=== PATIENT | female | born 1935 | race Caucasian/White ===

== ENCOUNTER 2016-08-27 13:22 | Observation (INO) | payer MEDICARE, OTHER ==
[2016-08-27] MEDS ORDERED: IBUPROFEN 800 MG TABLET PO ONE (14:08)
[2016-08-27 16:06] LABS: HEMATOCRIT 52.9 % (36.0-47.0); HEMOGLOBIN 16.7 g/dL (12.0-15.5); HGB HCT DIFFERENCE -2.8; MEAN CORPUSCULAR HGB CONC 31.6 g/dL (32.0-36.0); RED CELL DISTRIBUTION WIDTH 27.8 % (11.5-14.0)
[2016-08-27 16:19] LABS: ALANINE AMINOTRANSFERASE 37 U/L (9-52); ALBUMIN 3.4 g/dL (3.5-5.0); ALKALINE PHOSPHATASE 206 U/L (38-126); ANION GAP 12 (5-19); ASPARTATE AMINO TRANSFERASE 27 U/L (14-36); BLOOD UREA NITROGEN 18 mg/dL (7-20); CALCIUM 9.1 mg/dL (8.4-10.2); CARBON DIOXIDE 24 mmol/L (22-30); CHLORIDE 102 mmol/L (98-107); CREATININE RESULT 1.03 mg/dL (0.52-1.25); GLUCOSE 281 mg/dL (75-110); POTASSIUM 5.1 mmol/L (3.6-5.0); SODIUM 137.5 mmol/L (137-145)
[2016-08-27 16:40] LABS: RED BLOOD COUNT 7.59 10^6/uL (3.72-5.28)
[2016-08-27 16:41] LABS: MEAN CORPUSCULAR VOLUME 70 fl (80-97)
[2016-08-27 16:48] LABS: BAND NEUTROPHILS % (MANUAL) 5 % (3-5); BASOPHILS % (MANUAL) 0 % (0-2); EOSINOPHILS % (MANUAL) 1 % (0-6); LYMPHOCYTES % (MANUAL) 4 % (13-45); TOTAL CELLS COUNTED 100
[2016-08-27 16:52] LABS: ANISOCYTOSIS 3+; MICROCYTOSIS 2+; OVALOCYTES SLIGHT; POIKILOCYTOSIS SLIGHT; TOXIC VACUOLATION PRESENT
[2016-08-27 16:56] LABS: WHITE BLOOD COUNT 30.7 10^3/uL (4.0-10.5)
[2016-08-27 16:58] LABS: POLYCHROMASIA SLIGHT
[2016-08-27 17:01] LABS: APPEARANCE,URINE TURBID; BILIRUBIN,URINE NEGATIVE (NEGATIVE); GLUCOSE, URINE 150 mg/dL (NEGATIVE); KETONES,URINE NEGATIVE (NEGATIVE); LEUKOCYTE ESTERASE,URINE MODERATE (NEGATIVE); NITRITE,URINE NEGATIVE (NEGATIVE); PROTEIN,URINE 100 mg/dL (NEGATIVE); URINE SPECIFIC GRAVITY 1.016; UROBILINOGEN,URINE NEGATIVE mg/dL (<2.0)
[2016-08-27] MEDS ORDERED: ERTAPENEM SODIUM INJ 1 GM VIAL IV ONE (17:04)
[2016-08-27] MEDS ORDERED: NORMAL SALINE 1000 ML 1,000 ML IV ONE ×2 (17:04→17:18)
--- NOTE | 2016-08-27 17:07 | ER Document Report ---
ED General - General Chief Complaint: Urinary Problem Stated Complaint: PAINFUL URINATION Mode of Arrival: Medic Information source: Patient Notes: Patient presents to the emergency department with reports of pain with void that started yesterday. She reports she's vomited 3 times today. Denies diarrhea. She reports she woke up on the couch this morning is not sure how she got there. Patient has a history of stroke and diabetes cardiac disease. She denies cough chest pain shortness of breath. Patient reports that she has a history of sepsis when she has a UTI. TRAVEL OUTSIDE OF THE [place] IN LAST 30 DAYS: No - HPI Quality of pain: Achy, Burning Severity: Severe Pain Level: 4 Associated symptoms: Nausea, Vomiting Exacerbated by: Denies Relieved by: Denies Similar symptoms previously: Yes Recently seen / treated by doctor: No - Related Data Allergies/Adverse Reactions: amoxicillin Allergy (Intermediate, Verified 08/27/16 15:13) Penicillins Allergy (Verified 08/27/16 15:13) Past Medical History - General Information source: Patient - Social History Smoking Status: Unknown if Ever Smoked Cigarette use (# per day): No Chew tobacco use (# tins/day): No Frequency of alcohol use: None Drug Abuse: None Lives with: Family - Daughter Family History: Reviewed & Not Pertinent, DM, Hypertension, Malignancy - Father with lung cancer, Other - Past Medical History Cardiac Medical History: Reports: Hx Congestive Heart Failure - reports an acute episode previously, unsure of year, Hx Heart Attack - EKG suggests probable prior infarction, Hx Hypercholesterolemia, Hx Hypertension Endocrine Medical History: Reports: Hx Diabetes Mellitus Type 1, Hx Diabetes Mellitus Type 2 Renal/ Medical History: Denies: Hx End Stage Renal Disease GI Medical History: Reports: Hx Gastroesophageal Reflux Disease Musculoskeltal Medical History: Reports Hx Arthritis, Reports Hx Musculoskeletal Deformity Psychiatric Medical History: Reports: Hx Anxiety, Hx Depression Past Surgical History: Reports: Hx Abdominal Surgery, Hx Appendectomy, Hx Hysterectomy, Hx Tonsillectomy - Immunizations Hx Diphtheria, Pertussis, Tetanus Vaccination: No Hx Pneumococcal Vaccination: 04/29/13 Review of Systems - Review of Systems Notes: Review HPI for review of systems., All other systems negative Physical Exam - Vital signs Vitals: Temp Pulse Resp BP Pulse Ox 97.8 F 78 16 135/69 H 96 08/27/16 13:53 08/27/16 13:53 08/27/16 13:53 08/27/16 13:53 08/27/16 13:53 - Notes Notes: PHYSICAL EXAMINATION: GENERAL: Well-appearing and in no acute distress Nontoxic looking HEAD: Atraumatic, normocephalic. EYES: Pupils equal round extraocular movements intact, sclera anicteric, conjunctiva are normal. ENT: nares patent, oropharynx clear Moist mucous membranes. NECK: Normal range of motion, supple without lymphadenopathy LUNGS: CTAB and equal. No wheezes rales or rhonchi. HEART: Regular rate and rhythm without murmurs ABDOMEN: Soft, c/o some tenderness to palpation to LLQ No guarding, no rebound BACK: Denies pain EXTREMITIES: Normal range of motion, no pitting edema. No cyanosis. NEUROLOGICAL: Cranial nerves grossly intact. Normal sensory/motor exams. ambulates without problem PSYCH: Normal mood, normal affect. SKIN: Warm, Dry, normal turgor, no rashes or lesions noted Course - Re-evaluation Re-evalutation: 08/27/16 17:15 Patient's white count 30.7 no further vomiting. Patient reports her headache is gone. Contacted Dr. Celis for admission. He agrees to admission on telemetry. Rocephin IV ordered and fluids. Patient and daughter informed of admission and agree. - Vital Signs Vital signs: Temp Pulse Resp BP Pulse Ox 97.8 F 78 16 135/69 H 96 08/27/16 13:53 08/27/16 13:53 08/27/16 13:53 08/27/16 13:53 08/27/16 13:53 - Laboratory Result Diagrams: 08/27/16 15:50 08/27/16 15:50 Laboratory results interpreted by me: 08/27/16 08/27/16 08/27/16 15:00 15:50 15:50 WBC 30.7 H* RBC 7.59 H Hgb 16.7 H Hct 52.9 H MCV 70 L D MCH 22.0 L MCHC 31.6 L RDW 27.8 H Seg Neuts % (Manual) 86 H Lymphocytes % (Manual) 4 L Monocytes % (Manual) 2 L Abs Neuts (Manual) 27.9 H Potassium 5.1 H Est GFR (Non-Af Amer) 51 L Glucose 281 H Alkaline Phosphatase 206 H Albumin 3.4 L Urine Protein 100 H Urine Glucose (UA) 150 H Urine Blood SMALL H Ur Leukocyte Esterase MODERATE H - EKG Interpretation by Ms EKG shows normal: Sinus rhythm Discharge - Discharge Clinical Impression: UTI (urinary tract infection) Qualifiers: Urinary tract infection type: acute cystitis Hematuria presence: with hematuria Qualified Code(s): N30.01 - Acute cystitis with hematuria Condition: Stable Disposition: ADMITTED INPATIENT [facility] Unit Admitted: Telemetry
[2016-08-27] MEDS ORDERED: CEFTRIAXONE RTU 1 GM/D5W 50 ML IV ONE (17:10)
[2016-08-27] MEDS ORDERED: GLUCAGON,HUMAN RECOMB 1 MG INJ IM PRN (17:26)
[2016-08-27] MEDS ORDERED: ONDANSETRON HCL INJ/PF 4 MG/2 ML SDV IV PRN (17:26)
[2016-08-27] MEDS ORDERED: DEXTROSE 50%-WATER 25 GM/50 ML DISP.SYRIN IV PRN ×2 (17:26)
[2016-08-27] MEDS ORDERED: ACETAMINOPHEN 325 MG TABLET PO PRN (17:26)
[2016-08-27] MEDS ORDERED: DEXTROSE 40% GEL 15 GM TUBE PO PRN ×2 (17:26)
[2016-08-27] MEDS ORDERED: IMIPENEM/CILASTATIN SODIUM 1,000 MG in NORMAL SALINE 250 ML IV SCH (18:00)
[2016-08-27] MEDS ORDERED: ENOXAPARIN SODIUM INJ 40 MG/0.4 ML DISP.SYRIN SUBCUT ONE (18:00)
--- NOTE | 2016-08-27 18:02 | PDOC H&P ---
History of Present Illness Admission Date/PCP: 08/27/16 17:33 Dr. Rivera Patient complains of: Dysuria History of Present Illness: ORACIO PEDROZA is a 81 year old female with past medical history of recurrent urinary tract infections that presents with several days dysuria, polyuria. Patient was treated in June of this year for ESBL Escherichia coli urinary tract infection. Of note patient was also recently hospitalized at [facility] for stroke. She has very little deficits from the stroke. After this hospitalization she had a loop recorder placed by cardiology in [facility]. Patient also has chronic leukocytosis over the past 1-2 years. She is currently being followed by Dr. Mercer of hematology/oncology for this issue. Past Medical History Cardiac Medical History: Reports: Congestive Heart Failure - reports an acute episode previously, unsure of year, Myocardial Infarction - EKG suggests probable prior infarction, Hyperlipidema, Hypertension Neurological Medical History: Reports: Ischemic CVA Endocrine Medical History: Reports: Diabetes Mellitus Type 1 Renal/ Medical History: Denies: End Stage Renal Disease GI Medical History: Reports: Gastroesophageal Reflux Disease Musculoskeltal Medical History: Reports: Arthritis Psychiatric Medical History: Reports: Depression Hematology: Reports: Other - Chronic leukocytosis Infectious Medical History: Reports: Other - ESBL Escherichia coli Past Surgical History Past Surgical History: Reports: Appendectomy, Hysterectomy, Tonsillectomy, Other - Cardiac loop recorder Social History Information Source: Patient Lives with: Family - Daughter Smoking Status: Unknown if Ever Smoked Frequency of Alcohol Use: None Hx Recreational Drug Use: No Drugs: None Hx Prescription Drug Abuse: No - Advance Directive Resuscitation Status: Full Code Family History Family History: DM, Hypertension, Malignancy - Father with lung cancer, Other Parental Family History Reviewed: Yes Children Family History Reviewed: Yes Sibling(s) Family History Reviewed.: Yes Medication/Allergy Home Medications: Hum Insulin NPH/Reg Insulin Hm [Insulin 70-30 (NPH/Reg) 100 unit/mL] 85 unit SUBCUT BID 08/13/12 Aspirin [Aspirin 81 mg Chewable Tablet] 81 mg PO DAILY 05/19/14 Citalopram Hydrobromide [Celexa 20 mg Tablet] 40 mg PO DAILY 05/19/14 Sitagliptin Phosphate [Januvia] 100 mg PO DAILY 07/15/16 Trazodone HCl 50 mg PO QHS 07/15/16 Docusate Sodium [Colace 100 mg Capsule] 100 mg PO BID #0 capsule 07/20/16 Gabapentin [Neurontin 300 mg Capsule] 300 mg PO Q12 #0 capsule 07/20/16 Losartan Potassium [Cozaar 25 mg Tablet] 50 mg PO Q12 #0 tablet 07/20/16 Metoprolol Tartrate [Lopressor 100 mg Tablet] 100 mg PO Q12 #0 tablet 07/20/16 Allergies/Adverse Reactions: amoxicillin Allergy (Intermediate, Verified 08/27/16 15:13) Penicillins Allergy (Verified 08/27/16 15:13) Review of Systems Constitutional: ABSENT: chills, fever(s), headache(s), weight gain, weight loss Eyes: ABSENT: visual disturbances Ears: ABSENT: hearing changes Cardiovascular: ABSENT: chest pain, dyspnea on exertion, edema, orthropnea, palpitations Respiratory: ABSENT: cough, hemoptysis Gastrointestinal: ABSENT: abdominal pain, constipation, diarrhea, hematemesis, hematochezia, nausea, vomiting Genitourinary: PRESENT: difficulty urinating, dysuria. ABSENT: hematuria Musculoskeletal: ABSENT: joint swelling Integumentary: ABSENT: rash, wounds Neurological: ABSENT: abnormal gait, abnormal speech, confusion, dizziness, focal weakness, syncope Psychiatric: ABSENT: anxiety, depression, homidical ideation, suicidal ideation Endocrine: PRESENT: polyuria. ABSENT: cold intolerance, heat intolerance, polydipsia Hematologic/Lymphatic: ABSENT: easy bleeding, easy bruising Physical Exam Vital Signs: Temp Pulse Resp BP Pulse Ox 97.8 F 78 16 135/69 H 96 08/27/16 13:53 08/27/16 13:53 08/27/16 13:53 08/27/16 13:53 08/27/16 13:53 PHYSICAL EXAM: GENERAL: Appears well, no acute distress HEENT: Normocephalic, no scleral icterus, conjunctiva clear, EOEM intact, PERRLA , moist mucous membranes NECK: trachea midline, no thyromegally RESPIRATORY: Clear to auscultation, no wheezes/rhonchi CARDIAC: Regular rate and rhythm, no murmur/jimbo/rub ABDOMEN: Soft, no distension, no tenderness, no guarding, normal bowel sounds, negative Hodge sign RECTAL: deferred : deferred EXTREMITIES: No edema, cyanosis, clubbing MUSCULOSKELETAL: No joint swelling or deformity VASCULAR: normal peripheral pulses NEUROLOGIC: Alert, oriented to person/place/time, normal speech, cranial nerves grossly intact, 5/5 strength in all extremities, tactile sensation intact in all extremities SKIN: No rash, no wounds, no worrisome skin lesions PSYCHIATRIC: Normal mood, normal affect Results Laboratory Results: Labs- All tests 24 hr 08/27/16 08/27/16 08/27/16 14:27 14:27 14:27 WBC Cancelled RBC Cancelled Hgb Cancelled Hct Cancelled MCV Cancelled MCH Cancelled MCHC Cancelled RDW Cancelled Plt Count Cancelled Total Counted Seg Neutrophils % Cancelled Seg Neuts % (Manual) Band Neutrophils % Lymphocytes % Cancelled Lymphocytes % (Manual) Atypical Lymphs % Monocytes % Cancelled Monocytes % (Manual) Eosinophils % Cancelled Eosinophils % (Manual) Basophils % Cancelled Basophils % (Manual) Absolute Neutrophils Cancelled Abs Neuts (Manual) Absolute Lymphocytes Cancelled Abs Lymphs (Manual) Absolute Monocytes Cancelled Abs Monocytes (Manual) Absolute Eosinophils Cancelled Absolute Eos (Manual) Absolute Basophils Cancelled Abs Basophils (Manual) Toxic Vacuolation Platelet Estimate Cancelled Large Platelets Platelet Comment Polychromasia Poikilocytosis Anisocytosis Microcytosis Ovalocytes Sodium Cancelled Potassium Cancelled Chloride Cancelled Carbon Dioxide Cancelled Anion Gap Cancelled BUN Cancelled Creatinine Cancelled Est GFR ( Amer) Cancelled Est GFR (Non-Af Amer) Cancelled Glucose Cancelled Lactic Acid 1.6 Calcium Cancelled Total Bilirubin Cancelled Direct Bilirubin Cancelled AST Cancelled ALT Cancelled Alkaline Phosphatase Cancelled Total Protein Cancelled Albumin Cancelled Urine Color Urine Appearance Urine pH Ur Specific [place] Urine Protein Urine Glucose (UA) Urine Ketones Urine Blood Urine Nitrite Urine Bilirubin Urine Urobilinogen Ur Leukocyte Esterase Urine WBC (Auto) Urine RBC (Auto) Urine Bacteria (Auto) Urine WBC Clumps Squamous Epi Cells Auto U Non-Squamous Epis Auto Urine Mucus (Auto) Urine Ascorbic Acid Slides for Path Review Cancelled 08/27/16 08/27/16 08/27/16 15:00 15:50 15:50 WBC 30.7 H* RBC 7.59 H Hgb 16.7 H Hct 52.9 H MCV 70 L D MCH 22.0 L MCHC 31.6 L RDW 27.8 H Plt Count 321 Total Counted 100 Seg Neutrophils % Not Reportable Seg Neuts % (Manual) 86 H Band Neutrophils % 5 Lymphocytes % Not Reportable Lymphocytes % (Manual) 4 L Atypical Lymphs % 2 Monocytes % Not Reportable Monocytes % (Manual) 2 L Eosinophils % Not Reportable Eosinophils % (Manual) 1 Basophils % Not Reportable Basophils % (Manual) 0 Absolute Neutrophils Not Reportable Abs Neuts (Manual) 27.9 H Absolute Lymphocytes Not Reportable Abs Lymphs (Manual) 1.8 Absolute Monocytes Not Reportable Abs Monocytes (Manual) 0.6 Absolute Eosinophils Not Reportable Absolute Eos (Manual) 0.3 Absolute Basophils Not Reportable Abs Basophils (Manual) 0.0 Toxic Vacuolation PRESENT Platelet Estimate Large Platelets PRESENT Platelet Comment ADEQUATE Polychromasia SLIGHT Poikilocytosis SLIGHT Anisocytosis 3+ Microcytosis 2+ Ovalocytes SLIGHT Sodium 137.5 Potassium 5.1 H Chloride 102 Carbon Dioxide 24 Anion Gap 12 BUN 18 Creatinine 1.03 Est GFR ( Amer) > 60 Est GFR (Non-Af Amer) 51 L Glucose 281 H Lactic Acid Calcium 9.1 Total Bilirubin 1.0 Direct Bilirubin 0.0 AST 27 ALT 37 Alkaline Phosphatase 206 H Total Protein 7.0 Albumin 3.4 L Urine Color YELLOW Urine Appearance TURBID Urine pH 5.0 Ur Specific [place] 1.016 Urine Protein 100 H Urine Glucose (UA) 150 H Urine Ketones NEGATIVE Urine Blood SMALL H Urine Nitrite NEGATIVE Urine Bilirubin NEGATIVE Urine Urobilinogen NEGATIVE Ur Leukocyte Esterase MODERATE H Urine WBC (Auto) >182 Urine RBC (Auto) >182 Urine Bacteria (Auto) 2+ Urine WBC Clumps MANY Squamous Epi Cells Auto 17 U Non-Squamous Epis Auto 4 Urine Mucus (Auto) OCC Urine Ascorbic Acid NEGATIVE Slides for Path Review Assessment & Plan - Diagnosis (1) UTI (urinary tract infection) Qualifiers: Urinary tract infection type: acute cystitis Hematuria presence: with hematuria Qualified Code(s): N30.01 - Acute cystitis with hematuria Is this a current diagnosis for this admission?: YesPlan: Given patient's relatively recent ESBL Escherichia coli UTI I would like to admit her to the hospital and start her on IV imipenem pending further urine culture. (2) Leukocytosis Is this a current diagnosis for this admission?: YesPlan: This is chronic and being followed by Dr. Mercer of hematology/oncology. (3) Diabetes Qualifiers: Diabetes mellitus type: type 1 Is this a current diagnosis for this admission?: YesPlan: Continue 70/30 insulin but decrease to 60 units twice daily. Continue Januvia. Sliding scale insulin. Patient is overall poorly controlled as indicated by recent A1c of 10.1. (4) History of CVA (cerebrovascular accident) Is this a current diagnosis for this admission?: YesPlan: Patient has little functional deficit from this. Apparently she has had a loop recorder placed by cardiology in [place] to rule out transient dysrhythmia as potential cause. (5) Cholelithiasis Qualifiers: Cholelithiasis location: gallbladder Cholecystitis presence: without cholecystitis Biliary obstruction: without biliary obstruction Qualified Code(s): K80.20 - Calculus of gallbladder without cholecystitis without obstruction Is this a current diagnosis for this admission?: YesPlan: Asymptomatic at this time. (6) Chronic constipation Is this a current diagnosis for this admission?: Yes (7) Diastolic CHF Qualifiers: Congestive heart failure chronicity: chronic Qualified Code(s): I50.32 - Chronic diastolic (congestive) heart failure Is this a current diagnosis for this admission?: YesPlan: Chronic/compensated. (8) DNR (do not resuscitate) Is this a current diagnosis for this admission?: Yes (9) HTN (hypertension) Qualifiers: Hypertension type: essential hypertension Qualified Code(s): I10 - Essential (primary) hypertension Is this a current diagnosis for this admission?: Yes - Time Time Spent: Greater than 70 Minutes
[2016-08-27] MEDS: HUM INSULIN NPH/REG INSULIN HM 100 UNIT/1 ML 3 ML SUBCUT SCH (18:25)
[2016-08-27] MEDS: DOCUSATE SODIUM 100 MG CAPSULE PO SCH (18:25)
[2016-08-27] MEDS: IMIPENEM/CILASTATIN SODIUM 500 MG in NORMAL SALINE 100 ML IV SCH ×2 (20:34→23:23)
--- NOTE | 2016-08-27 21:06 | EKG REPORT ---
SEVERITY:- ABNORMAL ECG - SINUS RHYTHM PROBABLE INFERIOR INFARCT, OLD ANTERIOR INFARCT, AGE INDETERMINATE BORDERLINE PROLONGED QT INTERVAL : Confirmed by: Adam Bah MD 27-Aug-2016 21:06:13
[2016-08-27] MEDS ORDERED: LOSARTAN POTASSIUM 25 MG TABLET PO SCH (22:00)
[2016-08-27] MEDS: GABAPENTIN 300 MG CAPSULE PO SCH (23:21)
[2016-08-27] MEDS: LOSARTAN POTASSIUM 50 MG TABLET PO SCH (23:23)
[2016-08-27] MEDS: METOPROLOL TARTRATE 100 MG TABLET PO SCH (23:23)
[2016-08-27] MEDS: TRAZODONE HCL 50 MG TABLET PO SCH (23:23)
[2016-08-27] MEDS: INSULIN LISPRO 100 UNIT/ML 3 ML VIAL SUBCUT PRN (23:24)
[2016-08-28 06:19] LABS: HEMATOCRIT 50.8 % (36.0-47.0); HEMOGLOBIN 15.8 g/dL (12.0-15.5); HGB HCT DIFFERENCE -3.4; MEAN CORPUSCULAR HEMOGLOBIN 21.8 pg (27.0-33.4); MEAN CORPUSCULAR HGB CONC 31.1 g/dL (32.0-36.0); MEAN CORPUSCULAR VOLUME 70 fl (80-97); WHITE BLOOD COUNT 26.3 10^3/uL (4.0-10.5)
[2016-08-28] MEDS: IMIPENEM/CILASTATIN SODIUM 500 MG in NORMAL SALINE 100 ML IV SCH ×3 (06:22→17:39)
[2016-08-28 06:33] LABS: ANION GAP 10 (5-19); BLOOD UREA NITROGEN 24 mg/dL (7-20); CARBON DIOXIDE 23 mmol/L (22-30); CHLORIDE 107 mmol/L (98-107); CREATININE RESULT 1.15 mg/dL (0.52-1.25); GLUCOSE 208 mg/dL (75-110); POTASSIUM 4.6 mmol/L (3.6-5.0); SODIUM 140.1 mmol/L (137-145)
[2016-08-28 07:09] LABS: RED BLOOD COUNT 7.26 10^6/uL (3.72-5.28)
[2016-08-28] MEDS: ENOXAPARIN SODIUM INJ 40 MG/0.4 ML DISP.SYRIN SUBCUT SCH (07:36)
[2016-08-28] MEDS: INSULIN LISPRO 100 UNIT/ML 3 ML VIAL SUBCUT PRN ×3 (07:36→22:18)
--- NOTE | 2016-08-28 09:54 | PDOC PROGRESS REPORT ---
Subjective Progress Note for:: 08/28/16 Subjective:: Patient complains of intermittent lower abdominal discomfort. Patient denies fever, chills, headache, new focal weakness, chest pain, shortness of breath, nausea, vomiting, diarrhea, constipation. Physical Exam Vital Signs: Temp Pulse Resp BP Pulse Ox 98.3 F 90 20 173/68 H 97 08/28/16 07:58 08/28/16 07:58 08/28/16 07:58 08/28/16 07:58 08/28/16 07:58 Intake & Output 08/27/16 08/28/16 08/29/16 06:59 06:59 06:59 Intake Total 400 Balance 400 Weight 100 kg GENERAL: No acute distress HEENT: Conjunctiva clear, nonicteric, moist mucous membranes, no JVD, midline trachea RESPIRATORY: Clear to auscultation bilaterally, no wheezes, no rhonchi CARDIAC: Regular rate and rhythm, no murmurs/gallops/rubs ABDOMEN: Soft, nondistended, suprapubic tenderness, positive bowel sounds, no rebound, no guarding EXTREMETIES: No edema, cyanosis, clubbing NEUROLOGIC: Alert, oriented to person/place/time, CN's grossly intact, no focal deficits SKIN: No rash, wounds PSYCH: Normal mood, normal affect Results Laboratory Results: 08/28/16 05:28 08/28/16 05:28 08/28/16 08/28/16 05:28 05:28 WBC 26.3 H RBC 7.26 H Hgb 15.8 H Hct 50.8 H MCV 70 L MCH 21.8 L MCHC 31.1 L RDW 28.0 H Plt Count 282 Sodium 140.1 Potassium 4.6 Chloride 107 Carbon Dioxide 23 Anion Gap 10 BUN 24 H Creatinine 1.15 Est GFR ( Amer) 55 L Est GFR (Non-Af Amer) 45 L Glucose 208 H Calcium 9.0 Assessment & Plan - Diagnosis (1) UTI (urinary tract infection) Qualifiers: Urinary tract infection type: acute cystitis Hematuria presence: with hematuria Qualified Code(s): N30.01 - Acute cystitis with hematuria Is this a current diagnosis for this admission?: YesPlan: Given patient's relatively recent ESBL Escherichia coli UTI WE WILL CONTINUE IV imipenem pending further urine culture. (2) Leukocytosis Is this a current diagnosis for this admission?: YesPlan: This is chronic and being followed by Dr. Mercer of hematology/oncology. Improved from admission with treatment of UTI. (3) Diabetes Qualifiers: Diabetes mellitus type: type 1 Is this a current diagnosis for this admission?: YesPlan: Continue 70/30 insulin 60 units twice daily (usual home dose 85 units twice daily). Continue Januvia. Sliding scale insulin. Patient is overall poorly controlled as indicated by recent A1c of 10.1. (4) History of CVA (cerebrovascular accident) Is this a current diagnosis for this admission?: YesPlan: Patient has little functional deficit from this. Apparently she has had a loop recorder placed by cardiology in [place] to rule out transient dysrhythmia as potential cause. (5) Cholelithiasis Qualifiers: Cholelithiasis location: gallbladder Cholecystitis presence: without cholecystitis Biliary obstruction: without biliary obstruction Qualified Code(s): K80.20 - Calculus of gallbladder without cholecystitis without obstruction Is this a current diagnosis for this admission?: YesPlan: Asymptomatic at this time. (6) Chronic constipation Is this a current diagnosis for this admission?: Yes (7) Diastolic CHF Qualifiers: Congestive heart failure chronicity: chronic Qualified Code(s): I50.32 - Chronic diastolic (congestive) heart failure Is this a current diagnosis for this admission?: YesPlan: Chronic/compensated. (8) HTN (hypertension) Qualifiers: Hypertension type: essential hypertension Qualified Code(s): I10 - Essential (primary) hypertension Is this a current diagnosis for this admission?: Yes (9) Full code status Is this a current diagnosis for this admission?: YesPlan: CODE STATUS was readdressed with patient and daughter. Full CODE STATUS desired. - Time Time Spent with patient: 25-34 minutes
[2016-08-28] MEDS: GABAPENTIN 300 MG CAPSULE PO SCH ×2 (10:43→22:17)
[2016-08-28] MEDS: HUM INSULIN NPH/REG INSULIN HM 100 UNIT/1 ML 3 ML SUBCUT SCH ×2 (10:43→17:39)
[2016-08-28] MEDS: CITALOPRAM HYDROBROMIDE 20 MG TABLET PO SCH (10:44)
[2016-08-28] MEDS: SITAGLIPTIN PHOSPHATE 50 MG TABLET PO SCH (10:44)
[2016-08-28] MEDS: METOPROLOL TARTRATE 100 MG TABLET PO SCH ×2 (10:44→22:17)
[2016-08-28] MEDS: ASPIRIN 81 MG TABLET, CHEWABLE PO SCH (10:44)
[2016-08-28] MEDS: LOSARTAN POTASSIUM 50 MG TABLET PO SCH ×2 (10:45→22:17)
[2016-08-28] MEDS: DOCUSATE SODIUM 100 MG CAPSULE PO SCH ×2 (10:45→17:39)
[2016-08-28] MEDS: TRAZODONE HCL 50 MG TABLET PO SCH (22:17)
[2016-08-29] MEDS: IMIPENEM/CILASTATIN SODIUM 500 MG in NORMAL SALINE 100 ML IV SCH ×4 (00:18→17:06)
[2016-08-29 07:43] LABS: HEMATOCRIT 50.8 % (36.0-47.0); HEMOGLOBIN 15.7 g/dL (12.0-15.5); HGB HCT DIFFERENCE -3.7; MEAN CORPUSCULAR HEMOGLOBIN 21.7 pg (27.0-33.4); MEAN CORPUSCULAR HGB CONC 30.8 g/dL (32.0-36.0); MEAN CORPUSCULAR VOLUME 71 fl (80-97); RED CELL DISTRIBUTION WIDTH 27.8 % (11.5-14.0); WHITE BLOOD COUNT 26.5 10^3/uL (4.0-10.5)
[2016-08-29 07:49] LABS: BLOOD UREA NITROGEN 21 mg/dL (7-20); CALCIUM 10.1 mg/dL (8.4-10.2); CREATININE RESULT 0.99 mg/dL (0.52-1.25); GLUCOSE 251 mg/dL (75-110)
[2016-08-29 07:50] LABS: ANION GAP 11 (5-19); CARBON DIOXIDE 24 mmol/L (22-30); CHLORIDE 105 mmol/L (98-107); SODIUM 140.4 mmol/L (137-145)
[2016-08-29 08:02] LABS: RED BLOOD COUNT 7.22 10^6/uL (3.72-5.28)
[2016-08-29 08:06] LABS: BAND NEUTROPHILS % (MANUAL) 10 % (3-5); BASOPHILS % (MANUAL) 2 % (0-2); EOSINOPHILS % (MANUAL) 0 % (0-6); LYMPHOCYTES % (MANUAL) 5 % (13-45); TOTAL CELLS COUNTED 100
[2016-08-29 08:08] LABS: ANISOCYTOSIS 2+; HYPOCHROMASIA 1+; MICROCYTOSIS 2+; OVALOCYTES SLIGHT; POIKILOCYTOSIS 1+; TEAR DROP CELLS SLIGHT
[2016-08-29] MEDS: ENOXAPARIN SODIUM INJ 40 MG/0.4 ML DISP.SYRIN SUBCUT SCH (08:22)
[2016-08-29] MEDS: INSULIN LISPRO 100 UNIT/ML 3 ML VIAL SUBCUT PRN ×3 (08:27→16:14)
[2016-08-29] MEDS: METOPROLOL TARTRATE 100 MG TABLET PO SCH ×2 (09:34→21:36)
[2016-08-29] MEDS: CITALOPRAM HYDROBROMIDE 20 MG TABLET PO SCH (09:35)
[2016-08-29] MEDS: SITAGLIPTIN PHOSPHATE 50 MG TABLET PO SCH (09:35)
[2016-08-29] MEDS: GABAPENTIN 300 MG CAPSULE PO SCH ×2 (09:35→21:37)
[2016-08-29] MEDS: DOCUSATE SODIUM 100 MG CAPSULE PO SCH ×2 (09:35→17:02)
[2016-08-29] MEDS: ASPIRIN 81 MG TABLET, CHEWABLE PO SCH (09:35)
[2016-08-29] MEDS: LOSARTAN POTASSIUM 50 MG TABLET PO SCH ×2 (09:36→21:36)
[2016-08-29] MEDS: HUM INSULIN NPH/REG INSULIN HM 100 UNIT/1 ML 3 ML SUBCUT SCH ×2 (10:41→17:02)
--- NOTE | 2016-08-29 12:34 | PDOC PROGRESS REPORT ---
Subjective Progress Note for:: 08/29/16 Subjective:: Patient complains of rash under both breasts and pannus. Patient denies fever, chills, headache, new focal weakness, chest pain, shortness of breath, nausea, vomiting, diarrhea, constipation. Physical Exam Vital Signs: Temp Pulse Resp BP Pulse Ox 98.0 F 82 16 124/67 95 08/29/16 05:34 08/29/16 07:00 08/29/16 05:34 08/29/16 05:34 08/29/16 05:34 Intake & Output 08/28/16 08/29/16 08/30/16 06:59 06:59 06:59 Intake Total 400 2498 Balance 400 2498 Weight 100 kg 103.1 kg GENERAL: No acute distress HEENT: Conjunctiva clear, nonicteric, moist mucous membranes, no JVD, midline trachea RESPIRATORY: Clear to auscultation bilaterally, no wheezes, no rhonchi CARDIAC: Regular rate and rhythm, no murmurs/gallops/rubs ABDOMEN: Soft, nondistended, nontender, positive bowel sounds, no rebound, no guarding EXTREMETIES: No edema, cyanosis, clubbing NEUROLOGIC: Alert, oriented to person/place/time, CN's grossly intact, no focal deficits SKIN: Erythematous rash under both breasts PSYCH: Normal mood, normal affect Results Laboratory Results: 08/29/16 06:46 08/29/16 06:46 08/29/16 08/29/16 06:46 06:46 WBC 26.5 H RBC 7.22 H Hgb 15.7 H Hct 50.8 H MCV 71 L MCH 21.7 L MCHC 30.8 L RDW 27.8 H Plt Count 263 Seg Neutrophils % Not Reportable Lymphocytes % Not Reportable Monocytes % Not Reportable Eosinophils % Not Reportable Basophils % Not Reportable Absolute Neutrophils Not Reportable Absolute Lymphocytes Not Reportable Absolute Monocytes Not Reportable Absolute Eosinophils Not Reportable Absolute Basophils Not Reportable Sodium 140.4 Potassium 5.0 Chloride 105 Carbon Dioxide 24 Anion Gap 11 BUN 21 H Creatinine 0.99 Est GFR ( Amer) > 60 Est GFR (Non-Af Amer) 54 L Glucose 251 H Calcium 10.1 Assessment & Plan - Diagnosis (1) UTI (urinary tract infection) Qualifiers: Urinary tract infection type: acute cystitis Hematuria presence: with hematuria Qualified Code(s): N30.01 - Acute cystitis with hematuria Is this a current diagnosis for this admission?: YesPlan: Given patient's relatively recent ESBL Escherichia coli. Continue IV imipenem pending further urine culture. (2) Leukocytosis Is this a current diagnosis for this admission?: YesPlan: This is chronic and being followed by Dr. Mercer of hematology/oncology. Improved from admission with treatment of UTI. (3) Diabetes Qualifiers: Diabetes mellitus type: type 1 Is this a current diagnosis for this admission?: YesPlan: Increase 70/30 insulin to 70 units twice daily (usual home dose 85 units twice daily). Continue Januvia. Sliding scale insulin. Patient is overall poorly controlled as indicated by recent A1c of 10.1. (4) History of CVA (cerebrovascular accident) Is this a current diagnosis for this admission?: YesPlan: Patient has little functional deficit from this. Apparently she has had a loop recorder placed by cardiology in [place] to rule out transient dysrhythmia as potential cause. (5) Cholelithiasis Qualifiers: Cholelithiasis location: gallbladder Cholecystitis presence: without cholecystitis Biliary obstruction: without biliary obstruction Qualified Code(s): K80.20 - Calculus of gallbladder without cholecystitis without obstruction Is this a current diagnosis for this admission?: YesPlan: Asymptomatic at this time. (6) Chronic constipation Is this a current diagnosis for this admission?: Yes (7) Diastolic CHF Qualifiers: Congestive heart failure chronicity: chronic Qualified Code(s): I50.32 - Chronic diastolic (congestive) heart failure Is this a current diagnosis for this admission?: YesPlan: Chronic/compensated. Continue metoprolol. Continue losartan. Patient does not take scheduled diuretics. (8) HTN (hypertension) Qualifiers: Hypertension type: essential hypertension Qualified Code(s): I10 - Essential (primary) hypertension Is this a current diagnosis for this admission?: Yes (9) Full code status Is this a current diagnosis for this admission?: Yes (10) Intertrigo Is this a current diagnosis for this admission?: YesPlan: Diabetes and antibiotics are contributing. Nystatin powder. - Time Time Spent with patient: 25-34 minutes
[2016-08-29] MEDS: NYSTATIN TOPICAL POWDER 15 GM TP SCH (17:02)
[2016-08-29] MEDS: TRAZODONE HCL 50 MG TABLET PO SCH (21:37)
[2016-08-30] MEDS: IMIPENEM/CILASTATIN SODIUM 500 MG in NORMAL SALINE 100 ML IV SCH ×3 (00:16→12:26)
[2016-08-30 07:08] LABS: HEMATOCRIT 49.8 % (36.0-47.0); HEMOGLOBIN 15.3 g/dL (12.0-15.5); HGB HCT DIFFERENCE -3.9; MEAN CORPUSCULAR HEMOGLOBIN 21.7 pg (27.0-33.4); MEAN CORPUSCULAR HGB CONC 30.8 g/dL (32.0-36.0); MEAN CORPUSCULAR VOLUME 71 fl (80-97); RED CELL DISTRIBUTION WIDTH 26.5 % (11.5-14.0); WHITE BLOOD COUNT 27.4 10^3/uL (4.0-10.5)
[2016-08-30 07:20] LABS: ANION GAP 11 (5-19); BLOOD UREA NITROGEN 22 mg/dL (7-20); CALCIUM 10.3 mg/dL (8.4-10.2); CARBON DIOXIDE 24 mmol/L (22-30); CHLORIDE 105 mmol/L (98-107); GLUCOSE 189 mg/dL (75-110); POTASSIUM 4.6 mmol/L (3.6-5.0); RED BLOOD COUNT 7.06 10^6/uL (3.72-5.28); SODIUM 139.7 mmol/L (137-145)
[2016-08-30 07:39] LABS: BAND NEUTROPHILS % (MANUAL) 2 % (3-5); BASOPHILS % (MANUAL) 0 % (0-2); EOSINOPHILS % (MANUAL) 0 % (0-6); LYMPHOCYTES % (MANUAL) 6 % (13-45); NUCLEATED RED BLOOD CELLS 1 /100 WBC (0); TOTAL CELLS COUNTED 100
[2016-08-30 07:40] LABS: ANISOCYTOSIS 3+; HYPOCHROMASIA 2+; MICROCYTOSIS 2+; OVALOCYTES SLIGHT; POIKILOCYTOSIS SLIGHT; POLYCHROMASIA SLIGHT
[2016-08-30] MEDS: ENOXAPARIN SODIUM INJ 40 MG/0.4 ML DISP.SYRIN SUBCUT SCH (08:14)
[2016-08-30] MEDS: INSULIN LISPRO 100 UNIT/ML 3 ML VIAL SUBCUT PRN ×3 (08:14→17:31)
[2016-08-30] MEDS: HUM INSULIN NPH/REG INSULIN HM 100 UNIT/1 ML 3 ML SUBCUT SCH ×2 (10:50→17:31)
[2016-08-30] MEDS: METOPROLOL TARTRATE 100 MG TABLET PO SCH ×2 (10:51→21:23)
[2016-08-30] MEDS: ASPIRIN 81 MG TABLET, CHEWABLE PO SCH (10:52)
[2016-08-30] MEDS: LOSARTAN POTASSIUM 50 MG TABLET PO SCH ×2 (10:52→21:22)
[2016-08-30] MEDS: GABAPENTIN 300 MG CAPSULE PO SCH ×2 (10:52→21:23)
[2016-08-30] MEDS: DOCUSATE SODIUM 100 MG CAPSULE PO SCH ×2 (10:52→17:32)
[2016-08-30] MEDS: SITAGLIPTIN PHOSPHATE 50 MG TABLET PO SCH (10:52)
[2016-08-30] MEDS: NYSTATIN TOPICAL POWDER 15 GM TP SCH ×2 (10:53→17:35)
[2016-08-30] MEDS: CITALOPRAM HYDROBROMIDE 20 MG TABLET PO SCH (10:53)
--- NOTE | 2016-08-30 14:28 | PDOC PROGRESS REPORT ---
Subjective Progress Note for:: 08/30/16 Subjective:: Patient complains of constipation. I have discussed her culture report with her and advised her that there are oral antibiotics that she can go home on if she would like to today. She declines going home today because she is constipated. Patient denies fever, chills, headache, new focal weakness, chest pain, shortness of breath, abdominal pain, nausea, vomiting, diarrhea. Physical Exam Vital Signs: Temp Pulse Resp BP Pulse Ox 98.3 F 75 18 143/84 H 97 08/30/16 08:00 08/30/16 08:00 08/30/16 08:00 08/30/16 08:00 08/30/16 08:00 Intake & Output 08/29/16 08/30/16 08/31/16 06:59 06:59 06:59 Intake Total 2498 2646 Balance 2498 2646 Weight 103.1 kg 105.9 kg GENERAL: No acute distress HEENT: Conjunctiva clear, nonicteric, moist mucous membranes, no JVD, midline trachea RESPIRATORY: Clear to auscultation bilaterally, no wheezes, no rhonchi CARDIAC: Regular rate and rhythm, no murmurs/gallops/rubs ABDOMEN: Soft, nondistended, nontender, positive bowel sounds, no rebound, no guarding EXTREMETIES: No edema, cyanosis, clubbing NEUROLOGIC: Alert, oriented to person/place/time, CN's grossly intact, no focal deficits SKIN: Erythematous rash under both breasts PSYCH: Normal mood, normal affect Results Laboratory Results: 08/30/16 06:40 08/30/16 06:40 08/30/16 08/30/16 06:40 06:40 WBC 27.4 H RBC 7.06 H Hgb 15.3 Hct 49.8 H MCV 71 L MCH 21.7 L MCHC 30.8 L RDW 26.5 H Plt Count 281 Seg Neutrophils % Not Reportable Lymphocytes % Not Reportable Monocytes % Not Reportable Eosinophils % Not Reportable Basophils % Not Reportable Absolute Neutrophils Not Reportable Absolute Lymphocytes Not Reportable Absolute Monocytes Not Reportable Absolute Eosinophils Not Reportable Absolute Basophils Not Reportable Sodium 139.7 Potassium 4.6 Chloride 105 Carbon Dioxide 24 Anion Gap 11 BUN 22 H Creatinine 0.90 Est GFR ( Amer) > 60 Est GFR (Non-Af Amer) > 60 Glucose 189 H Calcium 10.3 H Assessment & Plan - Diagnosis (1) UTI (urinary tract infection) Qualifiers: Urinary tract infection type: acute cystitis Hematuria presence: with hematuria Qualified Code(s): N30.01 - Acute cystitis with hematuria Is this a current diagnosis for this admission?: YesPlan: Patient is growing Escherichia coli susceptible to nitrofurantoin. I will discontinue imipenem and start patient on nitrofurantoin. She is stable to leave the hospital but states she does not want to leave today because she is constipated. (2) Leukocytosis Is this a current diagnosis for this admission?: YesPlan: This is chronic and being followed by Dr. Mercer of hematology/oncology. Improved from admission with treatment of UTI. Afebrile. Hemodynamically stable. (3) Diabetes Qualifiers: Diabetes mellitus type: type 1 Is this a current diagnosis for this admission?: YesPlan: Increase 70/30 insulin back to usual home dose of 85 units twice daily. Continue Januvia. Sliding scale insulin. Patient is overall poorly controlled as indicated by recent A1c of 10.1. (4) History of CVA (cerebrovascular accident) Is this a current diagnosis for this admission?: YesPlan: Patient has little functional deficit from this. Apparently she has had a loop recorder placed by cardiology in [place] to rule out transient dysrhythmia as potential cause. (5) Cholelithiasis Qualifiers: Cholelithiasis location: gallbladder Cholecystitis presence: without cholecystitis Biliary obstruction: without biliary obstruction Qualified Code(s): K80.20 - Calculus of gallbladder without cholecystitis without obstruction Is this a current diagnosis for this admission?: YesPlan: Asymptomatic at this time. (6) Chronic constipation Is this a current diagnosis for this admission?: YesPlan: Continue Colace. Add MiraLAX. (7) Diastolic CHF Qualifiers: Congestive heart failure chronicity: chronic Qualified Code(s): I50.32 - Chronic diastolic (congestive) heart failure Is this a current diagnosis for this admission?: YesPlan: Chronic/compensated. Continue metoprolol. Continue losartan. Patient does not take scheduled diuretics. (8) HTN (hypertension) Qualifiers: Hypertension type: essential hypertension Qualified Code(s): I10 - Essential (primary) hypertension Is this a current diagnosis for this admission?: Yes (9) Intertrigo Is this a current diagnosis for this admission?: YesPlan: Diabetes and antibiotics are contributing. Nystatin powder. (10) Full code status Is this a current diagnosis for this admission?: Yes - Time Time Spent with patient: 25-34 minutes Anticipated discharge: Home Within: within 24 hours
[2016-08-30] MEDS ORDERED: POLYETHYLENE GLYCOL 3350 POWDER 17 GM/1 PACKET PO ONE (15:00)
[2016-08-30] MEDS: NITROFURANTOIN MONOHYD/M-CRYST 100 MG CAPSULE PO SCH (17:31)
[2016-08-30] MEDS: TRAZODONE HCL 50 MG TABLET PO SCH (21:23)
[2016-08-31 07:05] LABS: ANION GAP 12 (5-19); BLOOD UREA NITROGEN 23 mg/dL (7-20); CALCIUM 10.2 mg/dL (8.4-10.2); CARBON DIOXIDE 26 mmol/L (22-30); CHLORIDE 103 mmol/L (98-107); CREATININE RESULT 0.84 mg/dL (0.52-1.25); GLUCOSE 104 mg/dL (75-110); POTASSIUM 4.5 mmol/L (3.6-5.0); SODIUM 140.5 mmol/L (137-145)
[2016-08-31 07:07] LABS: HEMATOCRIT 49.7 % (36.0-47.0); HEMOGLOBIN 15.9 g/dL (12.0-15.5); MEAN CORPUSCULAR HGB CONC 32.1 g/dL (32.0-36.0); MEAN CORPUSCULAR VOLUME 69 fl (80-97); RED BLOOD COUNT 7.24 10^6/uL (3.72-5.28); RED CELL DISTRIBUTION WIDTH 26.5 % (11.5-14.0)
[2016-08-31 07:38] LABS: BASOPHILS % (MANUAL) 0 % (0-2); EOSINOPHILS % (MANUAL) 1 % (0-6); LYMPHOCYTES % (MANUAL) 3 % (13-45); TOTAL CELLS COUNTED 100
[2016-08-31 07:42] LABS: ANISOCYTOSIS 3+; OVALOCYTES SLIGHT; POIKILOCYTOSIS 1+; TEAR DROP CELLS SLIGHT; TOXIC GRANULATION SLIGHT; TOXIC VACUOLATION PRESENT
[2016-08-31 07:43] LABS: WHITE BLOOD COUNT 35.6 10^3/uL (4.0-10.5)
[2016-08-31 07:44] LABS: BAND NEUTROPHILS % (MANUAL) 13 % (3-5)
[2016-08-31] MEDS: HUM INSULIN NPH/REG INSULIN HM 100 UNIT/1 ML 3 ML SUBCUT SCH ×2 (09:52→17:11)
[2016-08-31] MEDS: SITAGLIPTIN PHOSPHATE 50 MG TABLET PO SCH (09:52)
[2016-08-31] MEDS: ENOXAPARIN SODIUM INJ 40 MG/0.4 ML DISP.SYRIN SUBCUT SCH (09:52)
[2016-08-31] MEDS: NITROFURANTOIN MONOHYD/M-CRYST 100 MG CAPSULE PO SCH ×2 (09:52→17:10)
[2016-08-31] MEDS: ASPIRIN 81 MG TABLET, CHEWABLE PO SCH (09:53)
[2016-08-31] MEDS: NYSTATIN TOPICAL POWDER 15 GM TP SCH ×2 (09:53→17:10)
[2016-08-31] MEDS: CITALOPRAM HYDROBROMIDE 20 MG TABLET PO SCH (09:53)
[2016-08-31] MEDS: GABAPENTIN 300 MG CAPSULE PO SCH (09:53)
[2016-08-31] MEDS: DOCUSATE SODIUM 100 MG CAPSULE PO SCH ×2 (09:53→17:09)
[2016-08-31] MEDS: METOPROLOL TARTRATE 100 MG TABLET PO SCH (09:53)
[2016-08-31] MEDS: LOSARTAN POTASSIUM 50 MG TABLET PO SCH (09:53)
[2016-08-31] MEDS ORDERED: POLYETHYLENE GLYCOL 3350 POWDER 17 GM/1 PACKET PO SCH (10:00)
[2016-08-31] MEDS: INSULIN LISPRO 100 UNIT/ML 3 ML VIAL SUBCUT PRN (11:57)
[2016-08-31] MEDS ORDERED: CEFTRIAXONE 1 GM/D5W RTU 1 GM/50 ML RTUPB IV ONE (12:00)
[2016-08-31] MEDS ORDERED: MINERAL OIL ENEMA 133 ML PR ONE (12:00)
[2016-08-31 17:46] VITALS: BP 132/48
[2016-09-01] MEDS ORDERED: CEFTRIAXONE 1 GM/D5W RTU 1 GM/50 ML RTUPB IV SCH (10:00)
--- NOTE | 2016-09-01 23:10 | PDOC DISCHARGE SUMMARY ---
General - Admit/Disc Date/PCP Admission Date/Primary Care Provider: 08/27/16 17:27 Discharge Date: 08/31/16 - Discharge Diagnosis (1) UTI (urinary tract infection) Is this a current diagnosis for this admission?: Yes (2) Leukocytosis Is this a current diagnosis for this admission?: Yes (3) Severe obesity (BMI 35.0-35.9 with comorbidity) Is this a current diagnosis for this admission?: Yes (4) Depression Is this a current diagnosis for this admission?: Yes (5) HTN (hypertension) Is this a current diagnosis for this admission?: Yes (6) Chronic constipation Is this a current diagnosis for this admission?: Yes (7) Diabetes mellitus type II, controlled Is this a current diagnosis for this admission?: Yes (8) History of CVA (cerebrovascular accident) Is this a current diagnosis for this admission?: Yes (9) Intertrigo Is this a current diagnosis for this admission?: Yes - Additional Information Resuscitation Status: Full Code Discharge Diet: Cardiac, Diabetic Discharge Activity: Activity As Tolerated, Slowly Increase Activity Home Medications: Citalopram Hydrobromide [Celexa 20 mg Tablet] 40 mg PO DAILY 05/19/14 Aspirin [Aspirin 81 mg Chewable Tablet] 81 mg PO DAILY #90 tab.chew 08/31/16 Cephalexin Monohydrate [Keflex 500 mg Capsule] 500 mg PO Q12 #10 capsule Citalopram Hydrobromide [Celexa 40 mg Tablet] 1 tab PO DAILY #30 tablet Clopidogrel Bisulfate [Plavix 75 mg Tablet] 75 mg PO DAILY #30 tablet 08/31/16 Docusate Sodium [Colace 100 mg Capsule] 100 mg PO BID #60 capsule 08/31/16 Gabapentin [Neurontin 300 mg Capsule] 300 mg PO Q12 capsule 08/31/16 Gabapentin [Neurontin 300 mg Capsule] 300 mg PO TID #90 capsule 08/31/16 Hum Insulin NPH/Reg Insulin Hm [Insulin 70-30 (NPH/Reg) 100 unit/mL] 85 unit SUBCUT BID 30 Days 08/31/16 Losartan Potassium [Cozaar 50 mg Tablet] 50 mg PO Q12 #60 tablet 08/31/16 Metoprolol Tartrate [Lopressor 100 mg Tablet] 100 mg PO Q12 #60 tablet 08/31/16 Polyethylene Glycol 3350 [Miralax Powder 17 gm/Packet] 17 gm PO DAILY #30 powd.pack 08/31/16 Sitagliptin Phosphate [Januvia] 100 mg PO DAILY #30 tablet 08/31/16 Trazodone HCl 50 mg PO QHS #30 tablet 08/31/16 History of Present Illness History of Present Illness: Please see H&P for full history of present illness Hospital Course Hospital Course: Patient was admitted with what was thought to be sepsis from a UTI. Patient is found to have chronic leukocytosis and was seen and evaluated by hematology/ oncology. Studies are currently pending at this time and she is to follow with Dr. Tristan as an outpatient. Patient found to have a urinary tract infection with Escherichia coli. Patient transition to appropriate oral antibiotics. Patient complained of constipation which was relieved prior to discharge. She was discharged in stable condition Physical Exam Vital Signs: Temp Pulse Resp BP Pulse Ox 97.9 F 74 17 132/48 H 93 08/31/16 17:45 08/31/16 17:45 08/31/16 17:45 08/31/16 17:45 08/31/16 17:45 Intake & Output 08/31/16 09/01/16 09/02/16 06:59 06:59 06:59 Intake Total 2720 780 Balance 2720 780 Weight 102.3 kg Exam: GENERAL: No acute distress HEENT: Conjunctiva clear, nonicteric, moist mucous membranes, no JVD, midline trachea RESPIRATORY: Clear to auscultation bilaterally, no wheezes, no rhonchi CARDIAC: Regular rate and rhythm, no murmurs/gallops/rubs ABDOMEN: Soft, nondistended, nontender, positive bowel sounds, no rebound, no guarding EXTREMETIES: No edema, cyanosis, clubbing NEUROLOGIC: Alert, oriented to person/place/time, CN's grossly intact, no focal deficits PSYCH: Normal mood, normal affect Results Laboratory Results: 08/31/16 06:28 08/31/16 06:28 Qualifiers PATEINT BEING DISCHARGED WITH ANY OF THE FOLLOWING DIAGNOSIS?: No Plan Time Spent: Greater than 30 Minutes
== END 2016-08-31 18:25 | disposition home or self-care (01) ==
LOC: ER 13:22 → EH 17:27 → UNDOADMOB 17:33 → 5 22:17
PROVIDERS: ADMIT Family Medicine; ATTEND Family Medicine
DX: N39.0 Urinary tract infection, site not specified (principal); B96.20 Unspecified Escherichia coli [E. coli] as the cause of diseases classified elsewhere; D72.829 Elevated white blood cell count, unspecified; E66.01 Morbid (severe) obesity due to excess calories; Z68.35 Body mass index [BMI] 35.0-35.9, adult; F32.9 Major depressive disorder, single episode, unspecified; I10 Essential (primary) hypertension; K59.09 Other constipation; Z86.73 Personal history of transient ischemic attack (TIA), and cerebral infarction without residual deficits; E10.9 Type 1 diabetes mellitus without complications; L30.4 Erythema intertrigo; Z79.4 Long term (current) use of insulin; Z79.82 Long term (current) use of aspirin; I25.2 Old myocardial infarction; E87.5 Hyperkalemia; Z88.1 Allergy status to other antibiotic agents; Z88.0 Allergy status to penicillin; I50.32 Chronic diastolic (congestive) heart failure
CPT/HCPCS: 93005; 99284; 36415 ×5; 87040; 87086; 82962 ×5; 83605; 85025 ×4; 85027; 87088; 80048 ×4; 80053; 81001; 87186; 93010; G0378 ×6; J0743 ×4; A9270 ×48; J3490 ×7; J1650 ×5; J7030; J0696; J1815; J8499

== ENCOUNTER 2016-09-08 02:47 | Emergency (ER) | payer MEDICARE, OTHER ==
[2016-09-08 03:00] VITALS: BP 105/76
--- NOTE | 2016-09-08 03:08 | ER Document Report ---
ED Fall - General Chief Complaint: Fall Stated Complaint: FALL,BUTTOCKS PAIN Mode of Arrival: Medic Information source: Patient Notes: Patient is an 81-year-old female who presents to the ER today after a fall 14 hours ago. Patient is complaining of some left buttock pain but states that she can walk. She denies any numbness, tingling, loss of bladder or bowel function. She states she fell because she "lost her footing." She denies hitting her head or losing consciousness. TRAVEL OUTSIDE OF THE [place] IN LAST 30 DAYS: No - Related data Allergies/Adverse Reactions: amoxicillin Allergy (Intermediate, Verified 08/27/16 15:13) Penicillins Allergy (Verified 08/27/16 15:13) Past Medical History - General Information source: Patient - Social History Smoking Status: Unknown if Ever Smoked Family History: Reviewed & Not Pertinent, DM, Hypertension, Malignancy - Father with lung cancer, Other - Past Medical History Cardiac Medical History: Reports: Hx Congestive Heart Failure - reports an acute episode previously, unsure of year, Hx Heart Attack - EKG suggests probable prior infarction, Hx Hypercholesterolemia, Hx Hypertension Endocrine Medical History: Reports: Hx Diabetes Mellitus Type 1, Hx Diabetes Mellitus Type 2 Renal/ Medical History: Denies: Hx End Stage Renal Disease GI Medical History: Reports: Hx Gastroesophageal Reflux Disease Musculoskeltal Medical History: Reports Hx Arthritis, Reports Hx Musculoskeletal Deformity Psychiatric Medical History: Reports: Hx Anxiety, Hx Depression Past Surgical History: Reports: Hx Abdominal Surgery, Hx Appendectomy, Hx Hysterectomy, Hx Tonsillectomy, Other - Cardiac loop recorder - Immunizations Hx Diphtheria, Pertussis, Tetanus Vaccination: No Hx Pneumococcal Vaccination: 04/29/13 Review of Systems - Review of Systems Constitutional: No symptoms reported EENT: No symptoms reported Cardiovascular: No symptoms reported Respiratory: No symptoms reported Gastrointestinal: No symptoms reported Genitourinary: No symptoms reported Female Genitourinary: No symptoms reported Musculoskeletal: See HPI Skin: No symptoms reported Hematologic/Lymphatic: No symptoms reported Neurological/Psychological: No symptoms reported Physical Exam - Vital signs Vitals: Temp Pulse Resp BP Pulse Ox 98.6 F 86 17 105/76 95 09/08/16 02:57 09/08/16 02:57 09/08/16 02:57 09/08/16 02:57 09/08/16 02:57 - Notes Notes: PHYSICAL EXAMINATION: GENERAL: Appears uncomfortable, but in no acute distress. HEAD: Atraumatic, normocephalic. EYES: Pupils equal round and reactive to light, extraocular movements intact, sclera anicteric, conjunctiva are normal. NECK: Normal range of motion, supple without lymphadenopathy LUNGS: CTAB and equal. No wheezes rales or rhonchi. HEART: Regular rate and rhythm without murmurs ABDOMEN: Soft, no tenderness. No guarding, no rebound BACK: left SI joint tenderness, no vertebral tenderness, normal ROM GI/: no CVA tenderness EXTREMITIES: Normal range of motion, no pitting edema. No cyanosis. NEUROLOGICAL: Cranial nerves grossly intact. Normal sensory/motor exams. PSYCH: Normal mood, normal affect. SKIN: Warm, Dry, normal turgor, no rashes or lesions noted Course - Re-evaluation Re-evalutation: 09/08/16 03:49 X-ray of the lumbar spine and left hip negative for any acute pathology. Patient states here in the emergency department that she cannot get up and walk , however nurse has visualized her walking to the bathroom without any issues. - Vital Signs Vital signs: Temp Pulse Resp BP Pulse Ox 98.6 F 86 17 105/76 95 09/08/16 02:57 09/08/16 02:57 09/08/16 02:57 09/08/16 02:57 09/08/16 02:57 Discharge - Discharge Clinical Impression: Left hip pain Fall Qualifiers: Encounter type: initial encounter Qualified Code(s): W19.XXXA - Unspecified fall, initial encounter Condition: Stable Disposition: HOME, SELF-CARE Additional Instructions: Return immediately for any new or worsening symptoms. Follow up with primary care provider, call tomorrow to make followup appointment. Prescriptions: Methocarbamol [Robaxin 500 mg Tablet] 500 mg PO QID #30 tablet Oxycodone HCl/Acetaminophen [Percocet 5-325 mg Tablet] 1 tab PO ASDIR PRN #15 tab PRN Reason: Referrals: CONSTANZA RAYMOND MD [Primary Care Provider] - Follow up as needed
[2016-09-08] MEDS ORDERED: OXYCODONE-ACETAMINOPHEN 5-325 MG TABLET PO ONE (03:52)
== END 2016-09-08 09:43 | disposition home or self-care (01) ==
LOC: ER 02:47
DX: M25.552 Pain in left hip (principal); W18.30XA Fall on same level, unspecified, initial encounter; I50.9 Heart failure, unspecified; E78.00 Pure hypercholesterolemia, unspecified; I10 Essential (primary) hypertension; E11.9 Type 2 diabetes mellitus without complications; K21.9 Gastro-esophageal reflux disease without esophagitis; Z88.0 Allergy status to penicillin; Z90.710 Acquired absence of both cervix and uterus; I25.2 Old myocardial infarction
CPT/HCPCS: 72100; 99284

== ENCOUNTER 2016-09-11 14:24 | Emergency (ER) | payer MEDICARE, OTHER ==
[2016-09-11] MEDS ORDERED: KETOROLAC TROMETHAMINE 60 MG/2 ML SDV IM ONE (14:38)
--- NOTE | 2016-09-11 15:10 | ER Document Report ---
ED General - General Chief Complaint: Low Back Pain Stated Complaint: FREQUENT URINATION Notes: The patient is an 81-year-old female, past medical history diabetes, hypertension, presents with 2 days of urinary frequency and box pain. She was admitted 2 weeks ago for UTI and treated with antibiotics, which sedge cleared her dysuria. Her symptoms returned. In addition, she had a mechanical fall 5 days ago where she landed on her sacrum. She was seen in the emergency room and had a negative lumbar spine x-ray. She is able to ambulate. She started taking the Percocet and Robaxin yesterday without much relief. She is not taking an NSAID. Denies numbness, tingling, difficulty walking, difficulty urinating or stooling, saddle anesthesia, fevers, nausea or vomiting. TRAVEL OUTSIDE OF THE [place] IN LAST 30 DAYS: No - Related Data Allergies/Adverse Reactions: amoxicillin Allergy (Intermediate, Verified 08/27/16 15:13) Penicillins Allergy (Verified 08/27/16 15:13) Past Medical History - General Information source: Patient - Social History Smoking Status: Never Smoker Family History: Reviewed & Not Pertinent, DM, Hypertension, Malignancy - Father with lung cancer, Other - Past Medical History Cardiac Medical History: Reports: Hx Congestive Heart Failure - reports an acute episode previously, unsure of year, Hx Heart Attack - EKG suggests probable prior infarction, Hx Hypercholesterolemia, Hx Hypertension Endocrine Medical History: Reports: Hx Diabetes Mellitus Type 2 Renal/ Medical History: Denies: Hx End Stage Renal Disease GI Medical History: Reports: Hx Gastroesophageal Reflux Disease Musculoskeltal Medical History: Reports Hx Arthritis, Reports Hx Musculoskeletal Deformity Psychiatric Medical History: Reports: Hx Anxiety, Hx Depression Past Surgical History: Reports: Hx Abdominal Surgery, Hx Appendectomy, Hx Hysterectomy, Hx Tonsillectomy, Other - Cardiac loop recorder - Immunizations Hx Diphtheria, Pertussis, Tetanus Vaccination: No Hx Pneumococcal Vaccination: 04/29/13 Review of Systems - Review of Systems Notes: REVIEW OF SYSTEMS: CONSTITUTIONAL: -fevers, -chills EENT: -eye pain, -difficulty swallowing, -nasal congestion CARDIOVASCULAR:-chest pain, -syncope. RESPIRATORY: -cough, -SOB GASTROINTESTINAL: -abdominal pain, - nausea, -vomiting, -diarrhea GENITOURINARY: +urinary frequency, -dysuria, -hematuria MUSCULOSKELETAL: -back pain, -neck pain, +buttock pain SKIN: +groin rash HEMATOLOGIC: -easy bruising or bleeding. LYMPHATIC: -swollen, enlarged glands. NEUROLOGICAL: -altered mental status or loss of consciousness, -headache, - neurologic symptoms PSYCHIATRIC: -anxiety, -depression. ALL OTHER SYSTEMS REVIEWED AND NEGATIVE. Physical Exam - Vital signs Vitals: Temp Pulse Resp BP Pulse Ox 98.1 F 88 18 132/66 H 97 09/11/16 14:34 09/11/16 14:34 09/11/16 14:34 09/11/16 14:34 09/11/16 14:34 - Notes Notes: PHYSICAL EXAMINATION: GENERAL: Well-appearing, well-nourished and in no acute distress. HEAD: Atraumatic, normocephalic. EYES: Pupils equal round and reactive to light, extraocular movements intact, sclera anicteric, conjunctiva are normal. ENT: nares patent, oropharynx clear without exudates. Moist mucous membranes. NECK: Normal range of motion, supple without lymphadenopathy LUNGS: Breath sounds clear to auscultation bilaterally and equal. No wheezes rales or rhonchi. HEART: Regular rate and rhythm without murmurs ABDOMEN: Soft, nontender, normoactive bowel sounds. No guarding, no rebound. No masses appreciated. EXTREMITIES: Normal range of motion, no pitting or edema. No cyanosis. Tenderness over right buttocks, no contusion, no midline back tenderness. NEUROLOGICAL: Cranial nerves grossly intact. Normal speech, normal gait. Normal sensory, motor, and reflex exams. PSYCH: Normal mood, normal affect. SKIN: Yeast present in groin region. Course - Re-evaluation Re-evalutation: Patient has no red flag signs for low back pain. Will add NSAID to help with pain. Patient also with UTI and [place] infection. Sensitivities done on urine showed Escherichia coli that was sensitive to Keflex. Her penicillin allergy is a rash when she was a baby. Keflex is safe for patient. She has an appointment with her primary care physician and pain management in 2 weeks. Given strict return precautions and she understands. - Vital Signs Vital signs: Temp Pulse Resp BP Pulse Ox 98.1 F 88 18 132/66 H 97 09/11/16 14:34 09/11/16 14:34 09/11/16 14:34 09/11/16 14:34 09/11/16 14:34 - Laboratory Laboratory results interpreted by me: 09/11/16 14:50 Ur Leukocyte Esterase LARGE H Discharge - Discharge Clinical Impression: UTI (urinary tract infection), Muscle contusion, Yeast infection Condition: Good Disposition: HOME, SELF-CARE Additional Instructions: Take the full course of antibiotics for your UTI. Use the nystatin cream to help with the yeast infection. Add Motrin every 6 hours or Naprosyn every 12 hours with food to help with your by buttock pain. Follow-up with your primary care physician. Return to the ER if you have fevers, flank pain or any other concerns. URINARY TRACT INFECTION: Your evaluation indicates that you have a urinary tract infection. This is due to germs growing in the bladder. This is a common problem. This infection usually responds quickly to antibiotics. Your antibiotic should be taken exactly as prescribed. Drink plenty of fluids -- three to four quarts a day. Occasionally, a bladder anesthetic will be prescribed to help stop the feeling of urgency until the antibiotic has a chance to clear the infection. This may cause your urine to be dark orange. Certain urine infections require a culture. If the doctor obtained a culture, the results will be back in two days. You should call to see if a change in treatment is needed. A repeat urinalysis after you finish treatment is often recommended. The physician will let you know if further testing is required. Call the doctor if you develop fever, chills, flank pain, inability to urinate, or blood in the urine. ANTIBIOTIC THERAPY: You have been given an antibiotic prescription. It's important that you take all the medication, unless instructed otherwise by your physician. Failure to complete the entire course can result in relapse of your condition. Common side effects of antibiotics include nausea, intestinal cramping, or diarrhea. Women may develop vaginal yeast infections, and babies can get yeast (thrush) in the mouth following the use of antibiotics. Contact your physician if you develop significant side effects from this medication. Allergy to this antibiotic can result in hives, wheezing, faintness, or itching. If symptoms of allergy occur, stop the medication and call the doctor. CEPHALEXIN: The antibiotic you've been prescribed is a member of the cephalosporin class. This type of antibiotic covers a wide variety of infections, including those of the skin, lungs, and urinary tract. It's useful for staph infections. This antibiotic is slightly similar to the penicillin family. In rare cases , a person who is allergic to penicillin will also be allergic to this medication. If you have had a severe allergic reaction to penicillin, and have not taken this antibiotic since that time, notify your doctor. Antibiotics which cover many germs ("broad spectrum" antibiotics) are more likely to cause diarrhea or "yeast" infections. Women prone to vaginal yeast problems may suffer an attack after taking this antibiotic. In infants, oral thrush (white spots "stuck" on the cheek) or yeast diaper rash may result. See your doctor if these problems occur. Call at once if you develop itching, hives , shortness of breath, or lightheadedness. URINARY ANESTHETIC AGENT: You have been given a medication (Pyridium) for urinary tract discomfort. This medicine numbs the lining of the bladder and urethra, resulting in less pain, burning, and urgency. You may take it as needed, according to instructions. When the symptoms resolve, you can stop this medication (be sure to continue any other medications the doctor has given you). This medicine turns the urine a dark orange. It may stain underwear. Occasionally, it can cause nausea. Return for evaluation if there are any unexpected effects, such as itching, hives, or shortness of breath. FOLLOW-UP CARE: If you have been referred to a physician for follow-up care, call the physician s office for an appointment as you were instructed or within the next two days. If you experience worsening or a significant change in your symptoms, notify the physician immediately or return to the Emergency Department at any time for re-evaluation. Contusion Your injury has resulted in a contusion -- a crushing of the deep tissues. No injury to important structures was detected during the physician's exam. Contusions vary in the amount of pain they cause, and in the length of time required for healing. Typically, the area will become bruised, and will remain painful to touch for two or three weeks. However, most patients are back to working and playing within a few days. After the initial period of rest and cold-packs, your symptoms (together with the doctor's recommendations) will determine how rapidly you can get back to full activity. Usually this means "do what feels okay, but don't do things that hurt." If re-examination was recommended, it's important to follow up as instructed. Call the doctor or return any time if pain increases, if swelling becomes severe, if you develop numbness or weakness in an injured extremity, or if any other alarming symptoms occur. Prescriptions: Cephalexin Monohydrate [Keflex 500 mg Capsule] 500 mg PO TID #21 capsule Nystatin [Nyata] 15 gm TP Q12H #1 powder
[2016-09-11 15:19] LABS: APPEARANCE,URINE CLOUDY; BILIRUBIN,URINE NEGATIVE (NEGATIVE); GLUCOSE, URINE NEGATIVE (NEGATIVE); KETONES,URINE NEGATIVE (NEGATIVE); LEUKOCYTE ESTERASE,URINE LARGE (NEGATIVE); NITRITE,URINE NEGATIVE (NEGATIVE); PROTEIN,URINE NEGATIVE (NEGATIVE); UROBILINOGEN,URINE NEGATIVE mg/dL (<2.0)
[2016-09-11] MEDS ORDERED: CEPHALEXIN 500 MG CAPSULE PO ONE (15:57)
[2016-09-11 17:01] VITALS: BP 123/59
== END 2016-09-11 16:58 | disposition home or self-care (01) ==
LOC: ER 14:24
DX: N39.0 Urinary tract infection, site not specified (principal); B37.49 Other urogenital candidiasis; S30.0XXA Contusion of lower back and pelvis, initial encounter; M54.5 Low back pain; W19.XXXA Unspecified fall, initial encounter; E11.9 Type 2 diabetes mellitus without complications; I10 Essential (primary) hypertension; R35.0 Frequency of micturition; I50.9 Heart failure, unspecified; E78.00 Pure hypercholesterolemia, unspecified; I25.2 Old myocardial infarction; Z88.0 Allergy status to penicillin
CPT/HCPCS: 99283; 96372; 81001; A9270; J1885

== ENCOUNTER 2016-09-13 10:06 | Inpatient (IN) | payer MEDICARE, OTHER ==
[2016-09-13 11:05] LABS: HEMATOCRIT 51.5 % (36.0-47.0); HEMOGLOBIN 15.2 g/dL (12.0-15.5); MEAN CORPUSCULAR HEMOGLOBIN 21.3 pg (27.0-33.4); MEAN CORPUSCULAR HGB CONC 29.6 g/dL (32.0-36.0); MEAN CORPUSCULAR VOLUME 72 fl (80-97); RED BLOOD COUNT 7.15 10^6/uL (3.72-5.28); RED CELL DISTRIBUTION WIDTH 26.2 % (11.5-14.0); WHITE BLOOD COUNT 29.2 10^3/uL (4.0-10.5)
[2016-09-13] MEDS ORDERED: NORMAL SALINE 1000 ML 1,000 ML IV ONE (11:08)
[2016-09-13] MEDS ORDERED: NYSTATIN TOPICAL POWDER 15 GM TP ONE (11:15)
[2016-09-13] MEDS ORDERED: ONDANSETRON HCL INJ/PF 4 MG/2 ML SDV IV ONE (11:16)
[2016-09-13] MEDS ORDERED: LEVOFLOXACIN 500 MG/D5W RTU 100 ML IV ONE (11:17)
--- NOTE | 2016-09-13 11:17 | ER Document Report ---
ED General - General Chief Complaint: diarrhea x3 toeay, and nausea Stated Complaint: NAUSEA Mode of Arrival: Ambulatory Information source: Patient Notes: 81 -year-old female who was recently diagnosed with a UTI presents with complaints of nausea, abdominal pain and rash in the groin. Patient has had intermittent diarrhea as well. Family denies any fevers at home TRAVEL OUTSIDE OF THE [place] IN LAST 30 DAYS: No - HPI Onset: Other Onset/Duration: Persistent Quality of pain: No pain Severity: Mild Pain Level: 1 Associated symptoms: None, Nausea Exacerbated by: Denies Relieved by: Denies Similar symptoms previously: Yes Recently seen / treated by doctor: Yes - Related Data Allergies/Adverse Reactions: amoxicillin Allergy (Intermediate, Verified 08/27/16 15:13) Penicillins Allergy (Verified 08/27/16 15:13) Past Medical History - Social History Smoking Status: Unknown if Ever Smoked Cigarette use (# per day): No Chew tobacco use (# tins/day): No Smoking Education Provided: No Family History: Reviewed & Not Pertinent, DM, Hypertension, Malignancy - Father with lung cancer, Other Patient has suicidal ideation: No Patient has homicidal ideation: No - Past Medical History Cardiac Medical History: Reports: Hx Congestive Heart Failure - reports an acute episode previously, unsure of year, Hx Heart Attack - EKG suggests probable prior infarction, Hx Hypercholesterolemia, Hx Hypertension Endocrine Medical History: Reports: Hx Diabetes Mellitus Type 2 Renal/ Medical History: Denies: Hx End Stage Renal Disease, Hx Peritoneal Dialysis GI Medical History: Reports: Hx Gastroesophageal Reflux Disease Musculoskeltal Medical History: Reports Hx Arthritis, Reports Hx Musculoskeletal Deformity Psychiatric Medical History: Reports: Hx Anxiety, Hx Depression Past Surgical History: Reports: Hx Abdominal Surgery, Hx Appendectomy, Hx Hysterectomy, Hx Tonsillectomy, Other - Cardiac loop recorder - Immunizations Hx Diphtheria, Pertussis, Tetanus Vaccination: No Hx Pneumococcal Vaccination: 04/29/13 Review of Systems - Review of Systems Notes: REVIEW OF SYSTEMS: CONSTITUTIONAL : Denies fever, chills, or sweats. Denies recent illness. EENT: Denies eye, ear, throat, or mouth pain or symptoms. Denies nasal or sinus congestion or discharge. Denies throat, tongue, or mouth swelling or difficulty swallowing. CARDIOVASCULAR: Denies chest pain. Denies palpitations or racing or irregular heart beat. Denies ankle edema. RESPIRATORY: Denies cough, cold, or chest congestion. Denies shortness of breath, difficulty breathing, or wheezing. GASTROINTESTINAL: admits to nausea GENITOURINARY: Denies difficulty urinating, painful urination, burning, frequency, blood in urine, or discharge. FEMALE GENITOURINARY: Denies vaginal bleeding, heavy or abnormal periods, irregular periods. Denies vaginal discharge or odor. MUSCULOSKELETAL: Denies back or neck pain or stiffness. Denies joint pain or swelling. SKIN: admits ot rash HEMATOLOGIC : Denies easy bruising or bleeding. LYMPHATIC: Denies swollen, enlarged glands. NEUROLOGICAL: Denies confusion or altered mental status. Denies passing out or loss of consciousness. Denies dizziness or lightheadedness. Denies headache. Denies weakness or paralysis or loss of use of either side. Denies problems with gait or speech. Denies sensory loss, numbness, or tingling. Denies seizures. PSYCHIATRIC: Denies anxiety or stress. Denies depression, suicidal ideation, or homicidal ideation. ALL OTHER SYSTEMS REVIEWED AND NEGATIVE. Dictation was performed using ebookpie voice recognition software PHYSICAL EXAMINATION: GENERAL: chronically frail appearing female HEAD: Atraumatic, normocephalic. EYES: Pupils equal round and reactive to light, extraocular movements intact, conjunctiva are normal. ENT: Nares patent, oropharynx clear without exudates. Moist mucous membranes. NECK: Normal range of motion, supple without lymphadenopathy LUNGS: Breath sounds clear to auscultation bilaterally and equal. No wheezes rales or rhonchi. HEART: Regular rate and rhythm without murmurs ABDOMEN: Soft, nontender, nondistended abdomen. No guarding, no rebound. No masses appreciated. Female : deferred Musculoskeletal: Normal range of motion, no pitting or edema. No cyanosis. NEUROLOGICAL: Cranial nerves grossly intact. Normal speech, normal gait. Normal sensory, motor exams PSYCH: Normal mood, normal affect. SKIN: rash consistant with candidiasis in the groin, no secondary infectious process Course - Laboratory Result Diagrams: 09/13/16 10:35 09/13/16 10:35 Laboratory results interpreted by me: 09/13/16 09/13/16 09/13/16 10:35 10:35 12:40 WBC 29.2 H RBC 7.15 H Hct 51.5 H MCV 72 L MCH 21.3 L MCHC 29.6 L RDW 26.2 H Seg Neuts % (Manual) 92 H Band Neutrophils % 1 L Lymphocytes % (Manual) 3 L Monocytes % (Manual) 2 L Abs Neuts (Manual) 27.2 H Abs Basophils (Manual) 0.3 H Glucose 349 H Alkaline Phosphatase 176 H Albumin 3.3 L Urine Protein 30 H Urine Glucose (UA) 50 H Urine Ketones TRACE H Urine Blood SMALL H Urine Urobilinogen 2.0 H Ur Leukocyte Esterase LARGE H Critical Care Note - Critical Care Note Total time excluding time spent on procedures (mins): 37 Comments: 37 minutes of critical care time spent in direct contact evaluating and reevaluating the patient, treating symptoms, reviewing labs and studies and speaking with family and consultants excluding any procedures Discharge - Discharge Clinical Impression: Yeast infection UTI (urinary tract infection) Qualifiers: Urinary tract infection type: acute cystitis Hematuria presence: with hematuria Qualified Code(s): N30.01 - Acute cystitis with hematuria Sepsis Qualifiers: Sepsis type: sepsis due to unspecified organism Qualified Code(s): A41.9 - Sepsis, unspecified organism Condition: Stable Disposition: ADMITTED INPATIENT Admitting Provider: Hospitalist Unit Admitted: Telemetry
[2016-09-13 11:23] LABS: ALANINE AMINOTRANSFERASE 17 U/L (9-52); ALBUMIN 3.3 g/dL (3.5-5.0); ALKALINE PHOSPHATASE 176 U/L (38-126); ANION GAP 12 (5-19); ASPARTATE AMINO TRANSFERASE 22 U/L (14-36); BILIRUBIN,TOTAL 1.3 mg/dL (0.2-1.3); BLOOD UREA NITROGEN 15 mg/dL (7-20); CALCIUM 9.1 mg/dL (8.4-10.2); CARBON DIOXIDE 25 mmol/L (22-30); CHLORIDE 102 mmol/L (98-107); CREATININE RESULT 0.84 mg/dL (0.52-1.25); GLUCOSE 349 mg/dL (75-110); POTASSIUM 4.6 mmol/L (3.6-5.0); SODIUM 138.8 mmol/L (137-145); TOTAL PROTEIN 6.8 g/dL (6.3-8.2)
[2016-09-13 11:34] LABS: HGB HCT DIFFERENCE -5.9
[2016-09-13 11:42] LABS: BAND NEUTROPHILS % (MANUAL) 1 % (3-5); BASOPHILS % (MANUAL) 1 % (0-2); EOSINOPHILS % (MANUAL) 1 % (0-6); LYMPHOCYTES % (MANUAL) 3 % (13-45); TOTAL CELLS COUNTED 100
[2016-09-13 11:46] LABS: ANISOCYTOSIS 3+; HYPOCHROMASIA SLIGHT; MICROCYTOSIS 1+; OVALOCYTES SLIGHT; POIKILOCYTOSIS 2+; POLYCHROMASIA SLIGHT; TOXIC GRANULATION SLIGHT; TOXIC VACUOLATION PRESENT
[2016-09-13 11:47] LABS: SCHISTOCYTES SLIGHT; STOMATOCYTES SLIGHT; TEAR DROP CELLS SLIGHT
[2016-09-13] MEDS ORDERED: CIPROFLOXACIN 400 MG/D5W RTU 200 ML IV SCH (12:00)
[2016-09-13] MEDS ORDERED: NORMAL SALINE 1000 ML 1,000 ML IV PRN (12:37)
[2016-09-13 13:49] LABS: APPEARANCE,URINE SLIGHTLY-CLOUDY; BILIRUBIN,URINE NEGATIVE (NEGATIVE); GLUCOSE, URINE 50 mg/dL (NEGATIVE); KETONES,URINE TRACE mg/dL (NEGATIVE); LEUKOCYTE ESTERASE,URINE LARGE (NEGATIVE); NITRITE,URINE NEGATIVE (NEGATIVE); PROTEIN,URINE 30 mg/dL (NEGATIVE); URINE SPECIFIC GRAVITY 1.014
[2016-09-13] MEDS ORDERED: ONDANSETRON HCL INJ/PF 4 MG/2 ML SDV IV PRN (15:45)
[2016-09-13] MEDS ORDERED: INSULIN REG, HUMAN 100 UNIT/ML 3 ML VIAL (PYX) SUBCUT PRN (15:53)
[2016-09-13] MEDS ORDERED: DEXTROSE 40% GEL 15 GM TUBE PO PRN ×2 (15:53)
[2016-09-13] MEDS ORDERED: DEXTROSE 50%-WATER 25 GM/50 ML DISP.SYRIN IV PRN ×2 (15:53)
[2016-09-13] MEDS ORDERED: GLUCAGON,HUMAN RECOMB 1 MG INJ IM PRN (15:53)
--- NOTE | 2016-09-13 16:14 | PDOC H&P ---
History of Present Illness Admission Date/PCP: 09/13/16 14:11 CONSTANZA RAYMOND, Patient complains of: Dysuria urgency and frequency History of Present Illness: ORACIO PEDROZA is a 81 year old female, with known history of leukocytosis but no known diagnosis of ischemia, recurrent UTI including ESBL treated earlier this year for a urine infection came back again with dysuria urgency or frequency for the past several days with associated nausea and vomiting of one day duration. No definite chills or fever. There is occasional sweating. There is back pain associated. No hematuria. Denies any kidney stones in the past. She had multiple bouts of UTI. She has never seen a urologist. In terms of her leukocytosis patient reportedly seen by hematology and workups were negative for malignancy. In the emergency room, she has pyuria and significant leukocytosis and intravenous Levaquin was given and patient was referred for admission. 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 Endocrine Medical History: Reports: Diabetes Mellitus Type 2 Renal/ Medical History: Denies: End Stage Renal Disease GI Medical History: Reports: Gastroesophageal Reflux Disease Musculoskeltal Medical History: Reports: Arthritis Psychiatric Medical History: Reports: Depression Past Surgical History Past Surgical History: Reports: Appendectomy, Hysterectomy, Tonsillectomy, Other - Cardiac loop recorder, bilateral cataract surgery Social History Information Source: Patient Smoking Status: Never Smoker Frequency of Alcohol Use: None Hx Recreational Drug Use: No Drugs: None Hx Prescription Drug Abuse: No Family History Family History: DM, Hypertension, Malignancy - Father with lung cancer, Other Parental Family History Reviewed: Yes Children Family History Reviewed: Yes Sibling(s) Family History Reviewed.: Yes Medication/Allergy Home Medications: Aspirin [Aspirin 81 mg Chewable Tablet] 81 mg PO DAILY 09/13/16 Cephalexin [Cephalexin 500 MG Capsule] 1 cap PO Q12 09/13/16 Citalopram Hydrobromide [Celexa] 40 mg PO DAILY 09/13/16 Clopidogrel Bisulfate [Plavix 75 mg Tablet] 75 mg PO DAILY 09/13/16 Docusate Sodium [Colace 100 mg Capsule] 100 mg PO DAILY 09/13/16 Gabapentin [Neurontin 300 mg Capsule] 300 mg PO Q12 09/13/16 Hum Insulin NPH/Reg Insulin Hm [Insulin Inj 70-30 (100 Unit/1 ml) 3 ml Vial] 85 unit SUBCUT BID 09/13/16 Losartan Potassium [Cozaar 50 mg Tablet] 50 mg PO Q12 09/13/16 Methocarbamol [Robaxin] 500 mg PO QID 09/13/16 Metoprolol Tartrate [Lopressor 100 mg Tablet] 100 mg PO Q12 09/13/16 Nystatin [Mycostatin Topical Powder 15 gm] 1 applic TP BID 09/13/16 Oxycodone HCl/Acetaminophen [Percocet 5-325 mg Tablet] 1 tab PO ASDIR PRN Polyethylene Glycol 3350 [Miralax Powder 17 gm/Packet] 17 gm PO Q2D 09/13/16 Sitagliptin Phosphate [Januvia] 100 mg PO DAILY 09/13/16 Trazodone HCl [Desyrel 50 mg Tablet] 50 mg PO QHS 09/13/16 Allergies/Adverse Reactions: amoxicillin Allergy (Intermediate, Verified 08/27/16 15:13) Penicillins Allergy (Verified 08/27/16 15:13) Review of Systems Constitutional: PRESENT: weakness - Generalized. ABSENT: chills, fever(s), headache(s), weight gain, weight loss Eyes: PRESENT: visual disturbances - Cataract surgery bilateral Ears: ABSENT: hearing changes Nose, Mouth, and Throat: ABSENT: mouth pain, sore throat Cardiovascular: PRESENT: edema - Chronic lower extremity edema. ABSENT: chest pain, dyspnea on exertion, orthropnea, palpitations Respiratory: ABSENT: cough, hemoptysis, sputum Gastrointestinal: PRESENT: nausea, vomiting, other - Pain and discomfort in the flank and tailbone. ABSENT: abdominal pain, constipation, diarrhea, hematemesis , hematochezia, melena Genitourinary: PRESENT: difficulty urinating, dysuria. ABSENT: hematuria, nocturia Musculoskeletal: PRESENT: back pain. ABSENT: joint swelling Integumentary: ABSENT: pruritus, rash, wounds Neurological: PRESENT: abnormal speech - She states that she had expressive aphasia several weeks ago that spontaneously resolved. Patient seen in the emergency room and was discharged.. ABSENT: abnormal gait, confusion, dizziness , syncope Psychiatric: ABSENT: anxiety, depression, homidical ideation, suicidal ideation Endocrine: ABSENT: cold intolerance, heat intolerance, polydipsia, polyphagia, polyuria Hematologic/Lymphatic: ABSENT: easy bleeding, easy bruising Physical Exam Vital Signs: Temp Pulse Resp BP Pulse Ox 98.2 F 90 16 126/58 H 95 09/13/16 12:08 09/13/16 12:08 09/13/16 12:08 09/13/16 12:08 09/13/16 12:08 General appearance: PRESENT: no acute distress, cooperative, morbidly obese Head exam: PRESENT: atraumatic, normocephalic Eye exam: PRESENT: conjunctiva pink, EOMI, PERRLA - Sluggish. ABSENT: scleral icterus Ear exam: PRESENT: normal external ear exam. ABSENT: drainage Mouth exam: PRESENT: moist, neck supple, tongue midline Throat exam: ABSENT: post pharyngeal erythema, tonsillar erythema, tonsillar exudate Neck exam: ABSENT: carotid bruit, JVD, lymphadenopathy, thyromegaly Respiratory exam: PRESENT: clear to auscultation carmen. ABSENT: rales, rhonchi, wheezes Cardiovascular exam: PRESENT: RRR, +S1, +S2. ABSENT: diastolic murmur, rubs, systolic murmur Pulses: PRESENT: normal dorsalis pedis pul Vascular exam: PRESENT: normal capillary refill GI/Abdominal exam: PRESENT: distended - Obese, normal bowel sounds, soft, other - CVA tenderness on the left. ABSENT: guarding, mass, organolmegaly, rebound, tenderness Rectal exam: PRESENT: deferred Extremities exam: PRESENT: full ROM. ABSENT: calf tenderness, clubbing, pedal edema Neurological exam: PRESENT: alert, awake, oriented to person, oriented to place , oriented to time, oriented to situation Psychiatric exam: PRESENT: appropriate affect, normal mood. ABSENT: homicidal ideation, suicidal ideation Skin exam: PRESENT: dry, intact, warm. ABSENT: cyanosis, rash Assessment & Plan - Diagnosis (1) Sepsis Qualifiers: Sepsis type: sepsis due to unspecified organism Qualified Code(s): A41.9 - Sepsis, unspecified organism Is this a current diagnosis for this admission?: Yes (2) UTI (urinary tract infection) Qualifiers: Urinary tract infection type: site unspecified Hematuria presence: without hematuria Qualified Code(s): N39.0 - Urinary tract infection, site not specified Is this a current diagnosis for this admission?: Yes (3) Type 2 diabetes mellitus with hyperglycemia Qualifiers: Diabetes mellitus exterminator helper insulin use: with fci use Qualified Code(s): E11.65 - Type 2 diabetes mellitus with hyperglycemia; Z79.4 - exterminator helper (current) use of insulin Is this a current diagnosis for this admission?: Yes (4) HTN (hypertension) Qualifiers: Hypertension type: essential hypertension Qualified Code(s): I10 - Essential (primary) hypertension Is this a current diagnosis for this admission?: Yes (5) Morbid obesity Qualifiers: Obesity type: unspecified obesity type Qualified Code(s): E66.01 - Morbid (severe) obesity due to excess calories Is this a current diagnosis for this admission?: Yes (6) Cholelithiasis Qualifiers: Cholelithiasis location: gallbladder Cholecystitis presence: without cholecystitis Biliary obstruction: without biliary obstruction Qualified Code(s): K80.20 - Calculus of gallbladder without cholecystitis without obstruction Is this a current diagnosis for this admission?: Yes (7) Diastolic CHF Qualifiers: Congestive heart failure chronicity: chronic Qualified Code(s): I50.32 - Chronic diastolic (congestive) heart failure Is this a current diagnosis for this admission?: Yes (8) History of CVA (cerebrovascular accident) Is this a current diagnosis for this admission?: Yes (9) Leukocytosis Qualifiers: Leukocytosis type: unspecified Qualified Code(s): D72.829 - Elevated white blood cell count, unspecified Is this a current diagnosis for this admission?: Yes (10) Hyperlipidemia Qualifiers: Hyperlipidemia type: unspecified Qualified Code(s): E78.5 - Hyperlipidemia, unspecified Is this a current diagnosis for this admission?: Yes (11) Anxiety and depression Is this a current diagnosis for this admission?: Yes (12) GERD (gastroesophageal reflux disease) Qualifiers: Esophagitis presence: without esophagitis Qualified Code(s): K21.9 - Gastro-esophageal reflux disease without esophagitis Is this a current diagnosis for this admission?: Yes (13) CAD (coronary artery disease) Qualifiers: Coronary Disease-Associated Artery/Lesion type: [place] artery [place] vs. transplanted heart: [place] heart Associated angina: without angina Qualified Code(s): I25.10 - Atherosclerotic heart disease of [place] coronary artery without angina pectoris Is this a current diagnosis for this admission?: Yes - Time Time Spent: 50 to 70 Minutes Anticipated discharge: Home Within: within 72 hours - Inpatient Certification Based on my medical assessment, after consideration of the patient's comorbidities, presenting symptoms, or acuity I expect that the services needed warrant INPATIENT care.: Yes I certify that my determination is in accordance with my understanding of Medicare's requirements for reasonable and necessary INPATIENT services [42 CFR 412.3e].: Yes Medical Necessity: Significant Comorbidiites Make Outpatient Treatment Too Risky , Need Close Monitoring Due to Risk of Patient Decompensation, Need For IV Fluids, Need for IV Antibiotics 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 Start intravenous antibiotics with Invanz. We will give intravenous hydration with normal saline. We will send culture of the blood and urine and monitor WBC. We will consult hematology for further evaluation of leukocytosis. In the meantime we will obtain a renal CT scan. DVT prophylaxis with Lovenox will be placed. May need urology evaluation due to multiple bouts of recurrent UTI. I will continue her diabetic medication obtain hemoglobin A1c and put on sliding scale. Further testing depends on initial evaluation and response to treatment as outlined above.
[2016-09-13] MEDS ORDERED: ENOXAPARIN SODIUM INJ 40 MG/0.4 ML DISP.SYRIN SUBCUT ONE ×2 (17:00→22:00)
[2016-09-13] MEDS: OXYCODONE-ACETAMINOPHEN 5-325 MG TABLET PO PRN (17:49)
[2016-09-13] MEDS: ERTAPENEM SODIUM 1 GM in NORMAL SALINE 50 ML IV SCH (17:50)
[2016-09-13] MEDS ORDERED: ERTAPENEM SODIUM INJ 1 GM VIAL IV SCH (18:00)
[2016-09-13] MEDS: GABAPENTIN 300 MG CAPSULE PO SCH (21:45)
[2016-09-13] MEDS: LOSARTAN POTASSIUM 50 MG TABLET PO SCH (21:45)
[2016-09-13] MEDS: NORMAL SALINE 1000 ML 1,000 ML IV PRN (21:45)
[2016-09-13] MEDS: METOPROLOL TARTRATE 100 MG TABLET PO SCH (21:46)
[2016-09-13] MEDS: HUM INSULIN NPH/REG INSULIN HM 100 UNIT/1 ML 3 ML SUBCUT SCH (21:47)
[2016-09-13] MEDS: METHOCARBAMOL 500 MG TABLET PO SCH (21:48)
[2016-09-13] MEDS: DOCUSATE SODIUM 100 MG CAPSULE PO SCH (21:49)
[2016-09-14] MEDS: TRAZODONE HCL 50 MG TABLET PO SCH ×2 (02:05→21:29)
[2016-09-14] MEDS: OXYCODONE-ACETAMINOPHEN 5-325 MG TABLET PO PRN ×2 (03:47→18:03)
[2016-09-14] MEDS: NORMAL SALINE 1000 ML 1,000 ML IV PRN ×2 (05:27→18:07)
[2016-09-14] MEDS: LANSOPRAZOLE 30 MG TAB.RAP.DR PO SCH (05:27)
[2016-09-14 05:58] LABS: HEMATOCRIT 47.7 % (36.0-47.0); MEAN CORPUSCULAR HEMOGLOBIN 21.2 pg (27.0-33.4); MEAN CORPUSCULAR HGB CONC 29.5 g/dL (32.0-36.0); MEAN CORPUSCULAR VOLUME 72 fl (80-97); RED BLOOD COUNT 6.63 10^6/uL (3.72-5.28); RED CELL DISTRIBUTION WIDTH 25.7 % (11.5-14.0); WHITE BLOOD COUNT 25.7 10^3/uL (4.0-10.5)
[2016-09-14 06:11] LABS: ANION GAP 9 (5-19); BLOOD UREA NITROGEN 15 mg/dL (7-20); CALCIUM 8.8 mg/dL (8.4-10.2); CARBON DIOXIDE 25 mmol/L (22-30); CHLORIDE 108 mmol/L (98-107); CREATININE RESULT 0.81 mg/dL (0.52-1.25); GLUCOSE 72 mg/dL (75-110); POTASSIUM 4.7 mmol/L (3.6-5.0); SODIUM 142.4 mmol/L (137-145)
[2016-09-14 06:30] LABS: HGB HCT DIFFERENCE -5.7
[2016-09-14 06:32] LABS: BAND NEUTROPHILS % (MANUAL) 5 % (3-5); BASOPHILS % (MANUAL) 0 % (0-2); EOSINOPHILS % (MANUAL) 1 % (0-6); LYMPHOCYTES % (MANUAL) 4 % (13-45); TOTAL CELLS COUNTED 100
[2016-09-14 06:33] LABS: ANISOCYTOSIS 3+; BURR CELLS SLIGHT; HYPOCHROMASIA 1+; MICROCYTOSIS 1+; OVALOCYTES 1+; POIKILOCYTOSIS 1+; POLYCHROMASIA SLIGHT; TEAR DROP CELLS SLIGHT; TOXIC GRANULATION SLIGHT; TOXIC VACUOLATION PRESENT
--- NOTE | 2016-09-14 08:12 | PDOC CONSULTATION ---
Consultation Consult Date: 09/14/16 Attending physician:: LUPILLO SWAN Consult reason:: Leukocytosis History of Present Illness Admission Date/PCP: 09/13/16 15:45 CONSTANZA RAYMOND, Patient complains of: UTI, sepsis History of Present Illness: 81-year-old female with known history of recurrent UTI, here again with UTI, hypotension, tachycardia and concern of sepsis. She has been treated thus far for UTI. She has had several year history of leukocytosis. Her white count ranges anywhere from 14-20, and persistently elevated. Although most of the values we have are from when she is admitted to [facility], and she is always admitted with UTI. Today her white count was 35,000. Of note, when she was admitted in April, we did an extensive leukocytosis workup including Fish for BCR ABL and flow cytometry for leukemia lymphoma panel looking for chronic leukemias. This whole workup was negative. We did find some iron deficiency and she received 1 IV iron infusion as an outpatient however she was then soon after admitted for another UTI at [facility]. 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 Hematology History Note: Persistent leukocytosis, likely reactive because leukemia workup has been negative Past Surgical History Past Surgical History: Reports: Appendectomy, Hysterectomy, Tonsillectomy, Other - Cardiac loop recorder, bilateral cataract surgery Social History Smoking Status: Never Smoker Frequency of Alcohol Use: None Hx Recreational Drug Use: No Drugs: None Hx Prescription Drug Abuse: No - Advance Directive Resuscitation Status: Full Code Family History Family History: DM, Hypertension, Malignancy - Father with lung cancer, Other Parental Family History Reviewed: Yes Children Family History Reviewed: Yes Sibling(s) Family History Reviewed.: Yes Medication/Allergy Home Medications: Aspirin [Aspirin 81 mg Chewable Tablet] 81 mg PO DAILY 09/13/16 Cephalexin [Cephalexin 500 MG Capsule] 1 cap PO Q12 09/13/16 Citalopram Hydrobromide [Celexa] 40 mg PO DAILY 09/13/16 Clopidogrel Bisulfate [Plavix 75 mg Tablet] 75 mg PO DAILY 09/13/16 Docusate Sodium [Colace 100 mg Capsule] 100 mg PO DAILY 09/13/16 Gabapentin [Neurontin 300 mg Capsule] 300 mg PO Q12 09/13/16 Hum Insulin NPH/Reg Insulin Hm [Insulin Inj 70-30 (100 Unit/1 ml) 3 ml Vial] 85 unit SUBCUT BID 09/13/16 Losartan Potassium [Cozaar 50 mg Tablet] 50 mg PO Q12 09/13/16 Methocarbamol [Robaxin] 500 mg PO QID 09/13/16 Metoprolol Tartrate [Lopressor 100 mg Tablet] 100 mg PO Q12 09/13/16 Nystatin [Mycostatin Topical Powder 15 gm] 1 applic TP BID 09/13/16 Oxycodone HCl/Acetaminophen [Percocet 5-325 mg Tablet] 1 tab PO ASDIR PRN Polyethylene Glycol 3350 [Miralax Powder 17 gm/Packet] 17 gm PO Q2D 09/13/16 Sitagliptin Phosphate [Januvia] 100 mg PO DAILY 09/13/16 Trazodone HCl [Desyrel 50 mg Tablet] 50 mg PO QHS 09/13/16 Allergies/Adverse Reactions: amoxicillin Allergy (Intermediate, Verified 08/27/16 15:13) Penicillins Allergy (Verified 08/27/16 15:13) Review of Systems Constitutional: PRESENT: chills, fatigue, fever(s) Cardiovascular: ABSENT: chest pain, dyspnea on exertion, edema, orthropnea, palpitations Gastrointestinal: ABSENT: abdominal pain, constipation, diarrhea, hematemesis, hematochezia, nausea, vomiting Genitourinary: PRESENT: difficulty urinating, dysuria Neurological: ABSENT: abnormal gait, abnormal speech, confusion, dizziness, focal weakness, syncope Hematologic/Lymphatic: ABSENT: easy bleeding, easy bruising Physical Exam Vital Signs: Temp Pulse Resp BP Pulse Ox 98.2 F 84 20 156/76 H 96 09/14/16 04:21 09/14/16 07:00 09/14/16 04:21 09/14/16 04:21 09/14/16 04:21 Intake & Output 09/13/16 09/14/16 09/15/16 06:59 06:59 06:59 Intake Total 1150 Balance 1150 Weight 101.5 kg General appearance: PRESENT: no acute distress, well-developed, well-nourished Head exam: PRESENT: atraumatic, normocephalic Eye exam: PRESENT: conjunctiva pink, EOMI, PERRLA. ABSENT: scleral icterus Ear exam: PRESENT: normal external ear exam Mouth exam: PRESENT: moist, tongue midline Neck exam: ABSENT: carotid bruit, JVD, lymphadenopathy, thyromegaly Respiratory exam: PRESENT: clear to auscultation carmen. ABSENT: rales, rhonchi, wheezes Cardiovascular exam: PRESENT: RRR. ABSENT: diastolic murmur, rubs, systolic murmur Pulses: PRESENT: normal dorsalis pedis pul Vascular exam: PRESENT: normal capillary refill GI/Abdominal exam: PRESENT: normal bowel sounds, soft. ABSENT: distended, guarding, mass, organolmegaly, rebound, tenderness Rectal exam: PRESENT: deferred Extremities exam: PRESENT: full ROM. ABSENT: calf tenderness, clubbing, pedal edema Neurological exam: PRESENT: alert, awake, oriented to person, oriented to place , oriented to time, oriented to situation, CN II-XII grossly intact. ABSENT: motor sensory deficit Psychiatric exam: PRESENT: appropriate affect, normal mood. ABSENT: homicidal ideation, suicidal ideation Skin exam: PRESENT: dry, intact, warm. ABSENT: cyanosis, rash Results Laboratory Results: 09/14/16 05:23 09/14/16 05:23 09/14/16 09/14/16 05:23 05:23 WBC 25.7 H RBC 6.63 H Hgb 14.0 Hct 47.7 H MCV 72 L MCH 21.2 L MCHC 29.5 L RDW 25.7 H Plt Count 373 Seg Neutrophils % Not Reportable Lymphocytes % Not Reportable Monocytes % Not Reportable Eosinophils % Not Reportable Basophils % Not Reportable Absolute Neutrophils Not Reportable Absolute Lymphocytes Not Reportable Absolute Monocytes Not Reportable Absolute Eosinophils Not Reportable Absolute Basophils Not Reportable Sodium 142.4 Potassium 4.7 Chloride 108 H Carbon Dioxide 25 Anion Gap 9 BUN 15 Creatinine 0.81 Est GFR ( Amer) > 60 Est GFR (Non-Af Amer) > 60 Glucose 72 L Calcium 8.8 Impressions: Limited or Localized CT 09/13/16 00:00 IMPRESSION: No renal or ureteric calculi are identified. No obstructive changes are identified. Other findings as noted above Assessment & Plan - Diagnosis (1) Leukocytosis Qualifiers: Leukocytosis type: leukemoid reaction Qualified Code(s): D72.823 - Leukemoid reaction Plan: We have done extensive workup in the past and ruled out chronic leukemia to a large extent, knowing anything that was not done was a bone marrow biopsy, however I don't think that will reveal much because her peripheral blood should' ve shown leukemic transformation if it were there. Otherwise, most likely a reactive process to her recurrent UTI, also she probably has persistent inflammation that is causing this. No further hematologic workup needed. Continue per medical team for treatment of the UTI and sepsis. - Time Time Spent: 50 to 70 Minutes Critical Time spent with patient: 25-34 minutes - Inpatient Certification Based on my medical assessment, after consideration of the patient's comorbidities, presenting symptoms, or acuity I expect that the services needed warrant INPATIENT care.: Yes I certify that my determination is in accordance with my understanding of Medicare's requirements for reasonable and necessary INPATIENT services [42 CFR 412.3e].: Yes Medical Necessity: Failure to Improve With Outpatient Therapy, Need For IV Fluids, Need for IV Antibiotics, Risk of Complication if Not Cared For in Hospital
[2016-09-14] MEDS: ENOXAPARIN SODIUM INJ 40 MG/0.4 ML DISP.SYRIN SUBCUT SCH (08:26)
[2016-09-14] MEDS ORDERED: (PENDING PHARMACY ID) (Citalopram Hydrobromide [Celexa] 40 MG) PO SCH (10:00)
[2016-09-14] MEDS: ASPIRIN 81 MG TABLET, CHEWABLE PO SCH (10:14)
[2016-09-14] MEDS: SITAGLIPTIN PHOSPHATE 50 MG TABLET PO SCH (10:16)
[2016-09-14] MEDS: CITALOPRAM HYDROBROMIDE 20 MG TABLET PO SCH (10:17)
[2016-09-14] MEDS: GABAPENTIN 300 MG CAPSULE PO SCH ×2 (10:18→21:29)
[2016-09-14] MEDS: CLOPIDOGREL BISULFATE 75 MG TABLET PO SCH (10:18)
[2016-09-14] MEDS: DOCUSATE SODIUM 100 MG CAPSULE PO SCH ×2 (10:19→18:07)
[2016-09-14] MEDS: METOPROLOL TARTRATE 100 MG TABLET PO SCH ×2 (10:19→21:29)
[2016-09-14] MEDS: LOSARTAN POTASSIUM 50 MG TABLET PO SCH ×2 (10:20→21:28)
[2016-09-14] MEDS: HUM INSULIN NPH/REG INSULIN HM 100 UNIT/1 ML 3 ML SUBCUT SCH ×2 (12:02→18:07)
[2016-09-14] MEDS: METHOCARBAMOL 500 MG TABLET PO SCH ×4 (12:07→21:29)
--- NOTE | 2016-09-14 13:48 | PDOC PROGRESS REPORT ---
Subjective Progress Note for:: 09/14/16 Subjective:: Patient complains of lower back pain. She reports she gets back pain when she has urinary tract infections. Physical Exam Vital Signs: Temp Pulse Resp BP Pulse Ox 97.9 F 82 18 154/75 H 94 09/14/16 11:49 09/14/16 11:49 09/14/16 11:49 09/14/16 11:49 09/14/16 11:49 Intake & Output 09/13/16 09/14/16 09/15/16 06:59 06:59 06:59 Intake Total 1150 410 Balance 1150 410 Weight 101.5 kg General appearance: PRESENT: no acute distress, obese Eye exam: PRESENT: conjunctiva pink Mouth exam: PRESENT: moist, tongue midline Neck exam: ABSENT: JVD Respiratory exam: PRESENT: clear to auscultation carmen. ABSENT: rales, rhonchi, wheezes Cardiovascular exam: PRESENT: RRR. ABSENT: diastolic murmur, rubs, systolic murmur GI/Abdominal exam: PRESENT: normal bowel sounds, soft, tenderness - Mild suprapubic tenderness. ABSENT: distended, guarding, mass, organolmegaly, rebound Extremities exam: ABSENT: calf tenderness, clubbing, pedal edema Neurological exam: PRESENT: alert, awake, oriented to person, oriented to place , oriented to time, oriented to situation Psychiatric exam: PRESENT: appropriate affect Skin exam: PRESENT: dry, intact, warm. ABSENT: cyanosis, rash Results Laboratory Results: 09/14/16 05:23 09/14/16 05:23 09/14/16 09/14/16 05:23 05:23 WBC 25.7 H RBC 6.63 H Hgb 14.0 Hct 47.7 H MCV 72 L MCH 21.2 L MCHC 29.5 L RDW 25.7 H Plt Count 373 Seg Neutrophils % Not Reportable Lymphocytes % Not Reportable Monocytes % Not Reportable Eosinophils % Not Reportable Basophils % Not Reportable Absolute Neutrophils Not Reportable Absolute Lymphocytes Not Reportable Absolute Monocytes Not Reportable Absolute Eosinophils Not Reportable Absolute Basophils Not Reportable Sodium 142.4 Potassium 4.7 Chloride 108 H Carbon Dioxide 25 Anion Gap 9 BUN 15 Creatinine 0.81 Est GFR ( Amer) > 60 Est GFR (Non-Af Amer) > 60 Glucose 72 L Calcium 8.8 Impressions: Limited or Localized CT 09/13/16 00:00 IMPRESSION: No renal or ureteric calculi are identified. No obstructive changes are identified. Other findings as noted above Assessment & Plan - Diagnosis (1) Sepsis Qualifiers: Sepsis type: sepsis due to unspecified organism Qualified Code(s): A41.9 - Sepsis, unspecified organism Is this a current diagnosis for this admission?: YesPlan: Patient has sepsis from a urinary tract infection. The patient has a history of extended spectrum beta-lactamase resistant bacterium. We'll continue with ertapenem. (2) UTI (urinary tract infection) Qualifiers: Urinary tract infection type: site unspecified Hematuria presence: without hematuria Qualified Code(s): N39.0 - Urinary tract infection, site not specified Is this a current diagnosis for this admission?: YesPlan: Patient has a history of ESBL and we will treat with ertapenem. (3) Anxiety and depression Is this a current diagnosis for this admission?: YesPlan: Continue Celexa. (4) CAD (coronary artery disease) Qualifiers: Coronary Disease-Associated Artery/Lesion type: [place] artery [place] vs. transplanted heart: [place] heart Associated angina: without angina Qualified Code(s): I25.10 - Atherosclerotic heart disease of [place] coronary artery without angina pectoris Is this a current diagnosis for this admission?: YesPlan: Patient denies any chest pain. We'll continue with aspirin, Plavix, and beta lashell. (5) GERD (gastroesophageal reflux disease) Qualifiers: Esophagitis presence: without esophagitis Qualified Code(s): K21.9 - Gastro-esophageal reflux disease without esophagitis Is this a current diagnosis for this admission?: Yes (6) Yeast infection Is this a current diagnosis for this admission?: YesPlan: Patient has a yeast rash underneath her breast and her groin. We'll give nystatin. (7) Hyperlipidemia Qualifiers: Hyperlipidemia type: unspecified Qualified Code(s): E78.5 - Hyperlipidemia, unspecified Is this a current diagnosis for this admission?: Yes (8) Type 2 diabetes mellitus with hyperglycemia Qualifiers: Diabetes mellitus fci insulin use: with fci use Qualified Code(s): E11.65 - Type 2 diabetes mellitus with hyperglycemia Is this a current diagnosis for this admission?: YesPlan: Patient is on Januvia, 70/30 and sliding scale insulin. (9) HTN (hypertension) Qualifiers: Hypertension type: essential hypertension Qualified Code(s): I10 - Essential (primary) hypertension Is this a current diagnosis for this admission?: YesPlan: Continue with beta lashell and ARB. (10) Morbid obesity Qualifiers: Obesity type: unspecified obesity type Qualified Code(s): E66.01 - Morbid (severe) obesity due to excess calories Is this a current diagnosis for this admission?: Yes (11) Anemia Qualifiers: Anemia type: unspecified type Qualified Code(s): D64.9 - Anemia, unspecified Is this a current diagnosis for this admission?: YesPlan: Hemoglobin is currently normal. (12) Diastolic CHF Qualifiers: Congestive heart failure chronicity: chronic Qualified Code(s): I50.32 - Chronic diastolic (congestive) heart failure Is this a current diagnosis for this admission?: YesPlan: Patient is euvolemic. (13) Full code status Is this a current diagnosis for this admission?: Yes - Time Time Spent with patient: 25-34 minutes - Inpatient Certification Medical Necessity: Need for IV Antibiotics
[2016-09-14] MEDS: NYSTATIN TOPICAL POWDER 15 GM TP SCH (18:03)
[2016-09-14] MEDS: ERTAPENEM SODIUM 1 GM in NORMAL SALINE 50 ML IV SCH (18:06)
[2016-09-14] MEDS: ACETAMINOPHEN 325 MG TABLET PO PRN (21:28)
[2016-09-15] MEDS: LANSOPRAZOLE 30 MG TAB.RAP.DR PO SCH (05:43)
[2016-09-15 06:16] LABS: HEMATOCRIT 53.1 % (36.0-47.0); HEMOGLOBIN 15.8 g/dL (12.0-15.5); MEAN CORPUSCULAR HEMOGLOBIN 21.4 pg (27.0-33.4); MEAN CORPUSCULAR HGB CONC 29.7 g/dL (32.0-36.0); MEAN CORPUSCULAR VOLUME 72 fl (80-97); WHITE BLOOD COUNT 29.2 10^3/uL (4.0-10.5)
[2016-09-15 06:21] LABS: HGB HCT DIFFERENCE -5.7; RED BLOOD COUNT 7.39 10^6/uL (3.72-5.28)
[2016-09-15 06:25] LABS: ANION GAP 9 (5-19); BLOOD UREA NITROGEN 11 mg/dL (7-20); CALCIUM 9.3 mg/dL (8.4-10.2); CARBON DIOXIDE 28 mmol/L (22-30); CHLORIDE 106 mmol/L (98-107); GLUCOSE 90 mg/dL (75-110); POTASSIUM 3.9 mmol/L (3.6-5.0); SODIUM 143.4 mmol/L (137-145)
[2016-09-15 06:32] LABS: BAND NEUTROPHILS % (MANUAL) 1 % (3-5); BASOPHILS % (MANUAL) 0 % (0-2); EOSINOPHILS % (MANUAL) 0 % (0-6); LYMPHOCYTES % (MANUAL) 5 % (13-45); TOTAL CELLS COUNTED 100
[2016-09-15 06:33] LABS: TOXIC VACUOLATION PRESENT
[2016-09-15 06:34] LABS: ANISOCYTOSIS 3+; OVALOCYTES SLIGHT; POIKILOCYTOSIS SLIGHT
[2016-09-15 06:35] LABS: TOXIC GRANULATION SLIGHT
[2016-09-15 06:36] LABS: MICROCYTOSIS 1+
[2016-09-15] MEDS ORDERED: BUTALB/ACETAMINOPHEN/CAFFEINE 1 TAB EACH PO PRN (08:34)
--- NOTE | 2016-09-15 12:37 | PDOC PROGRESS REPORT ---
Subjective Progress Note for:: 09/15/16 Subjective:: Patient complains of lower back pain. She reports she gets back pain when she has urinary tract infections. Physical Exam Vital Signs: Temp Pulse Resp BP Pulse Ox 98.3 F 83 16 161/78 H 95 09/15/16 08:07 09/15/16 08:07 09/15/16 08:07 09/15/16 08:07 09/15/16 08:07 Intake & Output 09/14/16 09/15/16 09/16/16 06:59 06:59 06:59 Intake Total 1150 3377 Balance 1150 3377 Weight 101.5 kg 101.1 kg General appearance: PRESENT: no acute distress Eye exam: PRESENT: conjunctiva pink. ABSENT: scleral icterus Mouth exam: PRESENT: moist, tongue midline Neck exam: ABSENT: JVD Respiratory exam: PRESENT: clear to auscultation carmen. ABSENT: rales, rhonchi, wheezes Cardiovascular exam: PRESENT: RRR. ABSENT: diastolic murmur, rubs, systolic murmur GI/Abdominal exam: PRESENT: normal bowel sounds, soft. ABSENT: distended, guarding, mass, organolmegaly, rebound, tenderness Extremities exam: ABSENT: calf tenderness, clubbing, pedal edema Neurological exam: PRESENT: alert, awake, oriented to person, oriented to place , oriented to time, oriented to situation Skin exam: PRESENT: dry, intact, warm. ABSENT: cyanosis, rash Results Laboratory Results: 09/15/16 05:36 09/15/16 05:36 09/15/16 09/15/16 05:36 05:36 WBC 29.2 H RBC 7.39 H Hgb 15.8 H Hct 53.1 H MCV 72 L MCH 21.4 L MCHC 29.7 L RDW 26.0 H Plt Count 392 Seg Neutrophils % Not Reportable Lymphocytes % Not Reportable Monocytes % Not Reportable Eosinophils % Not Reportable Basophils % Not Reportable Absolute Neutrophils Not Reportable Absolute Lymphocytes Not Reportable Absolute Monocytes Not Reportable Absolute Eosinophils Not Reportable Absolute Basophils Not Reportable Sodium 143.4 Potassium 3.9 Chloride 106 Carbon Dioxide 28 Anion Gap 9 BUN 11 Creatinine 1.00 Est GFR ( Amer) > 60 Est GFR (Non-Af Amer) 53 L Glucose 90 Calcium 9.3 Impressions: Limited or Localized CT 09/13/16 00:00 IMPRESSION: No renal or ureteric calculi are identified. No obstructive changes are identified. Other findings as noted above Assessment & Plan - Diagnosis (1) Sepsis Qualifiers: Sepsis type: sepsis due to unspecified organism Qualified Code(s): A41.9 - Sepsis, unspecified organism Is this a current diagnosis for this admission?: YesPlan: Patient has sepsis from a urinary tract infection. The patient has a history of extended spectrum beta-lactamase resistant bacterium. We'll continue with ertapenem. The patient's urine culture is growing out [place] albicans. It's unclear as to whether this is contaminated from a cutaneous infection or whether she truly has infection in her urine. Given her continued elevated white blood cell count we will go ahead and treat with oral Diflucan along with her topical antifungal. We'll also continue with the ertapenem given her history of ESBL. (2) UTI (urinary tract infection) Qualifiers: Urinary tract infection type: site unspecified Hematuria presence: without hematuria Qualified Code(s): N39.0 - Urinary tract infection, site not specified Is this a current diagnosis for this admission?: YesPlan: Patient has a history of ESBL and we will treat with ertapenem. Patient also is growing out [place] albicans from her urine. Will add on Diflucan. (3) Anxiety and depression Is this a current diagnosis for this admission?: YesPlan: Continue Celexa. (4) CAD (coronary artery disease) Qualifiers: Coronary Disease-Associated Artery/Lesion type: [place] artery [place] vs. transplanted heart: [place] heart Associated angina: without angina Qualified Code(s): I25.10 - Atherosclerotic heart disease of [place] coronary artery without angina pectoris Is this a current diagnosis for this admission?: YesPlan: Patient denies any chest pain. We'll continue with aspirin, Plavix, and beta lashell. (5) GERD (gastroesophageal reflux disease) Qualifiers: Esophagitis presence: without esophagitis Qualified Code(s): K21.9 - Gastro-esophageal reflux disease without esophagitis Is this a current diagnosis for this admission?: YesPlan: Asymptomatic (6) Yeast infection Is this a current diagnosis for this admission?: YesPlan: Patient has a yeast rash underneath her breast and her groin. We'll give nystatin topically and Diflucan by mouth because of her positive urine culture. (7) Hyperlipidemia Qualifiers: Hyperlipidemia type: unspecified Qualified Code(s): E78.5 - Hyperlipidemia, unspecified Is this a current diagnosis for this admission?: Yes (8) Type 2 diabetes mellitus with hyperglycemia Qualifiers: Diabetes mellitus [place] insulin use: with prison use Qualified Code(s): E11.65 - Type 2 diabetes mellitus with hyperglycemia Is this a current diagnosis for this admission?: YesPlan: Patient is on Januvia, 70/30 and sliding scale insulin. (9) HTN (hypertension) Qualifiers: Hypertension type: essential hypertension Qualified Code(s): I10 - Essential (primary) hypertension Is this a current diagnosis for this admission?: YesPlan: Continue with Cozaar and Lopressor. (10) Morbid obesity Qualifiers: Obesity type: unspecified obesity type Qualified Code(s): E66.01 - Morbid (severe) obesity due to excess calories Is this a current diagnosis for this admission?: Yes (11) Anemia Qualifiers: Anemia type: unspecified type Qualified Code(s): D64.9 - Anemia, unspecified Is this a current diagnosis for this admission?: YesPlan: Hemoglobin is currently normal. (12) Diastolic CHF Qualifiers: Congestive heart failure chronicity: chronic Qualified Code(s): I50.32 - Chronic diastolic (congestive) heart failure Is this a current diagnosis for this admission?: YesPlan: Patient is euvolemic. (13) Full code status Is this a current diagnosis for this admission?: Yes - Time Time Spent with patient: 25-34 minutes - Inpatient Certification Medical Necessity: Need for IV Antibiotics
[2016-09-15] MEDS: GABAPENTIN 300 MG CAPSULE PO SCH ×2 (13:55→21:42)
[2016-09-15] MEDS: CITALOPRAM HYDROBROMIDE 20 MG TABLET PO SCH (13:55)
[2016-09-15] MEDS: SITAGLIPTIN PHOSPHATE 50 MG TABLET PO SCH (13:55)
[2016-09-15] MEDS: METOPROLOL TARTRATE 100 MG TABLET PO SCH ×2 (13:55→21:42)
[2016-09-15] MEDS: DOCUSATE SODIUM 100 MG CAPSULE PO SCH ×2 (13:56→20:25)
[2016-09-15] MEDS: ASPIRIN 81 MG TABLET, CHEWABLE PO SCH (13:56)
[2016-09-15] MEDS: LOSARTAN POTASSIUM 50 MG TABLET PO SCH ×2 (13:56→21:41)
[2016-09-15] MEDS: CLOPIDOGREL BISULFATE 75 MG TABLET PO SCH (13:57)
[2016-09-15] MEDS: ENOXAPARIN SODIUM INJ 40 MG/0.4 ML DISP.SYRIN SUBCUT SCH (13:58)
[2016-09-15] MEDS: METHOCARBAMOL 500 MG TABLET PO SCH ×4 (13:58→21:42)
[2016-09-15] MEDS: NYSTATIN TOPICAL POWDER 15 GM TP SCH ×2 (13:58→20:26)
[2016-09-15] MEDS: HUM INSULIN NPH/REG INSULIN HM 100 UNIT/1 ML 3 ML SUBCUT SCH ×2 (13:59→20:26)
[2016-09-15] MEDS ORDERED: FLUCONAZOLE 100 MG TABLET PO ONE (14:00)
[2016-09-15] MEDS: ERTAPENEM SODIUM 1 GM in NORMAL SALINE 50 ML IV SCH (20:26)
[2016-09-15] MEDS: TRAZODONE HCL 50 MG TABLET PO SCH (21:41)
[2016-09-16] MEDS: LANSOPRAZOLE 30 MG TAB.RAP.DR PO SCH (05:28)
[2016-09-16 06:51] LABS: HEMATOCRIT 47.6 % (36.0-47.0); HEMOGLOBIN 14.1 g/dL (12.0-15.5); MEAN CORPUSCULAR HEMOGLOBIN 21.3 pg (27.0-33.4); MEAN CORPUSCULAR HGB CONC 29.6 g/dL (32.0-36.0); MEAN CORPUSCULAR VOLUME 72 fl (80-97); RED BLOOD COUNT 6.62 10^6/uL (3.72-5.28); RED CELL DISTRIBUTION WIDTH 25.1 % (11.5-14.0); WHITE BLOOD COUNT 25.6 10^3/uL (4.0-10.5)
[2016-09-16 07:06] LABS: ANION GAP 10 (5-19); BLOOD UREA NITROGEN 11 mg/dL (7-20); CALCIUM 9.6 mg/dL (8.4-10.2); CARBON DIOXIDE 26 mmol/L (22-30); CHLORIDE 109 mmol/L (98-107); CREATININE RESULT 0.74 mg/dL (0.52-1.25); POTASSIUM 4.2 mmol/L (3.6-5.0); SODIUM 145.1 mmol/L (137-145)
[2016-09-16 07:25] LABS: GLUCOSE 34 mg/dL (75-110)
[2016-09-16 07:39] LABS: HGB HCT DIFFERENCE -5.3
[2016-09-16 07:49] LABS: ANISOCYTOSIS 3+; BAND NEUTROPHILS % (MANUAL) 2 % (3-5); BASOPHILS % (MANUAL) 0 % (0-2); EOSINOPHILS % (MANUAL) 2 % (0-6); HYPOCHROMASIA SLIGHT; LYMPHOCYTES % (MANUAL) 4 % (13-45); OVALOCYTES 2+; POIKILOCYTOSIS 2+; TEAR DROP CELLS SLIGHT; TOTAL CELLS COUNTED 100
--- NOTE | 2016-09-16 09:51 | PDOC PROGRESS REPORT ---
Subjective Progress Note for:: 09/16/16 Subjective:: Patient reports that her back pain is improved. Physical Exam Vital Signs: Temp Pulse Resp BP Pulse Ox 97.3 F 71 20 150/88 H 97 09/16/16 07:46 09/16/16 07:46 09/16/16 07:46 09/16/16 07:46 09/16/16 07:46 Intake & Output 09/15/16 09/16/16 09/17/16 06:59 06:59 06:59 Intake Total 3377 3080 Balance 3377 3080 Weight 101.1 kg 101.1 kg General appearance: PRESENT: no acute distress Eye exam: PRESENT: conjunctiva pink. ABSENT: scleral icterus Mouth exam: PRESENT: moist, tongue midline Neck exam: ABSENT: carotid bruit, JVD, lymphadenopathy, thyromegaly Respiratory exam: PRESENT: clear to auscultation carmen. ABSENT: rales, rhonchi, wheezes Cardiovascular exam: PRESENT: RRR. ABSENT: diastolic murmur, rubs, systolic murmur GI/Abdominal exam: PRESENT: normal bowel sounds, soft. ABSENT: distended, guarding, mass, organolmegaly, rebound, tenderness Extremities exam: ABSENT: calf tenderness, clubbing, pedal edema Neurological exam: PRESENT: alert, awake, oriented to person, oriented to place , oriented to time, oriented to situation Psychiatric exam: PRESENT: appropriate affect Skin exam: PRESENT: dry, intact, warm. ABSENT: cyanosis, rash Results Laboratory Results: 09/16/16 05:48 09/16/16 05:48 09/16/16 09/16/16 05:48 05:48 WBC 25.6 H RBC 6.62 H Hgb 14.1 Hct 47.6 H MCV 72 L MCH 21.3 L MCHC 29.6 L RDW 25.1 H Plt Count 375 Seg Neutrophils % Not Reportable Lymphocytes % Not Reportable Monocytes % Not Reportable Eosinophils % Not Reportable Basophils % Not Reportable Absolute Neutrophils Not Reportable Absolute Lymphocytes Not Reportable Absolute Monocytes Not Reportable Absolute Eosinophils Not Reportable Absolute Basophils Not Reportable Sodium 145.1 H Potassium 4.2 Chloride 109 H Carbon Dioxide 26 Anion Gap 10 BUN 11 Creatinine 0.74 Est GFR ( Amer) > 60 Est GFR (Non-Af Amer) > 60 Glucose 34 L* Calcium 9.6 Impressions: Limited or Localized CT 09/13/16 00:00 IMPRESSION: No renal or ureteric calculi are identified. No obstructive changes are identified. Other findings as noted above Assessment & Plan - Diagnosis (1) Sepsis Qualifiers: Sepsis type: sepsis due to unspecified organism Qualified Code(s): A41.9 - Sepsis, unspecified organism Is this a current diagnosis for this admission?: YesPlan: Patient has sepsis from a urinary tract infection. The patient has a history of extended spectrum beta-lactamase resistant bacterium. We'll continue with ertapenem. The patient's urine culture is growing out [place] albicans. It's unclear as to whether this is contaminated from a cutaneous infection or whether she truly has infection in her urine. Given her continued elevated white blood cell count we will go ahead and treat with oral Diflucan along with her topical antifungal. We'll also continue with the ertapenem given her history of ESBL. The patient in the past has had ESBL that been resistant to everything except for Macrobid. (2) UTI (urinary tract infection) Qualifiers: Urinary tract infection type: site unspecified Hematuria presence: without hematuria Qualified Code(s): N39.0 - Urinary tract infection, site not specified Is this a current diagnosis for this admission?: YesPlan: Patient has a history of ESBL and we will treat with ertapenem. Patient also is growing out [place] albicans from her urine. Negative for any bacterial growth so far. Will continue with Diflucan. (3) Anxiety and depression Is this a current diagnosis for this admission?: YesPlan: Continue Celexa. (4) CAD (coronary artery disease) Qualifiers: Coronary Disease-Associated Artery/Lesion type: [place] artery [place] vs. transplanted heart: [place] heart Associated angina: without angina Qualified Code(s): I25.10 - Atherosclerotic heart disease of [place] coronary artery without angina pectoris Is this a current diagnosis for this admission?: YesPlan: Patient denies any chest pain. We'll continue with aspirin, Plavix, and beta lashell. (5) GERD (gastroesophageal reflux disease) Qualifiers: Esophagitis presence: without esophagitis Qualified Code(s): K21.9 - Gastro-esophageal reflux disease without esophagitis Is this a current diagnosis for this admission?: YesPlan: Asymptomatic (6) Yeast infection Is this a current diagnosis for this admission?: YesPlan: Patient has a yeast rash underneath her breast and her groin. We'll give nystatin topically and Diflucan by mouth because of her positive urine culture. (7) Hyperlipidemia Qualifiers: Hyperlipidemia type: unspecified Qualified Code(s): E78.5 - Hyperlipidemia, unspecified Is this a current diagnosis for this admission?: Yes (8) Type 2 diabetes mellitus with hyperglycemia Qualifiers: Diabetes mellitus nursing home insulin use: with adjunct faculty for medical terminology use Qualified Code(s): E11.65 - Type 2 diabetes mellitus with hyperglycemia Is this a current diagnosis for this admission?: YesPlan: Patient is on Januvia, 70/30 and sliding scale insulin. (9) HTN (hypertension) Qualifiers: Hypertension type: essential hypertension Qualified Code(s): I10 - Essential (primary) hypertension Is this a current diagnosis for this admission?: YesPlan: Continue with Cozaar and Lopressor. (10) Morbid obesity Qualifiers: Obesity type: unspecified obesity type Qualified Code(s): E66.01 - Morbid (severe) obesity due to excess calories Is this a current diagnosis for this admission?: Yes (11) Anemia Qualifiers: Anemia type: unspecified type Qualified Code(s): D64.9 - Anemia, unspecified Is this a current diagnosis for this admission?: YesPlan: Hemoglobin is currently normal. (12) Diastolic CHF Qualifiers: Congestive heart failure chronicity: chronic Qualified Code(s): I50.32 - Chronic diastolic (congestive) heart failure Is this a current diagnosis for this admission?: YesPlan: Patient is euvolemic. (13) Full code status Is this a current diagnosis for this admission?: Yes - Time Time Spent with patient: 25-34 minutes - Inpatient Certification Medical Necessity: Need for IV Antibiotics - Plan Summary Plan Summary: If she continues to improve clinically hopefully we can discharge home tomorrow.
[2016-09-16] MEDS: DOCUSATE SODIUM 100 MG CAPSULE PO SCH ×2 (11:18→17:25)
[2016-09-16] MEDS: GABAPENTIN 300 MG CAPSULE PO SCH ×2 (11:18→22:35)
[2016-09-16] MEDS: CITALOPRAM HYDROBROMIDE 20 MG TABLET PO SCH (11:18)
[2016-09-16] MEDS: CLOPIDOGREL BISULFATE 75 MG TABLET PO SCH (11:19)
[2016-09-16] MEDS: FLUCONAZOLE 100 MG TABLET PO SCH (11:19)
[2016-09-16] MEDS: LOSARTAN POTASSIUM 50 MG TABLET PO SCH ×2 (11:19→22:35)
[2016-09-16] MEDS: SITAGLIPTIN PHOSPHATE 50 MG TABLET PO SCH (11:19)
[2016-09-16] MEDS: METOPROLOL TARTRATE 100 MG TABLET PO SCH ×2 (11:20→22:35)
[2016-09-16] MEDS: ASPIRIN 81 MG TABLET, CHEWABLE PO SCH (11:20)
[2016-09-16] MEDS: ENOXAPARIN SODIUM INJ 40 MG/0.4 ML DISP.SYRIN SUBCUT SCH (11:20)
[2016-09-16] MEDS: NYSTATIN TOPICAL POWDER 15 GM TP SCH ×2 (11:20→17:26)
[2016-09-16] MEDS: METHOCARBAMOL 500 MG TABLET PO SCH ×4 (11:25→22:34)
[2016-09-16] MEDS: HUM INSULIN NPH/REG INSULIN HM 100 UNIT/1 ML 3 ML SUBCUT SCH ×2 (11:27→17:26)
[2016-09-16] MEDS: ERTAPENEM SODIUM 1 GM in NORMAL SALINE 50 ML IV SCH (17:25)
[2016-09-16] MEDS: TRAZODONE HCL 50 MG TABLET PO SCH (22:34)
[2016-09-16] MEDS: NORMAL SALINE 1000 ML 1,000 ML IV PRN (22:36)
[2016-09-17] MEDS: LANSOPRAZOLE 30 MG TAB.RAP.DR PO SCH (06:17)
[2016-09-17 07:26] LABS: HEMATOCRIT 52.3 % (36.0-47.0); MEAN CORPUSCULAR HEMOGLOBIN 21.4 pg (27.0-33.4); MEAN CORPUSCULAR HGB CONC 29.9 g/dL (32.0-36.0); MEAN CORPUSCULAR VOLUME 72 fl (80-97); RED CELL DISTRIBUTION WIDTH 26.2 % (11.5-14.0); WHITE BLOOD COUNT 29.7 10^3/uL (4.0-10.5)
[2016-09-17 07:35] LABS: ANION GAP 11 (5-19); BLOOD UREA NITROGEN 13 mg/dL (7-20); CALCIUM 9.6 mg/dL (8.4-10.2); CARBON DIOXIDE 26 mmol/L (22-30); CHLORIDE 108 mmol/L (98-107); CREATININE RESULT 0.89 mg/dL (0.52-1.25); GLUCOSE 68 mg/dL (75-110); POTASSIUM 4.6 mmol/L (3.6-5.0); SODIUM 145.3 mmol/L (137-145)
[2016-09-17 07:54] LABS: HEMOGLOBIN 15.6 g/dL (12.0-15.5); HGB HCT DIFFERENCE -5.5
[2016-09-17 07:55] LABS: RED BLOOD COUNT 7.31 10^6/uL (3.72-5.28)
[2016-09-17 07:58] LABS: ANISOCYTOSIS 3+; BAND NEUTROPHILS % (MANUAL) 2 % (3-5); BASOPHILS % (MANUAL) 2 % (0-2); EOSINOPHILS % (MANUAL) 1 % (0-6); LYMPHOCYTES % (MANUAL) 6 % (13-45); MICROCYTOSIS 2+; PLATELET CLUMPS PRESENT; TOTAL CELLS COUNTED 100; TOXIC VACUOLATION PRESENT
[2016-09-17] MEDS: ENOXAPARIN SODIUM INJ 40 MG/0.4 ML DISP.SYRIN SUBCUT SCH (08:32)
[2016-09-17] MEDS: METOPROLOL TARTRATE 100 MG TABLET PO SCH ×2 (10:39→21:26)
[2016-09-17] MEDS: FLUCONAZOLE 100 MG TABLET PO SCH (10:39)
[2016-09-17] MEDS: CLOPIDOGREL BISULFATE 75 MG TABLET PO SCH (10:41)
[2016-09-17] MEDS: CITALOPRAM HYDROBROMIDE 20 MG TABLET PO SCH (10:41)
[2016-09-17] MEDS: GABAPENTIN 300 MG CAPSULE PO SCH ×2 (10:41→21:25)
[2016-09-17] MEDS: LOSARTAN POTASSIUM 50 MG TABLET PO SCH ×2 (10:41→21:26)
[2016-09-17] MEDS: HUM INSULIN NPH/REG INSULIN HM 100 UNIT/1 ML 3 ML SUBCUT SCH (10:42)
[2016-09-17] MEDS: DOCUSATE SODIUM 100 MG CAPSULE PO SCH ×2 (10:42→18:31)
[2016-09-17] MEDS: NYSTATIN TOPICAL POWDER 15 GM TP SCH ×2 (10:42→18:32)
[2016-09-17] MEDS: METHOCARBAMOL 500 MG TABLET PO SCH ×4 (10:42→21:25)
[2016-09-17] MEDS: SITAGLIPTIN PHOSPHATE 50 MG TABLET PO SCH (10:42)
[2016-09-17] MEDS: ASPIRIN 81 MG TABLET, CHEWABLE PO SCH (10:42)
[2016-09-17] MEDS: OXYCODONE-ACETAMINOPHEN 5-325 MG TABLET PO PRN (13:57)
--- NOTE | 2016-09-17 14:00 | PDOC PROGRESS REPORT ---
Subjective Progress Note for:: 09/17/16 Subjective:: Complains of nausea. Physical Exam Vital Signs: Temp Pulse Resp BP Pulse Ox 98.1 F 81 17 164/67 H 97 09/17/16 11:20 09/17/16 11:20 09/17/16 11:20 09/17/16 11:20 09/17/16 11:20 Intake & Output 09/16/16 09/17/16 09/18/16 06:59 06:59 06:59 Intake Total 3080 2877 Balance 3080 2877 Weight 101.1 kg 101.1 kg General appearance: PRESENT: no acute distress Eye exam: PRESENT: conjunctiva pink. ABSENT: scleral icterus Mouth exam: PRESENT: moist, tongue midline Neck exam: ABSENT: JVD Respiratory exam: PRESENT: clear to auscultation carmen. ABSENT: rales, rhonchi, wheezes Cardiovascular exam: PRESENT: RRR. ABSENT: diastolic murmur, rubs, systolic murmur GI/Abdominal exam: PRESENT: normal bowel sounds, soft. ABSENT: distended, guarding, mass, organolmegaly, rebound, tenderness Extremities exam: ABSENT: calf tenderness, clubbing, full ROM, pedal edema Neurological exam: PRESENT: alert, awake, oriented to person, oriented to place , oriented to time, oriented to situation Psychiatric exam: PRESENT: appropriate affect Skin exam: PRESENT: dry, intact, warm. ABSENT: cyanosis, rash Results Laboratory Results: 09/17/16 06:09 09/17/16 06:09 09/17/16 09/17/16 06:09 06:09 WBC 29.7 H RBC 7.31 H Hgb 15.6 H Hct 52.3 H MCV 72 L MCH 21.4 L MCHC 29.9 L RDW 26.2 H Plt Count 400 Seg Neutrophils % Not Reportable Lymphocytes % Not Reportable Monocytes % Not Reportable Eosinophils % Not Reportable Basophils % Not Reportable Absolute Neutrophils Not Reportable Absolute Lymphocytes Not Reportable Absolute Monocytes Not Reportable Absolute Eosinophils Not Reportable Absolute Basophils Not Reportable Sodium 145.3 H Potassium 4.6 Chloride 108 H Carbon Dioxide 26 Anion Gap 11 BUN 13 Creatinine 0.89 Est GFR ( Amer) > 60 Est GFR (Non-Af Amer) > 60 Glucose 68 L Calcium 9.6 Impressions: Limited or Localized CT 09/13/16 00:00 IMPRESSION: No renal or ureteric calculi are identified. No obstructive changes are identified. Other findings as noted above Assessment & Plan - Diagnosis (1) Sepsis Qualifiers: Sepsis type: sepsis due to unspecified organism Qualified Code(s): A41.9 - Sepsis, unspecified organism Is this a current diagnosis for this admission?: YesPlan: Patient has sepsis from a urinary tract infection. The patient has a history of extended spectrum beta-lactamase resistant bacterium. We'll continue with ertapenem. The patient's urine culture is growing out [place] albicans. It's unclear as to whether this is contaminated from a cutaneous infection or whether she truly has infection in her urine. Given her continued elevated white blood cell count we will go ahead and treat with oral Diflucan along with her topical antifungal. We'll also continue with the ertapenem given her history of ESBL. The patient in the past has had ESBL that been resistant to everything except for Macrobid for by mouth medications. (2) UTI (urinary tract infection) Qualifiers: Urinary tract infection type: site unspecified Hematuria presence: without hematuria Qualified Code(s): N39.0 - Urinary tract infection, site not specified Is this a current diagnosis for this admission?: YesPlan: Patient has a history of ESBL and we will treat with ertapenem. Patient also is growing out [place] albicans from her urine. Negative for any bacterial growth so far. Will continue with Diflucan. (3) Anxiety and depression Is this a current diagnosis for this admission?: YesPlan: Continue Celexa. (4) CAD (coronary artery disease) Qualifiers: Coronary Disease-Associated Artery/Lesion type: [place] artery [place] vs. transplanted heart: [place] heart Associated angina: without angina Qualified Code(s): I25.10 - Atherosclerotic heart disease of [place] coronary artery without angina pectoris Is this a current diagnosis for this admission?: YesPlan: Patient denies any chest pain. We'll continue with aspirin, Plavix, and beta lashell. (5) GERD (gastroesophageal reflux disease) Qualifiers: Esophagitis presence: without esophagitis Qualified Code(s): K21.9 - Gastro-esophageal reflux disease without esophagitis Is this a current diagnosis for this admission?: YesPlan: Asymptomatic (6) Yeast infection Is this a current diagnosis for this admission?: YesPlan: Patient has a yeast rash underneath her breast and her groin. Continue nystatin topically and Diflucan by mouth because of her positive urine culture. (7) Hyperlipidemia Qualifiers: Hyperlipidemia type: unspecified Qualified Code(s): E78.5 - Hyperlipidemia, unspecified Is this a current diagnosis for this admission?: Yes (8) Type 2 diabetes mellitus with hyperglycemia Qualifiers: Diabetes mellitus joint terminal attack controller insulin use: with nursing home use Qualified Code(s): E11.65 - Type 2 diabetes mellitus with hyperglycemia Is this a current diagnosis for this admission?: YesPlan: Patient is on Januvia, 70/30 and sliding scale insulin. (9) HTN (hypertension) Qualifiers: Hypertension type: essential hypertension Qualified Code(s): I10 - Essential (primary) hypertension Is this a current diagnosis for this admission?: YesPlan: Continue with Cozaar and Lopressor. (10) Morbid obesity Qualifiers: Obesity type: unspecified obesity type Qualified Code(s): E66.01 - Morbid (severe) obesity due to excess calories Is this a current diagnosis for this admission?: Yes (11) Anemia Qualifiers: Anemia type: unspecified type Qualified Code(s): D64.9 - Anemia, unspecified Is this a current diagnosis for this admission?: YesPlan: Hemoglobin is currently normal. (12) Diastolic CHF Qualifiers: Congestive heart failure chronicity: chronic Qualified Code(s): I50.32 - Chronic diastolic (congestive) heart failure Is this a current diagnosis for this admission?: YesPlan: Patient is euvolemic. (13) Full code status Is this a current diagnosis for this admission?: Yes - Time Time Spent with patient: 25-34 minutes - Inpatient Certification Medical Necessity: Need for IV Antibiotics
[2016-09-17] MEDS ORDERED: HYDROMORPHONE HCL INJ/PF 2 MG/ML AMPULE IV PRN (17:04)
[2016-09-17] MEDS ORDERED: HUM INSULIN NPH/REG INSULIN HM 100 UNIT/1 ML 3 ML SUBCUT SCH (18:00)
[2016-09-17] MEDS: ERTAPENEM SODIUM 1 GM in NORMAL SALINE 50 ML IV SCH (18:31)
[2016-09-17] MEDS: TRAZODONE HCL 50 MG TABLET PO SCH (21:25)
[2016-09-18] MEDS: LANSOPRAZOLE 30 MG TAB.RAP.DR PO SCH (05:05)
[2016-09-18 05:49] LABS: HEMOGLOBIN 14.5 g/dL (12.0-15.5); MEAN CORPUSCULAR HEMOGLOBIN 21.3 pg (27.0-33.4); MEAN CORPUSCULAR HGB CONC 30.3 g/dL (32.0-36.0); MEAN CORPUSCULAR VOLUME 70 fl (80-97); RED BLOOD COUNT 6.83 10^6/uL (3.72-5.28); RED CELL DISTRIBUTION WIDTH 24.9 % (11.5-14.0); WHITE BLOOD COUNT 28.2 10^3/uL (4.0-10.5)
[2016-09-18 06:02] LABS: ANION GAP 10 (5-19); BLOOD UREA NITROGEN 13 mg/dL (7-20); CALCIUM 9.4 mg/dL (8.4-10.2); CARBON DIOXIDE 25 mmol/L (22-30); CHLORIDE 107 mmol/L (98-107); CREATININE RESULT 0.73 mg/dL (0.52-1.25); GLUCOSE 159 mg/dL (75-110); POTASSIUM 4.4 mmol/L (3.6-5.0); SODIUM 142.3 mmol/L (137-145)
[2016-09-18 06:09] LABS: HGB HCT DIFFERENCE -4.5
[2016-09-18 06:17] LABS: BAND NEUTROPHILS % (MANUAL) 5 % (3-5); BASOPHILS % (MANUAL) 0 % (0-2); EOSINOPHILS % (MANUAL) 1 % (0-6); LYMPHOCYTES % (MANUAL) 2 % (13-45); TOTAL CELLS COUNTED 100
[2016-09-18 06:19] LABS: HYPOCHROMASIA 1+; POLYCHROMASIA SLIGHT; TOXIC GRANULATION SLIGHT
[2016-09-18 06:20] LABS: ANISOCYTOSIS 3+; OVALOCYTES 2+; POIKILOCYTOSIS 2+; TEAR DROP CELLS 1+
[2016-09-18] MEDS: CITALOPRAM HYDROBROMIDE 20 MG TABLET PO SCH (10:12)
[2016-09-18] MEDS: SITAGLIPTIN PHOSPHATE 50 MG TABLET PO SCH (10:12)
[2016-09-18] MEDS: ASPIRIN 81 MG TABLET, CHEWABLE PO SCH (10:12)
[2016-09-18] MEDS: DOCUSATE SODIUM 100 MG CAPSULE PO SCH ×2 (10:12→17:49)
[2016-09-18] MEDS: LOSARTAN POTASSIUM 50 MG TABLET PO SCH ×2 (10:12→21:31)
[2016-09-18] MEDS: CLOPIDOGREL BISULFATE 75 MG TABLET PO SCH (10:12)
[2016-09-18] MEDS: METOPROLOL TARTRATE 100 MG TABLET PO SCH ×2 (10:12→21:30)
[2016-09-18] MEDS: NYSTATIN TOPICAL POWDER 15 GM TP SCH ×2 (10:12→17:49)
[2016-09-18] MEDS: GABAPENTIN 300 MG CAPSULE PO SCH ×2 (10:12→21:30)
[2016-09-18] MEDS: FLUCONAZOLE 100 MG TABLET PO SCH (10:12)
[2016-09-18] MEDS: METHOCARBAMOL 500 MG TABLET PO SCH ×4 (10:13→21:31)
[2016-09-18] MEDS: ENOXAPARIN SODIUM INJ 40 MG/0.4 ML DISP.SYRIN SUBCUT SCH (10:13)
[2016-09-18] MEDS ORDERED: HUM INSULIN NPH/REG INSULIN HM 100 UNIT/1 ML 3 ML SUBCUT ONE (10:30)
--- NOTE | 2016-09-18 10:57 | PDOC PROGRESS REPORT ---
Subjective Progress Note for:: 09/18/16 Subjective:: Complained of lower abdominal pain. Bladder scan showed her to have greater than 700 mL. Silva catheter placed with relief of pain. Physical Exam Vital Signs: Temp Pulse Resp BP Pulse Ox 98.2 F 121 H 18 116/67 96 09/18/16 08:06 09/18/16 08:06 09/18/16 08:06 09/18/16 08:06 09/18/16 08:06 Intake & Output 09/17/16 09/18/16 09/19/16 06:59 06:59 06:59 Intake Total 2877 3700 Output Total 1300 Balance 2877 2400 Weight 101.1 kg 101.1 kg General appearance: PRESENT: no acute distress Eye exam: PRESENT: conjunctiva pink. ABSENT: scleral icterus Ear exam: PRESENT: normal external ear exam Mouth exam: PRESENT: moist, tongue midline Neck exam: ABSENT: JVD Respiratory exam: PRESENT: clear to auscultation carmen. ABSENT: rales, rhonchi, wheezes Cardiovascular exam: PRESENT: RRR. ABSENT: diastolic murmur, rubs, systolic murmur GI/Abdominal exam: PRESENT: normal bowel sounds, soft. ABSENT: distended, guarding, mass, organolmegaly, rebound, tenderness Extremities exam: ABSENT: calf tenderness, clubbing, pedal edema Neurological exam: PRESENT: alert, awake, oriented to person, oriented to place , oriented to time, oriented to situation Psychiatric exam: PRESENT: appropriate affect Skin exam: PRESENT: dry, intact, warm. ABSENT: cyanosis, rash Results Laboratory Results: 09/18/16 04:40 09/18/16 04:40 09/18/16 09/18/16 04:40 04:40 WBC 28.2 H RBC 6.83 H Hgb 14.5 Hct 48.0 H MCV 70 L MCH 21.3 L MCHC 30.3 L RDW 24.9 H Plt Count 361 Seg Neutrophils % Not Reportable Lymphocytes % Not Reportable Monocytes % Not Reportable Eosinophils % Not Reportable Basophils % Not Reportable Absolute Neutrophils Not Reportable Absolute Lymphocytes Not Reportable Absolute Monocytes Not Reportable Absolute Eosinophils Not Reportable Absolute Basophils Not Reportable Sodium 142.3 Potassium 4.4 Chloride 107 Carbon Dioxide 25 Anion Gap 10 BUN 13 Creatinine 0.73 Est GFR ( Amer) > 60 Est GFR (Non-Af Amer) > 60 Glucose 159 H Calcium 9.4 Impressions: Limited or Localized CT 09/13/16 00:00 IMPRESSION: No renal or ureteric calculi are identified. No obstructive changes are identified. Other findings as noted above Assessment & Plan - Diagnosis (1) Sepsis Qualifiers: Sepsis type: sepsis due to unspecified organism Qualified Code(s): A41.9 - Sepsis, unspecified organism Is this a current diagnosis for this admission?: YesPlan: Patient has sepsis from a urinary tract infection. The patient has a history of extended spectrum beta-lactamase resistant bacterium. We'll continue with ertapenem. The patient's urine culture is growing out [place] albicans. It's unclear as to whether this is contaminated from a cutaneous infection or whether she truly has infection in her urine. Given her continued elevated white blood cell count we will go ahead and treat with oral Diflucan along with her topical antifungal. We'll also continue with the ertapenem given her history of ESBL. The patient in the past has had ESBL that been resistant to everything except for Macrobid for by mouth medications. (2) UTI (urinary tract infection) Qualifiers: Urinary tract infection type: site unspecified Hematuria presence: without hematuria Qualified Code(s): N39.0 - Urinary tract infection, site not specified Is this a current diagnosis for this admission?: YesPlan: Patient has a history of ESBL and we will treat with ertapenem. Patient also is growing out [place] albicans from her urine. Negative for any bacterial growth so far. Will continue with Diflucan. (3) Anxiety and depression Is this a current diagnosis for this admission?: YesPlan: Continue Celexa. (4) CAD (coronary artery disease) Qualifiers: Coronary Disease-Associated Artery/Lesion type: [place] artery [place] vs. transplanted heart: [place] heart Associated angina: without angina Qualified Code(s): I25.10 - Atherosclerotic heart disease of [place] coronary artery without angina pectoris Is this a current diagnosis for this admission?: YesPlan: Patient denies any chest pain. We'll continue with aspirin, Plavix, and beta lashell. (5) GERD (gastroesophageal reflux disease) Qualifiers: Esophagitis presence: without esophagitis Qualified Code(s): K21.9 - Gastro-esophageal reflux disease without esophagitis Is this a current diagnosis for this admission?: YesPlan: Asymptomatic (6) Yeast infection Is this a current diagnosis for this admission?: YesPlan: Patient has a yeast rash underneath her breast and her groin. Continue nystatin topically and Diflucan by mouth because of her positive urine culture. 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 She has had low blood sugars 2 days in a row and we will decrease her scheduled dose to 60 units twice a day. (9) HTN (hypertension) Qualifiers: Hypertension type: essential hypertension Qualified Code(s): I10 - Essential (primary) hypertension Is this a current diagnosis for this admission?: YesPlan: Continue with Cozaar and Lopressor. (10) Morbid obesity Qualifiers: Obesity type: unspecified obesity type Qualified Code(s): E66.01 - Morbid (severe) obesity due to excess calories Is this a current diagnosis for this admission?: Yes (11) Anemia Qualifiers: Anemia type: unspecified type Qualified Code(s): D64.9 - Anemia, unspecified Is this a current diagnosis for this admission?: YesPlan: Hemoglobin is currently normal. (12) Diastolic CHF Qualifiers: Congestive heart failure chronicity: chronic Qualified Code(s): I50.32 - Chronic diastolic (congestive) heart failure Is this a current diagnosis for this admission?: YesPlan: Patient is euvolemic. (13) Full code status Is this a current diagnosis for this admission?: Yes (14) Urinary retention Is this a current diagnosis for this admission?: YesPlan: Silva catheter was placed with good results. - Time Time Spent with patient: 25-34 minutes - Inpatient Certification Medical Necessity: Need for IV Antibiotics
[2016-09-18] MEDS ORDERED: BENZOCAINE/MENTHOL SORE THROAT LOZENGE BUCCAL PRN (11:56)
[2016-09-18] MEDS: ERTAPENEM SODIUM 1 GM in NORMAL SALINE 50 ML IV SCH (17:49)
[2016-09-18] MEDS: HUM INSULIN NPH/REG INSULIN HM 100 UNIT/1 ML 3 ML SUBCUT SCH (17:49)
[2016-09-18] MEDS: ACETAMINOPHEN 325 MG TABLET PO PRN (20:20)
[2016-09-18] MEDS: TRAZODONE HCL 50 MG TABLET PO SCH (21:31)
[2016-09-19] MEDS: LANSOPRAZOLE 30 MG TAB.RAP.DR PO SCH (05:04)
[2016-09-19] MEDS: SITAGLIPTIN PHOSPHATE 50 MG TABLET PO SCH (10:06)
[2016-09-19] MEDS: DOCUSATE SODIUM 100 MG CAPSULE PO SCH ×2 (10:06→17:20)
[2016-09-19] MEDS: GABAPENTIN 300 MG CAPSULE PO SCH ×2 (10:06→21:36)
[2016-09-19] MEDS: CLOPIDOGREL BISULFATE 75 MG TABLET PO SCH (10:07)
[2016-09-19] MEDS: NYSTATIN TOPICAL POWDER 15 GM TP SCH ×2 (10:07→17:21)
[2016-09-19] MEDS: FLUCONAZOLE 100 MG TABLET PO SCH (10:07)
[2016-09-19] MEDS: LOSARTAN POTASSIUM 50 MG TABLET PO SCH ×2 (10:07→21:36)
[2016-09-19] MEDS: METHOCARBAMOL 500 MG TABLET PO SCH ×4 (10:07→21:36)
[2016-09-19] MEDS: ASPIRIN 81 MG TABLET, CHEWABLE PO SCH (10:07)
[2016-09-19] MEDS: CITALOPRAM HYDROBROMIDE 20 MG TABLET PO SCH (10:11)
[2016-09-19] MEDS: ENOXAPARIN SODIUM INJ 40 MG/0.4 ML DISP.SYRIN SUBCUT SCH (10:11)
[2016-09-19] MEDS: HUM INSULIN NPH/REG INSULIN HM 100 UNIT/1 ML 3 ML SUBCUT SCH ×2 (10:24→17:21)
[2016-09-19] MEDS: METOPROLOL TARTRATE 100 MG TABLET PO SCH ×2 (10:27→21:36)
--- NOTE | 2016-09-19 11:18 | PDOC PROGRESS REPORT ---
Subjective Progress Note for:: 09/19/16 Subjective:: Patient has some confusion overnight according to nursing staff. The time my exam the patient is alert and oriented 3. She denies any abdominal pain. Physical Exam Vital Signs: Temp Pulse Resp BP Pulse Ox 98.2 F 78 21 H 110/85 96 09/19/16 07:37 09/19/16 07:37 09/19/16 07:37 09/19/16 07:37 09/19/16 07:37 Intake & Output 09/18/16 09/19/16 09/20/16 06:59 06:59 06:59 Intake Total 3700 3865 Output Total 1300 4700 Balance 2400 -835 Weight 101.1 kg 104.6 kg General appearance: PRESENT: no acute distress Eye exam: PRESENT: conjunctiva pink. ABSENT: scleral icterus Ear exam: PRESENT: normal external ear exam Mouth exam: PRESENT: moist, tongue midline Neck exam: ABSENT: JVD Respiratory exam: PRESENT: clear to auscultation carmen. ABSENT: rales, rhonchi, wheezes Cardiovascular exam: PRESENT: RRR. ABSENT: diastolic murmur, rubs, systolic murmur GI/Abdominal exam: PRESENT: normal bowel sounds, soft. ABSENT: distended, guarding, mass, organolmegaly, rebound, tenderness Extremities exam: ABSENT: calf tenderness, clubbing, pedal edema Neurological exam: PRESENT: alert, awake, oriented to person, oriented to place , oriented to time, oriented to situation Psychiatric exam: PRESENT: appropriate affect Skin exam: PRESENT: dry, intact, warm. ABSENT: cyanosis, rash Results Laboratory Results: 09/18/16 04:40 09/18/16 04:40 Impressions: Limited or Localized CT 09/13/16 00:00 IMPRESSION: No renal or ureteric calculi are identified. No obstructive changes are identified. Other findings as noted above Assessment & Plan - Diagnosis (1) Sepsis Qualifiers: Sepsis type: sepsis due to unspecified organism Qualified Code(s): A41.9 - Sepsis, unspecified organism Is this a current diagnosis for this admission?: YesPlan: Patient has sepsis from a urinary tract infection. The patient has a history of extended spectrum beta-lactamase resistant bacterium. We'll continue with ertapenem. The patient's urine culture is growing out [place] albicans. It's unclear as to whether this is contaminated from a cutaneous infection or whether she truly has infection in her urine. Given her continued elevated white blood cell count we will go ahead and treat with oral Diflucan along with her topical antifungal. We'll also continue with the ertapenem given her history of ESBL. The patient in the past has had ESBL that been resistant to everything except for Macrobid for by mouth medications. (2) UTI (urinary tract infection) Qualifiers: Urinary tract infection type: site unspecified Hematuria presence: without hematuria Qualified Code(s): N39.0 - Urinary tract infection, site not specified Is this a current diagnosis for this admission?: YesPlan: Patient has a history of ESBL and we will treat with ertapenem. Patient also is growing out [place] albicans from her urine. Negative for any bacterial growth so far. Will continue with Diflucan. (3) Anxiety and depression Is this a current diagnosis for this admission?: YesPlan: Continue Celexa. (4) CAD (coronary artery disease) Qualifiers: Coronary Disease-Associated Artery/Lesion type: [place] artery [place] vs. transplanted heart: [place] heart Associated angina: without angina Qualified Code(s): I25.10 - Atherosclerotic heart disease of [place] coronary artery without angina pectoris Is this a current diagnosis for this admission?: YesPlan: Patient denies any chest pain. We'll continue with aspirin, Plavix, and beta lashell. (5) GERD (gastroesophageal reflux disease) Qualifiers: Esophagitis presence: without esophagitis Qualified Code(s): K21.9 - Gastro-esophageal reflux disease without esophagitis Is this a current diagnosis for this admission?: YesPlan: Asymptomatic (6) Yeast infection Is this a current diagnosis for this admission?: YesPlan: Patient has a yeast rash underneath her breast and her groin. Continue nystatin topically and Diflucan by mouth because of her positive urine culture. (7) Hyperlipidemia Qualifiers: Hyperlipidemia type: unspecified Qualified Code(s): E78.5 - Hyperlipidemia, unspecified Is this a current diagnosis for this admission?: Yes (8) Type 2 diabetes mellitus with hyperglycemia Qualifiers: Diabetes mellitus [facility] insulin use: with [facility] use Qualified Code(s): E11.65 - Type 2 diabetes mellitus with hyperglycemia Is this a current diagnosis for this admission?: YesPlan: Patient is on Januvia, 70/30 and sliding scale insulin. (9) HTN (hypertension) Qualifiers: Hypertension type: essential hypertension Qualified Code(s): I10 - Essential (primary) hypertension Is this a current diagnosis for this admission?: YesPlan: Continue with Cozaar and [place]. (10) Morbid obesity Qualifiers: Obesity type: unspecified obesity type Qualified Code(s): E66.01 - Morbid (severe) obesity due to excess calories Is this a current diagnosis for this admission?: Yes (11) Anemia Qualifiers: Anemia type: unspecified type Qualified Code(s): D64.9 - Anemia, unspecified Is this a current diagnosis for this admission?: YesPlan: Hemoglobin is currently normal. (12) Diastolic CHF Qualifiers: Congestive heart failure chronicity: chronic Qualified Code(s): I50.32 - Chronic diastolic (congestive) heart failure Is this a current diagnosis for this admission?: YesPlan: Patient is euvolemic. (13) Full code status Is this a current diagnosis for this admission?: Yes (14) Urinary retention Is this a current diagnosis for this admission?: YesPlan: Silva catheter is in place. Will DC tomorrow morning prior to discharge. - Time Time Spent with patient: 25-34 minutes - Inpatient Certification Medical Necessity: Need for IV Antibiotics
[2016-09-19] MEDS: ERTAPENEM SODIUM 1 GM in NORMAL SALINE 50 ML IV SCH (17:20)
[2016-09-19] MEDS: TRAZODONE HCL 50 MG TABLET PO SCH (21:36)
[2016-09-20] MEDS: LANSOPRAZOLE 30 MG TAB.RAP.DR PO SCH (05:18)
[2016-09-20] MEDS: GABAPENTIN 300 MG CAPSULE PO SCH ×2 (09:49→22:18)
[2016-09-20] MEDS: SITAGLIPTIN PHOSPHATE 50 MG TABLET PO SCH (09:49)
[2016-09-20] MEDS: LOSARTAN POTASSIUM 50 MG TABLET PO SCH ×2 (09:49→22:18)
[2016-09-20] MEDS: CLOPIDOGREL BISULFATE 75 MG TABLET PO SCH (09:49)
[2016-09-20] MEDS: ASPIRIN 81 MG TABLET, CHEWABLE PO SCH (09:49)
[2016-09-20] MEDS: METHOCARBAMOL 500 MG TABLET PO SCH ×4 (09:49→22:18)
[2016-09-20] MEDS: NYSTATIN TOPICAL POWDER 15 GM TP SCH ×2 (09:50→17:25)
[2016-09-20] MEDS: METOPROLOL TARTRATE 100 MG TABLET PO SCH ×2 (09:50→22:18)
[2016-09-20] MEDS: DOCUSATE SODIUM 100 MG CAPSULE PO SCH ×2 (09:50→17:24)
[2016-09-20] MEDS: FLUCONAZOLE 100 MG TABLET PO SCH (09:50)
[2016-09-20] MEDS: HUM INSULIN NPH/REG INSULIN HM 100 UNIT/1 ML 3 ML SUBCUT SCH ×2 (09:51→17:25)
[2016-09-20] MEDS: ENOXAPARIN SODIUM INJ 40 MG/0.4 ML DISP.SYRIN SUBCUT SCH (09:54)
[2016-09-20] MEDS: CITALOPRAM HYDROBROMIDE 20 MG TABLET PO SCH (09:57)
[2016-09-20] MEDS ORDERED: LACTULOSE SYRUP 20 GM/30 ML UDCUP PO ONE (10:00)
[2016-09-20] MEDS: HYDRALAZINE HCL INJ/PF 20 MG/1 ML SDV IV PRN (14:55)
--- NOTE | 2016-09-20 15:34 | PDOC PROGRESS REPORT ---
Subjective Progress Note for:: 09/20/16 Subjective:: Patient denies any complaints. Physical Exam Vital Signs: Temp Pulse Resp BP Pulse Ox 98.5 F 84 16 186/82 H 98 09/20/16 12:45 09/20/16 13:55 09/20/16 12:45 09/20/16 12:45 09/20/16 12:45 Intake & Output 09/19/16 09/20/16 09/21/16 06:59 06:59 06:59 Intake Total 3865 3234 Output Total 4700 5300 Balance -835 -2066 Weight 104.6 kg 103.3 kg General appearance: PRESENT: no acute distress Eye exam: PRESENT: conjunctiva pink. ABSENT: scleral icterus Ear exam: PRESENT: normal external ear exam Mouth exam: PRESENT: moist, tongue midline Neck exam: ABSENT: JVD Respiratory exam: PRESENT: clear to auscultation carmen. ABSENT: rales, rhonchi, wheezes Cardiovascular exam: PRESENT: RRR. ABSENT: diastolic murmur, rubs, systolic murmur GI/Abdominal exam: PRESENT: normal bowel sounds, soft. ABSENT: distended, guarding, mass, organolmegaly, rebound, tenderness Extremities exam: ABSENT: calf tenderness, clubbing, pedal edema Neurological exam: PRESENT: alert, awake, oriented to person, oriented to place , oriented to time, oriented to situation Psychiatric exam: PRESENT: appropriate affect Skin exam: PRESENT: dry, intact, warm. ABSENT: cyanosis, rash Results Laboratory Results: 09/18/16 04:40 09/18/16 04:40 Impressions: Limited or Localized CT 09/13/16 00:00 IMPRESSION: No renal or ureteric calculi are identified. No obstructive changes are identified. Other findings as noted above Assessment & Plan - Diagnosis (1) Sepsis Qualifiers: Sepsis type: sepsis due to unspecified organism Qualified Code(s): A41.9 - Sepsis, unspecified organism Is this a current diagnosis for this admission?: YesPlan: Patient has sepsis from a urinary tract infection. The patient has a history of extended spectrum beta-lactamase resistant bacterium. We'll continue with ertapenem through today but will be able to stop it tomorrow. The patient's urine culture is growing out [place] albicans. It's unclear as to whether this is contaminated from a cutaneous infection or whether she truly has infection in her urine. Given her continued elevated white blood cell count we will go ahead and treat with oral Diflucan along with her topical antifungal. We'll also continue with the ertapenem 1 more day given her history of ESBL. The patient in the past has had ESBL that been resistant to everything except for Macrobid for by mouth medications. (2) UTI (urinary tract infection) Qualifiers: Urinary tract infection type: site unspecified Hematuria presence: without hematuria Qualified Code(s): N39.0 - Urinary tract infection, site not specified Is this a current diagnosis for this admission?: YesPlan: Patient has a history of ESBL and we will continue with ertapenem for 1 more day. Patient also is growing out [place] albicans from her urine. Negative for any bacterial growth so far. Will continue with Diflucan. (3) Anxiety and depression Is this a current diagnosis for this admission?: YesPlan: Continue Celexa. (4) CAD (coronary artery disease) Qualifiers: Coronary Disease-Associated Artery/Lesion type: [place] artery [place] vs. transplanted heart: [place] heart Associated angina: without angina Qualified Code(s): I25.10 - Atherosclerotic heart disease of [place] coronary artery without angina pectoris Is this a current diagnosis for this admission?: YesPlan: Patient denies any chest pain. We'll continue with aspirin, Plavix, and beta lashell. (5) GERD (gastroesophageal reflux disease) Qualifiers: Esophagitis presence: without esophagitis Qualified Code(s): K21.9 - Gastro-esophageal reflux disease without esophagitis Is this a current diagnosis for this admission?: YesPlan: Asymptomatic (6) Yeast infection Is this a current diagnosis for this admission?: YesPlan: Patient has a yeast rash underneath her breast and her groin. Continue nystatin topically and Diflucan by mouth because of her positive urine culture. 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 (9) HTN (hypertension) Qualifiers: Hypertension type: essential hypertension Qualified Code(s): I10 - Essential (primary) hypertension Is this a current diagnosis for this admission?: YesPlan: Continue with Cozaar and Lopressor. (10) Morbid obesity Qualifiers: Obesity type: unspecified obesity type Qualified Code(s): E66.01 - Morbid (severe) obesity due to excess calories Is this a current diagnosis for this admission?: Yes (11) Anemia Qualifiers: Anemia type: unspecified type Qualified Code(s): D64.9 - Anemia, unspecified Is this a current diagnosis for this admission?: YesPlan: Hemoglobin is currently normal. (12) Diastolic CHF Qualifiers: Congestive heart failure chronicity: chronic Qualified Code(s): I50.32 - Chronic diastolic (congestive) heart failure Is this a current diagnosis for this admission?: YesPlan: Patient is euvolemic. (13) Full code status Is this a current diagnosis for this admission?: Yes (14) Urinary retention Is this a current diagnosis for this admission?: YesPlan: Silva catheter was removed today. - Time Time Spent with patient: 25-34 minutes - Inpatient Certification Medical Necessity: Need for IV Antibiotics - Plan Summary Plan Summary: Patient will be ready for discharge to rehabilitation tomorrow. Patient wants to go to [facility]. Discharge planning is working on getting approval for rehabilitation.
[2016-09-20] MEDS: TRAZODONE HCL 50 MG TABLET PO SCH (22:18)
[2016-09-21] MEDS: NORMAL SALINE 1000 ML 1,000 ML IV PRN (01:18)
[2016-09-21] MEDS: HYDRALAZINE HCL INJ/PF 20 MG/1 ML SDV IV PRN (01:18)
[2016-09-21] MEDS: LANSOPRAZOLE 30 MG TAB.RAP.DR PO SCH (05:13)
[2016-09-21 05:21] LABS: HEMATOCRIT 46.5 % (36.0-47.0); MEAN CORPUSCULAR HEMOGLOBIN 20.9 pg (27.0-33.4); MEAN CORPUSCULAR HGB CONC 30.1 g/dL (32.0-36.0); MEAN CORPUSCULAR VOLUME 69 fl (80-97); RED BLOOD COUNT 6.71 10^6/uL (3.72-5.28); RED CELL DISTRIBUTION WIDTH 24.9 % (11.5-14.0); WHITE BLOOD COUNT 28.9 10^3/uL (4.0-10.5)
[2016-09-21 05:31] VITALS: BP 145/56
[2016-09-21 05:39] LABS: ANION GAP 12 (5-19); BLOOD UREA NITROGEN 14 mg/dL (7-20); CALCIUM 9.5 mg/dL (8.4-10.2); CARBON DIOXIDE 25 mmol/L (22-30); CHLORIDE 108 mmol/L (98-107); CREATININE RESULT 0.74 mg/dL (0.52-1.25); GLUCOSE 83 mg/dL (75-110); POTASSIUM 4.2 mmol/L (3.6-5.0); SODIUM 144.9 mmol/L (137-145)
[2016-09-21 06:15] LABS: HGB HCT DIFFERENCE -4.5
[2016-09-21 06:17] LABS: ANISOCYTOSIS 3+; BAND NEUTROPHILS % (MANUAL) 3 % (3-5); BASOPHILS % (MANUAL) 0 % (0-2); EOSINOPHILS % (MANUAL) 1 % (0-6); LYMPHOCYTES % (MANUAL) 5 % (13-45); OVALOCYTES SLIGHT; POLYCHROMASIA SLIGHT; TEAR DROP CELLS SLIGHT; TOTAL CELLS COUNTED 100; TOXIC GRANULATION SLIGHT; TOXIC VACUOLATION PRESENT
[2016-09-21 06:18] LABS: HYPOCHROMASIA 1+; MICROCYTOSIS 2+; POIKILOCYTOSIS 1+
[2016-09-21] MEDS: FLUCONAZOLE 100 MG TABLET PO SCH (10:08)
[2016-09-21] MEDS: METOPROLOL TARTRATE 100 MG TABLET PO SCH (10:08)
[2016-09-21] MEDS: GABAPENTIN 300 MG CAPSULE PO SCH (10:08)
[2016-09-21] MEDS: ASPIRIN 81 MG TABLET, CHEWABLE PO SCH (10:08)
[2016-09-21] MEDS: DOCUSATE SODIUM 100 MG CAPSULE PO SCH (10:08)
[2016-09-21] MEDS: CLOPIDOGREL BISULFATE 75 MG TABLET PO SCH (10:08)
[2016-09-21] MEDS: LOSARTAN POTASSIUM 50 MG TABLET PO SCH (10:08)
[2016-09-21] MEDS: CITALOPRAM HYDROBROMIDE 20 MG TABLET PO SCH (10:09)
[2016-09-21] MEDS: HUM INSULIN NPH/REG INSULIN HM 100 UNIT/1 ML 3 ML SUBCUT SCH (10:09)
[2016-09-21] MEDS: ENOXAPARIN SODIUM INJ 40 MG/0.4 ML DISP.SYRIN SUBCUT SCH (10:09)
[2016-09-21] MEDS: SITAGLIPTIN PHOSPHATE 50 MG TABLET PO SCH (10:09)
[2016-09-21] MEDS: METHOCARBAMOL 500 MG TABLET PO SCH (10:10)
[2016-09-21] MEDS: NYSTATIN TOPICAL POWDER 15 GM TP SCH (10:10)
--- NOTE | 2016-09-21 11:06 | PDOC TRANSFER SUMMARY ---
General - Admit/Disc Date/PCP Admission Date/Primary Care Provider: 09/13/16 15:45 CONSTANZA RAYMOND, Discharge Date: 09/21/16 - Discharge Diagnosis (1) Sepsis Is this a current diagnosis for this admission?: Yes (2) UTI (urinary tract infection) Is this a current diagnosis for this admission?: Yes (3) Type 2 diabetes mellitus with hyperglycemia Is this a current diagnosis for this admission?: Yes (4) HTN (hypertension) Is this a current diagnosis for this admission?: Yes (5) Morbid obesity Is this a current diagnosis for this admission?: Yes (6) Cholelithiasis Is this a current diagnosis for this admission?: Yes (7) Diastolic CHF Is this a current diagnosis for this admission?: Yes (8) History of CVA (cerebrovascular accident) Is this a current diagnosis for this admission?: Yes (9) Leukocytosis Is this a current diagnosis for this admission?: Yes (10) Hyperlipidemia Is this a current diagnosis for this admission?: Yes (11) Anxiety and depression Is this a current diagnosis for this admission?: Yes (12) GERD (gastroesophageal reflux disease) Is this a current diagnosis for this admission?: Yes (13) CAD (coronary artery disease) Is this a current diagnosis for this admission?: Yes - Additional Information Resuscitation Status: Full Code Discharge Diet: Cardiac - low-fat low-salt, Diabetic - no concentrated sweets Discharge Activity: Activity As Tolerated, Balance Activity w/Rest Home Medications: Aspirin [Aspirin 81 mg Chewable Tablet] 81 mg PO DAILY 09/13/16 Citalopram Hydrobromide [Celexa] 40 mg PO DAILY 09/13/16 Clopidogrel Bisulfate [Plavix 75 mg Tablet] 75 mg PO DAILY 09/13/16 Docusate Sodium [Colace 100 mg Capsule] 100 mg PO DAILY 09/13/16 Gabapentin [Neurontin 300 mg Capsule] 300 mg PO Q12 09/13/16 Losartan Potassium [Cozaar 50 mg Tablet] 50 mg PO Q12 09/13/16 Methocarbamol [Robaxin] 500 mg PO QID 09/13/16 Metoprolol Tartrate [Lopressor 100 mg Tablet] 100 mg PO Q12 09/13/16 Polyethylene Glycol 3350 [Miralax Powder 17 gm/Packet] 17 gm PO Q2D 09/13/16 Sitagliptin Phosphate [Januvia] 100 mg PO DAILY 09/13/16 Trazodone HCl [Desyrel 50 mg Tablet] 50 mg PO QHS 09/13/16 Docusate Sodium [Colace 100 mg Capsule] 100 mg PO BID capsule 09/21/16 Fluconazole [Diflucan 100 mg Tablet] 100 mg PO DAILY tablet 09/21/16 Hum Insulin NPH/Reg Insulin Hm [Insulin 70-30 (NPH/Reg) 100 unit/mL] 60 unit SUBCUT BID unit 09/21/16 Insulin Regular, Human [Humulin R (Reg) Insulin 100 unit/mL] 0 - 12 unit SUBCUT ACHSP PRN unit 09/21/16 Lansoprazole [Prevacid 30 mg Odt Tablet] 30 mg PO Q6AM tab. 09/21/16 Oxycodone HCl/Acetaminophen [Percocet 5-325 mg Tablet] 1 tab PO Q6H PRN #20 tablet 09/21/16 Additional Information: 1. Tagged WBC whole body scan as out-patient in 2 weeks. 2. Diflucan and continue for 1 week History of Present Illness Admission Date/PCP: 09/13/16 15:45 CONSTANZA RAYMOND, Patient complains of: Urinary tract symptoms History of Present Illness: 81-year-old female with known history of recurrent UTI, here again with UTI, hypotension, tachycardia and concern of sepsis. She has been treated thus far for UTI. She has had several year history of leukocytosis. Her white count ranges anywhere from 14-20, and persistently elevated. Although most of the values we have are from when she is admitted to [facility], and she is always admitted with UTI. Today her white count was 35,000. Of note, when she was admitted in April, we did an extensive leukocytosis workup including Fish for BCR ABL and flow cytometry for leukemia lymphoma panel looking for chronic leukemias. This whole workup was negative. We did find some iron deficiency and she received 1 IV iron infusion as an outpatient however she was then soon after admitted for another UTI at [facility]. Hospital Course Hospital Course: The patient was admitted to the medical floor with telemetry. The patient was started on broad spectrum antibiotics with Invanz. Patient had prior history of ESBL UTI. Urine cultures and blood cultures were done, blood culture was negative. Urine culture revealed yeast. Diflucan was started. The patient was gently hydrated. WBC was monitored and was stable. The patient was referred to hematology for further evaluation. Dr. Mercer evaluated the patient and she had prior extensive workup for leukemia that was negative. Dr. Mercer reports likely secondary to ongoing inflammation or infection. The patient significantly improved. Course was complicated by debility. Physical therapy was instituted. The patient was referred to the medical planner for subacute rehabilitation. She was advised to have whole body tagged WBC scan on an outpatient basis. When a bed was available she was eventually transferred. The rest of the hospital stay was unremarkable. Physical Exam Vital Signs: Temp Pulse Resp BP Pulse Ox 97.2 F 76 20 145/56 H 97 09/21/16 04:13 09/21/16 07:00 09/21/16 04:13 09/21/16 04:13 09/21/16 04:13 Intake & Output 09/20/16 09/21/16 09/22/16 06:59 06:59 06:59 Intake Total 3234 1560 Output Total 5300 650 Balance -2066 910 Weight 103.3 kg 103 kg Results Laboratory Results: 09/21/16 04:48 09/21/16 04:48 09/21/16 09/21/16 04:48 04:48 WBC 28.9 H RBC 6.71 H Hgb 14.0 Hct 46.5 MCV 69 L MCH 20.9 L MCHC 30.1 L RDW 24.9 H Plt Count 422 Seg Neutrophils % Not Reportable Lymphocytes % Not Reportable Monocytes % Not Reportable Eosinophils % Not Reportable Basophils % Not Reportable Absolute Neutrophils Not Reportable Absolute Lymphocytes Not Reportable Absolute Monocytes Not Reportable Absolute Eosinophils Not Reportable Absolute Basophils Not Reportable Sodium 144.9 Potassium 4.2 Chloride 108 H Carbon Dioxide 25 Anion Gap 12 BUN 14 Creatinine 0.74 Est GFR ( Amer) > 60 Est GFR (Non-Af Amer) > 60 Glucose 83 Calcium 9.5 Impressions: Limited or Localized CT 09/13/16 00:00 IMPRESSION: No renal or ureteric calculi are identified. No obstructive changes are identified. Other findings as noted above Transfer Plan - Disposition Transfer Plan: Transferred to subacute rehabilitation for physical therapy - Time Spent with Patient Time spent with patient: Less than 30 Minutes Qualifiers PATEINT BEING DISCHARGED WITH ANY OF THE FOLLOWING DIAGNOSIS?: No Plan Discharge Plan: Follow-up with primary care physician in one week. The patient will be followed by the physician in the facility during rehabilitation. Time Spent: Less than 30 Minutes
== END 2016-09-21 13:48 | disposition home or self-care (01) | DRG 872 ==
LOC: ER 10:06 → EH 14:11 → UNDOADMIN 14:11 → EH 15:45 → 4W 20:20
DX: A41.9 Sepsis, unspecified organism (principal); N39.0 Urinary tract infection, site not specified; I50.32 Chronic diastolic (congestive) heart failure; B37.49 Other urogenital candidiasis; B37.89 Other sites of candidiasis; K21.9 Gastro-esophageal reflux disease without esophagitis; M19.90 Unspecified osteoarthritis, unspecified site; F41.9 Anxiety disorder, unspecified; F32.9 Major depressive disorder, single episode, unspecified; E78.5 Hyperlipidemia, unspecified; E66.01 Morbid (severe) obesity due to excess calories; Z68.37 Body mass index [BMI] 37.0-37.9, adult; K80.20 Calculus of gallbladder without cholecystitis without obstruction; D50.9 Iron deficiency anemia, unspecified; I25.2 Old myocardial infarction; I11.0 Hypertensive heart disease with heart failure; D72.829 Elevated white blood cell count, unspecified; E11.65 Type 2 diabetes mellitus with hyperglycemia; R33.9 Retention of urine, unspecified; I25.10 Atherosclerotic heart disease of native coronary artery without angina pectoris; Z86.73 Personal history of transient ischemic attack (TIA), and cerebral infarction without residual deficits; Z79.82 Long term (current) use of aspirin; Z79.4 Long term (current) use of insulin; Z79.899 Other long term (current) drug therapy; Z90.49 Acquired absence of other specified parts of digestive tract; Z90.710 Acquired absence of both cervix and uterus; Z87.440 Personal history of urinary (tract) infections; Z83.3 Family history of diabetes mellitus; Z82.49 Family history of ischemic heart disease and other diseases of the circulatory system; Z80.1 Family history of malignant neoplasm of trachea, bronchus and lung; Z88.0 Allergy status to penicillin; Z98.42 Cataract extraction status, left eye; Z98.41 Cataract extraction status, right eye
CPT/HCPCS: 36415; 76380; 80048; 80053; 81001; 82962; 83036; 83605; 85025; 87040; 87086; 96365; 96372; 96375; 99283; 99291; G8978-GP; G8979-GP; J0360; J1170; J1335; J1650; J1815; J1885; J1956; J2405; J3490; J7030

== ENCOUNTER 2016-11-11 09:39 | Observation (INO) | payer MEDICARE, OTHER ==
[2016-11-11 10:34] LABS: HEMATOCRIT 50.7 % (36.0-47.0); HEMOGLOBIN 15.8 g/dL (12.0-15.5); HGB HCT DIFFERENCE -3.3; MEAN CORPUSCULAR HEMOGLOBIN 20.8 pg (27.0-33.4); MEAN CORPUSCULAR HGB CONC 31.2 g/dL (32.0-36.0); MEAN CORPUSCULAR VOLUME 67 fl (80-97); RED CELL DISTRIBUTION WIDTH 22.1 % (11.5-14.0); WHITE BLOOD COUNT 28.2 10^3/uL (4.0-10.5)
[2016-11-11 10:36] LABS: RED BLOOD COUNT 7.58 10^6/uL (3.72-5.28)
[2016-11-11 10:38] LABS: ALANINE AMINOTRANSFERASE 25 U/L (9-52); ALBUMIN 3.9 g/dL (3.5-5.0); ALKALINE PHOSPHATASE 194 U/L (38-126); ANION GAP 11 (5-19); ASPARTATE AMINO TRANSFERASE 24 U/L (14-36); BILIRUBIN,TOTAL 0.9 mg/dL (0.2-1.3); BLOOD UREA NITROGEN 17 mg/dL (7-20); CALCIUM 9.6 mg/dL (8.4-10.2); CARBON DIOXIDE 25 mmol/L (22-30); CHLORIDE 103 mmol/L (98-107); CREATINE KINASE 24 U/L (30-135); CREATININE RESULT 0.85 mg/dL (0.52-1.25); GLUCOSE 354 mg/dL (75-110); POTASSIUM 5.4 mmol/L (3.6-5.0); SODIUM 138.7 mmol/L (137-145); TOTAL PROTEIN 7.8 g/dL (6.3-8.2)
[2016-11-11 10:50] LABS: CREATINE KINASE MB 1.39 ng/mL (<4.55); TROPONIN I < 0.012 ng/mL
[2016-11-11 11:09] LABS: BAND NEUTROPHILS % (MANUAL) 2 % (3-5); BASOPHILS % (MANUAL) 0 % (0-2); EOSINOPHILS % (MANUAL) 0 % (0-6); LYMPHOCYTES % (MANUAL) 3 % (13-45); TOTAL CELLS COUNTED 100
[2016-11-11 11:10] LABS: ANISOCYTOSIS 3+; HYPOCHROMASIA 2+; MICROCYTOSIS 2+; OVALOCYTES SLIGHT; POIKILOCYTOSIS SLIGHT; POLYCHROMASIA SLIGHT; TOXIC VACUOLATION PRESENT
--- NOTE | 2016-11-11 11:18 | ER Document Report ---
ED General - General Mode of Arrival: Medic Information source: Patient TRAVEL OUTSIDE OF THE [place] IN LAST 30 DAYS: No - HPI Patient complains to provider of: Chest Pain Onset: This morning - 0400 Associated symptoms: Other - see above <VANGIE MARTEL - Last Filed: 11/11/16 11:19> <DREA MURPHY - Last Filed: 11/11/16 17:14> - General Chief Complaint: Chest Pain Stated Complaint: CHEST PRESSURE Notes: 81 year old female with history of CHF, KS, hypertension, and hyperlipidemia presents to the ED via EMS complaining of chest pain that woke her up at 0400 this morning. She explains that it felt as if "someone was sitting on my chest. " Patient reports that she became nauseous and vomited, but felt better after vomiting. Patient describes the vomit as brown and watery with floating particulates. Patient had a ham sandwich and a sweet potato for dinner last night. Patient additionally complains of RLQ abdominal pain. Patient denies having a cholecystectomy. Patient's primary care provider is Dr. lAexander. ( VANGIE MARTEL) Review of the patient's chart shows she usually has a white blood cell count over 20,000. She has been admitted several times with urinary tract infection and diagnoses UTI sepsis. Oncology consult did not find an explanation for her leukocytosis. Today she is here for a severe right lower quadrant pelvic pain and one episode of nausea and vomiting this morning. Abdomen exam shows a soft abdomen with bowel sounds, very tender in the right lower quadrant pelvic region. She also feels warm to touch. Her white blood cell count is 28,200 which is slightly higher than her baseline. Urinalysis shows a urinary tract infection. CT scan of the abdomen and pelvis without contrast does not show any abnormalities or any inflammatory process. She is known to have a few tiny gallstones, there is no sign of inflammation, the right upper quadrant is not tender. (DREA MURPHY) - Related Data Allergies/Adverse Reactions: amoxicillin Allergy (Intermediate, Verified 11/11/16 10:33) Penicillins Allergy (Verified 11/11/16 10:33) Past Medical History - General Information source: Patient - Social History Smoking Status: Never Smoker Frequency of alcohol use: None Drug Abuse: None Family History: DM, Hypertension, Malignancy - Father with lung cancer, Other Patient has suicidal ideation: No Patient has homicidal ideation: No - Past Medical History Cardiac Medical History: Reports: Hx Congestive Heart Failure - reports an acute episode previously, unsure of year, Hx Heart Attack - EKG suggests probable prior infarction, Hx Hypercholesterolemia, Hx Hypertension Endocrine Medical History: Reports: Hx Diabetes Mellitus Type 2 GI Medical History: Reports: Hx Gastroesophageal Reflux Disease Musculoskeltal Medical History: Reports Hx Arthritis, Reports Hx Musculoskeletal Deformity Psychiatric Medical History: Reports: Hx Anxiety, Hx Depression Past Surgical History: Reports: Hx Abdominal Surgery, Hx Appendectomy, Hx Hysterectomy, Hx Tonsillectomy, Other - Cardiac loop recorder, bilateral cataract surgery - Immunizations Hx Diphtheria, Pertussis, Tetanus Vaccination: No Hx Pneumococcal Vaccination: 04/29/13 <VANGIE MARTEL - Last Filed: 11/11/16 11:19> Review of Systems - Review of Systems Constitutional: No symptoms reported EENT: No symptoms reported Cardiovascular: See HPI, Chest pain Respiratory: No symptoms reported Gastrointestinal: See HPI, Abdominal pain - RLQ, Nausea, Vomiting Genitourinary: No symptoms reported Female Genitourinary: No symptoms reported Musculoskeletal: No symptoms reported Skin: No symptoms reported Hematologic/Lymphatic: No symptoms reported Neurological/Psychological: No symptoms reported -: Yes All other systems reviewed and negative <VANGIE MARTEL - Last Filed: 11/11/16 11:19> Physical Exam - General General appearance: Alert In distress: None - HEENT Head: Normocephalic, Atraumatic Eyes: Normal Extraocular movements intact: Yes Pupils: PERRL - Respiratory Respiratory status: No respiratory distress Breath sounds: Normal - Cardiovascular Rhythm: Regular Heart sounds: Normal auscultation - Abdominal Inspection: Obese Distension: No distension Bowel sounds: Normal Tenderness: Tender - RLQ is exquisitely tender to palpate. - Back Back: Normal - Extremities General upper extremity: Normal inspection, Normal ROM General lower extremity: Normal inspection, Normal ROM - Neurological Neuro grossly intact: Yes - Psychological Associated symptoms: Normal affect, Normal mood - Skin Skin Temperature: Warm Skin Moisture: Dry Skin Color: Normal <VANGIE MARTEL - Last Filed: 11/11/16 11:19> Course - Laboratory Result Diagrams: 11/11/16 10:02 11/11/16 10:02 <VANGIE MARTEL - Last Filed: 03/16/17 11:19> - Laboratory Result Diagrams: 11/11/16 10:02 11/11/16 10:02 - Diagnostic Test Radiology reviewed: Image reviewed, Reports reviewed - CT abdomen and pelvis without contrast is unremarkable other than some tiny gallstones which have been noted in the past. - EKG Interpretation by Me EKG shows normal: Sinus rhythm, Timber, ST-T Waves. abnormal: Intervals - Borderline QT interval, QRS Complexes - Old inferior KS Rate: Normal - 70 Rhythm: NSR When compared to previous EKG there are: No significant change - Consults Dr. Finley Time consulted: 17:10 Consulted provider: will come to ER <DREA MURPHY - Last Filed: 11/11/16 17:14> - Vital Signs Vital signs: Temp Pulse Resp BP Pulse Ox 15 123/56 L 88 L 11/11/16 17:01 11/11/16 17:01 11/11/16 17:01 - Laboratory Laboratory results interpreted by me: 11/11/16 11/11/16 11/11/16 10:02 10:02 15:25 WBC 28.2 H RBC 7.58 H Hgb 15.8 H Hct 50.7 H MCV 67 L MCH 20.8 L MCHC 31.2 L RDW 22.1 H Seg Neuts % (Manual) 91 H Band Neutrophils % 2 L Lymphocytes % (Manual) 3 L Monocytes % (Manual) 1 L Abs Neuts (Manual) 26.2 H Potassium 5.4 H Glucose 354 H Alkaline Phosphatase 194 H Creatine Kinase 24 L Urine Protein 30 H Urine Glucose (UA) >=500 H Urine Ketones TRACE H Urine Blood MODERATE H Ur Leukocyte Esterase MODERATE H Discharge <VANGIE MARTEL - Last Filed: 11/11/16 11:19> - Discharge Admitting Provider: Hospitalist Unit Admitted: IMCU <DREA MURPHY - Last Filed: 11/11/16 17:14> - Discharge Clinical Impression: Right lower quadrant abdominal pain Urinary tract infection Qualifiers: Urinary tract infection type: site unspecified Hematuria presence: with hematuria Qualified Code(s): N39.0 - Urinary tract infection, site not specified ; R31.9 - Hematuria, unspecified Leukocytosis Qualifiers: Leukocytosis type: unspecified Qualified Code(s): D72.829 - Elevated white blood cell count, unspecified Type 2 diabetes mellitus with hyperglycemia Qualifiers: Diabetes mellitus penitentiary insulin use: with penitentiary use Qualified Code(s): E11.65 - Type 2 diabetes mellitus with hyperglycemia Condition: Stable Disposition: ADMITTED OBSERVATION Referrals: SARAI ALEXANDER MD [Primary Care Provider] - Follow up as needed Scribe Documentation - Scribe Written by Scribe:: Batool Diallo, 11/11/2016 1129 acting as scribe for :: Shashi <VANGIE MARTEL - Last Filed: 11/11/16 11:19>
--- NOTE | 2016-11-11 11:26 | EKG REPORT ---
SEVERITY:- ABNORMAL ECG - SINUS OR ECTOPIC ATRIAL RHYTHM PROBABLE INFERIOR INFARCT, OLD CONSIDER ANTEROSEPTAL INFARCT BORDERLINE PROLONGED QT INTERVAL : Confirmed by: Bud Medina 11-Nov-2016 11:25:11
[2016-11-11] MEDS ORDERED: NORMAL SALINE 1000 ML 1,000 ML IV ONE ×2 (14:36→16:44)
[2016-11-11] MEDS ORDERED: ONDANSETRON HCL INJ/PF 4 MG/2 ML SDV IV ONE (14:39)
[2016-11-11] MEDS ORDERED: MORPHINE SULFATE 10 MG/ML INJ IV ONE (14:39)
[2016-11-11 15:47] LABS: APPEARANCE,URINE CLOUDY; BILIRUBIN,URINE NEGATIVE (NEGATIVE); GLUCOSE, URINE >=500 mg/dL (NEGATIVE); KETONES,URINE TRACE mg/dL (NEGATIVE); LEUKOCYTE ESTERASE,URINE MODERATE (NEGATIVE); NITRITE,URINE NEGATIVE (NEGATIVE); PROTEIN,URINE 30 mg/dL (NEGATIVE); URINE SPECIFIC GRAVITY 1.018; UROBILINOGEN,URINE NEGATIVE mg/dL (<2.0)
[2016-11-11] MEDS ORDERED: LEVOFLOXACIN 750 MG/D5W RTU 150 ML IV ONE (16:15)
[2016-11-11] MEDS ORDERED: ACETAMINOPHEN 325 MG TABLET PO ONE (16:56)
[2016-11-11] MEDS ORDERED: INSULIN REG, HUMAN 100 UNIT/ML 3 ML VIAL (PYX) IV ONE (17:13)
[2016-11-11] MEDS ORDERED: TRAZODONE HCL 50 MG TABLET PO PRN (18:59)
[2016-11-11] MEDS ORDERED: GLUCAGON,HUMAN RECOMB 1 MG INJ IM PRN (19:01)
[2016-11-11] MEDS ORDERED: DEXTROSE 50%-WATER 25 GM/50 ML DISP.SYRIN IV PRN ×2 (19:01)
[2016-11-11] MEDS ORDERED: DEXTROSE 40% GEL 15 GM TUBE PO PRN ×2 (19:01)
[2016-11-11] MEDS ORDERED: NORMAL SALINE 1000 ML 1,000 ML IV PRN (19:05)
[2016-11-11] MEDS ORDERED: ENOXAPARIN SODIUM INJ 40 MG/0.4 ML DISP.SYRIN SUBCUT ONE (19:30)
[2016-11-11] MEDS: INSULIN LISPRO 100 UNIT/ML 3 ML VIAL SUBCUT PRN (22:08)
[2016-11-11] MEDS: ERTAPENEM SODIUM 1 GM in NORMAL SALINE 50 ML IV SCH (22:40)
[2016-11-11] MEDS: METOPROLOL TARTRATE 100 MG TABLET PO SCH (22:40)
[2016-11-11] MEDS: GABAPENTIN 300 MG CAPSULE PO SCH (22:40)
[2016-11-12 04:15] LABS: ALANINE AMINOTRANSFERASE 19 U/L (9-52); ALBUMIN 3.4 g/dL (3.5-5.0); ALKALINE PHOSPHATASE 149 U/L (38-126); ANION GAP 10 (5-19); ASPARTATE AMINO TRANSFERASE 17 U/L (14-36); BILIRUBIN,TOTAL 0.6 mg/dL (0.2-1.3); BLOOD UREA NITROGEN 17 mg/dL (7-20); CALCIUM 9.2 mg/dL (8.4-10.2); CARBON DIOXIDE 23 mmol/L (22-30); CHLORIDE 107 mmol/L (98-107); GLUCOSE 282 mg/dL (75-110); POTASSIUM 4.8 mmol/L (3.6-5.0); SODIUM 139.5 mmol/L (137-145); TOTAL PROTEIN 6.9 g/dL (6.3-8.2)
[2016-11-12] MEDS: LANSOPRAZOLE 15 MG TAB.RAP.DR PO SCH (05:23)
--- NOTE | 2016-11-12 08:16 | PDOC H&P ---
History of Present Illness Admission Date/PCP: 11/11/16 18:50 DR CARRASCO Patient complains of: Chest pain ; abdominal pain History of Present Illness: ORACIO PEDROZA is a 81 year old female With a known history of recurrent UTIs, CAD, hypertension, CVA Presents to the ED with chest pain and abdominal pain chest pain was described as pressure like intermittent occurred early in the morning And woke up the patient from her sleep It did not radiate It resolved without medications The abdominal pain was diffuse, worse in the right lower quadrant and constant upon evaluation in the ED patient had a negative CT abdomen and pelvis; urine analysis was suggestive of urinary tract infection Her initial cardiac workup was negative She was subsequently admitted to telemetry unit for further evaluation and care Past Medical History Cardiac Medical History: Reports: Congestive Heart Failure - reports an acute episode previously, unsure of year, Myocardial Infarction - EKG suggests probable prior infarction, Hyperlipidema, Hypertension Endocrine Medical History: Reports: Diabetes Mellitus Type 2 Renal/ Medical History: Denies: End Stage Renal Disease GI Medical History: Reports: Gastroesophageal Reflux Disease Musculoskeltal Medical History: Reports: Arthritis Psychiatric Medical History: Reports: Depression Past Surgical History Past Surgical History: Reports: Appendectomy, Hysterectomy, Tonsillectomy, Other - Cardiac loop recorder, bilateral cataract surgery Social History Information Source: Patient Lives with: Family Smoking Status: Never Smoker Frequency of Alcohol Use: None Hx Recreational Drug Use: No Drugs: None Hx Prescription Drug Abuse: No - Advance Directive Resuscitation Status: Full Code Surrogate healthcare decision maker:: Her daughter Leigh Family History Family History: DM, Hypertension, Malignancy - Father with lung cancer, Other Parental Family History Reviewed: Yes Children Family History Reviewed: Yes Sibling(s) Family History Reviewed.: Yes Medication/Allergy Home Medications: Aspirin [Aspirin 81 mg Chewable Tablet] 81 mg PO DAILY 11/11/16 Citalopram Hydrobromide [Celexa 40 mg Tablet] 40 mg PO DAILY 11/11/16 Clopidogrel Bisulfate [Plavix 75 mg Tablet] 75 mg PO DAILY 11/11/16 Gabapentin [Neurontin 300 mg Capsule] 300 mg PO Q12 11/11/16 Hum Insulin NPH/Reg Insulin Hm [Insulin Inj 70-30 (100 Unit/1 ml) 3 ml Vial] 60 unit SUBCUT BID 11/11/16 Losartan Potassium [Cozaar 50 mg Tablet] 50 mg PO DAILY 11/11/16 Metoprolol Tartrate [Lopressor 100 mg Tablet] 100 mg PO Q12 11/11/16 Oxycodone HCl/Acetaminophen [Percocet 5-325 mg Tablet] 1 tab PO Q6HP PRN Sitagliptin Phosphate [Januvia 50 mg Tablet] 100 mg PO DAILY 11/11/16 Trazodone HCl [Desyrel 50 mg Tablet] 50 mg PO HSP PRN 11/11/16 Allergies/Adverse Reactions: amoxicillin Allergy (Intermediate, Verified 11/11/16 10:33) Penicillins Allergy (Verified 11/11/16 10:33) Review of Systems Constitutional: ABSENT: chills, fever(s), headache(s), weight gain, weight loss Eyes: ABSENT: visual disturbances Ears: ABSENT: hearing changes Cardiovascular: PRESENT: as per HPI, chest pain. ABSENT: dyspnea on exertion, edema, orthropnea, palpitations Respiratory: ABSENT: cough, hemoptysis Gastrointestinal: PRESENT: as per HPI, abdominal pain, nausea. ABSENT: constipation, diarrhea, hematemesis, hematochezia, vomiting Genitourinary: ABSENT: dysuria, hematuria Musculoskeletal: ABSENT: joint swelling Integumentary: ABSENT: rash, wounds Neurological: ABSENT: abnormal gait, abnormal speech, confusion, dizziness, focal weakness, syncope Psychiatric: ABSENT: anxiety, depression, homidical ideation, suicidal ideation Endocrine: ABSENT: cold intolerance, heat intolerance, polydipsia, polyuria Hematologic/Lymphatic: ABSENT: easy bleeding, easy bruising Physical Exam Vital Signs: Temp Pulse Resp BP Pulse Ox 97.8 F 97 17 133/62 H 94 11/12/16 04:00 11/12/16 07:00 11/12/16 04:00 11/12/16 04:00 11/12/16 04:00 Intake & Output 11/11/16 11/12/16 11/13/16 00:59 00:59 00:59 Intake Total 2074 Balance 2074 Weight 102.6 kg 102.9 kg General appearance: PRESENT: no acute distress, obese Head exam: PRESENT: atraumatic, normocephalic Eye exam: PRESENT: conjunctiva pink, EOMI, PERRLA. ABSENT: scleral icterus Neck exam: ABSENT: carotid bruit, JVD, lymphadenopathy, thyromegaly Respiratory exam: PRESENT: clear to auscultation carmen. ABSENT: rales, rhonchi, wheezes Cardiovascular exam: PRESENT: RRR, tachycardia. ABSENT: diastolic murmur, rubs , systolic murmur Pulses: PRESENT: normal dorsalis pedis pul Vascular exam: PRESENT: normal capillary refill GI/Abdominal exam: PRESENT: normal bowel sounds, tenderness. ABSENT: ascites, rebound, rigid Rectal exam: PRESENT: deferred Extremities exam: ABSENT: calf tenderness, clubbing, full ROM, joint swelling, pedal edema, tenderness, +1 edema, +2 edema, other Musculoskeletal exam: ABSENT: ambulatory, deformity, dislocation, full ROM, normal inspection, tenderness, other Neurological exam: PRESENT: alert, awake, oriented to person, oriented to place , oriented to time, oriented to situation, CN II-XII grossly intact. ABSENT: motor sensory deficit Psychiatric exam: PRESENT: appropriate affect, normal mood. ABSENT: homicidal ideation, suicidal ideation Results Laboratory Results: 11/12/16 03:30 11/12/16 11/12/16 03:30 03:30 Sodium 139.5 Potassium 4.8 Chloride 107 Carbon Dioxide 23 Anion Gap 10 BUN 17 Creatinine 0.90 Est GFR ( Amer) > 60 Est GFR (Non-Af Amer) > 60 Glucose 282 H Calcium 9.2 Total Bilirubin 0.6 AST 17 ALT 19 Alkaline Phosphatase 149 H Total Protein 6.9 Albumin 3.4 L TSH 2.43 11/11/16 11/12/16 21:30 03:30 Troponin I < 0.012 < 0.012 11/11/16 15:25 Urine Appearance CLOUDY Ur Leukocyte Esterase MODERATE H Urine WBC (Auto) 36 Urine RBC (Auto) 11 Urine Bacteria (Auto) 3+ 11/11/16 14:49 Blood Culture - Pending Blood Impressions: Chest X-Ray 11/11/16 09:41 IMPRESSION: No significant interval change. No acute changes. Findings as noted above Limited or Localized CT 11/11/16 11:19 IMPRESSION: No CT evidence for diverticulitis as noted above. No renal or ureteric calculi are identified. Other findings as noted above Assessment & Plan - Diagnosis (1) Chest pain Is this a current diagnosis for this admission?: YesPlan: We will admit the patient for telemetry Repeat cardiac enzymes CT of the chest will be performed in a.m. Patient may be a candidate for stress testing if she rules out (2) Hyperglycemia due to type 2 diabetes mellitus Is this a current diagnosis for this admission?: YesPlan: Continue present management reevaluate dosage of insulin hyperglycemia persist ; hemoglobin A1c (3) Leukocytosis Qualifiers: Leukocytosis type: unspecified Qualified Code(s): D72.829 - Elevated white blood cell count, unspecified Is this a current diagnosis for this admission?: YesPlan: Leukocytosis is chronic and hematology consult had been no pain in the past The patient will be again referred to Dr. Tristan as an outpatient (4) Right lower quadrant abdominal pain Is this a current diagnosis for this admission?: Yes (5) Urinary tract infection Qualifiers: Urinary tract infection type: site unspecified Hematuria presence: with hematuria Qualified Code(s): N39.0 - Urinary tract infection, site not specified Is this a current diagnosis for this admission?: YesPlan: Patient did have an Escherichia coli ESBL in the past We will continue ertapenem until results of the culture are available (6) HTN (hypertension) Qualifiers: Hypertension type: essential hypertension Qualified Code(s): I10 - Essential (primary) hypertension (7) Morbid obesity Qualifiers: Obesity type: unspecified obesity type Qualified Code(s): E66.01 - Morbid (severe) obesity due to excess calories Is this a current diagnosis for this admission?: Yes - Time Time Spent: 50 to 70 Minutes
--- NOTE | 2016-11-12 08:21 | PDOC PROGRESS REPORT ---
Subjective Progress Note for:: 11/12/16 Subjective:: Patient is doing a lot better this morning She has minimal abdominal pain She had a bowel movement no fever no chills She did have chest pain earlier ; repeat EKG was unremarkable Serial troponins were negative Her blood pressure is running on the high side Physical Exam Vital Signs: Temp Pulse Resp BP Pulse Ox 97.8 F 97 17 133/62 H 94 11/12/16 04:00 11/12/16 07:00 11/12/16 04:00 11/12/16 04:00 11/12/16 04:00 Intake & Output 11/11/16 11/12/16 11/13/16 00:59 00:59 00:59 Intake Total 2074 Balance 2074 Weight 102.6 kg 102.9 kg General appearance: PRESENT: no acute distress, well-developed, well-nourished Head exam: PRESENT: atraumatic, normocephalic Eye exam: PRESENT: conjunctiva pink, EOMI, PERRLA. ABSENT: scleral icterus Ear exam: PRESENT: normal external ear exam Mouth exam: PRESENT: moist, tongue midline Neck exam: ABSENT: carotid bruit, JVD, lymphadenopathy, thyromegaly Respiratory exam: PRESENT: clear to auscultation carmen. ABSENT: rales, rhonchi, wheezes Cardiovascular exam: PRESENT: RRR, tachycardia. ABSENT: diastolic murmur, rubs , systolic murmur Pulses: PRESENT: normal dorsalis pedis pul Vascular exam: PRESENT: normal capillary refill GI/Abdominal exam: PRESENT: normal bowel sounds, soft. ABSENT: distended, guarding, mass, organolmegaly, rebound, tenderness Rectal exam: PRESENT: deferred Extremities exam: PRESENT: full ROM. ABSENT: calf tenderness, clubbing, pedal edema Neurological exam: PRESENT: alert, awake, oriented to person, oriented to place , oriented to time, oriented to situation, CN II-XII grossly intact. ABSENT: motor sensory deficit Psychiatric exam: PRESENT: appropriate affect, normal mood. ABSENT: homicidal ideation, suicidal ideation Skin exam: PRESENT: dry, intact, warm. ABSENT: cyanosis, rash Results Laboratory Results: 11/12/16 03:30 11/12/16 11/12/16 03:30 03:30 Sodium 139.5 Potassium 4.8 Chloride 107 Carbon Dioxide 23 Anion Gap 10 BUN 17 Creatinine 0.90 Est GFR ( Amer) > 60 Est GFR (Non-Af Amer) > 60 Glucose 282 H Calcium 9.2 Total Bilirubin 0.6 AST 17 ALT 19 Alkaline Phosphatase 149 H Total Protein 6.9 Albumin 3.4 L TSH 2.43 11/11/16 11/12/16 21:30 03:30 Troponin I < 0.012 < 0.012 Impressions: Chest X-Ray 11/11/16 09:41 IMPRESSION: No significant interval change. No acute changes. Findings as noted above Limited or Localized CT 11/11/16 11:19 IMPRESSION: No CT evidence for diverticulitis as noted above. No renal or ureteric calculi are identified. Other findings as noted above Assessment & Plan - Diagnosis (1) Chest pain Qualifiers: Chest pain type: unspecified Qualified Code(s): R07.9 - Chest pain, unspecified Is this a current diagnosis for this admission?: YesPlan: Patient is ruling out Is noted that patient is tachycardic and somewhat hypotensive which may contribute to her chest pain We will reevaluate him her home medication and initiate or increased beta blockers to control heart rate CTA of the chest will be performed and an echocardiogram as well (2) Hyperglycemia due to type 2 diabetes mellitus Is this a current diagnosis for this admission?: YesPlan: blood sugars are running high We will reevaluate Lantus dose Increase Lantus as needed (3) Leukocytosis Qualifiers: Leukocytosis type: unspecified Qualified Code(s): D72.829 - Elevated white blood cell count, unspecified Is this a current diagnosis for this admission?: YesPlan: Chronic leukocytosis ; patient may have myelodysplasia She will be referred to hematology at discharge (4) Right lower quadrant abdominal pain Is this a current diagnosis for this admission?: Yes (5) Urinary tract infection Qualifiers: Urinary tract infection type: site unspecified Hematuria presence: with hematuria Qualified Code(s): N39.0 - Urinary tract infection, site not specified Is this a current diagnosis for this admission?: YesPlan: Awaiting culture and sensitivity Continue ertapenem (6) HTN (hypertension) Qualifiers: Hypertension type: essential hypertension Qualified Code(s): I10 - Essential (primary) hypertension Plan: Reevaluate meds blood pressure is running high (7) Morbid obesity Qualifiers: Obesity type: unspecified obesity type Qualified Code(s): E66.01 - Morbid (severe) obesity due to excess calories Is this a current diagnosis for this admission?: YesPlan: PT evaluation.
[2016-11-12] MEDS ORDERED: HYDRALAZINE HCL INJ/PF 20 MG/1 ML SDV IV PRN (08:23)
[2016-11-12] MEDS: ENOXAPARIN SODIUM INJ 40 MG/0.4 ML DISP.SYRIN SUBCUT SCH (08:28)
[2016-11-12] MEDS: INSULIN LISPRO 100 UNIT/ML 3 ML VIAL SUBCUT PRN ×2 (08:28→16:44)
[2016-11-12] MEDS: HUM INSULIN NPH/REG INSULIN HM 100 UNIT/1 ML 3 ML SUBCUT SCH ×2 (09:18→17:34)
[2016-11-12] MEDS: LOSARTAN POTASSIUM 50 MG TABLET PO SCH (09:19)
[2016-11-12] MEDS: SITAGLIPTIN PHOSPHATE 50 MG TABLET PO SCH (09:19)
[2016-11-12] MEDS: CITALOPRAM HYDROBROMIDE 20 MG TABLET PO SCH (09:19)
[2016-11-12] MEDS: CLOPIDOGREL BISULFATE 75 MG TABLET PO SCH (09:20)
[2016-11-12] MEDS: ISOSORBIDE MONONITRATE 30 MG TAB.ER.24H PO SCH (09:20)
[2016-11-12] MEDS: GABAPENTIN 300 MG CAPSULE PO SCH ×2 (09:20→22:01)
[2016-11-12] MEDS: METOPROLOL TARTRATE 100 MG TABLET PO SCH ×2 (09:20→22:01)
[2016-11-12] MEDS: ASPIRIN 81 MG TABLET, CHEWABLE PO SCH (09:20)
[2016-11-12] MEDS ORDERED: LOSARTAN POTASSIUM 50 MG TABLET PO SCH (10:00)
[2016-11-12] MEDS ORDERED: HUM INSULIN NPH/REG INSULIN HM 100 UNIT/1 ML 3 ML SUBCUT SCH ×2 (10:00)
[2016-11-12] MEDS ORDERED: (PENDING PHARMACY ID) (Citalopram Hydrobromide [Celexa 40 Mg Tablet] 40 MG) PO SCH (10:00)
--- NOTE | 2016-11-12 17:07 | XCELERA REPORT ---
[address] [address] Transthoracic Echocardiogram Report Name: ORACIO PEDROZA Age: 81 yrs Gender: Female : 1935 Patient Status: Inpatient Patient Location: 5\S\537\S\A Study Date: 11/12/2016 01:51 PM Height: 65 in Weight: 226 lb BSA: 2.1 m2 Procedure: A complete two-dimensional transthoracic echocardiogram was performed (2D, M-mode, spectral and color flow Doppler). The study was technically difficult with many images being suboptimal in quality. Reason For Study: tachycardia Ordering Physician: ENRIQUE MORFIN Performed By: Tashi Pruett Interpretation Summary The left ventricular ejection fraction is normal. Doppler measurements suggest pseudonormalized left ventricular relaxation, which is associated with grade II/IV or mild to moderate diastolic dysfunction There is mild concentric left ventricular hypertrophy. The left ventricle is grossly normal size. Wall motion cannot be accurately commented on, but no definite regional wall motion abnormalities noted. The right ventricular systolic function is normal. The right atrium is normal in size The left atrium is borderline dilated. There is a trace amount of mitral regurgitation There is no mitral valve stenosis. No aortic regurgitation is present. There is no aortic valve stenosis There is a trace to mild amount of tricuspid regurgitation There is mild pulmonary hypertension by echo Right ventricular systolic pressure is estimated to be elevated at 30- 40mmHg. There is no pericardial effusion. MMode/2D Measurements \T\ Calculations RVDd: 2.0 cm LVIDd: 4.6 cm FS: 47.8 % Ao root diam: 3.1 cm IVSd: 1.1 cm LVIDs: 2.4 cm EDV(Teich): 95.9 ml LVPWd: 1.1 cm ESV(Teich): 19.8 ml Ao root area: 7.4 cm2 EF(Teich): 79.3 % LA dimension: 3.4 cm Doppler Measurements \T\ Calculations MV E max keily: MV P1/2t max keily: Ao V2 max: LV V1 max P.9 cm/sec 88.4 cm/sec 172.2 cm/sec 5.6 mmHg MV A max keily: MV P1/2t: 73.0 msec Ao max PG: LV V1 max: 122.4 cm/sec 11.9 mmHg 118.4 cm/sec MV E/A: 0.71 MVA(P1/2t): 3.0 cm2 MV dec slope: 354.5 cm/sec2 PA V2 max: TR max keily: RAP systole: 98.7 cm/sec 244.8 cm/sec 10.0 mmHg PA max P.9 mmHgTR max P.1 mmHg RVSP(TR): 34.1 mmHg Left Ventricle The left ventricle is grossly normal size. There is mild concentric left ventricular hypertrophy. The left ventricular ejection fraction is normal. Doppler measurements suggest pseudonormalized left ventricular relaxation, which is associated with grade II/IV or mild to moderate diastolic dysfunction. Wall motion cannot be accurately commented on, but no definite regional wall motion abnormalities noted. Right Ventricle The right ventricle is normal in size, thickness and function. There is normal right ventricular wall thickness. The right ventricular systolic function is normal. Atria The right atrium is normal in size. The left atrium is borderline dilated. Interarterial septum not well visualized and not well dopplered. Cannot comment on ASD/PFO presence. Mitral Valve The mitral valve is grossly normal. There is no mitral valve stenosis. There is a trace amount of mitral regurgitation. Aortic Valve The aortic valve is mildly calcified. There is no aortic valve stenosis. No aortic regurgitation is present. Tricuspid Valve The tricuspid valve is not well visualized, but is grossly normal. There is no tricuspid stenosis. There is a trace to mild amount of tricuspid regurgitation. Right ventricular systolic pressure is estimated to be elevated at 30-40mmHg. There is mild pulmonary hypertension by echo. Pulmonic Valve The pulmonic valve is not well visualized. Great Vessels The aortic root is not well visualized. The inferior vena cava appeared normal and decreased > 50% with respiration (RAP 5-10 mmHg). Effusions There is no pericardial effusion. : ENRIQUE MORFIN > Bud Medina
[2016-11-12] MEDS: ERTAPENEM SODIUM 1 GM in NORMAL SALINE 50 ML IV SCH (22:01)
[2016-11-13] MEDS: LANSOPRAZOLE 15 MG TAB.RAP.DR PO SCH (05:16)
[2016-11-13] MEDS: ENOXAPARIN SODIUM INJ 40 MG/0.4 ML DISP.SYRIN SUBCUT SCH (08:10)
[2016-11-13] MEDS: HUM INSULIN NPH/REG INSULIN HM 100 UNIT/1 ML 3 ML SUBCUT SCH ×2 (09:48→17:24)
[2016-11-13] MEDS: SITAGLIPTIN PHOSPHATE 50 MG TABLET PO SCH (09:49)
[2016-11-13] MEDS: METOPROLOL TARTRATE 100 MG TABLET PO SCH ×2 (09:49→21:26)
[2016-11-13] MEDS: CLOPIDOGREL BISULFATE 75 MG TABLET PO SCH (09:50)
[2016-11-13] MEDS: LOSARTAN POTASSIUM 50 MG TABLET PO SCH (09:50)
[2016-11-13] MEDS: ISOSORBIDE MONONITRATE 30 MG TAB.ER.24H PO SCH (09:50)
[2016-11-13] MEDS: CITALOPRAM HYDROBROMIDE 20 MG TABLET PO SCH (09:50)
[2016-11-13] MEDS: GABAPENTIN 300 MG CAPSULE PO SCH ×2 (09:50→21:26)
[2016-11-13] MEDS: ASPIRIN 81 MG TABLET, CHEWABLE PO SCH (09:50)
[2016-11-13] MEDS: OXYCODONE-ACETAMINOPHEN 5-325 MG TABLET PO PRN (09:53)
[2016-11-13] MEDS: INSULIN LISPRO 100 UNIT/ML 3 ML VIAL SUBCUT PRN (12:07)
--- NOTE | 2016-11-13 16:12 | EKG REPORT ---
SEVERITY:- ABNORMAL ECG - SINUS RHYTHM PROBABLE ANTEROSEPTAL INFARCT, AGE INDETERM BORDERLINE PROLONGED QT INTERVAL : Confirmed by: Seble Miguel MD 13-Nov-2016 16:11:46
--- NOTE | 2016-11-13 17:06 | PDOC PROGRESS REPORT ---
Subjective Progress Note for:: 11/13/16 Subjective:: Patient a had a "a bad night" with need of urinating many times She does not have any pressure over her bladder now No fever no chills and is feeling better still weak Physical Exam Vital Signs: Temp Pulse Resp BP Pulse Ox 98.3 F 82 18 148/74 H 96 11/13/16 08:13 11/13/16 14:00 11/13/16 08:13 11/13/16 08:13 11/13/16 08:13 Intake & Output 11/12/16 11/13/16 11/14/16 00:59 00:59 00:59 Intake Total 2855 80 Balance 2855 80 Weight 102.6 kg 102.9 kg 101.1 kg General appearance: PRESENT: no acute distress Head exam: PRESENT: atraumatic, normocephalic Eye exam: PRESENT: conjunctiva pink, EOMI, PERRLA. ABSENT: scleral icterus Neck exam: ABSENT: carotid bruit, JVD, lymphadenopathy, thyromegaly Respiratory exam: PRESENT: clear to auscultation carmen. ABSENT: rales, rhonchi, wheezes Cardiovascular exam: PRESENT: RRR. ABSENT: diastolic murmur, rubs, systolic murmur Pulses: PRESENT: normal dorsalis pedis pul GI/Abdominal exam: PRESENT: normal bowel sounds, soft. ABSENT: distended, guarding, mass, organolmegaly, rebound, tenderness Extremities exam: PRESENT: full ROM. ABSENT: calf tenderness, clubbing, pedal edema Neurological exam: PRESENT: alert, awake, CN II-XII grossly intact Results Laboratory Results: 11/12/16 03:30 11/11/16 11/12/16 11/12/16 21:30 03:30 09:30 Troponin I < 0.012 < 0.012 < 0.012 Impressions: Chest X-Ray 11/11/16 09:41 IMPRESSION: No significant interval change. No acute changes. Findings as noted above Limited or Localized CT 11/11/16 11:19 IMPRESSION: No CT evidence for diverticulitis as noted above. No renal or ureteric calculi are identified. Other findings as noted above Chest/Abdomen CTA 11/12/16 07:54 IMPRESSION: No CT angio evidence of acute pulmonary emboli or thoracic aortic dissection. Nonspecific mediastinal adenopathy. Splenomegaly. Small hiatal hernia. Assessment & Plan - Diagnosis (1) Chest pain Qualifiers: Chest pain type: unspecified Qualified Code(s): R07.9 - Chest pain, unspecified Is this a current diagnosis for this admission?: Yes (2) Hyperglycemia due to type 2 diabetes mellitus Is this a current diagnosis for this admission?: Yes (3) Leukocytosis Qualifiers: Leukocytosis type: unspecified Qualified Code(s): D72.829 - Elevated white blood cell count, unspecified Is this a current diagnosis for this admission?: Yes (4) Right lower quadrant abdominal pain Is this a current diagnosis for this admission?: Yes (5) Urinary tract infection Qualifiers: Urinary tract infection type: site unspecified Hematuria presence: with hematuria Qualified Code(s): N39.0 - Urinary tract infection, site not specified Is this a current diagnosis for this admission?: Yes (6) HTN (hypertension) Qualifiers: Hypertension type: essential hypertension Qualified Code(s): I10 - Essential (primary) hypertension (7) Morbid obesity Qualifiers: Obesity type: unspecified obesity type Qualified Code(s): E66.01 - Morbid (severe) obesity due to excess calories Is this a current diagnosis for this admission?: Yes - Time Time Spent with patient: Patient likely has an overactive bladder Start Detrol 2 mg by mouth every 12 Change her antibiotics to by mouth Consider discharge in a.m. Patient will need home PT Time Spent with patient: 25-34 minutes
[2016-11-13] MEDS: CEFPODOXIME 200 MG TABLET PO SCH (21:26)
[2016-11-13] MEDS: TOLTERODINE TARTRATE 1 MG TABLET PO SCH (21:26)
[2016-11-14] MEDS: LANSOPRAZOLE 15 MG TAB.RAP.DR PO SCH (05:12)
[2016-11-14 05:43] LABS: HEMATOCRIT 47.3 % (36.0-47.0); HEMOGLOBIN 14.6 g/dL (12.0-15.5); HGB HCT DIFFERENCE -3.5; MEAN CORPUSCULAR HEMOGLOBIN 20.5 pg (27.0-33.4); MEAN CORPUSCULAR HGB CONC 30.8 g/dL (32.0-36.0); MEAN CORPUSCULAR VOLUME 67 fl (80-97); RED CELL DISTRIBUTION WIDTH 21.6 % (11.5-14.0)
[2016-11-14 06:06] LABS: BAND NEUTROPHILS % (MANUAL) 1 % (3-5); BASOPHILS % (MANUAL) 2 % (0-2); EOSINOPHILS % (MANUAL) 0 % (0-6); LYMPHOCYTES % (MANUAL) 5 % (13-45); TOTAL CELLS COUNTED 100
[2016-11-14 06:09] LABS: ANISOCYTOSIS 2+; HYPOCHROMASIA 1+; MICROCYTOSIS 2+; POIKILOCYTOSIS SLIGHT; POLYCHROMASIA SLIGHT
[2016-11-14 06:10] LABS: ANION GAP 12 (5-19); BLOOD UREA NITROGEN 17 mg/dL (7-20); CALCIUM 10.1 mg/dL (8.4-10.2); CARBON DIOXIDE 26 mmol/L (22-30); CHLORIDE 105 mmol/L (98-107); CREATININE RESULT 0.83 mg/dL (0.52-1.25); GLUCOSE 142 mg/dL (75-110); OVALOCYTES SLIGHT; POTASSIUM 4.6 mmol/L (3.6-5.0); SODIUM 142.8 mmol/L (137-145)
[2016-11-14] MEDS: OXYCODONE-ACETAMINOPHEN 5-325 MG TABLET PO PRN (06:23)
[2016-11-14] MEDS: HUM INSULIN NPH/REG INSULIN HM 100 UNIT/1 ML 3 ML SUBCUT SCH ×2 (10:16→17:15)
[2016-11-14] MEDS: ENOXAPARIN SODIUM INJ 40 MG/0.4 ML DISP.SYRIN SUBCUT SCH (10:17)
[2016-11-14] MEDS: CEFPODOXIME 200 MG TABLET PO SCH ×2 (10:17→22:09)
[2016-11-14] MEDS: METOPROLOL TARTRATE 100 MG TABLET PO SCH ×2 (10:17→22:09)
[2016-11-14] MEDS: SITAGLIPTIN PHOSPHATE 50 MG TABLET PO SCH (10:18)
[2016-11-14] MEDS: TOLTERODINE TARTRATE 1 MG TABLET PO SCH ×2 (10:18→22:08)
[2016-11-14] MEDS: GABAPENTIN 300 MG CAPSULE PO SCH ×2 (10:18→22:09)
[2016-11-14] MEDS: CLOPIDOGREL BISULFATE 75 MG TABLET PO SCH (10:18)
[2016-11-14] MEDS: CITALOPRAM HYDROBROMIDE 20 MG TABLET PO SCH (10:18)
[2016-11-14] MEDS: LOSARTAN POTASSIUM 50 MG TABLET PO SCH (10:18)
[2016-11-14] MEDS: ISOSORBIDE MONONITRATE 30 MG TAB.ER.24H PO SCH (10:18)
[2016-11-14] MEDS: NYSTATIN TOPICAL POWDER 15 GM TP SCH ×2 (10:19→17:16)
[2016-11-14] MEDS: ASPIRIN 81 MG TABLET, CHEWABLE PO SCH (10:19)
[2016-11-14] MEDS: INSULIN LISPRO 100 UNIT/ML 3 ML VIAL SUBCUT PRN (14:18)
--- NOTE | 2016-11-14 17:53 | PDOC CONSULTATION ---
Consultation Consult Date: 11/14/16 Attending physician:: ENRIQUE MORFIN Consult reason:: Chest pain, known CAD History of Present Illness Admission Date/PCP: 11/11/16 18:50 SARAI ALEXANDER, Patient complains of: Chest pain History of Present Illness: ORACIO PEDROZA is a 81 year old female with a known history of recurrent UTIs, CAD, hypertension, CVA Was admitted through the ED with chest pain and abdominal pain chest pain was described as pressure like intermittent occurred early in the morning And woke up the patient from her sleep It did not radiate It resolved without medications The abdominal pain was diffuse, worse in the right lower quadrant and constant upon evaluation in the ED patient had a negative CT abdomen and pelvis; urine analysis was suggestive of urinary tract infection Her initial cardiac workup was negative She was subsequently admitted to telemetry unit for further evaluation and care. Patient has not had any recurrence of chest pain. Patient however does want to pursue a stress test prior to discharge. She does have known history of coronary artery disease with prior stent placement. Patient also had a history of cerebrovascular accident with some residual dysphasia. Patient has not been much physically active while in the hospital. She is however significantly improved. This history was reviewed, confirmed and supplemented. Past Medical History Cardiac Medical History: Reports: Congestive Heart Failure - reports an acute episode previously, unsure of year, Myocardial Infarction - EKG suggests probable prior infarction, Hyperlipidema, Hypertension Endocrine Medical History: Reports: Diabetes Mellitus Type 2 Renal/ Medical History: Denies: End Stage Renal Disease GI Medical History: Reports: Gastroesophageal Reflux Disease Musculoskeltal Medical History: Reports: Arthritis Psychiatric Medical History: Reports: Depression Past Surgical History Past Surgical History: Reports: Appendectomy, Hysterectomy, Tonsillectomy, Other - Cardiac loop recorder, bilateral cataract surgery Social History Information Source: Patient Lives with: Family Smoking Status: Never Smoker Frequency of Alcohol Use: None Hx Recreational Drug Use: No Drugs: None Hx Prescription Drug Abuse: No - Advance Directive Resuscitation Status: Full Code Family History Family History: Reviewed & Not Pertinent, DM, Hypertension, Malignancy - Father with lung cancer, Other Parental Family History Reviewed: Yes Children Family History Reviewed: Yes Sibling(s) Family History Reviewed.: Yes Medication/Allergy Home Medications: Aspirin [Aspirin 81 mg Chewable Tablet] 81 mg PO DAILY 11/11/16 Citalopram Hydrobromide [Celexa 40 mg Tablet] 40 mg PO DAILY 11/11/16 Clopidogrel Bisulfate [Plavix 75 mg Tablet] 75 mg PO DAILY 11/11/16 Gabapentin [Neurontin 300 mg Capsule] 300 mg PO Q12 11/11/16 Hum Insulin NPH/Reg Insulin Hm [Insulin Inj 70-30 (100 Unit/1 ml) 3 ml Vial] 60 unit SUBCUT BID 11/11/16 Losartan Potassium [Cozaar 50 mg Tablet] 50 mg PO DAILY 11/11/16 Metoprolol Tartrate [Lopressor 100 mg Tablet] 100 mg PO Q12 11/11/16 Oxycodone HCl/Acetaminophen [Percocet 5-325 mg Tablet] 1 tab PO Q6HP PRN Sitagliptin Phosphate [Januvia 50 mg Tablet] 100 mg PO DAILY 11/11/16 Trazodone HCl [Desyrel 50 mg Tablet] 50 mg PO HSP PRN 11/11/16 Allergies/Adverse Reactions: amoxicillin Allergy (Intermediate, Verified 11/11/16 10:33) Penicillins Allergy (Verified 11/11/16 10:33) Review of Systems Review of Systems: Please see history of present illness and past medical history as wall. Constitutional: No fever or chills reported. Head : No recent chronic headaches, recent head injury. Eyes: No recent eye pain, diplopia, redness, discharge, acute visual changes. Ears: No recent chronic ear pain, acute hearing loss, ear discharge. Oral cavity: No recent ulcerations, bleeding, oral cavity discomfort. Neck: No recent acute neck pain reported. Hematologic: No recent easy bruising or bleeding or hematologic malignancy reported. Lymphatic: No recent lymphatic malignancy, chronic lymphadenopathy reported yet Cardiovascular system review: See history of present illness. Respiratory system review: No recent chronic cough, hemoptysis, blood clots in the lungs reported. Mild Shortness of breath on exertion Gastrointestinal system review: Negative for any recent acute or chronic abdominal pain, hematemesis, melena, recent change in bowel habits. Genitourinary system review: No recent acute or chronic hematuria, flank pain, UTI etc. reported. Skin system review: Negative for any recent abnormal bruising, no rash, no pruritus reported. Neurologic: Positive prior history of strokes, mini strokes, no seizure disorder. Psychologic: No history of major psychosis or major depression reported. Musculoskeletal: Minor aches and pains reported. No acute joint swelling reported. Endocrine: No recent polyuria, polydipsia, recent heat or cold intolerance. Physical Exam Vital Signs: Temp Pulse Resp BP Pulse Ox 98.1 F 75 20 147/75 H 94 11/14/16 16:08 11/14/16 16:08 11/14/16 16:08 11/14/16 16:08 11/14/16 16:08 Intake & Output 11/13/16 11/14/16 11/15/16 06:59 06:59 06:59 Intake Total 860 210 867 Balance 860 210 867 Weight 101.1 kg 107.3 kg Exam: GENERAL: well-nourished and in no acute distress. Alert and oriented x3 HEAD: Atraumatic, normocephalic. EYES: Pupils equal round and reactive to light, extraocular movements intact, sclera anicteric, conjunctiva are normal. ENT: TMs normal, nares patent, oropharynx clear without exudates. Moist mucous membranes. No oral ulcerations or bleeding gums noted NECK: supple without lymphadenopathy. Trachea is central. No cervical or axillary lymphadenopathy noted. Carotids are 2+, JVD WNL LUNGS: Respiration seems nonlabored, no significant accessory muscle action noted. Breath sounds clear to auscultation bilaterally and equal noted. No wheezes rales or rhonchi noted. No significant dullness noted on percussion. CHEST: Palpation of the chest wall shows no significant chest wall tenderness. No other significant abnormalities noted. 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 ABDOMEN: Soft, no significant tenderness appreciated, normoactive bowel sounds. No guarding, no rebound. No rigidity noted . No masses appreciated. EXTREMITIES: Pedal pulses are 1-2+, no calf tenderness noted. No clubbing or cyanosis.trace to 1+ pedal edema noted NEUROLOGICAL: Focused neurological exam showed no significant neurologic deficit. Normal speech, no focal weakness appreciated. PSYCH: Normal mood, normal affect. Judgment and insight within normal limits. SKIN: No significant ecchymosis, rash, ulcerations or signs of pruritus noted. MUSCULOSKELETAL EXAM: No significant joint swelling noted. Results Laboratory Results: 11/14/16 05:34 11/14/16 05:34 11/14/16 11/14/16 05:34 05:34 WBC 19.0 H RBC 7.10 H Hgb 14.6 Hct 47.3 H MCV 67 L MCH 20.5 L MCHC 30.8 L RDW 21.6 H Plt Count 264 Seg Neutrophils % Not Reportable Lymphocytes % Not Reportable Monocytes % Not Reportable Eosinophils % Not Reportable Basophils % Not Reportable Absolute Neutrophils Not Reportable Absolute Lymphocytes Not Reportable Absolute Monocytes Not Reportable Absolute Eosinophils Not Reportable Absolute Basophils Not Reportable Sodium 142.8 Potassium 4.6 Chloride 105 Carbon Dioxide 26 Anion Gap 12 BUN 17 Creatinine 0.83 Est GFR ( Amer) > 60 Est GFR (Non-Af Amer) > 60 Glucose 142 H Calcium 10.1 11/11/16 11/12/16 11/12/16 21:30 03:30 09:30 Troponin I < 0.012 < 0.012 < 0.012 EKG Comments: Sinus rhythm, QS complex in V1 to V3 consistent with prior anteroseptal myocardial infarction. 2-D echocardiogram had shown normal LVEF. Impressions: Chest X-Ray 11/11/16 09:41 IMPRESSION: No significant interval change. No acute changes. Findings as noted above Limited or Localized CT 11/11/16 11:19 IMPRESSION: No CT evidence for diverticulitis as noted above. No renal or ureteric calculi are identified. Other findings as noted above Chest/Abdomen CTA 11/12/16 07:54 IMPRESSION: No CT angio evidence of acute pulmonary emboli or thoracic aortic dissection. Nonspecific mediastinal adenopathy. Splenomegaly. Small hiatal hernia. Assessment & Plan - Diagnosis (1) Chest pain Qualifiers: Chest pain type: unspecified Qualified Code(s): R07.9 - Chest pain, unspecified Is this a current diagnosis for this admission?: Yes (2) Urinary tract infection Qualifiers: Urinary tract infection type: site unspecified Hematuria presence: with hematuria Qualified Code(s): N39.0 - Urinary tract infection, site not specified Is this a current diagnosis for this admission?: Yes (3) HTN (hypertension) Qualifiers: Hypertension type: essential hypertension Qualified Code(s): I10 - Essential (primary) hypertension (4) CAD (coronary artery disease) Qualifiers: Coronary Disease-Associated Artery/Lesion type: [place] artery [place] vs. 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 This was evaluated with a nuclear stress test. Nuclear stress test was negative for any significant areas of ischemia or any significant areas of scar. The nuclear stress test is felt to be relatively low risk. Patient informed that occasionally single-vessel disease and balanced ischemia could be missed. Patient advised aggressive risk factor modification and medical therapy. Patient informed that further evaluation may become necessary if symptoms worsens or there is a development of new symptoms indicative of angina or angina equivalent symptom. UTI: Patient has been treated for it. Hypertension:Hypertension: Reasonably well controlled. Blood pressure goal in this patient is 135/85 or less. This was discussed with the patient. Currently blood pressure under reasonable control. Better medication for this patient are KIKE inhibitor/ARB/beta alshell etc. discussed side effects of uncontrolled hypertension and also severe hypotension. Coronary artery disease: Patient noted to have coronary calcification. Recommend statin therapy and other supportive therapy, antiplatelet therapy. Diabetes: Recommend good control of blood sugar. However should avoid any hypoglycemia. Patient being expertly managed by primary care Annabel History of cerebrovascular accident: Discussed further evaluation as an outpatient with event monitor and sleep study if needed - Time Time Spent: 30 to 50 Minutes - CODE STATUS was discussed, patient remains full code. Surrogate decision-maker patient's daughter. Multiple medical problems were addressed.More than 50% of the time spent coordinating care, discussing management plans with involved caregivers. Management plans discussed with involved personnels. Medical decision making was of moderate complexity.
--- NOTE | 2016-11-14 18:26 | PDOC PROGRESS REPORT ---
Subjective Progress Note for:: 11/14/16 Subjective:: doing well , no CP no SOB Physical Exam Vital Signs: Temp Pulse Resp BP Pulse Ox 98.1 F 75 20 147/75 H 94 11/14/16 16:08 11/14/16 16:08 11/14/16 16:08 11/14/16 16:08 11/14/16 16:08 Intake & Output 11/13/16 11/14/16 11/15/16 00:59 00:59 00:59 Intake Total 2855 90 1067 Balance 2855 90 1067 Weight 102.9 kg 107.3 kg General appearance: PRESENT: no acute distress, well-developed, well-nourished Head exam: PRESENT: atraumatic, normocephalic Eye exam: PRESENT: conjunctiva pink, EOMI, PERRLA. ABSENT: scleral icterus Ear exam: PRESENT: normal external ear exam Mouth exam: PRESENT: moist, tongue midline Neck exam: ABSENT: carotid bruit, JVD, lymphadenopathy, thyromegaly Respiratory exam: PRESENT: clear to auscultation carmen. ABSENT: rales, rhonchi, wheezes Cardiovascular exam: PRESENT: RRR. ABSENT: diastolic murmur, rubs, systolic murmur Pulses: PRESENT: normal dorsalis pedis pul Vascular exam: PRESENT: normal capillary refill GI/Abdominal exam: PRESENT: normal bowel sounds, soft. ABSENT: distended, guarding, mass, organolmegaly, rebound, tenderness Rectal exam: PRESENT: deferred Extremities exam: PRESENT: full ROM. ABSENT: calf tenderness, clubbing, pedal edema Neurological exam: PRESENT: alert, awake, oriented to person, oriented to place , oriented to time, oriented to situation, CN II-XII grossly intact. ABSENT: motor sensory deficit Psychiatric exam: PRESENT: appropriate affect, normal mood. ABSENT: homicidal ideation, suicidal ideation Skin exam: PRESENT: dry, intact, warm. ABSENT: cyanosis, rash Results Laboratory Results: 11/14/16 05:34 11/14/16 05:34 11/14/16 11/14/16 05:34 05:34 WBC 19.0 H RBC 7.10 H Hgb 14.6 Hct 47.3 H MCV 67 L MCH 20.5 L MCHC 30.8 L RDW 21.6 H Plt Count 264 Seg Neutrophils % Not Reportable Lymphocytes % Not Reportable Monocytes % Not Reportable Eosinophils % Not Reportable Basophils % Not Reportable Absolute Neutrophils Not Reportable Absolute Lymphocytes Not Reportable Absolute Monocytes Not Reportable Absolute Eosinophils Not Reportable Absolute Basophils Not Reportable Sodium 142.8 Potassium 4.6 Chloride 105 Carbon Dioxide 26 Anion Gap 12 BUN 17 Creatinine 0.83 Est GFR ( Amer) > 60 Est GFR (Non-Af Amer) > 60 Glucose 142 H Calcium 10.1 11/11/16 11/12/16 11/12/16 21:30 03:30 09:30 Troponin I < 0.012 < 0.012 < 0.012 11/11/16 15:25 Urine Culture - Preliminary Catheterized Urine Escherichia Coli Gram Positive Cocci Impressions: Chest X-Ray 11/11/16 09:41 IMPRESSION: No significant interval change. No acute changes. Findings as noted above Limited or Localized CT 11/11/16 11:19 IMPRESSION: No CT evidence for diverticulitis as noted above. No renal or ureteric calculi are identified. Other findings as noted above Chest/Abdomen CTA 11/12/16 07:54 IMPRESSION: No CT angio evidence of acute pulmonary emboli or thoracic aortic dissection. Nonspecific mediastinal adenopathy. Splenomegaly. Small hiatal hernia. Assessment & Plan - Diagnosis (1) Chest pain Qualifiers: Chest pain type: unspecified Qualified Code(s): R07.9 - Chest pain, unspecified Is this a current diagnosis for this admission?: Yes (2) Hyperglycemia due to type 2 diabetes mellitus Is this a current diagnosis for this admission?: Yes (3) Leukocytosis Qualifiers: Leukocytosis type: unspecified Qualified Code(s): D72.829 - Elevated white blood cell count, unspecified Is this a current diagnosis for this admission?: YesPlan: improved 11/11/16 11/14/16 10:02 05:34 WBC 28.2 H 19.0 H (4) Right lower quadrant abdominal pain Is this a current diagnosis for this admission?: Yes (5) Urinary tract infection Qualifiers: Urinary tract infection type: site unspecified Hematuria presence: with hematuria Qualified Code(s): N39.0 - Urinary tract infection, site not specified Is this a current diagnosis for this admission?: Yes (6) HTN (hypertension) Qualifiers: Hypertension type: essential hypertension Qualified Code(s): I10 - Essential (primary) hypertension (7) Morbid obesity Qualifiers: Obesity type: unspecified obesity type Qualified Code(s): E66.01 - Morbid (severe) obesity due to excess calories Is this a current diagnosis for this admission?: Yes - Time Time Spent with patient: continue present management cardiac stress test in am Time Spent with patient: 15-24 minutes
[2016-11-15] MEDS: LANSOPRAZOLE 15 MG TAB.RAP.DR PO SCH (05:01)
--- NOTE | 2016-11-15 09:42 | Physician Advisory Note ---
Physician Advisor ProgressNote .: [facility] for this patient. Physician Advisor Statement: 1. Likely cause of CP & abd pain please - specify. CK
[2016-11-15] MEDS ORDERED: AMINOPHYLLINE INJ/PF 250 MG/10 ML SDV IV ONE (10:29)
[2016-11-15] MEDS ORDERED: REGADENOSON INJ 0.4 MG/5 ML DISP.SYRIN IV ONE (10:29)
[2016-11-15] MEDS: METOPROLOL TARTRATE 100 MG TABLET PO SCH (11:46)
[2016-11-15] MEDS: CITALOPRAM HYDROBROMIDE 20 MG TABLET PO SCH (11:53)
[2016-11-15] MEDS: LOSARTAN POTASSIUM 50 MG TABLET PO SCH (11:53)
[2016-11-15] MEDS: TOLTERODINE TARTRATE 1 MG TABLET PO SCH (11:53)
[2016-11-15] MEDS: ASPIRIN 81 MG TABLET, CHEWABLE PO SCH (11:53)
[2016-11-15] MEDS: CLOPIDOGREL BISULFATE 75 MG TABLET PO SCH (11:54)
[2016-11-15] MEDS: SITAGLIPTIN PHOSPHATE 50 MG TABLET PO SCH (11:54)
[2016-11-15] MEDS: ISOSORBIDE MONONITRATE 30 MG TAB.ER.24H PO SCH (11:54)
[2016-11-15] MEDS: HUM INSULIN NPH/REG INSULIN HM 100 UNIT/1 ML 3 ML SUBCUT SCH (11:55)
--- NOTE | 2016-11-15 13:13 | DRAGON STRESS TEST REPORT ---
INTRAVENOUS LEXISCAN CARDIOLITE STRESS TEST USING SINGLE PHOTON EMMISION COMPUTERIZED TOMOGRAPHIC. DATE OF PROCEDURE: November 15, 2016 INDICATION : Chest pain CARDIAC RISK FACTORS: Diabetes, hypertension RESTING EKG: Sinus rhythm, without any baseline ST-T wave changes STRESS EKG: No significant changes noted with LexiScan bolus REASON FOR TERMINATION: Protocol. PROCEDURE REPORT: Baseline heart rate 80 beats per minute with blood pressure of 91/55. Patient had no significant complaints. Heart rate at 2 minutes post bolus 89 with a blood pressure of 107/52. 3 minutes post bolus heart rate 88 with blood pressure of 109/54. No significant EKG changes were noted. Patient had no significant complaints during the procedure or postprocedure. CONCLUSIONS: Normal EKG and hemodynamic response to IV LexiScan. NUCLEAR DATA: At rest the patient was given 14.31 millicuries of technetium 99 sestamibi injected intravenously. As per protocol rest gated SPECT images were obtained. Subsequently the patient was given intravenous LexiScan at a dose of 0.4 mg in 5 mL intravenously, followed by flush with normal saline. Subsequently the stress dose of 43.2 millicuries of technetium 99 sestamibi was injected intravenously. As per protocol stress gated images were obtained. NUCLEAR INTERPRETATION: Both raw and processed data were used for interpretation. Visual, qualitative, computer-generated quantitative data was used. There was good myocardial uptake of technetium compound. Motion artifact and soft tissue attenuations were noted. Increased visceral uptake was noted. No definitive areas of transient perfusion defect noted. Mild Decreased uptake was noted in the basal and midinferior wall in stress imaging as compared to rest imaging however there was no corresponding region of wall motion abnormality and therefore is felt to be artifactual and related to diaphragmatic attenuation and visceral uptake effect. No definitive areas of fixed perfusion defect or scars noted. EKG gated imaging showed LV EF at 63 %, rest and stress gated EF similar visually. T. I D. ratio was 1.20. Lung heart ratio noted to be within normal limits 0.32. No significant extracardiac and abnormal radiotracer activities were noted. RV free wall uptake was noted to be highly increased. IMPRESSION: Also refer to comments under nuclear interpretation. Also test results needs to be interpreted in the context of pretest probability. 1. There is no definitive scintigraphic evidence of LexiScan induced myocardial ischemia. 2. There is no definitive scintigraphic evidence of myocardial infarction/scar. 3. EKG gated imaging shows left ejection fraction of approximately 63 %. 4. Clinical correlation requested as occasionally single vessel disease or balanced ischemia could be missed. In approximately 10% of the cases Lexiscan may not cause adequate vasodilatory stress. RECOMMENDATIONS: Aggressive risk factor modification, medical therapy. Clinical correlation with echocardiogram derived ejection fraction. Inability to exercise by itself can lead to increased cardiovascular event risks. Consider cardiology consultation and or follow-up if clinically indicated. I AM AVAILABLE FOR CARDIOLOGY CONSULTATION AND FOLLOWUP IF REQUESTED BY PMD LAUREN Toribio M.D. Applications Intern clinical applications manager, Board certified in cardiovascular diseases, Nuclear cardiology, Echocardiography Cardiac CT and cardiac MRI Ph. [phone] SANTY
[2016-11-15 14:27] VITALS: BP 144/61
--- NOTE | 2016-11-15 19:28 | PDOC PROGRESS REPORT ---
Subjective Progress Note for:: 11/15/16 Subjective:: Patient seems to be doing better with gradual improvement. Pt is denying any chest arm or neck discomfort. Patient denying any PND, orthopnea. Patient denied any sustained palpitations, dizziness, syncope, near syncope. Patient denying any fever chills. Patient denying any other significant discomfort. Patient is maintaining sinus rhythm. Review of systems: Rest review of systems negative. Medications: Medications have been reviewed. Nuclear stress test procedure was explained to the patient in detail. Risks benefits were discussed and informed consent was obtained. Alternatives were discussed. Patient informed that based on risk factors, physical exam, lab data findings and symptoms there is at least intermediate probability of underlying CAD. Nuclear stress test procedure was therefore scheduled. Physical Exam Vital Signs: Temp Pulse Resp BP Pulse Ox 97.9 F 83 16 144/61 H 95 11/15/16 14:16 11/15/16 14:16 11/15/16 14:16 11/15/16 14:16 11/15/16 14:16 Intake & Output 11/14/16 11/15/16 11/16/16 06:59 06:59 06:59 Intake Total 210 867 Balance 210 867 Weight 107.3 kg 107.6 kg Exam: GENERAL: well-nourished and in no acute distress. Alert and oriented x3 HEAD: Atraumatic, normocephalic. EYES: Pupils equal round and reactive to light, extraocular movements intact, sclera anicteric, conjunctiva are normal. ENT: TMs normal, nares patent, oropharynx clear without exudates. Moist mucous membranes. No oral ulcerations or bleeding gums noted NECK: supple without lymphadenopathy. Trachea is central. No cervical or axillary lymphadenopathy noted. Carotids are 2+, JVD WNL LUNGS: Respiration seems nonlabored, no significant accessory muscle action noted. Breath sounds clear to auscultation bilaterally and equal noted. No wheezes rales or rhonchi noted. No significant dullness noted on percussion. CHEST: Palpation of the chest wall shows no significant chest wall tenderness. No other significant abnormalities noted. 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 ABDOMEN: Soft, no significant tenderness appreciated, normoactive bowel sounds. No guarding, no rebound. No rigidity noted . No masses appreciated. EXTREMITIES: Pedal pulses are 1-2+, no calf tenderness noted. No clubbing or cyanosis.trace to 1+ pedal edema noted NEUROLOGICAL: Focused neurological exam showed no significant neurologic deficit. Normal speech, no focal weakness appreciated. PSYCH: Normal mood, normal affect. Judgment and insight within normal limits. SKIN: No significant ecchymosis, rash, ulcerations or signs of pruritus noted. MUSCULOSKELETAL EXAM: No significant joint swelling noted. Results Laboratory Results: 11/14/16 05:34 11/14/16 05:34 11/11/16 11/12/16 11/12/16 21:30 03:30 09:30 Troponin I < 0.012 < 0.012 < 0.012 Impressions: Chest X-Ray 11/11/16 09:41 IMPRESSION: No significant interval change. No acute changes. Findings as noted above Limited or Localized CT 11/11/16 11:19 IMPRESSION: No CT evidence for diverticulitis as noted above. No renal or ureteric calculi are identified. Other findings as noted above Chest/Abdomen CTA 11/12/16 07:54 IMPRESSION: No CT angio evidence of acute pulmonary emboli or thoracic aortic dissection. Nonspecific mediastinal adenopathy. Splenomegaly. Small hiatal hernia. Assessment & Plan - Diagnosis (1) Chest pain Qualifiers: Chest pain type: unspecified Qualified Code(s): R07.9 - Chest pain, unspecified Is this a current diagnosis for this admission?: Yes (2) Urinary tract infection Qualifiers: Urinary tract infection type: site unspecified Hematuria presence: with hematuria Qualified Code(s): N39.0 - Urinary tract infection, site not specified Is this a current diagnosis for this admission?: Yes (3) HTN (hypertension) Qualifiers: Hypertension type: essential hypertension Qualified Code(s): I10 - Essential (primary) hypertension (4) CAD (coronary artery disease) Qualifiers: Coronary Disease-Associated Artery/Lesion type: [place] artery [place] vs. transplanted heart: [place] heart Associated angina: without angina Qualified Code(s): I25.10 - Atherosclerotic heart disease of [place] coronary artery without angina pectoris (5) Diabetes mellitus type II, controlled Qualifiers: Diabetes mellitus complication status: with circulatory complication Diabetes mellitus complication detail: with other circulatory complications Diabetes mellitus long term acute care registered nurse insulin use: with [place] [facility] use Qualified Code(s): E11.59 - Type 2 diabetes mellitus with other circulatory complications Is this a current diagnosis for this admission?: Yes (6) History of CVA (cerebrovascular accident) Is this a current diagnosis for this admission?: Yes (7) Sleep disorder breathing Is this a current diagnosis for this admission?: Yes - Notes Notes: Chest pain: Patient claims chest pain resolved and there has been no recurrences. This was evaluated with a nuclear stress test. Nuclear stress test was negative for any significant areas of ischemia or any significant areas of scar. The nuclear stress test is felt to be relatively low risk. Patient informed that occasionally single-vessel disease and balanced ischemia could be missed. Patient advised aggressive risk factor modification and medical therapy. Patient informed that further evaluation may become necessary if symptoms worsens or there is a development of new symptoms indicative of angina or angina equivalent symptom. CAD: Symptomatically stable. History of cerebrovascular accident: Patient may benefit from a cardiac monitoring as an outpatient. Sleep disorder: Patient describes history of snoring, daytime fatigue and sleepiness. Patient encouraged to schedule a sleep study. Patient's daughter in the room confirms history of snoring and possible history indicative of witnessed apnea spell in sleep Hypertension: Reasonably well controlled. Blood pressure goal in this patient is 135/85 or less. This was discussed with the patient. Currently blood pressure under reasonable control. Better medication for this patient are KIKE inhibitor/ARB/beta lashell etc. discussed side effects of uncontrolled hypertension and also severe hypotension. Diabetes: Recommend good control of blood sugar. However should avoid any hypoglycemia. Patient being expertly managed by primary care MEmeka Urinary tract infection: Resolved. Patient to continue or finish antibiotic course. - Time Time with patient: Greater than 35 minutes - Patient was seen multiple times. Total time exceeds 40 minutes. In the morning nuclear stress test procedure, risks benefits, alternatives were discussed. Patient seen during the stress test. Patient also seen after stress test when results were discussed with the patient in detail. Patient's questions were answered. Nuclear stress test results were discussed with the patient. Patient was informed that no definitive evidence of pharmacologic stress-induced ischemia noted. No definite fixed defects were noted. Patient informed that occasionally significant single vessel disease or balanced ischemia could be missed. However based on the current study results, would recommend aggressive risk factor modification and medical therapy. It may also be worthwhile to consider evaluation or empiric management of other causes of chest pain. Should no other cause be found and if persistent in having chest pain, then cardiac catheterization should be considered. Right now, recommendations are for aggressive risk factor modification and medical management. CODE STATUS was discussed, patient remains full code. Surrogate decision-maker unchanged. Multiple medical problems were addressed.More than 50% of the time spent coordinating care, discussing management plans with involved caregivers. Management plans discussed with involved personnels. Medical decision making was of moderate complexity. Medications reviewed and adjusted accordingly: Yes
== END 2016-11-15 15:31 | disposition home or self-care (01) ==
LOC: ER 09:39 → UNDOADMOB 18:46 → EH 18:46 → 5 22:17
PROVIDERS: ADMIT Emergency Medicine; ATTEND Emergency Medicine
DX: R07.9 Chest pain, unspecified (principal); R10.9 Unspecified abdominal pain; D72.829 Elevated white blood cell count, unspecified; N39.0 Urinary tract infection, site not specified; E11.65 Type 2 diabetes mellitus with hyperglycemia; I11.0 Hypertensive heart disease with heart failure; I50.9 Heart failure, unspecified; I25.2 Old myocardial infarction; E66.01 Morbid (severe) obesity due to excess calories; E78.5 Hyperlipidemia, unspecified; Z79.4 Long term (current) use of insulin; Z86.73 Personal history of transient ischemic attack (TIA), and cerebral infarction without residual deficits
CPT/HCPCS: 93005 ×2; 99285; 96361; 96374; 96375; 36415 ×3; 87040; 87086; 82553; 82962 ×5; 82550; 84443; 85025 ×2; 87088; 80048; 80053 ×2; 81001; 84484 ×2; 87186; 83036; 93306; 93017; 71010; 78452; 71275; 76380; 93010 ×2; 97163; G0378 ×6; A9500; A9270 ×51; J2785; J1335 ×2; J2270; J1650 ×4; J2405; J7030; J0280; Q9969; G8978; G8979; J1815; J3490

== ENCOUNTER 2016-12-09 16:50 | Inpatient (IN) | payer MEDICARE, OTHER ==
[2016-12-09] MEDS ORDERED: ONDANSETRON HCL INJ/PF 4 MG/2 ML SDV IV ONE (17:45)
--- NOTE | 2016-12-09 17:54 | ER Document Report ---
ED GI/ <VALENTINO AVILA - Last Filed: 12/10/16 03:25> - General Time seen by provider: 17:53 Mode of Arrival: Medic Information source: Patient TRAVEL OUTSIDE OF THE [place] IN LAST 30 DAYS: No - HPI Patient complains to provider of: Abdominal pain, Vomiting Onset: Yesterday Timing/Duration: Intermittent Quality of pain: Cramping Severity at maximum: Moderate Severity in ED: Moderate Pain Level: 3 Location: LUQ, LLQ, RUQ, RLQ Menstrual period history: Post-menopausal Associated symptoms: Nausea, Urinary urgency, Vomiting, Other Exacerbated by: Other - Vomiting Relieved by: Denies Similar symptoms previously: Yes Recently seen / treated by doctor: Yes <BALDO VILLALPANDO - Last Filed: 12/13/16 06:56> - General Chief Complaint: Nausea/Vomiting Stated Complaint: NAUSEA Notes: 81-year-old female presents to ED via EMS for abdominal pain nausea and vomiting. She states she was seen yesterday and started on Macrodantin for a UTI and has been vomiting ever since. She states she's vomited 3 or 4 times today. She says she has Zofran at home and has been taken it works for about an hour and then she vomits again. She states she has not had anything to eat today except for a couple crackers because of the vomiting. She states she has a history of frequent UTIs and usually has to come into the hospital for IV antibiotics because the by mouth and antibiotics do not work. (BALDO VILLALPANDO) - Related Data Allergies/Adverse Reactions: amoxicillin Allergy (Intermediate, Verified 11/11/16 10:33) Penicillins Allergy (Verified 11/11/16 10:33) Home Medications: Current Home Medications Aspirin [Aspirin 81 mg Chewable Tablet] 81 mg PO DAILY 12/10/16 [History] Citalopram Hydrobromide [Celexa 40 mg Tablet] 40 mg PO DAILY 12/10/16 [History] Clopidogrel Bisulfate [Plavix 75 mg Tablet] 75 mg PO DAILY 12/10/16 [History] Docusate Sodium [Colace 100 mg Capsule] 100 mg PO BID 12/10/16 [History] Gabapentin [Neurontin 300 mg Capsule] 300 mg PO Q12 12/10/16 [History] Insulin Aspart Protam & Aspart [Novolog Mix 70-30 Flexpen Syrn] 60 units SQ BID 12/10/16 [History] Isosorbide Mononitrate [Imdur 30 mg Tablet.er] 30 mg PO DAILY 12/10/16 [History] Losartan Potassium [Cozaar 50 mg Tablet] 50 mg PO DAILY 12/10/16 [History] Metoprolol Tartrate [Lopressor 100 mg Tablet] 100 mg PO Q12 12/10/16 [History] Nitrofurantoin Monohyd/M-Cryst [Macrobid 100 mg Capsule] 100 mg PO Q12 12/10/16 [History] Oxycodone HCl/Acetaminophen [Percocet 5-325 mg Tablet] 1 tab PO Q6HP PRN [History] Rosuvastatin Calcium [Crestor 10 mg Tablet] 10 mg PO DAILY 12/10/16 [History] Sitagliptin Phosphate [Januvia] 100 mg PO DAILY 12/10/16 [History] Trazodone HCl [Desyrel 50 mg Tablet] 50 mg PO HSP PRN 12/10/16 [History] Past Medical History - General Information source: Patient - Social History Smoking Status: Former Smoker Cigarette use (# per day): No Chew tobacco use (# tins/day): No Smoking Education Provided: No Frequency of alcohol use: None Drug Abuse: None Occupation: retired Lives with: Family - Her daughter Family History: CAD, COPD, DM, Hyperlipidemia, Hypertension, Malignancy - Father with lung cancer, Other Patient has suicidal ideation: No Patient has homicidal ideation: No - Past Medical History Cardiac Medical History: Reports: Hx Congestive Heart Failure - reports an acute episode previously, unsure of year, Hx Heart Attack - EKG suggests probable prior infarction, Hx Hypercholesterolemia, Hx Hypertension Pulmonary Medical History: Reports: None EENT Medical History: Reports: None Neurological Medical History: Reports: None Endocrine Medical History: Reports: Hx Diabetes Mellitus Type 2 Renal/ Medical History: Reports: None Malignancy Medical History: Reports: None GI Medical History: Reports: Hx Gastroesophageal Reflux Disease Musculoskeltal Medical History: Reports Hx Arthritis, Reports Hx Musculoskeletal Deformity Skin Medical History: Reports None Psychiatric Medical History: Reports: Hx Anxiety, Hx Depression Traumatic Medical History: Reports: None Infectious Medical History: Reports: None Past Surgical History: Reports: Hx Abdominal Surgery, Hx Appendectomy, Hx Hysterectomy, Hx Tonsillectomy, Other - Cardiac loop recorder, bilateral cataract surgery - Immunizations Hx Diphtheria, Pertussis, Tetanus Vaccination: No Hx Pneumococcal Vaccination: 04/29/13 <BALDO VILLALPANDO - Last Filed: 12/13/16 06:56> Review of Systems - Review of Systems Constitutional: No symptoms reported EENT: No symptoms reported Cardiovascular: No symptoms reported Respiratory: No symptoms reported Gastrointestinal: Abdominal pain, Nausea, Vomiting Genitourinary: Urgency, Other - Foul-smelling urine Female Genitourinary: No symptoms reported Musculoskeletal: No symptoms reported Skin: No symptoms reported Hematologic/Lymphatic: No symptoms reported Neurological/Psychological: No symptoms reported -: Yes All other systems reviewed and negative <BALDO VILLALPANDO - Last Filed: 12/13/16 06:56> Physical Exam - Vital signs Interpretation: Normal - General General appearance: Appears well, Alert - HEENT Head: Normocephalic, Atraumatic Eyes: Normal Pupils: PERRL - Respiratory Respiratory status: No respiratory distress Chest status: Nontender Breath sounds: Normal Chest palpation: Normal - Cardiovascular Rhythm: Regular Heart sounds: Normal auscultation Murmur: No - Abdominal Inspection: Normal Distension: No distension Bowel sounds: Normal Tenderness: Nontender, Tender - Generalized Organomegaly: No organomegaly - Back Back: Normal, Nontender - Extremities General upper extremity: Normal inspection, Nontender, Normal color, Normal ROM , Normal temperature General lower extremity: Normal inspection, Nontender, Normal color, Normal ROM , Normal temperature, Normal weight bearing. No: Cynthia's sign - Neurological Neuro grossly intact: Yes Cognition: Normal Orientation: AAOx4 Ziyad Coma Scale Eye Opening: Spontaneous Ziyad Coma Scale Verbal: Oriented Ziyad Coma Scale Motor: Obeys Commands Ziyad Coma Scale Total: 15 Speech: Normal Motor strength normal: LUE, RUE, LLE, RLE Sensory: Normal - Psychological Associated symptoms: Normal affect, Normal mood - Skin Skin Temperature: Warm Skin Moisture: Dry Skin Color: Normal <BALDO VILLALPANDO - Last Filed: 12/13/16 06:56> - Vital signs Vitals: Temp Pulse Resp BP Pulse Ox 97.9 F 96 18 178/96 H 95 12/09/16 17:05 12/09/16 17:05 12/09/16 17:05 12/09/16 17:05 12/09/16 17:05 Course - Laboratory Result Diagrams: 12/10/16 02:30 12/09/16 19:38 <VALENTINO AVILA - Last Filed: 12/10/16 03:25> - Laboratory Result Diagrams: 12/13/16 04:00 12/13/16 04:00 <BALDO VILLALPANDO - Last Filed: 12/13/16 06:56> - Re-evaluation Re-evalutation: Examination of the abdomen shows generalized tenderness with no guarding in any specific quadrants, questionable umbilical hernia with no evidence of incarceration with soft abdomen in that area particularly. No fever, no hypotension, no tachycardia. Leukocytosis with bandemia and history of ESBL urinary tract infections with sepsis. CT of the abdomen and pelvis with IV and oral contrast performed, shows no acute abnormalities, patient was given Invanz antibiotic coverage. Possibly clouded urine picture because of Macrobid doses, at this time no exact cause unknown of the abnormal CBC (patient only vomited 3 times before the test, has vomited again in the ED). Because of vomiting and uncertain workup EKG and cardiac enzymes were performed and show no acute abnormality. Patient was discussed with Dr. Cancino, patient is performing a PO trial. Patient vomited the PO trial. Discussed with Dr. Schaefer, patient admitted to the hospital. (VALENTINO AVILA) 12/09/16 19:16 Discussed patient with Valentino BAUM and he examined the patient and will be taken over her care. Her chemistry has hemolyzed and labs stated they will come and redraw her. Her CBC was elevated WBC 28.9 hemoglobin hemoglobin 15.7 and hematocrit 49.5 and segs of 83 with 7 bands. UA was negative for your urinary tract infection but positive for sugar and ketones. (BALDO VILLALPANDO) - Vital Signs Vital signs: Temp Pulse Resp BP Pulse Ox 97.8 F 69 20 145/71 H 93 12/13/16 04:00 12/13/16 04:00 12/13/16 04:00 12/13/16 04:00 12/13/16 04:00 - Laboratory Laboratory results interpreted by me: 12/09/16 12/09/16 12/09/16 17:50 17:50 17:50 WBC 28.9 H RBC 7.63 H Hgb 15.7 H Hct 49.5 H MCV 65 L MCH 20.5 L MCHC 31.6 L RDW 21.4 H Seg Neuts % (Manual) 83 H Band Neutrophils % 7 H Lymphocytes % (Manual) 6 L Monocytes % (Manual) 1 L Abs Neuts (Manual) 26.0 H Glucose Total Bilirubin Direct Bilirubin AST Alkaline Phosphatase Creatine Kinase 28 L Urine Glucose (UA) 50 H Urine Ketones TRACE H Urine Blood MODERATE H Urine Urobilinogen 2.0 H 12/09/16 19:38 WBC RBC Hgb Hct MCV MCH MCHC RDW Seg Neuts % (Manual) Band Neutrophils % Lymphocytes % (Manual) Monocytes % (Manual) Abs Neuts (Manual) Glucose 224 H Total Bilirubin 1.6 H Direct Bilirubin 0.6 H AST 48 H Alkaline Phosphatase 192 H Creatine Kinase Urine Glucose (UA) Urine Ketones Urine Blood Urine Urobilinogen Discharge - Discharge Admitting Provider: Hospitalist <VALENTINO AVILA - Last Filed: 12/10/16 03:25> - Discharge Admitting Provider: Hospitalist <BALDO VILLALPANDO - Last Filed: 12/13/16 06:56> - Discharge Clinical Impression: Bandemia Vomiting Qualifiers: Vomiting type: unspecified Vomiting Intractability: intractable Nausea presence : with nausea Qualified Code(s): R11.2 - Nausea with vomiting, unspecified Abdominal pain Qualifiers: Abdominal location: generalized Qualified Code(s): R10.84 - Generalized abdominal pain Disposition: ADMITTED INPATIENT
[2016-12-09 18:30] LABS: APPEARANCE,URINE CLEAR; BILIRUBIN,URINE NEGATIVE (NEGATIVE); GLUCOSE, URINE 50 mg/dL (NEGATIVE); KETONES,URINE TRACE mg/dL (NEGATIVE); LEUKOCYTE ESTERASE,URINE NEGATIVE (NEGATIVE); NITRITE,URINE NEGATIVE (NEGATIVE); PROTEIN,URINE NEGATIVE (NEGATIVE); URINE SPECIFIC GRAVITY 1.012
[2016-12-09 18:41] LABS: HEMATOCRIT 49.5 % (36.0-47.0); HEMOGLOBIN 15.7 g/dL (12.0-15.5); HGB HCT DIFFERENCE -2.4; MEAN CORPUSCULAR HEMOGLOBIN 20.5 pg (27.0-33.4); MEAN CORPUSCULAR HGB CONC 31.6 g/dL (32.0-36.0); MEAN CORPUSCULAR VOLUME 65 fl (80-97); RED CELL DISTRIBUTION WIDTH 21.4 % (11.5-14.0); WHITE BLOOD COUNT 28.9 10^3/uL (4.0-10.5)
[2016-12-09 18:51] LABS: RED BLOOD COUNT 7.63 10^6/uL (3.72-5.28)
[2016-12-09 18:58] LABS: BAND NEUTROPHILS % (MANUAL) 7 % (3-5); BASOPHILS % (MANUAL) 0 % (0-2); EOSINOPHILS % (MANUAL) 0 % (0-6); LYMPHOCYTES % (MANUAL) 6 % (13-45); TOTAL CELLS COUNTED 100
[2016-12-09 19:00] LABS: ANISOCYTOSIS 3+; MICROCYTOSIS 3+; TOXIC VACUOLATION PRESENT
[2016-12-09 19:01] LABS: OVALOCYTES 1+; POLYCHROMASIA SLIGHT
[2016-12-09] MEDS ORDERED: NORMAL SALINE 1000 ML 1,000 ML IV ONE (19:12)
[2016-12-09 20:12] LABS: ALANINE AMINOTRANSFERASE 27 U/L (9-52); ALBUMIN 4.1 g/dL (3.5-5.0); ALKALINE PHOSPHATASE 192 U/L (38-126); ANION GAP 13 (5-19); ASPARTATE AMINO TRANSFERASE 48 U/L (14-36); BILIRUBIN,DIRECT 0.6 mg/dL (0.0-0.4); BILIRUBIN,TOTAL 1.6 mg/dL (0.2-1.3); BLOOD UREA NITROGEN 14 mg/dL (7-20); CARBON DIOXIDE 27 mmol/L (22-30); CHLORIDE 103 mmol/L (98-107); CREATININE RESULT 0.78 mg/dL (0.52-1.25); GLUCOSE 224 mg/dL (75-110); LIPASE 243.3 U/L (23-300); POTASSIUM 4.4 mmol/L (3.6-5.0); SODIUM 142.8 mmol/L (137-145); TOTAL PROTEIN 7.8 g/dL (6.3-8.2)
[2016-12-09] MEDS ORDERED: DIPHENHYDRAMINE HCL 50 MG/ML VIAL IV ONE (21:30)
[2016-12-09] MEDS ORDERED: DIPHENHYDRAMINE HCL 50 MG/ML VIAL ONE (21:33)
[2016-12-10] MEDS ORDERED: NORMAL SALINE 1000 ML 500 ML IV ONE (00:33)
[2016-12-10] MEDS ORDERED: ERTAPENEM SODIUM INJ 1 GM VIAL IV ONE (00:52)
[2016-12-10 01:49] LABS: CREATINE KINASE MB 0.42 ng/mL (<4.55)
[2016-12-10 01:50] LABS: TROPONIN I < 0.012 ng/mL
[2016-12-10] MEDS ORDERED: OXYCODONE-ACETAMINOPHEN 5-325 MG TABLET PO PRN (02:12)
[2016-12-10] MEDS ORDERED: ONDANSETRON HCL INJ/PF 4 MG/2 ML SDV IV PRN (02:13)
[2016-12-10] MEDS ORDERED: IPRATROPIUM/ALBUTEROL 0.5-2.5 MG/3 ML AMPUL NEB PRN (02:13)
[2016-12-10] MEDS ORDERED: NORMAL SALINE 1000 ML 1,000 ML IV SCH (02:15)
[2016-12-10] MEDS ORDERED: HYDRALAZINE HCL INJ/PF 20 MG/1 ML SDV ONE (02:40)
[2016-12-10] MEDS ORDERED: HYDRALAZINE HCL INJ/PF 20 MG/1 ML SDV IV ONE (02:41)
[2016-12-10 03:09] LABS: HEMATOCRIT 50.2 % (36.0-47.0); HEMOGLOBIN 15.7 g/dL (12.0-15.5); HGB HCT DIFFERENCE -3.1; MEAN CORPUSCULAR HEMOGLOBIN 20.6 pg (27.0-33.4); MEAN CORPUSCULAR HGB CONC 31.4 g/dL (32.0-36.0); MEAN CORPUSCULAR VOLUME 66 fl (80-97); RED CELL DISTRIBUTION WIDTH 21.5 % (11.5-14.0); WHITE BLOOD COUNT 28.1 10^3/uL (4.0-10.5)
[2016-12-10 03:12] LABS: BASOPHILS % (MANUAL) 0 % (0-2); EOSINOPHILS % (MANUAL) 1 % (0-6); LYMPHOCYTES % (MANUAL) 8 % (13-45); TOTAL CELLS COUNTED 100
[2016-12-10 03:13] LABS: ANISOCYTOSIS 3+; HYPOCHROMASIA 1+; MICROCYTOSIS 3+; OVALOCYTES SLIGHT; POIKILOCYTOSIS SLIGHT; POLYCHROMASIA SLIGHT; TOXIC GRANULATION SLIGHT
[2016-12-10 03:14] LABS: RED BLOOD COUNT 7.65 10^6/uL (3.72-5.28)
--- NOTE | 2016-12-10 04:46 | PDOC H&P ---
History of Present Illness Admission Date/PCP: 12/10/16 02:13 SOFI GUERRIER MD Patient complains of: Generalized abdominal pain and nausea History of Present Illness: ORACIO PEDROZA is a 81 year old female with a past medical history of diabetes, recurrent urinary tract infection, coronary artery disease, hypertension, CVA and persistent leukocytosis despite extensive workup with hematology. Patient been her usual state of health until approximately 12 hours prior to presentation having generalized abdominal pain constipation for at least 3 days nausea with vomiting of gastric content only no fever chills prompting his seek evaluation emergency room she's found to have leukocytosis of 29,007 bands. She started on empiric antibiotic's per presumptive urinary tract infection as she is recently initiated Macrobid for presumed urinary tract infection. Urine culture pending, chest x-ray, CT abdomen pelvis unremarkable. She denies headache stiff neck rhinorrhea headache sore throat cough or chest pain. Past Medical History Cardiac Medical History: Reports: Congestive Heart Failure - reports an acute episode previously, unsure of year, Myocardial Infarction - EKG suggests probable prior infarction, Hyperlipidema, Hypertension Pulmonary Medical History: Reports: None EENT Medical History: Reports: None Neurological Medical History: Reports: None Endocrine Medical History: Reports: Diabetes Mellitus Type 2 Renal/ Medical History: Reports: None Denies: End Stage Renal Disease Malignancy Medical History: Reports: None GI Medical History: Reports: Gastroesophageal Reflux Disease Musculoskeltal Medical History: Reports: Arthritis Skin Medical History: Reports: None Psychiatric Medical History: Reports: Depression Traumatic Medical History: Reports: None Hematology: Reports: Other - Persistent leukocytosis Infectious Medical History: Reports: None Past Surgical History Past Surgical History: Reports: Appendectomy, Hysterectomy, Tonsillectomy, Other - Cardiac loop recorder, bilateral cataract surgery Social History Information Source: Patient, [facility] Records Lives with: Family - Her daughter Smoking Status: Unknown if Ever Smoked Frequency of Alcohol Use: None Hx Recreational Drug Use: No Drugs: None Hx Prescription Drug Abuse: No - Advance Directive Resuscitation Status: Full Code Family History Family History: CAD, COPD, DM, Hyperlipidemia, Hypertension, Malignancy - Father with lung cancer, Other Parental Family History Reviewed: Yes Children Family History Reviewed: Yes Sibling(s) Family History Reviewed.: Yes Medication/Allergy Home Medications: Aspirin [Aspirin 81 mg Chewable Tablet] 81 mg PO DAILY 11/11/16 Citalopram Hydrobromide [Celexa 40 mg Tablet] 40 mg PO DAILY 11/11/16 Clopidogrel Bisulfate [Plavix 75 mg Tablet] 75 mg PO DAILY 11/11/16 Gabapentin [Neurontin 300 mg Capsule] 300 mg PO Q12 11/11/16 Hum Insulin NPH/Reg Insulin Hm [Insulin 70-30 (NPH/Reg) 100 unit/mL] 60 unit SUBCUT BID 11/11/16 Losartan Potassium [Cozaar 50 mg Tablet] 50 mg PO DAILY 11/11/16 Metoprolol Tartrate [Lopressor 100 mg Tablet] 100 mg PO Q12 11/11/16 Oxycodone HCl/Acetaminophen [Percocet 5-325 mg Tablet] 1 tab PO Q6HP PRN Sitagliptin Phosphate [Januvia 50 mg Tablet] 100 mg PO DAILY 11/11/16 Trazodone HCl [Desyrel 50 mg Tablet] 50 mg PO HSP PRN 11/11/16 Isosorbide Mononitrate [Imdur 30 mg Tablet.er] 30 mg PO DAILY #30 tab.er.24h Rosuvastatin Calcium [Crestor 10 mg Tablet] 10 mg PO DAILY #30 tablet 11/15/16 Docusate Sodium [Colace 100 mg Capsule] 100 mg PO BID 12/09/16 Nitrofurantoin Macrocrystal [Nitrofurantoin] 100 mg PO Q12 12/09/16 Allergies/Adverse Reactions: amoxicillin Allergy (Intermediate, Verified 11/11/16 10:33) Penicillins Allergy (Verified 11/11/16 10:33) Review of Systems Constitutional: ABSENT: chills, fever(s), headache(s), weight gain, weight loss Eyes: ABSENT: visual disturbances Ears: ABSENT: hearing changes Cardiovascular: ABSENT: chest pain, dyspnea on exertion, edema, orthropnea, palpitations Respiratory: ABSENT: cough, hemoptysis Gastrointestinal: ABSENT: abdominal pain, constipation, diarrhea, hematemesis, hematochezia, nausea, vomiting Genitourinary: ABSENT: dysuria, hematuria Musculoskeletal: ABSENT: joint swelling Integumentary: ABSENT: rash, wounds Neurological: ABSENT: abnormal gait, abnormal speech, confusion, dizziness, focal weakness, syncope Psychiatric: ABSENT: anxiety, depression, homidical ideation, suicidal ideation Endocrine: ABSENT: cold intolerance, heat intolerance, polydipsia, polyuria Hematologic/Lymphatic: ABSENT: easy bleeding, easy bruising Physical Exam Vital Signs: Temp Pulse Resp BP Pulse Ox 97.9 F 88 18 155/85 H 94 12/09/16 20:21 12/09/16 20:21 12/10/16 02:51 12/10/16 02:51 12/10/16 02:51 Intake & Output 12/08/16 12/09/16 12/10/16 11:59 11:59 11:59 Weight 95.254 kg General appearance: PRESENT: no acute distress, well-developed, well-nourished Head exam: PRESENT: atraumatic, normocephalic Eye exam: PRESENT: conjunctiva pink, EOMI, PERRLA. ABSENT: scleral icterus Ear exam: PRESENT: normal external ear exam Mouth exam: PRESENT: moist, tongue midline Neck exam: ABSENT: carotid bruit, JVD, lymphadenopathy, thyromegaly Respiratory exam: PRESENT: clear to auscultation carmen. ABSENT: rales, rhonchi, wheezes Cardiovascular exam: PRESENT: RRR. ABSENT: diastolic murmur, rubs, systolic murmur Pulses: PRESENT: normal dorsalis pedis pul Vascular exam: PRESENT: normal capillary refill GI/Abdominal exam: PRESENT: hypoactive bowel sounds, normal bowel sounds, soft, tenderness. ABSENT: distended, firm, guarding, mass, organolmegaly, rebound Rectal exam: PRESENT: deferred Extremities exam: PRESENT: full ROM. ABSENT: calf tenderness, clubbing, pedal edema Neurological exam: PRESENT: alert, awake, oriented to person, oriented to place , oriented to time, oriented to situation, CN II-XII grossly intact. ABSENT: motor sensory deficit Psychiatric exam: PRESENT: appropriate affect, normal mood. ABSENT: homicidal ideation, suicidal ideation Skin exam: PRESENT: dry, intact, warm. ABSENT: cyanosis, rash Results Laboratory Results: 12/10/16 02:30 12/10/16 02:30 WBC 28.1 H RBC 7.65 H Hgb 15.7 H Hct 50.2 H MCV 66 L MCH 20.6 L MCHC 31.4 L RDW 21.5 H Plt Count 282 Seg Neutrophils % Not Reportable Lymphocytes % Not Reportable Monocytes % Not Reportable Eosinophils % Not Reportable Basophils % Not Reportable Absolute Neutrophils Not Reportable Absolute Lymphocytes Not Reportable Absolute Monocytes Not Reportable Absolute Eosinophils Not Reportable Absolute Basophils Not Reportable Impressions: Abdomen/Pelvis CT 12/09/16 00:00 IMPRESSION: NO SIGNIFICANT OR ACUTE FINDING IN THE ABDOMEN OR PELVIS ON CT SCAN WITH IV CONTRAST. Assessment & Plan - Diagnosis (1) Abdominal pain Qualifiers: Abdominal location: generalized Qualified Code(s): R10.84 - Generalized abdominal pain Is this a current diagnosis for this admission?: YesPlan: Patient is clearly constipated by CT and will receive lactulose and enema as well as symptomatic management consideration of additional investigation if pain and nausea not resolved (2) Bandemia Is this a current diagnosis for this admission?: YesPlan: Patient has had persistent leukocytosis from June 2015 however without bandemia I'm unclear if this cause. Urinalysis 9 days ago reveal Escherichia coli most sensitive to ceftaz and will be initiated empirically pending repeat culture results however I am also suspicious of an another cause will consider hematology consult I will obtain ESR (3) Morbid obesity Qualifiers: Obesity type: unspecified obesity type Qualified Code(s): E66.01 - Morbid (severe) obesity due to excess calories Is this a current diagnosis for this admission?: YesPlan: Avoid sedation consider Sedapap (4) Diabetes Qualifiers: Diabetes mellitus type: type 1 Is this a current diagnosis for this admission?: YesPlan: Outpatient regiment sliding scale Humalog - Time Time Spent: 50 to 70 Minutes - Inpatient Certification Medical Necessity: Need Close Monitoring Due to Risk of Patient Decompensation
[2016-12-10] MEDS ORDERED: CEFTAZIDIME INJ 1 GM VIAL ONE (05:40)
[2016-12-10] MEDS ORDERED: LACTULOSE SYRUP 20 GM/30 ML UDCUP PO ONE (05:54)
[2016-12-10] MEDS: HEPARIN SOD (PORCINE) 5,000 UNIT/ML 1 ML SYRINGE SUBCUT SCH ×3 (06:13→21:16)
[2016-12-10] MEDS: ACETAMINOPHEN 325 MG TABLET PO PRN ×2 (06:17→22:25)
[2016-12-10] MEDS: CEFTAZIDIME PENTAHYDRATE IV SCH ×3 (06:30→21:16)
[2016-12-10] MEDS: WATER IV SCH ×3 (06:30→21:16)
[2016-12-10] MEDS: DEXTROSE 5% IV SCH ×3 (06:30→21:16)
--- NOTE | 2016-12-10 07:41 | EKG REPORT ---
SEVERITY:- ABNORMAL ECG - SINUS RHYTHM BORDERLINE LEFT AXIS DEVIATION CONSIDER ANTEROSEPTAL INFARCT BORDERLINE PROLONGED QT INTERVAL : Confirmed by: Adam Bah MD 10-Dec-2016 07:40:03
[2016-12-10] MEDS: KETOROLAC TROMETHAMINE INJ/PF 30 MG/1 ML SDV IV PRN (08:01)
[2016-12-10] MEDS: METOPROLOL TARTRATE 100 MG TABLET PO SCH ×2 (09:10→21:16)
[2016-12-10] MEDS: CITALOPRAM HYDROBROMIDE 20 MG TABLET PO SCH (09:10)
[2016-12-10] MEDS: CLOPIDOGREL BISULFATE 75 MG TABLET PO SCH (09:10)
[2016-12-10] MEDS: ASPIRIN 81 MG TABLET, CHEWABLE PO SCH (09:10)
[2016-12-10] MEDS: DOCUSATE SODIUM 100 MG CAPSULE PO SCH ×2 (09:10→17:00)
[2016-12-10] MEDS: GABAPENTIN 300 MG CAPSULE PO SCH ×2 (09:11→21:16)
[2016-12-10] MEDS: HUM INSULIN NPH/REG INSULIN HM 100 UNIT/1 ML 3 ML SUBCUT SCH ×2 (09:11→17:00)
[2016-12-10] MEDS: ISOSORBIDE MONONITRATE 30 MG TAB.ER.24H PO SCH (09:11)
[2016-12-10] MEDS ORDERED: DEXTROSE 50%-WATER 25 GM/50 ML DISP.SYRIN IV PRN ×2 (09:16)
[2016-12-10] MEDS ORDERED: GLUCAGON,HUMAN RECOMB 1 MG INJ IM PRN (09:16)
[2016-12-10] MEDS ORDERED: DEXTROSE 40% GEL 15 GM TUBE PO PRN ×2 (09:16)
[2016-12-10] MEDS: LINEZOLID 300 ML IV SCH ×2 (10:56→22:26)
[2016-12-10] MEDS: INSULIN LISPRO 100 UNIT/ML 3 ML VIAL SUBCUT PRN (11:36)
--- NOTE | 2016-12-10 13:33 | PDOC PROGRESS REPORT ---
Subjective Progress Note for:: 12/10/16 Subjective:: Patient complains of some nausea. Physical Exam Vital Signs: Temp Pulse Resp BP Pulse Ox 98.9 F 80 18 119/62 95 12/10/16 11:53 12/10/16 11:53 12/10/16 11:53 12/10/16 11:53 12/10/16 11:53 Intake & Output 12/09/16 12/10/16 12/11/16 06:59 06:59 06:59 Intake Total 500 Balance 500 Weight 98.3 kg General appearance: PRESENT: no acute distress Eye exam: PRESENT: conjunctiva pink. ABSENT: scleral icterus Mouth exam: PRESENT: moist, tongue midline Neck exam: ABSENT: JVD Respiratory exam: PRESENT: clear to auscultation carmen. ABSENT: rales, rhonchi, wheezes Cardiovascular exam: PRESENT: RRR. ABSENT: diastolic murmur, rubs, systolic murmur GI/Abdominal exam: PRESENT: normal bowel sounds, soft, tenderness - Mild generalized tenderness. ABSENT: distended, guarding, mass, organolmegaly, rebound Extremities exam: ABSENT: calf tenderness, clubbing, pedal edema Neurological exam: PRESENT: alert, awake, oriented to person, oriented to place , oriented to time, oriented to situation, CN II-XII grossly intact. ABSENT: motor sensory deficit Psychiatric exam: PRESENT: appropriate affect Skin exam: PRESENT: dry, intact, warm. ABSENT: cyanosis, rash Results Laboratory Results: 12/10/16 02:30 12/10/16 02:30 WBC 28.1 H RBC 7.65 H Hgb 15.7 H Hct 50.2 H MCV 66 L MCH 20.6 L MCHC 31.4 L RDW 21.5 H Plt Count 282 Seg Neutrophils % Not Reportable Lymphocytes % Not Reportable Monocytes % Not Reportable Eosinophils % Not Reportable Basophils % Not Reportable Absolute Neutrophils Not Reportable Absolute Lymphocytes Not Reportable Absolute Monocytes Not Reportable Absolute Eosinophils Not Reportable Absolute Basophils Not Reportable Impressions: Abdomen/Pelvis CT 12/09/16 00:00 IMPRESSION: NO SIGNIFICANT OR ACUTE FINDING IN THE ABDOMEN OR PELVIS ON CT SCAN WITH IV CONTRAST. Assessment & Plan - Diagnosis (1) Abdominal pain Qualifiers: Abdominal location: generalized Qualified Code(s): R10.84 - Generalized abdominal pain Is this a current diagnosis for this admission?: YesPlan: This may be related to her constipation however she was just started on treatment for urinary tract infection several days ago and could be related to that. She is having difficulty tolerating by mouth this morning. (2) UTI (urinary tract infection) Qualifiers: Urinary tract infection type: site unspecified Hematuria presence: without hematuria Qualified Code(s): N39.0 - Urinary tract infection, site not specified Is this a current diagnosis for this admission?: YesPlan: Patient had a culture several days ago that was growing out Escherichia coli as well as enterococcus. Patient was started on ceftaz for the Escherichia coli. Will add on Zyvox because of her enterococcus. She is having difficulty tolerating her by mouth antibiotics at this time. (3) Bandemia Is this a current diagnosis for this admission?: YesPlan: Most likely secondary to her underlying urinary tract infection. (4) HTN (hypertension) Qualifiers: Hypertension type: essential hypertension Qualified Code(s): I10 - Essential (primary) hypertension Is this a current diagnosis for this admission?: YesPlan: Blood pressure is under good control. (5) Morbid obesity Qualifiers: Obesity type: unspecified obesity type Qualified Code(s): E66.01 - Morbid (severe) obesity due to excess calories Is this a current diagnosis for this admission?: Yes (6) Anxiety and depression Is this a current diagnosis for this admission?: Yes (7) CAD (coronary artery disease) Qualifiers: Coronary Disease-Associated Artery/Lesion type: [place] artery [place] vs. transplanted heart: [place] heart Associated angina: without angina Qualified Code(s): I25.10 - Atherosclerotic heart disease of [place] coronary artery without angina pectoris Is this a current diagnosis for this admission?: YesPlan: Denies any chest pain. (8) Diabetes Qualifiers: Diabetes mellitus type: type 1 Is this a current diagnosis for this admission?: Yes (9) GERD (gastroesophageal reflux disease) Qualifiers: Esophagitis presence: without esophagitis Qualified Code(s): K21.9 - Gastro-esophageal reflux disease without esophagitis Is this a current diagnosis for this admission?: Yes (10) Hyperlipidemia Qualifiers: Hyperlipidemia type: unspecified Qualified Code(s): E78.5 - Hyperlipidemia, unspecified - Time Time Spent with patient: 25-34 minutes - Inpatient Certification Medical Necessity: Need for IV Antibiotics
[2016-12-11 05:56] LABS: ANION GAP 11 (5-19); BLOOD UREA NITROGEN 12 mg/dL (7-20); CALCIUM 9.9 mg/dL (8.4-10.2); CARBON DIOXIDE 26 mmol/L (22-30); CHLORIDE 105 mmol/L (98-107); CREATININE RESULT 0.83 mg/dL (0.52-1.25); GLUCOSE 82 mg/dL (75-110); POTASSIUM 4.3 mmol/L (3.6-5.0); SODIUM 142.3 mmol/L (137-145)
[2016-12-11 06:06] LABS: HEMOGLOBIN 14.4 g/dL (12.0-15.5); HGB HCT DIFFERENCE -3.8; MEAN CORPUSCULAR HGB CONC 30.7 g/dL (32.0-36.0); MEAN CORPUSCULAR VOLUME 65 fl (80-97); WHITE BLOOD COUNT 27.2 10^3/uL (4.0-10.5)
[2016-12-11 06:07] LABS: RED BLOOD COUNT 7.21 10^6/uL (3.72-5.28)
[2016-12-11 06:14] LABS: BAND NEUTROPHILS % (MANUAL) 4 % (3-5); BASOPHILS % (MANUAL) 0 % (0-2); EOSINOPHILS % (MANUAL) 0 % (0-6); LYMPHOCYTES % (MANUAL) 1 % (13-45); TOTAL CELLS COUNTED 100
[2016-12-11 06:19] LABS: ANISOCYTOSIS 3+; HYPOCHROMASIA 2+; MICROCYTOSIS 3+; OVALOCYTES 1+; POIKILOCYTOSIS 2+; POLYCHROMASIA SLIGHT; TEAR DROP CELLS 1+; TOXIC VACUOLATION PRESENT
[2016-12-11] MEDS: HEPARIN SOD (PORCINE) 5,000 UNIT/ML 1 ML SYRINGE SUBCUT SCH ×3 (06:54→22:23)
[2016-12-11] MEDS: CEFTAZIDIME PENTAHYDRATE IV SCH ×3 (06:54→22:25)
[2016-12-11] MEDS: WATER IV SCH ×3 (06:54→22:25)
[2016-12-11] MEDS: DEXTROSE 5% IV SCH ×3 (06:54→22:25)
[2016-12-11] MEDS: DOCUSATE SODIUM 100 MG CAPSULE PO SCH ×2 (09:02→18:00)
[2016-12-11] MEDS: GABAPENTIN 300 MG CAPSULE PO SCH ×2 (09:02→22:24)
[2016-12-11] MEDS: CITALOPRAM HYDROBROMIDE 20 MG TABLET PO SCH (09:02)
[2016-12-11] MEDS: ASPIRIN 81 MG TABLET, CHEWABLE PO SCH (09:02)
[2016-12-11] MEDS: CLOPIDOGREL BISULFATE 75 MG TABLET PO SCH (09:03)
[2016-12-11] MEDS: ISOSORBIDE MONONITRATE 30 MG TAB.ER.24H PO SCH (09:03)
[2016-12-11] MEDS: ACETAMINOPHEN 325 MG TABLET PO PRN (09:04)
[2016-12-11] MEDS: METOPROLOL TARTRATE 100 MG TABLET PO SCH ×2 (09:04→22:24)
[2016-12-11] MEDS: HUM INSULIN NPH/REG INSULIN HM 100 UNIT/1 ML 3 ML SUBCUT SCH ×2 (09:05→17:59)
[2016-12-11] MEDS: ONDANSETRON HCL INJ/PF 4 MG/2 ML SDV IV PRN ×2 (09:13→17:54)
--- NOTE | 2016-12-11 11:05 | PDOC PROGRESS REPORT ---
Subjective Progress Note for:: 12/11/16 Subjective:: Patient complains of some nausea. Physical Exam Vital Signs: Temp Pulse Resp BP Pulse Ox 97.9 F 79 16 158/67 H 94 12/11/16 08:19 12/11/16 10:15 12/11/16 10:15 12/11/16 08:19 12/11/16 10:15 Intake & Output 12/10/16 12/11/16 12/12/16 06:59 06:59 06:59 Intake Total 500 1745 Balance 500 1745 Weight 98.3 kg 98.3 kg General appearance: PRESENT: no acute distress Eye exam: PRESENT: conjunctiva pink. ABSENT: scleral icterus Mouth exam: PRESENT: moist, tongue midline Neck exam: ABSENT: JVD Respiratory exam: PRESENT: clear to auscultation carmen. ABSENT: rales, rhonchi, wheezes Cardiovascular exam: PRESENT: RRR. ABSENT: diastolic murmur, rubs, systolic murmur GI/Abdominal exam: PRESENT: normal bowel sounds, soft, tenderness - Mild diffuse tenderness. ABSENT: distended, guarding, mass, organolmegaly, rebound Extremities exam: ABSENT: calf tenderness, clubbing, pedal edema Neurological exam: PRESENT: alert, awake, oriented to person, oriented to place , oriented to time, oriented to situation, CN II-XII grossly intact. ABSENT: motor sensory deficit Psychiatric exam: PRESENT: appropriate affect Skin exam: PRESENT: dry, intact, warm. ABSENT: cyanosis, rash Results Laboratory Results: 12/11/16 04:37 12/11/16 04:37 12/11/16 12/11/16 04:37 04:37 WBC 27.2 H RBC 7.21 H Hgb 14.4 Hct 47.0 MCV 65 L MCH 20.0 L MCHC 30.7 L RDW 22.0 H Plt Count 264 Seg Neutrophils % Not Reportable Lymphocytes % Not Reportable Monocytes % Not Reportable Eosinophils % Not Reportable Basophils % Not Reportable Absolute Neutrophils Not Reportable Absolute Lymphocytes Not Reportable Absolute Monocytes Not Reportable Absolute Eosinophils Not Reportable Absolute Basophils Not Reportable Sodium 142.3 Potassium 4.3 Chloride 105 Carbon Dioxide 26 Anion Gap 11 BUN 12 Creatinine 0.83 Est GFR ( Amer) > 60 Est GFR (Non-Af Amer) > 60 Glucose 82 Calcium 9.9 Impressions: Abdomen/Pelvis CT 04/13/17 00:00 IMPRESSION: NO SIGNIFICANT OR ACUTE FINDING IN THE ABDOMEN OR PELVIS ON CT SCAN WITH IV CONTRAST. Assessment & Plan - Diagnosis (1) Abdominal pain Qualifiers: Abdominal location: generalized Qualified Code(s): R10.84 - Generalized abdominal pain Is this a current diagnosis for this admission?: YesPlan: This may be related to her constipation however she was just started on treatment for urinary tract infection several days ago and could be related to that. She is tolerating her diet now. If she continues to improve we can hopefully discharge home tomorrow. (2) UTI (urinary tract infection) Qualifiers: Urinary tract infection type: site unspecified Hematuria presence: without hematuria Qualified Code(s): N39.0 - Urinary tract infection, site not specified Is this a current diagnosis for this admission?: YesPlan: Patient had a culture several days ago that was growing out Escherichia coli as well as enterococcus. Patient was started on ceftaz for the Escherichia coli. Will add on Zyvox because of her enterococcus. She is having difficulty tolerating her by mouth antibiotics at this time. (3) Bandemia Is this a current diagnosis for this admission?: YesPlan: Most likely secondary to her underlying urinary tract infection. (4) HTN (hypertension) Qualifiers: Hypertension type: essential hypertension Qualified Code(s): I10 - Essential (primary) hypertension Is this a current diagnosis for this admission?: YesPlan: Blood pressure has been elevated. We'll give when necessary hydralazine. (5) Morbid obesity Qualifiers: Obesity type: unspecified obesity type Qualified Code(s): E66.01 - Morbid (severe) obesity due to excess calories Is this a current diagnosis for this admission?: Yes (6) Anxiety and depression Is this a current diagnosis for this admission?: Yes (7) CAD (coronary artery disease) Qualifiers: Coronary Disease-Associated Artery/Lesion type: [place] artery [place] vs. transplanted heart: [place] heart Associated angina: without angina Qualified Code(s): I25.10 - Atherosclerotic heart disease of [place] coronary artery without angina pectoris Is this a current diagnosis for this admission?: YesPlan: Denies any chest pain. (8) Diabetes Qualifiers: Diabetes mellitus type: type 1 Is this a current diagnosis for this admission?: YesPlan: We'll give 70/30 insulin as well as sliding scale insulin. (9) GERD (gastroesophageal reflux disease) Qualifiers: Esophagitis presence: without esophagitis Qualified Code(s): K21.9 - Gastro-esophageal reflux disease without esophagitis Is this a current diagnosis for this admission?: Yes (10) Hyperlipidemia Qualifiers: Hyperlipidemia type: unspecified Qualified Code(s): E78.5 - Hyperlipidemia, unspecified - Time Time Spent with patient: 25-34 minutes - Inpatient Certification Medical Necessity: Need Close Monitoring Due to Risk of Patient Decompensation, Need For IV Fluids
[2016-12-11] MEDS: LINEZOLID 300 ML IV SCH ×2 (12:08→23:29)
[2016-12-11] MEDS ORDERED: DIPHENHYDRAMINE HCL 25 MG CAPSULE ONE (18:05)
[2016-12-11] MEDS ORDERED: DIPHENHYDRAMINE HCL 25 MG CAPSULE PO PRN (18:37)
[2016-12-11] MEDS: HYDRALAZINE HCL INJ/PF 20 MG/1 ML SDV IV PRN (22:26)
[2016-12-12] MEDS: CEFTAZIDIME PENTAHYDRATE IV SCH ×3 (05:48→21:23)
[2016-12-12] MEDS: WATER IV SCH ×3 (05:48→21:23)
[2016-12-12] MEDS: DEXTROSE 5% IV SCH ×3 (05:48→21:23)
[2016-12-12] MEDS: HEPARIN SOD (PORCINE) 5,000 UNIT/ML 1 ML SYRINGE SUBCUT SCH ×3 (05:48→21:23)
[2016-12-12 06:02] LABS: HEMATOCRIT 46.4 % (36.0-47.0); HEMOGLOBIN 14.5 g/dL (12.0-15.5); HGB HCT DIFFERENCE -2.9; MEAN CORPUSCULAR HEMOGLOBIN 20.4 pg (27.0-33.4); MEAN CORPUSCULAR HGB CONC 31.3 g/dL (32.0-36.0); MEAN CORPUSCULAR VOLUME 65 fl (80-97); RED CELL DISTRIBUTION WIDTH 22.1 % (11.5-14.0); WHITE BLOOD COUNT 25.6 10^3/uL (4.0-10.5)
[2016-12-12 06:14] LABS: ANION GAP 12 (5-19); BLOOD UREA NITROGEN 14 mg/dL (7-20); CALCIUM 9.3 mg/dL (8.4-10.2); CARBON DIOXIDE 25 mmol/L (22-30); CHLORIDE 106 mmol/L (98-107); CREATININE RESULT 0.88 mg/dL (0.52-1.25); GLUCOSE 182 mg/dL (75-110); POTASSIUM 4.6 mmol/L (3.6-5.0); SODIUM 142.7 mmol/L (137-145)
[2016-12-12 06:15] LABS: RED BLOOD COUNT 7.13 10^6/uL (3.72-5.28)
[2016-12-12 06:17] LABS: BAND NEUTROPHILS % (MANUAL) 4 % (3-5); BASOPHILS % (MANUAL) 0 % (0-2); EOSINOPHILS % (MANUAL) 0 % (0-6); LYMPHOCYTES % (MANUAL) 5 % (13-45); TOTAL CELLS COUNTED 100
[2016-12-12 06:21] LABS: ANISOCYTOSIS 3+; HYPOCHROMASIA 2+; MICROCYTOSIS 3+; OVALOCYTES SLIGHT; POIKILOCYTOSIS 1+; TEAR DROP CELLS SLIGHT
[2016-12-12] MEDS: INSULIN LISPRO 100 UNIT/ML 3 ML VIAL SUBCUT PRN (06:50)
[2016-12-12] MEDS: ACETAMINOPHEN 325 MG TABLET PO PRN (06:50)
[2016-12-12] MEDS: KETOROLAC TROMETHAMINE INJ/PF 30 MG/1 ML SDV IV PRN (08:16)
[2016-12-12] MEDS: ONDANSETRON HCL INJ/PF 4 MG/2 ML SDV IV PRN ×2 (08:17→15:50)
[2016-12-12] MEDS: HUM INSULIN NPH/REG INSULIN HM 100 UNIT/1 ML 3 ML SUBCUT SCH (09:33)
[2016-12-12] MEDS: METOPROLOL TARTRATE 100 MG TABLET PO SCH ×2 (09:35→21:23)
[2016-12-12] MEDS: CLOPIDOGREL BISULFATE 75 MG TABLET PO SCH (09:35)
[2016-12-12] MEDS: DOCUSATE SODIUM 100 MG CAPSULE PO SCH ×2 (09:35→17:51)
[2016-12-12] MEDS: GABAPENTIN 300 MG CAPSULE PO SCH ×2 (09:36→21:23)
[2016-12-12] MEDS: CITALOPRAM HYDROBROMIDE 20 MG TABLET PO SCH (09:36)
[2016-12-12] MEDS: ASPIRIN 81 MG TABLET, CHEWABLE PO SCH (09:36)
[2016-12-12] MEDS: ISOSORBIDE MONONITRATE 30 MG TAB.ER.24H PO SCH (09:37)
[2016-12-12] MEDS: LINEZOLID 300 ML IV SCH (10:40)
--- NOTE | 2016-12-12 11:03 | PDOC PROGRESS REPORT ---
Subjective Progress Note for:: 12/12/16 Subjective:: Patient complains of some nausea. Physical Exam Vital Signs: Temp Pulse Resp BP Pulse Ox 97.9 F 75 16 174/72 H 95 12/12/16 07:13 12/12/16 08:30 12/12/16 08:30 12/12/16 07:13 12/12/16 08:30 Intake & Output 12/11/16 12/12/16 12/13/16 06:59 06:59 06:59 Intake Total 1745 5133 310 Output Total 750 Balance 1745 4383 310 Weight 98.3 kg 99.7 kg General appearance: PRESENT: no acute distress Eye exam: PRESENT: conjunctiva pink. ABSENT: scleral icterus Mouth exam: PRESENT: moist, tongue midline Neck exam: ABSENT: JVD Respiratory exam: PRESENT: clear to auscultation carmen. ABSENT: rales, rhonchi, wheezes Cardiovascular exam: PRESENT: RRR. ABSENT: diastolic murmur, rubs, systolic murmur GI/Abdominal exam: PRESENT: normal bowel sounds, soft, tenderness - Mild diffuse tenderness.. ABSENT: distended, guarding, mass, organolmegaly, rebound Extremities exam: ABSENT: calf tenderness, clubbing, pedal edema Neurological exam: PRESENT: alert, awake, oriented to person, oriented to place , oriented to time, oriented to situation, CN II-XII grossly intact. ABSENT: motor sensory deficit Psychiatric exam: PRESENT: appropriate affect Skin exam: PRESENT: dry, intact, warm. ABSENT: cyanosis, rash Results Laboratory Results: 12/12/16 05:34 12/12/16 05:34 12/12/16 12/12/16 05:34 05:34 WBC 25.6 H RBC 7.13 H Hgb 14.5 Hct 46.4 MCV 65 L MCH 20.4 L MCHC 31.3 L RDW 22.1 H Plt Count 271 Seg Neutrophils % Not Reportable Lymphocytes % Not Reportable Monocytes % Not Reportable Eosinophils % Not Reportable Basophils % Not Reportable Absolute Neutrophils Not Reportable Absolute Lymphocytes Not Reportable Absolute Monocytes Not Reportable Absolute Eosinophils Not Reportable Absolute Basophils Not Reportable Sodium 142.7 Potassium 4.6 Chloride 106 Carbon Dioxide 25 Anion Gap 12 BUN 14 Creatinine 0.88 Est GFR ( Amer) > 60 Est GFR (Non-Af Amer) > 60 Glucose 182 H Calcium 9.3 Impressions: Abdomen/Pelvis CT 12/09/16 00:00 IMPRESSION: NO SIGNIFICANT OR ACUTE FINDING IN THE ABDOMEN OR PELVIS ON CT SCAN WITH IV CONTRAST. Assessment & Plan - Diagnosis (1) Abdominal pain Qualifiers: Abdominal location: generalized Qualified Code(s): R10.84 - Generalized abdominal pain Is this a current diagnosis for this admission?: YesPlan: Patient continues to have some pain and some nausea. Will change back to a clear liquid diet and consult GI tomorrow. (2) UTI (urinary tract infection) Qualifiers: Urinary tract infection type: site unspecified Hematuria presence: without hematuria Qualified Code(s): N39.0 - Urinary tract infection, site not specified Is this a current diagnosis for this admission?: YesPlan: Patient had a culture several days ago that was growing out Escherichia coli as well as enterococcus. Patient was started on ceftaz for the Escherichia coli. and Zyvox because of her enterococcus. She is having difficulty tolerating her by mouth antibiotics at this time. (3) Bandemia Is this a current diagnosis for this admission?: YesPlan: Most likely secondary to her underlying urinary tract infection. (4) HTN (hypertension) Qualifiers: Hypertension type: essential hypertension Qualified Code(s): I10 - Essential (primary) hypertension Is this a current diagnosis for this admission?: YesPlan: Blood pressure has been elevated. We'll give when necessary hydralazine. (5) Morbid obesity Qualifiers: Obesity type: unspecified obesity type Qualified Code(s): E66.01 - Morbid (severe) obesity due to excess calories Is this a current diagnosis for this admission?: Yes (6) Anxiety and depression Is this a current diagnosis for this admission?: Yes (7) CAD (coronary artery disease) Qualifiers: Coronary Disease-Associated Artery/Lesion type: [place] artery [place] vs. transplanted heart: [place] heart Associated angina: without angina Qualified Code(s): I25.10 - Atherosclerotic heart disease of [place] coronary artery without angina pectoris Is this a current diagnosis for this admission?: YesPlan: Denies any chest pain. (8) Diabetes Qualifiers: Diabetes mellitus type: type 1 Is this a current diagnosis for this admission?: YesPlan: We'll give 70/30 insulin as well as sliding scale insulin. (9) GERD (gastroesophageal reflux disease) Qualifiers: Esophagitis presence: without esophagitis Qualified Code(s): K21.9 - Gastro-esophageal reflux disease without esophagitis Is this a current diagnosis for this admission?: Yes (10) Hyperlipidemia Qualifiers: Hyperlipidemia type: unspecified Qualified Code(s): E78.5 - Hyperlipidemia, unspecified - Time Time Spent with patient: 25-34 minutes - Inpatient Certification Medical Necessity: Need For IV Fluids, Need for IV Antibiotics - Plan Summary Plan Summary: Will ask GI to evaluate in the morning.
[2016-12-12] MEDS: HYDRALAZINE HCL INJ/PF 20 MG/1 ML SDV IV PRN (16:38)
[2016-12-12] MEDS ORDERED: HUM INSULIN NPH/REG INSULIN HM 100 UNIT/1 ML 3 ML SUBCUT ONE (18:00)
[2016-12-13] MEDS: LINEZOLID 300 ML IV SCH ×3 (00:31→22:44)
[2016-12-13 05:01] LABS: ALANINE AMINOTRANSFERASE 22 U/L (9-52); ALBUMIN 3.5 g/dL (3.5-5.0); ALKALINE PHOSPHATASE 163 U/L (38-126); ANION GAP 11 (5-19); ASPARTATE AMINO TRANSFERASE 20 U/L (14-36); BILIRUBIN,DIRECT 0.3 mg/dL (0.0-0.4); BILIRUBIN,TOTAL 1.1 mg/dL (0.2-1.3); BLOOD UREA NITROGEN 13 mg/dL (7-20); CALCIUM 9.7 mg/dL (8.4-10.2); CARBON DIOXIDE 27 mmol/L (22-30); CHLORIDE 103 mmol/L (98-107); CREATININE RESULT 0.77 mg/dL (0.52-1.25); GLUCOSE 114 mg/dL (75-110); POTASSIUM 4.4 mmol/L (3.6-5.0); SODIUM 141.4 mmol/L (137-145); TOTAL PROTEIN 6.8 g/dL (6.3-8.2)
[2016-12-13] MEDS: CEFTAZIDIME PENTAHYDRATE IV SCH ×3 (05:19→21:44)
[2016-12-13] MEDS: HEPARIN SOD (PORCINE) 5,000 UNIT/ML 1 ML SYRINGE SUBCUT SCH ×3 (05:19→21:44)
[2016-12-13] MEDS: DEXTROSE 5% IV SCH ×3 (05:19→21:44)
[2016-12-13] MEDS: WATER IV SCH ×3 (05:19→21:44)
[2016-12-13 05:55] LABS: HEMATOCRIT 46.7 % (36.0-47.0); HEMOGLOBIN 14.5 g/dL (12.0-15.5); HGB HCT DIFFERENCE -3.2; MEAN CORPUSCULAR HEMOGLOBIN 20.5 pg (27.0-33.4); MEAN CORPUSCULAR HGB CONC 31.2 g/dL (32.0-36.0); MEAN CORPUSCULAR VOLUME 66 fl (80-97); RED CELL DISTRIBUTION WIDTH 22.5 % (11.5-14.0); WHITE BLOOD COUNT 25.8 10^3/uL (4.0-10.5)
[2016-12-13 06:07] LABS: BAND NEUTROPHILS % (MANUAL) 3 % (3-5); BASOPHILS % (MANUAL) 0 % (0-2); EOSINOPHILS % (MANUAL) 2 % (0-6); LYMPHOCYTES % (MANUAL) 6 % (13-45); TOTAL CELLS COUNTED 100
[2016-12-13 06:10] LABS: ANISOCYTOSIS 3+; HYPOCHROMASIA 2+; MICROCYTOSIS 3+; OVALOCYTES SLIGHT; POIKILOCYTOSIS 1+; TEAR DROP CELLS SLIGHT; TOXIC GRANULATION SLIGHT; TOXIC VACUOLATION PRESENT
[2016-12-13] MEDS: DOCUSATE SODIUM 100 MG CAPSULE PO SCH ×2 (09:52→17:35)
[2016-12-13] MEDS: HUM INSULIN NPH/REG INSULIN HM 100 UNIT/1 ML 3 ML SUBCUT SCH ×2 (10:01→17:34)
[2016-12-13] MEDS: ASPIRIN 81 MG TABLET, CHEWABLE PO SCH (10:02)
[2016-12-13] MEDS: GABAPENTIN 300 MG CAPSULE PO SCH ×2 (10:02→21:44)
[2016-12-13] MEDS: CLOPIDOGREL BISULFATE 75 MG TABLET PO SCH (10:02)
[2016-12-13] MEDS: CITALOPRAM HYDROBROMIDE 20 MG TABLET PO SCH (10:02)
[2016-12-13] MEDS: ISOSORBIDE MONONITRATE 30 MG TAB.ER.24H PO SCH (10:03)
[2016-12-13] MEDS: METOPROLOL TARTRATE 100 MG TABLET PO SCH ×2 (10:03→21:44)
[2016-12-13] MEDS: INSULIN LISPRO 100 UNIT/ML 3 ML VIAL SUBCUT PRN (14:16)
--- NOTE | 2016-12-13 15:31 | PDOC PROGRESS REPORT ---
Subjective Progress Note for:: 12/13/16 Subjective:: Patient complains of some nausea. Physical Exam Vital Signs: Temp Pulse Resp BP Pulse Ox 97.7 F 78 16 147/62 H 98 12/13/16 12:00 12/13/16 12:00 12/13/16 12:00 12/13/16 12:00 12/13/16 12:00 Intake & Output 12/12/16 12/13/16 12/14/16 06:59 06:59 06:59 Intake Total 5133 2440 400 Output Total 750 1200 100 Balance 4383 1240 300 Weight 99.7 kg 100.4 kg General appearance: PRESENT: no acute distress Eye exam: PRESENT: conjunctiva pink. ABSENT: scleral icterus Mouth exam: PRESENT: moist, tongue midline Neck exam: ABSENT: JVD Respiratory exam: PRESENT: clear to auscultation carmen. ABSENT: rales, rhonchi, wheezes Cardiovascular exam: PRESENT: RRR. ABSENT: diastolic murmur, rubs, systolic murmur GI/Abdominal exam: PRESENT: normal bowel sounds, soft, tenderness - Minimal tenderness in the epigastric area.. ABSENT: distended, guarding, mass, organolmegaly, rebound Extremities exam: ABSENT: calf tenderness, clubbing, pedal edema Neurological exam: PRESENT: alert, awake, oriented to person, oriented to place , oriented to time, oriented to situation, CN II-XII grossly intact. ABSENT: motor sensory deficit Psychiatric exam: PRESENT: appropriate affect Skin exam: PRESENT: dry, intact, warm. ABSENT: cyanosis, rash Results Laboratory Results: 12/13/16 04:00 12/13/16 04:00 12/13/16 12/13/16 04:00 04:00 WBC 25.8 H RBC 7.10 H Hgb 14.5 Hct 46.7 MCV 66 L MCH 20.5 L MCHC 31.2 L RDW 22.5 H Plt Count 272 Seg Neutrophils % Not Reportable Lymphocytes % Not Reportable Monocytes % Not Reportable Eosinophils % Not Reportable Basophils % Not Reportable Absolute Neutrophils Not Reportable Absolute Lymphocytes Not Reportable Absolute Monocytes Not Reportable Absolute Eosinophils Not Reportable Absolute Basophils Not Reportable Sodium 141.4 Potassium 4.4 Chloride 103 Carbon Dioxide 27 Anion Gap 11 BUN 13 Creatinine 0.77 Est GFR ( Amer) > 60 Est GFR (Non-Af Amer) > 60 Glucose 114 H Calcium 9.7 Total Bilirubin 1.1 AST 20 ALT 22 Alkaline Phosphatase 163 H Total Protein 6.8 Albumin 3.5 Impressions: Abdomen/Pelvis CT 12/09/16 00:00 IMPRESSION: NO SIGNIFICANT OR ACUTE FINDING IN THE ABDOMEN OR PELVIS ON CT SCAN WITH IV CONTRAST. Assessment & Plan - Diagnosis (1) Abdominal pain Qualifiers: Abdominal location: generalized Qualified Code(s): R10.84 - Generalized abdominal pain Is this a current diagnosis for this admission?: YesPlan: Patient continues to have some pain and some nausea. Patient is to be seen by GI today. (2) UTI (urinary tract infection) Qualifiers: Urinary tract infection type: site unspecified Hematuria presence: without hematuria Qualified Code(s): N39.0 - Urinary tract infection, site not specified Is this a current diagnosis for this admission?: YesPlan: Patient had a culture several days ago that was growing out Escherichia coli as well as enterococcus. Patient was started on ceftaz for the Escherichia coli. and Zyvox because of her enterococcus. She is having difficulty tolerating her by mouth antibiotics at this time. (3) Bandemia Is this a current diagnosis for this admission?: YesPlan: Most likely secondary to her underlying urinary tract infection. (4) HTN (hypertension) Qualifiers: Hypertension type: essential hypertension Qualified Code(s): I10 - Essential (primary) hypertension Is this a current diagnosis for this admission?: YesPlan: Blood pressure has been elevated. We'll give when necessary hydralazine. (5) Morbid obesity Qualifiers: Obesity type: unspecified obesity type Qualified Code(s): E66.01 - Morbid (severe) obesity due to excess calories Is this a current diagnosis for this admission?: Yes (6) Anxiety and depression Is this a current diagnosis for this admission?: Yes (7) CAD (coronary artery disease) Qualifiers: Coronary Disease-Associated Artery/Lesion type: [place] artery [place] vs. transplanted heart: [place] heart Associated angina: without angina Qualified Code(s): I25.10 - Atherosclerotic heart disease of [place] coronary artery without angina pectoris Is this a current diagnosis for this admission?: YesPlan: Denies any chest pain. (8) Diabetes Qualifiers: Diabetes mellitus type: type 1 Is this a current diagnosis for this admission?: YesPlan: We'll give 70/30 insulin as well as sliding scale insulin. (9) GERD (gastroesophageal reflux disease) Qualifiers: Esophagitis presence: without esophagitis Qualified Code(s): K21.9 - Gastro-esophageal reflux disease without esophagitis Is this a current diagnosis for this admission?: Yes (10) Hyperlipidemia Qualifiers: Hyperlipidemia type: unspecified Qualified Code(s): E78.5 - Hyperlipidemia, unspecified - Time Time Spent with patient: 25-34 minutes - Inpatient Certification Medical Necessity: Need Close Monitoring Due to Risk of Patient Decompensation, Need for IV Antibiotics - Plan Summary Plan Summary: Once the patient is tolerating by mouth adequately she could be discharged home on oral antibiotics. Patient is to be seen by GI today.
[2016-12-14 05:36] LABS: ANION GAP 11 (5-19); BLOOD UREA NITROGEN 11 mg/dL (7-20); CALCIUM 9.9 mg/dL (8.4-10.2); CARBON DIOXIDE 28 mmol/L (22-30); CHLORIDE 104 mmol/L (98-107); CREATININE RESULT 0.72 mg/dL (0.52-1.25); GLUCOSE 71 mg/dL (75-110); POTASSIUM 4.4 mmol/L (3.6-5.0); SODIUM 143.2 mmol/L (137-145)
[2016-12-14 05:47] LABS: HEMATOCRIT 47.5 % (36.0-47.0); HEMOGLOBIN 14.6 g/dL (12.0-15.5); HGB HCT DIFFERENCE -3.7; MEAN CORPUSCULAR HEMOGLOBIN 20.1 pg (27.0-33.4); MEAN CORPUSCULAR HGB CONC 30.8 g/dL (32.0-36.0); MEAN CORPUSCULAR VOLUME 65 fl (80-97); RED CELL DISTRIBUTION WIDTH 21.6 % (11.5-14.0); WHITE BLOOD COUNT 27.3 10^3/uL (4.0-10.5)
[2016-12-14] MEDS: WATER IV SCH (05:47)
[2016-12-14] MEDS: DEXTROSE 5% IV SCH (05:47)
[2016-12-14] MEDS: CEFTAZIDIME PENTAHYDRATE IV SCH (05:47)
[2016-12-14] MEDS: HEPARIN SOD (PORCINE) 5,000 UNIT/ML 1 ML SYRINGE SUBCUT SCH ×3 (05:47→22:00)
[2016-12-14 06:23] LABS: BAND NEUTROPHILS % (MANUAL) 2 % (3-5); BASOPHILS % (MANUAL) 0 % (0-2); EOSINOPHILS % (MANUAL) 1 % (0-6); LYMPHOCYTES % (MANUAL) 6 % (13-45); TOTAL CELLS COUNTED 100
[2016-12-14 06:26] LABS: ANISOCYTOSIS 2+; HYPOCHROMASIA SLIGHT; MICROCYTOSIS 2+; OVALOCYTES SLIGHT; POIKILOCYTOSIS SLIGHT; TOXIC GRANULATION SLIGHT; TOXIC VACUOLATION PRESENT
[2016-12-14 06:35] LABS: RED BLOOD COUNT 7.29 10^6/uL (3.72-5.28)
[2016-12-14] MEDS: CLOPIDOGREL BISULFATE 75 MG TABLET PO SCH (09:31)
[2016-12-14] MEDS: ISOSORBIDE MONONITRATE 30 MG TAB.ER.24H PO SCH (09:31)
[2016-12-14] MEDS: ASPIRIN 81 MG TABLET, CHEWABLE PO SCH (09:32)
[2016-12-14] MEDS: GABAPENTIN 300 MG CAPSULE PO SCH ×2 (09:32→22:01)
[2016-12-14] MEDS: METOPROLOL TARTRATE 100 MG TABLET PO SCH ×2 (09:32→22:01)
[2016-12-14] MEDS: CITALOPRAM HYDROBROMIDE 20 MG TABLET PO SCH (09:33)
[2016-12-14] MEDS: HUM INSULIN NPH/REG INSULIN HM 100 UNIT/1 ML 3 ML SUBCUT SCH ×2 (09:43→18:25)
[2016-12-14] MEDS: DOCUSATE SODIUM 100 MG CAPSULE PO SCH ×2 (09:43→18:25)
[2016-12-14] MEDS ORDERED: NITROFURANTOIN MONOHYD/M-CRYST 100 MG CAPSULE PO ONE (13:00)
[2016-12-14] MEDS ORDERED: NALOXONE HCL INJ/PF 0.4 MG/1 ML SDV ONE (15:36)
[2016-12-14] MEDS ORDERED: GLUCAGON,HUMAN RECOMB 1 MG INJ ONE (15:37)
[2016-12-14] MEDS ORDERED: FLUMAZENIL INJ 0.5 MG/5 ML VIAL IV ONE (15:37)
[2016-12-14] MEDS ORDERED: FENTANYL CITRATE INJ/PF 100 MCG/2 ML AMPUL ONE (15:37)
[2016-12-14] MEDS ORDERED: MIDAZOLAM 2 MG/2 ML INJ ONE (15:37)
[2016-12-14] MEDS ORDERED: EPINEPHRINE INJ 1 MG/10 ML DISP.SYRIN ONE (15:37)
--- NOTE | 2016-12-14 16:52 | PDOC CONSULTATION ---
Consultation Consult Date: 12/13/16 History of Present Illness Admission Date/PCP: 12/10/16 02:13 SOFI GUERRIER MD History of Present Illness: This is an 81-year-old patient was admitted on 12/10/2016 with abdominal pain and nausea. She has been having recurrent abdominal pain for many weeks lasting for hours at a time. She has recurrent nausea and vomiting. Vomiting sometimes makes the pain better. She has a chronic history of alternating diarrhea and constipation. She also has a chronically elevated WBC for at least a year. She has been worked up by Dr. Mercer and leukemia has been ruled out. She had a CAT scan of the abdomen and pelvis with IV and oral contrast on admission and this was unremarkable. She prepped for a colonoscopy a few months ago but this had to be canceled due to dehydration and hospitalization. On admission her bilirubin was 1.6 with AST of 48 and alkaline phosphatase of 192. By yesterday her alkaline phosphatase was 09/29/1962 but the rest of her LFTs were normal. She had a limited CT in August of this year that showed a tiny radiopaque density within the gallbladder suggestive of gallstone. This was again seen on another limited CT performed on 11/11/2016 Past Medical History Cardiac Medical History: Reports: Congestive Heart Failure - reports an acute episode previously, unsure of year, Myocardial Infarction - EKG suggests probable prior infarction, Hyperlipidema, Hypertension Pulmonary Medical History: Reports: None EENT Medical History: Reports: None, Other - Persistent leukocytosis Neurological Medical History: Reports: None Endocrine Medical History: Reports: Diabetes Mellitus Type 2 Renal/ Medical History: Reports: None Denies: End Stage Renal Disease Malignancy Medical History: Reports: None GI Medical History: Reports: Gastroesophageal Reflux Disease Musculoskeltal Medical History: Reports: Arthritis Skin Medical History: Reports: None Psychiatric Medical History: Reports: Depression Traumatic Medical History: Reports: None Hematology: Reports: Other - Persistent leukocytosis Infectious Medical History: Reports: None Past Surgical History Past Surgical History: Reports: Appendectomy, Hysterectomy, Tonsillectomy, Other - Cardiac loop recorder, bilateral cataract surgery Social History Lives with: Family - Her daughter Smoking Status: Former Smoker Frequency of Alcohol Use: None Hx Recreational Drug Use: No Drugs: None Hx Prescription Drug Abuse: No - Advance Directive Resuscitation Status: Full Code Family History Family History: CAD, COPD, DM, Hyperlipidemia, Hypertension, Malignancy - Father with lung cancer, Other Parental Family History Reviewed: No Children Family History Reviewed: NA Sibling(s) Family History Reviewed.: NA Medication/Allergy Home Medications: Aspirin [Aspirin 81 mg Chewable Tablet] 81 mg PO DAILY 12/10/16 Citalopram Hydrobromide [Celexa 40 mg Tablet] 40 mg PO DAILY 12/10/16 Clopidogrel Bisulfate [Plavix 75 mg Tablet] 75 mg PO DAILY 12/10/16 Docusate Sodium [Colace 100 mg Capsule] 100 mg PO BID 12/10/16 Gabapentin [Neurontin 300 mg Capsule] 300 mg PO Q12 12/10/16 Insulin Aspart Protam & Aspart [Novolog Mix 70-30 Flexpen Syrn] 60 units SQ BID 12/10/16 Isosorbide Mononitrate [Imdur 30 mg Tablet.er] 30 mg PO DAILY 12/10/16 Losartan Potassium [Cozaar 50 mg Tablet] 50 mg PO DAILY 12/10/16 Metoprolol Tartrate [Lopressor 100 mg Tablet] 100 mg PO Q12 12/10/16 Nitrofurantoin Monohyd/M-Cryst [Macrobid 100 mg Capsule] 100 mg PO Q12 12/10/16 Oxycodone HCl/Acetaminophen [Percocet 5-325 mg Tablet] 1 tab PO Q6HP PRN Rosuvastatin Calcium [Crestor 10 mg Tablet] 10 mg PO DAILY 12/10/16 Sitagliptin Phosphate [Januvia] 100 mg PO DAILY 12/10/16 Trazodone HCl [Desyrel 50 mg Tablet] 50 mg PO HSP PRN 12/10/16 Allergies/Adverse Reactions: amoxicillin Allergy (Intermediate, Verified 11/11/16 10:33) Penicillins Allergy (Verified 11/11/16 10:33) Review of Systems All systems: reviewed and no additional remarkable complaints except as stated Physical Exam Vital Signs: Temp Pulse Resp BP Pulse Ox 97.7 F 69 16 143/67 H 94 12/14/16 16:21 12/14/16 16:21 12/14/16 16:21 12/14/16 16:21 12/14/16 16:21 Intake & Output 12/13/16 12/14/16 12/15/16 06:59 06:59 06:59 Intake Total 2440 1687 330 Output Total 1200 400 Balance 1240 1287 330 Weight 100.4 kg 100.4 kg Exam: General: Patient is alert and looks well. She is obese HEENT: There is no pallor or jaundice. PERRLA. Oropharynx normal Respiratory: No chest deformity. No respiratory distress. Chest wall palpitation was unremarkable. Breath sounds were normal Cardiovascular: Heart sounds 1 and 2 normal with no murmurs. Abdominal: Not distended. Soft and nontender. Liver and spleen not palpable. No ascites demonstrated. Bowel sounds active. Rectal examination was deferred. Extremities: No edema Neurological: Alert and oriented x4. Grossly nonfocal. Normal speech Skin: No significant rash Psychological: Normal affect Results Laboratory Results: 12/14/16 04:25 12/14/16 04:25 12/14/16 12/14/16 04:25 04:25 WBC 27.3 H RBC 7.29 H Hgb 14.6 Hct 47.5 H MCV 65 L MCH 20.1 L MCHC 30.8 L RDW 21.6 H Plt Count 307 Seg Neutrophils % Not Reportable Lymphocytes % Not Reportable Monocytes % Not Reportable Eosinophils % Not Reportable Basophils % Not Reportable Absolute Neutrophils Not Reportable Absolute Lymphocytes Not Reportable Absolute Monocytes Not Reportable Absolute Eosinophils Not Reportable Absolute Basophils Not Reportable Sodium 143.2 Potassium 4.4 Chloride 104 Carbon Dioxide 28 Anion Gap 11 BUN 11 Creatinine 0.72 Est GFR ( Amer) > 60 Est GFR (Non-Af Amer) > 60 Glucose 71 L Calcium 9.9 Impressions: Abdomen/Pelvis CT 12/09/16 00:00 IMPRESSION: NO SIGNIFICANT OR ACUTE FINDING IN THE ABDOMEN OR PELVIS ON CT SCAN WITH IV CONTRAST. Assessment & Plan - Diagnosis (1) Abdominal pain Qualifiers: Abdominal location: generalized Qualified Code(s): R10.84 - Generalized abdominal pain Is this a current diagnosis for this admission?: YesPlan: She has had recurrent abdominal pain for weeks associated with nausea and vomiting. She will undergo an EGD to rule out ulcers. Her LFTs were transiently elevated during this admission. She had had multiple abnormal LFTs since June of last year until now. Choledocholithiasis is a possibility (2) Nausea and vomiting Is this a current diagnosis for this admission?: Yes (3) Gallstone Is this a current diagnosis for this admission?: YesPlan: This was seen on two previous limited CAT scan in August and October of this year. I will further evaluate her gallbladder and biliary tree with an ultrasound (4) Morbid obesity Qualifiers: Obesity type: unspecified obesity type Qualified Code(s): E66.01 - Morbid (severe) obesity due to excess calories Is this a current diagnosis for this admission?: Yes (5) Leukocytosis Qualifiers: Leukocytosis type: unspecified Qualified Code(s): D72.829 - Elevated white blood cell count, unspecified Is this a current diagnosis for this admission?: YesPlan: She has had this problem for over a year and has been worked up by hematology. She has not seen the frame expander for about six months and I will suggest referral after discharge
--- NOTE | 2016-12-14 17:04 | Operative Report ---
Operative Report DATE OF SURGERY: 12/14/16 Operative Report: Pre-op diagnosis: Abdominal pain, nausea, and vomiting Post-op diagnosis: Antral gastritis and duodenal erosions Surgery: Esophagogastroduodenoscopy with biopsy Medications: Versed 2mg Fentanyl 50mcg IV push Tissue removed: Antral biopsy for pathology Procedure: After informed consent obtained from patient, the throat was sprayed with [place] and conscious sedation was achieved. The upper endoscope was inserted into the esophagus under direct vision and advanced into the stomach. The duodenum was entered and examined to the second part. Endoscope was then slowly pulled out of the patient as the mucosa was examined into details. Patient tolerated procedure well. Findings Esophagus: Normal Z-line at: 40 cm Antrum: Moderate erythema with a few erosions Body: Normal Fundus: Normal Duodenum first part: Areas of erythema and multiple erosions noted. Duodenum second part: Normal Plan: Await pathology. Start Prevacid daily. OPERATION: .
--- NOTE | 2016-12-14 17:05 | PDOC PROGRESS REPORT ---
Subjective Progress Note for:: 12/14/16 Subjective:: Patient has no particular complaints. She is a little bit nauseous because of being NPO for EGD today. Patient denies fever, chills, headache, new focal weakness, chest pain, shortness of breath, abdominal pain, vomiting, diarrhea, constipation. Physical Exam Vital Signs: Temp Pulse Resp BP Pulse Ox 97.7 F 69 16 143/67 H 94 12/14/16 16:21 12/14/16 16:21 12/14/16 16:21 12/14/16 16:21 12/14/16 16:21 Intake & Output 12/13/16 12/14/16 12/15/16 06:59 06:59 06:59 Intake Total 2440 1687 330 Output Total 1200 400 Balance 1240 1287 330 Weight 100.4 kg 100.4 kg GENERAL: No acute distress HEENT: Conjunctiva clear, nonicteric, moist mucous membranes, no JVD, midline trachea RESPIRATORY: Clear to auscultation bilaterally, no wheezes, no rhonchi CARDIAC: Regular rate and rhythm, no murmurs/gallops/rubs ABDOMEN: Soft, nondistended, nontender, positive bowel sounds, no rebound, no guarding EXTREMETIES: No edema, cyanosis, clubbing NEUROLOGIC: Alert, oriented to person/place/time, CN's grossly intact, no focal deficits SKIN: No rash, wounds PSYCH: Normal mood, normal affect Results Laboratory Results: 12/14/16 04:25 12/14/16 04:25 12/14/16 12/14/16 04:25 04:25 WBC 27.3 H RBC 7.29 H Hgb 14.6 Hct 47.5 H MCV 65 L MCH 20.1 L MCHC 30.8 L RDW 21.6 H Plt Count 307 Seg Neutrophils % Not Reportable Lymphocytes % Not Reportable Monocytes % Not Reportable Eosinophils % Not Reportable Basophils % Not Reportable Absolute Neutrophils Not Reportable Absolute Lymphocytes Not Reportable Absolute Monocytes Not Reportable Absolute Eosinophils Not Reportable Absolute Basophils Not Reportable Sodium 143.2 Potassium 4.4 Chloride 104 Carbon Dioxide 28 Anion Gap 11 BUN 11 Creatinine 0.72 Est GFR ( Amer) > 60 Est GFR (Non-Af Amer) > 60 Glucose 71 L Calcium 9.9 Impressions: Abdomen/Pelvis CT 12/09/16 00:00 IMPRESSION: NO SIGNIFICANT OR ACUTE FINDING IN THE ABDOMEN OR PELVIS ON CT SCAN WITH IV CONTRAST. Assessment & Plan - Diagnosis (1) Leukocytosis Qualifiers: Leukocytosis type: unspecified Qualified Code(s): D72.829 - Elevated white blood cell count, unspecified Is this a current diagnosis for this admission?: YesPlan: Patient has had a chronic leukocytosis. She has been seen by Dr. Mercer in the past. I will consult Dr. Mercer again for his opinion. (2) Urinary tract infection Qualifiers: Urinary tract infection type: site unspecified Hematuria presence: with hematuria Qualified Code(s): N39.0 - Urinary tract infection, site not specified Is this a current diagnosis for this admission?: YesPlan: Discontinue IV antibiotics. Start Macrobid based on culture and susceptibility of recent urine culture. (3) Nausea and vomiting Is this a current diagnosis for this admission?: YesPlan: Patient is being evaluated by Dr. Gurrola of GI and having EGD today. (4) CAD (coronary artery disease) Qualifiers: Coronary Disease-Associated Artery/Lesion type: [place] artery [place] vs. transplanted heart: [place] heart Associated angina: without angina Qualified Code(s): I25.10 - Atherosclerotic heart disease of [place] coronary artery without angina pectoris Is this a current diagnosis for this admission?: YesPlan: Aspirin, Plavix, metoprolol, Imdur. Patient takes Crestor as an outpatient. (5) Diabetes Qualifiers: Diabetes mellitus type: type 1 Is this a current diagnosis for this admission?: YesPlan: Continue 7030 insulin. Januvia is on hold. Sliding scale insulin. (6) Diastolic CHF Qualifiers: Congestive heart failure chronicity: chronic Qualified Code(s): I50.32 - Chronic diastolic (congestive) heart failure Is this a current diagnosis for this admission?: Yes - Time Time Spent with patient: 35 or more minutes Anticipated discharge: Home Within: within 24 hours
[2016-12-14] MEDS ORDERED: LANSOPRAZOLE 30 MG TAB.RAP.DR PO ONE (17:30)
[2016-12-14] MEDS: NITROFURANTOIN MONOHYD/M-CRYST 100 MG CAPSULE PO SCH (22:01)
[2016-12-14] MEDS: INSULIN LISPRO 100 UNIT/ML 3 ML VIAL SUBCUT PRN (22:11)
[2016-12-15 06:08] LABS: HEMATOCRIT 49.3 % (36.0-47.0); HEMOGLOBIN 15.3 g/dL (12.0-15.5); HGB HCT DIFFERENCE -3.4; MEAN CORPUSCULAR HEMOGLOBIN 20.5 pg (27.0-33.4); MEAN CORPUSCULAR HGB CONC 31.1 g/dL (32.0-36.0); MEAN CORPUSCULAR VOLUME 66 fl (80-97); RED CELL DISTRIBUTION WIDTH 22.1 % (11.5-14.0); WHITE BLOOD COUNT 22.5 10^3/uL (4.0-10.5)
[2016-12-15] MEDS: HEPARIN SOD (PORCINE) 5,000 UNIT/ML 1 ML SYRINGE SUBCUT SCH ×3 (06:27→21:26)
[2016-12-15 06:39] LABS: BAND NEUTROPHILS % (MANUAL) 3 % (3-5); BASOPHILS % (MANUAL) 0 % (0-2); EOSINOPHILS % (MANUAL) 0 % (0-6); LYMPHOCYTES % (MANUAL) 3 % (13-45); TOTAL CELLS COUNTED 100
[2016-12-15 06:41] LABS: ANISOCYTOSIS 3+; BURR CELLS SLIGHT; HYPOCHROMASIA SLIGHT; MICROCYTOSIS 3+; OVALOCYTES SLIGHT; POIKILOCYTOSIS 1+; POLYCHROMASIA SLIGHT; SCHISTOCYTES SLIGHT
[2016-12-15 08:03] LABS: ANION GAP 10 (5-19); BLOOD UREA NITROGEN 12 mg/dL (7-20); CALCIUM 8.9 mg/dL (8.4-10.2); CARBON DIOXIDE 27 mmol/L (22-30); CHLORIDE 103 mmol/L (98-107); CREATININE RESULT 0.67 mg/dL (0.52-1.25); GLUCOSE 194 mg/dL (75-110); POTASSIUM 4.4 mmol/L (3.6-5.0); SODIUM 140.1 mmol/L (137-145)
[2016-12-15] MEDS: NITROFURANTOIN MONOHYD/M-CRYST 100 MG CAPSULE PO SCH ×2 (09:33→21:26)
[2016-12-15] MEDS: LANSOPRAZOLE 30 MG TAB.RAP.DR PO SCH (09:33)
[2016-12-15] MEDS: CLOPIDOGREL BISULFATE 75 MG TABLET PO SCH (09:33)
[2016-12-15] MEDS: CITALOPRAM HYDROBROMIDE 20 MG TABLET PO SCH (09:33)
[2016-12-15] MEDS: ASPIRIN 81 MG TABLET, CHEWABLE PO SCH (09:34)
[2016-12-15] MEDS: GABAPENTIN 300 MG CAPSULE PO SCH ×2 (09:34→21:26)
[2016-12-15] MEDS: HUM INSULIN NPH/REG INSULIN HM 100 UNIT/1 ML 3 ML SUBCUT SCH ×2 (09:34→18:08)
[2016-12-15] MEDS: DOCUSATE SODIUM 100 MG CAPSULE PO SCH (09:34)
[2016-12-15] MEDS: ISOSORBIDE MONONITRATE 30 MG TAB.ER.24H PO SCH (09:34)
[2016-12-15] MEDS: METOPROLOL TARTRATE 100 MG TABLET PO SCH ×2 (09:34→21:26)
[2016-12-15] MEDS: INSULIN LISPRO 100 UNIT/ML 3 ML VIAL SUBCUT PRN ×3 (11:42→21:26)
--- NOTE | 2016-12-15 13:00 | PDOC PROGRESS REPORT ---
Subjective Progress Note for:: 12/15/16 Subjective:: Patient states that she is feeling generally unwell today. She is having occasional loose stools and this is been going on for quite some time intermittently. Patient denies fever, chills, headache, new focal weakness, chest pain, shortness of breath, abdominal pain, vomiting. Physical Exam Vital Signs: Temp Pulse Resp BP Pulse Ox 97.9 F 79 16 139/64 H 94 12/15/16 11:15 12/15/16 11:15 12/15/16 11:15 12/15/16 11:15 12/15/16 11:15 Intake & Output 12/14/16 12/15/16 12/16/16 06:59 06:59 06:59 Intake Total 1687 530 Output Total 400 Balance 1287 530 Weight 100.4 kg 99.3 kg GENERAL: No acute distress HEENT: Conjunctiva clear, nonicteric, moist mucous membranes, no JVD, midline trachea RESPIRATORY: Clear to auscultation bilaterally, no wheezes, no rhonchi CARDIAC: Regular rate and rhythm, no murmurs/gallops/rubs ABDOMEN: Soft, nondistended, nontender, positive bowel sounds, no rebound, no guarding EXTREMETIES: No edema, cyanosis, clubbing NEUROLOGIC: Alert, oriented to person/place/time, CN's grossly intact, no focal deficits SKIN: No rash, wounds PSYCH: Normal mood, normal affect Results Laboratory Results: 12/15/16 05:03 12/15/16 07:43 12/15/16 12/15/16 12/15/16 05:03 05:03 07:10 WBC 22.5 H RBC 7.50 H Hgb 15.3 Hct 49.3 H MCV 66 L MCH 20.5 L MCHC 31.1 L RDW 22.1 H Plt Count 242 Seg Neutrophils % Not Reportable Lymphocytes % Not Reportable Monocytes % Not Reportable Eosinophils % Not Reportable Basophils % Not Reportable Absolute Neutrophils Not Reportable Absolute Lymphocytes Not Reportable Absolute Monocytes Not Reportable Absolute Eosinophils Not Reportable Absolute Basophils Not Reportable Sodium Cancelled Cancelled Potassium Cancelled Cancelled Chloride Cancelled Cancelled Carbon Dioxide Cancelled Cancelled Anion Gap Cancelled Cancelled BUN Cancelled Cancelled Creatinine Cancelled Cancelled Est GFR ( Amer) Cancelled Cancelled Est GFR (Non-Af Amer) Cancelled Cancelled Glucose Cancelled Cancelled Calcium Cancelled Cancelled 12/15/16 07:43 WBC RBC Hgb Hct MCV MCH MCHC RDW Plt Count Seg Neutrophils % Lymphocytes % Monocytes % Eosinophils % Basophils % Absolute Neutrophils Absolute Lymphocytes Absolute Monocytes Absolute Eosinophils Absolute Basophils Sodium 140.1 Potassium 4.4 Chloride 103 Carbon Dioxide 27 Anion Gap 10 BUN 12 Creatinine 0.67 Est GFR ( Amer) > 60 Est GFR (Non-Af Amer) > 60 Glucose 194 H Calcium 8.9 12/10/16 02:30 Blood Blood Culture - Final NO GROWTH IN 5 DAYS Impressions: Abdomen/Pelvis CT 12/09/16 00:00 IMPRESSION: NO SIGNIFICANT OR ACUTE FINDING IN THE ABDOMEN OR PELVIS ON CT SCAN WITH IV CONTRAST. Abdomen Ultrasound 12/15/16 00:00 IMPRESSION: Moderate hepatic steatosis. No acute findings. Limitation. Assessment & Plan - Diagnosis (1) Leukocytosis Qualifiers: Leukocytosis type: unspecified Qualified Code(s): D72.829 - Elevated white blood cell count, unspecified Is this a current diagnosis for this admission?: YesPlan: Treat urinary tract infection. Check stool for C. difficile. Case discussed with Dr. Mercer of hematology he does not feel there is a hematologic condition going on. He has seen patient and prior hospital visits and as an outpatient. Recommends continue to treat infectious disease issues. (2) Urinary tract infection Qualifiers: Urinary tract infection type: site unspecified Hematuria presence: with hematuria Qualified Code(s): N39.0 - Urinary tract infection, site not specified Is this a current diagnosis for this admission?: YesPlan: Continue Macrobid based on culture and susceptibility of recent urine culture until 12/25/2016. (3) CAD (coronary artery disease) Qualifiers: Coronary Disease-Associated Artery/Lesion type: [place] artery [place] vs. transplanted heart: [place] heart Associated angina: without angina Qualified Code(s): I25.10 - Atherosclerotic heart disease of [place] coronary artery without angina pectoris Is this a current diagnosis for this admission?: Yes (4) Diabetes Qualifiers: Diabetes mellitus type: type 1 Is this a current diagnosis for this admission?: YesPlan: Continue 70/30 insulin. Januvia is on hold. Sliding scale insulin. (5) Diastolic CHF Qualifiers: Congestive heart failure chronicity: chronic Qualified Code(s): I50.32 - Chronic diastolic (congestive) heart failure Is this a current diagnosis for this admission?: Yes (6) Loose stools Is this a current diagnosis for this admission?: YesPlan: Check stool for C. difficile given frequent antibiotic use for recurrent urinary tract infections. (7) Acute gastritis Is this a current diagnosis for this admission?: YesPlan: This was noted on EGD performed 12/14/[address] Gurrola. Patient is on Prevacid. - Time Time Spent with patient: 35 or more minutes Anticipated discharge: Home Within: within 48 hours
[2016-12-15] MEDS: ONDANSETRON HCL INJ/PF 4 MG/2 ML SDV IV PRN (17:58)
[2016-12-16] MEDS: HEPARIN SOD (PORCINE) 5,000 UNIT/ML 1 ML SYRINGE SUBCUT SCH ×3 (05:26→21:25)
[2016-12-16 06:23] LABS: ANION GAP 11 (5-19); BLOOD UREA NITROGEN 17 mg/dL (7-20); CALCIUM 9.8 mg/dL (8.4-10.2); CARBON DIOXIDE 29 mmol/L (22-30); CHLORIDE 102 mmol/L (98-107); CREATININE RESULT 0.78 mg/dL (0.52-1.25); GLUCOSE 183 mg/dL (75-110); POTASSIUM 4.2 mmol/L (3.6-5.0); SODIUM 141.7 mmol/L (137-145)
[2016-12-16 06:28] LABS: HEMATOCRIT 47.1 % (36.0-47.0); HEMOGLOBIN 14.7 g/dL (12.0-15.5); MEAN CORPUSCULAR HEMOGLOBIN 20.7 pg (27.0-33.4); MEAN CORPUSCULAR HGB CONC 31.2 g/dL (32.0-36.0); MEAN CORPUSCULAR VOLUME 66 fl (80-97); RED CELL DISTRIBUTION WIDTH 22.4 % (11.5-14.0); WHITE BLOOD COUNT 24.2 10^3/uL (4.0-10.5)
[2016-12-16 07:09] LABS: RED BLOOD COUNT 7.09 10^6/uL (3.72-5.28)
[2016-12-16 07:10] LABS: BAND NEUTROPHILS % (MANUAL) 2 % (3-5); BASOPHILS % (MANUAL) 0 % (0-2); EOSINOPHILS % (MANUAL) 0 % (0-6); LYMPHOCYTES % (MANUAL) 6 % (13-45); TOTAL CELLS COUNTED 100
[2016-12-16 07:13] LABS: ANISOCYTOSIS 2+; MICROCYTOSIS 2+; OVALOCYTES SLIGHT; POIKILOCYTOSIS SLIGHT; POLYCHROMASIA SLIGHT; TEAR DROP CELLS SLIGHT
--- NOTE | 2016-12-16 09:59 | PDOC PROGRESS REPORT ---
Subjective Progress Note for:: 12/16/16 Subjective:: Patient states that she is feeling generally weak today. Patient denies fever, chills, headache, new focal weakness, chest pain, shortness of breath, abdominal pain, vomiting. Physical Exam Vital Signs: Temp Pulse Resp BP Pulse Ox 97.7 F 79 16 162/71 H 91 L 12/16/16 08:00 12/16/16 08:00 12/16/16 08:00 12/16/16 08:00 12/16/16 08:00 Intake & Output 12/15/16 12/16/16 12/17/16 06:59 06:59 06:59 Intake Total 530 1292 Output Total 300 Balance 530 992 Weight 99.3 kg 100.5 kg GENERAL: No acute distress HEENT: Conjunctiva clear, nonicteric, moist mucous membranes, no JVD, midline trachea RESPIRATORY: Clear to auscultation bilaterally, no wheezes, no rhonchi CARDIAC: Regular rate and rhythm, no murmurs/gallops/rubs ABDOMEN: Soft, nondistended, nontender, positive bowel sounds, no rebound, no guarding EXTREMETIES: No edema, cyanosis, clubbing NEUROLOGIC: Alert, oriented to person/place/time, CN's grossly intact, no focal deficits SKIN: No rash, wounds PSYCH: Normal mood, normal affect Results Laboratory Results: 12/16/16 04:29 12/16/16 04:29 12/16/16 12/16/16 04:29 04:29 WBC 24.2 H RBC 7.09 H Hgb 14.7 Hct 47.1 H MCV 66 L MCH 20.7 L MCHC 31.2 L RDW 22.4 H Plt Count 296 Seg Neutrophils % Not Reportable Lymphocytes % Not Reportable Monocytes % Not Reportable Eosinophils % Not Reportable Basophils % Not Reportable Absolute Neutrophils Not Reportable Absolute Lymphocytes Not Reportable Absolute Monocytes Not Reportable Absolute Eosinophils Not Reportable Absolute Basophils Not Reportable Sodium 141.7 Potassium 4.2 Chloride 102 Carbon Dioxide 29 Anion Gap 11 BUN 17 Creatinine 0.78 Est GFR ( Amer) > 60 Est GFR (Non-Af Amer) > 60 Glucose 183 H Calcium 9.8 12/15/16 18:05 C. difficile Tox (PCR) NEGATIVE Impressions: Abdomen/Pelvis CT 12/09/16 00:00 IMPRESSION: NO SIGNIFICANT OR ACUTE FINDING IN THE ABDOMEN OR PELVIS ON CT SCAN WITH IV CONTRAST. Abdomen Ultrasound 12/15/16 00:00 IMPRESSION: Moderate hepatic steatosis. No acute findings. Limitation. Assessment & Plan - Diagnosis (1) Leukocytosis Qualifiers: Leukocytosis type: unspecified Qualified Code(s): D72.829 - Elevated white blood cell count, unspecified Is this a current diagnosis for this admission?: YesPlan: Treat urinary tract infection. C. difficile negative. Case discussed with Dr. Mercer of hematology he does not feel there is a hematologic condition going on. He has seen patient and prior hospital visits and as an outpatient. Recommends continue to treat infectious disease issues. (2) Urinary tract infection Qualifiers: Urinary tract infection type: site unspecified Hematuria presence: with hematuria Qualified Code(s): N39.0 - Urinary tract infection, site not specified Is this a current diagnosis for this admission?: YesPlan: Continue Macrobid based on culture and susceptibility of recent urine culture until 12/25/2016. (3) CAD (coronary artery disease) Qualifiers: Coronary Disease-Associated Artery/Lesion type: [place] artery [place] vs. transplanted heart: [place] heart Associated angina: without angina Qualified Code(s): I25.10 - Atherosclerotic heart disease of [place] coronary artery without angina pectoris Is this a current diagnosis for this admission?: YesPlan: Aspirin, Plavix, metoprolol, Imdur. Patient takes Crestor as an outpatient. (4) Diabetes Qualifiers: Diabetes mellitus type: type 1 Is this a current diagnosis for this admission?: YesPlan: Continue 70/30 insulin. Januvia is on hold. Sliding scale insulin. (5) Diastolic CHF Qualifiers: Congestive heart failure chronicity: chronic Qualified Code(s): I50.32 - Chronic diastolic (congestive) heart failure Is this a current diagnosis for this admission?: Yes (6) Loose stools Is this a current diagnosis for this admission?: YesPlan: C. difficile negative. (7) Acute gastritis Is this a current diagnosis for this admission?: YesPlan: EGD performed 12/14/[address] Gurrola showed gastritis and duodenal erosions. Patient is on Prevacid. - Time Time Spent with patient: 25-34 minutes Anticipated discharge: Home Within: within 24 hours
[2016-12-16] MEDS: CLOPIDOGREL BISULFATE 75 MG TABLET PO SCH (10:08)
[2016-12-16] MEDS: GABAPENTIN 300 MG CAPSULE PO SCH ×2 (10:08→21:25)
[2016-12-16] MEDS: CITALOPRAM HYDROBROMIDE 20 MG TABLET PO SCH (10:08)
[2016-12-16] MEDS: NITROFURANTOIN MONOHYD/M-CRYST 100 MG CAPSULE PO SCH ×2 (10:08→21:25)
[2016-12-16] MEDS: HUM INSULIN NPH/REG INSULIN HM 100 UNIT/1 ML 3 ML SUBCUT SCH ×2 (10:09→18:10)
[2016-12-16] MEDS: LANSOPRAZOLE 30 MG TAB.RAP.DR PO SCH (10:09)
[2016-12-16] MEDS: ISOSORBIDE MONONITRATE 30 MG TAB.ER.24H PO SCH (10:09)
[2016-12-16] MEDS: ASPIRIN 81 MG TABLET, CHEWABLE PO SCH (10:09)
[2016-12-16] MEDS: METOPROLOL TARTRATE 100 MG TABLET PO SCH ×2 (10:09→21:25)
[2016-12-16] MEDS: ACETAMINOPHEN 325 MG TABLET PO PRN (10:45)
[2016-12-16] MEDS: INSULIN LISPRO 100 UNIT/ML 3 ML VIAL SUBCUT PRN ×3 (11:48→21:25)
[2016-12-17] MEDS: HEPARIN SOD (PORCINE) 5,000 UNIT/ML 1 ML SYRINGE SUBCUT SCH ×3 (05:26→21:15)
[2016-12-17] MEDS: LANSOPRAZOLE 30 MG TAB.RAP.DR PO SCH (07:20)
[2016-12-17] MEDS: ACETAMINOPHEN 325 MG TABLET PO PRN (07:20)
[2016-12-17] MEDS: METOPROLOL TARTRATE 100 MG TABLET PO SCH ×2 (09:38→21:14)
[2016-12-17] MEDS: NITROFURANTOIN MONOHYD/M-CRYST 100 MG CAPSULE PO SCH ×2 (09:39→21:12)
[2016-12-17] MEDS: ASPIRIN 81 MG TABLET, CHEWABLE PO SCH (09:39)
[2016-12-17] MEDS: CLOPIDOGREL BISULFATE 75 MG TABLET PO SCH (09:39)
[2016-12-17] MEDS: ISOSORBIDE MONONITRATE 30 MG TAB.ER.24H PO SCH (09:39)
[2016-12-17] MEDS: GABAPENTIN 300 MG CAPSULE PO SCH ×2 (09:39→21:12)
[2016-12-17] MEDS: CITALOPRAM HYDROBROMIDE 20 MG TABLET PO SCH (09:40)
[2016-12-17] MEDS: HUM INSULIN NPH/REG INSULIN HM 100 UNIT/1 ML 3 ML SUBCUT SCH ×2 (09:40→17:33)
[2016-12-17] MEDS: INSULIN LISPRO 100 UNIT/ML 3 ML VIAL SUBCUT PRN ×2 (11:43→21:14)
--- NOTE | 2016-12-17 17:11 | PDOC PROGRESS REPORT ---
Subjective Progress Note for:: 12/17/16 Subjective:: Patient is seen on morning rounds. She is sitting on the side of the bed eating breakfast. She states she feels "so-so" , she was complaining of pain in her left knee. She states the nurse gave her Tylenol and it does feel better now. She denies any shortness of breath, chest pain or dyspnea. She denies abdominal pain, nausea or vomiting. She denies any other complaints at present time. Rest of review systems is negative. Physical Exam Vital Signs: Temp Pulse Resp BP Pulse Ox 98.5 F 82 16 153/67 H 96 12/16/16 23:57 12/17/16 14:00 12/16/16 23:57 12/17/16 00:00 12/16/16 23:57 Intake & Output 12/16/16 12/17/16 12/18/16 06:59 06:59 06:59 Intake Total 1292 205 660 Output Total 300 1215 Balance 992 -1010 660 Weight 100.5 kg 100.1 kg General appearance: PRESENT: no acute distress, obese, well-developed, well- nourished Head exam: PRESENT: atraumatic, normocephalic Eye exam: PRESENT: conjunctiva pink, EOMI, PERRLA. ABSENT: scleral icterus Ear exam: PRESENT: normal external ear exam Mouth exam: PRESENT: moist, tongue midline Neck exam: ABSENT: carotid bruit, JVD, lymphadenopathy, thyromegaly Respiratory exam: PRESENT: clear to auscultation carmen. ABSENT: rales, rhonchi, wheezes Cardiovascular exam: PRESENT: RRR. ABSENT: diastolic murmur, rubs, systolic murmur Pulses: PRESENT: normal [place] pedis pul Vascular exam: PRESENT: normal capillary refill GI/Abdominal exam: PRESENT: normal bowel sounds, soft. ABSENT: distended, guarding, mass, organolmegaly, rebound, tenderness Rectal exam: PRESENT: deferred Extremities exam: PRESENT: full ROM. ABSENT: calf tenderness, clubbing, pedal edema Musculoskeletal exam: PRESENT: ambulatory, full ROM, normal inspection Neurological exam: PRESENT: alert, awake, oriented to person, oriented to place , oriented to time, oriented to situation, CN II-XII grossly intact. ABSENT: motor sensory deficit Psychiatric exam: PRESENT: appropriate affect, normal mood. ABSENT: homicidal ideation, suicidal ideation Skin exam: PRESENT: dry, intact, warm. ABSENT: cyanosis, rash Results Laboratory Results: 12/16/16 04:29 12/16/16 04:29 Impressions: Abdomen/Pelvis CT 12/09/16 00:00 IMPRESSION: NO SIGNIFICANT OR ACUTE FINDING IN THE ABDOMEN OR PELVIS ON CT SCAN WITH IV CONTRAST. Abdomen Ultrasound 12/15/16 00:00 IMPRESSION: Moderate hepatic steatosis. No acute findings. Limitation. Assessment & Plan - Diagnosis (1) Abdominal pain Qualifiers: Abdominal location: generalized Qualified Code(s): R10.84 - Generalized abdominal pain Is this a current diagnosis for this admission?: YesPlan: Patient had initially had nausea and vomiting. This is resolved. She underwent EGD which showed gastritis. He was started on PPI therapy. The pain has resolved. (2) Leukocytosis Qualifiers: Leukocytosis type: leukemoid reaction Qualified Code(s): D72.823 - Leukemoid reaction Is this a current diagnosis for this admission?: YesPlan: Patient seen by hematology who feels this is chronic with this patient. She does have an urinary tract infection which should be treated. The patient and did not feel there is any hematologic cause for her leukocytosis. (3) UTI (urinary tract infection) Qualifiers: Urinary tract infection type: site unspecified Hematuria presence: without hematuria Qualified Code(s): N39.0 - Urinary tract infection, site not specified Is this a current diagnosis for this admission?: YesPlan: continue antibiotic therapy. (4) Loose stools Is this a current diagnosis for this admission?: YesPlan: Patient denies diarrhea the present time. C. difficile is negative (5) Diastolic CHF Qualifiers: Congestive heart failure chronicity: chronic Qualified Code(s): I50.32 - Chronic diastolic (congestive) heart failure Is this a current diagnosis for this admission?: YesPlan: Patient at present appears euvolemic. (6) Obesity (BMI 30-39.9) Is this a current diagnosis for this admission?: YesPlan: Counseled (7) HTN (hypertension) Qualifiers: Hypertension type: essential hypertension Qualified Code(s): I10 - Essential (primary) hypertension Is this a current diagnosis for this admission?: YesPlan: Continue current medications patient is normotensive. (8) CAD (coronary artery disease) Qualifiers: Coronary Disease-Associated Artery/Lesion type: [place] artery [place] vs. transplanted heart: [place] heart Associated angina: without angina Qualified Code(s): I25.10 - Atherosclerotic heart disease of [place] coronary artery without angina pectoris Is this a current diagnosis for this admission?: YesPlan: Continue current medications. - Time Time Spent with patient: 25-34 minutes Critical Time spent with patient: 15-24 minutes Medications reviewed and adjusted accordingly: Yes Anticipated discharge: Home with Homehealth Within: within 24 hours
[2016-12-18] MEDS: HEPARIN SOD (PORCINE) 5,000 UNIT/ML 1 ML SYRINGE SUBCUT SCH ×2 (06:19→13:28)
[2016-12-18] MEDS: ACETAMINOPHEN 325 MG TABLET PO PRN (09:01)
[2016-12-18] MEDS: CLOPIDOGREL BISULFATE 75 MG TABLET PO SCH (09:03)
[2016-12-18] MEDS: ISOSORBIDE MONONITRATE 30 MG TAB.ER.24H PO SCH (09:03)
[2016-12-18] MEDS: ASPIRIN 81 MG TABLET, CHEWABLE PO SCH (09:03)
[2016-12-18] MEDS: LANSOPRAZOLE 30 MG TAB.RAP.DR PO SCH (09:03)
[2016-12-18] MEDS: NITROFURANTOIN MONOHYD/M-CRYST 100 MG CAPSULE PO SCH (09:03)
[2016-12-18] MEDS: METOPROLOL TARTRATE 100 MG TABLET PO SCH (09:04)
[2016-12-18] MEDS: GABAPENTIN 300 MG CAPSULE PO SCH (09:04)
[2016-12-18] MEDS: CITALOPRAM HYDROBROMIDE 20 MG TABLET PO SCH (09:04)
[2016-12-18] MEDS: INSULIN LISPRO 100 UNIT/ML 3 ML VIAL SUBCUT PRN ×2 (09:06→12:39)
[2016-12-18] MEDS: HUM INSULIN NPH/REG INSULIN HM 100 UNIT/1 ML 3 ML SUBCUT SCH (09:08)
[2016-12-18] MEDS ORDERED: LACTOBACILLUS ACIDOPHILUS 250 MG TAB PO ONE (10:30)
[2016-12-18 13:07] VITALS: BP 115/54
--- NOTE | 2016-12-18 14:19 | PDOC DISCHARGE SUMMARY ---
General - Admit/Disc Date/PCP Admission Date/Primary Care Provider: 12/10/16 02:13 SOFI GUERRIER MD Discharge Date: 12/18/16 - Discharge Diagnosis (1) Abdominal pain Is this a current diagnosis for this admission?: YesSummary: Secondary to gastritis per EGD. Will continue Prevacid daily for the next month. (2) Leukocytosis Is this a current diagnosis for this admission?: YesSummary: Appears chronic. Urinalysis looked like UTI. Culture was negative. (3) UTI (urinary tract infection) Is this a current diagnosis for this admission?: YesSummary: Macrobid bid for the next 3 days. (4) Loose stools Is this a current diagnosis for this admission?: YesSummary: Lactobacillus two times daily until antibiotics complete. C diff negative (5) Diastolic CHF Is this a current diagnosis for this admission?: YesSummary: Continue current medications (6) Obesity (BMI 30-39.9) Is this a current diagnosis for this admission?: YesSummary: Counseled on weight management. Increasing daily exercise (7) HTN (hypertension) Is this a current diagnosis for this admission?: YesSummary: Normotensive on current medications (8) CAD (coronary artery disease) Is this a current diagnosis for this admission?: YesSummary: Continue current medications. Patient is chest pain free - Additional Information Resuscitation Status: Full Code Discharge Diet: Cardiac, Diabetic Discharge Activity: Activity As Tolerated, Balance Activity w/Rest Home Medications: Aspirin [Aspirin 81 mg Chewable Tablet] 81 mg PO DAILY 12/10/16 Citalopram Hydrobromide [Celexa 40 mg Tablet] 40 mg PO DAILY 12/10/16 Clopidogrel Bisulfate [Plavix 75 mg Tablet] 75 mg PO DAILY 12/10/16 Docusate Sodium [Colace 100 mg Capsule] 100 mg PO BID 12/10/16 Gabapentin [Neurontin 300 mg Capsule] 300 mg PO Q12 12/10/16 Insulin Aspart Protam & Aspart [Novolog Mix 70-30 Flexpen Syrn] 60 units SQ BID 12/10/16 Isosorbide Mononitrate [Imdur 30 mg Tablet.er] 30 mg PO DAILY 12/10/16 Losartan Potassium [Cozaar 50 mg Tablet] 50 mg PO DAILY 12/10/16 Metoprolol Tartrate [Lopressor 100 mg Tablet] 100 mg PO Q12 12/10/16 Oxycodone HCl/Acetaminophen [Percocet 5-325 mg Tablet] 1 tab PO Q6HP PRN Rosuvastatin Calcium [Crestor 10 mg Tablet] 10 mg PO DAILY 12/10/16 Sitagliptin Phosphate [Januvia] 100 mg PO DAILY 12/10/16 Trazodone HCl [Desyrel 50 mg Tablet] 50 mg PO HSP PRN 12/10/16 Acetaminophen [Tylenol 325 mg Tablet] 650 mg PO Q6HP PRN tablet 12/18/16 Aspirin [Aspirin 81 mg Chewable Tablet] 81 mg PO DAILY tab.chew 12/18/16 Lactobacillus Acidophilus [Probiotic Gold Acidophilus] 1 each PO BID #10 capsule 12/18/16 Lansoprazole [Prevacid 30 mg Odt Tablet] 30 mg PO ACBRKFST #30 tab.sandi. Nitrofurantoin Monohyd/M-Cryst [Macrobid 100 mg Capsule] 100 mg PO Q12 #6 capsule 12/18/16 History of Present Illness Patient complains of: Abdominal pain and nausea History of Present Illness: ORACIO PEDROZA is a 81 year old female with a past medical history of diabetes, recurrent urinary tract infection, coronary artery disease, hypertension, CVA and persistent leukocytosis despite extensive workup with hematology. Patient been her usual state of health until approximately 12 hours prior to presentation having generalized abdominal pain constipation for at least 3 days nausea with vomiting of gastric content only no fever chills prompting his seek evaluation emergency room she's found to have leukocytosis of 29,007 bands. She started on empiric antibiotic's per presumptive urinary tract infection as she is recently initiated Macrobid for presumed urinary tract infection. Urine culture pending, chest x-ray, CT abdomen pelvis unremarkable. She denies headache stiff neck rhinorrhea headache sore throat cough or chest pain. Hospital Course Hospital Course: Patient was referred to the hospitalist for admission. She is admitted to telemetry. She had GI consult for abdominal pain. Dr. Kurtz, saw the patient in consult. The following day he took her for an EGD. EGD showed diffuse gastritis. Biopsies were obtained to rule out H. pylori. Patient was started on Prevacid. She was slow to progress. She was continued on IV Rocephin for UTI. Blood cultures and urine cultures grew no organisms. Antibiotic was changed to Macrobid. She had some problems with diarrhea. This C. difficile cultures were obtained. These were negative. She was started on lactobacillus with her antibiotic therapy. Today she feels well she feels ready for discharge. 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 Physical Exam Vital Signs: Temp Pulse Resp BP Pulse Ox 98.0 F 66 20 132/71 H 95 12/18/16 07:42 12/18/16 07:42 12/18/16 07:42 12/18/16 07:42 12/18/16 07:42 Intake & Output 12/17/16 12/18/16 12/19/16 06:59 06:59 06:59 Intake Total 205 1260 Output Total 1215 Balance -1010 1260 Weight 100.1 kg 98.5 kg General appearance: PRESENT: no acute distress, obese, well-developed, well- nourished Head exam: PRESENT: atraumatic, normocephalic Eye exam: PRESENT: conjunctiva pink, EOMI, PERRLA. ABSENT: scleral icterus Ear exam: PRESENT: normal external ear exam Mouth exam: PRESENT: moist, tongue midline Neck exam: PRESENT: carotid bruit Respiratory exam: PRESENT: clear to auscultation carmen. ABSENT: rales, rhonchi, wheezes Cardiovascular exam: PRESENT: RRR. ABSENT: diastolic murmur, rubs, systolic murmur Pulses: PRESENT: normal dorsalis pedis pul Vascular exam: PRESENT: normal capillary refill GI/Abdominal exam: PRESENT: normal bowel sounds, soft. ABSENT: distended, guarding, mass, organolmegaly, rebound, tenderness Rectal exam: PRESENT: deferred Extremities exam: PRESENT: full ROM. ABSENT: calf tenderness, clubbing, pedal edema Neurological exam: PRESENT: alert, awake, oriented to person, oriented to place , oriented to time, oriented to situation, CN II-XII grossly intact. ABSENT: motor sensory deficit Psychiatric exam: PRESENT: appropriate affect, normal mood. ABSENT: homicidal ideation, suicidal ideation Skin exam: PRESENT: dry, intact, warm. ABSENT: cyanosis, rash Results Laboratory Results: 12/16/16 04:29 12/16/16 04:29 Impressions: Abdomen/Pelvis CT 12/09/16 00:00 IMPRESSION: NO SIGNIFICANT OR ACUTE FINDING IN THE ABDOMEN OR PELVIS ON CT SCAN WITH IV CONTRAST. Abdomen Ultrasound 12/15/16 00:00 IMPRESSION: Moderate hepatic steatosis. No acute findings. Limitation. Qualifiers PATEINT BEING DISCHARGED WITH ANY OF THE FOLLOWING DIAGNOSIS?: No Plan Discharge Plan: Home with daughter, resume home health Time Spent: Less than 30 Minutes
== END 2016-12-18 14:45 | disposition home health service (06) | DRG 690 ==
LOC: ER 16:50 → EH 12-10 02:08 → UNDOADMIN 12-10 02:08 → EH 12-10 02:13 → 4N 12-10 03:34
PROVIDERS: ADMIT Internal Medicine; ATTEND Internal Medicine
PROC: 0DB68ZX Excision of Stomach, Via Natural or Artificial Opening Endoscopic, Diagnostic (ICD-10-PCS; principal; 2016-12-14 17:00)
DX: N39.0 Urinary tract infection, site not specified (principal); I50.32 Chronic diastolic (congestive) heart failure; K29.00 Acute gastritis without bleeding; I25.10 Atherosclerotic heart disease of native coronary artery without angina pectoris; I11.0 Hypertensive heart disease with heart failure; E11.9 Type 2 diabetes mellitus without complications; K21.9 Gastro-esophageal reflux disease without esophagitis; R19.7 Diarrhea, unspecified; K80.80 Other cholelithiasis without obstruction; F32.9 Major depressive disorder, single episode, unspecified; E66.01 Morbid (severe) obesity due to excess calories; F41.8 Other specified anxiety disorders; Z79.82 Long term (current) use of aspirin; Z79.4 Long term (current) use of insulin; Z79.01 Long term (current) use of anticoagulants; Z79.899 Other long term (current) drug therapy; Z87.891 Personal history of nicotine dependence; Z88.1 Allergy status to other antibiotic agents; Z88.0 Allergy status to penicillin; Z68.36 Body mass index [BMI] 36.0-36.9, adult
CPT/HCPCS: 36415; 43239; 51701; 74177; 76705; 80048; 80053; 81001; 82550; 82553; 82962; 83605; 83690; 84484; 85025; 85652; 87040; 87086; 87493; 88305; 88342; 93005; 93010; 96361; 96365; 96375; 99285; J0171; J0360; J0713; J1200; J1335; J1610; J1644; J1815; J1885; J2020; J2250; J2310; J2405; J3010; J3490; J7030; J8499

== ENCOUNTER 2016-12-19 20:07 | Emergency (ER) | payer MEDICARE, OTHER ==
--- NOTE | 2016-12-19 21:03 | ER Document Report ---
ED General - General Chief Complaint: Loose Stools Stated Complaint: ABDOMINAL PAIN Notes: Patient is an 81-year-old male with long-standing history of a prominent leukocytosis with an associated bandemia was recently admitted to the hospital and admitted for a total of 7 days with concerns of dark stools, diarrhea and a prominent leukocytosis. She had upper endoscopy which demonstrated duodenitis but was otherwise unremarkable. She was treated for possible urinary tract infection and discharged home. She is currently followed by hematology for her known leukocytosis. She states she return to emergency department today because her symptoms have not resolved since being discharged home one to be sure that everything was still okay. She denies anything is new or different today she does not feeling worse than when she was discharged home. Denies any focal abdominal pain but states that she does have intermittent diffuse abdominal cramping. She denies any chest pain, shortness of breath, nausea, vomiting. She has not had a fever. Nothing improves or worsens or symptoms. TRAVEL OUTSIDE OF THE [place] IN LAST 30 DAYS: No - Related Data Allergies/Adverse Reactions: amoxicillin Allergy (Intermediate, Verified 11/11/16 10:33) Penicillins Allergy (Verified 11/11/16 10:33) Past Medical History - General Information source: Patient - Social History Smoking Status: Former Smoker Chew tobacco use (# tins/day): No Frequency of alcohol use: None Drug Abuse: None Lives with: Family Family History: CAD, COPD, DM, Hyperlipidemia, Hypertension, Malignancy - Father with lung cancer, Other Patient has suicidal ideation: No Patient has homicidal ideation: No - Past Medical History Cardiac Medical History: Reports: Hx Congestive Heart Failure, Hx Heart Attack - EKG suggests probable prior infarction, Hx Hypercholesterolemia, Hx Hypertension Neurological Medical History: Denies: Hx Seizures Endocrine Medical History: Reports: Hx Diabetes Mellitus Type 2 Renal/ Medical History: Denies: Hx End Stage Renal Disease, Hx Peritoneal Dialysis GI Medical History: Reports: Hx Gastroesophageal Reflux Disease Musculoskeltal Medical History: Reports Hx Arthritis, Reports Hx Musculoskeletal Deformity Psychiatric Medical History: Reports: Hx Anxiety, Hx Depression Past Surgical History: Reports: Hx Abdominal Surgery, Hx Appendectomy, Hx Hysterectomy, Hx Tonsillectomy, Other - Cardiac loop recorder, bilateral cataract surgery - Immunizations Hx Diphtheria, Pertussis, Tetanus Vaccination: No Hx Pneumococcal Vaccination: 04/29/13 Review of Systems - Review of Systems Notes: Constitutional: Negative for fever. HENT: Negative for sore throat. Eyes: Negative for visual changes. Cardiovascular: Negative for chest pain. Respiratory: Negative for shortness of breath. Gastrointestinal: Positive for abdominal pain and diarrhea Genitourinary: Negative for dysuria. Musculoskeletal: Negative for back pain. Skin: Negative for rash. Neurological: Negative for headaches, weakness or numbness. 10 point ROS negative except as marked above and in HPI. Physical Exam - Vital signs Vitals: BP 158/78 H 12/19/16 20:16 Interpretation: Normal Notes: PHYSICAL EXAMINATION: GENERAL: Well-appearing, well-nourished and in no acute distress. HEAD: Atraumatic, normocephalic. EYES: Pupils equal round and reactive to light, extraocular movements intact, sclera anicteric, conjunctiva are normal. ENT: nares patent, oropharynx clear without exudates. Moist mucous membranes. NECK: Normal range of motion, supple without lymphadenopathy LUNGS: Breath sounds clear to auscultation bilaterally and equal. No wheezes rales or rhonchi. HEART: Regular rate and rhythm without murmurs ABDOMEN: Soft, nontender, normoactive bowel sounds. No guarding, no rebound. No masses appreciated. EXTREMITIES: Normal range of motion, no pitting or edema. No cyanosis. NEUROLOGICAL: No focal neurological deficits. Moves all extremities spontaneously and on command. PSYCH: Normal mood, normal affect. SKIN: Warm, Dry, normal turgor, no rashes or lesions noted. Course - Re-evaluation Re-evalutation: 12/19/16 21:02 Patient re-presents to the hospital after being discharged just yesterday for the same complaints. She continues to have dark stools and states that she continues to have intermittent diffuse abdominal pain. She had an extensive evaluation during her hospitalization including hematology consultation, gastroenterology consultation, and endoscopy, CT of abdomen and pelvis, right upper quadrant ultrasound, and repeat laboratories. It appears that she has a chronic leukocytosis of unclear etiology. She was diagnosed as having gastroduodenitis and this likely constant her dark stools. At time of assessment the patient appears in no distress, no neurologic deficits, no focal abdominal pain. She does have mild tachycardia but is otherwise not having any vital sign abnormalities. I suspect this is ongoing presentation of her gastroduodenitis and she will not likely require readmission to the hospital. Will obtain basic laboratories and reassess. 12/19/16 22:40 Patient has not had any additional bowel movements here in the emergency department. She remains hemodynamically within normal limits, no distress. No focal abdominal pain. Her laboratories are unchanged from prior. She does have a prominent leukocytosis without bandemia. I did call and discuss this increased bandemia and leukocytosis relative to discharge with our electrical power station technician field contact technician Dr. Mercer and he did not feel this needed any further workup or follow -up as patient is chronically had a leukocytosis often with an associated bandemia for the past several years and has had an extensive hematologic workup for this.At this time will discharge with return precautions and follow-up recommendations. Verbal discharge instructions given a the bedside and opportunity for questions given. Medication warnings reviewed. Patient is in agreement with this plan and has verbalized understanding of return precautions and the need for primary care follow-up in the next 24-72 hours. - Vital Signs Vital signs: Temp Pulse Resp BP Pulse Ox 98.4 F 94 16 167/97 H 94 12/19/16 20:25 12/19/16 22:51 12/19/16 22:51 12/19/16 22:51 12/19/16 22:51 - Laboratory Result Diagrams: 12/19/16 20:54 12/19/16 20:54 Laboratory results interpreted by me: 12/19/16 12/19/16 20:54 20:54 WBC 32.0 H* RBC 7.58 H Hct 49.9 H MCV 66 L MCH 20.0 L MCHC 30.4 L RDW 22.1 H Band Neutrophils % 12 H Lymphocytes % (Manual) 4 L Abs Neuts (Manual) 28.2 H Abs Monocytes (Manual) 1.9 H BUN 21 H Glucose 247 H Alkaline Phosphatase 222 H Creatine Kinase < 20 L Lipase 350.8 H - Diagnostic Test Radiology reviewed: Image reviewed, Reports reviewed Radiology results interpreted by me: 12/20/16 03:24 Chest x-ray: No acute infiltrate - EKG Interpretation by Me Additional EKG results interpreted by me: 12/20/16 03:29 Normal sinus rhythm. Rate 99. No ST elevations or depressions. QTC is 437. Discharge - Discharge Clinical Impression: Bandemia Abdominal pain Qualifiers: Abdominal location: generalized Qualified Code(s): R10.84 - Generalized abdominal pain Leukocytosis Qualifiers: Leukocytosis type: unspecified Qualified Code(s): D72.829 - Elevated white blood cell count, unspecified Condition: Fair Disposition: HOME, SELF-CARE Additional Instructions: Your labs today are unchanged from the time of discharge. Your ongoing dark stool is likely related to the upper intestinal inflammation that was seen on your upper GI scope will your last in the hospital. Please continue to take the medications that you were discharged home with. Turning for any additional concerns she may have including a fever of greater than 100.4F, persistent vomiting, passing out, or any other symptoms that are worrisome to you. Referrals: SOFI GUERRIER MD [Primary Care Provider] - Follow up as needed
[2016-12-19 21:13] LABS: HEMATOCRIT 49.9 % (36.0-47.0); HEMOGLOBIN 15.2 g/dL (12.0-15.5); MEAN CORPUSCULAR HGB CONC 30.4 g/dL (32.0-36.0); MEAN CORPUSCULAR VOLUME 66 fl (80-97); RED BLOOD COUNT 7.58 10^6/uL (3.72-5.28); RED CELL DISTRIBUTION WIDTH 22.1 % (11.5-14.0)
[2016-12-19 21:32] LABS: ALANINE AMINOTRANSFERASE 21 U/L (9-52); ALBUMIN 4.1 g/dL (3.5-5.0); ALKALINE PHOSPHATASE 222 U/L (38-126); ANION GAP 12 (5-19); ASPARTATE AMINO TRANSFERASE 23 U/L (14-36); BILIRUBIN,DIRECT 0.2 mg/dL (0.0-0.4); BILIRUBIN,TOTAL 1.1 mg/dL (0.2-1.3); BLOOD UREA NITROGEN 21 mg/dL (7-20); CALCIUM 9.5 mg/dL (8.4-10.2); CARBON DIOXIDE 26 mmol/L (22-30); CHLORIDE 103 mmol/L (98-107); CREATININE RESULT 0.74 mg/dL (0.52-1.25); GLUCOSE 247 mg/dL (75-110); LIPASE 350.8 U/L (23-300); POTASSIUM 4.6 mmol/L (3.6-5.0); SODIUM 140.9 mmol/L (137-145); TOTAL PROTEIN 7.5 g/dL (6.3-8.2)
[2016-12-19 21:33] LABS: CREATINE KINASE < 20 U/L (30-135)
[2016-12-19 21:42] LABS: HGB HCT DIFFERENCE -4.3
[2016-12-19 21:43] LABS: CREATINE KINASE MB 0.49 ng/mL (<4.55)
[2016-12-19 21:46] LABS: TROPONIN I < 0.012 ng/mL
[2016-12-19 21:47] LABS: BASOPHILS % (MANUAL) 0 % (0-2); EOSINOPHILS % (MANUAL) 0 % (0-6); LYMPHOCYTES % (MANUAL) 4 % (13-45); TOTAL CELLS COUNTED 100
[2016-12-19 21:52] LABS: ANISOCYTOSIS 3+; HYPOCHROMASIA 1+; MICROCYTOSIS 3+; POIKILOCYTOSIS 1+; POLYCHROMASIA 1+
[2016-12-19 21:53] LABS: OVALOCYTES 1+; TARGET CELLS SLIGHT; TEAR DROP CELLS SLIGHT
[2016-12-19 21:59] LABS: BAND NEUTROPHILS % (MANUAL) 12 % (3-5)
[2016-12-19 22:51] VITALS: BP 167/97
--- NOTE | 2016-12-20 10:47 | EKG REPORT ---
SEVERITY:- ABNORMAL ECG - SINUS RHYTHM CONSIDER ANTEROSEPTAL INFARCT BORDERLINE PROLONGED QT INTERVAL : Confirmed by: Bud Medina 20-Dec-2016 10:46:51
[2016-12-20 16:27] LABS: PATH REVIEW PATHOLOGIST REVIEWED
== END 2016-12-19 22:51 | disposition home or self-care (01) ==
LOC: ER 20:07
DX: D72.825 Bandemia (principal); R10.84 Generalized abdominal pain; D72.829 Elevated white blood cell count, unspecified; R19.7 Diarrhea, unspecified; Z87.891 Personal history of nicotine dependence
CPT/HCPCS: 36415; 71010; 80053; 82550; 82553; 83690; 84484; 85025; 93005; 93010; 99284

== ENCOUNTER 2017-01-16 19:06 | Inpatient (IN) | payer MEDICARE, OTHER ==
[2017-01-16] MEDS ORDERED: ONDANSETRON HCL INJ/PF 4 MG/2 ML SDV IV ONE (19:53)
[2017-01-16] MEDS ORDERED: MORPHINE SULFATE 10 MG/ML INJ IV ONE ×3 (19:53→22:33)
--- NOTE | 2017-01-16 19:55 | ER Document Report ---
ED GI/ - General Stated Complaint: ABDOMINAL PAIN Time Seen by Provider: 01/16/17 19:44 Notes: Patient is an 81-year-old female that comes from home by EMS for chief complaint of vomiting and middle abdominal pain that has worsened throughout today. She states she has become progressively more uncomfortable and now is only mildly comfortable if she lies on her side. She denies radiation to her back, she denies chest pain, she denies shortness of breath she had a bowel movement yesterday. After taking a stool softener, she states she thought she was just constipated. Past medical history includes type 2 diabetes, GERD, hypertension, coronary artery disease, Plavix use, hysterectomy, appendectomy, and gallstones. TRAVEL OUTSIDE OF THE [place] IN LAST 30 DAYS: No - Related Data Allergies/Adverse Reactions: amoxicillin Allergy (Intermediate, Verified 01/17/17 06:19) Penicillins Allergy (Verified 01/17/17 06:19) Home Medications: Current Home Medications Aspirin [Ecotrin 81 mg EC Tablet] 81 mg PO DAILY 01/17/17 [History] Clopidogrel Bisulfate [Plavix 75 mg Tablet] 75 mg PO DAILY 01/17/17 [History] Gabapentin [Neurontin 300 mg Capsule] 300 mg PO Q12 01/17/17 [History] Isosorbide Mononitrate [Isosorbide Mononitrate ER] 30 mg PO DAILY 01/17/17 [ History] Losartan Potassium [Cozaar 50 mg Tablet] 50 mg PO DAILY 01/17/17 [History] Metoprolol Tartrate [Lopressor 100 mg Tablet] 100 mg PO Q12 01/17/17 [History] Rosuvastatin Calcium [Crestor 10 mg Tablet] 10 mg PO DAILY 01/17/17 [History] Sitagliptin Phosphate [Januvia] 100 mg PO DAILY 01/17/17 [History] Past Medical History - General Information source: Patient, Relative - Social History Smoking Status: Never Smoker Frequency of alcohol use: None Drug Abuse: None Lives with: Family Family History: CAD, COPD, DM, Hyperlipidemia, Hypertension, Malignancy - Father with lung cancer, Other - Past Medical History Cardiac Medical History: Reports: Hx Congestive Heart Failure, Hx Heart Attack - EKG suggests probable prior infarction, Hx Hypercholesterolemia, Hx Hypertension Neurological Medical History: Denies: Hx Seizures Endocrine Medical History: Reports: Hx Diabetes Mellitus Type 2 Renal/ Medical History: Denies: Hx End Stage Renal Disease, Hx Peritoneal Dialysis GI Medical History: Reports: Hx Gastroesophageal Reflux Disease Musculoskeltal Medical History: Reports Hx Arthritis, Reports Hx Musculoskeletal Deformity Psychiatric Medical History: Reports: Hx Anxiety, Hx Depression Past Surgical History: Reports: Hx Abdominal Surgery, Hx Appendectomy, Hx Hysterectomy, Hx Tonsillectomy, Other - Cardiac loop recorder, bilateral cataract surgery - Immunizations Hx Diphtheria, Pertussis, Tetanus Vaccination: No Hx Pneumococcal Vaccination: 04/29/13 Review of Systems - Review of Systems Constitutional: See HPI EENT: No symptoms reported Cardiovascular: No symptoms reported Respiratory: No symptoms reported Gastrointestinal: See HPI Genitourinary: See HPI Female Genitourinary: No symptoms reported Musculoskeletal: No symptoms reported Skin: No symptoms reported Hematologic/Lymphatic: No symptoms reported Neurological/Psychological: No symptoms reported Physical Exam - Vital signs Vitals: BP 218/98 H 01/16/17 22:29 Interpretation: Normal - General General appearance: Anxious In distress: Mild - Patient is uncomfortable in appearance but not in severe distress - HEENT Head: Normocephalic, Atraumatic Eyes: Normal Pupils: PERRL - Respiratory Respiratory status: No respiratory distress Chest status: Nontender Breath sounds: Normal. No: Decreased air movement, Wheezing Chest palpation: Normal - Cardiovascular Rhythm: Regular, Tachycardia - Borderline Heart sounds: Normal auscultation, S1 appreciated, S2 appreciated Murmur: No - Abdominal Inspection: Normal Distension: No distension Bowel sounds: Normal Tenderness: Tender - There is noted tenderness throughout the abdomen on examination, there is no particular area of guarding, no rebound tenderness, no rigidity - Back Back: Normal, Nontender. No: Tender - Extremities General upper extremity: Normal inspection, Nontender, Normal color, Normal ROM , Normal temperature General lower extremity: Normal inspection, Nontender, Normal color, Normal ROM , Normal temperature, Normal weight bearing. No: Cynthia's sign - Neurological Neuro grossly intact: Yes Cognition: Normal Orientation: AAOx4 [place] Coma Scale Eye Opening: Spontaneous [place] Coma Scale Verbal: Oriented Ziyad Coma Scale Motor: Obeys Commands Ziyad Coma Scale Total: 15 Speech: Normal Motor strength normal: LUE, RUE, LLE, RLE Sensory: Normal - Psychological Associated symptoms: Anxious - Skin Skin Temperature: Warm Skin Moisture: Dry Skin Color: Normal Course - Re-evaluation Re-evalutation: Patient vomited and had loose stools in the bed, unfortunately this was not able to be collected before I had the chance to make the request. Patient with abdominal tenderness throughout, seems slightly worse in the upper abdomen but patient has recently vomited. No area of specific guarding. No fever. Patient initially very uncomfortable appearing, this improved after medications. CBC shows marked leukocytosis, however this is only slightly higher than her normal average range and this is normally very elevated, she states she has been worked up by an oncologist with no specific diagnosis given. Chemistry generally unremarkable. Urinalysis showing some white blood cells but is generally nonspecific. Still unable to get another stool sample. Ultrasound with no acute abnormality, CAT scan performed, CAT scan showing colitis. Starting Levaquin, Flagyl, patient is intermittently still nauseated and uncomfortable but is improved on appearance. Still hypertensive, will give a small dose of labetalol because patient throughout her beta-lashell earlier today. Patient was discussed with Dr. Irby. Discussed with Dr. Schmidt, internal medicine, patient will be admitted to the hospital. - Vital Signs Vital signs: Temp Pulse Resp BP Pulse Ox 98.3 F 96 18 157/86 H 93 01/17/17 16:19 01/17/17 18:32 01/17/17 06:39 01/17/17 16:19 01/17/17 16:19 - Laboratory Result Diagrams: 01/17/17 17:05 01/17/17 06:57 Laboratory results interpreted by me: 01/16/17 01/16/17 01/16/17 21:23 21:23 23:21 WBC 33.8 H* RBC 8.13 H Hct 53.3 H MCV 66 L MCH 19.0 L MCHC 29.0 L RDW 22.2 H Seg Neuts % (Manual) 86 H Lymphocytes % (Manual) 3 L Monocytes % (Manual) 2 L Abs Neuts (Manual) 30.4 H Absolute Eos (Manual) 0.7 H Abs Basophils (Manual) 0.3 H Sodium 146.2 H Glucose 159 H Alkaline Phosphatase 202 H Creatine Kinase 27 L Total Protein 8.3 H Ur Leukocyte Esterase SMALL H Discharge - Discharge Clinical Impression: Colitis, Uncontrolled hypertension Vomiting Qualifiers: Vomiting type: unspecified Vomiting Intractability: non-intractable Nausea presence: with nausea Qualified Code(s): R11.2 - Nausea with vomiting, unspecified Abdominal pain Qualifiers: Abdominal location: generalized Qualified Code(s): R10.84 - Generalized abdominal pain Admitting Provider: Hospitalist Unit Admitted: [facility]
[2017-01-16 21:59] LABS: ALANINE AMINOTRANSFERASE 21 U/L (9-52); ALBUMIN 4.3 g/dL (3.5-5.0); ALKALINE PHOSPHATASE 202 U/L (38-126); ANION GAP 12 (5-19); ASPARTATE AMINO TRANSFERASE 27 U/L (14-36); BILIRUBIN,DIRECT 0.3 mg/dL (0.0-0.4); BLOOD UREA NITROGEN 19 mg/dL (7-20); CALCIUM 9.7 mg/dL (8.4-10.2); CARBON DIOXIDE 29 mmol/L (22-30); CHLORIDE 105 mmol/L (98-107); CREATINE KINASE 27 U/L (30-135); GLUCOSE 159 mg/dL (75-110); LIPASE 234.1 U/L (23-300); POTASSIUM 3.8 mmol/L (3.6-5.0); SODIUM 146.2 mmol/L (137-145); TOTAL PROTEIN 8.3 g/dL (6.3-8.2)
[2017-01-16 22:04] LABS: HEMATOCRIT 53.3 % (36.0-47.0); HEMOGLOBIN 15.5 g/dL (12.0-15.5); MEAN CORPUSCULAR VOLUME 66 fl (80-97); RED BLOOD COUNT 8.13 10^6/uL (3.72-5.28); RED CELL DISTRIBUTION WIDTH 22.2 % (11.5-14.0)
[2017-01-16 22:10] LABS: CREATINE KINASE MB 0.54 ng/mL (<4.55)
[2017-01-16 22:12] LABS: TROPONIN I < 0.012 ng/mL
[2017-01-16 22:15] LABS: HGB HCT DIFFERENCE -6.8
[2017-01-16] MEDS ORDERED: NORMAL SALINE 1000 ML 1,000 ML IV ONE (22:19)
[2017-01-16 22:21] LABS: BAND NEUTROPHILS % (MANUAL) 4 % (3-5); BASOPHILS % (MANUAL) 1 % (0-2); EOSINOPHILS % (MANUAL) 2 % (0-6); LYMPHOCYTES % (MANUAL) 3 % (13-45); TOTAL CELLS COUNTED 100
[2017-01-16 22:26] LABS: ANISOCYTOSIS 3+; HYPOCHROMASIA 1+; MICROCYTOSIS 2+; POIKILOCYTOSIS 2+; POLYCHROMASIA SLIGHT
[2017-01-16 22:27] LABS: PLATELET CLUMPS PRESENT; TARGET CELLS SLIGHT; TEAR DROP CELLS SLIGHT; TOXIC VACUOLATION PRESENT
[2017-01-16 22:28] LABS: WHITE BLOOD COUNT 33.8 10^3/uL (4.0-10.5)
[2017-01-16 23:39] LABS: APPEARANCE,URINE CLEAR; BILIRUBIN,URINE NEGATIVE (NEGATIVE); GLUCOSE, URINE NEGATIVE (NEGATIVE); KETONES,URINE NEGATIVE (NEGATIVE); LEUKOCYTE ESTERASE,URINE SMALL (NEGATIVE); NITRITE,URINE NEGATIVE (NEGATIVE); PROTEIN,URINE NEGATIVE (NEGATIVE); URINE SPECIFIC GRAVITY 1.021; UROBILINOGEN,URINE NEGATIVE mg/dL (<2.0)
[2017-01-17] MEDS ORDERED: LEVOFLOXACIN 750 MG/D5W RTU 150 ML IV ONE (00:01)
[2017-01-17] MEDS ORDERED: METRONIDAZOLE 500 MG/NS RTU 100 ML IV ONE ×2 (00:02→08:00)
[2017-01-17] MEDS ORDERED: LABETALOL HCL INJ 20 MG/4 ML DISP.SYRIN IV ONE (00:56)
[2017-01-17] MEDS ORDERED: DEXTROSE 40% GEL 15 GM TUBE PO PRN ×2 (06:20)
[2017-01-17] MEDS ORDERED: DEXTROSE 50%-WATER 25 GM/50 ML DISP.SYRIN IV PRN ×2 (06:20)
[2017-01-17] MEDS ORDERED: GLUCAGON,HUMAN RECOMB 1 MG INJ IM PRN (06:20)
[2017-01-17] MEDS: 1/2 NORMAL SALINE 1,000 ML IV PRN ×2 (07:05→17:54)
--- NOTE | 2017-01-17 07:16 | PDOC H&P ---
History of Present Illness Admission Date/PCP: 01/17/17 01:41 SOFI GUERRIER MD Patient complains of: abd pain History of Present Illness: ORACIO PEDROZA is a 81 year old female with no chronic GI tract complaints or problems who presents to the emergency room for evaluation of approximately 24 hour history or so of multiple episodes of nonbloody nausea and vomiting, with associated combination cramping and sharp mid abdominal pain. Nothing in particular makes the pain worse; feels a bit better when she lays on her left side. Has had several diarrhea stools since coming to the emergency room, with a small amount of blood in 1 or 2 stools. Stool observed in the bedside toilet. No fever or chills. Denies chest pain. No prior such episodes. No personal history of Crohn's disease, ulcerative colitis, inflammatory bowel disease, or irritable bowel syndrome. No recent antibiotic use. No history of C. difficile infection. Blood pressure was rather elevated upon initial presentation to the emergency room, primarily because patient had not taken her blood pressure medicine earlier in the day. readings are much more reasonable after treatment in the emergency room. Chronic leukocytosis of uncertain etiology. Patient states workup was undertaken by Dr. Mercer, with no final etiology determined. He told her to come back on an as-needed basis. Patient has been discussed with emergency room physician who evaluated the patient. Laboratory results are listed in [facility] and are reviewed. X-ray summary results are listed below, with full report(s) reviewed. EKG reviewed and compared to a prior tracing from the of last month.. Social history/personal habits: . Lives with daughter. Retired. No use of alcohol tobacco or illicit drugs. Allergies/adverse reactions are listed in [facility] and are reviewed. No problems with Rocephin. Home medications initially autopopulated into [employer] may not accurately reflect patient's true medications, dosages, and/or frequencies. 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 Unfortunately, patient not certain of all medications/dosages/frequencies. REVIEW OF SYSTEMS: Constitutional: No fever or chills. Eyes: Wears glasses. ENT: No swallowing problems or complaints. No hearing difficulties. Pulmonary: No current complaints. Cardiovascular: No current complaints, including chest pain. Gastrointestinal: See history and present illness. Skin: No current complaints, including rashes. Hematologic: Easy bruising. Neurologic: Mild ambulatory dysfunction as a result of 2 prior strokes. Musculoskeletal: Joint pain from arthritis. Psychiatric: Mild anxiety and depression; denies suicidal or homicidal ideation. Endocrine: No current complaints, including polyuria. Genitourinary: No current complaints, including dysuria. PHYSICAL EXAMINATION: 5 feet 5 inches tall. 97.7 kg. BMI 35.8 kg/m. Blood pressure 146/64. Pulse 103 and regular. 95% saturation on room air. Respirations are 14 and unlabored. Temperature 98.5. Obese otherwise well-developed female who appears a bit younger than her stated age. Pleasant awake alert and cooperative. Appears to feel a bit under the weather, so to speak. Mildly anxious, without agitation. Skin is warm and dry. No grossly obvious evidence of rash in areas of skin examined. No subcutaneous nodules palpated. ENT: Hearing grossly normal to normal conversation. Tongue midline on protrusion pink and slightly tacky. Eyes: No scleral icterus. Pupils equal and reactive to light at 4 mm. [place] conjunctivae. Neck is supple and nontender to gentle active range of motion and palpation. Midline trachea. No palpable thyroid nodule mass enlargement or tenderness. Lymphatic: No palpable cervical or clavicular nodes. Neck and lymphatic exams limited by patient body habitus. Psychiatric: Reasonable insight into acute and chronic medical issues. Oriented to time location and why here. Lungs: Auscultation reveals clear and equal breath sounds bilaterally. No use of accessory respiratory muscles. Cardiovascular: Heart regular rate and rhythm, without gallop murmur or rub. No carotid or abdominal aortic bruits. No ankle or pedal edema. Faintly palpable dorsalis pedis pulses. Abdomen:soft, somewhat obese, slightly distended with positive bowel sounds. Scant diffuse tenderness to palpation. Certainly no evidence of guarding or peritoneal signs. Unable to adequately evaluate abdomen for masses or organomegaly due to body habitus and distention. Extremities: Feet are warm and dry. No calf tenderness to compression. No grossly obvious visual evidence of calf swelling. Gentle manipulation of lower extremities fails to reveal any obvious evidence of injury or instability to knees hips or ankles. Neurologic: Moves upper extremities grossly normally. Patellar reflexes absent. Absent Babinski. Light touch is intact at feet. Dorsiflexion and plantarflexion of feet 5 / 5 and symmetric. 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 GI Medical History: Denies: Cirrhosis, Hepatitis, Peptic Ulcer Disease Musculoskeltal Medical History: Reports: Arthritis Skin Medical History: Denies: Eczema, Psoriasis Psychiatric Medical History: Reports: Depression, General Anxiety Disorder Denies: Alcohol Dependency, Substance Abuse, Tobacco Dependency Hematology: Reports: Other - Easy bruising Infectious Medical History: Reports: Methicillin-Resistant Staph Aureus - Quite distant history Denies: Clostridium Difficile, Hepatitis B, Hepatitis C Past Surgical History Past Surgical History: Reports: Appendectomy, Hysterectomy, Tonsillectomy, Other - Cardiac loop recorder, bilateral cataract surgery Social History Smoking Status: Unknown if Ever Smoked Frequency of Alcohol Use: None Hx Recreational Drug Use: No Drugs: None Hx Prescription Drug Abuse: No - Advance Directive Resuscitation Status: Full Code Surrogate healthcare decision maker:: daughter Family History Family History: CAD, COPD, DM, Hyperlipidemia, Hypertension, Malignancy - Father with lung cancer, Other Parental Family History Reviewed: Yes - Father of lung cancer; mother also of cancer. Children Family History Reviewed: Yes - Daughter is healthy Sibling(s) Family History Reviewed.: Yes - Medication/Allergy Home Medications: Aspirin [Ecotrin 81 mg EC Tablet] 81 mg PO DAILY 01/17/17 Clopidogrel Bisulfate [Plavix 75 mg Tablet] 75 mg PO DAILY 01/17/17 Gabapentin [Neurontin 300 mg Capsule] 300 mg PO Q12 01/17/17 Isosorbide Mononitrate [Isosorbide Mononitrate ER] 30 mg PO DAILY 01/17/17 Losartan Potassium [Cozaar 50 mg Tablet] 50 mg PO DAILY 01/17/17 Metoprolol Tartrate [Lopressor 100 mg Tablet] 100 mg PO Q12 01/17/17 Rosuvastatin Calcium [Crestor 10 mg Tablet] 10 mg PO DAILY 01/17/17 Sitagliptin Phosphate [Januvia] 100 mg PO DAILY 01/17/17 Allergies/Adverse Reactions: amoxicillin Allergy (Intermediate, Verified 01/17/17 06:19) Penicillins Allergy (Verified 01/17/17 06:19) Physical Exam Vital Signs: Temp Pulse Resp BP Pulse Ox 98.5 F 101 H 16 139/96 H 96 01/17/17 06:03 01/17/17 06:03 01/17/17 06:03 01/17/17 06:03 01/17/17 06:03 Intake & Output 01/16/17 01/17/17 01/18/17 00:59 00:59 00:59 Weight 97.7 kg Results Impressions: Abdomen/Pelvis CT 01/16/17 00:00 IMPRESSION: There is thickening of the john of the distal sigmoid colon, splenic flexure, and proximal descending colon which has the appearance of a colitis. Increased density in the dependent portion of the gallbladder lumen which could represent biliary sludge or tiny gallstones. Clinical correlation is recommended. Other findings as noted above. Abdomen Ultrasound 01/16/17 19:53 IMPRESSION: Somewhat limited study as noted above. No significant interval change. Fatty infiltration of the liver. Other findings as noted above Assessment & Plan - Diagnosis (1) Diarrhea Qualifiers: Diarrhea type: unspecified type Qualified Code(s): R19.7 - Diarrhea , unspecified Is this a current diagnosis for this admission?: YesPlan: Stool for C. difficile (2) Hypernatremia Is this a current diagnosis for this admission?: YesPlan: Likely due to an element of dehydration. Appropriate IV fluid. Follow-up chemistry. (3) Diabetes mellitus type 1 Qualifiers: Diabetes mellitus complication status: without complication Qualified Code(s): E10.9 - Type 1 diabetes mellitus without complications Is this a current diagnosis for this admission?: YesPlan: Ice chips. Accu-Cheks with appropriate sliding scale coverage. Resume home medications as appropriate once these have been determined and reviewed. (4) Abnormal urinalysis Is this a current diagnosis for this admission?: YesPlan: Urine culture (5) Hypertensive urgency Is this a current diagnosis for this admission?: Yes (6) Leukocytosis Qualifiers: Leukocytosis type: unspecified Qualified Code(s): D72.829 - Elevated white blood cell count, unspecified Is this a current diagnosis for this admission?: Yes (7) Colitis Is this a current diagnosis for this admission?: YesPlan: Intravenous Cipro and Flagyl. Ice chips. I have strongly encouraged patient not to get out of bed without notifying staff , to avoid a fall with injury. Knee high SCDs for DVT prophylaxis, along with subcutaneous Lovenox. Impression and plans were discussed with patient who concurs. Time spent in evaluation and management of patient: 62 minutes. - Inpatient Certification Based on my medical assessment, after consideration of the patient's comorbidities, presenting symptoms, or acuity I expect that the services needed warrant INPATIENT care.: Yes I certify that my determination is in accordance with my understanding of Medicare's requirements for reasonable and necessary INPATIENT services [42 CFR 412.3e].: Yes Medical Necessity: Need Close Monitoring Due to Risk of Patient Decompensation, Need For IV Fluids, Need for IV Antibiotics, Risk of Complication if Not Cared For in Hospital Post Hospital Care: D/C or Transfer Summary
[2017-01-17 07:19] LABS: ANION GAP 10 (5-19); BLOOD UREA NITROGEN 15 mg/dL (7-20); CARBON DIOXIDE 26 mmol/L (22-30); CHLORIDE 105 mmol/L (98-107); CREATININE RESULT 0.74 mg/dL (0.52-1.25); GLUCOSE 196 mg/dL (75-110); MAGNESIUM 1.6 mg/dL (1.6-2.3); SODIUM 141.2 mmol/L (137-145)
[2017-01-17 07:20] LABS: HEMOGLOBIN 15.5 g/dL (12.0-15.5); MEAN CORPUSCULAR HEMOGLOBIN 19.6 pg (27.0-33.4); MEAN CORPUSCULAR HGB CONC 29.7 g/dL (32.0-36.0); MEAN CORPUSCULAR VOLUME 66 fl (80-97); RED CELL DISTRIBUTION WIDTH 21.8 % (11.5-14.0)
[2017-01-17 07:43] LABS: HGB HCT DIFFERENCE -5.5
[2017-01-17 07:45] LABS: RED BLOOD COUNT 7.91 10^6/uL (3.72-5.28)
[2017-01-17 07:54] LABS: BAND NEUTROPHILS % (MANUAL) 4 % (3-5); BASOPHILS % (MANUAL) 0 % (0-2); EOSINOPHILS % (MANUAL) 0 % (0-6); LYMPHOCYTES % (MANUAL) 2 % (13-45); TOTAL CELLS COUNTED 100
[2017-01-17] MEDS ORDERED: METRONIDAZOLE 500 MG/NS RTU 100 ML IV SCH (08:00)
[2017-01-17] MEDS ORDERED: ENOXAPARIN SODIUM INJ 40 MG/0.4 ML DISP.SYRIN SUBCUT SCH (08:00)
[2017-01-17 08:01] LABS: TOXIC VACUOLATION PRESENT
[2017-01-17 08:03] LABS: ANISOCYTOSIS 2+; HYPOCHROMASIA 1+; POIKILOCYTOSIS 1+; TEAR DROP CELLS SLIGHT
[2017-01-17 08:04] LABS: OVALOCYTES 1+
[2017-01-17 08:10] LABS: MICROCYTOSIS 2+
--- NOTE | 2017-01-17 09:04 | EKG REPORT ---
SEVERITY:- ABNORMAL ECG - SINUS TACHYCARDIA CONSIDER LEFT VENTRICULAR HYPERTROPHY ANTERIOR Q WAVES, POSSIBLY DUE TO OLD ANTERIOR NM : Confirmed by: Adam Bah MD 17-Jan-2017 09:04:02
[2017-01-17] MEDS ORDERED: ONDANSETRON HCL INJ/PF 4 MG/2 ML SDV IV PRN (09:27)
[2017-01-17] MEDS: ONDANSETRON 4 MG TAB.RAPDIS PO PRN (09:58)
[2017-01-17] MEDS ORDERED: CIPROFLOXACIN 400 MG/D5W RTU 200 ML IV SCH (10:00)
[2017-01-17] MEDS ORDERED: LACTOBACILLUS ACIDOPHILUS 250 MG TAB PO ONE (12:15)
[2017-01-17 15:08] LABS: PATH REVIEW PATHOLOGIST REVIEWED
--- NOTE | 2017-01-17 15:34 | Physician Advisory Note ---
Physician Advisor ProgressNote .: [facility] I have reviewed [facility] medical record for this patient. Physician Advisor Statement: Very nice documentation of HTN-william urgency, hypernatremia likely due to dehydration. Dx's to consider documentin. Please clarify DM type - H&P states type 1 DM, ED note says DM-2. Pt 81yo without any signif CKD.... 2. "Chronic diastolic CHF w/mild pulmonary HTN" 3. "steatohepatitis" Status: 81yo pt w/acute C.diff colitis, DM-__, chr diast CHF, CAD, HTN, GERD, chronic leukocytosis among other dx.s. (+) HTN-william urgency initially, persistent tachycardia ever since arrival mostly >100, so VS not stable. Hypernatremia improved w/tx. Now w/BRBPR w/BM this AM. Tx'ing w/IVF, Flagyl, ... Appropriate for Inpt status - here x 1MN so far & not sufficiently stabilized for safe d/c. CK
[2017-01-17] MEDS: LACTOBACILLUS ACIDOPHILUS 250 MG TAB PO SCH (16:47)
[2017-01-17 17:21] LABS: HEMATOCRIT 54.3 % (36.0-47.0); HEMOGLOBIN 15.8 g/dL (12.0-15.5); MEAN CORPUSCULAR HEMOGLOBIN 19.3 pg (27.0-33.4); MEAN CORPUSCULAR HGB CONC 29.2 g/dL (32.0-36.0); MEAN CORPUSCULAR VOLUME 66 fl (80-97); RED CELL DISTRIBUTION WIDTH 22.5 % (11.5-14.0)
--- NOTE | 2017-01-17 17:23 | PROGRESS NOTE E ---
Progress Note NAME: ORACIO PEDROZA : 1935 AGE: 81Y DATE: 01/17/2017 ROOM: 329 SUBJECTIVE: The patient is lying in bed. She states that she does feel better than when she came in. The patient has had a recent course of antibiotics given a UTI. Subsequently the patient has had significant diarrhea which is now positive for C difficile. The patient has had some blood-tinged diarrhea but has not had any yuliet bleeding. The patient denies any nausea, vomiting. No shortness of breath, dizziness, chest pain. No fevers, chills. The patient has been afebrile, blood pressure has been in a good range, the patient does not voice any other concerns at this time. REVIEW OF SYSTEMS: The rest of the review of systems is negative. MEDICATIONS: Medications have been reviewed. OBJECTIVE: GENERAL: The patient is a very pleasant 81-year-old female who is awake, alert and oriented to person, place, time, and situation. She is verbal, conversational, ambulatory, does not appear to be in any acute distress. VITAL SIGNS: As follows: Temperature is 98.0, pulse 96, respirations , blood pressure is 138/92, oxygen saturation is 94% on room air. SKIN: Warm and dry. No rash. Not diaphoretic. HEENT: Pupils equal, round, reactive to light and accommodation. Conjunctiva is pink. NECK: No JVD. CARDIOVASCULAR SYSTEM: Heart is regular. There is no murmur or rub. CHEST: Clear, symmetrical, unlabored. ABDOMEN: Soft, nontender, nondistended. BACK: No CVA tenderness, sacral edema. EXTREMITIES: No clubbing, cyanosis, edema. PSYCHIATRIC: Appropriate affect. Pleasant mood. NEUROLOGICALLY: Intact. DIAGNOSTICS: Lab values are as follows: Hematology obtained on 01/17/2017; WBCs are 32,000, hemoglobin is 15, hematocrit is 52, platelets are 230,000. Chemistry obtained on 01/17/2017: Sodium is 141, potassium 4.0, chloride is 105, carbon dioxide 26, BUN 15, creatinine is 0.74, glucose 196, calcium is 9.0, magnesium is 1.6. Blood cultures obtained on 01/17/2017 are pending. Urine culture obtained on 01/16/2017 is pending. IMPRESSION AND PLAN: 1. CLOSTRIDIUM DIFFICILE COLITIS. This appears to be the patient's initial episode of this. Will start the patient on Flagyl and add probiotic therapy and encourage yogurt on each tray. 2. BRIGHT-RED BLEEDING PER RECTUM. This has appeared to be resolving. Will repeat a hemoglobin. The patient has had no pain. Will follow. 3. LEUKOCYTOSIS. This is chronic and has been followed by Dr. Mercer outpatient; however, it is elevated even for her. Therefore, I feel that this is just a response to the C difficile and most likely underlying SIRS versus sepsis component. 4. DIASTOLIC DYSFUNCTION. The patient now appears optivolemic. 5. HYPERTENSION. Blood pressure has been in a decent range. Will resume home blood pressure medications once reconciled. 6. CORONARY ARTERY DISEASE. Will continue the patient's home medications once reconciled. 7. DIABETES MELLITUS TYPE 2 AND OBESE. Will continue home medications once reconciled. 8. DVT PROPHYLAXIS. Will add SCDs, hold the Lovenox given the patient's recent rectal bleeding. DISPOSITION: The patient is a FULL CODE. Pending patient's symptomatology and diagnostic findings, will re-evaluate in the a.m. Time spent on this followup including assessment, plan, physical examination, patient education, extensive review of previous records is 35 minutes. DICTATING PHYSICIAN: SARAI HARRELL NP [id number] PHY#: [id number] ID: [id number] JOB#: [id number] ACCT: [id number] cc:SARAI HARRELL NP > MTDD
[2017-01-17 17:47] LABS: HGB HCT DIFFERENCE -6.9
[2017-01-17 17:48] LABS: WHITE BLOOD COUNT 31.6 10^3/uL (4.0-10.5)
[2017-01-17 17:49] LABS: RED BLOOD COUNT 8.18 10^6/uL (3.72-5.28)
[2017-01-17] MEDS: INSULIN LISPRO 100 UNIT/ML 3 ML VIAL SUBCUT PRN ×2 (18:07→22:19)
[2017-01-18] MEDS: 1/2 NORMAL SALINE 1,000 ML IV PRN (02:46)
[2017-01-18] MEDS: ACETAMINOPHEN 325 MG TABLET PO PRN (06:06)
[2017-01-18 06:38] LABS: MEAN CORPUSCULAR HEMOGLOBIN 19.8 pg (27.0-33.4); MEAN CORPUSCULAR HGB CONC 30.1 g/dL (32.0-36.0); MEAN CORPUSCULAR VOLUME 66 fl (80-97); RED CELL DISTRIBUTION WIDTH 22.2 % (11.5-14.0); WHITE BLOOD COUNT 25.5 10^3/uL (4.0-10.5)
[2017-01-18 06:50] LABS: ANION GAP 11 (5-19); BLOOD UREA NITROGEN 9 mg/dL (7-20); CALCIUM 8.7 mg/dL (8.4-10.2); CARBON DIOXIDE 26 mmol/L (22-30); CHLORIDE 103 mmol/L (98-107); CREATININE RESULT 0.58 mg/dL (0.52-1.25); GLUCOSE 212 mg/dL (75-110); MAGNESIUM 1.8 mg/dL (1.6-2.3); SODIUM 139.5 mmol/L (137-145)
[2017-01-18] MEDS ORDERED: POTASSI CL 20 MEQ/D5-1/2NS 1L 1,000 ML IV PRN (07:40)
[2017-01-18] MEDS ORDERED: NORMAL SALINE 1000 ML 1,000 ML IV PRN (07:40)
[2017-01-18] MEDS: INSULIN LISPRO 100 UNIT/ML 3 ML VIAL SUBCUT PRN ×4 (08:17→21:59)
[2017-01-18] MEDS: METRONIDAZOLE 500 MG/NS RTU 100 ML IV SCH ×3 (08:18→20:53)
[2017-01-18] MEDS ORDERED: SITAGLIPTIN PHOSPHATE 50 MG TABLET PO SCH (10:00)
[2017-01-18] MEDS: ISOSORBIDE MONONITRATE 30 MG TAB.ER.24H PO SCH (10:29)
[2017-01-18] MEDS: GABAPENTIN 300 MG CAPSULE PO SCH ×2 (10:29→21:05)
[2017-01-18] MEDS: METOPROLOL TARTRATE 100 MG TABLET PO SCH ×2 (10:30→21:05)
[2017-01-18] MEDS: LACTOBACILLUS ACIDOPHILUS 250 MG TAB PO SCH ×2 (10:31→17:16)
[2017-01-18] MEDS: SITAGLIPTIN PHOSPHATE 50 MG TABLET PO SCH (10:41)
[2017-01-18] MEDS: VANCOMYCIN HCL INJ 500 MG VIAL PO SCH ×3 (12:43→23:23)
[2017-01-18] MEDS: CEFTRIAXONE 1 GM/D5W RTU 1 GM/50 ML RTUPB IV SCH (14:25)
[2017-01-18] MEDS: LINEZOLID 600 MG TABLET PO SCH (17:16)
--- NOTE | 2017-01-18 17:45 | PDOC PROGRESS REPORT ---
Subjective Progress Note for:: 01/18/17 Subjective:: Patient has had several episodes of diarrhea. Patient reports that she is feeling somewhat better though. Patient denies fever, chills, chest pain, shortness of breath, continued vomiting, constipation, edema, no onset weakness. Patient admits to slight abdominal tenderness and nausea. Patient's nurse did report she spoke of having some pain in her right hand. Physical Exam Vital Signs: Temp Pulse Resp BP Pulse Ox 97.9 F 82 20 119/61 96 01/18/17 15:48 01/18/17 15:48 01/18/17 15:48 01/18/17 15:48 01/18/17 15:48 Intake & Output 01/17/17 01/18/17 01/19/17 06:59 06:59 06:59 Intake Total 3867 473 Output Total 1800 Balance 2067 473 Weight 99 kg 100.5 kg Exam: GENERAL: Awake, alert, oriented 3;no acute distress HEENT: Atraumatic, normocephalic, conjunctiva clear, nonicteric, moist mucous membranes, no JVD, midline trachea RESPIRATORY: Clear to auscultation bilaterally, no wheezes, no rhonchi CARDIAC: Regular rate and rhythm, no murmurs/gallops/rubs ABDOMEN: Soft, nondistended, nontender, hyperactive bowel sounds, no rebound, no guarding, rigidity EXTREMETIES: No edema, cyanosis, clubbing NEUROLOGIC: Alert, oriented to person/place/time, CN's grossly intact, no focal deficits PSYCH: Normal mood, normal affect Results Laboratory Results: 01/18/17 05:18 01/18/17 05:18 01/17/17 01/18/17 01/18/17 17:05 05:18 05:18 WBC 31.6 H* 25.5 H RBC 8.18 H 7.60 H Hgb 15.8 H 15.0 Hct 54.3 H 50.0 H MCV 66 L 66 L MCH 19.3 L 19.8 L MCHC 29.2 L 30.1 L RDW 22.5 H 22.2 H Plt Count 239 221 Sodium 139.5 Potassium 4.0 Chloride 103 Carbon Dioxide 26 Anion Gap 11 BUN 9 Creatinine 0.58 Est GFR ( Amer) > 60 Est GFR (Non-Af Amer) > 60 Glucose 212 H Calcium 8.7 Magnesium 1.8 Impressions: Abdomen/Pelvis CT 01/16/17 00:00 IMPRESSION: There is thickening of the john of the distal sigmoid colon, splenic flexure, and proximal descending colon which has the appearance of a colitis. Increased density in the dependent portion of the gallbladder lumen which could represent biliary sludge or tiny gallstones. Clinical correlation is recommended. Other findings as noted above. Abdomen Ultrasound 01/16/17 19:53 IMPRESSION: Somewhat limited study as noted above. No significant interval change. Fatty infiltration of the liver. Other findings as noted above Assessment & Plan - Diagnosis (1) Sepsis Qualifiers: Sepsis type: sepsis due to unspecified organism Qualified Code(s): A41.9 - Sepsis, unspecified organism Is this a current diagnosis for this admission?: YesPlan: Patient met criteria on admission with leukocytosis and tachycardia. Patient's source is C. difficile colitis as well as UTI. (2) C. difficile colitis Is this a current diagnosis for this admission?: YesPlan: Patient is on Flagyl day #2 and will add Vancocin starting today. (3) Diabetes mellitus type II, controlled Qualifiers: Diabetes mellitus complication status: with circulatory complication Diabetes mellitus complication detail: with other circulatory complications Diabetes mellitus residential insulin use: with termite technician use Qualified Code(s): E11.59 - Type 2 diabetes mellitus with other circulatory complications Is this a current diagnosis for this admission?: YesPlan: Resume patient on home Januvia and continue sliding scale insulin. (4) UTI (urinary tract infection) Qualifiers: Urinary tract infection type: site unspecified Hematuria presence: without hematuria Qualified Code(s): N39.0 - Urinary tract infection, site not specified Is this a current diagnosis for this admission?: YesPlan: Patient has a history of Enterococcus faecalis group D and E coli. Based on prior sensitivities will initiate patient on linezolid and Rocephin. (5) Diastolic CHF Qualifiers: Congestive heart failure chronicity: chronic Qualified Code(s): I50.32 - Chronic diastolic (congestive) heart failure Is this a current diagnosis for this admission?: Yes (6) HTN (hypertension) Qualifiers: Hypertension type: essential hypertension Qualified Code(s): I10 - Essential (primary) hypertension Is this a current diagnosis for this admission?: Yes (7) Hyperlipidemia Qualifiers: Hyperlipidemia type: unspecified Qualified Code(s): E78.5 - Hyperlipidemia, unspecified Is this a current diagnosis for this admission?: YesPlan: Continue statin (8) Morbid obesity Qualifiers: Obesity type: due to excess calories Qualified Code(s): E66.01 - Morbid (severe) obesity due to excess calories Is this a current diagnosis for this admission?: Yes (9) Hypernatremia Is this a current diagnosis for this admission?: YesPlan: Secondary to intravascular volume depletion improved. (10) Anxiety and depression Is this a current diagnosis for this admission?: Yes (11) CAD (coronary artery disease) Qualifiers: Coronary Disease-Associated Artery/Lesion type: [place] artery [place] vs. transplanted heart: [place] heart Associated angina: without angina Qualified Code(s): I25.10 - Atherosclerotic heart disease of [place] coronary artery without angina pectoris Is this a current diagnosis for this admission?: No (12) DVT prophylaxis Is this a current diagnosis for this admission?: YesPlan: Patient is occult blood positive. We will be cautious when administering DVT prophylaxis. Mita and LIAN beauchamp. - Time Time Spent with patient: 25-34 minutes Medications reviewed and adjusted accordingly: Yes Anticipated discharge: Home with Homehealth Within: within 48 hours
[2017-01-18 19:32] LABS: APPEARANCE,URINE CLEAR; BILIRUBIN,URINE NEGATIVE (NEGATIVE); GLUCOSE, URINE 50 mg/dL (NEGATIVE); KETONES,URINE NEGATIVE (NEGATIVE); LEUKOCYTE ESTERASE,URINE MODERATE (NEGATIVE); NITRITE,URINE NEGATIVE (NEGATIVE); PROTEIN,URINE NEGATIVE (NEGATIVE); URINE SPECIFIC GRAVITY 1.011; UROBILINOGEN,URINE NEGATIVE mg/dL (<2.0)
[2017-01-18] MEDS: ATORVASTATIN CALCIUM 20 MG TABLET PO SCH (21:05)
[2017-01-19] MEDS: METRONIDAZOLE 500 MG/NS RTU 100 ML IV SCH ×4 (04:00→20:45)
[2017-01-19] MEDS: VANCOMYCIN HCL INJ 500 MG VIAL PO SCH ×4 (05:09→23:11)
[2017-01-19] MEDS: LINEZOLID 600 MG TABLET PO SCH ×2 (05:10→18:06)
[2017-01-19] MEDS: INSULIN LISPRO 100 UNIT/ML 3 ML VIAL SUBCUT PRN ×4 (07:59→22:08)
[2017-01-19] MEDS: ONDANSETRON 4 MG TAB.RAPDIS PO PRN (08:08)
[2017-01-19] MEDS: GABAPENTIN 300 MG CAPSULE PO SCH ×2 (10:05→21:15)
[2017-01-19] MEDS: LACTOBACILLUS ACIDOPHILUS 250 MG TAB PO SCH ×2 (10:05→18:06)
[2017-01-19] MEDS: METOPROLOL TARTRATE 100 MG TABLET PO SCH ×2 (10:05→21:15)
[2017-01-19] MEDS: SITAGLIPTIN PHOSPHATE 50 MG TABLET PO SCH (10:06)
[2017-01-19] MEDS: ISOSORBIDE MONONITRATE 30 MG TAB.ER.24H PO SCH (10:06)
[2017-01-19] MEDS ORDERED: HYDRALAZINE HCL INJ/PF 20 MG/1 ML SDV IV PRN (12:41)
[2017-01-19] MEDS ORDERED: FUROSEMIDE INJ/PF 20 MG/2 ML SDV IV ONE (13:15)
[2017-01-19] MEDS ORDERED: MAG HYDROX/AL HYDROX/SIMETH SUSP 30 ML UDCUP PO ONE (13:15)
[2017-01-19] MEDS: PROMETHAZINE HCL 25 MG TABLET PO PRN (13:30)
[2017-01-19] MEDS: CEFTRIAXONE 1 GM/D5W RTU 1 GM/50 ML RTUPB IV SCH (13:31)
[2017-01-19] MEDS ORDERED: LIDOCAINE 2% VISCOUS SOLN 20 ML UDCUP PO ONE (14:00)
[2017-01-19] MEDS: ATORVASTATIN CALCIUM 20 MG TABLET PO SCH (21:15)
--- NOTE | 2017-01-19 21:19 | PDOC PROGRESS REPORT ---
Subjective Progress Note for:: 01/19/17 Subjective:: Patient has had several episodes of diarrhea. Patient reports that she is feeling somewhat better though But does complain of nausea. Patient denies fever, chills, chest pain, shortness of breath, continued vomiting, constipation, edema, no onset weakness. Physical Exam Vital Signs: Temp Pulse Resp BP Pulse Ox 97.8 F 80 20 126/90 H 95 01/19/17 03:51 01/19/17 03:51 01/19/17 03:51 01/19/17 03:51 01/19/17 03:51 Intake & Output 01/18/17 01/19/17 01/20/17 06:59 06:59 06:59 Intake Total 3867 2424 Output Total 1800 5 Balance 2066 349 Weight 100.5 kg 100.1 kg Exam: GENERAL: Awake, alert, oriented 3; no acute distress HEENT: Atraumatic, normocephalic, conjunctiva clear, nonicteric, moist mucous membranes, no JVD, midline trachea RESPIRATORY: Clear to auscultation bilaterally, no wheezes, no rhonchi CARDIAC: Regular rate and rhythm, no murmurs/gallops/rubs ABDOMEN: Soft, nondistended, nontender, hyperactive bowel sounds, no rebound, no guarding, rigidity EXTREMETIES: No edema, cyanosis, clubbing NEUROLOGIC: Alert, oriented to person/place/time, CN's grossly intact, no focal deficits PSYCH: Normal mood, normal affect Results Laboratory Results: 01/18/17 05:18 01/18/17 05:18 01/18/17 17:30 Urine Color YELLOW Urine Appearance CLEAR Urine pH 6.0 Ur Specific [place] 1.011 Urine Protein NEGATIVE Urine Glucose (UA) 50 H Urine Ketones NEGATIVE Urine Blood SMALL H Urine Nitrite NEGATIVE Ur Leukocyte Esterase MODERATE H Urine WBC (Auto) 29 Urine RBC (Auto) 1 Impressions: Abdomen/Pelvis CT 01/16/17 00:00 IMPRESSION: There is thickening of the john of the distal sigmoid colon, splenic flexure, and proximal descending colon which has the appearance of a colitis. Increased density in the dependent portion of the gallbladder lumen which could represent biliary sludge or tiny gallstones. Clinical correlation is recommended. Other findings as noted above. Abdomen Ultrasound 01/16/17 19:53 IMPRESSION: Somewhat limited study as noted above. No significant interval change. Fatty infiltration of the liver. Other findings as noted above Assessment & Plan - Diagnosis (1) Sepsis Qualifiers: Sepsis type: sepsis due to unspecified organism Qualified Code(s): A41.9 - Sepsis, unspecified organism Is this a current diagnosis for this admission?: YesPlan: Patient met criteria on admission with leukocytosis and tachycardia. Patient's source is C. difficile colitis as well as UTI. (2) C. difficile colitis Is this a current diagnosis for this admission?: YesPlan: Patient is on Flagyl day #3 and Vancocin day #2 (3) Diabetes mellitus type II, controlled Qualifiers: Diabetes mellitus complication status: with circulatory complication Diabetes mellitus complication detail: with other circulatory complications Diabetes mellitus terminal gauger supervisor insulin use: with group home use Qualified Code(s): E11.59 - Type 2 diabetes mellitus with other circulatory complications Is this a current diagnosis for this admission?: YesPlan: Resume patient on home Januvia and continue sliding scale insulin. (4) UTI (urinary tract infection) Qualifiers: Urinary tract infection type: site unspecified Hematuria presence: without hematuria Qualified Code(s): N39.0 - Urinary tract infection, site not specified Is this a current diagnosis for this admission?: YesPlan: Patient has a history of Enterococcus faecalis group D and E coli. Based on prior sensitivities will initiate patient on linezolid and Rocephin. (5) Diastolic CHF Qualifiers: Congestive heart failure chronicity: chronic Qualified Code(s): I50.32 - Chronic diastolic (congestive) heart failure Is this a current diagnosis for this admission?: Yes (6) HTN (hypertension) Qualifiers: Hypertension type: essential hypertension Qualified Code(s): I10 - Essential (primary) hypertension Is this a current diagnosis for this admission?: YesPlan: Resume Cozaar (7) Hyperlipidemia Qualifiers: Hyperlipidemia type: unspecified Qualified Code(s): E78.5 - Hyperlipidemia, unspecified Is this a current diagnosis for this admission?: Yes (8) Morbid obesity Qualifiers: Obesity type: due to excess calories Qualified Code(s): E66.01 - Morbid (severe) obesity due to excess calories Is this a current diagnosis for this admission?: Yes (9) Hypernatremia Is this a current diagnosis for this admission?: Yes (10) Anxiety and depression Is this a current diagnosis for this admission?: Yes (11) CAD (coronary artery disease) Qualifiers: Coronary Disease-Associated Artery/Lesion type: [place] artery [place] vs. transplanted heart: [place] heart Associated angina: without angina Qualified Code(s): I25.10 - Atherosclerotic heart disease of [place] coronary artery without angina pectoris Is this a current diagnosis for this admission?: No (12) DVT prophylaxis Is this a current diagnosis for this admission?: Yes - Time Time Spent with patient: 25-34 minutes Medications reviewed and adjusted accordingly: Yes
[2017-01-19] MEDS: LOSARTAN POTASSIUM 50 MG TABLET PO SCH (22:09)
[2017-01-20] MEDS: METRONIDAZOLE 500 MG/NS RTU 100 ML IV SCH ×4 (02:33→20:28)
[2017-01-20] MEDS: ONDANSETRON 4 MG TAB.RAPDIS PO PRN (04:26)
[2017-01-20] MEDS: VANCOMYCIN HCL INJ 500 MG VIAL PO SCH ×4 (05:21→23:42)
[2017-01-20] MEDS: LINEZOLID 600 MG TABLET PO SCH ×2 (05:22→17:35)
[2017-01-20 06:16] LABS: HEMATOCRIT 48.1 % (36.0-47.0); HEMOGLOBIN 14.8 g/dL (12.0-15.5); HGB HCT DIFFERENCE -3.7; MEAN CORPUSCULAR HGB CONC 30.7 g/dL (32.0-36.0); MEAN CORPUSCULAR VOLUME 65 fl (80-97); RED CELL DISTRIBUTION WIDTH 21.9 % (11.5-14.0); WHITE BLOOD COUNT 26.2 10^3/uL (4.0-10.5)
[2017-01-20 07:03] LABS: ANION GAP 13 (5-19); BLOOD UREA NITROGEN 13 mg/dL (7-20); CALCIUM 8.7 mg/dL (8.4-10.2); CARBON DIOXIDE 25 mmol/L (22-30); CHLORIDE 100 mmol/L (98-107); CREATININE RESULT 0.69 mg/dL (0.52-1.25); GLUCOSE 258 mg/dL (75-110); MAGNESIUM 1.6 mg/dL (1.6-2.3); POTASSIUM 4.3 mmol/L (3.6-5.0); SODIUM 137.9 mmol/L (137-145)
[2017-01-20 07:18] LABS: RED BLOOD COUNT 7.38 10^6/uL (3.72-5.28)
[2017-01-20 07:19] LABS: BASOPHILS % (MANUAL) 0 % (0-2); EOSINOPHILS % (MANUAL) 0 % (0-6); LYMPHOCYTES % (MANUAL) 2 % (13-45); TOTAL CELLS COUNTED 100
[2017-01-20 07:20] LABS: ANISOCYTOSIS 3+; OVALOCYTES SLIGHT; POIKILOCYTOSIS SLIGHT; POLYCHROMASIA SLIGHT; TEAR DROP CELLS SLIGHT
[2017-01-20] MEDS: INSULIN LISPRO 100 UNIT/ML 3 ML VIAL SUBCUT PRN ×4 (10:13→21:57)
[2017-01-20] MEDS: LACTOBACILLUS ACIDOPHILUS 250 MG TAB PO SCH ×2 (10:15→17:35)
[2017-01-20] MEDS: ASPIRIN 81 MG TABLET, ENT COATED PO SCH (10:16)
[2017-01-20] MEDS: SITAGLIPTIN PHOSPHATE 50 MG TABLET PO SCH (10:16)
[2017-01-20] MEDS: METOPROLOL TARTRATE 100 MG TABLET PO SCH ×2 (10:16→21:07)
[2017-01-20] MEDS: ISOSORBIDE MONONITRATE 30 MG TAB.ER.24H PO SCH (10:17)
[2017-01-20] MEDS: GABAPENTIN 300 MG CAPSULE PO SCH ×2 (10:17→21:06)
[2017-01-20] MEDS: ATORVASTATIN CALCIUM 20 MG TABLET PO SCH (21:06)
[2017-01-20] MEDS: LOSARTAN POTASSIUM 50 MG TABLET PO SCH (21:08)
[2017-01-21] MEDS: METRONIDAZOLE 500 MG/NS RTU 100 ML IV SCH ×4 (02:39→20:14)
[2017-01-21] MEDS: VANCOMYCIN HCL INJ 500 MG VIAL PO SCH ×4 (05:21→23:23)
[2017-01-21] MEDS: LINEZOLID 600 MG TABLET PO SCH (05:21)
[2017-01-21] MEDS: PROMETHAZINE HCL 25 MG TABLET PO PRN (07:25)
[2017-01-21] MEDS ORDERED: METHYLPREDNISOLONE INJ 40 MG/1 ML SDV IV PRN (08:23)
[2017-01-21] MEDS ORDERED: DIPHENHYDRAMINE HCL 50 MG/ML VIAL IV PRN (08:23)
[2017-01-21] MEDS ORDERED: EPINEPHRINE INJ/PF 1 MG/1 ML AMPULE SUBCUT PRN (08:25)
[2017-01-21] MEDS ORDERED: AMPICILLIN TRIHYD 500 MG CAPSULE PO ONE (10:00)
[2017-01-21] MEDS: SITAGLIPTIN PHOSPHATE 50 MG TABLET PO SCH (10:12)
[2017-01-21] MEDS: LACTOBACILLUS ACIDOPHILUS 250 MG TAB PO SCH ×2 (10:12→17:06)
[2017-01-21] MEDS: GABAPENTIN 300 MG CAPSULE PO SCH ×2 (10:12→21:19)
[2017-01-21] MEDS: METOPROLOL TARTRATE 100 MG TABLET PO SCH ×2 (10:13→21:19)
[2017-01-21] MEDS: ASPIRIN 81 MG TABLET, ENT COATED PO SCH (10:13)
[2017-01-21] MEDS: ISOSORBIDE MONONITRATE 30 MG TAB.ER.24H PO SCH (10:13)
[2017-01-21] MEDS: INSULIN LISPRO 100 UNIT/ML 3 ML VIAL SUBCUT PRN ×3 (10:14→21:16)
[2017-01-21 11:16] LABS: WHITE BLOOD COUNT 26.5 10^3/uL (4.0-10.5)
[2017-01-21 11:55] LABS: ADD MANUAL MICRO HEMATOCRIT YES
[2017-01-21 11:56] LABS: MICRO HEMATOCRIT 1 AUTO 37.2 %; MICRO HEMATOCRIT 2 AUTO 45.6 %
[2017-01-21 12:10] LABS: BAND NEUTROPHILS % (MANUAL) 5 % (3-5); BASOPHILS % (MANUAL) 0 % (0-2); EOSINOPHILS % (MANUAL) 1 % (0-6); LYMPHOCYTES % (MANUAL) 2 % (13-45); TOTAL CELLS COUNTED 100
[2017-01-21 12:13] LABS: ANISOCYTOSIS 1+; OVALOCYTES SLIGHT; POIKILOCYTOSIS SLIGHT; POLYCHROMASIA SLIGHT; TOXIC GRANULATION SLIGHT
[2017-01-21] MEDS: AMPICILLIN TRIHYD 500 MG CAPSULE PO SCH ×2 (17:08→23:23)
--- NOTE | 2017-01-21 19:52 | PDOC PROGRESS REPORT ---
Subjective Progress Note for:: 01/20/17 Subjective:: Patient continues to complain of nausea. Patient did have and incontinent stool today, but this was formed according to patient. Patient denies fever, chills, chest pain, shortness of breath, continued vomiting, constipation, edema, no onset weakness. Physical Exam Vital Signs: Temp Pulse Resp BP Pulse Ox 98.2 F 77 20 155/73 H 91 L 01/20/17 04:21 01/20/17 04:21 01/20/17 04:21 01/20/17 04:21 01/20/17 04:21 Intake & Output 01/19/17 01/20/17 01/21/17 06:59 06:59 06:59 Intake Total 2424 1764 Output Total 2079 1900 Balance 349 -136 Weight 100.1 kg 98.9 kg Exam: GENERAL: Awake, alert, oriented 3; no acute distress HEENT: Atraumatic, normocephalic, conjunctiva clear, nonicteric, moist mucous membranes, no JVD, midline trachea RESPIRATORY: Clear to auscultation bilaterally, no wheezes, no rhonchi CARDIAC: Regular rate and rhythm, no murmurs/gallops/rubs ABDOMEN: Soft, nondistended, nontender, active bowel sounds, no rebound, no guarding, rigidity EXTREMETIES: No edema, cyanosis, clubbing NEUROLOGIC: Alert, oriented to person/place/time, CN's grossly intact, no focal deficits PSYCH: Normal mood, normal affect Results Laboratory Results: 01/20/17 05:05 01/20/17 05:05 01/20/17 01/20/17 05:05 05:05 WBC 26.2 H RBC 7.38 H Hgb 14.8 Hct 48.1 H MCV 65 L MCH 20.0 L MCHC 30.7 L RDW 21.9 H Plt Count 265 Seg Neutrophils % Not Reportable Lymphocytes % Not Reportable Monocytes % Not Reportable Eosinophils % Not Reportable Basophils % Not Reportable Absolute Neutrophils Not Reportable Absolute Lymphocytes Not Reportable Absolute Monocytes Not Reportable Absolute Eosinophils Not Reportable Absolute Basophils Not Reportable Sodium 137.9 Potassium 4.3 Chloride 100 Carbon Dioxide 25 Anion Gap 13 BUN 13 Creatinine 0.69 Est GFR ( Amer) > 60 Est GFR (Non-Af Amer) > 60 Glucose 258 H Calcium 8.7 Magnesium 1.6 01/17/17 09:00 Stool - Stool - Final 01/17/17 09:00 Stool - Stool Stool Culture - Final NO SALMONELLA, SHIGELLA, CAMPYLOBACTER, OR E.COLI 0157 RECOVERED. NEGATIVE FOR SHIGA TOXINS 1&2. Impressions: Abdomen/Pelvis CT 01/16/17 00:00 IMPRESSION: There is thickening of the john of the distal sigmoid colon, splenic flexure, and proximal descending colon which has the appearance of a colitis. Increased density in the dependent portion of the gallbladder lumen which could represent biliary sludge or tiny gallstones. Clinical correlation is recommended. Other findings as noted above. Abdomen Ultrasound 01/16/17 19:53 IMPRESSION: Somewhat limited study as noted above. No significant interval change. Fatty infiltration of the liver. Other findings as noted above Assessment & Plan - Diagnosis (1) Sepsis Qualifiers: Sepsis type: sepsis due to unspecified organism Qualified Code(s): A41.9 - Sepsis, unspecified organism Is this a current diagnosis for this admission?: YesPlan: Patient met criteria on admission with leukocytosis and tachycardia. Patient's source is C. difficile colitis as well as UTI. (2) C. difficile colitis Is this a current diagnosis for this admission?: YesPlan: Patient is on Flagyl day #4 and Vancocin day #3 (3) Diabetes mellitus type II, controlled Qualifiers: Diabetes mellitus complication status: with circulatory complication Diabetes mellitus complication detail: with other circulatory complications Diabetes mellitus intermediate insulin use: with termination clerk use Qualified Code(s): E11.59 - Type 2 diabetes mellitus with other circulatory complications Is this a current diagnosis for this admission?: YesPlan: Patient on home Januvia and continue sliding scale insulin. Having increased insulin requirement. (4) UTI (urinary tract infection) Qualifiers: Urinary tract infection type: site unspecified Hematuria presence: without hematuria Qualified Code(s): N39.0 - Urinary tract infection, site not specified Is this a current diagnosis for this admission?: YesPlan: Patient has a history of Enterococcus faecalis group D and E coli. Continue linezolid and stop Rocephin. (5) Diastolic CHF Qualifiers: Congestive heart failure chronicity: chronic Qualified Code(s): I50.32 - Chronic diastolic (congestive) heart failure Is this a current diagnosis for this admission?: Yes (6) HTN (hypertension) Qualifiers: Hypertension type: essential hypertension Qualified Code(s): I10 - Essential (primary) hypertension Is this a current diagnosis for this admission?: Yes (7) Hyperlipidemia Qualifiers: Hyperlipidemia type: unspecified Qualified Code(s): E78.5 - Hyperlipidemia, unspecified Is this a current diagnosis for this admission?: Yes (8) Morbid obesity Qualifiers: Obesity type: due to excess calories Qualified Code(s): E66.01 - Morbid (severe) obesity due to excess calories Is this a current diagnosis for this admission?: Yes (9) Hypernatremia Is this a current diagnosis for this admission?: Yes (10) Anxiety and depression Is this a current diagnosis for this admission?: Yes (11) CAD (coronary artery disease) Qualifiers: Coronary Disease-Associated Artery/Lesion type: [place] artery [place] vs. transplanted heart: [place] heart Associated angina: without angina Qualified Code(s): I25.10 - Atherosclerotic heart disease of [place] coronary artery without angina pectoris Is this a current diagnosis for this admission?: No (12) DVT prophylaxis Is this a current diagnosis for this admission?: Yes - Time Time Spent with patient: 25-34 minutes Medications reviewed and adjusted accordingly: Yes Anticipated discharge: Home Within: within 48 hours
--- NOTE | 2017-01-21 19:56 | PDOC PROGRESS REPORT ---
Subjective Progress Note for:: 01/21/17 Subjective:: Patient continues to complain of nausea. Patient reports several episodes of diarrhea today. Patient does not feel like she is back to her normal self. Patient denies fever, chills, chest pain, shortness of breath, continued vomiting, constipation, edema, no onset weakness. Physical Exam Vital Signs: Temp Pulse Resp BP Pulse Ox 98.0 F 83 18 151/70 H 93 01/21/17 12:02 01/21/17 14:00 01/21/17 12:02 01/21/17 12:02 01/21/17 12:02 Intake & Output 01/20/17 01/21/17 01/22/17 06:59 06:59 06:59 Intake Total 1764 2370 1278 Output Total 1900 3500 Balance -136 -1130 1278 Weight 98.9 kg 100.3 kg Exam: GENERAL: Awake, alert, oriented 3; no acute distress HEENT: Atraumatic, normocephalic, conjunctiva clear, nonicteric, moist mucous membranes, no JVD, midline trachea RESPIRATORY: Clear to auscultation bilaterally, no wheezes, no rhonchi CARDIAC: Regular rate and rhythm, no murmurs/gallops/rubs ABDOMEN: Soft, nondistended, hyper mildly tender, active bowel sounds, no rebound, no guarding, rigidity EXTREMETIES: No edema, cyanosis, clubbing NEUROLOGIC: Alert, oriented to person/place/time, CN's grossly intact, no focal deficits PSYCH: Normal mood, normal affect Results Laboratory Results: 01/21/17 10:43 01/20/17 05:05 01/21/17 01/21/17 08:48 10:43 WBC Cancelled 26.5 H RBC Cancelled Hgb Cancelled Hct Cancelled MCV Cancelled MCH Cancelled MCHC Cancelled RDW Cancelled Plt Count Cancelled 242 Seg Neutrophils % Cancelled Not Reportable Lymphocytes % Cancelled Not Reportable Monocytes % Cancelled Not Reportable Eosinophils % Cancelled Not Reportable Basophils % Cancelled Not Reportable Absolute Neutrophils Cancelled Not Reportable Absolute Lymphocytes Cancelled Not Reportable Absolute Monocytes Cancelled Not Reportable Absolute Eosinophils Cancelled Not Reportable Absolute Basophils Cancelled Not Reportable Impressions: Abdomen/Pelvis CT 01/16/17 00:00 IMPRESSION: There is thickening of the john of the distal sigmoid colon, splenic flexure, and proximal descending colon which has the appearance of a colitis. Increased density in the dependent portion of the gallbladder lumen which could represent biliary sludge or tiny gallstones. Clinical correlation is recommended. Other findings as noted above. Abdomen Ultrasound 01/16/17 19:53 IMPRESSION: Somewhat limited study as noted above. No significant interval change. Fatty infiltration of the liver. Other findings as noted above Assessment & Plan - Diagnosis (1) Sepsis Qualifiers: Sepsis type: sepsis due to unspecified organism Qualified Code(s): A41.9 - Sepsis, unspecified organism Is this a current diagnosis for this admission?: YesPlan: Patient met criteria on admission with leukocytosis and tachycardia. Patient's source is C. difficile colitis as well as UTI. (2) C. difficile colitis Is this a current diagnosis for this admission?: YesPlan: Patient is on Flagyl day #5 and Vancocin day #4 (3) Diabetes mellitus type II, controlled Qualifiers: Diabetes mellitus complication status: with circulatory complication Diabetes mellitus complication detail: with other circulatory complications Diabetes mellitus mcfp insulin use: with mcfp use Qualified Code(s): E11.59 - Type 2 diabetes mellitus with other circulatory complications Is this a current diagnosis for this admission?: YesPlan: Patient is poorly controlled and will initiate on Lantus. Suspect that this may be the cause for her nausea.We will also initiate patient on Reglan. (4) UTI (urinary tract infection) Qualifiers: Urinary tract infection type: site unspecified Hematuria presence: without hematuria Qualified Code(s): N39.0 - Urinary tract infection, site not specified Is this a current diagnosis for this admission?: YesPlan: E. coli UTI. Patient with Enterococcus faecalis group D urinary tract infection as well as. Patient on ampicillin. (5) Diastolic CHF Qualifiers: Congestive heart failure chronicity: chronic Qualified Code(s): I50.32 - Chronic diastolic (congestive) heart failure Is this a current diagnosis for this admission?: Yes (6) HTN (hypertension) Qualifiers: Hypertension type: essential hypertension Qualified Code(s): I10 - Essential (primary) hypertension Is this a current diagnosis for this admission?: Yes (7) Hyperlipidemia Qualifiers: Hyperlipidemia type: unspecified Qualified Code(s): E78.5 - Hyperlipidemia, unspecified Is this a current diagnosis for this admission?: Yes (8) Morbid obesity Qualifiers: Obesity type: due to excess calories Qualified Code(s): E66.01 - Morbid (severe) obesity due to excess calories Is this a current diagnosis for this admission?: Yes (9) Hypernatremia Is this a current diagnosis for this admission?: Yes (10) Anxiety and depression Is this a current diagnosis for this admission?: Yes (11) CAD (coronary artery disease) Qualifiers: Coronary Disease-Associated Artery/Lesion type: [place] artery [place] vs. transplanted heart: [place] heart Associated angina: without angina Qualified Code(s): I25.10 - Atherosclerotic heart disease of [place] coronary artery without angina pectoris Is this a current diagnosis for this admission?: No (12) DVT prophylaxis Is this a current diagnosis for this admission?: Yes - Time Time Spent with patient: 25-34 minutes Medications reviewed and adjusted accordingly: Yes Anticipated discharge: Home Within: within 24 hours
[2017-01-21] MEDS: METOCLOPRAMIDE HCL 10 MG TABLET PO SCH (21:18)
[2017-01-21] MEDS: ATORVASTATIN CALCIUM 20 MG TABLET PO SCH (21:19)
[2017-01-21] MEDS: LOSARTAN POTASSIUM 50 MG TABLET PO SCH (21:19)
[2017-01-21] MEDS ORDERED: INSULIN GLARGINE,HUM.REC.ANLOG 1,000 UNIT/10 ML UNIT SUBCUT SCH (22:00)
[2017-01-22] MEDS: ACETAMINOPHEN 325 MG TABLET PO PRN (00:05)
[2017-01-22] MEDS: METRONIDAZOLE 500 MG/NS RTU 100 ML IV SCH ×4 (03:07→20:14)
[2017-01-22] MEDS: VANCOMYCIN HCL INJ 500 MG VIAL PO SCH ×4 (05:09→23:40)
[2017-01-22] MEDS: AMPICILLIN TRIHYD 500 MG CAPSULE PO SCH ×4 (05:09→23:41)
[2017-01-22 06:29] LABS: ANION GAP 14 (5-19); BLOOD UREA NITROGEN 18 mg/dL (7-20); CALCIUM 9.2 mg/dL (8.4-10.2); CARBON DIOXIDE 22 mmol/L (22-30); CHLORIDE 101 mmol/L (98-107); CREATININE RESULT 0.75 mg/dL (0.52-1.25); GLUCOSE 301 mg/dL (75-110); MAGNESIUM 1.6 mg/dL (1.6-2.3); POTASSIUM 4.6 mmol/L (3.6-5.0); SODIUM 137.4 mmol/L (137-145)
[2017-01-22 07:35] LABS: HEMATOCRIT 49.6 % (36.0-47.0); HEMOGLOBIN 14.9 g/dL (12.0-15.5); MEAN CORPUSCULAR VOLUME 67 fl (80-97); RED CELL DISTRIBUTION WIDTH 22.8 % (11.5-14.0); WHITE BLOOD COUNT 26.3 10^3/uL (4.0-10.5)
[2017-01-22 07:51] LABS: HGB HCT DIFFERENCE -4.9; RED BLOOD COUNT 7.46 10^6/uL (3.72-5.28)
[2017-01-22 07:53] LABS: BAND NEUTROPHILS % (MANUAL) 5 % (3-5); BASOPHILS % (MANUAL) 0 % (0-2); EOSINOPHILS % (MANUAL) 1 % (0-6); LYMPHOCYTES % (MANUAL) 5 % (13-45); TOTAL CELLS COUNTED 100
[2017-01-22 07:55] LABS: HYPOCHROMASIA 3+; POIKILOCYTOSIS SLIGHT; TOXIC GRANULATION SLIGHT; TOXIC VACUOLATION PRESENT
[2017-01-22 07:56] LABS: ANISOCYTOSIS 2+; OVALOCYTES SLIGHT; TEAR DROP CELLS SLIGHT
[2017-01-22] MEDS: INSULIN LISPRO 100 UNIT/ML 3 ML VIAL SUBCUT PRN ×4 (08:11→21:35)
[2017-01-22] MEDS: METOCLOPRAMIDE HCL 10 MG TABLET PO SCH ×4 (08:11→21:33)
[2017-01-22] MEDS: LACTOBACILLUS ACIDOPHILUS 250 MG TAB PO SCH ×2 (10:08→17:16)
[2017-01-22] MEDS: SITAGLIPTIN PHOSPHATE 50 MG TABLET PO SCH (10:08)
[2017-01-22] MEDS: GABAPENTIN 300 MG CAPSULE PO SCH ×2 (10:08→21:34)
[2017-01-22] MEDS: METOPROLOL TARTRATE 100 MG TABLET PO SCH ×2 (10:08→21:34)
[2017-01-22] MEDS: ISOSORBIDE MONONITRATE 30 MG TAB.ER.24H PO SCH (10:09)
[2017-01-22] MEDS: ASPIRIN 81 MG TABLET, ENT COATED PO SCH (10:09)
[2017-01-22] MEDS: MAGNESIUM SULFATE/D5W 100 ML IV SCH ×2 (12:40→13:50)
--- NOTE | 2017-01-22 16:31 | PDOC PROGRESS REPORT ---
Subjective Progress Note for:: 01/22/17 Subjective:: Patient continues to complain of nausea. Patient reports several episodes of diarrhea today including incontinence of stool. Patient does not feel like she is back to her normal self. Patient denies fever, chills, chest pain, shortness of breath, continued vomiting, constipation, edema, no onset weakness. Physical Exam Vital Signs: Temp Pulse Resp BP Pulse Ox 97.2 F 86 21 H 149/67 H 92 01/22/17 15:10 01/22/17 15:10 01/22/17 15:10 01/22/17 15:10 01/22/17 15:10 Intake & Output 01/21/17 01/22/17 01/23/17 06:59 06:59 06:59 Intake Total 2370 2194 440 Output Total 3500 Balance -1130 2194 440 Weight 100.3 kg 100.6 kg Exam: GENERAL: Awake, alert, oriented 3; no acute distress HEENT: Atraumatic, normocephalic, conjunctiva clear, nonicteric, moist mucous membranes, no JVD, midline trachea RESPIRATORY: Clear to auscultation bilaterally, no wheezes, no rhonchi CARDIAC: Regular rate and rhythm, no murmurs/gallops/rubs ABDOMEN: Soft, nondistended, mildly tender, hyperactive bowel sounds, no rebound , no guarding, rigidity EXTREMETIES: No edema, cyanosis, clubbing NEUROLOGIC: Alert, oriented to person/place/time, CN's grossly intact, no focal deficits PSYCH: Normal mood, normal affect Results Laboratory Results: 01/22/17 05:22 01/22/17 05:22 01/22/17 01/22/17 05:22 05:22 WBC 26.3 H RBC 7.46 H Hgb 14.9 Hct 49.6 H MCV 67 L MCH 20.0 L MCHC 30.0 L RDW 22.8 H Plt Count 221 Seg Neutrophils % Not Reportable Lymphocytes % Not Reportable Monocytes % Not Reportable Eosinophils % Not Reportable Basophils % Not Reportable Absolute Neutrophils Not Reportable Absolute Lymphocytes Not Reportable Absolute Monocytes Not Reportable Absolute Eosinophils Not Reportable Absolute Basophils Not Reportable Sodium 137.4 Potassium 4.6 Chloride 101 Carbon Dioxide 22 Anion Gap 14 BUN 18 Creatinine 0.75 Est GFR ( Amer) > 60 Est GFR (Non-Af Amer) > 60 Glucose 301 H Calcium 9.2 Magnesium 1.6 Impressions: Abdomen/Pelvis CT 01/16/17 00:00 IMPRESSION: There is thickening of the john of the distal sigmoid colon, splenic flexure, and proximal descending colon which has the appearance of a colitis. Increased density in the dependent portion of the gallbladder lumen which could represent biliary sludge or tiny gallstones. Clinical correlation is recommended. Other findings as noted above. Abdomen Ultrasound 01/16/17 19:53 IMPRESSION: Somewhat limited study as noted above. No significant interval change. Fatty infiltration of the liver. Other findings as noted above Assessment & Plan - Diagnosis (1) Sepsis Qualifiers: Sepsis type: sepsis due to unspecified organism Qualified Code(s): A41.9 - Sepsis, unspecified organism Is this a current diagnosis for this admission?: YesPlan: Patient met criteria on admission with leukocytosis and tachycardia. Patient's source is C. difficile colitis as well as UTI. (2) C. difficile colitis Is this a current diagnosis for this admission?: YesPlan: Patient is on Flagyl day #6 and Vancocin day #5. Patient continues to be quite symptomatic at this time with exceptional leukocytosis which concerns me for failure of current treatment now the patient is nearly a weekend. Consider changing patient to rifaximin. (3) Diabetes mellitus type II, controlled Qualifiers: Diabetes mellitus complication status: with circulatory complication Diabetes mellitus complication detail: with other circulatory complications Diabetes mellitus care home insulin use: with care home use Qualified Code(s): E11.59 - Type 2 diabetes mellitus with other circulatory complications Is this a current diagnosis for this admission?: YesPlan: Patient is poorly controlled and will increase Lantus. Suspect that this may be the cause for her nausea. (4) UTI (urinary tract infection) Qualifiers: Urinary tract infection type: site unspecified Hematuria presence: without hematuria Qualified Code(s): N39.0 - Urinary tract infection, site not specified Is this a current diagnosis for this admission?: YesPlan: E. coli UTI. Patient with Enterococcus faecalis group D urinary tract infection as well as. Patient with course of antibiotics tomorrow. (5) Diastolic CHF Qualifiers: Congestive heart failure chronicity: chronic Qualified Code(s): I50.32 - Chronic diastolic (congestive) heart failure Is this a current diagnosis for this admission?: Yes (6) HTN (hypertension) Qualifiers: Hypertension type: essential hypertension Qualified Code(s): I10 - Essential (primary) hypertension Is this a current diagnosis for this admission?: Yes (7) Hyperlipidemia Qualifiers: Hyperlipidemia type: unspecified Qualified Code(s): E78.5 - Hyperlipidemia, unspecified Is this a current diagnosis for this admission?: Yes (8) Morbid obesity Qualifiers: Obesity type: due to excess calories Qualified Code(s): E66.01 - Morbid (severe) obesity due to excess calories Is this a current diagnosis for this admission?: Yes (9) Hypernatremia Is this a current diagnosis for this admission?: Yes (10) Anxiety and depression Is this a current diagnosis for this admission?: Yes (11) CAD (coronary artery disease) Qualifiers: Coronary Disease-Associated Artery/Lesion type: [place] artery [place] vs. transplanted heart: [place] heart Associated angina: without angina Qualified Code(s): I25.10 - Atherosclerotic heart disease of [place] coronary artery without angina pectoris Is this a current diagnosis for this admission?: No (12) DVT prophylaxis Is this a current diagnosis for this admission?: Yes - Time Time Spent with patient: 25-34 minutes Medications reviewed and adjusted accordingly: Yes Anticipated discharge: Home Within: within 48 hours
[2017-01-22] MEDS: PSYLLIUM SEED-SF 5.85 GM PACKET PO PRN ×2 (16:39)
[2017-01-22] MEDS: LOSARTAN POTASSIUM 50 MG TABLET PO SCH (21:33)
[2017-01-22] MEDS: ATORVASTATIN CALCIUM 20 MG TABLET PO SCH (21:34)
[2017-01-22] MEDS ORDERED: INSULIN GLARGINE,HUM.REC.ANLOG 1,000 UNIT/10 ML UNIT SUBCUT SCH (22:00)
[2017-01-23] MEDS: METRONIDAZOLE 500 MG/NS RTU 100 ML IV SCH ×4 (03:32→22:32)
[2017-01-23] MEDS: AMPICILLIN TRIHYD 500 MG CAPSULE PO SCH (05:33)
[2017-01-23] MEDS: VANCOMYCIN HCL INJ 500 MG VIAL PO SCH ×4 (05:33→23:58)
[2017-01-23] MEDS: METOCLOPRAMIDE HCL 10 MG TABLET PO SCH ×2 (08:24→10:37)
[2017-01-23] MEDS: METOPROLOL TARTRATE 100 MG TABLET PO SCH ×2 (08:26→22:31)
[2017-01-23] MEDS: INSULIN LISPRO 100 UNIT/ML 3 ML VIAL SUBCUT PRN ×3 (08:27→17:24)
[2017-01-23 09:13] LABS: HEMATOCRIT 52.4 % (36.0-47.0); HEMOGLOBIN 15.9 g/dL (12.0-15.5); MEAN CORPUSCULAR HEMOGLOBIN 19.9 pg (27.0-33.4); MEAN CORPUSCULAR HGB CONC 30.3 g/dL (32.0-36.0); MEAN CORPUSCULAR VOLUME 66 fl (80-97); RED CELL DISTRIBUTION WIDTH 22.5 % (11.5-14.0); WHITE BLOOD COUNT 25.9 10^3/uL (4.0-10.5)
[2017-01-23 09:19] LABS: HGB HCT DIFFERENCE -4.7
[2017-01-23 09:21] LABS: BAND NEUTROPHILS % (MANUAL) 3 % (3-5); BASOPHILS % (MANUAL) 1 % (0-2); EOSINOPHILS % (MANUAL) 1 % (0-6); LYMPHOCYTES % (MANUAL) 2 % (13-45); TOTAL CELLS COUNTED 100
[2017-01-23 09:25] LABS: ANISOCYTOSIS 2+; HYPOCHROMASIA 1+; OVALOCYTES SLIGHT; POIKILOCYTOSIS 1+; POLYCHROMASIA SLIGHT; TEAR DROP CELLS SLIGHT
[2017-01-23 09:27] LABS: RED BLOOD COUNT 7.97 10^6/uL (3.72-5.28)
[2017-01-23] MEDS: LACTOBACILLUS ACIDOPHILUS 250 MG TAB PO SCH ×2 (10:37→17:24)
[2017-01-23] MEDS: GABAPENTIN 300 MG CAPSULE PO SCH ×2 (10:37→22:31)
[2017-01-23] MEDS: ASPIRIN 81 MG TABLET, ENT COATED PO SCH (10:37)
[2017-01-23] MEDS: SITAGLIPTIN PHOSPHATE 50 MG TABLET PO SCH (10:38)
[2017-01-23] MEDS: ISOSORBIDE MONONITRATE 30 MG TAB.ER.24H PO SCH (10:38)
--- NOTE | 2017-01-23 13:42 | Progress Note ---
Provider Note Provider Note: Attempted to reach patient daughter using both numbers provided at [phone]. Unable to reach. Voice mail not set up. Generic answering machine reached and no message left due to HIPPA considerations.
[2017-01-23] MEDS ORDERED: CHOLESTYRAMINE/ASPARTAME 4 GM PACKET PO ONE (14:30)
[2017-01-23] MEDS: PSYLLIUM SEED-SF 5.85 GM PACKET PO PRN ×2 (16:49)
--- NOTE | 2017-01-23 16:55 | PDOC PROGRESS REPORT ---
Subjective Progress Note for:: 01/23/17 Subjective:: Patient reports two episodes of diarrhea today including incontinence of stool. Patient does not feel like she is back to her normal self. Patient denies fever, chills, chest pain, shortness of breath, continued vomiting, constipation, edema, no onset weakness. Physical Exam Vital Signs: Temp Pulse Resp BP Pulse Ox 98.5 F 87 18 118/98 H 93 01/23/17 12:31 01/23/17 12:31 01/23/17 12:31 01/23/17 12:31 01/23/17 12:31 Intake & Output 01/22/17 01/23/17 01/24/17 06:59 06:59 06:59 Intake Total 2194 2787 820 Balance 2194 2787 820 Weight 100.6 kg 98.7 kg Exam: GENERAL: Awake, alert, oriented 3; no acute distress HEENT: Atraumatic, normocephalic, conjunctiva clear, nonicteric, moist mucous membranes, no JVD, midline trachea RESPIRATORY: Clear to auscultation bilaterally, no wheezes, no rhonchi CARDIAC: Regular rate and rhythm, no murmurs/gallops/rubs ABDOMEN: Soft, nondistended, mildly tender, hyperactive bowel sounds, no rebound , no guarding, rigidity EXTREMETIES: No edema, cyanosis, clubbing NEUROLOGIC: Alert, oriented to person/place/time, CN's grossly intact, no focal deficits PSYCH: Normal mood, normal affect Results Laboratory Results: 01/23/17 08:54 01/22/17 05:22 01/23/17 08:54 WBC 25.9 H RBC 7.97 H Hgb 15.9 H Hct 52.4 H MCV 66 L MCH 19.9 L MCHC 30.3 L RDW 22.5 H Plt Count 260 Seg Neutrophils % Not Reportable Lymphocytes % Not Reportable Monocytes % Not Reportable Eosinophils % Not Reportable Basophils % Not Reportable Absolute Neutrophils Not Reportable Absolute Lymphocytes Not Reportable Absolute Monocytes Not Reportable Absolute Eosinophils Not Reportable Absolute Basophils Not Reportable Impressions: Abdomen/Pelvis CT 01/16/17 00:00 IMPRESSION: There is thickening of the john of the distal sigmoid colon, splenic flexure, and proximal descending colon which has the appearance of a colitis. Increased density in the dependent portion of the gallbladder lumen which could represent biliary sludge or tiny gallstones. Clinical correlation is recommended. Other findings as noted above. Abdomen Ultrasound 01/16/17 19:53 IMPRESSION: Somewhat limited study as noted above. No significant interval change. Fatty infiltration of the liver. Other findings as noted above Assessment & Plan - Diagnosis (1) Sepsis Qualifiers: Sepsis type: sepsis due to unspecified organism Qualified Code(s): A41.9 - Sepsis, unspecified organism Is this a current diagnosis for this admission?: YesPlan: Patient met criteria on admission with leukocytosis and tachycardia. Patient's source is C. difficile colitis as well as UTI. (2) C. difficile colitis Is this a current diagnosis for this admission?: YesPlan: Patient is on Flagyl day #7 and Vancocin day #6. Consider changing patient to rifaximin. Stop patient's Reglan which may be contributing to her diarrhea. (3) Diabetes mellitus type II, controlled Qualifiers: Diabetes mellitus complication status: with circulatory complication Diabetes mellitus complication detail: with other circulatory complications Diabetes mellitus nanny caregiver insulin use: with nanny caregiver use Qualified Code(s): E11.59 - Type 2 diabetes mellitus with other circulatory complications Is this a current diagnosis for this admission?: YesPlan: Patient's current poorly controlled blood sugar is due to eating milkshakes that were provided from outside hospital by family. Increase Lantus. (4) UTI (urinary tract infection) Qualifiers: Urinary tract infection type: site unspecified Hematuria presence: without hematuria Qualified Code(s): N39.0 - Urinary tract infection, site not specified Is this a current diagnosis for this admission?: YesPlan: Completed 7 days of antibiotics (5) Diastolic CHF Qualifiers: Congestive heart failure chronicity: chronic Qualified Code(s): I50.32 - Chronic diastolic (congestive) heart failure Is this a current diagnosis for this admission?: Yes (6) HTN (hypertension) Qualifiers: Hypertension type: essential hypertension Qualified Code(s): I10 - Essential (primary) hypertension Is this a current diagnosis for this admission?: Yes (7) Hyperlipidemia Qualifiers: Hyperlipidemia type: unspecified Qualified Code(s): E78.5 - Hyperlipidemia, unspecified Is this a current diagnosis for this admission?: Yes (8) Morbid obesity Qualifiers: Obesity type: due to excess calories Qualified Code(s): E66.01 - Morbid (severe) obesity due to excess calories Is this a current diagnosis for this admission?: Yes (9) Hypernatremia Is this a current diagnosis for this admission?: Yes (10) Anxiety and depression Is this a current diagnosis for this admission?: Yes (11) CAD (coronary artery disease) Qualifiers: Coronary Disease-Associated Artery/Lesion type: [place] artery [place] vs. transplanted heart: [place] heart Associated angina: without angina Qualified Code(s): I25.10 - Atherosclerotic heart disease of [place] coronary artery without angina pectoris Is this a current diagnosis for this admission?: No (12) DVT prophylaxis Is this a current diagnosis for this admission?: Yes - Time Time Spent with patient: 25-34 minutes Medications reviewed and adjusted accordingly: Yes Anticipated discharge: Home Within: within 24 hours
[2017-01-23] MEDS ORDERED: INSULIN GLARGINE,HUM.REC.ANLOG 1,000 UNIT/10 ML UNIT SUBCUT SCH (22:00)
[2017-01-23] MEDS: LOSARTAN POTASSIUM 50 MG TABLET PO SCH (22:31)
[2017-01-23] MEDS: ATORVASTATIN CALCIUM 20 MG TABLET PO SCH (22:31)
[2017-01-24] MEDS: METRONIDAZOLE 500 MG/NS RTU 100 ML IV SCH ×2 (03:45→11:16)
[2017-01-24] MEDS: VANCOMYCIN HCL INJ 500 MG VIAL PO SCH ×2 (05:26→11:18)
[2017-01-24] MEDS: INSULIN LISPRO 100 UNIT/ML 3 ML VIAL SUBCUT PRN ×2 (06:51→13:31)
[2017-01-24] MEDS ORDERED: INSULIN GLARGINE,HUM.REC.ANLOG 300 UNIT/3 ML INSULN.PEN SUBCUT SCH ×2 (10:00→22:00)
[2017-01-24] MEDS: ISOSORBIDE MONONITRATE 30 MG TAB.ER.24H PO SCH (11:16)
[2017-01-24] MEDS: LACTOBACILLUS ACIDOPHILUS 250 MG TAB PO SCH (11:16)
[2017-01-24] MEDS: SITAGLIPTIN PHOSPHATE 50 MG TABLET PO SCH (11:16)
[2017-01-24] MEDS: GABAPENTIN 300 MG CAPSULE PO SCH (11:16)
[2017-01-24] MEDS: METOPROLOL TARTRATE 100 MG TABLET PO SCH (11:17)
[2017-01-24] MEDS: ASPIRIN 81 MG TABLET, ENT COATED PO SCH (11:18)
[2017-01-24 12:38] VITALS: BP 150/74
--- NOTE | 2017-01-24 14:16 | PDOC DISCHARGE SUMMARY ---
General - Admit/Disc Date/PCP Admission Date/Primary Care Provider: 01/17/17 06:32 SOFI GUERRIER MD Discharge Date: 01/24/17 - Discharge Diagnosis (1) Sepsis Is this a current diagnosis for this admission?: Yes (2) C. difficile colitis Is this a current diagnosis for this admission?: Yes (3) Diabetes mellitus type II, controlled Is this a current diagnosis for this admission?: Yes (4) UTI (urinary tract infection) Is this a current diagnosis for this admission?: Yes (5) Diastolic CHF Is this a current diagnosis for this admission?: Yes (6) HTN (hypertension) Is this a current diagnosis for this admission?: Yes (7) Hyperlipidemia Is this a current diagnosis for this admission?: Yes (8) Morbid obesity Is this a current diagnosis for this admission?: Yes (9) Hypernatremia Is this a current diagnosis for this admission?: Yes (10) Anxiety and depression Is this a current diagnosis for this admission?: Yes (11) CAD (coronary artery disease) Is this a current diagnosis for this admission?: No - Additional Information Resuscitation Status: Full Code Discharge Diet: Cardiac, Diabetic Discharge Activity: Activity As Tolerated, Balance Activity w/Rest Home Medications: Aspirin [Ecotrin 81 mg EC Tablet] 81 mg PO DAILY 01/17/17 Clopidogrel Bisulfate [Plavix 75 mg Tablet] 75 mg PO DAILY 01/17/17 Gabapentin [Neurontin 300 mg Capsule] 300 mg PO Q12 01/17/17 Isosorbide Mononitrate [Isosorbide Mononitrate ER] 30 mg PO DAILY 01/17/17 Losartan Potassium [Cozaar 50 mg Tablet] 50 mg PO DAILY 01/17/17 Metoprolol Tartrate [Lopressor 100 mg Tablet] 100 mg PO Q12 01/17/17 Rosuvastatin Calcium [Crestor 10 mg Tablet] 10 mg PO DAILY 01/17/17 Sitagliptin Phosphate [Januvia] 100 mg PO DAILY 01/17/17 Metronidazole [Flagyl 500 mg Tablet] 500 mg PO Q6H #24 tablet 01/24/17 Ondansetron [Zofran Odt 4 mg Tablet] 4 mg PO Q4HP PRN #10 tab.rapdis 01/24/17 Vancomycin HCl [Vancocin HCl] 250 mg PO Q6H #24 capsule 01/24/17 History of Present Illness History of Present Illness: Please see H&P for HPI. Hospital Course Hospital Course: Patient was found to have c.diff colitis as well as a uti with E.Coli and enterococcus faecalis group D. Patient met criteria for sepsis and was empirically started on Flagyl and oral vancocin. Patient was also intially started on Rocephin and Linezolid due to penicillin allergy. Patient reported her "allergy" was itching and agreed to a trial of ampicillin. This was performed and patient had no adverse reaction. She was monitored by nursing and pharmacy at the bedside during this trial. After this, she was started on Ampicillin for her UTI and completed 5 days of treatment.Patient's diarrhea improved and slowed. The remainder of her course was unremarkable and patient was discharged home in stable condition. During her hospitalization, patient ate foods off of her diabetic diet, pushing her blood sugars to the 400 range. Patient was treated with sliding scale insulin. Physical Exam Vital Signs: Temp Pulse Resp BP Pulse Ox 98.2 F 91 20 150/74 H 94 01/24/17 12:34 01/24/17 12:34 01/24/17 12:34 01/24/17 12:34 01/24/17 12:34 Intake & Output 01/23/17 01/24/17 01/25/17 06:59 06:59 06:59 Intake Total 2787 1816 Balance 2787 1816 Weight 98.7 kg Exam: GENERAL: Awake, alert, oriented 3; no acute distress HEENT: Atraumatic, normocephalic, conjunctiva clear, nonicteric, moist mucous membranes, no JVD, midline trachea RESPIRATORY: Clear to auscultation bilaterally, no wheezes, no rhonchi CARDIAC: Regular rate and rhythm, no murmurs/gallops/rubs ABDOMEN: Soft, nondistended, nontender,active bowel sounds, no rebound, no guarding, rigidity EXTREMETIES: No edema, cyanosis, clubbing NEUROLOGIC: Alert, oriented to person/place/time, CN's grossly intact, no focal deficits PSYCH: Normal mood, normal affect Results Laboratory Results: 01/23/17 08:54 01/22/17 05:22 Impressions: Abdomen/Pelvis CT 01/16/17 00:00 IMPRESSION: There is thickening of the john of the distal sigmoid colon, splenic flexure, and proximal descending colon which has the appearance of a colitis. Increased density in the dependent portion of the gallbladder lumen which could represent biliary sludge or tiny gallstones. Clinical correlation is recommended. Other findings as noted above. Abdomen Ultrasound 01/16/17 19:53 IMPRESSION: Somewhat limited study as noted above. No significant interval change. Fatty infiltration of the liver. Other findings as noted above Qualifiers PATEINT BEING DISCHARGED WITH ANY OF THE FOLLOWING DIAGNOSIS?: No Plan Time Spent: Less than 30 Minutes
== END 2017-01-24 14:21 | disposition home or self-care (01) | DRG 872 ==
LOC: ER 19:06 → EH 01-17 01:41 → UNDOADMIN 01-17 01:41 → 3S 01-17 06:32 → EH 01-17 06:38 → 3S 01-17 06:38 → 4N 01-23 18:19
PROVIDERS: ADMIT Family Medicine; ATTEND Family Medicine
DX: A41.9 Sepsis, unspecified organism (principal); A04.7 Enterocolitis due to Clostridium difficile; N39.0 Urinary tract infection, site not specified; I50.32 Chronic diastolic (congestive) heart failure; E87.0 Hyperosmolality and hypernatremia; I16.0 Hypertensive urgency; I11.0 Hypertensive heart disease with heart failure; E11.9 Type 2 diabetes mellitus without complications; K21.9 Gastro-esophageal reflux disease without esophagitis; I25.10 Atherosclerotic heart disease of native coronary artery without angina pectoris; B96.20 Unspecified Escherichia coli [E. coli] as the cause of diseases classified elsewhere; B95.2 Enterococcus as the cause of diseases classified elsewhere; E66.01 Morbid (severe) obesity due to excess calories; Z79.01 Long term (current) use of anticoagulants; Z88.1 Allergy status to other antibiotic agents; Z88.0 Allergy status to penicillin; Z68.36 Body mass index [BMI] 36.0-36.9, adult
CPT/HCPCS: 36415; 74177; 76705; 80048; 80053; 81001; 82272; 82550; 82553; 82962; 83690; 83735; 84484; 85025; 85027; 87040; 87045; 87086; 87088; 87186; 87205; 87493; 93005; 93010; 94799; 96361; 96365; 96375; 96376; 99285; J0360; J0696; J0744; J1815; J1940; J1956; J2270; J3370; J3475; J3490; J7030; S0119

== ENCOUNTER 2017-01-26 11:14 | Emergency (ER) | payer MEDICARE, OTHER ==
[2017-01-26 13:29] LABS: HEMOGLOBIN 14.8 g/dL (12.0-15.5); MEAN CORPUSCULAR HEMOGLOBIN 19.7 pg (27.0-33.4); MEAN CORPUSCULAR HGB CONC 29.6 g/dL (32.0-36.0); MEAN CORPUSCULAR VOLUME 66 fl (80-97); RED BLOOD COUNT 7.52 10^6/uL (3.72-5.28); RED CELL DISTRIBUTION WIDTH 22.1 % (11.5-14.0); WHITE BLOOD COUNT 28.4 10^3/uL (4.0-10.5)
[2017-01-26 13:41] LABS: ALANINE AMINOTRANSFERASE 30 U/L (9-52); ALBUMIN 3.2 g/dL (3.5-5.0); ALKALINE PHOSPHATASE 183 U/L (38-126); ANION GAP 11 (5-19); ASPARTATE AMINO TRANSFERASE 28 U/L (14-36); BILIRUBIN,DIRECT 0.5 mg/dL (0.0-0.4); BILIRUBIN,TOTAL 0.9 mg/dL (0.2-1.3); BLOOD UREA NITROGEN 22 mg/dL (7-20); CALCIUM 9.1 mg/dL (8.4-10.2); CARBON DIOXIDE 23 mmol/L (22-30); CHLORIDE 106 mmol/L (98-107); GLUCOSE 299 mg/dL (75-110); POTASSIUM 4.9 mmol/L (3.6-5.0); SODIUM 139.9 mmol/L (137-145); TOTAL PROTEIN 6.6 g/dL (6.3-8.2)
[2017-01-26 13:45] LABS: HGB HCT DIFFERENCE -5.6
[2017-01-26 13:51] LABS: BAND NEUTROPHILS % (MANUAL) 6 % (3-5); BASOPHILS % (MANUAL) 0 % (0-2); EOSINOPHILS % (MANUAL) 0 % (0-6); LYMPHOCYTES % (MANUAL) 5 % (13-45); TOTAL CELLS COUNTED 100
[2017-01-26 13:55] LABS: TOXIC GRANULATION SLIGHT; TOXIC VACUOLATION PRESENT
--- NOTE | 2017-01-26 13:55 | RADIOLOGY REPORT (SQ) ---
EXAM DESCRIPTION: CT HEAD WITHOUT COMPLETED DATE/TIME: 01/26/2017 1:32 pm REASON FOR STUDY: fall on blood thinners COMPARISON: 07/31/2016 TECHNIQUE: Axial images acquired through the brain without intravenous contrast. Images reviewed wi th bone, brain and subdural windows. Images stored on PACS. All CT scanners at this facility use dose modulation, iterative reconstruction, and/or weight based d osing when appropriate to reduce radiation dose to as low as reasonably achievable (ALARA). [facility]: Dose Right [facility]: CareDose [facility]: Dose Right [facility]: Teradose 4D [facility]: [employer] RADIATION DOSE: 64.61 mGy. LIMITATIONS: None. FINDINGS: VENTRICLES: Normal size and contour. CEREBRUM: Mild cortical atrophy. There are areas of decreased attenuation in the periventricular whi te matter. There is a small old lacunar infarct in the basal ganglia on the left. No masses. No he morrhage. No midline shift. Normal krueger/white matter differentiation. No evidence for acute infarc tion. CEREBELLUM: No masses. No hemorrhage. No alteration of density. No evidence for acute infarction. EXTRAAXIAL SPACES: No fluid collections. No masses. ORBITS AND GLOBE: No intra- or extraconal masses. Normal contour of globe without masses. CALVARIUM: No fracture. PARANASAL SINUSES: No fluid or mucosal thickening. SOFT TISSUES: No mass or hematoma. OTHER: No other significant finding. IMPRESSION: Involutional changes of aging with evidence of small vessel ischemic disease and no acut e intracranial pathology. There is no hemorrhage. TECHNICAL DOCUMENTATION: JOB ID: [id number] Quality ID # [id number]: Final reports with documentation of one or more dose reduction techniques (e.g., Au tomated exposure control, adjustment of the mA and/or kV according to patient size, use of iterative reconstruction technique) 2010 [employer]- All Rights Reserved
[2017-01-26 13:57] LABS: POLYCHROMASIA SLIGHT
[2017-01-26 13:58] LABS: ANISOCYTOSIS 3+; MICROCYTOSIS 2+; OVALOCYTES 1+; PLATELET CLUMPS PRESENT; POIKILOCYTOSIS 1+; TARGET CELLS SLIGHT; TEAR DROP CELLS SLIGHT
[2017-01-26 13:59] LABS: HYPOCHROMASIA 2+
--- NOTE | 2017-01-26 13:59 | RADIOLOGY REPORT (SQ) ---
EXAM DESCRIPTION: CT CERVICAL SPINE WITHOUT COMPLETED DATE/TIME: 01/26/2017 1:31 pm REASON FOR STUDY: fall on blood thinners COMPARISON: 07/31/2016 TECHNIQUE: Axial images acquired through the cervical spine without intravenous contrast. Images re viewed with lung, soft tissue and bone windows. Reconstructed coronal and sagittal MPR images review ed. Images stored on PACS. All CT scanners at this facility use dose modulation, iterative reconstruction, and/or weight based d osing when appropriate to reduce radiation dose to as low as reasonably achievable (ALARA). [facility]: Dose Right [facility]: CareDose [facility]: Dose Right [facility]: Teradose 4D [facility]: [employer] RADIATION DOSE: 24.02 mGy. LIMITATIONS: None. FINDINGS: ALIGNMENT: Anatomic. MINERALIZATION: Normal. VERTEBRAL BODIES: No fractures or dislocation. DISCS: There is mild narrowing of the C5-6 and C6-7 disc spaces. FACETS, LATERAL MASSES, POSTERIOR ELEMENTS: No fractures. No dislocation. No acute findings. HARDWARE: None in the spine. VISUALIZED RIBS: No fractures. LUNG APICES AND SOFT TISSUES: No significant or acute findings. OTHER: No other significant finding. IMPRESSION: There are mild degenerative disc changes. There is no acute abnormality. TECHNICAL DOCUMENTATION: JOB ID: [id number] Quality ID # [id number]: Final reports with documentation of one or more dose reduction techniques (e.g., Au tomated exposure control, adjustment of the mA and/or kV according to patient size, use of iterative reconstruction technique) 2010 [employer]- All Rights Reserved
[2017-01-26 14:50] LABS: APPEARANCE,URINE SLIGHTLY-CLOUDY; BILIRUBIN,URINE NEGATIVE (NEGATIVE); GLUCOSE, URINE 50 mg/dL (NEGATIVE); KETONES,URINE NEGATIVE (NEGATIVE); LEUKOCYTE ESTERASE,URINE MODERATE (NEGATIVE); NITRITE,URINE NEGATIVE (NEGATIVE); PROTEIN,URINE NEGATIVE (NEGATIVE); URINE SPECIFIC GRAVITY 1.015; UROBILINOGEN,URINE NEGATIVE mg/dL (<2.0)
--- NOTE | 2017-01-26 15:35 | ER Document Report ---
ED Fall - General Chief Complaint: Fall Stated Complaint: WEAKNESS Time Seen by Provider: 01/26/17 11:40 Notes: Patient is a 81-year-old female who returns emergency department after being discharged on January 24. Presents today after a mechanical fall in her kitchen. Patient states that she was making something to eat that she could take her medications when she slipped over her dog and fell onto the floor. Patient states that she hit her head on her cabinets. Patient is on Plavix. She was admitted for sepsis secondary to C. difficile colitis, urinary tract infection. Patient was discharged home on p.o. Vanco and Flagyl. Patient states that she has been taking these medications as prescribed. She denies any fevers, chills, decreased p.o. intake, nausea, vomiting, abdominal pain, constipation. Patient states that she is still having frequent bowel movements about 45 day performed. She denies any odor to her stool. Medical history significant for hypertension, diabetes TRAVEL OUTSIDE OF THE [place] IN LAST 30 DAYS: No - Related data Allergies/Adverse Reactions: No Known Allergies Allergy (Unverified 01/21/17 13:58) Past Medical History - Social History Smoking Status: Never Smoker Chew tobacco use (# tins/day): No Frequency of alcohol use: None Drug Abuse: None Family History: CAD, COPD, DM, Hyperlipidemia, Hypertension, Malignancy - Father with lung cancer, Other - Past Medical History Cardiac Medical History: Reports: Hx Congestive Heart Failure - Diastolic, Hx Heart Attack - EKG suggests probable prior infarction, Hx Hypercholesterolemia, Hx Hypertension, Hx Pulmonary Embolism - Distant history Pulmonary Medical History: Denies: Hx Asthma, Hx COPD, Hx Sleep Apnea Neurological Medical History: Denies: Hx Seizures Endocrine Medical History: Reports: Hx Diabetes Mellitus Type 1, Hx Diabetes Mellitus Type 2. Denies: Hx Hyperthyroidism, Hx Hypothyroidism Renal/ Medical History: Denies: Hx End Stage Renal Disease, Hx Peritoneal Dialysis Malignancy Medical History: Reports: Hx Skin Cancer - Excised from her nose. GI Medical History: Reports: Hx Gastroesophageal Reflux Disease. Denies: Hx Cirrhosis, Hx Hepatitis Musculoskeltal Medical History: Reports Hx Arthritis, Reports Hx Musculoskeletal Deformity Skin Medical History: Denies Hx Eczema, Denies Hx Psoriasis Psychiatric Medical History: Reports: Hx Anxiety, Hx Depression Infectious Medical History: Reports: Hx MRSA - Quite distant history. Denies: Hx C-Diff, Hx Hepatitis Past Surgical History: Reports: Hx Abdominal Surgery, Hx Appendectomy, Hx Hysterectomy, Hx Tonsillectomy, Other - Cardiac loop recorder, bilateral cataract surgery - Immunizations Hx Diphtheria, Pertussis, Tetanus Vaccination: No Hx Pneumococcal Vaccination: 04/29/13 Review of Systems - Review of Systems Constitutional: No symptoms reported Cardiovascular: No symptoms reported Respiratory: No symptoms reported Gastrointestinal: No symptoms reported Musculoskeletal: See HPI Neurological/Psychological: See HPI Physical Exam - Vital signs Vitals: Pulse Ox 92 01/26/17 11:18 - Notes Notes: PHYSICAL EXAM GENERAL: Alert, interacts well. HEAD: Normocephalic, atraumatic. EYES: Pupils equal, round, and reactive to light. Extraocular movements intact. ENT: Oral mucosa moist, tongue midline. NECK: Full range of motion. Supple. Trachea midline. LUNGS: Clear to auscultation bilaterally, no wheezes, rales, or rhonchi. No respiratory distress. HEART: Regular rate and rhythm. No murmurs, gallops, or rubs. ABDOMEN: Soft, nondistended, nontender. No guarding, rebound, or rigidity.. Bowel sounds present in all 4 quadrants. EXTREMITIES: Moves all 4 extremities spontaneously. No edema, radial and dorsalis pedis pulses 2/4 bilaterally. No cyanosis. NEUROLOGICAL: Alert and oriented x4. Normal speech. PSYCH: Normal affect, normal mood. SKIN: Warm, dry, normal turgor. No rashes or lesions noted. Course - Re-evaluation Re-evalutation: 01/26/17 18:54 Patient is an 81-year-old female who is hemodynamic stable, no acute distress. CBC does show white blood cell count of 28, this is consistent with patient's recent diagnosis of C. difficile and consistent with her discharge labs. Otherwise no sign for acute injury after fall. CT of the head and neck are negative for any injury or hemorrhage. Patient will be discharged home with instruction to follow-up with primary care as scheduled. Case management was also consulted due to her daughter's concern about her fall risk at home. Case management will evaluate for appropriateness of rehab. - Vital Signs Vital signs: Temp Pulse Resp BP Pulse Ox 98.2 F 80 20 122/75 95 01/26/17 17:28 01/26/17 17:28 01/26/17 17:28 01/26/17 17:28 01/26/17 17:28 - Laboratory Result Diagrams: 01/26/17 12:54 01/26/17 12:54 Laboratory results interpreted by me: 01/26/17 01/26/17 01/26/17 12:54 12:54 14:09 WBC 28.4 H RBC 7.52 H Hct 50.0 H MCV 66 L MCH 19.7 L MCHC 29.6 L RDW 22.1 H Seg Neuts % (Manual) 85 H Band Neutrophils % 6 H Lymphocytes % (Manual) 5 L Monocytes % (Manual) 1 L Abs Neuts (Manual) 25.8 H BUN 22 H Est GFR (Non-Af Amer) 53 L Glucose 299 H Direct Bilirubin 0.5 H Alkaline Phosphatase 183 H Albumin 3.2 L Urine Glucose (UA) 50 H Ur Leukocyte Esterase MODERATE H - Diagnostic Test Radiology reviewed: Image reviewed, Reports reviewed Discharge - Discharge Clinical Impression: Fall Condition: Stable Disposition: HOME, SELF-CARE Instructions: Head Injury Precautions ([facility]), C. (Clostridium) Difficile Infection ([facility]) Additional Instructions: Please continue to take you medications as prescribed Referrals: SOFI GUERRIER MD [COMMUNITY BASED STAFF] - Follow up in 3-5 days
[2017-01-26 18:47] VITALS: BP 122/75
== END 2017-01-26 17:28 | disposition home or self-care (01) ==
LOC: ER 11:14
DX: Z04.3 Encounter for examination and observation following other accident (principal); W01.198A Fall on same level from slipping, tripping and stumbling with subsequent striking against other object, initial encounter; Y93.G9 Activity, other involving cooking and grilling; Y92.000 Kitchen of unspecified non-institutional (private) residence as the place of occurrence of the external cause; Z79.02 Long term (current) use of antithrombotics/antiplatelets; A41.4 Sepsis due to anaerobes; A04.7 Enterocolitis due to Clostridium difficile; N39.0 Urinary tract infection, site not specified; I10 Essential (primary) hypertension; E11.9 Type 2 diabetes mellitus without complications; Z86.711 Personal history of pulmonary embolism; Z85.828 Personal history of other malignant neoplasm of skin; Z86.14 Personal history of Methicillin resistant Staphylococcus aureus infection
CPT/HCPCS: 36415; 70450; 72125; 80053; 81001; 83605; 85025; 87324; 99285

== ENCOUNTER 2017-02-15 05:11 | Inpatient (IN) | payer MEDICARE, OTHER ==
[2017-02-15] MEDS ORDERED: NORMAL SALINE 500 ML IV ONE ×2 (05:22→07:08)
--- NOTE | 2017-02-15 05:27 | ER Document Report ---
Doctor's Note Notes: 02/15/17 05:25 A quick triage evaluation of the patient. Patient is a 1-year-old female who presents with complaint of a possible syncopal episode. Patient says she woke up and saw 3:00 in the clock. She is symptoms 3 PM. She therefore went to the shower and became dizzy and fell. She is unsure if she lost consciousness. She complains of hitting her head. She complains of neck pain and low back pain. She denies any chest pain. No palpitations. No shortness of breath. No abdominal pain. No pain to her extremities. She says that she has been little more dizzy when standing the last few days. She denies noticing any blood in her stool. No black tarry stools. No recent fevers or infections. On exam patient does have some neck tenderness. She was placed in cervical collar. I will obtain a CT scan of her head. She is currently neurologically intact. Her blood pressure is a little bit on the low side at 89/50. Have a history of CHF and therefore will just give her 500 mL of normal saline start off with. Patient's lung wong currently are clear. She has no focal neurologic deficits on exam. Blood work has been ordered as well. She will be placed on revenue officer. They are obtaining EKG at this time.
[2017-02-15 05:58] LABS: ALANINE AMINOTRANSFERASE 27 U/L (9-52); ALBUMIN 3.5 g/dL (3.5-5.0); ALKALINE PHOSPHATASE 192 U/L (38-126); ANION GAP 12 (5-19); ASPARTATE AMINO TRANSFERASE 26 U/L (14-36); BILIRUBIN,DIRECT 0.4 mg/dL (0.0-0.4); BILIRUBIN,TOTAL 1.6 mg/dL (0.2-1.3); BLOOD UREA NITROGEN 23 mg/dL (7-20); CALCIUM 9.2 mg/dL (8.4-10.2); CARBON DIOXIDE 24 mmol/L (22-30); CHLORIDE 99 mmol/L (98-107); CREATINE KINASE 23 U/L (30-135); CREATININE RESULT 1.25 mg/dL (0.52-1.25); GLUCOSE 193 mg/dL (75-110); POTASSIUM 5.5 mmol/L (3.6-5.0); SODIUM 134.8 mmol/L (137-145)
--- NOTE | 2017-02-15 06:08 | RADIOLOGY REPORT (SQ) ---
EXAM DESCRIPTION: CT HEAD WITHOUT COMPLETED DATE/TIME: 02/15/2017 5:57 am REASON FOR STUDY: trauma COMPARISON: 01/26/2017. TECHNIQUE: Axial images acquired through the brain without intravenous contrast. Images reviewed wi th bone, brain and subdural windows. Images stored on PACS. All CT scanners at this facility use dose modulation, iterative reconstruction, and/or weight based d osing when appropriate to reduce radiation dose to as low as reasonably achievable (ALARA). [facility]: Dose Right [facility]: CareDose [facility]: Dose Right [facility]: Teradose 4D [facility]: [employer] RADIATION DOSE: Up-to-date CT equipment and radiation dose reduction techniques were employed. CTDIv ol: 55.3 mGy. DLP: 996 mGy-cm. mGy. LIMITATIONS: None. FINDINGS: VENTRICLES: Normal size and contour. CEREBRUM: No masses. No hemorrhage. No midline shift. Normal krueger/white matter differentiation. N o evidence for acute infarction. Moderate encephalomalacia of the right posterior parietal lobe. 1. 0 cm lacunar infarct of the left basal ganglia. [id number] white matter microangiopathy patter n. CEREBELLUM: No masses. No hemorrhage. No alteration of density. No evidence for acute infarction. EXTRAAXIAL SPACES: No fluid collections. No masses. ORBITS AND GLOBE: No intra- or extraconal masses. Normal contour of globe without masses. CALVARIUM: No fracture. PARANASAL SINUSES: No fluid or mucosal thickening. SOFT TISSUES: No mass or hematoma. OTHER: No other significant finding. IMPRESSION: No acute findings. 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 TECHNICAL DOCUMENTATION: JOB ID: [id number] Quality ID # [id number]: Final reports with documentation of one or more dose reduction techniques (e.g., Au tomated exposure control, adjustment of the mA and/or kV according to patient size, use of iterative reconstruction technique) 2010 [employer]- All Rights Reserved
[2017-02-15 06:09] LABS: CREATINE KINASE MB 0.37 ng/mL (<4.55)
--- NOTE | 2017-02-15 06:09 | RADIOLOGY REPORT (SQ) ---
EXAM DESCRIPTION: CHEST SINGLE VIEW COMPLETED DATE/TIME: 02/15/2017 5:59 am REASON FOR STUDY: syncope COMPARISON: 12/19/2016. EXAM PARAMETERS: NUMBER OF VIEWS: One view. TECHNIQUE: Single frontal radiographic view of the chest acquired. RADIATION DOSE: NA LIMITATIONS: None. FINDINGS: LUNGS AND PLEURA: No opacities, masses or pneumothorax. No pleural effusion. MEDIASTINUM AND HILAR STRUCTURES: No masses. Contour normal. HEART AND VASCULAR STRUCTURES: Borderline cardiac silhouette size. Atherosclerosis. BONES: No acute findings. HARDWARE: None in the chest. OTHER: No other significant finding. IMPRESSION: NO ACUTE RADIOGRAPHIC FINDING IN THE CHEST. TECHNICAL DOCUMENTATION: JOB ID: [id number]
[2017-02-15 06:13] LABS: TROPONIN I < 0.012 ng/mL
--- NOTE | 2017-02-15 06:13 | RADIOLOGY REPORT (SQ) ---
EXAM DESCRIPTION: CT CERVICAL SPINE WITHOUT COMPLETED DATE/TIME: 02/15/2017 5:57 am REASON FOR STUDY: trauma COMPARISON: 01/26/2017. TECHNIQUE: Axial images acquired through the cervical spine without intravenous contrast. Images re viewed with lung, soft tissue and bone windows. Reconstructed coronal and sagittal MPR images review ed. Images stored on PACS. All CT scanners at this facility use dose modulation, iterative reconstruction, and/or weight based d osing when appropriate to reduce radiation dose to as low as reasonably achievable (ALARA). [facility]: Dose Right [facility]: CareDose [facility]: Dose Right [facility]: Teradose 4D [facility]: Smart [employer]am RADIATION DOSE: Up-to-date CT equipment and radiation dose reduction techniques were employed. CTDIv ol: 20.5 mGy. DLP: 417 mGy-cm. mGy. LIMITATIONS: None. FINDINGS: ALIGNMENT: Anatomic. Moderate straightening. MINERALIZATION: Normal. VERTEBRAL BODIES: No fractures or dislocation. DISCS: Moderate desiccated disc bulge/ protrusion between the C4 and C7 levels with [id number]-lwaifbad spinal canal stenosis worst at the C6-C7 level. Mild bilateral C 7 and C6 foraminal stenoses. FACETS, LATERAL MASSES, POSTERIOR ELEMENTS: Mild spondylosis. HARDWARE: None in the spine. VISUALIZED RIBS: No fractures. LUNG APICES AND SOFT TISSUES: No significant or acute findings. OTHER: Atherosclerosis. IMPRESSION: No acute findings. Moderate desiccated-protrusive disc disease between the C4 and C7 le vels. TECHNICAL DOCUMENTATION: JOB ID: [id number] Quality ID # [id number]: Final reports with documentation of one or more dose reduction techniques (e.g., Au tomated exposure control, adjustment of the mA and/or kV according to patient size, use of iterative reconstruction technique) 2010 [employer]- All Rights Reserved
[2017-02-15 06:24] LABS: HEMATOCRIT 49.9 % (36.0-47.0); HEMOGLOBIN 14.9 g/dL (12.0-15.5); MEAN CORPUSCULAR HEMOGLOBIN 19.5 pg (27.0-33.4); MEAN CORPUSCULAR HGB CONC 29.8 g/dL (32.0-36.0); MEAN CORPUSCULAR VOLUME 66 fl (80-97); RED BLOOD COUNT 7.62 10^6/uL (3.72-5.28); RED CELL DISTRIBUTION WIDTH 22.8 % (11.5-14.0)
--- NOTE | 2017-02-15 06:24 | RADIOLOGY REPORT (SQ) ---
EXAM DESCRIPTION: CT LUMBAR SPINE WITHOUT COMPLETED DATE/TIME: 02/15/2017 5:57 am REASON FOR STUDY: trauma COMPARISON: None. TECHNIQUE: Axial images acquired through the lumbar spine without intravenous contrast. Images revi ewed with lung, soft tissue and bone windows. Reconstructed coronal and sagittal MPR images reviewed . All images stored on PACS. All CT scanners at this facility use dose modulation, iterative reconstruction, and/or weight based d osing when appropriate to reduce radiation dose to as low as reasonably achievable (ALARA). [facility]: Dose Right [facility]: CareDose [facility]: Dose Right [facility]: Teradose 4D [facility]: [employer] RADIATION DOSE: mGy. LIMITATIONS: None. FINDINGS: SEGMENTATION: Normal. No transitional anatomy. ALIGNMENT: 0.6 cm degenerative L4 anterolisthesis. Moderate levo convexity. VERTEBRAL BODIES: No fractures. No dislocation. No acute findings. DISCS: Moderate desiccated -protrusive disc disease. L1-L2: Small disc bulge causes mild spinal canal stenosis. L2-L3: Mild thecal sac compression due to a small -moderate disc bulge. Mild bilateral to foraminal stenosis. L3-L4: Moderate thecal sac compression due to a moderate disc bulge. Mild -moderate bilateral 3 for aminal stenosis, left more than right. L4-L5: Up to moderate-severe thecal sac compression estimated and mild bilateral L4 foraminal narrow ing due to moderate spondylosis and grade 1, 0.6 cm L4 anterolisthesis, and small desiccated disc bul ge. L5-S1: Small desiccated disc bulge. Mild spondylosis. Mild left foraminal stenosis pre PEDICLES, TRANSVERSE PROCESSES: No fractures. No dislocation. No acute findings. FACETS, POSTERIOR ELEMENTS: No fractures. No dislocation. No spinal stenosis. HARDWARE: None in the spine. VISUALIZED RIBS: No fractures. SOFT TISSUES: No significant or acute finding in adjacent soft tissues. OTHER: Mild interstitial markings of the lung bases. Mild bi hilar peribronchial infiltrate. Athero sclerosis. Moderate colonic diverticulosis. Moderate bilateral sacroiliac osteoarthritis. 4.6 cm l ikely benign exophytic cyst of the right kidney, upper pole, not definitively characterized. IMPRESSION: No acute findings. Moderate -severe estimated L4-5 spinal canal stenosis due to moderat e spondylosis and grade 1 degenerative L4 anterolisthesis. TECHNICAL DOCUMENTATION: JOB ID: [id number] Quality ID # [id number]: Final reports with documentation of one or more dose reduction techniques (e.g., Au tomated exposure control, adjustment of the mA and/or kV according to patient size, use of iterative reconstruction technique) 2010 [employer]- All Rights Reserved
[2017-02-15 06:30] LABS: HGB HCT DIFFERENCE -5.2
[2017-02-15 06:35] LABS: BAND NEUTROPHILS % (MANUAL) 4 % (3-5); BASOPHILS % (MANUAL) 0 % (0-2); EOSINOPHILS % (MANUAL) 1 % (0-6); LYMPHOCYTES % (MANUAL) 4 % (13-45); TOTAL CELLS COUNTED 100
[2017-02-15 06:37] LABS: ANISOCYTOSIS 1+; OVALOCYTES SLIGHT; POIKILOCYTOSIS SLIGHT; POLYCHROMASIA SLIGHT; TOXIC VACUOLATION PRESENT
[2017-02-15 07:03] LABS: APPEARANCE,URINE SLIGHTLY-CLOUDY; BILIRUBIN,URINE NEGATIVE (NEGATIVE); GLUCOSE, URINE NEGATIVE (NEGATIVE); KETONES,URINE NEGATIVE (NEGATIVE); LEUKOCYTE ESTERASE,URINE SMALL (NEGATIVE); NITRITE,URINE NEGATIVE (NEGATIVE); PROTEIN,URINE 30 mg/dL (NEGATIVE); URINE SPECIFIC GRAVITY 1.016; UROBILINOGEN,URINE NEGATIVE mg/dL (<2.0)
--- NOTE | 2017-02-15 07:15 | RADIOLOGY REPORT (SQ) ---
EXAM DESCRIPTION: HIP RIGHT AP/LATERAL COMPLETED DATE/TIME: 02/15/2017 7:01 am REASON FOR STUDY: fall pain COMPARISON: 05/22/2014. CT, 12/09/2016. NUMBER OF VIEWS: Three views. TECHNIQUE: AP pelvis and additional frog-leg view of the right hip. LIMITATIONS: None. FINDINGS: MINERALIZATION: Normal. RIGHT HIP: No fracture or dislocation. No worrisome bone lesions. Mild osteoarthritis. LEFT HIP: No fracture or dislocation. No worrisome bone lesions. PUBIS AND ISCHIUM: No fracture. Moderate osteitis pubis condensans. PELVIS: No fracture. Moderate chronic sacroiliac osteoarthritis, left more than right, stable. SACRUM: No fracture or dislocation. No worrisome bone lesions. LOWER LUMBAR SPINE: Moderate left lumbosacral spondylosis. SOFT TISSUES: No findings. OTHER: No other significant finding. IMPRESSION: No acute findings. Stable. TECHNICAL DOCUMENTATION: JOB ID: [id number] [employer]- All Rights Reserved
[2017-02-15] MEDS ORDERED: IPRATROPIUM/ALBUTEROL 0.5-2.5 MG/3 ML AMPUL NEB PRN (08:39)
[2017-02-15] MEDS ORDERED: ACETAMINOPHEN 325 MG TABLET PO PRN (08:39)
[2017-02-15] MEDS ORDERED: NORMAL SALINE 1000 ML 1,000 ML IV PRN (08:39)
[2017-02-15] MEDS ORDERED: ONDANSETRON HCL INJ/PF 4 MG/2 ML SDV IV PRN (08:39)
--- NOTE | 2017-02-15 08:42 | ER Document Report ---
ED General - General Chief Complaint: Fall Stated Complaint: DIZZINESS Time Seen by Provider: 02/15/17 05:22 TRAVEL OUTSIDE OF THE [place] IN LAST 30 DAYS: No - HPI Patient complains to provider of: Fall right hip pain Notes: Patient coming in after a fall. Patient states she was in the shower when she slipped on the slip and fell down patient states that she was on the ground for approximately 30 minutes to 60 minutes. Patient was arrived by EMS was found to be a little hypoxic and hypotensive. Patient otherwise states no recent activities no nausea no vomiting no chest pain no abdominal pain. Patient was complaining of lower back pain apparently upon arrival. Head CT lumbar spine chest x-ray and lab work was performed prior to my arrival. Patient did have history of CHF and was given 500 cc bolus. Upon my evaluation patient's blood pressure still remained 100 systolic. Patient also now requiring 2 L of oxygen patient states he does not wear oxygen at home. Denies any recent travel denies fevers chills nausea vomiting at home - Related Data Allergies/Adverse Reactions: No Known Allergies Allergy (Unverified 01/21/17 13:58) Past Medical History - Social History Smoking Status: Unknown if Ever Smoked Family History: CAD, COPD, DM, Hyperlipidemia, Hypertension, Malignancy - Father with lung cancer, Other - Past Medical History Cardiac Medical History: Reports: Hx Congestive Heart Failure - Diastolic, Hx Heart Attack - EKG suggests probable prior infarction, Hx Hypercholesterolemia, Hx Hypertension, Hx Pulmonary Embolism - Distant history Pulmonary Medical History: Denies: Hx Asthma, Hx COPD, Hx Sleep Apnea Neurological Medical History: Denies: Hx Seizures Endocrine Medical History: Reports: Hx Diabetes Mellitus Type 1, Hx Diabetes Mellitus Type 2. Denies: Hx Hyperthyroidism, Hx Hypothyroidism Renal/ Medical History: Denies: Hx End Stage Renal Disease, Hx Peritoneal Dialysis Malignancy Medical History: Reports: Hx Skin Cancer - Excised from her nose. GI Medical History: Reports: Hx Gastroesophageal Reflux Disease. Denies: Hx Cirrhosis, Hx Hepatitis Musculoskeltal Medical History: Reports Hx Arthritis, Reports Hx Musculoskeletal Deformity Skin Medical History: Denies Hx Eczema, Denies Hx Psoriasis Psychiatric Medical History: Reports: Hx Anxiety, Hx Depression Infectious Medical History: Reports: Hx MRSA - Quite distant history. Denies: Hx C-Diff, Hx Hepatitis Past Surgical History: Reports: Hx Abdominal Surgery, Hx Appendectomy, Hx Hysterectomy, Hx Tonsillectomy, Other - Cardiac loop recorder, bilateral cataract surgery - Immunizations Hx Diphtheria, Pertussis, Tetanus Vaccination: No Hx Pneumococcal Vaccination: 04/29/13 Review of Systems - Review of Systems Constitutional: No symptoms reported EENT: No symptoms reported Cardiovascular: No symptoms reported Respiratory: No symptoms reported Gastrointestinal: No symptoms reported Genitourinary: No symptoms reported Female Genitourinary: No symptoms reported Musculoskeletal: Other - Fall right hip pain Skin: No symptoms reported Hematologic/Lymphatic: No symptoms reported Neurological/Psychological: No symptoms reported Physical Exam - Vital signs Vitals: BP Pulse Ox 89/50 L 91 L 02/15/17 05:16 02/15/17 05:16 Interpretation: Hypotensive, Hypoxic - General General appearance: Appears well, Alert - HEENT Head: Normocephalic, Atraumatic Eyes: Normal Pupils: PERRL - Respiratory Respiratory status: No respiratory distress Chest status: Nontender Breath sounds: Normal Chest palpation: Normal - Cardiovascular Rhythm: Regular Heart sounds: Normal auscultation Murmur: No - Abdominal Inspection: Normal Distension: No distension Bowel sounds: Normal Tenderness: Nontender Organomegaly: No organomegaly - Back Back: Normal, Nontender - Extremities General upper extremity: Normal inspection, Nontender, Normal color, Normal ROM , Normal temperature General lower extremity: Normal inspection, Tender - Tenderness palpation of the right hip. Patient otherwise has not had any bony point tenderness., Normal color, Normal ROM, Normal temperature, Normal weight bearing. No: Cynthia' s sign - Neurological Neuro grossly intact: Yes Cognition: Normal Orientation: AAOx4 [place] Coma Scale Eye Opening: Spontaneous [place] Coma Scale Verbal: Oriented [place] Coma Scale Motor: Obeys Commands Ziyad Coma Scale Total: 15 Speech: Normal Motor strength normal: LUE, RUE, LLE, RLE Sensory: Normal - Psychological Associated symptoms: Normal affect, Normal mood - Skin Skin Temperature: Warm Skin Moisture: Dry Skin Color: Normal Course - Re-evaluation Re-evalutation: 02/15/17 13:02 Patient lab work does show a chronic leukocytosis. No signs of any infection can be found the patient's workup. Abdomen soft nontender. Patient continues to require oxygen upon removing the patient from oxygen SPO2 does get down to 85 %. Patient's blood pressure has improved after a total of 1 L of fluid being given. Patient's orthostatics boost do remain positive. Patient case was discussed with hospitalist will admit for further observation - Vital Signs Vital signs: Temp Pulse Resp BP Pulse Ox 98 F 77 15 118/50 L 96 02/15/17 05:30 02/15/17 08:29 02/15/17 07:15 02/15/17 08:29 02/15/17 07:15 - Laboratory Result Diagrams: 02/15/17 05:26 02/15/17 05:26 Laboratory results interpreted by me: 02/15/17 02/15/17 02/15/17 05:26 05:26 06:30 WBC 39.8 H* RBC 7.62 H Hct 49.9 H MCV 66 L MCH 19.5 L MCHC 29.8 L RDW 22.8 H Seg Neuts % (Manual) 86 H Lymphocytes % (Manual) 4 L Abs Neuts (Manual) 35.8 H Abs Monocytes (Manual) 2.0 H Sodium 134.8 L Potassium 5.5 H BUN 23 H Est GFR ( Amer) 50 L Est GFR (Non-Af Amer) 41 L Glucose 193 H Total Bilirubin 1.6 H Alkaline Phosphatase 192 H Creatine Kinase 23 L Urine Protein 30 H Ur Leukocyte Esterase SMALL H Discharge - Discharge Clinical Impression: Hypoxia, Orthostatic hypotension Fall Qualifiers: Encounter type: initial encounter Qualified Code(s): W19.XXXA - Unspecified fall, initial encounter Morbid obesity Qualifiers: Obesity type: unspecified obesity type Qualified Code(s): E66.01 - Morbid ( severe) obesity due to excess calories Condition: Fair Disposition: ADMITTED INPATIENT Admitting Provider: Hospitalist [facility] [place] Unit Admitted: [facility]
[2017-02-15] MEDS ORDERED: LIDOCAINE 5% (700 MG) TRANSDERMAL ADH..PATCH TP ONE ×2 (08:45→13:00)
[2017-02-15] MEDS ORDERED: GLUCAGON,HUMAN RECOMB 1 MG INJ IM PRN (09:12)
[2017-02-15] MEDS ORDERED: DEXTROSE 40% GEL 15 GM TUBE PO PRN ×2 (09:12)
[2017-02-15] MEDS ORDERED: DEXTROSE 50%-WATER 25 GM/50 ML DISP.SYRIN IV PRN ×2 (09:12)
--- NOTE | 2017-02-15 10:31 | RADIOLOGY REPORT (SQ) ---
EXAM DESCRIPTION: CTA CHEST COMPLETED DATE/TIME: 02/15/2017 10:00 am REASON FOR STUDY: hypoxia shortness of breath COMPARISON: CT angio chest 11/12/2016 AP chest 02/15/2017 TECHNIQUE: CT scan of the chest performed using helical scanning technique with dynamic intravenous contrast injection. Images reviewed with lung, soft tissue and bone windows. Reconstructed coronal and sagittal MPR images reviewed. Additional 3 dimensional post-processing performed to develop Maximal Intensity Projection images ([place] P). All images stored on PACS. All CT scanners at this facility use dose modulation, iterative reconstruction, and/or weight based d osing when appropriate to reduce radiation dose to as low as reasonably achievable (ALARA). [facility]: Dose Right [facility]: CareDose [facility]: Dose Right [facility]: Teradose 4D [facility]: [employer] CONTRAST TYPE AND DOSE: contrast/concentration: Isovue 370.00 mg/ml; Total Contrast Delivered: 80.0 ml; Total Saline Delivered: 86.4 ml RENAL FUNCTION: Creatinine 1.2 RADIATION DOSE: Up-to-date CT equipment and radiation dose reduction techniques were employed. CTDIv ol: 16.5 - 26.9 mGy. DLP: 951 mGy-cm. . LIMITATIONS: None. FINDINGS: LUNGS AND PLEURA: No masses, infiltrates, pneumothorax. No pleural effusions, calcificati ons. AORTA AND GREAT VESSELS: No aneurysm or dissection. HEART: No pericardial effusion. PULMONARY ARTERIES: No emboli visualized in the main pulmonary arteries or the segmental branches. HILAR AND MEDIASTINAL STRUCTURES: Stable pretracheal 1 x 1.6 cm lymph node unchanged from 11/12/2016 HARDWARE: None in the chest. UPPER ABDOMEN: Calcified gallstone in the gallbladder neck axial image 117. Mild stable splenomegaly . THYROID AND OTHER SOFT TISSUES: No masses. No adenopathy. BONES: No acute or significant finding. 3D MIPS: Confirm above findings. OTHER: No other significant finding. IMPRESSION: NORMAL CTA OF THE CHEST. NO PULMONARY EMBOLI. TECHNICAL DOCUMENTATION: JOB ID: [id number] Quality ID # [id number]: Final reports with documentation of one or more dose reduction techniques (e.g., Au tomated exposure control, adjustment of the mA and/or kV according to patient size, use of iterative reconstruction technique) 2010 [employer]- All Rights Reserved
--- NOTE | 2017-02-15 10:36 | PDOC H&P ---
History of Present Illness Admission Date/PCP: 02/15/2017 Dr. Kamara History of Present Illness: ORACIO PEDROZA is a 81 year old female who reports a slip and fall in the shower. She complains of left hip discomfort. She denies any loss of consciousness. She denies any headache. She denies any focal weakness. Patient reports that her diarrhea had resolved prior to patient denied any antecedent illness. She reports that she was feeling much better than previous prior to admission. Patient does note that she has a history of pulmonary embolus. She is referred to the hospitalist service for orthostatic hypotension , mild renal insufficiency, and hypoxia. Past Medical History Cardiac Medical History: Reports: Congestive Heart Failure - Diastolic, Myocardial Infarction - EKG suggests probable prior infarction, Hyperlipidema, Hypertension, Pulmonary Embolism - Distant history Pulmonary Medical History: Denies: Asthma, Chronic Obstructive Pulmonary Disease (COPD), Sleep Apnea Neurological Medical History: Denies: Seizures Endocrine Medical History: Reports: Diabetes Mellitus Type 2 Denies: Hyperthyroidism, Hypothyroidism Renal/ Medical History: Denies: End Stage Renal Disease Malignancy Medical History: Reports: Skin Cancer - Excised from her nose. 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 Past Surgical History Past Surgical History: Reports: Appendectomy, Hysterectomy, Tonsillectomy, Other - Cardiac loop recorder, bilateral cataract surgery Social History Smoking Status: Never Smoker Frequency of Alcohol Use: None Hx Recreational Drug Use: No Drugs: None Hx Prescription Drug Abuse: No - Advance Directive Resuscitation Status: Do Not Resuscitate Surrogate healthcare decision maker:: Daughter Family History Family History: CAD, COPD, DM, Hyperlipidemia, Hypertension, Malignancy - Father with lung cancer, Other Parental Family History Reviewed: Yes Children Family History Reviewed: Yes Sibling(s) Family History Reviewed.: Yes Medication/Allergy Home Medications: Aspirin [Ecotrin 81 mg EC Tablet] 81 mg PO DAILY 01/17/17 Clopidogrel Bisulfate [Plavix 75 mg Tablet] 75 mg PO DAILY 01/17/17 Gabapentin [Neurontin 300 mg Capsule] 300 mg PO Q12 01/17/17 Isosorbide Mononitrate [Isosorbide Mononitrate ER] 30 mg PO DAILY 01/17/17 Losartan Potassium [Cozaar 50 mg Tablet] 50 mg PO DAILY 01/17/17 Metoprolol Tartrate [Lopressor 100 mg Tablet] 100 mg PO Q12 01/17/17 Rosuvastatin Calcium [Crestor 10 mg Tablet] 10 mg PO DAILY 01/17/17 Sitagliptin Phosphate [Januvia] 100 mg PO DAILY 01/17/17 Metronidazole [Flagyl 500 mg Tablet] 500 mg PO Q6H #24 tablet 01/24/17 Ondansetron [Zofran Odt 4 mg Tablet] 4 mg PO Q4HP PRN #10 tab.rapdis 01/24/17 Vancomycin HCl [Vancocin HCl] 250 mg PO Q6H #24 capsule 01/24/17 Allergies/Adverse Reactions: No Known Allergies Allergy (Unverified 01/21/17 13:58) Review of Systems Constitutional: ABSENT: chills, fever(s), headache(s), weight gain, weight loss Eyes: ABSENT: visual disturbances Ears: ABSENT: hearing changes Cardiovascular: ABSENT: chest pain, dyspnea on exertion, edema, orthropnea, palpitations Respiratory: ABSENT: cough, hemoptysis Gastrointestinal: ABSENT: abdominal pain, constipation, diarrhea, hematemesis, hematochezia, nausea, vomiting Genitourinary: ABSENT: dysuria, hematuria Musculoskeletal: ABSENT: joint swelling Integumentary: ABSENT: rash, wounds Neurological: ABSENT: abnormal gait, abnormal speech, confusion, dizziness, focal weakness, syncope Psychiatric: ABSENT: anxiety, depression, homidical ideation, suicidal ideation Endocrine: ABSENT: cold intolerance, heat intolerance, polydipsia, polyuria Hematologic/Lymphatic: ABSENT: easy bleeding, easy bruising Physical Exam Vital Signs: Temp Pulse Resp BP Pulse Ox 98 F 77 15 118/50 L 96 02/15/17 05:30 02/15/17 08:29 02/15/17 07:15 02/15/17 08:29 02/15/17 07:15 Intake & Output 02/14/17 02/15/17 02/16/17 06:59 06:59 06:59 Weight 98.883 kg General appearance: PRESENT: no acute distress, obese, well-developed Head exam: PRESENT: atraumatic, normocephalic Eye exam: PRESENT: conjunctiva pink, EOMI, PERRLA. ABSENT: conjunctival injection, scleral icterus Ear exam: PRESENT: normal external ear exam Mouth exam: PRESENT: dry mucosa, tongue midline Neck exam: ABSENT: JVD, lymphadenopathy, thyromegaly, tracheal deviation Respiratory exam: PRESENT: clear to auscultation carmen, symmetrical, unlabored. ABSENT: rales, rhonchi, wheezes Cardiovascular exam: PRESENT: RRR, +S1, +S2. ABSENT: diastolic murmur, rubs, systolic murmur Pulses: PRESENT: normal dorsalis pedis pul Vascular exam: PRESENT: normal capillary refill GI/Abdominal exam: PRESENT: normal bowel sounds, soft. ABSENT: distended, firm , guarding, mass, organolmegaly, rebound, rigid, tenderness Rectal exam: PRESENT: deferred Extremities exam: PRESENT: full ROM. ABSENT: calf tenderness, clubbing, pedal edema Neurological exam: PRESENT: alert, awake, oriented to person, oriented to place , oriented to time, oriented to situation, CN II-XII grossly intact. ABSENT: motor sensory deficit Psychiatric exam: PRESENT: appropriate affect, normal mood. ABSENT: homicidal ideation, suicidal ideation Skin exam: PRESENT: dry, intact, warm. ABSENT: cyanosis, rash Results Laboratory Results: 02/15/17 05:26 02/15/17 05:26 02/15/17 02/15/17 02/15/17 05:26 05:26 06:30 WBC 39.8 H* RBC 7.62 H Hgb 14.9 Hct 49.9 H MCV 66 L MCH 19.5 L MCHC 29.8 L RDW 22.8 H Plt Count 307 Seg Neutrophils % Not Reportable Lymphocytes % Not Reportable Monocytes % Not Reportable Eosinophils % Not Reportable Basophils % Not Reportable Absolute Neutrophils Not Reportable Absolute Lymphocytes Not Reportable Absolute Monocytes Not Reportable Absolute Eosinophils Not Reportable Absolute Basophils Not Reportable Sodium 134.8 L Potassium 5.5 H Chloride 99 Carbon Dioxide 24 Anion Gap 12 BUN 23 H Creatinine 1.25 Est GFR ( Amer) 50 L Est GFR (Non-Af Amer) 41 L Glucose 193 H Lactic Acid Calcium 9.2 Total Bilirubin 1.6 H AST 26 ALT 27 Alkaline Phosphatase 192 H Total Protein 7.0 Albumin 3.5 Urine Color YELLOW Urine Appearance SLIGHTLY-CLOUDY Urine pH 6.0 Ur Specific [place] 1.016 Urine Protein 30 H Urine Glucose (UA) NEGATIVE Urine Ketones NEGATIVE Urine Blood NEGATIVE Urine Nitrite NEGATIVE Ur Leukocyte Esterase SMALL H Urine WBC (Auto) 17 Urine RBC (Auto) 2 02/15/17 07:12 WBC RBC Hgb Hct MCV MCH MCHC RDW Plt Count Seg Neutrophils % Lymphocytes % Monocytes % Eosinophils % Basophils % Absolute Neutrophils Absolute Lymphocytes Absolute Monocytes Absolute Eosinophils Absolute Basophils Sodium Potassium Chloride Carbon Dioxide Anion Gap BUN Creatinine Est GFR ( Amer) Est GFR (Non-Af Amer) Glucose Lactic Acid 1.3 Calcium Total Bilirubin AST ALT Alkaline Phosphatase Total Protein Albumin Urine Color Urine Appearance Urine pH Ur Specific [place] Urine Protein Urine Glucose (UA) Urine Ketones Urine Blood Urine Nitrite Ur Leukocyte Esterase Urine WBC (Auto) Urine RBC (Auto) 02/15/17 02/15/17 05:26 05:26 Creatine Kinase 23 L CK-MB (CK-2) 0.37 Troponin I < 0.012 Impressions: Chest X-Ray 02/15/17 05:22 IMPRESSION: NO ACUTE RADIOGRAPHIC FINDING IN THE CHEST. Cervical Spine CT 02/15/17 05:23 IMPRESSION: No acute findings. Moderate desiccated-protrusive disc disease between the C4 and C7 levels. Head CT 02/15/17 05:23 IMPRESSION: No acute findings. Chronic right posterior parietal infarct and chronic left lacunar infarct. Lumbar Spine CT 02/15/17 05:23 IMPRESSION: No acute findings. Moderate -severe estimated L4-5 spinal canal stenosis due to moderate spondylosis and grade 1 degenerative L4 anterolisthesis. Hip/Pelvis X-Ray 02/15/17 06:39 IMPRESSION: No acute findings. Stable. Assessment & Plan - Diagnosis (1) SIRS (systemic inflammatory response syndrome) Is this a current diagnosis for this admission?: YesPlan: Criteria for this however she has a chronically elevated white count due to CLL. (2) Fall Qualifiers: Encounter type: initial encounter Qualified Code(s): W19.XXXA - Unspecified fall, initial encounter Is this a current diagnosis for this admission?: YesPlan: Undergone multiple imaging studies which revealed significant osteoarthritis. No acute fracture is noted at this time. Will give patient morphine IV and will monitor her for response given her age and obesity with great concerns for treating her pain with narcotics. Have physical therapy evaluate patient. (3) Orthostatic hypotension Is this a current diagnosis for this admission?: YesPlan: Rehydrate patient. Suspect she may become mildly hypovolemic as an outpatient. (4) GERD (gastroesophageal reflux disease) Qualifiers: Esophagitis presence: without esophagitis Qualified Code(s): K21.9 - Gastro-esophageal reflux disease without esophagitis Is this a current diagnosis for this admission?: YesPlan: transition to h2 blockers (5) Urinary tract infection Qualifiers: Urinary tract infection type: site unspecified Hematuria presence: without hematuria Qualified Code(s): N39.0 - Urinary tract infection, site not specified Is this a current diagnosis for this admission?: YesPlan: Patient on Rocephin. Pending culture (6) Diastolic CHF Qualifiers: Congestive heart failure chronicity: chronic Qualified Code(s): I50.32 - Chronic diastolic (congestive) heart failure Is this a current diagnosis for this admission?: YesPlan: Currently compensated, but will be judicious with fluid administration in light of this. (7) HTN (hypertension) Qualifiers: Hypertension type: essential hypertension Qualified Code(s): I10 - Essential (primary) hypertension Is this a current diagnosis for this admission?: YesPlan: Hold secondary to hypotension (8) History of pulmonary embolism Is this a current diagnosis for this admission?: YesPlan: Obtain CTA (9) DVT prophylaxis Is this a current diagnosis for this admission?: Yes (10) Severe obesity (BMI 35.0-35.9 with comorbidity) Is this a current diagnosis for this admission?: Yes (11) History of CVA (cerebrovascular accident) Is this a current diagnosis for this admission?: Yes (12) Diabetes mellitus type II, controlled Qualifiers: Diabetes mellitus complication status: with circulatory complication Diabetes mellitus complication detail: with other circulatory complications Diabetes mellitus retirement insulin use: with terminal carman use Qualified Code(s): E11.59 - Type 2 diabetes mellitus with other circulatory complications Is this a current diagnosis for this admission?: YesPlan: Patient on diabetic diet and sliding scale in addition to her home insulin. - Time Time Spent: 50 to 70 Minutes Medications reviewed and adjusted accordingly: Yes Anticipated discharge: Home with Homehealth, Acute Rehab Within: within 72 hours - Inpatient Certification Based on my medical assessment, after consideration of the patient's comorbidities, presenting symptoms, or acuity I expect that the services needed warrant INPATIENT care.: Yes I certify that my determination is in accordance with my understanding of Medicare's requirements for reasonable and necessary INPATIENT services [42 CFR 412.3e].: Yes Medical Necessity: Need For IV Fluids, Need for IV Antibiotics Post Hospital Care: D/C Pedorthist Documentation
--- NOTE | 2017-02-15 12:46 | EKG REPORT ---
SEVERITY:- BORDERLINE ECG - SINUS RHYTHM BORDERLINE PROLONGED QT INTERVAL : Confirmed by: Seble Miguel MD 15-Feb-2017 12:44:44
[2017-02-15] MEDS: MORPHINE SULFATE 10 MG/ML INJ IV PRN ×2 (13:00→22:55)
[2017-02-15] MEDS: DOCUSATE SODIUM 100 MG CAPSULE PO SCH ×2 (13:00→18:25)
[2017-02-15] MEDS: HEPARIN SOD (PORCINE) 5,000 UNIT/ML 1 ML SYRINGE SUBCUT SCH ×2 (13:01→22:55)
[2017-02-15] MEDS: INSULIN LISPRO 100 UNIT/ML 3 ML VIAL SUBCUT PRN ×2 (14:48→22:55)
[2017-02-15] MEDS: OXYCODONE-ACETAMINOPHEN 5-325 MG TABLET PO PRN ×2 (14:52→18:25)
[2017-02-15 17:56] LABS: PATH REVIEW PATHOLOGIST REVIEWED
[2017-02-16] MEDS: HEPARIN SOD (PORCINE) 5,000 UNIT/ML 1 ML SYRINGE SUBCUT SCH ×3 (06:09→21:35)
[2017-02-16] MEDS: MORPHINE SULFATE 10 MG/ML INJ IV PRN (06:18)
[2017-02-16 08:16] LABS: ANION GAP 9 (5-19); BLOOD UREA NITROGEN 16 mg/dL (7-20); CALCIUM 9.9 mg/dL (8.4-10.2); CARBON DIOXIDE 28 mmol/L (22-30); CHLORIDE 102 mmol/L (98-107); CREATININE RESULT 0.86 mg/dL (0.52-1.25); GLUCOSE 202 mg/dL (75-110)
[2017-02-16 08:34] LABS: MEAN CORPUSCULAR HEMOGLOBIN 18.9 pg (27.0-33.4); MEAN CORPUSCULAR HGB CONC 28.2 g/dL (32.0-36.0); MEAN CORPUSCULAR VOLUME 67 fl (80-97); RED BLOOD COUNT 7.92 10^6/uL (3.72-5.28); RED CELL DISTRIBUTION WIDTH 21.7 % (11.5-14.0)
[2017-02-16 08:37] LABS: BAND NEUTROPHILS % (MANUAL) 2 % (3-5); BASOPHILS % (MANUAL) 0 % (0-2); EOSINOPHILS % (MANUAL) 0 % (0-6); LYMPHOCYTES % (MANUAL) 5 % (13-45); TOTAL CELLS COUNTED 100
[2017-02-16 08:39] LABS: TOXIC GRANULATION SLIGHT
[2017-02-16 08:40] LABS: ANISOCYTOSIS 3+; MICROCYTOSIS 2+; POLYCHROMASIA SLIGHT
[2017-02-16 09:28] LABS: WHITE BLOOD COUNT 39.8 10^3/uL (4.0-10.5)
[2017-02-16] MEDS: DOCUSATE SODIUM 100 MG CAPSULE PO SCH ×2 (12:27→18:05)
[2017-02-16] MEDS ORDERED: ONDANSETRON 4 MG TAB.RAPDIS PO PRN (12:36)
[2017-02-16] MEDS ORDERED: MORPHINE SULFATE 10 MG/ML INJ IV PRN (12:36)
[2017-02-16] MEDS ORDERED: TRAZODONE HCL 50 MG TABLET PO PRN ×2 (12:36→19:25)
--- NOTE | 2017-02-16 16:31 | Physician Advisory Note ---
Physician Advisor ProgressNote .: Pursuant to the plan for [facility], I have reviewed the medical record for this patient. Physician Advisor Statement: Nice documentation of chronic diast CHF, obesity. Please consider documentin. "Mild hyponatremia, likely due to " 2. "possible SIRS, ruled out" (vs "possible SIRS, present on day of adm, likely due to ") - Pt did have worsened leukocytosis (WBC chronically in the 20s), & developed a gradual mild tachycardia on 02/15, but appears overall rather borderline for dx of SIRS here, as attending language in H&P suggests. You could not be faulted for saying this possible dx was ruled out. Thanks! CK
--- NOTE | 2017-02-16 19:32 | PDOC PROGRESS REPORT ---
Subjective Progress Note for:: 02/16/17 Subjective:: It is quite tearful today. She reports that she is waiting on pain medication. Patient's IV is also infiltrated. Patient denies headache, chest pain, shortness of breath, nausea, vomiting, fever, chills. c/o fatigue Physical Exam Vital Signs: Temp Pulse Resp BP Pulse Ox 98.2 F 93 18 144/65 H 94 02/16/17 16:49 02/16/17 17:08 02/16/17 17:08 02/16/17 16:49 02/16/17 17:08 Intake & Output 02/15/17 02/16/17 02/17/17 06:59 06:59 06:59 Intake Total 1490 1230 Output Total 900 Balance 1490 330 Weight 96.6 kg Exam: GENERAL: No acute distress, obese HEENT: Conjunctiva clear, nonicteric, moist mucous membranes, no JVD, midline trachea RESPIRATORY: Clear to auscultation bilaterally, no wheezes, no rhonchi CARDIAC: Regular rate and rhythm, no gallops/rubs; +sm ABDOMEN: Soft, nondistended, nontender, positive bowel sounds, no rebound, no guarding EXTREMETIES: No edema, cyanosis, clubbing NEUROLOGIC: Alert, oriented to person/place/time, CN's grossly intact, no focal deficits SKIN: No rash; right medial forearm swelling PSYCH: Normal mood, normal affect Results Laboratory Results: 02/16/17 07:39 02/16/17 07:39 02/16/17 02/16/17 07:39 07:39 WBC 35.0 H* RBC 7.92 H Hgb 15.0 Hct 53.0 H MCV 67 L MCH 18.9 L MCHC 28.2 L RDW 21.7 H Plt Count 284 Seg Neutrophils % Not Reportable Lymphocytes % Not Reportable Monocytes % Not Reportable Eosinophils % Not Reportable Basophils % Not Reportable Absolute Neutrophils Not Reportable Absolute Lymphocytes Not Reportable Absolute Monocytes Not Reportable Absolute Eosinophils Not Reportable Absolute Basophils Not Reportable Sodium 139.0 Potassium 5.0 Chloride 102 Carbon Dioxide 28 Anion Gap 9 BUN 16 Creatinine 0.86 Est GFR ( Amer) > 60 Est GFR (Non-Af Amer) > 60 Glucose 202 H Calcium 9.9 Magnesium 2.0 02/15/17 02/15/17 02/15/17 09:15 15:15 21:15 Troponin I < 0.012 < 0.012 < 0.012 Impressions: Chest X-Ray 02/15/17 05:22 IMPRESSION: NO ACUTE RADIOGRAPHIC FINDING IN THE CHEST. Cervical Spine CT 02/15/17 05:23 IMPRESSION: No acute findings. Moderate desiccated-protrusive disc disease between the C4 and C7 levels. Head CT 02/15/17 05:23 IMPRESSION: No acute findings. Chronic right posterior parietal infarct and chronic left lacunar infarct. Lumbar Spine CT 02/15/17 05:23 IMPRESSION: No acute findings. Moderate -severe estimated L4-5 spinal canal stenosis due to moderate spondylosis and grade 1 degenerative L4 anterolisthesis. Hip/Pelvis X-Ray 02/15/17 06:39 IMPRESSION: No acute findings. Stable. Chest/Abdomen CTA 02/15/17 08:37 IMPRESSION: NORMAL CTA OF THE CHEST. NO PULMONARY EMBOLI. Assessment & Plan - Diagnosis (1) SIRS (systemic inflammatory response syndrome) Is this a current diagnosis for this admission?: YesPlan: Criteria for this however she has a chronically elevated white count due to CLL. Suspect uti, but not manifest. (2) Fall Qualifiers: Encounter type: initial encounter Qualified Code(s): W19.XXXA - Unspecified fall, initial encounter Is this a current diagnosis for this admission?: YesPlan: Undergone multiple imaging studies which revealed significant osteoarthritis. No acute fracture is noted at this time. Will give patient morphine IV and will monitor her for response given her age and obesity with great concerns for treating her pain with narcotics. Have physical therapy evaluate patient. (3) Orthostatic hypotension Is this a current diagnosis for this admission?: YesPlan: improving (4) GERD (gastroesophageal reflux disease) Qualifiers: Esophagitis presence: without esophagitis Qualified Code(s): K21.9 - Gastro-esophageal reflux disease without esophagitis Is this a current diagnosis for this admission?: Yes (5) Urinary tract infection Qualifiers: Urinary tract infection type: site unspecified Hematuria presence: without hematuria Qualified Code(s): N39.0 - Urinary tract infection, site not specified Is this a current diagnosis for this admission?: YesPlan: Patient on Rocephin. Pending culture (6) Diastolic CHF Qualifiers: Congestive heart failure chronicity: chronic Qualified Code(s): I50.32 - Chronic diastolic (congestive) heart failure Is this a current diagnosis for this admission?: YesPlan: Currently compensated, but will be judicious with fluid administration in light of this. (7) HTN (hypertension) Qualifiers: Hypertension type: essential hypertension Qualified Code(s): I10 - Essential (primary) hypertension Is this a current diagnosis for this admission?: Yes (8) History of pulmonary embolism Is this a current diagnosis for this admission?: Yes (9) DVT prophylaxis Is this a current diagnosis for this admission?: Yes (10) Severe obesity (BMI 35.0-35.9 with comorbidity) Is this a current diagnosis for this admission?: Yes (11) History of CVA (cerebrovascular accident) Is this a current diagnosis for this admission?: Yes (12) Diabetes mellitus type II, controlled Qualifiers: Diabetes mellitus complication status: with circulatory complication Diabetes mellitus complication detail: with other circulatory complications Diabetes mellitus prison insulin use: with prison use Qualified Code(s): E11.59 - Type 2 diabetes mellitus with other circulatory complications Is this a current diagnosis for this admission?: Yes (13) Depressed Qualifiers: Depression Type: unspecified Qualified Code(s): F32.9 - Major depressive disorder, single episode, unspecified Is this a current diagnosis for this admission?: YesPlan: Consult psychology - Time Time Spent with patient: 25-34 minutes Medications reviewed and adjusted accordingly: Yes Anticipated discharge: Acute Rehab Within: when bed available
[2017-02-16] MEDS: METOPROLOL TARTRATE 100 MG TABLET PO SCH (21:35)
[2017-02-16] MEDS: ATORVASTATIN CALCIUM 80 MG TABLET PO SCH (21:35)
[2017-02-16] MEDS: INSULIN LISPRO 100 UNIT/ML 3 ML VIAL SUBCUT PRN (21:35)
[2017-02-16] MEDS: GABAPENTIN 300 MG CAPSULE PO SCH (21:36)
[2017-02-17 05:28] LABS: HEMATOCRIT 47.8 % (36.0-47.0); HEMOGLOBIN 13.9 g/dL (12.0-15.5); MEAN CORPUSCULAR HEMOGLOBIN 19.3 pg (27.0-33.4); MEAN CORPUSCULAR VOLUME 67 fl (80-97); RED BLOOD COUNT 7.19 10^6/uL (3.72-5.28); WHITE BLOOD COUNT 28.9 10^3/uL (4.0-10.5)
[2017-02-17 05:38] LABS: ANION GAP 9 (5-19); BLOOD UREA NITROGEN 11 mg/dL (7-20); CALCIUM 9.2 mg/dL (8.4-10.2); CARBON DIOXIDE 27 mmol/L (22-30); CHLORIDE 103 mmol/L (98-107); CREATININE RESULT 0.74 mg/dL (0.52-1.25); GLUCOSE 186 mg/dL (75-110); POTASSIUM 4.8 mmol/L (3.6-5.0); SODIUM 139.1 mmol/L (137-145)
[2017-02-17 06:08] LABS: HGB HCT DIFFERENCE -6.1
[2017-02-17 06:10] LABS: ANISOCYTOSIS 3+; BAND NEUTROPHILS % (MANUAL) 2 % (3-5); BASOPHILS % (MANUAL) 0 % (0-2); EOSINOPHILS % (MANUAL) 0 % (0-6); HYPOCHROMASIA 1+; LYMPHOCYTES % (MANUAL) 7 % (13-45); MICROCYTOSIS 2+; OVALOCYTES SLIGHT; POIKILOCYTOSIS SLIGHT; POLYCHROMASIA SLIGHT; TEAR DROP CELLS SLIGHT; TOTAL CELLS COUNTED 100; TOXIC GRANULATION SLIGHT; TOXIC VACUOLATION PRESENT
[2017-02-17] MEDS: LANSOPRAZOLE 30 MG TAB.RAP.DR PO SCH (06:12)
[2017-02-17] MEDS: OXYCODONE-ACETAMINOPHEN 5-325 MG TABLET PO PRN ×2 (06:12→19:34)
[2017-02-17] MEDS: HEPARIN SOD (PORCINE) 5,000 UNIT/ML 1 ML SYRINGE SUBCUT SCH ×3 (06:12→22:24)
[2017-02-17] MEDS ORDERED: (PENDING PHARMACY ID) (Rosuvastatin Calcium [Crestor] 40 MG) PO SCH (10:00)
[2017-02-17] MEDS: CLOPIDOGREL BISULFATE 75 MG TABLET PO SCH (10:31)
[2017-02-17] MEDS: ISOSORBIDE MONONITRATE 30 MG TAB.ER.24H PO SCH (10:31)
[2017-02-17] MEDS: SITAGLIPTIN PHOSPHATE 50 MG TABLET PO SCH (10:31)
[2017-02-17] MEDS: METOPROLOL TARTRATE 100 MG TABLET PO SCH ×2 (10:32→22:25)
[2017-02-17] MEDS: DOCUSATE SODIUM 100 MG CAPSULE PO SCH ×2 (10:32→18:28)
[2017-02-17] MEDS: GABAPENTIN 300 MG CAPSULE PO SCH ×2 (10:32→22:24)
[2017-02-17] MEDS: ASPIRIN 81 MG TABLET, ENT COATED PO SCH (10:32)
[2017-02-17] MEDS: INSULIN LISPRO 100 UNIT/ML 3 ML VIAL SUBCUT PRN ×3 (10:32→22:24)
[2017-02-17] MEDS ORDERED: ONDANSETRON HCL INJ/PF 4 MG/2 ML SDV IV PRN (13:09)
--- NOTE | 2017-02-17 15:29 | PSYCHOLOGICAL NOTE ---
Psych Note - Psych Note Psych Note: Patient originally presented to [facility] ED after a fall in her shower. Consult was submitted by attending hospitalist for concerns for depression. Patient has history of depression and anxiety. Patient disclosed that she used to be on Celexa but does not think it did very much. She states that approximately 10 years ago her . Currently she lives with her daughter. Patient she feels safe in her daughter' s home. Patient does state she has had recent suicidal ideation with a passing plan of taking her pills. Patient denies intent;" I would never do it because I don't believe in it " Patient states the reason she started thinking of this is when she found out her daughter need to have surgery to put a steel mary anne in her back. States the first procedure will be a steel mary anne in her daughter's neck. Patient states this news was very sad for her, but she did not start having suicidal ideation until she started falling. Patient states she thought she was taking good care of herself; however, a couple weeks ago was the first time she fell while in the shower. She states this time, after the second fall , she has begun to be concerned that she will be too much for her daughter to care for; especially, with her daughter's the upcoming surgeries. Patient is alert and orientated to person place time and circumstance. Mood is euthymic with congruent affect. Patient endorses suicidal ideation denies intent stating she does not believe in suicide. Patient denies homicidal ideation. Patient denies auditory/visual hallucinations; patient is not demonstrating any behavior congruent with responding to internal stimuli. No delusions are noted. Thought processes organized and linear. Normal rate tone and prosody. Eye contact was fair. Attention and concentration is fair. Insight, judgment, impulse control is good. 311 (F32.9) unspecified depressive disorder Impression\\plan: Patient is psychiatrically clear for discharge. While patient endorses suicidal ideation with a brief thought of a possible plan. Patient denies true intent or formalizing plan; patient states it goes against her beliefs. Patient continued to disclose depression surrounding decreased ability to care for herself and being a burden on others. Patient concerned her daughter will be unable to care for her because of her daughter's own upcoming medical concerns. Patient is recommended for outpatient therapeutic services. Dr. Peng was consulted on the care and management of this patient ; attending physician is in agreement with recommendations and disposition.
--- NOTE | 2017-02-17 18:02 | PDOC PROGRESS REPORT ---
Subjective Progress Note for:: 02/17/17 Subjective:: Reports she is feeling somewhat improved today. However being not quite to baseline. Patient denies headache, chest pain, shortness of breath, nausea, vomiting, fever, chills. Physical Exam Vital Signs: Temp Pulse Resp BP Pulse Ox 98.3 F 84 19 138/68 H 93 02/17/17 15:21 02/17/17 15:21 02/17/17 15:21 02/17/17 15:21 02/17/17 15:21 Intake & Output 02/16/17 02/17/17 02/18/17 06:59 06:59 06:59 Intake Total 1490 3358 Output Total 2600 Balance 1490 758 Weight 96.6 kg 99.2 kg Exam: GENERAL: No acute distress, obese HEENT: Conjunctiva clear, nonicteric, moist mucous membranes, no JVD, midline trachea RESPIRATORY: Clear to auscultation bilaterally, no wheezes, no rhonchi CARDIAC: Regular rate and rhythm, no gallops/rubs; +sm ABDOMEN: Soft, nondistended, nontender, positive bowel sounds, no rebound, no guarding EXTREMETIES: No edema, cyanosis, clubbing NEUROLOGIC: Alert, oriented to person/place/time, CN's grossly intact, no focal deficits SKIN: No rash; right medial forearm swelling improved PSYCH: Normal mood, normal affect Results Laboratory Results: 02/17/17 04:04 02/17/17 04:04 02/17/17 02/17/17 04:04 04:04 WBC 28.9 H RBC 7.19 H Hgb 13.9 Hct 47.8 H MCV 67 L MCH 19.3 L MCHC 29.0 L RDW 22.0 H Plt Count 257 Seg Neutrophils % Not Reportable Lymphocytes % Not Reportable Monocytes % Not Reportable Eosinophils % Not Reportable Basophils % Not Reportable Absolute Neutrophils Not Reportable Absolute Lymphocytes Not Reportable Absolute Monocytes Not Reportable Absolute Eosinophils Not Reportable Absolute Basophils Not Reportable Sodium 139.1 Potassium 4.8 Chloride 103 Carbon Dioxide 27 Anion Gap 9 BUN 11 Creatinine 0.74 Est GFR ( Amer) > 60 Est GFR (Non-Af Amer) > 60 Glucose 186 H Calcium 9.2 02/15/17 02/15/17 02/15/17 09:15 15:15 21:15 Troponin I < 0.012 < 0.012 < 0.012 Impressions: Chest X-Ray 02/15/17 05:22 IMPRESSION: NO ACUTE RADIOGRAPHIC FINDING IN THE CHEST. Cervical Spine CT 02/15/17 05:23 IMPRESSION: No acute findings. Moderate desiccated-protrusive disc disease between the C4 and C7 levels. Head CT 02/15/17 05:23 IMPRESSION: No acute findings. Chronic right posterior parietal infarct and chronic left lacunar infarct. Lumbar Spine CT 02/15/17 05:23 IMPRESSION: No acute findings. Moderate -severe estimated L4-5 spinal canal stenosis due to moderate spondylosis and grade 1 degenerative L4 anterolisthesis. Hip/Pelvis X-Ray 02/15/17 06:39 IMPRESSION: No acute findings. Stable. Chest/Abdomen CTA 02/15/17 08:37 IMPRESSION: NORMAL CTA OF THE CHEST. NO PULMONARY EMBOLI. Assessment & Plan - Diagnosis (1) SIRS (systemic inflammatory response syndrome) Is this a current diagnosis for this admission?: Yes (2) Fall Qualifiers: Encounter type: initial encounter Qualified Code(s): W19.XXXA - Unspecified fall, initial encounter Is this a current diagnosis for this admission?: Yes (3) Orthostatic hypotension Is this a current diagnosis for this admission?: YesPlan: improving Stop IV fluids and see if patient is able to maintain until tomorrow. (4) GERD (gastroesophageal reflux disease) Qualifiers: Esophagitis presence: without esophagitis Qualified Code(s): K21.9 - Gastro-esophageal reflux disease without esophagitis Is this a current diagnosis for this admission?: Yes (5) Urinary tract infection Qualifiers: Urinary tract infection type: site unspecified Hematuria presence: without hematuria Qualified Code(s): N39.0 - Urinary tract infection, site not specified Is this a current diagnosis for this admission?: YesPlan: Has been negative and antibiotics have been stopped. (6) Diastolic CHF Qualifiers: Congestive heart failure chronicity: chronic Qualified Code(s): I50.32 - Chronic diastolic (congestive) heart failure Is this a current diagnosis for this admission?: Yes (7) HTN (hypertension) Qualifiers: Hypertension type: essential hypertension Qualified Code(s): I10 - Essential (primary) hypertension Is this a current diagnosis for this admission?: Yes (8) History of pulmonary embolism Is this a current diagnosis for this admission?: Yes (9) DVT prophylaxis Is this a current diagnosis for this admission?: Yes (10) History of CVA (cerebrovascular accident) Is this a current diagnosis for this admission?: Yes (11) Diabetes mellitus type II, controlled Qualifiers: Diabetes mellitus complication status: with circulatory complication Diabetes mellitus complication detail: with other circulatory complications Diabetes mellitus moth exterminator insulin use: with jail use Qualified Code(s): E11.59 - Type 2 diabetes mellitus with other circulatory complications Is this a current diagnosis for this admission?: YesPlan: Patient on diabetic diet and sliding scale in addition to her home insulin. (12) Depressed Qualifiers: Depression Type: unspecified Qualified Code(s): F32.9 - Major depressive disorder, single episode, unspecified Is this a current diagnosis for this admission?: YesPlan: Appreciate psychology. Start Buspar bid (13) Severe obesity (BMI 35.0-35.9 with comorbidity) Is this a current diagnosis for this admission?: Yes - Time Time Spent with patient: 25-34 minutes Anticipated discharge: Acute Rehab Within: when bed available
[2017-02-17] MEDS ORDERED: BUPROPION HCL 75 MG TABLET PO SCH (22:00)
[2017-02-17] MEDS: ATORVASTATIN CALCIUM 80 MG TABLET PO SCH (22:25)
[2017-02-17] MEDS: BUSPIRONE HCL 10 MG TABLET PO SCH (22:25)
[2017-02-18 04:50] LABS: HEMATOCRIT 49.2 % (36.0-47.0); HEMOGLOBIN 14.7 g/dL (12.0-15.5); MEAN CORPUSCULAR HEMOGLOBIN 19.8 pg (27.0-33.4); MEAN CORPUSCULAR VOLUME 66 fl (80-97)
[2017-02-18 05:03] LABS: ANION GAP 10 (5-19); BLOOD UREA NITROGEN 11 mg/dL (7-20); CALCIUM 9.3 mg/dL (8.4-10.2); CARBON DIOXIDE 27 mmol/L (22-30); CHLORIDE 103 mmol/L (98-107); CREATININE RESULT 0.78 mg/dL (0.52-1.25); GLUCOSE 220 mg/dL (75-110); POTASSIUM 4.6 mmol/L (3.6-5.0); SODIUM 140.3 mmol/L (137-145)
[2017-02-18 05:10] LABS: HGB HCT DIFFERENCE -5.1; RED BLOOD COUNT 7.46 10^6/uL (3.72-5.28)
[2017-02-18 05:13] LABS: BASOPHILS % (MANUAL) 0 % (0-2); EOSINOPHILS % (MANUAL) 4 % (0-6); LYMPHOCYTES % (MANUAL) 6 % (13-45); TOTAL CELLS COUNTED 100
[2017-02-18 05:15] LABS: ANISOCYTOSIS 3+; POIKILOCYTOSIS SLIGHT; POLYCHROMASIA SLIGHT; TEAR DROP CELLS SLIGHT; TOXIC VACUOLATION PRESENT
[2017-02-18 05:16] LABS: MICROCYTOSIS 3+
[2017-02-18] MEDS: HEPARIN SOD (PORCINE) 5,000 UNIT/ML 1 ML SYRINGE SUBCUT SCH ×2 (06:35→13:52)
[2017-02-18] MEDS: LANSOPRAZOLE 30 MG TAB.RAP.DR PO SCH (06:35)
[2017-02-18] MEDS: ISOSORBIDE MONONITRATE 30 MG TAB.ER.24H PO SCH (09:04)
[2017-02-18] MEDS: GABAPENTIN 300 MG CAPSULE PO SCH (09:04)
[2017-02-18] MEDS: CLOPIDOGREL BISULFATE 75 MG TABLET PO SCH (09:04)
[2017-02-18] MEDS: SITAGLIPTIN PHOSPHATE 50 MG TABLET PO SCH (09:04)
[2017-02-18] MEDS: DOCUSATE SODIUM 100 MG CAPSULE PO SCH (09:04)
[2017-02-18] MEDS: INSULIN LISPRO 100 UNIT/ML 3 ML VIAL SUBCUT PRN ×2 (09:04→11:47)
[2017-02-18] MEDS: ASPIRIN 81 MG TABLET, ENT COATED PO SCH (09:04)
[2017-02-18] MEDS: BUSPIRONE HCL 10 MG TABLET PO SCH (09:04)
[2017-02-18] MEDS: METOPROLOL TARTRATE 100 MG TABLET PO SCH (09:04)
[2017-02-18] MEDS: OXYCODONE-ACETAMINOPHEN 5-325 MG TABLET PO PRN (10:54)
[2017-02-18 11:34] VITALS: BP 167/78
--- NOTE | 2017-02-18 12:25 | PDOC DISCHARGE SUMMARY ---
General - Admit/Disc Date/PCP Admission Date/Primary Care Provider: 02/15/17 08:39 Discharge Date: 02/18/17 - Discharge Diagnosis (1) SIRS (systemic inflammatory response syndrome) Is this a current diagnosis for this admission?: Yes (2) Fall Is this a current diagnosis for this admission?: Yes (3) Orthostatic hypotension Is this a current diagnosis for this admission?: Yes (4) GERD (gastroesophageal reflux disease) Is this a current diagnosis for this admission?: Yes (5) Urinary tract infection Is this a current diagnosis for this admission?: Yes (6) Diastolic CHF Is this a current diagnosis for this admission?: Yes (7) HTN (hypertension) Is this a current diagnosis for this admission?: Yes (8) History of pulmonary embolism Is this a current diagnosis for this admission?: Yes (9) History of CVA (cerebrovascular accident) Is this a current diagnosis for this admission?: Yes (10) Diabetes mellitus type II, controlled Is this a current diagnosis for this admission?: Yes (11) Depressed Is this a current diagnosis for this admission?: Yes (12) Severe obesity (BMI 35.0-35.9 with comorbidity) Is this a current diagnosis for this admission?: Yes - Additional Information Resuscitation Status: Full Code Discharge Diet: Cardiac, Diabetic Discharge Activity: Activity As Tolerated, Balance Activity w/Rest Home Medications: Aspirin [Aspirin EC] 81 mg PO DAILY 02/15/17 Clopidogrel Bisulfate [Plavix 75 mg Tablet] 75 mg PO DAILY 02/15/17 Gabapentin [Neurontin 300 mg Capsule] 300 mg PO Q12 02/15/17 Isosorbide Mononitrate [Isosorbide Mononitrate ER] 30 mg PO DAILY 02/15/17 Losartan Potassium [Cozaar 50 mg Tablet] 50 mg PO DAILY 02/15/17 Ondansetron [Zofran Odt 4 mg Tablet] 4 mg PO Q4HP PRN 02/15/17 Rosuvastatin Calcium [Crestor] 40 mg PO DAILY 02/15/17 Sitagliptin Phosphate [Januvia] 100 mg PO DAILY 02/15/17 Metoprolol Tartrate 100 mg PO BID 02/16/17 Pantoprazole Sodium 40 mg PO DAILY 02/16/17 Trazodone HCl 50 mg PO QHS PRN 02/16/17 Buspirone HCl [Buspar 10 mg Tablet] 10 mg PO Q12 #60 tablet 02/18/17 Docusate Sodium [Colace 100 mg Capsule] 100 mg PO BID #60 capsule 02/18/17 Oxycodone HCl/Acetaminophen [Percocet 5-325 mg Tablet] 1 tab PO Q4HP PRN #10 tablet 02/18/17 History of Present Illness History of Present Illness: ORACIO PEDROZA is a 81 year old female who reports a slip and fall in the shower. She complains of left hip discomfort. She denies any loss of consciousness. She denies any headache. She denies any focal weakness. Patient reports that her diarrhea had resolved prior to patient denied any antecedent illness. She reports that she was feeling much better than previous prior to admission. Patient does note that she has a history of pulmonary embolus. She is referred to the hospitalist service for orthostatic hypotension , mild renal insufficiency, and hypoxia. Hospital Course Hospital Course: Patient had a fall at home and was found to be orthostatic. Concern was arose for sirs/sepsis with patient's chronically elevated white count which was slightly above normal and what appeared to be evidence of UTI on UA. Rocephin was initiated, but culture returned negative and this was stopped. Patient had no further recurrence of her symptoms. Concern was also made for possible pneumonia as patient was mildly hypoxic, but this improved with incentive spirometry. Patient was encouraged to eat and drink orally. And her IV fluids were stopped. Patient was doing well and requests rehabilitation which has been established for her. Patient is stable for discharge to rehab facility. Physical Exam Vital Signs: Temp Pulse Resp BP Pulse Ox 97.6 F 81 18 167/78 H 93 02/18/17 11:34 02/18/17 11:34 02/18/17 11:34 02/18/17 11:34 02/18/17 11:34 Intake & Output 02/17/17 02/18/17 02/19/17 06:59 06:59 06:59 Intake Total 3358 4502 Output Total 8663 9223 Balance 758 1577 Weight 99.2 kg 97.4 kg Exam: GENERAL: No acute distress, obese HEENT: Conjunctiva clear, nonicteric, moist mucous membranes, no JVD, midline trachea RESPIRATORY: Clear to auscultation bilaterally, no wheezes, no rhonchi CARDIAC: Regular rate and rhythm, no gallops/rubs; +sm ABDOMEN: Soft, nondistended, nontender, positive bowel sounds, no rebound, no guarding EXTREMETIES: No edema, cyanosis, clubbing NEUROLOGIC: Alert, oriented to person/place/time, CN's grossly intact, no focal deficits SKIN: No rash, lesions PSYCH: Normal mood, normal affect Results Laboratory Results: 02/18/17 04:38 02/18/17 04:38 02/18/17 02/18/17 04:38 04:38 WBC 24.0 H RBC 7.46 H Hgb 14.7 Hct 49.2 H MCV 66 L MCH 19.8 L MCHC 30.0 L RDW 22.0 H Plt Count 292 Seg Neutrophils % Not Reportable Lymphocytes % Not Reportable Monocytes % Not Reportable Eosinophils % Not Reportable Basophils % Not Reportable Absolute Neutrophils Not Reportable Absolute Lymphocytes Not Reportable Absolute Monocytes Not Reportable Absolute Eosinophils Not Reportable Absolute Basophils Not Reportable Sodium 140.3 Potassium 4.6 Chloride 103 Carbon Dioxide 27 Anion Gap 10 BUN 11 Creatinine 0.78 Est GFR ( Amer) > 60 Est GFR (Non-Af Amer) > 60 Glucose 220 H Calcium 9.3 02/15/17 02/15/17 02/15/17 09:15 15:15 21:15 Troponin I < 0.012 < 0.012 < 0.012 Impressions: Chest X-Ray 02/15/17 05:22 IMPRESSION: NO ACUTE RADIOGRAPHIC FINDING IN THE CHEST. Cervical Spine CT 02/15/17 05:23 IMPRESSION: No acute findings. Moderate desiccated-protrusive disc disease between the C4 and C7 levels. Head CT 02/15/17 05:23 IMPRESSION: No acute findings. Chronic right posterior parietal infarct and chronic left lacunar infarct. Lumbar Spine CT 02/15/17 05:23 IMPRESSION: No acute findings. Moderate -severe estimated L4-5 spinal canal stenosis due to moderate spondylosis and grade 1 degenerative L4 anterolisthesis. Hip/Pelvis X-Ray 02/15/17 06:39 IMPRESSION: No acute findings. Stable. Chest/Abdomen CTA 02/15/17 08:37 IMPRESSION: NORMAL CTA OF THE CHEST. NO PULMONARY EMBOLI. Qualifiers PATEINT BEING DISCHARGED WITH ANY OF THE FOLLOWING DIAGNOSIS?: No Plan Time Spent: Less than 30 Minutes
[2017-02-18] MEDS ORDERED: LOSARTAN POTASSIUM 50 MG TABLET PO SCH (13:00)
== END 2017-02-18 15:47 | DRG 312 ==
LOC: ER 05:11 → EH 08:39 → UNDOADMIN 09:07 → 5 20:18
PROVIDERS: ADMIT Family Medicine; ATTEND Family Medicine
DX: I95.1 Orthostatic hypotension (principal); I50.32 Chronic diastolic (congestive) heart failure; I11.0 Hypertensive heart disease with heart failure; E78.5 Hyperlipidemia, unspecified; K21.9 Gastro-esophageal reflux disease without esophagitis; M19.90 Unspecified osteoarthritis, unspecified site; M19.91 Primary osteoarthritis, unspecified site; M54.5 Low back pain; D72.829 Elevated white blood cell count, unspecified; N28.9 Disorder of kidney and ureter, unspecified; E11.9 Type 2 diabetes mellitus without complications; R09.02 Hypoxemia; M25.552 Pain in left hip; W18.2XXA Fall in (into) shower or empty bathtub, initial encounter; Y92.002 Bathroom of unspecified non-institutional (private) residence as the place of occurrence of the external cause; E66.01 Morbid (severe) obesity due to excess calories; F32.9 Major depressive disorder, single episode, unspecified; Z86.711 Personal history of pulmonary embolism; Z86.14 Personal history of Methicillin resistant Staphylococcus aureus infection; Z90.49 Acquired absence of other specified parts of digestive tract; Z90.710 Acquired absence of both cervix and uterus; Z82.49 Family history of ischemic heart disease and other diseases of the circulatory system; Z83.3 Family history of diabetes mellitus; Z80.1 Family history of malignant neoplasm of trachea, bronchus and lung; Z79.899 Other long term (current) drug therapy; Z68.35 Body mass index [BMI] 35.0-35.9, adult; Z86.73 Personal history of transient ischemic attack (TIA), and cerebral infarction without residual deficits
CPT/HCPCS: 36415; 70450; 71010; 71275; 72125; 72131; 80048; 80053; 81001; 82550; 82553; 82962; 83605; 83735; 84484; 85025; 87040; 87086; 93005; 93010; 96360; 99285; G8978-GP; G8979-GP; J1644; J1815; J2270; J7030; J7040; L0120

== ENCOUNTER 2017-03-14 03:02 | Inpatient (IN) | payer MEDICARE, OTHER ==
--- NOTE | 2017-03-14 03:23 | ER Document Report ---
ED Fall - General Stated Complaint: FALL Time Seen by Provider: 03/14/17 03:18 Notes: Patient is an 81-year-old female that comes emergency department for chief complaint of fall, she states that she was walking back from the bathroom, got lightheaded, and fell backwards, hitting her head on the frame of her bed in the back. She denies loss of consciousness, vomiting, she also states she scraped her elbows. She reports some mild neck pain, denies focal numbness or weakness, incontinence, chest pain, abdominal pain. She states she feels very slightly short of breath. She is on Plavix and aspirin. Past medical history includes CHF, CT, type 2 diabetes, CVA, CLL. Patient was recently placed on OxyContin for chronic lower back pain. TRAVEL OUTSIDE OF THE [place] IN LAST 30 DAYS: No - Related data Allergies/Adverse Reactions: No Known Allergies Allergy (Unverified 01/21/17 13:58) Past Medical History - General Information source: Patient - Social History Smoking Status: Never Smoker Frequency of alcohol use: None Drug Abuse: None Lives with: Family - daughter Family History: CAD, COPD, DM, Hyperlipidemia, Hypertension, Malignancy - Father with lung cancer, Other - Past Medical History Cardiac Medical History: Reports: Hx Congestive Heart Failure - Diastolic, Hx Heart Attack - EKG suggests probable prior infarction, Hx Hypercholesterolemia, Hx Hypertension, Hx Pulmonary Embolism - Distant history Pulmonary Medical History: Denies: Hx Asthma, Hx COPD, Hx Sleep Apnea Neurological Medical History: Denies: Hx Seizures Endocrine Medical History: Reports: Hx Diabetes Mellitus Type 2. Denies: Hx Hyperthyroidism, Hx Hypothyroidism Renal/ Medical History: Denies: Hx End Stage Renal Disease, Hx Peritoneal Dialysis Malignancy Medical History: Reports: Hx Skin Cancer - Excised from her nose. GI Medical History: Reports: Hx Gastroesophageal Reflux Disease. Denies: Hx Cirrhosis, Hx Hepatitis Musculoskeltal Medical History: Reports Hx Arthritis, Reports Hx Musculoskeletal Deformity Skin Medical History: Denies Hx Eczema, Denies Hx Psoriasis Psychiatric Medical History: Reports: Hx Anxiety, Hx Depression Infectious Medical History: Reports: Hx MRSA - Quite distant history. Denies: Hx C-Diff, Hx Hepatitis Past Surgical History: Reports: Hx Abdominal Surgery, Hx Appendectomy, Hx Hysterectomy, Hx Tonsillectomy, Other - Cardiac loop recorder, bilateral cataract surgery - Immunizations Hx Diphtheria, Pertussis, Tetanus Vaccination: No Hx Pneumococcal Vaccination: 04/29/13 Review of Systems - Review of Systems Constitutional: No symptoms reported EENT: No symptoms reported Cardiovascular: See HPI Respiratory: No symptoms reported Gastrointestinal: No symptoms reported Genitourinary: No symptoms reported Female Genitourinary: No symptoms reported Musculoskeletal: See HPI Skin: No symptoms reported Hematologic/Lymphatic: No symptoms reported Neurological/Psychological: See HPI Physical Exam - Vital signs Vitals: Temp Pulse Resp BP Pulse Ox 98.4 F 107 H 18 108/60 94 03/14/17 03:11 03/14/17 03:11 03/14/17 03:11 03/14/17 03:03/14/17 03:11 Interpretation: Normal - General General appearance: Appears well, Alert In distress: None - patient does not appear to be in pain or distress - HEENT Head: Normocephalic. No: Atraumatic - There is a small area of bruising and tenderness over the right occipital scalp, no other signs of trauma noted Eyes: Normal Pupils: PERRL - Respiratory Respiratory status: No respiratory distress. No: Labored, Tachypnea Chest status: Nontender Breath sounds: Normal. No: Decreased air movement, Wheezing Chest palpation: Normal - Cardiovascular Rhythm: Regular, Tachycardia - borderline Heart sounds: Normal auscultation, S1 appreciated, S2 appreciated Murmur: No - Abdominal Inspection: Normal Distension: No distension Bowel sounds: Normal Tenderness: Nontender. No: Tender, Hodge's sign, Guarding Organomegaly: No organomegaly - Back Back: Normal, Nontender. No: Tender, CVA tenderness, Vertebra tenderness - Midline tenderness, no tenderness or signs of injury noted, no saddle anesthesia , moves all extremities without difficulty, normal distal neurovascular exam - Extremities General upper extremity: Normal inspection, Nontender, Normal color, Normal ROM , Normal temperature General lower extremity: Normal inspection, Nontender, Normal color, Normal ROM , Normal temperature, Normal weight bearing. No: Cynthia's sign - Neurological Neuro grossly intact: Yes Cognition: Normal Orientation: AAOx4 Ziyad Coma Scale Eye Opening: Spontaneous [place] Coma Scale Verbal: Oriented [place] Coma Scale Motor: Obeys Commands [place] Coma Scale Total: 15 Speech: Normal Motor strength normal: LUE, RUE, LLE, RLE Sensory: Normal - Psychological Associated symptoms: Normal affect, Normal mood - Skin Skin Temperature: Warm Skin Moisture: Dry Skin Color: Normal Skin irregularity: other - Small abrasions over both elbows Course - Re-evaluation Re-evalutation: CT of the head and neck show no acute abnormality, chest x-ray unremarkable. EKG with no concerning abnormality compared to prior. Elevation of blood counts, however this is comparable to prior, there is 6% bands. Patient has borderline tachycardia, no fever, no hypotension. Chemistry shows acute renal insufficiency with decrease in GFR which is new compared to prior. Patient admits she is almosteating nothing because she has no appetite. Urinalysis showing large leukocyte esterase and white blood cells. Cultures placed for blood and urine. Given dose of Rocephin. Patient was given a small amount of IV fluid (500 ccs). Concern because of unsteadiness on feet with 3 falls over the past day, daughter called and confirm this, also concerned because of acute renal insufficiency, urinary tract infection, nonspecific bandemia. Patient was discussed with Dr. Barnhart. Will discuss with hospitalist for admission. 03/14/17 07:47 Spoke with Negrito KURTZ, patient will be admitted to the [facility]. - Vital Signs Vital signs: Temp Pulse Resp BP Pulse Ox 98.4 F 107 H 19 101/55 L 96 03/14/17 03:11 03/14/17 03:11 03/14/17 07:01 03/14/17 07:01 03/14/17 07:01 - Laboratory Result Diagrams: 03/14/17 03:35 03/14/17 03:35 Laboratory results interpreted by me: 03/14/17 03/14/17 03/14/17 03:35 03:35 05:31 WBC 31.7 H* RBC 7.98 H Hgb 15.9 H Hct 52.9 H MCV 66 L MCH 19.9 L MCHC 30.0 L RDW 22.1 H Seg Neuts % (Manual) 88 H Band Neutrophils % 6 H Lymphocytes % (Manual) 4 L Monocytes % (Manual) 2 L Abs Neuts (Manual) 29.8 H BUN 36 H Creatinine 1.64 H Est GFR ( Amer) 36 L Est GFR (Non-Af Amer) 30 L Glucose 336 H Total Bilirubin 1.8 H Direct Bilirubin 0.6 H Alkaline Phosphatase 262 H Urine Protein 30 H Urine Glucose (UA) 150 H Urine Blood MODERATE H Ur Leukocyte Esterase LARGE H Discharge - Discharge Clinical Impression: Acute renal insufficiency, Unsteady gait Fall Qualifiers: Encounter type: initial encounter Qualified Code(s): W19.XXXA - Unspecified fall, initial encounter Head injury Qualifiers: Encounter type: initial encounter Qualified Code(s): S09.90XA - Unspecified injury of head, initial encounter Urinary tract infection Qualifiers: Urinary tract infection type: site unspecified Hematuria presence: without hematuria Qualified Code(s): N39.0 - Urinary tract infection, site not specified Condition: Stable Disposition: ADMITTED INPATIENT Admitting Provider: Hospitalist Unit Admitted: IMCU
[2017-03-14 03:50] LABS: HEMATOCRIT 52.9 % (36.0-47.0); HEMOGLOBIN 15.9 g/dL (12.0-15.5); MEAN CORPUSCULAR HEMOGLOBIN 19.9 pg (27.0-33.4); MEAN CORPUSCULAR VOLUME 66 fl (80-97); RED BLOOD COUNT 7.98 10^6/uL (3.72-5.28); RED CELL DISTRIBUTION WIDTH 22.1 % (11.5-14.0)
[2017-03-14 03:58] LABS: ALANINE AMINOTRANSFERASE 16 U/L (9-52); ALBUMIN 4.1 g/dL (3.5-5.0); ALKALINE PHOSPHATASE 262 U/L (38-126); ANION GAP 14 (5-19); ASPARTATE AMINO TRANSFERASE 22 U/L (14-36); BILIRUBIN,DIRECT 0.6 mg/dL (0.0-0.4); BILIRUBIN,TOTAL 1.8 mg/dL (0.2-1.3); BLOOD UREA NITROGEN 36 mg/dL (7-20); CALCIUM 9.3 mg/dL (8.4-10.2); CARBON DIOXIDE 24 mmol/L (22-30); CHLORIDE 101 mmol/L (98-107); CREATINE KINASE 35 U/L (30-135); CREATININE RESULT 1.64 mg/dL (0.52-1.25); GLUCOSE 336 mg/dL (75-110); POTASSIUM 4.7 mmol/L (3.6-5.0); SODIUM 139.1 mmol/L (137-145); TOTAL PROTEIN 8.1 g/dL (6.3-8.2)
--- NOTE | 2017-03-14 04:09 | RADIOLOGY REPORT (SQ) ---
EXAM DESCRIPTION: CHEST SINGLE VIEW COMPLETED DATE/TIME: 03/14/2017 3:46 am REASON FOR STUDY: fall, short of breath COMPARISON: Chest x-ray 02/15/2017. EXAM PARAMETERS: NUMBER OF VIEWS: One view. TECHNIQUE: Single frontal radiographic view of the chest acquired. RADIATION DOSE: NA LIMITATIONS: None. FINDINGS: LUNGS AND PLEURA: Mild atelectasis at the left lung base. No pneumothorax or pleural effu lilian. MEDIASTINUM AND HILAR STRUCTURES: No masses. Contour normal. HEART AND VASCULAR STRUCTURES: Heart normal in size. No overt vascular congestion. BONES: No displaced rib fractures are identified. Degenerative changes in the spine. HARDWARE: disability benefits specialist over the left lower hemithorax. IMPRESSION: Mild left basilar atelectasis. TECHNICAL DOCUMENTATION: JOB ID: [id number]
[2017-03-14 04:10] LABS: HGB HCT DIFFERENCE -5.2
[2017-03-14 04:12] LABS: CREATINE KINASE MB 0.5 ng/mL (<4.55); TROPONIN I 0.018 ng/mL
--- NOTE | 2017-03-14 04:15 | RADIOLOGY REPORT (SQ) ---
EXAM DESCRIPTION: CT HEAD WITHOUT COMPLETED DATE/TIME: 03/14/2017 3:58 am REASON FOR STUDY: fall, posterior head injury, on Plavix , hit right side of the head. COMPARISON: CT head 01/26/2017, 02/15/2017. TECHNIQUE: Axial images acquired through the brain without intravenous contrast. Images reviewed wi th bone, brain and subdural windows. Images stored on PACS. All CT scanners at this facility use dose modulation, iterative reconstruction, and/or weight based d osing when appropriate to reduce radiation dose to as low as reasonably achievable (ALARA). [facility]: Dose Right [facility]: CareDose [facility]: Dose Right [facility]: Teradose 4D [facility]: Smart [employer] RADIATION DOSE: Up-to-date CT equipment and radiation dose reduction techniques were employed. CTDIv ol: 64.6 mGy. DLP: 1163 mGy-cm.mGy. LIMITATIONS: None. FINDINGS: VENTRICLES: Mildly prominent. CEREBRUM: No mass effect. No hemorrhage. No midline shift. Areas of low density in the white matte r most likely due to chronic micro-vascular ischemic change. Remote infarct at the left basal gangli a and right parietal lobe. No evidence for acute territorial infarction. CEREBELLUM: No hemorrhage. No alteration of density. No evidence for acute infarction. EXTRAAXIAL SPACES: Age-related involutional change. No fluid collections. ORBITS AND GLOBE: Symmetrical contour of the globes. CALVARIUM: No depressed fracture. PARANASAL SINUSES: No air-fluid level. SOFT TISSUES: No hematoma. IMPRESSION: No acute intracranial hemorrhage or depressed calvarial fracture. 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 TECHNICAL DOCUMENTATION: JOB ID: [id number] [facility] Quality ID # [id number]: Final reports with documentation of one or more dose reduction techniques (e.g., Au tomated exposure control, adjustment of the mA and/or kV according to patient size, use of iterative reconstruction technique) 2010 [employer]- All Rights Reserved
--- NOTE | 2017-03-14 04:24 | RADIOLOGY REPORT (SQ) ---
EXAM DESCRIPTION: CT CERVICAL SPINE WITHOUT COMPLETED DATE/TIME: 03/14/2017 4:00 am REASON FOR STUDY: fall, pain COMPARISON: CT cervical spine 02/15/2017, 01/26/2017. TECHNIQUE: Axial images acquired through the cervical spine without intravenous contrast. Images re viewed with lung, soft tissue and bone windows. Reconstructed coronal and sagittal MPR images review ed. Images stored on PACS. All CT scanners at this facility use dose modulation, iterative reconstruction, and/or weight based d osing when appropriate to reduce radiation dose to as low as reasonably achievable (ALARA). [facility]: Dose Right [facility]: CareDose [facility]: Dose Right [facility]: Teradose 4D [facility]: Smart [employer] RADIATION DOSE: Up-to-date CT equipment and radiation dose reduction techniques were employed. CTDIv ol: 23.6 mGy. DLP: 523 mGy-cm. mGy. LIMITATIONS: None. FINDINGS: ALIGNMENT: Anatomic. MINERALIZATION: Normal. VERTEBRAL BODIES: No fractures or dislocation. DISCS: Degenerative disc disease and osteophytosis at C4-C5, C5-C6 and C6-C7. FACETS, LATERAL MASSES, POSTERIOR ELEMENTS: Facet arthropathy. No fractures. No dislocation. HARDWARE: None in the spine. VISUALIZED RIBS: No fractures. LUNG APICES AND SOFT TISSUES: No acute findings. IMPRESSION: No acute fracture in the cervical spine. Degenerative changes. TECHNICAL DOCUMENTATION: JOB ID: [id number] [id number] Quality ID # [id number]: Final reports with documentation of one or more dose reduction techniques (e.g., Au tomated exposure control, adjustment of the mA and/or kV according to patient size, use of iterative reconstruction technique) 2010 [employer]- All Rights Reserved
[2017-03-14 04:37] LABS: WHITE BLOOD COUNT 31.7 10^3/uL (4.0-10.5)
[2017-03-14 04:44] LABS: BAND NEUTROPHILS % (MANUAL) 6 % (3-5); BASOPHILS % (MANUAL) 0 % (0-2); EOSINOPHILS % (MANUAL) 0 % (0-6); LYMPHOCYTES % (MANUAL) 4 % (13-45); TOTAL CELLS COUNTED 100
[2017-03-14 04:49] LABS: OVALOCYTES SLIGHT; POIKILOCYTOSIS 1+; TEAR DROP CELLS 1+; TOXIC VACUOLATION PRESENT
[2017-03-14] MEDS ORDERED: NORMAL SALINE 1000 ML 500 ML IV ONE (05:04)
[2017-03-14 05:47] LABS: AMORPHOUS SEDIMENT,URINE TRACE /HPF; APPEARANCE,URINE CLOUDY; BILIRUBIN,URINE NEGATIVE (NEGATIVE); GLUCOSE, URINE 150 mg/dL (NEGATIVE); KETONES,URINE NEGATIVE (NEGATIVE); LEUKOCYTE ESTERASE,URINE LARGE (NEGATIVE); NITRITE,URINE NEGATIVE (NEGATIVE); PROTEIN,URINE 30 mg/dL (NEGATIVE); URINE SPECIFIC GRAVITY 1.009; UROBILINOGEN,URINE NEGATIVE mg/dL (<2.0)
[2017-03-14] MEDS ORDERED: CEFTRIAXONE 1 GM/D5W RTU 50 ML IV ONE (05:51)
--- NOTE | 2017-03-14 07:27 | EKG REPORT ---
SEVERITY:- ABNORMAL ECG - SINUS TACHYCARDIA FIRST DEGREE AV BLOCK ANTERIOR INFARCT, AGE INDETERMINATE : Confirmed by: Bud Medina 14-Mar-2017 07:27:02
[2017-03-14] MEDS ORDERED: ENOXAPARIN SODIUM INJ 40 MG/0.4 ML DISP.SYRIN SUBCUT SCH (10:00)
[2017-03-14] MEDS ORDERED: GLUCAGON,HUMAN RECOMB 1 MG INJ IM PRN (11:33)
[2017-03-14] MEDS ORDERED: DEXTROSE 40% GEL 15 GM TUBE PO PRN ×2 (11:33)
[2017-03-14] MEDS ORDERED: DEXTROSE 50%-WATER 25 GM/50 ML DISP.SYRIN IV PRN ×2 (11:33)
[2017-03-14] MEDS ORDERED: TRAZODONE HCL 50 MG TABLET PO PRN (13:22)
[2017-03-14] MEDS ORDERED: METOPROLOL TARTRATE 100 MG TABLET PO ONE (14:30)
[2017-03-14] MEDS ORDERED: BUSPIRONE HCL 10 MG TABLET PO ONE (14:30)
[2017-03-14] MEDS: OXYCODONE-ACETAMINOPHEN 5-325 MG TABLET PO PRN ×3 (14:33→22:22)
[2017-03-14] MEDS: ONDANSETRON 4 MG TAB.RAPDIS PO PRN (14:35)
[2017-03-14] MEDS: INSULIN LISPRO 100 UNIT/ML 3 ML VIAL SUBCUT PRN ×2 (14:36→18:21)
[2017-03-14] MEDS: NORMAL SALINE 1000 ML 1,000 ML IV PRN ×2 (14:37→22:19)
[2017-03-14 15:32] LABS: PATH REVIEW PATHOLOGIST REVIEWED
--- NOTE | 2017-03-14 15:34 | HISTORY AND PHYSICAL E ---
History and Physical NAME: ORACIO PEDROZA : 1935 AGE: 81Y ADMITTED: 03/14/2017 ROOM: 329 PRIMARY CARE PROVIDER: Dr. Kamara. CODE STATUS: DO NOT RESUSCITATE/DO NOT INTUBATE. CHIEF COMPLAINT: Weakness and falls. HISTORY OF PRESENT ILLNESS: The patient is an 81-year-old female with a past medical history of coronary artery disease, diabetes, and that is well known to the hospitalist service. The patient presented to the emergency department via EMS after sustaining a fall. According to the patient, she was walking back from her bathroom, got lightheaded, and fell backwards, and felt that she struck her head on the frame of her bed in the back. The patient denied any loss of consciousness, no vomiting. Patient also stated that after that she felt some mild neck pain but denied any numbness, weakness. No incontinence, chest pain, abdominal pain. The patient stated that she did feel quite short of breath prior to the event. The patient apparently has had a number of falls over the past couple of weeks, but states that she had been placed on OxyContin a couple of weeks ago for chronic lower back pain. Upon presentation to the emergency department, the patient was found to have a white count of 31,000. It appears that the patient's baseline white count is in the 20s with chronic leukocytosis; has been seen by hematology. However, the patient's creatinine was found to be 1.64 and the patient has no history of significantly elevated creatinines or documented CKD. The patient admits to limit oral intake and overall a steady decline in function. The patient's head CT and cervical spine CT were unremarkable. However, given the patient's elevation in white count, bandemia, as well as acute renal failure, she was referred to the hospitalist for admission and management. PAST MEDICAL HISTORY: Is remarkable for: 1. Diastolic dysfunction. 2. Hypertension. 3. Coronary artery disease. 4. Diabetes mellitus, type 2. 5. A history of C. diff. 6. Gastroesophageal reflux disease. 7. History of pulmonary embolism. 8. History of cerebrovascular accident. 9. Depression. PAST SURGICAL HISTORY: Is remarkable for: 1. Appendectomy. 2. Hysterectomy. 3. Tonsillectomy. 4. Bilateral cataract surgery. 5. Cardiac loop recorder. ALLERGIES: No known drug allergies. HOME MEDICATIONS: Include: 1. Aspirin 81 mg p.o. daily. 2. BuSpar 10 mg p.o. q.12 h. 3. Plavix 75 mg p.o. daily. 4. Colace 100 mg p.o. b.i.d. 5. Neurontin 300 mg p.o. q.12 h. 6. Amaryl 1 mg p.o. b.i.d. 7. Isosorbide mononitrate 30 mg p.o. daily. 8. Cozaar 50 mg p.o. daily. 9. Lopressor 100 mg p.o. q.12 h. 10. Zofran 4 mg p.o. q.4 h. p.r.n. 11. Percocet 5/325 one tablet p.o. q.4 h. p.r.n. 12. Protonix 40 mg p.o. daily. 13. Crestor 40 mg p.o. daily. 14. Januvia 100 mg p.o. daily. 15. Trazodone 50 mg p.o. q. hour of sleep p.r.n. SOCIAL HISTORY: The patient has had a few stays at rehab recently; however, she has been residing with her daughter Jaylyn, who is also her surrogate decision maker. She can be reached at [phone] or [phone]. The patient denies any history of alcohol use or illicit drug use. She has never smoked. FAMILY MEDICAL HISTORY: The patient's father is with lung cancer. The patient's mother of uncertain causes. The patient does have a family history of coronary artery disease, COPD, diabetes, hyperlipidemia, and hypertension. The patient does have a daughter that is healthy; uncertain of siblings. REVIEW OF SYSTEMS: CONSTITUTIONAL: The patient denies any loss of appetite, but does admit to fevers, chills, dizziness, and weakness. INTEGUMENTARY: The patient denies any diaphoresis, rashes, itching. She does admit to easy bruising. HEENT: Denies any vision changes, hearing loss, nasal drainage, sore throat. No headaches. CARDIOVASCULAR: Denies any chest pain, edema, heart palpitations. RESPIRATORY: Denies any shortness of breath, cough, sputum production or hemoptysis. GASTROINTESTINAL: Denies any nausea, vomiting, diarrhea, abdominal pain, bloating, hematemesis, constipation, melena, hematochezia. GENITOURINARY: Denies any hematuria, pyuria or dysuria. MUSCULOSKELETAL: The patient does have chronic lower back pain. No acute joint pains at this time, in spite of falls. NEUROLOGICAL: No seizures, tremors, loss of consciousness. HEMATOLOGICAL: The patient denies any current yuliet bleeding. Did have some rectal bleeding a number of months ago. ENDOCRINE: Denies any recent weight changes. PSYCHIATRIC: Denies suicidal or homicidal ideation. The rest of the review of the other organ systems is negative. PHYSICAL EXAMINATION: GENERAL: On examination, the patient is a well-developed, frail, chronically ill-appearing 81-year-old female who is awake, alert. She is oriented to person, place, time and situation. She is verbal, conversational. Does not appear to be in any acute distress. VITAL SIGNS: As follows: Temperature 99.0, pulse 96, respirations 20, blood pressure is 125/69. Oxygen saturation is 93% on room air. SKIN: Is warm and dry. No rash. Non diaphoretic. Multiple areas of bruising in various stages of healing. HEENT: Pupils are equal, round, and reactive to light and accommodation. Conjunctivae pink. Sclerae are not icteric. There are no mouth lesions. Tongue is midline. NECK: Is supple. No JVD. No palpable lymphadenopathy or thyromegaly. CARDIOVASCULAR: Heart is regular. Is no murmur or rub. CHEST: Clear, symmetrical and unlabored. ABDOMEN: Soft, nontender, nondistended. Bowel sounds are present. No palpable organomegaly. BACK: No CVA tenderness, sacral edema. EXTREMITIES: No clubbing, cyanosis, edema or peripheral signs of embolization. With +1 pedal pulses noted bilaterally. All 4 extremities are warm to the touch. PSYCHIATRIC: Appropriate affect. Pleasant mood. DIAGNOSTICS: Lab values are as follows: Hematology obtained on 03/14/2017: WBCs of 31.7, hemoglobin 51.9, hematocrit is 52.9, platelet count is 290,000. Chemistry obtained on 03/14/2017: Sodium is 139, potassium 4.7, chloride is 101, carbon dioxide 22, BUN 36, creatinine 7.64, glucose 336, calcium is 9.3, bilirubin is 1.8, AST 22, ALT is 16, Alk phos 262, troponin is 0.018, total protein 8.1, albumin 4.1. Urinalysis obtained on 03/14/2017: Color, yellow. Appearance, cloudy. The pH is 5.0. Specific gravity is 1.009. Protein 30, glucose 150, ketones negative, occult blood moderate, nitrite negative, bilirubin negative, urobilinogen is negative. Leukocyte esterase is large. WBC is 27. RBCs 3. Bacteria, trace. WBCs, many. Epithelial squamous cells 1. Mucus, many. Ascorbic acid is negative. Microbiology: Urine culture obtained on 03/14/2017: Is pending. Blood culture obtained on 03/14/2017: Is pending. Cervical spine CT obtained on 03/14/2017: Reveals no acute fracture of the cervical spine or degenerative changes. Chest x-ray obtained on 03/14/2017, reveals mild left basilar atelectasis. EKG obtained on 03/14/2017, reveals sinus tachycardia with a first degree block. Head CT obtained on 03/14/2017: Reveals no acute intracranial hemorrhage or depressed clavicular fracture. Cerebral involution changes and remote infarcts at the left basal ganglia and right parietal lobe. IMPRESSION AND PLAN: 1. URINARY TRACT INFECTION. THE PATIENT HAS HAD MULTIPLE RECURRENT UTIs. URINE DOES LOOK SUGGESTIVE OF THIS. IN THE PAST, IT APPEARS THE PATIENT HAS HAD POLYMICROBIAL INCLUDING ENTEROCOCCUS WELL E. COLI. IT APPEARS THAT ALL THESE SOURCES ARE SENSITIVE TO AMPICILLIN. Will start this antibiotic and follow. 2. SEPSIS, MOST LIKELY SECONDARY TO NUMBER 1. THE PATIENT DOES HAVE EVIDENCE OF BANDEMIA, ELEVATION IN WHITE COUNT, WELL SOME CONFUSION, WEAKNESS, AND A LOW-GRADE TEMP. Will continue antibiotic coverage and await culture and sensitivity. 3. ACUTE RENAL FAILURE. MOST LIKELY, THIS IS A PRERENAL AZOTEMIA DUE TO DEHYDRATION. Will hydrate the patient and repeat chemistries in the a.m. and follow. The patient has had good urine output; will defer imaging for now. 4. DIABETES MELLITUS, TYPE 2. Will resume the patient's home medications as well as additional sliding scale coverage. Hopefully, this will improve also with hydration (her current hypoglycemia). 5. WEAKNESS AND FALLS. Will consult therapy for input. The patient is on a number of medications that could be causing this. Will hold these meds for now, and use pain medication judiciously. The patient most likely will need to return to a rehab environment. Will consult social work as well and follow. 6. HYPERTENSION. Blood pressures have improved. Will hold ARB but start resuming her home medications. 7. CORONARY ARTERY DISEASE. Will continue the patient's home medications. 8. GASTROESOPHAGEAL REFLUX DISEASE. Will continue PPI. 9. HYPERLIPIDEMIA. Will continue statin. 10. DVT PROPHYLAXIS. Will add LIAN hose and aggressively increase activity. DISPOSITION: The patient is a DO NOT RESUSCITATE/DO NOT INTUBATE. Pending patient's symptomatology and diagnostic findings, will reevaluate in the a.m. Will admit the patient to inpatient IMCU as the patient's expected length of stay will surpass 2 midnights given her need for IV volume resuscitation as well as glycemic control. TIME SPENT ON THIS ADMISSION: Including assessment, plan, physical examination, patient education, and the review of the patient's extensive medical records is 45 minutes. DICTATING PHYSICIAN: SARAI HARRELL NP [id number] PHY#: [id number] ID: [id number] JOB#: [id number] ACCT: [id number] cc:SARAI HARRELL NP >
[2017-03-14] MEDS ORDERED: NORMAL SALINE 1000 ML 1,000 ML IV PRN (16:23)
[2017-03-14] MEDS: AMPICILLIN SODIUM 1 GM in NORMAL SALINE 50 ML IV SCH (18:11)
[2017-03-14] MEDS: DOCUSATE SODIUM 100 MG CAPSULE PO SCH (18:14)
[2017-03-14] MEDS: GLIMEPIRIDE 1 MG TABLET PO SCH (18:15)
[2017-03-14] MEDS ORDERED: LIDOCAINE 1% INJ-PF (10 MG/ML) 30 ML SDV ONE (20:21)
[2017-03-14] MEDS ORDERED: BUSPIRONE HCL 10 MG TABLET PO SCH (22:00)
[2017-03-14] MEDS ORDERED: GABAPENTIN 300 MG CAPSULE PO SCH (22:00)
[2017-03-14] MEDS: ATORVASTATIN CALCIUM 80 MG TABLET PO SCH (22:19)
[2017-03-14] MEDS: METOPROLOL TARTRATE 100 MG TABLET PO SCH (22:19)
--- NOTE | 2017-03-14 22:29 | OPERATIVE REPORT E ---
Operative Report NAME: ORACIO PEDROZA : 1935 AGE: 81Y DATE OF SURGERY: 03/14/2017 ROOM: 329 PREOPERATIVE DIAGNOSIS: Right axillary abscess. POSTOPERATIVE DIAGNOSIS: Right axillary abscess suspicious for MRSA. OPERATION: Excisional debridement of right axillary abscess, wound irrigation and packing. SURGEON: LIA MERCADO M.D. CAFE OPERATOR: None. DRAINS: None. TISSUE REMOVED OR ALTERED: Nonviable skin and subcutaneous fat. COMPLICATIONS: None. SUMMARY OF PROCEDURE: The patient was placed in a semi-recumbent position in room 329, right arm abducted over heard. Surgical plan and surgical timeout were conducted. Skin of the right axilla was prepped with Betadine and anesthetized with 1% lidocaine without epinephrine. An elliptical incision was made over the abscess right in the apex of the right axilla with knife. Foul-smelling pus was evacuated. An ellipse of skin removed approximately 4 cm in length and 3 cm in diameter. Finger as well as hemostat dissection was used to break up woody fatty tissue undermining the skin flaps by 2 cm.Fat lobules were removed; Culture sent for gram stain and sensitivity. Wound irrigated with peroxide. All loculations were broken up to our satisfaction. Wound was packed with Betadine-soaked gauze. The patient tolerated the procedure well. DICTATING PHYSICIAN: LIA MERCADO M.D. [id number] PHY#: [id number] ID: [id number] JOB#: [id number] ACCT: [id number] cc:LIA MERCADO M.D. > [facility]
[2017-03-15] MEDS: AMPICILLIN SODIUM 1 GM in NORMAL SALINE 50 ML IV SCH ×5 (00:21→23:36)
[2017-03-15] MEDS: INSULIN LISPRO 100 UNIT/ML 3 ML VIAL SUBCUT PRN ×3 (00:21→22:11)
[2017-03-15] MEDS: LANSOPRAZOLE 30 MG TAB.RAP.DR PO SCH (05:16)
[2017-03-15] MEDS: OXYCODONE-ACETAMINOPHEN 5-325 MG TABLET PO PRN ×4 (06:12→19:43)
[2017-03-15 06:30] LABS: ANION GAP 12 (5-19); BLOOD UREA NITROGEN 19 mg/dL (7-20); CALCIUM 8.7 mg/dL (8.4-10.2); CARBON DIOXIDE 21 mmol/L (22-30); CHLORIDE 106 mmol/L (98-107); CREATININE RESULT 1.13 mg/dL (0.52-1.25); GLUCOSE 298 mg/dL (75-110); MAGNESIUM 2.2 mg/dL (1.6-2.3); POTASSIUM 4.3 mmol/L (3.6-5.0); SODIUM 138.9 mmol/L (137-145)
[2017-03-15 07:00] LABS: HEMATOCRIT 49.6 % (36.0-47.0); HEMOGLOBIN 14.8 g/dL (12.0-15.5); MEAN CORPUSCULAR HEMOGLOBIN 19.5 pg (27.0-33.4); MEAN CORPUSCULAR HGB CONC 29.9 g/dL (32.0-36.0); MEAN CORPUSCULAR VOLUME 65 fl (80-97); RED CELL DISTRIBUTION WIDTH 22.1 % (11.5-14.0); WHITE BLOOD COUNT 27.3 10^3/uL (4.0-10.5)
[2017-03-15 07:03] LABS: HGB HCT DIFFERENCE -5.2
[2017-03-15] MEDS: GLIMEPIRIDE 1 MG TABLET PO SCH ×2 (08:01→17:25)
[2017-03-15] MEDS: CLOPIDOGREL BISULFATE 75 MG TABLET PO SCH (09:18)
[2017-03-15] MEDS: SITAGLIPTIN PHOSPHATE 50 MG TABLET PO SCH (09:18)
[2017-03-15] MEDS: ASPIRIN 81 MG TABLET, ENT COATED PO SCH (09:19)
[2017-03-15] MEDS: METOPROLOL TARTRATE 100 MG TABLET PO SCH ×2 (09:19→21:22)
[2017-03-15] MEDS: ISOSORBIDE MONONITRATE 30 MG TAB.ER.24H PO SCH (09:19)
[2017-03-15] MEDS: DOCUSATE SODIUM 100 MG CAPSULE PO SCH ×2 (09:19→17:25)
[2017-03-15] MEDS ORDERED: (PENDING PHARMACY ID) (Rosuvastatin Calcium [Crestor] 40 MG) PO SCH (10:00)
[2017-03-15] MEDS: NORMAL SALINE 1000 ML 1,000 ML IV PRN (11:16)
--- NOTE | 2017-03-15 13:54 | PDOC PROGRESS REPORT ---
Subjective Subjective:: the patient is c/o right axillary discomfort following right shoulder movement Physical Exam Vital Signs: Temp Pulse Resp BP Pulse Ox 98.4 F 84 12 163/73 H 97 03/15/17 11:26 03/15/17 11:26 03/15/17 11:26 03/15/17 11:26 03/15/17 11:26 Intake & Output 03/14/17 03/15/17 03/16/17 06:59 06:59 06:59 Intake Total 3278 237 Output Total 300 700 Balance 2978 -463 Weight 97.4 kg Extremities exam: PRESENT: other - Right upper extermity: axilla with packing in place inside wound, minimal cellulitis, slightly tender on palpation, no drainage, no odor Results Laboratory Results: 03/15/17 05:16 03/15/17 05:16 03/15/17 03/15/17 05:16 05:16 WBC 27.3 H RBC 7.60 H Hgb 14.8 Hct 49.6 H MCV 65 L MCH 19.5 L MCHC 29.9 L RDW 22.1 H Plt Count 213 Sodium 138.9 Potassium 4.3 Chloride 106 Carbon Dioxide 21 L Anion Gap 12 BUN 19 Creatinine 1.13 Est GFR ( Amer) 56 L Est GFR (Non-Af Amer) 46 L Glucose 298 H Calcium 8.7 Magnesium 2.2 Impressions: Cervical Spine CT 03/14/17 03:19 IMPRESSION: No acute fracture in the cervical spine. Degenerative changes. Chest X-Ray 03/14/17 03:19 IMPRESSION: Mild left basilar atelectasis. Head CT 03/14/17 03:19 IMPRESSION: No acute intracranial hemorrhage or depressed calvarial fracture. 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 Assessment & Plan - Plan Summary Plan Summary: Assessment: POD #1 after incision and drainage of right axillary abscess Physical exam shows minimal cellulitis of the area, no drainage or odor Cx of the abscess are currently pending, MRSA suspected, but not proven Plan: Pack right axillary wound with NS wet-to-dry daily Please, tailor antibiotic treatment according to culture results, when available Our Service will sign off, please, call us with questions
--- NOTE | 2017-03-15 14:41 | Physician Advisory Note ---
Physician Advisor ProgressNote .: [facility], I have reviewed the medical record for this patient. Physician Advisor Statement: Please consider documentin. "Chronic diastolic CHF" 2. "Acute kidney injury due to intravascular volume depletion, resolved after IVF" 3. "Acute metabolic acidosis due to IMANI" Status: 81yo w/HTN, HLD, chr diast CHF, CAD/MS, DM-2, CVA, chronic leukocytosis in the 20s, chronic low back pain recently begun on oxycontin presented after repeated falls, lightheadedness, w/poor po intake, poor appetite , unsteady gait. Frail, chronically ill appearing, w/low BP (108/60, as low as 100/54), tachycardia (107), acutely worsened WBC 31.7 w/acute bandemia, elevated Hgb 15.9 (Hgb baseline 14s), BUN 36, Cr 1.64, glc 336, U/A (+), Rt occipital bruising. IVF but ED gave Rocephin, 500ml NS. Attg ordered 1L NS bolus, then careful rate 83ml/hr (given risk of exacerbation of underlying CHF), Amp IV, tele monitoring, surgery consult, PT eval, f/u labs through 03/16. Since admission, pt w/max temp 99.5, tachycardia persistent into 03/15 AM, hypotension improved. WBC slightly better at 27.3, with worsened bicarb now down from 24 to 21, Cr back down to 1.13. Glc has been frequently in the 400s, now in 200s. Abscess has been drained & cx is growing GNRs. Surgeon concerned for possible MRSA. So: elderly pt, frail w/multiple concerning co-morbidities, here with possible sepsis at time of adm, likely due to axillary abscess, BP & ARF responding to IVF but new acute metabolic acidosis for which IVF will likely be continued, continued hyperglycemia, and wound growing GPC which could be MRSA. Pt needs close monitoring for continued careful IVF, watching for acute fluid overload as well as for resolution vs worsening of acute metabolic acidosis, continued abx with close monitoring of clinical response & results of cx, continued close monitoring of FSBS trends. Attending has added new abx today, clearly is not comfortable sending pt out of hospital yet until further progress is made towards baseline. Appropriate for Inpt status. Thanks! CK
--- NOTE | 2017-03-15 16:44 | PDOC PROGRESS REPORT ---
Subjective Progress Note for:: 03/15/17 Subjective:: Patient was seen on morning rounds. She is resting fairly comfortably in bed. She is complaining of pain in the right axillary region from her incision and drainage yesterday afternoon. She states the abscess does not feel improved from prior to the procedure. She denies any fever or chills overnight. She denies any chest pain, dyspnea or palpitations. She denies any nausea, vomiting or abdominal pain. Remaining review of systems are negative Physical Exam Vital Signs: Temp Pulse Resp BP Pulse Ox 98.2 F 81 19 151/68 H 98 03/15/17 15:39 03/15/17 15:39 03/15/17 15:39 03/15/17 15:39 03/15/17 15:39 Intake & Output 03/14/17 03/15/17 03/16/17 06:59 06:59 06:59 Intake Total 3278 237 Output Total 300 700 Balance 2978 -463 Weight 97.4 kg General appearance: PRESENT: no acute distress, obese, well-developed, well- nourished Head exam: PRESENT: atraumatic, normocephalic Eye exam: PRESENT: conjunctiva pink, EOMI, PERRLA. ABSENT: scleral icterus Ear exam: PRESENT: normal external ear exam Mouth exam: PRESENT: moist, tongue midline Neck exam: ABSENT: carotid bruit, JVD, lymphadenopathy, thyromegaly Respiratory exam: PRESENT: clear to auscultation carmen. ABSENT: rales, rhonchi, wheezes Cardiovascular exam: PRESENT: RRR. ABSENT: diastolic murmur, rubs, systolic murmur Pulses: PRESENT: normal dorsalis pedis pul Vascular exam: PRESENT: normal capillary refill GI/Abdominal exam: PRESENT: normal bowel sounds, soft. ABSENT: distended, guarding, mass, organolmegaly, rebound, tenderness Rectal exam: PRESENT: deferred Neurological exam: PRESENT: alert, awake, oriented to person, oriented to place , oriented to time, oriented to situation, CN II-XII grossly intact. ABSENT: motor sensory deficit Psychiatric exam: PRESENT: appropriate affect, normal mood. ABSENT: homicidal ideation, suicidal ideation Skin exam: PRESENT: dry, intact, warm, other - Dressing right axilla dry and intact. ABSENT: cyanosis, rash Results Laboratory Results: 03/15/17 05:16 03/15/17 05:16 03/15/17 03/15/17 05:16 05:16 WBC 27.3 H RBC 7.60 H Hgb 14.8 Hct 49.6 H MCV 65 L MCH 19.5 L MCHC 29.9 L RDW 22.1 H Plt Count 213 Sodium 138.9 Potassium 4.3 Chloride 106 Carbon Dioxide 21 L Anion Gap 12 BUN 19 Creatinine 1.13 Est GFR ( Amer) 56 L Est GFR (Non-Af Amer) 46 L Glucose 298 H Calcium 8.7 Magnesium 2.2 Impressions: Cervical Spine CT 03/14/17 03:19 IMPRESSION: No acute fracture in the cervical spine. Degenerative changes. Chest X-Ray 03/14/17 03:19 IMPRESSION: Mild left basilar atelectasis. Head CT 03/14/17 03:19 IMPRESSION: No acute intracranial hemorrhage or depressed calvarial fracture. 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 Assessment & Plan - Diagnosis (1) IMANI (acute kidney injury) Is this a current diagnosis for this admission?: YesPlan: Resolved with IV hydration, secondary to prerenal cause from infection. (3) Bandemia Is this a current diagnosis for this admission?: YesPlan: Resolved with antibiotics (4) Leukocytosis Qualifiers: Leukocytosis type: unspecified Qualified Code(s): D72.829 - Elevated white blood cell count, unspecified (5) Sepsis Qualifiers: Sepsis type: sepsis due to unspecified organism Qualified Code(s): A41.9 - Sepsis, unspecified organism Is this a current diagnosis for this admission?: YesPlan: Resolved with IV antibiotics and hydration (6) Chronic diastolic CHF (congestive heart failure) Is this a current diagnosis for this admission?: YesPlan: Patient is euvolemic - Time Time Spent with patient: 25-34 minutes Critical Time spent with patient: 15-24 minutes Anticipated discharge: Home with Homehealth
[2017-03-15] MEDS: ATORVASTATIN CALCIUM 80 MG TABLET PO SCH (21:22)
[2017-03-15] MEDS: ONDANSETRON 4 MG TAB.RAPDIS PO PRN (21:22)
[2017-03-15] MEDS: DOXYCYCLINE HYCLATE 100 MG TABLET PO SCH (21:22)
[2017-03-16] MEDS: NORMAL SALINE 1000 ML 1,000 ML IV PRN ×2 (01:24→20:42)
[2017-03-16] MEDS: AMPICILLIN SODIUM 1 GM in NORMAL SALINE 50 ML IV SCH ×2 (05:14→11:10)
[2017-03-16] MEDS: LANSOPRAZOLE 30 MG TAB.RAP.DR PO SCH (05:14)
[2017-03-16 07:11] LABS: ANION GAP 10 (5-19); BLOOD UREA NITROGEN 11 mg/dL (7-20); CALCIUM 8.9 mg/dL (8.4-10.2); CARBON DIOXIDE 21 mmol/L (22-30); CHLORIDE 108 mmol/L (98-107); CREATININE RESULT 1.01 mg/dL (0.52-1.25); GLUCOSE 239 mg/dL (75-110); POTASSIUM 4.6 mmol/L (3.6-5.0); SODIUM 138.5 mmol/L (137-145)
[2017-03-16] MEDS: GLIMEPIRIDE 1 MG TABLET PO SCH ×2 (07:22→17:50)
[2017-03-16] MEDS: OXYCODONE-ACETAMINOPHEN 5-325 MG TABLET PO PRN (08:27)
[2017-03-16] MEDS: ONDANSETRON 4 MG TAB.RAPDIS PO PRN (08:27)
[2017-03-16] MEDS: DOCUSATE SODIUM 100 MG CAPSULE PO SCH ×2 (09:02→17:50)
[2017-03-16] MEDS: ISOSORBIDE MONONITRATE 30 MG TAB.ER.24H PO SCH (09:03)
[2017-03-16] MEDS: DOXYCYCLINE HYCLATE 100 MG TABLET PO SCH (09:03)
[2017-03-16] MEDS: CLOPIDOGREL BISULFATE 75 MG TABLET PO SCH (09:03)
[2017-03-16] MEDS: METOPROLOL TARTRATE 100 MG TABLET PO SCH ×2 (09:03→21:50)
[2017-03-16] MEDS: SITAGLIPTIN PHOSPHATE 50 MG TABLET PO SCH (09:03)
[2017-03-16] MEDS: ASPIRIN 81 MG TABLET, ENT COATED PO SCH (09:03)
[2017-03-16] MEDS: LOSARTAN POTASSIUM 50 MG TABLET PO SCH (09:03)
[2017-03-16 09:34] LABS: ADD MANUAL MICRO HEMATOCRIT YES
[2017-03-16 09:36] LABS: MICRO HEMATOCRIT 1 AUTO 40.8 %; MICRO HEMATOCRIT 2 AUTO 44.8 %; MICRO HEMATOCRIT 2 MANUAL 45.5 %
[2017-03-16 10:05] LABS: ANISOCYTOSIS 2+; BASOPHILS % (MANUAL) 0 % (0-2); EOSINOPHILS % (MANUAL) 1 % (0-6); LYMPHOCYTES % (MANUAL) 5 % (13-45); MICROCYTOSIS 3+; TOTAL CELLS COUNTED 100; TOXIC GRANULATION 1+; TOXIC VACUOLATION PRESENT
[2017-03-16 10:06] LABS: OVALOCYTES SLIGHT; POIKILOCYTOSIS SLIGHT
[2017-03-16] MEDS ORDERED: VANCOMYCIN HCL 0 MG in DEXTROSE 5%-WATER 250 ML IV NR (11:30)
[2017-03-16] MEDS: INSULIN LISPRO 100 UNIT/ML 3 ML VIAL SUBCUT PRN ×3 (12:58→21:50)
[2017-03-16] MEDS: VANCOMYCIN HCL 1,250 MG in DEXTROSE 5%-WATER 250 ML IV SCH (14:57)
--- NOTE | 2017-03-16 15:28 | PDOC PROGRESS REPORT ---
Subjective Progress Note for:: 03/16/17 Subjective:: Patient was seen on morning rounds. She is resting fairly comfortably in bed. She is complaining of pain in the right axillary region from her incision and drainage. She states the abscess does not feel improved from prior to the procedure. Nursing reports patient has been tearful this morning. She denies any fever or chills overnight. She denies any chest pain, dyspnea or palpitations. She denies any nausea, vomiting or abdominal pain. Remaining review of systems are negative Physical Exam Vital Signs: Temp Pulse Resp BP Pulse Ox 98.4 F 88 18 158/83 H 96 03/16/17 11:35 03/16/17 14:00 03/16/17 11:35 03/16/17 11:35 03/16/17 11:35 Intake & Output 03/15/17 03/16/17 03/17/17 06:59 06:59 06:59 Intake Total 3278 3362 300 Output Total 300 2550 1200 Balance 2978 812 -900 Weight 97.4 kg General appearance: PRESENT: no acute distress, obese, well-developed, well- nourished Head exam: PRESENT: atraumatic, normocephalic Eye exam: PRESENT: conjunctiva pink, EOMI, PERRLA. ABSENT: scleral icterus Ear exam: PRESENT: normal external ear exam Mouth exam: PRESENT: moist, tongue midline Neck exam: ABSENT: carotid bruit, JVD, lymphadenopathy, thyromegaly Respiratory exam: PRESENT: clear to auscultation carmen. ABSENT: rales, rhonchi, wheezes Pulses: PRESENT: normal dorsalis pedis pul Vascular exam: PRESENT: normal capillary refill GI/Abdominal exam: PRESENT: normal bowel sounds, soft. ABSENT: distended, guarding, mass, organolmegaly, rebound, tenderness Rectal exam: PRESENT: deferred Extremities exam: PRESENT: full ROM. ABSENT: calf tenderness, clubbing, pedal edema Musculoskeletal exam: PRESENT: ambulatory Neurological exam: PRESENT: alert Psychiatric exam: PRESENT: appropriate affect, normal mood. ABSENT: homicidal ideation, suicidal ideation Skin exam: PRESENT: erythema, warm, other Results Laboratory Results: 03/16/17 09:05 03/16/17 05:50 03/16/17 03/16/17 03/16/17 05:50 05:50 09:05 WBC Cancelled 25.0 H RBC Cancelled Hgb Cancelled Hct Cancelled MCV Cancelled MCH Cancelled MCHC Cancelled RDW Cancelled Plt Count Cancelled 251 Seg Neutrophils % Cancelled Not Reportable Lymphocytes % Cancelled Not Reportable Monocytes % Cancelled Not Reportable Eosinophils % Cancelled Not Reportable Basophils % Cancelled Not Reportable Absolute Neutrophils Cancelled Not Reportable Absolute Lymphocytes Cancelled Not Reportable Absolute Monocytes Cancelled Not Reportable Absolute Eosinophils Cancelled Not Reportable Absolute Basophils Cancelled Not Reportable Sodium 138.5 Potassium 4.6 Chloride 108 H Carbon Dioxide 21 L Anion Gap 10 BUN 11 Creatinine 1.01 Est GFR ( Amer) > 60 Est GFR (Non-Af Amer) 53 L Glucose 239 H Calcium 8.9 03/14/17 20:33 Arm - Abscess Gram Stain - Final 03/14/17 20:33 Arm - Abscess Wound Culture - Final Mrsa (Meth Resis Staph Aureus) No Anaerobic Organisms Impressions: Cervical Spine CT 03/14/17 03:19 IMPRESSION: No acute fracture in the cervical spine. Degenerative changes. Chest X-Ray 03/14/17 03:19 IMPRESSION: Mild left basilar atelectasis. Head CT 03/14/17 03:19 IMPRESSION: No acute intracranial hemorrhage or depressed calvarial fracture. 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 Assessment & Plan - Diagnosis (1) IMANI (acute kidney injury) Is this a current diagnosis for this admission?: YesPlan: Resolved with IV hydration, secondary to prerenal cause from infection. (2) Cutaneous abscess of right axilla Is this a current diagnosis for this admission?: YesPlan: Improving, cultures growing MRSA (3) Bandemia Is this a current diagnosis for this admission?: YesPlan: Resolved with antibiotics (4) Leukocytosis Qualifiers: Leukocytosis type: unspecified Qualified Code(s): D72.829 - Elevated white blood cell count, unspecified Plan: Patient is on Vancomycin (5) Sepsis Qualifiers: Sepsis type: sepsis due to unspecified organism Qualified Code(s): A41.9 - Sepsis, unspecified organism Is this a current diagnosis for this admission?: YesPlan: Resolved with IV antibiotics and hydration (6) Chronic diastolic CHF (congestive heart failure) Is this a current diagnosis for this admission?: YesPlan: Patient is euvolemic - Time Time Spent with patient: 25-34 minutes Critical Time spent with patient: 15-24 minutes Medications reviewed and adjusted accordingly: Yes Anticipated discharge: SNF
[2017-03-16] MEDS ORDERED: DIPHENHYDRAMINE HCL 25 MG/10 ML UDC PO ONE (21:00)
[2017-03-16] MEDS: ATORVASTATIN CALCIUM 80 MG TABLET PO SCH (21:50)
[2017-03-17] MEDS: OXYCODONE-ACETAMINOPHEN 5-325 MG TABLET PO PRN ×2 (02:41→11:03)
[2017-03-17] MEDS: LANSOPRAZOLE 30 MG TAB.RAP.DR PO SCH (05:28)
[2017-03-17] MEDS: GLIMEPIRIDE 1 MG TABLET PO SCH ×2 (07:20→17:03)
[2017-03-17] MEDS: CLOPIDOGREL BISULFATE 75 MG TABLET PO SCH (09:21)
[2017-03-17] MEDS: DOCUSATE SODIUM 100 MG CAPSULE PO SCH ×2 (09:21→17:03)
[2017-03-17] MEDS: ISOSORBIDE MONONITRATE 30 MG TAB.ER.24H PO SCH (09:21)
[2017-03-17] MEDS: SITAGLIPTIN PHOSPHATE 50 MG TABLET PO SCH (09:21)
[2017-03-17] MEDS: ASPIRIN 81 MG TABLET, ENT COATED PO SCH (09:21)
[2017-03-17] MEDS: LOSARTAN POTASSIUM 50 MG TABLET PO SCH (09:21)
[2017-03-17] MEDS: METOPROLOL TARTRATE 100 MG TABLET PO SCH ×2 (09:21→20:50)
[2017-03-17] MEDS: INSULIN LISPRO 100 UNIT/ML 3 ML VIAL SUBCUT PRN ×3 (12:58→21:58)
[2017-03-17] MEDS: VANCOMYCIN HCL 1,250 MG in DEXTROSE 5%-WATER 250 ML IV SCH (13:21)
--- NOTE | 2017-03-17 16:46 | PDOC PROGRESS REPORT ---
Subjective Progress Note for:: 03/17/17 Subjective:: Patient was seen on morning rounds. She is resting fairly comfortably in bed. She is complaining of pain in the right axillary region from her incision and drainage. She states the abscess does not feel improved from prior to the procedure. Nursing reports patient has been tearful this morning. She denies any fever or chills overnight. She denies any chest pain, dyspnea or palpitations. She denies any nausea, vomiting or abdominal pain. Remaining review of systems are negative Physical Exam Vital Signs: Temp Pulse Resp BP Pulse Ox 98.2 F 76 17 151/93 H 94 03/17/17 15:21 03/17/17 15:21 03/17/17 15:21 03/17/17 15:21 03/17/17 15:21 Intake & Output 03/16/17 03/17/17 03/18/17 06:59 06:59 06:59 Intake Total 3362 1926 0 Output Total 2550 3450 1000 Balance 812 -1524 -1000 Weight 98.2 kg General appearance: PRESENT: no acute distress, obese, well-developed, well- nourished Head exam: PRESENT: atraumatic, normocephalic Eye exam: PRESENT: conjunctiva pink, EOMI, PERRLA. ABSENT: scleral icterus Ear exam: PRESENT: normal external ear exam Mouth exam: PRESENT: moist, tongue midline Neck exam: ABSENT: carotid bruit, JVD, lymphadenopathy, thyromegaly Respiratory exam: PRESENT: clear to auscultation carmen. ABSENT: rales, rhonchi, wheezes Cardiovascular exam: PRESENT: RRR. ABSENT: diastolic murmur, rubs, systolic murmur Pulses: PRESENT: normal dorsalis pedis pul Vascular exam: PRESENT: normal capillary refill GI/Abdominal exam: PRESENT: normal bowel sounds, soft. ABSENT: distended, guarding, mass, organolmegaly, rebound, tenderness Rectal exam: PRESENT: deferred Extremities exam: PRESENT: full ROM. ABSENT: calf tenderness, clubbing, pedal edema Musculoskeletal exam: PRESENT: ambulatory, tenderness - Right axilla Neurological exam: PRESENT: alert, oriented to person, oriented to place, oriented to situation, CN II-XII grossly intact Psychiatric exam: PRESENT: appropriate affect, normal mood. ABSENT: homicidal ideation, suicidal ideation Skin exam: PRESENT: dry, intact, warm. ABSENT: cyanosis, rash Results Laboratory Results: 03/16/17 09:05 03/16/17 05:50 Impressions: Cervical Spine CT 03/14/17 03:19 IMPRESSION: No acute fracture in the cervical spine. Degenerative changes. Chest X-Ray 03/14/17 03:19 IMPRESSION: Mild left basilar atelectasis. Head CT 03/14/17 03:19 IMPRESSION: No acute intracranial hemorrhage or depressed calvarial fracture. 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 Assessment & Plan - Diagnosis (1) IMANI (acute kidney injury) Is this a current diagnosis for this admission?: YesPlan: Resolved with IV hydration, secondary to prerenal cause from infection. (2) Cutaneous abscess of right axilla Is this a current diagnosis for this admission?: YesPlan: Improving, cultures growing MRSA (3) Bandemia Is this a current diagnosis for this admission?: YesPlan: Resolved with antibiotics (4) Leukocytosis Qualifiers: Leukocytosis type: unspecified Qualified Code(s): D72.829 - Elevated white blood cell count, unspecified Plan: Patient is on Vancomycin (5) Sepsis Qualifiers: Sepsis type: sepsis due to unspecified organism Qualified Code(s): A41.9 - Sepsis, unspecified organism Is this a current diagnosis for this admission?: NoPlan: Resolved with IV antibiotics and hydration (6) Chronic diastolic CHF (congestive heart failure) Is this a current diagnosis for this admission?: NoPlan: Patient is euvolemic - Time Time Spent with patient: 25-34 minutes Critical Time spent with patient: 15-24 minutes Anticipated discharge: Acute Rehab Within: when bed available
[2017-03-17] MEDS: ATORVASTATIN CALCIUM 80 MG TABLET PO SCH (20:50)
[2017-03-18] MEDS: OXYCODONE-ACETAMINOPHEN 5-325 MG TABLET PO PRN ×3 (01:49→12:41)
[2017-03-18] MEDS: LANSOPRAZOLE 30 MG TAB.RAP.DR PO SCH (05:12)
[2017-03-18 05:55] LABS: HEMATOCRIT 51.8 % (36.0-47.0); HGB HCT DIFFERENCE -3.8; MEAN CORPUSCULAR HEMOGLOBIN 20.1 pg (27.0-33.4); MEAN CORPUSCULAR HGB CONC 30.9 g/dL (32.0-36.0); MEAN CORPUSCULAR VOLUME 65 fl (80-97); RED CELL DISTRIBUTION WIDTH 21.9 % (11.5-14.0); WHITE BLOOD COUNT 23.8 10^3/uL (4.0-10.5)
[2017-03-18 05:59] LABS: RED BLOOD COUNT 7.97 10^6/uL (3.72-5.28)
[2017-03-18 06:06] LABS: ANION GAP 10 (5-19); BLOOD UREA NITROGEN 12 mg/dL (7-20); CALCIUM 9.4 mg/dL (8.4-10.2); CARBON DIOXIDE 26 mmol/L (22-30); CHLORIDE 105 mmol/L (98-107); CREATININE RESULT 0.98 mg/dL (0.52-1.25); GLUCOSE 241 mg/dL (75-110); POTASSIUM 3.9 mmol/L (3.6-5.0); SODIUM 140.5 mmol/L (137-145)
[2017-03-18 07:04] LABS: BAND NEUTROPHILS % (MANUAL) 6 % (3-5); BASOPHILS % (MANUAL) 0 % (0-2); EOSINOPHILS % (MANUAL) 1 % (0-6); LYMPHOCYTES % (MANUAL) 7 % (13-45); TOTAL CELLS COUNTED 100
[2017-03-18 07:09] LABS: ANISOCYTOSIS 3+; MICROCYTOSIS 3+; OVALOCYTES SLIGHT; POIKILOCYTOSIS SLIGHT; TARGET CELLS SLIGHT; TEAR DROP CELLS SLIGHT; TOXIC GRANULATION 1+; TOXIC VACUOLATION PRESENT
[2017-03-18] MEDS: INSULIN LISPRO 100 UNIT/ML 3 ML VIAL SUBCUT PRN ×3 (07:36→18:57)
[2017-03-18] MEDS: GLIMEPIRIDE 1 MG TABLET PO SCH ×2 (07:36→18:56)
[2017-03-18] MEDS: ISOSORBIDE MONONITRATE 30 MG TAB.ER.24H PO SCH (10:39)
[2017-03-18] MEDS: DOCUSATE SODIUM 100 MG CAPSULE PO SCH ×2 (10:39→18:56)
[2017-03-18] MEDS: CLOPIDOGREL BISULFATE 75 MG TABLET PO SCH (10:39)
[2017-03-18] MEDS: LOSARTAN POTASSIUM 50 MG TABLET PO SCH (10:39)
[2017-03-18] MEDS: ASPIRIN 81 MG TABLET, ENT COATED PO SCH (10:39)
[2017-03-18] MEDS: SITAGLIPTIN PHOSPHATE 50 MG TABLET PO SCH (10:40)
[2017-03-18] MEDS: METOPROLOL TARTRATE 100 MG TABLET PO SCH ×2 (10:40→21:16)
--- NOTE | 2017-03-18 13:38 | PDOC PROGRESS REPORT ---
Subjective Progress Note for:: 03/18/17 Subjective:: Patient was seen on morning rounds. She is resting fairly comfortably in bed. She is complaining of pain in the right axillary region from her incision and drainage. She states the abscess does not feel improved from prior to the procedure. Nursing reports patient has been tearful this morning. She denies any fever or chills overnight. She denies any chest pain, dyspnea or palpitations. She denies any nausea, vomiting or abdominal pain. Remaining review of systems are negative Physical Exam Vital Signs: Temp Pulse Resp BP Pulse Ox 98.2 F 92 19 145/63 H 89 L 03/18/17 11:20 03/18/17 11:20 03/18/17 11:20 03/18/17 11:20 03/18/17 11:20 Intake & Output 03/17/17 03/18/17 03/19/17 06:59 06:59 06:59 Intake Total 1926 825 490 Output Total 3450 2200 Balance -1524 -1375 490 Weight 94.2 kg General appearance: PRESENT: no acute distress, obese, well-developed, well- nourished Head exam: PRESENT: atraumatic, normocephalic Eye exam: PRESENT: conjunctiva pink, EOMI, PERRLA. ABSENT: scleral icterus Ear exam: PRESENT: normal external ear exam Mouth exam: PRESENT: moist, tongue midline Neck exam: ABSENT: carotid bruit, JVD, lymphadenopathy, thyromegaly Respiratory exam: PRESENT: clear to auscultation carmen. ABSENT: rales, rhonchi, wheezes Cardiovascular exam: PRESENT: RRR. ABSENT: diastolic murmur, rubs, systolic murmur Pulses: PRESENT: normal dorsalis pedis pul GI/Abdominal exam: PRESENT: normal bowel sounds, soft. ABSENT: distended, guarding, mass, organolmegaly, rebound, tenderness Rectal exam: PRESENT: deferred Extremities exam: PRESENT: full ROM. ABSENT: calf tenderness, clubbing, pedal edema Musculoskeletal exam: PRESENT: ambulatory, full ROM Neurological exam: PRESENT: alert, awake, oriented to person, oriented to place , oriented to time, oriented to situation, CN II-XII grossly intact. ABSENT: motor sensory deficit Psychiatric exam: PRESENT: depressed, other - tearful at times Skin exam: PRESENT: dry - Right AXILLA covered with surgical dressing, warm, other Results Laboratory Results: 03/18/17 05:12 03/18/17 05:12 03/18/17 03/18/17 05:12 05:12 WBC 23.8 H RBC 7.97 H Hgb 16.0 H Hct 51.8 H MCV 65 L MCH 20.1 L MCHC 30.9 L RDW 21.9 H Plt Count 283 Seg Neutrophils % Not Reportable Lymphocytes % Not Reportable Monocytes % Not Reportable Eosinophils % Not Reportable Basophils % Not Reportable Absolute Neutrophils Not Reportable Absolute Lymphocytes Not Reportable Absolute Monocytes Not Reportable Absolute Eosinophils Not Reportable Absolute Basophils Not Reportable Sodium 140.5 Potassium 3.9 Chloride 105 Carbon Dioxide 26 Anion Gap 10 BUN 12 Creatinine 0.98 Est GFR ( Amer) > 60 Est GFR (Non-Af Amer) 54 L Glucose 241 H Calcium 9.4 Impressions: Cervical Spine CT 03/14/17 03:19 IMPRESSION: No acute fracture in the cervical spine. Degenerative changes. Chest X-Ray 03/14/17 03:19 IMPRESSION: Mild left basilar atelectasis. Head CT 03/14/17 03:19 IMPRESSION: No acute intracranial hemorrhage or depressed calvarial fracture. 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 Assessment & Plan - Diagnosis (1) IMANI (acute kidney injury) Is this a current diagnosis for this admission?: Yes (2) Cutaneous abscess of right axilla Is this a current diagnosis for this admission?: Yes (3) Bandemia Is this a current diagnosis for this admission?: Yes (4) Leukocytosis Qualifiers: Leukocytosis type: unspecified Qualified Code(s): D72.829 - Elevated white blood cell count, unspecified (5) Sepsis Qualifiers: Sepsis type: sepsis due to unspecified organism Qualified Code(s): A41.9 - Sepsis, unspecified organism Is this a current diagnosis for this admission?: No (6) Chronic diastolic CHF (congestive heart failure) Is this a current diagnosis for this admission?: No
[2017-03-18] MEDS: VANCOMYCIN HCL 1,250 MG in DEXTROSE 5%-WATER 250 ML IV SCH (13:40)
[2017-03-18] MEDS: DIPHENHYDRAMINE HCL 25 MG CAPSULE PO PRN ×2 (13:40→21:15)
[2017-03-18] MEDS ORDERED: CITALOPRAM HYDROBROMIDE 20 MG TABLET PO ONE (14:00)
[2017-03-18] MEDS: ATORVASTATIN CALCIUM 80 MG TABLET PO SCH (21:15)
[2017-03-19] MEDS: INSULIN LISPRO 100 UNIT/ML 3 ML VIAL SUBCUT PRN ×5 (00:23→22:51)
[2017-03-19] MEDS: LANSOPRAZOLE 30 MG TAB.RAP.DR PO SCH (05:38)
[2017-03-19] MEDS: OXYCODONE-ACETAMINOPHEN 5-325 MG TABLET PO PRN ×3 (05:43→21:44)
[2017-03-19] MEDS: GLIMEPIRIDE 1 MG TABLET PO SCH ×2 (07:44→17:06)
[2017-03-19] MEDS: DOCUSATE SODIUM 100 MG CAPSULE PO SCH ×2 (09:58→17:06)
[2017-03-19] MEDS: SITAGLIPTIN PHOSPHATE 50 MG TABLET PO SCH (09:59)
[2017-03-19] MEDS: METOPROLOL TARTRATE 100 MG TABLET PO SCH ×2 (09:59→21:43)
[2017-03-19] MEDS: LOSARTAN POTASSIUM 50 MG TABLET PO SCH (09:59)
[2017-03-19] MEDS: ISOSORBIDE MONONITRATE 30 MG TAB.ER.24H PO SCH (09:59)
[2017-03-19] MEDS: CLOPIDOGREL BISULFATE 75 MG TABLET PO SCH (10:00)
[2017-03-19] MEDS: CITALOPRAM HYDROBROMIDE 20 MG TABLET PO SCH (10:00)
[2017-03-19] MEDS: ASPIRIN 81 MG TABLET, ENT COATED PO SCH (10:00)
--- NOTE | 2017-03-19 12:41 | PDOC PROGRESS REPORT ---
Subjective Progress Note for:: 03/19/17 Subjective:: Patient was seen on morning rounds. She is resting out of bed in the chair. She is complaining of pain in the right axillary region from her incision and drainage. She states the pain is lessening in intensity however.. She denies any fever or chills overnight. She denies any chest pain, dyspnea or palpitations. She denies any nausea, vomiting or abdominal pain. Remaining review of systems are negative Physical Exam Vital Signs: Temp Pulse Resp BP Pulse Ox 98.3 F 106 H 20 129/78 H 94 03/19/17 11:27 03/19/17 11:27 03/19/17 11:27 03/19/17 11:27 03/19/17 11:27 Intake & Output 03/18/17 03/19/17 03/20/17 06:59 06:59 06:59 Intake Total 825 1385 598 Output Total 2200 400 900 Balance -1375 985 -302 Weight 94.2 kg 94.9 kg General appearance: PRESENT: no acute distress, obese Head exam: PRESENT: atraumatic, normocephalic Eye exam: PRESENT: conjunctiva pink, EOMI, PERRLA. ABSENT: scleral icterus Ear exam: PRESENT: normal external ear exam Mouth exam: PRESENT: moist, tongue midline Neck exam: ABSENT: carotid bruit, JVD, lymphadenopathy, thyromegaly Respiratory exam: PRESENT: clear to auscultation carmen. ABSENT: rales, rhonchi, wheezes Cardiovascular exam: PRESENT: RRR. ABSENT: diastolic murmur, rubs, systolic murmur Pulses: PRESENT: normal dorsalis pedis pul Vascular exam: PRESENT: normal capillary refill GI/Abdominal exam: PRESENT: normal bowel sounds, soft. ABSENT: distended, guarding, mass, organolmegaly, rebound, tenderness Rectal exam: PRESENT: deferred Extremities exam: PRESENT: full ROM. ABSENT: calf tenderness, clubbing, pedal edema Musculoskeletal exam: PRESENT: ambulatory, full ROM, normal inspection Neurological exam: PRESENT: alert, awake, oriented to person, oriented to place , oriented to time, oriented to situation, CN II-XII grossly intact. ABSENT: motor sensory deficit Psychiatric exam: PRESENT: appropriate affect, normal mood. ABSENT: homicidal ideation, suicidal ideation Skin exam: PRESENT: dry - Right axilla abcess improving, warm, other Results Laboratory Results: 03/18/17 05:12 03/18/17 05:12 Impressions: Cervical Spine CT 03/14/17 03:19 IMPRESSION: No acute fracture in the cervical spine. Degenerative changes. Chest X-Ray 03/14/17 03:19 IMPRESSION: Mild left basilar atelectasis. Head CT 03/14/17 03:19 IMPRESSION: No acute intracranial hemorrhage or depressed calvarial fracture. 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 Assessment & Plan - Diagnosis (1) IMANI (acute kidney injury) Is this a current diagnosis for this admission?: YesPlan: Resolved with IV hydration, secondary to prerenal cause from infection. (2) Cutaneous abscess of right axilla Is this a current diagnosis for this admission?: YesPlan: Improving, cultures growing MRSA (3) Bandemia Is this a current diagnosis for this admission?: YesPlan: Resolved with antibiotics (4) Leukocytosis Qualifiers: Leukocytosis type: unspecified Qualified Code(s): D72.829 - Elevated white blood cell count, unspecified Plan: Patient is on Vancomycin (5) Sepsis Qualifiers: Sepsis type: sepsis due to unspecified organism Qualified Code(s): A41.9 - Sepsis, unspecified organism Is this a current diagnosis for this admission?: NoPlan: Resolved with IV antibiotics and hydration (6) Chronic diastolic CHF (congestive heart failure) Is this a current diagnosis for this admission?: NoPlan: Patient is euvolemic - Time Time Spent with patient: 25-34 minutes Critical Time spent with patient: 15-24 minutes Medications reviewed and adjusted accordingly: Yes Anticipated discharge: Home with Homehealth Within: within 48 hours
[2017-03-19] MEDS: VANCOMYCIN HCL 1,250 MG in DEXTROSE 5%-WATER 250 ML IV SCH (14:21)
[2017-03-19] MEDS: DIPHENHYDRAMINE HCL 25 MG CAPSULE PO PRN ×2 (14:55→23:02)
[2017-03-19 15:31] LABS: CREATININE RESULT 0.94 mg/dL (0.52-1.25)
[2017-03-19] MEDS: ATORVASTATIN CALCIUM 80 MG TABLET PO SCH (21:43)
[2017-03-20] MEDS: LANSOPRAZOLE 30 MG TAB.RAP.DR PO SCH (05:24)
[2017-03-20] MEDS: OXYCODONE-ACETAMINOPHEN 5-325 MG TABLET PO PRN ×4 (05:25→21:57)
[2017-03-20] MEDS: INSULIN LISPRO 100 UNIT/ML 3 ML VIAL SUBCUT PRN ×4 (08:30→22:40)
[2017-03-20] MEDS: GLIMEPIRIDE 1 MG TABLET PO SCH ×2 (08:30→17:11)
[2017-03-20] MEDS: DOCUSATE SODIUM 100 MG CAPSULE PO SCH ×2 (09:13→17:11)
[2017-03-20] MEDS: CLOPIDOGREL BISULFATE 75 MG TABLET PO SCH (09:13)
[2017-03-20] MEDS: METOPROLOL TARTRATE 100 MG TABLET PO SCH ×2 (09:13→21:50)
[2017-03-20] MEDS: CITALOPRAM HYDROBROMIDE 20 MG TABLET PO SCH (09:13)
[2017-03-20] MEDS: ISOSORBIDE MONONITRATE 30 MG TAB.ER.24H PO SCH (09:14)
[2017-03-20] MEDS: ASPIRIN 81 MG TABLET, ENT COATED PO SCH (09:14)
[2017-03-20] MEDS: SITAGLIPTIN PHOSPHATE 50 MG TABLET PO SCH (09:14)
[2017-03-20] MEDS: LOSARTAN POTASSIUM 50 MG TABLET PO SCH (09:14)
[2017-03-20] MEDS ORDERED: VANCOMYCIN HCL 1,500 MG in DEXTROSE 5%-WATER 250 ML IV SCH (10:00)
--- NOTE | 2017-03-20 11:54 | PDOC PROGRESS REPORT ---
Subjective Progress Note for:: 03/20/17 Subjective:: Patient was seen on morning rounds. She is resting out of bed in the chair. She states her right axilla pain is improving. Nursing reports some more purulent drainage yesterday than previously She is no longer tearful. She denies any fever or chills overnight. She denies any chest pain, dyspnea or palpitations. She denies any nausea, vomiting or abdominal pain. Remaining review of systems are negative Physical Exam Vital Signs: Temp Pulse Resp BP Pulse Ox 98.1 F 84 19 150/64 H 94 03/20/17 07:31 03/20/17 07:31 03/20/17 07:31 03/20/17 07:31 03/20/17 07:31 Intake & Output 03/19/17 03/20/17 03/21/17 06:59 06:59 06:59 Intake Total 1385 1798 Output Total 400 2450 Balance 985 -652 Weight 94.9 kg 94.4 kg General appearance: PRESENT: no acute distress, obese, well-developed, well- nourished Head exam: PRESENT: atraumatic, normocephalic Eye exam: PRESENT: conjunctiva pale Ear exam: PRESENT: normal external ear exam Mouth exam: PRESENT: moist, tongue midline Throat exam: PRESENT: post pharyngeal erythema Neck exam: ABSENT: carotid bruit, JVD, lymphadenopathy, thyromegaly Respiratory exam: PRESENT: clear to auscultation carmen. ABSENT: rales, rhonchi, wheezes Cardiovascular exam: PRESENT: RRR. ABSENT: diastolic murmur, rubs, systolic murmur Pulses: PRESENT: normal dorsalis pedis pul Vascular exam: PRESENT: normal capillary refill GI/Abdominal exam: PRESENT: normal bowel sounds, soft. ABSENT: distended, guarding, mass, organolmegaly, rebound, tenderness Rectal exam: PRESENT: deferred Extremities exam: PRESENT: full ROM. ABSENT: calf tenderness, clubbing, pedal edema Musculoskeletal exam: PRESENT: ambulatory, full ROM Neurological exam: PRESENT: alert, awake, oriented to person, oriented to place , oriented to time, oriented to situation, CN II-XII grossly intact. ABSENT: motor sensory deficit Psychiatric exam: PRESENT: appropriate affect, normal mood. ABSENT: homicidal ideation, suicidal ideation Skin exam: PRESENT: dry - Right axilla wound, appears to be granulating, warm, other Results Laboratory Results: 03/18/17 05:12 03/19/17 13:47 03/19/17 13:47 Creatinine 0.94 Est GFR ( Amer) > 60 Est GFR (Non-Af Amer) 57 L Impressions: Cervical Spine CT 03/14/17 03:19 IMPRESSION: No acute fracture in the cervical spine. Degenerative changes. Chest X-Ray 03/14/17 03:19 IMPRESSION: Mild left basilar atelectasis. Head CT 03/14/17 03:19 IMPRESSION: No acute intracranial hemorrhage or depressed calvarial fracture. 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 Assessment & Plan - Diagnosis (1) IMANI (acute kidney injury) Is this a current diagnosis for this admission?: YesPlan: Resolved with IV hydration, secondary to prerenal cause from infection. (2) Cutaneous abscess of right axilla Is this a current diagnosis for this admission?: YesPlan: Improving, cultures growing MRSA (3) Bandemia Is this a current diagnosis for this admission?: YesPlan: Resolving with antibiotics (4) Leukocytosis Qualifiers: Leukocytosis type: unspecified Qualified Code(s): D72.829 - Elevated white blood cell count, unspecified Plan: Patient is on Vancomycin (5) Sepsis Qualifiers: Sepsis type: sepsis due to unspecified organism Qualified Code(s): A41.9 - Sepsis, unspecified organism Is this a current diagnosis for this admission?: NoPlan: Resolved with IV antibiotics and hydration (6) Chronic diastolic CHF (congestive heart failure) Is this a current diagnosis for this admission?: NoPlan: Patient is euvolemic - Time Time Spent with patient: 25-34 minutes Critical Time spent with patient: 15-24 minutes Medications reviewed and adjusted accordingly: Yes Anticipated discharge: Home with Homehealth, Acute Rehab
[2017-03-20] MEDS: ATORVASTATIN CALCIUM 80 MG TABLET PO SCH (21:50)
[2017-03-21] MEDS: LANSOPRAZOLE 30 MG TAB.RAP.DR PO SCH (05:45)
[2017-03-21 06:37] LABS: HEMOGLOBIN 15.6 g/dL (12.0-15.5); HGB HCT DIFFERENCE -3.2; MEAN CORPUSCULAR HEMOGLOBIN 20.4 pg (27.0-33.4); MEAN CORPUSCULAR HGB CONC 31.2 g/dL (32.0-36.0); MEAN CORPUSCULAR VOLUME 65 fl (80-97); RED BLOOD COUNT 7.64 10^6/uL (3.72-5.28); RED CELL DISTRIBUTION WIDTH 21.9 % (11.5-14.0); WHITE BLOOD COUNT 24.5 10^3/uL (4.0-10.5)
[2017-03-21 06:42] LABS: ANION GAP 12 (5-19); BLOOD UREA NITROGEN 13 mg/dL (7-20); CALCIUM 9.4 mg/dL (8.4-10.2); CARBON DIOXIDE 24 mmol/L (22-30); CHLORIDE 103 mmol/L (98-107); CREATININE RESULT 0.92 mg/dL (0.52-1.25); GLUCOSE 233 mg/dL (75-110); POTASSIUM 4.8 mmol/L (3.6-5.0); SODIUM 138.6 mmol/L (137-145)
[2017-03-21 07:15] LABS: BAND NEUTROPHILS % (MANUAL) 1 % (3-5); BASOPHILS % (MANUAL) 0 % (0-2); EOSINOPHILS % (MANUAL) 0 % (0-6); LYMPHOCYTES % (MANUAL) 10 % (13-45); TOTAL CELLS COUNTED 100
[2017-03-21 07:20] LABS: MICROCYTOSIS 3+; OVALOCYTES SLIGHT; POLYCHROMASIA SLIGHT; TEAR DROP CELLS SLIGHT; TOXIC VACUOLATION PRESENT
[2017-03-21 07:21] LABS: ANISOCYTOSIS 3+; POIKILOCYTOSIS 1+
[2017-03-21] MEDS: GLIMEPIRIDE 1 MG TABLET PO SCH ×2 (07:36→17:13)
[2017-03-21] MEDS: INSULIN LISPRO 100 UNIT/ML 3 ML VIAL SUBCUT PRN ×4 (07:36→22:24)
[2017-03-21] MEDS: CITALOPRAM HYDROBROMIDE 20 MG TABLET PO SCH (09:53)
[2017-03-21] MEDS: ISOSORBIDE MONONITRATE 30 MG TAB.ER.24H PO SCH (09:53)
[2017-03-21] MEDS: ONDANSETRON 4 MG TAB.RAPDIS PO PRN ×2 (09:53→21:27)
[2017-03-21] MEDS: DOCUSATE SODIUM 100 MG CAPSULE PO SCH ×2 (09:53→17:12)
[2017-03-21] MEDS: CLOPIDOGREL BISULFATE 75 MG TABLET PO SCH (09:53)
[2017-03-21] MEDS: DOXYCYCLINE HYCLATE 100 MG TABLET PO SCH ×2 (09:53→21:26)
[2017-03-21] MEDS: ASPIRIN 81 MG TABLET, ENT COATED PO SCH (09:53)
[2017-03-21] MEDS: LOSARTAN POTASSIUM 50 MG TABLET PO SCH (09:54)
[2017-03-21] MEDS: METOPROLOL TARTRATE 100 MG TABLET PO SCH ×2 (09:54→21:27)
[2017-03-21] MEDS: SITAGLIPTIN PHOSPHATE 50 MG TABLET PO SCH (09:54)
[2017-03-21] MEDS: OXYCODONE-ACETAMINOPHEN 5-325 MG TABLET PO PRN (09:54)
[2017-03-21] MEDS: DIPHENHYDRAMINE HCL 25 MG CAPSULE PO PRN (11:53)
--- NOTE | 2017-03-21 16:03 | PDOC PROGRESS REPORT ---
Subjective Progress Note for:: 03/21/17 Subjective:: Patient was seen on morning rounds. She is resting in bed. She is complaining of nausea this morning. She is complaining of a rash under her breasts and pannus. She denies any fever or chills overnight. She denies any chest pain, dyspnea or palpitations. She denies any nausea, vomiting or abdominal pain. Remaining review of systems are negative Physical Exam Vital Signs: Temp Pulse Resp BP Pulse Ox 98.4 F 68 20 135/63 H 90 L 03/21/17 12:05 03/21/17 14:00 03/21/17 12:05 03/21/17 12:05 03/21/17 12:05 Intake & Output 03/20/17 03/21/17 03/22/17 06:59 06:59 06:59 Intake Total 1798 2010 695 Output Total 2450 975 Balance -652 1035 695 Weight 94.4 kg 94 kg General appearance: PRESENT: no acute distress, obese, well-developed, well- nourished Head exam: PRESENT: atraumatic, normocephalic Eye exam: PRESENT: conjunctiva pink, EOMI, PERRLA. ABSENT: scleral icterus Ear exam: PRESENT: normal external ear exam Mouth exam: PRESENT: moist, tongue midline Neck exam: ABSENT: carotid bruit, JVD, lymphadenopathy, thyromegaly Respiratory exam: PRESENT: clear to auscultation carmen, decreased breath sounds, symmetrical, unlabored. ABSENT: rales, rhonchi, wheezes Cardiovascular exam: PRESENT: RRR. ABSENT: diastolic murmur, rubs, systolic murmur Pulses: PRESENT: normal dorsalis pedis pul Vascular exam: PRESENT: normal capillary refill GI/Abdominal exam: PRESENT: normal bowel sounds, soft. ABSENT: distended, guarding, mass, organolmegaly, rebound, tenderness Rectal exam: PRESENT: deferred Extremities exam: PRESENT: full ROM. ABSENT: calf tenderness, clubbing, pedal edema Neurological exam: PRESENT: alert, awake, oriented to person, oriented to place , oriented to time, oriented to situation, CN II-XII grossly intact. ABSENT: motor sensory deficit Psychiatric exam: PRESENT: appropriate affect, normal mood. ABSENT: homicidal ideation, suicidal ideation Skin exam: PRESENT: dry - Right axillary wound with no drainage, no fluctuance or surrounding erythema, warm, other Results Laboratory Results: 03/21/17 05:37 03/21/17 05:37 03/21/17 03/21/17 05:37 05:37 WBC 24.5 H RBC 7.64 H Hgb 15.6 H Hct 50.0 H MCV 65 L MCH 20.4 L MCHC 31.2 L RDW 21.9 H Plt Count 307 Seg Neutrophils % Not Reportable Lymphocytes % Not Reportable Monocytes % Not Reportable Eosinophils % Not Reportable Basophils % Not Reportable Absolute Neutrophils Not Reportable Absolute Lymphocytes Not Reportable Absolute Monocytes Not Reportable Absolute Eosinophils Not Reportable Absolute Basophils Not Reportable Sodium 138.6 Potassium 4.8 Chloride 103 Carbon Dioxide 24 Anion Gap 12 BUN 13 Creatinine 0.92 Est GFR ( Amer) > 60 Est GFR (Non-Af Amer) 59 L Glucose 233 H Calcium 9.4 Impressions: Cervical Spine CT 03/14/17 03:19 IMPRESSION: No acute fracture in the cervical spine. Degenerative changes. Chest X-Ray 03/14/17 03:19 IMPRESSION: Mild left basilar atelectasis. Head CT 03/14/17 03:19 IMPRESSION: No acute intracranial hemorrhage or depressed calvarial fracture. 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 Assessment & Plan - Diagnosis (1) Cutaneous abscess of right axilla Is this a current diagnosis for this admission?: YesPlan: Improving, wound cultures growing MRSA. Blood cultures are negative She has had 7 days of IV vancomycin for persistent leucytosis. (2) IMANI (acute kidney injury) Is this a current diagnosis for this admission?: YesPlan: Resolved with IV hydration, secondary to prerenal cause from infection. (3) Leukocytosis Qualifiers: Leukocytosis type: unspecified Qualified Code(s): D72.829 - Elevated white blood cell count, unspecified Plan: Patient is on Vancomycin (4) Sepsis Qualifiers: Sepsis type: sepsis due to unspecified organism Qualified Code(s): A41.9 - Sepsis, unspecified organism Is this a current diagnosis for this admission?: NoPlan: Resolved with IV antibiotics and hydration (5) Chronic diastolic CHF (congestive heart failure) Is this a current diagnosis for this admission?: NoPlan: Patient is euvolemic (6) Bandemia Is this a current diagnosis for this admission?: YesPlan: Resolving with antibiotics
[2017-03-21] MEDS: FLUCONAZOLE 100 MG TABLET PO SCH (17:12)
[2017-03-21] MEDS: MICONAZOLE NITRATE 2% AEROSOL POWDER 130 GM TP SCH (17:22)
[2017-03-21] MEDS: ATORVASTATIN CALCIUM 80 MG TABLET PO SCH (21:27)
[2017-03-22] MEDS: LANSOPRAZOLE 30 MG TAB.RAP.DR PO SCH (05:10)
[2017-03-22] MEDS: INSULIN LISPRO 100 UNIT/ML 3 ML VIAL SUBCUT PRN ×4 (07:59→22:11)
[2017-03-22] MEDS: GLIMEPIRIDE 1 MG TABLET PO SCH ×2 (07:59→18:10)
[2017-03-22] MEDS: ONDANSETRON 4 MG TAB.RAPDIS PO PRN (08:19)
[2017-03-22] MEDS: CITALOPRAM HYDROBROMIDE 20 MG TABLET PO SCH (10:51)
[2017-03-22] MEDS: CLOPIDOGREL BISULFATE 75 MG TABLET PO SCH (10:51)
[2017-03-22] MEDS: METOPROLOL TARTRATE 100 MG TABLET PO SCH ×2 (10:51→21:04)
[2017-03-22] MEDS: LOSARTAN POTASSIUM 50 MG TABLET PO SCH (10:51)
[2017-03-22] MEDS: SITAGLIPTIN PHOSPHATE 50 MG TABLET PO SCH (10:52)
[2017-03-22] MEDS: OXYCODONE-ACETAMINOPHEN 5-325 MG TABLET PO PRN ×2 (10:52→21:05)
[2017-03-22] MEDS: ASPIRIN 81 MG TABLET, ENT COATED PO SCH (10:52)
[2017-03-22] MEDS: ISOSORBIDE MONONITRATE 30 MG TAB.ER.24H PO SCH (10:52)
[2017-03-22] MEDS: DOXYCYCLINE HYCLATE 100 MG TABLET PO SCH ×2 (10:53→21:05)
[2017-03-22] MEDS: DOCUSATE SODIUM 100 MG CAPSULE PO SCH ×2 (10:53→18:10)
[2017-03-22] MEDS: MICONAZOLE NITRATE 2% AEROSOL POWDER 130 GM TP SCH ×2 (10:57→18:15)
--- NOTE | 2017-03-22 17:14 | PROGRESS NOTE E ---
Progress Note NAME: ORACIO PEDROZA : 1935 AGE: 81Y DATE: 03/22/2017 ROOM: 332 SUBJECTIVE: The patient is currently lying in bed. The patient was seen earlier today on rounds. The patient denied any nausea, vomiting, diarrhea. No shortness of breath, dizziness or chest pain. The patient did note a headache which has been intermittent for the past week. The patient does attribute it to possible dietary changes. The patient was slated to have wound teaching with her daughter; however, the daughter refused to pick the patient up from the hospital, stating that after much thinking she felt that she needed to be placed in a facility. This was actually the original plan and the patient had stated that she wanted to go home as well as her daughter. However, with this recent change of events, the patient now has agreed to go to rehab as well; therefore, consulted Social Work to help with rehab placement. REVIEW OF SYSTEMS: The rest of the review of systems is negative. MEDICATIONS: Medications have been reviewed. OBJECTIVE: GENERAL: The patient is an 81-year-old female who is awake, alert. She is oriented to person, place, time, and situation. She is verbal, conversational, does not appear to be in any acute distress. VITAL SIGNS: As follows: Temperature is 98.4, pulse 82, respirations 20, blood pressure is 112/96, oxygen saturation is 93% on room air. SKIN: Warm and dry. No rash, not diaphoretic. HEENT: Pupils equal, round, reactive to light and accommodation. Conjunctivae pink. There is no JVP. CARDIOVASCULAR: Heart is regular. There is no murmur or rub. CHEST: Clear, symmetrical, unlabored. ABDOMEN: Soft, nontender, nondistended. BACK: No CVA tenderness or sacral edema. EXTREMITIES: No clubbing, cyanosis, edema. PSYCHIATRIC: Appropriate affect. DIAGNOSTICS: Lab values are as follows. Hematology obtained on 03/21/2017: WBCs are 5.45, hemoglobin is 15.6, hematocrit is 50,000 and platelet count is 307,000. IMPRESSION AND PLAN: 1. MRSA SUBCUTANEOUS ABSCESS OF THE RIGHT AXILLA. The patient did receive 7 days of IV vancomycin and has tolerated transition to p.o. coverage. Will continue to follow. 2. CHRONIC LEUKOCYTOSIS. This has been followed by Hematology. It appears that the patient is now at her baseline. 3. ACUTE KIDNEY INJURY. This resolved with hydration, most likely due to prerenal azotemia. 4. SEPSIS. This resolved with IV antibiotics and hydration. 5. CHRONIC DIASTOLIC DYSFUNCTION. The patient is euvolemic at this point. 6. GENERAL DEBILITY AND FREQUENT FALLS. Will proceed with placement. 7. DIABETES MELLITUS, TYPE 2. Will continue the patient's home medications. 8. HYPERTENSION. Will resume home medications. 9. CORONARY ARTERY DISEASE. Will continue the patient's home medication. 10. HYPERLIPIDEMIA. Will continue statin. DISPOSITION: THE PATIENT IS A DO NOT RESUSCITATE/DO NOT INTUBATE. The patient can be discharged as soon as a rehab bed is made available. The patient can be downgraded to a medical unit. Time spent on this followup, including assessment/plan, physical examination, and resource alignment, is 25 minutes. DICTATING PHYSICIAN: SARAI HARRELL [id number] PHY#: [id number] ID: [id number] JOB#: [id number] ACCT: [id number] cc: >
[2017-03-22] MEDS: FLUCONAZOLE 100 MG TABLET PO SCH (18:10)
[2017-03-22] MEDS: ATORVASTATIN CALCIUM 80 MG TABLET PO SCH (21:05)
[2017-03-23] MEDS: LANSOPRAZOLE 30 MG TAB.RAP.DR PO SCH (05:14)
[2017-03-23] MEDS: ASPIRIN 81 MG TABLET, ENT COATED PO SCH (09:03)
[2017-03-23] MEDS: LOSARTAN POTASSIUM 50 MG TABLET PO SCH (09:04)
[2017-03-23] MEDS: DOCUSATE SODIUM 100 MG CAPSULE PO SCH ×2 (09:04→18:15)
[2017-03-23] MEDS: CLOPIDOGREL BISULFATE 75 MG TABLET PO SCH (09:04)
[2017-03-23] MEDS: METOPROLOL TARTRATE 100 MG TABLET PO SCH ×2 (09:04→21:24)
[2017-03-23] MEDS: GLIMEPIRIDE 1 MG TABLET PO SCH ×2 (09:05→16:28)
[2017-03-23] MEDS: CITALOPRAM HYDROBROMIDE 20 MG TABLET PO SCH (09:05)
[2017-03-23] MEDS: SITAGLIPTIN PHOSPHATE 50 MG TABLET PO SCH (09:06)
[2017-03-23] MEDS: ISOSORBIDE MONONITRATE 30 MG TAB.ER.24H PO SCH (09:06)
[2017-03-23] MEDS: MICONAZOLE NITRATE 2% AEROSOL POWDER 130 GM TP SCH ×2 (09:06→18:19)
[2017-03-23] MEDS: DOXYCYCLINE HYCLATE 100 MG TABLET PO SCH ×2 (09:06→21:24)
[2017-03-23] MEDS: ONDANSETRON 4 MG TAB.RAPDIS PO PRN (10:26)
--- NOTE | 2017-03-23 16:18 | PROGRESS NOTE E ---
Progress Note NAME: ORACIO PERDOZA : 1935 AGE: 81Y DATE: 03/23/2017 ROOM: 332 SUBJECTIVE: The patient is currently lying in bed. The patient appears to be at her baseline. The patient actually was discharged yesterday; however, after much discussion with her daughter, the patient has agreed to go to rehab. Referrals have been sent and currently awaiting information regarding this. The patient had no evidence overnight and does not voice any other concerns at this time. REVIEW OF SYSTEMS: The rest of the review of systems is negative. MEDICATIONS: Medications have been reviewed. OBJECTIVE: GENERAL: The patient is an 81-year-old female who is awake, alert and oriented to person, place, time, and situation. She is verbal, conversational, does not appear to be in any acute distress. VITAL SIGNS: As follows: Temperature is 98.3, pulse 95, respirations 16, blood pressure is 140/76, oxygen saturation 95% on room air. SKIN: Warm and dry. No rash. Not diaphoretic. HEENT: Pupils equal, round, reactive to light and accommodation. Conjunctiva is pink. NECK: No JVP. CARDIOVASCULAR SYSTEM: Heart is regular. There is no murmur or rub. CHEST: Clear, symmetrical, unlabored. ABDOMEN: Soft, nontender, nondistended. BACK: No CVA tenderness, sacral edema. EXTREMITIES: No clubbing, cyanosis, edema. PSYCHIATRIC: Appropriate affect. Pleasant mood. DIAGNOSTICS: Lab values are as follows: Hematology obtained on 03/21/2017: WBCs are 5.4, hemoglobin is 15.6, hematocrit is 50, and platelet count is 307,000. IMPRESSION AND PLAN: 1. MRSA, SUBCUTANEOUS ABSCESS OF THE RIGHT AXILLA. The patient received 7 days of IV vancomycin and has tolerated her transition to doxycycline. Will continue to follow. 2. CHRONIC LEUKOCYTOSIS. The patient has been followed outpatient by Hematology, and it appeared that patient is at her baseline. 3. ACUTE KIDNEY INJURY. This resolved with hydration, most likely just prerenal azotemia. 4. SEPSIS. This resolved with IV antibiotics, hydration. 5. CHRONIC DIASTOLIC DYSFUNCTION. The patient is euvolemic at this point. 6. GENERAL DEBILITY AND FREQUENT FALLS. The patient is currently awaiting placement. 7. DIABETES MELLITUS TYPE 2. Will continue the patient's home medication. 8. HYPERTENSION. Will resume the patient's medication. 9. CORONARY ARTERY DISEASE. Will continue home medication. 10. HYPERLIPIDEMIA. Will continue statin. DISPOSITION: The patient is a DO NOT RESUSCITATE/DO NOT INTUBATE. Pending patient's symptomatology and diagnostic findings, the patient can go to rehab facility as soon as a bed is available. The patient has been downgraded to a medical unit. Time spent on this followup including assessment, plan, physical examination, patient education, and resource alignment is 15 minutes. DICTATING PHYSICIAN: SARAI HARRELL NP [id number] PHY#: [id number] ID: [id number] JOB#: [id number] ACCT: [id number] cc:SARAI HARRELL NP >
[2017-03-23] MEDS: OXYCODONE-ACETAMINOPHEN 5-325 MG TABLET PO PRN (16:25)
[2017-03-23] MEDS: FLUCONAZOLE 100 MG TABLET PO SCH (16:28)
--- NOTE | 2017-03-23 17:45 | TRANSFER SUMMARY E ---
Transfer Summary NAME: ORACIO PEDROZA : 1935 AGE: 81Y ADMITTED: 03/14/2017 TRANSFERRED: 03/24/2017 CODE STATUS: DO NOT RESUSCITATE/DO NOT INTUBATE WITH PORTABLE DNR. PRIMARY CARE PROVIDER: Dr. Kamara. DISCHARGE DIAGNOSES: Include: 1. MRSA subcutaneous abscess of the right axilla. 2. Chronic leukocytosis which is followed by Hematology. 3. Acute kidney injury. 4. Sepsis secondary to the above, present on admission and resolved. 5. Chronic diastolic dysfunction. 6. General debility. 7. Frequent falls. 8. Diabetes mellitus type 2. 9. Hypertension. 10. Coronary artery disease. 11. Hyperlipidemia. 12. Cerebrovascular disease. DISCHARGE MEDICATIONS: Include: 1. Zofran ODT 4 mg sublingually q.4 h. p.r.n. 2. Doxycycline 100 mg p.o. q.12 h. x8 doses with 0 refills. 3. Trazodone 50 mg p.o. at hour of sleep p.r.n. 4. Januvia 100 mg p.o. daily. 5. Crestor 40 mg p.o. daily. 6. Protonix 40 mg p.o. daily. 7. Lopressor 100 mg p.o. q.12 h. 8. Cozaar 50 mg p.o. daily. 9. Isosorbide 30 mg p.o. daily. 10. Amaryl 1 mg p.o. b.i.d. 11. Neurontin 300 mg p.o. q.12 h. 12. Colace 100 mg p.o. b.i.d. 13. Plavix 75 mg p.o. daily. 14. BuSpar 10 mg p.o. q.12 h. 15. Aspirin 81 mg p.o. daily. DIET: Heart healthy, diabetic, as tolerated. ACTIVITY: As per rehab standards. DIAGNOSTICS: Lab values are as follows: Hematology obtained on 03/21/2017; WBCs are 24.5, baseline appears to be in the 25 range, hemoglobin is 15.6, hematocrit is 50.0, platelet count is 307,000. Chemistry obtained on 03/21/2017: Sodium is 138, potassium 4.8, chloride is 103, carbon dioxide 24, BUN 13, creatinine is 0.92, glucose 233, calcium is 9.4, magnesium is 2.2, bilirubin is 1.6, AST 22, ALT is 16, alkaline phosphatase 252, CK 35, CK-MB is 0.50, troponin 0.018, total protein 8.1, albumin 4.1. Urinalysis obtained on 03/14/2017: Color yellow, appearance cloudy, pH is 5.0, specific gravity is 1.009, protein 30, glucose 150, ketones negative, occult blood moderate, nitrite negative, bilirubin negative, urobilinogen is negative, leukocyte esterase is large, WBCs 27, RBCs 3, bacteria trace, WBCs many, epithelial squamous cells 1, mucus many, ascorbic acid is negative. Toxicology obtained on 03/19/2017: Vancomycin trough is 10.4. Microbiology: Urine culture obtained reveals lactobacillus and vaginal shellie. Blood cultures obtained on 03/14/2017 reveal no growth. Arm abscess culture obtained on 03/14/2017 reveals MRSA. Blood cultures obtained on 03/19/2017 reveal no growth. Cervical spine CT obtained on 03/14/2017 reveals no acute fractures of the cervical spine, degenerative changes are noted. Chest x-ray obtained on 03/14/2017 reveals mild left basilar atelectasis. 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 EKG obtained on 03/14/2017 reveals sinus tachycardia with an AV block. HISTORY OF PRESENT ILLNESS: The patient is an 81-year-old female with a past medical history of coronary artery disease and diabetes. The patient presented to the emergency department with a chief complaint of weakness and falls. The patient presented to the emergency department via EMS after sustaining a fall. According to patient, she was walking back from the bathroom and got lightheaded and fell backwards and struck her head on the front of the bed. The patient denied any loss of consciousness. No vomiting. The patient stated that she felt some neck pain but denied any numbness, weakness. No incontinence, chest pain, abdominal pain. The patient stated that she did feel quite short of breath prior to the event. The patient had had a number of falls over the past couple of weeks prior to presentation after she had been started on Oxy-Contin for her chronic lower back pain. Upon presentation to the emergency department, the patient was found to have a white count of 31,000. It appears that her baseline white count is around 20,000 to 25,000 with chronic leukocytosis. This is followed outpatient by Hematology, Dr. Mercer. However, the patient's creatinine was found to be 1.64. The patient did not have any history of significant elevated creatinines or documented CKD. The patient admitted to limited oral intake and the stated decline in her function. CT of the head was unremarkable. However, given the patient's symptoms, she was referred to the hospitalist for admission and management. HOSPITAL COURSE: The patient was admitted to [facility]. The patient was gently hydrated, and the patient's creatinine returned to baseline. The patient was initially suspected to have a UTI and was treated for such; however, it appeared that that was unremarkable. However, the patient did have a significant abscess under her axilla that was consistent with MRSA. The patient did receive 7 days of IV vancomycin and was transitioned to doxycycline without issue. The patient overall had improvement of her symptoms. However, given her general decline, the patient and the family have elected to proceed with a rehab environment. The patient does have some issues with chronic nausea which is controlled with Zofran. The patient has had numerous ultrasounds which had been unremarkable. The patient's axilla wound should be changed with wet-to-dry dressings on a daily basis. I do appreciate the surgicalist's input with this. PHYSICAL EXAMINATION: GENERAL: On examination, the patient is a frail, chronically ill-appearing, 81-year-old female who is awake, alert and oriented to person, place, time, and situation. She is verbal, conversational, does not appear to be in any acute distress. VITAL SIGNS: As follows: Temperature is 98.3, pulse 75, respirations are 18, blood pressure is 137/76, oxygen saturation is 96% on room air. SKIN: Warm and dry. No rash. Not diaphoretic. HEENT: Pupils equal, round, reactive to light and accommodation. Conjunctivae pink. NECK: No JVP. CARDIOVASCULAR SYSTEM: Heart is regular. There is no murmur or rub. CHEST: Clear, symmetrical, unlabored. ABDOMEN: Soft, nontender, nondistended. BACK: No CVA tenderness, sacral edema. EXTREMITIES: No clubbing, cyanosis, or edema. PSYCHIATRIC: Appropriate affect. Pleasant mood. DISCHARGE PLANNING: The patient is advised to follow up with a primary care provider within 1 to 2 weeks for hospital followup. Time spent on this transfer summary including assessment, plan, physical examination, patient education, review of records, and resource alignment is 35 minutes. DICTATING PHYSICIAN: SARAI HARRELL NP [id number] PHY#: [id number] ID: [id number] JOB#: [id number] ACCT: [id number] cc:SARAI HARRELL NP > MTDD
[2017-03-23] MEDS: INSULIN LISPRO 100 UNIT/ML 3 ML VIAL SUBCUT PRN (18:14)
[2017-03-23] MEDS: DIPHENHYDRAMINE HCL 25 MG CAPSULE PO PRN (19:47)
[2017-03-23] MEDS: ATORVASTATIN CALCIUM 80 MG TABLET PO SCH (21:24)
[2017-03-24] MEDS: LANSOPRAZOLE 30 MG TAB.RAP.DR PO SCH (05:51)
[2017-03-24] MEDS: GLIMEPIRIDE 1 MG TABLET PO SCH (07:55)
[2017-03-24] MEDS: ASPIRIN 81 MG TABLET, ENT COATED PO SCH (10:41)
[2017-03-24] MEDS: METOPROLOL TARTRATE 100 MG TABLET PO SCH (10:42)
[2017-03-24] MEDS: ISOSORBIDE MONONITRATE 30 MG TAB.ER.24H PO SCH (10:42)
[2017-03-24] MEDS: LOSARTAN POTASSIUM 50 MG TABLET PO SCH (10:42)
[2017-03-24] MEDS: SITAGLIPTIN PHOSPHATE 50 MG TABLET PO SCH (10:42)
[2017-03-24] MEDS: CITALOPRAM HYDROBROMIDE 20 MG TABLET PO SCH (10:42)
[2017-03-24] MEDS: CLOPIDOGREL BISULFATE 75 MG TABLET PO SCH (10:42)
[2017-03-24] MEDS: DOCUSATE SODIUM 100 MG CAPSULE PO SCH (10:43)
[2017-03-24] MEDS: DOXYCYCLINE HYCLATE 100 MG TABLET PO SCH (10:43)
[2017-03-24] MEDS: MICONAZOLE NITRATE 2% AEROSOL POWDER 130 GM TP SCH (10:45)
[2017-03-24 12:22] VITALS: BP 117/40
[2017-03-24] MEDS: INSULIN LISPRO 100 UNIT/ML 3 ML VIAL SUBCUT PRN (13:04)
== END 2017-03-24 15:59 | DRG 854 ==
LOC: ER 03:02 → EH 07:47 → UNDOADMIN 08:31 → 3S 12:07
PROC: 0JB60ZZ Excision of Chest Subcutaneous Tissue and Fascia, Open Approach (ICD-10-PCS; principal; 2017-03-14)
DX: A41.9 Sepsis, unspecified organism (principal); L02.411 Cutaneous abscess of right axilla; B95.62 Methicillin resistant Staphylococcus aureus infection as the cause of diseases classified elsewhere; N17.9 Acute kidney failure, unspecified; I50.32 Chronic diastolic (congestive) heart failure; D72.829 Elevated white blood cell count, unspecified; I11.0 Hypertensive heart disease with heart failure; E11.9 Type 2 diabetes mellitus without complications; I25.10 Atherosclerotic heart disease of native coronary artery without angina pectoris; E78.5 Hyperlipidemia, unspecified; I67.9 Cerebrovascular disease, unspecified; W19.XXXA Unspecified fall, initial encounter; Y93.9 Activity, unspecified; Y92.013 Bedroom of single-family (private) house as the place of occurrence of the external cause; Y99.9 Unspecified external cause status; M54.2 Cervicalgia; K21.9 Gastro-esophageal reflux disease without esophagitis; F32.9 Major depressive disorder, single episode, unspecified; Z79.82 Long term (current) use of aspirin; Z79.899 Other long term (current) drug therapy; Z79.02 Long term (current) use of antithrombotics/antiplatelets; Z86.711 Personal history of pulmonary embolism; Z86.73 Personal history of transient ischemic attack (TIA), and cerebral infarction without residual deficits; Z90.710 Acquired absence of both cervix and uterus
CPT/HCPCS: 36415; 51701; 70450; 71010; 72125; 80048; 80053; 80202; 81001; 82550; 82553; 82565; 82962; 83735; 84484; 85025; 85027; 87040; 87070; 87075; 87077; 87086; 87186; 87205; 93005; 93010; 96365; 99285; G8978-GP; G8979-GP; J0290; J0696; J1815; J3370; J3490; J7030; J7060; S0119

== ENCOUNTER 2017-05-12 13:40 | Inpatient (IN) | payer MEDICARE, OTHER ==
[2017-05-12] MEDS ORDERED: TETANUS/DIPHTHERIA TOX-ADULT 0.5 ML SYR (>=7YO) IM ONE ×2 (14:30→17:45)
[2017-05-12] MEDS ORDERED: NORMAL SALINE 1000 ML 1,000 ML IV ONE (14:30)
--- NOTE | 2017-05-12 14:30 | ER Document Report ---
ED Dizziness/Weakness - General Stated Complaint: ALTERED MENTAL STATUS Time Seen by Provider: 05/12/17 14:04 Notes: 82-year-old female with history of pulmonary emboli, diabetes, CVA currently on Xarelto and Plavix presents after a fall that occurred yesterday about 10 PM. She was sent in today because she was noticed to be somewhat hypotensive at home. She complains of weakness and dizziness. Her fall last night though she states did not involve that but her walker got away from her and caused her to fall. She had pain in her neck and lower back region after the fall and that has continued. The dizziness and weakness occurred today. She denies any other injury but notes she has a scratch on her legs from her new cats. Specifically denies headache, focal weakness numbness or tingling otherwise. Denies speech or swallowing difficulty. Denies nausea vomiting diarrhea dysuria or hematuria but has been recently treated for a urinary tract infection. No alleviating or exacerbating symptoms otherwise TRAVEL OUTSIDE OF THE [place] IN LAST 30 DAYS: No - Related Data Allergies/Adverse Reactions: No Known Allergies Allergy (Unverified 01/21/17 13:58) Past Medical History - Social History Smoking Status: Never Smoker Family History: CAD, COPD, DM, Hyperlipidemia, Hypertension, Malignancy - Father with lung cancer, Other - Past Medical History Cardiac Medical History: Reports: Hx Congestive Heart Failure - Diastolic, Hx Heart Attack - EKG suggests probable prior infarction, Hx Hypercholesterolemia, Hx Hypertension, Hx Pulmonary Embolism - Distant history Pulmonary Medical History: Denies: Hx Asthma, Hx COPD, Hx Sleep Apnea Neurological Medical History: Denies: Hx Seizures Endocrine Medical History: Reports: Hx Diabetes Mellitus Type 1, Hx Diabetes Mellitus Type 2. Denies: Hx Hyperthyroidism, Hx Hypothyroidism Renal/ Medical History: Denies: Hx End Stage Renal Disease, Hx Peritoneal Dialysis Malignancy Medical History: Reports: Hx Skin Cancer - Excised from her nose. GI Medical History: Reports: Hx Gastroesophageal Reflux Disease. Denies: Hx Cirrhosis, Hx Hepatitis Musculoskeltal Medical History: Reports Hx Arthritis, Reports Hx Musculoskeletal Deformity Skin Medical History: Denies Hx Eczema, Denies Hx Psoriasis Psychiatric Medical History: Reports: Hx Anxiety, Hx Depression Infectious Medical History: Reports: Hx MRSA - Quite distant history. Denies: Hx C-Diff, Hx Hepatitis Past Surgical History: Reports: Hx Abdominal Surgery, Hx Appendectomy, Hx Hysterectomy, Hx Tonsillectomy, Other - Cardiac loop recorder, bilateral cataract surgery - Immunizations Hx Diphtheria, Pertussis, Tetanus Vaccination: No Hx Pneumococcal Vaccination: 04/29/13 Review of Systems - Review of Systems -: Yes All other systems reviewed and negative Physical Exam - Vital signs Vitals: Resp BP Pulse Ox 15 117/67 95 05/12/17 13:54 05/12/17 13:54 05/12/17 13:54 Interpretation: Hypotensive - Notes Notes: GENERAL: VS as per nursing doc. Well-appearing, well-nourished and in no acute distress. Morbidly obese HEAD: Atraumatic, normocephalic. EYES: Pupils equal round and reactive to light, extraocular movements intact, sclera anicteric, mild right conjunctival injection without discharge, mild right ptosis ENT: Nares patent, oropharynx clear without exudates. Moist mucous membranes. NECK: Mild generalized neck tenderness to palpation LUNGS: Breath sounds clear to auscultation bilaterally and equal. No wheezes rales or rhonchi. HEART: Normal S1S2. Regular rate and rhythm without murmurs. Equal peripheral pulses. ABDOMEN: Soft, obese, mild left upper quadrant tenderness to palpation. No guarding or rebound. EXTREMITIES: Normal range of motion without pain elicited.. No calf tenderness. Negative Homans. No edema. NEUROLOGICAL: GCS 15, Cranial nerves II-XII intact. Normal visual wong. Normal speech without aphasia. No pronator drift. 5/5 RUE strength, 5/5 RLE strength, 5/5 LUE strength, 5/5 LLE strength. No cerebellar abnormalities including normal finger-nose testing. Negative Babinski, 2+= DTR refelexes. PSYCH: Normal mood, normal affect. SKIN: Warm, Dry, no cyanosis, Cap refill < 2 sec. linear superficial anterior thigh laceration. Prior right axillary incision without evidence of active infection. Course - Re-evaluation Re-evalutation: 05/12/17 19:45 Patient responded well to the fluid bolus. Hypotension improved and her weakness improved. BiPAP had to be placed with the elevated PCO2 and decreased pH. Blood pressure remained stable. Leukocytosis again noted which apparently is going to be evaluated as an outpatient. - Vital Signs Vital signs: Temp Pulse Resp BP Pulse Ox 14 132/63 H 98 05/12/17 18:01 05/12/17 18:01 05/12/17 18:01 - Laboratory Result Diagrams: 05/12/17 16:42 05/12/17 14:02 Laboratory results interpreted by me: 05/12/17 05/12/17 05/12/17 14:02 14:02 14:02 WBC Hct Manual Hct Seg Neuts % (Manual) Lymphocytes % (Manual) Monocytes % (Manual) Abs Neuts (Manual) PT 26.5 H VBG pH 7.29 L VBG pCO2 67.0 H* BUN 25 H Creatinine 1.50 H Est GFR ( Amer) 40 L Est GFR (Non-Af Amer) 33 L Direct Bilirubin 0.5 H Alkaline Phosphatase 199 H Urine Protein Urine Blood Ur Leukocyte Esterase 05/12/17 05/12/17 16:42 17:55 WBC 32.0 H* Hct 54.0 H Manual Hct 54.0 H Seg Neuts % (Manual) 89 H Lymphocytes % (Manual) 4 L Monocytes % (Manual) 2 L Abs Neuts (Manual) 29.4 H PT VBG pH VBG pCO2 BUN Creatinine Est GFR ( Amer) Est GFR (Non-Af Amer) Direct Bilirubin Alkaline Phosphatase Urine Protein 30 H Urine Blood SMALL H Ur Leukocyte Esterase LARGE H - EKG Interpretation by Ms EKG shows normal: Sinus rhythm - Normal sinus rhythm. Slight J-point elevation takeoff. Probable old septal infarct. QRS abnormal duration. Borderline prolonged QT interval which does not appear significant change compared to 2016 Discharge - Discharge Clinical Impression: Acute respiratory failure Hypotension Qualifiers: Hypotension type: hypotension due to drug Qualified Code(s): I95.2 - Hypotension due to drugs Leukocytosis Qualifiers: Leukocytosis type: unspecified Qualified Code(s): D72.829 - Elevated white blood cell count, unspecified Condition: Fair Disposition: ADMITTED INPATIENT Admitting Provider: [place] [facility] Admitted: Telemetry Referrals: JAVED GUERRIER MD [Primary Care Provider] - Follow up as needed
[2017-05-12 14:35] LABS: VENOUS BLOOD BASE EXCESS 3.1 mmol/L; VENOUS BLOOD HCO3 31.8 mmol/L (20-32); VENOUS BLOOD PH 7.29 (7.30-7.42)
[2017-05-12 14:41] LABS: PROTHROMBIN TIME 26.5 SEC (11.4-15.4)
[2017-05-12 14:57] LABS: ALANINE AMINOTRANSFERASE 19 U/L (9-52); ALBUMIN 4.2 g/dL (3.5-5.0); ALKALINE PHOSPHATASE 199 U/L (38-126); ANION GAP 12 (5-19); ASPARTATE AMINO TRANSFERASE 21 U/L (14-36); BILIRUBIN,DIRECT 0.5 mg/dL (0.0-0.4); BILIRUBIN,TOTAL 1.2 mg/dL (0.2-1.3); BLOOD UREA NITROGEN 25 mg/dL (7-20); CALCIUM 9.6 mg/dL (8.4-10.2); CARBON DIOXIDE 29 mmol/L (22-30); CHLORIDE 103 mmol/L (98-107); GLUCOSE 97 mg/dL (75-110); POTASSIUM 4.2 mmol/L (3.6-5.0); TOTAL PROTEIN 7.9 g/dL (6.3-8.2)
--- NOTE | 2017-05-12 15:06 | RADIOLOGY REPORT (SQ) ---
EXAM DESCRIPTION: CHEST SINGLE VIEW COMPLETED DATE/TIME: 05/12/2017 2:35 pm REASON FOR STUDY: bed 17 sepsis protocol COMPARISON: Chest films 12/19/2016, 03/14/2017 CT angio chest 02/15/2017 EXAM PARAMETERS: NUMBER OF VIEWS: One view. TECHNIQUE: Single frontal radiographic view of the chest acquired. RADIATION DOSE: NA LIMITATIONS: Obese patient, AP portable technique FINDINGS: LUNGS AND PLEURA: No opacities, masses or pneumothorax. No pleural effusion. MEDIASTINUM AND HILAR STRUCTURES: No masses. Contour normal. HEART AND VASCULAR STRUCTURES: Heart normal in size. Normal vasculature. BONES: No acute findings. HARDWARE: None in the chest. OTHER: No other significant finding. IMPRESSION: NO ACUTE RADIOGRAPHIC FINDING IN THE CHEST. TECHNICAL DOCUMENTATION: JOB ID: [id number]
--- NOTE | 2017-05-12 16:07 | RADIOLOGY REPORT (SQ) ---
EXAM DESCRIPTION: CT HEAD WITHOUT COMPLETED DATE/TIME: 05/12/2017 3:54 pm REASON FOR STUDY: Trauma with pain COMPARISON: [address] brain exams since 08/13/2012, most recently 03/14/2017 TECHNIQUE: Axial images acquired through the brain without intravenous contrast. Images reviewed wi th bone, brain and subdural windows. Images stored on PACS. All CT scanners at this facility use dose modulation, iterative reconstruction, and/or weight based d osing when appropriate to reduce radiation dose to as low as reasonably achievable (ALARA). [facility]: Dose Right [facility]: CareDose [facility]: Dose Right [facility]: Teradose 4D [facility]: [employer] RADIATION DOSE: Up-to-date CT equipment and radiation dose reduction techniques were employed. CTDIv ol: 64.6 mGy. DLP: 1163 mGy-cm. mGy. LIMITATIONS: None. FINDINGS: VENTRICLES: Normal size and contour. CEREBRUM: Multiple old infarcts are present, involving the right posterior frontal cortex and subcort ical white matter, bifrontal and biparietal deep periventricular white matter, right and left thalamu s. Stable enlarged perivascular space left basal ganglia. No CT evidence of acute large territory ischemic change, acute intracranial hemorrhage, mass effect, or midline shift. CEREBELLUM: No masses. No hemorrhage. No alteration of density. No evidence for acute infarction. EXTRAAXIAL SPACES: No fluid collections. No masses. ORBITS AND GLOBE: No intra- or extraconal masses. Normal contour of globe without masses. CALVARIUM: No fracture. PARANASAL SINUSES: No fluid or mucosal thickening. SOFT TISSUES: No mass or hematoma. OTHER: No other significant finding. IMPRESSION: Multiple old infarcts. No acute findings. COMMENT: Quality ID # [id number]: Final reports with documentation of one or more dose reduction techniques (e.g., Automated exposure control, adjustment of the mA and/or kV according to patient size, use of iterative reconstruction technique) TECHNICAL DOCUMENTATION: JOB ID: [id number] [employer]- All Rights Reserved
--- NOTE | 2017-05-12 16:11 | RADIOLOGY REPORT (SQ) ---
EXAM DESCRIPTION: CT CERVICAL SPINE WITHOUT COMPLETED DATE/TIME: 05/12/2017 3:54 pm REASON FOR STUDY: Trauma with pain COMPARISON: CT cervical spine 03/14/2017, 02/15/2017, 01/26/2017 TECHNIQUE: Axial images acquired through the cervical spine without intravenous contrast. Images re viewed with lung, soft tissue and bone windows. Reconstructed coronal and sagittal MPR images review ed. Images stored on PACS. All CT scanners at this facility use dose modulation, iterative reconstruction, and/or weight based d osing when appropriate to reduce radiation dose to as low as reasonably achievable (ALARA). [facility]: Dose Right [facility]: CareDose [facility]: Dose Right [facility]: Teradose 4D [facility]: [employer] RADIATION DOSE: Up-to-date CT equipment and radiation dose reduction techniques were employed. CTDIv ol: 25.0 mGy. DLP: 495 mGy-cm. mGy. LIMITATIONS: None. FINDINGS: ALIGNMENT: Anatomic. MINERALIZATION: Normal for age VERTEBRAL BODIES: No fractures or dislocation. DISCS: At C4-5, borderline central canal narrowing results from broad diffuse posterior disc bulging. No significant foraminal narrowing. At C5-6, moderate central canal stenosis results from broad diffuse posterior disc bulge and bony spu rring, best shown on axial image 44 and sagittal image 25. No significant right foraminal narrowing. Mild left foraminal narrowing. At C6-7, moderate central canal stenosis right greater than left results from broad diffuse disc bulg e and bony spurring best shown on axial image 50 and sagittal image 25. There is moderate bilateral foraminal narrowing. FACETS, LATERAL MASSES, POSTERIOR ELEMENTS: No fractures. No dislocation. No acute findings. HARDWARE: None in the spine. VISUALIZED RIBS: No fractures. LUNG APICES AND SOFT TISSUES: No significant or acute findings. OTHER: No other significant finding. IMPRESSION: No acute fracture or malalignment. Moderate central canal stenosis at C5-6 and C6-7 TECHNICAL DOCUMENTATION: JOB ID: [id number] Quality ID # [id number]: Final reports with documentation of one or more dose reduction techniques (e.g., Au tomated exposure control, adjustment of the mA and/or kV according to patient size, use of iterative reconstruction technique) 2010 [employer]- All Rights Reserved
--- NOTE | 2017-05-12 16:28 | RADIOLOGY REPORT (SQ) ---
EXAM DESCRIPTION: CT ABD/PELVIS WITH IV ONLY COMPLETED DATE/TIME: 05/12/2017 3:54 pm REASON FOR STUDY: Trauma with pain COMPARISON: CT abdomen pelvis 01/16/2017, 05/19/2016, 07/06/2015 TECHNIQUE: CT scan of the abdomen and pelvis performed using helical scanning technique with dynamic intravenous contrast injection. No oral contrast. Images reviewed with lung, soft tissue, and bone windows. Reconstructed coronal and sagittal MPR images reviewed. Delayed images for evaluation of the urinary system also acquired. All images stored on PACS. All CT scanners at this facility use dose modulation, iterative reconstruction, and/or weight based d osing when appropriate to reduce radiation dose to as low as reasonably achievable (ALARA). [facility]: Dose Right [facility]: CareDose [facility]: Dose Right [facility]: Teradose 4D [facility]: [employer] CONTRAST TYPE AND DOSE: contrast/concentration: Isovue 300.00 mg/ml; Total Contrast Delivered: 98.0 ml; Total Saline Delivered: 70.0 ml RENAL FUNCTION: Creatinine 1.5 RADIATION DOSE: Up-to-date CT equipment and radiation dose reduction techniques were employed. CTDIv ol: 20.5 - 21.0 mGy. DLP: 2242 mGy-cm.. LIMITATIONS: None. FINDINGS: LOWER CHEST: No significant findings. No nodules or infiltrates. Small hiatal hernia. LIVER: Normal size. No masses. No dilated ducts. SPLEEN: Stable splenomegaly, 16.5 cm in length PANCREAS: No masses. No significant calcifications. No adjacent inflammation or peripancreatic fluid collections. Pancreatic duct not dilated. GALLBLADDER: Tiny calcified stone in the gallbladder. No gallbladder wall thickening or pericholecys tic fluid. ADRENAL GLANDS: No significant masses or asymmetry. RIGHT KIDNEY AND URETER: No solid masses. 4 cm cyst right upper pole kidney. No significant calcifi cations. No hydronephrosis or hydroureter. LEFT KIDNEY AND URETER: No solid masses. 1 cm cyst left upper pole kidney. No significant calcifica tions. No hydronephrosis or hydroureter. AORTA AND VESSELS: No aneurysm. No dissection. Renal arteries, SMA, celiac without stenosis. RETROPERITONEUM: No retroperitoneal adenopathy, hemorrhage or masses. BOWEL AND PERITONEAL CAVITY: No masses or inflammatory changes. No free fluid or peritoneal masses. APPENDIX: Surgically absent PELVIS: No mass. No free fluid. Normal bladder. Post hysterectomy ABDOMINAL WALL: No masses. No hernias. BONES: No acute fracture. Degenerative changes lower lumbar spine. Old healed tail bone fracture. OTHER: No other significant finding. IMPRESSION: NO SIGNIFICANT OR ACUTE FINDING IN THE ABDOMEN OR PELVIS ON CT SCAN WITH IV CONTRAST. TECHNICAL DOCUMENTATION: JOB ID: [id number] Quality ID # [id number]: Final reports with documentation of one or more dose reduction techniques (e.g., Au tomated exposure control, adjustment of the mA and/or kV according to patient size, use of iterative reconstruction technique) 2010 [employer]- All Rights Reserved
[2017-05-12] MEDS ORDERED: MORPHINE SULFATE 10 MG/ML INJ IV ONE (17:16)
[2017-05-12 17:27] LABS: BAND NEUTROPHILS % (MANUAL) 3 % (3-5); BASOPHILS % (MANUAL) 0 % (0-2); EOSINOPHILS % (MANUAL) 0 % (0-6); LYMPHOCYTES % (MANUAL) 4 % (13-45); TOTAL CELLS COUNTED 100
[2017-05-12 17:41] LABS: PLATELET CLUMPS PRESENT; TOXIC VACUOLATION PRESENT
[2017-05-12 17:42] LABS: OVALOCYTES SLIGHT; POIKILOCYTOSIS SLIGHT; TARGET CELLS SLIGHT
[2017-05-12 17:47] LABS: ADD MANUAL MICRO HEMATOCRIT YES
[2017-05-12 18:04] LABS: MICRO HEMATOCRIT 2 AUTO 43.8 %
[2017-05-12] MEDS ORDERED: NORMAL SALINE 1000 ML 1,000 ML IV PRN (18:36)
[2017-05-12 18:37] LABS: APPEARANCE,URINE CLOUDY; BILIRUBIN,URINE NEGATIVE (NEGATIVE); GLUCOSE, URINE NEGATIVE (NEGATIVE); KETONES,URINE NEGATIVE (NEGATIVE); LEUKOCYTE ESTERASE,URINE LARGE (NEGATIVE); NITRITE,URINE NEGATIVE (NEGATIVE); PROTEIN,URINE 30 mg/dL (NEGATIVE); URINE SPECIFIC GRAVITY 1.034; UROBILINOGEN,URINE NEGATIVE mg/dL (<2.0)
[2017-05-12] MEDS ORDERED: ONDANSETRON HCL INJ/PF 4 MG/2 ML SDV IV PRN (18:40)
[2017-05-12] MEDS ORDERED: ACETAMINOPHEN 325 MG TABLET PO PRN (18:40)
[2017-05-12] MEDS ORDERED: GLUCAGON,HUMAN RECOMB 1 MG INJ IM PRN (18:44)
[2017-05-12] MEDS ORDERED: DEXTROSE 40% GEL 15 GM TUBE PO PRN ×2 (18:44)
[2017-05-12] MEDS ORDERED: DEXTROSE 50%-WATER 25 GM/50 ML DISP.SYRIN IV PRN ×2 (18:44)
--- NOTE | 2017-05-12 19:00 | PDOC H&P ---
History of Present Illness Admission Date/PCP: JAVED GUERRIER MD History of Present Illness: ORACIO PEDROZA is a 82 year old female who was referred to the ED by her home health nurse during a routine visit today. Her blood pressure reportedly was in the 90s. Despite this, she was asymptomatic. Patient fell yesterday evening around 10 PM. She did not injure herself, but presented with back, neck and head discomfort. In the ED, her initial blood pressure was in the 90s. She received a half a liter of normal saline with subsequent improvement. She did not report chest pain or shortness of breath. Despite this, a venous blood gas was obtained. Because of an elevated PCO2, she was placed on BiPAP. Her chest x-ray was normal. CT abdomen/pelvis showed no acute abnormalities. She has a chronically elevated white blood cell count and hematocrit. Her creatinine however, was elevated. It was 0.9 in February 2017. Today, it is 1.5. Past Medical History Cardiac Medical History: Reports: Congestive Heart Failure - Diastolic, Myocardial Infarction - EKG suggests probable prior infarction, Hyperlipidema, Hypertension, Pulmonary Embolism - Distant history Pulmonary Medical History: Denies: Asthma, Chronic Obstructive Pulmonary Disease (COPD), Sleep Apnea Neurological Medical History: Denies: Seizures Endocrine Medical History: Reports: Diabetes Mellitus Type 2, Obesity Denies: Hyperthyroidism, Hypothyroidism Renal/ Medical History: Denies: End Stage Renal Disease Malignancy Medical History: Reports: Skin Cancer - Excised from her nose. 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 Denies: Clostridium Difficile Past Surgical History Past Surgical History: Reports: Appendectomy, Hysterectomy, Tonsillectomy, Other - Cardiac loop recorder, bilateral cataract surgery Social History Information Source: Patient Lives with: Family Smoking Status: Never Smoker Frequency of Alcohol Use: None Hx Recreational Drug Use: No Drugs: None Hx Prescription Drug Abuse: No - Advance Directive Resuscitation Status: Do Not Resuscitate Family History Family History: CAD, COPD, DM, Hyperlipidemia, Hypertension, Malignancy - Father with lung cancer, Other Parental Family History Reviewed: Yes Children Family History Reviewed: Yes Sibling(s) Family History Reviewed.: Yes Medication/Allergy Home Medications: Aspirin [Aspirin EC] 81 mg PO DAILY 03/14/17 Buspirone HCl [Buspar 10 mg Tablet] 10 mg PO Q12 03/14/17 Clopidogrel Bisulfate [Plavix 75 mg Tablet] 75 mg PO DAILY 03/14/17 Docusate Sodium [Colace 100 mg Capsule] 100 mg PO BID 03/14/17 Gabapentin [Neurontin 300 mg Capsule] 300 mg PO Q12 03/14/17 Glimepiride [Amaryl 1 mg Tablet] 1 mg PO BIDBS 03/14/17 Isosorbide Mononitrate [Isosorbide Mononitrate ER] 30 mg PO DAILY 03/14/17 Losartan Potassium [Cozaar 50 mg Tablet] 50 mg PO DAILY 03/14/17 Metoprolol Tartrate [Lopressor 100 mg Tablet] 100 mg PO Q12 03/14/17 Oxycodone HCl/Acetaminophen [Percocet 5-325 mg Tablet] 1 tab PO Q4HP PRN Pantoprazole Sodium [Protonix] 40 mg PO DAILY 03/14/17 Rosuvastatin Calcium [Crestor] 40 mg PO DAILY 03/14/17 Sitagliptin Phosphate [Januvia] 100 mg PO DAILY 03/14/17 Trazodone HCl [Desyrel 50 mg Tablet] 50 mg PO HSP PRN 03/14/17 Doxycycline Hyclate [Vibramycin 100 mg Tablet] 100 mg PO Q12 #12 tablet Ondansetron [Zofran Odt 4 mg Tablet] 4 mg PO Q4HP PRN #10 tab.rapdis 03/22/17 Allergies/Adverse Reactions: No Known Allergies Allergy (Unverified 01/21/17 13:58) Review of Systems Constitutional: ABSENT: chills, fever(s), headache(s), weight gain, weight loss Cardiovascular: ABSENT: chest pain, dyspnea on exertion, edema, orthropnea, palpitations Respiratory: ABSENT: cough, dyspnea, hemoptysis Gastrointestinal: ABSENT: abdominal pain, constipation, diarrhea, hematemesis, hematochezia, nausea, vomiting Musculoskeletal: PRESENT: as per HPI. ABSENT: joint swelling Neurological: ABSENT: abnormal gait, abnormal speech, confusion, dizziness, focal weakness, syncope Physical Exam Vital Signs: Temp Pulse Resp BP Pulse Ox 14 132/63 H 98 05/12/17 18:01 09/14/17 18:01 05/12/17 18:01 General appearance: PRESENT: no acute distress, cooperative, morbidly obese Head exam: PRESENT: atraumatic, normocephalic Eye exam: PRESENT: conjunctiva pink, EOMI, PERRLA. ABSENT: scleral icterus Neck exam: ABSENT: carotid bruit, JVD, lymphadenopathy, thyromegaly Respiratory exam: PRESENT: clear to auscultation carmen. ABSENT: rales, rhonchi, wheezes Cardiovascular exam: PRESENT: RRR. ABSENT: diastolic murmur, rubs, systolic murmur GI/Abdominal exam: PRESENT: normal bowel sounds, soft. ABSENT: distended, guarding, mass, organolmegaly, rebound, tenderness Rectal exam: PRESENT: deferred Neurological exam: PRESENT: alert, awake, oriented to person, oriented to place , oriented to time, oriented to situation, CN II-XII grossly intact. ABSENT: motor sensory deficit Skin exam: PRESENT: dry, intact, warm. ABSENT: cyanosis, rash Results Laboratory Results: 05/12/17 16:42 05/12/17 14:02 05/12/17 05/12/17 05/12/17 14:02 14:02 14:02 WBC Cancelled RBC Cancelled Hgb Cancelled Hct Cancelled MCV Cancelled MCH Cancelled MCHC Cancelled RDW Cancelled Plt Count Cancelled Seg Neutrophils % Cancelled Lymphocytes % Cancelled Monocytes % Cancelled Eosinophils % Cancelled Basophils % Cancelled Absolute Neutrophils Cancelled Absolute Lymphocytes Cancelled Absolute Monocytes Cancelled Absolute Eosinophils Cancelled Absolute Basophils Cancelled VBG pH VBG pCO2 VBG HCO3 VBG Base Excess Sodium 144.0 Potassium 4.2 Chloride 103 Carbon Dioxide 29 Anion Gap 12 BUN 25 H Creatinine 1.50 H Est GFR ( Amer) 40 L Est GFR (Non-Af Amer) 33 L Glucose 97 Lactic Acid 1.7 Calcium 9.6 Total Bilirubin 1.2 AST 21 ALT 19 Alkaline Phosphatase 199 H Total Protein 7.9 Albumin 4.2 Urine Color Urine Appearance Urine pH Ur Specific [place] Urine Protein Urine Glucose (UA) Urine Ketones Urine Blood Urine Nitrite Ur Leukocyte Esterase Urine WBC (Auto) Urine RBC (Auto) 05/12/17 05/12/17 05/12/17 14:02 16:42 17:55 WBC 32.0 H* RBC Hgb Hct 54.0 H MCV MCH MCHC RDW Plt Count 288 Seg Neutrophils % Not Reportable Lymphocytes % Not Reportable Monocytes % Not Reportable Eosinophils % Not Reportable Basophils % Not Reportable Absolute Neutrophils Not Reportable Absolute Lymphocytes Not Reportable Absolute Monocytes Not Reportable Absolute Eosinophils Not Reportable Absolute Basophils Not Reportable VBG pH 7.29 L VBG pCO2 67.0 H* VBG HCO3 31.8 VBG Base Excess 3.1 Sodium Potassium Chloride Carbon Dioxide Anion Gap BUN Creatinine Est GFR ( Amer) Est GFR (Non-Af Amer) Glucose Lactic Acid Calcium Total Bilirubin AST ALT Alkaline Phosphatase Total Protein Albumin Urine Color YELLOW Urine Appearance CLOUDY Urine pH 5.0 Ur Specific [place] 1.034 Urine Protein 30 H Urine Glucose (UA) NEGATIVE Urine Ketones NEGATIVE Urine Blood SMALL H Urine Nitrite NEGATIVE Ur Leukocyte Esterase LARGE H Urine WBC (Auto) 11 Urine RBC (Auto) 2 05/12/17 16:42 Troponin I < 0.012 Impressions: Chest X-Ray 05/12/17 13:41 IMPRESSION: NO ACUTE RADIOGRAPHIC FINDING IN THE CHEST. Cervical Spine CT 05/12/17 14:20 IMPRESSION: No acute fracture or malalignment. Moderate central canal stenosis at C5-6 and C6-[address] 05/12/17 14:20 IMPRESSION: Multiple old infarcts. No acute findings. Abdomen/Pelvis CT 05/12/17 14:23 IMPRESSION: NO SIGNIFICANT OR ACUTE FINDING IN THE ABDOMEN OR PELVIS ON CT SCAN WITH IV CONTRAST. Assessment & Plan - Diagnosis (1) IMANI (acute kidney injury) Is this a current diagnosis for this admission?: Yes Plan: This may be due to volume depletion versus hypotension. Her creatinine in February 2017 was 0.9. I will treat her with IV fluids. For now, I will also hold her antihypertensive medications. Recheck in a.m. (2) Hypotension Qualifiers: Hypotension type: hypotension due to drug Qualified Code(s): I95.2 - Hypotension due to drugs Is this a current diagnosis for this admission?: Yes Plan: See above (3) Chronic diastolic CHF (congestive heart failure) Is this a current diagnosis for this admission?: Yes Plan: Currently she is asymptomatic. I am going to hold her BP meds for now. He simply require reduction in dose. (4) Diabetes mellitus type II, controlled Qualifiers: Diabetes mellitus complication status: with circulatory complication Diabetes mellitus complication detail: with other circulatory complications Diabetes mellitus director long term care insulin use: without director long term care use Qualified Code( s): E11.59 - Type 2 diabetes mellitus with other circulatory complications Is this a current diagnosis for this admission?: Yes Plan: For now, use sliding scale. I will hold her oral hypoglycemics. (5) CAD (coronary artery disease) Qualifiers: Coronary Disease-Associated Artery/Lesion type: [place] artery [place] vs. transplanted heart: [place] heart Associated angina: without angina Qualified Code(s): I25.10 - Atherosclerotic heart disease of [place] coronary artery without angina pectoris Is this a current diagnosis for this admission?: Yes Plan: Stable. Antiplatelets, statin, and lashell when blood pressure allows - Time Time Spent: 50 to 70 Minutes Medications reviewed and adjusted accordingly: Yes Anticipated discharge: Home with Homehealth Within: within 24 hours - Inpatient Certification Based on my medical assessment, after consideration of the patient's comorbidities, presenting symptoms, or acuity I expect that the services needed warrant INPATIENT care.: Yes I certify that my determination is in accordance with my understanding of Medicare's requirements for reasonable and necessary INPATIENT services [42 CFR 412.3e].: Yes Medical Necessity: Need Close Monitoring Due to Risk of Patient Decompensation, Need For IV Fluids, Risk of Complication if Not Cared For in Hospital
--- NOTE | 2017-05-12 20:20 | EKG REPORT ---
SEVERITY:- ABNORMAL ECG - SINUS RHYTHM CONSIDER ANTEROSEPTAL INFARCT BORDERLINE PROLONGED QT INTERVAL : Confirmed by: Bud Medina 12-May-2017 20:19:46
[2017-05-12] MEDS: BUSPIRONE HCL 10 MG TABLET PO SCH (23:17)
[2017-05-12] MEDS: GABAPENTIN 300 MG CAPSULE PO SCH (23:17)
[2017-05-12] MEDS: ATORVASTATIN CALCIUM 80 MG TABLET PO SCH (23:17)
[2017-05-13 06:59] LABS: ANION GAP 9 (5-19); BLOOD UREA NITROGEN 23 mg/dL (7-20); CARBON DIOXIDE 27 mmol/L (22-30); CHLORIDE 106 mmol/L (98-107); CREATININE RESULT 1.13 mg/dL (0.52-1.25); GLUCOSE 172 mg/dL (75-110); POTASSIUM 4.3 mmol/L (3.6-5.0); SODIUM 142.2 mmol/L (137-145)
[2017-05-13] MEDS ORDERED: (PENDING PHARMACY ID) (Rosuvastatin Calcium [Crestor] 40 MG) PO SCH (10:00)
[2017-05-13] MEDS: OXYCODONE-ACETAMINOPHEN 5-325 MG TABLET PO PRN ×3 (10:06→21:08)
[2017-05-13] MEDS: LANSOPRAZOLE 30 MG TAB.RAP.DR PO SCH (10:07)
[2017-05-13] MEDS: ISOSORBIDE MONONITRATE 30 MG TAB.ER.24H PO SCH (10:07)
[2017-05-13] MEDS: CLOPIDOGREL BISULFATE 75 MG TABLET PO SCH (10:07)
[2017-05-13] MEDS: GABAPENTIN 300 MG CAPSULE PO SCH ×2 (10:07→21:08)
[2017-05-13] MEDS: ASPIRIN 81 MG TABLET, ENT COATED PO SCH (10:08)
[2017-05-13] MEDS: LOSARTAN POTASSIUM 50 MG TABLET PO SCH (10:08)
--- NOTE | 2017-05-13 10:08 | PDOC DISCHARGE SUMMARY ---
General - Admit/Disc Date/PCP Admission Date/Primary Care Provider: 05/12/17 18:36 JAVED GUERRIER MD Discharge Date: 05/13/17 - Discharge Diagnosis (1) IMANI (acute kidney injury) Is this a current diagnosis for this admission?: Yes (2) Hypotension Is this a current diagnosis for this admission?: Yes (3) Chronic diastolic CHF (congestive heart failure) Is this a current diagnosis for this admission?: Yes (4) Diabetes mellitus type II, controlled Is this a current diagnosis for this admission?: Yes (5) CAD (coronary artery disease) Is this a current diagnosis for this admission?: Yes - Additional Information Resuscitation Status: Do Not Resuscitate Discharge Diet: Cardiac Discharge Activity: Activity As Tolerated Home Medications: Aspirin [Aspirin EC] 81 mg PO DAILY 03/14/17 Buspirone HCl [Buspar 10 mg Tablet] 10 mg PO Q12 03/14/17 Clopidogrel Bisulfate [Plavix 75 mg Tablet] 75 mg PO DAILY 03/14/17 Docusate Sodium [Colace 100 mg Capsule] 100 mg PO BID 03/14/17 Gabapentin [Neurontin 300 mg Capsule] 300 mg PO Q12 03/14/17 Glimepiride [Amaryl 1 mg Tablet] 1 mg PO BIDBS 03/14/17 Isosorbide Mononitrate [Isosorbide Mononitrate ER] 30 mg PO DAILY 03/14/17 Pantoprazole Sodium [Protonix] 40 mg PO DAILY 03/14/17 Rosuvastatin Calcium [Crestor] 40 mg PO DAILY 03/14/17 Sitagliptin Phosphate [Januvia] 100 mg PO DAILY 03/14/17 Trazodone HCl [Desyrel 50 mg Tablet] 50 mg PO HSP PRN 03/14/17 Losartan Potassium [Cozaar 50 mg Tablet] 25 mg PO DAILY #15 tablet 05/13/17 Metoprolol Tartrate [Lopressor 100 mg Tablet] 50 mg PO Q12 #30 tablet 05/13/17 Oxycodone HCl/Acetaminophen [Percocet 5-325 mg Tablet] 1 tab PO Q6HP PRN #20 tablet 05/13/17 History of Present Illness History of Present Illness: ORACIO MUIR is a 82 year old female who was referred to the ED by her home health nurse during a routine visit. Her blood pressure reportedly was in the 90s. Despite this, she was asymptomatic. She fell the evening before admission around 10 PM. She did not injure herself, but presented with back, neck and head discomfort. She ambulates with a walker. In the ED, her initial blood pressure was in the 90s. She received a half a liter of normal saline with subsequent improvement. She did not report chest pain or shortness of breath. Despite this, a venous blood gas was obtained. Because of an elevated PCO2, she was placed on BiPAP. Her chest x-ray was normal. CT abdomen/pelvis showed no acute abnormalities. She has a chronically elevated white blood cell count and hematocrit. Her creatinine however, was elevated. It was 0.9 in February 2017. On admission, it is 1.5. Hospital Course Hospital Course: Ms. Muir was admitted secondary to acute kidney injury secondary to hypotension. She was continued on IV fluids overnight. Her blood pressure normalized. Her creatinine returned to normal. Her hospital stay was uneventful. Her only concern was pain in her sacral area. CT of her abdomen/ pelvis did not demonstrate any bony fractures. In theory, she could have a sacral insufficiency fracture. There was evidence of an old fracture on the CT scan. At any rate, the only treatment for that would be pain management and physical therapy. I recommended that she resume her antihypertensive medications, but only at half the dose. Physical Exam Vital Signs: Temp Pulse Resp BP Pulse Ox 98.3 F 93 18 142/79 H 97 05/13/17 08:00 05/13/17 08:00 05/13/17 08:00 05/13/17 08:00 05/13/17 08:00 Intake & Output 05/12/17 05/13/17 05/14/17 06:59 06:59 06:59 Intake Total 500 Output Total 900 Balance -400 Weight 104.3 kg General appearance: PRESENT: no acute distress Head exam: PRESENT: atraumatic, normocephalic Eye exam: PRESENT: conjunctiva pink, EOMI, PERRLA. ABSENT: scleral icterus Respiratory exam: PRESENT: clear to auscultation carmen. ABSENT: rales, rhonchi, wheezes Cardiovascular exam: PRESENT: RRR. ABSENT: diastolic murmur, rubs, systolic murmur GI/Abdominal exam: PRESENT: normal bowel sounds, soft. ABSENT: distended, guarding, mass, organolmegaly, rebound, tenderness Musculoskeletal exam: PRESENT: tenderness - Sacral Neurological exam: PRESENT: alert, awake, oriented to person, oriented to place , oriented to time, oriented to situation, CN II-XII grossly intact. ABSENT: motor sensory deficit Psychiatric exam: PRESENT: appropriate affect, normal mood. ABSENT: homicidal ideation, suicidal ideation Skin exam: PRESENT: dry, intact, warm. ABSENT: cyanosis, rash Results Laboratory Results: 05/13/17 05:52 05/13/17 05:52 Sodium 142.2 Potassium 4.3 Chloride 106 Carbon Dioxide 27 Anion Gap 9 BUN 23 H Creatinine 1.13 Est GFR ( Amer) 56 L Est GFR (Non-Af Amer) 46 L Glucose 172 H Calcium 9.0 Impressions: Chest X-Ray 05/12/17 13:41 IMPRESSION: NO ACUTE RADIOGRAPHIC FINDING IN THE CHEST. Cervical Spine CT 05/12/17 14:20 IMPRESSION: No acute fracture or malalignment. Moderate central canal stenosis at C5-6 and C6-[address] 05/12/17 14:20 IMPRESSION: Multiple old infarcts. No acute findings. Abdomen/Pelvis CT 05/12/17 14:23 IMPRESSION: NO SIGNIFICANT OR ACUTE FINDING IN THE ABDOMEN OR PELVIS ON CT SCAN WITH IV CONTRAST. Qualifiers PATEINT BEING DISCHARGED WITH ANY OF THE FOLLOWING DIAGNOSIS?: No Plan Discharge Plan: Resume home health services. She will follow-up with her primary care provider in the next 1-2 weeks to recheck her blood pressure. Time Spent: Greater than 30 Minutes - 35 minutes
[2017-05-13] MEDS: SITAGLIPTIN PHOSPHATE 50 MG TABLET PO SCH (10:09)
[2017-05-13] MEDS: BUSPIRONE HCL 10 MG TABLET PO SCH ×2 (10:09→21:08)
[2017-05-13] MEDS: DOCUSATE SODIUM 100 MG CAPSULE PO SCH ×2 (10:09→17:38)
[2017-05-13] MEDS: METOPROLOL TARTRATE 100 MG TABLET PO SCH ×2 (14:13→21:08)
[2017-05-13] MEDS: ATORVASTATIN CALCIUM 80 MG TABLET PO SCH (21:10)
[2017-05-14] MEDS: INSULIN LISPRO 100 UNIT/ML 3 ML VIAL SUBCUT PRN ×4 (00:11→23:25)
[2017-05-14] MEDS: TRAZODONE HCL 50 MG TABLET PO PRN ×2 (00:13→23:31)
[2017-05-14] MEDS: OXYCODONE-ACETAMINOPHEN 5-325 MG TABLET PO PRN ×4 (01:24→20:42)
[2017-05-14] MEDS: BUSPIRONE HCL 10 MG TABLET PO SCH ×2 (09:36→23:25)
[2017-05-14] MEDS: ISOSORBIDE MONONITRATE 30 MG TAB.ER.24H PO SCH (09:36)
[2017-05-14] MEDS: SITAGLIPTIN PHOSPHATE 50 MG TABLET PO SCH (09:36)
[2017-05-14] MEDS: LANSOPRAZOLE 30 MG TAB.RAP.DR PO SCH (09:36)
[2017-05-14] MEDS: GABAPENTIN 300 MG CAPSULE PO SCH ×2 (09:36→23:25)
[2017-05-14] MEDS: CLOPIDOGREL BISULFATE 75 MG TABLET PO SCH (09:36)
[2017-05-14] MEDS: DOCUSATE SODIUM 100 MG CAPSULE PO SCH ×2 (09:36→18:14)
[2017-05-14] MEDS: METOPROLOL TARTRATE 100 MG TABLET PO SCH ×2 (09:37→23:25)
[2017-05-14] MEDS: LOSARTAN POTASSIUM 50 MG TABLET PO SCH (09:37)
[2017-05-14] MEDS: ASPIRIN 81 MG TABLET, ENT COATED PO SCH (09:38)
--- NOTE | 2017-05-14 11:43 | PROGRESS NOTE E ---
Progress Note NAME: ORACIO PEDROZA : 1935 AGE: 82Y DATE: 05/14/2017 ROOM: 538 SUBJECTIVE: The patient is an 82-year-old female, has multiple medical problems including congestive heart failure, coronary artery disease, hypertension, diabetes, admitted due to fall. OBJECTIVE: GENERAL: The patient is lying in bed, comfortable, not in distress. VITAL SIGNS: Temperature 98.3, heart rate 88, respiratory 18, blood pressure 132/69. HEENT: Normocephalic, atraumatic. Pupils are round, reactive, and equal to light and accommodation bilaterally. Extraocular movements intact. Ears: Tympanic membranes intact bilaterally. No discharge from the ears. No discharge from the nose. NECK: Supple. No increased JVD. No thyromegaly. No lymphadenopathy. CARDIOVASCULAR: Normal S1 and S2. Regular rate and rhythm. No murmur. No gallop. RESPIRATORY: Lungs clear to auscultation bilaterally. ABDOMEN: Soft. MUSCULOSKELETAL: No edema. NEUROLOGIC: Awake, alert. SKIN: No rash. DIAGNOSTIC DATA: Labs: White blood count 32 from two days ago. Sodium 142, potassium 4.3. Urinalysis with large leukocyte esterase. ASSESSMENT: 1. IMANI, RESOLVED. 2. DIABETES MELLITUS TYPE 2, CONTROLLED. 3. CONGESTIVE HEART FAILURE. 4. HYPERTENSION, IMPROVED. 5. LEUKOCYTOSIS. PLAN: We will keep the patient another day. She still has constipation and she is complaining of pain, and she is not eating. *------* leukocytosis. Need to observe overnight, another day. Will get labs tomorrow. DICTATING PHYSICIAN: DEBORAH TEIXEIRA M.D. [id number] PHY#: [id number] ID: [id number] JOB#: [id number] ACCT: [id number] cc: >
[2017-05-14] MEDS: ATORVASTATIN CALCIUM 80 MG TABLET PO SCH (23:25)
[2017-05-15 05:34] LABS: HEMATOCRIT 45.7 % (36.0-47.0); HEMOGLOBIN 14.1 g/dL (12.0-15.5); HGB HCT DIFFERENCE -3.4; MEAN CORPUSCULAR HEMOGLOBIN 19.6 pg (27.0-33.4); MEAN CORPUSCULAR HGB CONC 30.9 g/dL (32.0-36.0); RED CELL DISTRIBUTION WIDTH 21.7 % (11.5-14.0); WHITE BLOOD COUNT 24.6 10^3/uL (4.0-10.5)
[2017-05-15 05:49] LABS: ALBUMIN 3.6 g/dL (3.5-5.0); ANION GAP 10 (5-19); BLOOD UREA NITROGEN 15 mg/dL (7-20); CALCIUM 9.9 mg/dL (8.4-10.2); CARBON DIOXIDE 27 mmol/L (22-30); CHLORIDE 102 mmol/L (98-107); CREATININE RESULT 0.77 mg/dL (0.52-1.25); GLUCOSE 250 mg/dL (75-110); PHOSPHORUS 4.1 mg/dL (2.5-4.5); POTASSIUM 4.5 mmol/L (3.6-5.0); SODIUM 139.4 mmol/L (137-145)
[2017-05-15 06:07] LABS: RED BLOOD COUNT 7.19 10^6/uL (3.72-5.28)
[2017-05-15 06:10] LABS: BAND NEUTROPHILS % (MANUAL) 8 % (3-5); BASOPHILS % (MANUAL) 0 % (0-2); EOSINOPHILS % (MANUAL) 0 % (0-6); LYMPHOCYTES % (MANUAL) 2 % (13-45); TOTAL CELLS COUNTED 100
[2017-05-15 06:11] LABS: POLYCHROMASIA SLIGHT
[2017-05-15 06:12] LABS: ANISOCYTOSIS 3+; HYPOCHROMASIA 1+; MICROCYTOSIS 3+; TARGET CELLS 1+
[2017-05-15 06:13] LABS: OVALOCYTES 1+; PLATELET CLUMPS PRESENT; POIKILOCYTOSIS 1+
[2017-05-15 06:14] LABS: MEAN CORPUSCULAR VOLUME 64 fl (80-97)
[2017-05-15] MEDS: INSULIN LISPRO 100 UNIT/ML 3 ML VIAL SUBCUT PRN ×3 (07:36→17:37)
[2017-05-15] MEDS: OXYCODONE-ACETAMINOPHEN 5-325 MG TABLET PO PRN (08:32)
[2017-05-15] MEDS: LANSOPRAZOLE 30 MG TAB.RAP.DR PO SCH (10:30)
[2017-05-15] MEDS: LOSARTAN POTASSIUM 50 MG TABLET PO SCH (10:31)
[2017-05-15] MEDS: ASPIRIN 81 MG TABLET, ENT COATED PO SCH (10:31)
[2017-05-15] MEDS: DOCUSATE SODIUM 100 MG CAPSULE PO SCH ×2 (10:31→17:37)
[2017-05-15] MEDS: SITAGLIPTIN PHOSPHATE 50 MG TABLET PO SCH (10:32)
[2017-05-15] MEDS: GABAPENTIN 300 MG CAPSULE PO SCH (10:32)
[2017-05-15] MEDS: ISOSORBIDE MONONITRATE 30 MG TAB.ER.24H PO SCH (10:32)
[2017-05-15] MEDS: CLOPIDOGREL BISULFATE 75 MG TABLET PO SCH (10:32)
[2017-05-15] MEDS: BUSPIRONE HCL 10 MG TABLET PO SCH (10:32)
[2017-05-15] MEDS: METOPROLOL TARTRATE 100 MG TABLET PO SCH (10:34)
--- NOTE | 2017-05-15 10:48 | PROGRESS NOTE E ---
Progress Note NAME: ORACIO PEDROZA : 1935 AGE: 82Y DATE: 05/15/2017 ROOM: 538 SUBJECTIVE: The patient an 82-year-old female, who has a past medical history of multiple medical problems including congestive heart failure, coronary artery disease, hypertension, diabetes, admitted due to UTI and fall. Doing better today. PHYSICAL EXAMINATION: GENERAL: Patient lying in bed comfortable, not in distress. VITAL SIGNS: Temperature 99.1, heart rate 89, respirations 18, blood pressure 151/71, saturation 97% on room air. HEENT: Head normocephalic, atraumatic. Pupils round, reactive to light and accommodation bilaterally. Extraocular movements intact. Ears: Tympanic membranes intact bilateral. No discharge from the ear. No discharge from nose. NECK: Supple. No increased JVD. No thyromegaly. No lymphadenopathy. CARDIOVASCULAR: Normal S1, S2. Regular rate and rhythm. No murmur. No gallop. RESPIRATORY: Lungs clear. ABDOMEN: Soft, nontender. MUSCULOSKELETAL: No edema. NEUROLOGICAL: Awake, alert. SKIN: No rash. LABORATORY: White blood count 24.5, hemoglobin 13. Creatine 0.77. Urine culture was negative. Chest x-ray was unremarkable. Urinalysis was unremarkable. trace, but otherwise unremarkable. ASSESSMENT: 1. ACUTE KIDNEY INJURY SECONDARY TO DEHYDRATION, RESOLVED. 2. DIABETES TYPE 2, CONTROLLED. 3. CONGESTIVE HEART FAILURE. 4. HYPERTENSION. 5. LEUKOCYTOSIS PROBABLY REACTIVE, NEGATIVE CHEST X-RAY. 6. MILD URINARY TRACT INFECTION, CULTURE WAS NEGATIVE, AFEBRILE. PLAN: The patient will proceed with discharge to home today. I will put her on Levaquin 500 mg p.o. daily just to cover leukocytosis. She needs to see her primary care physician in 1 week. Resume home health with physical therapy. DICTATING PHYSICIAN: DEBORAH TEIXEIRA M.D. [id number] PHY#: [id number] ID: [id number] JOB#: [id number] ACCT: [id number] cc: > MTDD
[2017-05-15] MEDS ORDERED: BISACODYL 10 MG SUPP.RECT PR ONE (11:30)
[2017-05-15] MEDS ORDERED: LEVOFLOXACIN 500 MG TABLET PO ONE (12:00)
[2017-05-15 12:36] VITALS: BP 135/85
[2017-05-16] MEDS ORDERED: LEVOFLOXACIN 500 MG TABLET PO SCH (10:00)
--- NOTE | 2017-05-16 12:17 | DISCHARGE SUMMARY E ---
Discharge Summary NAME: ORACIO PEDROZA : 1935 AGE: 82Y ADMITTED: 05/15/2017 DISCHARGED: 05/15/2017 ADDENDUM: The patient will be discharged home today. Resume her home medications. Resume home health with physical therapy. DICTATING PHYSICIAN: DEBORAH TEIXEIRA M.D. [id number] PHY#: [id number] ID: [id number] JOB#: [id number] ACCT: [id number] cc:DORY SALAZAR M.D., ABDELAZIZ M.D. >
[2017-05-16 14:46] LABS: PATH REVIEW PATHOLOGIST REVIEWED
== END 2017-05-15 17:43 | disposition home health service (06) | DRG 683 ==
LOC: ER 13:40 → UNDOADMOB 18:36 → INTOOBSV 18:36 → OBSVTOIN 18:36 → EH 18:36 → 5 21:10 → EH 21:10 → 5 05-15 11:36 → OBSVTOIN 05-15 11:36
PROVIDERS: ADMIT Internal Medicine; ATTEND Internal Medicine
DX: N17.9 Acute kidney failure, unspecified (principal); I50.32 Chronic diastolic (congestive) heart failure; E86.0 Dehydration; I11.0 Hypertensive heart disease with heart failure; Z66 Do not resuscitate; E11.9 Type 2 diabetes mellitus without complications; I25.10 Atherosclerotic heart disease of native coronary artery without angina pectoris; E78.5 Hyperlipidemia, unspecified; E66.9 Obesity, unspecified; Z68.38 Body mass index [BMI] 38.0-38.9, adult; M19.90 Unspecified osteoarthritis, unspecified site; F32.9 Major depressive disorder, single episode, unspecified; Z79.82 Long term (current) use of aspirin; Z79.899 Other long term (current) drug therapy; Z79.02 Long term (current) use of antithrombotics/antiplatelets; I25.2 Old myocardial infarction; Z85.828 Personal history of other malignant neoplasm of skin; Z90.710 Acquired absence of both cervix and uterus; Z86.73 Personal history of transient ischemic attack (TIA), and cerebral infarction without residual deficits; Z86.711 Personal history of pulmonary embolism
CPT/HCPCS: 36415; 70450; 71010; 72125; 74177; 80048; 80053; 80069; 81001; 82803; 82962; 83605; 84484; 85025; 85610; 87040; 87086; 93005; 93010; 94660; 96361; 96374; 99285; J1815; J2270; J2405; J3490; J7030

== ENCOUNTER 2017-05-25 19:50 | Emergency (ER) | payer MEDICARE, OTHER ==
--- NOTE | 2017-05-25 20:39 | ER Document Report ---
ED Medical Screen (RME) - General Chief Complaint: Abdominal Pain Stated Complaint: ABDOMINAL PAIN Time Seen by Provider: 05/25/17 20:37 Notes: Patient states that she has had constipation for several days and that she took a laxative. Today she was straining and had a normal bowel movement. However afterwards she has severe right-sided abdominal pain that will not go away. No vomiting. No problems with urination. No vaginal symptoms. No trauma or fevers. TRAVEL OUTSIDE OF THE [place] IN LAST 30 DAYS: No - Related Data Allergies/Adverse Reactions: No Known Allergies Allergy (Verified 05/25/17 20:33) Past Medical History - Past Medical History Cardiac Medical History: Reports: Hx Congestive Heart Failure - Diastolic, Hx Heart Attack - EKG suggests probable prior infarction, Hx Hypercholesterolemia, Hx Hypertension, Hx Pulmonary Embolism - Distant history Pulmonary Medical History: Denies: Hx Asthma, Hx COPD, Hx Sleep Apnea Neurological Medical History: Denies: Hx Seizures Endocrine Medical History: Reports: Hx Diabetes Mellitus Type 1, Hx Diabetes Mellitus Type 2. Denies: Hx Hyperthyroidism, Hx Hypothyroidism Renal/ Medical History: Denies: Hx End Stage Renal Disease, Hx Peritoneal Dialysis Malignancy Medical History: Reports: Hx Skin Cancer - Excised from her nose. GI Medical History: Reports: Hx Gastroesophageal Reflux Disease. Denies: Hx Cirrhosis, Hx Hepatitis Musculoskeltal Medical History: Reports Hx Arthritis, Reports Hx Musculoskeletal Deformity Skin Medical History: Denies Hx Eczema, Denies Hx Psoriasis Psychiatric Medical History: Reports: Hx Anxiety, Hx Depression Infectious Medical History: Reports: Hx MRSA - Quite distant history. Denies: Hx C-Diff, Hx Hepatitis Past Surgical History: Reports: Hx Abdominal Surgery, Hx Appendectomy, Hx Hysterectomy, Hx Tonsillectomy, Other - Cardiac loop recorder, bilateral cataract surgery - Immunizations Hx Diphtheria, Pertussis, Tetanus Vaccination: No Physical Exam - Vital signs Vitals: Temp Pulse Resp BP Pulse Ox 99.1 F 85 20 124/54 L 93 05/25/17 20:02 05/25/17 20:02 05/25/17 20:02 05/25/17 20:02 05/25/17 20:02 Course - Vital Signs Vital signs: Temp Pulse Resp BP Pulse Ox 99.1 F 85 20 124/54 L 93 05/25/17 20:02 05/25/17 20:02 05/25/17 20:02 05/25/17 20:02 05/25/17 20:02
[2017-05-25] MEDS ORDERED: MORPHINE SULFATE 10 MG/ML INJ IV ONE (20:48)
[2017-05-25 21:34] LABS: HEMOGLOBIN 15.6 g/dL (12.0-15.5); MEAN CORPUSCULAR HEMOGLOBIN 19.3 pg (27.0-33.4); MEAN CORPUSCULAR HGB CONC 30.6 g/dL (32.0-36.0); RED CELL DISTRIBUTION WIDTH 22.6 % (11.5-14.0)
[2017-05-25 21:36] LABS: APPEARANCE,URINE CLEAR; BILIRUBIN,URINE NEGATIVE (NEGATIVE); GLUCOSE, URINE 50 mg/dL (NEGATIVE); KETONES,URINE NEGATIVE (NEGATIVE); LEUKOCYTE ESTERASE,URINE MODERATE (NEGATIVE); NITRITE,URINE NEGATIVE (NEGATIVE); PROTEIN,URINE 30 mg/dL (NEGATIVE); URINE SPECIFIC GRAVITY 1.008; UROBILINOGEN,URINE NEGATIVE mg/dL (<2.0)
[2017-05-25 21:52] LABS: ALANINE AMINOTRANSFERASE 18 U/L (9-52); ALBUMIN 4.7 g/dL (3.5-5.0); ALKALINE PHOSPHATASE 243 U/L (38-126); ANION GAP 12 (5-19); ASPARTATE AMINO TRANSFERASE 29 U/L (14-36); BILIRUBIN,DIRECT 0.5 mg/dL (0.0-0.4); BILIRUBIN,TOTAL 1.3 mg/dL (0.2-1.3); BLOOD UREA NITROGEN 17 mg/dL (7-20); CARBON DIOXIDE 28 mmol/L (22-30); CHLORIDE 102 mmol/L (98-107); CREATININE RESULT 1.07 mg/dL (0.52-1.25); GLUCOSE 245 mg/dL (75-110); SODIUM 142.2 mmol/L (137-145); TOTAL PROTEIN 8.7 g/dL (6.3-8.2)
[2017-05-25 21:58] LABS: HGB HCT DIFFERENCE -4.2
[2017-05-25 21:59] LABS: RED BLOOD COUNT 8.06 10^6/uL (3.72-5.28)
[2017-05-25 22:04] LABS: BAND NEUTROPHILS % (MANUAL) 5 % (3-5); BASOPHILS % (MANUAL) 0 % (0-2); EOSINOPHILS % (MANUAL) 3 % (0-6); LYMPHOCYTES % (MANUAL) 3 % (13-45); TOTAL CELLS COUNTED 100
[2017-05-25 22:11] LABS: POLYCHROMASIA SLIGHT
[2017-05-25 22:12] LABS: ANISOCYTOSIS 2+; HYPOCHROMASIA 1+; MICROCYTOSIS 3+; OVALOCYTES 1+; POIKILOCYTOSIS 1+; TARGET CELLS SLIGHT
--- NOTE | 2017-05-25 22:21 | ER Document Report ---
ED General - General Chief Complaint: Abdominal Pain Stated Complaint: ABDOMINAL PAIN Time Seen by Provider: 05/25/17 20:37 Notes: Patient is an 82-year-old female who presents with complaints of abdominal pain. Abdominal pain is a right lower quadrant. Patient is on Ultram after having a tailbone injury. Patient later developed severe constipation. She took some of her daughter's constipation medication. After that she had several large bowel movements. When having a large bowel movement she still having pain in her right lower quadrant. No vomiting. No fevers. No dysuria. No diarrhea. No other complaints at this time. She does have history of hysterectomy as well as appendectomy. TRAVEL OUTSIDE OF THE [place] IN LAST 30 DAYS: No - Related Data Allergies/Adverse Reactions: No Known Allergies Allergy (Verified 05/25/17 20:33) Past Medical History - Social History Smoking Status: Never Smoker Frequency of alcohol use: None Drug Abuse: None Family History: CAD, COPD, DM, Hyperlipidemia, Hypertension, Malignancy - Father with lung cancer, Other Patient has suicidal ideation: No Patient has homicidal ideation: No - Past Medical History Cardiac Medical History: Reports: Hx Congestive Heart Failure - Diastolic, Hx Heart Attack - EKG suggests probable prior infarction, Hx Hypercholesterolemia, Hx Hypertension, Hx Pulmonary Embolism - Distant history Pulmonary Medical History: Denies: Hx Asthma, Hx COPD, Hx Sleep Apnea Neurological Medical History: Denies: Hx Seizures Endocrine Medical History: Reports: Hx Diabetes Mellitus Type 1, Hx Diabetes Mellitus Type 2. Denies: Hx Hyperthyroidism, Hx Hypothyroidism Renal/ Medical History: Denies: Hx End Stage Renal Disease, Hx Peritoneal Dialysis Malignancy Medical History: Reports: Hx Skin Cancer - Excised from her nose. GI Medical History: Reports: Hx Gastroesophageal Reflux Disease. Denies: Hx Cirrhosis, Hx Hepatitis Musculoskeltal Medical History: Reports Hx Arthritis, Reports Hx Musculoskeletal Deformity Skin Medical History: Denies Hx Eczema, Denies Hx Psoriasis Psychiatric Medical History: Reports: Hx Anxiety, Hx Depression Infectious Medical History: Reports: Hx MRSA - Quite distant history. Denies: Hx C-Diff, Hx Hepatitis Past Surgical History: Reports: Hx Abdominal Surgery, Hx Appendectomy, Hx Hysterectomy, Hx Tonsillectomy, Other - Cardiac loop recorder, bilateral cataract surgery - Immunizations Hx Diphtheria, Pertussis, Tetanus Vaccination: No Hx Pneumococcal Vaccination: 04/29/13 Review of Systems - Review of Systems Notes: My Normal Review Basic REVIEW OF SYSTEMS: CONSTITUTIONAL : Denies fever, chills, or sweats. Denies recent illness. EENT: Denies eye, ear, throat, or mouth pain or symptoms. Denies nasal or sinus congestion. CARDIOVASCULAR: Denies chest pain. RESPIRATORY: Denies cough, cold, or chest congestion. Denies shortness of breath, difficulty breathing, or wheezing. GASTROINTESTINAL: Right lower quadrant abdominal pain. Denies nausea, vomiting , or diarrhea. . Last BM: Today GENITOURINARY: Denies difficulty urinating, painful urination, burning, frequency, or blood in urine. MUSCULOSKELETAL: Denies neck or back pain or joint pain or swelling. SKIN: Denies rash or skin lesions. NEUROLOGICAL: Denies altered mental status or loss of consciousness. Denies headache. Denies weakness or paralysis or loss of use of either side. Denies problems with gait or speech. Denies sensory or motor loss. ALL OTHER SYSTEMS REVIEWED AND NEGATIVE. Physical Exam - Vital signs Vitals: Temp Pulse Resp BP Pulse Ox 99.1 F 85 20 124/54 L 93 05/25/17 20:02 05/25/17 20:02 05/25/17 20:02 05/25/17 20:02 05/25/17 20:02 - Notes Notes: General Appearance: Well nourished, alert, cooperative, no acute distress, no obvious discomfort. Vitals: reviewed, See vital signs table. Head: no swelling or tenderness to the head Eyes: PERRL, EOMI, Conjuctiva clear Mouth: No decreasd moisture Lungs: No wheezing, No rales, No rhonci, No accessory muscle use, good air exchange bilaterally. Heart: Normal rate, Regular rythm, No murmur, no rub Abdomen: Normal BS, soft, No rigidity, mild RLQ abdominal tenderness to palpation, Extremities: strength 5/5 in all extremities, good pulses in all extremities, no swelling or tenderness in the extremities, no edema. Skin: warm, dry, appropriate color, no rash Neuro: speech clear, oriented x 3, normal affect, responds appropriately to questions. Course - Re-evaluation Re-evalutation: 05/26/17 00:43 Patient's abdominal pain is much improved. She looks well. It seems that her pain did start when she went from constipation to having a large amount bowel movements today. Did obtain a CT scan to speak because of her age, some abdominal pain, and her chronic elevated white blood cell count. Her CT scan did not show anything concerning. Her exam is benign. Her white blood cell count is 40,000 today. I did review her elevated white blood cell count over the last 6 months. It appears that she trends between the mid 20,000s to the low 40,000s. I did read Dr. Silke Pleitez notes from where she was consulted on her in August. At that time he did do leukemia lymphoma workup. Everything was negative. He mentioned his note that this could be a leukemoid reaction but if he continued she may eventually need a bone mild biopsy. She says she was supposed to follow-up with Dr. Silke mullins but did not but they do plan on following up with him. I explained to the the patient and her daughter the importance of following up with Dr. Silke Devi to discuss whether or not he feels that she does need a bone marrow biopsy or further treatments that he suggest at this time due to her chronically elevated white blood cell count. I encouraged him to return to ER immediately if she has worsening pain, fevers, vomiting, or feels unwell. Patient and her daughter agree with plan and she will be discharged home. Dictation of this chart was performed using voice recognition software; therefore, there may be some unintended grammatical errors. - Vital Signs Vital signs: Temp Pulse Resp BP Pulse Ox 99.1 F 71 18 133/56 H 93 05/25/17 20:02 05/25/17 22:02 05/26/17 00:01 05/26/17 00:01 05/26/17 00:01 - Laboratory Result Diagrams: 05/25/17 21:10 05/25/17 21:10 Laboratory results interpreted by me: 05/25/17 05/25/17 05/25/17 21:10 21:10 21:10 WBC 40.3 H* RBC 8.06 H Hgb 15.6 H Hct 51.0 H MCV 63 L MCH 19.3 L MCHC 30.6 L RDW 22.6 H Seg Neuts % (Manual) 85 H Lymphocytes % (Manual) 3 L Abs Neuts (Manual) 36.3 H Abs Monocytes (Manual) 1.6 H Absolute Eos (Manual) 1.2 H Est GFR ( Amer) 59 L Est GFR (Non-Af Amer) 49 L Glucose 245 H Direct Bilirubin 0.5 H Alkaline Phosphatase 243 H Total Protein 8.7 H Urine Protein 30 H Urine Glucose (UA) 50 H Urine Blood SMALL H Ur Leukocyte Esterase MODERATE H Discharge - Discharge Clinical Impression: Abdominal pain Qualifiers: Abdominal location: right lower quadrant Qualified Code(s): R10.31 - Right lower quadrant pain Leukocytosis Qualifiers: Leukocytosis type: unspecified Qualified Code(s): D72.829 - Elevated white blood cell count, unspecified Additional Instructions: Please take Metamucil every day to help prevent constipation. Please follow up with Dr. Mercer for further workup of your high white count. Discuss with him whether or not he feels you eventually need a bone marrow biopsy or if he feels there is anything further needed. Please return to the ER immediately if you have worsening pain, fevers, vomiting, or if you feel unwell. Referrals: RICKY MERCER MD [ACTIVE STAFF] - Follow up in 3-5 days JAVED GUERRIER MD [Primary Care Provider] - 05/27/17
[2017-05-25] MEDS ORDERED: NORMAL SALINE 500 ML IV ONE (22:22)
[2017-05-25 22:27] LABS: MEAN CORPUSCULAR VOLUME 63 fl (80-97); WHITE BLOOD COUNT 40.3 10^3/uL (4.0-10.5)
--- NOTE | 2017-05-26 00:32 | RADIOLOGY REPORT (SQ) ---
EXAM DESCRIPTION: CT ABD/PELVIS NO ORAL OR IV COMPLETED DATE/TIME: 05/25/2017 11:13 pm REASON FOR STUDY: RLQ abdominal pain, previous appendctomy COMPARISON: 05/12/2017. TECHNIQUE: CT scan of the abdomen and pelvis performed without intravenous or oral contrast. Images reviewed with lung, soft tissue, and bone windows. Reconstructed coronal and sagittal MPR images revi ewed. All images stored on PACS. All CT scanners at this facility use dose modulation, iterative reconstruction, and/or weight based d osing when appropriate to reduce radiation dose to as low as reasonably achievable (ALARA). [facility]: Dose Right [facility]: CareDose [facility]: Dose Right [facility]: Teradose 4D [facility]: Smart BEKIZ RADIATION DOSE: Up-to-date CT equipment and radiation dose reduction techniques were employed. CTDIv ol: 25.7 mGy. DLP: 1337 mGy-cm.mGy. LIMITATIONS: None. FINDINGS: LOWER CHEST: No significant findings. No nodules or infiltrates. Small hiatal hernia. Sm all coronary arterial calcification. NON-CONTRASTED LIVER, SPLEEN, ADRENALS: Evaluation limited by lack of IV contrast. No identified sign ificant masses. Moderate -severe splenomegaly includes a splenic index of 1434 cubic cm, chronic. PANCREAS: No masses. No peripancreatic inflammatory changes. GALLBLADDER: Likely small gallstone. RIGHT KIDNEY AND URETER: No suspicious masses. Assessment limited by lack of IV contrast. No signif icant calcifications. No hydronephrosis or hydroureter. 4 cm likely benign exophytic cyst of the r ight kidney not definitively characterized. Moderate perinephric fat stranding. LEFT KIDNEY AND URETER: No suspicious masses. Assessment limited by lack of IV contrast. No signifi cant calcifications. No hydronephrosis or hydroureter. Moderate perinephric fat stranding. AORTA AND RETROPERITONEUM: No aneurysm. No retroperitoneal masses or adenopathy. BOWEL AND PERITONEAL CAVITY: No obvious masses or inflammatory changes. No free fluid. Moderate colo nader diverticulosis. APPENDIX: Surgically absent. PELVIS, BLADDER, AND ABDOMINAL WALL:No abnormal masses. No free fluid. Bladder normal. Moderate prot ruberant anterior pelvic wall towards the right. Uterus is surgically absent. BONES: Moderate disc desiccation. Moderate disc bulges between the T12 and L3 levels. Grade 1 0.6 c m degenerate L4 anterolisthesis. OTHER: 2.5 cm likely subcutaneous noncalcified granuloma or epidermal cyst of the left paracentral ab domen not definitively characterized. IMPRESSION: No acute findings. Moderate to severe splenomegaly. Small cholelithiasis. COMMENT: Quality ID # [id number]: Final reports with documentation of one or more dose reduction techniques (e.g., Automated exposure control, adjustment of the mA and/or kV according to patient size, use of iterative reconstruction technique) TECHNICAL DOCUMENTATION: JOB ID: [id number] [employer]- All Rights Reserved
[2017-05-26 01:14] VITALS: BP 120/77
[2017-05-27 07:42] LABS: PATH REVIEW PATHOLOGIST REVIEWED
== END 2017-05-26 01:12 | disposition home or self-care (01) ==
LOC: ER 19:50
DX: R10.31 Right lower quadrant pain (principal); D72.829 Elevated white blood cell count, unspecified; I10 Essential (primary) hypertension; E11.9 Type 2 diabetes mellitus without complications; Z87.19 Personal history of other diseases of the digestive system; Z86.14 Personal history of Methicillin resistant Staphylococcus aureus infection; Z90.49 Acquired absence of other specified parts of digestive tract; Z90.710 Acquired absence of both cervix and uterus; Z86.711 Personal history of pulmonary embolism
CPT/HCPCS: 99284; 96361; 96374; 36415; 85025; 80053; 81001; 74176; J2270; J7040

== ENCOUNTER 2017-05-30 13:24 | Observation (INO) | payer MEDICARE, OTHER ==
[2017-05-30 14:33] LABS: HEMATOCRIT 47.3 % (36.0-47.0); HEMOGLOBIN 14.8 g/dL (12.0-15.5); HGB HCT DIFFERENCE -2.9; MEAN CORPUSCULAR HEMOGLOBIN 19.6 pg (27.0-33.4); MEAN CORPUSCULAR HGB CONC 31.3 g/dL (32.0-36.0); MEAN CORPUSCULAR VOLUME 63 fl (80-97); RED BLOOD COUNT 7.57 10^6/uL (3.72-5.28); RED CELL DISTRIBUTION WIDTH 22.1 % (11.5-14.0)
[2017-05-30 14:45] LABS: WHITE BLOOD COUNT 35.2 10^3/uL (4.0-10.5)
--- NOTE | 2017-05-30 14:50 | ER Document Report ---
ED General - General TRAVEL OUTSIDE OF THE [place] IN LAST 30 DAYS: No <AMANDA BLUNT - Last Filed: 05/30/17 21:05> <CHERIE MARSHALL - Last Filed: 05/30/17 22:41> - General Chief Complaint: Low Back Pain Stated Complaint: RT SIDE PAIN Time Seen by Provider: 05/30/17 14:10 - HPI Notes: Patient is an 82-year-old female who presents the ED with multiple complaints. Patient is complaining of an elephant sitting on her chest 6 hours. Patient states that she does have some intermittent shortness of breath as well. Patient states that she is still ambulatory at home with the use of a walker. The discomfort does not radiate. She has no sharp pains. The discomfort is a pressure/weight. Patient has a history of 2 strokes in the past and is currently being treated with Xarelto for a DVT in her left lower leg. Patient is currently taking Plavix and Xarelto. Patient denies any history of cardiac stents, ?MS. Patient is not sure of anything that worsens her pain or improves it. Patient states that she still eating and drinking without any difficulties. She is still urinating normally. Patient states that she does have constipation, w/o abdominal pain, and has not had a normal bowel movement since Tuesday. Patient has been taking some tramadol for pain and has been causing some constipation issues. Patient was evaluated 3 days ago and had an abdominal CT that was generally unremarkable. Patient denies any IV drug use. Patient states that she also is complete planing of right hip pain. Patient states that she notices more of the pain when she is ambulating and with pressure. Patient believes that the pain is to her right hip and will occasionally radiate down into the lateral part of the thigh. Patient is currently being treated for a contusion to her coccyx. No other concerns or complaints at this time. Denies any headache, fever, neck pain, URI, sore throat, palpitations, syncope, cough, wheeze, dyspnea, abd pain, nausea/vomiting /diarrhea, urinary retention, dysuria, hematuria, vaginal discharge/odor, back pain, loss of control of bowel or bladder, numbness/tingling, saddle anesthesia , muscle paralysis/weakness, or rash. (AMANDA BLUNT) - Related Data Allergies/Adverse Reactions: No Known Allergies Allergy (Verified 05/25/17 20:33) Past Medical History - Social History Smoking Status: Unknown if Ever Smoked Family History: CAD, COPD, DM, Hyperlipidemia, Hypertension, Malignancy - Father with lung cancer, Other - Past Medical History Cardiac Medical History: Reports: Hx Congestive Heart Failure - Diastolic, Hx Heart Attack - EKG suggests probable prior infarction, Hx Hypercholesterolemia, Hx Hypertension, Hx Pulmonary Embolism - Distant history Pulmonary Medical History: Denies: Hx Asthma, Hx COPD, Hx Sleep Apnea Neurological Medical History: Denies: Hx Seizures Endocrine Medical History: Reports: Hx Diabetes Mellitus Type 1, Hx Diabetes Mellitus Type 2. Denies: Hx Hyperthyroidism, Hx Hypothyroidism Renal/ Medical History: Denies: Hx End Stage Renal Disease, Hx Peritoneal Dialysis Malignancy Medical History: Reports: Hx Skin Cancer - Excised from her nose. GI Medical History: Reports: Hx Gastroesophageal Reflux Disease. Denies: Hx Cirrhosis, Hx Hepatitis Musculoskeltal Medical History: Reports Hx Arthritis, Reports Hx Musculoskeletal Deformity Skin Medical History: Denies Hx Eczema, Denies Hx Psoriasis Psychiatric Medical History: Reports: Hx Anxiety, Hx Depression Infectious Medical History: Reports: Hx MRSA - Quite distant history. Denies: Hx C-Diff, Hx Hepatitis Past Surgical History: Reports: Hx Abdominal Surgery, Hx Appendectomy, Hx Hysterectomy, Hx Tonsillectomy, Other - Cardiac loop recorder, bilateral cataract surgery - Immunizations Hx Diphtheria, Pertussis, Tetanus Vaccination: No Hx Pneumococcal Vaccination: 04/29/13 <AMANDA BLUNT - Last Filed: 05/30/17 21:05> Review of Systems <AMANDA BLUNT - Last Filed: 05/30/17 21:05> <CHERIE MARSHALL - Last Filed: 05/30/17 22:41> - Review of Systems Notes: REVIEW OF SYSTEMS: CONSTITUTIONAL : Denies fever, chills, or sweats. Denies recent illness. EENT: Denies eye, ear, throat, or mouth pain or symptoms. Denies nasal or sinus congestion or discharge. Denies throat, tongue, or mouth swelling or difficulty swallowing. CARDIOVASCULAR: see hpi RESPIRATORY: see hpi GASTROINTESTINAL: see hpi GENITOURINARY: Denies difficulty urinating, painful urination, burning, frequency, blood in urine, or discharge. MUSCULOSKELETAL: see hpi SKIN: Denies rash, lesions or sores. NEUROLOGICAL: Denies confusion or altered mental status. Denies passing out or loss of consciousness. Denies dizziness or lightheadedness. Denies headache. Denies weakness or paralysis or loss of use of either side. Denies problems with speech. Denies sensory loss, numbness, or tingling. ALL OTHER SYSTEMS REVIEWED AND NEGATIVE. Dictation was performed using [employer] voice recognition software (AMANDA BLUNT) Physical Exam <AMANDA BLUNT - Last Filed: 05/30/17 21:05> <CHERIE MARSHALL - Last Filed: 05/30/17 22:41> - Vital signs Vitals: Resp 15 05/30/17 13:45 Notes: PHYSICAL EXAMINATION: GENERAL: Well-appearing, well-nourished and in no acute distress. A&Ox4 HEAD: Atraumatic, normocephalic. EYES: Pupils equal round and reactive to light, extraocular movements intact, sclera anicteric, conjunctiva are normal. ENT: Nares patent and without discharge. oropharynx clear without exudates. No tonsilar hypertrophy or erythema. Moist mucous membranes. NECK: Normal range of motion, supple without lymphadenopathy. No rigidity. Chest: equal rise/fall. Non-tender. LUNGS: Breath sounds clear to auscultation bilaterally and equal. No wheezes rales or rhonchi. HEART: Regular rate and rhythm without murmurs, rubs, gallops. ABDOMEN: Soft, nontender, nondistended abdomen. No guarding, no rebound. No masses appreciated. Normal bowel sounds present. No CVA tenderness bilaterally. Musculoskeletal: LE's b/l: FROM to passive/active. Strength 5+/5. + tenderness to the rt Troch bursa (pt states that this tenderness elicited is the pain that she c/o). Extremities: No cyanosis, clubbing, or edema b/l. Peripheral pulses 2+. Capillary refill less than 3 seconds. NEUROLOGICAL: MMSE intact. Cranial nerves grossly intact. Normal speech. Normal sensory, motor exams PSYCH: Normal mood, normal affect. SKIN: Warm, Dry, normal turgor, no rashes or lesions noted. (AMANDA BLUNT) Course - Laboratory Result Diagrams: 05/30/17 14:06 05/30/17 16:37 <AMANDA BLUNT - Last Filed: 05/30/17 21:05> - Laboratory Result Diagrams: 05/30/17 14:06 05/30/17 16:37 <CHERIE MARSHALL - Last Filed: 05/30/17 22:41> - Re-evaluation Re-evalutation: 05/30/17 20:45 Patient is an afebrile, well-hydrated, 82-year-old female who presents to the ED with chest pressure, right trochanteric bursitis. Vitals are stable. PE is otherwise unremarkable. Patient is currently being treated for a DVT in the left lower extremity with Xarelto. With the chest symptoms and history of DVT, a CTA showed pulmonary nodule, ?airspace disease rt medial lung, continued small cholelithiasis, splenomegaly. Patient has had negative CBC, CMP, cardiac enzymes 2, EKG 2, urinalysis. pt has been counseled on her elevated WBC and need to f/u with oncology/hematology as she was eval'd in the ED 4 days ago. I did call and talk with Dr. del rio who will be in touch with this patient. Pt has a heart score of 5. Dr. Schaefer declined admission as she had a "negative cardiolite stress test 7mos ago and states that she needs to be seen in another hospital." Called [facility] for transfer. Reviewed again with Dr. Chacon who will discuss with Dr. Schaefer as we are not understanding the request for transfer vs CP Tele Obs. Dr. Schaefer continuing to decline the patient and refuses to evaluate the patient himself. Transferred to the care of [facility]. (AMANDA BLUNT) 05/30/17 21:29 took over the the pt. percocet given for the posterior right hip tenderness. she still has some chest discomfort, vitals stable, dr. hough now who called Dr. Schaefer who will be willing to admit the patient to telemetry observation of Dr. Medina agrees. I spoke with Dr. Medina twice and he called Dr. Schaefer back and Dr. Schaefer is now willing to admit the patient to telemetry observation. I have explained this to the pt and her family 05/30/17 21:33 (CHERIE MARSHALL) - Vital Signs Vital signs: Temp Pulse Resp BP Pulse Ox 15 162/80 H 95 05/30/17 20:29 05/30/17 20:29 05/30/17 20:29 - Laboratory Laboratory results interpreted by me: 05/30/17 05/30/17 05/30/17 14:06 14:06 16:20 WBC 35.2 H* RBC 7.57 H Hct 47.3 H MCV 63 L MCH 19.6 L MCHC 31.3 L RDW 22.1 H Seg Neuts % (Manual) 88 H Band Neutrophils % 2 L Lymphocytes % (Manual) 3 L Metamyelocytes % 1 H Abs Neuts (Manual) 32.0 H Abs Monocytes (Manual) 1.8 H PT 26.2 H APTT 56.9 H Carbon Dioxide Creatinine Est GFR ( Amer) Est GFR (Non-Af Amer) Total Bilirubin Direct Bilirubin Alkaline Phosphatase Creatine Kinase Urine Urobilinogen 2.0 H Ur Leukocyte Esterase TRACE H 05/30/17 16:37 WBC RBC Hct MCV MCH MCHC RDW Seg Neuts % (Manual) Band Neutrophils % Lymphocytes % (Manual) Metamyelocytes % Abs Neuts (Manual) Abs Monocytes (Manual) PT APTT Carbon Dioxide 32 H Creatinine 1.28 H Est GFR ( Amer) 48 L Est GFR (Non-Af Amer) 40 L Total Bilirubin 2.0 H Direct Bilirubin 0.7 H Alkaline Phosphatase 207 H Creatine Kinase 21 L Urine Urobilinogen Ur Leukocyte Esterase Discharge <AMANDA BLUNT - Last Filed: 05/30/17 21:05> - Discharge Admitting Provider: Hospitalist Unit Admitted: Telemetry <CHERIE MARSHALL - Last Filed: 05/30/17 22:41> - Discharge Clinical Impression: Posterior right hip pain, Chest pain Condition: Stable Disposition: ADMITTED OBSERVATION Referrals: JAVED GUERRIER MD [Primary Care Provider] - Follow up as needed
[2017-05-30 14:52] LABS: ANISOCYTOSIS 2+; BAND NEUTROPHILS % (MANUAL) 2 % (3-5); BASOPHILS % (MANUAL) 0 % (0-2); EOSINOPHILS % (MANUAL) 1 % (0-6); LYMPHOCYTES % (MANUAL) 3 % (13-45); MICROCYTOSIS 3+; TOTAL CELLS COUNTED 100; TOXIC VACUOLATION PRESENT
[2017-05-30 14:53] LABS: HYPOCHROMASIA SLIGHT; POLYCHROMASIA 1+
[2017-05-30 15:39] LABS: PROTHROMBIN TIME 26.2 SEC (11.4-15.4)
[2017-05-30 15:40] LABS: PARTIAL THROMBOPLASTIN TIME 56.9 SEC (23.5-35.8)
--- NOTE | 2017-05-30 15:58 | RADIOLOGY REPORT (SQ) ---
EXAM DESCRIPTION: ACUTE ABDOMEN SERIES COMPLETED DATE/TIME: 05/30/2017 3:47 pm REASON FOR STUDY: Chest pain constipation COMPARISON: 07/19/2016 NUMBER OF VIEWS: Three views. TECHNIQUE: Frontal chest, supine abdomen and upright/decubitus abdomen radiographic images acquired. LIMITATIONS: None. FINDINGS: CHEST: Lungs clear of infiltrates. FREE AIR: None. No abnormal gas collections. BOWEL GAS PATTERN: Nonobstructive pattern. No dilated loops or air fluid levels. CALCIFICATIONS: No suspicious calcifications. HARDWARE: None in the abdomen. SOFT TISSUES: No gross mass or suggestion of organomegaly. BONES: No acute fracture. No worrisome bone lesions. OTHER: No other significant finding. IMPRESSION: NO RADIOGRAPHIC EVIDENCE FOR ACUTE ABDOMINAL DISEASE. TECHNICAL DOCUMENTATION: JOB ID: [id number] [employer]- All Rights Reserved
[2017-05-30 16:52] LABS: ALANINE AMINOTRANSFERASE 24 U/L (9-52); ALBUMIN 4.2 g/dL (3.5-5.0); ALKALINE PHOSPHATASE 207 U/L (38-126); ANION GAP 8 (5-19); ASPARTATE AMINO TRANSFERASE 25 U/L (14-36); BILIRUBIN,DIRECT 0.7 mg/dL (0.0-0.4); BLOOD UREA NITROGEN 18 mg/dL (7-20); CALCIUM 9.5 mg/dL (8.4-10.2); CARBON DIOXIDE 32 mmol/L (22-30); CHLORIDE 104 mmol/L (98-107); CREATINE KINASE 21 U/L (30-135); CREATININE RESULT 1.28 mg/dL (0.52-1.25); GLUCOSE 91 mg/dL (75-110); POTASSIUM 4.2 mmol/L (3.6-5.0); SODIUM 144.1 mmol/L (137-145); TOTAL PROTEIN 8.1 g/dL (6.3-8.2)
[2017-05-30] MEDS ORDERED: NORMAL SALINE 1000 ML 1,000 ML IV ONE ×2 (17:18→21:51)
[2017-05-30 17:22] LABS: APPEARANCE,URINE CLEAR; BILIRUBIN,URINE NEGATIVE (NEGATIVE); GLUCOSE, URINE NEGATIVE (NEGATIVE); KETONES,URINE NEGATIVE (NEGATIVE); LEUKOCYTE ESTERASE,URINE TRACE (NEGATIVE); NITRITE,URINE NEGATIVE (NEGATIVE); PROTEIN,URINE NEGATIVE (NEGATIVE); URINE SPECIFIC GRAVITY 1.005
--- NOTE | 2017-05-30 19:02 | RADIOLOGY REPORT (SQ) ---
EXAM DESCRIPTION: CTA CHEST COMPLETED DATE/TIME: 05/30/2017 6:28 pm REASON FOR STUDY: on xarelto for DVT, chest pressure, sob COMPARISON: None. TECHNIQUE: CT scan of the chest performed using helical scanning technique with dynamic intravenous contrast injection. Images reviewed with lung, soft tissue and bone windows. Reconstructed coronal and sagittal MPR images reviewed. Additional 3 dimensional post-processing performed to develop Maximal Intensity Projection images (TX P). All images stored on PACS. All CT scanners at this facility use dose modulation, iterative reconstruction, and/or weight based d osing when appropriate to reduce radiation dose to as low as reasonably achievable (ALARA). [facility]: Dose Right [facility]: CareDose [facility]: Dose Right [facility]: Teradose 4D [facility]: [employer] CONTRAST TYPE AND DOSE: contrast/concentration: Isovue 370.00 mg/ml; Total Contrast Delivered: 77.0 ml; Total Saline Delivered: 100.1 ml Contrast bolus optimized for the pulmonary arteries. Not diagnostic for the aorta. RENAL FUNCTION: Creatinine 1.3 BUN 18 RADIATION DOSE: Up-to-date CT equipment and radiation dose reduction techniques were employed. CTDIv ol: 30.3 - 41.3 mGy. DLP: 1098 mGy-cm. . LIMITATIONS: None. FINDINGS: LUNGS AND PLEURA: 2 mm right upper lobe pulmonary nodule on image 15 series 4. On images 41 through 45 series 4 there is somewhat ill-defined opacification in the medial aspect of the right lung. AORTA AND GREAT VESSELS: No aneurysm. Contrast bolus not optimized for the aorta. HEART: No pericardial effusion. Moderate coronary artery calcifications. PULMONARY ARTERIES: No emboli visualized in the main pulmonary arteries or the segmental branches. HILAR AND MEDIASTINAL STRUCTURES: No identified masses or abnormal nodes. HARDWARE: None in the chest. UPPER ABDOMEN: The spleen is quite prominent. A small gallstone is present. THYROID AND OTHER SOFT TISSUES: No masses. No adenopathy. BONES: No acute or significant finding. 3D MIPS: Confirm above findings. OTHER: No other significant finding. IMPRESSION: 1. There is no evidence of pulmonary emboli. 2. Small right upper lobe pulmonary nodule. 3. There may be limited airspace disease right lung medially. 4. Splenomegaly is suggested. 5. A gallstone is present. COMMENT: Quality ID # [id number]: Final reports with documentation of one or more dose reduction techniques (e.g., Automated exposure control, adjustment of the mA and/or kV according to patient size, use of iterative reconstruction technique) TECHNICAL DOCUMENTATION: JOB ID: [id number] [employer]- All Rights Reserved
[2017-05-30] MEDS ORDERED: NITROGLYCERIN 0.4 MG/TAB 25 TAB/BOTTLE SL PRN ×2 (20:03→21:47)
[2017-05-30] MEDS ORDERED: NITROGLYCERIN 2% OINTMENT 1 GM PACKET TP ONE (20:37)
[2017-05-30] MEDS ORDERED: IPRATROPIUM/ALBUTEROL 0.5-2.5 MG/3 ML AMPUL NEB ONE (20:42)
[2017-05-30] MEDS ORDERED: OXYCODONE-ACETAMINOPHEN 5-325 MG TABLET PO ONE (21:04)
[2017-05-30] MEDS ORDERED: ASPIRIN 81 MG TABLET, CHEWABLE PO ONE (21:33)
[2017-05-30] MEDS ORDERED: TRAZODONE HCL 50 MG TABLET PO PRN (21:44)
[2017-05-30] MEDS ORDERED: METOPROLOL TARTRATE 100 MG TABLET PO SCH (21:45)
[2017-05-30] MEDS ORDERED: MORPHINE SULFATE 10 MG/ML INJ IV PRN (21:47)
[2017-05-30] MEDS ORDERED: LACTULOSE SYRUP 20 GM/30 ML UDCUP PO ONE (22:00)
[2017-05-30] MEDS: ATORVASTATIN CALCIUM 80 MG TABLET PO SCH (23:32)
[2017-05-30] MEDS: METOPROLOL TARTRATE 50 MG TABLET PO SCH (23:33)
[2017-05-30] MEDS: BUSPIRONE HCL 10 MG TABLET PO SCH (23:34)
[2017-05-30] MEDS: GABAPENTIN 300 MG CAPSULE PO SCH (23:34)
[2017-05-30] MEDS: RIVAROXABAN 10 MG TABLET PO SCH (23:35)
[2017-05-30] MEDS ORDERED: HYDRALAZINE HCL INJ/PF 20 MG/1 ML SDV IV PRN (23:52)
[2017-05-31] MEDS ORDERED: INFLUENZA ADLT QUAD (36MOS+) 2017-18 VAC 0.5 ML SYR IM PRN (01:32)
[2017-05-31 04:04] LABS: HEMATOCRIT 45.8 % (36.0-47.0); HEMOGLOBIN 14.3 g/dL (12.0-15.5); HGB HCT DIFFERENCE -2.9; MEAN CORPUSCULAR HEMOGLOBIN 19.5 pg (27.0-33.4); MEAN CORPUSCULAR HGB CONC 31.3 g/dL (32.0-36.0); MEAN CORPUSCULAR VOLUME 62 fl (80-97); RED CELL DISTRIBUTION WIDTH 21.8 % (11.5-14.0); WHITE BLOOD COUNT 29.8 10^3/uL (4.0-10.5)
[2017-05-31 04:06] LABS: RED BLOOD COUNT 7.34 10^6/uL (3.72-5.28)
[2017-05-31 04:20] LABS: ANION GAP 8 (5-19); BLOOD UREA NITROGEN 16 mg/dL (7-20); CALCIUM 9.2 mg/dL (8.4-10.2); CARBON DIOXIDE 27 mmol/L (22-30); CHLORIDE 108 mmol/L (98-107); CHOLESTEROL 63.19 mg/dL (0-200); CREATININE RESULT 0.97 mg/dL (0.52-1.25); Direct HDL 23 mg/dL (>40); GLUCOSE 136 mg/dL (75-110); POTASSIUM 3.8 mmol/L (3.6-5.0); SODIUM 142.7 mmol/L (137-145); TRIGLYCERIDES 163 mg/dL (<150)
[2017-05-31 04:23] LABS: BAND NEUTROPHILS % (MANUAL) 2 % (3-5); BASOPHILS % (MANUAL) 1 % (0-2); EOSINOPHILS % (MANUAL) 0 % (0-6); LYMPHOCYTES % (MANUAL) 1 % (13-45); TOTAL CELLS COUNTED 100
[2017-05-31 04:24] LABS: TOXIC VACUOLATION PRESENT
[2017-05-31 04:31] LABS: ANISOCYTOSIS 3+; HYPOCHROMASIA 1+; MICROCYTOSIS 3+; OVALOCYTES 1+; POIKILOCYTOSIS 1+; POLYCHROMASIA SLIGHT
[2017-05-31 04:32] LABS: PLATELET CLUMPS PRESENT; TARGET CELLS SLIGHT; TEAR DROP CELLS SLIGHT
[2017-05-31 04:41] LABS: CREATINE KINASE MB 0.64 ng/mL (<4.55)
[2017-05-31 04:43] LABS: CREATINE KINASE < 20 U/L (30-135); DIRECT LDL < 30 mg/dL (<100); TROPONIN I < 0.012 ng/mL; VLDL CHOLESTEROL 32.6 mg/dL (10-31)
--- NOTE | 2017-05-31 04:45 | EKG REPORT ---
SEVERITY:- ABNORMAL ECG - SINUS RHYTHM BORDERLINE LEFT AXIS DEVIATION CONSIDER ANTEROSEPTAL INFARCT BORDERLINE PROLONGED QT INTERVAL : Confirmed by: Seble Miguel MD 31-May-2017 04:30:31
--- NOTE | 2017-05-31 04:46 | EKG REPORT ---
SEVERITY:- NORMAL ECG - SINUS RHYTHM : Confirmed by: Seble Miguel MD 31-May-2017 04:30:22
--- NOTE | 2017-05-31 05:58 | PDOC H&P ---
History of Present Illness Admission Date/PCP: 05/30/17 21:47 JAVED GUERRIER MD Patient complains of: Right lower quadrant pain History of Present Illness: ORACIO PEDROZA is a 82 year old female with a past medical history of hypertension, congestive heart failure, diabetes, coronary artery disease, and chronically elevated white blood cell count. He has had approximately 2 days of 3 out of 5 intensity dull pressure-like pain to her right lower quadrant associated with nausea vomiting. She denies new medications, fever or exceptional constipation. In the emergency room she gives a history of chest pain in an effort to expedite admission process denying its presence. In the emergency room she is found to have a remarkable workup for a white blood cell count of 35, a unremarkable CT of the chest. There is referred to the hospitalist for admission. She has had remote workup of leukocytosis without definitive diagnosis. Past Medical History Cardiac Medical History: Reports: Congestive Heart Failure - Diastolic, Myocardial Infarction - EKG suggests probable prior infarction, Hyperlipidema, Hypertension, Pulmonary Embolism - Distant history Pulmonary Medical History: Denies: Asthma, Chronic Obstructive Pulmonary Disease (COPD), Sleep Apnea Neurological Medical History: Denies: Seizures Endocrine Medical History: Reports: Diabetes Mellitus Type 1, Diabetes Mellitus Type 2 Denies: Hyperthyroidism, Hypothyroidism Renal/ Medical History: Denies: End Stage Renal Disease Malignancy Medical History: Reports: Skin Cancer - Excised from her nose. 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 Denies: Clostridium Difficile Past Surgical History Past Surgical History: Reports: Appendectomy, Hysterectomy, Tonsillectomy, Other - Cardiac loop recorder, bilateral cataract surgery Social History Information Source: Patient Smoking Status: Never Smoker Frequency of Alcohol Use: None Hx Recreational Drug Use: No Drugs: None Hx Prescription Drug Abuse: No - Advance Directive Resuscitation Status: Full Code Family History Family History: CAD, COPD, DM, Hyperlipidemia, Hypertension, Malignancy - Father with lung cancer, Other Parental Family History Reviewed: Yes Children Family History Reviewed: Yes Sibling(s) Family History Reviewed.: Yes Medication/Allergy Home Medications: Aspirin [Aspirin EC] 81 mg PO DAILY 03/14/17 Buspirone HCl [Buspar 10 mg Tablet] 15 mg PO Q12 03/14/17 Clopidogrel Bisulfate [Plavix 75 mg Tablet] 75 mg PO DAILY 03/14/17 Docusate Sodium [Colace 100 mg Capsule] 100 mg PO BID 03/14/17 Gabapentin [Neurontin 300 mg Capsule] 300 mg PO Q12 03/14/17 Glimepiride [Amaryl 1 mg Tablet] 2 mg PO BIDBS 03/14/17 Isosorbide Mononitrate [Isosorbide Mononitrate ER] 30 mg PO DAILY 03/14/17 Pantoprazole Sodium [Protonix] 40 mg PO DAILY 03/14/17 Rosuvastatin Calcium [Crestor] 40 mg PO DAILY 03/14/17 Sitagliptin Phosphate [Januvia] 100 mg PO DAILY 03/14/17 Trazodone HCl [Desyrel 50 mg Tablet] 50 mg PO HSP PRN 03/14/17 Insulin Aspart [Novolog Flexpen] 0 unit SUBCUT .SLD SCALE 05/15/17 Insulin NPH Hum/Reg Insulin Hm [Novolin 70-30 100 Unit/ml Vial] 65 unit SQ BID 05/15/17 Losartan Potassium [Cozaar 50 mg Tablet] 25 mg PO DAILY 05/15/17 Metoprolol Tartrate 50 mg PO Q12H 05/15/17 Rivaroxaban [Xarelto 10 mg Tablet] 20 mg PO DAILY 05/15/17 Allergies/Adverse Reactions: No Known Allergies Allergy (Verified 05/25/17 20:33) Review of Systems Constitutional: ABSENT: chills, fever(s), headache(s), weight gain, weight loss Eyes: ABSENT: visual disturbances Ears: ABSENT: hearing changes Cardiovascular: ABSENT: chest pain, dyspnea on exertion, edema, orthropnea, palpitations Respiratory: ABSENT: cough, hemoptysis Gastrointestinal: ABSENT: abdominal pain, constipation, diarrhea, hematemesis, hematochezia, nausea, vomiting Genitourinary: ABSENT: dysuria, hematuria Musculoskeletal: ABSENT: joint swelling Integumentary: ABSENT: rash, wounds Neurological: ABSENT: abnormal gait, abnormal speech, confusion, dizziness, focal weakness, syncope Psychiatric: ABSENT: anxiety, depression, homidical ideation, suicidal ideation Endocrine: ABSENT: cold intolerance, heat intolerance, polydipsia, polyuria Hematologic/Lymphatic: ABSENT: easy bleeding, easy bruising Physical Exam Vital Signs: Temp Pulse Resp BP Pulse Ox 98.6 F 88 17 110/48 L 98 05/31/17 02:32 05/31/17 02:32 05/31/17 02:32 05/31/17 02:32 05/31/17 02:32 Intake & Output 05/29/17 05/30/17 05/31/17 11:59 11:59 11:59 Weight 99 kg General appearance: PRESENT: cooperative, mild distress, morbidly obese Head exam: PRESENT: atraumatic, normocephalic Eye exam: PRESENT: conjunctiva pink, EOMI, PERRLA. ABSENT: scleral icterus Ear exam: PRESENT: normal external ear exam Mouth exam: PRESENT: moist, tongue midline Neck exam: ABSENT: carotid bruit, JVD, lymphadenopathy, thyromegaly Respiratory exam: PRESENT: clear to auscultation carmen. ABSENT: rales, rhonchi, wheezes Cardiovascular exam: PRESENT: RRR. ABSENT: diastolic murmur, rubs, systolic murmur Pulses: PRESENT: normal dorsalis pedis pul Vascular exam: PRESENT: normal capillary refill GI/Abdominal exam: PRESENT: ascites, distended, hernia, hypoactive bowel sounds , organolmegaly, tenderness. ABSENT: firm, guarding Rectal exam: PRESENT: deferred Extremities exam: PRESENT: full ROM. ABSENT: calf tenderness, clubbing, pedal edema Neurological exam: PRESENT: alert, awake, oriented to person, oriented to place , oriented to time, oriented to situation, CN II-XII grossly intact. ABSENT: motor sensory deficit Psychiatric exam: PRESENT: appropriate affect, normal mood. ABSENT: homicidal ideation, suicidal ideation Skin exam: PRESENT: dry, intact, warm. ABSENT: cyanosis, rash Results Laboratory Results: 05/31/17 03:54 05/31/17 03:54 05/31/17 05/31/17 03:54 03:54 WBC 29.8 H RBC 7.34 H Hgb 14.3 Hct 45.8 MCV 62 L MCH 19.5 L MCHC 31.3 L RDW 21.8 H Plt Count 275 Seg Neutrophils % Not Reportable Lymphocytes % Not Reportable Monocytes % Not Reportable Eosinophils % Not Reportable Basophils % Not Reportable Absolute Neutrophils Not Reportable Absolute Lymphocytes Not Reportable Absolute Monocytes Not Reportable Absolute Eosinophils Not Reportable Absolute Basophils Not Reportable Sodium 142.7 Potassium 3.8 Chloride 108 H Carbon Dioxide 27 Anion Gap 8 BUN 16 Creatinine 0.97 Est GFR ( Amer) > 60 Est GFR (Non-Af Amer) 55 L Glucose 136 H Calcium 9.2 Triglycerides 163 H Cholesterol 63.19 LDL Cholesterol Direct < 30 VLDL Cholesterol 32.6 H HDL Cholesterol 23 L 05/30/17 05/30/17 05/31/17 22:55 23:00 03:54 Creatine Kinase CK-MB (CK-2) 0.76 0.64 Troponin I Cancelled < 0.012 05/31/17 03:54 Creatine Kinase < 20 L CK-MB (CK-2) Troponin I Impressions: Acute Abdomen Series 05/30/17 14:43 IMPRESSION: NO RADIOGRAPHIC EVIDENCE FOR ACUTE ABDOMINAL DISEASE. Chest/Abdomen CTA 05/30/17 17:33 IMPRESSION: 1. There is no evidence of pulmonary emboli. 2. Small right upper lobe pulmonary nodule. 3. There may be limited airspace disease right lung medially. 4. Splenomegaly is suggested. 5. A gallstone is present. Assessment & Plan - Diagnosis (1) Abdominal pain Is this a current diagnosis for this admission?: Yes Plan: Acute on chronic concern for lymphoma or ovarian malignancy given partial hysterectomy history, ascites and tenderness. Will obtain contrasted CT abdomen pelvis. (2) Leukocytosis Qualifiers: Is this a current diagnosis for this admission?: Yes Plan: Please see #1, hematology, oncology consult (3) Type 2 diabetes mellitus with hyperglycemia Qualifiers: Is this a current diagnosis for this admission?: Yes Plan: Home regiment with sliding scale. - Time Time Spent: 50 to 70 Minutes
[2017-05-31] MEDS: LANSOPRAZOLE 30 MG TAB.RAP.DR PO SCH (06:06)
--- NOTE | 2017-05-31 08:20 | PDOC CONSULTATION ---
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 Every time she is hospitalized she has a leukocytosis with a white count going up to 40-50,000, primarily neutrophilia. On 1 of the admission several months ago, I did do an extensive workup for the leukocytosis, including flow cytometry for leukemia lymphoma panel as well as FISH for BCR abl looking for chronic myelogenous leukemia. All of this is negative, essentially ruling out a leukemic or lymphoma-like process. Of note on this admission she had a CTA of the chest, and this indicates some sort of subcentimeter pulmonary nodules, there are less than 5 mm, the read of the CT says there is no comparison done but there are multiple CTs in the system, I reviewed some of the previous CTs and I believe probably this nodularity was there but I would like to confirm that with radiology. Regardless, because there is subcentimeter, they would not show up on PET/CT and they're unlikely to be a cancer process. Past Medical History Cardiac Medical History: Reports: Congestive Heart Failure - Diastolic, Myocardial Infarction - EKG suggests probable prior infarction, Hyperlipidema, Hypertension, Pulmonary Embolism - Distant history Pulmonary Medical History: Denies: Asthma, Chronic Obstructive Pulmonary Disease (COPD), Sleep Apnea Neurological Medical History: Denies: Seizures Endocrine Medical History: Reports: Diabetes Mellitus Type 1, Diabetes Mellitus Type 2 Denies: Hyperthyroidism, Hypothyroidism Renal/ Medical History: Denies: End Stage Renal Disease Malignancy Medical History: Reports: Skin Cancer - Excised from her nose. 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 Denies: Clostridium Difficile Past Surgical History Past Surgical History: Reports: Appendectomy, Hysterectomy, Tonsillectomy, Other - Cardiac loop recorder, bilateral cataract surgery Social History Smoking Status: Never Smoker Frequency of Alcohol Use: None Hx Recreational Drug Use: No Drugs: None Hx Prescription Drug Abuse: No - Advance Directive Resuscitation Status: Full Code Family History Family History: CAD, COPD, DM, Hyperlipidemia, Hypertension, Malignancy - Father with lung cancer, Other Parental Family History Reviewed: Yes Children Family History Reviewed: Yes Sibling(s) Family History Reviewed.: Yes Medication/Allergy Home Medications: Aspirin [Aspirin EC] 81 mg PO DAILY 03/14/17 Buspirone HCl [Buspar 10 mg Tablet] 15 mg PO Q12 03/14/17 Clopidogrel Bisulfate [Plavix 75 mg Tablet] 75 mg PO DAILY 03/14/17 Docusate Sodium [Colace 100 mg Capsule] 100 mg PO BID 03/14/17 Gabapentin [Neurontin 300 mg Capsule] 300 mg PO Q12 03/14/17 Glimepiride [Amaryl 1 mg Tablet] 2 mg PO BID 03/14/17 Isosorbide Mononitrate [Isosorbide Mononitrate ER] 30 mg PO DAILY 03/14/17 Pantoprazole Sodium [Protonix] 40 mg PO DAILY 03/14/17 Rosuvastatin Calcium [Crestor] 40 mg PO DAILY 03/14/17 Sitagliptin Phosphate [Januvia] 100 mg PO DAILY 03/14/17 Trazodone HCl [Desyrel 50 mg Tablet] 50 mg PO HSP PRN 03/14/17 Insulin Aspart [Novolog Flexpen] 0 unit SUBCUT .SLD SCALE 05/15/17 Insulin NPH Hum/Reg Insulin Hm [Novolin 70-30 100 Unit/ml Vial] 65 unit SQ BID 05/15/17 Losartan Potassium [Cozaar 50 mg Tablet] 25 mg PO DAILY 05/15/17 Metoprolol Tartrate 50 mg PO Q12 05/15/17 Rivaroxaban [Xarelto 10 mg Tablet] 20 mg PO DAILY 05/15/17 Allergies/Adverse Reactions: No Known Allergies Allergy (Verified 05/25/17 20:33) Review of Systems ROS unobtainable: Due to mental status Physical Exam Vital Signs: Temp Pulse Resp BP Pulse Ox 98.6 F 88 17 110/48 L 98 05/31/17 02:32 05/31/17 02:32 05/31/17 02:32 05/31/17 02:32 05/31/17 02:32 Intake & Output 05/30/17 05/31/17 06/01/17 06:59 06:59 06:59 Intake Total 782 Balance 782 Weight 98.9 kg General appearance: PRESENT: no acute distress, well-developed, well-nourished Head exam: PRESENT: atraumatic, normocephalic Eye exam: PRESENT: conjunctiva pink, EOMI, PERRLA. ABSENT: scleral icterus Ear exam: PRESENT: normal external ear exam Mouth exam: PRESENT: moist, tongue midline Neck exam: ABSENT: carotid bruit, JVD, lymphadenopathy, thyromegaly Respiratory exam: PRESENT: clear to auscultation carmen. ABSENT: rales, rhonchi, wheezes Cardiovascular exam: PRESENT: RRR. ABSENT: diastolic murmur, rubs, systolic murmur Pulses: PRESENT: normal dorsalis pedis pul Vascular exam: PRESENT: normal capillary refill GI/Abdominal exam: PRESENT: normal bowel sounds, soft. ABSENT: distended, guarding, mass, organolmegaly, rebound, tenderness Rectal exam: PRESENT: deferred Extremities exam: PRESENT: full ROM. ABSENT: calf tenderness, clubbing, pedal edema Neurological exam: PRESENT: alert, awake, oriented to person, oriented to place , oriented to time, oriented to situation, CN II-XII grossly intact. ABSENT: motor sensory deficit Psychiatric exam: PRESENT: appropriate affect, normal mood. ABSENT: homicidal ideation, suicidal ideation Skin exam: PRESENT: dry, intact, warm. ABSENT: cyanosis, rash Results Laboratory Results: 05/31/17 03:54 05/31/17 03:54 05/31/17 05/31/17 03:54 03:54 WBC 29.8 H RBC 7.34 H Hgb 14.3 Hct 45.8 MCV 62 L MCH 19.5 L MCHC 31.3 L RDW 21.8 H Plt Count 275 Seg Neutrophils % Not Reportable Lymphocytes % Not Reportable Monocytes % Not Reportable Eosinophils % Not Reportable Basophils % Not Reportable Absolute Neutrophils Not Reportable Absolute Lymphocytes Not Reportable Absolute Monocytes Not Reportable Absolute Eosinophils Not Reportable Absolute Basophils Not Reportable Sodium 142.7 Potassium 3.8 Chloride 108 H Carbon Dioxide 27 Anion Gap 8 BUN 16 Creatinine 0.97 Est GFR ( Amer) > 60 Est GFR (Non-Af Amer) 55 L Glucose 136 H Calcium 9.2 Triglycerides 163 H Cholesterol 63.19 LDL Cholesterol Direct < 30 VLDL Cholesterol 32.6 H HDL Cholesterol 23 L 05/30/17 05/30/17 05/31/17 22:55 23:00 03:54 Creatine Kinase CK-MB (CK-2) 0.76 0.64 Troponin I Cancelled < 0.012 05/31/17 03:54 Creatine Kinase < 20 L CK-MB (CK-2) Troponin I Impressions: Acute Abdomen Series 05/30/17 14:43 IMPRESSION: NO RADIOGRAPHIC EVIDENCE FOR ACUTE ABDOMINAL DISEASE. Chest/Abdomen CTA 05/30/17 17:33 IMPRESSION: 1. There is no evidence of pulmonary emboli. 2. Small right upper lobe pulmonary nodule. 3. There may be limited airspace disease right lung medially. 4. Splenomegaly is suggested. 5. A gallstone is present. Status: Image reviewed by me Assessment & Plan - Diagnosis (1) Leukocytosis Qualifiers: Leukocytosis type: leukemoid reaction Qualified Code(s): D72.823 - Leukemoid reaction Is this a current diagnosis for this admission?: Yes Plan: Most likely leukemoid reaction, previous workup has been negative for malignancy process, no further workup needed for this. She will be persistently having leukocytosis most likely for the rest of her life, because she is chronically inflamed and infected. (2) Solitary pulmonary nodule on lung CT Is this a current diagnosis for this admission?: Yes Plan: Patient has a subcentimeter pulmonary nodules, I do not believe any further workup needed for this at this point, I believe these probably of been there before on previous imaging, will confirm with radiology. - Time Time Spent: Greater than 70 Minutes Critical Time spent with patient: 35 or more minutes - Inpatient Certification Based on my medical assessment, after consideration of the patient's comorbidities, presenting symptoms, or acuity I expect that the services needed warrant INPATIENT care.: Yes I certify that my determination is in accordance with my understanding of Medicare's requirements for reasonable and necessary INPATIENT services [42 CFR 412.3e].: Yes Medical Necessity: Need for IV Antibiotics
[2017-05-31] MEDS ORDERED: LOSARTAN POTASSIUM 50 MG TABLET PO SCH (10:00)
[2017-05-31] MEDS ORDERED: LOSARTAN POTASSIUM 25 MG TABLET PO SCH (10:00)
[2017-05-31] MEDS ORDERED: (PENDING PHARMACY ID) (Rosuvastatin Calcium [Crestor] 40 MG) PO SCH (10:00)
[2017-05-31] MEDS: BUSPIRONE HCL 10 MG TABLET PO SCH ×2 (10:16→21:20)
[2017-05-31] MEDS: ISOSORBIDE MONONITRATE 30 MG TAB.ER.24H PO SCH (10:16)
[2017-05-31] MEDS: GABAPENTIN 300 MG CAPSULE PO SCH ×2 (10:17→21:20)
[2017-05-31] MEDS: DOCUSATE SODIUM 100 MG CAPSULE PO SCH ×2 (10:17→17:20)
[2017-05-31] MEDS: METOPROLOL TARTRATE 50 MG TABLET PO SCH ×2 (10:17→21:20)
[2017-05-31] MEDS: ASPIRIN 81 MG TABLET, ENT COATED PO SCH (10:17)
[2017-05-31] MEDS: HUM INSULIN NPH/REG INSULIN HM 100 UNIT/1 ML 3 ML SUBCUT SCH ×2 (10:18→21:12)
[2017-05-31 10:57] LABS: TROPONIN I < 0.012 ng/mL
[2017-05-31] MEDS ORDERED: DEXTROSE 40% GEL 15 GM TUBE PO PRN ×2 (11:25)
[2017-05-31] MEDS ORDERED: DEXTROSE 50%-WATER 25 GM/50 ML DISP.SYRIN IV PRN ×2 (11:25)
[2017-05-31] MEDS ORDERED: GLUCAGON,HUMAN RECOMB 1 MG INJ IM PRN (11:25)
[2017-05-31] MEDS ORDERED: INSULIN LISPRO 100 UNIT/ML 3 ML VIAL SUBCUT PRN (11:25)
--- NOTE | 2017-05-31 11:37 | PDOC CONSULTATION ---
Consultation Consult Date: 05/31/17 Attending physician:: LIA OLMOS Consult reason:: Chest pain History of Present Illness Admission Date/PCP: 05/30/17 21:47 JAVED GUERRIER MD Patient complains of: Chest pain History of Present Illness: ORACIO PEDROZA is a 82 year old female with a past medical history of hypertension, congestive heart failure, diabetes, coronary artery disease, and chronically elevated white blood cell count. He has had approximately 2 days of 3 out of 5 intensity dull pressure-like pain to her right lower quadrant associated with nausea vomiting. She denies new medications, fever or exceptional constipation. In the emergency room she gives a history of chest pain. Patient describes that she had several hours worth of chest pressure like an elephant sitting on her chest. Yet her cardiac enzymes has been negative. She had a negative stress test just about 6 months ago. In the emergency room she is found to have a remarkable workup for a white blood cell count of 35, a unremarkable CT of the chest. This morning patient is denying any chest pain. She does not have any EKG changes. This history was reviewed, confirmed and supplemented. Past Medical History Cardiac Medical History: Reports: Congestive Heart Failure - Diastolic, Myocardial Infarction - EKG suggests probable prior infarction, Hyperlipidema, Hypertension, Pulmonary Embolism - Distant history Pulmonary Medical History: Denies: Asthma, Chronic Obstructive Pulmonary Disease (COPD), Sleep Apnea Neurological Medical History: Denies: Seizures Endocrine Medical History: Reports: Diabetes Mellitus Type 1, Diabetes Mellitus Type 2 Denies: Hyperthyroidism, Hypothyroidism Renal/ Medical History: Denies: End Stage Renal Disease Malignancy Medical History: Reports: Skin Cancer - Excised from her nose. 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 Denies: Clostridium Difficile Past Surgical History Past Surgical History: Reports: Appendectomy, Hysterectomy, Tonsillectomy, Other - Cardiac loop recorder, bilateral cataract surgery Social History Information Source: Patient Smoking Status: Never Smoker Frequency of Alcohol Use: None Hx Recreational Drug Use: No Drugs: None Hx Prescription Drug Abuse: No - Advance Directive Resuscitation Status: Full Code Family History Family History: CAD, COPD, DM, Hyperlipidemia, Hypertension, Malignancy - Father with lung cancer, Other Parental Family History Reviewed: Yes Children Family History Reviewed: Yes Sibling(s) Family History Reviewed.: Yes Medication/Allergy Home Medications: Aspirin [Aspirin EC] 81 mg PO DAILY 03/14/17 Buspirone HCl [Buspar 10 mg Tablet] 15 mg PO Q12 03/14/17 Clopidogrel Bisulfate [Plavix 75 mg Tablet] 75 mg PO DAILY 03/14/17 Docusate Sodium [Colace 100 mg Capsule] 100 mg PO BID 03/14/17 Gabapentin [Neurontin 300 mg Capsule] 300 mg PO Q12 03/14/17 Glimepiride [Amaryl 1 mg Tablet] 2 mg PO BID 03/14/17 Isosorbide Mononitrate [Isosorbide Mononitrate ER] 30 mg PO DAILY 03/14/17 Pantoprazole Sodium [Protonix] 40 mg PO DAILY 03/14/17 Rosuvastatin Calcium [Crestor] 40 mg PO DAILY 03/14/17 Sitagliptin Phosphate [Januvia] 100 mg PO DAILY 03/14/17 Trazodone HCl [Desyrel 50 mg Tablet] 50 mg PO HSP PRN 03/14/17 Insulin Aspart [Novolog Flexpen] 0 unit SUBCUT .SLD SCALE 05/15/17 Insulin NPH Hum/Reg Insulin Hm [Novolin 70-30 100 Unit/ml Vial] 65 unit SQ BID 05/15/17 Losartan Potassium [Cozaar 50 mg Tablet] 25 mg PO DAILY 05/15/17 Metoprolol Tartrate 50 mg PO Q12 05/15/17 Rivaroxaban [Xarelto 10 mg Tablet] 20 mg PO DAILY 05/15/17 Flu Vacc [id number] 36Mos Up/Pf [Fluzone Adlt Quad [id number] Vac 0.5 ml Syr] 0.5 ml IM .DISCHARGE PRN disp.syrin 06/01/17 Allergies/Adverse Reactions: morphine Allergy (Verified 05/31/17 16:43) Review of Systems Review of Systems: Please see history of present illness and past medical history as wall. Constitutional: No fever or chills reported. Head : No recent chronic headaches, recent head injury. Eyes: No recent eye pain, diplopia, redness, discharge, acute visual changes. Ears: No recent chronic ear pain, acute hearing loss, ear discharge. Oral cavity: No recent ulcerations, bleeding, oral cavity discomfort. Neck: No recent acute neck pain reported. Hematologic: No recent easy bruising or bleeding or hematologic malignancy reported. Lymphatic: No recent lymphatic malignancy, chronic lymphadenopathy reported yet Cardiovascular system review: See history of present illness. Respiratory system review: No recent chronic cough, hemoptysis, blood clots in the lungs reported. Mild Shortness of breath on exertion Gastrointestinal system review: Negative for any recent acute or chronic abdominal pain, hematemesis, melena, recent change in bowel habits. History of gastroesophageal reflux disease. Genitourinary system review: No recent acute or chronic hematuria, flank pain, history of recurrent UTI reported. Skin system review: Negative for any recent abnormal bruising, no rash, no pruritus reported. Neurologic: No prior history of strokes, mini strokes, seizure disorder. Psychologic: No history of major psychosis or major depression reported. Musculoskeletal: Minor aches and pains reported. No acute joint swelling reported. Endocrine: No recent polyuria, polydipsia, recent heat or cold intolerance. Physical Exam Vital Signs: Temp Pulse Resp BP Pulse Ox 97.6 F 81 17 169/89 H 97 05/31/17 07:51 05/31/17 07:51 05/31/17 02:32 05/31/17 07:51 05/31/17 07:51 Intake & Output 05/30/17 05/31/17 06/01/17 06:59 06:59 06:59 Intake Total 782 Balance 782 Weight 98.9 kg Exam: GENERAL: well-nourished and in no acute distress. Alert and oriented x3 HEAD: Atraumatic, normocephalic. EYES: Pupils equal round and reactive to light, extraocular movements intact, sclera anicteric, conjunctiva are normal. ENT: TMs normal, nares patent, oropharynx clear without exudates. Moist mucous membranes. No oral ulcerations or bleeding gums noted NECK: supple without lymphadenopathy. Trachea is central. No cervical or axillary lymphadenopathy noted. Carotids are 2+, JVD WNL LUNGS: Respiration seems nonlabored, no significant accessory muscle action noted. Breath sounds clear to auscultation bilaterally and equal noted. No wheezes rales or rhonchi noted. No significant dullness noted on percussion. CHEST: Palpation of the chest wall shows mild diffuse chest wall tenderness. No other significant abnormalities noted. HEART: [place] JACK SETTER, No PSH, 1/6 VIRAL aortic area, 1/6 p[place] systolic murmur mitral area, no rubs, no gallops. ABDOMEN: Soft, no significant tenderness appreciated, normoactive bowel sounds. No guarding, no rebound. No rigidity noted . No masses appreciated. EXTREMITIES: Pedal pulses are 1-2+, no calf tenderness noted. No clubbing or cyanosis.trace to 1+ pedal edema noted NEUROLOGICAL: Focused neurological exam showed no significant neurologic deficit. Normal speech, no focal weakness appreciated. PSYCH: Normal mood, normal affect. Judgment and insight within normal limits. SKIN: No significant ecchymosis, rash, ulcerations or signs of pruritus noted. MUSCULOSKELETAL EXAM: No significant joint swelling noted. Results Laboratory Results: 05/31/17 03:54 05/31/17 03:54 05/31/17 05/31/17 03:54 03:54 WBC 29.8 H RBC 7.34 H Hgb 14.3 Hct 45.8 MCV 62 L MCH 19.5 L MCHC 31.3 L RDW 21.8 H Plt Count 275 Seg Neutrophils % Not Reportable Lymphocytes % Not Reportable Monocytes % Not Reportable Eosinophils % Not Reportable Basophils % Not Reportable Absolute Neutrophils Not Reportable Absolute Lymphocytes Not Reportable Absolute Monocytes Not Reportable Absolute Eosinophils Not Reportable Absolute Basophils Not Reportable Sodium 142.7 Potassium 3.8 Chloride 108 H Carbon Dioxide 27 Anion Gap 8 BUN 16 Creatinine 0.97 Est GFR ( Amer) > 60 Est GFR (Non-Af Amer) 55 L Glucose 136 H Calcium 9.2 Triglycerides 163 H Cholesterol 63.19 LDL Cholesterol Direct < 30 VLDL Cholesterol 32.6 H HDL Cholesterol 23 L 05/30/17 05/30/17 05/31/17 22:55 23:00 03:54 Creatine Kinase CK-MB (CK-2) 0.76 0.64 Troponin I Cancelled < 0.012 05/31/17 05/31/17 03:54 10:12 Creatine Kinase < 20 L CK-MB (CK-2) 0.90 Troponin I < 0.012 EKG Comments: Sinus rhythm, QS complex noted in V1 and V2 suggestive of probable septal SD versus lead placement abnormality. Impressions: Acute Abdomen Series 05/30/17 14:43 IMPRESSION: NO RADIOGRAPHIC EVIDENCE FOR ACUTE ABDOMINAL DISEASE. Chest/Abdomen CTA 05/30/17 17:33 IMPRESSION: 1. There is no evidence of pulmonary emboli. 2. Small right upper lobe pulmonary nodule. 3. There may be limited airspace disease right lung medially. 4. Splenomegaly is suggested. 5. A gallstone is present. Assessment & Plan - Diagnosis (1) Chest pain Qualifiers: Chest pain type: unspecified Qualified Code(s): R07.9 - Chest pain, unspecified Is this a current diagnosis for this admission?: Yes (2) Anxiety and depression Is this a current diagnosis for this admission?: Yes (3) CAD (coronary artery disease) Qualifiers: Coronary Disease-Associated Artery/Lesion type: [place] artery [place] vs. transplanted heart: [place] heart Associated angina: without angina Qualified Code(s): I25.10 - Atherosclerotic heart disease of [place] coronary artery without angina pectoris (4) Diabetes mellitus type II, controlled Qualifiers: Diabetes mellitus complication status: with circulatory complication Diabetes mellitus complication detail: with other circulatory complications Diabetes mellitus jail insulin use: without jail use Qualified Code( s): E11.59 - Type 2 diabetes mellitus with other circulatory complications Is this a current diagnosis for this admission?: Yes (5) Gastroesophageal reflux disease Qualifiers: Esophagitis presence: esophagitis presence not specified Qualified Code(s) : K21.9 - Gastro-esophageal reflux disease without esophagitis Is this a current diagnosis for this admission?: Yes (6) Cholelithiasis Qualifiers: Cholecystitis presence: without cholecystitis Is this a current diagnosis for this admission?: Yes - Notes Notes: Chest pain: [place] to be noncardiac based on evaluation of EKG, cardiac enzymes etc. At this point recommend evaluation for other causes of chest pain such as gastroesophageal reflux. Would recommend medical management for underlying CAD in this patient. Anxiety depression: Currently is stable. Chest pain could be from this symptom. Coronary artery disease: Currently stable. Diabetes: Recommend good control of diabetes but avoid any hyper or hypoglycemia. Gastroesophageal reflux: Currently stable. Cholelithiasis: May need to be further evaluated. Will leave this evaluation to the audiovisual librarian. It could be cause of patient chest discomfort. Will review previous records. Patient to report any further problems. - Time Time Spent: 30 to 50 Minutes - CODE STATUS was discussed, patient remains full code. Surrogate decision-maker not identified yet. Multiple medical problems were addressed. More than 50% of the time spent coordinating care, discussing management plans with involved caregivers. Management plans discussed with involved personnels. Medical decision making was of moderate to high complexity , patient's has multiple comorbidities. Medications reviewed and adjusted accordingly: Yes
--- NOTE | 2017-05-31 13:39 | Physician Advisory Note ---
Physician Advisor ProgressNote .: [facility], I have reviewed the medical record for this patient. Physician Advisor Statement: Please document: 1. "Chest pain, suspect most likely due to ____" 2. "RLQ abd pain, suspect due to " 3. "Mild ARF, possibly due to intravascular volume depletion, now resolved" 4. "Chronic diastolic CHF" Status: 82yo Medicare pt with chronic diastolic CHF, DM-2, HTN, HLD, anx/dep, 2 CVAs w/_ __ residual sx, prior IA per EKG but neg cardiolite stess test 6-7 mo ago, chronic very high leukocytosis, on Xarelto & Plavix came in w/abd pain RLQ who also c/o'd CP & SOB initially, again w/prominent leukocytosis of 35.2, bicarb 32, Cr 1.28, CT-A w/RLL <1cm pulm nodule, possible airspace dz Rt medial lung, splenomegaly. H&P documents mild distress, ascites , distension, tenderness of abd, organomegaly, obesity. Attending ordered a 2nd liter IV NS, prn's, PPI, cardiac enzymes, f/u labs, O2.... Appropriately brought in as Outpt Obs status, given unclear causes of sx, unclear how will respond to tx at time of decision-making. If pt on re-eval today, after CT A&P, is found clinically benign and able to go home with close f/u, please do so. If pt on re-eval today, after CT A&P, is found to have something clinically concerning that prevents her from safe d/c this PM, please document the issues/ concerns & then consider change to Inpatient status. Thanks! CK
[2017-05-31 14:47] LABS: PATH REVIEW PATHOLOGIST REVIEWED
--- NOTE | 2017-05-31 16:00 | PDOC PROGRESS REPORT ---
Subjective Progress Note for:: 05/31/17 Subjective:: Complains of pain along the right trochanteric bursa Physical Exam Vital Signs: Temp Pulse Resp BP Pulse Ox 98.3 F 81 18 151/59 H 96 05/31/17 11:16 05/31/17 11:16 05/31/17 11:16 05/31/17 11:16 05/31/17 11:16 Intake & Output 05/30/17 05/31/17 06/01/17 06:59 06:59 06:59 Intake Total 782 Balance 782 Weight 98.9 kg General appearance: PRESENT: no acute distress Eye exam: PRESENT: conjunctiva pink. ABSENT: scleral icterus Ear exam: PRESENT: normal external ear exam Neck exam: ABSENT: JVD Respiratory exam: PRESENT: clear to auscultation carmen. ABSENT: rales, rhonchi, wheezes Cardiovascular exam: PRESENT: RRR. ABSENT: diastolic murmur, rubs, systolic murmur GI/Abdominal exam: PRESENT: normal bowel sounds, soft. ABSENT: distended, guarding, mass, organolmegaly, rebound, tenderness Extremities exam: ABSENT: calf tenderness, clubbing, pedal edema Musculoskeletal exam: PRESENT: tenderness - Right trochanteric bursa area Neurological exam: PRESENT: alert, awake, oriented to person, oriented to place , oriented to time, oriented to situation, CN II-XII grossly intact. ABSENT: motor sensory deficit Psychiatric exam: PRESENT: appropriate affect Skin exam: PRESENT: dry, intact, warm. ABSENT: cyanosis, rash Results Laboratory Results: 05/31/17 03:54 05/31/17 03:54 05/31/17 05/31/17 03:54 03:54 WBC 29.8 H RBC 7.34 H Hgb 14.3 Hct 45.8 MCV 62 L MCH 19.5 L MCHC 31.3 L RDW 21.8 H Plt Count 275 Seg Neutrophils % Not Reportable Lymphocytes % Not Reportable Monocytes % Not Reportable Eosinophils % Not Reportable Basophils % Not Reportable Absolute Neutrophils Not Reportable Absolute Lymphocytes Not Reportable Absolute Monocytes Not Reportable Absolute Eosinophils Not Reportable Absolute Basophils Not Reportable Sodium 142.7 Potassium 3.8 Chloride 108 H Carbon Dioxide 27 Anion Gap 8 BUN 16 Creatinine 0.97 Est GFR ( Amer) > 60 Est GFR (Non-Af Amer) 55 L Glucose 136 H Calcium 9.2 Triglycerides 163 H Cholesterol 63.19 LDL Cholesterol Direct < 30 VLDL Cholesterol 32.6 H HDL Cholesterol 23 L 05/30/17 05/30/17 05/31/17 22:55 23:00 03:54 Creatine Kinase CK-MB (CK-2) 0.76 0.64 Troponin I Cancelled < 0.012 05/31/17 05/31/17 03:54 10:12 Creatine Kinase < 20 L CK-MB (CK-2) 0.90 Troponin I < 0.012 Impressions: Acute Abdomen Series 05/30/17 14:43 IMPRESSION: NO RADIOGRAPHIC EVIDENCE FOR ACUTE ABDOMINAL DISEASE. Chest/Abdomen CTA 05/30/17 17:33 IMPRESSION: 1. There is no evidence of pulmonary emboli. 2. Small right upper lobe pulmonary nodule. 3. There may be limited airspace disease right lung medially. 4. Splenomegaly is suggested. 5. A gallstone is present. Assessment & Plan - Diagnosis (1) Chest pain Qualifiers: Chest pain type: unspecified Qualified Code(s): R07.9 - Chest pain, unspecified Is this a current diagnosis for this admission?: Yes Plan: The chest pain has resolved. This does not appear to be cardiac in nature. Will do for no further workup (2) Gastroesophageal reflux disease Qualifiers: Esophagitis presence: esophagitis presence not specified Qualified Code(s) : K21.9 - Gastro-esophageal reflux disease without esophagitis Is this a current diagnosis for this admission?: Yes (3) Abdominal pain Is this a current diagnosis for this admission?: Yes Plan: Patient's abdominal pain has resolved. We will get an abdominal CT today. (4) Acute renal insufficiency Is this a current diagnosis for this admission?: Yes Plan: Patient's creatinine has normalized with fluids. (5) Anemia Qualifiers: Anemia type: unspecified type Qualified Code(s): D64.9 - Anemia, unspecified (6) Anxiety and depression Is this a current diagnosis for this admission?: Yes (7) CAD (coronary artery disease) Qualifiers: Coronary Disease-Associated Artery/Lesion type: [place] artery [place] vs. transplanted heart: [place] heart Associated angina: without angina Qualified Code(s): I25.10 - Atherosclerotic heart disease of [place] coronary artery without angina pectoris Is this a current diagnosis for this admission?: Yes Plan: Denies any further chest pain. (8) Chronic diastolic CHF (congestive heart failure) Is this a current diagnosis for this admission?: Yes Plan: Chronic diastolic congestive heart failure stable. (9) Diabetes mellitus type II, controlled Qualifiers: Diabetes mellitus complication status: with circulatory complication Diabetes mellitus complication detail: with other circulatory complications Diabetes mellitus buttermaker insulin use: without detention use Qualified Code( s): E11.59 - Type 2 diabetes mellitus with other circulatory complications Is this a current diagnosis for this admission?: Yes (10) GERD (gastroesophageal reflux disease) Qualifiers: Esophagitis presence: without esophagitis Qualified Code(s): K21.9 - Gastro -esophageal reflux disease without esophagitis Is this a current diagnosis for this admission?: Yes (11) Trochanteric bursitis Is this a current diagnosis for this admission?: Yes Plan: Patient has right trochanteric bursitis. Will give Celebrex given the fact that she is on anticoagulation. - Time Time Spent with patient: 25-34 minutes - Plan Summary Plan Summary: Will observe overnight and if her pain has resolved we will discharge home tomorrow.
[2017-05-31] MEDS ORDERED: DIPHENHYDRAMINE HCL 50 MG/ML VIAL ONE (16:29)
--- NOTE | 2017-05-31 16:29 | Progress Note ---
Provider Note Provider Note: Called by nursing staff because of some swelling of the tongue. At the time of my exam patient reports that her tongue feels more swollen and her upper lip also appears to be slightly swollen. She is not having any respiratory distress. The patient received Cozaar this morning and several hours ago received a dose of morphine. She has no allergies to either 1 of those medications. Physical exam: Chest is clear to auscultation. Upper lip slightly swollen. Tongue is beefy red and swollen but no airway compromise. Assessment and plan #1 drug allergy. Patient appears to have a drug allergy most likely to morphine. Will DC the morphine and also will DC the Cozaar just to be on the safe side. Patient will be given Benadryl. If she worsens would give steroids.
[2017-05-31] MEDS: LACTULOSE SYRUP 20 GM/30 ML UDCUP PO PRN (17:20)
[2017-05-31] MEDS: CELECOXIB 200 MG CAPSULE PO SCH (17:20)
[2017-05-31] MEDS: NYSTATIN/DEXAMETH/DIPHEN SUSP 120 ML PO SCH ×2 (17:21→21:19)
--- NOTE | 2017-05-31 19:55 | RADIOLOGY REPORT (SQ) ---
EXAM DESCRIPTION: CT ABD/PELVIS WITH IV ORAL COMPLETED DATE/TIME: 05/31/2017 7:44 pm REASON FOR STUDY: R lq pain K38.2 DIVERTICULUM OF APPENDIX COMPARISON: None. TECHNIQUE: CT scan of the abdomen and pelvis performed using helical scanning technique with dynamic intravenous contrast injection. No oral contrast. Images reviewed with lung, soft tissue, and bone windows. Reconstructed coronal and sagittal MPR images reviewed. Delayed images for evaluation of the urinary system also acquired. All images stored on PACS. All CT scanners at this facility use dose modulation, iterative reconstruction, and/or weight based d osing when appropriate to reduce radiation dose to as low as reasonably achievable (ALARA). [facility]: Dose Right [facility]: CareDose [facility]: Dose Right [facility]: Teradose 4D [facility]: Webcrumbz CONTRAST TYPE AND DOSE: contrast/concentration: Isovue 370.00 mg/ml; Total Contrast Delivered: 82.5 ml; Total Saline Delivered: 10.0 ml RENAL FUNCTION: GFR > 60. RADIATION DOSE: Up-to-date CT equipment and radiation dose reduction techniques were employed. CTDIv ol: 20.2 - 21.1 mGy. DLP: 2213 mGy-cm.. LIMITATIONS: None. FINDINGS: LOWER CHEST: No significant findings. No nodules or infiltrates. LIVER: Normal size. No masses. No dilated ducts. SPLEEN: Normal size. No focal lesions. PANCREAS: No masses. No significant calcifications. No adjacent inflammation or peripancreatic fluid collections. Pancreatic duct not dilated. GALLBLADDER: No identified stones by CT criteria. No inflammatory changes to suggest cholecystitis. ADRENAL GLANDS: No significant masses or asymmetry. RIGHT KIDNEY AND URETER: No solid masses. Scattered cysts. No significant calcifications. No hydr onephrosis or hydroureter. LEFT KIDNEY AND URETER: No solid masses. Scattered cysts. No significant calcifications. No hydro nephrosis or hydroureter. AORTA AND VESSELS: No aneurysm. No dissection. Renal arteries, SMA, celiac without stenosis. RETROPERITONEUM: No retroperitoneal adenopathy, hemorrhage or masses. BOWEL AND PERITONEAL CAVITY: No masses or inflammatory changes. No free fluid or peritoneal masses. APPENDIX: Not visualized. PELVIS: Prior hysterectomy No free fluid. Normal bladder. ABDOMINAL WALL: No masses. No hernias. BONES: No significant or acute findings. OTHER: No other significant finding. IMPRESSION: NO ACUTE FINDING IN THE ABDOMEN OR PELVIS ON CT SCAN WITH IV CONTRAST. TECHNICAL DOCUMENTATION: JOB ID: [id number] Quality ID # [id number]: Final reports with documentation of one or more dose reduction techniques (e.g., Au tomated exposure control, adjustment of the mA and/or kV according to patient size, use of iterative reconstruction technique) 2010 [employer]- All Rights Reserved
[2017-05-31] MEDS: ATORVASTATIN CALCIUM 80 MG TABLET PO SCH (21:19)
[2017-05-31] MEDS: RIVAROXABAN 10 MG TABLET PO SCH (21:20)
[2017-06-01] MEDS: LANSOPRAZOLE 30 MG TAB.RAP.DR PO SCH (05:25)
[2017-06-01 06:00] LABS: HEMATOCRIT 45.6 % (36.0-47.0); HEMOGLOBIN 14.1 g/dL (12.0-15.5); HGB HCT DIFFERENCE -3.3; MEAN CORPUSCULAR HEMOGLOBIN 19.6 pg (27.0-33.4); MEAN CORPUSCULAR HGB CONC 30.9 g/dL (32.0-36.0); MEAN CORPUSCULAR VOLUME 63 fl (80-97); RED CELL DISTRIBUTION WIDTH 21.7 % (11.5-14.0); WHITE BLOOD COUNT 29.7 10^3/uL (4.0-10.5)
[2017-06-01 06:13] LABS: ANION GAP 10 (5-19); BLOOD UREA NITROGEN 12 mg/dL (7-20); CALCIUM 9.3 mg/dL (8.4-10.2); CARBON DIOXIDE 26 mmol/L (22-30); CHLORIDE 108 mmol/L (98-107); CREATININE RESULT 0.91 mg/dL (0.52-1.25); GLUCOSE 165 mg/dL (75-110); POTASSIUM 3.9 mmol/L (3.6-5.0); SODIUM 143.8 mmol/L (137-145)
[2017-06-01 06:50] LABS: RED BLOOD COUNT 7.19 10^6/uL (3.72-5.28)
[2017-06-01 06:56] LABS: BAND NEUTROPHILS % (MANUAL) 8 % (3-5); BASOPHILS % (MANUAL) 0 % (0-2); EOSINOPHILS % (MANUAL) 0 % (0-6); LYMPHOCYTES % (MANUAL) 8 % (13-45); TOTAL CELLS COUNTED 100
[2017-06-01 07:01] LABS: ANISOCYTOSIS 3+; HYPOCHROMASIA 3+; MICROCYTOSIS 3+; OVALOCYTES 1+; POIKILOCYTOSIS 1+; POLYCHROMASIA SLIGHT
[2017-06-01 07:02] LABS: TEAR DROP CELLS SLIGHT
[2017-06-01] MEDS: LACTULOSE SYRUP 20 GM/30 ML UDCUP PO PRN ×2 (07:51→12:14)
--- NOTE | 2017-06-01 08:01 | PDOC PROGRESS REPORT ---
Subjective Progress Note for:: 06/01/17 Subjective:: No acute events overnight Physical Exam Vital Signs: Temp Pulse Resp BP Pulse Ox 98.7 F 77 20 127/70 H 98 06/01/17 00:07 06/01/17 07:00 06/01/17 00:07 06/01/17 00:07 06/01/17 00:07 Intake & Output 05/31/17 06/01/17 06/02/17 06:59 06:59 06:59 Intake Total 782 2197 Output Total 2200 Balance 782 -3 Weight 98.9 kg 100.6 kg General appearance: PRESENT: no acute distress, well-developed, well-nourished Head exam: PRESENT: atraumatic, normocephalic Eye exam: PRESENT: conjunctiva pink, EOMI, PERRLA. ABSENT: scleral icterus Ear exam: PRESENT: normal external ear exam Mouth exam: PRESENT: moist, tongue midline Neck exam: ABSENT: carotid bruit, JVD, lymphadenopathy, thyromegaly Respiratory exam: PRESENT: clear to auscultation carmen. ABSENT: rales, rhonchi, wheezes Cardiovascular exam: PRESENT: RRR. ABSENT: diastolic murmur, rubs, systolic murmur Pulses: PRESENT: normal dorsalis pedis pul Vascular exam: PRESENT: normal capillary refill GI/Abdominal exam: PRESENT: normal bowel sounds, soft. ABSENT: distended, guarding, mass, organolmegaly, rebound, tenderness Rectal exam: PRESENT: deferred Extremities exam: PRESENT: full ROM. ABSENT: calf tenderness, clubbing, pedal edema Neurological exam: PRESENT: alert, awake, oriented to person, oriented to place , oriented to time, oriented to situation, CN II-XII grossly intact. ABSENT: motor sensory deficit Psychiatric exam: PRESENT: appropriate affect, normal mood. ABSENT: homicidal ideation, suicidal ideation Skin exam: PRESENT: dry, intact, warm. ABSENT: cyanosis, rash Results Laboratory Results: 06/01/17 05:14 06/01/17 05:14 06/01/17 06/01/17 05:14 05:14 WBC 29.7 H RBC 7.19 H Hgb 14.1 Hct 45.6 MCV 63 L MCH 19.6 L MCHC 30.9 L RDW 21.7 H Plt Count 269 Seg Neutrophils % Not Reportable Lymphocytes % Not Reportable Monocytes % Not Reportable Eosinophils % Not Reportable Basophils % Not Reportable Absolute Neutrophils Not Reportable Absolute Lymphocytes Not Reportable Absolute Monocytes Not Reportable Absolute Eosinophils Not Reportable Absolute Basophils Not Reportable Sodium 143.8 Potassium 3.9 Chloride 108 H Carbon Dioxide 26 Anion Gap 10 BUN 12 Creatinine 0.91 Est GFR ( Amer) > 60 Est GFR (Non-Af Amer) 59 L Glucose 165 H Calcium 9.3 05/30/17 05/30/17 05/31/17 22:55 23:00 03:54 Creatine Kinase CK-MB (CK-2) 0.76 0.64 Troponin I Cancelled < 0.012 05/31/17 05/31/17 03:54 10:12 Creatine Kinase < 20 L CK-MB (CK-2) 0.90 Troponin I < 0.012 Impressions: Acute Abdomen Series 05/30/17 14:43 IMPRESSION: NO RADIOGRAPHIC EVIDENCE FOR ACUTE ABDOMINAL DISEASE. Chest/Abdomen CTA 05/30/17 17:33 IMPRESSION: 1. There is no evidence of pulmonary emboli. 2. Small right upper lobe pulmonary nodule. 3. There may be limited airspace disease right lung medially. 4. Splenomegaly is suggested. 5. A gallstone is present. Abdomen/Pelvis CT 05/31/17 18:30 IMPRESSION: NO ACUTE FINDING IN THE ABDOMEN OR PELVIS ON CT SCAN WITH IV CONTRAST. Assessment & Plan - Diagnosis (1) Leukocytosis Qualifiers: Leukocytosis type: leukemoid reaction Qualified Code(s): D72.823 - Leukemoid reaction Is this a current diagnosis for this admission?: Yes Plan: Reactive, w/u in past neg for malignancy, no further w/u needed, will sign off (2) Solitary pulmonary nodule on lung CT Is this a current diagnosis for this admission?: Yes Plan: Probably also reactive changes, unlikely to be malignancy related, no further w/ u needed as of now - Time Time Spent with patient: 15-24 minutes Critical Time spent with patient: 15-24 minutes
[2017-06-01] MEDS ORDERED: ACETAMINOPHEN 325 MG TABLET PO PRN (08:34)
[2017-06-01] MEDS: NYSTATIN/DEXAMETH/DIPHEN SUSP 120 ML PO SCH ×3 (10:27→17:11)
[2017-06-01] MEDS: ISOSORBIDE MONONITRATE 30 MG TAB.ER.24H PO SCH (10:28)
[2017-06-01] MEDS: BUSPIRONE HCL 10 MG TABLET PO SCH (10:28)
[2017-06-01] MEDS: ASPIRIN 81 MG TABLET, ENT COATED PO SCH (10:28)
[2017-06-01] MEDS: GABAPENTIN 300 MG CAPSULE PO SCH (10:29)
[2017-06-01] MEDS: DOCUSATE SODIUM 100 MG CAPSULE PO SCH ×2 (10:29→17:13)
[2017-06-01] MEDS: METOPROLOL TARTRATE 50 MG TABLET PO SCH (10:29)
[2017-06-01] MEDS: HUM INSULIN NPH/REG INSULIN HM 100 UNIT/1 ML 3 ML SUBCUT SCH ×2 (10:30→17:13)
[2017-06-01] MEDS: CELECOXIB 200 MG CAPSULE PO SCH ×2 (10:30→17:11)
--- NOTE | 2017-06-01 11:40 | PDOC PROGRESS REPORT ---
Subjective Progress Note for:: 06/01/17 Subjective:: Dr. Henriquez's notes reviewed. Possible allergic reaction to either morphine or to Cozaar. Most likely morphine. Patient seems to be doing better with gradual improvement. Pt is denying any chest arm or neck discomfort. Patient denying any PND, orthopnea. Patient denied any sustained palpitations, dizziness, syncope, near syncope. Patient denying any fever chills. Patient denying any other significant discomfort. Patient is maintaining sinus rhythm. Review of systems: Rest review of systems negative. Medications: Medications have been reviewed. Physical Exam Vital Signs: Temp Pulse Resp BP Pulse Ox 98.3 F 77 17 144/66 H 96 06/01/17 08:04 06/01/17 08:04 06/01/17 08:04 06/01/17 08:04 06/01/17 08:04 Intake & Output 05/31/17 06/01/17 06/02/17 06:59 06:59 06:59 Intake Total 782 2197 Output Total 2200 Balance 782 -3 Weight 98.9 kg 100.6 kg Exam: GENERAL: well-nourished and in no acute distress. Alert and oriented x3 HEAD: Atraumatic, normocephalic. EYES: Pupils equal round and reactive to light, extraocular movements intact, sclera anicteric, conjunctiva are normal. ENT: TMs normal, nares patent, oropharynx clear without exudates. Moist mucous membranes. No oral ulcerations or bleeding gums noted NECK: supple without lymphadenopathy. Trachea is central. No cervical or axillary lymphadenopathy noted. Carotids are 2+, JVD WNL LUNGS: Respiration seems nonlabored, no significant accessory muscle action noted. Breath sounds clear to auscultation bilaterally and equal noted. No wheezes rales or rhonchi noted. No significant dullness noted on percussion. CHEST: Palpation of the chest wall shows no significant chest wall tenderness. No other significant abnormalities noted. 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 ABDOMEN: Soft, no significant tenderness appreciated, normoactive bowel sounds. No guarding, no rebound. No rigidity noted . No masses appreciated. EXTREMITIES: Pedal pulses are 1-2+, no calf tenderness noted. No clubbing or cyanosis.trace to 1+ pedal edema noted NEUROLOGICAL: Focused neurological exam showed no significant neurologic deficit. Normal speech, no focal weakness appreciated. PSYCH: Normal mood, normal affect. Judgment and insight within normal limits. SKIN: No significant ecchymosis, rash, ulcerations or signs of pruritus noted. MUSCULOSKELETAL EXAM: No significant joint swelling noted. Results Laboratory Results: 06/01/17 05:14 06/01/17 05:14 06/01/17 06/01/17 05:14 05:14 WBC 29.7 H RBC 7.19 H Hgb 14.1 Hct 45.6 MCV 63 L MCH 19.6 L MCHC 30.9 L RDW 21.7 H Plt Count 269 Seg Neutrophils % Not Reportable Lymphocytes % Not Reportable Monocytes % Not Reportable Eosinophils % Not Reportable Basophils % Not Reportable Absolute Neutrophils Not Reportable Absolute Lymphocytes Not Reportable Absolute Monocytes Not Reportable Absolute Eosinophils Not Reportable Absolute Basophils Not Reportable Sodium 143.8 Potassium 3.9 Chloride 108 H Carbon Dioxide 26 Anion Gap 10 BUN 12 Creatinine 0.91 Est GFR ( Amer) > 60 Est GFR (Non-Af Amer) 59 L Glucose 165 H Calcium 9.3 05/30/17 05/30/17 05/31/17 22:55 23:00 03:54 Creatine Kinase CK-MB (CK-2) 0.76 0.64 Troponin I Cancelled < 0.012 05/31/17 05/31/17 03:54 10:12 Creatine Kinase < 20 L CK-MB (CK-2) 0.90 Troponin I < 0.012 Impressions: Acute Abdomen Series 05/30/17 14:43 IMPRESSION: NO RADIOGRAPHIC EVIDENCE FOR ACUTE ABDOMINAL DISEASE. Chest/Abdomen CTA 05/30/17 17:33 IMPRESSION: 1. There is no evidence of pulmonary emboli. 2. Small right upper lobe pulmonary nodule. 3. There may be limited airspace disease right lung medially. 4. Splenomegaly is suggested. 5. A gallstone is present. Abdomen/Pelvis CT 05/31/17 18:30 IMPRESSION: NO ACUTE FINDING IN THE ABDOMEN OR PELVIS ON CT SCAN WITH IV CONTRAST. Assessment & Plan - Diagnosis (1) Chest pain Qualifiers: Chest pain type: unspecified Qualified Code(s): R07.9 - Chest pain, unspecified Is this a current diagnosis for this admission?: Yes (2) Anxiety and depression Is this a current diagnosis for this admission?: Yes (3) CAD (coronary artery disease) Qualifiers: Coronary Disease-Associated Artery/Lesion type: [place] artery [place] vs. transplanted heart: [place] heart Associated angina: without angina Qualified Code(s): I25.10 - Atherosclerotic heart disease of [place] coronary artery without angina pectoris Is this a current diagnosis for this admission?: Yes (4) Diabetes mellitus type II, controlled Qualifiers: Diabetes mellitus complication status: with circulatory complication Diabetes mellitus complication detail: with other circulatory complications Diabetes mellitus group home insulin use: without group home use Qualified Code( s): E11.59 - Type 2 diabetes mellitus with other circulatory complications Is this a current diagnosis for this admission?: Yes (5) Gastroesophageal reflux disease Qualifiers: Esophagitis presence: esophagitis presence not specified Qualified Code(s) : K21.9 - Gastro-esophageal reflux disease without esophagitis Is this a current diagnosis for this admission?: Yes (6) Cholelithiasis Qualifiers: Cholecystitis presence: without cholecystitis Is this a current diagnosis for this admission?: Yes - Notes Notes: Chest pain: [place] to be noncardiac based on evaluation of EKG, cardiac enzymes etc. Anxiety depression: Currently is stable. Chest pain could be from this symptom. Coronary artery disease: Currently stable. Diabetes: Recommend good control of diabetes but avoid any hyper or hypoglycemia. Gastroesophageal reflux: Currently stable. Cholelithiasis: May need to be further evaluated. Will leave this evaluation to the epic anesthesia analyst. It could be cause of patient chest discomfort. Will review previous records. Patient remained stable. Patient to report any further problems. - Time Time with patient: 15-25 minutes Medications reviewed and adjusted accordingly: Yes
[2017-06-01] MEDS ORDERED: NA PHOS,M-B/NA PHOS,DI-BA (ADULT) 133 ML ENEMA PR ONE (14:00)
--- NOTE | 2017-06-01 14:51 | PDOC DISCHARGE SUMMARY ---
General - Admit/Disc Date/PCP Admission Date/Primary Care Provider: 05/30/17 21:47 JAVED GUERRIER MD Discharge Date: 06/01/17 - Discharge Diagnosis (1) Chest pain Is this a current diagnosis for this admission?: Yes Summary: Probable noncardiac most likely from GI source. Patient was evaluated by cardiology and had negative cardiac enzymes. (2) Gastroesophageal reflux disease Is this a current diagnosis for this admission?: Yes (3) Abdominal pain Is this a current diagnosis for this admission?: Yes Summary: Resolved (4) Acute renal insufficiency Is this a current diagnosis for this admission?: Yes (5) Anemia Is this a current diagnosis for this admission?: Yes (6) Anxiety and depression Is this a current diagnosis for this admission?: Yes (7) CAD (coronary artery disease) Is this a current diagnosis for this admission?: Yes (8) Chronic diastolic CHF (congestive heart failure) Is this a current diagnosis for this admission?: Yes (9) Diabetes mellitus type II, controlled Is this a current diagnosis for this admission?: Yes (10) GERD (gastroesophageal reflux disease) Is this a current diagnosis for this admission?: Yes (11) Trochanteric bursitis Is this a current diagnosis for this admission?: Yes Summary: Treated with Celebrex. This has resolved. - Additional Information Resuscitation Status: Full Code Discharge Diet: Cardiac, Diabetic Discharge Activity: Activity As Tolerated Home Medications: Aspirin [Aspirin EC] 81 mg PO DAILY 03/14/17 Buspirone HCl [Buspar 10 mg Tablet] 15 mg PO Q12 03/14/17 Clopidogrel Bisulfate [Plavix 75 mg Tablet] 75 mg PO DAILY 03/14/17 Docusate Sodium [Colace 100 mg Capsule] 100 mg PO BID 03/14/17 Gabapentin [Neurontin 300 mg Capsule] 300 mg PO Q12 03/14/17 Glimepiride [Amaryl 1 mg Tablet] 2 mg PO BID 03/14/17 Isosorbide Mononitrate [Isosorbide Mononitrate ER] 30 mg PO DAILY 03/14/17 Pantoprazole Sodium [Protonix] 40 mg PO DAILY 03/14/17 Rosuvastatin Calcium [Crestor] 40 mg PO DAILY 03/14/17 Sitagliptin Phosphate [Januvia] 100 mg PO DAILY 03/14/17 Trazodone HCl [Desyrel 50 mg Tablet] 50 mg PO HSP PRN 03/14/17 Insulin Aspart [Novolog Flexpen] 0 unit SUBCUT .SLD SCALE 05/15/17 Insulin NPH Hum/Reg Insulin Hm [Novolin 70-30 100 Unit/ml Vial] 65 unit SQ BID 05/15/17 Losartan Potassium [Cozaar 50 mg Tablet] 25 mg PO DAILY 05/15/17 Metoprolol Tartrate 50 mg PO Q12 05/15/17 Rivaroxaban [Xarelto 10 mg Tablet] 20 mg PO DAILY 05/15/17 Flu Vacc [id number] 36Mos Up/Pf [Fluzone Adlt Quad [id number] Vac 0.5 ml Syr] 0.5 ml IM .DISCHARGE PRN disp.syrin 06/01/17 History of Present Illness History of Present Illness: ORACIO PEDROZA is a 82 year old female with a history of hypertension, diabetes and coronary artery disease who presented with 2 day history of 3 out of 5 dull pressure-like pain in the right lower quadrant with nausea and vomiting. The patient also told the emergency room physician that she had some chest pain in the epigastric area also. The patient's chest pain quickly resolved. She was found to have a white count of 35,000. Patient has had problems with chronic leukocytosis and has had a hematology workup done previously. Patient admitted for evaluation of abdominal and chest pain. Hospital Course Hospital Course: 82-year-old female with a history of coronary artery disease who presented with abdominal pain. This quickly resolved. She did have some nausea and vomiting associated with it. Abdominal CT showed no obvious abnormalities. Patient also did have an episode of epigastric pain and there was concern this may represent cardiac issues. Patient was evaluated by cardiology felt this was most likely from a GI source. The patient also complained of pain over her right hip consistent with trochanteric bursitis. She was given Celebrex and had improvement in the pain. Patient is on Xarelto and should not take anti- inflammatories long-term because of this. Patient had resolution of abdominal pain as well as her chest pain and she was back to her baseline. Is felt that she can be discharged home with follow-up with her primary care doctor. Physical Exam Vital Signs: Temp Pulse Resp BP Pulse Ox 98.3 F 77 17 144/66 H 96 06/01/17 08:04 06/01/17 08:04 06/01/17 08:04 06/01/17 08:04 06/01/17 08:04 Intake & Output 05/31/17 06/01/17 06/02/17 06:59 06:59 06:59 Intake Total 782 2197 Output Total 2200 Balance 782 -3 Weight 98.9 kg 100.6 kg General appearance: PRESENT: no acute distress Eye exam: PRESENT: conjunctiva pink. ABSENT: scleral icterus Mouth exam: PRESENT: moist, tongue midline Neck exam: ABSENT: JVD Respiratory exam: PRESENT: clear to auscultation carmen. ABSENT: rales, rhonchi, wheezes Cardiovascular exam: PRESENT: RRR. ABSENT: diastolic murmur, rubs, systolic murmur GI/Abdominal exam: PRESENT: normal bowel sounds, soft. ABSENT: distended, guarding, mass, organolmegaly, rebound, tenderness Extremities exam: ABSENT: calf tenderness, clubbing, pedal edema Neurological exam: PRESENT: alert, awake, oriented to person, oriented to place , oriented to time, oriented to situation, CN II-XII grossly intact. ABSENT: motor sensory deficit Psychiatric exam: PRESENT: appropriate affect Skin exam: PRESENT: dry, intact, warm. ABSENT: cyanosis, rash Results Laboratory Results: 06/01/17 05:14 06/01/17 05:14 06/01/17 06/01/17 05:14 05:14 WBC 29.7 H RBC 7.19 H Hgb 14.1 Hct 45.6 MCV 63 L MCH 19.6 L MCHC 30.9 L RDW 21.7 H Plt Count 269 Seg Neutrophils % Not Reportable Lymphocytes % Not Reportable Monocytes % Not Reportable Eosinophils % Not Reportable Basophils % Not Reportable Absolute Neutrophils Not Reportable Absolute Lymphocytes Not Reportable Absolute Monocytes Not Reportable Absolute Eosinophils Not Reportable Absolute Basophils Not Reportable Sodium 143.8 Potassium 3.9 Chloride 108 H Carbon Dioxide 26 Anion Gap 10 BUN 12 Creatinine 0.91 Est GFR ( Amer) > 60 Est GFR (Non-Af Amer) 59 L Glucose 165 H Calcium 9.3 05/31/17 00:35 Nasophary ([facility] Only) MRSA Surveillance Culture - Final MRSA RECOVERED 05/30/17 05/30/17 05/31/17 22:55 23:00 03:54 Creatine Kinase CK-MB (CK-2) 0.76 0.64 Troponin I Cancelled < 0.012 05/31/17 05/31/17 03:54 10:12 Creatine Kinase < 20 L CK-MB (CK-2) 0.90 Troponin I < 0.012 Impressions: Acute Abdomen Series 05/30/17 14:43 IMPRESSION: NO RADIOGRAPHIC EVIDENCE FOR ACUTE ABDOMINAL DISEASE. Chest/Abdomen CTA 05/30/17 17:33 IMPRESSION: 1. There is no evidence of pulmonary emboli. 2. Small right upper lobe pulmonary nodule. 3. There may be limited airspace disease right lung medially. 4. Splenomegaly is suggested. 5. A gallstone is present. Abdomen/Pelvis CT 05/31/17 18:30 IMPRESSION: NO ACUTE FINDING IN THE ABDOMEN OR PELVIS ON CT SCAN WITH IV CONTRAST. Qualifiers PATEINT BEING DISCHARGED WITH ANY OF THE FOLLOWING DIAGNOSIS?: No Plan Discharge Plan: Patient is discharged home in stable condition. Will follow with primary care in 2 weeks. Time Spent: Less than 30 Minutes
[2017-06-01 17:11] VITALS: BP 158/73
[2017-06-01] MEDS ORDERED: HUM INSULIN NPH/REG INSULIN HM 100 UNIT/1 ML 3 ML SUBCUT ONE ×2 (17:20→18:00)
== END 2017-06-01 21:45 | disposition home health service (06) ==
LOC: ER 13:24 → EH 21:47 → UNDOADMOB 22:48 → 4N 05-31 00:30
PROVIDERS: ADMIT Internal Medicine; ATTEND Internal Medicine
PROC: 3E0234Z Introduction of Serum, Toxoid and Vaccine into Muscle, Percutaneous Approach (ICD-10-PCS; principal; 2017-06-01)
DX: R07.9 Chest pain, unspecified (principal); K21.9 Gastro-esophageal reflux disease without esophagitis; R10.31 Right lower quadrant pain; N28.9 Disorder of kidney and ureter, unspecified; D64.9 Anemia, unspecified; F41.9 Anxiety disorder, unspecified; F32.9 Major depressive disorder, single episode, unspecified; I25.10 Atherosclerotic heart disease of native coronary artery without angina pectoris; I11.0 Hypertensive heart disease with heart failure; I50.32 Chronic diastolic (congestive) heart failure; M70.61 Trochanteric bursitis, right hip; D72.823 Leukemoid reaction; R11.2 Nausea with vomiting, unspecified; E11.59 Type 2 diabetes mellitus with other circulatory complications; K80.80 Other cholelithiasis without obstruction; R91.1 Solitary pulmonary nodule; E11.65 Type 2 diabetes mellitus with hyperglycemia; R22.0 Localized swelling, mass and lump, head; T50.905A Adverse effect of unspecified drugs, medicaments and biological substances, initial encounter; Y92.230 Patient room in hospital as the place of occurrence of the external cause; Z79.899 Other long term (current) drug therapy; Z79.02 Long term (current) use of antithrombotics/antiplatelets; Z79.82 Long term (current) use of aspirin; Z79.4 Long term (current) use of insulin; Z86.711 Personal history of pulmonary embolism; Z86.14 Personal history of Methicillin resistant Staphylococcus aureus infection; Z90.49 Acquired absence of other specified parts of digestive tract; Z90.710 Acquired absence of both cervix and uterus; Z80.1 Family history of malignant neoplasm of trachea, bronchus and lung; Z82.49 Family history of ischemic heart disease and other diseases of the circulatory system; Z87.440 Personal history of urinary (tract) infections; Z86.718 Personal history of other venous thrombosis and embolism; Z23 Encounter for immunization
CPT/HCPCS: 93005; 99285; 36415 ×3; 82553 ×2; 82962 ×2; 82550 ×2; 83690; 85025 ×3; 85610; 85730; 80048 ×2; 80053; 81001; 84484 ×2; 80061; 74022; 71275; 74177; 90686; 93010; G0378 ×3; G0008; A9270 ×33; J1200; J2270; J3490 ×2; J7030 ×2; 90471; J1815

== ENCOUNTER 2017-07-06 14:06 | Emergency (ER) | payer MEDICARE, OTHER ==
--- NOTE | 2017-07-06 14:12 | ER Document Report ---
ED General - General Stated Complaint: ABDOMINAL PAIN Time Seen by Provider: 07/06/17 14:12 Notes: This is a 82-year-old female status post cholecystectomy approximately 4 weeks ago. Patient has underlying leukocytosis which has been evaluated by oncology/ hematology. Had a lap bladimir performed by surgery. Was able to be discharged. Patient complaining of increased bruising in the lower abdomen. Had a small amount of blood coming out of the umbilical incision. Denies any major pain other than the pain associated with the surgery. No fever, chills, sweats. No other issues at this time. Patient came in by ambulance. TRAVEL OUTSIDE OF THE [place] IN LAST 30 DAYS: No - HPI Onset: Just prior to arrival Onset/Duration: Gradual Quality of pain: Achy Severity: Mild Pain Level: 0 Associated symptoms: None Exacerbated by: Denies - Related Data Allergies/Adverse Reactions: morphine Allergy (Verified 05/31/17 16:43) Past Medical History - General Information source: Patient, [facility] Records - Social History Smoking Status: Never Smoker Drug Abuse: None Lives with: Alone Family History: CAD, COPD, DM, Hyperlipidemia, Hypertension, Malignancy - Father with lung cancer, Other - Past Medical History Cardiac Medical History: Reports: Hx Congestive Heart Failure - Diastolic, Hx Heart Attack - EKG suggests probable prior infarction, Hx Hypercholesterolemia, Hx Hypertension, Hx Pulmonary Embolism - Distant history Pulmonary Medical History: Denies: Hx Asthma, Hx COPD, Hx Sleep Apnea Neurological Medical History: Denies: Hx Seizures Endocrine Medical History: Reports: Hx Diabetes Mellitus Type 1, Hx Diabetes Mellitus Type 2. Denies: Hx Hyperthyroidism, Hx Hypothyroidism Renal/ Medical History: Denies: Hx End Stage Renal Disease, Hx Peritoneal Dialysis Malignancy Medical History: Reports: Hx Skin Cancer - Excised from her nose. GI Medical History: Reports: Hx Gastroesophageal Reflux Disease. Denies: Hx Cirrhosis, Hx Hepatitis Musculoskeltal Medical History: Reports Hx Arthritis, Reports Hx Musculoskeletal Deformity Skin Medical History: Denies Hx Eczema, Denies Hx Psoriasis Psychiatric Medical History: Reports: Hx Anxiety, Hx Depression Infectious Medical History: Reports: Hx MRSA - Quite distant history. Denies: Hx C-Diff, Hx Hepatitis Past Surgical History: Reports: Hx Abdominal Surgery, Hx Appendectomy, Hx Hysterectomy, Hx Tonsillectomy, Other - Cardiac loop recorder, bilateral cataract surgery - Immunizations Hx Diphtheria, Pertussis, Tetanus Vaccination: No Hx Pneumococcal Vaccination: 04/29/13 Review of Systems - Review of Systems Constitutional: No symptoms reported EENT: No symptoms reported Cardiovascular: No symptoms reported Respiratory: No symptoms reported Gastrointestinal: No symptoms reported, See HPI Genitourinary: No symptoms reported Female Genitourinary: No symptoms reported Musculoskeletal: No symptoms reported Skin: No symptoms reported, Other - Bruising on the abdomen where the surgery was performed Hematologic/Lymphatic: No symptoms reported Neurological/Psychological: No symptoms reported Physical Exam - Vital signs Vitals: Temp Pulse BP Pulse Ox 98.3 F 80 125/54 L 94 07/06/17 14:26 07/06/17 14:26 07/06/17 14:26 07/06/17 14:26 Interpretation: Normal - General General appearance: Appears well, Alert - HEENT Head: Normocephalic, Atraumatic Eyes: Normal Pupils: PERRL - Respiratory Respiratory status: No respiratory distress Chest status: Nontender Breath sounds: Normal Chest palpation: Normal - Cardiovascular Rhythm: Regular Heart sounds: Normal auscultation Murmur: No - Abdominal Inspection: Normal Distension: No distension Bowel sounds: Normal Tenderness: Nontender. No: Tender, Hodge's sign, Guarding, Rebound Organomegaly: No organomegaly Notes: There is bruising noted to the lower abdomen which appear to be postoperative changes consistent with her postoperative timeframe. There is no active bleeding on the umbilical incision site. There is no signs of cellulitis. There is no warmth to the touch. - Back Back: Normal, Nontender - Extremities General upper extremity: Normal inspection, Nontender, Normal color, Normal ROM , Normal temperature General lower extremity: Normal inspection, Nontender, Normal color, Normal ROM , Normal temperature, Normal weight bearing. No: Cynthia's sign - Neurological Neuro grossly intact: Yes Cognition: Normal Orientation: AAOx4 Spang[place] Coma Scale Eye Opening: Spontaneous Ziyad Coma Scale Verbal: Oriented Spangler Coma Scale Motor: Obeys Commands Ziyad Coma Scale Total: 15 Speech: Normal Motor strength normal: LUE, RUE, LLE, RLE Sensory: Normal - Psychological Associated symptoms: Normal affect, Normal mood - Skin Skin Temperature: Warm - Bruising noted to the lower abdomen inferior to the umbilicus and in the right lower quadrant consistent with postoperative changes. Skin Moisture: Dry Skin Color: Normal Course - Re-evaluation Re-evalutation: 07/06/17 15:51 This is a well-appearing 82-year-old female patient in no acute distress who is concerned about the postoperative bruising. The bruising is consistent with the surgery and does not appear to represent an infection. Patient is here so we will go ahead and check her labs as she did have some abnormal blood count counts when she was hospitalized. Hopefully these have resolved. Will speak with surgery regarding the patient after workup is complete to get their blessing. I find nothing acute at this time. No imaging studies are warranted at this time. Of note, records were reviewed which showed she did have a seroma /hematoma of the right lower abdomen which would explain the bruising. Patient is also on blood thinners. 07/06/17 17:20 labs at baseline, will culture urine. Called sx. Will d/c. - Vital Signs Vital signs: Temp Pulse Resp BP Pulse Ox 98.3 F 80 125/54 L 94 07/06/17 14:26 07/06/17 14:26 07/06/17 14:26 07/06/17 14:26 - Laboratory Result Diagrams: 07/06/17 15:20 07/06/17 15:12 Laboratory results interpreted by me: 07/06/17 07/06/17 07/06/17 15:12 15:12 15:20 WBC 36.2 H* Manual Hct 53.0 H Seg Neuts % (Manual) 92 H Lymphocytes % (Manual) 7 L Monocytes % (Manual) 1 L Abs Neuts (Manual) 33.3 H PT 25.4 H APTT 54.6 H Est GFR (Non-Af Amer) 53 L Glucose 339 H Total Bilirubin 1.5 H Alkaline Phosphatase 221 H Urine Glucose (UA) Urine Blood Urine Urobilinogen Ur Leukocyte Esterase 07/06/17 16:28 WBC Manual Hct Seg Neuts % (Manual) Lymphocytes % (Manual) Monocytes % (Manual) Abs Neuts (Manual) PT APTT Est GFR (Non-Af Amer) Glucose Total Bilirubin Alkaline Phosphatase Urine Glucose (UA) >=500 H Urine Blood SMALL H Urine Urobilinogen 2.0 H Ur Leukocyte Esterase SMALL H Discharge - Discharge Clinical Impression: Postoperative ecchymosis Condition: Good Disposition: HOME, SELF-CARE Instructions: Abdominal Pain ([facility]) Additional Instructions: Please follow-up with your surgeons for outpatient evaluation. Nothing was found today it looks significant. We did add a urine culture so if that grows out a bacteria we will call you.
[2017-07-06 15:39] LABS: PROTHROMBIN TIME 25.4 SEC (11.4-15.4)
[2017-07-06 15:40] LABS: PARTIAL THROMBOPLASTIN TIME 54.6 SEC (23.5-35.8)
[2017-07-06 15:49] LABS: ALANINE AMINOTRANSFERASE 22 U/L (9-52); ALBUMIN 3.7 g/dL (3.5-5.0); ALKALINE PHOSPHATASE 221 U/L (38-126); ANION GAP 14 (5-19); ASPARTATE AMINO TRANSFERASE 18 U/L (14-36); BILIRUBIN,DIRECT 0.4 mg/dL (0.0-0.4); BILIRUBIN,TOTAL 1.5 mg/dL (0.2-1.3); BLOOD UREA NITROGEN 19 mg/dL (7-20); CALCIUM 9.6 mg/dL (8.4-10.2); CARBON DIOXIDE 25 mmol/L (22-30); CHLORIDE 101 mmol/L (98-107); GLUCOSE 339 mg/dL (75-110); POTASSIUM 4.2 mmol/L (3.6-5.0); SODIUM 140.4 mmol/L (137-145); TOTAL PROTEIN 7.2 g/dL (6.3-8.2)
[2017-07-06 16:08] LABS: ADD MANUAL MICRO HEMATOCRIT YES
[2017-07-06 16:13] LABS: WHITE BLOOD COUNT 36.2 10^3/uL (4.0-10.5)
[2017-07-06 16:27] LABS: BASOPHILS % (MANUAL) 0 % (0-2); EOSINOPHILS % (MANUAL) 0 % (0-6); LYMPHOCYTES % (MANUAL) 7 % (13-45); TOTAL CELLS COUNTED 100
[2017-07-06 16:32] LABS: POLYCHROMASIA SLIGHT
[2017-07-06 16:33] LABS: SMUDGE CELLS PRESENT
[2017-07-06 16:53] LABS: APPEARANCE,URINE SLIGHTLY-CLOUDY; BILIRUBIN,URINE NEGATIVE (NEGATIVE); GLUCOSE, URINE >=500 mg/dL (NEGATIVE); KETONES,URINE NEGATIVE (NEGATIVE); LEUKOCYTE ESTERASE,URINE SMALL (NEGATIVE); NITRITE,URINE NEGATIVE (NEGATIVE); PROTEIN,URINE NEGATIVE (NEGATIVE); URINE SPECIFIC GRAVITY 1.013
[2017-07-06 18:06] VITALS: BP 101/48
== END 2017-07-06 18:23 | disposition home or self-care (01) ==
LOC: ER 14:06
DX: R58 Hemorrhage, not elsewhere classified (principal); Z90.49 Acquired absence of other specified parts of digestive tract; D72.829 Elevated white blood cell count, unspecified; I10 Essential (primary) hypertension; E11.9 Type 2 diabetes mellitus without complications; Z79.01 Long term (current) use of anticoagulants; Z85.828 Personal history of other malignant neoplasm of skin; Z88.5 Allergy status to narcotic agent; Z86.711 Personal history of pulmonary embolism; Z86.14 Personal history of Methicillin resistant Staphylococcus aureus infection
CPT/HCPCS: 36415; 80053; 81001; 85025; 85610; 85730; 99283

== ENCOUNTER 2017-07-08 11:36 | Emergency (ER) | payer MEDICARE, OTHER ==
--- NOTE | 2017-07-08 12:39 | ER Document Report ---
ED General - General Chief Complaint: Depression Stated Complaint: SUICIDIAL IDEATION Time Seen by Provider: 07/08/17 11:55 Notes: 82-year-old female to the ER for depression. Patient states that she wants to . Has had depression in the past. Has been treated in the past. Recent hospitalization with cholecystectomy. Was seen a few days ago in the emergency department for repeat evaluation of her abdomen. Patient states that she has not taken anything. Does not know how she would kill herself but does not wish that she was . Misses her . States that she has had depression for 10 years. Takes medications but does not know what. Has tried antidepressants in the past that will help. TRAVEL OUTSIDE OF THE [place] IN LAST 30 DAYS: No - HPI Onset: Other - Chronic Onset/Duration: Gradual Severity: Mild Pain Level: 0 Associated symptoms: None - Related Data Allergies/Adverse Reactions: morphine Allergy (Verified 05/31/17 16:43) Past Medical History - General Information source: Patient - Social History Smoking Status: Unknown if Ever Smoked Frequency of alcohol use: None Drug Abuse: None Lives with: Family Family History: CAD, COPD, DM, Hyperlipidemia, Hypertension, Malignancy - Father with lung cancer, Other Patient has suicidal ideation: Yes Patient has homicidal ideation: No - Past Medical History Cardiac Medical History: Reports: Hx Congestive Heart Failure - Diastolic, Hx Heart Attack - EKG suggests probable prior infarction, Hx Hypercholesterolemia, Hx Hypertension, Hx Pulmonary Embolism - Distant history Pulmonary Medical History: Denies: Hx Asthma, Hx COPD, Hx Sleep Apnea Neurological Medical History: Denies: Hx Seizures Endocrine Medical History: Reports: Hx Diabetes Mellitus Type 1, Hx Diabetes Mellitus Type 2. Denies: Hx Hyperthyroidism, Hx Hypothyroidism Renal/ Medical History: Denies: Hx End Stage Renal Disease, Hx Peritoneal Dialysis Malignancy Medical History: Reports: Hx Skin Cancer - Excised from her nose. GI Medical History: Reports: Hx Gastroesophageal Reflux Disease. Denies: Hx Cirrhosis, Hx Hepatitis Musculoskeltal Medical History: Reports Hx Arthritis, Reports Hx Musculoskeletal Deformity Skin Medical History: Denies Hx Eczema, Denies Hx Psoriasis Psychiatric Medical History: Reports: Hx Anxiety, Hx Depression Infectious Medical History: Reports: Hx MRSA - Quite distant history. Denies: Hx C-Diff, Hx Hepatitis Past Surgical History: Reports: Hx Abdominal Surgery, Hx Appendectomy, Hx Cholecystectomy, Hx Hysterectomy, Hx Tonsillectomy, Other - Cardiac loop recorder, bilateral cataract surgery - Immunizations Hx Diphtheria, Pertussis, Tetanus Vaccination: No Hx Pneumococcal Vaccination: 04/29/13 Review of Systems - Review of Systems Constitutional: No symptoms reported, Malaise EENT: No symptoms reported Cardiovascular: No symptoms reported Respiratory: No symptoms reported Gastrointestinal: No symptoms reported Genitourinary: No symptoms reported Female Genitourinary: No symptoms reported Musculoskeletal: No symptoms reported Skin: No symptoms reported Hematologic/Lymphatic: No symptoms reported Neurological/Psychological: Depression, Suicidal ideation Physical Exam - Vital signs Vitals: Temp Pulse Resp BP Pulse Ox 98.0 F 81 18 130/58 H 92 07/08/17 11:53 07/08/17 11:53 07/08/17 11:53 07/08/17 11:53 07/08/17 11:53 Interpretation: Normal - General General appearance: Appears well, Alert Notes: Patient tearful - HEENT Head: Normocephalic, Atraumatic Eyes: Normal Pupils: PERRL - Respiratory Respiratory status: No respiratory distress Chest status: Nontender Breath sounds: Normal Chest palpation: Normal - Cardiovascular Rhythm: Regular Heart sounds: Normal auscultation Murmur: No - Abdominal Inspection: Normal Distension: No distension Bowel sounds: Normal Tenderness: Nontender Organomegaly: No organomegaly Notes: Healing abdominal incisions with postoperative bruising noted right lower quadrant/right upper quadrant. No signs of cellulitis. - Back Back: Normal, Nontender - Extremities General upper extremity: Normal inspection, Nontender, Normal color, Normal ROM , Normal temperature General lower extremity: Normal inspection, Nontender, Normal color, Normal ROM , Normal temperature, Normal weight bearing. No: Cynthia's sign - Neurological Neuro grossly intact: Yes Cognition: Normal Orientation: AAOx4 [place] Coma Scale Eye Opening: Spontaneous [place] Coma Scale Verbal: Oriented Ziyad Coma Scale Motor: Obeys Commands Ziyad Coma Scale Total: 15 Speech: Normal Motor strength normal: LUE, RUE, LLE, RLE Sensory: Normal - Psychological Associated symptoms: Normal affect, Decreased appetite, Depressed - Skin Skin Temperature: Warm Skin Moisture: Dry Skin Color: Normal Course - Re-evaluation Re-evalutation: 07/08/17 13:12 This is an unfortunate 82-year-old female with sadness associated with the loss of her as well as her mother and father and other people. We had a long discussion regarding dealing with changes to come with life. I have encouraged her to focus on the things that she has control over and not well in the past over things that are uncontrollable. I have advised her to get involved with other people and be around young people so that she can share her wisdom with others. This seemed to bring smile to her face. We will do some basic labs which I anticipate will be unchanged from prior. Will get mental health to do a quick evaluation on her. At this time I do not feel compelled to do a involuntary commission paperwork on her as I do not even think the patient has the ability to kill herself. There is no doubt that she is depressed but this can be treated effectively with counseling and medications. I did speak with the daughter and she is stating that she is always depressed. They are in the process of switching doctors and following up with [facility]. At this time I will follow recommendations to MD. Information has been given regarding respite care for the daughter as well as outpatient mental health facilities that may be of benefit to her.. 07/08/17 18:19 - Vital Signs Vital signs: Temp Pulse Resp BP Pulse Ox 98.0 F 81 18 130/58 H 92 07/08/17 11:53 07/08/17 11:53 07/08/17 11:53 07/08/17 11:53 07/08/17 11:53 - Laboratory Result Diagrams: 07/08/17 13:06 07/08/17 13:06 Laboratory results interpreted by me: 07/08/17 07/08/17 07/08/17 13:06 13:06 13:50 WBC 36.3 H* RBC 7.25 H MCV 64 L MCH 19.9 L MCHC 31.1 L RDW 22.3 H Seg Neuts % (Manual) 90 H Lymphocytes % (Manual) 2 L Metamyelocytes % 1 H Abs Neuts (Manual) 34.1 H Abs Basophils (Manual) 0.4 H BUN 26 H Est GFR ( Amer) 56 L Est GFR (Non-Af Amer) 47 L Glucose 435 H* POC Glucose Total Bilirubin 1.7 H Direct Bilirubin 0.7 H Alkaline Phosphatase 257 H Urine Glucose (UA) >=500 H Urine Blood SMALL H Ur Leukocyte Esterase MODERATE H Salicylates < 1.0 L Acetaminophen < 10 L 07/08/17 17:59 WBC RBC MCV MCH MCHC RDW Seg Neuts % (Manual) Lymphocytes % (Manual) Metamyelocytes % Abs Neuts (Manual) Abs Basophils (Manual) BUN Est GFR ( Amer) Est GFR (Non-Af Amer) Glucose POC Glucose 336 H Total Bilirubin Direct Bilirubin Alkaline Phosphatase Urine Glucose (UA) Urine Blood Ur Leukocyte Esterase Salicylates Acetaminophen Discharge - Discharge Clinical Impression: Depressed Qualifiers: Depression Type: major depressive disorder Major depression recurrence: recurrent Active/Remission status: remission status unspecified Qualified Code(s ): F33.9 - Major depressive disorder, recurrent, unspecified Condition: Good Disposition: HOME, SELF-CARE Instructions: Depression ([facility]), Family Physicians / Practices Additional Instructions: We are going to start you on some medications that should help with her depression. It would be very important that you follow-up with your regular doctor or 1 of the doctors in the follow-up information has been provided. If you begin to have any worsening symptoms please return. These follow-up of the information provided by her nurse with regards to respite care as well as mental health facilities that may be able to begin help with depression counseling. Prescriptions: Sertraline HCl [Zoloft 50 mg Tablet] 50 mg PO DAILY 30 Days #30 tablet
--- NOTE | 2017-07-08 13:02 | EKG REPORT ---
SEVERITY:- ABNORMAL ECG - SINUS RHYTHM PROBABLE INFERIOR INFARCT, OLD PROBABLE OLD ANTEROSEPTAL [place] : Confirmed by: Adam Bah MD 08-Jul-2017 13:02:01
[2017-07-08 13:33] LABS: HEMATOCRIT 46.4 % (36.0-47.0); HEMOGLOBIN 14.4 g/dL (12.0-15.5); HGB HCT DIFFERENCE -3.2; MEAN CORPUSCULAR HEMOGLOBIN 19.9 pg (27.0-33.4); MEAN CORPUSCULAR HGB CONC 31.1 g/dL (32.0-36.0); MEAN CORPUSCULAR VOLUME 64 fl (80-97); RED CELL DISTRIBUTION WIDTH 22.3 % (11.5-14.0)
[2017-07-08 13:45] LABS: WHITE BLOOD COUNT 36.3 10^3/uL (4.0-10.5)
[2017-07-08 13:46] LABS: RED BLOOD COUNT 7.25 10^6/uL (3.72-5.28)
[2017-07-08 14:10] LABS: BAND NEUTROPHILS % (MANUAL) 3 % (3-5); BASOPHILS % (MANUAL) 1 % (0-2); EOSINOPHILS % (MANUAL) 0 % (0-6); LYMPHOCYTES % (MANUAL) 2 % (13-45); TOTAL CELLS COUNTED 100
[2017-07-08 14:11] LABS: ANISOCYTOSIS 2+; TOXIC GRANULATION 1+; TOXIC VACUOLATION PRESENT
[2017-07-08 14:12] LABS: HYPOCHROMASIA SLIGHT; MICROCYTOSIS 3+; POLYCHROMASIA SLIGHT
[2017-07-08 14:20] LABS: ALANINE AMINOTRANSFERASE 27 U/L (9-52); ALBUMIN 3.9 g/dL (3.5-5.0); ALKALINE PHOSPHATASE 257 U/L (38-126); ANION GAP 14 (5-19); ASPARTATE AMINO TRANSFERASE 19 U/L (14-36); BILIRUBIN,DIRECT 0.7 mg/dL (0.0-0.4); BILIRUBIN,TOTAL 1.7 mg/dL (0.2-1.3); BLOOD UREA NITROGEN 26 mg/dL (7-20); CALCIUM 9.5 mg/dL (8.4-10.2); CARBON DIOXIDE 25 mmol/L (22-30); CHLORIDE 102 mmol/L (98-107); CREATININE RESULT 1.12 mg/dL (0.52-1.25); POTASSIUM 4.4 mmol/L (3.6-5.0); TOTAL PROTEIN 7.3 g/dL (6.3-8.2)
[2017-07-08 14:23] LABS: APPEARANCE,URINE SLIGHTLY-CLOUDY; BILIRUBIN,URINE NEGATIVE (NEGATIVE); GLUCOSE, URINE >=500 mg/dL (NEGATIVE); KETONES,URINE NEGATIVE (NEGATIVE); LEUKOCYTE ESTERASE,URINE MODERATE (NEGATIVE); NITRITE,URINE NEGATIVE (NEGATIVE); PROTEIN,URINE NEGATIVE (NEGATIVE); URINE SPECIFIC GRAVITY 1.013; UROBILINOGEN,URINE NEGATIVE mg/dL (<2.0)
[2017-07-08 14:33] LABS: ALCOHOL < 10 mg/dL (NONE DETECTED)
[2017-07-08 14:35] LABS: GLUCOSE 435 mg/dL (75-110)
[2017-07-08 14:37] LABS: URINE BARBITURATES SCREEN NEGATIVE; URINE METHADONE SCREEN NEGATIVE; URINE OPIATES LOW NEGATIVE; URINE PHENCYCLIDINE SCREEN NEGATIVE
[2017-07-08] MEDS ORDERED: INSULIN REG, HUMAN 100 UNIT/ML 3 ML VIAL (PYX) SUBCUT ONE (14:39)
[2017-07-08] MEDS ORDERED: SERTRALINE HCL 50 MG TABLET PO ONE (14:49)
--- NOTE | 2017-07-08 15:48 | PSYCHOLOGICAL NOTE ---
Psych Note - Psych Note Psych Note: Pt to ED with c/o depression, states has had thought of SI without plan and has been having bad dreams since taking buspar the past few weeks. Pt also c/o lower abdominal pain is 10 days post lap bladimir. Patient remembers clinician from her last psychiatric consultation in January. Patient disclosed that she still lives with her daughter and her daughter's surgeries went well. Patient disclosed that she does not remember how long she was in rehabilitation but disclosed that while there the doctor changed her BuSpar to Wellbutrin. She discloses that she still has depression from when her 10 years ago. Patient and her were for 50 years. She discloses that thoughts of wanting to has "started up again." Comparing this time to when she spoke with clinician in January it is worse. Patient disclosed that she would never actually kill herself but thinks "it would be really nice to be done with everything." Patient is alert and orientated to person place time and circumstance. Mood is euthymic with congruent affect. Patient endorses passive suicidal ideation denies intent stating she does not believe in suicide. Patient denies homicidal ideation. Patient denies auditory/visual hallucinations; patient is not demonstrating any behavior congruent with responding to internal stimuli. No delusions are absent. Thought processes organized and linear. Conversational speech is within normal rate tone and prosody. Eye contact was good. Attention and concentration is good. Insight, judgment, impulse control is good. 296.20 (F 32.9) major depressive disorder unspecified due to complicated bereavement Impression\\plan: Patient is considered psychiatrically clear. While patient endorses passive suicidal ideation. Patient denies true intent or formalizing plan; patient states it goes against her beliefs. She does state that her depression had increased. patient has suffered from chronic depression since the of her 10 years ago. Patient has been not taken any antidepressants or followed up with out patient mental health services. Patient is recommended for outpatient therapeutic services. Dr. Peng was consulted on the care and management of this patient; attending physician is in agreement with recommendations and disposition.
[2017-07-08 19:26] VITALS: BP 140/52
== END 2017-07-08 19:09 | disposition home or self-care (01) ==
LOC: ER 11:36
DX: F33.9 Major depressive disorder, recurrent, unspecified (principal); R45.851 Suicidal ideations; I50.9 Heart failure, unspecified; E78.00 Pure hypercholesterolemia, unspecified; I11.0 Hypertensive heart disease with heart failure; Z90.710 Acquired absence of both cervix and uterus; Z88.6 Allergy status to analgesic agent; Z86.711 Personal history of pulmonary embolism; Z86.14 Personal history of Methicillin resistant Staphylococcus aureus infection
CPT/HCPCS: 93005; 99285; 36415; 87086; 82962; 80307 ×4; 85025; 80053; 81001; 93010; A9270 ×2; J1815

== ENCOUNTER 2017-07-15 13:04 | Emergency (ER) | payer MEDICARE, OTHER ==
[2017-07-15] MEDS ORDERED: NORMAL SALINE 1000 ML 1,000 ML IV ONE (13:30)
--- NOTE | 2017-07-15 13:35 | ER Document Report ---
ED GI/ - General Chief Complaint: Blood Pressure Problem Stated Complaint: BLOOD PRESSURE PROBLEM Time Seen by Provider: 07/15/17 13:16 Notes: The patient is an 82-year-old female, past medical history A. fib ("claims to be on Pradaxa and Xarelto"), prior gastric ulcers, presents with 2 days of dark tarry stools and feeling lightheaded earlier today. Her home nurse checked her blood pressure and it was 70/40. She was given 250 mL normal saline bolus by EMS prior to arrival with improvement of her blood pressure to 100/70. Patient had a cholecystectomy a few weeks ago at [facility]. She denies abdominal pain, nausea , vomiting, chest pain, shortness of breath, back pain, syncope, focal weakness , numbness or tingling. TRAVEL OUTSIDE OF THE [place] IN LAST 30 DAYS: No - Related Data Allergies/Adverse Reactions: morphine Allergy (Verified 07/15/17 13:24) Past Medical History - General Information source: Patient - Social History Smoking Status: Unknown if Ever Smoked Chew tobacco use (# tins/day): No Frequency of alcohol use: None Drug Abuse: None Family History: CAD, COPD, DM, Hyperlipidemia, Hypertension, Malignancy - Father with lung cancer, Other Patient has suicidal ideation: No Patient has homicidal ideation: No - Past Medical History Cardiac Medical History: Reports: Hx Congestive Heart Failure - Diastolic, Hx Heart Attack - EKG suggests probable prior infarction, Hx Hypercholesterolemia, Hx Hypertension, Hx Pulmonary Embolism - Distant history Pulmonary Medical History: Denies: Hx Asthma, Hx COPD, Hx Sleep Apnea Neurological Medical History: Denies: Hx Seizures Endocrine Medical History: Reports: Hx Diabetes Mellitus Type 1, Hx Diabetes Mellitus Type 2. Denies: Hx Hyperthyroidism, Hx Hypothyroidism Renal/ Medical History: Denies: Hx End Stage Renal Disease, Hx Peritoneal Dialysis Malignancy Medical History: Reports: Hx Skin Cancer - Excised from her nose. GI Medical History: Reports: Hx Gastroesophageal Reflux Disease. Denies: Hx Cirrhosis, Hx Hepatitis Musculoskeltal Medical History: Reports Hx Arthritis, Reports Hx Musculoskeletal Deformity Skin Medical History: Denies Hx Eczema, Denies Hx Psoriasis Psychiatric Medical History: Reports: Hx Anxiety, Hx Depression Infectious Medical History: Reports: Hx MRSA - Quite distant history. Denies: Hx C-Diff, Hx Hepatitis Past Surgical History: Reports: Hx Abdominal Surgery, Hx Appendectomy, Hx Cholecystectomy, Hx Hysterectomy, Hx Tonsillectomy, Other - Cardiac loop recorder, bilateral cataract surgery - Immunizations Hx Diphtheria, Pertussis, Tetanus Vaccination: No Hx Pneumococcal Vaccination: 04/29/13 Review of Systems - Review of Systems Notes: REVIEW OF SYSTEMS: CONSTITUTIONAL: -fevers, -chills EENT: -eye pain, -difficulty swallowing, -nasal congestion CARDIOVASCULAR:-chest pain, -syncope. RESPIRATORY: -cough, -SOB GASTROINTESTINAL: -abdominal pain, -nausea, -vomiting, -diarrhea, +dark, tarry stools GENITOURINARY: -dysuria, -hematuria MUSCULOSKELETAL: -back pain, -neck pain SKIN: -rash or skin lesions. HEMATOLOGIC: -easy bruising or bleeding. LYMPHATIC: -swollen, enlarged glands. NEUROLOGICAL: -altered mental status or loss of consciousness, -headache, - neurologic symptoms PSYCHIATRIC: -anxiety, -depression. ALL OTHER SYSTEMS REVIEWED AND NEGATIVE. Physical Exam - Vital signs Vitals: Resp Pulse Ox 16 97 07/15/17 13:17 07/15/17 13:17 - Notes Notes: PHYSICAL EXAMINATION: GENERAL: Well-appearing, well-nourished and in no acute distress. HEAD: Atraumatic, normocephalic. EYES: Pupils equal round and reactive to light, extraocular movements intact, sclera anicteric, conjunctiva are normal. ENT: nares patent, oropharynx clear without exudates. Moist mucous membranes. NECK: Normal range of motion, supple without lymphadenopathy LUNGS: Breath sounds clear to auscultation bilaterally and equal. No wheezes rales or rhonchi. HEART: Regular rate and rhythm without murmurs ABDOMEN: Soft, nontender, normoactive bowel sounds. Well-healing laproscopic surgical wounds. No guarding, no rebound. No masses appreciated. RECTAL: Dark stool. EXTREMITIES: Normal range of motion, no pitting or edema. No cyanosis. NEUROLOGICAL: Cranial nerves grossly intact. Normal speech, normal gait. Normal sensory and motor exams. PSYCH: Normal mood, normal affect. SKIN: Warm, Dry, normal turgor, no rashes or lesions noted. Course - Re-evaluation Re-evalutation: 07/15/17 13:46 Pt with an unstable upper GI bleed that led to hypotension of 70/ 40 at home. Her blood pressure on arrival to the ER is in low 100s/50s. No GI on service at [facility] at this time. Patient requesting transfer to [facility]. Placed call to transfer center and awaiting callback. 07/15/17 14:[address] Ramos at [facility] and he has accepted patient to ICU. Awaiting bed assignment. Pt's BP is now 130/64 after 1 L NS. Her INR is 2.7 and Hgb 13. She also has a chronic leukocytosis and her WBC is below her baseline range (30-40K). She does not have any signs of infection at this time and she is afebrile. Will provide FFP and have 2 units PRBCs available in case her BP drops again and she continues to have tarry stools. 07/15/17 15:36 Pt's BP remaining 120-140's/80-100's after 1L NS. She has not required blood and she had a brown bowel movement. Called [facility] Transfer Center to update patient's status. - Vital Signs Vital signs: Temp Pulse Resp BP Pulse Ox 15 122/59 L 95 07/15/17 13:45 07/15/17 13:45 07/15/17 13:45 - Laboratory Result Diagrams: 07/15/17 13:15 07/15/17 13:15 Laboratory results interpreted by me: 07/15/17 07/15/17 07/15/17 13:11 13:15 13:15 WBC 28.4 H RBC 7.13 H MCV 65 L MCH 19.2 L MCHC 29.6 L RDW 22.5 H Seg Neuts % (Manual) 89 H Lymphocytes % (Manual) 1 L Monocytes % (Manual) 1 L Abs Neuts (Manual) 26.4 H Absolute Eos (Manual) 1.1 H PT 31.5 H APTT 56.9 H Sodium 145.4 H Est GFR ( Amer) 52 L Est GFR (Non-Af Amer) 43 L Glucose 292 H Calcium 8.3 L Total Bilirubin 1.4 H Direct Bilirubin 0.5 H Alkaline Phosphatase 212 H Creatine Kinase < 20 L Critical Care Note - Critical Care Note Total time excluding time spent on procedures (mins): 35 Discharge - Discharge Clinical Impression: Upper GI bleed Leukocytosis Qualifiers: Leukocytosis type: unspecified Qualified Code(s): D72.829 - Elevated white blood cell count, unspecified Condition: Serious Disposition: [facility] Referrals: JAVED GUERRIER MD [Primary Care Provider] - Follow up as needed
[2017-07-15 13:39] LABS: HEMATOCRIT 46.1 % (36.0-47.0); HEMOGLOBIN 13.7 g/dL (12.0-15.5); MEAN CORPUSCULAR HEMOGLOBIN 19.2 pg (27.0-33.4); MEAN CORPUSCULAR HGB CONC 29.6 g/dL (32.0-36.0); MEAN CORPUSCULAR VOLUME 65 fl (80-97); RED BLOOD COUNT 7.13 10^6/uL (3.72-5.28); RED CELL DISTRIBUTION WIDTH 22.5 % (11.5-14.0); WHITE BLOOD COUNT 28.4 10^3/uL (4.0-10.5)
[2017-07-15 13:45] LABS: PROTHROMBIN TIME 31.5 SEC (11.4-15.4)
[2017-07-15 13:46] LABS: PARTIAL THROMBOPLASTIN TIME 56.9 SEC (23.5-35.8)
[2017-07-15 13:57] LABS: ALANINE AMINOTRANSFERASE 26 U/L (9-52); ALBUMIN 3.6 g/dL (3.5-5.0); ALKALINE PHOSPHATASE 212 U/L (38-126); ANION GAP 15 (5-19); ASPARTATE AMINO TRANSFERASE 14 U/L (14-36); BILIRUBIN,DIRECT 0.5 mg/dL (0.0-0.4); BILIRUBIN,TOTAL 1.4 mg/dL (0.2-1.3); BLOOD UREA NITROGEN 18 mg/dL (7-20); CALCIUM 8.3 mg/dL (8.4-10.2); CARBON DIOXIDE 24 mmol/L (22-30); CHLORIDE 106 mmol/L (98-107); CREATININE RESULT 1.21 mg/dL (0.52-1.25); GLUCOSE 292 mg/dL (75-110); POTASSIUM 3.8 mmol/L (3.6-5.0); SODIUM 145.4 mmol/L (137-145); TOTAL PROTEIN 6.4 g/dL (6.3-8.2)
[2017-07-15 14:00] LABS: CREATINE KINASE < 20 U/L (30-135)
[2017-07-15] MEDS ORDERED: NORMAL SALINE 250 ML IV PRN (14:00)
[2017-07-15 14:06] LABS: BAND NEUTROPHILS % (MANUAL) 4 % (3-5); BASOPHILS % (MANUAL) 0 % (0-2); EOSINOPHILS % (MANUAL) 4 % (0-6); LYMPHOCYTES % (MANUAL) 1 % (13-45); TOTAL CELLS COUNTED 100; TOXIC VACUOLATION PRESENT
[2017-07-15 14:07] LABS: HYPOCHROMASIA SLIGHT; OVALOCYTES 1+; POIKILOCYTOSIS 1+; POLYCHROMASIA SLIGHT; TEAR DROP CELLS SLIGHT; TOXIC GRANULATION SLIGHT
[2017-07-15 18:28] VITALS: BP 144/72
--- NOTE | 2017-07-15 20:56 | ER Document Report ---
Doctor's Note Notes: 07/15/17 18:36 Patient resting comfortably on stretcher, no complaints at present time, awake and alert, with stable vital signs, EMS crew is in the department to transport patient to tertiary care center for further evaluation and treatment, patient is stable at this point in time for transport
== END 2017-07-15 18:36 | disposition short-term general hospital (02) ==
LOC: ER 13:04
DX: K92.2 Gastrointestinal hemorrhage, unspecified (principal); D72.829 Elevated white blood cell count, unspecified; R03.0 Elevated blood-pressure reading, without diagnosis of hypertension; I48.91 Unspecified atrial fibrillation; Z79.899 Other long term (current) drug therapy
CPT/HCPCS: 99291; 96360; 86900; 86901; 36415; 36430; 86850; 82550; 85025; 85610; 85730; 82272; 80053; P9017; J7030

== ENCOUNTER 2017-08-24 13:12 | Inpatient (IN) | payer MEDICARE, OTHER ==
[2017-08-24] MEDS ORDERED: ASPIRIN 81 MG TABLET, CHEWABLE PO ONE (13:13)
[2017-08-24 14:07] LABS: PLATELET COUNT 377 10^3/uL (150-450)
[2017-08-24] MEDS ORDERED: NORMAL SALINE 500 ML IV ONE ×2 (14:08→15:41)
--- NOTE | 2017-08-24 14:13 | RADIOLOGY REPORT (SQ) ---
EXAM DESCRIPTION: CHEST SINGLE VIEW COMPLETED DATE/TIME: 08/24/2017 1:59 pm REASON FOR STUDY: cp COMPARISON: 06/18/2017. NUMBER OF VIEWS: One view. TECHNIQUE: Single frontal radiographic view of the chest acquired. LIMITATIONS: None. FINDINGS: LUNGS AND PLEURA: Mild left basilar subsegmental atelectasis suspected. Lungs otherwise g enerally clear. MEDIASTINUM AND HILAR STRUCTURES: No masses. Contour normal. HEART AND VASCULAR STRUCTURES: Heart normal in size. Normal vasculature. BONES: No acute findings. HARDWARE: None in the chest. OTHER: No other significant finding. IMPRESSION: Suspect minimal volume loss in the left base. Otherwise, no acute cardiopulmonary disea se. TECHNICAL DOCUMENTATION: JOB ID: [id number] [facility] [employer] [employer]- All Rights Reserved
[2017-08-24 14:15] LABS: ALANINE AMINOTRANSFERASE 22 U/L (9-52); ALBUMIN 4.1 g/dL (3.5-5.0); ALKALINE PHOSPHATASE 209 U/L (38-126); ANION GAP 15 (5-19); ASPARTATE AMINO TRANSFERASE 37 U/L (14-36); BILIRUBIN,DIRECT 0.4 mg/dL (0.0-0.4); BILIRUBIN,TOTAL 1.2 mg/dL (0.2-1.3); BLOOD UREA NITROGEN 20 mg/dL (7-20); CARBON DIOXIDE 22 mmol/L (22-30); CHLORIDE 104 mmol/L (98-107); CREATINE KINASE 24 U/L (30-135); GLUCOSE 372 mg/dL (75-110); POTASSIUM 4.2 mmol/L (3.6-5.0); SODIUM 141.2 mmol/L (137-145); TOTAL PROTEIN 7.8 g/dL (6.3-8.2)
[2017-08-24 14:19] LABS: INTERNATIONAL RATION (INR) 1.12; PROTHROMBIN TIME 15.2 SEC (11.4-15.4)
[2017-08-24 14:20] LABS: PARTIAL THROMBOPLASTIN TIME 38.6 SEC (23.5-35.8)
--- NOTE | 2017-08-24 14:22 | ER Document Report ---
ED Cardiac - General Chief Complaint: Chest Pain Stated Complaint: CHEST PAIN Time Seen by Provider: 08/24/17 14:03 Notes: The patient is an 82-year-old female, past medical history hypertension, CAD with stents (on Plavix), GI bleed 1 month ago and was taken off Xarelto and aspirin, presents with 4 hours of substernal chest pain that feels like a heavy pressure. She was at rest when this started and has not had this before. She denies shortness of breath, leg swelling, abdominal pain, nausea, vomiting, fevers, numbness, tingling or radiation of pain. TRAVEL OUTSIDE OF THE [place] IN LAST 30 DAYS: No - Related Data Allergies/Adverse Reactions: morphine Allergy (Verified 08/24/17 14:11) Past Medical History - General Information source: Patient - Social History Smoking Status: Unknown if Ever Smoked Chew tobacco use (# tins/day): No Frequency of alcohol use: None Drug Abuse: None Family History: CAD, COPD, DM, Hyperlipidemia, Hypertension, Malignancy - Father with lung cancer, Other Patient has suicidal ideation: No Patient has homicidal ideation: No - Past Medical History Cardiac Medical History: Reports: Hx Congestive Heart Failure - Diastolic, Hx Heart Attack - EKG suggests probable prior infarction, Hx Hypercholesterolemia, Hx Hypertension, Hx Pulmonary Embolism - Distant history Pulmonary Medical History: Denies: Hx Asthma, Hx COPD, Hx Sleep Apnea Neurological Medical History: Denies: Hx Seizures Endocrine Medical History: Reports: Hx Diabetes Mellitus Type 1, Hx Diabetes Mellitus Type 2. Denies: Hx Hyperthyroidism, Hx Hypothyroidism Renal/ Medical History: Denies: Hx End Stage Renal Disease, Hx Peritoneal Dialysis Malignancy Medical History: Reports: Hx Skin Cancer - Excised from her nose. GI Medical History: Reports: Hx Gastroesophageal Reflux Disease. Denies: Hx Cirrhosis, Hx Hepatitis Musculoskeltal Medical History: Reports Hx Arthritis, Reports Hx Musculoskeletal Deformity Skin Medical History: Denies Hx Eczema, Denies Hx Psoriasis Psychiatric Medical History: Reports: Hx Anxiety, Hx Depression Infectious Medical History: Reports: Hx MRSA - Quite distant history. Denies: Hx C-Diff, Hx Hepatitis Past Surgical History: Reports: Hx Abdominal Surgery, Hx Appendectomy, Hx Cholecystectomy, Hx Hysterectomy, Hx Tonsillectomy, Other - Cardiac loop recorder, bilateral cataract surgery - Immunizations Hx Diphtheria, Pertussis, Tetanus Vaccination: No Hx Pneumococcal Vaccination: 04/29/13 Review of Systems - Review of Systems Notes: REVIEW OF SYSTEMS: CONSTITUTIONAL: -fevers, -chills EENT: -eye pain, -difficulty swallowing, -nasal congestion CARDIOVASCULAR: +chest pain, -syncope. RESPIRATORY: -cough, -SOB GASTROINTESTINAL: -abdominal pain, - nausea, -vomiting, -diarrhea GENITOURINARY: -dysuria, -hematuria MUSCULOSKELETAL: -back pain, -neck pain SKIN: -rash or skin lesions. HEMATOLOGIC: -easy bruising or bleeding. LYMPHATIC: -swollen, enlarged glands. NEUROLOGICAL: -altered mental status or loss of consciousness, -headache, - neurologic symptoms PSYCHIATRIC: -anxiety, -depression. ALL OTHER SYSTEMS REVIEWED AND NEGATIVE. Physical Exam - Vital signs Vitals: Pulse Ox 98 08/24/17 13:30 - Notes Notes: PHYSICAL EXAMINATION: GENERAL: Initially diaphoretic on arrival to the ER. HEAD: Atraumatic, normocephalic. EYES: Pupils equal round and reactive to light, extraocular movements intact, sclera anicteric, conjunctiva are normal. ENT: nares patent, oropharynx clear without exudates. Moist mucous membranes. NECK: Normal range of motion, supple without lymphadenopathy LUNGS: Breath sounds clear to auscultation bilaterally and equal. No wheezes rales or rhonchi. HEART: Tachycardia, regular rhythm. ABDOMEN: Soft, nontender, normoactive bowel sounds. No guarding, no rebound. No masses appreciated. EXTREMITIES: Normal range of motion, no pitting or edema. No cyanosis. NEUROLOGICAL: Cranial nerves grossly intact. Normal speech, normal gait. Normal sensory and motor exams. PSYCH: Normal mood, normal affect. SKIN: Warm, Dry, normal turgor, no rashes or lesions noted. Course - Re-evaluation Re-evalutation: Patient arrives with 1.5 hours of substernal chest pressure is chest pain-free on arrival to the ER after a SL Nitro. Her EKG showed sinus tachycardia, but no evidence of a STEMI and her first troponin is negative. CTA ordered due to the tachycardia and tachypnea with an elevated d-dimer, but this did not show any evidence of a PE or aortic dissection. She has a chronic leukocytosis and her WBC count is in her normal range. Patient has a HEART score of 7 and her PMD is Dr. Kamara. She requires further evaluation of her chest pain. 08/24/17 17:18 Spoke to Alok Mahan and she has accepted patient to Tele Obs. - Vital Signs Vital signs: Temp Pulse Resp BP Pulse Ox 33 H 100/58 L 97 08/24/17 14:10 08/24/17 14:10 08/24/17 14:10 - Laboratory Result Diagrams: 08/24/17 13:50 08/24/17 13:50 Laboratory results interpreted by me: 08/24/17 08/24/17 08/24/17 13:50 13:50 13:50 WBC 35.9 H* Manual Hct 54.0 H Seg Neuts % (Manual) 90 H Lymphocytes % (Manual) 2 L Abs Neuts (Manual) 33.4 H Abs Basophils (Manual) 0.7 H APTT 38.6 H D-Dimer Est GFR ( Amer) 59 L Est GFR (Non-Af Amer) 49 L Glucose 372 H AST 37 H Alkaline Phosphatase 209 H Creatine Kinase 24 L 08/24/17 13:50 WBC Manual Hct Seg Neuts % (Manual) Lymphocytes % (Manual) Abs Neuts (Manual) Abs Basophils (Manual) APTT D-Dimer 1.36 H Est GFR ( Amer) Est GFR (Non-Af Amer) Glucose AST Alkaline Phosphatase Creatine Kinase - Diagnostic Test Radiology reviewed: Image reviewed, Reports reviewed Radiology results interpreted by me: CXR: NAD - EKG Interpretation by Me EKG shows normal: Sinus rhythm, [place], Intervals, QRS Complexes, ST-T Waves Rate: Tachycardia Voltage: Consistant with LVH When compared to previous EKG there are: Previous EKG unavailable Discharge - Discharge Clinical Impression: Chest pain Qualifiers: Chest pain type: unspecified Qualified Code(s): R07.9 - Chest pain, unspecified Condition: Stable Disposition: ADMITTED OBSERVATION Admitting Provider: Anat Mahan Unit Admitted: Telemetry
[2017-08-24 14:27] LABS: CREATINE KINASE MB 0.53 ng/mL (<4.55); TROPONIN I < 0.012 ng/mL
[2017-08-24 14:41] LABS: WHITE BLOOD COUNT 35.9 10^3/uL (4.0-10.5)
[2017-08-24 14:48] LABS: ABSOLUTE LYMPHOCYTES# (MANUAL) 0.7 10^3/uL (0.5-4.7); ABSOLUTE MONOCYTES # (MANUAL) 1.1 10^3/uL (0.1-1.4); ABSOLUTE NEUTROPHILS# (MANUAL) 33.4 10^3/uL (1.7-8.2); ANISOCYTOSIS 2+; BAND NEUTROPHILS % (MANUAL) 3 % (3-5); BASOPHILS % (MANUAL) 2 % (0-2); EOSINOPHILS % (MANUAL) 0 % (0-6); HYPOCHROMASIA SLIGHT; LYMPHOCYTES % (MANUAL) 2 % (13-45); MONOCYTES % (MANUAL) 3 % (3-13); OVALOCYTES 1+; PLATELET COMMENT ADEQUATE; PLATELET LARGE PRESENT; POIKILOCYTOSIS 1+; POLYCHROMASIA SLIGHT; ROULEAUX 1+; SEGMENTED NEUTROPHILS % (MAN) 90 % (42-78); TEAR DROP CELLS SLIGHT; TOTAL CELLS COUNTED 100; TOXIC GRANULATION 1+; TOXIC VACUOLATION PRESENT
[2017-08-24] MEDS ORDERED: MORPHINE SULFATE 10 MG/ML INJ IV ONE (15:00)
--- NOTE | 2017-08-24 16:45 | RADIOLOGY REPORT (SQ) ---
EXAM DESCRIPTION: CTA CHEST COMPLETED DATE/TIME: 08/24/2017 4:27 pm REASON FOR STUDY: chest pain, tachycardia, hypotension, high d-dimer COMPARISON: None. TECHNIQUE: CT scan of the chest performed using helical scanning technique with dynamic intravenous contrast injection. Images reviewed with lung, soft tissue and bone windows. Reconstructed coronal and sagittal MPR images reviewed. Additional 3 dimensional post-processing performed to develop Maximal Intensity Projection images (NH P). All images stored on PACS. All CT scanners at this facility use dose modulation, iterative reconstruction, and/or weight based d osing when appropriate to reduce radiation dose to as low as reasonably achievable (ALARA). [facility]: Dose Right [facility]: CareDose [facility]: Dose Right [facility]: Teradose 4D [facility]: Adwings CONTRAST TYPE AND DOSE: contrast/concentration: Isovue 370.00 mg/ml; Total Contrast Delivered: 98.0 ml; Total Saline Delivered: 90.0 ml Contrast bolus adequate for pulmonary arteries and aorta. RENAL FUNCTION: Creatinine 1.1 RADIATION DOSE: CT Rad equipment meets quality standard of care and radiation dose reduction techniq ues were employed. CTDIvol: 14.9 - 28.7 mGy. DLP: 1019 mGy-cm. . LIMITATIONS: None. FINDINGS: LUNGS AND PLEURA: Motion artifact and areas of probable subsegmental atelectasis in the dwayne ng bases. AORTA AND GREAT VESSELS: No aneurysm. Contrast bolus not optimized for the aorta. HEART: No pericardial effusion. Mild coronary calcification. PULMONARY ARTERIES: No emboli visualized in the main pulmonary arteries or the segmental branches. HILAR AND MEDIASTINAL STRUCTURES: No identified masses or abnormal nodes. HARDWARE: None in the chest. UPPER ABDOMEN: No significant findings. Limited exam. THYROID AND OTHER SOFT TISSUES: No masses. No adenopathy. BONES: No acute or significant finding. 3D MIPS: Confirm above findings. OTHER: No other significant finding. IMPRESSION: 1. No pulmonary embolus. 2. No aortic aneurysm or dissection. 3. Allowing for motion a rtifact and subsegmental atelectasis, no acute pulmonary infiltrate detected. COMMENT: Quality ID # [id number]: Final reports with documentation of one or more dose reduction techniques (e.g., Automated exposure control, adjustment of the mA and/or kV according to patient size, use of iterative reconstruction technique) TECHNICAL DOCUMENTATION: JOB ID: [id number] [employer]- All Rights Reserved
[2017-08-24] MEDS ORDERED: TRAZODONE HCL 50 MG TABLET PO PRN (18:08)
[2017-08-24] MEDS ORDERED: OXYCODONE-ACETAMINOPHEN 5-325 MG TABLET PO PRN (18:08)
[2017-08-24] MEDS ORDERED: TRAMADOL HCL 50 MG TABLET PO PRN (18:08)
[2017-08-24] MEDS ORDERED: DEXTROSE 40% GEL 15 GM TUBE PO PRN ×2 (18:09)
[2017-08-24] MEDS ORDERED: GLUCAGON,HUMAN RECOMB 1 MG INJ IM PRN (18:09)
[2017-08-24] MEDS ORDERED: DEXTROSE 50%-WATER 25 GM/50 ML DISP.SYRIN IV PRN ×2 (18:09)
--- NOTE | 2017-08-24 19:03 | HISTORY AND PHYSICAL E ---
History and Physical NAME: ORACIO PEDROZA : 1935 AGE: 82Y ADMITTED: 08/24/2017 ROOM: ED10 CODE STATUS: DO NOT RESUSCITATE/DO NOT INTUBATE. PRIMARY CARE PROVIDER: Dr. Kamara. CHIEF COMPLAINT: Chest pain. HISTORY OF PRESENT ILLNESS: The patient is a very pleasant 82-year-old female with a past medical history of chronic leukocytosis as well as cerebrovascular disease. The patient presented to the emergency department via EMS, after her daughter called 911, after the patient described a brief episode of chest pain, tightness and a feeling of restriction, as if an "elephant was on my chest." The patient stated that the episode was accompanied with a clammy sensation when she became diaphoretic and was short of breath. The patient stated that the symptoms persisted until she was given 4 baby aspirin and was placed on O2 by EMS. With that, the patient had complete resolution of symptoms. The patient denies any accompanying symptoms to include nausea, vomiting, diarrhea, dizziness, fevers or chills. The patient does have a history of DVT and subsequently the patient did have a CTA after presentation, and findings were unremarkable for emboli or aneurysm. The patient, at this moment, states that her symptoms feel much improved; however, given the patient's multiple risk factors, her heart score is greater than 7, and therefore she was referred to the hospitalist for observation and management. Upon presentation to the emergency department, the patient was found to be in normal sinus rhythm with no EKG changes in comparison to previous imaging, as well as an unremarkable set of cardiac enzymes. PAST MEDICAL HISTORY: Remarkable for: 1. Chronic leukocytosis, which is followed by Dr. Mercer, Hematology. 2. Chronic diastolic dysfunction. 3. General debility. 4. Diabetes mellitus type 2. 5. Hypertension. 6. Hyperlipidemia. 7. Cerebrovascular disease. 8. Uncertain if the patient has coronary artery disease. 9. Gastroesophageal reflux disease. 10. History of Clostridium difficile. 11. History of pulmonary embolism. 12. History of DVT. 13. Depression. 14. History of gastrointestinal bleeding. PAST SURGICAL HISTORY: Remarkable for: 1. Appendectomy. 2. Hysterectomy. 3. Tonsillectomy. 4. Bilateral cataract surgery. 5. Cardiac loop recorder. 6. Cholecystectomy. ALLERGIES: No known drug allergies. SOCIAL HISTORY: The patient currently resides at home with her daughter, who is her surrogate decision-maker, Jaylyn. She can be reached at [phone] or [phone]. The patient denies any history of alcohol use, illicit drug use or tobacco use. FAMILY MEDICAL HISTORY: The patient's father is . He of lung cancer. The patient's mother of uncertain causes. The patient does have a family history of coronary artery disease, COPD, diabetes, hyperlipidemia and hypertension. The patient does have a daughter who is healthy. REVIEW OF SYSTEMS: CONSTITUTIONAL: The patient denies any loss of appetite. No fevers, chills, dizziness, but does admit to weakness. INTEGUMENTARY: The patient denies any diaphoresis, rash or bruising, itching. HEENT: No vision changes or hearing loss, nasal drainage, sore throat. No headache. CVS: The patient denies any edema, heart palpitations. Does admit to chest pain. RESPIRATORY: Denies any cough, sputum production or hemoptysis. Did have 1 episode of dyspnea earlier today. GI: Denies any nausea, vomiting, diarrhea, abdominal pain, bleeding, hematemesis, constipation, melena, hematochezia. : Denies any hematuria, polyuria or dysuria. MUSCULOSKELETAL: The patient does have chronic lower back pain, but denies any acute joint pains at this time. NEUROLOGICAL: No seizures, tremors or loss of consciousness. HEMATOLOGICAL: The patient denies any yuliet bleeding. Does admit to easy bruising and a history of rectal bleeding. ENDOCRINE: Denies any recent weight changes. PSYCHIATRIC: Denies suicidal or homicidal ideation. The rest of the review of the other organ systems is negative. PHYSICAL EXAMINATION: GENERAL: On examination, the patient is an 82-year-old female, who is awake, alert and oriented to person, place, time and situation. She is verbal and conversational, and does not appear to be in any acute distress. VITAL SIGNS: Temperature is 98.7, pulse 91, respirations 17, blood pressure is 130/81, oxygen saturation is 100% on room air. SKIN: Warm and dry. No rashes. She is not diaphoretic. A little pale. HEENT: Pupils equal, round and reactive to light and accommodation. Conjunctivae are pink. Sclerae are anicteric. No mouth lesions. Tongue is benign. NECK: Supple. No JVD. No lymphadenopathy or thyromegaly. CVS: Heart is regular. There is no rub. CHEST: Clear, symmetrical, unlabored. ABDOMEN: Soft, nontender, nondistended. Bowel sounds are present. No palpable organomegaly. BACK: No CVA tenderness or sacral edema. EXTREMITIES: No clubbing, cyanosis, edema or peripheral signs of embolization. Plus 1 pedal pulses noted bilaterally. All 4 extremities are appropriately warm to the touch. PSYCHIATRIC: Appropriate affect, pleasant mood. DIAGNOSTICS: Lab values are as follows: Hematology obtained on 08/24/2017: WBCs of 35.9, hemoglobin is , hematocrit is 46.1, platelet count is 377,000. Chemistry obtained on 08/24/2017: Sodium is 141, potassium 4.2, chloride is 104, carbon dioxide 22, BUN 20, creatinine 1.08, glucose 372, calcium is 10. Bilirubin is 1.2. AST 37. Troponin is 0.012. Chest x-ray obtained on 08/24/2017 reveals suspect minimal volume loss of the left base, otherwise no acute cardiopulmonary disease. Chest and abdominal CTA obtained on 08/24/2017 reveals no pulmonary emboli, no aortic aneurysm or dissection. No acute pulmonary infiltrate detected. IMPRESSION AND PLAN: 1. Chest pain. Will admit the patient to continue on telemetry. Will obtain serial cardiac enzymes and repeat EKG. The patient is a year out from the last catheterization; therefore, will schedule for a stress test and follow. 2. Diabetes mellitus type 2. Will resume the patient's home medications, as well as additional sliding scale coverage. 3. Hypertension. The patient's blood pressure is in acceptable range. Will continue home medication as well as reconcile. 4. Gastroesophageal reflux disease. Will continue PPI therapy. 5. Hyperlipidemia. Will continue statin. 6. History of GI bleed. The patient has recently been stopped on aspirin and Xarelto and changed only to Plavix for now. This also is for cerebrovascular disease. 7. DVT prophylaxis. Will add subcutaneous heparin, as well as LIAN hose. DISPOSITION: The patient is a DO NOT RESUSCITATE/DO NOT INTUBATE, as the patient has expressed a desire for natural . Pending patient's symptomatology and diagnostic findings, will reevaluate in the a.m. We will observe the patient in continuous telemetry. The patient's expected length of stay should not surpass 2 midnights. Time spent on this admission, including assessment, plan, physical examination, patient education and review of records is 45 minutes. DICTATING PHYSICIAN: SARAI HARRELL NP [id number] PHY#: [id number] ID: [id number] JOB#: [id number] ACCT: [id number] cc:UTE BOWIE M.D. > [facility] CENTERArtemio
[2017-08-24] MEDS ORDERED: HEPARIN SOD (PORCINE) 5,000 UNIT/ML 1 ML SYRINGE SUBCUT SCH (22:00)
[2017-08-24] MEDS: METOPROLOL TARTRATE 100 MG TABLET PO SCH (23:06)
[2017-08-24] MEDS: HUM INSULIN NPH/REG INSULIN HM 100 UNIT/1 ML 3 ML SUBCUT SCH (23:22)
[2017-08-24] MEDS: GABAPENTIN 300 MG CAPSULE PO SCH (23:31)
[2017-08-24] MEDS: ATORVASTATIN CALCIUM 80 MG TABLET PO SCH (23:31)
[2017-08-24] MEDS: BUSPIRONE HCL 10 MG TABLET PO SCH (23:32)
[2017-08-25] MEDS ORDERED: HEPARIN SOD (PORCINE) 1,000 UNIT/ML 10 ML VIAL IV ONE (00:10)
[2017-08-25] MEDS: HEPARIN SODIUM,PORCINE/D5W 25,000 UNIT/250 ML RTUINJ IV PRN (01:31)
[2017-08-25] MEDS ORDERED: HEPARIN SOD (PORCINE) 1,000 UNIT/ML 10 ML VIAL IV PRN (03:10)
[2017-08-25 04:19] LABS: APPEARANCE,URINE SLIGHTLY-CLOUDY; BILIRUBIN,URINE NEGATIVE (NEGATIVE); COLOR,URINE YELLOW; GLUCOSE, URINE 50 mg/dL (NEGATIVE); KETONES,URINE NEGATIVE (NEGATIVE); LEUKOCYTE ESTERASE,URINE MODERATE (NEGATIVE); NITRITE,URINE NEGATIVE (NEGATIVE); PROTEIN,URINE NEGATIVE (NEGATIVE); URINE SPECIFIC GRAVITY 1.027; UROBILINOGEN,URINE NEGATIVE mg/dL (<2.0)
[2017-08-25] MEDS: LANSOPRAZOLE 30 MG TAB.RAP.DR PO SCH (06:24)
[2017-08-25] MEDS ORDERED: (PENDING PHARMACY ID) (Rosuvastatin Calcium [Crestor] 40 MG) PO SCH (08:00)
--- NOTE | 2017-08-25 08:02 | EKG REPORT ---
SEVERITY:- ABNORMAL ECG - SINUS RHYTHM PROBABLE INFERIOR INFARCT, AGE INDETERMINATE CONSIDER ANTEROSEPTAL INFARCT BORDERLINE PROLONGED QT INTERVAL : Confirmed by: Seble Miguel MD 25-Aug-2017 08:01:17
--- NOTE | 2017-08-25 08:02 | EKG REPORT ---
SEVERITY:- ABNORMAL ECG - SINUS TACHYCARDIA LVH BY VOLTAGE PROBABLE INFERIOR INFARCT, OLD : Confirmed by: Seble Miguel MD 25-Aug-2017 08:01:31
--- NOTE | 2017-08-25 08:02 | EKG REPORT ---
SEVERITY:- BORDERLINE ECG - SINUS RHYTHM BORDERLINE PROLONGED QT INTERVAL : Confirmed by: Seble Miguel MD 25-Aug-2017 08:01:27
[2017-08-25] MEDS: SITAGLIPTIN PHOSPHATE 50 MG TABLET PO SCH (09:25)
[2017-08-25] MEDS: BUSPIRONE HCL 10 MG TABLET PO SCH ×2 (09:26→21:14)
[2017-08-25] MEDS: DOCUSATE SODIUM 100 MG CAPSULE PO SCH ×2 (09:28→17:38)
[2017-08-25] MEDS: METOPROLOL TARTRATE 100 MG TABLET PO SCH ×2 (09:28→21:21)
[2017-08-25] MEDS: GLIMEPIRIDE 1 MG TABLET PO SCH ×2 (09:28→16:29)
[2017-08-25] MEDS: LOSARTAN POTASSIUM 50 MG TABLET PO SCH (09:29)
[2017-08-25] MEDS: CLOPIDOGREL BISULFATE 75 MG TABLET PO SCH (09:29)
[2017-08-25] MEDS: ASPIRIN 81 MG TABLET, ENT COATED PO SCH (09:29)
[2017-08-25] MEDS: GABAPENTIN 300 MG CAPSULE PO SCH ×2 (09:29→21:12)
[2017-08-25] MEDS: AMLODIPINE BESYLATE 10 MG TABLET PO SCH (09:29)
[2017-08-25] MEDS: SERTRALINE HCL 50 MG TABLET PO SCH (09:30)
[2017-08-25] MEDS: ISOSORBIDE DINITRATE 10 MG TABLET PO SCH (09:30)
--- NOTE | 2017-08-25 11:13 | PROGRESS NOTE E ---
Progress Note NAME: ORACIO PEDROZA : 1935 AGE: 82Y DATE: 08/25/2017 ROOM: 435 SUBJECTIVE: The patient is currently sitting on the side of the bed. She is finishing her breakfast. The patient states that she feels much better in comparison to yesterday. She had no further episodes overnight. The patient denies any nausea, vomiting, diarrhea. No shortness of breath, dizziness, chest pain. No fevers, chills. The patient has been afebrile. Her blood pressures have been in a good range, and the patient does not voice any concerns at this time. Overnight, it appears that the patient's troponin did bump. The patient subsequently was started on a heparin drip given her previous history of GI bleed. The patient denies any symptoms of this overnight. Will follow. REVIEW OF SYSTEMS: Rest of review of systems negative. MEDICATIONS: Medications have been reviewed. OBJECTIVE: GENERAL: The patient is an 82-year-old female who is awake, alert, and oriented to person, place, time, and situation. She is verbal, conversational, does not appear to be in any acute distress. VITAL SIGNS: Are as follows: Temperature is 97.5, pulse 89, respirations 16, blood pressure is 146/62, oxygen saturation 97% on 2 L nasal cannula. SKIN: Warm and dry. No rash. Not diaphoretic. HEENT: Pupils equal, round, reactive to light and accommodation. Conjunctivae pink. No JVP. CARDIOVASCULAR SYSTEM: Heart is regular. There is no murmur or rub. CHEST: Clear, symmetrical, unlabored. ABDOMEN: Soft, nontender, nondistended. BACK: No CVA tenderness, sacral edema. EXTREMITIES: No clubbing, cyanosis, edema. PSYCHIATRIC: Appropriate affect. Pleasant mood. DIAGNOSTICS: Lab values are as follows: Hematology obtained on 08/24/2017: WBCs are 35.9, hemoglobin was difficult to calculate, hematocrit 37.7, platelet count is 377,000. Chemistry obtained on 08/25/2017: Troponin was 0.248 and then began trending down. Next troponin was 0.236. IMPRESSION AND PLAN: 1. ACUTE CORONARY SYNDROME. It appears the patient may have had an NSTEMI overnight. Do appreciate Cardiology input on this. The patient's stress test will be deferred, and the patient will continue on heparin drip for now. Will follow. 2. DIABETES MELLITUS TYPE 2. Will continue the patient's home medications as well as additional sliding scale coverage. 3. HYPERTENSION. Blood pressure has been in accepted range. Continue current medication. 4. GASTROESOPHAGEAL REFLUX DISEASE. Will continue PPI therapy. 5. HYPERLIPIDEMIA. Will continue statin. 6. HISTORY OF GI BLEED. The patient will be receiving aspirin due to ACS; however, it is to be noted the patient had significant GI bleed x2. Will monitor closely with heparin drip. 7. CEREBROVASCULAR DISEASE. The patient does take Plavix for this. DISPOSITION: The patient is a DO NOT RESUSCITATE/DO NOT INTUBATE. Pending patient's symptomatology and diagnostic findings, will reevaluate in the a.m. Will transition to inpatient telemetry as expected length of stay will surpass two midnights. Time spent on this followup including assessment, plan, physical examination, patient education, review of records, and specialty collaboration is 35 minutes. DICTATING PHYSICIAN: SARAI HARRELL NP [id number] PHY#: [id number] ID: [id number] JOB#: [id number] ACCT: [id number] cc: > MTDD
[2017-08-25] MEDS: HUM INSULIN NPH/REG INSULIN HM 100 UNIT/1 ML 3 ML SUBCUT SCH ×2 (11:59→21:17)
[2017-08-25] MEDS: INSULIN LISPRO 100 UNIT/ML 3 ML VIAL SUBCUT PRN ×2 (12:00→16:27)
[2017-08-25] MEDS ORDERED: NYSTATIN CREAM 15 GM TP SCH (18:00)
[2017-08-25] MEDS ORDERED: (PENDING PHARMACY ID) (Nystatin [Nystatin] 1 APPLIC) TP SCH (18:00)
[2017-08-25] MEDS ORDERED: NYSTATIN TOPICAL POWDER 15 GM TP ONE (20:00)
[2017-08-25] MEDS: ATORVASTATIN CALCIUM 80 MG TABLET PO SCH (21:13)
[2017-08-26] MEDS: HEPARIN SODIUM,PORCINE/D5W 25,000 UNIT/250 ML RTUINJ IV PRN (02:55)
[2017-08-26] MEDS: LANSOPRAZOLE 30 MG TAB.RAP.DR PO SCH (05:16)
[2017-08-26] MEDS: ASPIRIN 81 MG TABLET, ENT COATED PO SCH (11:23)
[2017-08-26] MEDS: LOSARTAN POTASSIUM 50 MG TABLET PO SCH (11:23)
[2017-08-26] MEDS: DOCUSATE SODIUM 100 MG CAPSULE PO SCH ×2 (11:23→17:32)
[2017-08-26] MEDS: GABAPENTIN 300 MG CAPSULE PO SCH ×2 (11:24→22:12)
[2017-08-26] MEDS: SERTRALINE HCL 50 MG TABLET PO SCH (11:24)
[2017-08-26] MEDS: CLOPIDOGREL BISULFATE 75 MG TABLET PO SCH (11:24)
[2017-08-26] MEDS: METOPROLOL TARTRATE 100 MG TABLET PO SCH ×2 (11:24→22:12)
[2017-08-26] MEDS: SITAGLIPTIN PHOSPHATE 50 MG TABLET PO SCH (11:25)
[2017-08-26] MEDS: NYSTATIN TOPICAL POWDER 15 GM TP SCH ×2 (11:25→17:32)
[2017-08-26] MEDS: ISOSORBIDE DINITRATE 10 MG TABLET PO SCH (11:29)
[2017-08-26] MEDS: BUSPIRONE HCL 10 MG TABLET PO SCH ×2 (11:30→22:12)
[2017-08-26] MEDS: HUM INSULIN NPH/REG INSULIN HM 100 UNIT/1 ML 3 ML SUBCUT SCH ×2 (11:49→22:11)
[2017-08-26] MEDS: AMLODIPINE BESYLATE 10 MG TABLET PO SCH (11:50)
[2017-08-26] MEDS: GLIMEPIRIDE 1 MG TABLET PO SCH ×2 (11:50→16:55)
--- NOTE | 2017-08-26 12:01 | PDOC CONSULTATION ---
Consultation Consult Date: 08/25/17 Attending physician:: RAINE ALEXANDRA Consult reason:: Chest pain History of Present Illness Admission Date/PCP: 08/25/17 09:52 Patient complains of: Chest pain History of Present Illness: ORACIO PEDROZA is an 82-year-old female, past medical history hypertension, CAD with stents (on Plavix), GI bleed 1 month ago and was taken off Xarelto and aspirin, presents with 4 hours of substernal chest pain that feels like a heavy pressure. She was at rest when this started and has not had this before. She denies shortness of breath, leg swelling, abdominal pain, nausea, vomiting, fevers, numbness, tingling or radiation of pain. Subsequently cardiac enzymes came back suggestive. I was therefore asked to evaluate this patient. Patient tells me that she has been chest pain-free since admission. Patient however has not ambulated much. This history was reviewed and confirmed and supplemented. Patient's daughter is the surrogate decision-maker. Past Medical History Cardiac Medical History: Reports: Congestive Heart Failure - Diastolic, Myocardial Infarction - EKG suggests probable prior infarction, Hyperlipidema, Hypertension, Pulmonary Embolism - Distant history Pulmonary Medical History: Denies: Asthma, Chronic Obstructive Pulmonary Disease (COPD), Sleep Apnea Neurological Medical History: Denies: Seizures Endocrine Medical History: Reports: Diabetes Mellitus Type 1, Diabetes Mellitus Type 2 Denies: Hyperthyroidism, Hypothyroidism Renal/ Medical History: Denies: End Stage Renal Disease Malignancy Medical History: Reports: Skin Cancer - Excised from her nose. 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 Denies: Clostridium Difficile Past Surgical History Past Surgical History: Reports: Appendectomy, Cholecystectomy, Hysterectomy, Tonsillectomy, Other - Cardiac loop recorder, bilateral cataract surgery Social History Information Source: Patient Smoking Status: Current Some Day Smoker Number of Years Smokin Frequency of Alcohol Use: None Hx Recreational Drug Use: No Drugs: None Hx Prescription Drug Abuse: No - Advance Directive Resuscitation Status: Do Not Resuscitate Surrogate healthcare decision maker:: Patient's daughter is the surrogate decision-maker Family History Family History: CAD, COPD, DM, Hyperlipidemia, Hypertension, Malignancy - Father with lung cancer, Other Parental Family History Reviewed: Yes Children Family History Reviewed: Yes Sibling(s) Family History Reviewed.: Yes Medication/Allergy Home Medications: Amlodipine Besylate [Norvasc 10 mg Tablet] 10 mg PO QAM 08/24/17 Buspirone HCl [Buspar 15 mg Tablet] 15 mg PO BID 08/24/17 Clopidogrel Bisulfate [Plavix 75 mg Tablet] 75 mg PO DAILY 08/24/17 Docusate Sodium [Colace 100 mg Capsule] 100 mg PO BID 08/24/17 Gabapentin [Neurontin 300 mg Capsule] 300 mg PO Q12 08/24/17 Glimepiride [Amaryl] 2 mg PO BID 08/24/17 Hum Insulin NPH/Reg Insulin Hm [Novolin 70-30 100 Unit/ml Vial] 65 units SQ BID 08/24/17 Losartan Potassium [Cozaar 50 mg Tablet] 50 mg PO DAILY 08/24/17 Metoprolol Tartrate [Lopressor 100 mg Tablet] 100 mg PO Q12 08/24/17 Oxycodone HCl/Acetaminophen [Percocet 5-325 mg Tablet] 1 tab PO Q4HP PRN Pantoprazole Sodium [Protonix] 40 mg PO DAILY 08/24/17 RX: Isosorbide Dinitrate [Isordil Titradose 10 mg Tablet] 30 mg PO DAILY RX: Nystatin 1 applic TP Q12 08/24/17 Rosuvastatin Calcium [Crestor] 40 mg PO QAM 08/24/17 Sertraline HCl [Zoloft 50 mg Tablet] 50 mg PO DAILY 08/24/17 Sitagliptin Phosphate [Januvia] 100 mg PO DAILY 08/24/17 Tramadol HCl [Ultram 50 mg Tablet] 50 mg PO Q8HP PRN 08/24/17 Trazodone HCl [Desyrel 50 mg Tablet] 50 mg PO HSP PRN 08/24/17 Allergies/Adverse Reactions: morphine Allergy (Verified 08/24/17 14:11) Review of Systems Review of Systems: Please see history of present illness and past medical history as wall. Constitutional: No fever or chills reported. Head : No recent chronic headaches, recent head injury. Eyes: No recent eye pain, diplopia, redness, discharge, acute visual changes. Ears: No recent chronic ear pain, acute hearing loss, ear discharge. Oral cavity: No recent ulcerations, bleeding, oral cavity discomfort. Neck: No recent acute neck pain reported. Hematologic: No recent easy bruising or bleeding or hematologic malignancy reported. Lymphatic: No recent lymphatic malignancy, chronic lymphadenopathy reported yet Cardiovascular system review: See history of present illness. Respiratory system review: No recent chronic cough, hemoptysis, blood clots in the lungs reported. Mild Shortness of breath on exertion Gastrointestinal system review: Negative for any recent acute or chronic abdominal pain, hematemesis, melena, recent change in bowel habits. Genitourinary system review: No recent acute or chronic hematuria, flank pain, UTI etc. reported. Skin system review: Negative for any recent abnormal bruising, no rash, no pruritus reported. Neurologic: No prior history of strokes, mini strokes, seizure disorder. Psychologic: No history of major psychosis or major depression reported. Musculoskeletal: Minor aches and pains reported. No acute joint swelling reported. Endocrine: No recent polyuria, polydipsia, recent heat or cold intolerance. Physical Exam Vital Signs: Temp Pulse Resp BP Pulse Ox 97.3 F 81 18 104/56 L 98 08/25/17 16:00 08/25/17 19:00 08/25/17 16:00 08/25/17 16:00 08/25/17 16:00 Intake & Output 08/24/17 08/25/17 08/26/17 06:59 06:59 06:59 Intake Total 1135 Balance 1135 Exam: GENERAL: well-nourished and in no acute distress. Alert and oriented x3 HEAD: Atraumatic, normocephalic. EYES: Pupils equal round and reactive to light, extraocular movements intact, sclera anicteric, conjunctiva are normal. ENT: TMs normal, nares patent, oropharynx clear without exudates. Moist mucous membranes. No oral ulcerations or bleeding gums noted NECK: supple without lymphadenopathy. Trachea is central. No cervical or axillary lymphadenopathy noted. Carotids are 2+, JVD WNL LUNGS: Respiration seems nonlabored, no significant accessory muscle action noted. Breath sounds clear to auscultation bilaterally and equal noted. No wheezes rales or rhonchi noted. No significant dullness noted on percussion. CHEST: Palpation of the chest wall shows no significant chest wall tenderness. No other significant abnormalities noted. 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 ABDOMEN: Soft, no significant tenderness appreciated, normoactive bowel sounds. No guarding, no rebound. No rigidity noted . No masses appreciated. EXTREMITIES: Pedal pulses are 1-2+, no calf tenderness noted. No clubbing or cyanosis.trace to 1+ pedal edema noted NEUROLOGICAL: Focused neurological exam showed no significant neurologic deficit. Normal speech, no focal weakness appreciated. PSYCH: Normal mood, normal affect. Judgment and insight within normal limits. SKIN: No significant ecchymosis, rash, ulcerations or signs of pruritus noted. MUSCULOSKELETAL EXAM: No significant joint swelling noted. Results Laboratory Results: 08/25/17 08/25/17 08/25/17 10:30 14:25 18:25 Troponin I 0.108 0.085 0.079 EKG Comments: Shows sinus rhythm, no acute ST-T wave changes are noted. Impressions: Chest X-Ray 08/24/17 13:13 IMPRESSION: Suspect minimal volume loss in the left base. Otherwise, no acute cardiopulmonary disease. Chest/Abdomen CTA 08/24/17 14:47 IMPRESSION: 1. No pulmonary embolus. 2. No aortic aneurysm or dissection. 3. Allowing for motion artifact and subsegmental atelectasis, no acute pulmonary infiltrate detected. Assessment & Plan - Diagnosis (1) Non-STEMI (non-ST elevated myocardial infarction) Is this a current diagnosis for this admission?: Yes (2) Chest pain Qualifiers: Chest pain type: unspecified Qualified Code(s): R07.9 - Chest pain, unspecified Is this a current diagnosis for this admission?: Yes (3) CAD (coronary artery disease) Qualifiers: Coronary Disease-Associated Artery/Lesion type: [place] artery [place] vs. 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 Patient being treated adequately with heparin , aspirin, Plavix, beta blockers, long-acting nitrates. Will consider adding Ranexa. Patient also currently on high-dose statin therapy which should be continued. Chest pain: Most likely related to myocardial infarction. Fortunately there has been no recurrence and therefore after discussion with the patient, the agreed on noninvasive evaluation initially. Patient therefore was scheduled for a stress test. A 2D echocardiogram was also ordered. Coronary artery disease: Patient gives history of stent placement. Will therefore continue on Plavix. Anxiety disorder: Patient would benefit from anxiolytics especially SSRI agents. Diabetes: Recommend good control of diabetes but in light any hyper or hypoglycemia. - Time Time Spent: 50 to 70 Minutes - CODE STATUS was discussed, patient remains full code. Surrogate decision-maker patient's daughter. Multiple medical problems were addressed. More than 50% of the time spent coordinating care, discussing management plans with involved caregivers. Management plans discussed with involved personnels. Medical decision making was of moderate to high complexity , patient's has multiple comorbidities. Medications reviewed and adjusted accordingly: Yes
[2017-08-26] MEDS ORDERED: AMLODIPINE BESYLATE 10 MG TABLET PO ONE (12:30)
[2017-08-26] MEDS ORDERED: GLIMEPIRIDE 1 MG TABLET PO ONE (12:30)
--- NOTE | 2017-08-26 13:06 | DRAGON STRESS TEST REPORT ---
INTRAVENOUS LEXISCAN CARDIOLITE STRESS TEST USING SINGLE PHOTON EMMISION COMPUTERIZED TOMOGRAPHIC. DATE OF PROCEDURE: August 26, 2017 INDICATION : Chest pain and non-STEMI CARDIAC RISK FACTORS: Diabetes, hypertension, dyslipidemia, known CAD with prior stent placement RESTING EKG: Sinus rhythm without any baseline ST-T wave changes. STRESS EKG: No significant changes noted with LexiScan bolus REASON FOR TERMINATION: Protocol. PROCEDURE REPORT: Baseline heart rate 86 beats per minute with blood pressure of 141/63. Patient had no significant complaints. Heart rate at 2 minutes post bolus 101 with a blood pressure of 124/60. 3 minutes post bolus heart rate 100 with blood pressure of 126/60. No significant EKG changes were noted. Patient had no significant complaints during the procedure or postprocedure. Patient injected with Aminophyllin 75 mg at 3 minutes or later after Lexiscan bolus. CONCLUSIONS: Normal EKG and hemodynamic response to IV LexiScan. NUCLEAR DATA: At rest the patient was given 14.93 millicuries of technetium 99 sestamibi injected intravenously. As per protocol rest gated SPECT images were obtained. Subsequently the patient was given intravenous LexiScan at a dose of 0.4 mg in 5 mL intravenously, followed by flush with normal saline. Subsequently the stress dose of 42.0 millicuries of technetium 99 sestamibi was injected intravenously. As per protocol stress gated images were obtained. NUCLEAR INTERPRETATION: Both raw and processed data were used for interpretation. Visual, qualitative, computer-generated quantitative data was used. There was good myocardial uptake of technetium compound. Motion artifact and soft tissue attenuations were noted. Increased visceral uptake was noted. Mild decreased uptake noted in the mid anterior wall and stress imaging, this is felt to be mostly related to differences in breast attenuation as no corresponding regional wall motion abnormalities were noted on gated imaging. However clinical correlation is requested. No definitive areas of fixed perfusion defect or scars noted. EKG gated imaging showed LV EF at 65 %, rest and stress gated EF similar visually. T. I D. ratio was 1.38. Lung heart ratio noted to be within normal limits 0.34. No significant extracardiac and abnormal radiotracer activities were noted. RV free wall uptake was noted to be WNL. IMPRESSION: Also refer to comments under nuclear interpretation. Also test results needs to be interpreted in the context of pretest probability. 1. There is no definitive scintigraphic evidence of LexiScan induced myocardial ischemia. Mild decreased uptake noted in the mid anterior wall and stress imaging, this is felt to be mostly related to differences in breast attenuation as no corresponding regional wall motion abnormalities were noted on gated imaging. However clinical correlation is requested 2. There is no definitive scintigraphic evidence of myocardial infarction/scar. 3. EKG gated imaging shows left ventricular ejection fraction of approximately 65 %. Transient ischemic dilatation noted. However patient LV cavity was noted to be a small therefore, could be false-positive. Recent literature review also suggests that presents of transient ischemic dilatation may not indicate necessarily a high event rate. 4. Clinical correlation requested as occasionally single vessel disease or balanced ischemia could be missed. In approximately 10% of the cases Lexiscan may not cause adequate vasodilatory stress. RECOMMENDATIONS: Aggressive risk factor modification, medical therapy. May consider heart catheterization if there is recurrence of chest pain. Clinical correlation with echocardiogram derived ejection fraction. Inability to exercise by itself can lead to increased cardiovascular event risks. Consider cardiology consultation and or follow-up if clinically indicated. I AM AVAILABLE FOR CARDIOLOGY CONSULTATION AND FOLLOWUP IF REQUESTED BY LAUREN Thompson M.D. Pool Finisher audio/visual manager, Board certified in cardiovascular diseases, Nuclear cardiology, Echocardiography Cardiac CT and cardiac MRI Ph. [phone] SANTY
--- NOTE | 2017-08-26 13:19 | PDOC PROGRESS REPORT ---
Subjective Progress Note for:: 08/26/17 Subjective:: Patient seems to be doing better with gradual improvement. Pt is denying any chest arm or neck discomfort. Patient denying any PND, orthopnea. Patient denied any sustained palpitations, dizziness, syncope, near syncope. Patient denying any fever chills. Patient denying any other significant discomfort. Patient is maintaining sinus rhythm. Review of systems: Rest review of systems negative. Medications: Medications have been reviewed. Reason For Visit: ACS Physical Exam Vital Signs: Temp Pulse Resp BP Pulse Ox 98.1 F 95 17 149/73 H 98 08/26/17 08:28 08/26/17 08:28 08/26/17 08:28 08/26/17 08:28 08/26/17 08:30 Intake & Output 08/25/17 08/26/17 08/27/17 06:59 06:59 06:59 Intake Total 2295 Balance 2295 Weight 97.2 kg Exam: GENERAL: well-nourished and in no acute distress. Alert and oriented x3 HEAD: Atraumatic, normocephalic. EYES: Pupils equal round and reactive to light, extraocular movements intact, sclera anicteric, conjunctiva are normal. ENT: TMs normal, nares patent, oropharynx clear without exudates. Moist mucous membranes. No oral ulcerations or bleeding gums noted NECK: supple without lymphadenopathy. Trachea is central. No cervical or axillary lymphadenopathy noted. Carotids are 2+, JVD WNL LUNGS: Respiration seems nonlabored, no significant accessory muscle action noted. Breath sounds clear to auscultation bilaterally and equal noted. No wheezes rales or rhonchi noted. No significant dullness noted on percussion. CHEST: Palpation of the chest wall shows no significant chest wall tenderness. No other significant abnormalities noted. 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 ABDOMEN: Soft, no significant tenderness appreciated, normoactive bowel sounds. No guarding, no rebound. No rigidity noted . No masses appreciated. EXTREMITIES: Pedal pulses are 1-2+, no calf tenderness noted. No clubbing or cyanosis.trace to 1+ pedal edema noted NEUROLOGICAL: Focused neurological exam showed no significant neurologic deficit. Normal speech, no focal weakness appreciated. PSYCH: Normal mood, normal affect. Judgment and insight within normal limits. SKIN: No significant ecchymosis, rash, ulcerations or signs of pruritus noted. MUSCULOSKELETAL EXAM: No significant joint swelling noted. Results Laboratory Results: 08/25/17 08/25/17 08/25/17 10:30 14:25 18:25 Troponin I 0.108 0.085 0.079 08/26/17 00:27 Troponin I 0.065 Impressions: Chest X-Ray 08/24/17 13:13 IMPRESSION: Suspect minimal volume loss in the left base. Otherwise, no acute cardiopulmonary disease. Chest/Abdomen CTA 08/24/17 14:47 IMPRESSION: 1. No pulmonary embolus. 2. No aortic aneurysm or dissection. 3. Allowing for motion artifact and subsegmental atelectasis, no acute pulmonary infiltrate detected. Assessment & Plan - Diagnosis (1) Non-STEMI (non-ST elevated myocardial infarction) Is this a current diagnosis for this admission?: Yes (2) Chest pain Qualifiers: Chest pain type: unspecified Qualified Code(s): R07.9 - Chest pain, unspecified Is this a current diagnosis for this admission?: Yes (3) CAD (coronary artery disease) Qualifiers: Coronary Disease-Associated Artery/Lesion type: [place] artery [place] vs. 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 Risk benefits were discussed. Patient subsequently underwent a nuclear stress test without any complications. The study was somewhat difficult to interpret but did not feel there was any significant pharmacologic stress-induced ischemia however, an area of mild decreased uptake noted in the mid anterior wall felt to be related to differences in breast attenuation. At this point will recommend that patient ambulates and we optimize medical management. Should patient has recurrent chest pain, would recommend transfer to tertiary care for heart catheterization. Patient's medical regimen reviewed. Have added Imdur and Ranexa to the regimen. Patient should continue with long-term Plavix. May consider stopping heparin. - Time Time with patient: Greater than 35 minutes - CODE STATUS : was discussed, patient remains DO NOT RESUSCITATE. Surrogate decision-maker unchanged. Multiple medical problems were addressed. More than 50% of the time spent coordinating care, discussing management plans with involved caregivers. Management plans discussed with involved personnels. Medical decision making was of moderate to high complexity, patient's has multiple comorbidities. Medications reviewed and adjusted accordingly: Yes
[2017-08-26 14:33] LABS: APPEARANCE,URINE CLEAR; BILIRUBIN,URINE NEGATIVE (NEGATIVE); COLOR,URINE YELLOW; GLUCOSE, URINE NEGATIVE (NEGATIVE); KETONES,URINE NEGATIVE (NEGATIVE); LEUKOCYTE ESTERASE,URINE NEGATIVE (NEGATIVE); NITRITE,URINE NEGATIVE (NEGATIVE); PROTEIN,URINE NEGATIVE (NEGATIVE); URINE SPECIFIC GRAVITY 1.011
[2017-08-26] MEDS ORDERED: RANOLAZINE 500 MG TAB.SR.12H PO ONE (15:00)
[2017-08-26] MEDS ORDERED: AMINOPHYLLINE INJ/PF 250 MG/10 ML SDV IV ONE (15:01)
[2017-08-26] MEDS ORDERED: REGADENOSON INJ 0.4 MG/5 ML DISP.SYRIN IV ONE (15:01)
--- NOTE | 2017-08-26 18:18 | XCELERA REPORT ---
[address] [address] Transthoracic Echocardiogram Report Name: ORACIO PEDROZA Age: 82 yrs Gender: Female : 1935 Patient Status: Inpatient Patient Location: [address] [place] [address] Study Date: 08/26/2017 02:35 PM Height: 63 in Weight: 214 lb BSA: 2.0 m2 Procedure: A complete two-dimensional transthoracic echocardiogram was performed (2D, M-mode, spectral and color flow Doppler). The study was technically difficult with many images being suboptimal in quality. Reason For Study: NSTEMI Ordering Physician: BUD JOHNSON Performed By: Sia Eagle Interpretation Summary The left ventricular ejection fraction is normal. Doppler measurements suggest pseudonormalized left ventricular relaxation, which is associated with grade II/IV or mild to moderate diastolic dysfunction There is mild concentric left ventricular hypertrophy. The left ventricle is grossly normal size. Wall motion cannot be accurately commented on, but no definite regional wall motion abnormalities noted. The right ventricular systolic function is normal. The right ventricle is mildly dilated. The right atrium is normal in size The left atrium is mildly dilated. There is a trace amount of mitral regurgitation There is no mitral valve stenosis. There is no aortic valve stenosis No aortic regurgitation is present. There is no tricuspid stenosis. No tricuspid regurgitation. The aortic root is not well visualized but is probably normal size. The inferior vena cava appeared normal and decreased > 50% with respiration (RAP 5-10 mmHg) There is no pericardial effusion. MMode/2D Measurements & Calculations RVDd: 3.2 cm LVIDd: 4.2 cm FS: 32.1 % Ao root diam: 3.4 cm IVSd: 1.1 cm LVIDs: 2.8 cm EDV(Teich): 76.9 ml LVPWd: 1.1 cm ESV(Teich): 30.2 ml Ao root area: 9.1 cm2 EF(Teich): 60.7 % LA dimension: 3.8 cm LVOT diam: 2.3 cm LVOT area: 4.0 cm2 Doppler Measurements & Calculations MV E max keily: MV P1/2t max keily: Ao V2 max: LV V1 max P.3 cm/sec 89.9 cm/sec 139.8 cm/sec 7.3 mmHg MV A max keily: MV P1/2t: 63.8 msec Ao max PG: LV V1 max: 138.7 cm/sec MVA(P1/2t): 3.4 cm2 7.8 mmHg 135.2 cm/sec MV E/A: 0.64 MV dec slope: CHASITY(V,D): 3.9 cm2 412.8 cm/sec2 PA V2 max: 81.9 cm/sec PA max P.7 mmHg Left Ventricle The left ventricle is grossly normal size. There is mild concentric left ventricular hypertrophy. The left ventricular ejection fraction is normal. Doppler measurements suggest pseudonormalized left ventricular relaxation, which is associated with grade II/IV or mild to moderate diastolic dysfunction. Wall motion cannot be accurately commented on, but no definite regional wall motion abnormalities noted. Right Ventricle The right ventricle is mildly dilated. There is normal right ventricular wall thickness. The right ventricular systolic function is normal. Atria The right atrium is normal in size. The left atrium is mildly dilated. Interarterial septum not well visualized and not well dopplered. Cannot comment on ASD/PFO presence. Mitral Valve The mitral valve is grossly normal. There is no mitral valve stenosis. There is a trace amount of mitral regurgitation. Aortic Valve The aortic valve is not well visualized secondary to technical limitations. There is no aortic valve stenosis. No aortic regurgitation is present. Tricuspid Valve The tricuspid valve is not well visualized secondary to technical limitations. There is no tricuspid stenosis. No tricuspid regurgitation. Pulmonic Valve The pulmonic valve is not well visualized. Great Vessels The aortic root is not well visualized but is probably normal size. The inferior vena cava appeared normal and decreased > 50% with respiration (RAP 5-10 mmHg). Effusions There is no pericardial effusion. : BUD JOHNSON > Bud Johnson
[2017-08-26] MEDS: ATORVASTATIN CALCIUM 80 MG TABLET PO SCH (22:12)
[2017-08-26] MEDS: RANOLAZINE 500 MG TAB.SR.12H PO SCH (22:12)
[2017-08-26] MEDS: INSULIN LISPRO 100 UNIT/ML 3 ML VIAL SUBCUT PRN (22:20)
[2017-08-27] MEDS: HEPARIN SODIUM,PORCINE/D5W 25,000 UNIT/250 ML RTUINJ IV PRN (01:12)
[2017-08-27] MEDS: LANSOPRAZOLE 30 MG TAB.RAP.DR PO SCH (06:39)
[2017-08-27] MEDS: GLIMEPIRIDE 1 MG TABLET PO SCH ×2 (08:39→16:52)
[2017-08-27] MEDS: AMLODIPINE BESYLATE 10 MG TABLET PO SCH (08:40)
[2017-08-27 08:53] LABS: ANION GAP 9 (5-19); BLOOD UREA NITROGEN 22 mg/dL (7-20); CALCIUM 10.3 mg/dL (8.4-10.2); CARBON DIOXIDE 27 mmol/L (22-30); CHLORIDE 106 mmol/L (98-107); GLUCOSE 41 mg/dL (75-110); POTASSIUM 4.6 mmol/L (3.6-5.0); SODIUM 141.7 mmol/L (137-145)
[2017-08-27 10:10] LABS: PLATELET COUNT 290 10^3/uL (150-450); WHITE BLOOD COUNT 35.3 10^3/uL (4.0-10.5)
--- NOTE | 2017-08-27 10:13 | RADIOLOGY REPORT (SQ) ---
EXAM DESCRIPTION: CT HEAD WITHOUT COMPLETED DATE/TIME: 08/27/2017 10:00 am REASON FOR STUDY: r/o bleed c/o severe headache on heparin gtt R07.89 OTHER CHEST PAIN COMPARISON: 05/12/2017 TECHNIQUE: Axial images acquired through the brain without intravenous contrast. Images reviewed wi th bone, brain and subdural windows. Images stored on PACS. All CT scanners at this facility use dose modulation, iterative reconstruction, and/or weight based d osing when appropriate to reduce radiation dose to as low as reasonably achievable (ALARA). [facility]: Dose Right [facility]: CareDose [facility]: Dose Right [facility]: Teradose 4D [facility]: Smart [employer] RADIATION DOSE: CT Rad equipment meets quality standard of care and radiation dose reduction techniq ues were employed. CTDIvol: 64.6 mGy. DLP: 1163 mGy-cm. mGy. LIMITATIONS: None. FINDINGS: VENTRICLES: Normal size and contour. CEREBRUM: No masses. No hemorrhage. No midline shift. No evidence for acute infarction. Multiple o ld infarcts which are stable. CEREBELLUM: No masses. No hemorrhage. No alteration of density. No evidence for acute infarction. EXTRAAXIAL SPACES: No fluid collections. No masses. ORBITS AND GLOBE: No intra- or extraconal masses. Normal contour of globe without masses. CALVARIUM: No fracture. PARANASAL SINUSES: No fluid or mucosal thickening. SOFT TISSUES: No mass or hematoma. OTHER: No other significant finding. IMPRESSION: No acute intracranial process. Multiple old infarcts. EVIDENCE OF ACUTE STROKE: NO. COMMENT: Quality ID # [id number]: Final reports with documentation of one or more dose reduction techniques (e.g., Automated exposure control, adjustment of the mA and/or kV according to patient size, use of iterative reconstruction technique) TECHNICAL DOCUMENTATION: JOB ID: [id number] [employer]- All Rights Reserved
--- NOTE | 2017-08-27 10:29 | RADIOLOGY REPORT (SQ) ---
EXAM DESCRIPTION: CTA CHEST COMPLETED DATE/TIME: 08/27/2017 10:00 am REASON FOR STUDY: CP r/o PE R07.89 OTHER CHEST PAIN COMPARISON: 08/24/2017 TECHNIQUE: CT scan of the chest performed using helical scanning technique with dynamic intravenous contrast injection. Images reviewed with lung, soft tissue and bone windows. Reconstructed coronal and sagittal MPR images reviewed. Additional 3 dimensional post-processing performed to develop Maximal Intensity Projection images (AK P). All images stored on PACS. All CT scanners at this facility use dose modulation, iterative reconstruction, and/or weight based d osing when appropriate to reduce radiation dose to as low as reasonably achievable (ALARA). [facility]: Dose Right [facility]: CareDose [facility]: Dose Right [facility]: Teradose 4D [facility]: [employer] CONTRAST TYPE AND DOSE: contrast/concentration: Isovue 370.00 mg/ml; Total Contrast Delivered: 79.0 ml; Total Saline Delivered: 80.1 ml Contrast bolus adequate for pulmonary arteries and aorta. RENAL FUNCTION: GFR > 60. RADIATION DOSE: CT Rad equipment meets quality standard of care and radiation dose reduction techniq ues were employed. CTDIvol: 42.3 - 65.6 mGy. DLP: 1625 mGy-cm. . LIMITATIONS: None. FINDINGS: LUNGS AND PLEURA: No masses, infiltrates, pneumothorax. No pleural effusions, calcificati ons. AORTA AND GREAT VESSELS: No aneurysm. Contrast bolus not optimized for the aorta. HEART: No pericardial effusion. No significant coronary artery calcifications. PULMONARY ARTERIES: No emboli visualized in the main pulmonary arteries or the segmental branches. HILAR AND MEDIASTINAL STRUCTURES: No identified masses or abnormal nodes. HARDWARE: None in the chest. UPPER ABDOMEN: No significant findings. Limited exam. THYROID AND OTHER SOFT TISSUES: No masses. No adenopathy. BONES: No acute or significant finding. 3D MIPS: Confirm above findings. OTHER: No other significant finding. IMPRESSION: NORMAL CTA OF THE CHEST. NO PULMONARY EMBOLI. COMMENT: Quality ID # [id number]: Final reports with documentation of one or more dose reduction techniques (e.g., Automated exposure control, adjustment of the mA and/or kV according to patient size, use of iterative reconstruction technique) TECHNICAL DOCUMENTATION: JOB ID: [id number] [employer]- All Rights Reserved
[2017-08-27] MEDS: DOCUSATE SODIUM 100 MG CAPSULE PO SCH ×2 (11:21→17:18)
[2017-08-27] MEDS: SITAGLIPTIN PHOSPHATE 50 MG TABLET PO SCH (11:22)
[2017-08-27] MEDS: ISOSORBIDE MONONITRATE 30 MG TAB.ER.24H PO SCH (11:22)
[2017-08-27] MEDS: ASPIRIN 81 MG TABLET, ENT COATED PO SCH (11:22)
[2017-08-27] MEDS: GABAPENTIN 300 MG CAPSULE PO SCH ×2 (11:22→21:37)
[2017-08-27] MEDS: CLOPIDOGREL BISULFATE 75 MG TABLET PO SCH (11:23)
[2017-08-27] MEDS: SERTRALINE HCL 50 MG TABLET PO SCH (11:23)
[2017-08-27] MEDS: BUSPIRONE HCL 10 MG TABLET PO SCH ×2 (11:23→21:37)
[2017-08-27] MEDS: RANOLAZINE 500 MG TAB.SR.12H PO SCH ×2 (11:24→21:37)
[2017-08-27] MEDS: NYSTATIN TOPICAL POWDER 15 GM TP SCH ×2 (11:25→17:18)
[2017-08-27] MEDS: METOPROLOL TARTRATE 100 MG TABLET PO SCH ×3 (11:25→21:37)
[2017-08-27] MEDS: LOSARTAN POTASSIUM 50 MG TABLET PO SCH ×2 (11:25→11:51)
--- NOTE | 2017-08-27 12:33 | PDOC PROGRESS REPORT ---
Subjective Progress Note for:: 08/27/17 Subjective:: Patient seems to be doing better with gradual improvement. Pt is denying any chest arm or neck discomfort. Patient claims of chronic headaches but they were more intense while being in the hospital. Patient denying any PND, orthopnea. Patient denied any sustained palpitations, dizziness, syncope, near syncope. Patient denying any fever chills. Patient denying any other significant discomfort. CTA chest negative for pulmonary embolism. CT of the head negative for any intracranial bleed. Patient is maintaining sinus rhythm. Review of systems: Rest review of systems negative. Medications: Medications have been reviewed. Reason For Visit: ACS Physical Exam Vital Signs: Temp Pulse Resp BP Pulse Ox 97.5 F 68 16 109/60 97 08/27/17 07:46 08/27/17 07:46 08/27/17 07:46 08/27/17 07:46 08/27/17 09:14 Intake & Output 08/26/17 08/27/17 08/28/17 06:59 06:59 06:59 Intake Total 2295 1164 Output Total 700 Balance 2295 464 Weight 97.2 kg 98.1 kg Exam: GENERAL: well-nourished and in no acute distress. Alert and oriented x3 HEAD: Atraumatic, normocephalic. EYES: Pupils equal round and reactive to light, extraocular movements intact, sclera anicteric, conjunctiva are normal. ENT: TMs normal, nares patent, oropharynx clear without exudates. Moist mucous membranes. No oral ulcerations or bleeding gums noted NECK: supple without lymphadenopathy. Trachea is central. No cervical or axillary lymphadenopathy noted. Carotids are 2+, JVD WNL LUNGS: Respiration seems nonlabored, no significant accessory muscle action noted. Breath sounds clear to auscultation bilaterally and equal noted. No wheezes rales or rhonchi noted. No significant dullness noted on percussion. CHEST: Palpation of the chest wall shows no significant chest wall tenderness. No other significant abnormalities noted. 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 ABDOMEN: Soft, no significant tenderness appreciated, normoactive bowel sounds. No guarding, no rebound. No rigidity noted . No masses appreciated. EXTREMITIES: Pedal pulses are 1-2+, no calf tenderness noted. No clubbing or cyanosis.trace to 1+ pedal edema noted NEUROLOGICAL: Focused neurological exam showed no significant neurologic deficit. Normal speech, no focal weakness appreciated. PSYCH: Normal mood, normal affect. Judgment and insight within normal limits. SKIN: No significant ecchymosis, rash, ulcerations or signs of pruritus noted. MUSCULOSKELETAL EXAM: No significant joint swelling noted. Results Laboratory Results: 08/27/17 06:20 08/27/17 06:20 08/26/17 08/27/17 08/27/17 14:00 06:20 06:20 WBC 35.3 H* RBC Hgb Hct MCV MCH MCHC RDW Plt Count 290 Sodium 141.7 Potassium 4.6 Chloride 106 Carbon Dioxide 27 Anion Gap 9 BUN 22 H Creatinine 1.06 Est GFR ( Amer) > 60 Est GFR (Non-Af Amer) 50 L Glucose 41 L Calcium 10.3 H Urine Color YELLOW Urine Appearance CLEAR Urine pH 5.0 Ur Specific [place] 1.011 Urine Protein NEGATIVE Urine Glucose (UA) NEGATIVE Urine Ketones NEGATIVE Urine Blood NEGATIVE Urine Nitrite NEGATIVE Ur Leukocyte Esterase NEGATIVE Urine WBC (Auto) 2 Urine RBC (Auto) 0 08/25/17 08/25/17 08/25/17 10:30 14:25 18:25 Troponin I 0.108 0.085 0.079 08/26/17 00:27 Troponin I 0.065 Impressions: Chest X-Ray 08/24/17 13:13 IMPRESSION: Suspect minimal volume loss in the left base. Otherwise, no acute cardiopulmonary disease. Head CT 08/27/17 00:00 IMPRESSION: No acute intracranial process. Multiple old infarcts. EVIDENCE OF ACUTE STROKE: NO. Chest/Abdomen CTA 08/27/17 08:20 IMPRESSION: NORMAL CTA OF THE CHEST. NO PULMONARY EMBOLI. Assessment & Plan - Diagnosis (1) Non-STEMI (non-ST elevated myocardial infarction) Is this a current diagnosis for this admission?: Yes (2) Chest pain Qualifiers: Chest pain type: unspecified Qualified Code(s): R07.9 - Chest pain, unspecified Is this a current diagnosis for this admission?: Yes (3) CAD (coronary artery disease) Qualifiers: Coronary Disease-Associated Artery/Lesion type: [place] artery [place] vs. 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 Patient being recommended medical management. Chest pain has resolved without any recurrence. Coronary artery disease symptoms are stable. At this point will stop heparin. Patient encouraged to ambulate. If she does fine, she could be discharged from cardiac standpoint however patient does not feel confident as of going home today. Patient should continue on aspirin Plavix, beta blockers, KIKE inhibitor/ARB. Beta-lashell dose need to be optimized. Patient does not have a regular radiologist chief of breast imaging. Have encouraged patient to follow -up with me if she wishes. - Time Time with patient: Greater than 35 minutes - Significant time spent going after the CT scan results, his stress test results, echocardiogram results etc. Medications reviewed and adjusted accordingly: Yes
[2017-08-27] MEDS: HUM INSULIN NPH/REG INSULIN HM 100 UNIT/1 ML 3 ML SUBCUT SCH ×2 (13:02→21:49)
--- NOTE | 2017-08-27 15:30 | PDOC PROGRESS REPORT ---
Subjective Subjective:: In bed no new c/o. Denies chest pain but has a dull chest pressure on the left side. Currently on heparin drip for acute coronary syndrome Reason For Visit: ACS Physical Exam Vital Signs: Temp Pulse Resp BP Pulse Ox 98.2 F 70 18 104/53 L 97 08/27/17 03:58 08/27/17 06:50 08/27/17 03:58 08/27/17 03:58 08/27/17 09:14 Intake & Output 08/26/17 08/27/17 08/28/17 06:59 06:59 06:59 Intake Total 2295 1164 Output Total 700 Balance 2295 464 Weight 97.2 kg 98.1 kg Results Laboratory Results: 08/27/17 06:20 08/26/17 08/27/17 14:00 06:20 Sodium 141.7 Potassium 4.6 Chloride 106 Carbon Dioxide 27 Anion Gap 9 BUN 22 H Creatinine 1.06 Est GFR ( Amer) > 60 Est GFR (Non-Af Amer) 50 L Glucose 41 L Calcium 10.3 H Urine Color YELLOW Urine Appearance CLEAR Urine pH 5.0 Ur Specific [place] 1.011 Urine Protein NEGATIVE Urine Glucose (UA) NEGATIVE Urine Ketones NEGATIVE Urine Blood NEGATIVE Urine Nitrite NEGATIVE Ur Leukocyte Esterase NEGATIVE Urine WBC (Auto) 2 Urine RBC (Auto) 0 08/25/17 08/25/17 08/25/17 10:30 14:25 18:25 Troponin I 0.108 0.085 0.079 08/26/17 00:27 Troponin I 0.065 Impressions: Chest X-Ray 08/24/17 13:13 IMPRESSION: Suspect minimal volume loss in the left base. Otherwise, no acute cardiopulmonary disease. Chest/Abdomen CTA 08/24/17 14:47 IMPRESSION: 1. No pulmonary embolus. 2. No aortic aneurysm or dissection. 3. Allowing for motion artifact and subsegmental atelectasis, no acute pulmonary infiltrate detected. Assessment & Plan - Diagnosis (1) Headache Qualifiers: Headache type: unspecified Headache chronicity pattern: acute headache Intractability: intractable Qualified Code(s): R51 - Headache Is this a current diagnosis for this admission?: Yes Plan: Patient currently states she is a severe to right side of her face I radiating back to the back of her neck. Usually does not have a lot of headaches but seems to have gotten worse during this hospitalization. Has history of CVA and head injury. Currently on a heparin drip for ACS. Concerning for this hemorrhage will get a CT of her head while she is going down to get a CTA per Dr. Medina. Head CT showed no mass or hemorrhage (2) Non-STEMI (non-ST elevated myocardial infarction) Plan: Patient denies any syncope or dizziness. Currently in sinus rhythm. (3) Chest pain Qualifiers: Chest pain type: unspecified Qualified Code(s): R07.9 - Chest pain, unspecified Is this a current diagnosis for this admission?: No Plan: Patient states no current chest pain a little bit of chest pressure dull achy nonradiating. Currently on heparin drip. Patient going down for a CTA to rule out PE per Dr. Medina and caul fat puller. He recommended medical management. Also stating should patient have recurrent chest pain, would recommend transferring to tertiary care for heart catheterization. Due to an area of mild decreased uptake noted in the mid anterior wall felt to be due to differences in breast attenuation. Patient will go down for a CTA and chest CT to rule out PE. Negative scans. Patient heparin drip was DC (4) Chronic diastolic CHF (congestive heart failure) Is this a current diagnosis for this admission?: Yes Plan: Continue diuresing with diuretics. (5) Diastolic CHF Qualifiers: Congestive heart failure chronicity: chronic Qualified Code(s): I50.32 - Chronic diastolic (congestive) heart failure (6) Hyperlipidemia Qualifiers: Hyperlipidemia type: unspecified Qualified Code(s): E78.5 - Hyperlipidemia , unspecified (7) CAD (coronary artery disease) Qualifiers: Coronary Disease-Associated Artery/Lesion type: [place] artery [place] vs. 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
[2017-08-27] MEDS: INSULIN LISPRO 100 UNIT/ML 3 ML VIAL SUBCUT PRN (16:55)
[2017-08-27] MEDS: ATORVASTATIN CALCIUM 80 MG TABLET PO SCH (21:37)
[2017-08-28] MEDS: LANSOPRAZOLE 30 MG TAB.RAP.DR PO SCH (06:01)
[2017-08-28] MEDS: GLIMEPIRIDE 1 MG TABLET PO SCH ×2 (08:32→17:31)
[2017-08-28] MEDS: LOSARTAN POTASSIUM 50 MG TABLET PO SCH (09:46)
[2017-08-28] MEDS: SITAGLIPTIN PHOSPHATE 50 MG TABLET PO SCH (09:48)
[2017-08-28] MEDS: SERTRALINE HCL 50 MG TABLET PO SCH (09:48)
[2017-08-28] MEDS: GABAPENTIN 300 MG CAPSULE PO SCH ×2 (09:48→22:21)
[2017-08-28] MEDS: METOPROLOL TARTRATE 100 MG TABLET PO SCH ×2 (09:48→22:21)
[2017-08-28] MEDS: ASPIRIN 81 MG TABLET, ENT COATED PO SCH (09:49)
[2017-08-28] MEDS: AMLODIPINE BESYLATE 5 MG TABLET PO SCH (09:49)
[2017-08-28] MEDS: CLOPIDOGREL BISULFATE 75 MG TABLET PO SCH (09:49)
[2017-08-28] MEDS: BUSPIRONE HCL 10 MG TABLET PO SCH ×2 (09:51→22:21)
[2017-08-28] MEDS: RANOLAZINE 500 MG TAB.SR.12H PO SCH ×2 (09:52→22:21)
[2017-08-28] MEDS: DOCUSATE SODIUM 100 MG CAPSULE PO SCH ×2 (09:53→17:32)
[2017-08-28] MEDS: ISOSORBIDE MONONITRATE 30 MG TAB.ER.24H PO SCH (09:53)
[2017-08-28] MEDS: HUM INSULIN NPH/REG INSULIN HM 100 UNIT/1 ML 3 ML SUBCUT SCH ×2 (09:53→22:20)
[2017-08-28] MEDS: NYSTATIN TOPICAL POWDER 15 GM TP SCH ×2 (12:00→17:32)
--- NOTE | 2017-08-28 13:45 | PDOC PROGRESS REPORT ---
Subjective Progress Note for:: 08/28/17 Subjective:: Patient seems to be doing better with gradual improvement. Pt is denying any chest arm or neck discomfort. Patient claims headaches especially waking up with headaches. Patient denying any PND, orthopnea. Patient denied any sustained palpitations, dizziness, syncope, near syncope. Patient denying any fever chills. Patient denying any other significant discomfort. CT of the head negative for any intracranial bleed. Patient does give history of chronic headaches but has been more intense while in the hospital. Have discussed with the nurse and will hold Imdur or even discontinue it. Patient is maintaining sinus rhythm. Review of systems: Rest review of systems negative. Medications: Medications have been reviewed. Reason For Visit: ACS Physical Exam Vital Signs: Temp Pulse Resp BP Pulse Ox 98.3 F 73 17 127/53 H 94 08/28/17 11:10 08/28/17 11:10 08/28/17 11:10 08/28/17 11:10 08/28/17 11:10 Intake & Output 08/27/17 08/28/17 08/29/17 06:59 06:59 06:59 Intake Total 1164 1053 Output Total 700 300 Balance 464 753 Weight 98.1 kg Exam: GENERAL: well-nourished and in no acute distress. Alert and oriented x3 HEAD: Atraumatic, normocephalic. EYES: Pupils equal round and reactive to light, extraocular movements intact, sclera anicteric, conjunctiva are normal. ENT: TMs normal, nares patent, oropharynx clear without exudates. Moist mucous membranes. No oral ulcerations or bleeding gums noted NECK: supple without lymphadenopathy. Trachea is central. No cervical or axillary lymphadenopathy noted. Carotids are 2+, JVD WNL LUNGS: Respiration seems nonlabored, no significant accessory muscle action noted. Breath sounds clear to auscultation bilaterally and equal noted. No wheezes rales or rhonchi noted. No significant dullness noted on percussion. CHEST: Palpation of the chest wall shows no significant chest wall tenderness. No other significant abnormalities noted. 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 ABDOMEN: Soft, no significant tenderness appreciated, normoactive bowel sounds. No guarding, no rebound. No rigidity noted . No masses appreciated. EXTREMITIES: Pedal pulses are 1-2+, no calf tenderness noted. No clubbing or cyanosis.trace to 1+ pedal edema noted NEUROLOGICAL: Focused neurological exam showed no significant neurologic deficit. Normal speech, no focal weakness appreciated. PSYCH: Normal mood, normal affect. Judgment and insight within normal limits. SKIN: No significant ecchymosis, rash, ulcerations or signs of pruritus noted. MUSCULOSKELETAL EXAM: No significant joint swelling noted. Results Laboratory Results: 08/27/17 06:20 08/27/17 06:20 08/25/17 08/25/17 08/25/17 10:30 14:25 18:25 Troponin I 0.108 0.085 0.079 08/26/17 00:27 Troponin I 0.065 EKG Comments: Shows sinus rhythm without any sustained tachycardia or bradycardia arrhythmias. Impressions: Chest X-Ray 08/24/17 13:13 IMPRESSION: Suspect minimal volume loss in the left base. Otherwise, no acute cardiopulmonary disease. Head CT 08/27/17 00:00 IMPRESSION: No acute intracranial process. Multiple old infarcts. EVIDENCE OF ACUTE STROKE: NO. Chest/Abdomen CTA 08/27/17 08:20 IMPRESSION: NORMAL CTA OF THE CHEST. NO PULMONARY EMBOLI. Assessment & Plan - Diagnosis (1) Non-STEMI (non-ST elevated myocardial infarction) Is this a current diagnosis for this admission?: Yes (2) Chest pain Qualifiers: Chest pain type: unspecified Qualified Code(s): R07.9 - Chest pain, unspecified Is this a current diagnosis for this admission?: Yes (3) CAD (coronary artery disease) Qualifiers: Coronary Disease-Associated Artery/Lesion type: [place] artery [place] vs. 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: unspecified petroleum terminal plant operator insulin use status Qualified Code(s): E11.8 - Type 2 diabetes mellitus with unspecified complications Is this a current diagnosis for this admission?: Yes (6) Headache Qualifiers: Headache type: tension-type Headache chronicity pattern: episodic headache Intractability: intractable Qualified Code(s): G44.211 - Episodic tension- type headache, intractable Is this a current diagnosis for this admission?: Yes (7) HTN (hypertension) Qualifiers: Hypertension type: essential hypertension Qualified Code(s): I10 - Essential (primary) hypertension Is this a current diagnosis for this admission?: Yes - Notes Notes: Patient has progressed well from above diagnosis. Her stress test was felt to be reasonably low risk. Patient has been chest pain-free but her main problems are headaches. 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 Will stop Imdur. Have told patient that she is stable enough to be discharged but to need close cardiology follow-up which I will be able to provide her if she wishes to follow-up with me. Patient discharge medications should include aspirin, Plavix, beta blockers, KIKE inhibitor/ARB. Patient should also be on high potency statin therapy. Plavix should be continued for at least a month if not long-term. Continue current dose of Ranexa as outpatient. This can be further adjusted as needed. As regards hypertension, her medications were adjusted yesterday. - Time Time with patient: Greater than 35 minutes - CODE STATUS : was discussed, patient remains DO NOT RESUSCITATE. Surrogate decision-maker unchanged. Multiple medical problems were addressed. More than 50% of the time spent coordinating care, discussing management plans with involved caregivers. Management plans discussed with involved personnels. Medical decision making was of moderate to high complexity, patient's has multiple comorbidities. Medications reviewed and adjusted accordingly: Yes
--- NOTE | 2017-08-28 16:01 | PDOC PROGRESS REPORT ---
Subjective Reason For Visit: ACS Physical Exam Vital Signs: Temp Pulse Resp BP Pulse Ox 98.3 F 74 17 127/53 H 94 08/28/17 11:10 08/28/17 14:00 08/28/17 11:10 08/28/17 11:10 08/28/17 11:10 Intake & Output 08/27/17 08/28/17 08/29/17 06:59 06:59 06:59 Intake Total 1164 1053 Output Total 700 300 Balance 464 753 Weight 98.1 kg Results Laboratory Results: 08/27/17 06:20 08/27/17 06:20 08/25/17 08/25/17 08/25/17 10:30 14:25 18:25 Troponin I 0.108 0.085 0.079 08/26/17 00:27 Troponin I 0.065 Impressions: Chest X-Ray 08/24/17 13:13 IMPRESSION: Suspect minimal volume loss in the left base. Otherwise, no acute cardiopulmonary disease. Head CT 08/27/17 00:00 IMPRESSION: No acute intracranial process. Multiple old infarcts. EVIDENCE OF ACUTE STROKE: NO. Chest/Abdomen CTA 08/27/17 08:20 IMPRESSION: NORMAL CTA OF THE CHEST. NO PULMONARY EMBOLI. Assessment & Plan - Diagnosis (1) Headache Qualifiers: Headache type: tension-type Headache chronicity pattern: episodic headache Intractability: intractable Qualified Code(s): G44.211 - Episodic tension- type headache, intractable Is this a current diagnosis for this admission?: Yes Plan: Patient currently states she is a severe to right side of her face I radiating back to the back of her neck. Usually does not have a lot of headaches but seems to have gotten worse during this hospitalization. Has history of CVA and head injury. Currently on a heparin drip for ACS. Concerning for this hemorrhage will get a CT of her head while she is going down to get a CTA per Dr. Medina. Head CT showed no mass or hemorrhage (2) Non-STEMI (non-ST elevated myocardial infarction) Is this a current diagnosis for this admission?: Yes Plan: Patient denies any syncope or dizziness. Currently in sinus rhythm. Continue to monitor (3) Chest pain Qualifiers: Chest pain type: unspecified Qualified Code(s): R07.9 - Chest pain, unspecified Is this a current diagnosis for this admission?: No Plan: Patient states no current chest pain a little bit of chest pressure dull achy nonradiating. Currently on heparin drip. 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 He recommended medical management. Also stating should patient have recurrent chest pain, would recommend transferring to tertiary care for heart catheterization. Due to an area of mild decreased uptake noted in the mid anterior wall felt to be due to differences in breast attenuation. Patient will go down for a CTA and chest CT to rule out PE. Negative scans. Patient heparin drip was DC. Patient's isosorbide was DC'd to see if it was helping her headache per cardiology. Plan to hold discharge home for now until her symptoms have improved (4) Chronic diastolic CHF (congestive heart failure) Is this a current diagnosis for this admission?: Yes (5) Diastolic CHF Qualifiers: Congestive heart failure chronicity: chronic Qualified Code(s): I50.32 - Chronic diastolic (congestive) heart failure (6) Hyperlipidemia Qualifiers: Hyperlipidemia type: unspecified Qualified Code(s): E78.5 - Hyperlipidemia , unspecified (7) CAD (coronary artery disease) Qualifiers: Coronary Disease-Associated Artery/Lesion type: [place] artery [place] vs. transplanted heart: [place] heart Associated angina: without angina Qualified Code(s): I25.10 - Atherosclerotic heart disease of [place] coronary artery without angina pectoris Is this a current diagnosis for this admission?: Yes (8) Anxiety disorder Qualifiers: Anxiety disorder type: generalized anxiety disorder Qualified Code(s): F41.1 - Generalized anxiety disorder Is this a current diagnosis for this admission?: Yes Plan: Stable no signs of exacerbation noted (9) Diabetes Qualifiers: Diabetes mellitus type: type 2 Diabetes mellitus complication status: with unspecified complications Diabetes mellitus terminal carman insulin use: unspecified terminal carman insulin use status Qualified Code(s): E11.8 - Type 2 diabetes mellitus with unspecified complications Is this a current diagnosis for this admission?: Yes Plan: Continue to monitor and check blood sugars before meals at bedtime (10) IMANI (acute kidney injury) Is this a current diagnosis for this admission?: Yes (11) History of CVA (cerebrovascular accident) Is this a current diagnosis for this admission?: Yes Plan: Patient has history of old CVA Acute CVA noted on CT scan no signs of intracranial bleed - Plan Summary Plan Summary: Hold discharge home for now. Patient states her headache is severe causing her to have some lightheadedness and dizziness. Some of her by and chest pain medications were adjusted today per cardiology
[2017-08-28] MEDS: INSULIN LISPRO 100 UNIT/ML 3 ML VIAL SUBCUT PRN (17:31)
[2017-08-28] MEDS: ATORVASTATIN CALCIUM 80 MG TABLET PO SCH (22:21)
[2017-08-29] MEDS: LANSOPRAZOLE 30 MG TAB.RAP.DR PO SCH (06:12)
[2017-08-29] MEDS: SITAGLIPTIN PHOSPHATE 50 MG TABLET PO SCH (09:35)
[2017-08-29] MEDS: DOCUSATE SODIUM 100 MG CAPSULE PO SCH (09:35)
[2017-08-29] MEDS: CLOPIDOGREL BISULFATE 75 MG TABLET PO SCH (09:36)
[2017-08-29] MEDS: RANOLAZINE 500 MG TAB.SR.12H PO SCH (09:36)
[2017-08-29] MEDS: GABAPENTIN 300 MG CAPSULE PO SCH (09:36)
[2017-08-29] MEDS: ASPIRIN 81 MG TABLET, ENT COATED PO SCH (09:37)
[2017-08-29] MEDS: GLIMEPIRIDE 1 MG TABLET PO SCH (09:37)
[2017-08-29] MEDS: BUSPIRONE HCL 10 MG TABLET PO SCH (09:37)
[2017-08-29] MEDS: LOSARTAN POTASSIUM 50 MG TABLET PO SCH (09:38)
[2017-08-29] MEDS: METOPROLOL TARTRATE 100 MG TABLET PO SCH (09:38)
[2017-08-29] MEDS: NYSTATIN TOPICAL POWDER 15 GM TP SCH (09:39)
[2017-08-29] MEDS: SERTRALINE HCL 50 MG TABLET PO SCH (09:39)
[2017-08-29] MEDS: AMLODIPINE BESYLATE 5 MG TABLET PO SCH (09:39)
[2017-08-29] MEDS ORDERED: BENZOCAINE/MENTHOL SORE THROAT LOZENGE BUCCAL PRN (09:59)
[2017-08-29] MEDS: HUM INSULIN NPH/REG INSULIN HM 100 UNIT/1 ML 3 ML SUBCUT SCH (10:59)
[2017-08-29 12:40] VITALS: BP 120/46
--- NOTE | 2017-08-29 15:27 | PDOC DISCHARGE SUMMARY ---
General - Admit/Disc Date/PCP Admission Date/Primary Care Provider: 08/25/17 09:52 Discharge Date: 08/29/17 - Discharge Diagnosis (1) Headache Is this a current diagnosis for this admission?: Yes (2) Non-STEMI (non-ST elevated myocardial infarction) Is this a current diagnosis for this admission?: Yes (3) Chest pain Is this a current diagnosis for this admission?: No (4) Chronic diastolic CHF (congestive heart failure) Is this a current diagnosis for this admission?: Yes (7) CAD (coronary artery disease) Is this a current diagnosis for this admission?: Yes (8) Anxiety disorder Is this a current diagnosis for this admission?: Yes (9) Diabetes Is this a current diagnosis for this admission?: Yes (10) IMANI (acute kidney injury) Is this a current diagnosis for this admission?: Yes (11) History of CVA (cerebrovascular accident) Is this a current diagnosis for this admission?: Yes - Additional Information Resuscitation Status: Do Not Resuscitate Discharge Diet: As Tolerated Discharge Activity: Activity As Tolerated Prescriptions: Benzocaine/Menthol [Chloraseptic Sore Throat Lozenge] 1 each BUCCAL Q4HP PRN # 14 lozenge PRN Reason: Ranolazine [Ranexa 500 mg Tab.sr] 500 mg PO Q12 #60 tab.sr.12h Home Medications: Buspirone HCl [Buspar 15 mg Tablet] 15 mg PO BID 08/24/17 Clopidogrel Bisulfate [Plavix 75 mg Tablet] 75 mg PO DAILY 08/24/17 Docusate Sodium [Colace 100 mg Capsule] 100 mg PO BID 08/24/17 Gabapentin [Neurontin 300 mg Capsule] 300 mg PO Q12 08/24/17 Glimepiride [Amaryl] 2 mg PO BID 08/24/17 Hum Insulin NPH/Reg Insulin Hm [Novolin 70-30 100 Unit/ml Vial] 65 units SQ BID 08/24/17 Isosorbide Dinitrate [Isordil Titradose 10 mg Tablet] 30 mg PO DAILY 08/24/17 Losartan Potassium [Cozaar 50 mg Tablet] 50 mg PO DAILY 08/24/17 Metoprolol Tartrate [Lopressor 100 mg Tablet] 100 mg PO Q12 08/24/17 Nystatin 1 applic TP Q12 08/24/17 Oxycodone HCl/Acetaminophen [Percocet 5-325 mg Tablet] 1 tab PO Q4HP PRN Pantoprazole Sodium [Protonix] 40 mg PO DAILY 08/24/17 Rosuvastatin Calcium [Crestor] 40 mg PO QAM 08/24/17 Sertraline HCl [Zoloft 50 mg Tablet] 50 mg PO DAILY 08/24/17 Sitagliptin Phosphate [Januvia] 100 mg PO DAILY 08/24/17 Tramadol HCl [Ultram 50 mg Tablet] 50 mg PO Q8HP PRN 08/24/17 Trazodone HCl [Desyrel 50 mg Tablet] 50 mg PO HSP PRN 08/24/17 Amlodipine Besylate [Norvasc 5 mg Tablet] 5 mg PO DAILY tablet 08/29/17 Aspirin [Ecotrin 81 mg EC Tablet] 81 mg PO DAILY tabec 08/29/17 Benzocaine/Menthol [Chloraseptic Sore Throat Lozenge] 1 each BUCCAL Q4HP PRN # 14 lozenge 08/29/17 Ranolazine [Ranexa 500 mg Tab.sr] 500 mg PO Q12 #60 tab.sr.12h 08/29/17 History of Present Illness History of Present Illness: ORACIO PEDROZA is a 82 year old female Hospital Course Hospital Course: 82-year-old white female chronic history of leukocytosis was admitted with tight chest tightness, chest pain, diaphoretic, shortness of breath, patient had a negative stress test CTA was unremarkable for emboli or aneurysm. History of diastolic dysfunction, diabetes type 2 hypertension, dyslipidemia, CVA, coronary artery disease, GERD patient is a DNR. She was put on telemetry. Had a stress test did not show any significant ischemia. Was followed by cardiology. Patient was medically managed. She is currently on Xarelto and aspirin and Ranexa. Patient maintained normal sinus rhythm. She did develop headache she was currently on a heparin drip for coronary artery syndrome. So she we CT her skin make sure she did not have a cerebral hemorrhage which was negative for any acute findings. She did have an old CVA. Cardiology did some adjustments to her angina medications that help with her headache. However today patient lives she complained of a sore throat. Patient seems quite stable to be discharged home with family. No outpatient therapy needed at this time follow-up with cardiology, primary care physician and 1-2 weeks Physical Exam Vital Signs: Temp Pulse Resp BP Pulse Ox 98.2 F 74 18 107/51 L 96 08/29/17 07:34 08/29/17 07:34 08/29/17 07:34 08/29/17 07:34 08/29/17 07:34 Intake & Output 08/28/17 08/29/17 08/30/17 06:59 06:59 06:59 Intake Total 1053 1464 Output Total 300 1950 Balance 753 -486 Weight 97.2 kg General appearance: PRESENT: morbidly obese, well-developed, well-nourished Head exam: PRESENT: atraumatic, normocephalic Eye exam: PRESENT: conjunctiva pink, EOMI, PERRLA. ABSENT: scleral icterus Ear exam: PRESENT: normal external ear exam Mouth exam: PRESENT: moist, tongue midline Throat exam: ABSENT: post pharyngeal erythema, tonsillar erythema, tonsillar exudate, tonsillogmegaly, other Neck exam: ABSENT: carotid bruit, JVD, lymphadenopathy, thyromegaly Respiratory exam: PRESENT: clear to auscultation carmen. ABSENT: rales, rhonchi, wheezes Cardiovascular exam: PRESENT: RRR. ABSENT: diastolic murmur, rubs, systolic murmur Pulses: PRESENT: normal dorsalis pedis pul Vascular exam: PRESENT: normal capillary refill GI/Abdominal exam: PRESENT: normal bowel sounds, soft. ABSENT: distended, guarding, mass, organolmegaly, rebound, tenderness Rectal exam: PRESENT: deferred Extremities exam: PRESENT: full ROM. ABSENT: calf tenderness, clubbing, pedal edema Musculoskeletal exam: PRESENT: ambulatory, full ROM Neurological exam: PRESENT: alert, awake, oriented to person, oriented to place , oriented to time, oriented to situation, CN II-XII grossly intact. ABSENT: motor sensory deficit Psychiatric exam: PRESENT: appropriate affect, flat affect, normal mood. ABSENT : homicidal ideation, suicidal ideation Skin exam: PRESENT: dry, intact, warm. ABSENT: cyanosis, rash Results Laboratory Results: 08/27/17 06:20 08/27/17 06:20 08/25/17 08/25/17 08/25/17 10:30 14:25 18:25 Troponin I 0.108 0.085 0.079 08/26/17 00:27 Troponin I 0.065 Impressions: Chest X-Ray 08/24/17 13:13 IMPRESSION: Suspect minimal volume loss in the left base. Otherwise, no acute cardiopulmonary disease. Head CT 08/27/17 00:00 IMPRESSION: No acute intracranial process. Multiple old infarcts. EVIDENCE OF ACUTE STROKE: NO. Chest/Abdomen CTA 08/27/17 08:20 IMPRESSION: NORMAL CTA OF THE CHEST. NO PULMONARY EMBOLI. Plan Discharge Plan: Patient was discharged home with family Time Spent: Less than 30 Minutes
--- NOTE | 2017-08-29 15:34 | PDOC PROGRESS REPORT ---
Subjective Progress Note for:: 08/29/17 Subjective:: Patient seems to be doing better with gradual improvement. Patient has remained stable and is expecting to be discharged today. Pt is denying any chest arm or neck discomfort. Patient claims headaches especially waking up with headaches. Patient denying any PND, orthopnea. Patient denied any sustained palpitations, dizziness, syncope, near syncope. Patient denying any fever chills. Patient denying any other significant discomfort. CT of the head negative for any intracranial bleed. Patient does give history of chronic headaches but has been more intense while in the hospital. Headaches noted to be somewhat better after holding Imdur. Patient is maintaining sinus rhythm. Review of systems: Rest review of systems negative. Medications: Medications have been reviewed. Reason For Visit: ACS Physical Exam Vital Signs: Temp Pulse Resp BP Pulse Ox 98.2 F 74 18 110/55 L 96 08/29/17 12:33 08/29/17 12:33 08/29/17 12:33 08/29/17 12:33 08/29/17 12:33 Intake & Output 08/28/17 08/29/17 08/30/17 06:59 06:59 06:59 Intake Total 1053 1464 Output Total 300 1950 Balance 753 -486 Weight 97.2 kg Exam: GENERAL: well-nourished and in no acute distress. Alert and oriented x3 HEAD: Atraumatic, normocephalic. EYES: Pupils equal round and reactive to light, extraocular movements intact, sclera anicteric, conjunctiva are normal. ENT: TMs normal, nares patent, oropharynx clear without exudates. Moist mucous membranes. No oral ulcerations or bleeding gums noted NECK: supple without lymphadenopathy. Trachea is central. No cervical or axillary lymphadenopathy noted. Carotids are 2+, JVD WNL LUNGS: Respiration seems nonlabored, no significant accessory muscle action noted. Breath sounds clear to auscultation bilaterally and equal noted. No wheezes rales or rhonchi noted. No significant dullness noted on percussion. CHEST: Palpation of the chest wall shows no significant chest wall tenderness. No other significant abnormalities noted. 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 ABDOMEN: Soft, no significant tenderness appreciated, normoactive bowel sounds. No guarding, no rebound. No rigidity noted . No masses appreciated. EXTREMITIES: Pedal pulses are 1-2+, no calf tenderness noted. No clubbing or cyanosis.trace to 1+ pedal edema noted NEUROLOGICAL: Focused neurological exam showed no significant neurologic deficit. Normal speech, no focal weakness appreciated. PSYCH: Normal mood, normal affect. Judgment and insight within normal limits. SKIN: No significant ecchymosis, rash, ulcerations or signs of pruritus noted. MUSCULOSKELETAL EXAM: No significant joint swelling noted. Results Laboratory Results: 08/27/17 06:20 08/27/17 06:20 08/25/17 08/25/17 08/25/17 10:30 14:25 18:25 Troponin I 0.108 0.085 0.079 08/26/17 00:27 Troponin I 0.065 EKG Comments: Telemetry strips shows sinus rhythm without any sustained tacky or bradycardia arrhythmias. Impressions: Chest X-Ray 08/24/17 13:13 IMPRESSION: Suspect minimal volume loss in the left base. Otherwise, no acute cardiopulmonary disease. Head CT 08/27/17 00:00 IMPRESSION: No acute intracranial process. Multiple old infarcts. EVIDENCE OF ACUTE STROKE: NO. Chest/Abdomen CTA 08/27/17 08:20 IMPRESSION: NORMAL CTA OF THE CHEST. NO PULMONARY EMBOLI. Assessment & Plan - Diagnosis (1) Non-STEMI (non-ST elevated myocardial infarction) Is this a current diagnosis for this admission?: Yes (2) Chest pain Qualifiers: Chest pain type: unspecified Qualified Code(s): R07.9 - Chest pain, unspecified Is this a current diagnosis for this admission?: Yes (3) CAD (coronary artery disease) Qualifiers: Coronary Disease-Associated Artery/Lesion type: [place] artery [place] vs. transplanted heart: [place] heart Associated angina: angina presence unspecified Qualified Code(s): I25.10 - Atherosclerotic heart disease of [place] coronary artery without angina pectoris Is this a current diagnosis for this admission?: Yes (4) Anxiety disorder Qualifiers: Anxiety disorder type: generalized anxiety disorder Qualified Code(s): F41.1 - Generalized anxiety disorder Is this a current diagnosis for this admission?: Yes (5) Diabetes Qualifiers: Diabetes mellitus type: type 2 Diabetes mellitus complication status: with unspecified complications Diabetes mellitus terminal operator insulin use: unspecified terminal operator insulin use status Qualified Code(s): E11.8 - Type 2 diabetes mellitus with unspecified complications Is this a current diagnosis for this admission?: Yes (6) Headache Qualifiers: Headache type: tension-type Headache chronicity pattern: episodic headache Intractability: intractable Qualified Code(s): G44.211 - Episodic tension- type headache, intractable Is this a current diagnosis for this admission?: Yes (7) HTN (hypertension) Qualifiers: Hypertension type: essential hypertension Qualified Code(s): I10 - Essential (primary) hypertension Is this a current diagnosis for this admission?: Yes - Notes Notes: Non-STEMI: Stabilized on medical therapy. Stress test was noted to be relatively low risk. Patient on a stable medical regimen for last few days and is being discharged. Informed that patient will need regular cardiology follow- up. Chest pain: Resolved without any recurrence since admission. Medical regimen for CAD has been stabilized. Coronary artery disease: Patient gives history of stent placement. Will therefore continue on Plavix. Currently is stable regimen. Anxiety disorder: Patient would benefit from anxiolytics especially SSRI agents. Diabetes: Recommend good control of diabetes but in light any hyper or hypoglycemia. Headaches: Resolved. 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 - Time Time with patient: Greater than 35 minutes - CODE STATUS : was discussed, patient remains DO NOT RESUSCITATE. Surrogate decision-maker unchanged. Multiple medical problems were addressed. Medical decision making was of moderate to high complexity, patient's has multiple comorbidities. Medications reviewed and adjusted accordingly: Yes
== END 2017-08-29 13:40 | disposition home or self-care (01) | DRG 281 ==
LOC: ER 13:12 → EH 17:33 → 4S 21:30 → OBSVTOIN 08-25 09:52
PROVIDERS: ADMIT Pediatrics; ATTEND Pediatrics
DX: I21.4 Non-ST elevation (NSTEMI) myocardial infarction (principal); I50.32 Chronic diastolic (congestive) heart failure; I11.0 Hypertensive heart disease with heart failure; E11.9 Type 2 diabetes mellitus without complications; I25.10 Atherosclerotic heart disease of native coronary artery without angina pectoris; Z66 Do not resuscitate; D72.829 Elevated white blood cell count, unspecified; K21.9 Gastro-esophageal reflux disease without esophagitis; E78.5 Hyperlipidemia, unspecified; M19.90 Unspecified osteoarthritis, unspecified site; F32.9 Major depressive disorder, single episode, unspecified; F17.210 Nicotine dependence, cigarettes, uncomplicated; E66.01 Morbid (severe) obesity due to excess calories; G44.211 Episodic tension-type headache, intractable; J02.9 Acute pharyngitis, unspecified; F41.1 Generalized anxiety disorder; Z68.38 Body mass index [BMI] 38.0-38.9, adult; Z86.73 Personal history of transient ischemic attack (TIA), and cerebral infarction without residual deficits; Z79.4 Long term (current) use of insulin; Z79.82 Long term (current) use of aspirin; Z79.899 Other long term (current) drug therapy; Z86.14 Personal history of Methicillin resistant Staphylococcus aureus infection; Z83.3 Family history of diabetes mellitus; Z95.5 Presence of coronary angioplasty implant and graft; Z86.711 Personal history of pulmonary embolism; Z85.828 Personal history of other malignant neoplasm of skin; Z82.49 Family history of ischemic heart disease and other diseases of the circulatory system; Z80.1 Family history of malignant neoplasm of trachea, bronchus and lung; Z80.9 Family history of malignant neoplasm, unspecified; Z88.6 Allergy status to analgesic agent; Z90.710 Acquired absence of both cervix and uterus; Z90.49 Acquired absence of other specified parts of digestive tract
CPT/HCPCS: 36415; 70450; 71010; 71275; 78452; 80048; 80053; 81001; 82550; 82553; 82962; 84484; 85025; 85027; 85379; 85610; 85730; 93005; 93010; 93017; 93306; 96360; 96361; 99285; A9500; G0378; J0280; J1644; J1815; J2785; J3490; J7040; Q9969

== ENCOUNTER 2017-08-30 21:17 | Emergency (ER) | payer MEDICARE, OTHER ==
[2017-08-30 21:41] LABS: HEMATOCRIT 44.7 % (36.0-47.0); HEMOGLOBIN 13.5 g/dL (12.0-15.5); MEAN CORPUSCULAR HEMOGLOBIN 18.2 pg (27.0-33.4); MEAN CORPUSCULAR HGB CONC 30.2 g/dL (32.0-36.0); MEAN CORPUSCULAR VOLUME 60 fl (80-97); PLATELET COUNT 324 10^3/uL (150-450); RED BLOOD COUNT 7.41 10^6/uL (3.72-5.28); RED CELL DISTRIBUTION WIDTH 22.4 % (11.5-14.0)
[2017-08-30 21:49] LABS: INTERNATIONAL RATION (INR) 1.06; PROTHROMBIN TIME 14.5 SEC (11.4-15.4)
[2017-08-30 22:04] LABS: ALANINE AMINOTRANSFERASE 34 U/L (9-52); ALKALINE PHOSPHATASE 252 U/L (38-126); ANION GAP 11 (5-19); ASPARTATE AMINO TRANSFERASE 30 U/L (14-36); BILIRUBIN,DIRECT 0.3 mg/dL (0.0-0.4); BLOOD UREA NITROGEN 27 mg/dL (7-20); CALCIUM 10.1 mg/dL (8.4-10.2); CARBON DIOXIDE 27 mmol/L (22-30); CHLORIDE 100 mmol/L (98-107); GLUCOSE 181 mg/dL (75-110); POTASSIUM 4.7 mmol/L (3.6-5.0); TOTAL PROTEIN 7.4 g/dL (6.3-8.2)
--- NOTE | 2017-08-30 22:04 | RADIOLOGY REPORT (SQ) ---
EXAM DESCRIPTION: CHEST SINGLE VIEW COMPLETED DATE/TIME: 08/30/2017 9:37 pm REASON FOR STUDY: cp COMPARISON: CT angio chest 08/27/2017 EXAM PARAMETERS: NUMBER OF VIEWS: One view. TECHNIQUE: Single frontal radiographic view of the chest acquired. RADIATION DOSE: NA LIMITATIONS: None. FINDINGS: LUNGS AND PLEURA: No opacities, masses or pneumothorax. No pleural effusion. MEDIASTINUM AND HILAR STRUCTURES: No masses. Contour normal. HEART AND VASCULAR STRUCTURES: Heart normal in size. Normal vasculature. BONES: No acute findings. HARDWARE: None in the chest. OTHER: No other significant finding. IMPRESSION: NO ACUTE RADIOGRAPHIC FINDING IN THE CHEST. TECHNICAL DOCUMENTATION: JOB ID: [id number] [employer]- All Rights Reserved
[2017-08-30 22:07] LABS: CREATINE KINASE < 20 U/L (30-135)
[2017-08-30 22:09] LABS: CREATINE KINASE MB 0.54 ng/mL (<4.55); TROPONIN I 0.013 ng/mL
[2017-08-30 22:21] LABS: ABSOLUTE LYMPHOCYTES# (MANUAL) 2.3 10^3/uL (0.5-4.7); ABSOLUTE MONOCYTES # (MANUAL) 1.5 10^3/uL (0.1-1.4); ABSOLUTE NEUTROPHILS# (MANUAL) 33.4 10^3/uL (1.7-8.2); BAND NEUTROPHILS % (MANUAL) 6 % (3-5); BASOPHILS % (MANUAL) 0 % (0-2); EOSINOPHILS % (MANUAL) 1 % (0-6); LYMPHOCYTES % (MANUAL) 6 % (13-45); MONOCYTES % (MANUAL) 4 % (3-13); SEGMENTED NEUTROPHILS % (MAN) 83 % (42-78); TOTAL CELLS COUNTED 100
[2017-08-30 22:23] LABS: ANISOCYTOSIS 2+; PLATELET COMMENT ADEQUATE; TOXIC VACUOLATION PRESENT
[2017-08-30 22:25] LABS: OVALOCYTES 1+; PLATELET GIANT PRESENT; POIKILOCYTOSIS 1+; POLYCHROMASIA SLIGHT; TEAR DROP CELLS SLIGHT
[2017-08-30 22:31] LABS: WHITE BLOOD COUNT 37.5 10^3/uL (4.0-10.5)
[2017-08-30] MEDS ORDERED: FAMOTIDINE 20 MG TABLET PO ONE (22:34)
[2017-08-30] MEDS ORDERED: LIDOCAINE 2% VISCOUS SOLN 20 ML UDCUP PO ONE (22:34)
[2017-08-30] MEDS ORDERED: METOCLOPRAMIDE HCL ORAL SOLN 10 MG/10 ML UDCUP PO ONE (22:34)
[2017-08-30] MEDS ORDERED: MAG HYDROX/AL HYDROX/SIMETH SUSP 30 ML UDCUP PO ONE (22:34)
--- NOTE | 2017-08-30 22:36 | ER Document Report ---
ED General - General Chief Complaint: Chest Pressure Stated Complaint: CHEST PAIN,POSSIBLE CONFUSION Time Seen by Provider: 08/30/17 21:52 Notes: Patient is an 82-year-old female with a past medical history of hypertension, just discharged from the hospital yesterday after being diagnosed as having a possible NSTEMI who presents with an episode of chest pain after she choked on [place] fries. Patient reports that she has several children tries, fell intake became stuck in her throat and began gagging and coughing. She states that after she had this episode she developed a dull, constant pain in the center of her chest. Nothing improves or worsens that pain. She denies a history of similar symptoms in the past. She denies any shortness of breath, diaphoresis or vomiting. TRAVEL OUTSIDE OF THE [place] IN LAST 30 DAYS: No - Related Data Allergies/Adverse Reactions: morphine Allergy (Verified 08/24/17 14:11) Past Medical History - General Information source: Patient - Social History Smoking Status: Never Smoker Frequency of alcohol use: None Drug Abuse: None Lives with: Family Family History: CAD, COPD, DM, Hyperlipidemia, Hypertension, Malignancy - Father with lung cancer, Other Patient has suicidal ideation: No Patient has homicidal ideation: No - Past Medical History Cardiac Medical History: Reports: Hx Congestive Heart Failure - Diastolic, Hx Heart Attack - EKG suggests probable prior infarction, Hx Hypercholesterolemia, Hx Hypertension, Hx Pulmonary Embolism - Distant history Pulmonary Medical History: Denies: Hx Asthma, Hx COPD, Hx Sleep Apnea Neurological Medical History: Denies: Hx Seizures Endocrine Medical History: Reports: Hx Diabetes Mellitus Type 1, Hx Diabetes Mellitus Type 2. Denies: Hx Hyperthyroidism, Hx Hypothyroidism Renal/ Medical History: Denies: Hx End Stage Renal Disease, Hx Peritoneal Dialysis Malignancy Medical History: Reports: Hx Skin Cancer - Excised from her nose. GI Medical History: Reports: Hx Gastroesophageal Reflux Disease. Denies: Hx Cirrhosis, Hx Hepatitis Musculoskeltal Medical History: Reports Hx Arthritis, Reports Hx Musculoskeletal Deformity Skin Medical History: Denies Hx Eczema, Denies Hx Psoriasis Psychiatric Medical History: Reports: Hx Anxiety, Hx Depression Infectious Medical History: Reports: Hx MRSA - Quite distant history. Denies: Hx C-Diff, Hx Hepatitis Past Surgical History: Reports: Hx Abdominal Surgery, Hx Appendectomy, Hx Cholecystectomy, Hx Hysterectomy, Hx Tonsillectomy, Other - Cardiac loop recorder, bilateral cataract surgery - Immunizations Hx Diphtheria, Pertussis, Tetanus Vaccination: No Hx Pneumococcal Vaccination: 04/29/13 Review of Systems - Review of Systems Notes: Constitutional: Negative for fever. HENT: Negative for sore throat. Eyes: Negative for visual changes. Cardiovascular: Positive for chest pain. Respiratory: Negative for shortness of breath. Gastrointestinal: Negative for abdominal pain, vomiting or diarrhea. Genitourinary: Negative for dysuria. Musculoskeletal: Negative for back pain. Skin: Negative for rash. Neurological: Negative for headaches, weakness or numbness. 10 point ROS negative except as marked above and in HPI. Physical Exam - Vital signs Vitals: Temp Resp BP Pulse Ox 98.4 F 16 112/67 95 08/30/17 21:24 08/30/17 21:24 08/30/17 21:24 08/30/17 21:24 Interpretation: Normal Notes: PHYSICAL EXAMINATION: GENERAL: Well-appearing, well-nourished and in no acute distress. HEAD: Atraumatic, normocephalic. EYES: Pupils equal round and reactive to light, extraocular movements intact, sclera anicteric, conjunctiva are normal. ENT: nares patent, oropharynx clear without exudates. Moist mucous membranes. NECK: Normal range of motion, supple without lymphadenopathy LUNGS: Breath sounds clear to auscultation bilaterally and equal. No wheezes rales or rhonchi. HEART: Regular rate and rhythm without murmurs Chest wall: Reproduction of pain on palpation of the central chest ABDOMEN: Soft, nontender, normoactive bowel sounds. No guarding, no rebound. No masses appreciated. EXTREMITIES: Normal range of motion, no pitting or edema. No cyanosis. NEUROLOGICAL: No focal neurological deficits. Moves all extremities spontaneously and on command. PSYCH: Normal mood, normal affect. SKIN: Warm, Dry, normal turgor, no rashes or lesions noted. Course - Re-evaluation Re-evalutation: 08/30/17 22:34 Patient presents with substernal chest pressure after choking and gagging on prior to arrival. Patient just had a normal stress test on 25 August 2017 and had serial cardiac markers during that episode none of which proceeded above 0.3. Patient's initial troponin here today is lower than her troponin at time of discharge yesterday. Her symptoms suggest most likely esophageal spasm in the setting of gagging and choking as her pain started immediately thereafter. Her EKG is without ischemic changes. Her chest x-ray is clear without any evidence of an esophageal rupture, pneumothorax or widened mediastinum. Her clinical history does not suggest an acute PE or aortic dissection. However will proceed with a repeat troponin 3 hours from initial to ensure that it remains normal prior to consideration of discharge. 08/31/17 01:21 Repeat troponin remains normal. Patient remains without any chest discomfort. At this time will discharge with return precautions and follow-up recommendations. Verbal discharge instructions given a the bedside and opportunity for questions given. Medication warnings reviewed. Patient is in agreement with this plan and has verbalized understanding of return precautions and the need for primary care follow-up in the next 24-72 hours. - Vital Signs Vital signs: Temp Pulse Resp BP Pulse Ox 98.4 F 18 119/63 94 08/30/17 21:24 08/31/17 01:01 08/31/17 01:01 08/31/17 01:01 - Laboratory Result Diagrams: 08/30/17 21:25 08/30/17 21:25 Laboratory results interpreted by me: 08/30/17 08/30/17 21:25 21:25 WBC 37.5 H* RBC 7.41 H MCV 60 L MCH 18.2 L MCHC 30.2 L RDW 22.4 H Seg Neuts % (Manual) 83 H Band Neutrophils % 6 H Lymphocytes % (Manual) 6 L Abs Neuts (Manual) 33.4 H Abs Monocytes (Manual) 1.5 H BUN 27 H Est GFR ( Amer) 50 L Est GFR (Non-Af Amer) 41 L Glucose 181 H Alkaline Phosphatase 252 H Creatine Kinase < 20 L - Diagnostic Test Radiology reviewed: Image reviewed, Reports reviewed Radiology results interpreted by me: 08/30/17 22:36 Chest x-ray: No acute infiltrate or pneumothorax - EKG Interpretation by Me Additional EKG results interpreted by me: 08/30/17 22:36 Sinus rhythm. Rate 87. No ST elevations or depressions. QTC is 482. Discharge - Discharge Clinical Impression: Choking episode Chest pain Qualifiers: Chest pain type: unspecified Qualified Code(s): R07.9 - Chest pain, unspecified Leukocytosis Qualifiers: Leukocytosis type: unspecified Qualified Code(s): D72.829 - Elevated white blood cell count, unspecified Condition: Good Disposition: HOME, SELF-CARE Additional Instructions: Your episode of chest pain today was likely due to your gagging and choking episode. Your cardiac markers are normal. Your EKG does not show a heart attack. You just had a stress test 4 days ago which did not show any evidence of blockages. Return for any additional concerns you may have including recurrent chest pain, vomiting, shortness of breath, or any other symptoms that are worrisome to you.
[2017-08-31 01:14] VITALS: BP 119/63
--- NOTE | 2017-08-31 10:37 | EKG REPORT ---
SEVERITY:- ABNORMAL ECG - SINUS RHYTHM PROBABLE INFERIOR INFARCT, OLD ANTERIOR INFARCT, OLD : Confirmed by: Bud Medina 31-Aug-2017 10:36:01
== END 2017-08-31 02:15 | disposition home or self-care (01) ==
LOC: ER 21:17
DX: R07.9 Chest pain, unspecified (principal); D72.829 Elevated white blood cell count, unspecified; I10 Essential (primary) hypertension
CPT/HCPCS: 93005; 99285; 36415; 82553; 82550; 85025; 85610; 80053; 84484; 71045; 93010; A9270 ×2; J3490

== ENCOUNTER 2017-09-30 15:21 | Emergency (ER) | payer MEDICARE, OTHER ==
--- NOTE | 2017-09-30 15:44 | ER Document Report ---
ED General - General Stated Complaint: NAUSEA TRAVEL OUTSIDE OF THE [place] IN LAST 30 DAYS: No - HPI Notes: Patient is an 82-year-old female who presents to the ED complaining of lower abdominal cramping, nausea/vomiting/diarrhea, report of dark tarry stool 2-3 days. Patient states that the cramping is just intermittent mild. Patient does feel nauseous now, but has not vomited since this morning. Patient states that she vomited 3 times yesterday and the day before that. Patient has not noticed any hematemesis or bright red blood per rectum. Patient states that her diarrhea is loose stool and not watery. Patient has a previous surgical history of cholecystectomy and appendectomy as well as a hysterectomy to her abdomen. Patient states that she is ambulatory without any chest pain or dyspnea on exertion. Patient reports an allergy to morphine. Patient states that she also has occasional burning with urination. Denies any headache, fever , neck pain, URI, sore throat, chest pain, palpitations, syncope, cough, shortness of breath, wheeze, dyspnea, urinary retention, hematuria, back pain, loss of control of bowel or bladder, numbness/tingling, saddle anesthesia, muscle paralysis/weakness, or rash. PMH of HTN, CAD, DM, Hypercholesterolemia, CHF, GERD, anxiety. - Related Data Allergies/Adverse Reactions: morphine Allergy (Verified 09/30/17 15:46) Past Medical History - Social History Smoking Status: Never Smoker Family History: CAD, COPD, DM, Hyperlipidemia, Hypertension, Malignancy - Father with lung cancer, Other - Past Medical History Cardiac Medical History: Reports: Hx Congestive Heart Failure - Diastolic, Hx Heart Attack - EKG suggests probable prior infarction, Hx Hypercholesterolemia, Hx Hypertension, Hx Pulmonary Embolism - Distant history Pulmonary Medical History: Denies: Hx Asthma, Hx COPD, Hx Sleep Apnea Neurological Medical History: Denies: Hx Seizures Endocrine Medical History: Reports: Hx Diabetes Mellitus Type 1, Hx Diabetes Mellitus Type 2. Denies: Hx Hyperthyroidism, Hx Hypothyroidism Renal/ Medical History: Denies: Hx End Stage Renal Disease, Hx Peritoneal Dialysis Malignancy Medical History: Reports: Hx Skin Cancer - Excised from her nose. GI Medical History: Reports: Hx Gastroesophageal Reflux Disease. Denies: Hx Cirrhosis, Hx Hepatitis Musculoskeltal Medical History: Reports Hx Arthritis, Reports Hx Musculoskeletal Deformity Skin Medical History: Denies Hx Eczema, Denies Hx Psoriasis Psychiatric Medical History: Reports: Hx Anxiety, Hx Depression Infectious Medical History: Reports: Hx MRSA - Quite distant history. Denies: Hx C-Diff, Hx Hepatitis Past Surgical History: Reports: Hx Abdominal Surgery, Hx Appendectomy, Hx Cholecystectomy, Hx Hysterectomy, Hx Tonsillectomy, Other - Cardiac loop recorder, bilateral cataract surgery - Immunizations Hx Diphtheria, Pertussis, Tetanus Vaccination: No Hx Pneumococcal Vaccination: 04/29/13 Review of Systems - Review of Systems -: Yes All other systems reviewed and negative - see hpi Physical Exam - Vital signs Vitals: Temp Pulse Resp BP Pulse Ox 97.8 F 86 20 144/72 H 96 09/30/17 15:31 09/30/17 15:31 09/30/17 15:31 09/30/17 15:31 09/30/17 15:31 - Notes Notes: PHYSICAL EXAMINATION: GENERAL: Well-appearing, well-nourished and in no acute distress. A&Ox4. Answers questions appropriately. HEAD: Atraumatic, normocephalic. EYES: Pupils equal round and reactive to light, extraocular movements intact, sclera anicteric, conjunctiva are normal. ENT: Nares patent and without discharge. oropharynx clear without exudates. No tonsilar hypertrophy or erythema. Moist mucous membranes. NECK: Normal range of motion, supple without lymphadenopathy LUNGS: Breath sounds clear to auscultation bilaterally and equal. No wheezes rales or rhonchi. HEART: Regular rate and rhythm without murmurs, rubs, gallops. ABDOMEN: Soft, nontender, nondistended abdomen. No guarding, no rebound. No masses appreciated. Normal bowel sounds present. No CVA tenderness bilaterally. Obese. Rectal: no obvious hemorrhoid/fissure noted. No impaction. Stool is brown w/ o obvious melena or yuliet blood. Musculoskeletal: FROM to passive/active. Strength 5+/5. Extremities: No cyanosis, clubbing, or edema b/l. Peripheral pulses 2+. Capillary refill less than 3 seconds. NEUROLOGICAL: Cranial nerves grossly intact. Normal speech. Normal sensory, motor exams PSYCH: Normal mood, normal affect. SKIN: Warm, Dry, normal turgor, no rashes or lesions noted. Course - Re-evaluation Re-evalutation: 09/30/17 18:40 Patient is an afebrile, well-hydrated, 82-year-old female who presents to the ED with acute gastroenteritis based on H&P today. Vitals are stable. PE is otherwise unremarkable. UA unremarkable. UC pending. CBC values are at baseline without any acute changes in hemoglobin/hematocrit. CMP showed a mildly elevated glucose without suspicion of acidosis at this time. Lipase and Guaiac were negative. 1 L of fluids were provided. Patient is tolerating p.o. without any difficulties. Patient was also given Zofran. Patient is tolerating p.o. without any difficulties. Low suspicion/risk for acute appendicitis, bowel obstruction, acute cholecystitis, acute cholangitis, perforated diverticulitis, incarcerated hernia, pancreatitis, perforated ulcer, peritonitis, sepsis, or other systemic emergent condition at this time. Patient is aware that her condition can change from initial presentation and she needs to monitor symptoms closely and seek medical attention if any acute changes. Conservative measures otherwise for symptoms. Recheck with your PCM in 2-3 days. Consider consult with a elocution teacher. Return to the ED with any worsening/concerning symptoms otherwise as reviewed in discharge. Patient is in agreement. - Vital Signs Vital signs: Temp Pulse Resp BP Pulse Ox 97.8 F 86 20 144/72 H 96 09/30/17 15:31 09/30/17 15:31 09/30/17 15:31 09/30/17 15:31 09/30/17 15:31 - Laboratory Result Diagrams: 09/30/17 16:09 09/30/17 16:09 Laboratory results interpreted by me: 09/30/17 09/30/17 09/30/17 16:09 16:09 17:40 WBC 34.3 H* RBC 7.53 H MCV 62 L MCH 18.1 L MCHC 29.4 L RDW 23.7 H Seg Neuts % (Manual) 84 H Band Neutrophils % 8 H Lymphocytes % (Manual) 6 L Monocytes % (Manual) 0 L Abs Neuts (Manual) 31.6 H Abs Monocytes (Manual) 0.0 L Abs Basophils (Manual) 0.3 H BUN 21 H Est GFR ( Amer) 54 L Est GFR (Non-Af Amer) 45 L Glucose 345 H Direct Bilirubin 0.5 H Alkaline Phosphatase 216 H Urine Protein 30 H Urine Glucose (UA) >=500 H Urine Urobilinogen 2.0 H Discharge - Discharge Clinical Impression: Nausea vomiting and diarrhea Condition: Stable Disposition: HOME, SELF-CARE Instructions: Gastroenteritis (adult) ([facility]) Additional Instructions: Maintain adequate fluid and food intake [place] diet ([employer] Bananas, rice, apples, toast, etc Zofran as needed tylenol if needed Monitor for any worsening symptoms Make sure you are staying hydrated enough to urinate and have normal BM's Recheck with your PCM in 2-3 days Consider consult with Gastroenterology for ongoing/worsening symptoms Return to the ED with any worsening symptoms and/or development of fever, headache, chest pain, palpitations, syncope, shortness of breath, trouble breathing, abdominal pain, n/v/d, blood in stool/urine, weakness, or other worsening symptoms that are concerning to you. Prescriptions: Ondansetron [Zofran Odt 4 mg Tablet] 1 - 2 tab PO Q4H PRN #15 tab.rapdis PRN Reason: For Nausea/Vomiting Referrals: JAVED GUERRIER MD [Primary Care Provider] - 10/03/17 KLEVER SANDOVAL MD [ACTIVE STAFF] - Follow up as needed
[2017-09-30 16:36] LABS: HEMATOCRIT 46.5 % (36.0-47.0); HEMOGLOBIN 13.7 g/dL (12.0-15.5); MEAN CORPUSCULAR HEMOGLOBIN 18.1 pg (27.0-33.4); MEAN CORPUSCULAR HGB CONC 29.4 g/dL (32.0-36.0); PLATELET COUNT 331 10^3/uL (150-450); RED CELL DISTRIBUTION WIDTH 23.7 % (11.5-14.0)
[2017-09-30 16:49] LABS: ALANINE AMINOTRANSFERASE 23 U/L (9-52); ALBUMIN 3.8 g/dL (3.5-5.0); ALKALINE PHOSPHATASE 216 U/L (38-126); ANION GAP 7 (5-19); ASPARTATE AMINO TRANSFERASE 19 U/L (14-36); BILIRUBIN,DIRECT 0.5 mg/dL (0.0-0.4); BILIRUBIN,TOTAL 0.9 mg/dL (0.2-1.3); BLOOD UREA NITROGEN 21 mg/dL (7-20); CALCIUM 9.5 mg/dL (8.4-10.2); CARBON DIOXIDE 27 mmol/L (22-30); CHLORIDE 107 mmol/L (98-107); GLUCOSE 345 mg/dL (75-110); LIPASE 179.6 U/L (23-300); POTASSIUM 4.7 mmol/L (3.6-5.0); SODIUM 141.3 mmol/L (137-145); TOTAL PROTEIN 7.6 g/dL (6.3-8.2)
[2017-09-30 17:12] LABS: ABSOLUTE LYMPHOCYTES# (MANUAL) 2.1 10^3/uL (0.5-4.7); ABSOLUTE NEUTROPHILS# (MANUAL) 31.6 10^3/uL (1.7-8.2); BAND NEUTROPHILS % (MANUAL) 8 % (3-5); BASOPHILS % (MANUAL) 1 % (0-2); EOSINOPHILS % (MANUAL) 1 % (0-6); LYMPHOCYTES % (MANUAL) 6 % (13-45); MONOCYTES % (MANUAL) 0 % (3-13); SEGMENTED NEUTROPHILS % (MAN) 84 % (42-78); TOTAL CELLS COUNTED 100
[2017-09-30 17:14] LABS: ANISOCYTOSIS 3+; OVALOCYTES 1+; PLATELET COMMENT ADEQUATE; POIKILOCYTOSIS 1+
[2017-09-30 17:15] LABS: PLATELET LARGE PRESENT; TOXIC VACUOLATION PRESENT
[2017-09-30 17:20] LABS: RED BLOOD COUNT 7.53 10^6/uL (3.72-5.28)
[2017-09-30 17:24] LABS: MEAN CORPUSCULAR VOLUME 62 fl (80-97); WHITE BLOOD COUNT 34.3 10^3/uL (4.0-10.5)
[2017-09-30] MEDS ORDERED: NORMAL SALINE 1000 ML 1,000 ML IV ONE (17:28)
[2017-09-30] MEDS ORDERED: ONDANSETRON HCL INJ/PF 4 MG/2 ML SDV IV ONE (17:30)
[2017-09-30 18:08] LABS: APPEARANCE,URINE CLEAR; BILIRUBIN,URINE NEGATIVE (NEGATIVE); COLOR,URINE YELLOW; GLUCOSE, URINE >=500 mg/dL (NEGATIVE); KETONES,URINE NEGATIVE (NEGATIVE); LEUKOCYTE ESTERASE,URINE NEGATIVE (NEGATIVE); NITRITE,URINE NEGATIVE (NEGATIVE); PROTEIN,URINE 30 mg/dL (NEGATIVE); URINE SPECIFIC GRAVITY 1.012
[2017-09-30 20:12] VITALS: BP 141/62
== END 2017-09-30 20:10 | disposition home or self-care (01) ==
LOC: ER 15:21
DX: R11.0 Nausea (principal); R11.2 Nausea with vomiting, unspecified; R19.7 Diarrhea, unspecified
CPT/HCPCS: 99284; 96361; 96374; 36415; 87086; 83690; 85025; 82272; 80053; 81001; 87186; J2405; J7030; 87088

== ENCOUNTER 2017-10-19 21:09 | Emergency (ER) | payer MEDICARE, OTHER ==
--- NOTE | 2017-10-19 22:27 | RADIOLOGY REPORT (SQ) ---
EXAM DESCRIPTION: CHEST SINGLE VIEW COMPLETED DATE/TIME: 10/19/2017 10:08 pm REASON FOR STUDY: cp COMPARISON: 07/31/2016 EXAM PARAMETERS: NUMBER OF VIEWS: One view. TECHNIQUE: Single frontal radiographic view of the chest acquired. RADIATION DOSE: NA LIMITATIONS: None. FINDINGS: LUNGS AND PLEURA: No acute opacities, masses or pneumothorax. No pleural effusion. MEDIASTINUM AND HILAR STRUCTURES: Stable. HEART AND VASCULAR STRUCTURES: Heart normal in size. Normal vasculature. BONES: No acute findings. HARDWARE: None in the chest. OTHER: No other significant finding. IMPRESSION: NO ACUTE RADIOGRAPHIC FINDING IN THE CHEST. TECHNICAL DOCUMENTATION: JOB ID: [id number] [place]-[id number] 2010 [employer]- All Rights Reserved
--- NOTE | 2017-10-19 23:32 | ER Document Report ---
ED Medical Screen (RME) - General Chief Complaint: Chest Pain Stated Complaint: CHEST PAIN Time Seen by Provider: 10/19/17 23:29 Mode of Arrival: Medic Information source: Patient Notes: 82 yo c/o retrosternal midline dull intermitent chest pain with shortness of breath since 20:00. Eased to level 4/5 now. Had NONSTEMI HI 08-23-17. HX CAD, chronic diastolic CHF, anxiety, CVA. TRAVEL OUTSIDE OF THE [place] IN LAST 30 DAYS: No - Related Data Allergies/Adverse Reactions: morphine Allergy (Verified 09/30/17 15:46) Past Medical History - Past Medical History Cardiac Medical History: Reports: Hx Congestive Heart Failure - Diastolic, Hx Heart Attack - EKG suggests probable prior infarction, Hx Hypercholesterolemia, Hx Hypertension, Hx Pulmonary Embolism - Distant history Pulmonary Medical History: Denies: Hx Asthma, Hx COPD, Hx Sleep Apnea Neurological Medical History: Denies: Hx Seizures Endocrine Medical History: Reports: Hx Diabetes Mellitus Type 1, Hx Diabetes Mellitus Type 2. Denies: Hx Hyperthyroidism, Hx Hypothyroidism Renal/ Medical History: Denies: Hx End Stage Renal Disease, Hx Peritoneal Dialysis Malignancy Medical History: Reports: Hx Skin Cancer - Excised from her nose. GI Medical History: Reports: Hx Gastroesophageal Reflux Disease. Denies: Hx Cirrhosis, Hx Hepatitis Musculoskeltal Medical History: Reports Hx Arthritis, Reports Hx Musculoskeletal Deformity Skin Medical History: Denies Hx Eczema, Denies Hx Psoriasis Psychiatric Medical History: Reports: Hx Anxiety, Hx Depression Infectious Medical History: Reports: Hx MRSA - Quite distant history. Denies: Hx C-Diff, Hx Hepatitis Past Surgical History: Reports: Hx Abdominal Surgery, Hx Appendectomy, Hx Cholecystectomy, Hx Hysterectomy, Hx Tonsillectomy, Other - Cardiac loop recorder, bilateral cataract surgery - Immunizations Hx Diphtheria, Pertussis, Tetanus Vaccination: No History of Influenza Vaccine for 05/2017 - 10/2017 Season: Yes Influenza Administration Date for 05/2017 - 10/2017 Season: 05/29/17 Physical Exam - Vital signs Vitals: Temp Pulse Resp BP Pulse Ox 98.9 F 81 18 128/56 H 94 10/19/17 21:31 10/19/17 21:31 10/19/17 21:31 10/19/17 21:31 10/19/17 21:31 Course - Vital Signs Vital signs: Temp Pulse Resp BP Pulse Ox 98.9 F 81 18 128/56 H 94 10/19/17 21:31 18 21:31 10/19/17 21:31 10/19/17 21:31 10/19/17 21:31
[2017-10-20 00:39] LABS: ALANINE AMINOTRANSFERASE 20 U/L (9-52); ALBUMIN 3.8 g/dL (3.5-5.0); ALKALINE PHOSPHATASE 184 U/L (38-126); ANION GAP 10 (5-19); ASPARTATE AMINO TRANSFERASE 22 U/L (14-36); BILIRUBIN,DIRECT 0.4 mg/dL (0.0-0.4); BILIRUBIN,TOTAL 1.2 mg/dL (0.2-1.3); BLOOD UREA NITROGEN 20 mg/dL (7-20); CALCIUM 9.8 mg/dL (8.4-10.2); CARBON DIOXIDE 25 mmol/L (22-30); CHLORIDE 109 mmol/L (98-107); GLUCOSE 53 mg/dL (75-110); POTASSIUM 4.2 mmol/L (3.6-5.0); SODIUM 144.1 mmol/L (137-145); TOTAL PROTEIN 7.7 g/dL (6.3-8.2)
[2017-10-20 00:40] LABS: CREATINE KINASE < 20 U/L (30-135)
[2017-10-20 00:51] LABS: CREATINE KINASE MB 0.32 ng/mL (<4.55)
[2017-10-20 00:54] LABS: TROPONIN I < 0.012 ng/mL
[2017-10-20 00:59] LABS: HEMOGLOBIN 13.7 g/dL (12.0-15.5); MEAN CORPUSCULAR HEMOGLOBIN 18.5 pg (27.0-33.4); MEAN CORPUSCULAR HGB CONC 30.4 g/dL (32.0-36.0); PLATELET COUNT 324 10^3/uL (150-450); RED CELL DISTRIBUTION WIDTH 23.3 % (11.5-14.0)
[2017-10-20 01:08] LABS: ABSOLUTE LYMPHOCYTES# (MANUAL) 2.3 10^3/uL (0.5-4.7); ABSOLUTE MONOCYTES # (MANUAL) 0.4 10^3/uL (0.1-1.4); ABSOLUTE NEUTROPHILS# (MANUAL) 35.1 10^3/uL (1.7-8.2); ANISOCYTOSIS 3+; BAND NEUTROPHILS % (MANUAL) 4 % (3-5); BASOPHILS % (MANUAL) 0 % (0-2); EOSINOPHILS % (MANUAL) 2 % (0-6); HYPOCHROMASIA 1+; LYMPHOCYTES % (MANUAL) 6 % (13-45); MONOCYTES % (MANUAL) 1 % (3-13); OVALOCYTES 1+; POIKILOCYTOSIS 1+; POLYCHROMASIA 1+; SCHISTOCYTES SLIGHT; SEGMENTED NEUTROPHILS % (MAN) 87 % (42-78); TOTAL CELLS COUNTED 100; TOXIC GRANULATION SLIGHT; TOXIC VACUOLATION PRESENT
[2017-10-20 01:09] LABS: PLATELET COMMENT ADEQUATE; PLATELET LARGE PRESENT; TEAR DROP CELLS SLIGHT
[2017-10-20 01:10] LABS: MEAN CORPUSCULAR VOLUME 61 fl (80-97); WHITE BLOOD COUNT 38.6 10^3/uL (4.0-10.5)
--- NOTE | 2017-10-20 02:05 | ER Document Report ---
ED General - General Mode of Arrival: Ambulatory Information source: Patient TRAVEL OUTSIDE OF THE [place] IN LAST 30 DAYS: No <OTIS SAUCEDA - Last Filed: 10/20/17 03:24> <DORY MCCALL - Last Filed: 10/20/17 04:09> - General Chief Complaint: Chest Pain Stated Complaint: CHEST PAIN Time Seen by Provider: 10/19/17 23:29 Notes: Patient is an 82 year old female who reports a history of hypertension, CAD with stents, strokes x2, CHF and [place] female presents to the emergency department complaining of chest pain onset tonight. Patient states that she has had 1 heart attack in the past and her symptoms now are similar. Patient also complains of dizziness. Patient denies nausea, vomiting, diarrhea, fevers, or any recent illness. Concern was expressed for her elevated white cell count but patient states that she has chronic leukocytosis . Patient further states that she has had further work up done to evaluate her white cell count and all tests have come up negative. At bedside patient states she feels better after taking a Cecil. Patient states she takes Plavix. (OTIS SAUCEDA) - Related Data Allergies/Adverse Reactions: morphine Allergy (Verified 10/20/17 00:59) Past Medical History - General Information source: Patient - Social History Smoking Status: Former Smoker Family History: CAD, COPD, DM, Hyperlipidemia, Hypertension, Malignancy - Father with lung cancer, Other Patient has suicidal ideation: No Patient has homicidal ideation: No - Past Medical History Cardiac Medical History: Reports: Hx Congestive Heart Failure - Diastolic, Hx Heart Attack - EKG suggests probable prior infarction, Hx Hypercholesterolemia, Hx Hypertension, Hx Pulmonary Embolism - Distant history Endocrine Medical History: Reports: Hx Diabetes Mellitus Type 1, Hx Diabetes Mellitus Type 2 Malignancy Medical History: Reports: Hx Skin Cancer - Excised from her nose. GI Medical History: Reports: Hx Gastroesophageal Reflux Disease Musculoskeltal Medical History: Reports Hx Arthritis, Reports Hx Musculoskeletal Deformity Psychiatric Medical History: Reports: Hx Anxiety, Hx Depression Infectious Medical History: Reports: Hx MRSA - Quite distant history Past Surgical History: Reports: Hx Abdominal Surgery, Hx Appendectomy, Hx Cholecystectomy, Hx Hysterectomy, Hx Tonsillectomy, Other - Cardiac loop recorder, bilateral cataract surgery - Immunizations Hx Diphtheria, Pertussis, Tetanus Vaccination: No Hx Pneumococcal Vaccination: 04/29/13 <OTIS SAUCEDA - Last Filed: 10/20/17 03:24> Review of Systems - Review of Systems Constitutional: No symptoms reported EENT: No symptoms reported Cardiovascular: See HPI, Chest pain, Dizziness Respiratory: No symptoms reported Gastrointestinal: No symptoms reported Genitourinary: No symptoms reported Female Genitourinary: No symptoms reported Musculoskeletal: No symptoms reported Skin: No symptoms reported Hematologic/Lymphatic: No symptoms reported Neurological/Psychological: No symptoms reported -: Yes All other systems reviewed and negative <OTIS SAUCEDA - Last Filed: 10/20/17 03:24> Physical Exam <OTIS SAUCEDA - Last Filed: 10/20/17 03:24> <STEFANYDORY - Last Filed: 10/20/17 04:09> - Vital signs Vitals: Temp Pulse Resp BP Pulse Ox 98.9 F 81 18 128/56 H 94 10/19/17 21:31 10/19/17 21:31 10/19/17 21:31 10/19/17 21:31 10/19/17 21:31 - Notes Notes: GENERAL: Alert, interacts well. No acute distress. HEAD: Normocephalic, atraumatic. EYES: Pupils equal, round, and reactive to light. Extraocular movements intact. ENT: Oral mucosa moist, tongue midline. NECK: Full range of motion. Supple. Trachea midline. LUNGS: Clear to auscultation bilaterally, no wheezes, rales, or rhonchi. No respiratory distress. HEART: Regular rate and rhythm. No murmurs, gallops, or rubs. ABDOMEN: Soft, non-tender. Non-distended. Bowel sounds present in all 4 quadrants. EXTREMITIES: Moves all 4 extremities spontaneously. NEUROLOGICAL: Alert and oriented x3. Normal speech. PSYCH: Normal affect, normal mood. SKIN: Warm, dry, normal turgor. No rashes or lesions noted. (OTIS SAUCEDA) Course - Laboratory Result Diagrams: 10/19/17 23:59 10/19/17 23:59 <OTIS SAUCEDA - Last Filed: 10/20/17 03:24> - Laboratory Result Diagrams: 10/19/17 23:59 10/19/17 23:59 - Diagnostic Test Radiology reviewed: Image reviewed - No acute disease on chest x-ray - EKG Interpretation by Me EKG shows normal: Sinus rhythm Rate: Normal Rhythm: NSR When compared to previous EKG there are: No significant change <DORY MCCALL H - Last Filed: 10/20/17 04:09> - Re-evaluation Re-evalutation: 10/20/17 02:58 Upon chart review patient had mildly elevated troponin July of last year and had stress test that chart review showed normal. Patient to troponins 2 hours apart show normal findings with EKG showing no concerning findings from previous. Will perform one more troponin to ensure no rise as it has been over 4 hours since patient has had first. I did discuss with hospitalist admission and she states patient just had stress test less than 2 months ago there is been no management this time if troponins are negative. I did discuss these findings with the patient and she is chest pain-free at this time. She is to follow-up with her primary care physician and let them know of her emergency medicine stay this week. 10/20/17 03:00 Of note, patient's leukocytosis appears chronic and she is aware of her leukocytosis and states that she has been worked up with no apparent cause of her high white cell count. She states her family doctor is aware of this abnormality cannot find cause as to why she has had this but has been evaluated for cancer in the past. Her white cell count is no higher than what her normal baseline is on chart review. 10/20/17 03:08 Upon further chart review patient was evaluated and seen by Dr. Medina. He provide recommendations and medical management for coronary artery disease. I recommended to her to follow-up with him and provided referral in her discharge paperwork. She is also to follow-up with her primary care doctor regarding her emergency room visit today. Final dispostion pending repeat EKG and troponin. 10/20/17 04:08 Serial EKG and troponins within normal limits no significant changes will be discharged at this time (DORY MCCALL) - Vital Signs Vital signs: Temp Pulse Resp BP Pulse Ox 98.9 F 81 14 128/56 H 96 10/19/17 21:31 10/19/17 21:31 10/20/17 00:39 10/19/17 21:31 10/20/17 00:57 - Laboratory Laboratory results interpreted by me: 10/19/17 10/19/17 23:59 23:59 WBC 38.6 H* RBC 7.40 H MCV 61 L MCH 18.5 L MCHC 30.4 L RDW 23.3 H Seg Neuts % (Manual) 87 H Lymphocytes % (Manual) 6 L Monocytes % (Manual) 1 L Abs Neuts (Manual) 35.1 H Absolute Eos (Manual) 0.8 H Chloride 109 H Est GFR (Non-Af Amer) 59 L Glucose 53 L Alkaline Phosphatase 184 H Creatine Kinase < 20 L - EKG Interpretation by Me Additional EKG results interpreted by me: 10/20/17 04:07 No significant changes from previous on file and on serial EKGs while in emergency department during the stay (DORY MCCALL) Discharge <OTIS SAUCEDA - Last Filed: 10/20/17 03:24> <DORY MCCALL - Last Filed: 10/20/17 04:09> - Discharge Clinical Impression: Chest pain Qualifiers: Chest pain type: unspecified Qualified Code(s): R07.9 - Chest pain, unspecified Condition: Stable Disposition: HOME, SELF-CARE Additional Instructions: Please follow-up with Dr. Medina within the next 3-5 days and follow up with your Primary care provider regarding this visit. Return to the emergency department if you have any new or worsening symptoms. Referrals: SOFI GUERRIER MD [Primary Care Provider] - Follow up in 3-5 days (Dr. Medina) Magdielibe Attestation: 10/20/17 04:09 I personally performed the services described documentation, reviewed and edited the documentation which was dictated to describe my presence, and it accurately records my words and actions. (DORY MCCALL) Scribe Documentation - Scribe Written by Batool:: Batool Valdivia, 10/20/2017 02:13 acting as scribe for :: Stefany <OTIS SAUCEDA - Last Filed: 10/20/17 03:24>
[2017-10-20 08:10] VITALS: BP 168/79
--- NOTE | 2017-10-20 08:14 | EKG REPORT ---
SEVERITY:- ABNORMAL ECG - SINUS RHYTHM CONSIDER ANTEROSEPTAL INFARCT : Confirmed by: Adam Bah MD 20-Oct-2017 08:13:27
--- NOTE | 2017-10-20 08:14 | EKG REPORT ---
SEVERITY:- ABNORMAL ECG - SINUS RHYTHM CONSIDER ANTEROSEPTAL INFARCT BORDERLINE PROLONGED QT INTERVAL : Confirmed by: Adam Bah MD 20-Oct-2017 08:13:20
== END 2017-10-20 09:05 | disposition home or self-care (01) ==
LOC: ER 21:09
DX: R07.9 Chest pain, unspecified (principal); R42 Dizziness and giddiness; D72.829 Elevated white blood cell count, unspecified; I10 Essential (primary) hypertension; I25.10 Atherosclerotic heart disease of native coronary artery without angina pectoris; I25.2 Old myocardial infarction; E11.9 Type 2 diabetes mellitus without complications; Z95.5 Presence of coronary angioplasty implant and graft; Z86.73 Personal history of transient ischemic attack (TIA), and cerebral infarction without residual deficits; Z79.02 Long term (current) use of antithrombotics/antiplatelets; Z88.5 Allergy status to narcotic agent; Z86.711 Personal history of pulmonary embolism; Z85.828 Personal history of other malignant neoplasm of skin
CPT/HCPCS: 36415; 71045; 80053; 82550; 82553; 84484; 85025; 93005; 93010; 99285

== ENCOUNTER 2017-10-29 11:11 | Inpatient (IN) | payer MEDICARE, OTHER ==
[2017-10-29] MEDS ORDERED: ONDANSETRON 4 MG TAB.RAPDIS PO ONE ×2 (11:35→12:56)
--- NOTE | 2017-10-29 11:38 | ER Document Report ---
ED Medical Screen (RME) - General Chief Complaint: Lower Abdominal Pain Stated Complaint: ABDOMINAL PAIN Time Seen by Provider: 10/29/17 11:35 Notes: Patient says that she feels like she has a UTI. Since yesterday, she had a lower midline abdominal discomfort and burning with urination. She has had previous UTIs with similar symptoms. She noted a fever of 100 this morning. She is vomited once. No diarrhea. No upper abdominal tenderness or pain. No chest pains. No URI or cough or chest congestion or shortness of breath. Hx hysterectomy, cholecystectomy, IDDM, [place] in July,. CHF. Hypertension. High cholesterol. TRAVEL OUTSIDE OF THE [place] IN LAST 30 DAYS: No - Related Data Allergies/Adverse Reactions: morphine Allergy (Verified 10/29/17 11:11) Past Medical History - Social History Chew tobacco use (# tins/day): No Drug Abuse: None - Past Medical History Cardiac Medical History: Reports: Hx Congestive Heart Failure - Diastolic, Hx Heart Attack - EKG suggests probable prior infarction, Hx Hypercholesterolemia, Hx Hypertension, Hx Pulmonary Embolism - Distant history Pulmonary Medical History: Denies: Hx Asthma, Hx COPD, Hx Sleep Apnea Neurological Medical History: Denies: Hx Seizures Endocrine Medical History: Reports: Hx Diabetes Mellitus Type 1, Hx Diabetes Mellitus Type 2. Denies: Hx Hyperthyroidism, Hx Hypothyroidism Renal/ Medical History: Denies: Hx End Stage Renal Disease, Hx Peritoneal Dialysis Malignancy Medical History: Reports: Hx Skin Cancer - Excised from her nose. GI Medical History: Reports: Hx Gastroesophageal Reflux Disease. Denies: Hx Cirrhosis, Hx Hepatitis Musculoskeltal Medical History: Reports Hx Arthritis, Reports Hx Musculoskeletal Deformity Skin Medical History: Denies Hx Eczema, Denies Hx Psoriasis Psychiatric Medical History: Reports: Hx Anxiety, Hx Depression Infectious Medical History: Reports: Hx MRSA - Quite distant history. Denies: Hx C-Diff, Hx Hepatitis Past Surgical History: Reports: Hx Abdominal Surgery, Hx Appendectomy, Hx Cholecystectomy, Hx Hysterectomy, Hx Tonsillectomy, Other - Cardiac loop recorder, bilateral cataract surgery - Immunizations Hx Diphtheria, Pertussis, Tetanus Vaccination: No History of Influenza Vaccine for 05/2017 - 10/2017 Season: Yes Influenza Administration Date for 05/2017 - 10/2017 Season: 05/29/17 Physical Exam - Vital signs Vitals: Temp Pulse Resp BP Pulse Ox 99.1 F 91 16 125/53 L 92 10/29/17 11:17 10/29/17 11:17 10/29/17 11:17 10/29/17 11:17 10/29/17 11:17 Course - Vital Signs Vital signs: Temp Pulse Resp BP Pulse Ox 99.1 F 91 16 125/53 L 92 10/29/17 11:17 10/29/17 11:17 10/29/17 11:17 10/29/17 11:17 10/29/17 11:17
[2017-10-29 12:31] LABS: HEMATOCRIT 49.2 % (36.0-47.0); HEMOGLOBIN 14.8 g/dL (12.0-15.5); MEAN CORPUSCULAR HEMOGLOBIN 18.4 pg (27.0-33.4); MEAN CORPUSCULAR VOLUME 61 fl (80-97); PLATELET COUNT 344 10^3/uL (150-450); RED BLOOD COUNT 8.03 10^6/uL (3.72-5.28); RED CELL DISTRIBUTION WIDTH 23.7 % (11.5-14.0)
[2017-10-29 12:32] LABS: APPEARANCE,URINE CLOUDY; BILIRUBIN,URINE NEGATIVE (NEGATIVE); COLOR,URINE DARK YELLOW; GLUCOSE, URINE 50 mg/dL (NEGATIVE); KETONES,URINE NEGATIVE (NEGATIVE); LEUKOCYTE ESTERASE,URINE LARGE (NEGATIVE); NITRITE,URINE POSITIVE (NEGATIVE); PROTEIN,URINE 30 mg/dL (NEGATIVE); URINE SPECIFIC GRAVITY 1.012
[2017-10-29 12:44] LABS: ALANINE AMINOTRANSFERASE 25 U/L (9-52); ALBUMIN 4.5 g/dL (3.5-5.0); ALKALINE PHOSPHATASE 200 U/L (38-126); ANION GAP 14 (5-19); ASPARTATE AMINO TRANSFERASE 21 U/L (14-36); BILIRUBIN,DIRECT 0.3 mg/dL (0.0-0.4); BLOOD UREA NITROGEN 19 mg/dL (7-20); CALCIUM 10.4 mg/dL (8.4-10.2); CARBON DIOXIDE 28 mmol/L (22-30); CHLORIDE 101 mmol/L (98-107); GLUCOSE 181 mg/dL (75-110); LIPASE 117.2 U/L (23-300); POTASSIUM 4.8 mmol/L (3.6-5.0); SODIUM 143.3 mmol/L (137-145); TOTAL PROTEIN 8.1 g/dL (6.3-8.2)
[2017-10-29 12:53] LABS: ABSOLUTE LYMPHOCYTES# (MANUAL) 1.2 10^3/uL (0.5-4.7); ABSOLUTE MONOCYTES # (MANUAL) 1.5 10^3/uL (0.1-1.4); ABSOLUTE NEUTROPHILS# (MANUAL) 35.2 10^3/uL (1.7-8.2); BAND NEUTROPHILS % (MANUAL) 8 % (3-5); BASOPHILS % (MANUAL) 2 % (0-2); EOSINOPHILS % (MANUAL) 0 % (0-6); LYMPHOCYTES % (MANUAL) 3 % (13-45); MONOCYTES % (MANUAL) 4 % (3-13); SEGMENTED NEUTROPHILS % (MAN) 83 % (42-78); TOTAL CELLS COUNTED 100
[2017-10-29 12:55] LABS: ANISOCYTOSIS 2+; POLYCHROMASIA SLIGHT
[2017-10-29 12:56] LABS: HYPOCHROMASIA 2+; OVALOCYTES 1+; PLATELET COMMENT ADEQUATE; PLATELET GIANT PRESENT; POIKILOCYTOSIS 2+; TARGET CELLS SLIGHT; TEAR DROP CELLS SLIGHT
[2017-10-29] MEDS ORDERED: CIPROFLOXACIN HCL 500 MG TABLET PO ONE (12:56)
[2017-10-29] MEDS ORDERED: HYDROCODONE/ACETAMINOPHEN 5-325 MG TABLET PO ONE (12:56)
[2017-10-29 12:59] LABS: WHITE BLOOD COUNT 38.7 10^3/uL (4.0-10.5)
--- NOTE | 2017-10-29 12:59 | ER Document Report ---
ED General - General Chief Complaint: Lower Abdominal Pain Stated Complaint: ABDOMINAL PAIN Time Seen by Provider: 10/29/17 11:35 Mode of Arrival: Ambulatory Information source: Patient Notes: 82-year-old female presents with complaints of flank pain urinary frequency burning upon urination for the past week. Patient denies any diarrhea admits to fevers chills nausea vomiting TRAVEL OUTSIDE OF THE [place] IN LAST 30 DAYS: No - HPI Onset: Last week Onset/Duration: Persistent, Worse Quality of pain: Achy Severity: Mild Pain Level: 1 Associated symptoms: Chills, Fever, Nausea, Vomiting Exacerbated by: Other - Urination Relieved by: Denies Similar symptoms previously: No Recently seen / treated by doctor: No - Related Data Allergies/Adverse Reactions: morphine Allergy (Verified 10/29/17 11:11) Past Medical History - Social History Smoking Status: Never Smoker Cigarette use (# per day): No Chew tobacco use (# tins/day): No Drug Abuse: None Family History: CAD, COPD, DM, Hyperlipidemia, Hypertension, Malignancy - Father with lung cancer, Other Patient has suicidal ideation: No Patient has homicidal ideation: No - Past Medical History Cardiac Medical History: Reports: Hx Congestive Heart Failure - Diastolic, Hx Heart Attack - EKG suggests probable prior infarction, Hx Hypercholesterolemia, Hx Hypertension, Hx Pulmonary Embolism - Distant history Pulmonary Medical History: Denies: Hx Asthma, Hx COPD, Hx Sleep Apnea Neurological Medical History: Denies: Hx Seizures Endocrine Medical History: Reports: Hx Diabetes Mellitus Type 1, Hx Diabetes Mellitus Type 2. Denies: Hx Hyperthyroidism, Hx Hypothyroidism Renal/ Medical History: Denies: Hx End Stage Renal Disease, Hx Peritoneal Dialysis Malignancy Medical History: Reports: Hx Skin Cancer - Excised from her nose. GI Medical History: Reports: Hx Gastroesophageal Reflux Disease. Denies: Hx Cirrhosis, Hx Hepatitis Musculoskeltal Medical History: Reports Hx Arthritis, Reports Hx Musculoskeletal Deformity Skin Medical History: Denies Hx Eczema, Denies Hx Psoriasis Psychiatric Medical History: Reports: Hx Anxiety, Hx Depression Infectious Medical History: Reports: Hx MRSA - Quite distant history. Denies: Hx C-Diff, Hx Hepatitis Past Surgical History: Reports: Hx Abdominal Surgery, Hx Appendectomy, Hx Cholecystectomy, Hx Hysterectomy, Hx Tonsillectomy, Other - Cardiac loop recorder, bilateral cataract surgery - Immunizations Hx Diphtheria, Pertussis, Tetanus Vaccination: No Hx Pneumococcal Vaccination: 04/29/13 Review of Systems - Review of Systems Notes: REVIEW OF SYSTEMS: CONSTITUTIONAL : Admits to fevers and chills EENT: Denies eye, ear, throat, or mouth pain or symptoms. Denies nasal or sinus congestion or discharge. Denies throat, tongue, or mouth swelling or difficulty swallowing. CARDIOVASCULAR: Denies chest pain. Denies palpitations or racing or irregular heart beat. Denies ankle edema. RESPIRATORY: Denies cough, cold, or chest congestion. Denies shortness of breath, difficulty breathing, or wheezing. GASTROINTESTINAL: Admits to suprapubic bilateral flank pain GENITOURINARY: Admits to burning upon urination FEMALE GENITOURINARY: Denies vaginal bleeding, heavy or abnormal periods, irregular periods. Denies vaginal discharge or odor. MUSCULOSKELETAL: Denies back or neck pain or stiffness. Denies joint pain or swelling. SKIN: Denies rash, lesions or sores. HEMATOLOGIC : Denies easy bruising or bleeding. LYMPHATIC: Denies swollen, enlarged glands. NEUROLOGICAL: Denies confusion or altered mental status. Denies passing out or loss of consciousness. Denies dizziness or lightheadedness. Denies headache. Denies weakness or paralysis or loss of use of either side. Denies problems with gait or speech. Denies sensory loss, numbness, or tingling. Denies seizures. PSYCHIATRIC: Denies anxiety or stress. Denies depression, suicidal ideation, or homicidal ideation. ALL OTHER SYSTEMS REVIEWED AND NEGATIVE. PHYSICAL EXAMINATION: GENERAL: Well-appearing, well-nourished and in no acute distress. HEAD: Atraumatic, normocephalic. EYES: Pupils equal round and reactive to light, extraocular movements intact, conjunctiva are normal. ENT: Nares patent, oropharynx clear without exudates. Moist mucous membranes. NECK: Normal range of motion, supple without lymphadenopathy LUNGS: Breath sounds clear to auscultation bilaterally and equal. No wheezes rales or rhonchi. HEART: Regular rate and rhythm without murmurs ABDOMEN: Soft, tenderness in suprapubic region bilateral CVA tenderness Female : deferred Musculoskeletal: Normal range of motion, no pitting or edema. No cyanosis. NEUROLOGICAL: Cranial nerves grossly intact. Normal speech, normal gait. Normal sensory, motor exams PSYCH: Normal mood, normal affect. SKIN: Warm, Dry, normal turgor, no rashes or lesions noted. Dictation was performed using [employer] voice recognition software Physical Exam - Vital signs Vitals: Temp Pulse Resp BP Pulse Ox 99.1 F 91 16 125/53 L 92 10/29/17 11:17 10/29/17 11:17 10/29/17 11:17 10/29/17 11:17 10/29/17 11:17 Course - Re-evaluation Re-evalutation: 10/29/17 16:23 Patient is noted to have a white count of 38.7 with significant bandemia, she will be started on IV antibiotics fluids and will be admitted to the hospitalist service for pyelonephritis - Vital Signs Vital signs: Temp Pulse Resp BP Pulse Ox 99.1 F 91 16 125/53 L 92 10/29/17 11:17 10/29/17 11:17 10/29/17 11:17 10/29/17 11:17 10/29/17 11:17 - Laboratory Result Diagrams: 10/29/17 12:12 10/29/17 12:12 Laboratory results interpreted by me: 10/29/17 10/29/17 10/29/17 11:37 12:12 12:12 WBC 38.7 H* RBC 8.03 H Hct 49.2 H MCV 61 L MCH 18.4 L MCHC 30.0 L RDW 23.7 H Seg Neuts % (Manual) 83 H Band Neutrophils % 8 H Lymphocytes % (Manual) 3 L Abs Neuts (Manual) 35.2 H Abs Monocytes (Manual) 1.5 H Abs Basophils (Manual) 0.8 H Est GFR ( Amer) 55 L Est GFR (Non-Af Amer) 46 L Glucose 181 H Calcium 10.4 H Alkaline Phosphatase 200 H Urine Protein 30 H Urine Glucose (UA) 50 H Urine Blood SMALL H Urine Nitrite POSITIVE H Urine Urobilinogen 2.0 H Ur Leukocyte Esterase LARGE H - Diagnostic Test Radiology reviewed: Image reviewed, Reports reviewed - Ultrasound notes a cyst on the kidney otherwise no abscess Critical Care Note - Critical Care Note Total time excluding time spent on procedures (mins): 34 Comments: 34 minutes of critical care time spent in direct contact evaluating and reevaluating the patient, treating symptoms, reviewing labs and studies and speaking with family and consultants excluding any procedures Discharge - Discharge Clinical Impression: Pyelonephritis, Bandemia Sepsis Qualifiers: Sepsis type: sepsis due to unspecified organism Qualified Code(s): A41.9 - Sepsis, unspecified organism Condition: Fair Disposition: ADMITTED INPATIENT Admitting Provider: Hospitalist Unit Admitted: Telemetry
[2017-10-29] MEDS ORDERED: ONDANSETRON HCL INJ/PF 4 MG/2 ML SDV IV ONE (13:01)
[2017-10-29] MEDS ORDERED: CIPROFLOXACIN 400 MG/D5W RTU 400 MG/200 ML RTUPB IV SCH (14:00)
[2017-10-29] MEDS ORDERED: MAG HYDROX/AL HYDROX/SIMETH SUSP 30 ML UDCUP PO PRN (14:28)
[2017-10-29] MEDS ORDERED: PROMETHAZINE HCL INJ 25 MG/1 ML VIAL IV PRN (14:28)
[2017-10-29] MEDS ORDERED: ALBUTEROL SULFATE 0.083% NEB 2.5 MG/3 ML AMPUL NEB PRN (14:28)
[2017-10-29] MEDS ORDERED: MAGNESIUM HYDROXIDE SUSP 30 ML UDCUP PO PRN (14:28)
[2017-10-29] MEDS ORDERED: DEXTROSE 50%-WATER 25 GM/50 ML DISP.SYRIN IV PRN ×2 (14:36)
[2017-10-29] MEDS ORDERED: GLUCAGON,HUMAN RECOMB 1 MG INJ IM PRN (14:36)
[2017-10-29] MEDS ORDERED: DEXTROSE 40% GEL 15 GM TUBE PO PRN ×2 (14:36)
--- NOTE | 2017-10-29 15:02 | PDOC H&P ---
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 She states that she woke this morning with a low-grade temperature of 100. She also reports 2- 3 episodes of emesis over the last few days. Evaluation in the emergency department reveals leukocytosis of 38.7 with bandemia and a positive urinalysis. At time of dictation, renal ultrasound is pending. She is provided IV fluids and has received ciprofloxacin emergency department. She is referred to the hospitalist service for admission and management of pyelonephritis. Past Medical History Cardiac Medical History: Reports: Congestive Heart Failure - Diastolic, Myocardial Infarction, Hyperlipidema, Hypertension, Pulmonary Embolism - Distant history Pulmonary Medical History: Denies: Asthma, Chronic Obstructive Pulmonary Disease (COPD), Sleep Apnea EENT Medical History: Reports: None Neurological Medical History: Reports: Ischemic CVA Denies: Seizures Endocrine Medical History: Reports: Diabetes Mellitus Type 2 - Insulin-dependent Denies: Hyperthyroidism, Hypothyroidism Renal/ Medical History: Denies: End Stage Renal Disease Malignancy Medical History: Reports: Skin Cancer - Excised from her nose. GI Medical History: Reports: Gastroesophageal Reflux Disease Denies: Cirrhosis, Hepatitis Musculoskeltal Medical History: Reports: Arthritis Skin Medical History: Denies: Eczema, Psoriasis Psychiatric Medical History: Reports: Depression Hematology: Reports: Anemia Infectious Medical History: Reports: Methicillin-Resistant Staph Aureus - Distant history Denies: Clostridium Difficile Past Surgical History Past Surgical History: Reports: Appendectomy, Cholecystectomy, Hysterectomy, Tonsillectomy, Other - Cardiac loop recorder, bilateral cataract surgery Social History Information Source: Patient Lives with: Family Smoking Status: Never Smoker Frequency of Alcohol Use: None Hx Recreational Drug Use: No Drugs: None Hx Prescription Drug Abuse: No - Advance Directive Resuscitation Status: Do Not Resuscitate Surrogate healthcare decision maker:: The patient's daughter, Jaylyn Muir, Family History Family History: CAD, COPD, DM, Hyperlipidemia, Hypertension, Malignancy - Father with lung cancer, Other Parental Family History Reviewed: Yes Children Family History Reviewed: Yes Sibling(s) Family History Reviewed.: Yes Medication/Allergy Home Medications: Buspirone HCl [Buspar 15 mg Tablet] 15 mg PO BID 08/24/17 Clopidogrel Bisulfate [Plavix 75 mg Tablet] 75 mg PO DAILY 08/24/17 Docusate Sodium [Colace 100 mg Capsule] 100 mg PO BID 08/24/17 Gabapentin [Neurontin 300 mg Capsule] 300 mg PO Q12 08/24/17 Hum Insulin NPH/Reg Insulin Hm [Novolin 70-30 100 Unit/ml Vial] 65 units SQ BID 08/24/17 Isosorbide Dinitrate [Isordil Titradose 10 mg Tablet] 30 mg PO DAILY 08/24/17 Losartan Potassium [Cozaar 50 mg Tablet] 50 mg PO DAILY 08/24/17 Metoprolol Tartrate [Lopressor 100 mg Tablet] 100 mg PO Q12 08/24/17 Nystatin 1 applic TP Q12 PRN 08/24/17 Pantoprazole Sodium [Protonix] 40 mg PO DAILY 08/24/17 Rosuvastatin Calcium [Crestor] 40 mg PO QAM 08/24/17 Sertraline HCl [Zoloft 50 mg Tablet] 50 mg PO DAILY 08/24/17 Sitagliptin Phosphate [Januvia] 100 mg PO DAILY 08/24/17 Trazodone HCl [Desyrel 50 mg Tablet] 50 mg PO HSP PRN 08/24/17 Aspirin [Ecotrin 81 mg EC Tablet] 81 mg PO DAILY tabec 08/29/17 Ondansetron [Zofran Odt 4 mg Tablet] 1 - 2 tab PO Q4H PRN #15 tab.rapdis Ciprofloxacin HCl [Cipro 500 mg Tablet] 500 mg PO BID #20 tablet 10/29/17 Hydrocodone/Acetaminophen [[place] 5-325 Tablet] 1 each PO Q6 #12 tablet 10/29/17 Metoclopramide HCl [Reglan 10 mg Tablet] 1 - 2 tab PO ASDIR PRN #25 tablet 10/29 Allergies/Adverse Reactions: morphine Allergy (Verified 10/29/17 11:11) Review of Systems Constitutional: PRESENT: fever(s). ABSENT: chills, headache(s), weight gain, weight loss Eyes: ABSENT: visual disturbances Ears: ABSENT: hearing changes Cardiovascular: ABSENT: chest pain, dyspnea on exertion, edema, orthropnea, palpitations Respiratory: ABSENT: cough, hemoptysis Gastrointestinal: PRESENT: abdominal pain - CVA tenderness, nausea, vomiting. ABSENT: constipation, diarrhea, hematemesis, hematochezia Genitourinary: PRESENT: difficulty urinating, dysuria. ABSENT: hematuria Musculoskeletal: ABSENT: joint swelling Integumentary: ABSENT: rash, wounds Neurological: ABSENT: abnormal gait, abnormal speech, confusion, dizziness, focal weakness, syncope Psychiatric: ABSENT: anxiety, depression, homidical ideation, suicidal ideation Endocrine: ABSENT: cold intolerance, heat intolerance, polydipsia, polyuria Hematologic/Lymphatic: ABSENT: easy bleeding, easy bruising Physical Exam Vital Signs: Temp Pulse Resp BP Pulse Ox 99.1 F 91 16 125/53 L 92 10/29/17 11:17 10/29/17 11:17 10/29/17 11:17 10/29/17 11:17 10/29/17 11:17 General appearance: PRESENT: no acute distress, obese, well-developed, well- nourished Head exam: PRESENT: atraumatic, normocephalic Eye exam: PRESENT: conjunctiva pink, EOMI, PERRLA. ABSENT: scleral icterus Ear exam: PRESENT: normal external ear exam Mouth exam: PRESENT: moist, tongue midline Neck exam: ABSENT: carotid bruit, JVD, lymphadenopathy, thyromegaly Respiratory exam: PRESENT: clear to auscultation carmen, symmetrical, unlabored. ABSENT: rales, rhonchi, wheezes Cardiovascular exam: PRESENT: RRR, +S1, +S2. ABSENT: diastolic murmur, rubs, systolic murmur Pulses: PRESENT: normal dorsalis pedis pul Vascular exam: PRESENT: normal capillary refill GI/Abdominal exam: PRESENT: normal bowel sounds, soft. ABSENT: distended, guarding, mass, organolmegaly, rebound, tenderness Rectal exam: PRESENT: deferred Extremities exam: PRESENT: full ROM. ABSENT: calf tenderness, clubbing, pedal edema Neurological exam: PRESENT: alert, awake, oriented to person, oriented to place , oriented to time, oriented to situation, CN II-XII grossly intact. ABSENT: motor sensory deficit Psychiatric exam: PRESENT: appropriate affect, normal mood. ABSENT: homicidal ideation, suicidal ideation Skin exam: PRESENT: dry, intact, warm. ABSENT: cyanosis, rash Assessment & Plan - Diagnosis (1) Pyelonephritis Is this a current diagnosis for this admission?: Yes Plan: The patient is admitted with a positive urinalysis and white blood cell count of 38. She has had a 3 day history of urinary urgency, frequency, dysuria, low- grade fever, nausea and vomiting. Blood and urine cultures are pending Renal ultrasound is pending The patient is admitted to the medical floor. She is empirically placed on IV ciprofloxacin; will adjust antibiotics as cultures result. She will be started on gentle IV maintenance fluids. She will be provided antiemetics and pain medications for symptom control. (2) Bandemia Is this a current diagnosis for this admission?: Yes Plan: Secondary to pyelonephritis. Cultures and antibiotics as above. We will monitor. (3) Nausea and vomiting Qualifiers: Vomiting type: unspecified Is this a current diagnosis for this admission?: Yes Plan: Secondary to acute illness. Zofran as needed for nausea. Phenergan available for unresolved nausea and vomiting. (4) Anxiety and depression Is this a current diagnosis for this admission?: Yes Plan: We will continue home medications once reconciled by pharmacy. We will continue home dose BuSpar twice daily for anxiety. (5) Chronic diastolic CHF (congestive heart failure) Is this a current diagnosis for this admission?: Yes Plan: Echocardiogram from July 2017 demonstrates moderate diastolic dysfunction with preserved ejection fraction. The patient appears to be euvolemic today. She is placed on a cardiac diet. Will obtain daily weights and monitor closely for evidence of volume overload. (6) Diabetes Qualifiers: Diabetes mellitus type: type 1 Is this a current diagnosis for this admission?: Yes Plan: The patient was placed on a consistent carb diet. Accu-checks before meals and at bedtime with Humalog for sliding scale coverage. (7) Essential hypertension Is this a current diagnosis for this admission?: Yes Plan: The patient is placed on a cardiac diet. We will continue the patient's home medications once reconciled by pharmacy. (8) GERD (gastroesophageal reflux disease) Qualifiers: Esophagitis presence: without esophagitis Qualified Code(s): K21.9 - Gastro -esophageal reflux disease without esophagitis Is this a current diagnosis for this admission?: Yes Plan: PPI (9) Obesity (BMI 30.0-34.9) Is this a current diagnosis for this admission?: Yes Plan: Dietary discretion is advised. If the patient is admitted for a prolonged stay, he would benefit from meeting with our registered dietitian. (10) Hyperlipidemia Qualifiers: Hyperlipidemia type: unspecified Qualified Code(s): E78.5 - Hyperlipidemia , unspecified Is this a current diagnosis for this admission?: Yes Plan: Continue statin therapy. - Time Time Spent: 50 to 70 Minutes Medications reviewed and adjusted accordingly: Yes - Inpatient Certification Based on my medical assessment, after consideration of the patient's comorbidities, presenting symptoms, or acuity I expect that the services needed warrant INPATIENT care.: Yes I certify that my determination is in accordance with my understanding of Medicare's requirements for reasonable and necessary INPATIENT services [42 CFR 412.3e].: Yes Medical Necessity: Failure to Improve With Outpatient Therapy, Need For IV Fluids, Need for IV Antibiotics
--- NOTE | 2017-10-29 15:18 | RADIOLOGY REPORT (SQ) ---
EXAM DESCRIPTION: U/S RETROPERITONEAL LTD COMPLETED DATE/TIME: 10/29/2017 2:08 pm REASON FOR STUDY: pyelo COMPARISON: None. TECHNIQUE: Dynamic and static grayscale images acquired of the kidneys and bladder and recorded on P ACS. Additional selected color Doppler and spectral images recorded. LIMITATIONS: None. FINDINGS: RIGHT KIDNEY: Normal size. Normal echogenicity. There is a 3.2 x 3.5 x 3.0 cm simple appearing cyst in the superior pole. No solid masses identified. No hydronephrosis. No calcifica tions. LEFT KIDNEY: Normal size. Normal echogenicity. No solid or suspicious masses. No hydronephrosi s. No calcifications. BLADDER: No masses. OTHER FINDINGS: No other significant finding. IMPRESSION: The 3.5 cm simple appearing cyst in the superior pole of the right kidney, otherwise unr emarkable exam. TECHNICAL DOCUMENTATION: JOB ID: [id number] [employer]- All Rights Reserved Reading location - IP/workstation name: [email or web address]
[2017-10-29] MEDS: NORMAL SALINE 1000 ML 1,000 ML IV PRN (17:15)
[2017-10-29] MEDS: BUSPIRONE HCL 10 MG TABLET PO SCH (17:16)
[2017-10-29] MEDS ORDERED: RINGERS SOLUTION,LACTATED 500 ML IV PRN (18:23)
[2017-10-29] MEDS ORDERED: PIPERACILLIN/TAZOBACTAM 3.375 GM VIAL IV SCH (18:30)
[2017-10-29] MEDS ORDERED: DEXTROSE 5%-WATER 250 ML with NOREPINEPHRINE BITARTRATE 4 MG IV PRN ×2 (19:21)
[2017-10-29] MEDS ORDERED: NORMAL SALINE 1000 ML 2,000 ML IV ONE (19:21)
--- NOTE | 2017-10-29 20:21 | RADIOLOGY REPORT (SQ) ---
EXAM DESCRIPTION: CHEST PA/LAT COMPLETED DATE/TIME: 10/29/2017 8:12 pm REASON FOR STUDY: hypoxic COMPARISON: 10/19/2017 EXAM PARAMETERS: NUMBER OF VIEWS: two views TECHNIQUE: Digital Frontal and Lateral radiographic views of the chest acquired. RADIATION DOSE: NA LIMITATIONS: none FINDINGS: LUNGS AND PLEURA: No opacities, masses or pneumothorax. No pleural effusion. MEDIASTINUM AND HILAR STRUCTURES: No masses or contour abnormalities. HEART AND VASCULAR STRUCTURES: Heart normal size. No evidence for failure. BONES: No acute findings. HARDWARE: None in the chest. OTHER: No other significant finding. IMPRESSION: No evidence of acute cardiopulmonary abnormality. TECHNICAL DOCUMENTATION: JOB ID: [id number] [employer]- All Rights Reserved Reading location - IP/workstation name: [email or web address]
[2017-10-29] MEDS: PIPERACILLIN SODIUM/TAZOBACTAM 3.375 GM in NORMAL SALINE 100 ML IV SCH (20:22)
[2017-10-29] MEDS: FAMOTIDINE 20 MG TABLET PO SCH (21:50)
[2017-10-29] MEDS: ATORVASTATIN CALCIUM 80 MG TABLET PO SCH (21:50)
[2017-10-29] MEDS: HEPARIN SOD (PORCINE) 5,000 UNIT/ML 1 ML SYRINGE SUBCUT SCH (21:53)
[2017-10-30] MEDS: ACETAMINOPHEN 325 MG TABLET PO PRN ×2 (01:42→17:42)
[2017-10-30] MEDS: OXYCODONE HCL IR 5 MG TABLET PO PRN ×2 (02:24→21:52)
[2017-10-30] MEDS ORDERED: PIPERACILLIN/TAZOBACTAM 3.375 GM VIAL IV ONE (02:40)
[2017-10-30] MEDS: PIPERACILLIN SODIUM/TAZOBACTAM 3.375 GM in NORMAL SALINE 100 ML IV SCH (02:50)
[2017-10-30] MEDS: HEPARIN SOD (PORCINE) 5,000 UNIT/ML 1 ML SYRINGE SUBCUT SCH (06:03)
[2017-10-30 06:09] LABS: HEMATOCRIT 41.3 % (36.0-47.0); MEAN CORPUSCULAR HEMOGLOBIN 18.2 pg (27.0-33.4); MEAN CORPUSCULAR HGB CONC 30.1 g/dL (32.0-36.0); MEAN CORPUSCULAR VOLUME 61 fl (80-97); PLATELET COUNT 243 10^3/uL (150-450); RED BLOOD COUNT 6.83 10^6/uL (3.72-5.28); RED CELL DISTRIBUTION WIDTH 23.7 % (11.5-14.0)
[2017-10-30 06:17] LABS: ANION GAP 9 (5-19); BLOOD UREA NITROGEN 19 mg/dL (7-20); CARBON DIOXIDE 26 mmol/L (22-30); CHLORIDE 105 mmol/L (98-107); GLUCOSE 192 mg/dL (75-110); POTASSIUM 4.2 mmol/L (3.6-5.0); SODIUM 139.9 mmol/L (137-145)
[2017-10-30] MEDS: INSULIN LISPRO 100 UNIT/ML 3 ML VIAL SUBCUT PRN (07:27)
[2017-10-30 07:52] LABS: ABSOLUTE LYMPHOCYTES# (MANUAL) 1.6 10^3/uL (0.5-4.7); ABSOLUTE MONOCYTES # (MANUAL) 1.6 10^3/uL (0.1-1.4); ABSOLUTE NEUTROPHILS# (MANUAL) 29.2 10^3/uL (1.7-8.2); BAND NEUTROPHILS % (MANUAL) 4 % (3-5); BASOPHILS % (MANUAL) 0 % (0-2); EOSINOPHILS % (MANUAL) 1 % (0-6); LYMPHOCYTES % (MANUAL) 5 % (13-45); MONOCYTES % (MANUAL) 5 % (3-13); SEGMENTED NEUTROPHILS % (MAN) 85 % (42-78); TOTAL CELLS COUNTED 100
[2017-10-30 07:54] LABS: ANISOCYTOSIS 2+; HYPOCHROMASIA 1+; OVALOCYTES 1+; POIKILOCYTOSIS 1+; POLYCHROMASIA SLIGHT; TEAR DROP CELLS SLIGHT
[2017-10-30 07:55] LABS: HEMOGLOBIN 12.4 g/dL (12.0-15.5); PLATELET COMMENT ADEQUATE; PLATELET GIANT PRESENT
[2017-10-30 07:57] LABS: WHITE BLOOD COUNT 32.8 10^3/uL (4.0-10.5)
[2017-10-30] MEDS ORDERED: (PENDING PHARMACY ID) (Rosuvastatin Calcium [Crestor] 40 MG) PO SCH (08:00)
[2017-10-30] MEDS ORDERED: NITROGLYCERIN 0.4 MG/TAB 25 TAB/BOTTLE ONE (09:29)
[2017-10-30] MEDS: BUSPIRONE HCL 10 MG TABLET PO SCH ×2 (09:39→17:19)
[2017-10-30] MEDS: FAMOTIDINE 20 MG TABLET PO SCH ×2 (09:39→21:52)
[2017-10-30] MEDS ORDERED: HYDROMORPHONE HCL INJ/PF 2 MG/ML AMPULE ONE (09:52)
[2017-10-30] MEDS ORDERED: TRAZODONE HCL 50 MG TABLET PO PRN (09:52)
[2017-10-30] MEDS ORDERED: DOCUSATE SODIUM 100 MG CAPSULE PO SCH (10:00)
[2017-10-30] MEDS ORDERED: METOPROLOL TARTRATE 100 MG TABLET PO SCH ×2 (10:00→10:09)
[2017-10-30] MEDS ORDERED: ISOSORBIDE DINITRATE 10 MG TABLET PO SCH (10:00)
[2017-10-30] MEDS ORDERED: ASPIRIN 81 MG TABLET, ENT COATED PO SCH (10:00)
[2017-10-30] MEDS ORDERED: HEPARIN SODIUM,PORCINE/D5W 25,000 UNIT/250 ML RTUINJ IV PRN (10:06)
--- NOTE | 2017-10-30 10:15 | PDOC PROGRESS REPORT ---
Subjective Progress Note for:: 10/30/17 Subjective:: Patient is complaining of crushing chest pain sever pressure like 5/10 Pain started 45 mn ago associated with SOB Ekg performed at bedside showing 1mm ST elevation V2-3 no reciprocal changes Reason For Visit: PYELONEPHRITIS, BANDEMIA Physical Exam Vital Signs: Temp Pulse Resp BP Pulse Ox 98.2 F 83 18 125/57 L 98 10/30/17 08:20 10/30/17 08:20 10/30/17 08:20 10/30/17 08:20 10/30/17 08:20 Intake & Output 10/29/17 10/30/17 10/31/17 00:59 00:59 00:59 Weight 95.7 kg General appearance: PRESENT: cooperative, mild distress, obese - anxious Head exam: PRESENT: atraumatic, normocephalic Eye exam: PRESENT: conjunctiva pink, EOMI, PERRLA. ABSENT: scleral icterus Neck exam: ABSENT: carotid bruit, JVD, lymphadenopathy, thyromegaly Respiratory exam: PRESENT: clear to auscultation carmen. ABSENT: rales, rhonchi, wheezes Pulses: PRESENT: normal carotid pulses GI/Abdominal exam: PRESENT: normal bowel sounds, soft. ABSENT: distended, guarding, mass, organolmegaly, rebound, tenderness Extremities exam: PRESENT: full ROM. ABSENT: calf tenderness, clubbing, pedal edema Neurological exam: PRESENT: alert, awake, oriented to person, oriented to place , oriented to time, oriented to situation, CN II-XII grossly intact. ABSENT: motor sensory deficit Psychiatric exam: PRESENT: anxious Results Laboratory Results: 10/30/17 05:50 10/30/17 05:50 10/30/17 10/30/17 05:50 05:50 WBC 32.8 H* RBC 6.83 H Hgb 12.4 D Hct 41.3 MCV 61 L MCH 18.2 L MCHC 30.1 L RDW 23.7 H Plt Count 243 Seg Neutrophils % Not Reportable Lymphocytes % Not Reportable Monocytes % Not Reportable Eosinophils % Not Reportable Basophils % Not Reportable Absolute Neutrophils Not Reportable Absolute Lymphocytes Not Reportable Absolute Monocytes Not Reportable Absolute Eosinophils Not Reportable Absolute Basophils Not Reportable Sodium 139.9 Potassium 4.2 Chloride 105 Carbon Dioxide 26 Anion Gap 9 BUN 19 Creatinine 1.14 Est GFR ( Amer) 55 L Est GFR (Non-Af Amer) 46 L Glucose 192 H Calcium 9.0 Impressions: Chest X-Ray 10/29/17 00:00 IMPRESSION: No evidence of acute cardiopulmonary abnormality. Renal Ultrasound 10/29/17 13:02 IMPRESSION: The 3.5 cm simple appearing cyst in the superior pole of the right kidney, otherwise unremarkable exam. Assessment & Plan - Diagnosis (1) Pyelonephritis Is this a current diagnosis for this admission?: Yes Plan: leukocytosis over 30.000 US kidneys no hydro EKG pronged QT change antibiotics to meropenem (3) CAD (coronary artery disease) Qualifiers: Coronary Disease-Associated Artery/Lesion type: [place] artery [place] vs. transplanted heart: [place] heart Associated angina: without angina Qualified Code(s): I25.10 - Atherosclerotic heart disease of [place] coronary artery without angina pectoris Is this a current diagnosis for this admission?: Yes Plan: hx of acute non stemi 07/2017 patient did not have cardiac cath and was treated medically (4) Chest pain Qualifiers: Chest pain type: unspecified Qualified Code(s): R07.9 - Chest pain, unspecified Is this a current diagnosis for this admission?: Yes Plan: ST elevtion V2-3 treat as acute NE initiate Heparin pain is now 1/[address] 1/2 " nitropaste on ant chest transfer to ICU (5) Obesity (BMI 30.0-34.9) Is this a current diagnosis for this admission?: Yes - Time Time Spent with patient: 35 or more minutes
[2017-10-30] MEDS ORDERED: MEROPENEM 1 GM in NORMAL SALINE 50 ML IV SCH (10:30)
[2017-10-30 10:54] LABS: HEMATOCRIT 41.4 % (36.0-47.0); HEMOGLOBIN 12.3 g/dL (12.0-15.5); MEAN CORPUSCULAR HGB CONC 29.8 g/dL (32.0-36.0); MEAN CORPUSCULAR VOLUME 61 fl (80-97); PLATELET COUNT 238 10^3/uL (150-450); RED BLOOD COUNT 6.83 10^6/uL (3.72-5.28)
[2017-10-30] MEDS ORDERED: ASPIRIN 325 MG TABLET, ENT COATED PO ONE (11:00)
[2017-10-30] MEDS ORDERED: LANSOPRAZOLE 30 MG TAB.RAP.DR PO ONE (11:00)
[2017-10-30] MEDS ORDERED: NITROGLYCERIN 2% OINTMENT 1 GM PACKET TP ONE (11:00)
[2017-10-30 11:09] LABS: ABSOLUTE LYMPHOCYTES# (MANUAL) 0.7 10^3/uL (0.5-4.7); ABSOLUTE NEUTROPHILS# (MANUAL) 32.7 10^3/uL (1.7-8.2); BAND NEUTROPHILS % (MANUAL) 4 % (3-5); BASOPHILS % (MANUAL) 0 % (0-2); EOSINOPHILS % (MANUAL) 0 % (0-6); LYMPHOCYTES % (MANUAL) 2 % (13-45); MONOCYTES % (MANUAL) 3 % (3-13); SEGMENTED NEUTROPHILS % (MAN) 91 % (42-78); TOTAL CELLS COUNTED 100
[2017-10-30 11:10] LABS: POLYCHROMASIA SLIGHT
[2017-10-30 11:11] LABS: HYPOCHROMASIA 1+; OVALOCYTES SLIGHT; PLATELET COMMENT ADEQUATE; PLATELET GIANT PRESENT; POIKILOCYTOSIS 1+; TEAR DROP CELLS SLIGHT
[2017-10-30 11:13] LABS: INTERNATIONAL RATION (INR) 1.27; PROTHROMBIN TIME 16.7 SEC (11.4-15.4)
[2017-10-30 11:14] LABS: WHITE BLOOD COUNT 34.4 10^3/uL (4.0-10.5)
[2017-10-30 11:19] LABS: CREATINE KINASE MB 0.38 ng/mL (<4.55); TROPONIN I < 0.012 ng/mL
[2017-10-30] MEDS ORDERED: METOPROLOL TARTRATE 25 MG TABLET PO ONE (11:30)
[2017-10-30] MEDS ORDERED: SERTRALINE HCL 50 MG TABLET PO ONE (11:30)
[2017-10-30] MEDS ORDERED: GABAPENTIN 300 MG CAPSULE PO ONE (11:30)
[2017-10-30] MEDS ORDERED: ISOSORBIDE DINITRATE 20 MG TABLET PO ONE (11:30)
[2017-10-30 11:47] LABS: APPEARANCE,URINE SLIGHTLY-CLOUDY; BILIRUBIN,URINE NEGATIVE (NEGATIVE); COLOR,URINE YELLOW; GLUCOSE, URINE NEGATIVE (NEGATIVE); KETONES,URINE NEGATIVE (NEGATIVE); LEUKOCYTE ESTERASE,URINE SMALL (NEGATIVE); NITRITE,URINE NEGATIVE (NEGATIVE); PROTEIN,URINE NEGATIVE (NEGATIVE); URINE SPECIFIC GRAVITY 1.009; UROBILINOGEN,URINE NEGATIVE mg/dL (<2.0)
[2017-10-30] MEDS ORDERED: HEPARIN SOD (PORCINE) 1,000 UNIT/ML 10 ML VIAL ONE (11:55)
[2017-10-30] MEDS ORDERED: MEROPENEM 1 GM in NORMAL SALINE 100 ML IV ONE (12:00)
--- NOTE | 2017-10-30 15:40 | EKG REPORT ---
SEVERITY:- ABNORMAL ECG - SINUS RHYTHM CONSIDER ANTEROSEPTAL INFARCT BORDERLINE PROLONGED QT INTERVAL : Confirmed by: dAam Bah MD 30-Oct-2017 15:40:11
--- NOTE | 2017-10-30 15:40 | EKG REPORT ---
SEVERITY:- ABNORMAL ECG - SINUS RHYTHM CONSIDER ANTEROSEPTAL INFARCT BORDERLINE PROLONGED QT INTERVAL : Confirmed by: Adam Bah MD 30-Oct-2017 15:39:58
[2017-10-30] MEDS: DOCUSATE SODIUM 100 MG CAPSULE PO SCH (17:19)
[2017-10-30] MEDS: NORMAL SALINE 1000 ML 1,000 ML IV PRN (17:20)
[2017-10-30] MEDS: MEROPENEM 1 GM in NORMAL SALINE 100 ML IV SCH (21:49)
[2017-10-30] MEDS: ATORVASTATIN CALCIUM 80 MG TABLET PO SCH (21:51)
[2017-10-30] MEDS: ZOLPIDEM TARTRATE 5 MG TABLET PO PRN (21:51)
[2017-10-30] MEDS: GABAPENTIN 300 MG CAPSULE PO SCH (21:51)
[2017-10-30] MEDS: METOPROLOL TARTRATE 25 MG TABLET PO SCH (21:51)
[2017-10-31] MEDS: NITROGLYCERIN 0.4 MG/TAB 25 TAB/BOTTLE SL PRN ×2 (00:41→00:48)
[2017-10-31 01:40] LABS: CREATINE KINASE MB 0.47 ng/mL (<4.55); TROPONIN I < 0.012 ng/mL
[2017-10-31 06:12] LABS: HEMATOCRIT 43.6 % (36.0-47.0); HEMOGLOBIN 13.2 g/dL (12.0-15.5); MEAN CORPUSCULAR HEMOGLOBIN 18.5 pg (27.0-33.4); MEAN CORPUSCULAR HGB CONC 30.3 g/dL (32.0-36.0); MEAN CORPUSCULAR VOLUME 61 fl (80-97); PLATELET COUNT 275 10^3/uL (150-450); RED BLOOD COUNT 7.17 10^6/uL (3.72-5.28); RED CELL DISTRIBUTION WIDTH 23.8 % (11.5-14.0)
[2017-10-31 06:19] LABS: WHITE BLOOD COUNT 32.3 10^3/uL (4.0-10.5)
[2017-10-31] MEDS: LANSOPRAZOLE 30 MG TAB.RAP.DR PO SCH (06:19)
[2017-10-31 06:25] LABS: ANION GAP 6 (5-19); BLOOD UREA NITROGEN 13 mg/dL (7-20); CALCIUM 8.7 mg/dL (8.4-10.2); CARBON DIOXIDE 25 mmol/L (22-30); CHLORIDE 111 mmol/L (98-107); GLUCOSE 226 mg/dL (75-110); POTASSIUM 4.2 mmol/L (3.6-5.0); SODIUM 141.5 mmol/L (137-145)
[2017-10-31 06:48] LABS: AMORPHOUS SEDIMENT,URINE TRACE /HPF; APPEARANCE,URINE SLIGHTLY-CLOUDY; BILIRUBIN,URINE NEGATIVE (NEGATIVE); COLOR,URINE YELLOW; GLUCOSE, URINE 50 mg/dL (NEGATIVE); KETONES,URINE NEGATIVE (NEGATIVE); LEUKOCYTE ESTERASE,URINE LARGE (NEGATIVE); NITRITE,URINE NEGATIVE (NEGATIVE); PROTEIN,URINE NEGATIVE (NEGATIVE); URINE SPECIFIC GRAVITY 1.009; UROBILINOGEN,URINE NEGATIVE mg/dL (<2.0)
--- NOTE | 2017-10-31 09:17 | EKG REPORT ---
SEVERITY:- ABNORMAL ECG - SINUS TACHYCARDIA CONSIDER ANTEROSEPTAL INFARCT : Confirmed by: Bud Medina 31-Oct-2017 09:17:18
--- NOTE | 2017-10-31 09:17 | EKG REPORT ---
SEVERITY:- ABNORMAL ECG - SINUS RHYTHM PROBABLE INFERIOR INFARCT, AGE INDETERMINATE CONSIDER ANTEROSEPTAL INFARCT : Confirmed by: Bud Medina 31-Oct-2017 09:17:14
[2017-10-31] MEDS: ISOSORBIDE DINITRATE 20 MG TABLET PO SCH (09:25)
[2017-10-31] MEDS: CLOPIDOGREL BISULFATE 75 MG TABLET PO SCH (09:25)
[2017-10-31] MEDS: BUSPIRONE HCL 10 MG TABLET PO SCH ×2 (09:26→18:08)
[2017-10-31] MEDS: ASPIRIN 325 MG TABLET, ENT COATED PO SCH (09:27)
[2017-10-31] MEDS: DOCUSATE SODIUM 100 MG CAPSULE PO SCH ×2 (09:27→18:08)
[2017-10-31] MEDS: SERTRALINE HCL 50 MG TABLET PO SCH (09:27)
[2017-10-31] MEDS: FAMOTIDINE 20 MG TABLET PO SCH ×2 (09:27→22:07)
[2017-10-31] MEDS: GABAPENTIN 300 MG CAPSULE PO SCH ×2 (09:28→22:07)
[2017-10-31] MEDS: METOPROLOL TARTRATE 25 MG TABLET PO SCH ×2 (09:28→22:07)
[2017-10-31] MEDS: ACETAMINOPHEN 325 MG TABLET PO PRN (09:31)
[2017-10-31] MEDS: OXYCODONE HCL IR 5 MG TABLET PO PRN ×2 (09:32→15:36)
[2017-10-31] MEDS: MEROPENEM 1 GM in NORMAL SALINE 100 ML IV SCH ×2 (09:33→22:52)
[2017-10-31] MEDS ORDERED: ASPIRIN 81 MG TABLET, ENT COATED PO SCH (10:00)
[2017-10-31] MEDS: INSULIN LISPRO 100 UNIT/ML 3 ML VIAL SUBCUT PRN ×2 (11:52→22:43)
--- NOTE | 2017-10-31 12:49 | XCELERA REPORT ---
[address] [address] Transthoracic Echocardiogram Report Name: ORACIO PEDROZA Age: 82 yrs Gender: Female : 1935 Patient Status: Inpatient Patient Location: ICU^610^A Study Date: 10/31/2017 10:53 AM Height: 65 in Weight: 210 lb BSA: 2.0 m2 Procedure: A complete two-dimensional transthoracic echocardiogram was performed (2D, M-mode, spectral and color flow Doppler). The study was technically adequate with some images being suboptimal in quality. Reason For Study: chest pain Ordering Physician: ENRIQUE MORFIN Performed By: Urszula Trivedi Interpretation Summary The left ventricular ejection fraction is normal. There is moderate concentric left ventricular hypertrophy. The left ventricle is grossly normal size. Doppler measurements suggest pseudonormalized left ventricular relaxation, which is associated with grade II/IV or mild to moderate diastolic dysfunction Wall motion cannot be accurately commented on, but no definite regional wall motion abnormalities noted. The right ventricular systolic function is normal. The left atrium is mildly dilated. The right atrium is normal in size There is a trace amount of mitral regurgitation There is no mitral valve stenosis. No aortic regurgitation is present. There is no aortic valve stenosis There is no tricuspid stenosis. No tricuspid regurgitation. The aortic root is not well visualized but is probably normal size. The inferior vena cava appeared normal and decreased > 50% with respiration (RAP 5-10 mmHg) There is no pericardial effusion. MMode/2D Measurements & Calculations RVDd: 3.6 cm LVIDd: 3.4 cm FS: 31.7 % Ao root diam: 3.1 cm IVSd: 1.4 cm LVIDs: 2.3 cm EDV(Teich): 46.4 ml LVPWd: 1.2 cm ESV(Teich): 18.2 ml Ao root area: 7.8 cm2 EF(Teich): 60.8 % LA dimension: 3.7 cm Doppler Measurements & Calculations MV E max keily: MV P1/2t max keily: Ao V2 max: LV V1 max P.3 cm/sec 96.3 cm/sec 168.3 cm/sec 7.9 mmHg MV A max keily: MV P1/2t: 74.6 msec Ao max PG: LV V1 max: 151.5 cm/sec 11.3 mmHg 140.4 cm/sec MV E/A: 0.64 MVA(P1/2t): 2.9 cm2 MV dec slope: 377.8 cm/sec2 MV dec time: 0.25 sec PA V2 max: 97.7 cm/sec PA max P.8 mmHg Left Ventricle The left ventricle is grossly normal size. There is moderate concentric left ventricular hypertrophy. The left ventricular ejection fraction is normal. Doppler measurements suggest pseudonormalized left ventricular relaxation, which is associated with grade II/IV or mild to moderate diastolic dysfunction. Wall motion cannot be accurately commented on, but no definite regional wall motion abnormalities noted. Right Ventricle The right ventricle is grossly normal size. There is normal right ventricular wall thickness. The right ventricular systolic function is normal. Atria The right atrium is normal in size. The left atrium is mildly dilated. Interarterial septum not well visualized and not well dopplered. Cannot comment on ASD/PFO presence. Mitral Valve The mitral valve is grossly normal. There is no mitral valve stenosis. There is a trace amount of mitral regurgitation. Aortic Valve The aortic valve is grossly normal. There is no aortic valve stenosis. No aortic regurgitation is present. Tricuspid Valve The tricuspid valve is not well visualized, but is grossly normal. There is no tricuspid stenosis. No tricuspid regurgitation. Pulmonic Valve The pulmonic valve is not well visualized. Great Vessels The aortic root is not well visualized but is probably normal size. The inferior vena cava appeared normal and decreased > 50% with respiration (RAP 5-10 mmHg). Effusions There is no pericardial effusion. : ENRIQUE MORFIN > Bud Medina
--- NOTE | 2017-10-31 14:38 | PDOC PROGRESS REPORT ---
Subjective Progress Note for:: 10/31/17 Subjective:: The patient is an 82-year-old female with a past medical history of NV in July 2017, hypertension, hyperlipidemia, CHF, insulin-dependent diabetes mellitus, CVA who is admitted on 10/29/17 for pyelonephritis and developed acute chest pain with EKG changes on the following day. She has subsequently been transferred to the ICU, placed on a cardiac drip, serial troponins are negative. She continues to have intermittent crushing chest pain while at rest that is relieved by nitro. Cardiology has been consulted. The patient is seen on morning rounds. She is sitting upright in bed on supplemental oxygen via nasal cannula at 2 L/min eating her breakfast. She states that she is feeling better, however, did have another episode of chest pain earlier this morning that resolved with nitro SL tabs. She reports that her fever, chills, abdominal pain, flank pain, nausea and vomiting have all resolved. She states that she did have an echocardiogram following her previous NV but did not undergo stress testing or cardiac catheterization at that time. She has no new questions or concerns at this time. Reason For Visit: PYELONEPHRITIS, BANDEMIA Physical Exam Vital Signs: Temp Pulse Resp BP Pulse Ox 98.8 F 85 18 101/58 L 95 10/31/17 12:00 10/31/17 12:00 10/31/17 12:00 10/31/17 12:00 10/31/17 12:00 Intake & Output 10/30/17 10/31/17 11/01/17 06:59 06:59 06:59 Intake Total 1076 640 Output Total 3490 640 Balance -2414 0 Weight 95.7 kg 95.6 kg 95.6 kg General appearance: PRESENT: no acute distress, cooperative, obese, well- developed, well-nourished Head exam: PRESENT: atraumatic, normocephalic Eye exam: PRESENT: conjunctiva pink, EOMI, PERRLA. ABSENT: scleral icterus Ear exam: PRESENT: normal external ear exam Mouth exam: PRESENT: moist, tongue midline Neck exam: ABSENT: carotid bruit, JVD, lymphadenopathy, thyromegaly Respiratory exam: PRESENT: clear to auscultation carmen, symmetrical, unlabored. ABSENT: rales, rhonchi, wheezes Cardiovascular exam: PRESENT: RRR, +S1, +S2. ABSENT: diastolic murmur, rubs, systolic murmur, tachycardia Pulses: PRESENT: normal dorsalis pedis pul Vascular exam: PRESENT: normal capillary refill GI/Abdominal exam: PRESENT: normal bowel sounds, soft. ABSENT: distended, guarding, mass, organolmegaly, rebound, tenderness Rectal exam: PRESENT: deferred Extremities exam: PRESENT: full ROM. ABSENT: calf tenderness, clubbing, pedal edema Neurological exam: PRESENT: alert, awake, oriented to person, oriented to place , oriented to time, oriented to situation, CN II-XII grossly intact. ABSENT: motor sensory deficit Psychiatric exam: PRESENT: appropriate affect, normal mood. ABSENT: homicidal ideation, suicidal ideation Skin exam: PRESENT: dry, intact, warm. ABSENT: cyanosis, rash Results Laboratory Results: 10/31/17 06:00 10/31/17 06:00 10/31/17 10/31/17 10/31/17 06:00 06:00 06:15 WBC 32.3 H* RBC 7.17 H Hgb 13.2 Hct 43.6 MCV 61 L MCH 18.5 L MCHC 30.3 L RDW 23.8 H Plt Count 275 Sodium 141.5 Potassium 4.2 Chloride 111 H Carbon Dioxide 25 Anion Gap 6 BUN 13 Creatinine 0.80 Est GFR ( Amer) > 60 Est GFR (Non-Af Amer) > 60 Glucose 226 H Calcium 8.7 Urine Color YELLOW Urine Appearance SLIGHTLY-CLOUDY Urine pH 6.0 Ur Specific [place] 1.009 Urine Protein NEGATIVE Urine Glucose (UA) 50 H Urine Ketones NEGATIVE Urine Blood SMALL H Urine Nitrite NEGATIVE Ur Leukocyte Esterase LARGE H Urine WBC (Auto) 81 Urine RBC (Auto) 4 10/30/17 10/30/17 10/30/17 10:02 10:02 15:12 Creatine Kinase < 20 L CK-MB (CK-2) 0.38 Troponin I < 0.012 < 0.012 10/30/17 10/31/17 10/31/17 21:07 00:50 00:50 Creatine Kinase < 20 L CK-MB (CK-2) 0.47 Troponin I < 0.012 < 0.012 10/31/17 10/31/17 06:00 08:40 Creatine Kinase CK-MB (CK-2) Troponin I < 0.012 < 0.012 Impressions: Chest X-Ray 10/29/17 00:00 IMPRESSION: No evidence of acute cardiopulmonary abnormality. Renal Ultrasound 10/29/17 13:02 IMPRESSION: The 3.5 cm simple appearing cyst in the superior pole of the right kidney, otherwise unremarkable exam. Assessment & Plan - Diagnosis (1) Pyelonephritis Is this a current diagnosis for this admission?: Yes Plan: Leukocytosis remains elevated greater than 30,000. Blood culture: No growth at 24 and 48 hours Urine culture: E. coli resistant to Cipro, levofloxacin, tetracycline, and Bactrim Renal ultrasound shows a simple right renal cyst but no evidence of abscesses or hydronephrosis. The patient was upgraded to the 2 yesterday secondary to acute chest pain with limited IMCU/telemetry beds. She will be downgraded to IMCU today.. The patient was noted to have a prolonged QT interval and so was transitioned to meropenem yesterday. We will continue meropenem as the patient's WBCs remain significantly elevated. Consider de-escalation of antibiotics as blood cultures finalize. She will be started on gentle IV maintenance fluids. She will be provided antiemetics and pain medications for symptom control. (2) Chest pain Is this a current diagnosis for this admission?: Yes Plan: The patient experienced acute chest pain while at rest that resolved following sublingual nitro. EKG initially demonstrated ST elevation of V2-3 without reciprocal changes. The patient was treated as a acute NV and transferred to the ICU and placed on a heparin drip. Serial troponins have been negative Echocardiogram pending. CTA pending. Cardiology has been consulted; appreciate their evaluation recommendations. (3) Bandemia Is this a current diagnosis for this admission?: Yes Plan: Secondary to pyelonephritis. Cultures and antibiotics as above. We will monitor. (4) Nausea and vomiting Qualifiers: Vomiting type: unspecified Is this a current diagnosis for this admission?: Yes Plan: Resolved; secondary to acute illness. Zofran as needed for nausea. Phenergan available for unresolved nausea and vomiting. (5) Anxiety and depression Is this a current diagnosis for this admission?: Yes Plan: We will continue home medications: Zoloft and Buspar (6) Chronic diastolic CHF (congestive heart failure) Is this a current diagnosis for this admission?: Yes Plan: Echocardiogram from July 2017 demonstrates moderate diastolic dysfunction with preserved ejection fraction. The patient appears to be euvolemic today. Repeat echocardiogram is pending. Cardiology has been consulted secondary to acute chest pain w/ recent NV in Jul 2017; appreciate Dr. Medina's assistance. She is placed on a cardiac diet. Will obtain daily weights and monitor closely for evidence of volume overload. (7) Diabetes Qualifiers: Diabetes mellitus type: type 1 Is this a current diagnosis for this admission?: Yes Plan: The patient was placed on a consistent carb diet. Accu-checks before meals and at bedtime with Humalog for sliding scale coverage. (8) Essential hypertension Is this a current diagnosis for this admission?: Yes Plan: The patient is placed on a cardiac diet. We will continue the patient's home medications: isosorbide, metoprolol. (9) GERD (gastroesophageal reflux disease) Qualifiers: Esophagitis presence: without esophagitis Qualified Code(s): K21.9 - Gastro -esophageal reflux disease without esophagitis Is this a current diagnosis for this admission?: Yes Plan: PPI (10) Obesity (BMI 30.0-34.9) Is this a current diagnosis for this admission?: Yes Plan: Dietary discretion is advised. If the patient is admitted for a prolonged stay, he would benefit from meeting with our registered dietitian. (11) Hyperlipidemia Qualifiers: Hyperlipidemia type: unspecified Qualified Code(s): E78.5 - Hyperlipidemia , unspecified Is this a current diagnosis for this admission?: Yes Plan: Continue statin therapy. (12) CAD (coronary artery disease) Qualifiers: Coronary Disease-Associated Artery/Lesion type: [place] artery [place] vs. transplanted heart: [place] heart Associated angina: without angina Qualified Code(s): I25.10 - Atherosclerotic heart disease of [place] coronary artery without angina pectoris Is this a current diagnosis for this admission?: Yes Plan: History of acute non-STEMI 07/2017. The patient did not have a cardiac catheterization at that time and was treated medically. Continue daily aspirin, Plavix, statin therapy. Remaining plan as above. - Time Time Spent with patient: 35 or more minutes Medications reviewed and adjusted accordingly: Yes - Inpatient Certification Based on my medical assessment, after consideration of the patient's comorbidities, presenting symptoms, or acuity I expect that the services needed warrant INPATIENT care.: Yes I certify that my determination is in accordance with my understanding of Medicare's requirements for reasonable and necessary INPATIENT services [42 CFR 412.3e].: Yes Medical Necessity: Need Close Monitoring Due to Risk of Patient Decompensation, Need For Continuous Telemetry Monitoring, Need for IV Antibiotics
--- NOTE | 2017-10-31 20:16 | PDOC CONSULTATION ---
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 She states that she woke this morning with a low-grade temperature of 100. She also reports 2- 3 episodes of emesis over the last few days. Evaluation in the emergency department reveals leukocytosis of 38.7 with bandemia and a positive urinalysis. At time of dictation, renal ultrasound is pending. She is provided IV fluids and has received ciprofloxacin emergency department. She is referred to the hospitalist service for admission and management of pyelonephritis. While being monitored in the unit, patient complains of chest pain last night for which she needed to nitroglycerin sublingual for relief. Subsequent EKGs and cardiac enzymes has been negative. Patient did have a nuclear stress test in October 2016 which was negative for any significant ischemia. Past Medical History Cardiac Medical History: Reports: Congestive Heart Failure - Diastolic, Myocardial Infarction - EKG suggests probable prior infarction, Hyperlipidema, Hypertension, Pulmonary Embolism - Distant history Pulmonary Medical History: Denies: Asthma, Chronic Obstructive Pulmonary Disease (COPD), Sleep Apnea EENT Medical History: Reports: None Neurological Medical History: Reports: Ischemic CVA Denies: Seizures Endocrine Medical History: Reports: Diabetes Mellitus Type 1, Diabetes Mellitus Type 2 Denies: Hyperthyroidism, Hypothyroidism Renal/ Medical History: Denies: End Stage Renal Disease Malignancy Medical History: Reports: Skin Cancer - Excised from her nose. 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 Denies: Clostridium Difficile Past Surgical History Past Surgical History: Reports: Appendectomy, Cholecystectomy, Hysterectomy, Tonsillectomy, Other - Cardiac loop recorder, bilateral cataract surgery Social History Information Source: Patient Lives with: Family Smoking Status: Former Smoker Number of Years Smokin Last Time Smoked: 40 years ago Frequency of Alcohol Use: None Hx Recreational Drug Use: No Drugs: None Hx Prescription Drug Abuse: No - Advance Directive Resuscitation Status: Do Not Resuscitate Family History Family History: CAD, COPD, DM, Hyperlipidemia, Hypertension, Malignancy - Father with lung cancer, Other Parental Family History Reviewed: Yes Children Family History Reviewed: Yes Sibling(s) Family History Reviewed.: Yes Medication/Allergy Home Medications: Buspirone HCl [Buspar 15 mg Tablet] 15 mg PO BID 08/24/17 Clopidogrel Bisulfate [Plavix 75 mg Tablet] 75 mg PO DAILY 08/24/17 Docusate Sodium [Colace 100 mg Capsule] 100 mg PO BID 08/24/17 Gabapentin [Neurontin 300 mg Capsule] 300 mg PO Q12 08/24/17 Hum Insulin NPH/Reg Insulin Hm [Novolin 70-30 100 Unit/ml Vial] 65 units SQ BID 08/24/17 Isosorbide Dinitrate [Isordil Titradose 10 mg Tablet] 30 mg PO DAILY 08/24/17 Losartan Potassium [Cozaar 50 mg Tablet] 50 mg PO DAILY 08/24/17 Metoprolol Tartrate [Lopressor 100 mg Tablet] 100 mg PO Q12 08/24/17 Pantoprazole Sodium [Protonix] 40 mg PO DAILY 08/24/17 Rosuvastatin Calcium [Crestor] 40 mg PO QAM 08/24/17 Sertraline HCl [Zoloft 50 mg Tablet] 50 mg PO DAILY 08/24/17 Sitagliptin Phosphate [Januvia] 100 mg PO DAILY 08/24/17 Trazodone HCl [Desyrel 50 mg Tablet] 50 mg PO HSP PRN 08/24/17 Aspirin [Ecotrin 81 mg EC Tablet] 81 mg PO DAILY tabec 08/29/17 Allergies/Adverse Reactions: morphine Allergy (Verified 10/29/17 11:11) Review of Systems Review of Systems: Please see history of present illness and past medical history as wall. Constitutional: No fever or chills reported. Head : No recent chronic headaches, recent head injury. Eyes: No recent eye pain, diplopia, redness, discharge, acute visual changes. Ears: No recent chronic ear pain, acute hearing loss, ear discharge. Oral cavity: No recent ulcerations, bleeding, oral cavity discomfort. Neck: No recent acute neck pain reported. Hematologic: No recent easy bruising or bleeding or hematologic malignancy reported. Lymphatic: No recent lymphatic malignancy, chronic lymphadenopathy reported yet Cardiovascular system review: See history of present illness. Respiratory system review: No recent chronic cough, hemoptysis, blood clots in the lungs reported. Mild Shortness of breath on exertion Gastrointestinal system review: Negative for any recent acute or chronic abdominal pain, hematemesis, melena, recent change in bowel habits. Genitourinary system review: Patient admitted with UTI and pyelonephritis.. Skin system review: Negative for any recent abnormal bruising, no rash, no pruritus reported. Neurologic: Positive prior history of strokes, mini strokes, negative seizure disorder. Psychologic: No history of major psychosis or major depression reported. Musculoskeletal: Minor aches and pains reported. No acute joint swelling reported. Endocrine: No recent polyuria, polydipsia, recent heat or cold intolerance. Physical Exam Vital Signs: Temp Pulse Resp BP Pulse Ox 98.2 F 81 18 144/70 H 94 10/31/17 16:00 10/31/17 16:00 10/31/17 16:00 10/31/17 16:00 10/31/17 16:00 Intake & Output 10/30/17 10/31/17 11/01/17 06:59 06:59 06:59 Intake Total 1076 1251 Output Total 3490 1440 Balance -2414 -189 Weight 95.7 kg 95.6 kg 95.6 kg Exam: GENERAL: well-nourished and in no acute distress. Alert and oriented x3 HEAD: Atraumatic, normocephalic. EYES: Pupils equal round and reactive to light, extraocular movements intact, sclera anicteric, conjunctiva are normal. ENT: TMs normal, nares patent, oropharynx clear without exudates. Moist mucous membranes. No oral ulcerations or bleeding gums noted NECK: supple without lymphadenopathy. Trachea is central. No cervical or axillary lymphadenopathy noted. Carotids are 2+, JVD WNL LUNGS: Respiration seems nonlabored, no significant accessory muscle action noted. Breath sounds clear to auscultation bilaterally and equal noted. No wheezes rales or rhonchi noted. No significant dullness noted on percussion. CHEST: Palpation of the chest wall shows no significant chest wall tenderness. No other significant abnormalities noted. HEART: [place] DIAMOND SETTER, No PSH, 1/6 VIRAL aortic area, 1/6 [place] systolic murmur mitral area, no rubs, no gallops. ABDOMEN: Soft, no significant tenderness appreciated, normoactive bowel sounds. No guarding, no rebound. No rigidity noted . No masses appreciated. EXTREMITIES: Pedal pulses are 1-2+, no calf tenderness noted. No clubbing or cyanosis.trace to 1+ pedal edema noted NEUROLOGICAL: Focused neurological exam showed no significant neurologic deficit. Normal speech, no focal weakness appreciated. PSYCH: Normal mood, normal affect. Judgment and insight within normal limits. SKIN: No significant ecchymosis, skin is noted to be warm. MUSCULOSKELETAL EXAM: No significant acute joint swelling noted. Results Laboratory Results: 10/31/17 06:00 10/31/17 06:00 10/31/17 10/31/17 10/31/17 06:00 06:00 06:15 WBC 32.3 H* RBC 7.17 H Hgb 13.2 Hct 43.6 MCV 61 L MCH 18.5 L MCHC 30.3 L RDW 23.8 H Plt Count 275 Sodium 141.5 Potassium 4.2 Chloride 111 H Carbon Dioxide 25 Anion Gap 6 BUN 13 Creatinine 0.80 Est GFR ( Amer) > 60 Est GFR (Non-Af Amer) > 60 Glucose 226 H Calcium 8.7 Urine Color YELLOW Urine Appearance SLIGHTLY-CLOUDY Urine pH 6.0 Ur Specific [place] 1.009 Urine Protein NEGATIVE Urine Glucose (UA) 50 H Urine Ketones NEGATIVE Urine Blood SMALL H Urine Nitrite NEGATIVE Ur Leukocyte Esterase LARGE H Urine WBC (Auto) 81 Urine RBC (Auto) 4 10/30/17 10/30/17 10/30/17 10:02 10:02 15:12 Creatine Kinase < 20 L CK-MB (CK-2) 0.38 Troponin I < 0.012 < 0.012 10/30/17 10/31/17 10/31/17 21:07 00:50 00:50 Creatine Kinase < 20 L CK-MB (CK-2) 0.47 Troponin I < 0.012 < 0.012 10/31/17 10/31/17 06:00 08:40 Creatine Kinase CK-MB (CK-2) Troponin I < 0.012 < 0.012 EKG Comments: Sinus rhythm, no acute ST-T wave changes noted. Impressions: Chest X-Ray 10/29/17 00:00 IMPRESSION: No evidence of acute cardiopulmonary abnormality. Renal Ultrasound 10/29/17 13:02 IMPRESSION: The 3.5 cm simple appearing cyst in the superior pole of the right kidney, otherwise unremarkable exam. Assessment & Plan - Diagnosis (1) Chest pain Qualifiers: Chest pain type: unspecified Qualified Code(s): R07.9 - Chest pain, unspecified Is this a current diagnosis for this admission?: Yes (2) Hypertension Qualifiers: Hypertension type: essential hypertension Qualified Code(s): I10 - Essential (primary) hypertension Is this a current diagnosis for this admission?: Yes (3) Anxiety disorder Qualifiers: Anxiety disorder type: generalized anxiety disorder Qualified Code(s): F41.1 - Generalized anxiety disorder Is this a current diagnosis for this admission?: Yes (4) CAD (coronary artery disease) Qualifiers: Coronary Disease-Associated Artery/Lesion type: [place] artery [place] vs. transplanted heart: [place] heart Associated angina: without angina Qualified Code(s): I25.10 - Atherosclerotic heart disease of [place] coronary artery without angina pectoris Is this a current diagnosis for this admission?: Yes (5) Diabetes mellitus type II, controlled Qualifiers: Diabetes mellitus complication status: with circulatory complication Diabetes mellitus complication detail: with other circulatory complications Diabetes mellitus halfway insulin use: without halfway use Qualified Code( s): E11.59 - Type 2 diabetes mellitus with other circulatory complications (6) Essential hypertension Is this a current diagnosis for this admission?: Yes (7) Gastroesophageal reflux disease Qualifiers: Esophagitis presence: esophagitis presence not specified Qualified Code(s) : K21.9 - Gastro-esophageal reflux disease without esophagitis Is this a current diagnosis for this admission?: Yes (8) History of CVA (cerebrovascular accident) Is this a current diagnosis for this admission?: Yes - Notes Notes: Will repeat EKG in the morning to look for any evolving changes. Agree with cardiac enzymes. Recommend CTA chest to rule out other causes of chest pain in the absence of significant EKG changes and negative enzymes. May need to consider to rule out PE and other causes. A order to that effect was entered. 2D echo shows normal LVEF. Chest pain: So far EKGs and cardiac enzymes are negative. Previous stress test was negative. At this point recommend proton pump inhibitor empirically, treatment of possible anxiety. Will consider a stress test as an outpatient. Agree with obtaining 2D echo which was reviewed. Hypertension: Recommend good control of blood pressure but avoid any hypo- tension or severe hypertension. Diabetes: Recommend good control of blood sugar. However should avoid any hypoglycemia and hyperglycemia. Patient being expertly managed by primary care M.D/hospitalist Gastroesophageal reflux disease: Continue proton pump inhibitor. History of CVA: Currently is stable. Sepsis and pyelonephritis: Continue antibiotic therapy.. - Time Time Spent: 30 to 50 Minutes - More than 50% of the time spent coordinating care , discussing management plans with involved caregivers. Management plans discussed with involved personnels. Medical decision making was of moderate to high complexity, patient's has multiple comorbidities. Medications reviewed and adjusted accordingly: Yes
--- NOTE | 2017-10-31 21:37 | RADIOLOGY REPORT (SQ) ---
EXAM DESCRIPTION: CTA CHEST COMPLETED DATE/TIME: 10/31/2017 9:04 pm REASON FOR STUDY: CP COMPARISON: None. TECHNIQUE: CT scan of the chest performed using helical scanning technique with dynamic intravenous contrast injection. Images reviewed with lung, soft tissue and bone windows. Reconstructed coronal and sagittal MPR images reviewed. Additional 3 dimensional post-processing performed to develop Maximal Intensity Projection images (IL P). All images stored on PACS. All CT scanners at this facility use dose modulation, iterative reconstruction, and/or weight based d osing when appropriate to reduce radiation dose to as low as reasonably achievable (ALARA). [facility]: Dose Right [facility]: CareDose [facility]: Dose Right [facility]: Teradose 4D [facility]: nothingGrinder CONTRAST TYPE AND DOSE: contrast/concentration: Isovue 370.00 mg/ml; Total Contrast Delivered: 78.0 ml; Total Saline Delivered: 70.6 ml Contrast bolus optimized for the pulmonary arteries. Not diagnostic for the aorta. RENAL FUNCTION: BUN 13 creatinine 0.8 RADIATION DOSE: CT Rad equipment meets quality standard of care and radiation dose reduction techniq ues were employed. CTDIvol: 19.8 - 28.2 mGy. DLP: 1011 mGy-cm. . LIMITATIONS: None. FINDINGS: LUNGS AND PLEURA: No masses, infiltrates, pneumothorax. No pleural effusions, calcificati ons. AORTA AND GREAT VESSELS: No aneurysm. No dissection. HEART: No pericardial effusion. No significant coronary artery calcifications. PULMONARY ARTERIES: No emboli visualized in the main pulmonary arteries or the segmental branches. HILAR AND MEDIASTINAL STRUCTURES: No identified masses or abnormal nodes. HARDWARE: None in the chest. UPPER ABDOMEN: No significant findings. Limited exam. THYROID AND OTHER SOFT TISSUES: No masses. No adenopathy. BONES: No acute or significant finding. 3D MIPS: Confirm above findings. OTHER: No other significant finding. IMPRESSION: NORMAL CTA OF THE CHEST. NO PULMONARY EMBOLI. COMMENT: Quality ID # [id number]: Final reports with documentation of one or more dose reduction techniques (e.g., Automated exposure control, adjustment of the mA and/or kV according to patient size, use of iterative reconstruction technique) TECHNICAL DOCUMENTATION: JOB ID: [id number] [employer]- All Rights Reserved Reading location - IP/workstation name: [email or web address]
[2017-10-31] MEDS: ATORVASTATIN CALCIUM 80 MG TABLET PO SCH (22:08)
[2017-10-31] MEDS: NORMAL SALINE 1000 ML 1,000 ML IV PRN (23:50)
[2017-11-01] MEDS: LANSOPRAZOLE 30 MG TAB.RAP.DR PO SCH (05:17)
[2017-11-01 06:08] LABS: HEMATOCRIT 43.2 % (36.0-47.0); HEMOGLOBIN 13.2 g/dL (12.0-15.5); MEAN CORPUSCULAR HEMOGLOBIN 18.4 pg (27.0-33.4); MEAN CORPUSCULAR HGB CONC 30.4 g/dL (32.0-36.0); MEAN CORPUSCULAR VOLUME 61 fl (80-97); PLATELET COUNT 264 10^3/uL (150-450); RED BLOOD COUNT 7.15 10^6/uL (3.72-5.28); RED CELL DISTRIBUTION WIDTH 23.8 % (11.5-14.0)
[2017-11-01 06:20] LABS: ANION GAP 9 (5-19); BLOOD UREA NITROGEN 13 mg/dL (7-20); CALCIUM 9.2 mg/dL (8.4-10.2); CARBON DIOXIDE 26 mmol/L (22-30); CHLORIDE 107 mmol/L (98-107); GLUCOSE 206 mg/dL (75-110); POTASSIUM 4.6 mmol/L (3.6-5.0); SODIUM 141.6 mmol/L (137-145)
[2017-11-01 06:44] LABS: WHITE BLOOD COUNT 31.1 10^3/uL (4.0-10.5)
[2017-11-01 06:49] LABS: ABSOLUTE LYMPHOCYTES# (MANUAL) 1.6 10^3/uL (0.5-4.7); ABSOLUTE MONOCYTES # (MANUAL) 1.6 10^3/uL (0.1-1.4); BAND NEUTROPHILS % (MANUAL) 2 % (3-5); BASOPHILS % (MANUAL) 0 % (0-2); EOSINOPHILS % (MANUAL) 0 % (0-6); LYMPHOCYTES % (MANUAL) 5 % (13-45); MONOCYTES % (MANUAL) 5 % (3-13); SEGMENTED NEUTROPHILS % (MAN) 88 % (42-78); TOTAL CELLS COUNTED 100
[2017-11-01 06:51] LABS: TOXIC GRANULATION 1+
[2017-11-01 06:52] LABS: ANISOCYTOSIS 3+; OVALOCYTES 1+; PLATELET COMMENT ADEQUATE; PLATELET GIANT PRESENT; PLATELET LARGE PRESENT; POIKILOCYTOSIS 1+; SCHISTOCYTES 1+; TEAR DROP CELLS 1+
--- NOTE | 2017-11-01 09:17 | EKG REPORT ---
SEVERITY:- ABNORMAL ECG - SINUS RHYTHM CONSIDER ANTEROSEPTAL INFARCT : Confirmed by: Bud Medina 01-Nov-2017 09:16:49
[2017-11-01] MEDS: METOPROLOL TARTRATE 25 MG TABLET PO SCH ×2 (10:20→21:22)
[2017-11-01] MEDS: GABAPENTIN 300 MG CAPSULE PO SCH ×2 (10:20→21:21)
[2017-11-01] MEDS: ISOSORBIDE DINITRATE 20 MG TABLET PO SCH (10:20)
[2017-11-01] MEDS: BUSPIRONE HCL 10 MG TABLET PO SCH ×2 (10:21→18:36)
[2017-11-01] MEDS: SERTRALINE HCL 50 MG TABLET PO SCH (10:22)
[2017-11-01] MEDS: CLOPIDOGREL BISULFATE 75 MG TABLET PO SCH (10:22)
[2017-11-01] MEDS: DOCUSATE SODIUM 100 MG CAPSULE PO SCH ×2 (10:22→18:35)
[2017-11-01] MEDS: FAMOTIDINE 20 MG TABLET PO SCH ×2 (10:22→21:23)
[2017-11-01] MEDS: ASPIRIN 325 MG TABLET, ENT COATED PO SCH (10:23)
[2017-11-01] MEDS: OXYCODONE HCL IR 5 MG TABLET PO PRN ×2 (10:24→14:00)
[2017-11-01] MEDS: MEROPENEM 1 GM in NORMAL SALINE 100 ML IV SCH ×2 (10:26→21:24)
--- NOTE | 2017-11-01 11:28 | PDOC PROGRESS REPORT ---
Subjective Progress Note for:: 11/01/17 Subjective:: Patient seems to be doing better with gradual improvement. Pt is denying any chest arm or neck discomfort. Patient denying any PND, orthopnea. Patient denied any sustained palpitations, dizziness, syncope, near syncope. Patient denying any fever chills. Patient denying any other significant discomfort. Patient is maintaining sinus rhythm. Review of systems: Rest review of systems negative. Medications: Medications have been reviewed. Reason For Visit: PYELONEPHRITIS, BANDEMIA Physical Exam Vital Signs: Temp Pulse Resp BP Pulse Ox 98.8 F 89 16 184/82 H 95 11/01/17 07:32 11/01/17 09:14 11/01/17 09:14 11/01/17 07:32 11/01/17 09:14 Intake & Output 10/31/17 11/01/17 11/02/17 06:59 06:59 06:59 Intake Total 1076 2621 Output Total 3490 3490 Balance -2414 -869 Weight 95.6 kg 103.1 kg Exam: GENERAL: well-nourished and in no acute distress. Alert and oriented x3 HEAD: Atraumatic, normocephalic. EYES: Pupils equal round and reactive to light, extraocular movements intact, sclera anicteric, conjunctiva are normal. ENT: TMs normal, nares patent, oropharynx clear without exudates. Moist mucous membranes. No oral ulcerations or bleeding gums noted NECK: supple without lymphadenopathy. Trachea is central. No cervical or axillary lymphadenopathy noted. Carotids are 2+, JVD WNL LUNGS: Respiration seems nonlabored, no significant accessory muscle action noted. Breath sounds clear to auscultation bilaterally and equal noted. No wheezes rales or rhonchi noted. No significant dullness noted on percussion. CHEST: Palpation of the chest wall shows no significant chest wall tenderness. No other significant abnormalities noted. HEART: [place] [employer] CHIEF, No PSH, 1/6 VIRAL aortic area, 1/6 [place] systolic murmur mitral area, no rubs, no gallops. ABDOMEN: Soft, no significant tenderness appreciated, normoactive bowel sounds. No guarding, no rebound. No rigidity noted . No masses appreciated. EXTREMITIES: Pedal pulses are 1-2+, no calf tenderness noted. No clubbing or cyanosis.trace to 1+ pedal edema noted NEUROLOGICAL: Focused neurological exam showed no significant neurologic deficit. Normal speech, no focal weakness appreciated. PSYCH: Normal mood, normal affect. Judgment and insight within normal limits. SKIN: No significant ecchymosis, skin is noted to be warm. MUSCULOSKELETAL EXAM: No significant acute joint swelling noted. Results Laboratory Results: 11/01/17 04:57 11/01/17 04:57 11/01/17 11/01/17 04:57 04:57 WBC 31.1 H* RBC 7.15 H Hgb 13.2 Hct 43.2 MCV 61 L MCH 18.4 L MCHC 30.4 L RDW 23.8 H Plt Count 264 Seg Neutrophils % Not Reportable Lymphocytes % Not Reportable Monocytes % Not Reportable Eosinophils % Not Reportable Basophils % Not Reportable Absolute Neutrophils Not Reportable Absolute Lymphocytes Not Reportable Absolute Monocytes Not Reportable Absolute Eosinophils Not Reportable Absolute Basophils Not Reportable Sodium 141.6 Potassium 4.6 Chloride 107 Carbon Dioxide 26 Anion Gap 9 BUN 13 Creatinine 0.85 Est GFR ( Amer) > 60 Est GFR (Non-Af Amer) > 60 Glucose 206 H Calcium 9.2 10/30/17 10/30/17 10/30/17 10:02 10:02 15:12 Creatine Kinase < 20 L CK-MB (CK-2) 0.38 Troponin I < 0.012 < 0.012 10/30/17 10/31/17 10/31/17 21:07 00:50 00:50 Creatine Kinase < 20 L CK-MB (CK-2) 0.47 Troponin I < 0.012 < 0.012 10/31/17 10/31/17 06:00 08:40 Creatine Kinase CK-MB (CK-2) Troponin I < 0.012 < 0.012 EKG Comments: Telemetry shows sinus rhythm without any sustained tachycardia or bradycardia. Impressions: Chest X-Ray 10/29/17 00:00 IMPRESSION: No evidence of acute cardiopulmonary abnormality. Renal Ultrasound 10/29/17 13:02 IMPRESSION: The 3.5 cm simple appearing cyst in the superior pole of the right kidney, otherwise unremarkable exam. Chest/Abdomen CTA 10/31/17 12:51 IMPRESSION: NORMAL CTA OF THE CHEST. NO PULMONARY EMBOLI. Assessment & Plan - Diagnosis (1) Chest pain Qualifiers: Chest pain type: unspecified Qualified Code(s): R07.9 - Chest pain, unspecified Is this a current diagnosis for this admission?: Yes (2) Hypertension Qualifiers: Hypertension type: essential hypertension Qualified Code(s): I10 - Essential (primary) hypertension Is this a current diagnosis for this admission?: Yes (3) Anxiety disorder Qualifiers: Anxiety disorder type: generalized anxiety disorder Qualified Code(s): F41.1 - Generalized anxiety disorder Is this a current diagnosis for this admission?: Yes (4) CAD (coronary artery disease) Qualifiers: Coronary Disease-Associated Artery/Lesion type: [place] artery [place] vs. 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 Have recommended patient for a nuclear stress test. Today's EKG shows no significant ST-T wave changes. Chest pain: So far EKGs and cardiac enzymes are negative. At this point recommend proton pump inhibitor empirically, treatment of possible anxiety. Will consider a stress test as an outpatient, patient however prefers this as an inpatient because of mobility issues. Hypertension: Recommend good control of blood pressure but avoid any hypo- tension or severe hypertension. Diabetes: Recommend good control of blood sugar. However should avoid any hypoglycemia and hyperglycemia. Patient being expertly managed by primary care M.D/hospitalist Gastroesophageal reflux disease: Continue proton pump inhibitor. History of CVA: Currently is stable. Sepsis and pyelonephritis: Continue antibiotic therapy.. - Time Time with patient: 15-25 minutes - CODE STATUS was discussed, patient remains full code. Surrogate decision-maker unchanged. Multiple medical problems were addressed. More than 50% of the time spent coordinating care, discussing management plans with involved caregivers. Management plans discussed with involved personnels. Medical decision making was of moderate to high complexity , patient's has multiple comorbidities. Medications reviewed and adjusted accordingly: Yes
[2017-11-01] MEDS ORDERED: ENOXAPARIN SODIUM INJ 40 MG/0.4 ML DISP.SYRIN SUBCUT ONE (12:00)
[2017-11-01] MEDS: INSULIN LISPRO 100 UNIT/ML 3 ML VIAL SUBCUT PRN ×2 (12:04→22:12)
[2017-11-01] MEDS: NORMAL SALINE 1000 ML 1,000 ML IV PRN (13:59)
[2017-11-01] MEDS: NYSTATIN/DEXAMETH/DIPHEN SUSP 120 ML PO SCH ×2 (18:34→21:23)
--- NOTE | 2017-11-01 19:22 | PDOC PROGRESS REPORT ---
Subjective Progress Note for:: 11/01/17 Subjective:: ORACIO PEDROZA is a 82-year-old female who presented to the hospital for pyelonephritis on 10/29/2017, she subsequently developed acute chest pain with EKG changes the following day. Patient was briefly in the ICU on a nitro drip, serial troponins were negative, cardiology consulted. Patient was seen this morning on rounds, she is sitting upright in bed on supplemental oxygen via nasal cannula at 2L/min. She states that she has no chest pain this morning, her only complaint is of throat pain. There appears to be dried blood on her lips and petechiae on the lateral edges of her tongue. It appears that she bit her tongue but what she complains of is throat pain. Consulted with Dr. Medina this morning and the plan (from a cardiology perspective) is to pursue a stress test while the patient remains chest pain- free. Reason For Visit: PYELONEPHRITIS, BANDEMIA Physical Exam Vital Signs: Temp Pulse Resp BP Pulse Ox 99.3 F 93 20 149/68 H 93 11/01/17 16:26 11/01/17 18:39 11/01/17 16:26 11/01/17 16:26 11/01/17 16:26 Intake & Output 10/31/17 11/01/17 11/02/17 06:59 06:59 06:59 Intake Total 1076 2621 437 Output Total 3490 3490 2400 Balance -2414 -869 -1963 Weight 95.6 kg 103.1 kg General appearance: PRESENT: no acute distress Head exam: PRESENT: atraumatic Eye exam: PRESENT: conjunctiva pink Mouth exam: PRESENT: moist, neck supple, tongue midline Teeth exam: PRESENT: poor dentation Neck exam: PRESENT: full ROM Respiratory exam: PRESENT: clear to auscultation carmen Cardiovascular exam: PRESENT: +S1, +S2 Pulses: PRESENT: normal radial pulses, normal dorsalis pedis pul Vascular exam: PRESENT: normal capillary refill GI/Abdominal exam: PRESENT: normal bowel sounds Rectal exam: PRESENT: deferred Extremities exam: PRESENT: full ROM Musculoskeletal exam: PRESENT: full ROM Neurological exam: PRESENT: alert, altered, awake, oriented to person, oriented to place, oriented to time, oriented to situation Psychiatric exam: PRESENT: appropriate affect Results Laboratory Results: 11/01/17 04:57 11/01/17 04:57 11/01/17 11/01/17 04:57 04:57 WBC 31.1 H* RBC 7.15 H Hgb 13.2 Hct 43.2 MCV 61 L MCH 18.4 L MCHC 30.4 L RDW 23.8 H Plt Count 264 Seg Neutrophils % Not Reportable Lymphocytes % Not Reportable Monocytes % Not Reportable Eosinophils % Not Reportable Basophils % Not Reportable Absolute Neutrophils Not Reportable Absolute Lymphocytes Not Reportable Absolute Monocytes Not Reportable Absolute Eosinophils Not Reportable Absolute Basophils Not Reportable Sodium 141.6 Potassium 4.6 Chloride 107 Carbon Dioxide 26 Anion Gap 9 BUN 13 Creatinine 0.85 Est GFR ( Amer) > 60 Est GFR (Non-Af Amer) > 60 Glucose 206 H Calcium 9.2 10/30/17 10/30/17 10/30/17 10:02 10:02 15:12 Creatine Kinase < 20 L CK-MB (CK-2) 0.38 Troponin I < 0.012 < 0.012 10/30/17 10/31/17 10/31/17 21:07 00:50 00:50 Creatine Kinase < 20 L CK-MB (CK-2) 0.47 Troponin I < 0.012 < 0.012 10/31/17 10/31/17 06:00 08:40 Creatine Kinase CK-MB (CK-2) Troponin I < 0.012 < 0.012 Impressions: Chest X-Ray 10/29/17 00:00 IMPRESSION: No evidence of acute cardiopulmonary abnormality. Renal Ultrasound 10/29/17 13:02 IMPRESSION: The 3.5 cm simple appearing cyst in the superior pole of the right kidney, otherwise unremarkable exam. Chest/Abdomen CTA 10/31/17 12:51 IMPRESSION: NORMAL CTA OF THE CHEST. NO PULMONARY EMBOLI. Assessment & Plan - Diagnosis (1) Chest pain Qualifiers: Chest pain type: unspecified Qualified Code(s): R07.9 - Chest pain, unspecified Is this a current diagnosis for this admission?: Yes Plan: Resolved. The patient was previously complaining of chest pain, EKG initially demonstrated ST elevation in V2-3 without reciprocal changes. Patient was initially treated as an acute MD, placed on a heparin drip, has since been transitioned to p.o. Plavix, heparin drip has been discontinued. Serial troponins have been negative, no longer trending. Cardiology consulted, appreciate their recommendations. Echocardiogram shows grade II/IV mild diastolic dysfunction, otherwise normal. Cardiac stress test done in , no need to repeat. Continue ASA, Plavix, statin, and beta lashell post MD. (2) Anxiety and depression Is this a current diagnosis for this admission?: Yes Plan: Continue Zoloft and BuSpar (3) Chronic diastolic CHF (congestive heart failure) Is this a current diagnosis for this admission?: Yes Plan: Echocardiogram demonstrates moderate diastolic dysfunction with preserved ejection fraction. The patient appears euvolemic today. Continue cardiac diet. Daily weights, monitor closely for evidence of volume overload. (4) Diabetes Qualifiers: Diabetes mellitus type: type 1 Is this a current diagnosis for this admission?: Yes Plan: Consistent carb diet. Accu-Cheks before meals and at bedtime with Humalog for sliding scale coverage. (5) Essential hypertension Is this a current diagnosis for this admission?: Yes Plan: Continue home medications isosorbide, metoprolol. - (6) GERD (gastroesophageal reflux disease) Qualifiers: Esophagitis presence: without esophagitis Qualified Code(s): K21.9 - Gastro -esophageal reflux disease without esophagitis Is this a current diagnosis for this admission?: Yes Plan: Continue PPI. Patient denies any abdominal pain or symptoms of reflux (7) Obesity (BMI 30-39.9) Is this a current diagnosis for this admission?: Yes Plan: Dietary discretion is advised. Patient would benefit from meeting with registered dietitians. (8) Hyperlipidemia Qualifiers: Hyperlipidemia type: unspecified Qualified Code(s): E78.5 - Hyperlipidemia , unspecified Is this a current diagnosis for this admission?: Yes Plan: Continue statin therapy. (9) CAD (coronary artery disease) Qualifiers: Coronary Disease-Associated Artery/Lesion type: [place] artery [place] vs. transplanted heart: [place] heart Associated angina: without angina Qualified Code(s): I25.10 - Atherosclerotic heart disease of [place] coronary artery without angina pectoris Is this a current diagnosis for this admission?: Yes Plan: History of acute NSTEMI 07/2017. Patient did not have cardiac catheterization at that time and was treated medically. Continue aspirin, Plavix, statin, beta-lashell. - Time Time Spent with patient: 15-24 minutes Medications reviewed and adjusted accordingly: Yes Anticipated discharge: Home - Inpatient Certification Based on my medical assessment, after consideration of the patient's comorbidities, presenting symptoms, or acuity I expect that the services needed warrant INPATIENT care.: Yes I certify that my determination is in accordance with my understanding of Medicare's requirements for reasonable and necessary INPATIENT services [42 CFR 412.3e].: Yes Medical Necessity: Risk of Complication if Not Cared For in Hospital - Plan Summary Plan Summary: ultimately, the plan is to discharge the patient back to her home living situation
[2017-11-01] MEDS: ATORVASTATIN CALCIUM 80 MG TABLET PO SCH (21:23)
[2017-11-02] MEDS: NORMAL SALINE 1000 ML 1,000 ML IV PRN ×3 (00:26→21:40)
[2017-11-02] MEDS: LANSOPRAZOLE 30 MG TAB.RAP.DR PO SCH (05:22)
[2017-11-02 05:39] LABS: HEMATOCRIT 44.2 % (36.0-47.0); HEMOGLOBIN 13.5 g/dL (12.0-15.5); MEAN CORPUSCULAR HEMOGLOBIN 18.4 pg (27.0-33.4); MEAN CORPUSCULAR HGB CONC 30.5 g/dL (32.0-36.0); PLATELET COUNT 274 10^3/uL (150-450); RED BLOOD COUNT 7.32 10^6/uL (3.72-5.28); RED CELL DISTRIBUTION WIDTH 23.6 % (11.5-14.0)
[2017-11-02 06:18] LABS: APPEARANCE,URINE CLEAR; BILIRUBIN,URINE NEGATIVE (NEGATIVE); COLOR,URINE STRAW; GLUCOSE, URINE NEGATIVE (NEGATIVE); KETONES,URINE NEGATIVE (NEGATIVE); LEUKOCYTE ESTERASE,URINE TRACE (NEGATIVE); NITRITE,URINE NEGATIVE (NEGATIVE); PROTEIN,URINE NEGATIVE (NEGATIVE); URINE SPECIFIC GRAVITY 1.005; UROBILINOGEN,URINE NEGATIVE mg/dL (<2.0)
[2017-11-02 06:22] LABS: MEAN CORPUSCULAR VOLUME 60 fl (80-97)
[2017-11-02 06:23] LABS: WHITE BLOOD COUNT 31.3 10^3/uL (4.0-10.5)
[2017-11-02] MEDS: INSULIN LISPRO 100 UNIT/ML 3 ML VIAL SUBCUT PRN ×4 (08:33→21:42)
[2017-11-02] MEDS ORDERED: METOPROLOL TARTRATE 25 MG TABLET PO SCH (10:00)
[2017-11-02] MEDS: ENOXAPARIN SODIUM INJ 40 MG/0.4 ML DISP.SYRIN SUBCUT SCH (11:03)
[2017-11-02] MEDS: ASPIRIN 325 MG TABLET, ENT COATED PO SCH (11:03)
[2017-11-02] MEDS: GABAPENTIN 300 MG CAPSULE PO SCH ×2 (11:03→21:31)
[2017-11-02] MEDS: SERTRALINE HCL 50 MG TABLET PO SCH (11:04)
[2017-11-02] MEDS: METOPROLOL TARTRATE 100 MG TABLET PO SCH ×2 (11:04→21:33)
[2017-11-02] MEDS: DOCUSATE SODIUM 100 MG CAPSULE PO SCH ×2 (11:04→17:18)
[2017-11-02] MEDS: FAMOTIDINE 20 MG TABLET PO SCH ×2 (11:05→21:31)
[2017-11-02] MEDS: CLOPIDOGREL BISULFATE 75 MG TABLET PO SCH (11:05)
[2017-11-02] MEDS: BUSPIRONE HCL 10 MG TABLET PO SCH ×2 (11:06→17:18)
[2017-11-02] MEDS: ISOSORBIDE DINITRATE 20 MG TABLET PO SCH (11:07)
[2017-11-02] MEDS: NYSTATIN/DEXAMETH/DIPHEN SUSP 120 ML PO SCH ×4 (11:07→21:32)
[2017-11-02] MEDS: MEROPENEM 1 GM in NORMAL SALINE 100 ML IV SCH ×2 (11:08→21:31)
--- NOTE | 2017-11-02 18:35 | PDOC PROGRESS REPORT ---
Subjective Progress Note for:: 11/02/17 Subjective:: ORACIO PEDROZA is a 82-year-old female who presented to the hospital for pyelonephritis on 10/29/2017, she subsequently developed acute chest pain with EKG changes the following day. Patient was briefly in the ICU on a nitro drip, serial troponins were negative, cardiology consulted. Patient was seen this morning on rounds, she is sitting upright in bed on room air. Earlier this morning, per nursing staff, the patient was experiencing a nosebleed and her SBP was 180. The patient denied headache. She was given 10 mg IV hydralazine. When seen this morning on rounds, the patient's blood pressure had returned to normal limits. She stated that she has no chest pain this morning, and is otherwise complaint free. The patient reports that she has not been out of bed since hospitalization and would like to get up today. Reason For Visit: PYELONEPHRITIS, BANDEMIA Physical Exam Vital Signs: Temp Pulse Resp BP Pulse Ox 97.6 F 83 20 151/75 H 97 11/02/17 16:32 11/02/17 16:32 11/02/17 16:32 11/02/17 16:32 11/02/17 16:32 Intake & Output 11/01/17 11/02/17 11/03/17 06:59 06:59 06:59 Intake Total 2621 4291 1200 Output Total 3490 5575 Balance -869 -1284 1200 Weight 103.1 kg 101.9 kg General appearance: PRESENT: no acute distress Head exam: PRESENT: atraumatic Eye exam: PRESENT: conjunctiva pink Mouth exam: PRESENT: moist Teeth exam: PRESENT: poor dentation Neck exam: PRESENT: full ROM Respiratory exam: PRESENT: clear to auscultation carmen Cardiovascular exam: PRESENT: +S1, +S2 Pulses: PRESENT: normal radial pulses, normal dorsalis pedis pul GI/Abdominal exam: PRESENT: normal bowel sounds, tenderness Extremities exam: PRESENT: full ROM Musculoskeletal exam: PRESENT: ambulatory - Patient reports that she normally ambulates at home but has not been out of bed since her admission, full ROM Neurological exam: PRESENT: alert, altered, awake, oriented to person, oriented to place, oriented to time, oriented to situation Psychiatric exam: PRESENT: appropriate affect Skin exam: PRESENT: normal color Results Laboratory Results: 11/02/17 04:54 11/01/17 04:57 11/02/17 11/02/17 11/02/17 04:54 04:54 05:55 WBC 31.3 H* RBC 7.32 H Hgb 13.5 Hct 44.2 MCV 60 L MCH 18.4 L MCHC 30.5 L RDW 23.6 H Plt Count 274 Phosphorus 2.9 Urine Color STRAW Urine Appearance CLEAR Urine pH 7.0 Ur Specific [place] 1.005 Urine Protein NEGATIVE Urine Glucose (UA) NEGATIVE Urine Ketones NEGATIVE Urine Blood NEGATIVE Urine Nitrite NEGATIVE Ur Leukocyte Esterase TRACE H Urine WBC (Auto) 7 Urine RBC (Auto) 0 10/30/17 10/30/17 10/30/17 10:02 10:02 15:12 Creatine Kinase < 20 L CK-MB (CK-2) 0.38 Troponin I < 0.012 < 0.012 10/30/17 10/31/17 10/31/17 21:07 00:50 00:50 Creatine Kinase < 20 L CK-MB (CK-2) 0.47 Troponin I < 0.012 < 0.012 10/31/17 10/31/17 06:00 08:40 Creatine Kinase CK-MB (CK-2) Troponin I < 0.012 < 0.012 Impressions: Chest X-Ray 10/29/17 00:00 IMPRESSION: No evidence of acute cardiopulmonary abnormality. Renal Ultrasound 10/29/17 13:02 IMPRESSION: The 3.5 cm simple appearing cyst in the superior pole of the right kidney, otherwise unremarkable exam. Chest/Abdomen CTA 10/31/17 12:51 IMPRESSION: NORMAL CTA OF THE CHEST. NO PULMONARY EMBOLI. Status: Imported from PACS Assessment & Plan - Diagnosis (1) Chest pain Qualifiers: Chest pain type: unspecified Qualified Code(s): R07.9 - Chest pain, unspecified Is this a current diagnosis for this admission?: Yes Plan: Resolved. The patient was previously complaining of chest pain, EKG initially demonstrated ST elevation in V2-3 without reciprocal changes. Patient was initially treated as an acute [place], placed on a heparin drip, has since been transitioned to p.o. Plavix, heparin drip has been discontinued. Serial troponins have been negative, no longer trending. Cardiology consulted, appreciate their recommendations. Echocardiogram shows grade II/IV mild diastolic dysfunction, otherwise normal. Cardiac stress test done in , no need to repeat. Continue ASA, Plavix, statin, and beta lashell post NH. Patient will need close cardiology follow-up upon discharge (2) Anxiety and depression Is this a current diagnosis for this admission?: Yes Plan: Continue Zoloft and BuSpar (3) Chronic diastolic CHF (congestive heart failure) Is this a current diagnosis for this admission?: Yes Plan: Echocardiogram demonstrates moderate diastolic dysfunction with preserved ejection fraction. The patient appears euvolemic today. Continue cardiac diet. Daily weights, monitor closely for evidence of volume overload. (4) Diabetes Qualifiers: Diabetes mellitus type: type 1 Is this a current diagnosis for this admission?: Yes Plan: Consistent carb diet. Accu-Cheks before meals and at bedtime with Humalog for sliding scale coverage. (5) Essential hypertension Is this a current diagnosis for this admission?: Yes Plan: Continue home medications isosorbide, metoprolol. (6) GERD (gastroesophageal reflux disease) Qualifiers: Esophagitis presence: without esophagitis Qualified Code(s): K21.9 - Gastro -esophageal reflux disease without esophagitis Is this a current diagnosis for this admission?: Yes Plan: Continue PPI. Patient denies any abdominal pain or symptoms of reflux (7) Obesity (BMI 30-39.9) Is this a current diagnosis for this admission?: Yes Plan: Dietary discretion is advised. Patient would benefit from meeting with registered dietitians. (8) Hyperlipidemia Qualifiers: Hyperlipidemia type: unspecified Qualified Code(s): E78.5 - Hyperlipidemia , unspecified Is this a current diagnosis for this admission?: Yes Plan: Continue statin therapy. (9) CAD (coronary artery disease) Qualifiers: Coronary Disease-Associated Artery/Lesion type: [place] artery [place] vs. transplanted heart: [place] heart Associated angina: without angina Qualified Code(s): I25.10 - Atherosclerotic heart disease of [place] coronary artery without angina pectoris Is this a current diagnosis for this admission?: Yes Plan: History of acute NSTEMI 07/2017. Patient did not have cardiac catheterization at that time and was treated medically. Continue aspirin, Plavix, statin, beta-lashell. - Time Time Spent with patient: 15-24 minutes Anticipated discharge: Home Within: within 24 hours - Inpatient Certification Based on my medical assessment, after consideration of the patient's comorbidities, presenting symptoms, or acuity I expect that the services needed warrant INPATIENT care.: Yes I certify that my determination is in accordance with my understanding of Medicare's requirements for reasonable and necessary INPATIENT services [42 CFR 412.3e].: Yes Medical Necessity: Risk of Complication if Not Cared For in Hospital - Plan Summary Plan Summary: Ultimately, the plan is to discharge the patient home with 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
[2017-11-02] MEDS: ATORVASTATIN CALCIUM 80 MG TABLET PO SCH (21:31)
[2017-11-03] MEDS: LANSOPRAZOLE 30 MG TAB.RAP.DR PO SCH (05:20)
[2017-11-03 07:03] LABS: HEMATOCRIT 45.3 % (36.0-47.0); HEMOGLOBIN 13.8 g/dL (12.0-15.5); MEAN CORPUSCULAR HEMOGLOBIN 18.4 pg (27.0-33.4); MEAN CORPUSCULAR HGB CONC 30.5 g/dL (32.0-36.0); MEAN CORPUSCULAR VOLUME 61 fl (80-97); PLATELET COUNT 345 10^3/uL (150-450); RED BLOOD COUNT 7.49 10^6/uL (3.72-5.28); RED CELL DISTRIBUTION WIDTH 23.4 % (11.5-14.0)
[2017-11-03 07:11] LABS: ANION GAP 11 (5-19); BLOOD UREA NITROGEN 12 mg/dL (7-20); CALCIUM 9.4 mg/dL (8.4-10.2); CARBON DIOXIDE 27 mmol/L (22-30); CHLORIDE 104 mmol/L (98-107); GLUCOSE 224 mg/dL (75-110); POTASSIUM 4.8 mmol/L (3.6-5.0); SODIUM 142.1 mmol/L (137-145)
[2017-11-03 07:26] LABS: WHITE BLOOD COUNT 34.1 10^3/uL (4.0-10.5)
[2017-11-03 07:55] LABS: ABSOLUTE LYMPHOCYTES# (MANUAL) 2.4 10^3/uL (0.5-4.7); ABSOLUTE MONOCYTES # (MANUAL) 0.7 10^3/uL (0.1-1.4); BAND NEUTROPHILS % (MANUAL) 4 % (3-5); BASOPHILS % (MANUAL) 0 % (0-2); EOSINOPHILS % (MANUAL) 0 % (0-6); HYPOCHROMASIA 1+; LYMPHOCYTES % (MANUAL) 7 % (13-45); MONOCYTES % (MANUAL) 2 % (3-13); OVALOCYTES 2+; PLATELET COMMENT ADEQUATE; POIKILOCYTOSIS 2+; POLYCHROMASIA SLIGHT; SEGMENTED NEUTROPHILS % (MAN) 87 % (42-78); TEAR DROP CELLS SLIGHT; TOTAL CELLS COUNTED 100; TOXIC GRANULATION SLIGHT; TOXIC VACUOLATION PRESENT
[2017-11-03] MEDS: INSULIN LISPRO 100 UNIT/ML 3 ML VIAL SUBCUT PRN ×4 (07:58→21:26)
[2017-11-03] MEDS: OXYCODONE HCL IR 5 MG TABLET PO PRN (08:44)
[2017-11-03] MEDS: ENOXAPARIN SODIUM INJ 40 MG/0.4 ML DISP.SYRIN SUBCUT SCH (09:44)
[2017-11-03] MEDS: ISOSORBIDE DINITRATE 20 MG TABLET PO SCH (09:45)
[2017-11-03] MEDS: BUSPIRONE HCL 10 MG TABLET PO SCH ×2 (09:46→17:34)
[2017-11-03] MEDS: SERTRALINE HCL 50 MG TABLET PO SCH (09:48)
[2017-11-03] MEDS: DOCUSATE SODIUM 100 MG CAPSULE PO SCH ×2 (09:48→17:34)
[2017-11-03] MEDS: FAMOTIDINE 20 MG TABLET PO SCH ×2 (09:49→21:28)
[2017-11-03] MEDS: GABAPENTIN 300 MG CAPSULE PO SCH ×2 (09:49→21:27)
[2017-11-03] MEDS: CLOPIDOGREL BISULFATE 75 MG TABLET PO SCH (09:50)
[2017-11-03] MEDS: METOPROLOL TARTRATE 100 MG TABLET PO SCH ×2 (09:50→21:28)
[2017-11-03] MEDS: NYSTATIN/DEXAMETH/DIPHEN SUSP 120 ML PO SCH ×4 (09:51→21:23)
[2017-11-03] MEDS: ASPIRIN 325 MG TABLET, ENT COATED PO SCH (09:51)
[2017-11-03] MEDS: CEFAZOLIN 1 GM/D5W RTU 1 GM/50 ML RTUPB IV SCH ×2 (09:52→17:34)
[2017-11-03] MEDS: NORMAL SALINE 1000 ML 1,000 ML IV PRN ×2 (09:53→21:22)
--- NOTE | 2017-11-03 16:04 | PDOC PROGRESS REPORT ---
Subjective Progress Note for:: 11/03/17 Subjective:: ORACIO PEDROZA is a 82-year-old female who presented to the hospital for pyelonephritis on 10/29/2017, she subsequently developed acute chest pain with EKG changes the following day. Patient was briefly in the ICU on a nitro drip, serial troponins were negative, cardiology consulted. Patient was seen this morning on rounds, she is sitting upright in bed on room air. She stated that she has no chest pain this morning and is otherwise complaint free. The patient reports that she has not been out of bed since hospitalization and would like to get up today. The patient's WBC is 34 today, it has been consistently elevated since her arrival. Looking back in the patient 's medical records, she has a history of leukocytosis > 20. Concern for malignancy - oncology was consulted today. Reason For Visit: PYELONEPHRITIS, BANDEMIA Physical Exam Vital Signs: Temp Pulse Resp BP Pulse Ox 97.8 F 85 16 144/86 H 92 11/03/17 12:11 11/03/17 12:11 11/03/17 12:11 11/03/17 12:11 11/03/17 12:11 Intake & Output 11/02/17 11/03/17 11/04/17 06:59 06:59 06:59 Intake Total 4298 3668 Output Total 4978 5681 Balance -1284 -5528 Weight 101.9 kg 103.3 kg General appearance: PRESENT: no acute distress Head exam: PRESENT: atraumatic Eye exam: PRESENT: conjunctiva pink Mouth exam: PRESENT: moist Neck exam: PRESENT: full ROM Respiratory exam: PRESENT: clear to auscultation carmen Cardiovascular exam: PRESENT: +S1, +S2 Pulses: PRESENT: normal radial pulses GI/Abdominal exam: PRESENT: normal bowel sounds, soft Rectal exam: PRESENT: deferred Extremities exam: PRESENT: full ROM Musculoskeletal exam: PRESENT: full ROM - Patient states she is weak and has not been OOB in 5 days Neurological exam: PRESENT: alert, altered, awake, oriented to person, oriented to place, oriented to time, oriented to situation Psychiatric exam: PRESENT: appropriate affect Skin exam: PRESENT: normal color Results Laboratory Results: 11/03/17 06:15 11/03/17 06:15 11/03/17 11/03/17 06:15 06:15 WBC 34.1 H* RBC 7.49 H Hgb 13.8 Hct 45.3 MCV 61 L MCH 18.4 L MCHC 30.5 L RDW 23.4 H Plt Count 345 Seg Neutrophils % Not Reportable Lymphocytes % Not Reportable Monocytes % Not Reportable Eosinophils % Not Reportable Basophils % Not Reportable Absolute Neutrophils Not Reportable Absolute Lymphocytes Not Reportable Absolute Monocytes Not Reportable Absolute Eosinophils Not Reportable Absolute Basophils Not Reportable Sodium 142.1 Potassium 4.8 Chloride 104 Carbon Dioxide 27 Anion Gap 11 BUN 12 Creatinine 0.68 Est GFR ( Amer) > 60 Est GFR (Non-Af Amer) > 60 Glucose 224 H Calcium 9.4 Magnesium 1.7 10/30/17 10/30/17 10/30/17 10:02 10:02 15:12 Creatine Kinase < 20 L CK-MB (CK-2) 0.38 Troponin I < 0.012 < 0.012 10/30/17 10/31/17 10/31/17 21:07 00:50 00:50 Creatine Kinase < 20 L CK-MB (CK-2) 0.47 Troponin I < 0.012 < 0.012 10/31/17 10/31/17 06:00 08:40 Creatine Kinase CK-MB (CK-2) Troponin I < 0.012 < 0.012 Impressions: Chest X-Ray 10/29/17 00:00 IMPRESSION: No evidence of acute cardiopulmonary abnormality. Renal Ultrasound 10/29/17 13:02 IMPRESSION: The 3.5 cm simple appearing cyst in the superior pole of the right kidney, otherwise unremarkable exam. Chest/Abdomen CTA 10/31/17 12:51 IMPRESSION: NORMAL CTA OF THE CHEST. NO PULMONARY EMBOLI. Status: Imported from PACS Assessment & Plan - Diagnosis (1) Chest pain Qualifiers: Chest pain type: unspecified Qualified Code(s): R07.9 - Chest pain, unspecified Is this a current diagnosis for this admission?: Yes Plan: Resolved. The patient was previously complaining of chest pain, EKG initially demonstrated ST elevation in V2-3 without reciprocal changes. Patient was initially treated as an acute CT, placed on a heparin drip, has since been transitioned to p.o. Plavix, heparin drip has been discontinued. Serial troponins have been negative, no longer trending. Cardiology consulted, appreciate their recommendations. Echocardiogram shows grade II/IV mild diastolic dysfunction, otherwise normal. Cardiac stress test done in , no need to repeat. Continue ASA, Plavix, statin, and beta lashell post CT. Patient will need close cardiology follow-up upon discharge (2) Leukocytosis, unspecified Qualifiers: Leukocytosis type: bandemia Qualified Code(s): D72.825 - Bandemia Is this a current diagnosis for this admission?: Yes Plan: Persistent leukocytosis of unknown origin. Patient has leukocytosis > 30,000 since her admission. The patient has been afebrile, normotensive, and nontoxic- appearing. She is currently being treated with appropriate antibiotics for her ESBL UTI. Looking back through the patient's medical records, she has a history of leukocytosis > 20. Concern for malignant etiology, consulted Dr. Garcia. Appreciate their recommendations. (3) Anxiety and depression Is this a current diagnosis for this admission?: Yes Plan: Continue Zoloft and BuSpar (4) Chronic diastolic CHF (congestive heart failure) Is this a current diagnosis for this admission?: Yes Plan: Echocardiogram demonstrates moderate diastolic dysfunction with preserved ejection fraction. The patient appears euvolemic today. Continue cardiac diet. Daily weights, monitor closely for evidence of volume overload. (5) Diabetes Qualifiers: Diabetes mellitus type: type 1 Is this a current diagnosis for this admission?: Yes Plan: Consistent carb diet. Accu-Checks before meals and at bedtime with Humalog for sliding scale coverage. (6) Essential hypertension Is this a current diagnosis for this admission?: Yes Plan: Continue home medications isosorbide, metoprolol. (7) GERD (gastroesophageal reflux disease) Qualifiers: Esophagitis presence: without esophagitis Qualified Code(s): K21.9 - Gastro -esophageal reflux disease without esophagitis Is this a current diagnosis for this admission?: Yes Plan: Continue PPI. Patient denies any abdominal pain or symptoms of reflux (8) Obesity (BMI 30-39.9) Is this a current diagnosis for this admission?: Yes Plan: Dietary discretion is advised. Patient would benefit from meeting with registered dietitians. (9) Hyperlipidemia Qualifiers: Hyperlipidemia type: unspecified Qualified Code(s): E78.5 - Hyperlipidemia , unspecified Is this a current diagnosis for this admission?: Yes Plan: Continue statin therapy. (10) CAD (coronary artery disease) Qualifiers: Coronary Disease-Associated Artery/Lesion type: [place] artery [place] vs. transplanted heart: [place] heart Associated angina: without angina Qualified Code(s): I25.10 - Atherosclerotic heart disease of [place] coronary artery without angina pectoris Is this a current diagnosis for this admission?: Yes Plan: History of acute NSTEMI 07/2017. Patient did not have cardiac catheterization at that time and was treated medically. Continue aspirin, Plavix, statin, beta-lashell. - Time Time Spent with patient: 15-24 minutes Medications reviewed and adjusted accordingly: Yes Anticipated discharge: Home - Inpatient Certification Based on my medical assessment, after consideration of the patient's comorbidities, presenting symptoms, or acuity I expect that the services needed warrant INPATIENT care.: Yes I certify that my determination is in accordance with my understanding of Medicare's requirements for reasonable and necessary INPATIENT services [42 CFR 412.3e].: Yes Medical Necessity: Risk of Complication if Not Cared For in Hospital - Plan Summary Plan Summary: Ultimately, the plan is to discharge the patient back to home.
--- NOTE | 2017-11-03 17:13 | PDOC CONSULTATION ---
Consultation Consult Date: 11/03/17 Consult reason:: Hematology/Oncology consultation was requestd for elevated WBC count. 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 Evaluation in the emergency department reveaed leukocytosis of 38.7 with bandemia and a positive urinalysis. While being monitored in the unit, patient complained of chest pain for which she needed to nitroglycerin sublingual for relief. Subsequent EKGs and cardiac enzymes were negative. negative. Patient did have a nuclear stress test in October 2016 which was negative for any significant ischemia. Today, Patient is still recovering from Sepsis but WBC count has remained elevated. She states that she saw Dr. Mercer in 2015 due to concern for leukemia and Flow Cytometry was normal. No bone marrow biopsy was performed. Looking back in her records, her CBC was completely normal 05/27/2014 with MCV normal at 84. However, since that time, she has had WBC usually in the 20's with the highest 40.3. Her MCV has been remarkably low in the 60s. She has not been anemic and some HCT have been elevated. Past Medical History Cardiac Medical History: Reports: Congestive Heart Failure - Diastolic, Myocardial Infarction - EKG suggests probable prior infarction, Hyperlipidema, Hypertension, Pulmonary Embolism - Distant history Pulmonary Medical History: Denies: Asthma, Chronic Obstructive Pulmonary Disease (COPD), Sleep Apnea EENT Medical History: Reports: None Neurological Medical History: Reports: Ischemic CVA Denies: Seizures Endocrine Medical History: Reports: Diabetes Mellitus Type 1, Diabetes Mellitus Type 2 Denies: Hyperthyroidism, Hypothyroidism Renal/ Medical History: Denies: End Stage Renal Disease Malignancy Medical History: Reports: Skin Cancer - Excised from her nose. 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 Denies: Clostridium Difficile Past Surgical History Past Surgical History: Reports: Appendectomy, Cholecystectomy, Hysterectomy, Tonsillectomy, Other - Cardiac loop recorder, bilateral cataract surgery Social History Lives with: Family Smoking Status: Former Smoker Number of Years Smokin Last Time Smoked: 40 years ago Frequency of Alcohol Use: None Hx Recreational Drug Use: No Drugs: None Hx Prescription Drug Abuse: No - Advance Directive Resuscitation Status: Full Code Family History Family History: CAD, COPD, DM, Hyperlipidemia, Hypertension, Malignancy - Father with lung cancer, Other Parental Family History Reviewed: Yes Children Family History Reviewed: Yes Sibling(s) Family History Reviewed.: Yes Medication/Allergy Home Medications: Buspirone HCl [Buspar 15 mg Tablet] 15 mg PO BID 08/24/17 Clopidogrel Bisulfate [Plavix 75 mg Tablet] 75 mg PO DAILY 08/24/17 Docusate Sodium [Colace 100 mg Capsule] 100 mg PO BID 08/24/17 Gabapentin [Neurontin 300 mg Capsule] 300 mg PO Q12 08/24/17 Hum Insulin NPH/Reg Insulin Hm [Novolin 70-30 100 Unit/ml Vial] 65 units SQ BID 08/24/17 Isosorbide Dinitrate [Isordil Titradose 10 mg Tablet] 30 mg PO DAILY 08/24/17 Losartan Potassium [Cozaar 50 mg Tablet] 50 mg PO DAILY 08/24/17 Metoprolol Tartrate [Lopressor 100 mg Tablet] 100 mg PO Q12 08/24/17 Pantoprazole Sodium [Protonix] 40 mg PO DAILY 08/24/17 Rosuvastatin Calcium [Crestor] 40 mg PO QAM 08/24/17 Sertraline HCl [Zoloft 50 mg Tablet] 50 mg PO DAILY 08/24/17 Sitagliptin Phosphate [Januvia] 100 mg PO DAILY 08/24/17 Trazodone HCl [Desyrel 50 mg Tablet] 50 mg PO HSP PRN 08/24/17 Aspirin [Ecotrin 81 mg EC Tablet] 81 mg PO DAILY tabec 08/29/17 Allergies/Adverse Reactions: morphine Allergy (Verified 10/29/17 11:11) Review of Systems Constitutional: PRESENT: headache(s) Eyes: ABSENT: visual disturbances Ears: ABSENT: hearing changes Nose, Mouth, and Throat: ABSENT: sore throat Cardiovascular: PRESENT: chest pain Respiratory: ABSENT: dyspnea Gastrointestinal: ABSENT: nausea Genitourinary: PRESENT: difficulty urinating Integumentary: ABSENT: rash Neurological: ABSENT: frequent falls Psychiatric: ABSENT: depression Hematologic/Lymphatic: ABSENT: easy bleeding Physical Exam Vital Signs: Temp Pulse Resp BP Pulse Ox 97.8 F 85 16 144/86 H 92 11/03/17 12:11 11/03/17 12:11 11/03/17 12:11 11/03/17 12:11 11/03/17 12:11 Intake & Output 11/02/17 11/03/17 11/04/17 06:59 06:59 06:59 Intake Total 4291 3668 Output Total 5575 5625 Balance -0705 -4251 Weight 101.9 kg 103.3 kg General appearance: PRESENT: no acute distress Exam: Well nourished, 82 year old female. Head exam: PRESENT: atraumatic Eye exam: PRESENT: PERRLA Ear exam: PRESENT: normal external ear exam Mouth exam: PRESENT: moist, tongue midline Teeth exam: ABSENT: poor dentation Throat exam: ABSENT: post pharyngeal erythema Neck exam: ABSENT: tenderness, thyromegaly Respiratory exam: PRESENT: clear to auscultation carmen, unlabored Cardiovascular exam: PRESENT: RRR GI/Abdominal exam: PRESENT: normal bowel sounds, soft. ABSENT: organolmegaly, tenderness Extremities exam: ABSENT: pedal edema Musculoskeletal exam: PRESENT: normal inspection Neurological exam: PRESENT: alert, awake, oriented to person, oriented to place Psychiatric exam: PRESENT: appropriate affect Skin exam: PRESENT: normal color. ABSENT: rash Results Laboratory Results: 11/03/17 06:15 11/03/17 06:15 11/03/17 11/03/17 11/03/17 06:15 06:15 15:35 WBC 34.1 H* RBC 7.49 H Hgb 13.8 Hct 45.3 MCV 61 L MCH 18.4 L MCHC 30.5 L RDW 23.4 H Plt Count 345 Seg Neutrophils % Not Reportable Lymphocytes % Not Reportable Monocytes % Not Reportable Eosinophils % Not Reportable Basophils % Not Reportable Absolute Neutrophils Not Reportable Absolute Lymphocytes Not Reportable Absolute Monocytes Not Reportable Absolute Eosinophils Not Reportable Absolute Basophils Not Reportable Sodium 142.1 Potassium 4.8 Chloride 104 Carbon Dioxide 27 Anion Gap 11 BUN 12 Creatinine 0.68 Est GFR ( Amer) > 60 Est GFR (Non-Af Amer) > 60 Glucose 224 H Calcium 9.4 Magnesium 1.7 Stool Occult Blood NEGATIVE 10/29/17 15:36 Blood Blood Culture - Final NO GROWTH IN 5 DAYS 10/30/17 10/30/17 10/30/17 10:02 10:02 15:12 Creatine Kinase < 20 L CK-MB (CK-2) 0.38 Troponin I < 0.012 < 0.012 10/30/17 10/31/17 10/31/17 21:07 00:50 00:50 Creatine Kinase < 20 L CK-MB (CK-2) 0.47 Troponin I < 0.012 < 0.012 10/31/17 10/31/17 06:00 08:40 Creatine Kinase CK-MB (CK-2) Troponin I < 0.012 < 0.012 Impressions: Chest X-Ray 10/29/17 00:00 IMPRESSION: No evidence of acute cardiopulmonary abnormality. Renal Ultrasound 10/29/17 13:02 IMPRESSION: The 3.5 cm simple appearing cyst in the superior pole of the right kidney, otherwise unremarkable exam. Chest/Abdomen CTA 10/31/17 12:51 IMPRESSION: NORMAL CTA OF THE CHEST. NO PULMONARY EMBOLI. Assessment & Plan - Diagnosis (1) Leukocytosis, unspecified Qualifiers: Leukocytosis type: bandemia Qualified Code(s): D72.825 - Bandemia Is this a current diagnosis for this admission?: Yes Plan: This is chronic and has been stable, at least since 2014. Flow Cytometry in 2016 was normal. This appears to be reactive. (2) RBC microcytosis Is this a current diagnosis for this admission?: Yes Plan: Without evidence of anemia. Very few things cause this degree of chronic microcytosis. Since this was normal in 2013, I do not believe it is due to thalassemia. I will check Ferritin and ESR today. We discussed bone marrow biopsy. Unless profound iron deficiency is found, I would plan bone marrow biopsy tomorrow. - Plan Summary Plan Summary: Thank you for this consultation. I will continue to follow her with you. Please call me directly with any questions or concerns.
--- NOTE | 2017-11-03 20:12 | PDOC PROGRESS REPORT ---
Subjective Progress Note for:: 11/02/17 Subjective:: Patient seems to be doing better with gradual improvement. Pt is denying any chest arm or neck discomfort. Patient denying any PND, orthopnea. Patient denied any sustained palpitations, dizziness, syncope, near syncope. Patient denying any fever chills. Patient denying any other significant discomfort. Patient is maintaining sinus rhythm. Review of systems: Rest review of systems negative. Medications: Medications have been reviewed. Reason For Visit: PYELONEPHRITIS, BANDEMIA Physical Exam Vital Signs: Temp Pulse Resp BP Pulse Ox 97.6 F 86 20 151/75 H 97 11/02/17 16:32 11/02/17 19:00 11/02/17 16:32 11/02/17 16:32 11/02/17 16:32 Intake & Output 11/01/17 11/02/17 11/03/17 06:59 06:59 06:59 Intake Total 2621 4291 2585 Output Total 3490 5575 3200 Balance -869 -1284 -615 Weight 103.1 kg 101.9 kg Exam: GENERAL: well-nourished and in no acute distress. Alert and oriented x3 HEAD: Atraumatic, normocephalic. EYES: Pupils equal round and reactive to light, extraocular movements intact, sclera anicteric, conjunctiva are normal. ENT: TMs normal, nares patent, oropharynx clear without exudates. Moist mucous membranes. No oral ulcerations or bleeding gums noted NECK: supple without lymphadenopathy. Trachea is central. No cervical or axillary lymphadenopathy noted. Carotids are 2+, JVD WNL LUNGS: Respiration seems nonlabored, no significant accessory muscle action noted. Breath sounds clear to auscultation bilaterally and equal noted. No wheezes rales or rhonchi noted. No significant dullness noted on percussion. CHEST: Palpation of the chest wall shows no significant chest wall tenderness. No other significant abnormalities noted. HEART: [place] MANAGER WOUND, No PSH, 1/6 VIRAL aortic area, 1/6 [place] systolic murmur mitral area, no rubs, no gallops. ABDOMEN: Soft, no significant tenderness appreciated, normoactive bowel sounds. No guarding, no rebound. No rigidity noted . No masses appreciated. EXTREMITIES: Pedal pulses are 1-2+, no calf tenderness noted. No clubbing or cyanosis.trace to 1+ pedal edema noted NEUROLOGICAL: Focused neurological exam showed no significant neurologic deficit. Normal speech, no focal weakness appreciated. PSYCH: Normal mood, normal affect. Judgment and insight within normal limits. SKIN: No significant ecchymosis, skin is noted to be warm. MUSCULOSKELETAL EXAM: No significant acute joint swelling noted. Results Laboratory Results: 11/02/17 04:54 11/01/17 04:57 11/02/17 11/02/17 11/02/17 04:54 04:54 05:55 WBC 31.3 H* RBC 7.32 H Hgb 13.5 Hct 44.2 MCV 60 L MCH 18.4 L MCHC 30.5 L RDW 23.6 H Plt Count 274 Phosphorus 2.9 Urine Color STRAW Urine Appearance CLEAR Urine pH 7.0 Ur Specific [place] 1.005 Urine Protein NEGATIVE Urine Glucose (UA) NEGATIVE Urine Ketones NEGATIVE Urine Blood NEGATIVE Urine Nitrite NEGATIVE Ur Leukocyte Esterase TRACE H Urine WBC (Auto) 7 Urine RBC (Auto) 0 10/30/17 10/30/17 10/30/17 10:02 10:02 15:12 Creatine Kinase < 20 L CK-MB (CK-2) 0.38 Troponin I < 0.012 < 0.012 10/30/17 10/31/17 10/31/17 21:07 00:50 00:50 Creatine Kinase < 20 L CK-MB (CK-2) 0.47 Troponin I < 0.012 < 0.012 10/31/17 10/31/17 06:00 08:40 Creatine Kinase CK-MB (CK-2) Troponin I < 0.012 < 0.012 EKG Comments: Telemetry shows sinus rhythm without any sustained tachycardia or bradycardia. Impressions: Chest X-Ray 10/29/17 00:00 IMPRESSION: No evidence of acute cardiopulmonary abnormality. Renal Ultrasound 10/29/17 13:02 IMPRESSION: The 3.5 cm simple appearing cyst in the superior pole of the right kidney, otherwise unremarkable exam. Chest/Abdomen CTA 10/31/17 12:51 IMPRESSION: NORMAL CTA OF THE CHEST. NO PULMONARY EMBOLI. Assessment & Plan - Diagnosis (1) Chest pain Qualifiers: Chest pain type: unspecified Qualified Code(s): R07.9 - Chest pain, unspecified Is this a current diagnosis for this admission?: Yes (2) Hypertension Qualifiers: Hypertension type: essential hypertension Qualified Code(s): I10 - Essential (primary) hypertension Is this a current diagnosis for this admission?: Yes (3) Anxiety disorder Qualifiers: Anxiety disorder type: generalized anxiety disorder Qualified Code(s): F41.1 - Generalized anxiety disorder Is this a current diagnosis for this admission?: Yes (4) CAD (coronary artery disease) Qualifiers: Coronary Disease-Associated Artery/Lesion type: [place] artery [place] vs. transplanted heart: [place] heart Associated angina: without angina Qualified Code(s): I25.10 - Atherosclerotic heart disease of [place] coronary artery without angina pectoris Is this a current diagnosis for this admission?: Yes (5) Diabetes mellitus type II, controlled Qualifiers: Diabetes mellitus complication status: with circulatory complication Diabetes mellitus complication detail: with other circulatory complications Diabetes mellitus security flex utility officer insulin use: without security flex utility officer use Qualified Code( s): E11.59 - Type 2 diabetes mellitus with other circulatory complications (6) Essential hypertension Is this a current diagnosis for this admission?: Yes (7) Gastroesophageal reflux disease Qualifiers: Esophagitis presence: esophagitis presence not specified Qualified Code(s) : K21.9 - Gastro-esophageal reflux disease without esophagitis Is this a current diagnosis for this admission?: Yes (8) History of CVA (cerebrovascular accident) Is this a current diagnosis for this admission?: Yes - Notes Notes: Chest pain: So far EKGs and cardiac enzymes are negative. At this point recommend proton pump inhibitor empirically, treatment of possible anxiety. Patient already had a nuclear stress test in July. These results were reviewed with the patient and was essentially negative. Currently patient has been chest pain-free. Patient to report any recurrence of chest pain. Hypertension: Recommend good control of blood pressure but avoid any hypo- tension or severe hypertension. Diabetes: Recommend good control of blood sugar. However should avoid any hypoglycemia and hyperglycemia. Patient being expertly managed by primary care M.D/hospitalist Gastroesophageal reflux disease: Continue proton pump inhibitor. History of CVA: Currently is stable. Sepsis and pyelonephritis: Continue antibiotic therapy.. - Time Time with patient: 15-25 minutes - CODE STATUS was discussed, patient remains full code. Surrogate decision-maker unchanged. Multiple medical problems were addressed. More than 50% of the time spent coordinating care, discussing management plans with involved caregivers. Management plans discussed with involved personnels. Medical decision making was of moderate to high complexity , patient's has multiple comorbidities. Medications reviewed and adjusted accordingly: Yes
--- NOTE | 2017-11-03 20:19 | PDOC PROGRESS REPORT ---
Subjective Progress Note for:: 11/03/17 Subjective:: Patient seems to be doing better with gradual improvement. Pt is denying any chest arm or neck discomfort. Patient denying any PND, orthopnea. Patient denied any sustained palpitations, dizziness, syncope, near syncope. Patient denying any fever chills. Patient denying any other significant discomfort. Patient is maintaining sinus rhythm. Review of systems: Rest review of systems negative. Medications: Medications have been reviewed. Reason For Visit: PYELONEPHRITIS, BANDEMIA Physical Exam Vital Signs: Temp Pulse Resp BP Pulse Ox 98.2 F 79 18 162/69 H 95 11/03/17 15:18 11/03/17 20:09 11/03/17 15:18 11/03/17 15:18 11/03/17 15:18 Intake & Output 11/02/17 11/03/17 11/04/17 06:59 06:59 06:59 Intake Total 4291 3668 2503 Output Total 5538 5637 2050 Balance -1284 -2127 453 Weight 101.9 kg 103.3 kg Exam: GENERAL: well-nourished and in no acute distress. Alert and oriented x3 HEAD: Atraumatic, normocephalic. EYES: Pupils equal round and reactive to light, extraocular movements intact, sclera anicteric, conjunctiva are normal. ENT: TMs normal, nares patent, oropharynx clear without exudates. Moist mucous membranes. No oral ulcerations or bleeding gums noted NECK: supple without lymphadenopathy. Trachea is central. No cervical or axillary lymphadenopathy noted. Carotids are 2+, JVD WNL LUNGS: Respiration seems nonlabored, no significant accessory muscle action noted. Breath sounds clear to auscultation bilaterally and equal noted. No wheezes rales or rhonchi noted. No significant dullness noted on percussion. CHEST: Palpation of the chest wall shows no significant chest wall tenderness. No other significant abnormalities noted. HEART: [place] [employer], No PSH, 1/6 VIRAL aortic area, 1/6 pineda systolic murmur mitral area, no rubs, no gallops. ABDOMEN: Soft, no significant tenderness appreciated, normoactive bowel sounds. No guarding, no rebound. No rigidity noted . No masses appreciated. EXTREMITIES: Pedal pulses are 1-2+, no calf tenderness noted. No clubbing or cyanosis.trace to 1+ pedal edema noted NEUROLOGICAL: Focused neurological exam showed no significant neurologic deficit. Normal speech, no focal weakness appreciated. PSYCH: Normal mood, normal affect. Judgment and insight within normal limits. SKIN: No significant ecchymosis, skin is noted to be warm. MUSCULOSKELETAL EXAM: No significant acute joint swelling noted. Results Laboratory Results: 11/03/17 06:15 11/03/17 06:15 11/03/17 11/03/17 11/03/17 06:15 06:15 06:15 WBC 34.1 H* RBC 7.49 H Hgb 13.8 Hct 45.3 MCV 61 L MCH 18.4 L MCHC 30.5 L RDW 23.4 H Plt Count 345 Seg Neutrophils % Not Reportable Lymphocytes % Not Reportable Monocytes % Not Reportable Eosinophils % Not Reportable Basophils % Not Reportable Absolute Neutrophils Not Reportable Absolute Lymphocytes Not Reportable Absolute Monocytes Not Reportable Absolute Eosinophils Not Reportable Absolute Basophils Not Reportable Sodium 142.1 Potassium 4.8 Chloride 104 Carbon Dioxide 27 Anion Gap 11 BUN 12 Creatinine 0.68 Est GFR ( Amer) > 60 Est GFR (Non-Af Amer) > 60 Glucose 224 H Calcium 9.4 Magnesium 1.7 Ferritin 21.70 Stool Occult Blood 11/03/17 15:35 WBC RBC Hgb Hct MCV MCH MCHC RDW Plt Count Seg Neutrophils % Lymphocytes % Monocytes % Eosinophils % Basophils % Absolute Neutrophils Absolute Lymphocytes Absolute Monocytes Absolute Eosinophils Absolute Basophils Sodium Potassium Chloride Carbon Dioxide Anion Gap BUN Creatinine Est GFR ( Amer) Est GFR (Non-Af Amer) Glucose Calcium Magnesium Ferritin Stool Occult Blood NEGATIVE 10/29/17 15:36 Blood Blood Culture - Final NO GROWTH IN 5 DAYS 10/30/17 10/30/17 10/30/17 10:02 10:02 15:12 Creatine Kinase < 20 L CK-MB (CK-2) 0.38 Troponin I < 0.012 < 0.012 10/30/17 10/31/17 10/31/17 21:07 00:50 00:50 Creatine Kinase < 20 L CK-MB (CK-2) 0.47 Troponin I < 0.012 < 0.012 10/31/17 10/31/17 06:00 08:40 Creatine Kinase CK-MB (CK-2) Troponin I < 0.012 < 0.012 EKG Comments: Telemetry shows sinus rhythm without any sustained tachycardia or bradycardia. Impressions: Chest X-Ray 10/29/17 00:00 IMPRESSION: No evidence of acute cardiopulmonary abnormality. Renal Ultrasound 10/29/17 13:02 IMPRESSION: The 3.5 cm simple appearing cyst in the superior pole of the right kidney, otherwise unremarkable exam. Chest/Abdomen CTA 10/31/17 12:51 IMPRESSION: NORMAL CTA OF THE CHEST. NO PULMONARY EMBOLI. Assessment & Plan - Diagnosis (1) Chest pain Qualifiers: Chest pain type: unspecified Qualified Code(s): R07.9 - Chest pain, unspecified Is this a current diagnosis for this admission?: Yes (2) Hypertension Qualifiers: Hypertension type: essential hypertension Qualified Code(s): I10 - Essential (primary) hypertension Is this a current diagnosis for this admission?: Yes (3) Anxiety disorder Qualifiers: Anxiety disorder type: generalized anxiety disorder Qualified Code(s): F41.1 - Generalized anxiety disorder Is this a current diagnosis for this admission?: Yes (4) CAD (coronary artery disease) Qualifiers: Coronary Disease-Associated Artery/Lesion type: [place] artery [place] vs. transplanted heart: [place] heart Associated angina: without angina Qualified Code(s): I25.10 - Atherosclerotic heart disease of [place] coronary artery without angina pectoris Is this a current diagnosis for this admission?: Yes (5) Diabetes mellitus type II, controlled Qualifiers: Diabetes mellitus complication status: with circulatory complication Diabetes mellitus complication detail: with other circulatory complications Diabetes mellitus senior care insulin use: without senior care use Qualified Code( s): E11.59 - Type 2 diabetes mellitus with other circulatory complications (6) Essential hypertension Is this a current diagnosis for this admission?: Yes (7) Gastroesophageal reflux disease Qualifiers: Esophagitis presence: esophagitis presence not specified Qualified Code(s) : K21.9 - Gastro-esophageal reflux disease without esophagitis Is this a current diagnosis for this admission?: Yes (8) History of CVA (cerebrovascular accident) Is this a current diagnosis for this admission?: Yes - Notes Notes: Chest pain: Patient has been free of chest pain over the last several days. Feel that chest pain most likely related to gastroesophageal reflux disease and noncardiac. Patient already had a nuclear stress test in July. These results were reviewed with the patient and was essentially negative. Currently patient has been chest pain-free. Patient to report any recurrence of chest pain. Hypertension: Recommend good control of blood pressure but avoid any hypo- tension or severe hypertension. Diabetes: Recommend good control of blood sugar. However should avoid any hypoglycemia and hyperglycemia. Patient being expertly managed by primary care M.Artemio/hospitalist Gastroesophageal reflux disease: Continue proton pump inhibitor. History of CVA: Currently is stable. Sepsis and pyelonephritis: Continue antibiotic therapy. Will sign off. Please reconsult if needed. - Time Time with patient: 15-25 minutes - CODE STATUS was discussed, patient remains full code. Surrogate decision-maker unchanged. Multiple medical problems were addressed. More than 50% of the time spent coordinating care, discussing management plans with involved caregivers. Management plans discussed with involved personnels. Medical decision making was of moderate to high complexity , patient's has multiple comorbidities. Medications reviewed and adjusted accordingly: Yes
[2017-11-03] MEDS: ZOLPIDEM TARTRATE 5 MG TABLET PO PRN (21:27)
[2017-11-03] MEDS: ATORVASTATIN CALCIUM 80 MG TABLET PO SCH (21:28)
[2017-11-04] MEDS: CEFAZOLIN 1 GM/D5W RTU 1 GM/50 ML RTUPB IV SCH ×3 (01:35→17:39)
[2017-11-04] MEDS: LANSOPRAZOLE 30 MG TAB.RAP.DR PO SCH (05:11)
[2017-11-04 05:28] LABS: HEMATOCRIT 43.8 % (36.0-47.0); HEMOGLOBIN 13.3 g/dL (12.0-15.5); MEAN CORPUSCULAR HEMOGLOBIN 18.4 pg (27.0-33.4); MEAN CORPUSCULAR HGB CONC 30.4 g/dL (32.0-36.0); MEAN CORPUSCULAR VOLUME 60 fl (80-97); PLATELET COUNT 312 10^3/uL (150-450); RED BLOOD COUNT 7.24 10^6/uL (3.72-5.28); RED CELL DISTRIBUTION WIDTH 23.4 % (11.5-14.0)
[2017-11-04 05:36] LABS: ANION GAP 7 (5-19); BLOOD UREA NITROGEN 15 mg/dL (7-20); CALCIUM 9.1 mg/dL (8.4-10.2); CARBON DIOXIDE 27 mmol/L (22-30); CHLORIDE 106 mmol/L (98-107); GLUCOSE 279 mg/dL (75-110); POTASSIUM 4.2 mmol/L (3.6-5.0)
[2017-11-04 05:58] LABS: WHITE BLOOD COUNT 34.6 10^3/uL (4.0-10.5)
[2017-11-04] MEDS: ACETAMINOPHEN 325 MG TABLET PO PRN ×2 (06:26→21:34)
--- NOTE | 2017-11-04 06:41 | PDOC PROGRESS REPORT ---
Subjective Progress Note for:: 11/04/17 Subjective:: Patient reports severe headache this morning. Otherwise, no change. Reason For Visit: PYELONEPHRITIS, BANDEMIA Physical Exam Vital Signs: Temp Pulse Resp BP Pulse Ox 99.2 F 78 16 188/84 H 95 11/04/17 04:07 11/04/17 04:07 11/04/17 04:07 11/04/17 04:07 11/04/17 04:07 Intake & Output 11/02/17 11/03/17 11/04/17 06:59 06:59 06:59 Intake Total 4291 3668 4203 Output Total 0268 5625 8464 Balance -1622 -1143 253 Weight 101.9 kg 103.3 kg General appearance: PRESENT: no acute distress Respiratory exam: PRESENT: clear to auscultation carmen, unlabored Cardiovascular exam: PRESENT: RRR GI/Abdominal exam: PRESENT: hyperactive bowel sounds, soft. ABSENT: tenderness Extremities exam: ABSENT: pedal edema Psychiatric exam: PRESENT: appropriate affect Results Laboratory Results: 11/04/17 04:44 11/04/17 04:44 11/03/17 11/03/17 11/03/17 06:15 06:15 06:15 WBC 34.1 H* RBC 7.49 H Hgb 13.8 Hct 45.3 MCV 61 L MCH 18.4 L MCHC 30.5 L RDW 23.4 H Plt Count 345 Seg Neutrophils % Not Reportable Lymphocytes % Not Reportable Monocytes % Not Reportable Eosinophils % Not Reportable Basophils % Not Reportable Absolute Neutrophils Not Reportable Absolute Lymphocytes Not Reportable Absolute Monocytes Not Reportable Absolute Eosinophils Not Reportable Absolute Basophils Not Reportable Sodium 142.1 Potassium 4.8 Chloride 104 Carbon Dioxide 27 Anion Gap 11 BUN 12 Creatinine 0.68 Est GFR ( Amer) > 60 Est GFR (Non-Af Amer) > 60 Glucose 224 H Calcium 9.4 Magnesium 1.7 Ferritin 21.70 Stool Occult Blood 11/03/17 11/04/17 11/04/17 15:35 04:44 04:44 WBC 34.6 H* RBC 7.24 H Hgb 13.3 Hct 43.8 MCV 60 L MCH 18.4 L MCHC 30.4 L RDW 23.4 H Plt Count 312 Seg Neutrophils % Lymphocytes % Monocytes % Eosinophils % Basophils % Absolute Neutrophils Absolute Lymphocytes Absolute Monocytes Absolute Eosinophils Absolute Basophils Sodium 140.0 Potassium 4.2 Chloride 106 Carbon Dioxide 27 Anion Gap 7 BUN 15 Creatinine 0.80 Est GFR ( Amer) > 60 Est GFR (Non-Af Amer) > 60 Glucose 279 H Calcium 9.1 Magnesium 1.6 Ferritin Stool Occult Blood NEGATIVE 10/29/17 15:36 Blood Blood Culture - Final NO GROWTH IN 5 DAYS 10/30/17 10/30/17 10/30/17 10:02 10:02 15:12 Creatine Kinase < 20 L CK-MB (CK-2) 0.38 Troponin I < 0.012 < 0.012 10/30/17 10/31/17 10/31/17 21:07 00:50 00:50 Creatine Kinase < 20 L CK-MB (CK-2) 0.47 Troponin I < 0.012 < 0.012 10/31/17 10/31/17 06:00 08:40 Creatine Kinase CK-MB (CK-2) Troponin I < 0.012 < 0.012 Impressions: Chest X-Ray 10/29/17 00:00 IMPRESSION: No evidence of acute cardiopulmonary abnormality. Renal Ultrasound 10/29/17 13:02 IMPRESSION: The 3.5 cm simple appearing cyst in the superior pole of the right kidney, otherwise unremarkable exam. Chest/Abdomen CTA 10/31/17 12:51 IMPRESSION: NORMAL CTA OF THE CHEST. NO PULMONARY EMBOLI. Assessment & Plan - Diagnosis (1) Leukocytosis, unspecified Qualifiers: Leukocytosis type: bandemia Qualified Code(s): D72.825 - Bandemia Is this a current diagnosis for this admission?: Yes Plan: Unchanged and stable over last 2-3 years. ESR was negative. Prior Flow Cytometry was normal. (2) RBC microcytosis Is this a current diagnosis for this admission?: Yes Plan: Her ferritin is low, however, she is not anemic. I am afraid that giving her iron may actually increase her HGB/HCT. I agree that Bone Marrow Biopsy is a good idea. I will arrange ERLIN. I have explained that if she is ready for discharge prior to results, I will follow-up with her as outpatient for this. - Plan Summary Plan Summary: I will continue to follow with you.
[2017-11-04 06:42] LABS: APPEARANCE,URINE CLEAR; BILIRUBIN,URINE NEGATIVE (NEGATIVE); COLOR,URINE YELLOW; GLUCOSE, URINE 50 mg/dL (NEGATIVE); KETONES,URINE NEGATIVE (NEGATIVE); LEUKOCYTE ESTERASE,URINE NEGATIVE (NEGATIVE); NITRITE,URINE NEGATIVE (NEGATIVE); PROTEIN,URINE NEGATIVE (NEGATIVE); URINE SPECIFIC GRAVITY 1.005; UROBILINOGEN,URINE NEGATIVE mg/dL (<2.0)
[2017-11-04] MEDS: INSULIN LISPRO 100 UNIT/ML 3 ML VIAL SUBCUT PRN ×4 (08:18→22:12)
[2017-11-04] MEDS: ONDANSETRON HCL INJ/PF 4 MG/2 ML SDV IV PRN (08:19)
[2017-11-04] MEDS: HYDRALAZINE HCL INJ/PF 20 MG/1 ML SDV IV PRN (08:35)
[2017-11-04] MEDS: NORMAL SALINE 1000 ML 1,000 ML IV PRN ×2 (09:50→20:49)
[2017-11-04] MEDS: NYSTATIN/DEXAMETH/DIPHEN SUSP 120 ML PO SCH ×4 (09:52→21:17)
[2017-11-04] MEDS: BUSPIRONE HCL 10 MG TABLET PO SCH ×2 (09:52→17:39)
[2017-11-04] MEDS: ISOSORBIDE DINITRATE 20 MG TABLET PO SCH (09:53)
[2017-11-04] MEDS: SERTRALINE HCL 50 MG TABLET PO SCH (09:56)
[2017-11-04] MEDS: METOPROLOL TARTRATE 100 MG TABLET PO SCH ×2 (09:56→21:19)
[2017-11-04] MEDS: GABAPENTIN 300 MG CAPSULE PO SCH ×2 (09:57→21:19)
[2017-11-04] MEDS: LOSARTAN POTASSIUM 50 MG TABLET PO SCH (09:58)
[2017-11-04] MEDS: DOCUSATE SODIUM 100 MG CAPSULE PO SCH ×2 (10:00→17:39)
[2017-11-04] MEDS: FAMOTIDINE 20 MG TABLET PO SCH ×2 (10:00→21:19)
[2017-11-04] MEDS: OXYCODONE HCL IR 5 MG TABLET PO PRN (10:11)
--- NOTE | 2017-11-04 14:00 | Operative Report ---
Operative Report DATE OF SURGERY: 11/04/17 PREOPERATIVE DIAGNOSIS: Leukocytosis and microcytic red blood cells. POSTOPERATIVE DIAGNOSIS: Same OPERATION: Bone Marrow aspiration and biopsy SURGEON: LAUREN GRIMES ANESTHESIA: Local - 10 cc 1% Lidocaine TISSUE REMOVED OR ALTERED: Bone marrow aspirate and core. COMPLICATIONS: No immediate complications. PROCEDURE: After informed consent was obtained, patient was prepped and draped in sterile fashion. Left posterior iliac crest was anesthetized with lidocaine and bone marrow aspirate was performed. Bone marrow biopsy was then performed using Jamshidi needle. Pressure bandage was applied. Patient tolerated the procedure well.
--- NOTE | 2017-11-04 17:35 | PDOC PROGRESS REPORT ---
Subjective Progress Note for:: 11/04/17 Subjective:: ORACIO PEDROZA is a 82-year-old female who presented to the hospital for pyelonephritis on 10/29/2017, she subsequently developed acute chest pain with EKG changes the following day. Patient was briefly in the ICU on a nitro drip, serial troponins were negative, cardiology consulted. Patient was seen this morning on rounds, she is sitting upright in bed on room air. She stated that she has no chest pain this morning and is otherwise complaint free. The patient reports that she is able to get out of bed to chair. The patient's WBC is 34.6 today, it has been consistently elevated since her arrival. Looking back in the patient's medical records, she has a history of leukocytosis > 20. Concern for malignancy - Dr. Garcia from oncology was consulted and performed a bone marrow biopsy at the bedside today. Patient will need to stay in the hospital for at least 24 hours following the biopsy, as it was performed while the patient is currently still taking Plavix. Reason For Visit: PYELONEPHRITIS, BANDEMIA Physical Exam Vital Signs: Temp Pulse Resp BP Pulse Ox 98.4 F 88 20 158/71 H 90 L 11/04/17 11:36 11/04/17 14:00 11/04/17 11:36 11/04/17 11:36 11/04/17 11:36 Intake & Output 11/03/17 11/04/17 11/05/17 06:59 06:59 06:59 Intake Total 3668 4503 237 Output Total 5625 5250 725 Balance -1957 -747 -488 Weight 103.3 kg 104.2 kg General appearance: PRESENT: no acute distress Head exam: PRESENT: atraumatic Eye exam: PRESENT: conjunctiva pink Mouth exam: PRESENT: moist Neck exam: PRESENT: full ROM Respiratory exam: PRESENT: clear to auscultation carmen Cardiovascular exam: PRESENT: +S1, +S2 Pulses: PRESENT: normal radial pulses, normal dorsalis pedis pul Vascular exam: PRESENT: normal capillary refill GI/Abdominal exam: PRESENT: normal bowel sounds, soft Rectal exam: PRESENT: deferred Extremities exam: PRESENT: full ROM Musculoskeletal exam: PRESENT: full ROM Neurological exam: PRESENT: alert, awake, oriented to person, oriented to place , oriented to time, oriented to situation, normal gait Psychiatric exam: PRESENT: appropriate affect Skin exam: PRESENT: normal color Results Laboratory Results: 11/04/17 04:44 11/04/17 04:44 11/03/17 11/04/17 11/04/17 06:15 04:44 04:44 WBC 34.6 H* RBC 7.24 H Hgb 13.3 Hct 43.8 MCV 60 L MCH 18.4 L MCHC 30.4 L RDW 23.4 H Plt Count 312 Sodium 140.0 Potassium 4.2 Chloride 106 Carbon Dioxide 27 Anion Gap 7 BUN 15 Creatinine 0.80 Est GFR ( Amer) > 60 Est GFR (Non-Af Amer) > 60 Glucose 279 H Calcium 9.1 Magnesium 1.6 Ferritin 21.70 Urine Color Urine Appearance Urine pH Ur Specific Carmen Urine Protein Urine Glucose (UA) Urine Ketones Urine Blood Urine Nitrite Ur Leukocyte Esterase Urine WBC (Auto) Urine RBC (Auto) 11/04/17 06:10 WBC RBC Hgb Hct MCV MCH MCHC RDW Plt Count Sodium Potassium Chloride Carbon Dioxide Anion Gap BUN Creatinine Est GFR ( Amer) Est GFR (Non-Af Amer) Glucose Calcium Magnesium Ferritin Urine Color YELLOW Urine Appearance CLEAR Urine pH 7.0 Ur Specific Carmen 1.005 Urine Protein NEGATIVE Urine Glucose (UA) 50 H Urine Ketones NEGATIVE Urine Blood LARGE H Urine Nitrite NEGATIVE Ur Leukocyte Esterase NEGATIVE Urine WBC (Auto) 11 Urine RBC (Auto) >182 10/29/17 15:36 Blood Blood Culture - Final NO GROWTH IN 5 DAYS 10/30/17 10/30/17 10/30/17 10:02 10:02 15:12 Creatine Kinase < 20 L CK-MB (CK-2) 0.38 Troponin I < 0.012 < 0.012 10/30/17 10/31/17 10/31/17 21:07 00:50 00:50 Creatine Kinase < 20 L CK-MB (CK-2) 0.47 Troponin I < 0.012 < 0.012 10/31/17 10/31/17 06:00 08:40 Creatine Kinase CK-MB (CK-2) Troponin I < 0.012 < 0.012 Impressions: Chest X-Ray 10/29/17 00:00 IMPRESSION: No evidence of acute cardiopulmonary abnormality. Renal Ultrasound 10/29/17 13:02 IMPRESSION: The 3.5 cm simple appearing cyst in the superior pole of the right kidney, otherwise unremarkable exam. Chest/Abdomen CTA 10/31/17 12:51 IMPRESSION: NORMAL CTA OF THE CHEST. NO PULMONARY EMBOLI. Status: Imported from PACS Assessment & Plan - Diagnosis (1) Chest pain Qualifiers: Chest pain type: unspecified Qualified Code(s): R07.9 - Chest pain, unspecified Is this a current diagnosis for this admission?: Yes Plan: Resolved. The patient was previously complaining of chest pain, EKG initially demonstrated ST elevation in V2-3 without reciprocal changes. Patient was initially treated as an acute CO, placed on a heparin drip, has since been transitioned to p.o. Plavix, heparin drip has been discontinued. Serial troponins have been negative, no longer trending. Cardiology consulted, appreciate their recommendations. Echocardiogram shows grade II/IV mild diastolic dysfunction, otherwise normal. Cardiac stress test done in , no need to repeat. Continue ASA, Plavix, statin, and beta lashell post CO. Patient will need close cardiology follow-up upon discharge (2) Leukocytosis, unspecified Qualifiers: Leukocytosis type: bandemia Qualified Code(s): D72.825 - Bandemia Is this a current diagnosis for this admission?: Yes Plan: Persistent leukocytosis of unknown origin. Patient has leukocytosis > 30,000 since her admission. The patient has been afebrile, normotensive, and nontoxic- appearing. She is currently being treated with appropriate antibiotics for her ESBL UTI. Looking back through the patient's medical records, she has a history of leukocytosis > 20. Concern for malignant etiology, consulted Dr. Garcia. She performed a bone marrow biopsy today. (3) Anxiety and depression Is this a current diagnosis for this admission?: Yes Plan: Continue Zoloft and BuSpar (4) Chronic diastolic CHF (congestive heart failure) Is this a current diagnosis for this admission?: Yes Plan: Echocardiogram demonstrates moderate diastolic dysfunction with preserved ejection fraction. The patient appears euvolemic today. Continue cardiac diet. Daily weights, monitor closely for evidence of volume overload. (5) Diabetes Qualifiers: Diabetes mellitus type: type 1 Is this a current diagnosis for this admission?: Yes Plan: Consistent carb diet. Accu-Checks before meals and at bedtime with Humalog for sliding scale coverage. (6) Essential hypertension Is this a current diagnosis for this admission?: Yes Plan: Continue home medications isosorbide, metoprolol. Added patient's home dose of Cozaar and PRN IV hydralazine. (7) GERD (gastroesophageal reflux disease) Qualifiers: Esophagitis presence: without esophagitis Qualified Code(s): K21.9 - Gastro -esophageal reflux disease without esophagitis Is this a current diagnosis for this admission?: Yes Plan: Continue PPI. Patient denies any abdominal pain or symptoms of reflux (8) Obesity (BMI 30-39.9) Is this a current diagnosis for this admission?: Yes Plan: Dietary discretion is advised. Patient would benefit from meeting with registered dietitians. (9) Hyperlipidemia Qualifiers: Hyperlipidemia type: unspecified Qualified Code(s): E78.5 - Hyperlipidemia , unspecified Is this a current diagnosis for this admission?: Yes Plan: Continue statin therapy. (10) CAD (coronary artery disease) Qualifiers: Coronary Disease-Associated Artery/Lesion type: [place] artery [place] vs. transplanted heart: [place] heart Associated angina: without angina Qualified Code(s): I25.10 - Atherosclerotic heart disease of [place] coronary artery without angina pectoris Is this a current diagnosis for this admission?: Yes Plan: History of acute NSTEMI 07/2017. Patient did not have cardiac catheterization at that time and was treated medically. Continue aspirin, Plavix, statin, beta-lashell. - Time Time Spent with patient: 15-24 minutes Anticipated discharge: Home - Inpatient Certification Based on my medical assessment, after consideration of the patient's comorbidities, presenting symptoms, or acuity I expect that the services needed warrant INPATIENT care.: Yes I certify that my determination is in accordance with my understanding of Medicare's requirements for reasonable and necessary INPATIENT services [42 CFR 412.3e].: Yes Medical Necessity: Risk of Complication if Not Cared For in Hospital - Plan Summary Plan Summary: Ultimately, the plan is to discharge the patient home
[2017-11-04] MEDS: ATORVASTATIN CALCIUM 80 MG TABLET PO SCH (21:18)
[2017-11-04] MEDS: ZOLPIDEM TARTRATE 5 MG TABLET PO PRN (21:19)
[2017-11-05] MEDS: HYDRALAZINE HCL INJ/PF 20 MG/1 ML SDV IV PRN ×2 (00:11→08:36)
[2017-11-05] MEDS: CEFAZOLIN 1 GM/D5W RTU 1 GM/50 ML RTUPB IV SCH ×3 (01:07→17:07)
[2017-11-05] MEDS: OXYCODONE HCL IR 5 MG TABLET PO PRN ×2 (04:13→08:05)
[2017-11-05] MEDS: LANSOPRAZOLE 30 MG TAB.RAP.DR PO SCH ×2 (05:17→17:06)
[2017-11-05 07:03] LABS: HEMOGLOBIN 13.5 g/dL (12.0-15.5); MEAN CORPUSCULAR HEMOGLOBIN 18.4 pg (27.0-33.4); MEAN CORPUSCULAR HGB CONC 30.6 g/dL (32.0-36.0); MEAN CORPUSCULAR VOLUME 60 fl (80-97); PLATELET COUNT 310 10^3/uL (150-450); RED CELL DISTRIBUTION WIDTH 23.7 % (11.5-14.0)
[2017-11-05 07:10] LABS: ANION GAP 12 (5-19); BLOOD UREA NITROGEN 14 mg/dL (7-20); CALCIUM 9.4 mg/dL (8.4-10.2); CARBON DIOXIDE 25 mmol/L (22-30); CHLORIDE 104 mmol/L (98-107); GLUCOSE 223 mg/dL (75-110); POTASSIUM 4.5 mmol/L (3.6-5.0); SODIUM 140.7 mmol/L (137-145)
[2017-11-05] MEDS: INSULIN LISPRO 100 UNIT/ML 3 ML VIAL SUBCUT PRN ×4 (08:05→22:12)
[2017-11-05 08:22] LABS: ABSOLUTE LYMPHOCYTES# (MANUAL) 1.4 10^3/uL (0.5-4.7); ABSOLUTE MONOCYTES # (MANUAL) 1.4 10^3/uL (0.1-1.4); ABSOLUTE NEUTROPHILS# (MANUAL) 30.8 10^3/uL (1.7-8.2); BAND NEUTROPHILS % (MANUAL) 7 % (3-5); BASOPHILS % (MANUAL) 2 % (0-2); EOSINOPHILS % (MANUAL) 1 % (0-6); LYMPHOCYTES % (MANUAL) 3 % (13-45); MONOCYTES % (MANUAL) 4 % (3-13); SEGMENTED NEUTROPHILS % (MAN) 82 % (42-78); TOTAL CELLS COUNTED 100
[2017-11-05 08:24] LABS: HYPOCHROMASIA 1+
[2017-11-05 08:25] LABS: OVALOCYTES SLIGHT; PLATELET COMMENT ADEQUATE; POIKILOCYTOSIS 1+; POLYCHROMASIA SLIGHT; TEAR DROP CELLS SLIGHT
[2017-11-05 08:27] LABS: RED BLOOD COUNT 7.32 10^6/uL (3.72-5.28); WHITE BLOOD COUNT 34.6 10^3/uL (4.0-10.5)
[2017-11-05] MEDS: DOCUSATE SODIUM 100 MG CAPSULE PO SCH ×2 (09:15→17:07)
[2017-11-05] MEDS: GABAPENTIN 300 MG CAPSULE PO SCH ×2 (09:15→22:11)
[2017-11-05] MEDS: BUSPIRONE HCL 10 MG TABLET PO SCH ×2 (09:16→17:07)
[2017-11-05] MEDS: FAMOTIDINE 20 MG TABLET PO SCH ×2 (09:16→22:12)
[2017-11-05] MEDS: SERTRALINE HCL 50 MG TABLET PO SCH (09:16)
[2017-11-05] MEDS: ISOSORBIDE DINITRATE 20 MG TABLET PO SCH (09:16)
[2017-11-05] MEDS: METOPROLOL TARTRATE 100 MG TABLET PO SCH ×2 (09:16→22:12)
[2017-11-05] MEDS: NYSTATIN/DEXAMETH/DIPHEN SUSP 120 ML PO SCH ×4 (09:17→22:17)
[2017-11-05] MEDS: LOSARTAN POTASSIUM 50 MG TABLET PO SCH ×2 (09:17→10:25)
[2017-11-05] MEDS: NITROGLYCERIN 0.4 MG/TAB 25 TAB/BOTTLE SL PRN ×2 (09:57→10:07)
[2017-11-05] MEDS: NORMAL SALINE 1000 ML 1,000 ML IV PRN ×2 (09:59→20:50)
--- NOTE | 2017-11-05 10:53 | RADIOLOGY REPORT (SQ) ---
EXAM DESCRIPTION: CHEST SINGLE VIEW COMPLETED DATE/TIME: 11/05/2017 10:31 am REASON FOR STUDY: CHEST PAIN COMPARISON: 10/29/2017. NUMBER OF VIEWS: One view. TECHNIQUE: Single frontal radiographic view of the chest acquired. LIMITATIONS: None. FINDINGS: LUNGS AND PLEURA: No opacities, masses or pneumothorax. No pleural effusion. MEDIASTINUM AND HILAR STRUCTURES: No masses. Contour normal. HEART AND VASCULAR STRUCTURES: Heart normal in size. Normal vasculature. BONES: No acute findings. HARDWARE: None in the chest. OTHER: No other significant finding. IMPRESSION: NO SIGNIFICANT RADIOGRAPHIC FINDING IN THE CHEST. TECHNICAL DOCUMENTATION: JOB ID: [id number] [employer]- All Rights Reserved Reading location - IP/workstation name: [email or web address]
--- NOTE | 2017-11-05 13:05 | PDOC PROGRESS REPORT ---
Subjective Progress Note for:: 11/05/17 Subjective:: Patient had yet another episode of chest pain which she claims as tightness lasting about 45 minutes. EKG obtained shows no acute ST-T wave changes. Patient denying any PND, orthopnea. Patient denied any sustained palpitations, dizziness, syncope, near syncope. Patient denying any fever chills. Patient denying any other significant discomfort. Patient is maintaining sinus rhythm. Review of systems: Rest review of systems negative. Medications: Medications have been reviewed. Reason For Visit: PYELONEPHRITIS, BANDEMIA Physical Exam Vital Signs: Temp Pulse Resp BP Pulse Ox 98.5 F 107 H 16 120/45 L 89 L 11/05/17 07:27 11/05/17 10:13 11/05/17 10:13 11/05/17 10:13 11/05/17 10:13 Intake & Output 11/04/17 11/05/17 11/06/17 06:59 06:59 07:59 Intake Total 4503 3651 Output Total 5250 1725 Balance -747 1926 Weight 104.2 kg 102.4 kg Exam: GENERAL: well-nourished and in no acute distress. Alert and oriented x3 HEAD: Atraumatic, normocephalic. EYES: Pupils equal round and reactive to light, extraocular movements intact, sclera anicteric, conjunctiva are normal. ENT: TMs normal, nares patent, oropharynx clear without exudates. Moist mucous membranes. No oral ulcerations or bleeding gums noted NECK: supple without lymphadenopathy. Trachea is central. No cervical or axillary lymphadenopathy noted. Carotids are 2+, JVD WNL LUNGS: Respiration seems nonlabored, no significant accessory muscle action noted. Breath sounds clear to auscultation bilaterally and equal noted. No wheezes rales or rhonchi noted. No significant dullness noted on percussion. CHEST: Palpation of the chest wall shows no significant chest wall tenderness. No other significant abnormalities noted. HEART: [place] [employer], No PSH, 1/6 VIRAL aortic area, 1/6 [place] systolic murmur mitral area, no rubs, no gallops. ABDOMEN: Soft, no significant tenderness appreciated, normoactive bowel sounds. No guarding, no rebound. No rigidity noted . No masses appreciated. EXTREMITIES: Pedal pulses are 1-2+, no calf tenderness noted. No clubbing or cyanosis. 1+ pedal edema noted NEUROLOGICAL: Focused neurological exam showed no significant neurologic deficit. Normal speech, no focal weakness appreciated. PSYCH: Normal mood, normal affect. Judgment and insight within normal limits. SKIN: No significant ecchymosis, skin is noted to be warm. MUSCULOSKELETAL EXAM: No significant acute joint swelling noted. Results Laboratory Results: 11/05/17 05:47 11/05/17 05:47 11/05/17 11/05/17 05:47 05:47 WBC 34.6 H* RBC 7.32 H Hgb 13.5 Hct 44.0 MCV 60 L MCH 18.4 L MCHC 30.6 L RDW 23.7 H Plt Count 310 Seg Neutrophils % Not Reportable Lymphocytes % Not Reportable Monocytes % Not Reportable Eosinophils % Not Reportable Basophils % Not Reportable Absolute Neutrophils Not Reportable Absolute Lymphocytes Not Reportable Absolute Monocytes Not Reportable Absolute Eosinophils Not Reportable Absolute Basophils Not Reportable Sodium 140.7 Potassium 4.5 Chloride 104 Carbon Dioxide 25 Anion Gap 12 BUN 14 Creatinine 0.67 Est GFR ( Amer) > 60 Est GFR (Non-Af Amer) > 60 Glucose 223 H Calcium 9.4 Magnesium 1.7 10/30/17 10/30/17 10/30/17 10:02 10:02 15:12 Creatine Kinase < 20 L CK-MB (CK-2) 0.38 Troponin I < 0.012 < 0.012 10/30/17 10/31/17 10/31/17 21:07 00:50 00:50 Creatine Kinase < 20 L CK-MB (CK-2) 0.47 Troponin I < 0.012 < 0.012 10/31/17 10/31/17 11/05/17 06:00 08:40 10:33 Creatine Kinase CK-MB (CK-2) Troponin I < 0.012 < 0.012 < 0.012 Impressions: Renal Ultrasound 10/29/17 13:02 IMPRESSION: The 3.5 cm simple appearing cyst in the superior pole of the right kidney, otherwise unremarkable exam. Chest/Abdomen CTA 10/31/17 12:51 IMPRESSION: NORMAL CTA OF THE CHEST. NO PULMONARY EMBOLI. Chest X-Ray 11/05/17 09:59 IMPRESSION: NO SIGNIFICANT RADIOGRAPHIC FINDING IN THE CHEST. Assessment & Plan - Diagnosis (1) Chest pain Qualifiers: Chest pain type: unspecified Qualified Code(s): R07.9 - Chest pain, unspecified Is this a current diagnosis for this admission?: Yes (2) Hypertension Qualifiers: Hypertension type: essential hypertension Qualified Code(s): I10 - Essential (primary) hypertension Is this a current diagnosis for this admission?: Yes (3) Anxiety disorder Qualifiers: Anxiety disorder type: generalized anxiety disorder Qualified Code(s): F41.1 - Generalized anxiety disorder Is this a current diagnosis for this admission?: Yes (4) CAD (coronary artery disease) Qualifiers: Coronary Disease-Associated Artery/Lesion type: [place] artery [place] vs. transplanted heart: [place] heart Associated angina: without angina Qualified Code(s): I25.10 - Atherosclerotic heart disease of [place] coronary artery without angina pectoris Is this a current diagnosis for this admission?: Yes (5) Diabetes mellitus type II, controlled Qualifiers: Diabetes mellitus technician terminal and repeater insulin use: without technician terminal and repeater use Diabetes mellitus complication status: with circulatory complication Diabetes mellitus complication detail: with other circulatory complications Qualified Code(s): E11.59 - Type 2 diabetes mellitus with other circulatory complications (6) Essential hypertension Is this a current diagnosis for this admission?: Yes (7) Gastroesophageal reflux disease Qualifiers: Esophagitis presence: esophagitis presence not specified Qualified Code(s) : K21.9 - Gastro-esophageal reflux disease without esophagitis Is this a current diagnosis for this admission?: Yes (8) History of CVA (cerebrovascular accident) Is this a current diagnosis for this admission?: Yes - Notes Notes: Chest pain: Recurrent chest pain. Since chest pain lasted about 45 minutes, would expect cardiac enzymes to be positive especially troponin I if patient had cardiac etiology of chest pain. Patient already had a nuclear stress test in July. These results were reviewed with the patient and was essentially negative. Currently patient has been chest pain-free. Patient to report any recurrence of chest pain. Hypertension: Recommend good control of blood pressure but avoid any hypo- tension or severe hypertension. Diabetes: Recommend good control of blood sugar. However should avoid any hypoglycemia and hyperglycemia. Patient being expertly managed by primary care M.D/hospitalist Gastroesophageal reflux disease: Continue proton pump inhibitor. History of CVA: Currently is stable. Recommend restarting Lovenox, Plavix. These are on hold for unknown reason. I was asked to see this patient again because of recurrent chest pain. - Time Time with patient: Greater than 35 minutes - CODE STATUS was discussed, patient remains full code. Surrogate decision-maker unchanged. Multiple medical problems were addressed. More than 50% of the time spent coordinating care, discussing management plans with involved caregivers. Management plans discussed with involved personnels. Medical decision making was of moderate to high complexity, patient's has multiple comorbidities. Medications reviewed and adjusted accordingly: Yes
[2017-11-05] MEDS: ONDANSETRON HCL INJ/PF 4 MG/2 ML SDV IV PRN (17:08)
--- NOTE | 2017-11-05 18:07 | PDOC PROGRESS REPORT ---
Subjective Progress Note for:: 11/05/17 Subjective:: ORACIO PEDROZA is a 82-year-old female who presented to the hospital for pyelonephritis on 10/29/2017, she subsequently developed acute chest pain with EKG changes the following day. Patient was briefly in the ICU on a nitro drip, serial troponins were negative, cardiology consulted. Patient was seen this morning on rounds, she was supine in the bed. Patient complained of non-radiating midsternal chest pain (she previously told nursing staff she had no complaints). Stat EKG showed normal sinus rhythm, was unchanged from most recent EKG. Given 2 sublingual nitro and chest pain was relieved. Chest x-ray obtained was benign. Troponin < 0.012, will continue to trend. Cardiology was made aware of the situation. Reason For Visit: PYELONEPHRITIS, BANDEMIA Physical Exam Vital Signs: Temp Pulse Resp BP Pulse Ox 98.6 F 98 20 133/51 H 92 11/05/17 11:35 11/05/17 11:35 11/05/17 11:35 11/05/17 11:35 11/05/17 11:35 Intake & Output 11/04/17 11/05/17 11/06/17 06:59 06:59 07:59 Intake Total 4503 3651 487 Output Total 5250 1725 Balance -747 1926 487 Weight 104.2 kg 102.4 kg General appearance: PRESENT: no acute distress Head exam: PRESENT: atraumatic Eye exam: PRESENT: conjunctiva pink Mouth exam: PRESENT: moist Neck exam: PRESENT: full ROM Respiratory exam: PRESENT: clear to auscultation carmen, symmetrical, unlabored Cardiovascular exam: PRESENT: +S1, +S2, other - Patient was complaining of nonradiating midsternal chest pain. Pulses: PRESENT: normal radial pulses, normal dorsalis pedis pul GI/Abdominal exam: PRESENT: normal bowel sounds, soft Rectal exam: PRESENT: deferred Extremities exam: PRESENT: full ROM Musculoskeletal exam: PRESENT: full ROM Neurological exam: PRESENT: alert, awake, oriented to person, oriented to place , oriented to time, oriented to situation Psychiatric exam: PRESENT: appropriate affect Skin exam: PRESENT: normal color Results Laboratory Results: 11/05/17 05:47 11/05/17 05:47 11/05/17 11/05/17 05:47 05:47 WBC 34.6 H* RBC 7.32 H Hgb 13.5 Hct 44.0 MCV 60 L MCH 18.4 L MCHC 30.6 L RDW 23.7 H Plt Count 310 Seg Neutrophils % Not Reportable Lymphocytes % Not Reportable Monocytes % Not Reportable Eosinophils % Not Reportable Basophils % Not Reportable Absolute Neutrophils Not Reportable Absolute Lymphocytes Not Reportable Absolute Monocytes Not Reportable Absolute Eosinophils Not Reportable Absolute Basophils Not Reportable Sodium 140.7 Potassium 4.5 Chloride 104 Carbon Dioxide 25 Anion Gap 12 BUN 14 Creatinine 0.67 Est GFR ( Amer) > 60 Est GFR (Non-Af Amer) > 60 Glucose 223 H Calcium 9.4 Magnesium 1.7 10/30/17 10/30/17 10/30/17 10:02 10:02 15:12 Creatine Kinase < 20 L CK-MB (CK-2) 0.38 Troponin I < 0.012 < 0.012 10/30/17 10/31/17 10/31/17 21:07 00:50 00:50 Creatine Kinase < 20 L CK-MB (CK-2) 0.47 Troponin I < 0.012 < 0.012 10/31/17 10/31/17 11/05/17 06:00 08:40 10:33 Creatine Kinase CK-MB (CK-2) Troponin I < 0.012 < 0.012 < 0.012 11/05/17 16:50 Creatine Kinase CK-MB (CK-2) Troponin I 0.019 Impressions: Renal Ultrasound 10/29/17 13:02 IMPRESSION: The 3.5 cm simple appearing cyst in the superior pole of the right kidney, otherwise unremarkable exam. Chest/Abdomen CTA 10/31/17 12:51 IMPRESSION: NORMAL CTA OF THE CHEST. NO PULMONARY EMBOLI. Chest X-Ray 11/05/17 09:59 IMPRESSION: NO SIGNIFICANT RADIOGRAPHIC FINDING IN THE CHEST. Status: Imported from PACS Assessment & Plan - Diagnosis (1) Chest pain Qualifiers: Chest pain type: unspecified Qualified Code(s): R07.9 - Chest pain, unspecified Is this a current diagnosis for this admission?: Yes Plan: Chest pain episode from this morning is now resolved following 2 SL nitroglycerin tablets. EKG, chest xray, and troponin all benign. Cardiology is aware. No change to patient's current plan of care. The patient experienced a STEMI on her 2nd day of admission - she was initially treated as an acute [place], placed on a heparin drip and was in the ICU. Cardiology consulted, appreciate their recommendations. Echocardiogram shows grade II/IV mild diastolic dysfunction, otherwise normal. Cardiac stress test done in , no need to repeat. Continue ASA, Plavix, statin, and beta lashell post [place]. Patient will need close cardiology follow-up upon discharge (2) Leukocytosis, unspecified Qualifiers: Leukocytosis type: bandemia Qualified Code(s): D72.825 - Bandemia Is this a current diagnosis for this admission?: Yes Plan: Persistent leukocytosis of unknown origin. Patient has leukocytosis > 30,000 since her admission. The patient has been afebrile, normotensive, and nontoxic- appearing. She is currently being treated with appropriate antibiotics for her ESBL UTI. Looking back through the patient's medical records, she has a history of leukocytosis > 20. Concern for malignant etiology, consulted Dr. Garcia. She performed a bone marrow biopsy today. The plan is to keep the patient admitted while her leukocytosis is worked up with the help of oncology. Appreciate their recommendations. (3) Anxiety and depression Is this a current diagnosis for this admission?: Yes Plan: Continue Zoloft and BuSpar (4) Chronic diastolic CHF (congestive heart failure) Is this a current diagnosis for this admission?: Yes Plan: Echocardiogram demonstrates moderate diastolic dysfunction with preserved ejection fraction. The patient appears euvolemic today. Continue cardiac diet. Daily weights, monitor closely for evidence of volume overload. (5) Diabetes Qualifiers: Diabetes mellitus type: type 1 Is this a current diagnosis for this admission?: Yes Plan: Consistent carb diet. Accu-Checks before meals and at bedtime with Humalog for sliding scale coverage. (6) Essential hypertension Is this a current diagnosis for this admission?: Yes Plan: Patient is consistently HYPERtensive every morning requiring IV PRN hydralazine. The patient's losartan was doubled in order to achieve better blood pressure control. Continue home medications isosorbide, and metoprolol. PRN IV hydralazine. (7) GERD (gastroesophageal reflux disease) Qualifiers: Esophagitis presence: without esophagitis Qualified Code(s): K21.9 - Gastro -esophageal reflux disease without esophagitis Is this a current diagnosis for this admission?: Yes Plan: Continue PPI. Patient denies any abdominal pain or symptoms of reflux (8) Hyperlipidemia Qualifiers: Hyperlipidemia type: unspecified Qualified Code(s): E78.5 - Hyperlipidemia , unspecified Is this a current diagnosis for this admission?: Yes Plan: Continue statin therapy. (9) CAD (coronary artery disease) Qualifiers: Coronary Disease-Associated Artery/Lesion type: [place] artery [place] vs. transplanted heart: [place] heart Associated angina: without angina Qualified Code(s): I25.10 - Atherosclerotic heart disease of [place] coronary artery without angina pectoris Is this a current diagnosis for this admission?: Yes Plan: History of acute NSTEMI 07/2017. Patient did not have cardiac catheterization at that time and was treated medically. Continue aspirin, Plavix, statin, beta-lashell. - Time Time Spent with patient: 15-24 minutes Medications reviewed and adjusted accordingly: Yes Anticipated discharge: Home - Inpatient Certification Based on my medical assessment, after consideration of the patient's comorbidities, presenting symptoms, or acuity I expect that the services needed warrant INPATIENT care.: Yes I certify that my determination is in accordance with my understanding of Medicare's requirements for reasonable and necessary INPATIENT services [42 CFR 412.3e].: Yes Medical Necessity: Risk of Complication if Not Cared For in Hospital - Plan Summary Plan Summary: At this time, the plan is to keep MRS PEDROZA inpatient while her leukocytosis is worked up with the help of oncology
[2017-11-05] MEDS: ATORVASTATIN CALCIUM 80 MG TABLET PO SCH (22:11)
[2017-11-06] MEDS: ACETAMINOPHEN 325 MG TABLET PO PRN ×2 (03:14→07:35)
[2017-11-06] MEDS: HYDRALAZINE HCL INJ/PF 20 MG/1 ML SDV IV PRN (04:27)
[2017-11-06] MEDS: LANSOPRAZOLE 30 MG TAB.RAP.DR PO SCH ×2 (05:29→17:55)
[2017-11-06] MEDS: NORMAL SALINE 1000 ML 1,000 ML IV PRN (07:04)
[2017-11-06 07:31] LABS: HEMATOCRIT 42.1 % (36.0-47.0); HEMOGLOBIN 12.7 g/dL (12.0-15.5); MEAN CORPUSCULAR HEMOGLOBIN 18.1 pg (27.0-33.4); MEAN CORPUSCULAR HGB CONC 30.2 g/dL (32.0-36.0); MEAN CORPUSCULAR VOLUME 60 fl (80-97); PLATELET COUNT 362 10^3/uL (150-450); RED CELL DISTRIBUTION WIDTH 23.5 % (11.5-14.0)
[2017-11-06] MEDS: INSULIN LISPRO 100 UNIT/ML 3 ML VIAL SUBCUT PRN ×3 (07:36→17:42)
[2017-11-06 07:44] LABS: ANION GAP 7 (5-19); BLOOD UREA NITROGEN 13 mg/dL (7-20); CARBON DIOXIDE 24 mmol/L (22-30); CHLORIDE 108 mmol/L (98-107); GLUCOSE 211 mg/dL (75-110); PHOSPHORUS 3.5 mg/dL (2.5-4.5); POTASSIUM 4.4 mmol/L (3.6-5.0); SODIUM 138.9 mmol/L (137-145)
[2017-11-06 07:52] LABS: ABSOLUTE LYMPHOCYTES# (MANUAL) 2.8 10^3/uL (0.5-4.7); ABSOLUTE MONOCYTES # (MANUAL) 1.2 10^3/uL (0.1-1.4); ABSOLUTE NEUTROPHILS# (MANUAL) 34.9 10^3/uL (1.7-8.2); BAND NEUTROPHILS % (MANUAL) 4 % (3-5); BASOPHILS % (MANUAL) 1 % (0-2); EOSINOPHILS % (MANUAL) 1 % (0-6); LYMPHOCYTES % (MANUAL) 7 % (13-45); MONOCYTES % (MANUAL) 3 % (3-13); SEGMENTED NEUTROPHILS % (MAN) 84 % (42-78); TOTAL CELLS COUNTED 100
[2017-11-06 07:55] LABS: ANISOCYTOSIS 2+; HYPOCHROMASIA 1+; OVALOCYTES 1+; PLATELET COMMENT ADEQUATE; PLATELET GIANT PRESENT; POIKILOCYTOSIS 2+; POLYCHROMASIA SLIGHT; TEAR DROP CELLS SLIGHT
[2017-11-06 07:59] LABS: WHITE BLOOD COUNT 39.7 10^3/uL (4.0-10.5)
[2017-11-06 08:00] LABS: RED BLOOD COUNT 7.04 10^6/uL (3.72-5.28)
[2017-11-06] MEDS: ASPIRIN 325 MG TABLET, ENT COATED PO SCH (10:09)
[2017-11-06] MEDS: LOSARTAN POTASSIUM 50 MG TABLET PO SCH (10:09)
[2017-11-06] MEDS: BUSPIRONE HCL 10 MG TABLET PO SCH ×2 (10:09→17:41)
[2017-11-06] MEDS: DOCUSATE SODIUM 100 MG CAPSULE PO SCH ×2 (10:09→17:55)
[2017-11-06] MEDS: FAMOTIDINE 20 MG TABLET PO SCH (10:10)
[2017-11-06] MEDS: METOPROLOL TARTRATE 100 MG TABLET PO SCH (10:10)
[2017-11-06] MEDS: ISOSORBIDE DINITRATE 20 MG TABLET PO SCH (10:10)
[2017-11-06] MEDS: SERTRALINE HCL 50 MG TABLET PO SCH (10:10)
[2017-11-06] MEDS: CEFAZOLIN 1 GM/D5W RTU 1 GM/50 ML RTUPB IV SCH ×2 (10:11→17:55)
[2017-11-06] MEDS: NYSTATIN/DEXAMETH/DIPHEN SUSP 120 ML PO SCH ×3 (10:11→17:55)
[2017-11-06] MEDS: GABAPENTIN 300 MG CAPSULE PO SCH (10:11)
[2017-11-06] MEDS: CLOPIDOGREL BISULFATE 75 MG TABLET PO SCH (10:11)
[2017-11-06] MEDS: ENOXAPARIN SODIUM INJ 40 MG/0.4 ML DISP.SYRIN SUBCUT SCH (10:12)
--- NOTE | 2017-11-06 10:53 | EKG REPORT ---
SEVERITY:- ABNORMAL ECG - SINUS RHYTHM CONSIDER ANTEROSEPTAL INFARCT BORDERLINE PROLONGED QT INTERVAL : Confirmed by: Bud Medina 06-Nov-2017 10:51:22
--- NOTE | 2017-11-06 10:53 | EKG REPORT ---
SEVERITY:- ABNORMAL ECG - SINUS TACHYCARDIA CONSIDER ANTEROSEPTAL INFARCT BORDERLINE PROLONGED QT INTERVAL : Confirmed by: Bud Medina 06-Nov-2017 10:51:28
[2017-11-06] MEDS ORDERED: RANOLAZINE 500 MG TAB.SR.12H PO ONE (11:30)
--- NOTE | 2017-11-06 11:47 | PDOC PROGRESS REPORT ---
Subjective Progress Note for:: 11/06/17 Subjective:: No acute events overnight Reason For Visit: PYELONEPHRITIS, BANDEMIA Physical Exam Vital Signs: Temp Pulse Resp BP Pulse Ox 98.3 F 88 22 H 147/62 H 91 L 11/06/17 07:29 11/06/17 07:29 11/06/17 07:29 11/06/17 07:29 11/06/17 07:29 Intake & Output 11/05/17 11/06/17 11/07/17 05:59 06:59 06:59 Intake Total Output Total Balance Weight General appearance: PRESENT: no acute distress, well-developed, well-nourished Head exam: PRESENT: atraumatic, normocephalic Eye exam: PRESENT: conjunctiva pink, EOMI, PERRLA. ABSENT: scleral icterus Ear exam: PRESENT: normal external ear exam Mouth exam: PRESENT: moist, tongue midline Neck exam: ABSENT: carotid bruit, JVD, lymphadenopathy, thyromegaly Respiratory exam: PRESENT: clear to auscultation carmen. ABSENT: rales, rhonchi, wheezes Cardiovascular exam: PRESENT: RRR. ABSENT: diastolic murmur, rubs, systolic murmur Pulses: PRESENT: normal dorsalis pedis pul Vascular exam: PRESENT: normal capillary refill GI/Abdominal exam: PRESENT: normal bowel sounds, soft. ABSENT: distended, guarding, mass, organolmegaly, rebound, tenderness Rectal exam: PRESENT: deferred Extremities exam: PRESENT: full ROM. ABSENT: calf tenderness, clubbing, pedal edema Neurological exam: PRESENT: alert, awake, oriented to person, oriented to place , oriented to time, oriented to situation, CN II-XII grossly intact. ABSENT: motor sensory deficit Psychiatric exam: PRESENT: appropriate affect, normal mood. ABSENT: homicidal ideation, suicidal ideation Skin exam: PRESENT: dry, intact, warm. ABSENT: cyanosis, rash Results Laboratory Results: 11/06/17 07:09 11/06/17 07:09 11/06/17 11/06/17 07:09 07:09 WBC 39.7 H* RBC 7.04 H Hgb 12.7 Hct 42.1 MCV 60 L MCH 18.1 L MCHC 30.2 L RDW 23.5 H Plt Count 362 Seg Neutrophils % Not Reportable Lymphocytes % Not Reportable Monocytes % Not Reportable Eosinophils % Not Reportable Basophils % Not Reportable Absolute Neutrophils Not Reportable Absolute Lymphocytes Not Reportable Absolute Monocytes Not Reportable Absolute Eosinophils Not Reportable Absolute Basophils Not Reportable Sodium 138.9 Potassium 4.4 Chloride 108 H Carbon Dioxide 24 Anion Gap 7 BUN 13 Creatinine 0.59 Est GFR ( Amer) > 60 Est GFR (Non-Af Amer) > 60 Glucose 211 H Calcium 9.0 Phosphorus 3.5 Magnesium 1.7 10/30/17 10/30/17 10/30/17 10:02 10:02 15:12 Creatine Kinase < 20 L CK-MB (CK-2) 0.38 Troponin I < 0.012 < 0.012 10/30/17 10/31/17 10/31/17 21:07 00:50 00:50 Creatine Kinase < 20 L CK-MB (CK-2) 0.47 Troponin I < 0.012 < 0.012 10/31/17 10/31/17 11/05/17 06:00 08:40 10:33 Creatine Kinase CK-MB (CK-2) Troponin I < 0.012 < 0.012 < 0.012 11/05/17 11/05/17 16:50 22:34 Creatine Kinase CK-MB (CK-2) Troponin I 0.019 0.029 Impressions: Renal Ultrasound 10/29/17 13:02 IMPRESSION: The 3.5 cm simple appearing cyst in the superior pole of the right kidney, otherwise unremarkable exam. Chest/Abdomen CTA 10/31/17 12:51 IMPRESSION: NORMAL CTA OF THE CHEST. NO PULMONARY EMBOLI. Chest X-Ray 11/05/17 09:59 IMPRESSION: NO SIGNIFICANT RADIOGRAPHIC FINDING IN THE CHEST. Assessment & Plan - Diagnosis (1) Leukocytosis, unspecified Qualifiers: Leukocytosis type: bandemia Qualified Code(s): D72.825 - Bandemia Is this a current diagnosis for this admission?: Yes Plan: BMBx done, awaiting results, likely d/c home soon per hospitalist team, ordered f/u w/ Dr. Garcia for 1-2 post d/c to go over bmbx results.
--- NOTE | 2017-11-06 14:18 | PDOC PROGRESS REPORT ---
Subjective Progress Note for:: 11/06/17 Subjective:: Patient has been chest pain-free since yesterday. She had EKG obtained shows no acute ST-T wave changes. Patient denying any PND, orthopnea. Patient denied any sustained palpitations, dizziness, syncope, near syncope. Patient denying any fever chills. Patient denying any other significant discomfort. Patient is maintaining sinus rhythm. Review of systems: Rest review of systems negative. Medications: Medications have been reviewed. Reason For Visit: PYELONEPHRITIS, BANDEMIA Physical Exam Vital Signs: Temp Pulse Resp BP Pulse Ox 98.3 F 88 22 H 147/62 H 91 L 11/06/17 07:29 11/06/17 07:29 11/06/17 07:29 11/06/17 07:29 11/06/17 07:29 Intake & Output 11/05/17 11/06/17 11/07/17 05:59 06:59 06:59 Intake Total 237 Output Total 500 Balance -263 Weight Exam: GENERAL: well-nourished and in no acute distress. Alert and oriented x3 HEAD: Atraumatic, normocephalic. EYES: Pupils equal round and reactive to light, extraocular movements intact, sclera anicteric, conjunctiva are normal. ENT: TMs normal, nares patent, oropharynx clear without exudates. Moist mucous membranes. No oral ulcerations or bleeding gums noted NECK: supple without lymphadenopathy. Trachea is central. No cervical or axillary lymphadenopathy noted. Carotids are 2+, JVD WNL LUNGS: Respiration seems nonlabored, no significant accessory muscle action noted. Breath sounds clear to auscultation bilaterally and equal noted. No wheezes rales or rhonchi noted. No significant dullness noted on percussion. CHEST: Palpation of the chest wall shows no significant chest wall tenderness. No other significant abnormalities noted. 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 ABDOMEN: Soft, no significant tenderness appreciated, normoactive bowel sounds. No guarding, no rebound. No rigidity noted . No masses appreciated. EXTREMITIES: Pedal pulses are 1-2+, no calf tenderness noted. No clubbing or cyanosis.trace to 1+ pedal edema noted NEUROLOGICAL: Focused neurological exam showed no significant neurologic deficit. Normal speech, no focal weakness appreciated. PSYCH: Normal mood, normal affect. Judgment and insight within normal limits. SKIN: No significant ecchymosis, skin is noted to be warm. MUSCULOSKELETAL EXAM: No significant acute joint swelling noted. Results Laboratory Results: 11/06/17 07:09 11/06/17 07:09 11/06/17 11/06/17 07:09 07:09 WBC 39.7 H* RBC 7.04 H Hgb 12.7 Hct 42.1 MCV 60 L MCH 18.1 L MCHC 30.2 L RDW 23.5 H Plt Count 362 Seg Neutrophils % Not Reportable Lymphocytes % Not Reportable Monocytes % Not Reportable Eosinophils % Not Reportable Basophils % Not Reportable Absolute Neutrophils Not Reportable Absolute Lymphocytes Not Reportable Absolute Monocytes Not Reportable Absolute Eosinophils Not Reportable Absolute Basophils Not Reportable Sodium 138.9 Potassium 4.4 Chloride 108 H Carbon Dioxide 24 Anion Gap 7 BUN 13 Creatinine 0.59 Est GFR ( Amer) > 60 Est GFR (Non-Af Amer) > 60 Glucose 211 H Calcium 9.0 Phosphorus 3.5 Magnesium 1.7 10/30/17 10/30/17 10/30/17 10:02 10:02 15:12 Creatine Kinase < 20 L CK-MB (CK-2) 0.38 Troponin I < 0.012 < 0.012 10/30/17 10/31/17 10/31/17 21:07 00:50 00:50 Creatine Kinase < 20 L CK-MB (CK-2) 0.47 Troponin I < 0.012 < 0.012 10/31/17 10/31/17 11/05/17 06:00 08:40 10:33 Creatine Kinase CK-MB (CK-2) Troponin I < 0.012 < 0.012 < 0.012 11/05/17 11/05/17 16:50 22:34 Creatine Kinase CK-MB (CK-2) Troponin I 0.019 0.029 Impressions: Renal Ultrasound 10/29/17 13:02 IMPRESSION: The 3.5 cm simple appearing cyst in the superior pole of the right kidney, otherwise unremarkable exam. Chest/Abdomen CTA 10/31/17 12:51 IMPRESSION: NORMAL CTA OF THE CHEST. NO PULMONARY EMBOLI. Chest X-Ray 11/05/17 09:59 IMPRESSION: NO SIGNIFICANT RADIOGRAPHIC FINDING IN THE CHEST. Assessment & Plan - Diagnosis (1) Chest pain Qualifiers: Chest pain type: unspecified Qualified Code(s): R07.9 - Chest pain, unspecified Is this a current diagnosis for this admission?: Yes (2) Hypertension Qualifiers: Hypertension type: essential hypertension Qualified Code(s): I10 - Essential (primary) hypertension Is this a current diagnosis for this admission?: Yes (3) Anxiety disorder Qualifiers: Anxiety disorder type: generalized anxiety disorder Qualified Code(s): F41.1 - Generalized anxiety disorder Is this a current diagnosis for this admission?: Yes (4) CAD (coronary artery disease) Qualifiers: Coronary Disease-Associated Artery/Lesion type: [place] artery [place] vs. transplanted heart: [place] heart Associated angina: without angina Qualified Code(s): I25.10 - Atherosclerotic heart disease of [place] coronary artery without angina pectoris Is this a current diagnosis for this admission?: Yes (5) Diabetes mellitus type II, controlled Qualifiers: Diabetes mellitus terminal supervisor insulin use: without terminal supervisor use Diabetes mellitus complication status: with circulatory complication Diabetes mellitus complication detail: with other circulatory complications Qualified Code(s): E11.59 - Type 2 diabetes mellitus with other circulatory complications (6) Essential hypertension Is this a current diagnosis for this admission?: Yes (7) Gastroesophageal reflux disease Qualifiers: Esophagitis presence: esophagitis presence not specified Qualified Code(s) : K21.9 - Gastro-esophageal reflux disease without esophagitis Is this a current diagnosis for this admission?: Yes (8) History of CVA (cerebrovascular accident) Is this a current diagnosis for this admission?: Yes - Notes Notes: Chest pain: EKGs has been negative. Troponin I relatively unremarkable for patient's age. Patient already had a nuclear stress test in July. These results were reviewed with the patient and was essentially negative. Currently patient has been chest pain-free. Patient to report any recurrence of chest pain. Hypertension: Recommend good control of blood pressure but avoid any hypo- tension or severe hypertension. Have optimized medical regimen for presumed underlying CAD. In this regard patient being switched to metoprolol succinate 100 mg p.o. twice daily. Have also placed patient on Ranexa 500 mg p.o. twice daily and longer acting nitrate which is isosorbide mononitrate at 30 mg p.o. q. a.m. If patient wishes to be discharged, she could be discharged later on today or tomorrow morning. Patient was encouraged to ambulate. Diabetes: Recommend good control of blood sugar. However should avoid any hypoglycemia and hyperglycemia. Patient being expertly managed by primary care MAlisa/hospitalist Gastroesophageal reflux disease: Continue proton pump inhibitor. History of CVA: Currently is stable. Yesterday Lovenox was restarted at DVT prophylaxis dose. Plavix be restarted. We will continue to follow patient until discharge since patient keeps on having intermittent chest pain. - Time Time with patient: Greater than 35 minutes - CODE STATUS was discussed, patient remains full code. Surrogate decision-maker unchanged. Multiple medical problems were addressed. More than 50% of the time spent coordinating care, discussing management plans with involved caregivers. Management plans discussed with involved personnels. Medical decision making was of moderate to high complexity, patient's has multiple comorbidities. Medications reviewed and adjusted accordingly: Yes
[2017-11-06 17:52] VITALS: BP 144/70
[2017-11-06] MEDS ORDERED: METOPROLOL SUCCINATE 50 MG TAB.SR.24H PO SCH (22:00)
[2017-11-06] MEDS ORDERED: RANOLAZINE 500 MG TAB.SR.12H PO SCH (22:00)
[2017-11-07] MEDS ORDERED: ISOSORBIDE MONONITRATE 30 MG TAB.ER.24H PO SCH (10:00)
--- NOTE | 2017-11-24 22:22 | PDOC DISCHARGE SUMMARY ---
General - Admit/Disc Date/PCP Admission Date/Primary Care Provider: 10/29/17 13:55 JAVED GUERRIER MD Discharge Date: 11/06/17 - Discharge Diagnosis (1) Chest pain Is this a current diagnosis for this admission?: Yes Summary: The patient experienced a STEMI on her 2nd day of admission - she was initially treated as an acute WA, placed on a heparin drip and was in the ICU. Cardiology consulted. Echocardiogram shows grade II/IV mild diastolic dysfunction, otherwise normal. Cardiac stress test done in , no need to repeat. Continue ASA, Plavix, statin, and beta lashell post WA. Patient will need close cardiology follow-up upon discharge (2) Leukocytosis Is this a current diagnosis for this admission?: Yes Summary: Persistent leukocytosis of unknown origin. Patient has leukocytosis > 30,000 since her admission. The patient has been afebrile, normotensive, and nontoxic- appearing. She is currently being treated with appropriate antibiotics for her ESBL UTI. Looking back through the patient's medical records, she has a history of leukocytosis > 20. Concern for malignant etiology, consulted Dr. Garcia. She performed a bone marrow biopsy at bedside. plan to f/u in office within 1 week for results. (3) Anxiety and depression Is this a current diagnosis for this admission?: Yes Summary: Heath and esdras (4) Diabetes Is this a current diagnosis for this admission?: Yes Summary: ACHS Humalog insulin while inpatient. Patient uses 70/30 at home, no change. (5) Essential hypertension Is this a current diagnosis for this admission?: Yes Summary: Patient is consistently HYPERtensive every morning requiring IV PRN hydralazine. The patient's losartan was doubled in order to achieve better blood pressure control. Continue home medications isosorbide, and metoprolol. Discharged on all 4 medications. (6) GERD (gastroesophageal reflux disease) Is this a current diagnosis for this admission?: Yes Summary: No c/o abdominal pain or nausea. +PPI. No need to continue post-discharge (7) Hyperlipidemia Is this a current diagnosis for this admission?: Yes Summary: Statin therapy (8) CAD (coronary artery disease) Is this a current diagnosis for this admission?: Yes Summary: History of acute NSTEMI 07/2017. Patient experienced STEMI during 2nd day of admission. No catheterization, medically managed. Continue ASA, plavix, beta lashell, statin therapy - Additional Information Resuscitation Status: Full Code Discharge Diet: Cardiac, Diabetic Discharge Activity: Activity As Tolerated Prescriptions: Cefpodoxime Proxetil [Vantin 200 mg Tablet] 1 tab PO Q12 5 Days #10 tab Clopidogrel Bisulfate [Plavix 75 mg Tablet] 75 mg PO DAILY #30 tablet Losartan Potassium [Cozaar 50 mg Tablet] 100 mg PO DAILY #30 tablet Nitroglycerin [Nitrostat 0.4 mg (1/150 Gr) Tabs 25/Bottle] 1 tab SL Q5MP PRN #1 bottle PRN Reason: Ranolazine [Ranexa 500 mg Tab.sr] 500 mg PO Q12 #60 tab.sr.12h Home Medications: Buspirone HCl [Buspar 15 mg Tablet] 15 mg PO BID 08/24/17 Docusate Sodium [Colace 100 mg Capsule] 100 mg PO BID 08/24/17 Gabapentin [Neurontin 300 mg Capsule] 300 mg PO Q12 08/24/17 Hum Insulin NPH/Reg Insulin Hm [Novolin 70-30 100 Unit/ml Vial] 65 units SQ BID 08/24/17 Isosorbide Dinitrate [Isordil Titradose 10 mg Tablet] 30 mg PO DAILY 08/24/17 Metoprolol Tartrate [Lopressor 100 mg Tablet] 100 mg PO Q12 08/24/17 Pantoprazole Sodium [Protonix] 40 mg PO DAILY 08/24/17 Rosuvastatin Calcium [Crestor] 40 mg PO QAM 08/24/17 Sertraline HCl [Zoloft 50 mg Tablet] 50 mg PO DAILY 08/24/17 Sitagliptin Phosphate [Januvia] 100 mg PO DAILY 08/24/17 Trazodone HCl [Desyrel 50 mg Tablet] 50 mg PO HSP PRN 08/24/17 Aspirin [Ecotrin 81 mg EC Tablet] 81 mg PO DAILY tabec 08/29/17 Cefpodoxime Proxetil [Vantin 200 mg Tablet] 1 tab PO Q12 5 Days #10 tab Clopidogrel Bisulfate [Plavix 75 mg Tablet] 75 mg PO DAILY #30 tablet 11/06/17 Losartan Potassium [Cozaar 50 mg Tablet] 100 mg PO DAILY #30 tablet 11/06/17 Magnesium Hydroxide [Milk of Magnesia 30 ml Udcup] 30 ml PO HSP PRN #0 udc 11/06 Nitroglycerin [Nitrostat 0.4 mg (1/150 Gr) Tabs 25/Bottle] 1 tab SL Q5MP PRN #1 bottle 11/06/17 Ranolazine [Ranexa 500 mg Tab.sr] 500 mg PO Q12 #60 tab.sr.12h 11/06/17 Promethazine HCl [Phenergan 25 mg Tablet] 1 - 2 tab PO Q6H PRN #15 tablet Docusate Sodium [Colace 100 mg Capsule] 100 mg PO DAILY #30 capsule 11/09/17 Ondansetron [Zofran Odt] 4 mg PO Q6 PRN #30 tab.rapdis 11/09/17 Promethazine HCl [Phenergan 25 mg Tablet] 25 mg PO Q6H PRN #10 tablet 11/14/17 Metronidazole [Flagyl 500 mg Tablet] 500 mg PO Q8H 10 Days #30 tablet 11/15/17 History of Present Illness History of Present Illness: ORACIO PEDROZA is a 82 year old female with a 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 She states that she woke this morning with a low-grade temperature of 100. She also reports 2- 3 episodes of emesis over the last few days. Evaluation in the emergency department reveals leukocytosis of 38.7 with bandemia and a positive urinalysis. At time of dictation, renal ultrasound is pending. She is provided IV fluids and has received ciprofloxacin emergency department. She is referred to the hospitalist service for admission and management of pyelonephritis. Hospital Course Hospital Course: as above Physical Exam Vital Signs: Temp Pulse Resp BP Pulse Ox 98.6 F 88 20 144/70 H 93 11/06/17 17:51 11/06/17 17:51 11/06/17 17:51 11/06/17 17:51 11/06/17 17:51 General appearance: PRESENT: no acute distress Mouth exam: PRESENT: moist Teeth exam: PRESENT: poor dentation Neck exam: PRESENT: full ROM Respiratory exam: PRESENT: clear to auscultation carmen, symmetrical, unlabored Cardiovascular exam: PRESENT: RRR, +S1, +S2 Pulses: PRESENT: normal radial pulses, normal dorsalis pedis pul Vascular exam: PRESENT: normal capillary refill GI/Abdominal exam: PRESENT: normal bowel sounds, soft Rectal exam: PRESENT: deferred Extremities exam: PRESENT: full ROM Musculoskeletal exam: PRESENT: ambulatory - with assistance, full ROM Neurological exam: PRESENT: alert, awake, oriented to person, oriented to place , oriented to time, oriented to situation Psychiatric exam: PRESENT: appropriate affect Skin exam: PRESENT: normal color Results Laboratory Results: 11/06/17 07:09 11/06/17 07:09 10/30/17 10/30/17 10/30/17 10:02 10:02 15:12 Creatine Kinase < 20 L CK-MB (CK-2) 0.38 Troponin I < 0.012 < 0.012 10/30/17 10/31/17 10/31/17 21:07 00:50 00:50 Creatine Kinase < 20 L CK-MB (CK-2) 0.47 Troponin I < 0.012 < 0.012 10/31/17 10/31/17 11/05/17 06:00 08:40 10:33 Creatine Kinase CK-MB (CK-2) Troponin I < 0.012 < 0.012 < 0.012 11/05/17 11/05/17 16:50 22:34 Creatine Kinase CK-MB (CK-2) Troponin I 0.019 0.029 Impressions: Renal Ultrasound 10/29/17 13:02 IMPRESSION: The 3.5 cm simple appearing cyst in the superior pole of the right kidney, otherwise unremarkable exam. Chest/Abdomen CTA 10/31/17 12:51 IMPRESSION: NORMAL CTA OF THE CHEST. NO PULMONARY EMBOLI. Chest X-Ray 11/05/17 09:59 IMPRESSION: NO SIGNIFICANT RADIOGRAPHIC FINDING IN THE CHEST. 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 Discharged on the following medications: VANTIN antibiotic to treat kidney infection RANEXA minimize chest pain and optimize regimen of cardiac medications PLAVIX COZAAR treatment for high blood pressure, increased dose because blood pressure was consistently high Time Spent: Less than 30 Minutes
== END 2017-11-06 18:49 | disposition home or self-care (01) | DRG 689 ==
LOC: ER 11:11 → EH 13:55 → 2S 10-30 00:46 → ICU 10-30 10:27 → 3W 10-31 21:10
PROVIDERS: ADMIT Internal Medicine; ATTEND Internal Medicine
PROC: 07DR3ZX Extraction of Iliac Bone Marrow, Percutaneous Approach, Diagnostic (ICD-10-PCS; principal; 2017-11-04)
DX: N12 Tubulo-interstitial nephritis, not specified as acute or chronic (principal); I21.A1 Myocardial infarction type 2; I69.351 Hemiplegia and hemiparesis following cerebral infarction affecting right dominant side; I50.32 Chronic diastolic (congestive) heart failure; I11.0 Hypertensive heart disease with heart failure; N28.1 Cyst of kidney, acquired; B96.20 Unspecified Escherichia coli [E. coli] as the cause of diseases classified elsewhere; E11.9 Type 2 diabetes mellitus without complications; F41.1 Generalized anxiety disorder; M19.90 Unspecified osteoarthritis, unspecified site; F32.9 Major depressive disorder, single episode, unspecified; D64.9 Anemia, unspecified; D72.825 Bandemia; K21.9 Gastro-esophageal reflux disease without esophagitis; Z66 Do not resuscitate; E78.5 Hyperlipidemia, unspecified; E66.9 Obesity, unspecified; Z68.37 Body mass index [BMI] 37.0-37.9, adult; I25.2 Old myocardial infarction; Z90.49 Acquired absence of other specified parts of digestive tract; Z90.710 Acquired absence of both cervix and uterus; Z88.6 Allergy status to analgesic agent; Z86.14 Personal history of Methicillin resistant Staphylococcus aureus infection; Z85.828 Personal history of other malignant neoplasm of skin; Z79.02 Long term (current) use of antithrombotics/antiplatelets; Z79.899 Other long term (current) drug therapy
CPT/HCPCS: 36415; 71045; 71046; 71275; 76775; 80048; 80053; 81001; 82272; 82550; 82553; 82728; 82962; 83690; 83735; 84100; 84484; 85025; 85027; 85610; 85652; 85730; 87040; 87086; 87088; 87186; 93005; 93010; 93306; 99291; J0360; J0690; J0744; J1644; J1650; J1815; J2185; J2405; J2543; J3490; J7030; J7120; S0119

== ENCOUNTER 2017-11-07 10:51 | Emergency (ER) | payer MEDICARE, OTHER ==
[2017-11-07 11:12] VITALS: BP 170/86
[2017-11-07] MEDS ORDERED: NORMAL SALINE 1000 ML 1,000 ML IV ONE (11:13)
--- NOTE | 2017-11-07 11:16 | ER Document Report ---
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 She was discharged from [facility] yesterday after she was admitted for pyelonephritis and further workup of her chronic leukocytosis, including a bone marrow biopsy. Patient was on Cipro for her pyelonephritis. Earlier today, she began to have worsening vomiting, which improved after 4 mg of ODT Zofran from EMS. Patient says she is having worsening abdominal pain in the left upper quadrant and left lower quadrant. Denies diarrhea, blood in stool, chest pain, shortness of breath, dysuria, hematuria or rash. TRAVEL OUTSIDE OF THE [place] IN LAST 30 DAYS: No - Related Data Allergies/Adverse Reactions: morphine Allergy (Verified 10/29/17 11:11) Past Medical History - General Information source: Patient - Social History Smoking Status: Former Smoker Chew tobacco use (# tins/day): No Frequency of alcohol use: None Drug Abuse: None Family History: CAD, COPD, DM, Hyperlipidemia, Hypertension, Malignancy - Father with lung cancer, Other Patient has suicidal ideation: No Patient has homicidal ideation: No - Past Medical History Cardiac Medical History: Reports: Hx Congestive Heart Failure - Diastolic, Hx Heart Attack - EKG suggests probable prior infarction, Hx Hypercholesterolemia, Hx Hypertension, Hx Pulmonary Embolism - Distant history Pulmonary Medical History: Denies: Hx Asthma, Hx COPD, Hx Sleep Apnea Neurological Medical History: Denies: Hx Seizures Endocrine Medical History: Reports: Hx Diabetes Mellitus Type 1, Hx Diabetes Mellitus Type 2. Denies: Hx Hyperthyroidism, Hx Hypothyroidism Renal/ Medical History: Denies: Hx End Stage Renal Disease, Hx Peritoneal Dialysis Malignancy Medical History: Reports: Hx Skin Cancer - Excised from her nose. GI Medical History: Reports: Hx Gastroesophageal Reflux Disease. Denies: Hx Cirrhosis, Hx Hepatitis Musculoskeltal Medical History: Reports Hx Arthritis, Reports Hx Musculoskeletal Deformity Skin Medical History: Denies Hx Eczema, Denies Hx Psoriasis Psychiatric Medical History: Reports: Hx Anxiety, Hx Depression Infectious Medical History: Reports: Hx MRSA - Quite distant history. Denies: Hx C-Diff, Hx Hepatitis Past Surgical History: Reports: Hx Abdominal Surgery, Hx Appendectomy, Hx Cholecystectomy, Hx Hysterectomy, Hx Tonsillectomy, Other - Cardiac loop recorder, bilateral cataract surgery - Immunizations Hx Diphtheria, Pertussis, Tetanus Vaccination: No Hx Pneumococcal Vaccination: 04/29/13 Review of Systems - Review of Systems Notes: REVIEW OF SYSTEMS: CONSTITUTIONAL: +fevers, -chills EENT: -eye pain, -difficulty swallowing, -nasal congestion CARDIOVASCULAR: -chest pain, -syncope. RESPIRATORY: -cough, -SOB GASTROINTESTINAL: -abdominal pain, +nausea, +vomiting, -diarrhea GENITOURINARY: -dysuria, -hematuria MUSCULOSKELETAL: -back pain, -neck pain SKIN: -rash or skin lesions. HEMATOLOGIC: -easy bruising or bleeding. LYMPHATIC: -swollen, enlarged glands. NEUROLOGICAL: -altered mental status or loss of consciousness, -headache, - neurologic symptoms PSYCHIATRIC: -anxiety, -depression. ALL OTHER SYSTEMS REVIEWED AND NEGATIVE. Physical Exam - Vital signs Vitals: Temp Pulse Resp BP Pulse Ox 98.3 F 108 H 18 170/86 H 97 11/07/17 11:02 11/07/17 11:02 11/07/17 11:02 11/07/17 11:02 11/07/17 11:02 - Notes Notes: PHYSICAL EXAMINATION: GENERAL: Uncomfortable. HEAD: Atraumatic, normocephalic. EYES: Pupils equal round and reactive to light, extraocular movements intact, sclera anicteric, conjunctiva are normal. ENT: nares patent, oropharynx clear without exudates. Moist mucous membranes. NECK: Normal range of motion, supple without lymphadenopathy LUNGS: Breath sounds clear to auscultation bilaterally and equal. No wheezes rales or rhonchi. HEART: Tachycardia, regular rhythm. ABDOMEN: Soft, moderate LUQ and LLQ tenderness, normoactive bowel sounds. No guarding, no rebound. No masses appreciated. EXTREMITIES: Normal range of motion, no pitting or edema. No cyanosis. NEUROLOGICAL: Cranial nerves grossly intact. Normal speech, normal gait. Normal sensory and motor exams. PSYCH: Normal mood, normal affect. SKIN: Warm, Dry, normal turgor, no rashes or lesions noted. Course - Re-evaluation Re-evalutation: Patient appears well and is no acute distress. After antiemetics, her nausea and vomiting resolved. She did have some mild left upper quadrant left lower quadrant abdominal pain, but her CAT scan did not show any acute abnormalities. Patient is in no respiratory distress and her oxygenation remained above 90%, which is where she was when she was admitted last week. - Vital Signs Vital signs: Temp Pulse Resp BP Pulse Ox 98.3 F 108 H 15 170/86 H 90 L 11/07/17 11:02 11/07/17 11:02 11/07/17 14:00 11/07/17 11:02 11/07/17 14:00 - Laboratory Result Diagrams: 11/07/17 12:24 11/07/17 12:24 Laboratory results interpreted by me: 11/07/17 11/07/17 12:24 14:38 Glucose 252 H Direct Bilirubin 0.5 H Alkaline Phosphatase 234 H Creatine Kinase < 20 L Urine Glucose (UA) 50 H Urine Ketones TRACE H Ur Leukocyte Esterase SMALL H - Diagnostic Test Radiology reviewed: Image reviewed, Reports reviewed Radiology results interpreted by me: CT A/P: Splenomegaly unchanged from the previous study without focal splenic abnormalities being identified. Tiny amount of air in the bladder as noted above of uncertain etiology or significance. Clinical correlation is recommended. Moderate amount of fecal material throughout the colon. Other findings as noted above. - EKG Interpretation by Me EKG shows normal: Sinus rhythm, [place], Intervals, QRS Complexes, ST-T Waves Rate: Tachycardia When compared to previous EKG there are: No significant change Discharge - Discharge Clinical Impression: Nausea and vomiting Qualifiers: Vomiting type: unspecified Vomiting Intractability: non-intractable Qualified Code(s): R11.2 - Nausea with vomiting, unspecified Condition: Stable Disposition: HOME, SELF-CARE Additional Instructions: VOMITING: Vomiting (or nausea without vomiting) can be caused by many other different problems. It can mean that something's wrong with the stomach, such as ulcers or inflammation or the intestinal tract, such as appendicitis. But it can also be a symptom of a problem that has nothing to do with the stomach or intestines. Vomiting is common with severe headaches, earaches, tonsillitis, and kidney infections, etc. We see it with pneumonia or heart attacks. Drugs can cause nausea and vomiting. Many abdominal problems cause vomiting; for example, gallstones, kidney stones, pancreatitis, and intestinal obstruction ( blocked bowels). In most cases, curing the vomiting depends on fixing the problem that caused it. For temporary relief, we may use an anti-nausea medicine. For home use, we can prescribe suppositories, chewable pills, pills that dissolve in the mouth, or liquid anti-nausea drugs. If the vomiting seems to be caused by a problem in the stomach, acid-suppressing drugs may be prescribed as well. It's important to avoid dehydration. Sip small amounts of clear liquids ( soft drinks, tea, broth, etc) . Try to take fluids frequently even if you are vomiting to prevent dehydration. Take increasing amounts of fluid and when liquids are being consumed successfully, advance to small amounts of bland food (toast, soups, mashed potatoes, etc.) until you are able to resume a regular diet. Avoid aspirin, tobacco, and alcohol. If the vomiting worsens, if the problem that's making you vomit worsens, or if there's evidence of bleeding in the stomach (such as black, tarry stool, or bloody or black vomit), you should return immediately. Also, return if abdominal pain worsens or becomes localized to one area or you develop high fever. Call your doctor if you aren't improved in 24 hours. INTRAVENOUS (I V) FLUIDS: As part of your care today, you received intravenous (IV) fluids. IV fluids are administered to patients who are dehydrated or to those who have certain chemical (electrolyte) abnormalities that need correcting. ANTINAUSEA MEDICATION: You have been given a medication to suppress nausea and vomiting. This type of medication can be given as a shot, pill, or suppository. It will usually last for many hours. Pills and shots usually last six to eight hours. For the typical illness, only one or two doses of the medication may be necessary. Mild lightheadedness may occur. This type of medicine can cause drowsiness. Do not drive or operate dangerous machinery while under its influence. Do not mix with alcohol. See your doctor at once if you have muscle spasms or tightness, or uncontrollable motions (particularly of the neck, mouth, or jaw). Persistent vomiting or severe lightheadedness should also be evaluated by the physician. FOLLOW-UP CARE: If you have been referred to a physician for follow-up care, call the physician s office for an appointment as you were instructed or within the next two days. If you experience worsening or a significant change in your symptoms, notify the physician immediately or return to the Emergency Department at any time for re-evaluation. Prescriptions: Promethazine HCl [Phenergan 25 mg Tablet] 1 - 2 tab PO Q6H PRN #15 tablet PRN Reason: Forms: Elevated Blood Pressure Referrals: SOFI GUERRIER MD [COMMUNITY BASED STAFF] - Follow up as needed
[2017-11-07 13:10] LABS: ALANINE AMINOTRANSFERASE 17 U/L (9-52); ALBUMIN 3.6 g/dL (3.5-5.0); ALKALINE PHOSPHATASE 234 U/L (38-126); ANION GAP 11 (5-19); ASPARTATE AMINO TRANSFERASE 18 U/L (14-36); BILIRUBIN,DIRECT 0.5 mg/dL (0.0-0.4); BILIRUBIN,TOTAL 1.3 mg/dL (0.2-1.3); BLOOD UREA NITROGEN 10 mg/dL (7-20); CALCIUM 9.3 mg/dL (8.4-10.2); CARBON DIOXIDE 26 mmol/L (22-30); CHLORIDE 105 mmol/L (98-107); GLUCOSE 252 mg/dL (75-110); LIPASE 195.4 U/L (23-300); POTASSIUM 4.4 mmol/L (3.6-5.0); SODIUM 142.2 mmol/L (137-145); TOTAL PROTEIN 7.2 g/dL (6.3-8.2)
[2017-11-07 13:11] LABS: CREATINE KINASE < 20 U/L (30-135)
--- NOTE | 2017-11-07 13:29 | EKG REPORT ---
SEVERITY:- ABNORMAL ECG - SINUS TACHYCARDIA CONSIDER ANTEROSEPTAL INFARCT BORDERLINE PROLONGED QT INTERVAL : Confirmed by: Adam Bah MD 07-Nov-2017 13:28:40
--- NOTE | 2017-11-07 13:34 | RADIOLOGY REPORT (SQ) ---
EXAM DESCRIPTION: CT ABD/PELVIS WITH IV ONLY COMPLETED DATE/TIME: 11/07/2017 12:56 pm REASON FOR STUDY: LUQ and LLQ tenderness, N/V, fevers COMPARISON: May 2017 TECHNIQUE: CT scan of the abdomen and pelvis performed using helical scanning technique with dynamic intravenous contrast injection. No oral contrast. Images reviewed with lung, soft tissue, and bone windows. Reconstructed coronal and sagittal MPR images reviewed. Delayed images for evaluation of the urinary system also acquired. All images stored on PACS. All CT scanners at this facility use dose modulation, iterative reconstruction, and/or weight based d osing when appropriate to reduce radiation dose to as low as reasonably achievable (ALARA). [facility]: Dose Right [facility]: CareDose [facility]: Dose Right [facility]: Teradose 4D [facility]: BridgeLux CONTRAST TYPE AND DOSE: contrast/concentration: Isovue 370.00 mg/ml; Total Contrast Delivered: 84.0 ml; Total Saline Delivered: 72.0 ml RENAL FUNCTION: Creatinine 0.59 RADIATION DOSE: CT Rad equipment meets quality standard of care and radiation dose reduction techniq ues were employed. CTDIvol: 18.8 - 20.2 mGy. DLP: 2051 mGy-cm.. LIMITATIONS: None. FINDINGS: LOWER CHEST: No significant findings. No nodules or infiltrates. LIVER: Normal size. No masses. No dilated ducts. SPLEEN: The spleen remains enlarged and is unchanged in configuration. No focal splenic abnormalitie s are identified PANCREAS: No masses. No significant calcifications. No adjacent inflammation or peripancreatic fluid collections. Pancreatic duct not dilated. GALLBLADDER: Status post cholecystectomy ADRENAL GLANDS: No significant masses or asymmetry. RIGHT KIDNEY AND URETER: No solid masses. Small renal cyst appears stable. No significant calcific ations. No hydronephrosis or hydroureter. LEFT KIDNEY AND URETER: No solid masses. Tiny renal cyst appears stable. No significant calcificat ions. No hydronephrosis or hydroureter. AORTA AND VESSELS: No aneurysm. No dissection. Renal arteries, SMA, celiac without stenosis. Extensi ve vascular calcifications are identified. RETROPERITONEUM: No retroperitoneal adenopathy, hemorrhage or masses. BOWEL AND PERITONEAL CAVITY: No masses or inflammatory changes. No free fluid or peritoneal masses. Moderate amount of fecal material is again identified throughout the colon. APPENDIX: Status post appendectomy PELVIS: No mass. No free fluid. Tiny amount of air is identified in the bladder of uncertain etiolo gy or significance. The bladder is mildly distended. Clinical correlation is recommended. This cou ld be related to recent instrumentation. The possibility of an infectious process cannot be excluded . ABDOMINAL WALL: No masses. Small umbilical hernia is again identified containing fat. There is a sm all focal gas collection in the subcutaneous fat in the right pelvis anterior laterally which may rep resent an injection site. BONES: No significant or acute findings. OTHER: No other significant finding. IMPRESSION: Splenomegaly unchanged from the previous study without focal splenic abnormalities being identified. Tiny amount of air in the bladder as noted above of uncertain etiology or significance. Clinical correlation is recommended. Moderate amount of fecal material throughout the colon. Othe r findings as noted above TECHNICAL DOCUMENTATION: JOB ID: [id number] Quality ID # [id number]: Final reports with documentation of one or more dose reduction techniques (e.g., Au tomated exposure control, adjustment of the mA and/or kV according to patient size, use of iterative reconstruction technique) 2010 [employer]- All Rights Reserved Reading location - IP/workstation name: [email or web address]
[2017-11-07 15:17] LABS: APPEARANCE,URINE SLIGHTLY-CLOUDY; BILIRUBIN,URINE NEGATIVE (NEGATIVE); COLOR,URINE YELLOW; GLUCOSE, URINE 50 mg/dL (NEGATIVE); KETONES,URINE TRACE mg/dL (NEGATIVE); LEUKOCYTE ESTERASE,URINE SMALL (NEGATIVE); NITRITE,URINE NEGATIVE (NEGATIVE); PROTEIN,URINE NEGATIVE (NEGATIVE); URINE SPECIFIC GRAVITY 1.024; UROBILINOGEN,URINE NEGATIVE mg/dL (<2.0)
[2017-11-07 15:25] LABS: HEMOGLOBIN 13.4 g/dL (12.0-15.5); MEAN CORPUSCULAR HEMOGLOBIN 18.3 pg (27.0-33.4); MEAN CORPUSCULAR HGB CONC 30.4 g/dL (32.0-36.0); MEAN CORPUSCULAR VOLUME 60 fl (80-97); PLATELET COUNT 375 10^3/uL (150-450); RED BLOOD COUNT 7.32 10^6/uL (3.72-5.28); RED CELL DISTRIBUTION WIDTH 23.5 % (11.5-14.0)
[2017-11-07 15:51] LABS: ABSOLUTE LYMPHOCYTES# (MANUAL) 1.2 10^3/uL (0.5-4.7); ABSOLUTE MONOCYTES # (MANUAL) 1.2 10^3/uL (0.1-1.4); ABSOLUTE NEUTROPHILS# (MANUAL) 35.5 10^3/uL (1.7-8.2); BAND NEUTROPHILS % (MANUAL) 6 % (3-5); BASOPHILS % (MANUAL) 0 % (0-2); EOSINOPHILS % (MANUAL) 2 % (0-6); LYMPHOCYTES % (MANUAL) 3 % (13-45); MONOCYTES % (MANUAL) 3 % (3-13); SEGMENTED NEUTROPHILS % (MAN) 86 % (42-78); TOTAL CELLS COUNTED 100
[2017-11-07 15:53] LABS: ANISOCYTOSIS 3+; HYPOCHROMASIA 2+; PLATELET COMMENT ADEQUATE; POIKILOCYTOSIS 2+; POLYCHROMASIA SLIGHT; TOXIC GRANULATION SLIGHT
[2017-11-07 16:04] LABS: WHITE BLOOD COUNT 38.6 10^3/uL (4.0-10.5)
== END 2017-11-07 18:00 | disposition home or self-care (01) ==
LOC: ER 10:51
DX: R11.2 Nausea with vomiting, unspecified (principal); R10.12 Left upper quadrant pain; R10.32 Left lower quadrant pain; R50.9 Fever, unspecified; R00.0 Tachycardia, unspecified; R16.1 Splenomegaly, not elsewhere classified; D72.829 Elevated white blood cell count, unspecified; I10 Essential (primary) hypertension; E11.9 Type 2 diabetes mellitus without complications; Z79.4 Long term (current) use of insulin; Z87.891 Personal history of nicotine dependence; Z87.440 Personal history of urinary (tract) infections; Z88.5 Allergy status to narcotic agent; Z85.828 Personal history of other malignant neoplasm of skin; Z86.14 Personal history of Methicillin resistant Staphylococcus aureus infection; Z90.49 Acquired absence of other specified parts of digestive tract; Z90.710 Acquired absence of both cervix and uterus
CPT/HCPCS: 93005; 99285; 96360; 36415; 82550; 83605; 83690; 85025; 80053; 81001; 84484; 74177; 93010; J7030

== ENCOUNTER 2017-11-09 14:36 | Emergency (ER) | payer MEDICARE, OTHER ==
[2017-11-09] MEDS ORDERED: NORMAL SALINE 1000 ML 1,000 ML IV ONE (15:07)
[2017-11-09] MEDS ORDERED: PROMETHAZINE HCL INJ 25 MG/1 ML VIAL IM ONE (15:10)
--- NOTE | 2017-11-09 15:32 | ER Document Report ---
ED General - General Chief Complaint: Chest Pain > 30 Stated Complaint: CHEST PAIN Time Seen by Provider: 11/09/17 14:48 TRAVEL OUTSIDE OF THE [place] IN LAST 30 DAYS: No - HPI Patient complains to provider of: Chest pain nausea vomiting Notes: Patient coming in for evaluation chest pain nausea vomiting feeling unwell. States started last night. Patient has multiple times of vomiting also having constipation. Patient with multiple recent visits to the ER and recent admissions for UTI possible pyelonephritis. Patient also states she recently told she had a slight heart attack while she was in the hospital. Patient is currently being worked up for a leukocytosis recently underwent a bone marrow biopsy. Patient states she is not taking any medication at home except for her antibiotic. Patient was to be no obvious distress upon my evaluation patient states chest pain occurred during the episodes of nausea vomiting. Center of the chest. Patient also is concerned about constipation is that she has not had a bowel movement in 4 days. - Related Data Allergies/Adverse Reactions: morphine Allergy (Verified 11/09/17 14:38) Past Medical History - Social History Smoking Status: Unknown if Ever Smoked Chew tobacco use (# tins/day): No Frequency of alcohol use: None Drug Abuse: None Family History: CAD, COPD, DM, Hyperlipidemia, Hypertension, Malignancy - Father with lung cancer, Other Patient has suicidal ideation: No Patient has homicidal ideation: No - Past Medical History Cardiac Medical History: Reports: Hx Congestive Heart Failure - Diastolic, Hx Heart Attack - EKG suggests probable prior infarction, Hx Hypercholesterolemia, Hx Hypertension, Hx Pulmonary Embolism - Distant history Pulmonary Medical History: Denies: Hx Asthma, Hx COPD, Hx Sleep Apnea Neurological Medical History: Denies: Hx Seizures Endocrine Medical History: Reports: Hx Diabetes Mellitus Type 1, Hx Diabetes Mellitus Type 2. Denies: Hx Hyperthyroidism, Hx Hypothyroidism Renal/ Medical History: Denies: Hx End Stage Renal Disease, Hx Peritoneal Dialysis Malignancy Medical History: Reports: Hx Skin Cancer - Excised from her nose. GI Medical History: Reports: Hx Gastroesophageal Reflux Disease. Denies: Hx Cirrhosis, Hx Hepatitis Musculoskeltal Medical History: Reports Hx Arthritis, Reports Hx Musculoskeletal Deformity Skin Medical History: Denies Hx Eczema, Denies Hx Psoriasis Psychiatric Medical History: Reports: Hx Anxiety, Hx Depression Infectious Medical History: Reports: Hx MRSA - Quite distant history. Denies: Hx C-Diff, Hx Hepatitis Past Surgical History: Reports: Hx Abdominal Surgery, Hx Appendectomy, Hx Cholecystectomy, Hx Hysterectomy, Hx Tonsillectomy, Other - Cardiac loop recorder, bilateral cataract surgery - Immunizations Hx Diphtheria, Pertussis, Tetanus Vaccination: No Hx Pneumococcal Vaccination: 04/29/13 Review of Systems - Review of Systems Constitutional: No symptoms reported EENT: No symptoms reported Cardiovascular: Chest pain Respiratory: No symptoms reported Gastrointestinal: Abdominal pain, Diarrhea, Nausea, Vomiting Genitourinary: No symptoms reported Female Genitourinary: No symptoms reported Musculoskeletal: No symptoms reported Skin: No symptoms reported Hematologic/Lymphatic: No symptoms reported Neurological/Psychological: No symptoms reported -: Yes All other systems reviewed and negative Physical Exam - Vital signs Vitals: Pulse Ox 85 L 11/09/17 14:39 Interpretation: Normal - General General appearance: Appears well, Alert - HEENT Head: Normocephalic, Atraumatic Eyes: Normal Pupils: PERRL - Respiratory Respiratory status: No respiratory distress Chest status: Nontender Breath sounds: Normal Chest palpation: Normal - Cardiovascular Rhythm: Regular Heart sounds: Normal auscultation Murmur: No - Abdominal Inspection: Normal Distension: No distension Bowel sounds: Normal Tenderness: Nontender Organomegaly: No organomegaly - Back Back: Normal, Nontender - Extremities General upper extremity: Normal inspection, Nontender, Normal color, Normal ROM , Normal temperature General lower extremity: Normal inspection, Nontender, Normal color, Normal ROM , Normal temperature, Normal weight bearing. No: Cynthia's sign - Neurological Neuro grossly intact: Yes Cognition: Normal Orientation: AAOx4 Ziyad Coma Scale Eye Opening: Spontaneous [place] Coma Scale Verbal: Oriented Ziyad Coma Scale Motor: Obeys Commands [place] Coma Scale Total: 15 Speech: Normal Motor strength normal: LUE, RUE, LLE, RLE Sensory: Normal - Psychological Associated symptoms: Normal affect, Normal mood - Skin Skin Temperature: Warm Skin Moisture: Dry Skin Color: Normal Course - Re-evaluation Re-evalutation: 11/09/17 17:55 Patient coming in today for evaluation chest pain nausea vomiting constipation. Laboratory studies again shows leukemoid reaction with increase in her white blood cell count. Unfortunately because of this increased were unable to perform an H&H however patient is not having bleeding patient had an H&H 48 hours ago otherwise stable. See a need to repeat H&H at this time patient also had a urinalysis approximate 48 hours ago and was otherwise negative. Patient is Javad on antibiotics for underlying urinary tract infection. Did review the urine culture results and the antibiotic does look to be appropriate. Patient review of past medical visit is also shows she recently had a stress test and symptoms otherwise negative. EKG does not show any changes troponin here is negative. Discussed leukemoid reaction with oncology team recommend symptomatic support and discharge home continue to follow-up on the . - Vital Signs Vital signs: Temp Pulse Resp BP Pulse Ox 19 162/106 H 96 11/09/17 18:00 11/09/17 17:01 11/09/17 18:00 - Laboratory Result Diagrams: 11/09/17 15:40 11/09/17 15:40 Laboratory results interpreted by me: 11/09/17 11/09/17 11/09/17 15:40 15:40 15:40 WBC 59.6 H* Plt Count 469 H Manual Hct 54.0 H Seg Neuts % (Manual) 89 H Lymphocytes % (Manual) 2 L Abs Neuts (Manual) 54.8 H Abs Monocytes (Manual) 2.4 H Abs Basophils (Manual) 0.6 H PT 16.6 H Glucose 331 H Total Bilirubin 1.5 H Direct Bilirubin 0.6 H Alkaline Phosphatase 255 H Creatine Kinase 21 L Discharge - Discharge Clinical Impression: Leukocytosis, Urinary tract infection under treatment Nausea & vomiting Qualifiers: Vomiting type: unspecified Vomiting Intractability: non-intractable Qualified Code(s): R11.2 - Nausea with vomiting, unspecified Condition: Good Disposition: HOME, SELF-CARE Instructions: Vomiting ([facility]) Additional Instructions: Your laboratory studies not show any acute changes. I did discuss your leukocytosis again with the oncology team here at [facility] recommends to follow-up on your appointment later this month. I do believe your nausea vomiting is more likely related to the antibiotics that you are currently on for UTI or a underlying virus. Please take medications as prescribed. I recommend a stool softener to help with your bowel movements if your only noted bowel regimen at home I would continue with those medications. Follow-up with your primary care physician return to the ER for any concerns. Prescriptions: Docusate Sodium [Colace 100 mg Capsule] 100 mg PO DAILY #30 capsule Ondansetron [Zofran Odt] 4 mg PO Q6 PRN #30 tab.rapdis PRN Reason: For Nausea/Vomiting Referrals: ARCOT,JAVED, MD [Primary Care Provider] - Follow up as needed
[2017-11-09 16:00] LABS: VENOUS BLOOD BASE EXCESS 0.2 mmol/L; VENOUS BLOOD HCO3 24.9 mmol/L (20-32); VENOUS BLOOD PCO2 40.6 mmHg (35-63); VENOUS BLOOD PH 7.41 (7.30-7.42)
[2017-11-09 16:06] LABS: PLATELET COUNT 469 10^3/uL (150-450)
[2017-11-09 16:14] LABS: INTERNATIONAL RATION (INR) 1.26; PROTHROMBIN TIME 16.6 SEC (11.4-15.4)
[2017-11-09 16:17] LABS: ALANINE AMINOTRANSFERASE 24 U/L (9-52); ALBUMIN 3.7 g/dL (3.5-5.0); ALKALINE PHOSPHATASE 255 U/L (38-126); ANION GAP 13 (5-19); ASPARTATE AMINO TRANSFERASE 23 U/L (14-36); BILIRUBIN,DIRECT 0.6 mg/dL (0.0-0.4); BILIRUBIN,TOTAL 1.5 mg/dL (0.2-1.3); BLOOD UREA NITROGEN 20 mg/dL (7-20); CALCIUM 9.6 mg/dL (8.4-10.2); CARBON DIOXIDE 25 mmol/L (22-30); CHLORIDE 102 mmol/L (98-107); CREATINE KINASE 21 U/L (30-135); GLUCOSE 331 mg/dL (75-110); POTASSIUM 4.1 mmol/L (3.6-5.0); SODIUM 139.7 mmol/L (137-145); TOTAL PROTEIN 7.6 g/dL (6.3-8.2)
--- NOTE | 2017-11-09 16:24 | RADIOLOGY REPORT (SQ) ---
EXAM DESCRIPTION: ACUTE ABDOMEN SERIES COMPLETED DATE/TIME: 11/09/2017 4:13 pm REASON FOR STUDY: cp constipation COMPARISON: Abdominal and pelvic CT scan dated 11/07/2017 NUMBER OF VIEWS: Three views. TECHNIQUE: Frontal chest, supine abdomen and upright/decubitus abdomen radiographic images acquired. LIMITATIONS: None. FINDINGS: CHEST: Lungs clear of infiltrates. FREE AIR: None. No abnormal gas collections. BOWEL GAS PATTERN: Nonobstructive pattern. No dilated loops or air fluid levels. CALCIFICATIONS: No suspicious calcifications. HARDWARE: Surgical clips are again identified in the right upper quadrant. SOFT TISSUES: No gross mass or suggestion of organomegaly. BONES: No acute fracture. No worrisome bone lesions. OTHER: No other significant finding. IMPRESSION: NO RADIOGRAPHIC EVIDENCE FOR ACUTE ABDOMINAL DISEASE. TECHNICAL DOCUMENTATION: JOB ID: [id number] [employer] All Rights Reserved Reading location - IP/workstation name: [email or web address]
[2017-11-09 16:28] LABS: WHITE BLOOD COUNT 59.6 10^3/uL (4.0-10.5)
[2017-11-09 16:38] LABS: ABSOLUTE LYMPHOCYTES# (MANUAL) 1.2 10^3/uL (0.5-4.7); ABSOLUTE MONOCYTES # (MANUAL) 2.4 10^3/uL (0.1-1.4); ABSOLUTE NEUTROPHILS# (MANUAL) 54.8 10^3/uL (1.7-8.2); BAND NEUTROPHILS % (MANUAL) 3 % (3-5); BASOPHILS % (MANUAL) 1 % (0-2); EOSINOPHILS % (MANUAL) 1 % (0-6); LYMPHOCYTES % (MANUAL) 2 % (13-45); MONOCYTES % (MANUAL) 4 % (3-13); SEGMENTED NEUTROPHILS % (MAN) 89 % (42-78); TOTAL CELLS COUNTED 100
[2017-11-09 16:39] LABS: ANISOCYTOSIS 3+; OVALOCYTES SLIGHT; PLATELET COMMENT ADEQUATE; PLATELET GIANT PRESENT; PLATELET LARGE PRESENT; POIKILOCYTOSIS SLIGHT; POLYCHROMASIA 1+; SCHISTOCYTES SLIGHT; TOXIC GRANULATION SLIGHT; TOXIC VACUOLATION PRESENT
[2017-11-09 17:47] VITALS: BP 162/106
[2017-11-09] MEDS ORDERED: METOPROLOL TARTRATE 50 MG TABLET PO ONE (18:03)
--- NOTE | 2017-11-09 23:39 | EKG REPORT ---
SEVERITY:- ABNORMAL ECG - SINUS TACHYCARDIA LEFT VENTRICULAR HYPERTROPHY ANTERIOR Q WAVES, POSSIBLY DUE TO LVH VERSUS OLD ANTERIOR IN. : Confirmed by: Adam Bah MD 09-Nov-2017 18:56:49
== END 2017-11-09 18:59 | disposition home or self-care (01) ==
LOC: ER 14:36
DX: N39.0 Urinary tract infection, site not specified (principal); D72.829 Elevated white blood cell count, unspecified; R11.2 Nausea with vomiting, unspecified; R07.9 Chest pain, unspecified; K59.00 Constipation, unspecified; I50.9 Heart failure, unspecified; E78.00 Pure hypercholesterolemia, unspecified; I11.0 Hypertensive heart disease with heart failure; I25.2 Old myocardial infarction; Z88.6 Allergy status to analgesic agent; Z86.14 Personal history of Methicillin resistant Staphylococcus aureus infection; Z90.49 Acquired absence of other specified parts of digestive tract; Z90.710 Acquired absence of both cervix and uterus
CPT/HCPCS: 93005; 99285; 96372; 96360; 36415; 87040; 82962; 82550; 85025; 85610; 80053; 84484; 82803; 83605; 74022; 93010; A9270; J2550; J7030

== ENCOUNTER 2017-11-13 18:55 | Emergency (ER) | payer MEDICARE, OTHER ==
[2017-11-13 22:29] LABS: HEMATOCRIT 46.1 % (36.0-47.0); HEMOGLOBIN 14.5 g/dL (12.0-15.5); MEAN CORPUSCULAR HEMOGLOBIN 19.1 pg (27.0-33.4); MEAN CORPUSCULAR HGB CONC 31.4 g/dL (32.0-36.0); MEAN CORPUSCULAR VOLUME 61 fl (80-97); RED BLOOD COUNT 7.58 10^6/uL (3.72-5.28); RED CELL DISTRIBUTION WIDTH 24.5 % (11.5-14.0)
[2017-11-13 22:51] LABS: ABSOLUTE LYMPHOCYTES# (MANUAL) 1.3 10^3/uL (0.5-4.7); ABSOLUTE MONOCYTES # (MANUAL) 0.9 10^3/uL (0.1-1.4); ABSOLUTE NEUTROPHILS# (MANUAL) 41.3 10^3/uL (1.7-8.2); BAND NEUTROPHILS % (MANUAL) 4 % (3-5); BASOPHILS % (MANUAL) 0 % (0-2); EOSINOPHILS % (MANUAL) 0 % (0-6); LYMPHOCYTES % (MANUAL) 3 % (13-45); MONOCYTES % (MANUAL) 2 % (3-13); SEGMENTED NEUTROPHILS % (MAN) 91 % (42-78); TOTAL CELLS COUNTED 100
[2017-11-13] MEDS ORDERED: NORMAL SALINE 500 ML IV ONE (22:54)
[2017-11-13 22:57] LABS: TOXIC VACUOLATION PRESENT
[2017-11-13 22:59] LABS: ANISOCYTOSIS 3+; BURR CELLS SLIGHT; HYPOCHROMASIA 2+; POIKILOCYTOSIS 1+
[2017-11-13 23:00] LABS: OVALOCYTES 1+; PLATELET CLUMPS PRESENT; PLATELET COMMENT INCREASED; TEAR DROP CELLS SLIGHT
[2017-11-13 23:04] LABS: PLATELET COUNT 481 10^3/uL (150-450); WHITE BLOOD COUNT 43.5 10^3/uL (4.0-10.5)
[2017-11-13 23:10] LABS: ALANINE AMINOTRANSFERASE 22 U/L (9-52); ALBUMIN 3.3 g/dL (3.5-5.0); ALKALINE PHOSPHATASE 228 U/L (38-126); ANION GAP 9 (5-19); ASPARTATE AMINO TRANSFERASE 15 U/L (14-36); BILIRUBIN,DIRECT 0.5 mg/dL (0.0-0.4); BILIRUBIN,TOTAL 0.9 mg/dL (0.2-1.3); BLOOD UREA NITROGEN 11 mg/dL (7-20); CARBON DIOXIDE 28 mmol/L (22-30); CHLORIDE 103 mmol/L (98-107); GLUCOSE 254 mg/dL (75-110); LIPASE 248.1 U/L (23-300); POTASSIUM 4.2 mmol/L (3.6-5.0); SODIUM 139.8 mmol/L (137-145); TOTAL PROTEIN 6.8 g/dL (6.3-8.2)
[2017-11-13 23:14] LABS: CREATINE KINASE < 20 U/L (30-135)
[2017-11-13 23:21] LABS: CREATINE KINASE MB 0.35 ng/mL (<4.55)
[2017-11-13 23:29] LABS: TROPONIN I < 0.012 ng/mL
[2017-11-14 00:10] LABS: APPEARANCE,URINE CLEAR; BILIRUBIN,URINE NEGATIVE (NEGATIVE); COLOR,URINE YELLOW; GLUCOSE, URINE 150 mg/dL (NEGATIVE); KETONES,URINE NEGATIVE (NEGATIVE); LEUKOCYTE ESTERASE,URINE NEGATIVE (NEGATIVE); NITRITE,URINE NEGATIVE (NEGATIVE); PROTEIN,URINE 30 mg/dL (NEGATIVE); URINE SPECIFIC GRAVITY 1.013
[2017-11-14] MEDS ORDERED: DIPHENHYDRAMINE HCL 50 MG/ML VIAL IV ONE (00:11)
[2017-11-14] MEDS ORDERED: PROMETHAZINE HCL 25 MG SUPP.RECT PR ONE (00:17)
[2017-11-14] MEDS ORDERED: METOPROLOL TARTRATE 50 MG TABLET PO ONE (00:18)
[2017-11-14] MEDS ORDERED: INSULIN REG, HUMAN 100 UNIT/ML 3 ML VIAL (PYX) SUBCUT ONE (00:27)
[2017-11-14] MEDS ORDERED: PROMETHAZINE HCL 25 MG TABLET PO ONE (01:06)
--- NOTE | 2017-11-14 01:40 | RADIOLOGY REPORT (SQ) ---
EXAM DESCRIPTION: HIP RIGHT AP/LATERAL CLINICAL HISTORY: 82 years, Female, fall, hip pain COMPARISON: None. NUMBER OF VIEWS: 2 Findings: Bones, joints, and soft tissues of HIP RIGHT AP/LATERAL appear intact. Moderate osteitis condensans. pubis. IMPRESSION: No acute findings.
--- NOTE | 2017-11-14 01:44 | RADIOLOGY REPORT (SQ) ---
EXAM DESCRIPTION: ACUTE ABDOMEN SERIES CLINICAL HISTORY: 82 years, Female, vomiting COMPARISON: 11/09/2017 Technique: Four views. LIMITATIONS: None. FINDINGS: Small atelectasis or scar of the left lower lobe. Atherosclerosis. Right upper abdominal clips. Electronic device overlies the left hemithorax. Moderate left paracentral abdominal protrusion of the abdomen. [id number] disc desiccation. IMPRESSION: No acute findings.
--- NOTE | 2017-11-14 02:13 | ER Document Report ---
ED GI/ - General Chief Complaint: Nausea Stated Complaint: NAUSEA Time Seen by Provider: 11/13/17 21:28 Mode of Arrival: Medic Information source: Patient Notes: Patient presents complaining of a one-week history of nausea. Patient denies any active vomiting. Patient denies any diarrhea or fever. Patient additionally complains of right hip pain she states that she rolled out of her bed 3 days ago and landed on the floor. Patient denies any urinary symptoms. Patient denies any abdominal tenderness. TRAVEL OUTSIDE OF THE [place] IN LAST 30 DAYS: No - HPI Patient complains to provider of: Other - Nausea. No: Abdominal pain, Flank pain, Vomiting Onset: Last week Timing/Duration: Persistent Quality of pain: Achy Pain Level: 3 Location: Other - Right hip. No: Chest pain, Epigastric Vaginal bleeding (Compared to normal period): None Associated symptoms: Nausea, Other - Right hip pain. denies: Diarrhea, Dizzy, Dysuria, Fever, Urinary hesitancy, Urinary frequency, Urinary retention, Vomiting Exacerbated by: Denies Relieved by: Denies Similar symptoms previously: Yes Recently seen / treated by doctor: Yes - Related Data Allergies/Adverse Reactions: morphine Allergy (Verified 11/13/17 18:56) Past Medical History - General Information source: Patient - Social History Smoking Status: Never Smoker Frequency of alcohol use: None Drug Abuse: None Occupation: None Lives with: Family Family History: CAD, COPD, DM, Hyperlipidemia, Hypertension, Malignancy - Father with lung cancer, Other Patient has suicidal ideation: No Patient has homicidal ideation: No - Past Medical History Cardiac Medical History: Reports: Hx Congestive Heart Failure - Diastolic, Hx Heart Attack - EKG suggests probable prior infarction, Hx Hypercholesterolemia, Hx Hypertension, Hx Pulmonary Embolism - Distant history Pulmonary Medical History: Denies: Hx Asthma, Hx COPD, Hx Sleep Apnea Neurological Medical History: Denies: Hx Seizures Endocrine Medical History: Reports: Hx Diabetes Mellitus Type 1, Hx Diabetes Mellitus Type 2. Denies: Hx Hyperthyroidism, Hx Hypothyroidism Renal/ Medical History: Denies: Hx End Stage Renal Disease, Hx Peritoneal Dialysis Malignancy Medical History: Reports: Hx Skin Cancer - Excised from her nose. GI Medical History: Reports: Hx Gastroesophageal Reflux Disease. Denies: Hx Cirrhosis, Hx Hepatitis Musculoskeltal Medical History: Reports Hx Arthritis, Reports Hx Musculoskeletal Deformity Skin Medical History: Denies Hx Eczema, Denies Hx Psoriasis Psychiatric Medical History: Reports: Hx Anxiety, Hx Depression Infectious Medical History: Reports: Hx MRSA - Quite distant history. Denies: Hx C-Diff, Hx Hepatitis Past Surgical History: Reports: Hx Abdominal Surgery, Hx Appendectomy, Hx Cholecystectomy, Hx Hysterectomy, Hx Tonsillectomy, Other - Cardiac loop recorder, bilateral cataract surgery - Immunizations Hx Diphtheria, Pertussis, Tetanus Vaccination: No Hx Pneumococcal Vaccination: 04/29/13 Review of Systems - Review of Systems Constitutional: No symptoms reported. denies: Fever, Recent illness EENT: No symptoms reported Cardiovascular: No symptoms reported. denies: Chest pain, Palpitations Respiratory: No symptoms reported. denies: Cough, Short of breath Gastrointestinal: Nausea. denies: Abdominal pain, Diarrhea, Vomiting, Constipation Genitourinary: No symptoms reported. denies: Dysuria, Flank pain Female Genitourinary: No symptoms reported Musculoskeletal: Joint pain - Right hip pain. denies: Back pain Hematologic/Lymphatic: No symptoms reported Neurological/Psychological: No symptoms reported. denies: Headaches Physical Exam - Vital signs Vitals: Temp Pulse Resp BP Pulse Ox 98.2 F 116 H 22 H 164/86 H 96 11/13/17 19:19 11/13/17 19:19 11/13/17 19:19 11/13/17 19:19 11/13/17 19:19 - General General appearance: Appears well, Alert In distress: None - HEENT Head: Normocephalic, Atraumatic Eyes: Normal Conjunctiva: Normal Eyelashes: Normal Nasal: Normal Mouth/Lips: Normal Pharynx: Normal Neck: Normal, Supple. No: Lymphadenopathy - Respiratory Respiratory status: No respiratory distress Chest status: Nontender Breath sounds: Normal Chest palpation: Normal - Cardiovascular Rhythm: Regular Heart sounds: S1 appreciated, S2 appreciated Murmur: No - Abdominal Inspection: Obese Distension: No distension Bowel sounds: Normal Tenderness: Nontender Organomegaly: No organomegaly - Back Back: Normal. No: Deformity/step-off, CVA tenderness, Vertebra tenderness - Extremities General upper extremity: Normal inspection, Normal ROM General lower extremity: Tender - right posterior hip tenderness, Normal ROM Thigh: Normal, Nontender Knee: Normal, Nontender - Neurological Neuro grossly intact: Yes Cognition: Normal Ziyad Coma Scale Eye Opening: Spontaneous [place] Coma Scale Verbal: Oriented Ziyad Coma Scale Motor: Obeys Commands Ziyad Coma Scale Total: 15 - Psychological Associated symptoms: Normal affect, Normal mood - Skin Skin Temperature: Warm Skin Moisture: Dry Skin Color: Pale Course - Re-evaluation Re-evalutation: 11/14/17 02:08 Patient without any vomiting during ER stay. Patient has tolerated oral fluids as well as her oral medications. Consulted with Dr. Kulkarni regarding patient presentation and diagnostic evaluation. Patient does have a history of leukocytosis and is being followed by oncology. Patient reports improvement of nausea symptoms with the Phenergan versus Zofran. Patient also reports improvement of nausea with use of smelling alcohol prep pads. Discussed worsening symptoms that patient should return immediately for. Patient encouraged to be compliant with her usual medications including her antihypertensive medication. Patient's abdomen continues soft, nontender. Patient nontoxic in appearance. - Vital Signs Vital signs: Temp Pulse Resp BP Pulse Ox 98.1 F 116 H 17 173/99 H 90 L 11/14/17 02:44 11/13/17 19:19 11/14/17 02:01 11/14/17 02:01 11/14/17 02:01 - Laboratory Result Diagrams: 11/13/17 21:55 11/13/17 22:39 Laboratory results interpreted by me: 11/13/17 11/13/17 11/13/17 21:55 22:39 23:37 WBC 43.5 H* RBC 7.58 H MCV 61 L MCH 19.1 L MCHC 31.4 L RDW 24.5 H Plt Count 481 H Seg Neuts % (Manual) 91 H Lymphocytes % (Manual) 3 L Monocytes % (Manual) 2 L Abs Neuts (Manual) 41.3 H Glucose 254 H Direct Bilirubin 0.5 H Alkaline Phosphatase 228 H Creatine Kinase < 20 L Albumin 3.3 L Urine Protein 30 H Urine Glucose (UA) 150 H Urine Urobilinogen 2.0 H 11/14/17 02:08 Labs- Entire Visit 11/13/17 11/13/17 11/13/17 21:55 21:55 21:55 WBC 43.5 H* RBC 7.58 H Hgb 14.5 Hct 46.1 MCV 61 L MCH 19.1 L MCHC 31.4 L RDW 24.5 H Plt Count 481 H Total Counted 100 Seg Neutrophils % Not Reportable Seg Neuts % (Manual) 91 H Band Neutrophils % 4 Lymphocytes % Not Reportable Lymphocytes % (Manual) 3 L Monocytes % Not Reportable Monocytes % (Manual) 2 L Eosinophils % Not Reportable Eosinophils % (Manual) 0 Basophils % Not Reportable Basophils % (Manual) 0 Absolute Neutrophils Not Reportable Abs Neuts (Manual) 41.3 H Absolute Lymphocytes Not Reportable Abs Lymphs (Manual) 1.3 Absolute Monocytes Not Reportable Abs Monocytes (Manual) 0.9 Absolute Eosinophils Not Reportable Absolute Eos (Manual) 0.0 Absolute Basophils Not Reportable Abs Basophils (Manual) 0.0 Toxic Vacuolation PRESENT Clumped Platelets PRESENT Platelet Comment INCREASED Hypochromasia 2+ Poikilocytosis 1+ Anisocytosis 3+ Microcytosis 3+ Tear Drop Cells SLIGHT Ovalocytes 1+ Goodell Cells SLIGHT Sodium Cancelled Potassium Cancelled Chloride Cancelled Carbon Dioxide Cancelled Anion Gap Cancelled BUN Cancelled Creatinine Cancelled Est GFR ( Amer) Cancelled Est GFR (Non-Af Amer) Cancelled Glucose Cancelled Calcium Cancelled Total Bilirubin Cancelled Direct Bilirubin Cancelled Neonat Total Bilirubin Cancelled Neonat Direct Bilirubin Cancelled Neonat Indirect Bili Cancelled AST Cancelled ALT Cancelled Alkaline Phosphatase Cancelled Creatine Kinase Cancelled CK-MB (CK-2) Cancelled Troponin I Cancelled Total Protein Cancelled Albumin Cancelled Lipase Cancelled Urine Color Urine Appearance Urine pH Ur Specific [place] Urine Protein Urine Glucose (UA) Urine Ketones Urine Blood Urine Nitrite Urine Bilirubin Urine Urobilinogen Ur Leukocyte Esterase Urine WBC (Auto) Urine RBC (Auto) Squamous Epi Cells Auto Urine Ascorbic Acid 11/13/17 11/13/17 11/13/17 22:39 22:39 23:37 WBC RBC Hgb Hct MCV MCH MCHC RDW Plt Count Total Counted Seg Neutrophils % Seg Neuts % (Manual) Band Neutrophils % Lymphocytes % Lymphocytes % (Manual) Monocytes % Monocytes % (Manual) Eosinophils % Eosinophils % (Manual) Basophils % Basophils % (Manual) Absolute Neutrophils Abs Neuts (Manual) Absolute Lymphocytes Abs Lymphs (Manual) Absolute Monocytes Abs Monocytes (Manual) Absolute Eosinophils Absolute Eos (Manual) Absolute Basophils Abs Basophils (Manual) Toxic Vacuolation Clumped Platelets Platelet Comment Hypochromasia Poikilocytosis Anisocytosis Microcytosis Tear Drop Cells Ovalocytes Goodell Cells Sodium 139.8 Potassium 4.2 Chloride 103 Carbon Dioxide 28 Anion Gap 9 BUN 11 Creatinine 0.76 Est GFR ( Amer) > 60 Est GFR (Non-Af Amer) > 60 Glucose 254 H Calcium 9.0 Total Bilirubin 0.9 Direct Bilirubin 0.5 H Neonat Total Bilirubin Not Reportable Neonat Direct Bilirubin Not Reportable Neonat Indirect Bili Not Reportable AST 15 ALT 22 Alkaline Phosphatase 228 H Creatine Kinase < 20 L CK-MB (CK-2) 0.35 Troponin I < 0.012 Total Protein 6.8 Albumin 3.3 L Lipase 248.1 Urine Color YELLOW Urine Appearance CLEAR Urine pH 6.0 Ur Specific [place] 1.013 Urine Protein 30 H Urine Glucose (UA) 150 H Urine Ketones NEGATIVE Urine Blood NEGATIVE Urine Nitrite NEGATIVE Urine Bilirubin NEGATIVE Urine Urobilinogen 2.0 H Ur Leukocyte Esterase NEGATIVE Urine WBC (Auto) 4 Urine RBC (Auto) 2 Squamous Epi Cells Auto 2 Urine Ascorbic Acid NEGATIVE - Diagnostic Test Radiology reviewed: Reports reviewed Discharge - Discharge Clinical Impression: Right hip pain, Nausea Leukocytosis Qualifiers: Leukocytosis type: unspecified Qualified Code(s): D72.829 - Elevated white blood cell count, unspecified Condition: Stable Disposition: HOME, SELF-CARE Instructions: Leukocytosis ([facility]), Nausea or Vomiting, Nonspecific ([facility]) Additional Instructions: Return immediately for any new or worsening symptoms Followup with your primary care provider, call tomorrow to make a followup appointment Take your nausea medication that you have at home as prescribed You can use the alcohol prep pads to smell to help with your nausea symptoms Be sure to take all of your usual medications as prescribed Prescriptions: Promethazine HCl [Phenergan 25 mg Tablet] 25 mg PO Q6H PRN #10 tablet PRN Reason: Referrals: SOFI GUERRIER MD [Primary Care Provider] - Follow up tomorrow
[2017-11-14 02:44] VITALS: BP 173/99
--- NOTE | 2017-11-14 06:08 | EKG REPORT ---
SEVERITY:- ABNORMAL ECG - SINUS TACHYCARDIA ATRIAL PREMATURE COMPLEX CONSIDER ANTEROSEPTAL INFARCT BORDERLINE PROLONGED QT INTERVAL : Confirmed by: Adam Bah MD 14-Nov-2017 06:08:01
== END 2017-11-14 02:40 | disposition home or self-care (01) ==
LOC: ER 18:55
DX: M25.551 Pain in right hip (principal); R11.0 Nausea; D72.829 Elevated white blood cell count, unspecified; I50.9 Heart failure, unspecified; E78.00 Pure hypercholesterolemia, unspecified; I11.0 Hypertensive heart disease with heart failure; E11.9 Type 2 diabetes mellitus without complications; Z88.6 Allergy status to analgesic agent; I25.2 Old myocardial infarction; Z86.14 Personal history of Methicillin resistant Staphylococcus aureus infection; Z90.710 Acquired absence of both cervix and uterus
CPT/HCPCS: 93005; 99284; 96360; 36415; 82553; 82550; 83690; 85025; 80053; 81001; 84484; 74022; 93010; A9270 ×3; J7040; J1815

== ENCOUNTER 2017-11-14 20:46 | Emergency (ER) | payer MEDICARE, OTHER ==
[2017-11-14] MEDS ORDERED: RINGERS SOLUTION,LACTATED 1,000 ML IV ONE (23:22)
--- NOTE | 2017-11-14 23:24 | ER Document Report ---
ED General - General Chief Complaint: Diarrhea Stated Complaint: DIARRHEA Time Seen by Provider: 11/14/17 22:51 Mode of Arrival: Medic Information source: Patient Notes: 82-year-old female with a history of hypertension, diabetes, coronary artery disease presents with complaint of diarrhea that started 5 hours prior to arrival. Patient states she had a sudden onset of diarrhea and since then has had 6 episodes of nonbloody but mucousy stool. She was seen yesterday in the emergency department for nausea and discharged home. She has had a recent hospitalization for "septicemia" and was discharged 2 weeks prior to arrival. She is currently on antibiotics but is unsure which one. She denies any fever, chills, shortness of breath, abdominal pain. She does state that she had 4 hours of continuous crushing chest pain that has now resolved. Denies any recent travel, sick contacts. TRAVEL OUTSIDE OF THE [place] IN LAST 30 DAYS: No - Related Data Allergies/Adverse Reactions: morphine Allergy (Verified 11/13/17 18:56) Past Medical History - General Information source: Patient - Social History Smoking Status: Never Smoker Frequency of alcohol use: None Drug Abuse: None Lives with: Family Family History: CAD, COPD, DM, Hyperlipidemia, Hypertension, Malignancy - Father with lung cancer, Other - Past Medical History Cardiac Medical History: Reports: Hx Congestive Heart Failure - Diastolic, Hx Heart Attack - EKG suggests probable prior infarction, Hx Hypercholesterolemia, Hx Hypertension, Hx Pulmonary Embolism - Distant history Pulmonary Medical History: Denies: Hx Asthma, Hx COPD, Hx Sleep Apnea Neurological Medical History: Denies: Hx Seizures Endocrine Medical History: Reports: Hx Diabetes Mellitus Type 1, Hx Diabetes Mellitus Type 2. Denies: Hx Hyperthyroidism, Hx Hypothyroidism Renal/ Medical History: Denies: Hx End Stage Renal Disease, Hx Peritoneal Dialysis Malignancy Medical History: Reports: Hx Skin Cancer - Excised from her nose. GI Medical History: Reports: Hx Gastroesophageal Reflux Disease. Denies: Hx Cirrhosis, Hx Hepatitis Musculoskeltal Medical History: Reports Hx Arthritis, Reports Hx Musculoskeletal Deformity Skin Medical History: Denies Hx Eczema, Denies Hx Psoriasis Psychiatric Medical History: Reports: Hx Anxiety, Hx Depression Infectious Medical History: Reports: Hx MRSA - Quite distant history. Denies: Hx C-Diff, Hx Hepatitis Past Surgical History: Reports: Hx Abdominal Surgery, Hx Appendectomy, Hx Cholecystectomy, Hx Hysterectomy, Hx Tonsillectomy, Other - Cardiac loop recorder, bilateral cataract surgery - Immunizations Hx Diphtheria, Pertussis, Tetanus Vaccination: No Hx Pneumococcal Vaccination: 04/29/13 Review of Systems - Review of Systems Constitutional: Weakness. denies: Fever EENT: No symptoms reported Cardiovascular: denies: Chest pain, Palpitations Respiratory: denies: Short of breath Gastrointestinal: Diarrhea, Poor appetite. denies: Abdomen distended, Abdominal pain, Nausea, Vomiting, Blood streaked bowels, Poor fluid intake Genitourinary: denies: Dysuria Musculoskeletal: No symptoms reported Skin: No symptoms reported Physical Exam - Vital signs Vitals: Temp Pulse Resp BP Pulse Ox 98.2 F 87 18 90/42 L 97 11/14/17 21:00 11/14/17 21:00 11/14/17 21:00 11/14/17 21:00 11/14/17 21:00 Interpretation: Normal - General General appearance: Appears well, Alert In distress: None - HEENT Head: Normocephalic, Atraumatic Eyes: Normal Extraocular movements intact: Yes Pupils: PERRL Ears: Normal - Abdominal Inspection: Normal Distension: No distension Bowel sounds: Hyperactive Tenderness: Nontender Organomegaly: No organomegaly - Back Back: Normal, Nontender - Extremities General upper extremity: Normal inspection, Nontender, Normal color, Normal ROM , Normal temperature General lower extremity: Normal inspection, Nontender, Normal color, Normal ROM , Normal temperature, Normal weight bearing. No: Cynthia's sign Course - Re-evaluation Re-evalutation: 11/15/17 03:29 Patient reevaluated and she appears well, she is alert and oriented, she is abdominal pain-free, she has not had an episode of diarrhea since she has been here. She is drinking fluids and able to keep down crackers. 11/16/17 03:09 Laboratory 11/15/17 11/15/17 11/15/17 00:25 00:25 00:25 WBC Cancelled RBC Cancelled Hgb Cancelled Hct Cancelled MCV Cancelled MCH Cancelled MCHC Cancelled RDW Cancelled Plt Count Cancelled Manual Hct Total Counted Cancelled Seg Neutrophils % Cancelled Seg Neuts % (Manual) Cancelled Band Neutrophils % Cancelled Lymphocytes % Cancelled Lymphocytes % (Manual) Cancelled Atypical Lymphs % Cancelled Monocytes % Cancelled Monocytes % (Manual) Cancelled Eosinophils % Cancelled Eosinophils % (Manual) Cancelled Basophils % Cancelled Basophils % (Manual) Cancelled Metamyelocytes % Cancelled Myelocytes % Cancelled Promyelocytes % Cancelled Immature Leukocytes % Cancelled Absolute Neutrophils Cancelled Abs Neuts (Manual) Cancelled Absolute Lymphocytes Cancelled Abs Lymphs (Manual) Cancelled Absolute Monocytes Cancelled Abs Monocytes (Manual) Cancelled Absolute Eosinophils Cancelled Absolute Eos (Manual) Cancelled Absolute Basophils Cancelled Abs Basophils (Manual) Cancelled Nucleated RBCs Cancelled Differential Comment Cancelled Hypersegmented Neuts Cancelled Smudge Cells Cancelled Toxic Granulation Cancelled Toxic Vacuolation Cancelled Dohle Bodies Cancelled Iliana Rods Cancelled WBC Morphology Comment Cancelled Platelet Estimate Cancelled Clumped Platelets Cancelled Large Platelets Cancelled Giant Platelets Cancelled Platelet Comment Cancelled Polychromasia Cancelled Hypochromasia Cancelled Poikilocytosis Cancelled Basophilic Stippling Cancelled Anisocytosis Cancelled Microcytosis Cancelled Macrocytosis Cancelled Spherocytes Cancelled Pappenheimer Bodies Cancelled Sickle Cells Cancelled Target Cells Cancelled Tear Drop Cells Cancelled Ovalocytes Cancelled Stomatocytes Cancelled Helmet Cells Cancelled [place]-Joy Bodies Cancelled [place] Cells Cancelled Acanthocytes (Spur) Cancelled Rouleaux Cancelled Schistocytes Cancelled RBC Morph Comment Cancelled Sodium 139.0 Potassium 4.0 Chloride 102 Carbon Dioxide 29 Anion Gap 8 BUN 13 Creatinine 0.87 Est GFR ( Amer) > 60 Est GFR (Non-Af Amer) > 60 Glucose 139 H Calcium 8.9 Total Bilirubin 1.3 Direct Bilirubin 0.4 Neonat Total Bilirubin Not Reportable Neonat Direct Bilirubin Not Reportable Neonat Indirect Bili Not Reportable AST 80 H ALT 24 Alkaline Phosphatase 222 H Creatine Kinase 24 L CK-MB (CK-2) < 0.22 Troponin I < 0.012 Total Protein 6.8 Albumin 3.4 L Lipase 119.0 Slides for Path Review Cancelled 11/15/17 01:50 WBC 40.8 H* RBC Hgb Hct MCV MCH MCHC RDW Plt Count 410 Manual Hct 49.0 H Total Counted 100 Seg Neutrophils % Not Reportable Seg Neuts % (Manual) 84 H Band Neutrophils % 4 Lymphocytes % Not Reportable Lymphocytes % (Manual) 5 L Atypical Lymphs % 1 Monocytes % Not Reportable Monocytes % (Manual) 5 Eosinophils % Not Reportable Eosinophils % (Manual) 0 Basophils % Not Reportable Basophils % (Manual) 0 Metamyelocytes % 1 H Myelocytes % Promyelocytes % Immature Leukocytes % Absolute Neutrophils Not Reportable Abs Neuts (Manual) 36.3 H Absolute Lymphocytes Not Reportable Abs Lymphs (Manual) 2.4 Absolute Monocytes Not Reportable Abs Monocytes (Manual) 2.0 H Absolute Eosinophils Not Reportable Absolute Eos (Manual) 0.0 Absolute Basophils Not Reportable Abs Basophils (Manual) 0.0 Nucleated RBCs Differential Comment Hypersegmented Neuts Smudge Cells Toxic Granulation Toxic Vacuolation PRESENT Dohle Bodies Iliana Rods WBC Morphology Comment Platelet Estimate Clumped Platelets Large Platelets PRESENT Giant Platelets PRESENT Platelet Comment ADEQUATE Polychromasia 1+ Hypochromasia 2+ Poikilocytosis 1+ Basophilic Stippling Anisocytosis 3+ Microcytosis 3+ Macrocytosis Spherocytes Pappenheimer Bodies Sickle Cells Target Cells Tear Drop Cells SLIGHT Ovalocytes 1+ Stomatocytes Helmet Cells [place]-Joy Bodies [place] Cells Acanthocytes (Spur) Rouleaux Schistocytes SLIGHT RBC Morph Comment Sodium Potassium Chloride Carbon Dioxide Anion Gap BUN Creatinine Est GFR ( Amer) Est GFR (Non-Af Amer) Glucose Calcium Total Bilirubin Direct Bilirubin Neonat Total Bilirubin Neonat Direct Bilirubin Neonat Indirect Bili AST ALT Alkaline Phosphatase Creatine Kinase CK-MB (CK-2) Troponin I Total Protein Albumin Lipase Slides for Path Review Chest X-Ray 11/14/17 23:21 IMPRESSION: 1. Streaky left basilar opacities may be related to low lung volumes and atelectasis however developing pneumonia could produce a similar appearance. Continued radiographic follow-up recommended. 82-year-old female presents with complaint of 1 day of diarrhea. She states that she has had 6 episodes of mucousy stool today. Patient denies any fever, abdominal pain. She was seen 1 day prior to this visit for nausea which she states has now resolved. Patient does have a complex history with recent hospital admissions with antibiotics. There is a high likelihood that patient has C. difficile. We did order stool cultures but patient did not have another bowel movement during her 4 hour ED course. CBC does show a leukocytosis but this seems to be the patient's baseline and is improved from previous. On reevaluation patient is alert, awake and comfortable. She is drinking water and eating crackers and remains pain-free. He does have an upcoming appointment with her primary care physician in 2 days. I have started the patient on Flagyl due to the high likelihood that this could be C. difficile. - Vital Signs Vital signs: Temp Pulse Resp BP Pulse Ox 98.2 F 87 17 123/57 L 92 11/15/17 04:17 11/14/17 21:00 11/15/17 03:44 11/15/17 03:44 11/15/17 03:44 - Laboratory Result Diagrams: 11/15/17 01:50 11/15/17 00:25 Laboratory results interpreted by me: 11/15/17 11/15/17 00:25 01:50 WBC 40.8 H* Manual Hct 49.0 H Seg Neuts % (Manual) 84 H Lymphocytes % (Manual) 5 L Metamyelocytes % 1 H Abs Neuts (Manual) 36.3 H Abs Monocytes (Manual) 2.0 H Glucose 139 H AST 80 H Alkaline Phosphatase 222 H Creatine Kinase 24 L Albumin 3.4 L Discharge - Discharge Clinical Impression: Diarrhea Qualifiers: Diarrhea type: presumed infectious Qualified Code(s): R19.7 - Diarrhea, unspecified Condition: Good Disposition: HOME, SELF-CARE Instructions: C. (Clostridium) Difficile Infection ([facility]), Diarrhea, Nonspecific ([facility]) Prescriptions: Metronidazole [Flagyl 500 mg Tablet] 500 mg PO Q8H 10 Days #30 tablet Referrals: SOFI GUERRIER MD [Primary Care Provider] - 11/17/17
--- NOTE | 2017-11-14 23:59 | EKG REPORT ---
SEVERITY:- ABNORMAL ECG - SINUS RHYTHM LEFT VENTRICULAR HYPERTROPHY ANTERIOR Q WAVES, POSSIBLY DUE TO LVH VS ASMI OLD BORDERLINE PROLONGED QT INTERVAL : Confirmed by: Bud Medina 14-Nov-2017 23:58:55
--- NOTE | 2017-11-15 00:53 | RADIOLOGY REPORT (SQ) ---
EXAM DESCRIPTION: CHEST PA/LAT CLINICAL HISTORY: chest pain COMPARISON: 11/05/2017 FINDINGS: Frontal and lateral views of the chest. Tortuosity of the thoracic aorta. Heart is not enlarged. Streaky left basilar opacity. Low lung volumes. No pneumothorax or pleural effusion. Leads overlie the chest. Degenerative spondylosis of the thoracic spine. No definite acute osseous abnormalities identified Upper abdominal soft tissues are unremarkable. IMPRESSION: 1. Streaky left basilar opacities may be related to low lung volumes and atelectasis however developing pneumonia could produce a similar appearance. Continued radiographic follow-up recommended.
[2017-11-15 01:09] LABS: BLOOD UREA NITROGEN 13 mg/dL (7-20); CALCIUM 8.9 mg/dL (8.4-10.2); GLUCOSE 139 mg/dL (75-110)
[2017-11-15 01:10] LABS: ALANINE AMINOTRANSFERASE 24 U/L (9-52); ALBUMIN 3.4 g/dL (3.5-5.0); ALKALINE PHOSPHATASE 222 U/L (38-126); ANION GAP 8 (5-19); ASPARTATE AMINO TRANSFERASE 80 U/L (14-36); BILIRUBIN,DIRECT 0.4 mg/dL (0.0-0.4); BILIRUBIN,TOTAL 1.3 mg/dL (0.2-1.3); CARBON DIOXIDE 29 mmol/L (22-30); CHLORIDE 102 mmol/L (98-107); CREATINE KINASE 24 U/L (30-135); TOTAL PROTEIN 6.8 g/dL (6.3-8.2)
[2017-11-15 01:22] LABS: CREATINE KINASE MB < 0.22 ng/mL (<4.55); TROPONIN I < 0.012 ng/mL
[2017-11-15 02:07] LABS: PLATELET COUNT 410 10^3/uL (150-450)
[2017-11-15 02:24] LABS: ABSOLUTE LYMPHOCYTES# (MANUAL) 2.4 10^3/uL (0.5-4.7); ABSOLUTE NEUTROPHILS# (MANUAL) 36.3 10^3/uL (1.7-8.2); BAND NEUTROPHILS % (MANUAL) 4 % (3-5); BASOPHILS % (MANUAL) 0 % (0-2); EOSINOPHILS % (MANUAL) 0 % (0-6); LYMPHOCYTES % (MANUAL) 5 % (13-45); METAMYELOCYTES % (MANUAL) 1 % (0); MONOCYTES % (MANUAL) 5 % (3-13); SEGMENTED NEUTROPHILS % (MAN) 84 % (42-78); TOTAL CELLS COUNTED 100
[2017-11-15 02:27] LABS: HYPOCHROMASIA 2+; POLYCHROMASIA 1+; TOXIC VACUOLATION PRESENT
[2017-11-15 02:28] LABS: ANISOCYTOSIS 3+; OVALOCYTES 1+; PLATELET GIANT PRESENT; PLATELET LARGE PRESENT; POIKILOCYTOSIS 1+; SCHISTOCYTES SLIGHT; TEAR DROP CELLS SLIGHT
[2017-11-15 02:31] LABS: WHITE BLOOD COUNT 40.8 10^3/uL (4.0-10.5)
[2017-11-15 02:33] LABS: PLATELET COMMENT ADEQUATE
[2017-11-15] MEDS ORDERED: METRONIDAZOLE 500 MG TABLET PO ONE (03:22)
[2017-11-15 03:45] VITALS: BP 123/57
== END 2017-11-15 04:17 | disposition home or self-care (01) ==
LOC: ER 20:46
DX: R19.7 Diarrhea, unspecified (principal); I10 Essential (primary) hypertension; E11.9 Type 2 diabetes mellitus without complications; I25.10 Atherosclerotic heart disease of native coronary artery without angina pectoris
CPT/HCPCS: 93005; 99284; 96360; 36415; 82553; 82550; 83690; 85025; 80053; 84484; 71046; 93010; A9270; J7120

== ENCOUNTER 2017-12-28 19:53 | Inpatient (IN) | payer MEDICARE, OTHER ==
[2017-12-28] MEDS ORDERED: NORMAL SALINE 500 ML IV ONE ×2 (20:15→20:57)
--- NOTE | 2017-12-28 20:26 | ER Document Report ---
ED Fall - General Chief Complaint: Fall Stated Complaint: FALL Time Seen by Provider: 12/28/17 20:14 Notes: The patient is an 82-year-old female who presents after she tripped while standing up out of her chair and landed on her right shoulder and hit the back of her head. She takes Plavix every day. She was just discharged yesterday from rehab. She has 1 more day of Levaquin for her UTI. She denies chest pain , LOC, neck pain, shortness of breath, fevers, abdominal pain, rash, open wounds , numbness, tingling or difficulty walking. TRAVEL OUTSIDE OF THE [place] IN LAST 30 DAYS: No - Related data Allergies/Adverse Reactions: morphine Allergy (Verified 11/13/17 18:56) Past Medical History - General Information source: Patient - Social History Smoking Status: Unknown if Ever Smoked Family History: CAD, COPD, DM, Hyperlipidemia, Hypertension, Malignancy - Father with lung cancer, Other Patient has suicidal ideation: No Patient has homicidal ideation: No - Past Medical History Cardiac Medical History: Reports: Hx Congestive Heart Failure - Diastolic, Hx Heart Attack, Hx Hypercholesterolemia, Hx Hypertension, Hx Pulmonary Embolism - Distant history Pulmonary Medical History: Denies: Hx Asthma, Hx COPD, Hx Sleep Apnea Neurological Medical History: Denies: Hx Seizures Endocrine Medical History: Reports: Hx Diabetes Mellitus Type 1, Hx Diabetes Mellitus Type 2. Denies: Hx Hyperthyroidism, Hx Hypothyroidism Renal/ Medical History: Denies: Hx End Stage Renal Disease, Hx Peritoneal Dialysis Malignancy Medical History: Reports: Hx Skin Cancer - Excised from her nose. GI Medical History: Reports: Hx Gastroesophageal Reflux Disease. Denies: Hx Cirrhosis, Hx Hepatitis Musculoskeltal Medical History: Reports Hx Arthritis, Reports Hx Musculoskeletal Deformity Skin Medical History: Denies Hx Eczema, Denies Hx Psoriasis Psychiatric Medical History: Reports: Hx Anxiety, Hx Depression Infectious Medical History: Reports: Hx MRSA - Quite distant history. Denies: Hx C-Diff, Hx Hepatitis Past Surgical History: Reports: Hx Abdominal Surgery, Hx Appendectomy, Hx Cholecystectomy, Hx Hysterectomy, Hx Tonsillectomy, Other - Cardiac loop recorder, bilateral cataract surgery - Immunizations Hx Diphtheria, Pertussis, Tetanus Vaccination: No Hx Pneumococcal Vaccination: 04/29/13 Review of Systems - Review of Systems Notes: REVIEW OF SYSTEMS: CONSTITUTIONAL: -fevers, -chills EENT: -eye pain, -difficulty swallowing, -nasal congestion CARDIOVASCULAR: -chest pain, -syncope. RESPIRATORY: -cough, -SOB GASTROINTESTINAL: -abdominal pain, -nausea, -vomiting, -diarrhea GENITOURINARY: -dysuria, -hematuria MUSCULOSKELETAL: +right shoulder pain, -back pain, -neck pain SKIN: -rash or skin lesions. HEMATOLOGIC: -easy bruising or bleeding. LYMPHATIC: -swollen, enlarged glands. NEUROLOGICAL: -altered mental status or loss of consciousness, +headache, - neurologic symptoms PSYCHIATRIC: -anxiety, -depression. ALL OTHER SYSTEMS REVIEWED AND NEGATIVE. Physical Exam - Vital signs Vitals: Temp Pulse Resp BP Pulse Ox 98.1 F 101 H 20 83/56 L 96 12/28/17 20:05 12/28/17 20:05 12/28/17 20:05 12/28/17 20:05 12/28/17 20:05 - Notes Notes: PHYSICAL EXAMINATION: GENERAL: Well-appearing, well-nourished and in no acute distress. HEAD: Atraumatic, normocephalic. EYES: Pupils equal round and reactive to light, extraocular movements intact, sclera anicteric, conjunctiva are normal. ENT: nares patent, oropharynx clear without exudates. Moist mucous membranes. NECK: Normal range of motion, supple without lymphadenopathy LUNGS: Breath sounds clear to auscultation bilaterally and equal. No wheezes rales or rhonchi. HEART: Regular rate and rhythm without murmurs ABDOMEN: Soft, nontender, normoactive bowel sounds. No guarding, no rebound. No masses appreciated. EXTREMITIES: Tenderness over right anterior shoulder. Normal range of motion, no pitting or edema. No cyanosis. NEUROLOGICAL: Cranial nerves grossly intact. Normal speech, normal gait. Normal sensory and motor exams. PSYCH: Normal mood, normal affect. SKIN: Warm, Dry, normal turgor, no rashes or lesions noted. Course - Re-evaluation Re-evalutation: Patient initially arrives hypotensive and mildly tachycardic. This improved with IV fluids. Blood work is unremarkable, other than her known chronic leukocytosis. She also is in IMANI with doubling of her creatinine from 6 weeks ago. After fluids, she was attempting to stand and she became very lightheaded. She has positive orthostatic vital signs. While laying, her systolic blood pressure is 150s and then she will get down to the 90s when standing. Her urinalysis shows that she still has a urinary tract infection and she is having dysuria. Patient is finishing a course of Levaquin, but looking through prior urine culture results, she has grown out Levaquin resistant E. coli. Will switch her to Rocephin. She requires admission due to the symptomatic orthostatic hypotension and IMANI. She was just discharged from the rehab facility yesterday. 12/28/17 23:[address] Chase (Hospitalist) and will admit patient as inpatient to telemetry. - Vital Signs Vital signs: Temp Pulse Resp BP Pulse Ox 98.1 F 93 20 149/79 H 96 12/28/17 20:05 12/28/17 21:59 12/28/17 20:05 12/28/17 21:59 12/28/17 20:05 - Laboratory Result Diagrams: 12/28/17 20:10 12/28/17 20:10 Laboratory results interpreted by me: 12/28/17 12/28/17 12/28/17 20:10 20:10 23:04 WBC 40.2 H* RBC 7.36 H MCV 60 L MCH 17.7 L MCHC 29.4 L RDW 23.1 H Seg Neuts % (Manual) 83 H Lymphocytes % (Manual) 5 L Abs Neuts (Manual) 35.0 H Abs Monocytes (Manual) 2.8 H Potassium 5.3 H BUN 23 H Creatinine 1.64 H Est GFR ( Amer) 36 L Est GFR (Non-Af Amer) 30 L Glucose 148 H Alkaline Phosphatase 203 H Urine Protein 30 H Ur Leukocyte Esterase MODERATE H - Diagnostic Test Radiology reviewed: Image reviewed, Reports reviewed - EKG Interpretation by Me EKG shows normal: Sinus rhythm, Needles, Intervals, QRS Complexes, ST-T Waves Rate: Tachycardia Discharge - Discharge Clinical Impression: Orthostatic hypotension, IMANI (acute kidney injury) Contusion of head Qualifiers: Encounter type: initial encounter Contusion of head detail: scalp Qualified Code(s): S00.03XA - Contusion of scalp, initial encounter Shoulder contusion Qualifiers: Encounter type: initial encounter Laterality: right Qualified Code(s): S40.011A - Contusion of right shoulder, initial encounter Fall Qualifiers: Encounter type: initial encounter Qualified Code(s): W19.XXXA - Unspecified fall, initial encounter Contusion of hip, right Qualifiers: Encounter type: initial encounter Qualified Code(s): S70.01XA - Contusion of right hip, initial encounter Condition: Stable Disposition: ADMITTED INPATIENT Admitting Provider: Hospitalist [facility] Admitted: Telemetry Referrals: JAVED GUERRIER MD [Primary Care Provider] - Follow up as needed
[2017-12-28 20:42] LABS: HEMATOCRIT 44.2 % (36.0-47.0); MEAN CORPUSCULAR HEMOGLOBIN 17.7 pg (27.0-33.4); MEAN CORPUSCULAR HGB CONC 29.4 g/dL (32.0-36.0); MEAN CORPUSCULAR VOLUME 60 fl (80-97); PLATELET COUNT 340 10^3/uL (150-450); RED BLOOD COUNT 7.36 10^6/uL (3.72-5.28); RED CELL DISTRIBUTION WIDTH 23.1 % (11.5-14.0)
[2017-12-28 20:51] LABS: ALANINE AMINOTRANSFERASE 26 U/L (9-52); ALBUMIN 4.1 g/dL (3.5-5.0); ALKALINE PHOSPHATASE 203 U/L (38-126); ANION GAP 16 (5-19); ASPARTATE AMINO TRANSFERASE 30 U/L (14-36); BILIRUBIN,DIRECT 0.4 mg/dL (0.0-0.4); BILIRUBIN,TOTAL 1.2 mg/dL (0.2-1.3); BLOOD UREA NITROGEN 23 mg/dL (7-20); CALCIUM 9.6 mg/dL (8.4-10.2); CARBON DIOXIDE 27 mmol/L (22-30); CHLORIDE 102 mmol/L (98-107); CREATINE KINASE 32 U/L (30-135); GLUCOSE 148 mg/dL (75-110); POTASSIUM 5.3 mmol/L (3.6-5.0); SODIUM 144.8 mmol/L (137-145); TOTAL PROTEIN 8.1 g/dL (6.3-8.2)
[2017-12-28 21:06] LABS: ABSOLUTE MONOCYTES # (MANUAL) 2.8 10^3/uL (0.1-1.4); BAND NEUTROPHILS % (MANUAL) 4 % (3-5); BASOPHILS % (MANUAL) 0 % (0-2); EOSINOPHILS % (MANUAL) 1 % (0-6); LYMPHOCYTES % (MANUAL) 5 % (13-45); MONOCYTES % (MANUAL) 7 % (3-13); SEGMENTED NEUTROPHILS % (MAN) 83 % (42-78); TOTAL CELLS COUNTED 100
[2017-12-28 21:08] LABS: ANISOCYTOSIS 2+; HYPOCHROMASIA 2+; OVALOCYTES SLIGHT; PLATELET COMMENT ADEQUATE; POIKILOCYTOSIS 1+; TOXIC GRANULATION SLIGHT
--- NOTE | 2017-12-28 21:17 | RADIOLOGY REPORT (SQ) ---
EXAM DESCRIPTION: CHEST SINGLE VIEW COMPLETED DATE/TIME: 12/28/2017 8:51 pm REASON FOR STUDY: sepsis COMPARISON: 11/15/2017 EXAM PARAMETERS: NUMBER OF VIEWS: One view. TECHNIQUE: Single frontal radiographic view of the chest acquired. RADIATION DOSE: NA LIMITATIONS: None. FINDINGS: LUNGS AND PLEURA: No opacities, masses or pneumothorax. No pleural effusion. Left basilar scarring. MEDIASTINUM AND HILAR STRUCTURES: No masses. Contour normal. HEART AND VASCULAR STRUCTURES: Heart normal in size. Normal vasculature. BONES: No acute findings. HARDWARE: None in the chest. OTHER: No other significant finding. IMPRESSION: NO ACUTE RADIOGRAPHIC FINDING IN THE CHEST. TECHNICAL DOCUMENTATION: JOB ID: [id number] [employer]- All Rights Reserved Reading location - IP/workstation name: [email or web address]
--- NOTE | 2017-12-28 21:18 | RADIOLOGY REPORT (SQ) ---
EXAM DESCRIPTION: SHOULDER RIGHT 2 OR MORE VIEWS COMPLETED DATE/TIME: 12/28/2017 8:51 pm REASON FOR STUDY: fall, right shoulder pain COMPARISON: 06/11/2016 NUMBER OF VIEWS: Three views. TECHNIQUE: Internal rotation, external rotation, and Y view images acquired of the right shoulder. LIMITATIONS: None. FINDINGS: MINERALIZATION: Normal. BONES: No acute fracture or dislocation. No worrisome bone lesions. JOINTS: No dislocation. VISUALIZED LUNGS AND RIBS: No pneumothorax. No rib fracture. SOFT TISSUES: No radiopaque foreign body. OTHER: No other significant finding. IMPRESSION: NEGATIVE STUDY OF THE RIGHT SHOULDER. NO RADIOGRAPHIC EVIDENCE OF ACUTE INJURY. TECHNICAL DOCUMENTATION: JOB ID: [id number] [employer]- All Rights Reserved Reading location - IP/workstation name: [email or web address]
--- NOTE | 2017-12-28 21:21 | RADIOLOGY REPORT (SQ) ---
EXAM DESCRIPTION: CT HEAD WITHOUT COMPLETED DATE/TIME: 12/28/2017 8:57 pm REASON FOR STUDY: fall, head injury COMPARISON: 08/27/2017 TECHNIQUE: Axial images acquired through the brain without intravenous contrast. Images reviewed wi th bone, brain and subdural windows. Additional sagittal and coronal reconstructions were generated. Images stored on PACS. All CT scanners at this facility use dose modulation, iterative reconstruction, and/or weight based d osing when appropriate to reduce radiation dose to as low as reasonably achievable (ALARA). [facility]: Dose Right [facility]: CareDose [facility]: Dose Right [facility]: Teradose 4D [facility]: Smart LIN TV RADIATION DOSE: CT Rad equipment meets quality standard of care and radiation dose reduction techniq ues were employed. CTDIvol: 53.2 mGy. DLP: 964 mGy-cm. mGy. LIMITATIONS: None. FINDINGS: VENTRICLES: Normal size and contour. CEREBRUM: No masses. No acute hemorrhage. No midline shift. No acute infarction. There are areas of decreased attenuation suggesting prior small infarcts, including the right posterior parietal area . Areas of low density in the white matter most likely chronic small vessel ischemic changes. CEREBELLUM: No masses. No hemorrhage. No alteration of density. No evidence for acute infarction. EXTRAAXIAL SPACES: No fluid collections. No masses. ORBITS AND GLOBE: No intra- or extraconal masses. Normal contour of globe without masses. CALVARIUM: No fracture. PARANASAL SINUSES: No fluid or mucosal thickening. SOFT TISSUES: No mass or hematoma. OTHER: No other significant finding. IMPRESSION: MILD CHRONIC MICROVASCULAR ISCHEMIA. NO ACUTE IMAGING FINDINGS IN THE BRAIN. EVIDENCE OF ACUTE STROKE: NO. COMMENT: Quality ID # [id number]: Final reports with documentation of one or more dose reduction techniques (e.g., Automated exposure control, adjustment of the mA and/or kV according to patient size, use of iterative reconstruction technique) TECHNICAL DOCUMENTATION: JOB ID: [id number] [employer]- All Rights Reserved Reading location - IP/workstation name: [email or web address]
[2017-12-28 21:23] LABS: WHITE BLOOD COUNT 40.2 10^3/uL (4.0-10.5)
[2017-12-28 23:24] LABS: APPEARANCE,URINE CLOUDY; BILIRUBIN,URINE NEGATIVE (NEGATIVE); COLOR,URINE YELLOW; GLUCOSE, URINE NEGATIVE (NEGATIVE); KETONES,URINE NEGATIVE (NEGATIVE); LEUKOCYTE ESTERASE,URINE MODERATE (NEGATIVE); NITRITE,URINE NEGATIVE (NEGATIVE); PROTEIN,URINE 30 mg/dL (NEGATIVE); URINE SPECIFIC GRAVITY 1.015; UROBILINOGEN,URINE NEGATIVE mg/dL (<2.0)
[2017-12-28] MEDS ORDERED: CEFTRIAXONE INJ 1000 MG VIAL IV ONE (23:28)
[2017-12-28] MEDS ORDERED: ONDANSETRON HCL INJ/PF 4 MG/2 ML SDV IV PRN (23:48)
[2017-12-28] MEDS ORDERED: OXYCODONE-ACETAMINOPHEN 5-325 MG TABLET PO PRN (23:48)
--- NOTE | 2017-12-28 23:50 | EKG REPORT ---
SEVERITY:- BORDERLINE ECG - SINUS RHYTHM BORDERLINE LEFT AXIS DEVIATION BORDERLINE PROLONGED QT INTERVAL : Confirmed by: Bud Medina 28-Dec-2017 23:49:49
[2017-12-28] MEDS ORDERED: GLUCAGON,HUMAN RECOMB 1 MG INJ IM PRN (23:56)
[2017-12-28] MEDS ORDERED: DEXTROSE 40% GEL 15 GM TUBE PO PRN ×2 (23:56)
[2017-12-28] MEDS ORDERED: DEXTROSE 50%-WATER 25 GM/50 ML DISP.SYRIN IV PRN ×2 (23:56)
--- NOTE | 2017-12-29 00:10 | RADIOLOGY REPORT (SQ) ---
EXAM DESCRIPTION: HIP RIGHT AP/LATERAL COMPLETED DATE/TIME: 12/28/2017 11:20 pm REASON FOR STUDY: right hip pain and swelling COMPARISON: 11/14/2017 NUMBER OF VIEWS: Two views. TECHNIQUE: AP pelvis and additional frog-leg view of the right hip. LIMITATIONS: None. FINDINGS: MINERALIZATION: Osteopenia. RIGHT HIP: No fracture or dislocation. No worrisome bone lesions. LEFT HIP: No fracture or dislocation. No worrisome bone lesions. PUBIS AND ISCHIUM: No fracture. PELVIS: No fracture. Similar degenerative changes. SACRUM: No fracture or dislocation. No worrisome bone lesions. LOWER LUMBAR SPINE: Similar degenerative changes. SOFT TISSUES: No findings. OTHER: No other significant finding. IMPRESSION: NO RADIOGRAPHIC EVIDENCE OF ACUTE INJURY. TECHNICAL DOCUMENTATION: JOB ID: [id number] [place]-72 2010 [employer]- All Rights Reserved Reading location - IP/workstation name: [email or web address]
--- NOTE | 2017-12-29 00:19 | PDOC H&P ---
History of Present Illness Admission Date/PCP: 12/28/17 23:43 JAVED GUERRIER MD History of Present Illness: ORACIO PEDROZA is a very pleasant 82 year old female patient whose past medical history of HTN, HLD, CAD, CHF, history of CVA and [place] and type II DM , who presented to us after she involved in mechanical fall. Patient reports while she is trying sit down on rocking chair, she lost her balance and landed on her right side. She denies prodrome of dizziness, syncope, blurring of vision, palpitation or any seizure activity. Of note patient discharged from rehab yesterday. Patient is also being treated with Levaquin for urinary tract infection but the organism isolated from her urine culture is resistant to Levaquin. Her urine analysis shows WBC of 75 and leukocyte esterase. X-ray does not show fracture but she has large hematoma over her right hip. Her CT is negative for acute intracranial process. Past Medical History Cardiac Medical History: Reports: Congestive Heart Failure - Diastolic, Myocardial Infarction, Hyperlipidema, Hypertension, Pulmonary Embolism - Distant history Pulmonary Medical History: Denies: Asthma, Chronic Obstructive Pulmonary Disease (COPD), Sleep Apnea Neurological Medical History: Denies: Seizures Endocrine Medical History: Reports: Diabetes Mellitus Type 1, Diabetes Mellitus Type 2 Denies: Hyperthyroidism, Hypothyroidism Renal/ Medical History: Denies: End Stage Renal Disease Malignancy Medical History: Reports: Skin Cancer - Excised from her nose. 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 Denies: Clostridium Difficile Past Surgical History Past Surgical History: Reports: Appendectomy, Cholecystectomy, Hysterectomy, Tonsillectomy, Other - Cardiac loop recorder, bilateral cataract surgery Social History Smoking Status: Never Smoker Frequency of Alcohol Use: None Hx Recreational Drug Use: No Drugs: None Hx Prescription Drug Abuse: No Family History Family History: CAD, COPD, DM, Hyperlipidemia, Hypertension, Malignancy - Father with lung cancer, Other Parental Family History Reviewed: Yes Children Family History Reviewed: Yes Sibling(s) Family History Reviewed.: Yes Medication/Allergy Home Medications: Buspirone HCl [Buspar 15 mg Tablet] 15 mg PO BID 08/24/17 Docusate Sodium [Colace 100 mg Capsule] 100 mg PO BID 08/24/17 Gabapentin [Neurontin 300 mg Capsule] 300 mg PO Q12 08/24/17 Hum Insulin NPH/Reg Insulin Hm [Novolin 70-30 100 Unit/ml Vial] 65 units SQ BID 08/24/17 Isosorbide Dinitrate [Isordil Titradose 10 mg Tablet] 30 mg PO DAILY 08/24/17 Metoprolol Tartrate [Lopressor 100 mg Tablet] 100 mg PO Q12 08/24/17 Pantoprazole Sodium [Protonix] 40 mg PO DAILY 08/24/17 Rosuvastatin Calcium [Crestor] 40 mg PO QAM 08/24/17 Sertraline HCl [Zoloft 50 mg Tablet] 50 mg PO DAILY 08/24/17 Sitagliptin Phosphate [Januvia] 100 mg PO DAILY 08/24/17 Trazodone HCl [Desyrel 50 mg Tablet] 50 mg PO HSP PRN 08/24/17 Aspirin [Ecotrin 81 mg EC Tablet] 81 mg PO DAILY tabec 08/29/17 Cefpodoxime Proxetil [Vantin 200 mg Tablet] 1 tab PO Q12 5 Days #10 tab Clopidogrel Bisulfate [Plavix 75 mg Tablet] 75 mg PO DAILY #30 tablet 11/06/17 Losartan Potassium [Cozaar 50 mg Tablet] 100 mg PO DAILY #30 tablet 11/06/17 Magnesium Hydroxide [Milk of Magnesia 30 ml Udcup] 30 ml PO HSP PRN #0 udc 11/06 Nitroglycerin [Nitrostat 0.4 mg (1/150 Gr) Tabs 25/Bottle] 1 tab SL Q5MP PRN #1 bottle 11/06/17 Ranolazine [Ranexa 500 mg Tab.sr] 500 mg PO Q12 #60 tab.sr.12h 11/06/17 Promethazine HCl [Phenergan 25 mg Tablet] 1 - 2 tab PO Q6H PRN #15 tablet Docusate Sodium [Colace 100 mg Capsule] 100 mg PO DAILY #30 capsule 11/09/17 Ondansetron [Zofran Odt] 4 mg PO Q6 PRN #30 tab.rapdis 11/09/17 Promethazine HCl [Phenergan 25 mg Tablet] 25 mg PO Q6H PRN #10 tablet 11/14/17 Metronidazole [Flagyl 500 mg Tablet] 500 mg PO Q8H 10 Days #30 tablet 11/15/17 Allergies/Adverse Reactions: morphine Allergy (Verified 11/13/17 18:56) Review of Systems Constitutional: PRESENT: as per HPI Ears: PRESENT: as per HPI Cardiovascular: PRESENT: as per HPI Respiratory: PRESENT: as per HPI Integumentary: PRESENT: lesions - Bruises Neurological: ABSENT: abnormal gait, abnormal speech, confusion, dizziness, focal weakness, syncope Physical Exam Vital Signs: Temp Pulse Resp BP Pulse Ox 98.1 F 93 20 149/79 H 96 12/28/17 20:05 12/28/17 21:59 12/28/17 20:05 12/28/17 21:59 12/28/17 20:05 General appearance: PRESENT: no acute distress Head exam: PRESENT: normocephalic Respiratory exam: PRESENT: clear to auscultation carmen. ABSENT: rales, rhonchi, wheezes Cardiovascular exam: PRESENT: RRR. ABSENT: diastolic murmur, rubs, systolic murmur Extremities exam: PRESENT: other - Large hematoma over her right hip Results Impressions: Head CT 12/28/17 20:14 IMPRESSION: MILD CHRONIC MICROVASCULAR ISCHEMIA. NO ACUTE IMAGING FINDINGS IN THE BRAIN. EVIDENCE OF ACUTE STROKE: NO. Chest X-Ray 12/28/17 20:16 IMPRESSION: NO ACUTE RADIOGRAPHIC FINDING IN THE CHEST. Shoulder X-Ray 12/28/17 20:30 IMPRESSION: NEGATIVE STUDY OF THE RIGHT SHOULDER. NO RADIOGRAPHIC EVIDENCE OF ACUTE INJURY. Assessment & Plan - Diagnosis (1) Status post fall Is this a current diagnosis for this admission?: Yes Plan: Head CT and pelvic x-rays are negative but patient has large hematoma over her right hip so I will request this pelvic CT. Orthopedic surgeon consulted by ER attending. (2) Acute kidney injury Is this a current diagnosis for this admission?: Yes Plan: I will cautiously hydrate her with normal saline at a rate of 50 mL/h since patient has underlying congestive heart failure. (4) Diabetes mellitus Qualifiers: Diabetes mellitus type: type 2 Is this a current diagnosis for this admission?: Yes Plan: We will continue her home insulin and will put her also on sliding scale. (5) Coronary artery disease Qualifiers: Coronary Disease-Associated Artery/Lesion type: [place] artery Is this a current diagnosis for this admission?: Yes Plan: Stable and will continue her home medication. - Inpatient Certification Medical Necessity: Need for IV Antibiotics
[2017-12-29] MEDS: NORMAL SALINE 1000 ML 1,000 ML IV PRN (03:54)
[2017-12-29] MEDS: LANSOPRAZOLE 30 MG TAB.RAP.DR PO SCH (05:32)
[2017-12-29 06:40] LABS: ANION GAP 13 (5-19); BLOOD UREA NITROGEN 23 mg/dL (7-20); CALCIUM 8.9 mg/dL (8.4-10.2); CARBON DIOXIDE 26 mmol/L (22-30); CHLORIDE 105 mmol/L (98-107); GLUCOSE 167 mg/dL (75-110); SODIUM 144.2 mmol/L (137-145)
[2017-12-29 07:02] LABS: HEMATOCRIT 38.2 % (36.0-47.0); HEMOGLOBIN 11.5 g/dL (12.0-15.5); MEAN CORPUSCULAR HEMOGLOBIN 17.8 pg (27.0-33.4); MEAN CORPUSCULAR HGB CONC 30.2 g/dL (32.0-36.0); MEAN CORPUSCULAR VOLUME 59 fl (80-97); PLATELET COUNT 300 10^3/uL (150-450); RED BLOOD COUNT 6.48 10^6/uL (3.72-5.28); RED CELL DISTRIBUTION WIDTH 22.7 % (11.5-14.0)
[2017-12-29 07:07] LABS: ABSOLUTE LYMPHOCYTES# (MANUAL) 2.3 10^3/uL (0.5-4.7); ABSOLUTE NEUTROPHILS# (MANUAL) 30.7 10^3/uL (1.7-8.2); BASOPHILS % (MANUAL) 1 % (0-2); EOSINOPHILS % (MANUAL) 0 % (0-6); LYMPHOCYTES % (MANUAL) 6 % (13-45); MONOCYTES % (MANUAL) 0 % (3-13); SEGMENTED NEUTROPHILS % (MAN) 92 % (42-78); TOTAL CELLS COUNTED 100
[2017-12-29 07:12] LABS: OVALOCYTES 1+; TOXIC VACUOLATION PRESENT
[2017-12-29 07:13] LABS: ANISOCYTOSIS 3+; HYPOCHROMASIA 1+; PLATELET COMMENT ADEQUATE; PLATELET LARGE PRESENT; POIKILOCYTOSIS 2+; POLYCHROMASIA SLIGHT; POTASSIUM 4.1 mmol/L (3.6-5.0); SCHISTOCYTES SLIGHT; TEAR DROP CELLS SLIGHT
[2017-12-29 08:24] LABS: WHITE BLOOD COUNT 33.4 10^3/uL (4.0-10.5)
[2017-12-29] MEDS ORDERED: ACETAMINOPHEN 325 MG TABLET PO PRN (10:10)
--- NOTE | 2017-12-29 10:38 | RADIOLOGY REPORT (SQ) ---
EXAM DESCRIPTION: CT PELVIS WITHOUT COMPLETED DATE/TIME: 12/29/2017 10:18 am REASON FOR STUDY: Status post fall and hematoma COMPARISON: None. TECHNIQUE: CT scan of the pelvis performed without intravenous or oral contrast. Images reviewed wi th soft tissue and bone windows. Reconstructed coronal and sagittal MPR images reviewed. All images stored on PACS. All CT scanners at this facility use dose modulation, iterative reconstruction, and/or weight based d osing when appropriate to reduce radiation dose to as low as reasonably achievable (ALARA). [facility]: Dose Right [facility]: CareDose [facility]: Dose Right [facility]: Teradose 4D [facility]: [employer] RADIATION DOSE: CT Rad equipment meets quality standard of care and radiation dose reduction techniq ues were employed. CTDIvol: 25.5 mGy. DLP: 875 mGy-cm. mGy. LIMITATIONS: None. FINDINGS: PELVIC BONES: No acute fracture. No lytic or blastic lesions. There is advanced bilatera l sacroiliac joint arthritis with vacuum phenomenon, bony spurring, joint space narrowing and subcort ical cyst formation. VISUALIZED SPINE: Advanced bilateral lower lumbar facet arthropathy at L3-4, L4-5, and L5-S1. HIPS: No acute fracture or dislocation. No worrisome bone lesions.Hip joint spaces are maintained. No bulky bony spurring. PELVIC SOFT TISSUES: No significant findings. EXTRAPELVIC SOFT TISSUES: A 7 x 5 cm hematoma is present over the right gluteal region near the great er trochanter. Hematoma is in the subcutaneous fat. OTHER: No other significant finding. IMPRESSION: No acute right hip or pelvic fracture. Right gluteal subcutaneous hematoma SI joint arthritis, bilateral lower lumbar facet joint arthropathy. TECHNICAL DOCUMENTATION: JOB ID: [id number] Quality ID # [id number]: Final reports with documentation of one or more dose reduction techniques (e.g., Au tomated exposure control, adjustment of the mA and/or kV according to patient size, use of iterative reconstruction technique) 2010 [employer]- All Rights Reserved Reading location - IP/workstation name: [email or web address]
[2017-12-29] MEDS: DOCUSATE SODIUM 100 MG CAPSULE PO SCH (10:48)
[2017-12-29] MEDS: OXYCODONE HCL IR 5 MG TABLET PO PRN ×2 (10:50→15:37)
[2017-12-29] MEDS: FENTANYL CITRATE INJ/PF 100 MCG/2 ML AMPUL IV PRN ×3 (11:44→19:34)
[2017-12-29] MEDS: INSULIN LISPRO 100 UNIT/ML 3 ML VIAL SUBCUT PRN ×2 (13:46→23:01)
[2017-12-29] MEDS ORDERED: (PENDING PHARMACY ID) (Losartan Potassium [Cozaar] 100 MG) PO SCH (16:30)
[2017-12-29] MEDS ORDERED: (PENDING PHARMACY ID) (Sertraline Hcl [Zoloft] 25 MG) PO SCH (16:30)
--- NOTE | 2017-12-29 16:34 | Progress Note ---
Provider Note Provider Note: Agree with behavioral scientist plan of care for a 82-year-old female who presented to the emergency department following a mechanical fall. No fracture noted on x- ray. Pelvic CT negative for fracture, only demonstrates right gluteal subcutaneous hematoma. Urinalysis demonstrated evidence of UTI. 1. R HIP INJURY: no fracture noted on imaging. Sizable R gluteal hematoma. Hold off on anticoagulation or pharmacological DVT PPX for now. Tylenol, oxycodone, IV fentanyl for pain control. 2. UTI: The patient has a history of ESBL E. coli in her urine. Urine culture and sensitivities are pending. Currently receiving IV Rocephin. 3. IMANI: Creatinine elevated to 1.3. Likely secondary to dehydration and UTI. Gentle IVF hydration given the patient's history of heart failure. 4. CAD: will resume home medications, Ranexa and Isosorbide, with exception of ASA and Plavix 5. DIABETES: Accu-Cheks before meals/at bedtime. Humalog sliding scale insulin
[2017-12-29] MEDS ORDERED: LOSARTAN POTASSIUM 50 MG TABLET PO ONE (18:00)
[2017-12-29] MEDS ORDERED: LANSOPRAZOLE 30 MG TAB.RAP.DR PO ONE (18:00)
[2017-12-29] MEDS ORDERED: SERTRALINE HCL 50 MG TABLET PO ONE (18:00)
[2017-12-29] MEDS: BUSPIRONE HCL 10 MG TABLET PO SCH (19:28)
[2017-12-29] MEDS: GABAPENTIN 300 MG CAPSULE PO SCH (19:30)
[2017-12-29] MEDS: ISOSORBIDE DINITRATE 20 MG TABLET PO SCH (19:31)
[2017-12-29] MEDS: METOPROLOL TARTRATE 50 MG TABLET PO SCH (19:31)
[2017-12-29] MEDS: RANOLAZINE 500 MG TAB.SR.12H PO SCH (21:43)
[2017-12-29] MEDS: CEFTRIAXONE SODIUM 1,000 MG in DEXTROSE 5%-WATER 50 ML IV SCH (21:43)
[2017-12-29] MEDS ORDERED: CEFTRIAXONE 1 GM/D5W RTU 1 GM/50 ML RTUPB IV SCH (22:00)
[2017-12-30] MEDS: NORMAL SALINE 1000 ML 1,000 ML IV PRN (04:57)
[2017-12-30] MEDS: METOPROLOL TARTRATE 50 MG TABLET PO SCH ×2 (05:07→19:10)
[2017-12-30] MEDS: GABAPENTIN 300 MG CAPSULE PO SCH ×2 (05:07→19:10)
[2017-12-30] MEDS: BUSPIRONE HCL 10 MG TABLET PO SCH ×2 (05:08→19:07)
[2017-12-30] MEDS: LANSOPRAZOLE 30 MG TAB.RAP.DR PO SCH (05:09)
[2017-12-30] MEDS ORDERED: LANSOPRAZOLE 30 MG TAB.RAP.DR PO SCH (06:00)
[2017-12-30] MEDS: OXYCODONE HCL IR 5 MG TABLET PO PRN ×4 (07:59→23:56)
[2017-12-30] MEDS: INSULIN LISPRO 100 UNIT/ML 3 ML VIAL SUBCUT PRN ×2 (08:29→23:10)
[2017-12-30] MEDS: LOSARTAN POTASSIUM 50 MG TABLET PO SCH (10:43)
[2017-12-30] MEDS: SERTRALINE HCL 50 MG TABLET PO SCH (10:44)
[2017-12-30] MEDS: RANOLAZINE 500 MG TAB.SR.12H PO SCH ×2 (10:44→23:14)
[2017-12-30] MEDS: DOCUSATE SODIUM 100 MG CAPSULE PO SCH (10:44)
[2017-12-30] MEDS: FENTANYL CITRATE INJ/PF 100 MCG/2 ML AMPUL IV PRN ×4 (10:45→23:57)
--- NOTE | 2017-12-30 18:03 | PDOC PROGRESS REPORT ---
Subjective Progress Note for:: 12/30/17 Subjective:: ORACIO PEDROZA is an 82-year-old female who presented to the emergency department following a mechanical fall. No fractures noted on x-ray. Pelvic CT negative for fracture, only demonstrates right gluteal subcutaneous hematoma. Urinalysis demonstrated evidence of UTI. Of note, the patient was recently discharged from [facility] (October 2017) following prolonged hospital stay for ESBL E. coli UTI. The patient was seen this morning on rounds, she is sitting up in her bedside recliner resting comfortably on room air. The patient states she has mild pain to her right buttocks, and complains of mild dysuria. Reason For Visit: STATUS POST FALL, HEMATOMA, ACUTE KIDNEY INJURY Physical Exam Vital Signs: Temp Pulse Resp BP Pulse Ox 99.5 F 88 18 137/43 H 95 12/30/17 14:57 12/30/17 14:57 12/30/17 14:57 12/30/17 14:57 12/30/17 14:57 Intake & Output 12/29/17 12/30/17 12/31/17 06:59 06:59 06:59 Intake Total 154 2492 1350 Output Total 3 300 Balance 151 2492 1050 Weight 92.1 kg 93.8 kg General appearance: PRESENT: no acute distress, well-developed, well-nourished Head exam: PRESENT: atraumatic, normocephalic Eye exam: PRESENT: conjunctiva pink, EOMI, PERRLA. ABSENT: scleral icterus Ear exam: PRESENT: normal external ear exam Mouth exam: PRESENT: moist, tongue midline Neck exam: ABSENT: carotid bruit, JVD, lymphadenopathy, thyromegaly Respiratory exam: PRESENT: clear to auscultation carmen. ABSENT: rales, rhonchi, wheezes Cardiovascular exam: PRESENT: RRR. ABSENT: diastolic murmur, rubs, systolic murmur Pulses: PRESENT: normal dorsalis pedis pul Vascular exam: PRESENT: normal capillary refill GI/Abdominal exam: PRESENT: normal bowel sounds, soft. ABSENT: distended, guarding, mass, organolmegaly, rebound, tenderness Rectal exam: PRESENT: deferred Extremities exam: PRESENT: full ROM. ABSENT: calf tenderness, clubbing, pedal edema Neurological exam: PRESENT: alert, awake, oriented to person, oriented to place , oriented to time, oriented to situation Psychiatric exam: PRESENT: appropriate affect, normal mood. ABSENT: homicidal ideation, suicidal ideation Skin exam: PRESENT: dry, intact, warm, other - BRUISING TO R BUTTOCS. PALPABLE SUBCUTANEOUS HEMATOMA. ABSENT: cyanosis, rash, skin tears Results Laboratory Results: 12/29/17 05:29 12/29/17 05:29 Impressions: Pelvis CT 12/28/17 00:00 IMPRESSION: No acute right hip or pelvic fracture. Right gluteal subcutaneous hematoma SI joint arthritis, bilateral lower lumbar facet joint arthropathy. Head CT 12/28/17 20:14 IMPRESSION: MILD CHRONIC MICROVASCULAR ISCHEMIA. NO ACUTE IMAGING FINDINGS IN THE BRAIN. EVIDENCE OF ACUTE STROKE: NO. Chest X-Ray 12/28/17 20:16 IMPRESSION: NO ACUTE RADIOGRAPHIC FINDING IN THE CHEST. Shoulder X-Ray 12/28/17 20:30 IMPRESSION: NEGATIVE STUDY OF THE RIGHT SHOULDER. NO RADIOGRAPHIC EVIDENCE OF ACUTE INJURY. Hip/Pelvis X-Ray 12/28/17 23:04 IMPRESSION: NO RADIOGRAPHIC EVIDENCE OF ACUTE INJURY. Status: Imported from PACS Assessment & Plan - Diagnosis (1) Hip injury Qualifiers: Encounter type: initial encounter Laterality: right Qualified Code(s): S79.911A - Unspecified injury of right hip, initial encounter Is this a current diagnosis for this admission?: Yes Plan: Status post mechanical fall. No fracture noted on x-ray. Pelvic CT negative for fracture, only demonstrates right gluteal subcutaneous hematoma. Patient was evaluated by Dr. Kent of orthopedics, he has no special recommendations, simply pain management for R hip pain Hold off on anticoagulation and pharmacological DVT PPX Tylenol, oxycodone, IV fentanyl for pain control (2) CAD (coronary artery disease) Is this a current diagnosis for this admission?: Yes Plan: Patient has a past medical history of coronary artery disease. Resume home medications of Ranexa and isosorbide Plavix and ASA on hold for now (3) IMANI (acute kidney injury) Is this a current diagnosis for this admission?: Yes Plan: Improving. Creatinine elevated to 1.6, now down to 1.3. Likely secondary to dehydration and UTI. Gentle IV hydration given the patient's history of heart failure. Patient making adequate urine output (4) Urinary tract infection Qualifiers: Urinary tract infection type: site unspecified Hematuria presence: without hematuria Qualified Code(s): N39.0 - Urinary tract infection, site not specified Is this a current diagnosis for this admission?: Yes Plan: The patient endorses complaints of dysuria. UA indicative of UTI. Of note, the patient has a recent history of ESBL E. coli in her urine. Urine culture and sensitivities currently pending. Currently receiving IV Rocephin (5) Diabetes Is this a current diagnosis for this admission?: Yes Plan: Accu-Cheks before meals and at bedtime. Humalog insulin sliding scale - Time Time Spent with patient: 15-24 minutes Medications reviewed and adjusted accordingly: Yes Anticipated discharge: Home Within: within 24 hours - Inpatient Certification Based on my medical assessment, after consideration of the patient's comorbidities, presenting symptoms, or acuity I expect that the services needed warrant INPATIENT care.: Yes I certify that my determination is in accordance with my understanding of Medicare's requirements for reasonable and necessary INPATIENT services [42 CFR 412.3e].: Yes Medical Necessity: Risk of Complication if Not Cared For in Hospital - Plan Summary Plan Summary: Ultimately, the plan is to discharge the patient home. Currently waiting urine cultures and sensitivities.
[2017-12-30] MEDS: ISOSORBIDE DINITRATE 20 MG TABLET PO SCH (19:06)
[2017-12-30] MEDS: CEFTRIAXONE SODIUM 1,000 MG in DEXTROSE 5%-WATER 50 ML IV SCH (23:14)
[2017-12-31 06:03] LABS: ANION GAP 14 (5-19); BLOOD UREA NITROGEN 19 mg/dL (7-20); CALCIUM 9.2 mg/dL (8.4-10.2); CARBON DIOXIDE 25 mmol/L (22-30); CHLORIDE 103 mmol/L (98-107); GLUCOSE 263 mg/dL (75-110); POTASSIUM 4.4 mmol/L (3.6-5.0); SODIUM 142.1 mmol/L (137-145)
[2017-12-31] MEDS: OXYCODONE HCL IR 5 MG TABLET PO PRN (06:34)
[2017-12-31] MEDS: BUSPIRONE HCL 10 MG TABLET PO SCH (06:35)
[2017-12-31] MEDS: GABAPENTIN 300 MG CAPSULE PO SCH (06:35)
[2017-12-31] MEDS: NORMAL SALINE 1000 ML 1,000 ML IV PRN (06:36)
[2017-12-31] MEDS: LANSOPRAZOLE 30 MG TAB.RAP.DR PO SCH (06:36)
[2017-12-31] MEDS: METOPROLOL TARTRATE 50 MG TABLET PO SCH (06:36)
[2017-12-31] MEDS: RANOLAZINE 500 MG TAB.SR.12H PO SCH (08:44)
[2017-12-31] MEDS: SERTRALINE HCL 50 MG TABLET PO SCH (08:44)
[2017-12-31] MEDS: DOCUSATE SODIUM 100 MG CAPSULE PO SCH (08:45)
[2017-12-31] MEDS: LOSARTAN POTASSIUM 50 MG TABLET PO SCH (08:45)
[2017-12-31] MEDS: INSULIN LISPRO 100 UNIT/ML 3 ML VIAL SUBCUT PRN (08:46)
[2017-12-31 10:22] VITALS: BP 132/47
--- NOTE | 2018-01-11 07:00 | PDOC DISCHARGE SUMMARY ---
General - Admit/Disc Date/PCP Admission Date/Primary Care Provider: 12/28/17 23:43 SOFI GUERRIER MD Discharge Date: 12/31/17 - Discharge Diagnosis (1) Hip injury Is this a current diagnosis for this admission?: Yes (2) CAD (coronary artery disease) Is this a current diagnosis for this admission?: Yes (3) IMANI (acute kidney injury) Is this a current diagnosis for this admission?: Yes (4) Urinary tract infection Is this a current diagnosis for this admission?: Yes (5) Diabetes Is this a current diagnosis for this admission?: Yes - Additional Information Resuscitation Status: Full Code Discharge Diet: As Tolerated Discharge Activity: Activity As Tolerated, Balance Activity w/Rest, Slowly Increase Activity Home Medications: Aspirin [Ecotrin 81 mg EC Tablet] 81 mg PO DAILY 12/29/17 Buspirone HCl [Buspar 15 mg Tablet] 15 mg PO Q12 12/29/17 Clopidogrel Bisulfate [Plavix 75 mg Tablet] 75 mg PO DAILY 12/29/17 Gabapentin [Neurontin 300 mg Capsule] 300 mg PO Q12 12/29/17 Isosorbide Dinitrate [Isordil Titradose 20 mg Tablet] 30 mg PO DAILY 12/29/17 Losartan Potassium [Cozaar] 100 mg PO DAILY 12/29/17 Metoprolol Tartrate [Lopressor 50 mg Tablet] 50 mg PO Q12 12/29/17 Nitroglycerin [Nitrostat] 0.4 mg SL Q5MP PRN 12/29/17 Pantoprazole Sodium [Protonix] 40 mg PO DAILY 12/29/17 Ranolazine [Ranexa 500 mg Tab.sr] 500 mg PO Q12 12/29/17 Sertraline HCl [Zoloft] 25 mg PO DAILY 12/29/17 History of Present Illness History of Present Illness: ORACIO PEDROZA is a very pleasant 82 year old female patient whose past medical history of HTN, HLD, CAD, CHF, history of CVA and MN and type II DM , who presented to us after she involved in mechanical fall. Patient reports while she is trying sit down on rocking chair, she lost her balance and landed on her right side. She denies prodrome of dizziness, syncope, blurring of vision, palpitation or any seizure activity. Of note patient discharged from rehab yesterday. Patient is also being treated with Levaquin for urinary tract infection but the organism isolated from her urine culture is resistant to Levaquin. Her urine analysis shows WBC of 75 and leukocyte esterase. X-ray does not show fracture but she has large hematoma over her right hip. Her CT is negative for acute intracranial process. Hospital Course Hospital Course: Status post mechanical fall. No fracture noted on x-ray. Pelvic CT negative for fracture, only demonstrates right gluteal subcutaneous hematoma. Patient was evaluated by Dr. Kent of orthopedics, he has no special recommendations, simply pain management for R hip pain. The patient was able to ambulate with a walker, which she normally uses at home. Tylenol for pain control. The patient initially presented with an IMANI, Creatinine elevated to 1.6, down to <1.0 prior to discharge. Likely secondary to dehydration. Gentle IV hydration given the patient's history of heart failure. Additionally, it was suspected that the patient had a UTI given her complaints of dysuria. Her UA was not wildly impressive for a UTI but the patient was recently hospitalized at [facility] for ESBL E. coli in her urine. She received Rocephin IV, which was subsequently discontinued when her urine culture was negative. The patient was discharged home with instructions on tylenol usage for pain control. Her home medication regimen was not changed, she was instructed to resume taking all of her medications as usual. Physical Exam Vital Signs: Temp Pulse Resp BP Pulse Ox 98.6 F 80 16 132/47 H 95 12/31/17 10:19 12/31/17 10:19 12/31/17 10:19 12/31/17 10:19 12/31/17 10:19 Results Laboratory Results: 12/29/17 05:29 12/31/17 05:15 Impressions: Pelvis CT 12/28/17 00:00 IMPRESSION: No acute right hip or pelvic fracture. Right gluteal subcutaneous hematoma SI joint arthritis, bilateral lower lumbar facet joint arthropathy. Head CT 12/28/17 20:14 IMPRESSION: MILD CHRONIC MICROVASCULAR ISCHEMIA. NO ACUTE IMAGING FINDINGS IN THE BRAIN. EVIDENCE OF ACUTE STROKE: NO. Chest X-Ray 12/28/17 20:16 IMPRESSION: NO ACUTE RADIOGRAPHIC FINDING IN THE CHEST. Shoulder X-Ray 12/28/17 20:30 IMPRESSION: NEGATIVE STUDY OF THE RIGHT SHOULDER. NO RADIOGRAPHIC EVIDENCE OF ACUTE INJURY. Hip/Pelvis X-Ray 12/28/17 23:04 IMPRESSION: NO RADIOGRAPHIC EVIDENCE OF ACUTE INJURY. Status: Imported from PACS Qualifiers - * PATIENT BEING DISCHARGED WITH ANY OF THE FOLLOWING DIAGNOSIS: No Plan Time Spent: Less than 30 Minutes
== END 2017-12-31 11:30 | disposition home health service (06) | DRG 683 ==
LOC: ER 19:53 → EH 23:43 → 3W 12-29 03:19
PROVIDERS: ADMIT Internal Medicine; ATTEND Internal Medicine
DX: N17.9 Acute kidney failure, unspecified (principal); I50.32 Chronic diastolic (congestive) heart failure; N39.0 Urinary tract infection, site not specified; S70.01XA Contusion of right hip, initial encounter; I25.10 Atherosclerotic heart disease of native coronary artery without angina pectoris; E11.9 Type 2 diabetes mellitus without complications; K21.9 Gastro-esophageal reflux disease without esophagitis; F32.9 Major depressive disorder, single episode, unspecified; M19.90 Unspecified osteoarthritis, unspecified site; E78.5 Hyperlipidemia, unspecified; I11.0 Hypertensive heart disease with heart failure; I95.1 Orthostatic hypotension; E86.0 Dehydration; W01.0XXA Fall on same level from slipping, tripping and stumbling without subsequent striking against object, initial encounter; Y92.009 Unspecified place in unspecified non-institutional (private) residence as the place of occurrence of the external cause; I25.2 Old myocardial infarction; Z79.02 Long term (current) use of antithrombotics/antiplatelets; Z86.14 Personal history of Methicillin resistant Staphylococcus aureus infection; Z86.73 Personal history of transient ischemic attack (TIA), and cerebral infarction without residual deficits; Z86.711 Personal history of pulmonary embolism; Z85.828 Personal history of other malignant neoplasm of skin; Z90.49 Acquired absence of other specified parts of digestive tract; Z90.710 Acquired absence of both cervix and uterus; Z79.4 Long term (current) use of insulin; Z79.82 Long term (current) use of aspirin; Z88.6 Allergy status to analgesic agent
CPT/HCPCS: 36415; 70450; 71045; 72192; 80048; 80053; 81001; 82550; 82962; 83735; 84100; 85025; 87040; 87086; 93005; 93010; 96361; 96374; 99284; J0696; J1815; J3010; J7030; J7040

== ENCOUNTER 2018-01-13 18:45 | Emergency (ER) | payer MEDICARE, OTHER ==
--- NOTE | 2018-01-13 20:40 | ER Document Report ---
ED General - General Chief Complaint: Constipation Stated Complaint: ABDOMINAL PAIN Time Seen by Provider: 01/13/18 18:55 Mode of Arrival: Medic Information source: Patient Notes: 82-year-old female presents with 1 week duration of constipation. Patient denies any fevers or chills denies any nausea vomiting or diarrhea. Patient notes for the past week she has not had a bowel movement. Patient states that she has good appetite is eating fine TRAVEL OUTSIDE OF THE [place] IN LAST 30 DAYS: No - HPI Onset: Last week Onset/Duration: Persistent Quality of pain: No pain Severity: Mild Pain Level: Denies Associated symptoms: Other Exacerbated by: Denies Relieved by: Denies Similar symptoms previously: No Recently seen / treated by doctor: No - Related Data Allergies/Adverse Reactions: morphine Allergy (Verified 11/13/17 18:56) Past Medical History - Social History Smoking Status: Never Smoker Cigarette use (# per day): No Chew tobacco use (# tins/day): No Smoking Education Provided: No Frequency of alcohol use: None Drug Abuse: None Family History: CAD, COPD, DM, Hyperlipidemia, Hypertension, Malignancy - Father with lung cancer, Other Patient has suicidal ideation: No Patient has homicidal ideation: No - Past Medical History Cardiac Medical History: Reports: Hx Congestive Heart Failure - Diastolic, Hx Heart Attack - x2, Hx Hypercholesterolemia, Hx Hypertension, Hx Pulmonary Embolism - Distant history Pulmonary Medical History: Denies: Hx Asthma, Hx COPD, Hx Sleep Apnea Neurological Medical History: Denies: Hx Seizures Endocrine Medical History: Reports: Hx Diabetes Mellitus Type 1, Hx Diabetes Mellitus Type 2. Denies: Hx Hyperthyroidism, Hx Hypothyroidism Renal/ Medical History: Denies: Hx End Stage Renal Disease, Hx Peritoneal Dialysis Malignancy Medical History: Reports: Hx Skin Cancer - Excised from her nose. GI Medical History: Reports: Hx Gastroesophageal Reflux Disease. Denies: Hx Cirrhosis, Hx Hepatitis Musculoskeltal Medical History: Reports Hx Arthritis, Reports Hx Musculoskeletal Deformity Skin Medical History: Denies Hx Eczema, Denies Hx Psoriasis Psychiatric Medical History: Reports: Hx Anxiety, Hx Depression Infectious Medical History: Reports: Hx MRSA - Quite distant history. Denies: Hx C-Diff, Hx Hepatitis Past Surgical History: Reports: Hx Abdominal Surgery, Hx Appendectomy, Hx Cholecystectomy, Hx Hysterectomy, Hx Tonsillectomy, Hx Vascular Surgery, Other - Cardiac loop recorder, bilateral cataract surgery - Immunizations Hx Diphtheria, Pertussis, Tetanus Vaccination: No Hx Pneumococcal Vaccination: 04/29/13 Review of Systems - Review of Systems Notes: REVIEW OF SYSTEMS: CONSTITUTIONAL : Denies fever, chills, or sweats. Denies recent illness. EENT: Denies eye, ear, throat, or mouth pain or symptoms. Denies nasal or sinus congestion or discharge. Denies throat, tongue, or mouth swelling or difficulty swallowing. CARDIOVASCULAR: Denies chest pain. Denies palpitations or racing or irregular heart beat. Denies ankle edema. RESPIRATORY: Denies cough, cold, or chest congestion. Denies shortness of breath, difficulty breathing, or wheezing. GASTROINTESTINAL: Admits constipation GENITOURINARY: Denies difficulty urinating, painful urination, burning, frequency, blood in urine, or discharge. FEMALE GENITOURINARY: Denies vaginal bleeding, heavy or abnormal periods, irregular periods. Denies vaginal discharge or odor. MUSCULOSKELETAL: Denies back or neck pain or stiffness. Denies joint pain or swelling. SKIN: Denies rash, lesions or sores. HEMATOLOGIC : Denies easy bruising or bleeding. LYMPHATIC: Denies swollen, enlarged glands. NEUROLOGICAL: Denies confusion or altered mental status. Denies passing out or loss of consciousness. Denies dizziness or lightheadedness. Denies headache. Denies weakness or paralysis or loss of use of either side. Denies problems with gait or speech. Denies sensory loss, numbness, or tingling. Denies seizures. PSYCHIATRIC: Denies anxiety or stress. Denies depression, suicidal ideation, or homicidal ideation. ALL OTHER SYSTEMS REVIEWED AND NEGATIVE. PHYSICAL EXAMINATION: GENERAL: Well-appearing, well-nourished and in no acute distress. HEAD: Atraumatic, normocephalic. EYES: Pupils equal round and reactive to light, extraocular movements intact, conjunctiva are normal. ENT: Nares patent, oropharynx clear without exudates. Moist mucous membranes. NECK: Normal range of motion, supple without lymphadenopathy LUNGS: Breath sounds clear to auscultation bilaterally and equal. No wheezes rales or rhonchi. HEART: Regular rate and rhythm without murmurs ABDOMEN: Soft, nontender, nondistended abdomen. No guarding, no rebound. No masses appreciated. Female : deferred Musculoskeletal: Normal range of motion, no pitting or edema. No cyanosis. NEUROLOGICAL: Cranial nerves grossly intact. Normal speech, normal gait. Normal sensory, motor exams PSYCH: Normal mood, normal affect. SKIN: Warm, Dry, normal turgor, no rashes or lesions noted. Dictation was performed using [employer] voice recognition software Physical Exam - Vital signs Vitals: Temp Pulse Resp BP Pulse Ox 98.8 F 84 16 155/96 H 96 01/13/18 19:23 01/13/18 19:23 01/13/18 19:23 01/13/18 19:23 01/13/18 19:23 Course - Re-evaluation Re-evalutation: 01/13/18 20:40 Patient has no signs of obstruction nonetheless x-ray is pending 01/13/18 21:28 X-rays most consistent with moderate constipation no obstructions noted patient will be written for GoLYTELY is otherwise well-appearing no distress After performing a Medical Screening Examination, I estimate there is LOW risk for ACUTE APPENDICITIS, BOWEL OBSTRUCTION, ACUTE CHOLECYSTITIS, PERFORATED DIVERTICULITIS, INCARCERATED HERNIA, PANCREATITIS, PELVIC INFLAMMATORY DISEASE, PERFORATED ULCER, ECTOPIC , or TUBO-OVARIAN ABSCESS, thus I consider the discharge disposition reasonable. Also, there is no evidence or peritonitis , sepsis, or toxicity. I have reevaluated this patient multiple times and no significant life threatening changes are noted. The patient and I have discussed the diagnosis and risks, and we agree with discharging home with close follow-up with the understanding that symptoms and presentations can change. We also discussed returning to the Emergency Department immediately if new or worsening symptoms occur. We have discussed the symptoms which are most concerning (e.g., bloody stool, fever, changing or worsening pain, vomiting) that necessitate immediate return. - Vital Signs Vital signs: Temp Pulse Resp BP Pulse Ox 98.8 F 84 16 155/96 H 96 01/13/18 19:23 01/13/18 19:23 01/13/18 19:23 01/13/18 19:23 01/13/18 19:23 - Diagnostic Test Radiology reviewed: Image reviewed - KUB notes moderate constipation, Reports reviewed Discharge - Discharge Clinical Impression: Constipation Qualifiers: Constipation type: unspecified constipation type Qualified Code(s): K59.00 - Constipation, unspecified Condition: Stable Disposition: HOME, SELF-CARE Instructions: Constipation ([facility]) Prescriptions: Peg 3350/Na Sulf,Bicarb,Cl/KCl [Golytely Solution 4000 ml] 4,000 ml PO DAILY #1 bottle Referrals: KLEVER SANDOVAL MD [ACTIVE STAFF] - Follow up tomorrow
--- NOTE | 2018-01-13 21:05 | RADIOLOGY REPORT (SQ) ---
EXAM DESCRIPTION: KUB/ABDOMEN (SINGLE VIEW) COMPLETED DATE/TIME: 01/13/2018 8:57 pm REASON FOR STUDY: constipation COMPARISON: 11/14/2017 NUMBER OF VIEWS: One view. TECHNIQUE: Supine radiographic image of the abdomen acquired. LIMITATIONS: None. FINDINGS: BOWEL GAS PATTERN: Normal bowel gas pattern. No dilated loops. CONSTIPATION: moderate CALCIFICATIONS: No suspicious calcifications. SOFT TISSUES: No gross mass or suggestion of organomegaly. HARDWARE: None in the abdomen. BONES: No acute fracture. No worrisome bone lesions. OTHER: No other significant finding. IMPRESSION: NO RADIOGRAPHIC EVIDENCE FOR ACUTE ABDOMINAL DISEASE. Moderate constipation. TECHNICAL DOCUMENTATION: JOB ID: [id number] [employer]- All Rights Reserved Reading location - IP/workstation name: [email or web address]
[2018-01-13 21:46] VITALS: BP 139/91
== END 2018-01-13 21:49 | disposition home or self-care (01) ==
LOC: ER 18:45
DX: K59.00 Constipation, unspecified (principal); R10.9 Unspecified abdominal pain; I50.9 Heart failure, unspecified; E78.00 Pure hypercholesterolemia, unspecified; I11.0 Hypertensive heart disease with heart failure; E11.9 Type 2 diabetes mellitus without complications; Z88.6 Allergy status to analgesic agent; I25.2 Old myocardial infarction; Z86.711 Personal history of pulmonary embolism; Z86.14 Personal history of Methicillin resistant Staphylococcus aureus infection
CPT/HCPCS: 74018; 99284; G0378

== ENCOUNTER 2018-03-06 21:00 | Emergency (ER) | payer MEDICARE, OTHER ==
--- NOTE | 2018-03-06 21:20 | ER Document Report ---
ED Cardiac - General Mode of Arrival: Medic Information source: Patient TRAVEL OUTSIDE OF THE [place] IN LAST 30 DAYS: No <SHAYY ASHER - Last Filed: 03/06/18 21:34> <DREA MURPHY - Last Filed: 03/06/18 23:24> - General Stated Complaint: CHEST PAIN Time Seen by Provider: 03/06/18 21:07 Notes: 82 y.o female with CHF, CAD, HLD, HTN, type 2 DM, GERD and a PMHX of DC and pulmonary embolism presents to the ED via EMS with CP and SOB of onset around 1730 this afternoon. She reports that she took a nap at onset of CP and woke up about 2 hours later and still had her CP. Pt reported her pain as a 10/10, after having Nitroglycerin and Aspirin en route with EMS she now rates her pain as a 4/10. She reports her pain to be in the center chest and states that her pain is exacerbated with walking and movement. Pt denies any bilateral lower extremity edema. Pt's PCP is Dr. Kamara. (SHAYY ASHER) - Related Data Allergies/Adverse Reactions: morphine Allergy (Verified 11/13/17 18:56) Past Medical History - General Information source: Patient - Social History Smoking Status: Never Smoker Chew tobacco use (# tins/day): No Frequency of alcohol use: None Drug Abuse: None Family History: CAD, COPD, DM, Hyperlipidemia, Hypertension, Malignancy - Father with lung cancer, Other - Past Medical History Cardiac Medical History: Reports: Hx Congestive Heart Failure - Diastolic, Hx Heart Attack - x2, Hx Hypercholesterolemia, Hx Hypertension, Hx Pulmonary Embolism - Distant history Endocrine Medical History: Reports: Hx Diabetes Mellitus Type 2 Renal/ Medical History: Denies: Hx Peritoneal Dialysis Malignancy Medical History: Reports: Hx Skin Cancer - Excised from her nose. GI Medical History: Reports: Hx Gastroesophageal Reflux Disease Musculoskeltal Medical History: Reports Hx Arthritis, Reports Hx Musculoskeletal Deformity Psychiatric Medical History: Reports: Hx Anxiety, Hx Depression Infectious Medical History: Reports: Hx MRSA - Quite distant history Past Surgical History: Reports: Hx Abdominal Surgery, Hx Appendectomy, Hx Cholecystectomy, Hx Hysterectomy, Hx Tonsillectomy, Hx Vascular Surgery, Other - Cardiac loop recorder, bilateral cataract surgery - Immunizations Hx Diphtheria, Pertussis, Tetanus Vaccination: No Hx Pneumococcal Vaccination: 04/29/13 <SHAYY ASHER - Last Filed: 03/06/18 21:34> - Social History Cigarette use (# per day): No Smoking Education Provided: No Lives with: Other - Daughter - Medical History Medical History: Other - Patient has a history of extremely high white blood cell count, she has been evaluated by local oncologist and no explanation for these elevated WBCs was ever detected. Pulmonary Medical History: Reports: None EENT Medical History: Reports: None Neurological Medical History: Reports: None Renal/ Medical History: Reports: None <DREA MURPHY - Last Filed: 03/06/18 23:24> Review of Systems - Review of Systems Constitutional: No symptoms reported EENT: No symptoms reported Cardiovascular: See HPI, Chest pain. denies: Edema Respiratory: See HPI, Short of breath Gastrointestinal: No symptoms reported Genitourinary: No symptoms reported Female Genitourinary: No symptoms reported Musculoskeletal: No symptoms reported Skin: No symptoms reported Hematologic/Lymphatic: No symptoms reported Neurological/Psychological: No symptoms reported -: Yes All other systems reviewed and negative <SHAYY ASHER - Last Filed: 03/06/18 21:34> Physical Exam <SHAYY ASHER - Last Filed: 03/06/18 21:34> <DREA MURPHY - Last Filed: 03/06/18 23:24> - Vital signs Vitals: Pulse Ox 95 03/06/18 21:06 - Notes Notes: Physical Exam: General: Alert, appears well. HEENT: Normocephalic. Atraumatic. PERRL. Extraocular movements intact. Oropharynx clear. Neck: Supple. Non-tender. Respiratory: No respiratory distress. Clear and equal breath sounds bilaterally. Cardiovascular: Regular rate and rhythm. Very tender to LT anterior chest wall and some tenderness over the sternum. No tenderness to the RT chest wall. Abdominal: Obese. Non-tender. No distension. Normal Bowel Sounds. Back: Non-tender. No deformity or step off. Extremities: Moves all four extremities. Upper extremities: Normal inspection. Normal ROM. Lower extremities: Normal inspection. No edema. Normal ROM. Neurological: Normal cognition. AAOx3. Normal speech. Psychological: Normal affect. Normal Mood. Skin: Warm. Dry. Normal color. (SHAYY ASHER) Course <SHAYY ASHER - Last Filed: 03/06/18 21:34> - Laboratory Result Diagrams: 03/06/18 22:13 03/06/18 22:13 - Diagnostic Test Radiology reviewed: Image reviewed, Reports reviewed - Chest x-ray is unremarkable - EKG Interpretation by Me EKG shows normal: Sinus rhythm, Aurelia, Intervals, QRS Complexes, ST-T Waves Rate: Tachycardia - 106 Voltage: Consistant with LVH <DREA MURPHY - Last Filed: 03/06/18 23:24> - Re-evaluation Re-evalutation: 03/06/18 23:17 Chest x-ray is unremarkable. EKG does not show acute changes. Troponin is undetectable. Physical exam shows the chest pain to be reproducible. 03/06/18 23:24 The patient was sleeping soundly. I woke her up to give her the results of her lab work, EKG, chest x-ray and diagnosis. She will call her daughter to come get her. (DREA MURPHY) - Vital Signs Vital signs: Temp Pulse Resp BP Pulse Ox 99.2 F 108 H 18 139/72 H 95 03/06/18 21:19 03/06/18 21:19 03/06/18 23:01 03/06/18 23:01 03/06/18 23:01 - Laboratory Laboratory results interpreted by me: 03/06/18 03/06/18 22:13 22:13 WBC 41.8 H* RBC 7.17 H MCV 61 L MCH 18.1 L MCHC 29.9 L RDW 24.1 H Seg Neuts % (Manual) 85 H Band Neutrophils % 1 L Lymphocytes % (Manual) 8 L Abs Neuts (Manual) 35.9 H Abs Monocytes (Manual) 1.7 H Abs Basophils (Manual) 0.4 H Chloride 108 H Glucose 224 H Alkaline Phosphatase 254 H Creatine Kinase 22 L Discharge <SHAYY ASHER - Last Filed: 03/06/18 21:34> <DREA MURPHY - Last Filed: 03/06/18 23:24> - Discharge Clinical Impression: Chest wall pain High blood pressure Qualifiers: Hypertension type: essential hypertension Qualified Code(s): I10 - Essential ( primary) hypertension Leukocytosis Qualifiers: Leukocytosis type: unspecified Qualified Code(s): D72.829 - Elevated white blood cell count, unspecified Disposition: HOME, SELF-CARE Additional Instructions: Chest Wall Pain: Your chest pain has been diagnosed as coming from the chest wall. This is often caused by straining the muscles or joints in the chest during physical activity, direct trauma, coughing, or vigorous vomiting. Persons with arthritis are especially prone to this type of pain, due to inflammation of the cartilage joints near the breast bone. Occasionally, no cause can be found. Rest from strenuous physical activity. This kind of chest pain is usually made worse by movement of the chest. Depending on the symptoms, we may recommend Tylenol and ibuprofen for pain and anti-inflammatory effects. You should contact the doctor immediately if things change. Further evaluation is needed if you develop a fever or cough, if the nature of the pain changes, or if you become short of breath. Your pain seems to be coming from your chest wall muscles and not caused by your heart this evening. Your blood pressure is elevated tonight. Be sure to take all your medications as they are prescribed. Check your blood pressure at least twice daily at home to be sure that it is not elevated all the time. Take Tylenol and ibuprofen for your chest wall pain if needed. Follow-up with your medical doctor tomorrow for recheck. RETURN TO THE EMERGENCY ROOM IF ANY NEW OR WORSENING SYMPTOMS. Referrals: SOFI KAMARA MD [Primary Care Provider] - Follow up tomorrow Scribe Attestation: 03/06/18 22:34 I personally performed the services described in the documentation, reviewed and edited the documentation which was dictated to the scribe in my presence, and it accurately records my words and actions. (DREA MURPHY) Scribe Documentation - Scribe Written by Batool:: Batool Sloan [id number]/06/[id number] acting as scribe for :: Shashi <SHAYY ASHER - Last Filed: 03/06/18 21:34>
--- NOTE | 2018-03-06 22:05 | RADIOLOGY REPORT (SQ) ---
EXAM DESCRIPTION: CHEST SINGLE VIEW COMPLETED DATE/TIME: 03/06/2018 9:57 pm REASON FOR STUDY: CP COMPARISON: 12/28/2017 EXAM PARAMETERS: NUMBER OF VIEWS: One view. TECHNIQUE: Single frontal radiographic view of the chest acquired. RADIATION DOSE: NA LIMITATIONS: None. FINDINGS: LUNGS AND PLEURA: No opacities, masses or pneumothorax. No pleural effusion. MEDIASTINUM AND HILAR STRUCTURES: No masses. Contour normal. HEART AND VASCULAR STRUCTURES: Heart normal in size. Normal vasculature. BONES: No acute findings. HARDWARE: Loop recorder. OTHER: No other significant finding. IMPRESSION: NO ACUTE RADIOGRAPHIC FINDING IN THE CHEST. TECHNICAL DOCUMENTATION: JOB ID: [id number] [employer]- All Rights Reserved Reading location - IP/workstation name: [email or web address]
[2018-03-06 22:41] LABS: HEMATOCRIT 43.4 % (36.0-47.0); MEAN CORPUSCULAR HEMOGLOBIN 18.1 pg (27.0-33.4); MEAN CORPUSCULAR HGB CONC 29.9 g/dL (32.0-36.0); MEAN CORPUSCULAR VOLUME 61 fl (80-97); PLATELET COUNT 307 10^3/uL (150-450); RED CELL DISTRIBUTION WIDTH 24.1 % (11.5-14.0)
--- NOTE | 2018-03-06 22:44 | EKG REPORT ---
SEVERITY:- ABNORMAL ECG - SINUS TACHYCARDIA LVH BY VOLTAGE CONSIDER ANTEROSEPTAL INFARCT : Confirmed by: Seble Miguel MD 06-Mar-2018 22:44:03
[2018-03-06 22:51] LABS: ALANINE AMINOTRANSFERASE 20 U/L (9-52); ALBUMIN 3.7 g/dL (3.5-5.0); ALKALINE PHOSPHATASE 254 U/L (38-126); ANION GAP 9 (5-19); ASPARTATE AMINO TRANSFERASE 19 U/L (14-36); BILIRUBIN,DIRECT 0.4 mg/dL (0.0-0.4); BILIRUBIN,TOTAL 0.8 mg/dL (0.2-1.3); BLOOD UREA NITROGEN 11 mg/dL (7-20); CALCIUM 9.1 mg/dL (8.4-10.2); CARBON DIOXIDE 26 mmol/L (22-30); CHLORIDE 108 mmol/L (98-107); CREATINE KINASE 22 U/L (30-135); GLUCOSE 224 mg/dL (75-110); POTASSIUM 4.5 mmol/L (3.6-5.0); SODIUM 143.1 mmol/L (137-145); TOTAL PROTEIN 7.5 g/dL (6.3-8.2)
[2018-03-06 23:02] LABS: RED BLOOD COUNT 7.17 10^6/uL (3.72-5.28); WHITE BLOOD COUNT 41.8 10^3/uL (4.0-10.5)
[2018-03-06 23:03] LABS: CREATINE KINASE MB 0.66 ng/mL (<4.55)
[2018-03-06 23:05] LABS: ABSOLUTE LYMPHOCYTES# (MANUAL) 3.8 10^3/uL (0.5-4.7); ABSOLUTE MONOCYTES # (MANUAL) 1.7 10^3/uL (0.1-1.4); ABSOLUTE NEUTROPHILS# (MANUAL) 35.9 10^3/uL (1.7-8.2); BAND NEUTROPHILS % (MANUAL) 1 % (3-5); BASOPHILS % (MANUAL) 1 % (0-2); EOSINOPHILS % (MANUAL) 0 % (0-6); LYMPHOCYTES % (MANUAL) 8 % (13-45); MONOCYTES % (MANUAL) 4 % (3-13); SEGMENTED NEUTROPHILS % (MAN) 85 % (42-78); TOTAL CELLS COUNTED 100
[2018-03-06 23:08] LABS: OVALOCYTES 1+; PLATELET COMMENT ADEQUATE; TEAR DROP CELLS SLIGHT
[2018-03-06 23:10] LABS: TROPONIN I < 0.012 ng/mL
[2018-03-06 23:47] VITALS: BP 140/72
== END 2018-03-06 23:50 | disposition home or self-care (01) ==
LOC: ER 21:00
DX: R07.89 Other chest pain (principal); I10 Essential (primary) hypertension; D72.829 Elevated white blood cell count, unspecified; R06.02 Shortness of breath; I50.9 Heart failure, unspecified; I25.10 Atherosclerotic heart disease of native coronary artery without angina pectoris; E78.5 Hyperlipidemia, unspecified; E11.9 Type 2 diabetes mellitus without complications; I25.2 Old myocardial infarction; K21.9 Gastro-esophageal reflux disease without esophagitis; R60.0 Localized edema
CPT/HCPCS: 36415; 71045; 80053; 82550; 82553; 84484; 85025; 93005; 93010; 99285

== ENCOUNTER 2018-03-08 21:32 | Emergency (ER) | payer MEDICARE, OTHER ==
[2018-03-08] MEDS ORDERED: FUROSEMIDE INJ/PF 20 MG/2 ML SDV IV ONE (22:33)
--- NOTE | 2018-03-08 23:11 | ER Document Report ---
ED General - General Chief Complaint: Leg Swelling Stated Complaint: SWELLING IN FEET Time Seen by Provider: 03/08/18 21:59 Notes: Patient is an 80-year-old female presents with complaint of swelling in her legs. She said during the day she went out with her daughter. They went outside and went shopping and then was on her feet for long period time. When she got home she feels that her legs are swelling and she is swelling on her lower abdomen. No difficulty breathing. No chest pain. She does have history of CHF. No other complaints at this time. TRAVEL OUTSIDE OF THE [place] IN LAST 30 DAYS: No - Related Data Allergies/Adverse Reactions: morphine Allergy (Verified 11/13/17 18:56) Past Medical History - Social History Smoking Status: Never Smoker Chew tobacco use (# tins/day): No Frequency of alcohol use: None Drug Abuse: None Family History: CAD, COPD, DM, Hyperlipidemia, Hypertension, Malignancy - Father with lung cancer, Other Patient has suicidal ideation: No Patient has homicidal ideation: No - Past Medical History Cardiac Medical History: Reports: Hx Congestive Heart Failure - Diastolic, Hx Heart Attack - x2, Hx Hypercholesterolemia, Hx Hypertension, Hx Pulmonary Embolism - Distant history Endocrine Medical History: Reports: Hx Diabetes Mellitus Type 2 Renal/ Medical History: Denies: Hx Peritoneal Dialysis Malignancy Medical History: Reports: Hx Skin Cancer - Excised from her nose. GI Medical History: Reports: Hx Gastroesophageal Reflux Disease Musculoskeltal Medical History: Reports Hx Arthritis, Reports Hx Musculoskeletal Deformity Psychiatric Medical History: Reports: Hx Anxiety, Hx Depression Infectious Medical History: Reports: Hx MRSA - Quite distant history Past Surgical History: Reports: Hx Abdominal Surgery, Hx Appendectomy, Hx Cholecystectomy, Hx Hysterectomy, Hx Tonsillectomy, Hx Vascular Surgery, Other - Cardiac loop recorder, bilateral cataract surgery - Immunizations Hx Diphtheria, Pertussis, Tetanus Vaccination: No Hx Pneumococcal Vaccination: 04/29/13 Review of Systems - Review of Systems Notes: My Normal Review Basic REVIEW OF SYSTEMS: CONSTITUTIONAL : Denies fever, chills, or sweats. Denies recent illness. CARDIOVASCULAR: Denies chest pain. RESPIRATORY: Denies cough, cold, or chest congestion. Denies shortness of breath, difficulty breathing, or wheezing. GASTROINTESTINAL: Denies abdominal pain. Denies nausea, vomiting, or diarrhea. Denies constipation. Last BM: GENITOURINARY: Denies difficulty urinating, painful urination, burning, frequency, or blood in urine. MUSCULOSKELETAL: Lower extremity edema SKIN: Denies rash or skin lesions. NEUROLOGICAL: Denies altered mental status or loss of consciousness. Denies headache. ALL OTHER SYSTEMS REVIEWED AND NEGATIVE. Physical Exam - Vital signs Vitals: Pulse Ox 95 03/08/18 21:43 - Notes Notes: General Appearance: Well nourished, alert, cooperative, no acute distress, no obvious discomfort. Well appearing. Vitals: reviewed, See vital signs table. Head: no swelling or tenderness to the head Eyes: PERRL, EOMI, Conjuctiva clear Mouth: No decreasd moisture Lungs: No wheezing, No rales, No rhonci, No accessory muscle use, good air exchange bilaterally. Heart: Normal rate, Regular rythm, No murmur, no rub Abdomen: Normal BS, soft, No rigidity, mild lower abdominal tenderness patient, No guarding, no rebound, no abdominal masses, no organomegaly Extremities: strength 5/5 in all extremities, good pulses in all extremities, no swelling or tenderness in the extremities, 2+ bilateral lower extremity edema. Skin: warm, dry, appropriate color, no rash Neuro: speech clear, oriented x 3, normal affect, responds appropriately to questions. Course - Re-evaluation Re-evalutation: 03/09/18 07:32 Patient does have large leukocytosis which is consistent with her previous CBCs due to her medical history sounds to be female. Patient does have some swelling in her lower extremities. Is not severe. She has just very mild pulmonary vascular congestion on chest x-ray. She has no rales on lung auscultation and she has good oxygen saturation. She has no signs of any respiratory symptoms at this time. I have given her a total of 30 mg of IV Lasix. I will place her life is for the next 7 days. Suspect her swelling occurred today because she was out walking around the heat. I informed her she does keep her legs elevated and take them medication as prescribed. I strongly encouraged her return to ER immediately if at anytime she has any difficulty breathing, any chest pain, worsening swelling, or she feels unwell. Patient agrees with plan will be discharged home. Dictation of this chart was performed using voice recognition software; therefore, there may be some unintended grammatical errors. - Vital Signs Vital signs: Temp Pulse Resp BP Pulse Ox 15 137/68 H 95 03/09/18 01:00 03/08/18 23:01 03/09/18 01:00 - Laboratory Result Diagrams: 03/09/18 00:20 03/08/18 23:50 Laboratory results interpreted by me: 03/08/18 03/09/18 23:50 00:20 WBC 40.8 H* RBC 6.75 H MCV 60 L MCH 18.2 L MCHC 30.5 L RDW 23.5 H Seg Neuts % (Manual) 84 H Lymphocytes % (Manual) 7 L Monocytes % (Manual) 1 L Abs Neuts (Manual) 35.9 H Absolute Eos (Manual) 0.8 H Abs Basophils (Manual) 0.8 H Est GFR ( Amer) 55 L Est GFR (Non-Af Amer) 45 L Glucose 150 H Direct Bilirubin 0.5 H AST 41 H Alkaline Phosphatase 209 H - EKG Interpretation by Me Additional EKG results interpreted by me: 03/08/18 23:11 EKG is reviewed and interpreted by me. EKG shows sinus rhythm with rate of [address] segment elevation or depression. No ischemic T-wave inversions. IL interval, QRS duration, QTc intervals are within normal range. Old EKG for comparison is from March 06, 2018. Discharge - Discharge Clinical Impression: Leg edema Condition: Good Disposition: HOME, SELF-CARE Additional Instructions: Please take the Lasix as prescribed. This will help get rid of the extra fluid you have. Please keep your legs elevated when in bed or sitting down. please say out of the heat. Please follow up with your doctor on Tuesday for reevaluation. Please avoid Prescriptions: Furosemide [Lasix 20 mg Tablet] 20 mg PO QAM #7 tablet Potassium Chloride 10 meq PO DAILY #7 capsule.er Referrals: SOFI GUERRIER MD [Primary Care Provider] - 03/10/18
--- NOTE | 2018-03-08 23:41 | RADIOLOGY REPORT (SQ) ---
EXAM DESCRIPTION: XR CHEST 1 VIEW COMPLETED DATE/TME: 03/08/2018 22:33 CLINICAL HISTORY: swelling, Hx of CHF COMPARISON: 03/06/2018 FINDINGS: Single frontal view of the chest. Atherosclerotic calcification aortic arch. Heart is not enlarged. Leads overlie the chest. Mild pulmonary vascular congestion without interstitial edema. No pneumothorax or pleural effusion. No displaced rib fractures identified. Upper abdominal soft tissues are unremarkable. IMPRESSION: 1. Mild pulmonary vascular congestion without interstitial edema identified.
[2018-03-09 00:28] LABS: ALANINE AMINOTRANSFERASE 17 U/L (9-52); ALBUMIN 3.8 g/dL (3.5-5.0); ALKALINE PHOSPHATASE 209 U/L (38-126); ANION GAP 11 (5-19); ASPARTATE AMINO TRANSFERASE 41 U/L (14-36); BILIRUBIN,DIRECT 0.5 mg/dL (0.0-0.4); BILIRUBIN,TOTAL 0.9 mg/dL (0.2-1.3); BLOOD UREA NITROGEN 20 mg/dL (7-20); CALCIUM 9.3 mg/dL (8.4-10.2); CARBON DIOXIDE 26 mmol/L (22-30); CHLORIDE 107 mmol/L (98-107); GLUCOSE 150 mg/dL (75-110); SODIUM 143.6 mmol/L (137-145); TOTAL PROTEIN 7.7 g/dL (6.3-8.2)
[2018-03-09 00:35] LABS: HEMATOCRIT 40.2 % (36.0-47.0); HEMOGLOBIN 12.3 g/dL (12.0-15.5); MEAN CORPUSCULAR HEMOGLOBIN 18.2 pg (27.0-33.4); MEAN CORPUSCULAR HGB CONC 30.5 g/dL (32.0-36.0); MEAN CORPUSCULAR VOLUME 60 fl (80-97); PLATELET COUNT 302 10^3/uL (150-450); RED BLOOD COUNT 6.75 10^6/uL (3.72-5.28); RED CELL DISTRIBUTION WIDTH 23.5 % (11.5-14.0)
[2018-03-09 00:45] LABS: NT PRO BNP 363 pg/mL (<450)
[2018-03-09 00:46] LABS: TROPONIN I < 0.012 ng/mL
[2018-03-09 00:56] LABS: ABSOLUTE LYMPHOCYTES# (MANUAL) 2.9 10^3/uL (0.5-4.7); ABSOLUTE MONOCYTES # (MANUAL) 0.4 10^3/uL (0.1-1.4); ABSOLUTE NEUTROPHILS# (MANUAL) 35.9 10^3/uL (1.7-8.2); BAND NEUTROPHILS % (MANUAL) 4 % (3-5); BASOPHILS % (MANUAL) 2 % (0-2); EOSINOPHILS % (MANUAL) 2 % (0-6); LYMPHOCYTES % (MANUAL) 7 % (13-45); MONOCYTES % (MANUAL) 1 % (3-13); SEGMENTED NEUTROPHILS % (MAN) 84 % (42-78); TOTAL CELLS COUNTED 100
[2018-03-09 00:58] LABS: ANISOCYTOSIS 3+
[2018-03-09 00:59] LABS: BURR CELLS SLIGHT; OVALOCYTES 1+; PLATELET COMMENT ADEQUATE; POIKILOCYTOSIS 3+; TARGET CELLS 1+; TEAR DROP CELLS 1+
[2018-03-09 01:00] LABS: WHITE BLOOD COUNT 40.8 10^3/uL (4.0-10.5)
[2018-03-09 01:18] VITALS: BP 137/68
[2018-03-09] MEDS ORDERED: ACETAMINOPHEN 325 MG TABLET PO ONE (01:33)
[2018-03-09] MEDS ORDERED: FUROSEMIDE INJ/PF 20 MG/2 ML SDV IV ONE (01:34)
--- NOTE | 2018-03-09 20:42 | EKG REPORT ---
SEVERITY:- ABNORMAL ECG - SINUS RHYTHM MULTIPLE ATRIAL PREMATURE COMPLEXES : Confirmed by: Seble Miguel MD 09-Mar-2018 20:42:08
== END 2018-03-09 02:20 | disposition home or self-care (01) ==
LOC: ER 21:32
DX: M79.89 Other specified soft tissue disorders (principal); I50.9 Heart failure, unspecified; E78.00 Pure hypercholesterolemia, unspecified; I10 Essential (primary) hypertension; E11.9 Type 2 diabetes mellitus without complications; Z88.6 Allergy status to analgesic agent; Z86.711 Personal history of pulmonary embolism; Z86.14 Personal history of Methicillin resistant Staphylococcus aureus infection; Z90.49 Acquired absence of other specified parts of digestive tract; Z90.710 Acquired absence of both cervix and uterus
CPT/HCPCS: 93005; 96376; 99284; 96374; 36415; 85025; 80053; 84484; 83880; 71045; 93010; A9270; J1940 ×2

== ENCOUNTER 2018-03-28 12:32 | Observation (INO) | payer MEDICARE, OTHER ==
[2018-03-28] MEDS ORDERED: ASPIRIN 81 MG TABLET, CHEWABLE PO ONE (13:06)
[2018-03-28] MEDS ORDERED: NITROGLYCERIN 2% OINTMENT 1 GM PACKET TP ONE (13:06)
[2018-03-28 13:10] LABS: HEMATOCRIT 42.8 % (36.0-47.0); HEMOGLOBIN 12.6 g/dL (12.0-15.5); MEAN CORPUSCULAR HEMOGLOBIN 17.7 pg (27.0-33.4); MEAN CORPUSCULAR HGB CONC 29.5 g/dL (32.0-36.0); MEAN CORPUSCULAR VOLUME 60 fl (80-97); PLATELET COUNT 254 10^3/uL (150-450); RED CELL DISTRIBUTION WIDTH 22.9 % (11.5-14.0)
--- NOTE | 2018-03-28 13:12 | ER Document Report ---
ED Cardiac - General Chief Complaint: Chest Pressure Stated Complaint: CHEST PRESSURE Time Seen by Provider: 03/28/18 12:40 TRAVEL OUTSIDE OF THE [place] IN LAST 30 DAYS: No - HPI Notes: 83-year-old female with history of myocardial infarction presents to the emergency department complaining of chest pain. She describes a pressure in the center of her chest nonradiating. She complains of shortness of breath, nausea and diaphoresis. He said this feels similar to her last heart attack which was just after Agatha. Patient also complains of a lot of abdominal cramping. She complains of diarrhea she has had 5 bowel movements a day for the last 2 days. The patient denies fever chills. Has had some nausea but no vomiting. Denies any sick contacts. Denies fever chills denies calf pain or leg swelling. Patient complains of pressure discomfort in her chest she described as 6/10 for intensity. Nothing makes it better or worse. - Related Data Allergies/Adverse Reactions: morphine Allergy (Verified 11/13/17 18:56) Past Medical History - Social History Smoking Status: Former Smoker Chew tobacco use (# tins/day): No Drug Abuse: None Family History: CAD, COPD, DM, Hyperlipidemia, Hypertension, Malignancy - Father with lung cancer, Other Patient has suicidal ideation: No Patient has homicidal ideation: No - Past Medical History Cardiac Medical History: Reports: Hx Congestive Heart Failure - Diastolic, Hx Heart Attack - x2, Hx Hypercholesterolemia, Hx Hypertension, Hx Pulmonary Embolism - Distant history Endocrine Medical History: Reports: Hx Diabetes Mellitus Type 2 Renal/ Medical History: Denies: Hx Peritoneal Dialysis Malignancy Medical History: Reports: Hx Skin Cancer - Excised from her nose. GI Medical History: Reports: Hx Gastroesophageal Reflux Disease Musculoskeletal Medical History: Reports Hx Arthritis, Reports Hx Musculoskeletal Deformity Psychiatric Medical History: Reports: Hx Anxiety, Hx Depression Infectious Medical History: Reports: Hx MRSA - Quite distant history Past Surgical History: Reports: Hx Abdominal Surgery, Hx Appendectomy, Hx Cholecystectomy, Hx Hysterectomy, Hx Tonsillectomy, Hx Vascular Surgery, Other - Cardiac loop recorder, bilateral cataract surgery - Immunizations Hx Diphtheria, Pertussis, Tetanus Vaccination: No Hx Pneumococcal Vaccination: 04/29/13 Review of Systems - Review of Systems Cardiovascular: Chest pain Respiratory: Short of breath Gastrointestinal: Diarrhea, Nausea. denies: Vomiting -: Yes All other systems reviewed and negative Physical Exam - Vital signs Vitals: Temp Resp BP Pulse Ox 98.7 F 17 164/91 H 92 03/28/18 12:37 03/28/18 12:37 03/28/18 12:37 03/28/18 12:37 - Notes Notes: GENERAL_APPEARANCE: well_nourished, alert, cooperative VITALS: reviewed, see vital signs table. HEAD: no_swelling\tenderness on the head. EYES: PERRL, EOMI, conjunctiva_clear. NOSE: no_nasal_discharge. MOUTH: (-)decreased moisture. THROAT: no_throat_inflammation, no_airway_obstruction. no_lymphadenopathy NECK: supple, no_neck_tenderness, (-)thyromegaly. BACK: no_back_tenderness. CHEST_WALL: no_chest_tenderness. LUNGS: no_wheezing, no_rales, no_rhonchi, (-)accessory muscle use, good air exchange bilateral. HEART: normal_rate, normal_rhythm, normal_S1, normal_S2, (-)S3, (-)S4, no_ murmur, no_rub. ABDOMEN: normal_BS, soft, no focal_abd_tenderness -diffuse abdominal crampiness , (-)guarding, (-)rebound, no_organomegaly, no_abd_masses. EXTREMITIES: good pulses in all_extremities, no_swelling\tenderness in the extremities, no_edema. SKIN: warm, dry, good_color, no_rash. MENTAL_STATUS: speech_clear, oriented_X_3, normal_affect, responds_ appropriately to questions. Course - Re-evaluation Re-evalutation: 03/28/18 13:12 82-year-old female with a known history of coronary artery disease presents with chest pain. She states it feels similar to her prior event we will give her aspirin and nitroglycerin. Will begin a cardiac workup also she complains of some abdominal cramping she really is no focal tenderness on exam complains some diarrhea will do a workup for this also. We will give her IV fluids. 03/28/18 15:11 So far the workup has been negative except for an elevated white count which is been unchanged from her prior WBCs. I have looked through all the records and do not see a formal diagnosis of leukemia. Looks like she chronically has elevated white counts. Patient received aspirin and Nitropaste here. She does have a known history. Because of her history she states this is similar to prior events. Due to her advanced age comorbidities and known disease she has a higher heart score and I will consult the hospitalist for observation for serial enzyme testing possibly echocardiogram/stress testing. - Vital Signs Vital signs: Temp Pulse Resp BP Pulse Ox 98.7 F 17 164/91 H 91 L 03/28/18 12:37 03/28/18 12:37 03/28/18 12:37 03/28/18 12:38 - Laboratory Result Diagrams: 03/28/18 12:39 03/28/18 12:39 Laboratory results interpreted by me: 03/28/18 03/28/18 12:39 12:39 WBC 43.8 H* RBC 7.13 H MCV 60 L MCH 17.7 L MCHC 29.5 L RDW 22.9 H Seg Neuts % (Manual) 93 H Band Neutrophils % 2 L Lymphocytes % (Manual) 3 L Monocytes % (Manual) 1 L Abs Neuts (Manual) 41.6 H Glucose 258 H Alkaline Phosphatase 197 H Creatine Kinase 21 L - EKG Interpretation by Me EKG shows normal: Sinus rhythm Rate: Normal Rhythm: NSR When compared to previous EKG there are: No significant change Additional EKG results interpreted by me: 03/28/18 14:51 LVH Discharge - Discharge Clinical Impression: Chest pain Qualifiers: Chest pain type: other chest pain Qualified Code(s): R07.89 - Other chest pain ; R07.8 - Other chest pain Condition: Stable Disposition: ADMITTED OBSERVATION Admitting Provider: Hospitalist Unit Admitted: Telemetry Referrals: SOFI GUERRIER MD [Primary Care Provider] - Follow up as needed
[2018-03-28] MEDS ORDERED: NORMAL SALINE 1000 ML 1,000 ML IV ONE (13:13)
[2018-03-28 13:17] LABS: ALANINE AMINOTRANSFERASE 18 U/L (9-52); ALBUMIN 3.5 g/dL (3.5-5.0); ALKALINE PHOSPHATASE 197 U/L (38-126); ANION GAP 13 (5-19); ASPARTATE AMINO TRANSFERASE 18 U/L (14-36); BILIRUBIN,DIRECT 0.3 mg/dL (0.0-0.4); BILIRUBIN,TOTAL 0.7 mg/dL (0.2-1.3); BLOOD UREA NITROGEN 12 mg/dL (7-20); CARBON DIOXIDE 25 mmol/L (22-30); CHLORIDE 105 mmol/L (98-107); CREATINE KINASE 21 U/L (30-135); GLUCOSE 258 mg/dL (75-110); POTASSIUM 4.6 mmol/L (3.6-5.0); SODIUM 142.8 mmol/L (137-145); TOTAL PROTEIN 7.2 g/dL (6.3-8.2)
--- NOTE | 2018-03-28 13:21 | RADIOLOGY REPORT (SQ) ---
EXAM DESCRIPTION: CHEST SINGLE VIEW COMPLETED DATE/TIME: 03/28/2018 1:11 pm REASON FOR STUDY: chest pressure COMPARISON: 03/08/2018. EXAM PARAMETERS: NUMBER OF VIEWS: One view. TECHNIQUE: Single frontal radiographic view of the chest acquired. RADIATION DOSE: NA LIMITATIONS: None. FINDINGS: LUNGS AND PLEURA: No opacities, masses or pneumothorax. No pleural effusion. MEDIASTINUM AND HILAR STRUCTURES: No masses. Contour normal. HEART AND VASCULAR STRUCTURES: Heart normal in size. Normal vasculature. BONES: No acute findings. HARDWARE: None in the chest. OTHER: No other significant finding. IMPRESSION: NO ACUTE RADIOGRAPHIC FINDING IN THE CHEST. TECHNICAL DOCUMENTATION: JOB ID: [id number] [employer]- All Rights Reserved Reading location - IP/workstation name: [email or web address]
[2018-03-28 13:29] LABS: TROPONIN I < 0.012 ng/mL
--- NOTE | 2018-03-28 13:33 | RADIOLOGY REPORT (SQ) ---
EXAM DESCRIPTION: CT ABD/PELVIS NO ORAL OR IV COMPLETED DATE/TIME: 03/28/2018 1:18 pm REASON FOR STUDY: abd pain COMPARISON: May 2017 TECHNIQUE: CT scan of the abdomen and pelvis performed without intravenous or oral contrast. Images reviewed with lung, soft tissue, and bone windows. Reconstructed coronal and sagittal MPR images revi ewed. All images stored on PACS. All CT scanners at this facility use dose modulation, iterative reconstruction, and/or weight based d osing when appropriate to reduce radiation dose to as low as reasonably achievable (ALARA). [facility]: Dose Right [facility]: CareDose [facility]: Dose Right [facility]: Teradose 4D [facility]: [employer] RADIATION DOSE: mGy. LIMITATIONS: None. FINDINGS: LOWER CHEST: No significant findings. No nodules or infiltrates. NON-CONTRASTED LIVER, SPLEEN, ADRENALS: Evaluation limited by lack of IV contrast. No identified sign ificant masses. The spleen appears enlarged. PANCREAS: No masses. No peripancreatic inflammatory changes. GALLBLADDER: Status post cholecystectomy RIGHT KIDNEY AND URETER: No suspicious masses. Assessment limited by lack of IV contrast. No signif icant calcifications. No hydronephrosis or hydroureter. LEFT KIDNEY AND URETER: No suspicious masses. Assessment limited by lack of IV contrast. No signifi cant calcifications. No hydronephrosis or hydroureter. AORTA AND RETROPERITONEUM: No aneurysm. No retroperitoneal masses or adenopathy. BOWEL AND PERITONEAL CAVITY: No obvious masses or inflammatory changes. No free fluid. APPENDIX: Status post appendectomy PELVIS, BLADDER, AND ABDOMINAL WALL:No abnormal masses. No free fluid. Bladder normal. Small umbilic al hernia is identified containing fat BONES: Degenerative changes are identified with a mild thoracolumbar scoliosis convex to the left. OTHER: No other significant finding. IMPRESSION: Spleen appears enlarged without focal splenic abnormalities being identified. No other significant intra-abdominal or pelvic abnormalities were identified. Other findings as noted above COMMENT: Quality ID # [id number]: Final reports with documentation of one or more dose reduction techniques (e.g., Automated exposure control, adjustment of the mA and/or kV according to patient size, use of iterative reconstruction technique) TECHNICAL DOCUMENTATION: JOB ID: [id number] [employer]- All Rights Reserved Reading location - IP/workstation name: [email or web address]
[2018-03-28 13:45] LABS: RED BLOOD COUNT 7.13 10^6/uL (3.72-5.28)
[2018-03-28 13:51] LABS: WHITE BLOOD COUNT 43.8 10^3/uL (4.0-10.5)
[2018-03-28 13:56] LABS: ABSOLUTE LYMPHOCYTES# (MANUAL) 1.3 10^3/uL (0.5-4.7); ABSOLUTE MONOCYTES # (MANUAL) 0.4 10^3/uL (0.1-1.4); ABSOLUTE NEUTROPHILS# (MANUAL) 41.6 10^3/uL (1.7-8.2); ANISOCYTOSIS 2+; BAND NEUTROPHILS % (MANUAL) 2 % (3-5); BASOPHILS % (MANUAL) 0 % (0-2); EOSINOPHILS % (MANUAL) 1 % (0-6); HYPOCHROMASIA 1+; LYMPHOCYTES % (MANUAL) 3 % (13-45); MONOCYTES % (MANUAL) 1 % (3-13); OVALOCYTES 2+; PLATELET COMMENT ADEQUATE; POIKILOCYTOSIS 2+; POLYCHROMASIA 1+; SEGMENTED NEUTROPHILS % (MAN) 93 % (42-78); TEAR DROP CELLS SLIGHT; TOTAL CELLS COUNTED 100; TOXIC GRANULATION SLIGHT; TOXIC VACUOLATION PRESENT
[2018-03-28 13:57] LABS: PLATELET CLUMPS PRESENT; PLATELET GIANT PRESENT; PLATELET LARGE PRESENT
[2018-03-28] MEDS ORDERED: NITROGLYCERIN 0.4 MG/TAB 25 TAB/BOTTLE SL PRN (16:14)
[2018-03-28] MEDS ORDERED: GLUCAGON,HUMAN RECOMB 1 MG INJ IM PRN (16:16)
[2018-03-28] MEDS ORDERED: DEXTROSE 50%-WATER 25 GM/50 ML DISP.SYRIN IV PRN ×4 (16:16→16:40)
[2018-03-28] MEDS ORDERED: DEXTROSE 40% GEL 15 GM TUBE PO PRN ×4 (16:16→16:40)
[2018-03-28] MEDS ORDERED: TEMAZEPAM 7.5 MG CAPSULE PO PRN (16:40)
[2018-03-28] MEDS ORDERED: GLUCAGON,HUMAN RECOMB 1 MG INJ SUBCUT PRN (16:40)
[2018-03-28] MEDS ORDERED: HYDRALAZINE HCL INJ/PF 20 MG/1 ML SDV IV PRN (17:14)
--- NOTE | 2018-03-28 17:14 | PDOC H&P ---
History of Present Illness Admission Date/PCP: 03/28/18 15:25 SOFI GUERRIER MD Patient complains of: Chest pain History of Present Illness: The patient is an 83-year-old female with past medical history reportedly significant for chronic diastolic congestive heart failure, coronary artery disease and diabetes mellitus. She reports a history of a myocardial infarction. The patient also has a history for the past years of a chronically elevated white blood cell count. The patient presented to the emergency room with chest pain. She describes it as a pressure in her chest that is nonradiating. She did complain of shortness of breath and nausea with associated diaphoresis. She states this feels similar to her previous heart attack she had. She also reports that she has had a lot of abdominal cramping recently. She states that for several days prior to coming to the hospital that she was having watery diarrhea. She states she has had no diarrhea however today. In the emergency room her EKG was unremarkable. Initial troponin was negative. She was referred for admission. Past Medical History Cardiac Medical History: Reports: Congestive Heart Failure - Diastolic, Myocardial Infarction - x2, Hyperlipidema, Hypertension, Pulmonary Embolism - Distant history Pulmonary Medical History: Reports: None EENT Medical History: Reports: None Neurological Medical History: Denies: Hemorrhagic CVA, Ischemic CVA Endocrine Medical History: Reports: Diabetes Mellitus Type 2, Obesity Renal/ Medical History: Denies: Chronic Kidney Disease Malignancy Medical History: Reports: Skin Cancer - Excised from her nose., Other - The patient with a chronically elevated white blood cell count GI Medical History: Reports: Gastroesophageal Reflux Disease Musculoskeltal Medical History: Reports: Arthritis Skin Medical History: Reports: None Psychiatric Medical History: Reports: Depression Traumatic Medical History: Reports: None Hematology: Reports: Anemia Infectious Medical History: Reports: Methicillin-Resistant Staph Aureus - Quite distant history Past Surgical History Past Surgical History: Reports: Appendectomy, Cholecystectomy, Hysterectomy, Tonsillectomy, Vascular Surgery, Other - Cardiac loop recorder, bilateral cataract surgery Social History Information Source: Patient Lives with: Family Smoking Status: Former Smoker Frequency of Alcohol Use: None Hx Recreational Drug Use: No Drugs: None Hx Prescription Drug Abuse: No - Advance Directive Resuscitation Status: Full Code Surrogate healthcare decision maker:: Jaylyn Muir (daughter) [phone] Family History Family History: CAD, COPD, DM, Hyperlipidemia, Hypertension, Malignancy - Father with lung cancer, Other Parental Family History Reviewed: Yes Children Family History Reviewed: Yes Sibling(s) Family History Reviewed.: Yes Medication/Allergy Home Medications: Aspirin [Ecotrin 81 mg EC Tablet] 81 mg PO DAILY 12/29/17 Buspirone HCl [Buspar 15 mg Tablet] 15 mg PO Q12 12/29/17 Clopidogrel Bisulfate [Plavix 75 mg Tablet] 75 mg PO DAILY 12/29/17 Gabapentin [Neurontin 300 mg Capsule] 300 mg PO Q12 12/29/17 Isosorbide Dinitrate [Isordil Titradose 20 mg Tablet] 30 mg PO DAILY 12/29/17 Metoprolol Tartrate [Lopressor 50 mg Tablet] 50 mg PO Q12 12/29/17 Nitroglycerin [Nitrostat] 0.4 mg SL Q5MP PRN 12/29/17 Pantoprazole Sodium [Protonix] 40 mg PO DAILY 12/29/17 Ranolazine [Ranexa 500 mg Tab.sr] 500 mg PO Q12 12/29/17 Sertraline HCl [Zoloft] 25 mg PO DAILY 12/29/17 Furosemide [Lasix 20 mg Tablet] 20 mg PO QAM #7 tablet 03/09/18 Potassium Chloride 10 meq PO DAILY #7 capsule.er 03/09/18 Glimepiride [Amaryl] 2 mg PO Q12 03/28/18 Hum Insulin NPH/Reg Insulin Hm [Novolin 70-30 100 Unit/Ml Vial] 0 unit SQ Losartan Potassium [Cozaar 50 mg Tablet] 50 mg PO DAILY 03/28/18 Sitagliptin Phosphate [Januvia] 100 mg PO DAILY 03/28/18 Allergies/Adverse Reactions: morphine Allergy (Verified 11/13/17 18:56) Review of Systems Constitutional: PRESENT: as per HPI, fatigue, headache(s), weakness. ABSENT: chills Eyes: ABSENT: visual disturbances Ears: ABSENT: hearing changes Nose, Mouth, and Throat: PRESENT: headache(s). ABSENT: mouth pain, sore throat Cardiovascular: PRESENT: chest pain, dyspnea on exertion, edema. ABSENT: orthropnea, palpitations Respiratory: ABSENT: cough, dyspnea, hemoptysis, sputum Gastrointestinal: PRESENT: abdominal pain, diarrhea. ABSENT: dysphagia, heartburn, melena, nausea, vomiting Genitourinary: ABSENT: difficulty urinating, dysuria Musculoskeletal: ABSENT: joint swelling Integumentary: ABSENT: rash, wounds Neurological: ABSENT: abnormal gait, abnormal speech, confusion, dizziness, focal weakness, syncope Psychiatric: ABSENT: anxiety, depression, homidical ideation, suicidal ideation Endocrine: ABSENT: cold intolerance, heat intolerance, polydipsia, polyuria Hematologic/Lymphatic: ABSENT: easy bleeding, easy bruising Physical Exam Vital Signs: Temp Pulse Resp BP Pulse Ox 98.7 F 17 164/91 H 91 L 03/28/18 12:37 03/28/18 12:37 03/28/18 12:37 03/28/18 12:38 General appearance: PRESENT: no acute distress, morbidly obese, well-developed, well-nourished Head exam: PRESENT: atraumatic, normocephalic Eye exam: PRESENT: conjunctiva pink, EOMI, PERRLA. ABSENT: scleral icterus Ear exam: PRESENT: normal external ear exam Mouth exam: PRESENT: moist Neck exam: ABSENT: carotid bruit, JVD, thyromegaly Respiratory exam: PRESENT: clear to auscultation carmen. ABSENT: rales, rhonchi, wheezes Cardiovascular exam: PRESENT: RRR. ABSENT: diastolic murmur, rubs, systolic murmur Pulses: PRESENT: normal dorsalis pedis pul GI/Abdominal exam: PRESENT: normal bowel sounds, soft, tenderness - She is tender to palpation in the left upper quadrant. No rebound guarding or rigidity. ABSENT: distended, guarding, mass, organolmegaly, rebound Rectal exam: PRESENT: deferred Extremities exam: PRESENT: full ROM, pedal edema. ABSENT: calf tenderness, clubbing Musculoskeletal exam: PRESENT: ambulatory - She uses a rolling walker Neurological exam: PRESENT: alert, awake, oriented to person, oriented to place , oriented to time, oriented to situation, CN II-XII grossly intact. ABSENT: motor sensory deficit Psychiatric exam: PRESENT: appropriate affect, normal mood. ABSENT: homicidal ideation, suicidal ideation Skin exam: PRESENT: dry, intact, warm. ABSENT: cyanosis, rash Results Impressions: Chest X-Ray 03/28/18 12:36 IMPRESSION: NO ACUTE RADIOGRAPHIC FINDING IN THE CHEST. Abdomen/Pelvis CT 03/28/18 12:52 IMPRESSION: Spleen appears enlarged without focal splenic abnormalities being identified. No other significant intra-abdominal or pelvic abnormalities were identified. Other findings as noted above Assessment & Plan - Diagnosis (1) Chest pain Is this a current diagnosis for this admission?: Yes Plan: The patient with a reported history of an FL in the past. She has known chronic diastolic congestive heart failure. I cannot rule out a cardiac source of her chest pain. She will be placed in observation in the hospital. Her serial troponins will be trended overnight. She is a very poor historian but states that she never had a cardiac catheterization. Going to consult cardiology for further recommendations. She will have a stress test ordered for in the morning of her troponins remained negative. She is on appropriate medical therapy at this point. I do not believe she needs to be anticoagulated. (2) Myeloproliferative disorder Is this a current diagnosis for this admission?: Yes Plan: I spoke to Dr. Garcia from the hematology service. The patient does have a markedly elevated white blood cell count as well as splenomegaly noted on her CT scan. The patient did have a bone marrow biopsy in October of this year and never followed up with them as an outpatient. According to Dr. Garcia this biopsy was abnormal and she had evidence of a myeloproliferative disorder. This is been untreated and could be part of why she is having all of these issues. I am consulting Dr. Garcia to see her here in the hospital. Hopefully we can get her good outpatient follow-up. It appears that this whole situation fell through the cracks. She will have a CBC drawn in the morning (3) Chronic diastolic (congestive) heart failure Is this a current diagnosis for this admission?: Yes Plan: The patient appears to be euvolemic. She has grade 2 diastolic dysfunction on her most recent echocardiogram. Cardiology has been consulted. (4) Coronary artery disease Is this a current diagnosis for this admission?: Yes Plan: According to the patient she has never had a cardiac catheterization. She is on appropriate medical therapy which we will continue. Cardiology has been consulted. (5) Hypertension Is this a current diagnosis for this admission?: Yes Plan: Blood pressure is quite high this evening. She will continue her usual home regimen and I will have IV hydralazine available as needed. (6) Diabetes mellitus Is this a current diagnosis for this admission?: Yes Plan: I will hold her home medications and she will have sliding scale insulin available here in the hospital. We will check fingerstick blood sugars before meals at bedtime (7) GERD (gastroesophageal reflux disease) Is this a current diagnosis for this admission?: Yes Plan: Continue PPI therapy here in the hospital (8) Diarrhea Is this a current diagnosis for this admission?: Yes Plan: This is resolved today but she did have several days of watery diarrhea prior to coming into the hospital. CT scan of the abdomen and pelvis revealed splenomegaly but otherwise is unremarkable. No evidence of colitis (9) Full code status Is this a current diagnosis for this admission?: Yes - Time Time Spent: 50 to 70 Minutes - Inpatient Certification Based on my medical assessment, after consideration of the patient's comorbidities, presenting symptoms, or acuity I expect that the services needed warrant INPATIENT care.: Yes I certify that my determination is in accordance with my understanding of Medicare's requirements for reasonable and necessary INPATIENT services [42 CFR 412.3e].: Yes Medical Necessity: Other - The patient will be will be admitted to observation in the hospital. This will be her first midnight and we will pursue workup tomorrow. At this point her workup can be completed within 2 midnights and hopefully she can be discharged tomorrow afternoon with a good plan in place.
[2018-03-28 19:20] LABS: APPEARANCE,URINE CLEAR; BILIRUBIN,URINE NEGATIVE (NEGATIVE); COLOR,URINE YELLOW; GLUCOSE, URINE NEGATIVE (NEGATIVE); KETONES,URINE NEGATIVE (NEGATIVE); LEUKOCYTE ESTERASE,URINE MODERATE (NEGATIVE); NITRITE,URINE NEGATIVE (NEGATIVE); PROTEIN,URINE NEGATIVE (NEGATIVE); URINE SPECIFIC GRAVITY 1.012
[2018-03-28 19:47] LABS: CREATINE KINASE MB 0.56 ng/mL (<4.55)
[2018-03-28 19:55] LABS: TROPONIN I < 0.012 ng/mL
[2018-03-28] MEDS ORDERED: RANOLAZINE 500 MG TAB.SR.12H PO ONE (22:20)
--- NOTE | 2018-03-28 22:24 | EKG REPORT ---
SEVERITY:- ABNORMAL ECG - SINUS RHYTHM CONSIDER LEFT VENTRICULAR HYPERTROPHY ANTERIOR Q WAVES, POSSIBLY DUE TO LVH VS ANTERIOR TN OLD : Confirmed by: Bud Medina 28-Mar-2018 22:23:36
[2018-03-28] MEDS: METOPROLOL TARTRATE 50 MG TABLET PO SCH (22:33)
[2018-03-28] MEDS: BUSPIRONE HCL 10 MG TABLET PO SCH (22:35)
[2018-03-28] MEDS: GABAPENTIN 300 MG CAPSULE PO SCH (22:35)
[2018-03-28] MEDS: RANOLAZINE 500 MG TAB.SR.12H PO SCH (22:35)
[2018-03-28] MEDS: ACETAMINOPHEN 325 MG TABLET PO PRN (22:50)
[2018-03-29 01:46] LABS: CREATINE KINASE MB 0.68 ng/mL (<4.55)
[2018-03-29 01:47] LABS: TROPONIN I < 0.012 ng/mL
[2018-03-29] MEDS: LANSOPRAZOLE 30 MG TAB.RAP.DR PO SCH (05:56)
[2018-03-29] MEDS: BUSPIRONE HCL 10 MG TABLET PO SCH ×3 (05:56→21:45)
[2018-03-29] MEDS ORDERED: TRAMADOL HCL 50 MG TABLET PO PRN (08:09)
[2018-03-29 08:11] LABS: HEMATOCRIT 42.8 % (36.0-47.0); HEMOGLOBIN 12.9 g/dL (12.0-15.5); MEAN CORPUSCULAR HEMOGLOBIN 17.9 pg (27.0-33.4); MEAN CORPUSCULAR HGB CONC 30.1 g/dL (32.0-36.0); MEAN CORPUSCULAR VOLUME 59 fl (80-97); PLATELET COUNT 298 10^3/uL (150-450); RED CELL DISTRIBUTION WIDTH 22.8 % (11.5-14.0)
[2018-03-29 08:12] LABS: ANION GAP 11 (5-19); BLOOD UREA NITROGEN 11 mg/dL (7-20); CALCIUM 9.4 mg/dL (8.4-10.2); CARBON DIOXIDE 28 mmol/L (22-30); CHLORIDE 104 mmol/L (98-107); CHOLESTEROL 111.74 mg/dL (0-200); GLUCOSE 156 mg/dL (75-110); PHOSPHORUS 3.1 mg/dL (2.5-4.5); POTASSIUM 4.2 mmol/L (3.6-5.0); SODIUM 143.4 mmol/L (137-145); TRIGLYCERIDES 171 mg/dL (<150)
[2018-03-29] MEDS: ACETAMINOPHEN 325 MG TABLET PO PRN (08:16)
[2018-03-29 08:22] LABS: DIRECT LDL 40 mg/dL (<100)
[2018-03-29 08:23] LABS: CREATINE KINASE MB 0.58 ng/mL (<4.55)
[2018-03-29 08:24] LABS: CREATINE KINASE < 20 U/L (30-135); TROPONIN I < 0.012 ng/mL; VLDL CHOLESTEROL 34.2 mg/dL (10-31)
--- NOTE | 2018-03-29 09:41 | PDOC CONSULTATION ---
Consultation Consult Date: 03/29/18 Consult reason:: Hematology/Oncology consultation was requested for patient with elevated WBC count. History of Present Illness Admission Date/PCP: 03/28/18 15:25 SOFI GUERRIER MD History of Present Illness: ORACIO PEDROZA is a 82 year old female who was admitted to the hospital for chest pain. She was originally seen by me in October of this year for the high WBC count. Bone marrow biopsy at that time showed a myeloproliferative process , most consistent with myelofibrosis. 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 However, she did not follow-up as outpatient for treatment. She states that over the last few days, she has had frequency of urination, dysuria, and chest tightness. This morning she is complaining of Headache, some difficulty breathing, and stomach upset due to not being able to eat anything. She is currently NPO for possible stress test later this morning. Past Medical History Cardiac Medical History: Reports: Congestive Heart Failure - Diastolic, Myocardial Infarction - x2, Hyperlipidema, Hypertension, Pulmonary Embolism - Distant history Pulmonary Medical History: Reports: None EENT Medical History: Reports: None Neurological Medical History: Denies: Hemorrhagic CVA, Ischemic CVA Endocrine Medical History: Reports: Diabetes Mellitus Type 2, Obesity Renal/ Medical History: Denies: Chronic Kidney Disease Malignancy Medical History: Reports: Skin Cancer - Excised from her nose., Other - The patient with a chronically elevated white blood cell count GI Medical History: Reports: Gastroesophageal Reflux Disease Musculoskeltal Medical History: Reports: Arthritis Skin Medical History: Reports: None Psychiatric Medical History: Reports: Depression Traumatic Medical History: Reports: None Hematology: Reports: Anemia Infectious Medical History: Reports: Methicillin-Resistant Staph Aureus - Quite distant history Past Surgical History Past Surgical History: Reports: Appendectomy, Cholecystectomy, Hysterectomy, Tonsillectomy, Vascular Surgery, Other - Cardiac loop recorder, bilateral cataract surgery Social History Lives with: Family Smoking Status: Former Smoker Frequency of Alcohol Use: None Hx Recreational Drug Use: No Drugs: None Hx Prescription Drug Abuse: No - Advance Directive Resuscitation Status: Full Code Family History Family History: CAD, COPD, DM, Hyperlipidemia, Hypertension, Malignancy - Father with lung cancer. Cousin with leukemia. 3 brothers with unknown cancers. Mother also of unknown type of cancer., Other Parental Family History Reviewed: Yes Children Family History Reviewed: Yes Sibling(s) Family History Reviewed.: Yes Medication/Allergy Home Medications: Aspirin [Aspirin EC] 81 mg PO DAILY 03/28/18 Buspirone HCl [Buspar 15 mg Tablet] 15 mg PO Q12 03/28/18 Clopidogrel Bisulfate [Plavix 75 mg Tablet] 75 mg PO DAILY 03/28/18 Gabapentin [Neurontin 300 mg Capsule] 300 mg PO Q12 03/28/18 Glimepiride [Amaryl] 2 mg PO Q12 03/28/18 Insulin Aspart Protam & Aspart [Novolog Mix 70-30 Vial] 65 unit SQ Q12 03/28/18 Losartan Potassium [Cozaar 50 mg Tablet] 50 mg PO DAILY 03/28/18 Pantoprazole Sodium [Protonix] 40 mg PO DAILY 03/28/18 Sertraline HCl [Zoloft] 25 mg PO DAILY 03/28/18 Sitagliptin Phosphate [Januvia 50 mg Tablet] 100 mg PO DAILY 03/28/18 Allergies/Adverse Reactions: morphine Allergy (Verified 11/13/17 18:56) Review of Systems Constitutional: PRESENT: headache(s). ABSENT: fever(s) Eyes: ABSENT: visual disturbances Ears: ABSENT: hearing changes Nose, Mouth, and Throat: ABSENT: sore throat Cardiovascular: PRESENT: chest pain, dyspnea on exertion Respiratory: PRESENT: dyspnea. ABSENT: cough Gastrointestinal: PRESENT: abdominal pain, diarrhea Genitourinary: PRESENT: dysuria, other - frequency Musculoskeletal: ABSENT: muscle weakness Integumentary: ABSENT: rash Neurological: ABSENT: frequent falls Endocrine: PRESENT: polyuria Hematologic/Lymphatic: ABSENT: lymphadenopathy Physical Exam Vital Signs: Temp Pulse Resp BP Pulse Ox 98.6 F 97 18 151/70 H 94 03/29/18 08:17 03/29/18 08:17 03/29/18 08:17 03/29/18 08:17 03/29/18 08:17 Intake & Output 03/28/18 03/29/18 03/30/18 06:59 06:59 06:59 Intake Total 1000 Balance 1000 Weight 93.7 kg General appearance: PRESENT: mild distress, obese Exam: 82 year old female. Head exam: PRESENT: atraumatic, normocephalic Eye exam: PRESENT: PERRLA Ear exam: PRESENT: normal external ear exam Mouth exam: PRESENT: tongue midline Neck exam: ABSENT: lymphadenopathy, tenderness Respiratory exam: PRESENT: clear to auscultation carmen, tachypnea Cardiovascular exam: PRESENT: RRR Pulses: PRESENT: normal dorsalis pedis pul GI/Abdominal exam: PRESENT: soft. ABSENT: tenderness Extremities exam: ABSENT: pedal edema Neurological exam: PRESENT: alert, awake Psychiatric exam: PRESENT: appropriate affect Skin exam: PRESENT: normal color Results Laboratory Results: 03/29/18 07:18 03/29/18 07:18 03/28/18 03/29/18 03/29/18 18:50 07:18 07:18 WBC 44.0 H* RBC 7.20 H Hgb 12.9 Hct 42.8 MCV 59 L MCH 17.9 L MCHC 30.1 L RDW 22.8 H Plt Count 298 Sodium 143.4 Potassium 4.2 Chloride 104 Carbon Dioxide 28 Anion Gap 11 BUN 11 Creatinine 0.76 Est GFR ( Amer) > 60 Est GFR (Non-Af Amer) > 60 Glucose 156 H Calcium 9.4 Phosphorus 3.1 Magnesium 1.8 Triglycerides 171 H Cholesterol 111.74 LDL Cholesterol Direct 40 VLDL Cholesterol 34.2 H HDL Cholesterol 27 L TSH Urine Color YELLOW Urine Appearance CLEAR Urine pH 5.0 Ur Specific [place] 1.012 Urine Protein NEGATIVE Urine Glucose (UA) NEGATIVE Urine Ketones NEGATIVE Urine Blood NEGATIVE Urine Nitrite NEGATIVE Ur Leukocyte Esterase MODERATE H Urine WBC (Auto) 31 Urine RBC (Auto) 2 03/29/18 07:20 WBC RBC Hgb Hct MCV MCH MCHC RDW Plt Count Sodium Potassium Chloride Carbon Dioxide Anion Gap BUN Creatinine Est GFR ( Amer) Est GFR (Non-Af Amer) Glucose Calcium Phosphorus Magnesium Triglycerides Cholesterol LDL Cholesterol Direct VLDL Cholesterol HDL Cholesterol TSH 4.62 Urine Color Urine Appearance Urine pH Ur Specific [place] Urine Protein Urine Glucose (UA) Urine Ketones Urine Blood Urine Nitrite Ur Leukocyte Esterase Urine WBC (Auto) Urine RBC (Auto) 03/28/18 03/28/18 03/29/18 19:05 19:05 01:04 Creatine Kinase < 20 L 21 L CK-MB (CK-2) 0.56 Troponin I < 0.012 03/29/18 03/29/18 03/29/18 01:04 07:18 07:18 Creatine Kinase < 20 L CK-MB (CK-2) 0.68 0.58 Troponin I < 0.012 < 0.012 Impressions: Chest X-Ray 03/28/18 12:36 IMPRESSION: NO ACUTE RADIOGRAPHIC FINDING IN THE CHEST. Abdomen/Pelvis CT 03/28/18 12:52 IMPRESSION: Spleen appears enlarged without focal splenic abnormalities being identified. No other significant intra-abdominal or pelvic abnormalities were identified. Other findings as noted above Status: Image reviewed by me Assessment & Plan - Diagnosis (1) Myeloproliferative disorder Is this a current diagnosis for this admission?: Yes Plan: Her WBC count had been in the 30's. It is now in the 40's. This may be slightly higher than her baseline, due to active infection, but overall, it appears that her blood counts have remained stable. Her HGB and PLT do not seem to have been affected thus far. I will continue to monitor for now. (2) UTI (urinary tract infection) Qualifiers: Urinary tract infection type: site unspecified Hematuria presence: without hematuria Qualified Code(s): N39.0 - Urinary tract infection, site not specified Plan: Start Rocephin. Await urine culture. (3) Headache Qualifiers: Headache type: tension-type Headache chronicity pattern: episodic headache Intractability: intractable Qualified Code(s): G44.211 - Episodic tension- type headache, intractable Plan: She has tylenol. I will add Ultram PRN. - Plan Summary Plan Summary: She is currently NPO for the stress test, and her cardiac enzymes have been negative. I will continue to follow with you. Please call me with any concerns. Her care was discussed with Annette Coleman, hospitalist
[2018-03-29] MEDS: DOCUSATE SODIUM 100 MG CAPSULE PO SCH (09:51)
[2018-03-29] MEDS: GABAPENTIN 300 MG CAPSULE PO SCH ×2 (09:51→21:45)
[2018-03-29] MEDS: FUROSEMIDE 20 MG TABLET PO SCH (09:51)
[2018-03-29] MEDS: METOPROLOL TARTRATE 50 MG TABLET PO SCH ×2 (09:52→21:50)
[2018-03-29] MEDS: CLOPIDOGREL BISULFATE 75 MG TABLET PO SCH (09:52)
[2018-03-29] MEDS: POTASSIUM CHLORIDE 10 MEQ CAPSULE.ER PO SCH (09:52)
[2018-03-29] MEDS: ASPIRIN 81 MG TABLET, ENT COATED PO SCH (09:52)
[2018-03-29] MEDS: SERTRALINE HCL 50 MG TABLET PO SCH (09:55)
[2018-03-29] MEDS: LOSARTAN POTASSIUM 50 MG TABLET PO SCH (09:56)
[2018-03-29] MEDS: ENOXAPARIN SODIUM INJ 40 MG/0.4 ML DISP.SYRIN SUBCUT SCH (09:56)
[2018-03-29] MEDS: CEFTRIAXONE SODIUM 1,000 MG in NORMAL SALINE 50 ML IV SCH (09:57)
[2018-03-29] MEDS ORDERED: CEFTRIAXONE 1 GM/D5W RTU 1 GM/50 ML RTUPB IV SCH (10:00)
[2018-03-29] MEDS ORDERED: (PENDING PHARMACY ID) (Potassium Chloride [Potassium Chloride] 10 MEQ) PO SCH (10:00)
[2018-03-29] MEDS ORDERED: (PENDING PHARMACY ID) (Sertraline Hcl [Zoloft] 25 MG) PO SCH (10:00)
[2018-03-29] MEDS ORDERED: ISOSORBIDE DINITRATE 20 MG TABLET PO SCH (10:00)
[2018-03-29] MEDS: RANOLAZINE 500 MG TAB.SR.12H PO SCH ×2 (10:45→21:45)
--- NOTE | 2018-03-29 12:19 | PDOC PROGRESS REPORT ---
Subjective Progress Note for:: 03/29/18 Subjective:: The patient is an 83-year-old female with a past medical history significant for chronic diastolic congestive heart failure, coronary artery disease and diabetes mellitus. She reports a history of a prior myocardial infarction. The patient also has a history for the past several years of a chronically elevated white blood cell count. She presented to the emergency room initially with chest discomfort that she described as a pressure in the center of her chest that does not radiate. She has been short of breath with nausea and associated diaphoresis. She states this feels similar to previous heart attack she has had in the past. Also prior to admission she had been having abdominal cramping and watery diarrhea. Her diarrhea had stopped by the time she arrived at the emergency room. She was found to have a markedly elevated white blood cell count greater than 40,000. Initial troponins were negative and EKG was unremarkable as well. She was placed in observation in the hospital and was scheduled to have a stress test performed this morning. Unfortunately the patient's stress test did not get ordered correctly and they are going to be unable to perform it today. It will be performed first thing in the morning. Patient states that she continues to have waxing and waning chest discomfort and gets quite uncomfortable with that at times. I have spoken to Dr Garcia from the oncology service. Back in October of this year the patient had a bone marrow biopsy. The results indicate that she has a myeloproliferative disorder. She never followed up with hematology as an outpatient. She was seen this morning by Dr Garcia who certainly is going to make sure that she follows up after discharge during this hospitalization. She does not think that there is anything we need to acutely do and would recommend her getting over this acute illness. I did obtain a urine yesterday and the patient does have evidence of a urinary tract infection. She has been started on IV Rocephin. Again the patient continues to complain of waxing and wheezing chest pain. She has had a little bit of a headache. She has had no chest heart palpitations. She does not have a cough. She has had no nausea or vomiting. She continues to have some mild abdominal pain in the left upper quadrant. She has not had a bowel movement today. No further diarrhea. She does report some mild dysuria. Reason For Visit: CHEST PAIN Physical Exam Vital Signs: Temp Pulse Resp BP Pulse Ox 98.6 F 97 18 151/70 H 94 03/29/18 08:17 03/29/18 08:17 03/29/18 08:17 03/29/18 08:17 03/29/18 08:17 Intake & Output 03/28/18 03/29/18 03/30/18 06:59 06:59 06:59 Intake Total 1000 50 Balance 1000 50 Weight 93.7 kg General appearance: PRESENT: no acute distress, morbidly obese, well-developed, well-nourished Head exam: PRESENT: atraumatic, normocephalic Eye exam: PRESENT: conjunctiva pink, EOMI, PERRLA. ABSENT: scleral icterus Mouth exam: PRESENT: moist, tongue midline Neck exam: ABSENT: carotid bruit, JVD, lymphadenopathy, thyromegaly Respiratory exam: PRESENT: clear to auscultation carmen. ABSENT: rales, rhonchi, wheezes Cardiovascular exam: PRESENT: RRR. ABSENT: diastolic murmur, rubs, systolic murmur GI/Abdominal exam: PRESENT: normal bowel sounds, soft. ABSENT: distended, guarding, mass, organolmegaly, rebound, tenderness Rectal exam: PRESENT: deferred Extremities exam: PRESENT: full ROM. ABSENT: calf tenderness, clubbing, pedal edema Neurological exam: PRESENT: alert, awake, oriented to person, oriented to place , oriented to time, oriented to situation, CN II-XII grossly intact. ABSENT: motor sensory deficit Psychiatric exam: PRESENT: appropriate affect, normal mood. ABSENT: homicidal ideation, suicidal ideation Skin exam: PRESENT: dry, intact, warm. ABSENT: cyanosis, rash Results Laboratory Results: 03/29/18 07:18 03/29/18 07:18 03/28/18 03/29/18 03/29/18 18:50 07:18 07:18 WBC 44.0 H* RBC 7.20 H Hgb 12.9 Hct 42.8 MCV 59 L MCH 17.9 L MCHC 30.1 L RDW 22.8 H Plt Count 298 Sodium 143.4 Potassium 4.2 Chloride 104 Carbon Dioxide 28 Anion Gap 11 BUN 11 Creatinine 0.76 Est GFR ( Amer) > 60 Est GFR (Non-Af Amer) > 60 Glucose 156 H Calcium 9.4 Phosphorus 3.1 Magnesium 1.8 Triglycerides 171 H Cholesterol 111.74 LDL Cholesterol Direct 40 VLDL Cholesterol 34.2 H HDL Cholesterol 27 L TSH Urine Color YELLOW Urine Appearance CLEAR Urine pH 5.0 Ur Specific Whick 1.012 Urine Protein NEGATIVE Urine Glucose (UA) NEGATIVE Urine Ketones NEGATIVE Urine Blood NEGATIVE Urine Nitrite NEGATIVE Ur Leukocyte Esterase MODERATE H Urine WBC (Auto) 31 Urine RBC (Auto) 2 03/29/18 07:20 WBC RBC Hgb Hct MCV MCH MCHC RDW Plt Count Sodium Potassium Chloride Carbon Dioxide Anion Gap BUN Creatinine Est GFR ( Amer) Est GFR (Non-Af Amer) Glucose Calcium Phosphorus Magnesium Triglycerides Cholesterol LDL Cholesterol Direct VLDL Cholesterol HDL Cholesterol TSH 4.62 Urine Color Urine Appearance Urine pH Ur Specific Whick Urine Protein Urine Glucose (UA) Urine Ketones Urine Blood Urine Nitrite Ur Leukocyte Esterase Urine WBC (Auto) Urine RBC (Auto) 03/28/18 03/28/18 03/29/18 19:05 19:05 01:04 Creatine Kinase < 20 L 21 L CK-MB (CK-2) 0.56 Troponin I < 0.012 03/29/18 03/29/18 03/29/18 01:04 07:18 07:18 Creatine Kinase < 20 L CK-MB (CK-2) 0.68 0.58 Troponin I < 0.012 < 0.012 Impressions: Chest X-Ray 03/28/18 12:36 IMPRESSION: NO ACUTE RADIOGRAPHIC FINDING IN THE CHEST. Abdomen/Pelvis CT 03/28/18 12:52 IMPRESSION: Spleen appears enlarged without focal splenic abnormalities being identified. No other significant intra-abdominal or pelvic abnormalities were identified. Other findings as noted above Assessment & Plan - Diagnosis (1) Chest pain Is this a current diagnosis for this admission?: Yes Plan: The patient with a reported history of an SC in the past. She has known chronic diastolic congestive heart failure. I cannot rule out a cardiac source of her chest pain. She will continue in observation in the hospital. Her serial troponins have remained negative. She is a very poor historian but states that she never had a cardiac catheterization. Cardiology has been consulted for further recommendations.. She will have a stress test reordered for in the morning. She is on appropriate medical therapy at this point. I do not believe she needs to be anticoagulated. (2) Myeloproliferative disorder Is this a current diagnosis for this admission?: Yes Plan: I appreciate the assistance of Dr. Garcia. We will need to make her an appointment to follow-up with her as an outpatient. She does not recommend any further workup or beginning any treatment in the hospital setting. (3) Chronic diastolic (congestive) heart failure Is this a current diagnosis for this admission?: Yes Plan: The patient appears to be euvolemic. She has grade 2 diastolic dysfunction on her most recent echocardiogram. Cardiology has been consulted. (4) Urinary tract infection Is this a current diagnosis for this admission?: Yes Plan: Urine is worrisome for infection. Culture is pending. She has been started on IV Rocephin. This is the first day of treatment. (5) Coronary artery disease Is this a current diagnosis for this admission?: Yes Plan: According to the patient she has never had a cardiac catheterization. She is on appropriate medical therapy which we will continue. Cardiology has been consulted. (6) Hypertension Is this a current diagnosis for this admission?: Yes Plan: Blood pressure at times is quite high. She will continue her usual home regimen and I will have IV hydralazine available as needed. (7) Diabetes mellitus Is this a current diagnosis for this admission?: Yes Plan: I will hold her home medications and she will have sliding scale insulin available here in the hospital. We will check fingerstick blood sugars before meals at bedtime (8) GERD (gastroesophageal reflux disease) Is this a current diagnosis for this admission?: Yes Plan: Continue PPI therapy here in the hospital (9) Diarrhea Is this a current diagnosis for this admission?: Yes Plan: This has resolved but she did have several days of watery diarrhea prior to coming into the hospital. CT scan of the abdomen and pelvis revealed splenomegaly but otherwise is unremarkable. No evidence of colitis (10) Full code status Is this a current diagnosis for this admission?: Yes - Time Time Spent with patient: 25-34 minutes - Inpatient Certification Based on my medical assessment, after consideration of the patient's comorbidities, presenting symptoms, or acuity I expect that the services needed warrant INPATIENT care.: Yes I certify that my determination is in accordance with my understanding of Medicare's requirements for reasonable and necessary INPATIENT services [42 CFR 412.3e].: Yes Medical Necessity: Other - I am going to leave the patient in observation in the hospital. Hopefully she can have her stress test performed tomorrow morning. She will be seen by cardiology today. Hopefully she can be discharged in the morning. She will need to follow-up with oncology as an outpatient. In the meantime I am going to give her parenteral Rocephin for her urinary tract infection.
[2018-03-29] MEDS: INSULIN LISPRO 100 UNIT/ML 3 ML VIAL SUBCUT PRN ×2 (13:11→18:21)
--- NOTE | 2018-03-29 22:06 | EKG REPORT ---
SEVERITY:- ABNORMAL ECG - SINUS RHYTHM CONSIDER ANTEROSEPTAL INFARCT : Confirmed by: Bud Medina 29-Mar-2018 22:05:22
[2018-03-30] MEDS: BUSPIRONE HCL 10 MG TABLET PO SCH ×2 (05:20→14:46)
[2018-03-30] MEDS: LANSOPRAZOLE 30 MG TAB.RAP.DR PO SCH (05:20)
[2018-03-30] MEDS: INSULIN LISPRO 100 UNIT/ML 3 ML VIAL SUBCUT PRN ×2 (08:13→16:37)
--- NOTE | 2018-03-30 09:16 | PDOC PROGRESS REPORT ---
Subjective Progress Note for:: 03/30/18 Subjective:: Patient states that she is still needing to urinate every hour. No significant change from yesterday. She is awaiting her stress test today. Reason For Visit: CHEST PAIN Physical Exam Vital Signs: Temp Pulse Resp BP Pulse Ox 98.7 F 88 16 156/61 H 95 03/30/18 07:16 03/30/18 07:16 03/30/18 07:16 03/30/18 07:16 03/30/18 07:16 Intake & Output 03/29/18 03/30/18 03/31/18 06:59 06:59 06:59 Intake Total 1000 2110 Balance 1000 2110 Weight 93.7 kg 93.8 kg General appearance: PRESENT: no acute distress, obese Respiratory exam: PRESENT: unlabored Neurological exam: PRESENT: alert, awake, oriented to person, oriented to place , oriented to time, oriented to situation Psychiatric exam: PRESENT: appropriate affect Skin exam: PRESENT: normal color Results Laboratory Results: 03/29/18 07:18 03/29/18 07:18 03/28/18 03/28/18 03/29/18 19:05 19:05 01:04 Creatine Kinase < 20 L 21 L CK-MB (CK-2) 0.56 Troponin I < 0.012 03/29/18 03/29/18 03/29/18 01:04 07:18 07:18 Creatine Kinase < 20 L CK-MB (CK-2) 0.68 0.58 Troponin I < 0.012 < 0.012 Impressions: Chest X-Ray 03/28/18 12:36 IMPRESSION: NO ACUTE RADIOGRAPHIC FINDING IN THE CHEST. Abdomen/Pelvis CT 03/28/18 12:52 IMPRESSION: Spleen appears enlarged without focal splenic abnormalities being identified. No other significant intra-abdominal or pelvic abnormalities were identified. Other findings as noted above Assessment & Plan - Diagnosis (1) Myeloproliferative disorder Is this a current diagnosis for this admission?: Yes Plan: WBC count currently stable. Will continue to monitor this. May discuss further treatment as outpatient, but this should not be started with active infection. (2) UTI (urinary tract infection) Qualifiers: Urinary tract infection type: site unspecified Hematuria presence: without hematuria Qualified Code(s): N39.0 - Urinary tract infection, site not specified Is this a current diagnosis for this admission?: Yes Plan: On antibiotics. All cultures NGTD (3) Headache Qualifiers: Headache type: tension-type Headache chronicity pattern: episodic headache Intractability: intractable Qualified Code(s): G44.211 - Episodic tension- type headache, intractable Is this a current diagnosis for this admission?: Yes - Plan Summary Plan Summary: Await stress test today. Plan to continue to follow her WBC count as outpatient. Please call me if needed. Nothing further planned during this admission from my standpoint.
--- NOTE | 2018-03-30 10:26 | CONSULTATION REPORT E ---
Consultation Report NAME: ORACIO MUIR : 1935 AGE: 82Y DATE: 03/29/2018 404 B TO: JACQUELINE BECK M.D. Patient Seen at 10 AM. FROM: Shante AVILA, Requesting Physician REASON FOR CONSULTATION: Chest pain in a patient with multiple coronary artery disease risk factors and also claims a history of TN in the past. HISTORY OF PRESENT ILLNESS: The patient is an 82-year-old female who has had multiple admissions for chest pain with negative EKG changes and negative enzymes. The patient states that the chest pain started about a day prior to the admission date. She states it is a constant chest pressure which usually lasts for several hours and comes and goes. It is not related to exertion and exertion does not bring it on, or if she has it exertion does not increase the chest pressure. She also notes a different kind of chest pain, which is soreness in the chest, reproducible with pressing on the chest, but this is different from her chest pressure. She says she has dyspnea on exertion, but she appears to be mild to moderately obese and appears to be deconditioned. She denies any palpitations or syncope or near syncope. There is no leg edema. There is no PND or orthopnea. PAST MEDICAL HISTORY: Positive for a history of congestive heart failure, supposedly diastolic heart failure, since her echocardiogram in 10/2017 showed a normal LV ejection fraction, with LV diastolic dysfunction. She claims she has had 2 myocardial infarctions in the past, but states that she has not had a stress test or a cardiac catheterization, but she claims she has coronary artery disease. She has a history of hypertension. She has a remote history of pulmonary embolism, which is in the distant past, with no recurrence. She states that she has a history of CVA in which she had confusion and headache and also had loss of consciousness and fell and sustained a scalp injury. No recent symptoms of TIA or CVA. She also has a history of diabetes mellitus type 2 and denies any chronic kidney disease. She has a history of hyperlipidemia. She also states that the white count has been elevated. She has had a bone marrow biopsy in the past, but did not follow up, and it was found to be abnormal, and the working diagnosis at present is myeloproliferative disorder. The white count, which is usually high, is much higher now. She denies any history of asthma or COPD, and no history of sleep apnea. She does have a history of GERD. She also has a history of arthritis and depression. Note: She has had multiple admissions for chest pains. She also has a history of anemia. PAST SURGICAL HISTORY: Positive for: 1. Appendectomy. 2. Cholecystectomy. 3. Hysterectomy. 4. Tonsillectomy. 5. Vascular surgery. 6. She has also had a cardiac loop recorder. 7. Bilateral cataract surgery. OTHER PAST MEDICAL HISTORY: The patient has a history of pituitary adenoma, which is small, and was followed by [facility], but stopped following with them since 2014 since it was very small and not growing, and she had no blindness, although she does complain of visual problems now. SOCIAL HISTORY: The patient does not smoke. She quit smoking a long time ago. There is no history of EtOH abuse. The patient is a FULL [employer]. Her daughter, Jaylyn Muir, is the surrogate healthcare decision maker. FAMILY HISTORY: Positive for CAD, COPD, diabetes mellitus, hyperlipidemia, hypertension, malignancy, and father with lung cancer. ALLERGIES: She is allergic to MORPHINE. She had a psychosocial evaluation in 06/2017 for depression. REVIEW OF SYSTEMS: CONSTITUTIONAL: Denies any fever, chills or rigors. She complains of generalized fatigue and weakness. HEAD: Complains of headaches, which comes and goes, but denies a history of migraines. She also has dizziness off and on, but no falls. EYES: She has blurred vision. She needs to see an marketing services coordinator, but no blindness. There is no amaurosis fugax. There is no diplopia. EARS: The patient has slightly decreased hearing, especially in the left ear. There are no recurrent ear infections. There is no tinnitus. NOSE: No history of hay fever. No history of nosebleeds. MOUTH: No altered taste sensation. No ulcers in the mouth. THROAT: No odynophagia or dysphagia. No recurrent sore throats. SKIN: No pruritus. No yellowish discoloration of the skin. No excoriations of the skin. NECK: No neck pain. No enlarged lymph nodes in the neck. LUNGS: No history of cough or sputum production. No history of asthma or COPD. No history of wheezing. No history of sleep apnea. She has a remote history of pulmonary embolism, with no recurrence. Her last CTA done last year was negative for any pulmonary emboli. She does have chest wall pain, but no pleuritic chest pain. No hemoptysis. There are no symptoms suggestive of upper or lower respiratory tract infection. CARDIAC: History of hypertension present. The patient states she has a history of congestive heart failure, most likely LV diastolic heart failure, none at present. She has no PND, orthopnea, or leg edema. She claims to have had 2 myocardial infarctions in the past and claims that she has coronary artery disease, but she has not had a cardiac catheterization or even a stress test. She has a past history of palpitations and had an event loop recorder placed, which was negative. There are no recent symptoms of congestive heart failure. No PND or orthopnea recently. No recent palpitations. No syncope. No leg edema. No history of cardiac arrhythmia. She claims a history of rheumatic fever and rheumatic heart disease, but there is no evidence of this on the echo. GASTROINTESTINAL: History of GERD present. No history of peptic ulcer disease. No history of fatty food intolerance. No history of jaundice. No abdominal pain. She had some diarrhea, watery, a few days prior to admission, which is now resolved. No GI bleed. No hematochezia, hematemesis, or melena. ENDOCRINE: History of diabetes mellitus type 2, insulin-dependent. She also has diabetic neuropathy and is on Neurontin for that. She has no history of thyroid disease. MUSCULOSKELETAL: History of arthritis, but no history of collagen vascular disease. RENAL: No history of chronic kidney disease. No history of recurrent urinary tract infections. No symptoms of hematuria, pyuria, or dysuria. CENTRAL NERVOUS SYSTEM: Prior history of CVA/TIA x2. No recent recurrence. History of headaches present, but no definite diagnosis of migraines. No history of seizures. No history of gait imbalance. PSYCHIATRIC: History of depression present. No history of anxiety. No history of suicidal ideation. No history of homicidal ideation. VASCULAR: No history of calf or buttock claudication. No history of DVT, although in the past she has had a pulmonary embolism in the remote past. HEMATOLOGICAL: History of elevated white count, suspected to have myeloproliferative disorder. Did not follow up with the oncologist. No bleeding diathesis. No history of clotting disorders. MEDICATIONS: 1. Tylenol 650 mg p.o. q. 4 hours p.r.n. 2. Aspirin 324 mg p.o. x1 and 81 mg p.o. daily. 3. BuSpar 10 mg p.o. q. 8 hours. 4. Ceftriaxone 1 g IV daily. 5. Plavix 75 mg p.o. daily. 6. Glucose 40% gel 15 g p.o. and 30 g p.o. p.r.n. respectively hypoglycemia. 7. Dextrose 50% 12.5 g IV and 25 g IV p.r.n. hypoglycemia. 8. Colace 100 mg p.o. daily. 9. Lovenox 40 mg subcutaneously daily. 10. Lasix 20 mg p.o. q.a.m. 11. Neurontin 300 mg p.o. q. 12 hours. 12. Glucagon 1 mg IM p.r.n. hypoglycemia. 13. Hydralazine 10 mg IV q. 4 hours p.r.n. 14. Accu-Cheks AC TID and nightly with sliding scale insulin coverage. 15. Isosorbide dinitrate 30 mg p.o. daily. 16. Normal saline 1000 mL bolus in the ER. 17. Losartan 50 mg p.o. daily. 18. Prevacid 30 mg p.o. q AM. 19. Metoprolol tartrate 50 mg p.o. q. 12 hours. 20. She did receive 1 g of nitroglycerin ointment topically x1. 21. Nitroglycerin 1 tablet sublingually q. 5 minutes p.r.n. 22. Ranexa 500 mg x1 and 500 mg p.o. q. 12 hours. 23. Zoloft 25 mg p.o. daily. 24. Restoril 7.5 mg p.o. nightly p.r.n. 25. Tramadol 50 mg p.o. q. 6 hours p.r.n. PHYSICAL EXAMINATION: GENERAL: The patient is moderately obese, in no acute distress. She is well groomed. VITAL SIGNS: She is afebrile with a temperature of 98.6 degrees Fahrenheit. Pulse is 97 beats per minute. Blood pressure is 115/78. Respirations are 18 per minute. O2 sats are 94% on room air. HEENT: Head is atraumatic, normocephalic. Eyes: Pupils are equal, round, regular, reactive to light and accommodation. Extraocular movements are normal. There is no conjunctival pallor. There is no scleral icterus. Ears: Tympanic membranes are intact. External auditory canals are clear. Nose: There is no deviated nasal septum. There is no inflammation of the nasal mucous membranes. Mouth: Mucous membranes of the mouth are moist. Tongue is moist. There are no ulcers. There is no bleeding from the gums. Throat: There is no redness of the oropharynx. There are no exudates. SKIN: There are no skin rashes. There are no skin lesions. There is no petechia or ecchymosis. There are no skin eruptions. NECK: Supple. There is no JVD. Carotids are equal. There is no bruit. There is no lymphadenopathy. There is no goiter. Trachea is central. LUNGS: Clear to auscultation and percussion. There is no chest wall tenderness at present. HEART: S1 and S2 are heard. There is no S3 gallop. There is no S4 gallop. There is a systolic murmur in the left sternal border on the apex. There is no rub. ABDOMEN: Soft, obese, nontender. There is no hepatosplenomegaly. Bowel sounds are well heard. There are no tender areas or masses. EXTREMITIES: Femorals are deep. Femorals are diminished. There are no femoral bruits. Leg pulses are diminished. There is no pedal edema. There is no cyanosis or clubbing. There is no DVT or cellulitis. There is no calf tenderness. CENTRAL NERVOUS SYSTEM: The patient is conscious, awake, alert, oriented x3, with no focal deficit. PSYCHIATRIC: The patient's judgment and insight are intact. Her affect is normal. DIAGNOSTIC STUDIES: The patient's EKG done on 03/28 shows sinus rhythm, concentric left ventricular hypertrophy. The patient's EKG done today shows sinus rhythm, with poor R-wave progression, consider old anterior TN versus lead placement. The patient's abdomen and pelvis CT shows SPLEEN is enlarged, rule out focal splenic abnormalit. No other significant intraabdominal or pelvic abnormalities were noted. Chest x-ray shows no acute radiographic findings. LABORATORY DATA: The patient's white count is 44,000. Her hemoglobin is 12.9. Hematocrit is 42.8. Platelet count is 298,000. The patient's sodium is 143.24, potassium 4.2, chloride 104, CO2 is 28. The patient's BUN is 11 creatinine 0.76. GFR is greater than 60. Glucose is 156. Her calcium is 9.4, phosphorus 3.1, magnesium is 1.8. Her troponin I's are negative x4. Her albumin is 3.5, total protein 7.2. The patient's alk phos has increased to 197. Her liver function tests are normal. Her CPK is normal. The patient's lipase is 114. The patient's triglycerides are 171. The patient's LDL is 40. Her HDL is low at 37. TSH was 4.62. The patient's D-dimer is 2.01. IMPRESSION: 1. Chest pain, appears to be atypical, but the patient does have multiple risk factors for coronary artery disease. The patient has not had a stress test and hence, would recommend it. Note that the patient does not need an echocardiogram since the patient's echo that was done in 11/13 showed normal left ventricular systolic function, with LV diastolic dysfunction. 2. History of TN, ? coronary artery disease. We need more details about this. 3. Myeloproliferative disorder, being followed by oncologist/medical dermatologist. 4. Chronic diastolic heart failure. At present, seems to be compensated without any evidence of heart failure. 5. Hypertension. At present, blood pressure is slightly on the upper side. 6. Diabetes mellitus type 2, insulin-dependent. 7. GERD. 8. Depression. 9. Diabetic neuropathy. 10. Dyslipidemia. RECOMMENDATIONS: 1. Continue current medications, including aspirin and statin. 2. Would recommend getting the patient IV Lexiscan Cardiolite stress test in the a.m. This has been scheduled. 3. Also, would continue patient's beta blockers. 4. Would stop the patient's isosorbide dinitrate and change it to isosorbide mononitrate if there is evidence of ischemia or scar/TN or any other evidence of coronary artery disease by stress testing. NOTE: The patient was seen at 8:30 this morning. A total of 60 minutes spent on the patient, more than 50% of the time spent in direct patient care. Her old records were reviewed. Her medications have been reviewed and medication adjustments have been made. Medical decision-making is of high complexity in view of the multiple admissions for the patient's chest pain and history of recurrent admissions for chest pain and really no definitive diagnosis to cause the chest pain has been established. If stress test is negative, we will get a barium swallow with esophageal follow through if Cardiolite stress test is negative. Discussed with the patient. The patient is advised to follow up with me as an outpatient. I gave her my office card. Note: Of the 60 minutes spent, more than 50% of the time spent in direct patient care. Will follow. I did discuss with the hospitalist. DICTATING PHYSICIAN: JACQUELINE BECK M.D. [id number] PHY#: [id number] ID: [id number] JOB#: [id number] ACCT: [id number] cc:JACQUELINE BECK M.D. > MTDD
[2018-03-30] MEDS: ASPIRIN 81 MG TABLET, ENT COATED PO SCH (10:57)
[2018-03-30] MEDS: POTASSIUM CHLORIDE 10 MEQ CAPSULE.ER PO SCH (10:57)
[2018-03-30] MEDS: SERTRALINE HCL 50 MG TABLET PO SCH (10:57)
[2018-03-30] MEDS: ENOXAPARIN SODIUM INJ 40 MG/0.4 ML DISP.SYRIN SUBCUT SCH (10:59)
[2018-03-30] MEDS: CLOPIDOGREL BISULFATE 75 MG TABLET PO SCH (10:59)
[2018-03-30] MEDS: DOCUSATE SODIUM 100 MG CAPSULE PO SCH (10:59)
[2018-03-30] MEDS: METOPROLOL TARTRATE 50 MG TABLET PO SCH (10:59)
[2018-03-30] MEDS: LOSARTAN POTASSIUM 50 MG TABLET PO SCH (10:59)
[2018-03-30] MEDS: GABAPENTIN 300 MG CAPSULE PO SCH (10:59)
[2018-03-30] MEDS: RANOLAZINE 500 MG TAB.SR.12H PO SCH (10:59)
[2018-03-30] MEDS: FUROSEMIDE 20 MG TABLET PO SCH (11:59)
[2018-03-30] MEDS: CEFTRIAXONE SODIUM 1,000 MG in NORMAL SALINE 50 ML IV SCH (12:00)
[2018-03-30] MEDS ORDERED: REGADENOSON INJ 0.4 MG/5 ML DISP.SYRIN IV ONE (12:33)
[2018-03-30] MEDS ORDERED: ONDANSETRON HCL INJ/PF 4 MG/2 ML SDV IV PRN (15:23)
--- NOTE | 2018-03-30 16:23 | PDOC DISCHARGE SUMMARY ---
General - Admit/Disc Date/PCP Admission Date/Primary Care Provider: 03/28/18 15:25 SOFI GUERRIER MD Discharge Date: 03/30/18 - Discharge Diagnosis (2) Diabetes mellitus Is this a current diagnosis for this admission?: Yes (3) Myeloproliferative disorder Is this a current diagnosis for this admission?: Yes - Additional Information Resuscitation Status: Full Code Discharge Diet: Cardiac, Diabetic Discharge Activity: Activity As Tolerated Home Medications: Aspirin [Aspirin EC] 81 mg PO DAILY 03/28/18 Buspirone HCl [Buspar 15 mg Tablet] 15 mg PO Q12 03/28/18 Clopidogrel Bisulfate [Plavix 75 mg Tablet] 75 mg PO DAILY 03/28/18 Gabapentin [Neurontin 300 mg Capsule] 300 mg PO Q12 03/28/18 Glimepiride [Amaryl] 2 mg PO Q12 03/28/18 Insulin Aspart Protam & Aspart [Novolog Mix 70-30 Vial] 65 unit SQ Q12 03/28/18 Losartan Potassium [Cozaar 50 mg Tablet] 50 mg PO DAILY 03/28/18 Pantoprazole Sodium [Protonix] 40 mg PO DAILY 03/28/18 Sertraline HCl [Zoloft] 25 mg PO DAILY 03/28/18 Sitagliptin Phosphate [Januvia 50 mg Tablet] 100 mg PO DAILY 03/28/18 History of Present Illness History of Present Illness: ORACIO PEDROZA is a 82 year old female 82 years old white female with diabetes and myeloproliferative disorder presents to the emergency room due to chest pressure nausea and shortness of breath Hospital Course Hospital Course: Patient was admitted for observation she received consultation from cardiology and oncology. She had a stress test that was negative. She is hemodynamically stable and asymptomatic and she is cleared for discharge. She should follow-up regarding treatment for her myeloproliferative disorder outpatient. Physical Exam Vital Signs: Temp Pulse Resp BP Pulse Ox 98.7 F 88 16 156/61 H 95 03/30/18 07:16 03/30/18 07:16 03/30/18 07:16 03/30/18 07:16 03/30/18 07:16 Intake & Output 03/29/18 03/30/18 03/31/18 06:59 06:59 06:59 Intake Total 1000 2110 50 Balance 1000 2110 50 Weight 206 lb 9.17 oz 206 lb 12.697 oz Additional comments: Patient no acute distress Alert oriented to time place person No anxiety or depression Head atraumatic normocephalic Pupils are equal reactive Regular rate and rhythm Lungs clear no distress Abdomen nontender nondistended Neurological exam unremarkable Results Laboratory Results: 03/29/18 07:18 03/29/18 07:18 03/28/18 18:50 Clean Catch Midstream Urine Culture - Final Lactobacillus (Vaginal Neelam) 03/28/18 03/28/18 03/29/18 19:05 19:05 01:04 Creatine Kinase < 20 L 21 L CK-MB (CK-2) 0.56 Troponin I < 0.012 03/29/18 03/29/18 03/29/18 01:04 07:18 07:18 Creatine Kinase < 20 L CK-MB (CK-2) 0.68 0.58 Troponin I < 0.012 < 0.012 Impressions: Chest X-Ray 03/28/18 12:36 IMPRESSION: NO ACUTE RADIOGRAPHIC FINDING IN THE CHEST. Abdomen/Pelvis CT 03/28/18 12:52 IMPRESSION: Spleen appears enlarged without focal splenic abnormalities being identified. No other significant intra-abdominal or pelvic abnormalities were identified. Other findings as noted above Qualifiers - * PATIENT BEING DISCHARGED WITH ANY OF THE FOLLOWING DIAGNOSIS: No
[2018-03-30 18:16] VITALS: BP 131/59
--- NOTE | 2018-03-31 10:26 | PROGRESS NOTE E ---
Progress Note NAME: ORACIO PEDROZA : 1935 AGE: 82Y DATE: 03/30/2018 ROOM: 404 SUBJECTIVE: The patient denies any further chest pain or discomfort. There is no shortness of breath. There is no PND, orthopnea, leg edema, or palpitations. She remains in sinus rhythm. The patient had an uneventful IV Lexiscan Cardiolite stress test earlier today. PHYSICAL EXAMINATION: GENERAL: The patient is moderately obese but well groomed, in no acute distress. VITAL SIGNS: She is afebrile with a temperature of 98.4 degrees Fahrenheit. Pulse is 96 beats per minute. Blood pressure is slightly elevated at 177/87. Respirations are 16 per minute. O2 sats are 93% on room air. HEENT: Head is atraumatic and normocephalic. Eyes - Pupils are equal, round, regular, reactive to light and accommodation. Extraocular movements are normal. There is no conjunctival pallor. There is no scleral icterus. ENT is negative. NECK: Supple. There is no JVD. Carotids are equal. There is no bruit. There is no lymphadenopathy. There is no goiter. Trachea is central. LUNGS: Clear to auscultation and percussion. There is no rhonchi, rales, or wheezing. There is no chest wall tenderness. HEART: S1, S2 is heard. There is no S3 gallop. There is no S4 gallop. There is a systolic murmur at the left sternal border and the apex. There is no rub. ABDOMEN: Soft, nontender. There is no hepatosplenomegaly. Bowel sounds are well heard. There are no tender areas or masses. EXTREMITIES: Femorals are deep, femorals are diminished. There are no femoral bruits. Leg pulses are diminished. There is no pedal edema. There is no cyanosis or clubbing. There is no DVT or cellulitis. There is no calf tenderness. CENTRAL NERVOUS SYSTEM: The patient is conscious, awake, alert, oriented x3, with no focal deficits. PSYCHIATRIC: The patient's judgement and insight are intact. Her affect is normal. DIAGNOSTICS: The patient's IV Lexiscan Cardiolite stress test did not show any reversible ischemia and there was no NV or scar. The patient's blood sugar is 174. IMPRESSION: 1. CHEST PAIN, ATYPICAL, BUT NEGATIVE STRESS TEST; HENCE NONCARDIAC. This has been discussed with the patient. 2. HISTORY OF NV, QUESTION OF CORONARY ARTERY DISEASE. No evidence of NV by stress testing. 3. MYELOPROLIFERATIVE DISORDER. Being followed by Hematology/Oncology. 4. CHRONIC DIASTOLIC HEART FAILURE, AT PRESENT COMPENSATED. 5. HYPERTENSION. Blood pressure is slightly elevated, but this may be because of the patient's blood pressure medicine being held for the stress test. We will recheck again. Repeat check of blood pressure was 140/67; hence, fairly well controlled. 6. DIABETES MELLITUS, TYPE 2, INSULIN DEPENDENT. 7. GERD. 8. DIABETES. 9. DIABETIC NEUROPATHY. 10. DYSLIPIDEMIA. RECOMMENDATIONS: Would recommend continuing current medications, including aspirin. Note, medications have been reviewed. Cardiac status is stable, and stress test has been discussed with the patient. Medical decision making is of moderate complexity. I will sign off the case and follow the patient as an outpatient since the patient was advised to follow up with me. Discussed with the hospitalist taking care of the patient. Note, 40 minutes was spent on this patient, more than 50% of the time spent in direct patient care. DICTATING PHYSICIAN: JACQUELINE BECK M.D. [id number] PHY#: [id number] ID: [id number] JOB#: [id number] ACCT: [id number] cc: >
--- NOTE | 2018-04-04 23:45 | DRAGON STRESS TEST REPORT ---
Intravenous Lexiscan Cardiolite stress test using single photon emmision computerized tomography. Date of procedure: 03/30/2018. Ordering Provider: Ms. Annette BAUM. Patient's status: In Patient. Indication: Chest pain. Coronary risk factors: Age, diabetes mellitus, and hypertension. Resting EKG: Sinus Rhythm. Cannot exclude old anterior myocardial infarction versus lead placement. Stress EKG: No changes of ischemia. The patient had no chest pain or discomfort, and there were no arrhythmias seen. Reason for termination: Protocol. Conclusions: Normal EKG and hemodynamic response to IV Lexiscan. Nuclear data: At rest the patient was given 14.60 millicuries of technetium 99m sestamibi injected intravenously. As per protocol rest non gated SPECT images were obtained. Subsequently the patient was given intravenous Lexiscan at a dose of 0.4 mg in 5 mL intravenously, followed by flush with normal saline. Subsequently the stress dose of 42.0 millicuries of technetium 99m sestamibi was injected intravenously. As per protocol stress gated images were obtained. Nuclear interpretation: Review of images showed that all segments of the myocardium had normal perfusion at rest, and normal perfusion post stress with IV Lexiscan. All segments of the myocardium had normal motion, contraction, and thickening by gated study. T. I D. ratio was normal at 1.17. Computer read rest, and stress left ventricular ejection fraction were 59 %, and 59 %, respectively. Conclusion: 1. There is no scintigraphic evidence of Lexiscan induced myocardial ischemia. 2. There is no scintigraphic evidence of myocardial infarction/scar. Recommendations: Aggressive risk factor modification, and treating the underlying co- morbidities. MTDD
== END 2018-03-30 18:42 | disposition home or self-care (01) ==
LOC: ER 12:32 → EH 15:25 → 4N 18:00
PROVIDERS: ADMIT Internal Medicine; ATTEND Internal Medicine
DX: R07.89 Other chest pain (principal); C94.6 Myelodysplastic disease, not elsewhere classified; R11.0 Nausea; R06.02 Shortness of breath; E66.01 Morbid (severe) obesity due to excess calories; E11.40 Type 2 diabetes mellitus with diabetic neuropathy, unspecified; I50.32 Chronic diastolic (congestive) heart failure; I11.0 Hypertensive heart disease with heart failure; K21.9 Gastro-esophageal reflux disease without esophagitis; F32.9 Major depressive disorder, single episode, unspecified; E78.5 Hyperlipidemia, unspecified; R10.12 Left upper quadrant pain; R19.7 Diarrhea, unspecified; G44.211 Episodic tension-type headache, intractable; I25.10 Atherosclerotic heart disease of native coronary artery without angina pectoris; R16.1 Splenomegaly, not elsewhere classified; N39.0 Urinary tract infection, site not specified; I25.2 Old myocardial infarction; Z68.34 Body mass index [BMI] 34.0-34.9, adult; Z79.82 Long term (current) use of aspirin; Z79.899 Other long term (current) drug therapy; Z86.711 Personal history of pulmonary embolism; Z86.73 Personal history of transient ischemic attack (TIA), and cerebral infarction without residual deficits; Z90.49 Acquired absence of other specified parts of digestive tract; Z98.890 Other specified postprocedural states; Z82.49 Family history of ischemic heart disease and other diseases of the circulatory system; Z80.1 Family history of malignant neoplasm of trachea, bronchus and lung; Z79.4 Long term (current) use of insulin; Z80.6 Family history of leukemia; Z85.828 Personal history of other malignant neoplasm of skin; Z86.14 Personal history of Methicillin resistant Staphylococcus aureus infection
CPT/HCPCS: 93005 ×2; 99285; 96360; 96361; 36415 ×2; 87086; 82553 ×2; 82962 ×3; 82550 ×2; 83690; 83735; 84100; 84443; 85025; 85027; 80048; 80053; 81001; 84484 ×2; 83036; 85379; 80061; 93017; 71045; 78452; 74176; 93010 ×2; 97110; 97116; 97163; G0378 ×3; A9500; J2785; A9270 ×33; J0360; J1650 ×2; J0696 ×2; J3490 ×2; J2405; J7030; Q9969; G8978; G8979; J1815

== ENCOUNTER 2018-06-11 13:02 | Observation (INO) | payer MEDICARE, OTHER ==
[2018-06-11] MEDS ORDERED: ASPIRIN 81 MG TABLET, CHEWABLE PO ONE (13:04)
--- NOTE | 2018-06-11 13:20 | ER Document Report ---
ED Cardiac - General Chief Complaint: Chest Pain Stated Complaint: CHEST PAIN Time Seen by Provider: 06/11/18 13:20 Mode of Arrival: Stretcher Information source: Patient, Emergency Med Personnel TRAVEL OUTSIDE OF THE [place] IN LAST 30 DAYS: No - HPI Patient complains to provider of: Chest pain Was the onset of pain: Unknown Is the pain a: Chronic problem Chest pain location: Substernal Quality of pain: Constant Severity now: Moderate Severity at worst: Moderate Pain level currently: 3 Chest pain precipitating factors: At Rest Cardiac risk factors: Hypertension Associated symptoms: None Exacerbated by: Denies Relieved by: Nothing Similar symptoms previously: Yes Recently seen / treated by doctor: No - Related Data Allergies/Adverse Reactions: morphine Allergy (Verified 05/05/18 10:36) Past Medical History - Social History Smoking Status: Unknown if Ever Smoked Family History: CAD, COPD, DM, Hyperlipidemia, Hypertension, Malignancy - Father with lung cancer. Cousin with leukemia. 3 brothers with unknown cancers. Mother also of unknown type of cancer., Other - Past Medical History Cardiac Medical History: Reports: Hx Congestive Heart Failure - Diastolic, Hx Coronary Artery Disease, Hx Heart Attack - x2, Hx Hypercholesterolemia, Hx Hypertension, Hx Pulmonary Embolism - Distant history Endocrine Medical History: Reports: Hx Diabetes Mellitus Type 2 Renal/ Medical History: Denies: Hx Peritoneal Dialysis Malignancy Medical History: Reports: Hx Skin Cancer - Excised from her nose. GI Medical History: Reports: Hx Gastroesophageal Reflux Disease Musculoskeletal Medical History: Reports Hx Arthritis, Reports Hx Musculoskeletal Deformity Psychiatric Medical History: Reports: Hx Anxiety, Hx Depression Infectious Medical History: Reports: Hx MRSA - Quite distant history Past Surgical History: Reports: Hx Abdominal Surgery, Hx Appendectomy, Hx Cholecystectomy, Hx Hysterectomy, Hx Tonsillectomy, Hx Vascular Surgery, Other - Cardiac loop recorder, bilateral cataract surgery - Immunizations Hx Diphtheria, Pertussis, Tetanus Vaccination: No Hx Pneumococcal Vaccination: 04/29/13 Review of Systems - Review of Systems Constitutional: denies: Chills, Fever EENT: No symptoms reported Cardiovascular: Chest pain. denies: Dyspnea Respiratory: No symptoms reported Gastrointestinal: No symptoms reported Genitourinary: Burning, Dysuria, Frequency Female Genitourinary: No symptoms reported Musculoskeletal: No symptoms reported Skin: No symptoms reported Hematologic/Lymphatic: No symptoms reported Neurological/Psychological: No symptoms reported -: Yes All other systems reviewed and negative Physical Exam - Vital signs Vitals: Resp Pulse Ox 18 96 06/11/18 13:13 06/11/18 13:13 - General General appearance: Appears well, Alert In distress: None - HEENT Head: Normocephalic, Atraumatic Eyes: Normal Pupils: PERRL - Respiratory Respiratory status: No respiratory distress Chest status: Nontender Breath sounds: Normal Chest palpation: Normal - Cardiovascular Rhythm: Regular Heart sounds: Normal auscultation Murmur: No - Abdominal Inspection: Normal Distension: No distension Bowel sounds: Normal Tenderness: Nontender Organomegaly: No organomegaly - Back Back: Normal, Nontender - Extremities General upper extremity: Normal inspection, Nontender, Normal color, Normal ROM , Normal temperature General lower extremity: Normal inspection, Nontender, Normal color, Normal ROM , Normal temperature, Normal weight bearing. No: Cynthia's sign - Neurological Neuro grossly intact: Yes Cognition: Normal Orientation: AAOx4 [place] Coma Scale Eye Opening: Spontaneous [place] Coma Scale Verbal: Oriented [place] Coma Scale Motor: Obeys Commands [place] Coma Scale Total: 15 Speech: Normal Motor strength normal: LUE, RUE, LLE, RLE Sensory: Normal - Psychological Associated symptoms: Normal affect, Normal mood - Skin Skin Temperature: Warm Skin Moisture: Dry Skin Color: Normal Course - Vital Signs Vital signs: Temp Pulse Resp BP Pulse Ox 98.4 F 19 134/72 H 95 06/11/18 14:00 06/11/18 14:01 06/11/18 14:00 06/11/18 14:01 - Laboratory Result Diagrams: 06/11/18 14:06 06/11/18 14:06 Laboratory results interpreted by me: 06/11/18 06/11/18 06/11/18 14:06 14:06 15:11 WBC 52.7 H* RBC 6.78 H MCV 61 L MCH 18.3 L MCHC 30.2 L RDW 25.2 H Plt Count 467 H Seg Neuts % (Manual) 91 H Lymphocytes % (Manual) 2 L Abs Neuts (Manual) 50.1 H Abs Monocytes (Manual) 1.6 H BUN 24 H Est GFR ( Amer) 59 L Est GFR (Non-Af Amer) 49 L Glucose 335 H Lactic Acid 2.2 H Alkaline Phosphatase 229 H Creatine Kinase < 20 L Total Protein 8.4 H - Diagnostic Test Radiology reviewed: Image reviewed, Reports reviewed - EKG Interpretation by Me EKG shows normal: Sinus rhythm Rate: Normal - 87 Rhythm: NSR When compared to previous EKG there are: Previous EKG unavailable Additional EKG results interpreted by me: 06/11/18 13:54 No STEMI. - Transfer of Care Notes: 06/11/18 16:42 I consulted the hospitalist alternative education teacher Dr Neal. She will admit patient for further management. Dr Neal is aware that the patient Urinalysis result is pending and she will follow up on the result. Discharge - Discharge Clinical Impression: CAD (coronary artery disease) Qualifiers: Coronary Disease-Associated Artery/Lesion type: unspecified vessel or lesion type [place] vs. transplanted heart: [place] heart Associated angina: with unspecified angina Qualified Code(s): I25.119 - Atherosclerotic heart disease of [place] coronary artery with unspecified angina pectoris Chest pain Qualifiers: Chest pain type: unspecified Qualified Code(s): R07.9 - Chest pain, unspecified Condition: Stable Disposition: ADMITTED INPATIENT Admitting Provider: Dr Maritza Neal. Unit Admitted: Telemetry
--- NOTE | 2018-06-11 14:27 | RADIOLOGY REPORT (SQ) ---
EXAM DESCRIPTION: CHEST SINGLE VIEW COMPLETED DATE/TIME: 06/11/2018 1:54 pm REASON FOR STUDY: cp COMPARISON: 05/10/2018 TECHNIQUE: Single frontal radiographic view of the chest acquired. NUMBER OF VIEWS: One view. LIMITATIONS: None. FINDINGS: LUNGS AND PLEURA: No pneumothorax. No consolidation or pleural effusion. MEDIASTINUM AND HILAR STRUCTURES: Stable. HEART AND VASCULAR STRUCTURES: Stable. BONES: No acute findings. HARDWARE: None in the chest. OTHER: No other significant finding. IMPRESSION: NO ACUTE FINDINGS. TECHNICAL DOCUMENTATION: JOB ID: [id number] [id number] 2010 [employer]- All Rights Reserved Reading location - IP/workstation name: [email or web address]
[2018-06-11 14:38] LABS: HEMATOCRIT 41.2 % (36.0-47.0); HEMOGLOBIN 12.4 g/dL (12.0-15.5); MEAN CORPUSCULAR HEMOGLOBIN 18.3 pg (27.0-33.4); MEAN CORPUSCULAR HGB CONC 30.2 g/dL (32.0-36.0); MEAN CORPUSCULAR VOLUME 61 fl (80-97); PLATELET COUNT 467 10^3/uL (150-450); RED BLOOD COUNT 6.78 10^6/uL (3.72-5.28); RED CELL DISTRIBUTION WIDTH 25.2 % (11.5-14.0)
[2018-06-11 14:51] LABS: ALANINE AMINOTRANSFERASE 17 U/L (9-52); ALBUMIN 4.1 g/dL (3.5-5.0); ALKALINE PHOSPHATASE 229 U/L (38-126); ANION GAP 10 (5-19); ASPARTATE AMINO TRANSFERASE 25 U/L (14-36); BILIRUBIN,DIRECT 0.4 mg/dL (0.0-0.4); BLOOD UREA NITROGEN 24 mg/dL (7-20); CALCIUM 9.9 mg/dL (8.4-10.2); CARBON DIOXIDE 29 mmol/L (22-30); CHLORIDE 100 mmol/L (98-107); GLUCOSE 335 mg/dL (75-110); SODIUM 139.4 mmol/L (137-145); TOTAL PROTEIN 8.4 g/dL (6.3-8.2)
[2018-06-11 14:52] LABS: CREATINE KINASE < 20 U/L (30-135)
[2018-06-11 15:02] LABS: CREATINE KINASE MB 0.59 ng/mL (<4.55)
[2018-06-11 15:03] LABS: ABSOLUTE LYMPHOCYTES# (MANUAL) 1.1 10^3/uL (0.5-4.7); ABSOLUTE MONOCYTES # (MANUAL) 1.6 10^3/uL (0.1-1.4); ABSOLUTE NEUTROPHILS# (MANUAL) 50.1 10^3/uL (1.7-8.2); BAND NEUTROPHILS % (MANUAL) 4 % (3-5); BASOPHILS % (MANUAL) 0 % (0-2); EOSINOPHILS % (MANUAL) 0 % (0-6); LYMPHOCYTES % (MANUAL) 2 % (13-45); MONOCYTES % (MANUAL) 3 % (3-13); SEGMENTED NEUTROPHILS % (MAN) 91 % (42-78); TOTAL CELLS COUNTED 100
[2018-06-11 15:04] LABS: TROPONIN I < 0.012 ng/mL
[2018-06-11 15:05] LABS: ANISOCYTOSIS 3+; HYPOCHROMASIA 2+; OVALOCYTES 1+; PLATELET COMMENT INCREASED; PLATELET GIANT PRESENT; POIKILOCYTOSIS 1+; POLYCHROMASIA SLIGHT; TOXIC VACUOLATION PRESENT
[2018-06-11 15:08] LABS: WHITE BLOOD COUNT 52.7 10^3/uL (4.0-10.5)
[2018-06-11] MEDS ORDERED: NORMAL SALINE 1000 ML 1,000 ML IV ONE (15:09)
[2018-06-11 16:57] LABS: APPEARANCE,URINE TURBID; BILIRUBIN,URINE NEGATIVE (NEGATIVE); COLOR,URINE YELLOW; GLUCOSE, URINE NEGATIVE (NEGATIVE); KETONES,URINE NEGATIVE (NEGATIVE); LEUKOCYTE ESTERASE,URINE LARGE (NEGATIVE); NITRITE,URINE NEGATIVE (NEGATIVE); PROTEIN,URINE 30 mg/dL (NEGATIVE); URINE SPECIFIC GRAVITY 1.008; UROBILINOGEN,URINE NEGATIVE mg/dL (<2.0)
[2018-06-11] MEDS ORDERED: DEXTROSE 40% GEL 15 GM TUBE PO PRN ×2 (17:26)
[2018-06-11] MEDS ORDERED: GLUCAGON,HUMAN RECOMB 1 MG INJ IM PRN (17:26)
[2018-06-11] MEDS ORDERED: DEXTROSE 50%-WATER 25 GM/50 ML DISP.SYRIN IV PRN ×2 (17:26)
[2018-06-11] MEDS ORDERED: NITROGLYCERIN 0.4 MG/TAB 25 TAB/BOTTLE SL PRN (17:58)
--- NOTE | 2018-06-11 18:03 | PDOC H&P ---
History of Present Illness Admission Date/PCP: 06/11/18 16:09 SOFI GUERRIER MD Patient complains of: Chest discomfort, burning on urination History of Present Illness: ORACIO PEDROZA is a 83 year old woman who has known coronary disease, 2 MIs and is followed by Dr. Medina. She has chronic difficult to control angina. She was in her normal state of health until this morning when she was lying in bed she started to develop chest tightness that she says reminded her of the pain she had when she had her other heart attacks. She got up and had a bowl of cereal because she was feeling chilled she went back to bed. She then developed some nausea and some left neck pain. He was brought to the ER for evaluation of chest pain. She also reports that she has been having burning on urination worsening for the past 2 or 3 days. She is admitted to the hospitalist for further evaluation and for treatment. Of note she has an elevated lactic acid level 2.2 in the ER. Otherwise vitals are stable. 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 Past Medical History Cardiac Medical History: Reports: Congestive Heart Failure - Diastolic, Coronary Artery Disease, Myocardial Infarction - x2, Hyperlipidema, Hypertension , Pulmonary Embolism - Distant history EENT Medical History: Reports: None Neurological Medical History: Denies: Seizures Endocrine Medical History: Reports: Diabetes Mellitus Type 2 Renal/ Medical History: Denies: Chronic Kidney Disease Malignancy Medical History: Reports: Skin Cancer - Excised from her nose. 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 Past Surgical History Past Surgical History: Reports: Appendectomy, Cholecystectomy, Hysterectomy, Tonsillectomy, Vascular Surgery, Other - Cardiac loop recorder, bilateral cataract surgery Social History Information Source: Patient 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 She has a son who lives in [place]. - Advance Directive Resuscitation Status: Do Not Resuscitate Surrogate healthcare decision maker:: Her daughter is her healthcare surrogate. Her name is Leigh Pedroza [id number]. Family History Family History: CAD, COPD, DM, Hyperlipidemia, Hypertension, Malignancy - Father with lung cancer. Cousin with leukemia. 3 brothers with unknown cancers. Mother also of unknown type of cancer., Other Parental Family History Reviewed: Yes Children Family History Reviewed: Yes Sibling(s) Family History Reviewed.: Yes Medication/Allergy Home Medications: Amoxicillin/Potassium Clav [Augmentin 500-125 Tablet] 1 each PO Q8 #6 tablet Aspirin [Aspirin EC] 81 mg PO DAILY 05/18/18 Buspirone HCl [Buspar 15 mg Tablet] 15 mg PO BID 05/18/18 Clopidogrel Bisulfate [Plavix 75 mg Tablet] 75 mg PO DAILY 05/18/18 Docusate Sodium [Colace 100 mg Capsule] 100 mg PO DAILY #30 capsule 05/18/18 Furosemide [Lasix 40 mg Tablet] 40 mg PO DAILY #30 tablet 05/18/18 Gabapentin [Neurontin 300 mg Capsule] 300 mg PO Q12 05/18/18 Glimepiride [Amaryl] 2 mg PO BID 05/18/18 Insulin Aspart Protam & Aspart [Novolog Mix 70-30 Vial] 60 unit SQ Q12 05/18/18 Isosorbide Dinitrate [Isordil Titradose 20 mg Tablet] 30 mg PO DAILY 05/18/18 Losartan Potassium [Cozaar 50 mg Tablet] 50 mg PO DAILY 05/18/18 Metoprolol Tartrate [Lopressor 50 mg Tablet] 50 mg PO BID 05/18/18 Pantoprazole Sodium [Protonix] 40 mg PO DAILY 05/18/18 Ranolazine [Ranexa 500 mg Tab.sr] 500 mg PO BID 05/18/18 Sertraline HCl [Zoloft] 25 mg PO DAILY 05/18/18 Sitagliptin Phosphate [Januvia] 100 mg PO DAILY 05/18/18 Allergies/Adverse Reactions: morphine Allergy (Verified 05/05/18 10:36) Review of Systems Constitutional: PRESENT: chills. ABSENT: anorexia, headache(s), night sweats Eyes: ABSENT: visual disturbances Ears: ABSENT: hearing changes Nose, Mouth, and Throat: ABSENT: sore throat Cardiovascular: PRESENT: chest pain. ABSENT: edema, orthropnea, palpitations Respiratory: ABSENT: cough, dyspnea Gastrointestinal: ABSENT: abdominal pain, bloating, dysphagia, nausea, vomiting Genitourinary: PRESENT: dysuria Musculoskeletal: ABSENT: deformity, joint swelling Integumentary: ABSENT: lesions Neurological: ABSENT: confusion, numbness, syncope, tingling, weakness Psychiatric: PRESENT: anxiety, depression Hematologic/Lymphatic: ABSENT: easy bleeding, easy bruising Physical Exam Vital Signs: Temp Pulse Resp BP Pulse Ox 98.0 F 14 129/61 H 95 06/11/18 17:02 06/11/18 17:02 06/11/18 17:02 06/11/18 17:02 Intake & Output 06/10/18 06/11/18 06/12/18 06:59 06:59 06:59 Intake Total 1000 Balance 1000 General appearance: PRESENT: no acute distress, cooperative, obese Head exam: PRESENT: atraumatic, normocephalic Eye exam: PRESENT: EOMI. ABSENT: conjunctival injection, scleral icterus Mouth exam: PRESENT: moist, neck supple, tongue midline Neck exam: ABSENT: lymphadenopathy Respiratory exam: PRESENT: clear to auscultation carmen, unlabored. ABSENT: accessory muscle use, rales, rhonchi, wheezes Cardiovascular exam: PRESENT: RRR, other - Muffled heart tones Pulses: PRESENT: normal radial pulses GI/Abdominal exam: PRESENT: normal bowel sounds, soft. ABSENT: distended, firm , tenderness Rectal exam: PRESENT: deferred Gentrourinary exam: ABSENT: indwelling catheter Musculoskeletal exam: PRESENT: normal inspection Neurological exam: PRESENT: alert, awake, oriented to person, oriented to place , oriented to situation, CN II-XII grossly intact Psychiatric exam: PRESENT: appropriate affect. ABSENT: anxious Skin exam: PRESENT: dry, intact, warm Results Impressions: Chest X-Ray 06/11/18 13:05 IMPRESSION: NO ACUTE FINDINGS. Assessment & Plan - Diagnosis (1) Chest pain Qualifiers: Chest pain type: unspecified Qualified Code(s): R07.9 - Chest pain, unspecified Is this a current diagnosis for this admission?: Yes Plan: Patient states that this chest pain is similar to the pain she had when she had her heart attacks. Her chest pain is almost at a 0, improved with one sublingual nitroglycerin. We will continue sublingual nitro with a goal of 0 out of 10 chest pain. No acute EKG changes. First set of cardiac enzymes negative and they will be trended. She is admitted to telemetry. Dr. Medina her hand model has been consulted. Her antihypertensives and other cardiac meds will be restarted once I have her medication reconciliation completed. (2) Dysuria Is this a current diagnosis for this admission?: Yes Plan: She has burning on urination. UA looks infected. Culture pending. Will start ceftriaxone. Lactic acid level was 2.8. Patient received 1 L of fluid in the ER and repeat lactic acid level is pending. She is hemodynamically stable. (3) Coronary artery disease Qualifiers: Coronary Disease-Associated Artery/Lesion type: unspecified vessel or lesion type [place] vs. transplanted heart: [place] heart Associated angina: with unspecified angina Qualified Code(s): I25.119 - Atherosclerotic heart disease of [place] coronary artery with unspecified angina pectoris Plan: Will start her cardiac meds including her long-acting nitrate, antihypertensives , Ranexa, daily aspirin. Dr. Medina has been consulted. (4) Diabetes mellitus type II, controlled Qualifiers: Diabetes mellitus buttermaker helper insulin use: without buttermaker helper use Diabetes mellitus complication status: with circulatory complication Diabetes mellitus complication detail: with other circulatory complications Qualified Code(s): E11.59 - Type 2 diabetes mellitus with other circulatory complications Is this a current diagnosis for this admission?: Yes Plan: Patient's diabetic meds will all be started once her medication reconciliation is completed. For now I have ordered short acting bolus and sliding scale insulin with before meals at bedtime blood glucose monitoring. She will be on a diabetic diet. (5) Hypertension Is this a current diagnosis for this admission?: Yes Plan: Blood pressure is controlled in the ER. Will start her antihypertensives when med rec complete. Pt did not know the name of all of her meds and has asked that I look at her chart for those, RN working on med rec. (6) Leukocytosis Qualifiers: Leukocytosis type: unspecified Qualified Code(s): D72.829 - Elevated white blood cell count, unspecified Is this a current diagnosis for this admission?: Yes Plan: Chronic, unclear etiology, patient states that she has never been diagnosed with leukemia or lymphoma. She is followed by Dr. Blankenship and asked that Dr. Blankenship see her while in the hospital. - Time Time Spent: 50 to 70 Minutes Anticipated discharge: Home - Inpatient Certification Based on my medical assessment, after consideration of the patient's comorbidities, presenting symptoms, or acuity I expect that the services needed warrant INPATIENT care.: Yes I certify that my determination is in accordance with my understanding of Medicare's requirements for reasonable and necessary INPATIENT services [42 CFR 412.3e].: Yes Medical Necessity: Significant Comorbidiites Make Outpatient Treatment Too Risky , Need Close Monitoring Due to Risk of Patient Decompensation, Need For IV Fluids, Need For Continuous Telemetry Monitoring, Risk of Complication if Not Cared For in Hospital
[2018-06-11] MEDS ORDERED: GABAPENTIN 300 MG CAPSULE PO ONE (19:00)
[2018-06-11] MEDS ORDERED: METOPROLOL TARTRATE 50 MG TABLET PO ONE (19:15)
--- NOTE | 2018-06-11 19:29 | PDOC CONSULTATION ---
Consultation Consult Date: 06/11/18 Attending physician:: KALLI ROB Consult reason:: Chest pain History of Present Illness Admission Date/PCP: 06/11/18 16:09 SOFI GUERRIER MD Patient complains of: Chest pain History of Present Illness: ORACIO PEDROZA is a 83 year old female who has known coronary disease, 2 MIs and is followed by Dr. Medina. She has chronic difficult to control angina. She was in her normal state of health until this morning when she was lying in bed she started to develop chest tightness that she says reminded her of the pain she had when she had her other heart attacks. She got up and had a bowl of cereal because she was feeling chilled she went back to bed. She then developed some nausea and some left neck pain. He was brought to the ER for evaluation of chest pain. She also reports that she has been having burning on urination worsening for the past 2 or 3 days. She is admitted to the hospitalist for further evaluation and for treatment. Of note she has an elevated lactic acid level 2.2 in the ER. Otherwise vitals are stable. She has an elevated white blood cell count chronically, and is followed by a body artist. Patient well-known to me. She had a admission recently with chest pain. She had a nuclear stress test. Patient has history of chronic lymphocytic leukemia. Patient also describes having urinary tract infection. Past Medical History Cardiac Medical History: Reports: Congestive Heart Failure - Diastolic, Coronary Artery Disease, Myocardial Infarction - x2, Hyperlipidema, Hypertension , Pulmonary Embolism - Distant history EENT Medical History: Reports: None Neurological Medical History: Denies: Seizures Endocrine Medical History: Reports: Diabetes Mellitus Type 2 Renal/ Medical History: Denies: Chronic Kidney Disease Malignancy Medical History: Reports: Skin Cancer - Excised from her nose. 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 Past Surgical History Past Surgical History: Reports: Appendectomy, Cholecystectomy, Hysterectomy, Tonsillectomy, Vascular Surgery, Other - Cardiac loop recorder, bilateral cataract surgery Social History Information Source: Patient Lives with: Family Smoking Status: Never Smoker Number of Years Smokin Last Time Smoked: 25-30yrs ago Frequency of Alcohol Use: None Hx Recreational Drug Use: No Drugs: None Hx Prescription Drug Abuse: No - Advance Directive Resuscitation Status: Do Not Resuscitate Family History Family History: CAD, COPD, DM, Hyperlipidemia, Hypertension, Malignancy - Father with lung cancer. Cousin with leukemia. 3 brothers with unknown cancers. Mother also of unknown type of cancer., Other Parental Family History Reviewed: Yes Children Family History Reviewed: Yes Sibling(s) Family History Reviewed.: Yes Medication/Allergy Home Medications: Aspirin [Aspirin EC] 81 mg PO DAILY 05/18/18 Buspirone HCl [Buspar 15 mg Tablet] 15 mg PO BID 05/18/18 Clopidogrel Bisulfate [Plavix 75 mg Tablet] 75 mg PO DAILY 05/18/18 Docusate Sodium [Colace 100 mg Capsule] 100 mg PO DAILY #30 capsule 05/18/18 Furosemide [Lasix 40 mg Tablet] 40 mg PO DAILY #30 tablet 05/18/18 Gabapentin [Neurontin 300 mg Capsule] 300 mg PO Q12 05/18/18 Glimepiride [Amaryl] 2 mg PO BID 05/18/18 Insulin Aspart Protam & Aspart [Novolog Mix 70-30 Vial] 60 unit SQ Q12 05/18/18 Isosorbide Dinitrate [Isordil Titradose 20 mg Tablet] 30 mg PO DAILY 05/18/18 Losartan Potassium [Cozaar 50 mg Tablet] 50 mg PO DAILY 05/18/18 Metoprolol Tartrate [Lopressor 50 mg Tablet] 50 mg PO BID 05/18/18 Pantoprazole Sodium [Protonix] 40 mg PO DAILY 05/18/18 Ranolazine [Ranexa 500 mg Tab.sr] 500 mg PO BID 05/18/18 Sertraline HCl [Zoloft] 25 mg PO DAILY 05/18/18 Sitagliptin Phosphate [Januvia] 100 mg PO DAILY 05/18/18 Allergies/Adverse Reactions: morphine Allergy (Verified 05/05/18 10:36) Review of Systems Review of Systems: Please see history of present illness and past medical history as wall. Constitutional: No fever or chills reported. Head : No recent chronic headaches, recent head injury. Eyes: No recent eye pain, diplopia, redness, discharge, acute visual changes. Ears: No recent chronic ear pain, acute hearing loss, ear discharge. Oral cavity: No recent ulcerations, bleeding, oral cavity discomfort. Neck: No recent acute neck pain reported. Hematologic: No recent easy bruising or bleeding. Lymphatic: No recent lymph node enlargement reported. Cardiovascular system review: See history of present illness. Respiratory system review: No hemoptysis or blood clots in the lungs reported. Mild Shortness of breath on exertion Gastrointestinal system review: Negative for any recent acute hematemesis, melena. Genitourinary system review: No recent acute or chronic hematuria, flank pain, History of recurrent UTI reported Skin system review: Negative for any recent abnormal bruising, no rash, no pruritus reported. Neurologic: No prior history of strokes, mini strokes, seizure disorder. Psychologic: No history of major psychosis or major depression reported. Musculoskeletal: Minor aches and pains reported. No acute joint swelling reported. Endocrine: No recent polyuria, polydipsia, recent heat or cold intolerance. Physical Exam Vital Signs: Temp Pulse Resp BP Pulse Ox 98.6 F 83 20 131/59 H 95 06/11/18 17:45 06/11/18 17:45 06/11/18 17:45 06/11/18 17:45 06/11/18 17:45 Intake & Output 06/10/18 06/11/18 06/12/18 06:59 06:59 06:59 Intake Total 1000 Balance 1000 Weight 94.4 kg Exam: GENERAL: well-nourished and in no acute distress. Alert and oriented x3 HEAD: Atraumatic, normocephalic. EYES: Pupils equal round and reactive to light, extraocular movements intact, sclera anicteric, conjunctiva are normal. ENT: TMs normal, nares patent, oropharynx clear without exudates. Moist mucous membranes. No oral ulcerations or bleeding gums noted NECK: supple without lymphadenopathy. Trachea is central. No cervical or axillary lymphadenopathy noted. Carotids are 2+, JVD WNL LUNGS: Respiration seems nonlabored, no significant accessory muscle action noted. Breath sounds clear to auscultation bilaterally and equal noted. No wheezes rales or rhonchi noted. No significant dullness noted on percussion. CHEST: Palpation of the chest wall shows no significant chest wall tenderness. HEART: [place] CASE COORDINATOR, No PSH, 1/6 VIRAL aortic area, 1/6 pineda systolic murmur mitral area, no rubs, no gallops. ABDOMEN: Soft, no significant tenderness appreciated, normoactive bowel sounds. No guarding, no rebound. No rigidity noted . No masses appreciated. EXTREMITIES: Pedal pulses are 1-2+, no calf tenderness noted. No clubbing or cyanosis. negative pedal edema noted NEUROLOGICAL: Focused neurological exam showed no significant neurologic deficit. Normal speech, no focal weakness appreciated. PSYCH: Normal mood, normal affect. Judgment and insight within normal limits. SKIN: No significant ecchymosis, skin is noted to be warm. MUSCULOSKELETAL EXAM: No significant acute joint swelling noted. Results Laboratory Results: 06/11/18 17:10 Lactic Acid 1.7 EKG Comments: Sinus rhythm, no acute ST-T wave changes are noted Impressions: Chest X-Ray 06/11/18 13:05 IMPRESSION: NO ACUTE FINDINGS. Assessment & Plan - Diagnosis (1) Chest pain Qualifiers: Chest pain type: unspecified Qualified Code(s): R07.9 - Chest pain, unspecified Is this a current diagnosis for this admission?: Yes (2) Coronary artery disease Qualifiers: Coronary Disease-Associated Artery/Lesion type: unspecified vessel or lesion type [place] vs. transplanted heart: [place] heart Associated angina: with unspecified angina Qualified Code(s): I25.119 - Atherosclerotic heart disease of [place] coronary artery with unspecified angina pectoris Is this a current diagnosis for this admission?: Yes (3) Urinary tract infection Qualifiers: Urinary tract infection type: site unspecified Hematuria presence: with hematuria Qualified Code(s): N39.0 - Urinary tract infection, site not specified; R31.9 - Hematuria, unspecified; R31.9 - Hematuria, unspecified Is this a current diagnosis for this admission?: Yes (4) Diabetes Qualifiers: Diabetes mellitus type: type 2 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 mellitus intermodal dispatcher insulin use: unspecified intermodal dispatcher insulin use status Diabetes mellitus complication status : with unspecified complications Qualified Code(s): E11.8 - Type 2 diabetes mellitus with unspecified complications Is this a current diagnosis for this admission?: Yes (5) Hyperlipidemia Qualifiers: Hyperlipidemia type: unspecified Qualified Code(s): E78.5 - Hyperlipidemia , unspecified Is this a current diagnosis for this admission?: Yes (6) Essential hypertension Is this a current diagnosis for this admission?: Yes - Notes Notes: Chest pain: Currently EKG and enzymes are negative. Follow-up with repeat EKG and enzymes. If they remain negative, patient could be discharged with outpatient follow-up. CAD: Symptomatically stable. Treat with Plavix, aspirin, Ranexa, beta-blockers , KIKE inhibitor/ARB, nitrates etc. Urinary tract infection: Continue antibiotic therapy. Diabetes: Continue good control of blood sugar. Patient noted to be hyperglycemic. Hypertension: Recommend good blood pressure control but avoid any hypotension. Hyperlipidemia: Recommend high potency statin therapy with LDL goal of less than 70. History of gastroesophageal reflux: Recommend proton pump therapy. Elevated white cell count: Recommend oncology referral. - Time Time Spent: 30 to 50 Minutes - More than 50% of the time spent coordinating care , discussing management plans with involved caregivers. Management plans discussed with involved personnels. Medical decision making was of moderate to high complexity, patient's has multiple comorbidities. CODE STATUS : was discussed, patient remains DO NOT RESUSCITATE. Surrogate decision-maker unchanged. Multiple medical problems were addressed. Medications reviewed and adjusted accordingly: Yes
[2018-06-11] MEDS ORDERED: BUSPIRONE HCL 10 MG TABLET PO ONE (19:30)
--- NOTE | 2018-06-11 19:49 | EKG REPORT ---
SEVERITY:- NORMAL ECG - SINUS RHYTHM : Confirmed by: Seble Miguel MD 11-Jun-2018 19:48:57
[2018-06-11] MEDS ORDERED: RANOLAZINE 500 MG TAB.SR.12H PO ONE (20:00)
[2018-06-11] MEDS ORDERED: CEFTRIAXONE 1 GM/D5W RTU 1 GM/50 ML RTUPB IV ONE ×2 (20:00→20:56)
[2018-06-11] MEDS: INSULIN LISPRO 100 UNIT/ML 3 ML VIAL SUBCUT PRN (21:34)
[2018-06-11] MEDS ORDERED: ASPART SQ SCH (22:00)
[2018-06-11] MEDS ORDERED: INSULIN ASPART PROTAM SQ SCH (22:00)
[2018-06-12] MEDS ORDERED: HUM INSULIN NPH/REG INSULIN HM 100 UNIT/1 ML 3 ML SUBCUT ONE (00:30)
[2018-06-12 05:01] LABS: HEMOGLOBIN 11.7 g/dL (12.0-15.5); MEAN CORPUSCULAR HEMOGLOBIN 18.5 pg (27.0-33.4); MEAN CORPUSCULAR HGB CONC 30.7 g/dL (32.0-36.0); MEAN CORPUSCULAR VOLUME 60 fl (80-97); PLATELET COUNT 368 10^3/uL (150-450); RED BLOOD COUNT 6.31 10^6/uL (3.72-5.28); RED CELL DISTRIBUTION WIDTH 24.3 % (11.5-14.0)
[2018-06-12 05:26] LABS: ANION GAP 11 (5-19); BLOOD UREA NITROGEN 20 mg/dL (7-20); CALCIUM 9.6 mg/dL (8.4-10.2); CARBON DIOXIDE 28 mmol/L (22-30); CHLORIDE 104 mmol/L (98-107); GLUCOSE 146 mg/dL (75-110); POTASSIUM 4.1 mmol/L (3.6-5.0); SODIUM 142.9 mmol/L (137-145)
[2018-06-12 06:02] LABS: WHITE BLOOD COUNT 44.5 10^3/uL (4.0-10.5)
[2018-06-12] MEDS: LANSOPRAZOLE 30 MG TAB.RAP.DR PO SCH (06:29)
--- NOTE | 2018-06-12 08:00 | EKG REPORT ---
SEVERITY:- ABNORMAL ECG - SINUS RHYTHM OLD ANTEROSEPTAL MD. : Confirmed by: Adam Bah MD 12-Jun-2018 07:59:31
--- NOTE | 2018-06-12 09:10 | PDOC CONSULTATION ---
Consultation Consult Date: 06/12/18 Consult reason:: Heatology Oncology consult was requested for patient with chronic leukocytosis History of Present Illness Admission Date/PCP: 06/11/18 16:09 SOFI GUERRIER MD History of Present Illness: ORACIO PEDROZA is a 83 year old female followed by the undersigned for chronic leukocytosis. Her WBC count usually is in the 30-60 range. Prior Bone Marrow Biopsy has showed normal trilineage hematopoesis with some early myelofibrosis. She presented to the ED with complaints of another UTI and chest pain and was diagnosed with sepsis, according to patient. However, I am unclear as to if she met criteria for Sepsis. She did have chest pain and cardiology has been consulted as she has a strong history of MIs. She is being treated for UTI. This morning, she states that she is feeling better. She was able to eat last night. No chest pain today. Some abdominal pain. No fever. Past Medical History Cardiac Medical History: Reports: Congestive Heart Failure - Diastolic, Coronary Artery Disease, Myocardial Infarction - x2, Hyperlipidema, Hypertension , Pulmonary Embolism - Distant history EENT Medical History: Reports: None Neurological Medical History: Denies: Seizures Endocrine Medical History: Reports: Diabetes Mellitus Type 2 Renal/ Medical History: Denies: Chronic Kidney Disease Malignancy Medical History: Reports: Skin Cancer - Excised from her nose. 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 Cousin with leukemia. 3 brothers with unknown cancers. Mother also of unknown type of cancer., Other Parental Family History Reviewed: Yes Children Family History Reviewed: No Sibling(s) Family History Reviewed.: No Medication/Allergy Home Medications: Aspirin [Aspirin EC] 81 mg PO DAILY 05/18/18 Buspirone HCl [Buspar 15 mg Tablet] 15 mg PO BID 05/18/18 Clopidogrel Bisulfate [Plavix 75 mg Tablet] 75 mg PO DAILY 05/18/18 Docusate Sodium [Colace 100 mg Capsule] 100 mg PO DAILY #30 capsule 05/18/18 Furosemide [Lasix 40 mg Tablet] 40 mg PO DAILY #30 tablet 05/18/18 Gabapentin [Neurontin 300 mg Capsule] 300 mg PO Q12 05/18/18 Glimepiride [Amaryl] 2 mg PO BID 05/18/18 Insulin Aspart Protam & Aspart [Novolog Mix 70-30 Vial] 60 unit SQ Q12 05/18/18 Isosorbide Dinitrate [Isordil Titradose 20 mg Tablet] 30 mg PO DAILY 05/18/18 Losartan Potassium [Cozaar 50 mg Tablet] 50 mg PO DAILY 05/18/18 Metoprolol Tartrate [Lopressor 50 mg Tablet] 50 mg PO BID 05/18/18 Pantoprazole Sodium [Protonix] 40 mg PO DAILY 05/18/18 Ranolazine [Ranexa 500 mg Tab.sr] 500 mg PO BID 05/18/18 Sertraline HCl [Zoloft] 25 mg PO DAILY 05/18/18 Sitagliptin Phosphate [Januvia] 100 mg PO DAILY 05/18/18 Allergies/Adverse Reactions: morphine Allergy (Verified 05/05/18 10:36) Review of Systems Constitutional: ABSENT: fever(s) Eyes: ABSENT: visual disturbances Ears: ABSENT: hearing changes Nose, Mouth, and Throat: ABSENT: sore throat Cardiovascular: PRESENT: chest pain Gastrointestinal: PRESENT: abdominal pain Genitourinary: PRESENT: dysuria, hematuria Integumentary: ABSENT: rash Neurological: PRESENT: weakness Psychiatric: ABSENT: anxiety Hematologic/Lymphatic: ABSENT: lymphadenopathy Physical Exam Vital Signs: Temp Pulse Resp BP Pulse Ox 97.4 F 76 18 138/59 H 97 06/12/18 04:00 06/12/18 07:00 06/12/18 04:00 06/12/18 04:00 06/12/18 04:00 Intake & Output 06/11/18 06/12/18 06/13/18 06:59 06:59 06:59 Intake Total 1972 Balance 1972 Weight 91.7 kg General appearance: PRESENT: no acute distress, obese Exam: 83 year old female. Head exam: PRESENT: normocephalic Eye exam: PRESENT: EOMI Mouth exam: PRESENT: neck supple, tongue midline Neck exam: ABSENT: lymphadenopathy, tenderness Respiratory exam: PRESENT: clear to auscultation carmen, unlabored Cardiovascular exam: PRESENT: RRR, other - Heart sounds obscured. Pulses: PRESENT: normal dorsalis pedis pul Vascular exam: ABSENT: pallor GI/Abdominal exam: PRESENT: soft, tenderness - LUQ Extremities exam: ABSENT: pedal edema Musculoskeletal exam: PRESENT: normal inspection Neurological exam: PRESENT: alert, awake, oriented to person, oriented to place , oriented to time, oriented to situation Psychiatric exam: PRESENT: appropriate affect Skin exam: PRESENT: normal color Results Laboratory Results: 06/12/18 04:42 06/12/18 04:42 06/11/18 06/11/18 06/11/18 17:10 19:50 21:45 WBC RBC Hgb Hct MCV MCH MCHC RDW Plt Count Sodium Potassium Chloride Carbon Dioxide Anion Gap BUN Creatinine Est GFR ( Amer) Est GFR (Non-Af Amer) Glucose Lactic Acid 1.7 3.0 H 3.0 H Calcium Magnesium 06/12/18 06/12/18 04:42 04:42 WBC 44.5 H* RBC 6.31 H Hgb 11.7 L Hct 38.0 MCV 60 L MCH 18.5 L MCHC 30.7 L RDW 24.3 H Plt Count 368 Sodium 142.9 Potassium 4.1 Chloride 104 Carbon Dioxide 28 Anion Gap 11 BUN 20 Creatinine 1.13 Est GFR ( Amer) 56 L Est GFR (Non-Af Amer) 46 L Glucose 146 H Lactic Acid Calcium 9.6 Magnesium 1.9 06/11/18 06/12/18 06/12/18 19:50 02:22 08:00 Troponin I < 0.012 < 0.012 < 0.012 Impressions: Chest X-Ray 06/11/18 13:05 IMPRESSION: NO ACUTE FINDINGS. Status: Image reviewed by me Assessment & Plan - Diagnosis (1) Leukocytosis Qualifiers: Leukocytosis type: unspecified Qualified Code(s): D72.829 - Elevated white blood cell count, unspecified Is this a current diagnosis for this admission?: Yes Plan: This is chronic and stable. No significant change from baseline. Continue to monitor. (2) Anemia Qualifiers: Anemia type: unspecified type Qualified Code(s): D64.9 - Anemia, unspecified Is this a current diagnosis for this admission?: Yes Plan: Chronic and mild. No treatment necessary at this time. Will continue to monitor. (3) Chest pain Qualifiers: Chest pain type: unspecified Qualified Code(s): R07.9 - Chest pain, unspecified Is this a current diagnosis for this admission?: Yes Plan: Per Dr. Medina (4) Urinary tract infection Qualifiers: Urinary tract infection type: site unspecified Hematuria presence: with hematuria Qualified Code(s): N39.0 - Urinary tract infection, site not specified; R31.9 - Hematuria, unspecified; R31.9 - Hematuria, unspecified Is this a current diagnosis for this admission?: Yes Plan: Continue Ceftriaxone. Await cultures. - Plan Summary Plan Summary: I will follow with you. Please call with any questions or concerns.
[2018-06-12] MEDS: HUM INSULIN NPH/REG INSULIN HM 100 UNIT/1 ML 3 ML SUBCUT SCH ×2 (09:23→22:29)
[2018-06-12] MEDS: GABAPENTIN 300 MG CAPSULE PO SCH ×2 (09:26→22:30)
[2018-06-12] MEDS: BUSPIRONE HCL 10 MG TABLET PO SCH ×2 (09:27→17:53)
[2018-06-12] MEDS: ASPIRIN 81 MG TABLET, ENT COATED PO SCH (09:28)
[2018-06-12] MEDS: METOPROLOL TARTRATE 50 MG TABLET PO SCH ×2 (09:28→22:30)
[2018-06-12] MEDS: SERTRALINE HCL 50 MG TABLET PO SCH (09:29)
[2018-06-12] MEDS: LOSARTAN POTASSIUM 50 MG TABLET PO SCH (09:29)
[2018-06-12] MEDS: CLOPIDOGREL BISULFATE 75 MG TABLET PO SCH (09:29)
[2018-06-12] MEDS: DOCUSATE SODIUM 100 MG CAPSULE PO SCH (09:30)
[2018-06-12] MEDS: FUROSEMIDE 40 MG TABLET PO SCH (09:34)
[2018-06-12] MEDS: CEFTRIAXONE SODIUM 1,000 MG in DEXTROSE 5%-WATER 50 ML IV SCH (09:44)
[2018-06-12] MEDS: RANOLAZINE 500 MG TAB.SR.12H PO SCH ×2 (09:46→22:30)
[2018-06-12] MEDS ORDERED: CEFTRIAXONE 1 GM/D5W RTU 1 GM/50 ML RTUPB IV SCH (10:00)
--- NOTE | 2018-06-12 11:42 | Physician Advisory Note ---
Physician Advisor ProgressNote .: Pursuant to the plan for [facility], I have reviewed the medical record for this patient. Physician Advisor Statement: Please consider documenting, if you agree: 1. "acute CP, suspect due to " (unstable angina? acute ischemic heart disease? ...) Status: 83yo Medicare pt w/mult concerning c-morbidities, in w/CP & acute UTI. Both these dx.s are typically Obs status appropriate until/unless other clinical issues prove the pt needs to transition to INpatient status, because they often improve quickly w/initial tx. 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 -UTI (acute cystitis, right?) is being tx'd, ur cx is growing GNRs x2, pt is feeling better w/Rocephin. Is there a clinical issue that makes attending concerned that pt is not safe for d/c today? - If so, then please document this & INpatient status may be appropriate. (Acute issues w/ fluid status w/chr dCHF but IVF boluses init.ly? ...) - If not, pt should be Obs status. Thanks! CK Aside to coders: pt had tremendous leukocytosis & elevated lactate initially, HR up to 90 despite metoprolol, so was concerning to ED physician for possible sepsis. However, attending has not indicated suspecting a dx of sepsis, & the leukocytosis is not acute per Dr. Garcia, so therefore, patient does not meet Sepsis-2 criteria for sepsis. She also does not meet Sepsis-3 criteria for sepsis. I would not query attending to ask about sepsis in this case.
[2018-06-12] MEDS: ISOSORBIDE DINITRATE 20 MG TABLET PO SCH (15:35)
--- NOTE | 2018-06-12 17:50 | PDOC PROGRESS REPORT ---
Subjective Progress Note for:: 06/12/18 Subjective:: No adverse events overnight. No new complaints. She denies any chest pain or shortness of breath. Vital signs been stable. She has been eating and drinking without difficulty. Reason For Visit: UTI, CHEST PAIN Physical Exam Vital Signs: Temp Pulse Resp BP Pulse Ox 98.4 F 81 16 118/65 97 06/12/18 16:10 06/12/18 16:10 06/12/18 16:10 06/12/18 16:10 06/12/18 16:10 Intake & Output 06/11/18 06/12/18 06/13/18 06:59 06:59 06:59 Intake Total 1971 1351 Balance 1971 135 Weight 91.7 kg General appearance: PRESENT: no acute distress, cooperative, obese Respiratory exam: PRESENT: clear to auscultation carmen, unlabored. ABSENT: accessory muscle use, rales, rhonchi, tachypnea, wheezes Cardiovascular exam: PRESENT: RRR, +S1, +S2. ABSENT: diastolic murmur, systolic murmur GI/Abdominal exam: PRESENT: normal bowel sounds, soft. ABSENT: guarding, rebound, tenderness Extremities exam: PRESENT: full ROM. ABSENT: pedal edema Musculoskeletal exam: PRESENT: normal inspection. ABSENT: deformity Neurological exam: PRESENT: alert, awake, oriented to person, oriented to place , oriented to time Psychiatric exam: PRESENT: appropriate affect, normal mood Results Laboratory Results: 06/12/18 04:42 06/12/18 04:42 06/11/18 06/11/18 06/11/18 17:10 19:50 21:45 WBC RBC Hgb Hct MCV MCH MCHC RDW Plt Count Sodium Potassium Chloride Carbon Dioxide Anion Gap BUN Creatinine Est GFR ( Amer) Est GFR (Non-Af Amer) Glucose Lactic Acid 1.7 3.0 H 3.0 H Calcium Magnesium 06/12/18 06/12/18 04:42 04:42 WBC 44.5 H* RBC 6.31 H Hgb 11.7 L Hct 38.0 MCV 60 L MCH 18.5 L MCHC 30.7 L RDW 24.3 H Plt Count 368 Sodium 142.9 Potassium 4.1 Chloride 104 Carbon Dioxide 28 Anion Gap 11 BUN 20 Creatinine 1.13 Est GFR ( Amer) 56 L Est GFR (Non-Af Amer) 46 L Glucose 146 H Lactic Acid Calcium 9.6 Magnesium 1.9 06/11/18 06/12/18 06/12/18 19:50 02:22 08:00 Troponin I < 0.012 < 0.012 < 0.012 Impressions: Chest X-Ray 06/11/18 13:05 IMPRESSION: NO ACUTE FINDINGS. Assessment & Plan - Diagnosis (1) Urinary tract infection Qualifiers: Urinary tract infection type: site unspecified Hematuria presence: with hematuria Qualified Code(s): N39.0 - Urinary tract infection, site not specified; R31.9 - Hematuria, unspecified; R31.9 - Hematuria, unspecified Is this a current diagnosis for this admission?: Yes Plan: Currently on Rocephin. Awaiting cultures. (2) Chest pain Qualifiers: Chest pain type: unspecified Qualified Code(s): R07.9 - Chest pain, unspecified Is this a current diagnosis for this admission?: Yes Plan: Cardiology has effectively ruled out acute coronary syndrome. Her troponins have been negative. Cardiology has recommended outpatient follow-up. (3) Marked leukocytosis Is this a current diagnosis for this admission?: Yes Plan: This is chronic and stable. - Time Time Spent with patient: 25-34 minutes
--- NOTE | 2018-06-12 19:32 | PDOC PROGRESS REPORT ---
Subjective Progress Note for:: 06/12/18 Subjective:: Patient seems to be doing better with gradual improvement. Pt is denying any chest arm or neck discomfort. Patient denying any PND, orthopnea. Patient denied any sustained palpitations, dizziness, syncope, near syncope. Patient denying any fever chills. Patient denying any other significant discomfort. Patient is maintaining sinus rhythm. Review of systems: Rest review of systems negative. Medications: Medications have been reviewed. Reason For Visit: UTI, CHEST PAIN Physical Exam Vital Signs: Temp Pulse Resp BP Pulse Ox 98.4 F 81 16 118/65 97 06/12/18 16:10 06/12/18 16:10 06/12/18 16:10 06/12/18 16:10 06/12/18 16:10 Intake & Output 06/11/18 06/12/18 06/13/18 06:59 06:59 06:59 Intake Total 1971 1351 Balance 1971 135 Weight 91.7 kg Exam: GENERAL: well-nourished and in no acute distress. Alert and oriented x3 HEAD: Atraumatic, normocephalic. EYES: Pupils equal round and reactive to light, extraocular movements intact, sclera anicteric, conjunctiva are normal. ENT: TMs normal, nares patent, oropharynx clear without exudates. Moist mucous membranes. No oral ulcerations or bleeding gums noted NECK: supple without lymphadenopathy. Trachea is central. No cervical or axillary lymphadenopathy noted. Carotids are 2+, JVD WNL LUNGS: Respiration seems nonlabored, no significant accessory muscle action noted. Breath sounds clear to auscultation bilaterally and equal noted. No wheezes rales or rhonchi noted. No significant dullness noted on percussion. CHEST: Palpation of the chest wall shows no significant chest wall tenderness. HEART: [place] [employer] TESTING, No PSH, 1/6 VIRAL aortic area, 1/6 pineda systolic murmur mitral area, no rubs, no gallops. ABDOMEN: Soft, no significant tenderness appreciated, normoactive bowel sounds. No guarding, no rebound. No rigidity noted . No masses appreciated. EXTREMITIES: Pedal pulses are 1-2+, no calf tenderness noted. No clubbing or cyanosis. negative pedal edema noted NEUROLOGICAL: Focused neurological exam showed no significant neurologic deficit. Normal speech, no focal weakness appreciated. PSYCH: Normal mood, normal affect. Judgment and insight within normal limits. SKIN: No significant ecchymosis, skin is noted to be warm. MUSCULOSKELETAL EXAM: No significant acute joint swelling noted. Results Laboratory Results: 06/12/18 04:42 06/12/18 04:42 06/11/18 06/11/18 06/12/18 19:50 21:45 04:42 WBC 44.5 H* RBC 6.31 H Hgb 11.7 L Hct 38.0 MCV 60 L MCH 18.5 L MCHC 30.7 L RDW 24.3 H Plt Count 368 Sodium Potassium Chloride Carbon Dioxide Anion Gap BUN Creatinine Est GFR ( Amer) Est GFR (Non-Af Amer) Glucose Lactic Acid 3.0 H 3.0 H Calcium Magnesium 06/12/18 04:42 WBC RBC Hgb Hct MCV MCH MCHC RDW Plt Count Sodium 142.9 Potassium 4.1 Chloride 104 Carbon Dioxide 28 Anion Gap 11 BUN 20 Creatinine 1.13 Est GFR ( Amer) 56 L Est GFR (Non-Af Amer) 46 L Glucose 146 H Lactic Acid Calcium 9.6 Magnesium 1.9 06/11/18 06/12/18 06/12/18 19:50 02:22 08:00 Troponin I < 0.012 < 0.012 < 0.012 EKG Comments: Telemetry shows sinus rhythm without any sustained tachycardia or bradycardia. Impressions: Chest X-Ray 06/11/18 13:05 IMPRESSION: NO ACUTE FINDINGS. Assessment & Plan - Diagnosis (1) Chest pain Qualifiers: Chest pain type: unspecified Qualified Code(s): R07.9 - Chest pain, unspecified Is this a current diagnosis for this admission?: Yes (2) Coronary artery disease Qualifiers: Coronary Disease-Associated Artery/Lesion type: unspecified vessel or lesion type [place] vs. transplanted heart: [place] heart Associated angina: with unspecified angina Qualified Code(s): I25.119 - Atherosclerotic heart disease of [place] coronary artery with unspecified angina pectoris Is this a current diagnosis for this admission?: Yes (3) Urinary tract infection Qualifiers: Urinary tract infection type: site unspecified Hematuria presence: with hematuria Qualified Code(s): N39.0 - Urinary tract infection, site not specified; R31.9 - Hematuria, unspecified; R31.9 - Hematuria, unspecified Is this a current diagnosis for this admission?: Yes (4) Diabetes Qualifiers: Diabetes mellitus type: type 2 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 Follow-up enzymes are negative. Patient is denying any chest pain. Previous cardiac evaluation reviewed with the patient. Patient could be discharged with outpatient follow- up. CAD: Symptomatically stable. Treat with Plavix, aspirin, Ranexa, beta-blockers , KIKE inhibitor/ARB, nitrates etc, as tolerated. Urinary tract infection: Continue antibiotic therapy. Diabetes: Continue good control of blood sugar. Patient noted to be hyperglycemic. Hypertension: Recommend good blood pressure control but avoid any hypotension. Hyperlipidemia: Recommend high potency statin therapy with LDL goal of less than 70. History of gastroesophageal reflux: Recommend proton pump therapy. Elevated white cell count: Patient seen and being followed by oncologist. Will sign off. Please reconsult if needed. - Time Time with patient: 15-25 minutes - CODE STATUS was discussed, patient remains DNR. Surrogate decision-maker patient's daughter. Multiple medical problems were addressed. More than 50% of the time spent coordinating care, discussing management plans with involved caregivers. Management plans discussed with involved personnels. Medical decision making was of moderate to high complexity , patient's has multiple comorbidities. Medications reviewed and adjusted accordingly: Yes
[2018-06-12] MEDS: ACETAMINOPHEN 325 MG TABLET PO PRN (20:25)
[2018-06-12] MEDS: NYSTATIN TOPICAL POWDER 15 GM TP SCH (22:35)
[2018-06-13] MEDS: NYSTATIN TOPICAL POWDER 15 GM TP SCH ×2 (05:56→13:15)
[2018-06-13] MEDS: LANSOPRAZOLE 30 MG TAB.RAP.DR PO SCH (05:56)
[2018-06-13 07:44] LABS: HEMATOCRIT 39.8 % (36.0-47.0); HEMOGLOBIN 12.1 g/dL (12.0-15.5); MEAN CORPUSCULAR HEMOGLOBIN 18.3 pg (27.0-33.4); MEAN CORPUSCULAR HGB CONC 30.3 g/dL (32.0-36.0); MEAN CORPUSCULAR VOLUME 60 fl (80-97); PLATELET COUNT 418 10^3/uL (150-450); RED CELL DISTRIBUTION WIDTH 25.1 % (11.5-14.0)
[2018-06-13 08:00] LABS: WHITE BLOOD COUNT 48.8 10^3/uL (4.0-10.5)
[2018-06-13 08:02] LABS: ANION GAP 13 (5-19); BLOOD UREA NITROGEN 26 mg/dL (7-20); CALCIUM 9.8 mg/dL (8.4-10.2); CARBON DIOXIDE 27 mmol/L (22-30); CHLORIDE 99 mmol/L (98-107); GLUCOSE 176 mg/dL (75-110); POTASSIUM 4.5 mmol/L (3.6-5.0)
[2018-06-13] MEDS: INSULIN LISPRO 100 UNIT/ML 3 ML VIAL SUBCUT PRN ×2 (09:08→12:48)
--- NOTE | 2018-06-13 10:17 | Physician Advisory Note ---
Physician Advisor ProgressNote .: Pursuant to the plan for [facility], I have reviewed the medical record for this patient. Physician Advisor Statement: Status review update: Medicare pt, now kept in hospital x 2 MNs. Reason for 2nd MN needs to be made explicit: did attending have CONCERNS about pt? If so, what? - if pt was simply kept a 2nd MN for pt/physician convenience (since UTIs are commonly tx'd outpt, & pt already documented to be safe for d/c from cardiac standpoint), then status still most approp to be Obs. - If attending was concerned about pt for a clinical reason that made it important to keep her in hospital until cx/sens results available, leading to keeping her for 2nd MN last pm, please document it; then she may be appropriate for Inpt status after all. Thanks! CK - Feel free to call/text if ?s: [phone]
[2018-06-13] MEDS: HUM INSULIN NPH/REG INSULIN HM 100 UNIT/1 ML 3 ML SUBCUT SCH (11:15)
[2018-06-13] MEDS: DOCUSATE SODIUM 100 MG CAPSULE PO SCH (11:16)
[2018-06-13] MEDS: LOSARTAN POTASSIUM 50 MG TABLET PO SCH (11:16)
[2018-06-13] MEDS: BUSPIRONE HCL 10 MG TABLET PO SCH (11:16)
[2018-06-13] MEDS: SERTRALINE HCL 50 MG TABLET PO SCH (11:17)
[2018-06-13] MEDS: ASPIRIN 81 MG TABLET, ENT COATED PO SCH (11:17)
[2018-06-13] MEDS: ISOSORBIDE DINITRATE 20 MG TABLET PO SCH (11:17)
[2018-06-13] MEDS: METOPROLOL TARTRATE 50 MG TABLET PO SCH (11:18)
[2018-06-13] MEDS: RANOLAZINE 500 MG TAB.SR.12H PO SCH (11:18)
[2018-06-13] MEDS: FUROSEMIDE 40 MG TABLET PO SCH (11:18)
[2018-06-13] MEDS: GABAPENTIN 300 MG CAPSULE PO SCH (11:18)
[2018-06-13] MEDS: CLOPIDOGREL BISULFATE 75 MG TABLET PO SCH (11:18)
[2018-06-13] MEDS: CEFTRIAXONE SODIUM 1,000 MG in DEXTROSE 5%-WATER 50 ML IV SCH (11:19)
[2018-06-13] MEDS: ACETAMINOPHEN 325 MG TABLET PO PRN (11:34)
[2018-06-13 12:45] VITALS: BP 107/84
--- NOTE | 2018-06-13 18:15 | PDOC DISCHARGE SUMMARY ---
General - Admit/Disc Date/PCP Admission Date/Primary Care Provider: 06/11/18 16:09 SOFI GUERRIER MD Discharge Date: 06/13/18 - Discharge Diagnosis (1) Urinary tract infection Is this a current diagnosis for this admission?: Yes Summary: She had 2 different organisms, a pansensitive E. coli, and an Enterobacter with some drug resistance. She responded well to Rocephin, so will finish her as an outpatient with a course of cefdinir. (2) Chest pain Is this a current diagnosis for this admission?: Yes Summary: Cardiology has effectively ruled out acute coronary syndrome. Her troponins have been negative. Cardiology has recommended outpatient follow-up. (3) Marked leukocytosis Is this a current diagnosis for this admission?: Yes Summary: Chronic problem for her. She follows up outpatient with hematology. - Additional Information Resuscitation Status: Do Not Resuscitate Discharge Diet: Diabetic Discharge Activity: Activity As Tolerated Prescriptions: Cefdinir 300 mg PO BID #10 capsule Home Medications: Aspirin [Aspirin EC] 81 mg PO DAILY 05/18/18 Buspirone HCl [Buspar 15 mg Tablet] 15 mg PO BID 05/18/18 Clopidogrel Bisulfate [Plavix 75 mg Tablet] 75 mg PO DAILY 05/18/18 Docusate Sodium [Colace 100 mg Capsule] 100 mg PO DAILY #30 capsule 05/18/18 Furosemide [Lasix 40 mg Tablet] 40 mg PO DAILY #30 tablet 05/18/18 Gabapentin [Neurontin 300 mg Capsule] 300 mg PO Q12 05/18/18 Glimepiride [Amaryl] 2 mg PO BID 05/18/18 Insulin Aspart Protam & Aspart [Novolog Mix 70-30 Vial] 60 unit SQ Q12 05/18/18 Isosorbide Dinitrate [Isordil Titradose 20 mg Tablet] 30 mg PO DAILY 05/18/18 Losartan Potassium [Cozaar 50 mg Tablet] 50 mg PO DAILY 05/18/18 Metoprolol Tartrate [Lopressor 50 mg Tablet] 50 mg PO Q12 05/18/18 Pantoprazole Sodium [Protonix] 40 mg PO DAILY 05/18/18 Ranolazine [Ranexa 500 mg Tab.sr] 500 mg PO BID 05/18/18 Sertraline HCl [Zoloft] 25 mg PO DAILY 05/18/18 Sitagliptin Phosphate [Januvia] 100 mg PO DAILY 05/18/18 Cefdinir 300 mg PO BID #10 capsule 06/13/18 History of Present Illness History of Present Illness: ORACIO PEDROZA is a 83 year old female who has known coronary disease, 2 MIs and is followed by Dr. Medina. She has chronic difficult to control angina. She was in her normal state of health until this morning when she was lying in bed she started to develop chest tightness that she says reminded her of the pain she had when she had her other heart attacks. She got up and had a bowl of cereal because she was feeling chilled she went back to bed. She then developed some nausea and some left neck pain. He was brought to the ER for evaluation of chest pain. She also reports that she has been having burning on urination worsening for the past 2 or 3 days. She is admitted to the hospitalist for further evaluation and for treatment. Of note she has an elevated lactic acid level 2.2 in the ER. Otherwise vitals are stable. 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 Hospital Course Hospital Course: Cardiology ruled out any acute coronary syndrome and recommended outpatient follow-up. She was placed on empiric IV Rocephin. She had the organisms noted above. She responded well to Rocephin so we elected to put her on a course of Omnicef. She wanted to stay another couple of days but there is really no reason to keep her in the hospital. Her labs and examination were reassuring and she was discharged today in good condition. Physical Exam Vital Signs: Temp Pulse Resp BP Pulse Ox 97.3 F 84 18 107/84 97 06/13/18 13:31 06/13/18 13:31 06/13/18 13:31 06/13/18 13:31 06/13/18 13:31 Intake & Output 06/12/18 06/13/18 06/14/18 06:59 06:59 06:59 Intake Total 1971 1351 886 Balance 1971 1351 886 Weight 91.7 kg 89.1 kg General appearance: PRESENT: no acute distress, cooperative, obese Respiratory exam: PRESENT: clear to auscultation carmen, unlabored. ABSENT: accessory muscle use, rales, rhonchi, tachypnea, wheezes Cardiovascular exam: PRESENT: RRR, +S1, +S2. ABSENT: diastolic murmur, systolic murmur GI/Abdominal exam: PRESENT: normal bowel sounds, soft. ABSENT: guarding, rebound, tenderness Extremities exam: PRESENT: full ROM. ABSENT: pedal edema Musculoskeletal exam: PRESENT: normal inspection. ABSENT: deformity Neurological exam: PRESENT: alert, awake, oriented to person, oriented to place , oriented to time Psychiatric exam: PRESENT: appropriate affect, normal mood Results Laboratory Results: 06/13/18 06:53 06/13/18 06:53 06/13/18 06/13/18 06:53 06:53 WBC 48.8 H* RBC 6.60 H Hgb 12.1 Hct 39.8 MCV 60 L MCH 18.3 L MCHC 30.3 L RDW 25.1 H Plt Count 418 Sodium 139.0 Potassium 4.5 Chloride 99 Carbon Dioxide 27 Anion Gap 13 BUN 26 H Creatinine 1.17 Est GFR ( Amer) 53 L Est GFR (Non-Af Amer) 44 L Glucose 176 H Calcium 9.8 06/11/18 18:40 Nasophary (Mrsa Only) MRSA Surveillance Culture - Final MRSA RECOVERED 06/11/18 06/12/18 06/12/18 19:50 02:22 08:00 Troponin I < 0.012 < 0.012 < 0.012 Impressions: Chest X-Ray 06/11/18 13:05 IMPRESSION: NO ACUTE FINDINGS. Qualifiers - * PATIENT BEING DISCHARGED WITH ANY OF THE FOLLOWING DIAGNOSIS: No
== END 2018-06-13 16:32 | disposition home or self-care (01) ==
LOC: ER 13:02 → EH 16:09 → INTOOBSV 16:09 → 5 17:28
PROVIDERS: ADMIT Internal Medicine; ATTEND Internal Medicine
DX: N39.0 Urinary tract infection, site not specified (principal); R31.9 Hematuria, unspecified; B96.20 Unspecified Escherichia coli [E. coli] as the cause of diseases classified elsewhere; Z16.39 Resistance to other specified antimicrobial drug; R07.89 Other chest pain; D72.829 Elevated white blood cell count, unspecified; I25.119 Atherosclerotic heart disease of native coronary artery with unspecified angina pectoris; M54.2 Cervicalgia; R11.0 Nausea; E66.9 Obesity, unspecified; I11.0 Hypertensive heart disease with heart failure; I50.30 Unspecified diastolic (congestive) heart failure; E11.65 Type 2 diabetes mellitus with hyperglycemia; D75.81 Myelofibrosis; R74.0 Nonspecific elevation of levels of transaminase and lactic acid dehydrogenase [LDH]; R10.9 Unspecified abdominal pain; R53.1 Weakness; D64.9 Anemia, unspecified; E11.59 Type 2 diabetes mellitus with other circulatory complications; E78.5 Hyperlipidemia, unspecified; Z68.32 Body mass index [BMI] 32.0-32.9, adult; I25.2 Old myocardial infarction; F32.9 Major depressive disorder, single episode, unspecified; F41.9 Anxiety disorder, unspecified; Z66 Do not resuscitate; Z79.899 Other long term (current) drug therapy; Z79.82 Long term (current) use of aspirin; Z79.02 Long term (current) use of antithrombotics/antiplatelets; Z79.4 Long term (current) use of insulin; Z86.711 Personal history of pulmonary embolism; Z85.828 Personal history of other malignant neoplasm of skin; Z90.49 Acquired absence of other specified parts of digestive tract; Z90.710 Acquired absence of both cervix and uterus; Z80.6 Family history of leukemia; Z80.1 Family history of malignant neoplasm of trachea, bronchus and lung; Z82.49 Family history of ischemic heart disease and other diseases of the circulatory system; Z23 Encounter for immunization; Z87.19 Personal history of other diseases of the digestive system
CPT/HCPCS: 93005; 99285; 96360; 36415 ×3; 87040; 87086; 82553; 82962 ×3; 82550; 83735; 85025; 85027 ×2; 87088; 80048 ×2; 80053; 81001; 84484 ×2; 87186; 83605; 71045; 90686; 93010; G0008; A9270 ×34; J0696 ×3; J3490 ×3; J7030; 90471; J1815

== ENCOUNTER 2018-07-15 16:52 | Emergency (ER) | payer MEDICARE, OTHER ==
--- NOTE | 2018-07-15 17:15 | ER Document Report ---
ED Cardiac - General Chief Complaint: Chest Pain Stated Complaint: CHEST PAIN Time Seen by Provider: 07/15/18 17:03 Mode of Arrival: Medic Information source: Patient Notes: 83-year-old female brought to the emergency department by EMS for chest pain that started this morning. She states that it was intermittent until around 2 PM. She states that she took aspirin and the chest pain resolved. She does have a history of coronary artery disease and follows up with Dr. Medina. Patient states that she does not have any stents placed. She is currently on Plavix. She states that her last stress test was a few months ago and was normal. Patient states that she has been having dysuria, increased urgency, increased frequency, cloudy urine. Patient states that she is here because she is concerned she has a urinary tract infection. Patient denies any fever, chills, current chest pain, shortness of breath, abdominal pain, nausea, vomiting, diarrhea, constipation. TRAVEL OUTSIDE OF THE [place] IN LAST 30 DAYS: No - HPI Patient complains to provider of: Chest pain, Chest tightness Was the onset of pain: Sudden Quality of pain: Pressure Severity now: None Severity at worst: Mild Pain level currently: Denies Chest pain precipitating factors: At Rest Cardiac risk factors: Diabetes, Hypertension, Dyslipidemia, Hx DE Positive cardiac history: Yes Associated symptoms: None Exacerbated by: Denies Relieved by: Other Similar symptoms previously: Yes Recently seen / treated by doctor: No - Related Data Allergies/Adverse Reactions: morphine Allergy (Verified 05/05/18 10:36) Past Medical History - General Information source: Patient - Social History Smoking Status: Former Smoker Family History: CAD, COPD, DM, Hyperlipidemia, Hypertension, Malignancy - Father with lung cancer. Cousin with leukemia. 3 brothers with unknown cancers. Mother also of unknown type of cancer., Other - Past Medical History Cardiac Medical History: Reports: Hx Congestive Heart Failure - Diastolic, Hx Coronary Artery Disease, Hx Heart Attack - x2, Hx Hypercholesterolemia, Hx Hypertension, Hx Pulmonary Embolism - Distant history Neurological Medical History: Denies: Hx Seizures Endocrine Medical History: Reports: Hx Diabetes Mellitus Type 2 Renal/ Medical History: Denies: Hx Peritoneal Dialysis Malignancy Medical History: Reports: Hx Skin Cancer - Excised from her nose. GI Medical History: Reports: Hx Gastroesophageal Reflux Disease Musculoskeletal Medical History: Reports Hx Arthritis, Reports Hx Musculoskeletal Deformity Psychiatric Medical History: Reports: Hx Anxiety, Hx Depression Infectious Medical History: Reports: Hx MRSA - Quite distant history Past Surgical History: Reports: Hx Abdominal Surgery, Hx Appendectomy, Hx Cholecystectomy, Hx Hysterectomy, Hx Tonsillectomy, Hx Vascular Surgery, Other - Cardiac loop recorder, bilateral cataract surgery - Immunizations Hx Diphtheria, Pertussis, Tetanus Vaccination: No Hx Pneumococcal Vaccination: 04/29/13 Review of Systems - Review of Systems Constitutional: No symptoms reported EENT: No symptoms reported Cardiovascular: Chest pain Respiratory: No symptoms reported Gastrointestinal: No symptoms reported Genitourinary: Burning, Dysuria, Frequency, Urgency Female Genitourinary: No symptoms reported Musculoskeletal: No symptoms reported Skin: No symptoms reported Hematologic/Lymphatic: No symptoms reported Physical Exam - Vital signs Vitals: Resp BP Pulse Ox 17 142/67 H 94 07/15/18 16:57 07/15/18 16:57 07/15/18 16:57 - Notes Notes: PHYSICAL EXAMINATION: GENERAL: Well-appearing, well-nourished and in no acute distress. HEAD: Atraumatic, normocephalic. EYES: Pupils equal round and reactive to light, extraocular movements intact, conjunctiva are normal. ENT: Nares patent, oropharynx clear without exudates. Moist mucous membranes. NECK: Normal range of motion, supple without lymphadenopathy LUNGS: Breath sounds clear to auscultation bilaterally and equal. No wheezes rales or rhonchi. HEART: Regular rate and rhythm without murmurs ABDOMEN: Soft, nontender, nondistended abdomen. No guarding, no rebound. No masses appreciated. Female : deferred Musculoskeletal: Normal range of motion, no pitting or edema. No cyanosis. NEUROLOGICAL: Cranial nerves grossly intact. Normal speech, normal gait. Normal sensory, motor exams PSYCH: Normal mood, normal affect. SKIN: Warm, Dry, normal turgor, no rashes or lesions noted. Course - Re-evaluation Re-evalutation: 07/15/18 17:11 EKG: Ventricular rate 84, NH interval 196, QRS duration 72, QTc 469, sinus rhythm, no ischemic changes. 07/15/18 21:39 Patient's white blood cell count is chronically elevated. Her current values are similar to previous. Patient does have a urinary tract infection. She was given a gram of Rocephin in the emergency department. Vital signs are stable. Patient has no complaints at this time. I will discharge the patient home with a prescription. I reviewed previous cultures. Patient is sensitive to bactrim. Patient instructed to follow-up with her primary care physician this week, to take medication prescribed as directed, and to return for worsening symptoms. Patient is agreeable to plan of care. 07/15/18 21:43 - Vital Signs Vital signs: Temp Pulse Resp BP Pulse Ox 16 135/69 H 96 07/15/18 21:22 07/15/18 21:22 07/15/18 21:22 - Laboratory Result Diagrams: 07/15/18 20:10 07/15/18 18:50 Laboratory results interpreted by me: 07/15/18 07/15/18 07/15/18 18:50 19:07 20:10 WBC 46.1 H* Plt Count 463 H Seg Neuts % (Manual) 84 H Lymphocytes % (Manual) 4 L Basophils % (Manual) 3 H Abs Neuts (Manual) 38.7 H Abs Monocytes (Manual) 2.8 H Absolute Eos (Manual) 1.4 H Abs Basophils (Manual) 1.4 H Sodium 145.2 H Carbon Dioxide 31 H BUN 21 H Est GFR (Non-Af Amer) 52 L Glucose 167 H Calcium 10.6 H Alkaline Phosphatase 195 H Creatine Kinase < 20 L Total Protein 8.3 H Urine Blood SMALL H Ur Leukocyte Esterase LARGE H Discharge - Discharge Clinical Impression: Urinary tract infection Qualifiers: Urinary tract infection type: site unspecified Hematuria presence: without hematuria Qualified Code(s): N39.0 - Urinary tract infection, site not specified Leukocytosis Qualifiers: Leukocytosis type: unspecified Qualified Code(s): D72.829 - Elevated white blood cell count, unspecified Condition: Good Disposition: HOME, SELF-CARE Instructions: Trimethoprim-Sulfa ([facility]), Urinary Tract Infection ([facility]) Prescriptions: Sulfamethoxazole/Trimethoprim [Bactrim Ds Tablet] 1 each PO BID #14 tablet Referrals: SOFI GUERRIER MD [Primary Care Provider] - Follow up as needed
--- NOTE | 2018-07-15 17:19 | RADIOLOGY REPORT (SQ) ---
EXAM DESCRIPTION: CHEST SINGLE VIEW COMPLETED DATE/TIME: 07/15/2018 5:08 pm REASON FOR STUDY: cp COMPARISON: 04/21/2018 EXAM PARAMETERS: NUMBER OF VIEWS: One view. TECHNIQUE: Single frontal radiographic view of the chest acquired. RADIATION DOSE: NA LIMITATIONS: None. FINDINGS: LUNGS AND PLEURA: No opacities, masses or pneumothorax. No pleural effusion. MEDIASTINUM AND HILAR STRUCTURES: No masses. Contour normal. HEART AND VASCULAR STRUCTURES: Heart normal in size. Normal vasculature. BONES: No acute findings. HARDWARE: None in the chest. OTHER: Implantable loop recorder. IMPRESSION: No acute abnormality of the lungs in AP projection. TECHNICAL DOCUMENTATION: JOB ID: [id number] [employer]- All Rights Reserved Reading location - IP/workstation name: [email or web address]
[2018-07-15 19:23] LABS: ALANINE AMINOTRANSFERASE 12 U/L (9-52); ALBUMIN 4.1 g/dL (3.5-5.0); ALKALINE PHOSPHATASE 195 U/L (38-126); ANION GAP 11 (5-19); ASPARTATE AMINO TRANSFERASE 25 U/L (14-36); BILIRUBIN,DIRECT 0.3 mg/dL (0.0-0.4); BILIRUBIN,TOTAL 0.8 mg/dL (0.2-1.3); BLOOD UREA NITROGEN 21 mg/dL (7-20); CALCIUM 10.6 mg/dL (8.4-10.2); CARBON DIOXIDE 31 mmol/L (22-30); CHLORIDE 103 mmol/L (98-107); GLUCOSE 167 mg/dL (75-110); POTASSIUM 3.9 mmol/L (3.6-5.0); SODIUM 145.2 mmol/L (137-145); TOTAL PROTEIN 8.3 g/dL (6.3-8.2)
[2018-07-15 19:24] LABS: CREATINE KINASE < 20 U/L (30-135)
[2018-07-15 19:30] LABS: APPEARANCE,URINE CLOUDY; BILIRUBIN,URINE NEGATIVE (NEGATIVE); COLOR,URINE YELLOW; GLUCOSE, URINE NEGATIVE (NEGATIVE); KETONES,URINE NEGATIVE (NEGATIVE); LEUKOCYTE ESTERASE,URINE LARGE (NEGATIVE); NITRITE,URINE NEGATIVE (NEGATIVE); PROTEIN,URINE NEGATIVE (NEGATIVE); URINE SPECIFIC GRAVITY 1.009; UROBILINOGEN,URINE NEGATIVE mg/dL (<2.0)
[2018-07-15 19:34] LABS: CREATINE KINASE MB 0.87 ng/mL (<4.55)
[2018-07-15 19:38] LABS: TROPONIN I < 0.012 ng/mL
[2018-07-15] MEDS ORDERED: CEFTRIAXONE INJ 1000 MG VIAL IM ONE (19:48)
[2018-07-15] MEDS ORDERED: LIDOCAINE 1% INJ-PF (10 MG/ML) 30 ML SDV ONE (20:10)
[2018-07-15] MEDS: LIDOCAINE 1% INJ-PF (10 MG/ML) 30 ML SDV ONE ×2 (20:11→20:36)
[2018-07-15 20:26] LABS: PLATELET COUNT 463 10^3/uL (150-450)
[2018-07-15 20:50] LABS: WHITE BLOOD COUNT 46.1 10^3/uL (4.0-10.5)
[2018-07-15 20:55] LABS: ABSOLUTE LYMPHOCYTES# (MANUAL) 1.8 10^3/uL (0.5-4.7); ABSOLUTE MONOCYTES # (MANUAL) 2.8 10^3/uL (0.1-1.4); ABSOLUTE NEUTROPHILS# (MANUAL) 38.7 10^3/uL (1.7-8.2); BASOPHILS % (MANUAL) 3 % (0-2); EOSINOPHILS % (MANUAL) 3 % (0-6); LYMPHOCYTES % (MANUAL) 4 % (13-45); MONOCYTES % (MANUAL) 6 % (3-13); SEGMENTED NEUTROPHILS % (MAN) 84 % (42-78); TOTAL CELLS COUNTED 100
[2018-07-15 20:58] LABS: ANISOCYTOSIS 3+; OVALOCYTES 3+; PLATELET COMMENT ADEQUATE; POIKILOCYTOSIS 3+; TEAR DROP CELLS 2+; TOXIC GRANULATION 1+; TOXIC VACUOLATION PRESENT
[2018-07-15 22:26] VITALS: BP 126/55
--- NOTE | 2018-07-16 10:54 | EKG REPORT ---
SEVERITY:- ABNORMAL ECG - SINUS RHYTHM LEFT VENTRICULAR HYPERTROPHY ANTERIOR INFARCT, AGE INDETERMINATE : Confirmed by: Bud Medina 16-Jul-2018 10:53:38
== END 2018-07-15 22:26 | disposition home or self-care (01) ==
LOC: ER 16:52
DX: N39.0 Urinary tract infection, site not specified (principal); D72.829 Elevated white blood cell count, unspecified; R07.9 Chest pain, unspecified; I50.9 Heart failure, unspecified; I25.10 Atherosclerotic heart disease of native coronary artery without angina pectoris; Z88.6 Allergy status to analgesic agent; Z86.14 Personal history of Methicillin resistant Staphylococcus aureus infection; Z90.49 Acquired absence of other specified parts of digestive tract
CPT/HCPCS: 93005; 99285; 96372; 36415; 87086; 82553; 82550; 85025; 87088; 80053; 81001; 84484; 87186; 71045; 93010; J3490; J0696

== ENCOUNTER 2018-08-04 16:19 | Emergency (ER) | payer MEDICARE, OTHER ==
[2018-08-04] MEDS ORDERED: ASPIRIN 81 MG TABLET, CHEWABLE PO ONE (16:46)
[2018-08-04] MEDS ORDERED: FENTANYL CITRATE INJ/PF 100 MCG/2 ML AMPUL IV ONE (16:47)
[2018-08-04] MEDS ORDERED: ONDANSETRON HCL INJ/PF 4 MG/2 ML SDV IV ONE (16:47)
--- NOTE | 2018-08-04 17:03 | RADIOLOGY REPORT (SQ) ---
EXAM DESCRIPTION: CHEST SINGLE VIEW COMPLETED DATE/TIME: 08/04/2018 4:55 pm REASON FOR STUDY: chest pain COMPARISON: 07/15/2018 EXAM PARAMETERS: NUMBER OF VIEWS: One view. TECHNIQUE: Single frontal radiographic view of the chest acquired. RADIATION DOSE: NA LIMITATIONS: None. FINDINGS: LUNGS AND PLEURA: There is mild elevation the left hemidiaphragm. MEDIASTINUM AND HILAR STRUCTURES: No masses. Contour normal. HEART AND VASCULAR STRUCTURES: Heart normal in size. Normal vasculature. BONES: No acute findings. HARDWARE: Loop recorder. OTHER: No other significant finding. IMPRESSION: NO ACUTE RADIOGRAPHIC FINDING IN THE CHEST. TECHNICAL DOCUMENTATION: JOB ID: [id number] [employer]- All Rights Reserved Reading location - IP/workstation name: [email or web address]
--- NOTE | 2018-08-04 17:09 | ER Document Report ---
ED General - General Mode of Arrival: Medic Information source: Patient TRAVEL OUTSIDE OF THE [place] IN LAST 30 DAYS: No <ISHAAN MARCANO - Last Filed: 08/04/18 19:00> <FARRUKH AVILA - Last Filed: 08/05/18 01:41> - General Chief Complaint: Chest Pain Stated Complaint: DIZZINESS Time Seen by Provider: 08/04/18 16:30 Notes: Patient is an 83-year-old female who presents to the emergency department via EMS with multiple complaints today. Patient reports that she has been having a dry cough with chest pain for the last 3 days. She reports the pain is worse when she moves. Today she reports that she has been feeling dizzy all day and has had minimal p.o. intake since last night. She states she vomited one time just before she called the rescue squad. Patient reports past medical history of CHF, diabetes, myocardial infarction, stroke, GI bleed and pulmonary embolism. Patient reports she is currently taking Plavix. Patient denies any fever or diarrhea. She states the pain is located on the left side of her chest , states it feels like "someone kicked me" she denies any radiation of the pain but states that earlier today she did have some tingling in her left fingertips which has now resolved. Her primary care provider is Dr. Kamara and her vigoureux printer is Dr. Medina. (ISHAAN MARCANO) - Related Data Allergies/Adverse Reactions: morphine Allergy (Mild, Verified 08/04/18 16:32) Past Medical History - General Information source: Patient - Social History Smoking Status: Never Smoker Frequency of alcohol use: None Drug Abuse: None Family History: CAD, COPD, DM, Hyperlipidemia, Hypertension, Malignancy - Father with lung cancer. Cousin with leukemia. 3 brothers with unknown cancers. Mother also of unknown type of cancer., Other - Past Medical History Cardiac Medical History: Reports: Hx Congestive Heart Failure - Diastolic, Hx Coronary Artery Disease, Hx Heart Attack - x2, Hx Hypercholesterolemia, Hx Hypertension, Hx Pulmonary Embolism - Distant history Neurological Medical History: Denies: Hx Seizures Endocrine Medical History: Reports: Hx Diabetes Mellitus Type 2 Renal/ Medical History: Denies: Hx Peritoneal Dialysis Malignancy Medical History: Reports: Hx Skin Cancer - Excised from her nose. GI Medical History: Reports: Hx Gastroesophageal Reflux Disease Musculoskeletal Medical History: Reports Hx Arthritis, Reports Hx Musculoskeletal Deformity Psychiatric Medical History: Reports: Hx Anxiety, Hx Depression Infectious Medical History: Reports: Hx MRSA - Quite distant history Past Surgical History: Reports: Hx Abdominal Surgery, Hx Appendectomy, Hx Cholecystectomy, Hx Hysterectomy, Hx Tonsillectomy, Hx Vascular Surgery, Other - Cardiac loop recorder, bilateral cataract surgery - Immunizations Hx Diphtheria, Pertussis, Tetanus Vaccination: No Hx Pneumococcal Vaccination: 04/29/13 <ISHAAN MARCANO - Last Filed: 08/04/18 19:00> Review of Systems - Review of Systems Cardiovascular: Chest pain Respiratory: Cough Gastrointestinal: Nausea, Vomiting -: Yes All other systems reviewed and negative <ISHAAN MARCANO - Last Filed: 08/04/18 19:00> Physical Exam <ISHAAN MARCANO - Last Filed: 08/04/18 19:00> <FARRUKH AVILA - Last Filed: 08/05/18 01:41> - Vital signs Vitals: Resp BP Pulse Ox 18 156/90 H 96 08/04/18 16:27 08/04/18 16:27 08/04/18 16:27 - Notes Notes: PHYSICAL EXAMINATION: GENERAL: Well-appearing, well-nourished and in no acute distress. HEAD: Atraumatic, normocephalic. EYES: Pupils equal round and reactive to light, extraocular movements intact, conjunctiva are normal. ENT: Nares patent, oropharynx clear without exudates. Moist mucous membranes. NECK: Normal range of motion, supple without lymphadenopathy LUNGS: Breath sounds clear to auscultation bilaterally and equal. No wheezes rales or rhonchi. HEART: Regular rate and rhythm without murmurs ABDOMEN: Soft, nontender, nondistended abdomen. No guarding, no rebound. No masses appreciated. Female : No CVA tenderness. Musculoskeletal: Normal range of motion, no pitting or edema. No cyanosis. Reproducible chest pain to the left chest wall with palpation. NEUROLOGICAL: Cranial nerves grossly intact. Normal speech, normal gait. Normal sensory, motor exams PSYCH: Normal mood, normal affect. SKIN: Warm, Dry, normal turgor, no rashes or lesions noted. (ISHAAN MARCANO) Course - Laboratory Result Diagrams: 08/04/18 16:30 08/04/18 16:30 <ISHAAN MARCANO - Last Filed: 08/04/18 19:00> - Laboratory Result Diagrams: 08/04/18 16:30 08/04/18 16:30 <FARRUKH AVILA - Last Filed: 08/05/18 01:41> - Re-evaluation Re-evalutation: On initial evaluation patient reports her pain is 5/5. She states it feels like somebody kicked her in her left chest. Her pain is reproducible with palpation. She does not appear to be in any acute distress. Her vital signs are stable. CBC with abnormally elevated white blood cells at 44,000 however this is consistent for patient dating all the way back to 2014. Potassium mildly elevated at 5.2 otherwise metabolic panel is unremarkable. BNP 459. Cardiac enzymes are negative. Chest x-ray is unremarkable with no signs of infiltrates or pneumothorax. EKG is a sinus rhythm, rate of 93, no ST segment elevations or depressions, unchanged from previous EKG done on 07/15/18. 08/04/18 19:10 Bedside handoff given to nitesh Bustos. (ISHAAN MARCANO) 08/04/18 23:25 Patient sleeping and easily aroused on my evaluation. She has chest wall pain on exam but she states she feels much better after being medicated again. No cough, no rales, no complaints other than being hungry and not having eaten in a long time. She does live with her daughter, she does state that she could use more help around the house especially when her daughter is not feeling well. After discussion comp field case manager consult was placed. Patient states full agreement with this. CTA is negative for any acute findings, 2 sets of negative troponins, patient with occasional dry cough and reproducible chest wall pain for the past 3 days. Discussed various options, patient states she is comfortable going home. She just requests food again. On evaluation patient is not tachycardic, hypotensive , or hypoxic. Low suspicion of ACS, no evidence of PE or dissection. I discussed patient's urinalysis which is not overtly infected but does have white blood cells. Patient states over the past day or so she is starting to have urinary frequency and feels like she is developing a urinary tract infection. Patient will be fed, provided with antibiotics, and discharged home. Discussed return precautions. Patient states understanding and agreement with plan. 08/05/18 01:40 Blood glucose recheck shows blood sugar in the 190s. Patient is being fed. We have attempted to reach her daughter for patient to be picked up to go home 4 times now. Nobody is answering the phone. Pending discharge home versus social hold at this time. (FARRUKH AVILA) - Vital Signs Vital signs: Temp Pulse Resp BP Pulse Ox 14 135/71 H 91 L 08/04/18 23:01 08/04/18 23:01 08/04/18 23:01 - Laboratory Laboratory results interpreted by me: 08/04/18 08/04/18 08/04/18 16:30 16:30 16:30 WBC 44.7 H* RBC 7.55 H MCV 61 L MCH 18.8 L MCHC 30.6 L RDW 23.1 H Seg Neuts % (Manual) 92 H Lymphocytes % (Manual) 5 L Abs Neuts (Manual) 41.1 H Potassium 5.2 H Glucose 347 H POC Glucose Calcium 10.5 H Direct Bilirubin 0.5 H Alkaline Phosphatase 243 H Creatine Kinase 22 L NT-Pro-B Natriuret Pep 459 H Total Protein 8.4 H Urine Glucose (UA) Urine Urobilinogen Ur Leukocyte Esterase 08/04/18 08/04/18 08/04/18 16:30 18:40 23:28 WBC RBC MCV MCH MCHC RDW Seg Neuts % (Manual) Lymphocytes % (Manual) Abs Neuts (Manual) Potassium Glucose POC Glucose 328 H 196 H Calcium Direct Bilirubin Alkaline Phosphatase Creatine Kinase NT-Pro-B Natriuret Pep Total Protein Urine Glucose (UA) 50 H Urine Urobilinogen 4.0 H Ur Leukocyte Esterase SMALL H Discharge <ISHAAN MARCANO - Last Filed: 08/04/18 19:00> <FARRUKH AVILA - Last Filed: 08/05/18 01:41> - Discharge Clinical Impression: Cough, Chest wall pain, Urinary frequency Chest pain Qualifiers: Chest pain type: unspecified Qualified Code(s): R07.9 - Chest pain, unspecified Condition: Stable Disposition: HOME, SELF-CARE Additional Instructions: Your symptoms appear to be coming from strain of the chest wall, the area between your ribs, apply heat to the area, take Tylenol for pain, this resolves with time. Your workup indicates possible developing urinary tract infection, CAT scan of the chest does not show any concerning abnormalities, remaining workup nonspecific. Take Keflex antibiotic as prescribed. Follow-up with your primary care provider within the next 1-2 days for recheck. Return if you worsen including vomiting, fever, confusion, difficulty breathing, increased pain, or any other concerning or worsening symptoms. Prescriptions: Cephalexin Monohydrate [Keflex 500 mg Capsule] 500 mg PO BID #14 capsule Referrals: SOFI KAMARA MD [Primary Care Provider] - Follow up as needed
[2018-08-04 17:16] LABS: ALANINE AMINOTRANSFERASE 14 U/L (9-52); ALBUMIN 4.1 g/dL (3.5-5.0); ALKALINE PHOSPHATASE 243 U/L (38-126); ANION GAP 14 (5-19); ASPARTATE AMINO TRANSFERASE 34 U/L (14-36); BILIRUBIN,DIRECT 0.5 mg/dL (0.0-0.4); BILIRUBIN,TOTAL 0.9 mg/dL (0.2-1.3); BLOOD UREA NITROGEN 19 mg/dL (7-20); CALCIUM 10.5 mg/dL (8.4-10.2); CARBON DIOXIDE 28 mmol/L (22-30); CHLORIDE 100 mmol/L (98-107); CREATINE KINASE 22 U/L (30-135); GLUCOSE 347 mg/dL (75-110); POTASSIUM 5.2 mmol/L (3.6-5.0); SODIUM 141.8 mmol/L (137-145); TOTAL PROTEIN 8.4 g/dL (6.3-8.2)
[2018-08-04 17:28] LABS: HEMATOCRIT 46.3 % (36.0-47.0); HEMOGLOBIN 14.2 g/dL (12.0-15.5); MEAN CORPUSCULAR HEMOGLOBIN 18.8 pg (27.0-33.4); MEAN CORPUSCULAR HGB CONC 30.6 g/dL (32.0-36.0); MEAN CORPUSCULAR VOLUME 61 fl (80-97); PLATELET COUNT 371 10^3/uL (150-450); RED BLOOD COUNT 7.55 10^6/uL (3.72-5.28); RED CELL DISTRIBUTION WIDTH 23.1 % (11.5-14.0)
[2018-08-04 17:47] LABS: CREATINE KINASE MB 0.46 ng/mL (<4.55); NT PRO BNP 459 pg/mL (<450)
[2018-08-04 17:48] LABS: ABSOLUTE LYMPHOCYTES# (MANUAL) 2.2 10^3/uL (0.5-4.7); ABSOLUTE MONOCYTES # (MANUAL) 1.3 10^3/uL (0.1-1.4); ABSOLUTE NEUTROPHILS# (MANUAL) 41.1 10^3/uL (1.7-8.2); BASOPHILS % (MANUAL) 0 % (0-2); EOSINOPHILS % (MANUAL) 0 % (0-6); LYMPHOCYTES % (MANUAL) 5 % (13-45); MONOCYTES % (MANUAL) 3 % (3-13); SEGMENTED NEUTROPHILS % (MAN) 92 % (42-78); TOTAL CELLS COUNTED 100; TROPONIN I < 0.012 ng/mL
[2018-08-04 17:51] LABS: ANISOCYTOSIS 3+; HYPOCHROMASIA 1+; OVALOCYTES 1+; PLATELET COMMENT ADEQUATE; POIKILOCYTOSIS 1+; TOXIC VACUOLATION PRESENT
[2018-08-04 17:59] LABS: WHITE BLOOD COUNT 44.7 10^3/uL (4.0-10.5)
[2018-08-04 19:02] LABS: APPEARANCE,URINE SLIGHTLY-CLOUDY; BILIRUBIN,URINE NEGATIVE (NEGATIVE); CALCIUM OXALATE CRYSTALS,URINE RARE /HPF; COLOR,URINE YELLOW; GLUCOSE, URINE 50 mg/dL (NEGATIVE); KETONES,URINE NEGATIVE (NEGATIVE); LEUKOCYTE ESTERASE,URINE SMALL (NEGATIVE); NITRITE,URINE NEGATIVE (NEGATIVE); PROTEIN,URINE NEGATIVE (NEGATIVE); URINE SPECIFIC GRAVITY 1.015
[2018-08-04] MEDS ORDERED: HYDROCODONE/ACETAMINOPHEN 5-325 MG TABLET PO ONE (22:28)
--- NOTE | 2018-08-04 23:00 | RADIOLOGY REPORT (SQ) ---
CT CHEST ANGIOGRAPHY WITHOUT THEN WITH IV CONTRAST HISTORY: Shortness of breath. Evaluate for pulmonary embolism. COMPARISON: None. TECHNIQUE: CT angiogram of the chest with IV contrast. 3-D MIP images were obtained in coronal and sagittal reconstructions. This exam was performed according to our departmental dose-optimization program, which includes automated exposure control, adjustment of the mA and/or kV according to patient size and/or use of iterative reconstruction technique. FINDINGS: The thyroid gland is unremarkable. No mediastinal, hilar, or axillary adenopathy is seen. The heart size is normal. No pericardial effusion is seen. There is no thoracic aortic aneurysm or dissection. No acute pulmonary embolism is seen in the main or segmental branches. No consolidation, pleural effusion, or pneumothorax is identified. There are very mild emphysematous changes scattered throughout the lungs. Limited views of the upper abdomen demonstrate a small hiatal hernia, prior cholecystectomy, and a partially visualized right renal cyst.. The osseous structures are intact. IMPRESSION: No acute pulmonary embolism.
[2018-08-04] MEDS ORDERED: CEPHALEXIN 500 MG CAPSULE PO ONE (23:28)
[2018-08-05] MEDS ORDERED: METOPROLOL TARTRATE 50 MG TABLET PO ONE (06:33)
[2018-08-05] MEDS ORDERED: SITAGLIPTIN PHOSPHATE 50 MG TABLET PO SCH (10:00)
[2018-08-05] MEDS ORDERED: METOPROLOL TARTRATE 50 MG TABLET PO SCH (10:00)
[2018-08-05] MEDS ORDERED: CLOPIDOGREL BISULFATE 75 MG TABLET PO SCH (10:00)
[2018-08-05] MEDS ORDERED: FUROSEMIDE 40 MG TABLET PO SCH (10:00)
[2018-08-05] MEDS ORDERED: CEPHALEXIN 500 MG CAPSULE PO SCH (10:00)
[2018-08-05] MEDS ORDERED: GLIMEPIRIDE 1 MG TABLET PO SCH (10:00)
[2018-08-05] MEDS ORDERED: RANOLAZINE 500 MG TAB.SR.12H PO SCH (10:00)
[2018-08-05] MEDS ORDERED: LOSARTAN POTASSIUM 50 MG TABLET PO SCH (10:00)
[2018-08-05 11:25] VITALS: BP 149/62
[2018-08-06] MEDS ORDERED: METOPROLOL TARTRATE 50 MG TABLET PO SCH (10:00)
--- NOTE | 2018-08-06 10:55 | EKG REPORT ---
SEVERITY:- ABNORMAL ECG - SINUS RHYTHM CONSIDER LEFT VENTRICULAR HYPERTROPHY PROBABLE INFERIOR INFARCT, OLD ANTERIOR Q WAVES, POSSIBLY DUE TO LVH VS ANT OK OLD : Confirmed by: Bud Medina 06-Aug-2018 10:54:31
== END 2018-08-05 11:14 | disposition home or self-care (01) ==
LOC: ER 16:19
DX: R07.89 Other chest pain (principal); R35.0 Frequency of micturition; R42 Dizziness and giddiness; R05 Cough; R11.2 Nausea with vomiting, unspecified; I11.0 Hypertensive heart disease with heart failure; I50.9 Heart failure, unspecified; I25.2 Old myocardial infarction; I25.10 Atherosclerotic heart disease of native coronary artery without angina pectoris; E11.9 Type 2 diabetes mellitus without complications; E78.00 Pure hypercholesterolemia, unspecified; Z86.711 Personal history of pulmonary embolism; Z80.1 Family history of malignant neoplasm of trachea, bronchus and lung; Z80.9 Family history of malignant neoplasm, unspecified; Z85.828 Personal history of other malignant neoplasm of skin; Z86.14 Personal history of Methicillin resistant Staphylococcus aureus infection; F41.9 Anxiety disorder, unspecified; F32.9 Major depressive disorder, single episode, unspecified
CPT/HCPCS: 99285; 96374; 96375; 36415; 82553; 82962; 82550; 85025; 80053; 81001; 84484; 83880; 71045; 71275; 93005; 93010; A9270 ×4; J3010; J2405

== ENCOUNTER 2018-08-09 17:45 | Emergency (ER) | payer MEDICARE, OTHER ==
[2018-08-09] MEDS ORDERED: ACETAMINOPHEN 650 MG SUPP.RECT PR ONE (18:18)
[2018-08-09] MEDS ORDERED: ACETAMINOPHEN 325 MG TABLET ONE (18:19)
[2018-08-09] MEDS ORDERED: ACETAMINOPHEN 325 MG TABLET PO ONE (18:20)
--- NOTE | 2018-08-09 20:53 | ER Document Report ---
ED Medical Screen (RME) - General Chief Complaint: Fall Stated Complaint: FALL Time Seen by Provider: 08/09/18 20:50 Notes: 83-year-old female with chief complaint of fall. She states she turned, twisted her right ankle, fell, hit her right ribs against a table and then fell and hit her head. She reports pain in both hips (worse on the right), pain in the right ankle, pain in her neck and head. No wounds. She denies loss of consciousness, vomiting, confusion, but she is on Plavix. TRAVEL OUTSIDE OF THE [place] IN LAST 30 DAYS: No - Related Data Allergies/Adverse Reactions: morphine Allergy (Mild, Verified 08/04/18 16:32) Past Medical History - Past Medical History Cardiac Medical History: Reports: Hx Congestive Heart Failure - Diastolic, Hx Coronary Artery Disease, Hx Heart Attack - x2, Hx Hypercholesterolemia, Hx Hypertension, Hx Pulmonary Embolism - Distant history Neurological Medical History: Denies: Hx Seizures Endocrine Medical History: Reports: Hx Diabetes Mellitus Type 2 Renal/ Medical History: Denies: Hx Peritoneal Dialysis Malignancy Medical History: Reports: Hx Skin Cancer - Excised from her nose. GI Medical History: Reports: Hx Gastroesophageal Reflux Disease Musculoskeltal Medical History: Reports Hx Arthritis, Reports Hx Musculoskeletal Deformity Psychiatric Medical History: Reports: Hx Anxiety, Hx Depression Infectious Medical History: Reports: Hx MRSA - Quite distant history Past Surgical History: Reports: Hx Abdominal Surgery, Hx Appendectomy, Hx Cholecystectomy, Hx Hysterectomy, Hx Tonsillectomy, Hx Vascular Surgery, Other - Cardiac loop recorder, bilateral cataract surgery - Immunizations Hx Diphtheria, Pertussis, Tetanus Vaccination: No History of Influenza Vaccine for 05/2017 - 10/2017 Season: Yes Influenza Administration Date for 05/2017 - 10/2017 Season: 05/29/17 Physical Exam - Vital signs Vitals: Temp Pulse Resp BP Pulse Ox 99.2 F 85 20 94/52 L 95 08/09/18 18:11 08/09/18 18:11 08/09/18 18:11 08/09/18 18:11 08/09/18 18:11 - Respiratory Chest status: Tender - Tender over right lower ribs without bruising or crepitus , chest unremarkable otherwise - Neurological Orientation: AAOx4 Ziyad Coma Scale Eye Opening: Spontaneous Ziyad Coma Scale Verbal: Oriented [place] Coma Scale Motor: Obeys Commands [place] Coma Scale Total: 15 Course - Vital Signs Vital signs: Temp Pulse Resp BP Pulse Ox 98.8 F 78 20 139/60 H 96 08/09/18 20:50 08/09/18 20:50 08/09/18 20:50 08/09/18 20:50 08/09/18 20:50 Doctor's Discharge - Discharge Referrals: SOFI GUERRIER MD [Primary Care Provider] - Follow up as needed
--- NOTE | 2018-08-09 21:35 | RADIOLOGY REPORT (SQ) ---
EXAM DESCRIPTION: XR RIBS UNILATERAL WITH CHEST COMPLETED DATE/TME: 08/09/2018 20:50 CLINICAL HISTORY: 83 years, Female, fall, pain Findings: Heart is mildly enlarged. Aortic arch is calcified. No consolidations or pleural effusions. No pulmonary edema or pneumothorax. The right ribs appear intact with no evidence for displaced fracture. IMPRESSION: No acute disease.
--- NOTE | 2018-08-09 21:36 | RADIOLOGY REPORT (SQ) ---
EXAM DESCRIPTION: XR HIP 1 VIEW BILATERAL COMPLETED DATE/TME: 08/09/2018 20:50 CLINICAL HISTORY: 83 years, Female, fall, pain Findings: Bony alignment is anatomic. No fracture or dislocation. Bilateral hips are intact. Soft tissues are unremarkable. IMPRESSION: No fracture.
--- NOTE | 2018-08-09 21:38 | RADIOLOGY REPORT (SQ) ---
EXAM DESCRIPTION: XR ANKLE 3 OR MORE VIEWS COMPLETED DATE/TME: 08/09/2018 20:51 CLINICAL HISTORY: 83 years, Female, twisted ankle and fell Findings: Bony alignment is anatomic. No fracture or dislocation. Soft tissues are unremarkable. Ankle mortise is not widened. IMPRESSION: No fracture.
--- NOTE | 2018-08-09 21:56 | RADIOLOGY REPORT (SQ) ---
EXAM DESCRIPTION: CT CERVICAL SPINE WITHOUT IV CONTRAST COMPLETED DATE/TME: 08/09/2018 20:50 CLINICAL HISTORY: 83 years, Female, head injury, pain This exam was performed according to our departmental dose-optimization program which includes automated exposure control, adjustment of the mA and/or kVp according to patient size and/or use of iterative reconstruction technique where applicable. FINDINGS: Vertebral body heights are intact. Alignment is intact. No subluxation. Mild multilevel degenerative changes. No significant prevertebral soft tissue swelling. The facets are normally aligned. The odontoid process is intact. IMPRESSION: No fracture or subluxation. Mild degenerative changes.
--- NOTE | 2018-08-09 21:57 | RADIOLOGY REPORT (SQ) ---
EXAM DESCRIPTION: CT HEAD WITHOUT IV CONTRAST COMPLETED DATE/TME: 08/09/2018 20:50 CLINICAL HISTORY: 83 years, Female, head injury, on plavix This exam was performed according to our departmental dose-optimization program which includes automated exposure control, adjustment of the mA and/or kVp according to patient size and/or use of iterative reconstruction technique where applicable. FINDINGS: No acute intracranial hemorrhage, mass effect or midline shift. No extra-axial fluid collections. Ventricles and subarachnoid spaces are mildly dilated consistent with cerebral atrophy. Moderate patchy hypodense areas in the periventricular white matter of both cerebral hemispheres consistent with chronic small vessel ischemic changes. Visualized paranasal sinuses and the mastoid air cells are clear. The skull is intact. IMPRESSION: No acute intracranial hemorrhage. Moderate chronic ischemic changes.
--- NOTE | 2018-08-09 22:23 | ER Document Report ---
ED Fall - General Chief Complaint: Fall Stated Complaint: FALL Time Seen by Provider: 08/09/18 20:50 Notes: Patient is a 83-year-old female with chief complaint of fall. She states she turned, twisted her right ankle, fell, hit her right ribs against a table and then fell and hit her head. She reports pain in both hips (worse on the right) , pain in the right ankle, pain in her neck and head. No wounds. She denies loss of consciousness, vomiting, confusion, but she is on Plavix. TRAVEL OUTSIDE OF THE [place] IN LAST 30 DAYS: No - Related data Allergies/Adverse Reactions: morphine Allergy (Mild, Verified 08/04/18 16:32) Past Medical History - General Information source: Patient - Social History Smoking Status: Never Smoker Frequency of alcohol use: Rare Drug Abuse: None Lives with: Family Family History: CAD, COPD, DM, Hyperlipidemia, Hypertension, Malignancy - Father with lung cancer. Cousin with leukemia. 3 brothers with unknown cancers. Mother also of unknown type of cancer., Other Patient has suicidal ideation: No Patient has homicidal ideation: No - Past Medical History Cardiac Medical History: Reports: Hx Congestive Heart Failure - Diastolic, Hx Coronary Artery Disease, Hx Heart Attack - x2, Hx Hypercholesterolemia, Hx Hypertension, Hx Pulmonary Embolism - Distant history Neurological Medical History: Denies: Hx Seizures Endocrine Medical History: Reports: Hx Diabetes Mellitus Type 2 Renal/ Medical History: Denies: Hx Peritoneal Dialysis Malignancy Medical History: Reports: Hx Skin Cancer - Excised from her nose. GI Medical History: Reports: Hx Gastroesophageal Reflux Disease Musculoskeletal Medical History: Reports Hx Arthritis, Reports Hx Musculoskeletal Deformity Psychiatric Medical History: Reports: Hx Anxiety, Hx Depression Infectious Medical History: Reports: Hx MRSA - Quite distant history Past Surgical History: Reports: Hx Abdominal Surgery, Hx Appendectomy, Hx Cholecystectomy, Hx Hysterectomy, Hx Tonsillectomy, Hx Vascular Surgery, Other - Cardiac loop recorder, bilateral cataract surgery - Immunizations Hx Diphtheria, Pertussis, Tetanus Vaccination: No Hx Pneumococcal Vaccination: 04/29/13 Review of Systems - Review of Systems Constitutional: No symptoms reported EENT: No symptoms reported Cardiovascular: No symptoms reported Respiratory: No symptoms reported Gastrointestinal: No symptoms reported Genitourinary: No symptoms reported Female Genitourinary: No symptoms reported Musculoskeletal: See HPI Skin: No symptoms reported Hematologic/Lymphatic: No symptoms reported Neurological/Psychological: See HPI Physical Exam - Vital signs Vitals: Temp Pulse Resp BP Pulse Ox 99.2 F 85 20 94/52 L 95 08/09/18 18:11 08/09/18 18:11 08/09/18 18:11 08/09/18 18:11 08/09/18 18:11 - Notes Notes: GENERAL: Alert, interacts well. No acute distress. HEAD: Normocephalic, atraumatic. EYES: Pupils equal, round, and reactive to light. Extraocular movements intact. ENT: Oral mucosa moist, tongue midline. Oropharynx unremarkable. Airway patent. Nares patent, no nasal septal hematoma, TM's intact. NECK: Full range of motion. Supple. Trachea midline. LUNGS: Clear to auscultation bilaterally, no wheezes, rales, or rhonchi. No respiratory distress. Very mild pain with palpation over the right lateral ribs at the lower aspect, no crepitus, bruising, swelling, or other abnormality noted. HEART: Regular rate and rhythm. No murmur ABDOMEN: Soft, non-tender. Non-distended. Bowel sounds present in all 4 quadrants. GENITOURINARY: Deferred EXTREMITIES: Moves all 4 extremities spontaneously. No edema, normal radial and dorsalis pedis pulses bilaterally. No cyanosis. Pain with palpation over the right proximal femur and minimally over the hips otherwise, range of motion intact. Mild pain over the lateral malleolus of the right ankle without swelling. BACK: no cervical, thoracic, lumbar midline tenderness. No saddle anesthesia, normal distal neurovascular exam. NEUROLOGICAL: Alert and oriented x3. Normal speech. [cranial nerves II through XII grossly intact]. PSYCH: Normal affect, normal mood. SKIN: Warm, dry, normal turgor. No rashes or lesions noted. Course - Re-evaluation Re-evalutation: Patient is alert, well-appearing, I do not see signs of trauma over her head, body. She is neurologically intact, she is not confused. She is pleasant and talkative. Vital signs are unremarkable. She states she has no complaints on reevaluation after just receiving Tylenol. CAT scan of the head, neck, x-rays of the ribs, chest, hips, ankle with no acute finding. Patient ambulates without difficulty although she does require assistance and normally ambulates with a walker. She states she is comfortable going home. She lives with her daughter. Discussed results, recommendations, expectations, and return precautions in detail. Patient states satisfaction and agreement. - Vital Signs Vital signs: Temp Pulse Resp BP Pulse Ox 97.9 F 78 18 134/62 H 99 08/09/18 22:28 08/09/18 22:28 08/09/18 22:28 08/09/18 22:28 08/09/18 22:28 Discharge - Discharge Clinical Impression: Rib pain on right side, Neck pain Fall Qualifiers: Encounter type: initial encounter Qualified Code(s): W19.XXXA - Unspecified fall, initial encounter Head injury Qualifiers: Encounter type: initial encounter Qualified Code(s): S09.90XA - Unspecified injury of head, initial encounter Hip pain Qualifiers: Laterality: bilateral Qualified Code(s): M25.551 - Pain in right hip Right ankle pain Qualifiers: Chronicity: acute Qualified Code(s): M25.571 - Pain in right ankle and joints of right foot Condition: Stable Disposition: HOME, SELF-CARE Additional Instructions: Your CAT scan of the head and neck did not show any acute findings. X-rays of the hip, ankle, and ribs do not show fractures or concerning abnormalities. You will likely be progressively sore for the next 2 days, rest, apply heat to your neck, take Tylenol for pain. Follow-up closely with primary care provider. Return to the emergency department for any concerning symptoms, see head injury precautions listed below. At this point, there is no evidence that your head injury is serious. Observation is necessary, however. Take only clear liquids for the first few hours, unless told otherwise by the doctor. If no pain medication was prescribed, you may take acetaminophen according to the directions on the bottle. Do not take any medication that may alter your level of alertness (unless you've discussed it with the doctor first) . Limit activity for the first 24 hours. Bed rest is best. During the first 24 hours, check to see approximately every two to three hours that the patient is easily arousable, responds normally, and can perform common tasks such as walking without difficulty. Contact your doctor or go to the hospital if any of the following things occur: Persistent vomiting, difficulty in arousing the patient, worsening or continued headache, or failure to improve as expected. Head injuries can cause symptoms that persist for a few days or even a few weeks. Referrals: SOFI GUERRIER MD [Primary Care Provider] - Follow up as needed
[2018-08-09 22:29] VITALS: BP 134/62
== END 2018-08-09 22:34 | disposition home or self-care (01) ==
LOC: ER 17:45
DX: S09.90XA Unspecified injury of head, initial encounter (principal); M25.551 Pain in right hip; M25.552 Pain in left hip; M25.571 Pain in right ankle and joints of right foot; R07.81 Pleurodynia; M54.2 Cervicalgia; R51 Headache; W01.190A Fall on same level from slipping, tripping and stumbling with subsequent striking against furniture, initial encounter; Y92.009 Unspecified place in unspecified non-institutional (private) residence as the place of occurrence of the external cause; E11.9 Type 2 diabetes mellitus without complications; I25.10 Atherosclerotic heart disease of native coronary artery without angina pectoris; I10 Essential (primary) hypertension; I25.2 Old myocardial infarction; Z79.02 Long term (current) use of antithrombotics/antiplatelets; Z88.5 Allergy status to narcotic agent
CPT/HCPCS: 99284; 73610; 73522; 71101; 70450; 72125; A9270

== ENCOUNTER 2018-09-25 20:59 | Observation (INO) | payer MEDICARE, OTHER ==
--- NOTE | 2018-09-25 22:14 | RADIOLOGY REPORT (SQ) ---
EXAM DESCRIPTION: XR LEFT FOOT 3 OR MORE VIEWS COMPLETED DATE/TME: 09/25/2018 21:13 CLINICAL HISTORY: 83 years, Female, pain swelling in toe COMPARISON: None. NUMBER OF VIEWS: TECHNIQUE: LIMITATIONS: None. FINDINGS: There is fracture involving the distal phalanx of the second toe, with mild displacement. I see no additional fractures. There is a plantar calcaneal spur. IMPRESSION: Fracture of the distal phalanx of the second toe. copyright 2010 [employer]- All Rights Reserved
--- NOTE | 2018-09-25 22:16 | RADIOLOGY REPORT (SQ) ---
EXAM DESCRIPTION: XR RIGHT FOOT 3 OR MORE VIEWS COMPLETED DATE/TME: 09/25/2018 00:00 CLINICAL HISTORY: 83 years, Female, FOOT PAIN COMPARISON: None. NUMBER OF VIEWS: TECHNIQUE: LIMITATIONS: None. FINDINGS: No fracture or dislocation. There are no significant degenerative changes. There is a plantar calcaneal spur. IMPRESSION: Plantar calcaneal spur. copyright 2010 [employer] [facility] [employer]- All Rights Reserved
[2018-09-26] MEDS ORDERED: ASPIRIN 81 MG TABLET, CHEWABLE PO ONE (00:53)
--- NOTE | 2018-09-26 00:57 | ER Document Report ---
ED Medical Screen (RME) - General Chief Complaint: Foot Pain Stated Complaint: LEFT FOOT TOE PAIN Time Seen by Provider: 09/26/18 00:51 Primary Care Provider: SOFI GUERRIER MD [Primary Care Provider] - Follow up as needed Mode of Arrival: Medic Information source: Patient Notes: 83-year-old female presented to ED for complaint of chest pain off and on all day. She states she called the EMS because of the chest pain but she also has the second toe on both feet painful swollen and discolored. Patient states she has had history of strokes x2 and heart attacks x2 the second heart attack was about a year ago. She also has high blood pressure cholesterol peripheral vascular disease. She had a tonsillectomy appendectomy hysterectomy hemorrhoidectomy and a cardiac cath and a GI bleed. She states she has had multiple endoscopies and colonoscopies. She states the main reason she came to the emergency room with her chest pain. She states she also has had so far is x-rays of her feet. She states she did not injure her feet but they have been painful. When she first came in someone order the x-rays of her second toe. I have ordered chest x-ray EKG aspirin and cardiac labs. Patient is alert and oriented respirations regular and unlabored answering questions appropriately. She states her daughter center in the ambulance and she is to be called if she gets discharged to come and get her. I have greeted and performed a rapid initial assessment of this patient. A comprehensive ED assessment and evaluation of the patient, analysis of test results and completion of medical decision making process will be conducted by an additional ED providers. TRAVEL OUTSIDE OF THE [place] IN LAST 30 DAYS: No - Related Data Allergies/Adverse Reactions: morphine Allergy (Mild, Verified 08/04/18 16:32) Past Medical History - Past Medical History Cardiac Medical History: Reports: Hx Congestive Heart Failure - Diastolic, Hx Coronary Artery Disease, Hx Heart Attack - x2, Hx Hypercholesterolemia, Hx Hypertension, Hx Pulmonary Embolism - Distant history Neurological Medical History: Denies: Hx Seizures Endocrine Medical History: Reports: Hx Diabetes Mellitus Type 2 Renal/ Medical History: Denies: Hx Peritoneal Dialysis Malignancy Medical History: Reports: Hx Skin Cancer - Excised from her nose. GI Medical History: Reports: Hx Gastroesophageal Reflux Disease Musculoskeltal Medical History: Reports Hx Arthritis, Reports Hx Musculoskeletal Deformity Psychiatric Medical History: Reports: Hx Anxiety, Hx Depression Infectious Medical History: Reports: Hx MRSA - Quite distant history Past Surgical History: Reports: Hx Abdominal Surgery, Hx Appendectomy, Hx Cholecystectomy, Hx Hysterectomy, Hx Tonsillectomy, Hx Vascular Surgery, Other - Cardiac loop recorder, bilateral cataract surgery - Immunizations Hx Diphtheria, Pertussis, Tetanus Vaccination: No History of Influenza Vaccine for 05/2017 - 10/2017 Season: Yes Influenza Administration Date for 05/2017 - 10/2017 Season: 05/29/17 Physical Exam - Vital signs Vitals: Temp Pulse Resp BP Pulse Ox 98.2 F 106 H 18 153/62 H 93 09/25/18 21:05 09/25/18 21:05 09/25/18 21:05 09/25/18 21:05 09/25/18 21:05 Course - Vital Signs Vital signs: Temp Pulse Resp BP Pulse Ox 98.2 F 106 H 18 153/62 H 93 09/25/18 21:05 09/25/18 21:05 09/25/18 21:05 09/25/18 21:05 09/25/18 21:05 Doctor's Discharge - Discharge Referrals: SOFI GUERRIER MD [Primary Care Provider] - Follow up as needed
[2018-09-26] MEDS ORDERED: OXYCODONE-ACETAMINOPHEN 5-325 MG TABLET PO ONE ×2 (01:39→05:29)
[2018-09-26] MEDS ORDERED: ONDANSETRON HCL INJ/PF 4 MG/2 ML SDV IV ONE (01:39)
--- NOTE | 2018-09-26 01:44 | ER Document Report ---
ED General - General Chief Complaint: Foot Pain Stated Complaint: LEFT FOOT TOE PAIN Time Seen by Provider: 09/26/18 00:51 Mode of Arrival: Medic Notes: Patient is an 83-year-old female that comes to the emergency department for chief complaint of chest pain. She states that symptoms started around 11 AM, felt like pressure like something was sitting on her chest, she felt nauseated and she vomited. She denies any abdominal pain, headache, shortness of breath, fever/chills. She states that she also has pain in both feet where she stubbed her toes, worse on the right. Patient comes from home, has a history of hypertension, hyperlipidemia, CVA, ND x2 (most recent ND with last year), type 2 diabetes, she and she is on Plavix. Her tank builder helper is Dr. Medina she tells me. Primary care is Dr. Kamara. TRAVEL OUTSIDE OF THE [place] IN LAST 30 DAYS: No - Related Data Allergies/Adverse Reactions: morphine Allergy (Mild, Verified 08/04/18 16:32) Past Medical History - General Information source: Patient - Social History Smoking Status: Never Smoker Frequency of alcohol use: None Drug Abuse: None Lives with: Family Family History: CAD, COPD, DM, Hyperlipidemia, Hypertension, Malignancy - Father with lung cancer. Cousin with leukemia. 3 brothers with unknown cancers. Mother also of unknown type of cancer., Other - Past Medical History Cardiac Medical History: Reports: Hx Congestive Heart Failure - Diastolic, Hx Coronary Artery Disease, Hx Heart Attack - x2, Hx Hypercholesterolemia, Hx Hypertension, Hx Pulmonary Embolism - Distant history Neurological Medical History: Denies: Hx Seizures Endocrine Medical History: Reports: Hx Diabetes Mellitus Type 2 Renal/ Medical History: Denies: Hx Peritoneal Dialysis Malignancy Medical History: Reports: Hx Skin Cancer - Excised from her nose. GI Medical History: Reports: Hx Gastroesophageal Reflux Disease Musculoskeletal Medical History: Reports Hx Arthritis, Reports Hx Musculoskeletal Deformity Psychiatric Medical History: Reports: Hx Anxiety, Hx Depression Infectious Medical History: Reports: Hx MRSA - Quite distant history Past Surgical History: Reports: Hx Abdominal Surgery, Hx Appendectomy, Hx Cholecystectomy, Hx Hysterectomy, Hx Tonsillectomy, Hx Vascular Surgery, Other - Cardiac loop recorder, bilateral cataract surgery - Immunizations Hx Diphtheria, Pertussis, Tetanus Vaccination: No Hx Pneumococcal Vaccination: 04/29/13 Review of Systems - Review of Systems Constitutional: No symptoms reported EENT: No symptoms reported Cardiovascular: See HPI Respiratory: No symptoms reported Gastrointestinal: See HPI Genitourinary: No symptoms reported Female Genitourinary: No symptoms reported Musculoskeletal: See HPI Skin: No symptoms reported Hematologic/Lymphatic: No symptoms reported Neurological/Psychological: No symptoms reported Physical Exam - Vital signs Vitals: Temp Pulse Resp BP Pulse Ox 98.2 F 106 H 18 153/62 H 93 09/25/18 21:05 09/25/18 21:05 09/25/18 21:05 09/25/18 21:05 09/25/18 21:05 - Notes Notes: GENERAL: Alert, interacts well. No acute distress. HEAD: Normocephalic, atraumatic. EYES: Pupils equal, round, and reactive to light. Extraocular movements intact. ENT: Oral mucosa moist, tongue midline. Oropharynx unremarkable. Airway patent. Nares patent, no nasal septal hematoma, TM's intact. NECK: Full range of motion. Supple. Trachea midline. LUNGS: Clear to auscultation bilaterally, no wheezes, rales, or rhonchi. No respiratory distress. HEART: Regular rate and rhythm. No murmur ABDOMEN: Soft, non-tender. Non-distended. Bowel sounds present in all 4 quadra nts. GENITOURINARY: Deferred EXTREMITIES: Pain with ecchymosis over both second toes bilaterally, pain is worse on the left compared to the right. Good capillary refill and sensation. Unremarkable foot exam otherwise. BACK: no cervical, thoracic, lumbar midline tenderness. No saddle anesthesia, no rmal distal neurovascular exam. NEUROLOGICAL: Alert and oriented x3. Normal speech. [cranial nerves II through XII grossly intact]. PSYCH: Normal affect, normal mood. SKIN: Some erythema consistent with mild yeast infection over the abdominal/groin crease at the pannus Course - Re-evaluation Re-evalutation: Patient initially having intermittent chest pain in the center of her chest. She was given pain medicine for this and for her toe which is fractured, the fracture is about a week old per patient. Declined jay taping at this time. EKG showing inferior Q waves, slightly more prominent than prior but similar to prior, no T wave inversions or ST segment changes in consecutive leads. Sinus rhythm. Chest x-ray unremarkable. CBC showing chronic leukocytosis which is comparable to prior. Chemistry showing hyperglycemia without acidosis. On reevaluation patient's blood pressure is trending up, she missed her metop rolol tartrate at night, she was provided with this. However she is chest pain- free on reevaluation. Patient reevaluated again, medication was given 1 hour ago but she continues to be increasingly hypertensive, now systolic in the 230s. Still is chest pain- free. Given labetalol 10 mg IV with good results, systolic dropped into the 180s, then trended up to the 190s. Patient did have a stress test last year which was negative, however because of her age, multiple risk factors during cardiac history, along with her marked hypertension tonight discussed with patient possible admission. Treatment and possible admission discussed with Dr. Fernandez. He does recommend admission to telemetry. Patient follows with tank builder helper Dr. Medina. Patient states agreement with this plan, I called and s poke with the daughter at [phone], she states satisfaction and agreement with this plan. She will be coming later today. Spoke with Dr. Sandhu, hospitalist, patient will be admitted to telemetry observation. - Vital Signs Vital signs: Temp Pulse Resp BP Pulse Ox 98.2 F 102 H 20 195/84 H 93 09/26/18 02:07 09/26/18 02:07 09/26/18 05:24 09/26/18 05:24 09/26/18 05:24 - Laboratory Result Diagrams: 09/26/18 02:46 09/26/18 02:46 Laboratory results interpreted by me: 09/26/18 09/26/18 09/26/18 02:46 02:46 02:46 WBC 40.1 H* RBC 7.37 H Hct 47.9 H MCV 65 L MCH 19.9 L MCHC 30.6 L RDW 26.6 H Seg Neuts % (Manual) 85 H Band Neutrophils % 9 H Lymphocytes % (Manual) 0 L Monocytes % (Manual) 1 L Basophils % (Manual) 3 H Abs Neuts (Manual) 37.7 H Abs Basophils (Manual) 1.2 H APTT 41.7 H Glucose 336 H Alkaline Phosphatase 256 H - Diagnostic Test Radiology reviewed: Image reviewed, Reports reviewed Discharge - Discharge Clinical Impression: Uncontrolled hypertension Chest pain Qualifiers: Chest pain type: unspecified Qualified Code(s): R07.9 - Chest pain, unspecified Fractured toe Qualifiers: Encounter type: initial encounter Toe: lesser toe Fracture type: closed Phalanx: distal Fracture alignment: displaced Laterality: left Qualified Code(s): S92.532A - Displaced fracture of distal phalanx of left lesser toe(s), initial encounter for closed fracture Condition: Stable Disposition: ADMITTED OBSERVATION Admitting Provider: Hospitalist Unit Admitted: Telemetry
[2018-09-26] MEDS ORDERED: METOPROLOL TARTRATE 50 MG TABLET PO ONE (03:07)
[2018-09-26 03:10] LABS: HEMATOCRIT 47.9 % (36.0-47.0); HEMOGLOBIN 14.7 g/dL (12.0-15.5); MEAN CORPUSCULAR HEMOGLOBIN 19.9 pg (27.0-33.4); MEAN CORPUSCULAR HGB CONC 30.6 g/dL (32.0-36.0); MEAN CORPUSCULAR VOLUME 65 fl (80-97); PLATELET COUNT 315 10^3/uL (150-450); RED BLOOD COUNT 7.37 10^6/uL (3.72-5.28); RED CELL DISTRIBUTION WIDTH 26.6 % (11.5-14.0)
[2018-09-26 03:11] LABS: INTERNATIONAL RATION (INR) 1.14; PROTHROMBIN TIME 15.2 SEC (11.4-15.4)
[2018-09-26 03:12] LABS: PARTIAL THROMBOPLASTIN TIME 41.7 SEC (23.5-35.8)
--- NOTE | 2018-09-26 03:17 | RADIOLOGY REPORT (SQ) ---
EXAM DESCRIPTION: XR CHEST 1 VIEW COMPLETED DATE/TME: 09/26/2018 01:40 CLINICAL HISTORY: 83 years Female, chest pain COMPARISON: None. NUMBER OF VIEWS/TECHNIQUE: 1/AP FINDINGS: Increased lung volume, clear parenchyma, normal cardiac silhouette, and intact bony thorax. Atherosclerotic vascular disease. IMPRESSION: No acute cardiopulmonary findings.
[2018-09-26 03:19] LABS: ALANINE AMINOTRANSFERASE 20 U/L (9-52); ALKALINE PHOSPHATASE 256 U/L (38-126); ANION GAP 10 (5-19); ASPARTATE AMINO TRANSFERASE 21 U/L (14-36); BILIRUBIN,DIRECT 0.3 mg/dL (0.0-0.4); BILIRUBIN,TOTAL 0.8 mg/dL (0.2-1.3); BLOOD UREA NITROGEN 15 mg/dL (7-20); CALCIUM 9.8 mg/dL (8.4-10.2); CARBON DIOXIDE 28 mmol/L (22-30); CHLORIDE 104 mmol/L (98-107); GLUCOSE 336 mg/dL (75-110); POTASSIUM 4.4 mmol/L (3.6-5.0); TOTAL PROTEIN 7.5 g/dL (6.3-8.2)
[2018-09-26 03:28] LABS: ABSOLUTE LYMPHOCYTES# (MANUAL) 0.8 10^3/uL (0.5-4.7); ABSOLUTE MONOCYTES # (MANUAL) 0.4 10^3/uL (0.1-1.4); ABSOLUTE NEUTROPHILS# (MANUAL) 37.7 10^3/uL (1.7-8.2); BAND NEUTROPHILS % (MANUAL) 9 % (3-5); BASOPHILS % (MANUAL) 3 % (0-2); EOSINOPHILS % (MANUAL) 0 % (0-6); LYMPHOCYTES % (MANUAL) 0 % (13-45); MONOCYTES % (MANUAL) 1 % (3-13); SEGMENTED NEUTROPHILS % (MAN) 85 % (42-78); TOTAL CELLS COUNTED 100
[2018-09-26 03:36] LABS: ANISOCYTOSIS 3+; OVALOCYTES 1+; PLATELET COMMENT ADEQUATE; PLATELET LARGE PRESENT; POIKILOCYTOSIS 1+; POLYCHROMASIA SLIGHT
[2018-09-26] MEDS ORDERED: LABETALOL HCL INJ 20 MG/4 ML DISP.SYRIN IV ONE (04:30)
[2018-09-26] MEDS ORDERED: ONDANSETRON HCL INJ/PF 4 MG/2 ML SDV IV PRN (06:24)
[2018-09-26] MEDS ORDERED: ONDANSETRON 4 MG TAB.RAPDIS PO PRN (06:24)
[2018-09-26] MEDS ORDERED: MAG HYDROX/AL HYDROX/SIMETH SUSP 30 ML UDCUP PO PRN (06:24)
[2018-09-26] MEDS ORDERED: MAGNESIUM HYDROXIDE SUSP 30 ML UDCUP PO PRN (06:24)
--- NOTE | 2018-09-26 06:24 | PDOC H&P ---
History of Present Illness Admission Date/PCP: 09/26/18 05:12 SOFI GUERRIER MD Patient complains of: Chest pain History of Present Illness: ORACIO PEDROZA is a 83 year old female who presented to the emergency room with a several hour history of chest pain. She indicates that she began having nonradiating, moderately severe, substernal, crushing chest pressure on the late morning prior to admission. She admits that the pain would come and go and last for several minutes at a time. The pain did not change in intensity but the last episode prior to coming to the emergency room did not not resolve within a few minutes as it had previously thus resulting in her visit. She admits similar episodes on numerous occasions in the past with heart attacks and angina, and has not identified any aggravating or ameliorating factors for her chest pain. In the emergency room she was found to have persistent chest pain which was finally controlled with oxycodone. After her chest pain had resolved her blood pressure was noted to be severely elevated and required a short course of treatment with IV labetalol. Because of the patient's extended period of time with chest pain and her history of coronary artery disease it was felt appropriate to admit the patient for observation status and further cardiac evaluation with serial cardiac enzymes and EKG's. The patient has asked that Dr. Medina be consulted to see her as she has him perform all of her cardiology. Past Medical History Cardiac Medical History: Reports: Congestive Heart Failure - Diastolic, Coronary Artery Disease, Myocardial Infarction - x2, Hyperlipidema, Hypertension, Pulmonary Embolism - Distant history Denies: Atrial Fibrillation Pulmonary Medical History: Denies: Asthma, Chronic Obstructive Pulmonary Disease (COPD) EENT Medical History: Reports: Cataracts Denies: Ears - No hearing difficulties Neurological Medical History: Denies: Multiple Sclerosis, Seizures Endocrine Medical History: Reports: Diabetes Mellitus Type 2, Obesity Denies: Diabetes Mellitus Type 1, Hyperthyroidism, Hypothyroidism Renal/ Medical History: Denies: Chronic Kidney Disease, Nephrolithiasis Malignancy Medical History: Reports: Skin Cancer - Excised from her nose. 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 Past Surgical History Past Surgical History: Reports: Appendectomy, Cholecystectomy, Hysterectomy, Tonsillectomy, Vascular Surgery, Other - Cardiac loop recorder, bilateral cataract surgery, hemorrhoidectomy Social History Information Source: Patient Lives with: Family Smoking Status: Never Smoker Frequency of Alcohol Use: None Hx Recreational Drug Use: No Drugs: None Hx Prescription Drug Abuse: No - Advance Directive Resuscitation Status: Full Code Surrogate healthcare decision maker:: Daughter Family History Family History: CAD, COPD, DM, Hyperlipidemia, Hypertension, Malignancy - Father with lung cancer. Cousin with leukemia. 3 brothers with unknown cancers. Mother also of unknown type of cancer., Other Parental Family History Reviewed: Yes Children Family History Reviewed: No Sibling(s) Family History Reviewed.: Yes Medication/Allergy Home Medications: Aspirin [Aspirin EC] 81 mg PO DAILY 05/18/18 Buspirone HCl [Buspar 15 mg Tablet] 15 mg PO BID 05/18/18 Clopidogrel Bisulfate [Plavix 75 mg Tablet] 75 mg PO DAILY 05/18/18 Docusate Sodium [Colace 100 mg Capsule] 100 mg PO DAILY #30 capsule 05/18/18 Furosemide [Lasix 40 mg Tablet] 40 mg PO DAILY #30 tablet 05/18/18 Gabapentin [Neurontin 300 mg Capsule] 300 mg PO Q12 05/18/18 Glimepiride [Amaryl] 2 mg PO BID 05/18/18 Insulin Aspart Protam & Aspart [Novolog Mix 70-30 Vial] 60 unit SQ Q12 05/18/18 Isosorbide Dinitrate [Isordil Titradose 20 mg Tablet] 30 mg PO DAILY 05/18/18 Losartan Potassium [Cozaar 50 mg Tablet] 50 mg PO DAILY 05/18/18 Metoprolol Tartrate [Lopressor 50 mg Tablet] 50 mg PO Q12 05/18/18 Pantoprazole Sodium [Protonix] 40 mg PO DAILY 05/18/18 Ranolazine [Ranexa 500 mg Tab.sr] 500 mg PO BID 05/18/18 Sertraline HCl [Zoloft] 25 mg PO DAILY 05/18/18 Sitagliptin Phosphate [Januvia] 100 mg PO DAILY 05/18/18 Cefdinir 300 mg PO BID #10 capsule 06/13/18 Sulfamethoxazole/Trimethoprim [Bactrim Ds Tablet] 1 each PO BID #14 tablet 07/15/18 Cephalexin Monohydrate [Keflex 500 mg Capsule] 500 mg PO BID #14 capsule 08/04/18 Allergies/Adverse Reactions: morphine Allergy (Mild, Verified 08/04/18 16:32) Review of Systems Constitutional: ABSENT: chills, fever(s) Eyes: ABSENT: visual disturbances, other - Ocular pain Ears: ABSENT: hearing changes, other - Ear pain Nose, Mouth, and Throat: ABSENT: sore throat Cardiovascular: PRESENT: as per HPI, chest pain, dyspnea on exertion. ABSENT: edema, orthropnea, palpitations Respiratory: PRESENT: as per HPI, dyspnea. ABSENT: cough Gastrointestinal: PRESENT: nausea, vomiting. ABSENT: abdominal pain, constipation, diarrhea Genitourinary: ABSENT: dysuria, hematuria Musculoskeletal: ABSENT: deformity, joint swelling Integumentary: ABSENT: pruritus, rash Neurological: ABSENT: confusion, convulsions, memory loss, tremor(s) Psychiatric: ABSENT: anxiety, depression Endocrine: ABSENT: cold intolerance, heat intolerance Hematologic/Lymphatic: ABSENT: easy bleeding, easy bruising Physical Exam Vital Signs: Temp Pulse Resp BP Pulse Ox 98.2 F 102 H 20 195/84 H 93 09/26/18 02:07 09/26/18 02:07 09/26/18 05:24 09/26/18 05:24 09/26/18 05:24 Intake & Output 09/24/18 09/25/18 09/26/18 23:59 23:59 23:59 Weight 96.1 kg General appearance: PRESENT: no acute distress, cooperative Head exam: PRESENT: atraumatic, normocephalic Eye exam: PRESENT: conjunctiva pink, EOMI. ABSENT: scleral icterus Ear exam: PRESENT: normal external ear exam. ABSENT: bleeding, drainage Mouth exam: PRESENT: dry mucosa, neck supple Neck exam: ABSENT: JVD, thyromegaly, tracheal deviation Respiratory exam: PRESENT: clear to auscultation carmen, symmetrical, unlabored Cardiovascular exam: PRESENT: RRR. ABSENT: clicks, gallop, rubs Pulses: PRESENT: normal radial pulses, normal dorsalis pedis pul Vascular exam: PRESENT: normal capillary refill. ABSENT: pallor GI/Abdominal exam: PRESENT: normal bowel sounds, soft Rectal exam: PRESENT: deferred Extremities exam: ABSENT: joint swelling, pedal edema Musculoskeletal exam: ABSENT: deformity, dislocation Neurological exam: PRESENT: alert, oriented to person, oriented to place, oriented to time, oriented to situation, CN II-XII grossly intact. ABSENT: motor sensory deficit Psychiatric exam: PRESENT: appropriate affect, normal mood Skin exam: PRESENT: dry, intact, warm. ABSENT: jaundice, rash, urticaria Results Laboratory Results: 09/26/18 02:46 09/26/18 02:46 09/26/18 09/26/18 02:46 02:46 WBC 40.1 H* RBC 7.37 H Hgb 14.7 Hct 47.9 H MCV 65 L MCH 19.9 L MCHC 30.6 L RDW 26.6 H Plt Count 315 Seg Neutrophils % Not Reportable Lymphocytes % Not Reportable Monocytes % Not Reportable Eosinophils % Not Reportable Basophils % Not Reportable Absolute Neutrophils Not Reportable Absolute Lymphocytes Not Reportable Absolute Monocytes Not Reportable Absolute Eosinophils Not Reportable Absolute Basophils Not Reportable Sodium 142.0 Potassium 4.4 Chloride 104 Carbon Dioxide 28 Anion Gap 10 BUN 15 Creatinine 0.89 Est GFR ( Amer) > 60 Est GFR (Non-Af Amer) > 60 Glucose 336 H Calcium 9.8 Total Bilirubin 0.8 AST 21 ALT 20 Alkaline Phosphatase 256 H Total Protein 7.5 Albumin 4.0 09/26/18 02:46 Troponin I < 0.012 Impressions: Foot X-Ray 09/25/18 21:13 IMPRESSION: Fracture of the distal phalanx of the second toe. copyright 2011 [employer]- All Rights Reserved Chest X-Ray 09/26/18 01:40 IMPRESSION: No acute cardiopulmonary findings. Assessment & Plan - Diagnosis (1) Hypertensive urgency Is this a current diagnosis for this admission?: Yes Plan: Patient was treated with labetalol IV in the ER. She was subsequently given a dose of metoprolol p.o. Her blood pressure will be monitored closely throughout the remainder of her hospital stay with appropriate adjustments to her usual antihypertensive regiment as indicated. (2) Chest pain Qualifiers: Chest pain type: unspecified Qualified Code(s): R07.9 - Chest pain, unspecified Is this a current diagnosis for this admission?: Yes Plan: Patient will be monitored with telemetry and serial EKG and cardiac enzyme determinations will be made. Dr. Medina will be consulted per the patient's request. Further evaluations will be determined by Dr. Medina. Patient's chest pain will be treated Nubain 10 mg IV every 3 hours as needed for chest pain. (3) Coronary artery disease Qualifiers: Coronary Disease-Associated Artery/Lesion type: unspecified vessel or lesion type [place] vs. transplanted heart: [place] heart Associated angina: with unspecified angina Qualified Code(s): I25.119 - Atherosclerotic heart disease of [place] coronary artery with unspecified angina pectoris Is this a current diagnosis for this admission?: Yes Plan: Dr. Medina will be consulted for determination of needed further evaluation of her coronary artery disease. (4) Hyperlipidemia Qualifiers: Hyperlipidemia type: unspecified Qualified Code(s): E78.5 - Hyperlipidemia, unspecified Is this a current diagnosis for this admission?: Yes Plan: Patient will be continued on her current therapy. A lipid profile will be obtained to evaluate efficacy of her current treatment. (5) Diabetes mellitus type 2 in obese Is this a current diagnosis for this admission?: Yes Plan: Patient be continued on her current regimen for control of her diabetes. Hemoglobin A1c will be obtained to assess the efficacy of her current diabetic regimen. - Time Time Spent: 30 to 50 Minutes Critical Time spent with patient: Less than 15 minutes Medications reviewed and adjusted accordingly: Yes Anticipated discharge: Home - Inpatient Certification Based on my medical assessment, after consideration of the patient's comorbidities, presenting symptoms, or acuity I expect that the services needed warrant INPATIENT care.: Yes I certify that my determination is in accordance with my understanding of Medicare's requirements for reasonable and necessary INPATIENT services [42 CFR 412.3e].: Yes Medical Necessity: Need Close Monitoring Due to Risk of Patient Decompensation, Need For Continuous Telemetry Monitoring, Risk of Complication if Not Cared For in Hospital
[2018-09-26] MEDS ORDERED: NALBUPHINE HCL INJ 10 MG/1 ML AMPULE IV PRN (06:34)
[2018-09-26] MEDS ORDERED: LABETALOL HCL INJ 20 MG/4 ML DISP.SYRIN IV PRN (06:34)
[2018-09-26] MEDS ORDERED: ACETAMINOPHEN 325 MG TABLET PO PRN (06:34)
[2018-09-26] MEDS ORDERED: NITROGLYCERIN 0.4 MG/TAB 25 TAB/BOTTLE SL PRN (06:35)
[2018-09-26] MEDS ORDERED: DEXTROSE 40% GEL 15 GM TUBE PO PRN ×2 (06:41)
[2018-09-26] MEDS ORDERED: DEXTROSE 50%-WATER 25 GM/50 ML DISP.SYRIN IV PRN ×2 (06:41)
[2018-09-26] MEDS ORDERED: GLUCAGON,HUMAN RECOMB 1 MG INJ IM PRN (06:41)
[2018-09-26] MEDS ORDERED: INSULIN REG, HUMAN 100 UNIT/ML 3 ML VIAL (PYX) SUBCUT PRN (06:43)
--- NOTE | 2018-09-26 07:44 | EKG REPORT ---
SEVERITY:- ABNORMAL ECG - SINUS TACHYCARDIA LEFT VENTRICULAR HYPERTROPHY ANTERIOR INFARCT, AGE INDETERMINATE : Confirmed by: Adam Bah MD 26-Sep-2018 07:43:45
[2018-09-26 08:50] LABS: WHITE BLOOD COUNT 40.1 10^3/uL (4.0-10.5)
--- NOTE | 2018-09-26 09:04 | Physician Advisory Note ---
Physician Advisor ProgressNote .: Pursuant to the plan for Joe Hannon, I have reviewed the medical record for this patient. Physician Advisor Statement: Medicare pt w/chronic leukocytosis of 40+ per labs (due to ?). Approp'ly brought in as Obs for CP/severe HTN. Nice documentation of chr diast CHF, CAD. Please consider documentin. "Acute CP, suspect due to " 2. Medical necessity: if pt not felt to be safe for d/c later today after f/u of labs & BP Rx adjustments, please document clinical reasons; with evidence of clinical need for 2nd MN tonight, pt will be appropriate for change to Inpatient status today. - If pt simply has CP that is not due to acutely dangerous source, not needing further w/u acutely in hospital, & hypertensive urgency (not HTN-william emergency), expectation will be for d/c later today with adjustment to home Rx regimen & close f/u outpt. Please make it clear if this is not the case. Thanks! CK If pt has CP/CAMEJO/SOB or other end-organ sx that is/are felt to be due to the severe HTN, pt would meet criteria for dx of "Hypertensive Emergency causing ". However, so far, documentation has not indicated s/sx being likely due to the severe HTN but rather preceding the severe HTN.
[2018-09-26] MEDS: RANOLAZINE 500 MG TAB.SR.12H PO SCH ×2 (09:13→17:42)
[2018-09-26] MEDS: SITAGLIPTIN PHOSPHATE 50 MG TABLET PO SCH (09:13)
[2018-09-26] MEDS: LOSARTAN POTASSIUM 50 MG TABLET PO SCH (09:14)
[2018-09-26] MEDS: CLOPIDOGREL BISULFATE 75 MG TABLET PO SCH (09:14)
[2018-09-26] MEDS: BUSPIRONE HCL 10 MG TABLET PO SCH ×2 (09:14→17:42)
[2018-09-26] MEDS: ISOSORBIDE DINITRATE 20 MG TABLET PO SCH (09:16)
[2018-09-26] MEDS: SERTRALINE HCL 50 MG TABLET PO SCH (09:17)
[2018-09-26] MEDS: FUROSEMIDE 40 MG TABLET PO SCH (09:18)
[2018-09-26] MEDS: FAMOTIDINE 20 MG TABLET PO SCH ×4 (09:19→22:18)
[2018-09-26] MEDS: METOCLOPRAMIDE HCL 10 MG TABLET PO SCH ×4 (09:19→22:18)
[2018-09-26] MEDS: METOPROLOL TARTRATE 50 MG TABLET PO SCH ×2 (09:20→22:18)
[2018-09-26] MEDS: DOCUSATE SODIUM 100 MG CAPSULE PO SCH ×2 (09:21→17:42)
[2018-09-26] MEDS: GABAPENTIN 300 MG CAPSULE PO SCH ×2 (09:21→22:18)
[2018-09-26] MEDS: ASPIRIN 81 MG TABLET, ENT COATED PO SCH (09:21)
[2018-09-26] MEDS: SUCRALFATE SUSP 1 GM/10 ML UDCUP PO SCH ×4 (09:22→22:18)
[2018-09-26 09:46] LABS: CREATINE KINASE MB 0.73 ng/mL (<4.55); NT PRO BNP 552 pg/mL (<450)
[2018-09-26 09:49] LABS: FREE T3 3.98 pg/mL (2.77-5.27); FREE T4 (FREE THYROXINE) 1.76 ng/dL (0.78-2.19)
[2018-09-26 09:52] LABS: TROPONIN I < 0.012 ng/mL
[2018-09-26] MEDS ORDERED: INSULIN ASPART PROTAM SQ SCH (10:00)
[2018-09-26] MEDS ORDERED: (PENDING PHARMACY ID) (Sertraline Hcl [Zoloft] 25 MG) PO SCH (10:00)
[2018-09-26] MEDS ORDERED: ASPART SQ SCH (10:00)
[2018-09-26] MEDS ORDERED: GLIMEPIRIDE 1 MG TABLET PO SCH (10:00)
[2018-09-26] MEDS ORDERED: INSULIN REG, HUMAN 100 UNIT/ML 3 ML VIAL (PYX) SUBCUT SCH (11:00)
[2018-09-26] MEDS: HEPARIN SOD (PORCINE) 5,000 UNIT/ML 1 ML SYRINGE SUBCUT SCH ×2 (15:09→22:19)
[2018-09-26] MEDS: HUM INSULIN NPH/REG INSULIN HM 100 UNIT/1 ML 3 ML SUBCUT SCH (15:09)
[2018-09-26 16:05] LABS: CREATINE KINASE MB 0.67 ng/mL (<4.55)
[2018-09-26 16:06] LABS: TROPONIN I < 0.012 ng/mL
--- NOTE | 2018-09-26 17:29 | Progress Note ---
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 Nursing notes, vital signs, laboratory evaluation, H&P, and orders were reviewed; agree with the plan of care as established by the SENIOR IOS SOFTWARE ENGINEER. (1) Hypertensive urgency Resume the patient's home medication regiment of isosorbide, losartan, metopr olol, Ranexa, and furosemide with IV labetalol as needed for blood pressure control. Cardiac diet. Cardiology is consulted; patient requests to be seen by her primary pocket cutter, Dr. Medina. Appreciate Dr. Medina's evaluation recommendations. (2) Chest pain The patient is monitored on continuous cardiac telemetry. We will trend troponins. Cardiac diet. Resume home antihypertensives as above. Nitroglycerin SL tabs as needed for chest pain. Nubain for breakthrough pain secondary to morphine allergy. Cardiology is consulted. (3) Coronary artery disease Continue home dose aspirin and Plavix. Start daily statin therapy. Cardiac diet. We will assess lipid panel with a.m. labs. (4) Hyperlipidemia As above. (5) Diabetes mellitus type 2 in obese Will obtain A1c with morning labs. Hold Amaryl secondary to patient's age and increased fall risk. Continue home dose Januvia. Continue insulin 70/30 45 units twice daily; home doses 60, decrease in dose is secondary to use of consistent carb diet while inpatient. Will increase dose toward home dosing as necessary to maintain glycemic control. Accu-Cheks before meals and at bedtime with Humalog for sliding scale coverage.
[2018-09-26] MEDS: INSULIN REG, HUMAN 100 UNIT/ML 3 ML VIAL (PYX) SUBCUT PRN ×2 (17:43→22:19)
--- NOTE | 2018-09-26 20:16 | PDOC PROGRESS REPORT ---
Subjective Progress Note for:: 09/26/18 Subjective:: Patient seems to be doing better with gradual improvement. Pt is denying any chest arm or neck discomfort. Patient denying any PND, orthopnea. Patient denied any sustained palpitations, dizziness, syncope, near syncope. Patient denying any fever chills. Patient denying any other significant discomfort. Patient is maintaining sinus rhythm. Review of systems: Rest review of systems negative. Medications: Medications have been reviewed. Reason For Visit: CHEST PAIN Physical Exam Vital Signs: Temp Pulse Resp BP Pulse Ox 98.9 F 87 18 134/60 H 91 L 09/26/18 14:48 09/26/18 14:48 09/26/18 14:48 09/26/18 14:48 09/26/18 14:48 Intake & Output 09/25/18 09/26/18 09/27/18 06:59 06:59 06:59 Intake Total 925 Output Total 300 Balance 625 Weight 96.1 kg Exam: GENERAL: well-nourished and in no acute distress. Alert and oriented x3 HEAD: Atraumatic, normocephalic. EYES: SALMA, sclera anicteric, conjunctiva are normal. ENT: Moist mucous membranes. No oral ulcerations or bleeding gums noted. No obvious ear, nose or throat abnormalities noted. NECK: supple without lymphadenopathy. Trachea is central. No cervical or axillary lymphadenopathy noted. Carotids are 2+, JVD WNL LUNGS: Breath sounds clear bilaterally. No wheezes rales or rhonchi noted. No significant dullness noted on percussion. CHEST: Palpation of the chest wall shows significant chest wall tenderness. 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 ABDOMEN: Soft, no significant tenderness appreciated, normoactive bowel sounds. No guarding, no rebound. No rigidity noted . No masses appreciated. EXTREMITIES: Pedal pulses are 1-2+, no calf tenderness noted. No clubbing or cyanosis. negative pedal edema noted NEUROLOGICAL: Focused neurological exam showed no significant neurologic deficit. Normal speech, no focal weakness appreciated. PSYCH: Normal mood, normal affect. Judgment and insight within normal limits. SKIN: No significant ecchymosis, skin is noted to be warm. MUSCULOSKELETAL EXAM: No significant acute joint swelling noted. Results Laboratory Results: 09/26/18 02:46 09/26/18 02:46 09/26/18 09/26/18 09/26/18 02:46 02:46 08:58 WBC 40.1 H* RBC 7.37 H Hgb 14.7 Hct 47.9 H MCV 65 L MCH 19.9 L MCHC 30.6 L RDW 26.6 H Plt Count 315 Seg Neutrophils % Not Reportable Lymphocytes % Not Reportable Monocytes % Not Reportable Eosinophils % Not Reportable Basophils % Not Reportable Absolute Neutrophils Not Reportable Absolute Lymphocytes Not Reportable Absolute Monocytes Not Reportable Absolute Eosinophils Not Reportable Absolute Basophils Not Reportable Sodium 142.0 Potassium 4.4 Chloride 104 Carbon Dioxide 28 Anion Gap 10 BUN 15 Creatinine 0.89 Est GFR ( Amer) > 60 Est GFR (Non-Af Amer) > 60 Glucose 336 H Calcium 9.8 Total Bilirubin 0.8 AST 21 ALT 20 Alkaline Phosphatase 256 H Total Protein 7.5 Albumin 4.0 Free T4 1.76 Free T3 pg/mL 3.98 09/26/18 09/26/18 09/26/18 02:46 08:58 08:58 Creatine Kinase < 20 L CK-MB (CK-2) 0.73 Troponin I < 0.012 < 0.012 NT-Pro-B Natriuret Pep 552 H 09/26/18 09/26/18 09/26/18 08:58 15:20 15:20 Creatine Kinase 21 L CK-MB (CK-2) 0.67 Troponin I Cancelled < 0.012 NT-Pro-B Natriuret Pep EKG Comments: Sinus rhythm, no acute ST-T wave changes are noted. Impressions: Foot X-Ray 09/25/18 21:13 IMPRESSION: Fracture of the distal phalanx of the second toe. copyright 2010 [employer]- All Rights Reserved Chest X-Ray 09/26/18 01:40 IMPRESSION: No acute cardiopulmonary findings. Assessment & Plan - Diagnosis (1) Chest pain Qualifiers: Chest pain type: unspecified Qualified Code(s): R07.9 - Chest pain, unspecified Is this a current diagnosis for this admission?: Yes (2) Diabetes mellitus type 2 in obese Is this a current diagnosis for this admission?: Yes (3) Diastolic CHF Is this a current diagnosis for this admission?: Yes (4) Uncontrolled hypertension Is this a current diagnosis for this admission?: Yes - Notes Notes: Chest pain: Most likely musculoskeletal. Patient has chest wall tenderness. Patient claims as an outpatient and gets better on Motrin intake. Previous stress test within the last 6 months was negative. Will order a 2D echo. Diabetes: Currently under inadequate control but coming under control. Diastolic CHF: Patient has elevated BNP. Will order a 2D echo. Uncontrolled hypertension: Blood pressure coming under satisfactory control. Will continue to follow. Will recommend optimization of medical management. - Time Time with patient: Greater than 35 minutes Medications reviewed and adjusted accordingly: Yes
[2018-09-26 22:18] LABS: CREATINE KINASE MB 0.69 ng/mL (<4.55); TROPONIN I < 0.012 ng/mL
[2018-09-26] MEDS: ATORVASTATIN CALCIUM 20 MG TABLET PO SCH (22:18)
[2018-09-27] MEDS: HEPARIN SOD (PORCINE) 5,000 UNIT/ML 1 ML SYRINGE SUBCUT SCH ×3 (05:17→22:03)
[2018-09-27 06:25] LABS: HEMATOCRIT 45.9 % (36.0-47.0); HEMOGLOBIN 14.1 g/dL (12.0-15.5); MEAN CORPUSCULAR HGB CONC 30.7 g/dL (32.0-36.0); MEAN CORPUSCULAR VOLUME 65 fl (80-97); PLATELET COUNT 351 10^3/uL (150-450); RED CELL DISTRIBUTION WIDTH 26.4 % (11.5-14.0)
[2018-09-27 07:01] LABS: FREE T3 3.35 pg/mL (2.77-5.27); FREE T4 (FREE THYROXINE) 1.67 ng/dL (0.78-2.19)
[2018-09-27 07:06] LABS: WHITE BLOOD COUNT 38.1 10^3/uL (4.0-10.5)
[2018-09-27 07:07] LABS: RED BLOOD COUNT 7.04 10^6/uL (3.72-5.28)
[2018-09-27 07:14] LABS: ANION GAP 9 (5-19); BLOOD UREA NITROGEN 19 mg/dL (7-20); CALCIUM 9.5 mg/dL (8.4-10.2); CARBON DIOXIDE 28 mmol/L (22-30); CHLORIDE 104 mmol/L (98-107); CHOLESTEROL 119.35 mg/dL (0-200); GLUCOSE 197 mg/dL (75-110); POTASSIUM 4.5 mmol/L (3.6-5.0); SODIUM 141.1 mmol/L (137-145); THYROID STIMULATING HORMONE 2.83 uIU/mL (0.47-4.68); TRIGLYCERIDES 273 mg/dL (<150)
[2018-09-27 07:24] LABS: DIRECT LDL 40 mg/dL (<100)
[2018-09-27 07:31] LABS: VLDL CHOLESTEROL 54.6 mg/dL (10-31)
[2018-09-27] MEDS: FAMOTIDINE 20 MG TABLET PO SCH ×4 (07:43→22:05)
[2018-09-27] MEDS: SUCRALFATE SUSP 1 GM/10 ML UDCUP PO SCH ×4 (07:43→22:05)
[2018-09-27] MEDS: METOCLOPRAMIDE HCL 10 MG TABLET PO SCH ×4 (07:43→22:05)
[2018-09-27] MEDS: HUM INSULIN NPH/REG INSULIN HM 100 UNIT/1 ML 3 ML SUBCUT SCH ×2 (07:45→17:13)
--- NOTE | 2018-09-27 08:13 | EKG REPORT ---
SEVERITY:- ABNORMAL ECG - SINUS RHYTHM CONSIDER ANTEROSEPTAL INFARCT : Confirmed by: Adam Bah MD 27-Sep-2018 08:12:50
[2018-09-27] MEDS: ASPIRIN 81 MG TABLET, ENT COATED PO SCH (10:44)
[2018-09-27] MEDS: METOPROLOL TARTRATE 50 MG TABLET PO SCH ×2 (10:44→22:05)
[2018-09-27] MEDS: CLOPIDOGREL BISULFATE 75 MG TABLET PO SCH (10:45)
[2018-09-27] MEDS: FUROSEMIDE 40 MG TABLET PO SCH (10:45)
[2018-09-27] MEDS: SITAGLIPTIN PHOSPHATE 50 MG TABLET PO SCH (10:45)
[2018-09-27] MEDS: BUSPIRONE HCL 10 MG TABLET PO SCH ×2 (10:46→17:10)
[2018-09-27] MEDS: LOSARTAN POTASSIUM 50 MG TABLET PO SCH (10:48)
[2018-09-27] MEDS: SERTRALINE HCL 50 MG TABLET PO SCH (10:49)
[2018-09-27] MEDS: RANOLAZINE 500 MG TAB.SR.12H PO SCH ×2 (10:50→17:11)
[2018-09-27] MEDS: GABAPENTIN 300 MG CAPSULE PO SCH ×2 (10:50→22:05)
[2018-09-27] MEDS: INSULIN REG, HUMAN 100 UNIT/ML 3 ML VIAL (PYX) SUBCUT PRN ×3 (12:28→22:03)
[2018-09-27] MEDS: DOCUSATE SODIUM 100 MG CAPSULE PO SCH ×2 (12:31→17:10)
[2018-09-27] MEDS: ISOSORBIDE DINITRATE 20 MG TABLET PO SCH (13:59)
[2018-09-27 15:09] LABS: PATH REVIEW PATHOLOGIST REVIEWED
--- NOTE | 2018-09-27 20:47 | XCELERA REPORT ---
[address] [address] Transthoracic Echocardiogram Report Name: ORACIO PEDROZA Age: 83 yrs Gender: Female : 1935 Patient Status: Inpatient Patient Location: [address] [place], [place] [address] Study Date: 09/27/2018 11:03 AM Height: 65 in Weight: 211 lb BSA: 2.0 m2 Procedure: A complete two-dimensional transthoracic echocardiogram was performed (2D, M-mode, spectral and color flow Doppler). The study was technically adequate with some images being suboptimal in quality. Reason For Study: Chest pain, CHF, severe hypertension Ordering Physician: BUD JOHNSON Performed By: An Price Interpretation Summary The left ventricular ejection fraction is normal. There is mild concentric left ventricular hypertrophy. The left ventricle is grossly normal size. Doppler measurements suggest pseudonormalized left ventricular relaxation, which is associated with grade II/IV or mild to moderate diastolic dysfunction Wall motion cannot be accurately commented on, but no definite regional wall motion abnormalities noted. The right ventricle is grossly normal size. The right ventricular systolic function is normal. The left atrium is moderately dilated. The right atrium is normal in size There is a trace amount of mitral regurgitation There is no mitral valve stenosis. No aortic regurgitation is present. There is no aortic valve stenosis There is a trace or physiologic amount of tricuspid regurgitation Tricuspid regurgitation jet envelope not well defined to measure RV systolic pressure accurately. The aortic root is not well visualized but is probably normal size. The inferior vena cava appeared normal and decreased > 50% with respiration (RAP 5-10 mmHg) Minimal pericardial effusion. MMode/2D Measurements & Calculations RVDd: 3.7 cm LVIDd: 4.5 cm FS: 38.1 % Ao root diam: 3.0 cm IVSd: 1.1 cm LVIDs: 2.8 cm EDV(Teich): 92.8 ml Ao root area: 7.2 cm2 LVPWd: 1.2 cm ESV(Teich): 29.3 ml EF(Teich): 68.4 % Doppler Measurements & Calculations MV E max keily: MV dec slope: Ao V2 max: LV V1 max P.4 cm/sec 486.8 cm/sec2 157.1 cm/sec 4.6 mmHg MV A max keily: MV dec time: 0.19 secAo max PG: LV V1 max: 162.9 cm/sec 9.9 mmHg 107.4 cm/sec MV E/A: 0.58 PA V2 max: 82.7 cm/sec PA max P.7 mmHg Left Ventricle The left ventricle is grossly normal size. There is mild concentric left ventricular hypertrophy. The left ventricular ejection fraction is normal. Doppler measurements suggest pseudonormalized left ventricular relaxation, which is associated with grade II/IV or mild to moderate diastolic dysfunction. Wall motion cannot be accurately commented on, but no definite regional wall motion abnormalities noted. Right Ventricle The right ventricle is grossly normal size. There is normal right ventricular wall thickness. The right ventricular systolic function is normal. Atria The right atrium is normal in size. The left atrium is moderately dilated. Interarterial septum not well visualized and not well dopplered. Cannot comment on ASD/PFO presence. Mitral Valve The mitral valve is grossly normal. There is no mitral valve stenosis. There is a trace amount of mitral regurgitation. Aortic Valve The aortic valve is grossly normal. There is no aortic valve stenosis. No aortic regurgitation is present. Tricuspid Valve The tricuspid valve is not well visualized, but is grossly normal. There is no tricuspid stenosis. There is a trace or physiologic amount of tricuspid regurgitation. Tricuspid regurgitation jet envelope not well defined to measure RV systolic pressure accurately. Pulmonic Valve The pulmonic valve is not well visualized. Great Vessels The aortic root is not well visualized but is probably normal size. The inferior vena cava appeared normal and decreased > 50% with respiration (RAP 5-10 mmHg). Effusions Minimal pericardial effusion. : BUD JOHNSON > Bud Johnson
--- NOTE | 2018-09-27 21:01 | PDOC PROGRESS REPORT ---
Subjective Progress Note for:: 09/27/18 Subjective:: Patient was seen in the morning. She was noted to be doing well laying comfortably in bed. So far cardiac enzymes has been negative. Pt is denying any chest arm or neck discomfort. Patient denying any PND, orthopnea. Patient denied any sustained palpitations, dizziness, syncope, near syncope. Patient denying any fever chills. Patient denying any other significant discomfort. Patient is maintaining sinus rhythm. Review of systems: Rest review of systems negative. Medications: Medications have been reviewed. Reason For Visit: CHEST PAIN Physical Exam Vital Signs: Temp Pulse Resp BP Pulse Ox 99.4 F 88 16 131/50 H 92 09/27/18 19:35 09/27/18 19:35 09/27/18 19:35 09/27/18 19:35 09/27/18 19:35 Intake & Output 09/26/18 09/27/18 09/28/18 06:59 06:59 06:59 Intake Total 925 1180 Output Total 300 Balance 625 1180 Weight 96.1 kg 97.3 kg Exam: GENERAL: well-nourished and in no acute distress. Alert and oriented x3 HEAD: Atraumatic, normocephalic. EYES: SALMA, sclera anicteric, conjunctiva are normal. ENT: Moist mucous membranes. No oral ulcerations or bleeding gums noted. No obvious ear, nose or throat abnormalities noted. NECK: supple without lymphadenopathy. Trachea is central. No cervical or axillary lymphadenopathy noted. Carotids are 2+, JVD WNL LUNGS: Breath sounds clear bilaterally. No wheezes rales or rhonchi noted. No significant dullness noted on percussion. CHEST: Palpation of the chest wall shows positive for chest wall tenderness. 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 ABDOMEN: Soft, no significant tenderness appreciated, normoactive bowel sounds. No guarding, no rebound. No rigidity noted . No masses appreciated. EXTREMITIES: Pedal pulses are 1-2+, no calf tenderness noted. No clubbing or cyanosis. negative pedal edema noted NEUROLOGICAL: Focused neurological exam showed no significant neurologic deficit. Normal speech, no focal weakness appreciated. PSYCH: Normal mood, normal affect. Judgment and insight within normal limits. SKIN: No significant ecchymosis, skin is noted to be warm. MUSCULOSKELETAL EXAM: No significant acute joint swelling noted. Results Laboratory Results: 09/27/18 05:15 09/27/18 05:15 09/27/18 09/27/18 09/27/18 05:15 05:15 05:15 WBC 38.1 H* RBC 7.04 H Hgb 14.1 Hct 45.9 MCV 65 L MCH 20.0 L MCHC 30.7 L RDW 26.4 H Plt Count 351 Sodium 141.1 Potassium 4.5 Chloride 104 Carbon Dioxide 28 Anion Gap 9 BUN 19 Creatinine 1.15 Est GFR ( Amer) 55 L Est GFR (Non-Af Amer) 45 L Glucose 197 H Calcium 9.5 Magnesium 1.7 Triglycerides 273 H Cholesterol 119.35 LDL Cholesterol Direct 40 VLDL Cholesterol 54.6 H HDL Cholesterol 25 L TSH 2.83 Free T4 1.67 Free T3 pg/mL 3.35 09/26/18 09/26/18 09/26/18 02:46 08:58 08:58 Creatine Kinase < 20 L CK-MB (CK-2) 0.73 Troponin I < 0.012 < 0.012 NT-Pro-B Natriuret Pep 552 H 09/26/18 09/26/18 09/26/18 08:58 15:20 15:20 Creatine Kinase 21 L CK-MB (CK-2) 0.67 Troponin I Cancelled < 0.012 NT-Pro-B Natriuret Pep 09/26/18 09/26/18 21:30 21:30 Creatine Kinase 25 L CK-MB (CK-2) 0.69 Troponin I < 0.012 NT-Pro-B Natriuret Pep EKG Comments: Shows sinus rhythm without any sustained tachycardia or bradycardia arrhythmia. Patient however noted to be slightly tachycardic at times. Impressions: Foot X-Ray 09/25/18 21:13 IMPRESSION: Fracture of the distal phalanx of the second toe. copyright 2011 [id number]- All Rights Reserved Chest X-Ray 09/26/18 01:40 IMPRESSION: No acute cardiopulmonary findings. Assessment & Plan - Diagnosis (1) Chest pain Qualifiers: Chest pain type: unspecified Qualified Code(s): R07.9 - Chest pain, unspecified Is this a current diagnosis for this admission?: Yes (2) Diabetes mellitus type 2 in obese Is this a current diagnosis for this admission?: Yes (3) Diastolic CHF Is this a current diagnosis for this admission?: Yes (4) Uncontrolled hypertension Is this a current diagnosis for this admission?: Yes - Notes Notes: Chest pain: [place] to be noncardiac and atypical. Most likely musculoskeletal. Patient tells me that at home Motrin tends to help it. May consider Aleve therapy. Diabetes: This is being well managed by hospitalist. Diastolic CHF: 2D echo shows normal LVEF. Uncontrolled hypertension: Blood pressure coming under good control. Patient reasonably stable from cardiac standpoint. Could follow-up with me for close cardiology follow-up as an outpatient. - Time Time with patient: 15-25 minutes Medications reviewed and adjusted accordingly: Yes
[2018-09-27] MEDS: ATORVASTATIN CALCIUM 20 MG TABLET PO SCH (22:05)
[2018-09-28 05:08] LABS: HEMATOCRIT 48.1 % (36.0-47.0); HEMOGLOBIN 14.8 g/dL (12.0-15.5); MEAN CORPUSCULAR HEMOGLOBIN 20.1 pg (27.0-33.4); MEAN CORPUSCULAR HGB CONC 30.8 g/dL (32.0-36.0); MEAN CORPUSCULAR VOLUME 65 fl (80-97); PLATELET COUNT 313 10^3/uL (150-450); RED CELL DISTRIBUTION WIDTH 26.9 % (11.5-14.0)
[2018-09-28 05:18] LABS: ANION GAP 13 (5-19); BLOOD UREA NITROGEN 20 mg/dL (7-20); CARBON DIOXIDE 27 mmol/L (22-30); CHLORIDE 103 mmol/L (98-107); GLUCOSE 126 mg/dL (75-110); POTASSIUM 4.7 mmol/L (3.6-5.0); SODIUM 142.5 mmol/L (137-145)
[2018-09-28 05:28] LABS: RED BLOOD COUNT 7.38 10^6/uL (3.72-5.28)
[2018-09-28 05:46] LABS: WHITE BLOOD COUNT 46.4 10^3/uL (4.0-10.5)
[2018-09-28] MEDS: HEPARIN SOD (PORCINE) 5,000 UNIT/ML 1 ML SYRINGE SUBCUT SCH ×2 (05:48→13:33)
[2018-09-28] MEDS: FAMOTIDINE 20 MG TABLET PO SCH ×3 (08:16→16:34)
[2018-09-28] MEDS: METOCLOPRAMIDE HCL 10 MG TABLET PO SCH ×3 (08:16→16:34)
[2018-09-28] MEDS: SUCRALFATE SUSP 1 GM/10 ML UDCUP PO SCH ×3 (08:18→16:35)
[2018-09-28] MEDS: HUM INSULIN NPH/REG INSULIN HM 100 UNIT/1 ML 3 ML SUBCUT SCH ×2 (08:52→16:35)
[2018-09-28] MEDS: INSULIN REG, HUMAN 100 UNIT/ML 3 ML VIAL (PYX) SUBCUT PRN ×2 (08:53→16:35)
[2018-09-28] MEDS: SERTRALINE HCL 50 MG TABLET PO SCH (10:15)
[2018-09-28] MEDS: SITAGLIPTIN PHOSPHATE 50 MG TABLET PO SCH (10:17)
[2018-09-28] MEDS: ASPIRIN 81 MG TABLET, ENT COATED PO SCH (10:18)
[2018-09-28] MEDS: BUSPIRONE HCL 10 MG TABLET PO SCH (10:18)
[2018-09-28] MEDS: GABAPENTIN 300 MG CAPSULE PO SCH (10:18)
[2018-09-28] MEDS: CLOPIDOGREL BISULFATE 75 MG TABLET PO SCH (10:18)
[2018-09-28] MEDS: DOCUSATE SODIUM 100 MG CAPSULE PO SCH (10:19)
[2018-09-28] MEDS: LOSARTAN POTASSIUM 50 MG TABLET PO SCH (10:19)
[2018-09-28] MEDS: METOPROLOL TARTRATE 50 MG TABLET PO SCH (10:19)
[2018-09-28] MEDS: FUROSEMIDE 40 MG TABLET PO SCH (10:19)
[2018-09-28] MEDS: RANOLAZINE 500 MG TAB.SR.12H PO SCH (10:19)
[2018-09-28] MEDS: ISOSORBIDE DINITRATE 20 MG TABLET PO SCH (10:20)
--- NOTE | 2018-09-28 14:53 | PDOC DISCHARGE SUMMARY ---
General - Admit/Disc Date/PCP Admission Date/Primary Care Provider: 09/26/18 05:12 SOFI GUERRIER MD Discharge Date: 09/27/17 - Discharge Diagnosis (1) CAD (coronary artery disease) Is this a current diagnosis for this admission?: Yes (2) Chest pain Is this a current diagnosis for this admission?: Yes (3) Chronic diastolic CHF (congestive heart failure) Is this a current diagnosis for this admission?: Yes (4) Diabetes mellitus Is this a current diagnosis for this admission?: Yes (5) Hyperlipidemia Is this a current diagnosis for this admission?: Yes (6) Hypertensive urgency Is this a current diagnosis for this admission?: Yes - Additional Information Resuscitation Status: Full Code Discharge Diet: Cardiac Discharge Activity: Activity As Tolerated, Balance Activity w/Rest, Slowly Increase Activity, Supervised Activity, Weigh Daily Prescriptions: Atorvastatin Calcium [Lipitor 20 mg Tablet] 20 mg PO QHS #30 tablet Home Medications: Aspirin [Aspirin EC] 81 mg PO DAILY 05/18/18 Buspirone HCl [Buspar 15 mg Tablet] 15 mg PO Q12 05/18/18 Clopidogrel Bisulfate [Plavix 75 mg Tablet] 75 mg PO DAILY 05/18/18 Furosemide [Lasix 40 mg Tablet] 40 mg PO DAILY #30 tablet 05/18/18 Gabapentin [Neurontin 300 mg Capsule] 300 mg PO Q12 05/18/18 Insulin Aspart Protam & Aspart [Novolog Mix 70-30 Vial] 65 unit SQ BID 05/18/18 Metoprolol Tartrate [Lopressor 50 mg Tablet] 50 mg PO Q12 05/18/18 Pantoprazole Sodium [Protonix] 40 mg PO DAILY 05/18/18 Ranolazine [Ranexa 500 mg Tab.sr] 500 mg PO Q8 05/18/18 Sertraline HCl [Zoloft] 25 mg PO DAILY 05/18/18 Sitagliptin Phosphate [Januvia] 100 mg PO DAILY 05/18/18 Acetaminophen [Tylenol 325 mg Tablet] 650 mg PO Q4HP PRN tablet 09/27/18 Atorvastatin Calcium [Lipitor 20 mg Tablet] 20 mg PO QHS #30 tablet 09/27/18 Isosorbide Dinitrate [Isordil Titradose 20 mg Tablet] 30 mg PO DAILY tablet 09/27/18 Losartan Potassium [Cozaar 50 mg Tablet] 50 mg PO DAILY tablet 09/27/18 History of Present Illness History of Present Illness: Per H&P by Dr. Sandhu: ORACIO PEDROZA is a 83 year old female who presented to the emergency room with a several hour history of chest pain. She indicates that she began having nonradiating, moderately severe, substernal, crushing chest pressure on the late morning prior to admission. She admits that the pain would come and go and last for several minutes at a time. The pain did not change in intensity but the last episode prior to coming to the emergency room did not not resolve within a few minutes as it had previously thus resulting in her visit. She admits similar episodes on numerous occasions in the past with heart attacks and angina, and has not identified any aggravating or ameliorating factors for her chest pain. In the emergency room she was found to have persistent chest pain which was finally controlled with oxycodone. After her chest pain had resolved her blood pressure was noted to be severely elevated and required a short course of treatment with IV labetalol. Because of the patient's extended period of time with chest pain and her history of coronary artery disease it was felt appropriate to admit the patient for observation status and further cardiac evaluation with serial cardiac enzymes and EKG's. The patient has asked that Dr. Medina be consulted to see her as she has him perform all of her cardiology. Hospital Course Hospital Course: The patient was admitted with atypical chest pain; reproducible with palpation and movements, resolves shortly following admission and did not recur. On admission, she was noted to have hypertensive urgency with blood pressures of 220/110. Pressure control was rapidly achieved through resumption of the patient's home medication regiment of isosorbide, losartan, metoprolol, Ranexa, and furosemide with IV labetalol as needed for blood pressure control. The patient was monitored on continuous cardiac telemetry; no abnormal tracings were observed. Her chest x-ray was benign, EKG obtained while in the emergency department demonstrated sinus tachycardia with LVH but no ST segment changes or other acute findings. ProBNP was acceptable for the patient's age and weight, troponins were negative x4. Risk stratification included assessment of A1c; found to be elevated to 8.7%, lipid panel revealed low LDL and hyper triglycerides, TSH panel was acceptable. The patient's primary veneer patcher, Dr. Medina, was consulted at the patient's request. He confirmed that she has had a recent negative outpatient stress test. He did order an echocardiogram which revealed a normal LVEF with grade 2 [address] with Dr[address] Medina on day of discharge; he approved plan for the patient to be discharged home on the above listed medications with follow-up in his office within the next 1-2 days. The patient was noted to have persistent leukocytosis (WBC 46) which appears to be chronic dating back to 2015. She is advised to follow-up with Dr. Mercer, unless she is already established with a cone classifier tender/oncologist. In which case, recommend to follow up as previously scheduled. She is noted to be afebrile and without signs and symptoms of focal or systemic infection at this time. At time of discharge, the patient was asymptomatic, hemodynamically stable, and maintaining oxygen saturations greater than 89% while on room air. She is advised to follow-up with her primary care provider within 1 week, with Dr. Medina as soon as possible, and to establish with a cone classifier tender. She is instructed to resume her home medication regiment unchanged; continue daily aspirin and statin therapy, cardiac diet, and daily weights. She is also encouraged to return to the emergency department as needed for any concerning symptoms. Physical Exam Vital Signs: Temp Pulse Resp BP Pulse Ox 98.9 F 99 16 111/50 L 93 09/28/18 11:00 09/28/18 11:00 09/28/18 11:00 09/28/18 11:00 09/28/18 11:00 Intake & Output 09/27/18 09/28/18 09/29/18 06:59 06:59 06:59 Intake Total 925 1420 355 Output Total 300 Balance 625 1420 355 Weight 97.3 kg 97.3 kg General appearance: PRESENT: no acute distress, cooperative, obese, well- developed, well-nourished Head exam: PRESENT: atraumatic, normocephalic Eye exam: PRESENT: conjunctiva pink, EOMI, PERRLA. ABSENT: scleral icterus Ear exam: PRESENT: normal external ear exam Mouth exam: PRESENT: moist, tongue midline Neck exam: ABSENT: carotid bruit, JVD, lymphadenopathy, thyromegaly Respiratory exam: PRESENT: clear to auscultation carmen, symmetrical, unlabored. ABSENT: rales, rhonchi, wheezes Cardiovascular exam: PRESENT: RRR, +S1, +S2. ABSENT: diastolic murmur, rubs, systolic murmur Pulses: PRESENT: normal dorsalis pedis pul Vascular exam: PRESENT: normal capillary refill GI/Abdominal exam: PRESENT: normal bowel sounds, soft. ABSENT: distended, guarding, mass, organolmegaly, rebound, tenderness Rectal exam: PRESENT: deferred Extremities exam: PRESENT: full ROM. ABSENT: calf tenderness, clubbing, pedal edema Neurological exam: PRESENT: alert, awake, oriented to person, oriented to place, oriented to time, oriented to situation, CN II-XII grossly intact. ABSENT: motor sensory deficit Psychiatric exam: PRESENT: anxious, appropriate affect. ABSENT: homicidal ideation, suicidal ideation Skin exam: PRESENT: dry, intact, warm. ABSENT: cyanosis, rash Results Laboratory Results: 09/28/18 04:22 09/28/18 04:22 09/28/18 09/28/18 04:22 04:22 WBC 46.4 H* RBC 7.38 H Hgb 14.8 Hct 48.1 H MCV 65 L MCH 20.1 L MCHC 30.8 L RDW 26.9 H Plt Count 313 Sodium 142.5 Potassium 4.7 Chloride 103 Carbon Dioxide 27 Anion Gap 13 BUN 20 Creatinine 1.04 Est GFR ( Amer) > 60 Est GFR (Non-Af Amer) 51 L Glucose 126 H Calcium 10.0 Magnesium 1.8 09/26/18 09/26/18 09/26/18 02:46 08:58 08:58 Creatine Kinase < 20 L CK-MB (CK-2) 0.73 Troponin I < 0.012 < 0.012 NT-Pro-B Natriuret Pep 552 H 09/26/18 09/26/18 09/26/18 08:58 15:20 15:20 Creatine Kinase 21 L CK-MB (CK-2) 0.67 Troponin I Cancelled < 0.012 NT-Pro-B Natriuret Pep 09/26/18 09/26/18 21:30 21:30 Creatine Kinase 25 L CK-MB (CK-2) 0.69 Troponin I < 0.012 NT-Pro-B Natriuret Pep Impressions: Foot X-Ray 09/25/18 21:13 IMPRESSION: Fracture of the distal phalanx of the second toe. copyright 2010 [employer]- All Rights Reserved Chest X-Ray 09/26/18 01:40 IMPRESSION: No acute cardiopulmonary findings. Qualifiers - * PATIENT BEING DISCHARGED WITH ANY OF THE FOLLOWING DIAGNOSIS: Heart Failure HF Pt being discharged on ACEI for LVEF less than 40%?: No Reason(s) for not prescribing ACEI:: Not indicated - Normal LVEF HF Pt being discharged on ARBS for LVEF less than 40%?: Yes HF Pt with Afib discharged with Warfarin?: No Reason(s) for not prescribing Warfarin:: Not indicated - Not in A. fib. HF Pt discharged on evidence-based Beta Ezequiel:: Yes Plan Discharge Plan: Discharge to home with home health nursing and physical therapy. Follow-up with primary care provider within 1 week. Follow-up with Dr. Medina in the office tomorrow. Return to the emergency department as needed for concerning symptoms. Time Spent: Less than 30 Minutes
[2018-09-28 17:24] VITALS: BP 133/57
--- NOTE | 2018-09-28 22:25 | PDOC PROGRESS REPORT ---
Subjective Progress Note for:: 09/28/18 Subjective:: Patient was seen in the morning. Patient claims she is waiting for a bed at a rehab facility. She was noted to be doing well laying comfortably in bed. So far cardiac enzymes has been negative. Pt is denying any chest arm or neck discomfort. Patient denying any PND, orthopnea. Patient denied any sustained palpitations, dizziness, syncope, near syncope. Patient denying any fever chills. Patient denying any other significant discomfort. Patient is maintaining sinus rhythm. Review of systems: Rest review of systems negative. Medications: Medications have been reviewed. Reason For Visit: CHEST PAIN Physical Exam Vital Signs: Temp Pulse Resp BP Pulse Ox 98.9 F 99 16 82/61 L 93 09/28/18 16:49 09/28/18 16:49 09/28/18 16:49 09/28/18 16:49 09/28/18 16:49 Intake & Output 09/27/18 09/28/18 09/29/18 06:59 06:59 06:59 Intake Total 925 1420 355 Output Total 300 Balance 625 1420 355 Weight 97.3 kg 97.3 kg Exam: GENERAL: well-nourished and in no acute distress. Alert and oriented x3 HEAD: Atraumatic, normocephalic. EYES: SALMA, sclera anicteric, conjunctiva are normal. ENT: Moist mucous membranes. No oral ulcerations or bleeding gums noted. No obvious ear, nose or throat abnormalities noted. NECK: supple without lymphadenopathy. Trachea is central. No cervical or axillary lymphadenopathy noted. Carotids are 2+, JVD WNL LUNGS: Breath sounds clear bilaterally. No wheezes rales or rhonchi noted. No significant dullness noted on percussion. CHEST: Palpation of the chest wall shows no significant chest wall tenderness. HEART: [place] RN CVOR, No PSH, 1/6 VIRAL aortic area, 1/6 pineda systolic murmur mitral area, no rubs, no gallops. ABDOMEN: Soft, no significant tenderness appreciated, normoactive bowel sounds. No guarding, no rebound. No rigidity noted . No masses appreciated. EXTREMITIES: Pedal pulses are 1-2+, no calf tenderness noted. No clubbing or cyanosis. negative pedal edema noted NEUROLOGICAL: Focused neurological exam showed no significant neurologic deficit. Normal speech, no focal weakness appreciated. PSYCH: Normal mood, normal affect. Judgment and insight within normal limits. SKIN: No significant ecchymosis, skin is noted to be warm. MUSCULOSKELETAL EXAM: No significant acute joint swelling noted. Results Laboratory Results: 09/28/18 04:22 09/28/18 04:22 09/28/18 09/28/18 04:22 04:22 WBC 46.4 H* RBC 7.38 H Hgb 14.8 Hct 48.1 H MCV 65 L MCH 20.1 L MCHC 30.8 L RDW 26.9 H Plt Count 313 Sodium 142.5 Potassium 4.7 Chloride 103 Carbon Dioxide 27 Anion Gap 13 BUN 20 Creatinine 1.04 Est GFR ( Amer) > 60 Est GFR (Non-Af Amer) 51 L Glucose 126 H Calcium 10.0 Magnesium 1.8 09/26/18 09/26/18 09/26/18 02:46 08:58 08:58 Creatine Kinase < 20 L CK-MB (CK-2) 0.73 Troponin I < 0.012 < 0.012 NT-Pro-B Natriuret Pep 552 H 09/26/18 09/26/18 09/26/18 08:58 15:20 15:20 Creatine Kinase 21 L CK-MB (CK-2) 0.67 Troponin I Cancelled < 0.012 NT-Pro-B Natriuret Pep 09/26/18 09/26/18 21:30 21:30 Creatine Kinase 25 L CK-MB (CK-2) 0.69 Troponin I < 0.012 NT-Pro-B Natriuret Pep EKG Comments: Shows sinus rhythm without any tachycardia or bradycardia Impressions: Foot X-Ray 09/25/18 21:13 IMPRESSION: Fracture of the distal phalanx of the second toe. copyright 2010 [employer]- All Rights Reserved Chest X-Ray 09/26/18 01:40 IMPRESSION: No acute cardiopulmonary findings. Assessment & Plan - Diagnosis (1) Chest pain Qualifiers: Chest pain type: unspecified Qualified Code(s): R07.9 - Chest pain, un specified Is this a current diagnosis for this admission?: Yes Plan: Cardiac enzymes and EKG has been negative. Chest pain felt to be noncardiac. Recommend close cardiology follow-up as an outpatient. (2) Diabetes mellitus type 2 in obese Is this a current diagnosis for this admission?: Yes Plan: Currently under satisfactory control. (3) Diastolic CHF Is this a current diagnosis for this admission?: Yes Plan: 2D echo results reviewed with the patient. Continue current management plans. Currently patient well compensated. (4) Uncontrolled hypertension Is this a current diagnosis for this admission?: Yes Plan: Blood pressure under satisfactory control. Continue current antihypertensive regimen. Further evaluation can be Continued as an outpatient. - Time Time with patient: Greater than 35 minutes - More than 50% of the time spent coordinating care, discussing management plans with involved caregivers. Management plans discussed with involved personnels. Medical decision making was of moderate to high complexity, patient's has multiple comorbidities. Medications reviewed and adjusted accordingly: Yes
== END 2018-09-28 17:25 | disposition home or self-care (01) ==
LOC: ER 20:59 → EH 09-26 05:12 → 3S 09-26 07:56 → 5 09-28 00:25
PROVIDERS: ADMIT Emergency Medicine; ATTEND Emergency Medicine
DX: I25.119 Atherosclerotic heart disease of native coronary artery with unspecified angina pectoris (principal); R07.89 Other chest pain; I11.0 Hypertensive heart disease with heart failure; I50.32 Chronic diastolic (congestive) heart failure; I16.0 Hypertensive urgency; E11.65 Type 2 diabetes mellitus with hyperglycemia; E78.5 Hyperlipidemia, unspecified; D72.829 Elevated white blood cell count, unspecified; R11.2 Nausea with vomiting, unspecified; R06.09 Other forms of dyspnea; E66.9 Obesity, unspecified; M19.90 Unspecified osteoarthritis, unspecified site; M77.32 Calcaneal spur, left foot; I25.2 Old myocardial infarction; S92.532A Displaced fracture of distal phalanx of left lesser toe(s), initial encounter for closed fracture; W22.8XXA Striking against or struck by other objects, initial encounter; E11.51 Type 2 diabetes mellitus with diabetic peripheral angiopathy without gangrene; Z79.82 Long term (current) use of aspirin; Z79.4 Long term (current) use of insulin; Z79.02 Long term (current) use of antithrombotics/antiplatelets; Z86.711 Personal history of pulmonary embolism; Z90.49 Acquired absence of other specified parts of digestive tract; Z82.49 Family history of ischemic heart disease and other diseases of the circulatory system; Z80.1 Family history of malignant neoplasm of trachea, bronchus and lung; Z80.6 Family history of leukemia; Z88.8 Allergy status to other drugs, medicaments and biological substances; Z86.73 Personal history of transient ischemic attack (TIA), and cerebral infarction without residual deficits
CPT/HCPCS: 93005 ×2; 99285; 96374; 96375; 36415 ×3; 84439 ×2; 82553; 82962 ×3; 82550; 83735 ×2; 84443; 85025; 85027 ×2; 85610; 85730; 80048 ×2; 80053; 84484; 84481 ×2; 83036; 80061; 83880; 93306; 71045; 73630 ×2; 93010 ×2; A9270 ×48; J1644 ×3; J3490 ×4; J2405; J1815

== ENCOUNTER 2018-10-13 17:29 | Inpatient (IN) | payer MEDICARE, OTHER ==
[2018-10-13] MEDS ORDERED: NORMAL SALINE 1000 ML 500 ML IV ONE (18:36)
[2018-10-13] MEDS ORDERED: ONDANSETRON HCL INJ/PF 4 MG/2 ML SDV IV ONE (18:36)
[2018-10-13] MEDS ORDERED: PANTOPRAZOLE SODIUM 40 MG VIAL IV ONE (18:58)
[2018-10-13] MEDS ORDERED: INSULIN REG, HUMAN 100 UNIT/ML 3 ML VIAL (PYX) SUBCUT ONE (19:01)
[2018-10-13 19:26] LABS: HEMATOCRIT 49.9 % (36.0-47.0); HEMOGLOBIN 15.5 g/dL (12.0-15.5); MEAN CORPUSCULAR HEMOGLOBIN 20.6 pg (27.0-33.4); MEAN CORPUSCULAR HGB CONC 31.1 g/dL (32.0-36.0); MEAN CORPUSCULAR VOLUME 66 fl (80-97); PLATELET COUNT 274 10^3/uL (150-450); RED BLOOD COUNT 7.54 10^6/uL (3.72-5.28); RED CELL DISTRIBUTION WIDTH 25.7 % (11.5-14.0)
--- NOTE | 2018-10-13 19:31 | ER Document Report ---
ED General - General Chief Complaint: Nausea/Vomiting Stated Complaint: NAUSEA Time Seen by Provider: 10/13/18 18:28 Primary Care Provider: SOFI GUERRIER MD [Primary Care Provider] - Follow up as needed Notes: Patient is an 83-year-old female with a past medical history of insulin- dependent diabetes, former history of GI bleed, hypercholesterolemia, hypertension, presents complaining of 3 days of intermittent upper abdominal pain as well as nausea and vomiting. Patient states that she has had 2-3 episodes of vomiting today that appeared like coffee grounds. Is uncertain whether or not this is similar to when she had GI bleeds in the past. She does describe her abdominal pain as being gone currently but states that when it is present it is a cramping, aching, mild pain to her upper abdomen. nothing seems to improve or worsen her symptoms. She has not contacted her primary care doctor regarding today's concerns. She states that she feels somewhat lightheaded although has not had any episodes of syncope. No chest pain or shortness of breath. TRAVEL OUTSIDE OF THE [place] IN LAST 30 DAYS: No - Related Data Allergies/Adverse Reactions: morphine Allergy (Mild, Verified 08/04/18 16:32) Past Medical History - General Information source: Patient - Social History Smoking Status: Former Smoker Chew tobacco use (# tins/day): No Frequency of alcohol use: None Drug Abuse: None Lives with: Family Family History: CAD, COPD, DM, Hyperlipidemia, Hypertension, Malignancy - Father with lung cancer. Cousin with leukemia. 3 brothers with unknown cancers. Mother also of unknown type of cancer., Other Patient has suicidal ideation: No Patient has homicidal ideation: No - Past Medical History Cardiac Medical History: Reports: Hx Congestive Heart Failure, Hx Coronary Artery Disease, Hx Heart Attack - x2, Hx Hypercholesterolemia, Hx Hypertension, Hx Pulmonary Embolism - Distant history Denies: Hx Atrial Fibrillation Pulmonary Medical History: Denies: Hx Asthma, Hx COPD Neurological Medical History: Denies: Hx Seizures Endocrine Medical History: Reports: Hx Diabetes Mellitus Type 2. Denies: Hx Diabetes Mellitus Type 1, Hx Hyperthyroidism, Hx Hypothyroidism Renal/ Medical History: Denies: Hx Peritoneal Dialysis Malignancy Medical History: Reports: Hx Skin Cancer - Excised from her nose. GI Medical History: Reports: Hx Gastroesophageal Reflux Disease. Denies: Hx Cirrhosis, Hx Hepatitis Musculoskeletal Medical History: Reports Hx Arthritis, Denies Hx Gout, Reports Hx Musculoskeletal Deformity Skin Medical History: Denies Hx Eczema, Denies Hx Psoriasis Psychiatric Medical History: Reports: Hx Anxiety, Hx Depression Infectious Medical History: Reports: Hx MRSA - remote history. Denies: Hx Hepatitis Past Surgical History: Reports: Hx Abdominal Surgery, Hx Appendectomy, Hx Cholecystectomy, Hx Hysterectomy, Hx Tonsillectomy, Hx Vascular Surgery, Other - Cardiac loop recorder, bilateral cataract surgery, hemorrhoidectomy - Immunizations Hx Diphtheria, Pertussis, Tetanus Vaccination: No Hx Pneumococcal Vaccination: 04/29/13 Review of Systems - Review of Systems Notes: Constitutional: Negative for fever. Positive for lightheadedness HENT: Negative for sore throat. Eyes: Negative for visual changes. Cardiovascular: Negative for chest pain. Respiratory: Negative for shortness of breath. Gastrointestinal: Positive for abdominal pain and vomiting Genitourinary: Negative for dysuria. Musculoskeletal: Negative for back pain. Skin: Negative for rash. Neurological: Negative for headaches, weakness or numbness. 10 point ROS negative except as marked above and in HPI. Physical Exam - Vital signs Interpretation: Tachycardic, Hypoxic Notes: PHYSICAL EXAMINATION: GENERAL: Appears mildly unwell but in no acute distress. HEAD: Atraumatic, normocephalic. EYES: Pupils equal round and reactive to light, extraocular movements intact, sclera anicteric, conjunctiva are normal. ENT: nares patent, oropharynx clear without exudates. Moderately dry mucous membranes. NECK: Normal range of motion, supple without lymphadenopathy LUNGS: Breath sounds clear to auscultation bilaterally and equal. No wheezes rales or rhonchi. HEART: Regular rate and rhythm without murmurs ABDOMEN: Soft, nontender, normoactive bowel sounds. No guarding, no rebound. No masses appreciated. Rectal: No masses, brown black stool, guaiac negative EXTREMITIES: Normal range of motion, no pitting or edema. No cyanosis. NEUROLOGICAL: No focal neurological deficits. Moves all extremities spontaneously and on command. PSYCH: Normal mood, normal affect. SKIN: Warm, Dry, normal turgor, no rashes or lesions noted. Course - Re-evaluation Re-evalutation: 10/13/18 1830 Patient presents complaining of multiple episodes of nausea and vomiting of a coffee-ground type emesis with associated upper abdominal pain. On exam patient is moderately ill in appearance but in no acute distress. Vitals are notable for mild tachycardia of 101 at time of my initial assessment as well as borderline hypoxemia saturations between 90 and 92%. Patient has a history of upper GI bleeds in the past. Does take both aspirin and clopidogrel. Also take s pantoprazole daily. On rectal examination stool guaiac is negative on bedside Hemoccult testing. Patient has not yet vomited here in the emergency department. Concern is for an upper GI bleed in the context of multi- antiplatelet agents. Will proceed with initiation of a pantoprazole infusion a fter initial bolus. Will be restricted with fluids as patient is not hypotensive and has a history of CHF with volume overload. Will also obtain labs, type and screen and reassess the patient. 10/13/18 21:39 Patient has not had any further episodes of coffee-ground emesis. Remains well in appearance. Vitals unchanged. I have discussed with Dr. Garcia who advises that patient would be able to get endoscopy at this facility if required. I agree that it is not indicated at this time. Discussed with Dr. Schaefer who has accepted the patient. - Laboratory Result Diagrams: 10/13/18 19:00 10/13/18 20:00 Laboratory results interpreted by me: 10/13/18 10/13/18 10/13/18 18:43 19:00 20:00 WBC 39.4 H* RBC 7.54 H Hct 49.9 H MCV 66 L MCH 20.6 L MCHC 31.1 L RDW 25.7 H Seg Neuts % (Manual) 94 H Lymphocytes % (Manual) 3 L Abs Neuts (Manual) 37.0 H Carbon Dioxide 33 H Est GFR ( Amer) 59 L Est GFR (Non-Af Amer) 48 L Glucose 439 H* POC Glucose 412 H* ALT 8 L Alkaline Phosphatase 263 H - Diagnostic Test Radiology reviewed: Image reviewed, Reports reviewed Radiology results interpreted by me: 10/13/18 21:39 Chest x-ray: No acute infiltrate or pneumothorax Discharge - Discharge Clinical Impression: Coffee ground emesis, Upper GI bleed Nausea and vomiting Qualifiers: Vomiting type: unspecified Vomiting Intractability: non-intractable Qualified Code(s): R11.2 - Nausea with vomiting, unspecified Condition: Fair Disposition: ADMITTED INPATIENT Admitting Provider: Hospitalist Unit Admitted: IMCU Referrals: SOFI GUERRIER MD [Primary Care Provider] - Follow up as needed
[2018-10-13] MEDS: PANTOPRAZOLE SODIUM 40 MG VIAL IV PRN (19:47)
[2018-10-13 19:51] LABS: WHITE BLOOD COUNT 39.4 10^3/uL (4.0-10.5)
[2018-10-13 19:55] LABS: ABSOLUTE LYMPHOCYTES# (MANUAL) 1.2 10^3/uL (0.5-4.7); ABSOLUTE MONOCYTES # (MANUAL) 1.2 10^3/uL (0.1-1.4); BASOPHILS % (MANUAL) 0 % (0-2); EOSINOPHILS % (MANUAL) 0 % (0-6); LYMPHOCYTES % (MANUAL) 3 % (13-45); MONOCYTES % (MANUAL) 3 % (3-13); SEGMENTED NEUTROPHILS % (MAN) 94 % (42-78); TOTAL CELLS COUNTED 100
[2018-10-13 19:56] LABS: PLATELET COMMENT ADEQUATE; PLATELET GIANT PRESENT; PLATELET LARGE PRESENT
[2018-10-13 19:58] LABS: ANISOCYTOSIS 2+; HYPOCHROMASIA 1+; TOXIC VACUOLATION PRESENT
[2018-10-13 20:00] LABS: OVALOCYTES SLIGHT; POIKILOCYTOSIS SLIGHT; POLYCHROMASIA SLIGHT; TEAR DROP CELLS SLIGHT
[2018-10-13 20:28] LABS: ALANINE AMINOTRANSFERASE 8 U/L (9-52); ALBUMIN 4.2 g/dL (3.5-5.0); ALKALINE PHOSPHATASE 263 U/L (38-126); ANION GAP 9 (5-19); ASPARTATE AMINO TRANSFERASE 27 U/L (14-36); BILIRUBIN,DIRECT 0.4 mg/dL (0.0-0.4); BLOOD UREA NITROGEN 19 mg/dL (7-20); CALCIUM 9.4 mg/dL (8.4-10.2); CARBON DIOXIDE 33 mmol/L (22-30); CHLORIDE 99 mmol/L (98-107); LIPASE 190.2 U/L (23-300); POTASSIUM 4.3 mmol/L (3.6-5.0); SODIUM 140.6 mmol/L (137-145); TOTAL PROTEIN 8.2 g/dL (6.3-8.2)
--- NOTE | 2018-10-13 20:32 | RADIOLOGY REPORT (SQ) ---
XR CHEST 1 VIEW HISTORY: hypoxia. COMPARISON: 09/26/2018 FINDINGS: The heart size is normal. The lungs are clear. No pleural effusions or pneumothorax is seen. No acute bony findings. IMPRESSION: No evidence of acute cardiopulmonary disease.
[2018-10-13 20:42] LABS: GLUCOSE 439 mg/dL (75-110)
[2018-10-13] MEDS ORDERED: DEXTROSE 50%-WATER 25 GM/50 ML DISP.SYRIN IV PRN ×2 (21:15)
[2018-10-13] MEDS ORDERED: PROMETHAZINE HCL 25 MG SUPP.RECT PR PRN (21:15)
[2018-10-13] MEDS ORDERED: DEXTROSE 40% GEL 15 GM TUBE PO PRN ×2 (21:15)
[2018-10-13] MEDS ORDERED: IPRATROPIUM/ALBUTEROL 0.5-2.5 MG/3 ML AMPUL NEB PRN (21:15)
[2018-10-13] MEDS ORDERED: MAGNESIUM HYDROXIDE SUSP 30 ML UDCUP PO PRN (21:15)
[2018-10-13] MEDS ORDERED: GLUCAGON,HUMAN RECOMB 1 MG INJ IM PRN (21:15)
[2018-10-13] MEDS ORDERED: ACETAMINOPHEN 325 MG TABLET PO PRN (21:15)
[2018-10-13] MEDS ORDERED: MAG HYDROX/AL HYDROX/SIMETH SUSP 30 ML UDCUP PO PRN (21:15)
[2018-10-13] MEDS ORDERED: HYDRALAZINE HCL INJ/PF 20 MG/1 ML SDV IV PRN (21:20)
[2018-10-13 21:27] LABS: APPEARANCE,URINE CLOUDY; BILIRUBIN,URINE NEGATIVE (NEGATIVE); GLUCOSE, URINE >=500 mg/dL (NEGATIVE); KETONES,URINE TRACE mg/dL (NEGATIVE); LEUKOCYTE ESTERASE,URINE MODERATE (NEGATIVE); NITRITE,URINE NEGATIVE (NEGATIVE); PROTEIN,URINE 30 mg/dL (NEGATIVE); URINE SPECIFIC GRAVITY 1.018
[2018-10-13 21:30] LABS: COLOR,URINE YELLOW
[2018-10-13 21:34] LABS: INTERNATIONAL RATION (INR) 1.11; PROTHROMBIN TIME 14.9 SEC (11.4-15.4)
[2018-10-13] MEDS: GABAPENTIN 300 MG CAPSULE PO SCH (22:49)
[2018-10-13] MEDS: INSULIN LISPRO 100 UNIT/ML 3 ML VIAL SUBCUT SCH (23:34)
[2018-10-14 00:55] LABS: HEMATOCRIT 47.1 % (36.0-47.0); HEMOGLOBIN 14.9 g/dL (12.0-15.5); MEAN CORPUSCULAR HEMOGLOBIN 20.7 pg (27.0-33.4); MEAN CORPUSCULAR HGB CONC 31.6 g/dL (32.0-36.0); MEAN CORPUSCULAR VOLUME 66 fl (80-97); PLATELET COUNT 286 10^3/uL (150-450); RED CELL DISTRIBUTION WIDTH 24.8 % (11.5-14.0)
[2018-10-14 00:58] LABS: RED BLOOD COUNT 7.18 10^6/uL (3.72-5.28)
--- NOTE | 2018-10-14 01:41 | RADIOLOGY REPORT (SQ) ---
EXAM DESCRIPTION: XR ABDOMEN 2 VIEWS SUPINE ERECT COMPLETED DATE/TME: 10/13/2018 23:03 CLINICAL HISTORY: 83 years, Female, pain COMPARISON: None. NUMBER OF VIEWS: Two TECHNIQUE: Supine and upright images of the abdomen LIMITATIONS: None. FINDINGS: No intraperitoneal free air. The bowel gas pattern is normal. Cholecystectomy clips are noted. There are no abnormal calcifications. There is no acute fracture. IMPRESSION: Nonobstructing bowel gas pattern. copyright 2010 [employer]- All Rights Reserved
[2018-10-14 03:38] LABS: ABSOLUTE RETICS # 0.163 10^6/uL (0.028-0.122); RETICULOCYTE COUNT (AUTO) 2.25 % (0.66-2.85)
[2018-10-14 05:10] LABS: HEMATOCRIT 47.8 % (36.0-47.0); HEMOGLOBIN 15.1 g/dL (12.0-15.5); MEAN CORPUSCULAR HEMOGLOBIN 20.7 pg (27.0-33.4); MEAN CORPUSCULAR HGB CONC 31.6 g/dL (32.0-36.0); MEAN CORPUSCULAR VOLUME 66 fl (80-97); PLATELET COUNT 270 10^3/uL (150-450); RED CELL DISTRIBUTION WIDTH 24.7 % (11.5-14.0)
[2018-10-14 05:29] LABS: ABSOLUTE LYMPHOCYTES# (MANUAL) 0.8 10^3/uL (0.5-4.7); ABSOLUTE MONOCYTES # (MANUAL) 0.8 10^3/uL (0.1-1.4); ABSOLUTE NEUTROPHILS# (MANUAL) 39.8 10^3/uL (1.7-8.2); BAND NEUTROPHILS % (MANUAL) 3 % (3-5); BASOPHILS % (MANUAL) 0 % (0-2); EOSINOPHILS % (MANUAL) 2 % (0-6); LYMPHOCYTES % (MANUAL) 1 % (13-45); MONOCYTES % (MANUAL) 2 % (3-13); SEGMENTED NEUTROPHILS % (MAN) 91 % (42-78); TOTAL CELLS COUNTED 100
[2018-10-14 05:30] LABS: ANISOCYTOSIS 3+; IRON(TIBC) 25.4 ug/dL (37-170); PLATELET CLUMPS PRESENT; PLATELET COMMENT ADEQUATE; TOXIC VACUOLATION PRESENT
[2018-10-14 05:35] LABS: ANION GAP 9 (5-19); BLOOD UREA NITROGEN 16 mg/dL (7-20); CALCIUM 9.2 mg/dL (8.4-10.2); CARBON DIOXIDE 30 mmol/L (22-30); CHLORIDE 104 mmol/L (98-107); GLUCOSE 228 mg/dL (75-110); POTASSIUM 4.2 mmol/L (3.6-5.0); SODIUM 143.4 mmol/L (137-145)
[2018-10-14 05:41] LABS: WHITE BLOOD COUNT 42.3 10^3/uL (4.0-10.5)
[2018-10-14] MEDS ORDERED: LACTULOSE SYRUP 20 GM/30 ML UDCUP PO ONE (05:43)
[2018-10-14] MEDS: PANTOPRAZOLE SODIUM 40 MG VIAL IV PRN (05:58)
[2018-10-14] MEDS: INSULIN LISPRO 100 UNIT/ML 3 ML VIAL SUBCUT SCH ×4 (06:15→23:26)
--- NOTE | 2018-10-14 06:16 | PDOC H&P ---
History of Present Illness Admission Date/PCP: 10/13/18 22:01 SOFI GUERRIER MD Patient complains of: Constipation and vomiting History of Present Illness: ORACIO PEDROZA is a 83 year old female with past medical history of chronically elevated white blood cell count, coronary artery disease, diabetes, hypertension, depression and remote GI bleed. Patient presents shortly after an episode of vomiting dark feculent material preceded by abdominal pain. The patient cannot recall her last bowel movement secondary to severe constipation. In the emergency room she has a CBC which remains at baseline from 2 weeks ago and Hemoccult negative stool. She is started on IV Protonix and referred to the hospitalist for admission. Past Medical History Cardiac Medical History: Reports: Congestive Heart Failure, Coronary Artery Disease, Myocardial Infarction - x2, Hyperlipidema, Hypertension, Pulmonary Embolism - Distant history Denies: Atrial Fibrillation Pulmonary Medical History: Denies: Asthma, Chronic Obstructive Pulmonary Disease (COPD) Neurological Medical History: Denies: Seizures Endocrine Medical History: Reports: Diabetes Mellitus Type 2 Denies: Diabetes Mellitus Type 1, Hyperthyroidism, Hypothyroidism Malignancy Medical History: Reports: Skin Cancer - Excised from her nose. 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 Past Surgical History Past Surgical History: Reports: Appendectomy, Cholecystectomy, Hysterectomy, Tonsillectomy, Vascular Surgery, Other - Cardiac loop recorder, bilateral cataract surgery, hemorrhoidectomy Social History Information Source: Patient, Emergency Med Personnel, [facility] Records Lives with: Family Smoking Status: Former Smoker Frequency of Alcohol Use: None Hx Recreational Drug Use: No Drugs: None Hx Prescription Drug Abuse: No - Advance Directive Resuscitation Status: Full Code Family History Family History: CAD, COPD, DM, Hyperlipidemia, Hypertension, Malignancy - Father with lung cancer. Cousin with leukemia. 3 brothers with unknown cancers. Mother also of unknown type of cancer., Other Parental Family History Reviewed: Yes Children Family History Reviewed: Yes Sibling(s) Family History Reviewed.: Yes Medication/Allergy Home Medications: Aspirin [Aspirin EC] 81 mg PO DAILY 05/18/18 Buspirone HCl [Buspar 15 mg Tablet] 15 mg PO Q12 05/18/18 Clopidogrel Bisulfate [Plavix 75 mg Tablet] 75 mg PO DAILY 05/18/18 Furosemide [Lasix 40 mg Tablet] 40 mg PO DAILY #30 tablet 05/18/18 Gabapentin [Neurontin 300 mg Capsule] 300 mg PO Q12 05/18/18 Insulin Aspart Protam & Aspart [Novolog Mix 70-30 Vial] 65 unit SQ BID 05/18/18 Metoprolol Tartrate [Lopressor 50 mg Tablet] 50 mg PO Q12 05/18/18 Pantoprazole Sodium [Protonix] 40 mg PO DAILY 05/18/18 Ranolazine [Ranexa 500 mg Tab.sr] 500 mg PO Q8 05/18/18 Sertraline HCl [Zoloft] 25 mg PO DAILY 05/18/18 Sitagliptin Phosphate [Januvia] 100 mg PO DAILY 05/18/18 Isosorbide Dinitrate [Isordil Titradose 20 mg Tablet] 30 mg PO DAILY tablet 09/27/18 Losartan Potassium [Cozaar 50 mg Tablet] 50 mg PO DAILY tablet 09/27/18 Nitrofurantoin Monohyd/M-Cryst [Macrobid 100 mg Capsule] 100 mg PO BID 10/13/18 Allergies/Adverse Reactions: morphine Allergy (Mild, Verified 08/04/18 16:32) Review of Systems Constitutional: PRESENT: anorexia, fatigue. ABSENT: chills, fever(s), headache(s), weight gain, weight loss Eyes: ABSENT: visual disturbances Ears: ABSENT: hearing changes Cardiovascular: ABSENT: chest pain, dyspnea on exertion, edema, orthropnea, palpitations Respiratory: ABSENT: cough, hemoptysis Gastrointestinal: PRESENT: abdominal pain, bloating, constipation, nausea. ABSENT: diarrhea, hematemesis, hematochezia, vomiting Genitourinary: ABSENT: dysuria, hematuria Musculoskeletal: ABSENT: joint swelling Integumentary: ABSENT: rash, wounds Neurological: ABSENT: abnormal gait, abnormal speech, confusion, dizziness, focal weakness, syncope Psychiatric: ABSENT: anxiety, depression, homidical ideation, suicidal ideation Endocrine: ABSENT: cold intolerance, heat intolerance, polydipsia, polyuria Hematologic/Lymphatic: ABSENT: easy bleeding, easy bruising Physical Exam Vital Signs: Temp Pulse Resp BP Pulse Ox 98.6 F 96 19 166/73 H 93 10/14/18 01:35 10/14/18 02:00 10/14/18 01:35 10/14/18 01:35 10/14/18 01:35 Intake & Output 10/12/18 10/13/18 10/14/18 11:59 11:59 11:59 Weight 94.1 kg General appearance: PRESENT: cooperative, mild distress, well-developed, well- nourished Head exam: PRESENT: atraumatic, normocephalic Eye exam: PRESENT: conjunctiva pink, EOMI, PERRLA. ABSENT: scleral icterus Ear exam: PRESENT: normal external ear exam Mouth exam: PRESENT: moist, tongue midline Neck exam: ABSENT: carotid bruit, JVD, lymphadenopathy, thyromegaly Respiratory exam: PRESENT: clear to auscultation carmen. ABSENT: rales, rhonchi, wheezes Cardiovascular exam: PRESENT: RRR. ABSENT: diastolic murmur, rubs, systolic murmur Pulses: PRESENT: normal dorsalis pedis pul Vascular exam: PRESENT: normal capillary refill GI/Abdominal exam: PRESENT: diminished bowel sounds, hypoactive bowel sounds, no rmal bowel sounds, soft, tenderness - Without guarding. ABSENT: distended, guarding, mass, organolmegaly, rebound Rectal exam: PRESENT: deferred Extremities exam: PRESENT: full ROM. ABSENT: calf tenderness, clubbing, pedal edema Neurological exam: PRESENT: alert, awake, oriented to person, oriented to place, oriented to time, oriented to situation, CN II-XII grossly intact. ABSENT: motor sensory deficit Psychiatric exam: PRESENT: appropriate affect, normal mood. ABSENT: homicidal ideation, suicidal ideation Skin exam: PRESENT: dry, intact, warm. ABSENT: cyanosis, rash Results Laboratory Results: 10/14/18 04:41 10/14/18 04:41 10/13/18 10/13/18 10/13/18 19:00 19:00 19:00 WBC 39.4 H* RBC 7.54 H Hgb 15.5 Hct 49.9 H MCV 66 L MCH 20.6 L MCHC 31.1 L RDW 25.7 H Plt Count 274 Seg Neutrophils % Not Reportable Lymphocytes % Not Reportable Monocytes % Not Reportable Eosinophils % Not Reportable Basophils % Not Reportable Absolute Neutrophils Not Reportable Absolute Lymphocytes Not Reportable Absolute Monocytes Not Reportable Absolute Eosinophils Not Reportable Absolute Basophils Not Reportable Retic Count (auto) Absolute Retic Sodium Cancelled Potassium Cancelled Chloride Cancelled Carbon Dioxide Cancelled Anion Gap Cancelled BUN Cancelled Creatinine Cancelled Est GFR ( Amer) Cancelled Est GFR (Non-Af Amer) Cancelled Glucose Cancelled Lactic Acid 1.7 Calcium Cancelled Total Bilirubin Cancelled AST Cancelled ALT Cancelled Alkaline Phosphatase Cancelled Total Protein Cancelled Albumin Cancelled Lipase Cancelled Urine Color Urine Appearance Urine pH Ur Specific [place] Urine Protein Urine Glucose (UA) Urine Ketones Urine Blood Urine Nitrite Ur Leukocyte Esterase Urine WBC (Auto) Urine RBC (Auto) Blood Type Antibody Screen 10/13/18 10/13/18 10/13/18 19:00 20:00 20:00 WBC RBC Hgb Hct MCV MCH MCHC RDW Plt Count Seg Neutrophils % Lymphocytes % Monocytes % Eosinophils % Basophils % Absolute Neutrophils Absolute Lymphocytes Absolute Monocytes Absolute Eosinophils Absolute Basophils Retic Count (auto) Absolute Retic Sodium 140.6 Potassium 4.3 Chloride 99 Carbon Dioxide 33 H Anion Gap 9 BUN 19 Creatinine 1.08 Est GFR ( Amer) 59 L Est GFR (Non-Af Amer) 48 L Glucose 439 H* Lactic Acid Calcium 9.4 Total Bilirubin 1.0 AST 27 ALT 8 L Alkaline Phosphatase 263 H Total Protein 8.2 Albumin 4.2 Lipase 190.2 Urine Color Urine Appearance Urine pH Ur Specific [place] Urine Protein Urine Glucose (UA) Urine Ketones Urine Blood Urine Nitrite Ur Leukocyte Esterase Urine WBC (Auto) Urine RBC (Auto) Blood Type Cancelled O NEGATIVE Antibody Screen Cancelled NEGATIVE 10/13/18 10/14/18 10/14/18 20:50 00:40 00:40 WBC 44.0 H* RBC 7.18 H Hgb 14.9 Hct 47.1 H MCV 66 L MCH 20.7 L MCHC 31.6 L RDW 24.8 H Plt Count 286 Seg Neutrophils % Lymphocytes % Monocytes % Eosinophils % Basophils % Absolute Neutrophils Absolute Lymphocytes Absolute Monocytes Absolute Eosinophils Absolute Basophils Retic Count (auto) 2.25 Absolute Retic 0.163 H Sodium Potassium Chloride Carbon Dioxide Anion Gap BUN Creatinine Est GFR ( Amer) Est GFR (Non-Af Amer) Glucose Lactic Acid Calcium Total Bilirubin AST ALT Alkaline Phosphatase Total Protein Albumin Lipase Urine Color YELLOW Urine Appearance CLOUDY Urine pH 6.0 Ur Specific [place] 1.018 Urine Protein 30 H Urine Glucose (UA) >=500 H Urine Ketones TRACE H Urine Blood LARGE H Urine Nitrite NEGATIVE Ur Leukocyte Esterase MODERATE H Urine WBC (Auto) 38 Urine RBC (Auto) 22 Blood Type Antibody Screen 10/14/18 10/14/18 04:41 04:41 WBC 42.3 H* RBC 7.30 H Hgb 15.1 Hct 47.8 H MCV 66 L MCH 20.7 L MCHC 31.6 L RDW 24.7 H Plt Count 270 Seg Neutrophils % Not Reportable Lymphocytes % Not Reportable Monocytes % Not Reportable Eosinophils % Not Reportable Basophils % Not Reportable Absolute Neutrophils Not Reportable Absolute Lymphocytes Not Reportable Absolute Monocytes Not Reportable Absolute Eosinophils Not Reportable Absolute Basophils Not Reportable Retic Count (auto) Absolute Retic Sodium 143.4 Potassium 4.2 Chloride 104 Carbon Dioxide 30 Anion Gap 9 BUN 16 Creatinine 0.87 Est GFR ( Amer) > 60 Est GFR (Non-Af Amer) > 60 Glucose 228 H Lactic Acid Calcium 9.2 Total Bilirubin AST ALT Alkaline Phosphatase Total Protein Albumin Lipase Urine Color Urine Appearance Urine pH Ur Specific [place] Urine Protein Urine Glucose (UA) Urine Ketones Urine Blood Urine Nitrite Ur Leukocyte Esterase Urine WBC (Auto) Urine RBC (Auto) Blood Type Antibody Screen Impressions: Chest X-Ray 10/13/18 19:30 IMPRESSION: No evidence of acute cardiopulmonary disease. Abdomen X-Ray 10/13/18 23:03 IMPRESSION: Nonobstructing bowel gas pattern. copyright 2011 [employer] [facility] [employer]- All Rights Reserved Assessment & Plan - Diagnosis (1) Nausea and vomiting Qualifiers: Vomiting type: unspecified Vomiting Intractability: non-intractable Qualified Code(s): R11.2 - Nausea with vomiting, unspecified Is this a current diagnosis for this admission?: Yes Plan: No evidence for GI bleed, discontinue Protonix, symptomatic management, Fleet enema, and bowel regiment (2) Constipation Is this a current diagnosis for this admission?: Yes Plan: No evidence for obstruction on imaging, Fleet enema, lactulose and GoLYTELY followed by bowel regiment - Time Time Spent: 50 to 70 Minutes - Inpatient Certification Medical Necessity: Need Close Monitoring Due to Risk of Patient Decompensation
[2018-10-14 06:50] LABS: FOLATE > 20.00 ng/mL (>2.76)
[2018-10-14] MEDS ORDERED: NA PHOS,M-B/NA PHOS,DI-BA (ADULT) 133 ML ENEMA PR ONE (07:00)
[2018-10-14] MEDS ORDERED: (PENDING PHARMACY ID) (Insulin Aspart Protam & Aspart [Novolog Mix 70-30 Vial] 20 UNIT) SQ SCH (10:00)
--- NOTE | 2018-10-14 10:58 | PDOC PROGRESS REPORT ---
Subjective Progress Note for:: 10/14/18 Subjective:: She has continued abd pain, moderate, diffuse and achy, nothing yet has made it better. , no emesis since admission, feels extremely thirsty, no stool since arrival. No CP, she has ahd an DC in the past. No SOB. NO fever or chills. Reason For Visit: GI BLEED Physical Exam Vital Signs: Temp Pulse Resp BP Pulse Ox 98.4 F 106 H 20 133/77 H 86 L 10/14/18 06:21 10/14/18 06:21 10/14/18 06:21 10/14/18 06:21 10/14/18 06:21 Intake & Output 10/13/18 10/14/18 10/15/18 06:59 06:59 06:59 Weight 90.2 kg General appearance: PRESENT: no acute distress, cooperative, obese Head exam: PRESENT: atraumatic, normocephalic Eye exam: ABSENT: conjunctival injection, scleral icterus Ear exam: PRESENT: normal external ear exam Mouth exam: PRESENT: dry mucosa, tongue midline Respiratory exam: PRESENT: clear to auscultation carmen, unlabored. ABSENT: rales, rhonchi, wheezes Cardiovascular exam: PRESENT: RRR. ABSENT: systolic murmur Pulses: PRESENT: normal radial pulses GI/Abdominal exam: PRESENT: ascites, soft, tenderness. ABSENT: distended, guarding, hypoactive bowel sounds, rebound, rigid Rectal exam: PRESENT: deferred Extremities exam: ABSENT: calf tenderness, pedal edema Neurological exam: PRESENT: alert, awake, oriented to person, oriented to place, oriented to situation, CN II-XII grossly intact Psychiatric exam: PRESENT: appropriate affect. ABSENT: anxious Skin exam: PRESENT: dry, intact, warm Results Laboratory Results: 10/14/18 04:41 10/14/18 04:41 10/13/18 10/13/18 10/13/18 19:00 19:00 19:00 WBC 39.4 H* RBC 7.54 H Hgb 15.5 Hct 49.9 H MCV 66 L MCH 20.6 L MCHC 31.1 L RDW 25.7 H Plt Count 274 Seg Neutrophils % Not Reportable Lymphocytes % Not Reportable Monocytes % Not Reportable Eosinophils % Not Reportable Basophils % Not Reportable Absolute Neutrophils Not Reportable Absolute Lymphocytes Not Reportable Absolute Monocytes Not Reportable Absolute Eosinophils Not Reportable Absolute Basophils Not Reportable Retic Count (auto) Absolute Retic Sodium Cancelled Potassium Cancelled Chloride Cancelled Carbon Dioxide Cancelled Anion Gap Cancelled BUN Cancelled Creatinine Cancelled Est GFR ( Amer) Cancelled Est GFR (Non-Af Amer) Cancelled Glucose Cancelled Lactic Acid 1.7 Calcium Cancelled Iron TIBC % Saturation Ferritin Total Bilirubin Cancelled AST Cancelled ALT Cancelled Alkaline Phosphatase Cancelled Total Protein Cancelled Albumin Cancelled Lipase Cancelled Vitamin B12 Folate Urine Color Urine Appearance Urine pH Ur Specific [place] Urine Protein Urine Glucose (UA) Urine Ketones Urine Blood Urine Nitrite Ur Leukocyte Esterase Urine WBC (Auto) Urine RBC (Auto) Blood Type Antibody Screen 10/13/18 10/13/18 10/13/18 19:00 20:00 20:00 WBC RBC Hgb Hct MCV MCH MCHC RDW Plt Count Seg Neutrophils % Lymphocytes % Monocytes % Eosinophils % Basophils % Absolute Neutrophils Absolute Lymphocytes Absolute Monocytes Absolute Eosinophils Absolute Basophils Retic Count (auto) Absolute Retic Sodium 140.6 Potassium 4.3 Chloride 99 Carbon Dioxide 33 H Anion Gap 9 BUN 19 Creatinine 1.08 Est GFR ( Amer) 59 L Est GFR (Non-Af Amer) 48 L Glucose 439 H* Lactic Acid Calcium 9.4 Iron TIBC % Saturation Ferritin Total Bilirubin 1.0 AST 27 ALT 8 L Alkaline Phosphatase 263 H Total Protein 8.2 Albumin 4.2 Lipase 190.2 Vitamin B12 Folate Urine Color Urine Appearance Urine pH Ur Specific [place] Urine Protein Urine Glucose (UA) Urine Ketones Urine Blood Urine Nitrite Ur Leukocyte Esterase Urine WBC (Auto) Urine RBC (Auto) Blood Type Cancelled O NEGATIVE Antibody Screen Cancelled NEGATIVE 10/13/18 10/14/18 10/14/18 20:50 00:40 00:40 WBC 44.0 H* RBC 7.18 H Hgb 14.9 Hct 47.1 H MCV 66 L MCH 20.7 L MCHC 31.6 L RDW 24.8 H Plt Count 286 Seg Neutrophils % Lymphocytes % Monocytes % Eosinophils % Basophils % Absolute Neutrophils Absolute Lymphocytes Absolute Monocytes Absolute Eosinophils Absolute Basophils Retic Count (auto) 2.25 Absolute Retic 0.163 H Sodium Potassium Chloride Carbon Dioxide Anion Gap BUN Creatinine Est GFR ( Amer) Est GFR (Non-Af Amer) Glucose Lactic Acid Calcium Iron TIBC % Saturation Ferritin Total Bilirubin AST ALT Alkaline Phosphatase Total Protein Albumin Lipase Vitamin B12 Folate Urine Color YELLOW Urine Appearance CLOUDY Urine pH 6.0 Ur Specific [place] 1.018 Urine Protein 30 H Urine Glucose (UA) >=500 H Urine Ketones TRACE H Urine Blood LARGE H Urine Nitrite NEGATIVE Ur Leukocyte Esterase MODERATE H Urine WBC (Auto) 38 Urine RBC (Auto) 22 Blood Type Antibody Screen 10/14/18 10/14/18 10/14/18 04:41 04:41 04:41 WBC 42.3 H* RBC 7.30 H Hgb 15.1 Hct 47.8 H MCV 66 L MCH 20.7 L MCHC 31.6 L RDW 24.7 H Plt Count 270 Seg Neutrophils % Not Reportable Lymphocytes % Not Reportable Monocytes % Not Reportable Eosinophils % Not Reportable Basophils % Not Reportable Absolute Neutrophils Not Reportable Absolute Lymphocytes Not Reportable Absolute Monocytes Not Reportable Absolute Eosinophils Not Reportable Absolute Basophils Not Reportable Retic Count (auto) Absolute Retic Sodium 143.4 Potassium 4.2 Chloride 104 Carbon Dioxide 30 Anion Gap 9 BUN 16 Creatinine 0.87 Est GFR ( Amer) > 60 Est GFR (Non-Af Amer) > 60 Glucose 228 H Lactic Acid Calcium 9.2 Iron 25.4 L TIBC 349 % Saturation 7 Ferritin 32.90 Total Bilirubin AST ALT Alkaline Phosphatase Total Protein Albumin Lipase Vitamin B12 > 1000.0 H Folate > 20.00 Urine Color Urine Appearance Urine pH Ur Specific [place] Urine Protein Urine Glucose (UA) Urine Ketones Urine Blood Urine Nitrite Ur Leukocyte Esterase Urine WBC (Auto) Urine RBC (Auto) Blood Type Antibody Screen Impressions: Chest X-Ray 10/13/18 19:30 IMPRESSION: No evidence of acute cardiopulmonary disease. Abdomen X-Ray 10/13/18 23:03 IMPRESSION: Nonobstructing bowel gas pattern. copyright 2010 [employer]- All Rights Reserved Assessment & Plan - Diagnosis (1) Constipation Is this a current diagnosis for this admission?: Yes Plan: seen on plain films, fleets enema ordered, no stool, golytely now ordered and pending. Fecal occult blood neg, hgb stable from 2 weeks ago, no evidence for GI bleed and PPI stopped. (2) Nausea and vomiting Qualifiers: Vomiting type: unspecified Vomiting Intractability: non-intractable Qualified Code(s): R11.2 - Nausea with vomiting, unspecified Is this a current diagnosis for this admission?: Yes Plan: likely due to severe constipation, none since admit, see problem number one. Ice chips for comfort. (3) Abdominal pain Is this a current diagnosis for this admission?: Yes Plan: likely due to severe constipation, see plan for constipation, on exam and on imaging no evidence for other acute abd process (4) Diabetes mellitus type 2 in obese Is this a current diagnosis for this admission?: Yes Plan: short acting insulin for now, will review med list and start home meds as appropriate (5) Leukocytosis Qualifiers: Leukocytosis type: unspecified Qualified Code(s): D72.829 - Elevated white blood cell count, unspecified Is this a current diagnosis for this admission?: Yes Plan: per chart review this is chronic. will investigate further to see if any action needed now. - Time Time Spent with patient: 15-24 minutes Medications reviewed and adjusted accordingly: Yes Anticipated discharge: Home - Inpatient Certification Based on my medical assessment, after consideration of the patient's comorbidities, presenting symptoms, or acuity I expect that the services needed warrant INPATIENT care.: Yes I certify that my determination is in accordance with my understanding of Medicare's requirements for reasonable and necessary INPATIENT services [42 CFR 412.3e].: Yes Medical Necessity: Failure to Improve With Outpatient Therapy, Need For IV Fluids, Need for Pain Control
[2018-10-14] MEDS ORDERED: PEG 3350/NA SULF,BICARB,CL/KCL 4000 ML PO ONE (11:00)
[2018-10-14] MEDS: GABAPENTIN 300 MG CAPSULE PO SCH ×2 (11:28→23:26)
[2018-10-14] MEDS: PEG 3350/NA SULF,BICARB,CL/KCL 4000 ML PO ONE ×2 (11:28)
[2018-10-14] MEDS: NA PHOS,M-B/NA PHOS,DI-BA (ADULT) 133 ML ENEMA PR SCH (18:08)
[2018-10-15 05:22] LABS: HEMOGLOBIN 15.7 g/dL (12.0-15.5); MEAN CORPUSCULAR HEMOGLOBIN 20.9 pg (27.0-33.4); MEAN CORPUSCULAR HGB CONC 31.4 g/dL (32.0-36.0); MEAN CORPUSCULAR VOLUME 67 fl (80-97); PLATELET COUNT 246 10^3/uL (150-450); RED CELL DISTRIBUTION WIDTH 24.7 % (11.5-14.0)
[2018-10-15 05:33] LABS: ANION GAP 11 (5-19); BLOOD UREA NITROGEN 17 mg/dL (7-20); CALCIUM 8.8 mg/dL (8.4-10.2); CARBON DIOXIDE 29 mmol/L (22-30); CHLORIDE 104 mmol/L (98-107); GLUCOSE 189 mg/dL (75-110); POTASSIUM 4.1 mmol/L (3.6-5.0); SODIUM 144.1 mmol/L (137-145)
[2018-10-15 05:44] LABS: WHITE BLOOD COUNT 41.6 10^3/uL (4.0-10.5)
[2018-10-15 05:45] LABS: RED BLOOD COUNT 7.51 10^6/uL (3.72-5.28)
[2018-10-15] MEDS: INSULIN LISPRO 100 UNIT/ML 3 ML VIAL SUBCUT SCH ×4 (05:59→22:01)
[2018-10-15] MEDS: NA PHOS,M-B/NA PHOS,DI-BA (ADULT) 133 ML ENEMA PR SCH ×2 (06:00→17:30)
[2018-10-15] MEDS ORDERED: DEXTROSE 50%-WATER 25 GM/50 ML DISP.SYRIN IV PRN ×2 (10:01)
[2018-10-15] MEDS ORDERED: DEXTROSE 40% GEL 15 GM TUBE PO PRN ×2 (10:01)
[2018-10-15] MEDS ORDERED: GLUCAGON,HUMAN RECOMB 1 MG INJ IM PRN (10:01)
[2018-10-15] MEDS: GABAPENTIN 300 MG CAPSULE PO SCH ×2 (10:16→21:37)
[2018-10-15] MEDS: NYSTATIN CREAM 15 GM TP SCH ×2 (11:46→22:02)
[2018-10-15] MEDS ORDERED: CLOPIDOGREL BISULFATE 75 MG TABLET PO ONE (12:05)
[2018-10-15] MEDS ORDERED: ISOSORBIDE DINITRATE 20 MG TABLET PO ONE (12:06)
[2018-10-15] MEDS ORDERED: LOSARTAN POTASSIUM 50 MG TABLET PO ONE (12:07)
--- NOTE | 2018-10-15 12:14 | PDOC PROGRESS REPORT ---
Subjective Progress Note for:: 10/15/18 Subjective:: She has had 3 bowel movements since finishing her GoLYTELY. She her abdominal pain is improved almost completely resolved. She has had no blood in her stools. No emesis and no active bleeding seen anywhere. No chest pain or difficulty breathing. He is extremely hungry. Reason For Visit: GI BLEED Physical Exam Vital Signs: Temp Pulse Resp BP Pulse Ox 98.2 F 88 18 151/64 H 92 10/15/18 08:42 10/15/18 08:42 10/15/18 08:42 10/15/18 08:42 10/15/18 08:42 Intake & Output 10/14/18 10/15/18 10/16/18 06:59 06:59 06:59 Intake Total 0 Output Total 0 Balance 0 Weight 90.2 kg 92.6 kg General appearance: PRESENT: no acute distress, cooperative, obese Head exam: PRESENT: atraumatic, normocephalic Eye exam: PRESENT: EOMI. ABSENT: conjunctival injection, scleral icterus Ear exam: PRESENT: normal external ear exam Mouth exam: PRESENT: dry mucosa Respiratory exam: PRESENT: clear to auscultation carmen, unlabored. ABSENT: rales, rhonchi, wheezes Pulses: PRESENT: normal radial pulses, normal dorsalis pedis pul GI/Abdominal exam: PRESENT: normal bowel sounds, soft. ABSENT: ascites, distended, firm, guarding, tenderness Rectal exam: PRESENT: deferred Gentrourinary exam: ABSENT: indwelling catheter Extremities exam: PRESENT: pedal edema Musculoskeletal exam: PRESENT: normal inspection Neurological exam: PRESENT: alert, awake, oriented to person, oriented to place, oriented to situation, CN II-XII grossly intact. ABSENT: aphasic Psychiatric exam: PRESENT: appropriate affect, normal mood. ABSENT: anxious Skin exam: PRESENT: other - Sacral decubitus ulcer mixed stage I and stage II, edema and skin breakdown under the bilateral breasts, groin, pannus Results Laboratory Results: 10/15/18 04:29 10/15/18 04:29 10/15/18 10/15/18 04:29 04:29 WBC 41.6 H* RBC 7.51 H Hgb 15.7 H Hct 50.0 H MCV 67 L MCH 20.9 L MCHC 31.4 L RDW 24.7 H Plt Count 246 Sodium 144.1 Potassium 4.1 Chloride 104 Carbon Dioxide 29 Anion Gap 11 BUN 17 Creatinine 0.92 Est GFR ( Amer) > 60 Est GFR (Non-Af Amer) 58 L Glucose 189 H Calcium 8.8 Impressions: Chest X-Ray 10/13/18 19:30 IMPRESSION: No evidence of acute cardiopulmonary disease. Abdomen X-Ray 10/13/18 23:03 IMPRESSION: Nonobstructing bowel gas pattern. copyright 2010 [employer]- All Rights Reserved Assessment & Plan - Diagnosis (1) Constipation Is this a current diagnosis for this admission?: Yes Plan: Resolved with GoLYTELY. We will feed patient now. (2) Nausea and vomiting Qualifiers: Vomiting type: unspecified Vomiting Intractability: non-intractable Qualified Code(s): R11.2 - Nausea with vomiting, unspecified Is this a current diagnosis for this admission?: Yes Plan: No further nausea or vomiting. This was secondary to severe constipation. (3) Abdominal pain Is this a current diagnosis for this admission?: Yes Plan: Resolved with stooling. No evidence of bleeding. (4) Diabetes mellitus type 2 in obese Is this a current diagnosis for this admission?: Yes Plan: Patient has been started on pre-meal plan and we will continue the sliding scale short acting. (5) Leukocytosis Qualifiers: Leukocytosis type: unspecified Qualified Code(s): D72.829 - Elevated white blood cell count, unspecified Is this a current diagnosis for this admission?: Yes Plan: Chronic, unchanged. - Time Time Spent with patient: 25-34 minutes Medications reviewed and adjusted accordingly: Yes
[2018-10-15] MEDS: RANOLAZINE 500 MG TAB.SR.12H PO SCH ×2 (14:09→21:37)
[2018-10-15] MEDS: NITROFURANTOIN MONOHYD/M-CRYST 100 MG CAPSULE PO SCH (17:15)
[2018-10-15] MEDS: METOPROLOL TARTRATE 50 MG TABLET PO SCH (21:37)
[2018-10-15] MEDS: BUSPIRONE HCL 10 MG TABLET PO SCH (21:38)
[2018-10-16 05:24] LABS: ANION GAP 10 (5-19); BLOOD UREA NITROGEN 20 mg/dL (7-20); CARBON DIOXIDE 29 mmol/L (22-30); CHLORIDE 100 mmol/L (98-107); GLUCOSE 269 mg/dL (75-110); POTASSIUM 4.9 mmol/L (3.6-5.0); SODIUM 139.1 mmol/L (137-145)
[2018-10-16] MEDS: RANOLAZINE 500 MG TAB.SR.12H PO SCH ×3 (06:25→21:55)
[2018-10-16] MEDS: NA PHOS,M-B/NA PHOS,DI-BA (ADULT) 133 ML ENEMA PR SCH ×2 (06:25→17:31)
[2018-10-16] MEDS ORDERED: (PENDING PHARMACY ID) (Sertraline Hcl [Zoloft] 25 MG) PO SCH (10:00)
[2018-10-16] MEDS: INSULIN LISPRO 100 UNIT/ML 3 ML VIAL SUBCUT SCH ×8 (10:12→21:57)
[2018-10-16] MEDS: ISOSORBIDE DINITRATE 20 MG TABLET PO SCH (10:13)
[2018-10-16] MEDS: CLOPIDOGREL BISULFATE 75 MG TABLET PO SCH (10:13)
[2018-10-16] MEDS: GABAPENTIN 300 MG CAPSULE PO SCH ×2 (10:13→21:55)
[2018-10-16] MEDS: METOPROLOL TARTRATE 50 MG TABLET PO SCH ×2 (10:13→21:55)
[2018-10-16] MEDS: NITROFURANTOIN MONOHYD/M-CRYST 100 MG CAPSULE PO SCH ×2 (10:14→17:44)
[2018-10-16] MEDS: SITAGLIPTIN PHOSPHATE 50 MG TABLET PO SCH (10:14)
[2018-10-16] MEDS: SERTRALINE HCL 50 MG TABLET PO SCH (10:14)
[2018-10-16] MEDS: BUSPIRONE HCL 10 MG TABLET PO SCH ×2 (10:14→21:53)
[2018-10-16] MEDS: LOSARTAN POTASSIUM 50 MG TABLET PO SCH (10:14)
[2018-10-16] MEDS: ASPIRIN 81 MG TABLET, ENT COATED PO SCH (10:14)
[2018-10-16] MEDS: FUROSEMIDE 40 MG TABLET PO SCH (10:14)
[2018-10-16] MEDS: NYSTATIN CREAM 15 GM TP SCH ×2 (10:39→21:58)
[2018-10-16] MEDS: ONDANSETRON HCL INJ/PF 4 MG/2 ML SDV IV PRN (10:39)
[2018-10-16] MEDS ORDERED: INSULIN LISPRO 100 UNIT/ML 3 ML VIAL SUBCUT SCH ×2 (11:00)
--- NOTE | 2018-10-16 17:47 | PDOC PROGRESS REPORT ---
Subjective Progress Note for:: 10/16/18 Subjective:: No adverse events overnight. No new complaints. Vital signs been stable. She is been eating and drinking without difficulty. No more nausea or vomiting. She was still having some loose stools after the bowel prep. Reason For Visit: GI BLEED Physical Exam Vital Signs: Temp Pulse Resp BP Pulse Ox 98.6 F 84 18 145/58 H 94 10/16/18 15:32 10/16/18 15:32 10/16/18 15:32 10/16/18 15:32 10/16/18 15:32 Intake & Output 10/15/18 10/16/18 10/17/18 06:59 06:59 06:59 Intake Total 0 944 Output Total 0 Balance 0 944 Weight 92.6 kg 91.8 kg General appearance: PRESENT: no acute distress, cooperative, obese Respiratory exam: PRESENT: clear to auscultation carmen, unlabored. ABSENT: rales, rhonchi, wheezes Pulses: PRESENT: normal radial pulses, normal dorsalis pedis pul GI/Abdominal exam: PRESENT: normal bowel sounds, soft. ABSENT: ascites, distended, firm, guarding, tenderness Gentrourinary exam: ABSENT: indwelling catheter Extremities exam: PRESENT: pedal edema Musculoskeletal exam: PRESENT: normal inspection Neurological exam: PRESENT: alert, awake, oriented to person, oriented to place, oriented to situation Psychiatric exam: PRESENT: appropriate affect, normal mood. ABSENT: anxious Skin exam: PRESENT: other - Sacral decubitus ulcer mixed stage I and stage II, edema and skin breakdown under the bilateral breasts, groin, pannus Results Laboratory Results: 10/15/18 04:29 10/16/18 04:35 10/16/18 04:35 Sodium 139.1 Potassium 4.9 Chloride 100 Carbon Dioxide 29 Anion Gap 10 BUN 20 Creatinine 0.99 Est GFR ( Amer) > 60 Est GFR (Non-Af Amer) 54 L Glucose 269 H Calcium 9.0 Magnesium 1.7 10/13/18 20:50 Clean Catch Midstream Urine Culture - Final Mixed Skin. Possible Pathogen Impressions: Chest X-Ray 10/13/18 19:30 IMPRESSION: No evidence of acute cardiopulmonary disease. Abdomen X-Ray 10/13/18 23:03 IMPRESSION: Nonobstructing bowel gas pattern. copyright 2011 [employer]- All Rights Reserved Assessment & Plan - Diagnosis (1) Constipation Qualifiers: Constipation type: unspecified constipation type Qualified Code(s): K59.00 - Constipation, unspecified Is this a current diagnosis for this admission?: Yes Plan: Resolved after GoLYTELY bowel prep. Nausea and vomiting she initially had was due to this. That has resolved as well. (2) Acute kidney injury Is this a current diagnosis for this admission?: Yes Plan: Resolved (3) Leukocytosis Qualifiers: Leukocytosis type: unspecified Qualified Code(s): D72.829 - Elevated white blood cell count, unspecified Is this a current diagnosis for this admission?: Yes Plan: Chronic and stable (4) Pressure sore on sacrum Qualifiers: Pressure injury stage: stage 2 Qualified Code(s): L89.152 - Pressure ulcer of sacral region, stage 2 Is this a current diagnosis for this admission?: Yes Plan: Present on admission. Local wound care, turning every 2 hours. We are currently seeking placement in a long term facility. - Time Time Spent with patient: 25-34 minutes
[2018-10-16] MEDS: ZINC OXIDE 20% OINTMENT 28.35 GM TP PRN (21:56)
[2018-10-17] MEDS: RANOLAZINE 500 MG TAB.SR.12H PO SCH ×3 (05:49→22:37)
[2018-10-17] MEDS: NA PHOS,M-B/NA PHOS,DI-BA (ADULT) 133 ML ENEMA PR SCH ×2 (05:49→17:51)
[2018-10-17] MEDS: INSULIN LISPRO 100 UNIT/ML 3 ML VIAL SUBCUT SCH ×8 (08:18→22:37)
[2018-10-17] MEDS: BUSPIRONE HCL 10 MG TABLET PO SCH ×2 (09:23→22:35)
[2018-10-17] MEDS: SERTRALINE HCL 50 MG TABLET PO SCH (09:24)
[2018-10-17] MEDS: ISOSORBIDE DINITRATE 20 MG TABLET PO SCH (09:24)
[2018-10-17] MEDS: METOPROLOL TARTRATE 50 MG TABLET PO SCH ×2 (09:25→22:37)
[2018-10-17] MEDS: ASPIRIN 81 MG TABLET, ENT COATED PO SCH (09:26)
[2018-10-17] MEDS: FUROSEMIDE 40 MG TABLET PO SCH (09:26)
[2018-10-17] MEDS: SITAGLIPTIN PHOSPHATE 50 MG TABLET PO SCH (09:26)
[2018-10-17] MEDS: CLOPIDOGREL BISULFATE 75 MG TABLET PO SCH (09:27)
[2018-10-17] MEDS: LOSARTAN POTASSIUM 50 MG TABLET PO SCH (09:27)
[2018-10-17] MEDS: GABAPENTIN 300 MG CAPSULE PO SCH ×2 (09:27→22:37)
[2018-10-17] MEDS: NITROFURANTOIN MONOHYD/M-CRYST 100 MG CAPSULE PO SCH ×2 (09:27→18:01)
[2018-10-17] MEDS: NYSTATIN CREAM 15 GM TP SCH ×2 (09:28→22:38)
[2018-10-17] MEDS: ONDANSETRON HCL INJ/PF 4 MG/2 ML SDV IV PRN ×2 (12:32→18:01)
--- NOTE | 2018-10-17 17:16 | PDOC PROGRESS REPORT ---
Subjective Progress Note for:: 10/17/18 Subjective:: ORACIO PEDROZA is a 83 year old female with past medical history of chronically elevated white blood cell count, coronary artery disease, diabetes, hypertension, depression and remote GI bleed. Patient presents shortly after an episode of vomiting dark feculent material preceded by abdominal pain. The patient cannot recall her last bowel movement secondary to severe constipation. In the emergency room she has a CBC which remains at baseline from 2 weeks ago and Hemoccult negative stool. She is started on IV Protonix and referred to the hospitalist for admission. No acute events overnight. Patient complaining of diarrhea likely induced by GoLYTELY that she received for her chronic constipation. Denies any fever, chills, nausea, vomiting, constipation or any urinary symptoms. Reason For Visit: GI BLEED Physical Exam Vital Signs: Temp Pulse Resp BP Pulse Ox 98.8 F 83 18 116/71 93 10/17/18 15:33 10/17/18 15:33 10/17/18 15:33 10/17/18 15:33 10/17/18 15:33 Intake & Output 10/16/18 10/17/18 10/18/18 06:59 06:59 06:59 Intake Total 944 160 Balance 944 160 Weight 91.8 kg 91.4 kg General appearance: PRESENT: no acute distress, well-developed, well-nourished Head exam: PRESENT: atraumatic, normocephalic Respiratory exam: PRESENT: clear to auscultation carmen. ABSENT: rales, rhonchi, wheezes Cardiovascular exam: PRESENT: RRR. ABSENT: diastolic murmur, rubs, systolic murmur GI/Abdominal exam: PRESENT: normal bowel sounds, soft. ABSENT: distended, guarding, mass, organolmegaly, rebound, tenderness Extremities exam: PRESENT: full ROM. ABSENT: calf tenderness, clubbing, pedal edema Neurological exam: PRESENT: alert, awake, oriented to person, oriented to place, oriented to time, oriented to situation, CN II-XII grossly intact. ABSENT: motor sensory deficit Results Laboratory Results: 10/15/18 04:29 10/16/18 04:35 10/13/18 20:50 Clean Catch Midstream Urine Culture - Final Mixed Skin. Possible Pathogen Impressions: Chest X-Ray 10/13/18 19:30 IMPRESSION: No evidence of acute cardiopulmonary disease. Abdomen X-Ray 10/13/18 23:03 IMPRESSION: Nonobstructing bowel gas pattern. copyright 2010 [employer] All Rights Reserved Assessment & Plan - Diagnosis (1) Constipation Qualifiers: Constipation type: unspecified constipation type Qualified Code(s): K59.00 - Constipation, unspecified Is this a current diagnosis for this admission?: Yes Plan: Resolved with GoLYTELY. Having diarrhea likely secondary to GoLYTELY. Restart bowel regimen once diarrhea resolves. (2) Nausea and vomiting Qualifiers: Vomiting type: unspecified Vomiting Intractability: non-intractable Qualified Code(s): R11.2 - Nausea with vomiting, unspecified Is this a current diagnosis for this admission?: Yes Plan: Patient has history of chronic nausea. Vomiting has resolved. This was most likely exacerbated by severe constipation. Continue Zofran as needed. (3) CAD (coronary artery disease) Qualifiers: Coronary Disease-Associated Artery/Lesion type: [place] artery [place] vs. transplanted heart: [place] heart Associated angina: without angina Qualified Code(s): I25.10 - Atherosclerotic heart disease of [place] coronary artery without angina pectoris Is this a current diagnosis for this admission?: No Plan: Denies any chest pain. Restart DA PT, KIKE, statins, beta-blockers. Outpatient cardiology follow-up. (4) Diabetes mellitus type 2 in obese Is this a current diagnosis for this admission?: Yes Plan: Controlled. 09/27/2018. A1c 8.7%. Diabetic diet, long-acting insulin, sliding scale insulin, pre-meal insulin. Adjust dosage as needed. Patient PCP follow-up. (5) Leukocytosis Qualifiers: Leukocytosis type: unspecified Qualified Code(s): D72.829 - Elevated white blood cell count, unspecified Is this a current diagnosis for this admission?: Yes Plan: Chronic. Stable. Patient has had several consultation and workup past by neurologists Dr. Garcia and Ruslan (7) UTI (urinary tract infection) Qualifiers: Urinary tract infection type: acute cystitis Hematuria presence: without hematuria Qualified Code(s): N30.00 - Acute cystitis without hematuria Is this a current diagnosis for this admission?: Yes Plan: Uncomplicated. 10/13/2018. Urinalysis positive for leukocyte esterase. WBC 38. Urine culture growing mixed skin lesions likely contamination. Currently on Macrobid.
[2018-10-17] MEDS: ZINC OXIDE 20% OINTMENT 28.35 GM TP PRN (22:38)
[2018-10-18 04:57] LABS: HEMATOCRIT 47.5 % (36.0-47.0); HEMOGLOBIN 14.8 g/dL (12.0-15.5); MEAN CORPUSCULAR HEMOGLOBIN 20.5 pg (27.0-33.4); MEAN CORPUSCULAR VOLUME 66 fl (80-97); PLATELET COUNT 300 10^3/uL (150-450); RED CELL DISTRIBUTION WIDTH 24.6 % (11.5-14.0)
[2018-10-18 05:06] LABS: RED BLOOD COUNT 7.19 10^6/uL (3.72-5.28)
[2018-10-18 05:13] LABS: ALANINE AMINOTRANSFERASE 15 U/L (9-52); ALBUMIN 3.9 g/dL (3.5-5.0); ALKALINE PHOSPHATASE 257 U/L (38-126); ANION GAP 10 (5-19); ASPARTATE AMINO TRANSFERASE 21 U/L (14-36); BILIRUBIN,DIRECT 0.5 mg/dL (0.0-0.4); BILIRUBIN,TOTAL 0.8 mg/dL (0.2-1.3); BLOOD UREA NITROGEN 21 mg/dL (7-20); CALCIUM 10.2 mg/dL (8.4-10.2); CARBON DIOXIDE 30 mmol/L (22-30); CHLORIDE 100 mmol/L (98-107); GLUCOSE 223 mg/dL (75-110); POTASSIUM 4.5 mmol/L (3.6-5.0); SODIUM 140.1 mmol/L (137-145); TOTAL PROTEIN 7.4 g/dL (6.3-8.2)
[2018-10-18 05:26] LABS: ABSOLUTE LYMPHOCYTES# (MANUAL) 2.6 10^3/uL (0.5-4.7); ABSOLUTE MONOCYTES # (MANUAL) 1.7 10^3/uL (0.1-1.4); ABSOLUTE NEUTROPHILS# (MANUAL) 38.7 10^3/uL (1.7-8.2); BAND NEUTROPHILS % (MANUAL) 2 % (3-5); BASOPHILS % (MANUAL) 0 % (0-2); EOSINOPHILS % (MANUAL) 0 % (0-6); LYMPHOCYTES % (MANUAL) 6 % (13-45); MONOCYTES % (MANUAL) 4 % (3-13); SEGMENTED NEUTROPHILS % (MAN) 88 % (42-78); TOTAL CELLS COUNTED 100
[2018-10-18 05:27] LABS: ANISOCYTOSIS 3+; PLATELET CLUMPS PRESENT; PLATELET COMMENT ADEQUATE; POLYCHROMASIA SLIGHT; TOXIC GRANULATION 1+; TOXIC VACUOLATION PRESENT
[2018-10-18] MEDS: RANOLAZINE 500 MG TAB.SR.12H PO SCH ×2 (06:23→15:24)
[2018-10-18] MEDS: NA PHOS,M-B/NA PHOS,DI-BA (ADULT) 133 ML ENEMA PR SCH ×2 (06:23→17:30)
[2018-10-18] MEDS: INSULIN LISPRO 100 UNIT/ML 3 ML VIAL SUBCUT SCH ×6 (07:22→17:29)
[2018-10-18] MEDS: GABAPENTIN 300 MG CAPSULE PO SCH (09:47)
[2018-10-18] MEDS: SITAGLIPTIN PHOSPHATE 50 MG TABLET PO SCH (09:47)
[2018-10-18] MEDS: ASPIRIN 81 MG TABLET, ENT COATED PO SCH (09:47)
[2018-10-18] MEDS: FUROSEMIDE 40 MG TABLET PO SCH (09:47)
[2018-10-18] MEDS: CLOPIDOGREL BISULFATE 75 MG TABLET PO SCH (09:48)
[2018-10-18] MEDS: ISOSORBIDE DINITRATE 20 MG TABLET PO SCH (09:48)
[2018-10-18] MEDS: METOPROLOL TARTRATE 50 MG TABLET PO SCH (09:49)
[2018-10-18] MEDS: NITROFURANTOIN MONOHYD/M-CRYST 100 MG CAPSULE PO SCH ×2 (09:49→17:29)
[2018-10-18] MEDS: BUSPIRONE HCL 10 MG TABLET PO SCH (09:49)
[2018-10-18] MEDS: LOSARTAN POTASSIUM 50 MG TABLET PO SCH (09:49)
[2018-10-18] MEDS: SERTRALINE HCL 50 MG TABLET PO SCH (09:49)
[2018-10-18] MEDS: NYSTATIN CREAM 15 GM TP SCH (09:50)
[2018-10-18] MEDS: ZINC OXIDE 20% OINTMENT 28.35 GM TP PRN (09:50)
[2018-10-18] MEDS: ONDANSETRON HCL INJ/PF 4 MG/2 ML SDV IV PRN (10:01)
[2018-10-18] MEDS ORDERED: DEXTROSE 40% GEL 15 GM TUBE PO PRN ×2 (13:56)
[2018-10-18] MEDS ORDERED: DEXTROSE 50%-WATER 25 GM/50 ML DISP.SYRIN IV PRN ×2 (13:56)
[2018-10-18] MEDS ORDERED: GLUCAGON,HUMAN RECOMB 1 MG INJ IM PRN (13:56)
--- NOTE | 2018-10-18 14:03 | PDOC PROGRESS REPORT ---
Subjective Progress Note for:: 10/18/18 Subjective:: ORACIO PEDROZA is a 83 year old female with past medical history of chronically elevated white blood cell count, coronary artery disease, diabetes, hypertension, depression and remote GI bleed. Patient presents shortly after an episode of vomiting dark feculent material preceded by abdominal pain. The patient cannot recall her last bowel movement secondary to severe constipation. In the emergency room she has a CBC which remains at baseline from 2 weeks ago and Hemoccult negative stool. She is started on IV Protonix and referred to the hospitalist for admission. 10/17/2018. No acute events overnight. Patient complaining of diarrhea likely induced by GoLYTELY that she received for her chronic constipation. Denies any fever, chills, nausea, vomiting, constipation or any urinary symptoms. 10/18/2018. No acute events overnight. Patient still complaining of having persistent diarrhea. Nonbloody not associated with any abdominal pain. Likely secondary to GoLYTELY. C. difficile was negative. Denies any nausea, vomiting, abdominal pain, constipation, chest pain, shortness of breath or any urinary symptoms. Reason For Visit: GI BLEED Physical Exam Vital Signs: Temp Pulse Resp BP Pulse Ox 97.6 F 86 16 116/57 L 95 10/18/18 12:22 10/18/18 12:22 10/18/18 12:22 10/18/18 12:22 10/18/18 12:22 Intake & Output 10/17/18 10/18/18 10/19/18 06:59 06:59 06:59 Intake Total 910 237 Balance 910 237 Weight 91.4 kg 90 kg General appearance: PRESENT: no acute distress, well-developed, well-nourished Head exam: PRESENT: atraumatic, normocephalic Respiratory exam: PRESENT: clear to auscultation carmen. ABSENT: rales, rhonchi, wheezes Cardiovascular exam: PRESENT: RRR. ABSENT: diastolic murmur, rubs, systolic murmur GI/Abdominal exam: PRESENT: normal bowel sounds, soft. ABSENT: distended, guarding, mass, organolmegaly, rebound, tenderness Extremities exam: PRESENT: full ROM. ABSENT: calf tenderness, clubbing, pedal edema Neurological exam: PRESENT: alert, awake, oriented to person, oriented to place, oriented to time, oriented to situation, CN II-XII grossly intact. ABSENT: motor sensory deficit Results Laboratory Results: 10/18/18 04:38 10/18/18 04:38 10/18/18 10/18/18 10/18/18 04:38 04:38 10:45 WBC 43.0 H* RBC 7.19 H Hgb 14.8 Hct 47.5 H MCV 66 L MCH 20.5 L MCHC 31.0 L RDW 24.6 H Plt Count 300 Seg Neutrophils % Not Reportable Lymphocytes % Not Reportable Monocytes % Not Reportable Eosinophils % Not Reportable Basophils % Not Reportable Absolute Neutrophils Not Reportable Absolute Lymphocytes Not Reportable Absolute Monocytes Not Reportable Absolute Eosinophils Not Reportable Absolute Basophils Not Reportable Sodium 140.1 Potassium 4.5 Chloride 100 Carbon Dioxide 30 Anion Gap 10 BUN 21 H Creatinine 1.06 Est GFR ( Amer) > 60 Est GFR (Non-Af Amer) 50 L Glucose 223 H Calcium 10.2 Magnesium 1.6 Total Bilirubin 0.8 AST 21 ALT 15 Alkaline Phosphatase 257 H Total Protein 7.4 Albumin 3.9 Stool for White Cells NO WBCs SEEN Impressions: Chest X-Ray 10/13/18 19:30 IMPRESSION: No evidence of acute cardiopulmonary disease. Abdomen X-Ray 10/13/18 23:03 IMPRESSION: Nonobstructing bowel gas pattern. copyright 2011 [employer]- All Rights Reserved Assessment & Plan - Diagnosis (1) Constipation Qualifiers: Constipation type: unspecified constipation type Qualified Code(s): K59.00 - Constipation, unspecified Is this a current diagnosis for this admission?: Yes Plan: Resolved with GoLYTELY. Having diarrhea likely secondary to GoLYTELY. Restart bowel regimen once diarrhea resolves. (2) Nausea and vomiting Qualifiers: Vomiting type: unspecified Vomiting Intractability: non-intractable Qualified Code(s): R11.2 - Nausea with vomiting, unspecified Is this a current diagnosis for this admission?: Yes Plan: Patient has history of chronic nausea. Vomiting has resolved. This was most likely exacerbated by severe constipation. Continue Zofran as needed. (3) CAD (coronary artery disease) Qualifiers: Coronary Disease-Associated Artery/Lesion type: [place] artery [place] vs. transplanted heart: [place] heart Associated angina: without angina Qualified Code(s): I25.10 - Atherosclerotic heart disease of [place] coronary artery without angina pectoris Is this a current diagnosis for this admission?: No Plan: Denies any chest pain. Restart DAPT, KIKE, statins, beta-blockers. Outpatient cardiology follow-up. (4) Diabetes mellitus type 2 in obese Is this a current diagnosis for this admission?: Yes Plan: Controlled. 09/27/2018. A1c 8.7%. Diabetic diet, long-acting insulin, sliding scale insulin, pre-meal insulin. Adjust dosage as needed. Patient PCP follow-up. (5) Leukocytosis Qualifiers: Leukocytosis type: unspecified Qualified Code(s): D72.829 - Elevated white blood cell count, unspecified Is this a current diagnosis for this admission?: Yes Plan: Chronic. Stable. Patient has had several consultation and workup past by neurologists Dr. Garcia and Ruslan (6) Obesity (BMI 30-39.9) Is this a current diagnosis for this admission?: No Plan: Diet and life style modifications. (7) UTI (urinary tract infection) Qualifiers: Urinary tract infection type: acute cystitis Hematuria presence: without hematuria Qualified Code(s): N30.00 - Acute cystitis without hematuria Is this a current diagnosis for this admission?: Yes Plan: Uncomplicated. 10/13/2018. Urinalysis positive for leukocyte esterase. WBC 38. Urine culture growing mixed skin lesions likely contamination. Currently on Macrobid. (8) Diarrhea Is this a current diagnosis for this admission?: Yes Plan: Noninfectious. C. difficile and stool white blood cells negative. This is likely induced by GoLYTELY that she received for chronic constipation. Continue supportive measures.
--- NOTE | 2018-10-18 14:45 | PDOC TRANSFER SUMMARY ---
General Admission Date/PCP: 10/13/18 22:01 SOFI GUERRIER MD Resuscitation Status: Full Code - Transfer Diagnosis (1) Constipation Is this a current diagnosis for this admission?: Yes (2) Nausea and vomiting Is this a current diagnosis for this admission?: Yes (3) CAD (coronary artery disease) Is this a current diagnosis for this admission?: No (4) Diabetes mellitus type 2 in obese Is this a current diagnosis for this admission?: Yes (5) Leukocytosis Is this a current diagnosis for this admission?: Yes (6) Obesity (BMI 30-39.9) Is this a current diagnosis for this admission?: No (7) UTI (urinary tract infection) Is this a current diagnosis for this admission?: Yes (8) Diarrhea Is this a current diagnosis for this admission?: Yes - Transfer Medications Home Medications: Aspirin [Aspirin EC] 81 mg PO DAILY 05/18/18 Buspirone HCl [Buspar 15 mg Tablet] 15 mg PO Q12 05/18/18 Clopidogrel Bisulfate [Plavix 75 mg Tablet] 75 mg PO DAILY 05/18/18 Gabapentin [Neurontin 300 mg Capsule] 300 mg PO Q12 05/18/18 Insulin Aspart Protam & Aspart [Novolog Mix 70-30 Vial] 65 unit SQ BID 05/18/18 Metoprolol Tartrate [Lopressor 50 mg Tablet] 50 mg PO Q12 05/18/18 Pantoprazole Sodium [Protonix] 40 mg PO DAILY 05/18/18 Ranolazine [Ranexa 500 mg Tab.sr] 500 mg PO Q8 05/18/18 Sertraline HCl [Zoloft] 25 mg PO DAILY 05/18/18 Sitagliptin Phosphate [Januvia] 100 mg PO DAILY 05/18/18 Transfer Medications: Current Medications Acetaminophen (Tylenol 325 Mg Tablet) 650 mg PO Q4HP PRN PRN Reason: FOR PAIN OR TEMP Stop: 11/12/18 21:14 Last Admin: 10/14/18 20:26 Dose: 650 mg Documented by: Al Hydrox/Mg Hydrox/Simethicone (Maalox Plus Susp 30 Udcup) 30 ml PO Q6HP PRN PRN Reason: HEARTBURN Stop: 11/12/18 21:14 Albuterol/Ipratropium (Duoneb 3 Ml Ampul) 3 ml NEB [id number] PRN PRN Reason: SHORTNESS OF BREATH Stop: 11/12/18 21:14 Aspirin (Ecotrin 81 Mg Ec Tablet) 81 mg PO DAILY [facility] Stop: 11/15/18 09:59 Last Admin: 10/18/18 09:47 Dose: 81 mg Documented by: Buspirone HCl (Buspar 10 Mg Tablet) 15 mg PO Q12 KAREN Stop: 11/14/18 21:59 Last Admin: 10/18/18 09:49 Dose: 15 mg Documented by: Clopidogrel Bisulfate (Plavix 75 Mg Tablet) 75 mg PO DAILY KAREN Stop: 11/15/18 09:59 Last Admin: 10/18/18 09:48 Dose: 75 mg Documented by: Dextrose (Dextrose Inj 50% Syringe (25 Gm/50 Ml)) 12.5 gm IV PRN PRN; Protocol PRN Reason: FOR BG 50-69 IN ALERT PATIENT Stop: 11/12/18 21:14 Dextrose (Dextrose Inj 50% Syringe (25 Gm/50 Ml)) 25 gm IV PRN PRN; Protocol PRN Reason: PER PROTOCOL Stop: 11/12/18 21:14 Dextrose (Dextrose Inj 50% Syringe (25 Gm/50 Ml)) 25 gm IV PRN PRN; Protocol PRN Reason: PER PROTOCOL Stop: 11/14/18 10:00 Dextrose (Dextrose Inj 50% Syringe (25 Gm/50 Ml)) 12.5 gm IV PRN PRN; Protocol PRN Reason: FOR BG 50-69 IN ALERT PATIENT Stop: 11/14/18 10:00 Dextrose (Dextrose Inj 50% Syringe (25 Gm/50 Ml)) 25 gm IV PRN PRN; Protocol PRN Reason: PER PROTOCOL Stop: 11/17/18 13:55 Dextrose (Dextrose Inj 50% Syringe (25 Gm/50 Ml)) 12.5 gm IV PRN PRN; Protocol PRN Reason: FOR BG 50-69 IN ALERT PATIENT Stop: 11/17/18 13:55 Furosemide (Lasix 40 Mg Tablet) 40 mg PO DAILY KAREN Stop: 11/15/18 09:59 Last Admin: 10/18/18 09:47 Dose: 40 mg Documented by: Gabapentin (Neurontin 300 Mg Capsule) 300 mg PO Q12 KAREN Stop: 11/12/18 21:59 Last Admin: 10/18/18 09:47 Dose: 300 mg Documented by: Glucagon (Glucagen Inj 1 Mg Vial) 1 mg IM PRN PRN; Protocol PRN Reason: Evaluate for BG < 70 Stop: 11/12/18 21:14 Glucagon (Glucagen Inj 1 Mg Vial) 1 mg IM PRN PRN; Protocol PRN Reason: Evaluate for BG < 70 Stop: 11/14/18 10:00 Glucagon (Glucagen Inj 1 Mg Vial) 1 mg IM PRN PRN; Protocol PRN Reason: Evaluate for BG < 70 Stop: 11/17/18 13:55 Glucose (Glutose 40% Gel 15 Gm Tube) 15 gm PO PRN PRN; Protocol PRN Reason: FOR BG 50-69 IN ALERT PATIENT Stop: 11/12/18 21:14 Glucose (Glutose 40% Gel 15 Gm Tube) 30 gm PO PRN PRN; Protocol PRN Reason: FOR BG < 50 IN ALERT PATIENT Stop: 11/12/18 21:14 Glucose (Glutose 40% Gel 15 Gm Tube) 15 gm PO PRN PRN; Protocol PRN Reason: FOR BG 50-69 IN ALERT PATIENT Stop: 11/14/18 10:00 Glucose (Glutose 40% Gel 15 Gm Tube) 30 gm PO PRN PRN; Protocol PRN Reason: FOR BG < 50 IN ALERT PATIENT Stop: 11/14/18 10:00 Glucose (Glutose 40% Gel 15 Gm Tube) 15 gm PO PRN PRN; Protocol PRN Reason: FOR BG 50-69 IN ALERT PATIENT Stop: 11/17/18 13:55 Glucose (Glutose 40% Gel 15 Gm Tube) 30 gm PO PRN PRN; Protocol PRN Reason: FOR BG < 50 IN ALERT PATIENT Stop: 11/17/18 13:55 Hydralazine HCl (Apresoline Inj/Pf 20 Mg/1 Ml Sdv) 10 mg IV Q6HP PRN PRN Reason: Sbp>160 Stop: 11/12/18 21:19 Insulin Glargine (Lantus Insulin Inj 300 Unit/3 Ml Pen) 15 unit SUBCUT [facility] Stop: 11/17/18 21:59 Insulin Human Lispro (Humalog Insulin 100 Unit/1 Ml 3 Ml Vial) 5 unit SUBCUT [facility] Stop: 11/15/18 09:14 Last Admin: 10/18/18 12:36 Dose: 5 unit Documented by: Insulin Human Lispro (Humalog Insulin 100 Unit/1 Ml 3 Ml Vial) 0 - 12 unit SUBCUT A[facility]S [facility]; Protocol Stop: 11/15/18 09:14 Last Admin: 10/18/18 12:36 Dose: 6 unit Documented by: Isosorbide Dinitrate (Isordil Titradose 20 Mg Tablet) 30 mg PO DAILY [facility] Stop: 11/15/18 09:59 Last Admin: 10/18/18 09:48 Dose: 30 mg Documented by: Losartan Potassium (Cozaar 50 Mg Tablet) 50 mg PO DAILY [facility] Stop: 11/15/18 09:59 Last Admin: 10/18/18 09:49 Dose: 50 mg Documented by: Magnesium Hydroxide (Milk Of Magnesia 30 Ml Udcup) 30 ml PO HSP PRN PRN Reason: FOR CONSTIPATION Stop: 11/12/18 21:14 Metoprolol Tartrate (Lopressor 50 Mg Tablet) 50 mg PO Q12 [facility] Stop: 11/14/18 21:59 Last Admin: 10/18/18 09:49 Dose: 50 mg Documented by: Multi-Ingredient Ointment (Zinc Oxide 20% Ointment 28.35 Gm) 1 applic TP DAILYP PRN PRN Reason: SKIN IRRITATION Stop: 11/14/18 10:20 Last Admin: 10/18/18 09:50 Dose: 1 applic Documented by: Nitrofurantoin Macrocrystals (Macrobid 100 Mg Capsule) 100 mg PO BID [facility] Stop: 10/22/18 17:59 Last Admin: 10/18/18 09:49 Dose: 100 mg Documented by: Nystatin (Mycostatin Cream 15 Gm) 1 applic TP Q12 [facility] Stop: 10/22/18 11:59 Last Admin: 10/18/18 09:50 Dose: 1 applic Documented by: Ondansetron HCl (Zofran Inj/Pf 4 Mg/2 Ml Sdv) 4 mg IV Q4HP PRN PRN Reason: FOR NAUSEA/VOMITING Stop: 11/15/18 10:33 Last Admin: 10/18/18 10:01 Dose: 4 mg Documented by: Ranolazine (Ranexa 500 Mg Tab.Sr) 500 mg PO Q8 [facility] Stop: 11/14/18 13:59 Last Admin: 10/18/18 06:23 Dose: 500 mg Documented by: Sertraline HCl (Zoloft 50 Mg Tablet) 25 mg PO DAILY [facility] Stop: 11/15/18 09:59 Last Admin: 10/18/18 09:49 Dose: 25 mg Documented by: Sitagliptin Phosphate (Januvia 50 Mg Tablet) 100 mg PO DAILY [facility] Stop: 11/15/18 09:59 Last Admin: 10/18/18 09:47 Dose: 100 mg Documented by: Sodium Biphosphate/Sodium Phosphate (Fleet Enema (Adult) 133 Ml) 133 ml OR Q12A KAREN Stop: 11/13/18 17:59 Last Admin: 10/18/18 06:23 Dose: Not Given Documented by: - Allergies Allergies/Adverse Reactions: morphine Allergy (Mild, Verified 08/04/18 16:32) - Diet/Activity Discharge Diet: As Tolerated Hospital Course Hospital Course: ORACIO PEDROZA is a 83 year old female with past medical history of chronically elevated white blood cell count, coronary artery disease, diabetes, hypertension, depression and remote GI bleed. Patient presents shortly after an episode of vomiting dark feculent material preceded by abdominal pain. The patient cannot recall her last bowel movement secondary to severe constipation. In the emergency room she has a CBC which remains at baseline from 2 weeks ago and Hemoccult negative stool. She is started on IV Protonix and referred to the hospitalist for admission. 10/17/2018. No acute events overnight. Patient complaining of diarrhea likely induced by GoLYTELY that she received for her chronic constipation. Denies any fever, chills, nausea, vomiting, constipation or any urinary symptoms. 10/18/2018. No acute events overnight. Patient still complaining of having persistent diarrhea. Nonbloody not associated with any abdominal pain. Likely secondary to GoLYTELY. C. difficile was negative. Denies any nausea, vomiting, abdominal pain, constipation, chest pain, shortness of breath or any urinary sy mptoms. (1) Constipation Initially patient was a started on bowel regimens with no significant improvement and was started on GoLYTELY significantly and unfortunately you are having diarrhea secondary to GoLYTELY which is resolving. C. difficile negative, stool white blood cells negative. Restart bowel regimen once diarrhea resolves. (2) Nausea and vomiting Patient has history of chronic nausea. Vomiting has resolved. This was most likely exacerbated by severe constipation. Continue Zofran as needed. (3) CAD (coronary artery disease) Denies any chest pain. Restarted on DAPT, KIKE, statins, beta-blockers. Outpa tient cardiology follow-up. (4) Diabetes mellitus type 2 in obese Controlled. 09/27/2018. A1c 8.7%. Started on diabetic diet, long-acting insulin, sliding scale insulin, pre-meal insulin. Adjust dosage as needed. Restart home insulin regimen and oral hypoglycemics. Patient PCP follow-up. (5) Leukocytosis Chronic. Stable. Patient has had several consultation and workup in the past by oncologists Dr. Garcia and Ruslan. (6) Obesity (BMI 30-39.9) Diet and life style modifications. (7) UTI (urinary tract infection) Uncomplicated. 10/13/2018. Urinalysis positive for leukocyte esterase. WBC 38. Urine culture growing mixed skin lesions likely contamination. Currently on Macrobid. (8) Diarrhea Noninfectious. Improving. C. difficile and stool white blood cells negative. This is likely induced by GoLYTELY that she received for chronic constipation. Continue supportive measures. Physical Exam Vital Signs: Temp Pulse Resp BP Pulse Ox 97.6 F 85 16 116/57 L 95 10/18/18 12:22 10/18/18 14:00 10/18/18 12:22 10/18/18 12:22 10/18/18 12:22 Intake & Output 10/17/18 10/18/18 10/19/18 06:59 06:59 06:59 Intake Total 910 237 Balance 910 237 Weight 91.4 kg 90 kg General appearance: PRESENT: no acute distress, well-developed, well-nourished Head exam: PRESENT: atraumatic, normocephalic Neck exam: ABSENT: carotid bruit, JVD, lymphadenopathy, thyromegaly Respiratory exam: PRESENT: clear to auscultation carmen. ABSENT: rales, rhonchi, wheezes Cardiovascular exam: PRESENT: RRR. ABSENT: diastolic murmur, rubs, systolic murmur Pulses: PRESENT: normal dorsalis pedis pul GI/Abdominal exam: PRESENT: normal bowel sounds, soft. ABSENT: distended, guarding, mass, organolmegaly, rebound, tenderness Extremities exam: PRESENT: full ROM. ABSENT: calf tenderness, clubbing, pedal edema Neurological exam: PRESENT: alert, awake, oriented to person, oriented to place, oriented to time, oriented to situation, CN II-XII grossly intact. ABSENT: motor sensory deficit Skin exam: PRESENT: dry, intact, warm. ABSENT: cyanosis, rash Results Laboratory Results: 10/18/18 04:38 10/18/18 04:38 10/18/18 10/18/18 10/18/18 04:38 04:38 10:45 WBC 43.0 H* RBC 7.19 H Hgb 14.8 Hct 47.5 H MCV 66 L MCH 20.5 L MCHC 31.0 L RDW 24.6 H Plt Count 300 Seg Neutrophils % Not Reportable Lymphocytes % Not Reportable Monocytes % Not Reportable Eosinophils % Not Reportable Basophils % Not Reportable Absolute Neutrophils Not Reportable Absolute Lymphocytes Not Reportable Absolute Monocytes Not Reportable Absolute Eosinophils Not Reportable Absolute Basophils Not Reportable Sodium 140.1 Potassium 4.5 Chloride 100 Carbon Dioxide 30 Anion Gap 10 BUN 21 H Creatinine 1.06 Est GFR ( Amer) > 60 Est GFR (Non-Af Amer) 50 L Glucose 223 H Calcium 10.2 Magnesium 1.6 Total Bilirubin 0.8 AST 21 ALT 15 Alkaline Phosphatase 257 H Total Protein 7.4 Albumin 3.9 Stool for White Cells NO WBCs SEEN Impressions: Chest X-Ray 10/13/18 19:30 IMPRESSION: No evidence of acute cardiopulmonary disease. Abdomen X-Ray 10/13/18 23:03 IMPRESSION: Nonobstructing bowel gas pattern. copyright 2011 [employer]- All Rights Reserved
[2018-10-18 16:09] VITALS: BP 144/62
[2018-10-18] MEDS ORDERED: INSULIN GLARGINE,HUM.REC.ANLOG 300 UNIT/3 ML INSULN.PEN SUBCUT SCH (22:00)
== END 2018-10-18 21:15 | DRG 392 ==
LOC: ER 17:29 → EH 22:01 → 3W 10-14 01:52
PROVIDERS: ADMIT Internal Medicine; ATTEND Internal Medicine
DX: K59.09 Other constipation (principal); N30.00 Acute cystitis without hematuria; R11.2 Nausea with vomiting, unspecified; I25.10 Atherosclerotic heart disease of native coronary artery without angina pectoris; E11.9 Type 2 diabetes mellitus without complications; R19.7 Diarrhea, unspecified; E66.9 Obesity, unspecified; E78.5 Hyperlipidemia, unspecified; I11.0 Hypertensive heart disease with heart failure; I50.9 Heart failure, unspecified; D64.9 Anemia, unspecified; M19.90 Unspecified osteoarthritis, unspecified site; Z68.33 Body mass index [BMI] 33.0-33.9, adult; F32.9 Major depressive disorder, single episode, unspecified; Z79.82 Long term (current) use of aspirin; Z79.02 Long term (current) use of antithrombotics/antiplatelets; Z79.899 Other long term (current) drug therapy; Z86.711 Personal history of pulmonary embolism; I25.2 Old myocardial infarction; Z85.828 Personal history of other malignant neoplasm of skin; Z86.14 Personal history of Methicillin resistant Staphylococcus aureus infection; Z90.49 Acquired absence of other specified parts of digestive tract; Z90.710 Acquired absence of both cervix and uterus; Z87.891 Personal history of nicotine dependence; Z88.8 Allergy status to other drugs, medicaments and biological substances
CPT/HCPCS: 36415; 71045; 74019; 80048; 80053; 81001; 82607; 82728; 82746; 82962; 83540; 83550; 83605; 83690; 83735; 85025; 85027; 85045; 85610; 86850; 86900; 86901; 87045; 87086; 87205; 87324; 87493; 89055; 96374; 96375; 99285; J1815; J2405; J3490; J8499; S0164

== ENCOUNTER 2018-11-11 00:29 | Emergency (ER) | payer MEDICARE, OTHER ==
[2018-11-11 01:33] LABS: MEAN CORPUSCULAR HEMOGLOBIN 19.9 pg (27.0-33.4); MEAN CORPUSCULAR HGB CONC 30.5 g/dL (32.0-36.0); MEAN CORPUSCULAR VOLUME 65 fl (80-97); PLATELET COUNT 279 10^3/uL (150-450)
[2018-11-11 01:53] LABS: RED BLOOD COUNT 7.04 10^6/uL (3.72-5.28)
[2018-11-11 01:56] LABS: ABSOLUTE LYMPHOCYTES# (MANUAL) 1.5 10^3/uL (0.5-4.7); ABSOLUTE NEUTROPHILS# (MANUAL) 45.7 10^3/uL (1.7-8.2); ALANINE AMINOTRANSFERASE 18 U/L (9-52); ALBUMIN 3.8 g/dL (3.5-5.0); ALKALINE PHOSPHATASE 210 U/L (38-126); ANION GAP 6 (5-19); ASPARTATE AMINO TRANSFERASE 59 U/L (14-36); BASOPHILS % (MANUAL) 0 % (0-2); BILIRUBIN,DIRECT 0.4 mg/dL (0.0-0.4); BILIRUBIN,TOTAL 0.9 mg/dL (0.2-1.3); BLOOD UREA NITROGEN 20 mg/dL (7-20); CALCIUM 9.5 mg/dL (8.4-10.2); CARBON DIOXIDE 27 mmol/L (22-30); CHLORIDE 106 mmol/L (98-107); EOSINOPHILS % (MANUAL) 1 % (0-6); GLUCOSE 254 mg/dL (75-110); LYMPHOCYTES % (MANUAL) 3 % (13-45); MONOCYTES % (MANUAL) 2 % (3-13); SEGMENTED NEUTROPHILS % (MAN) 94 % (42-78); SODIUM 139.4 mmol/L (137-145); TOTAL CELLS COUNTED 100; TOTAL PROTEIN 7.7 g/dL (6.3-8.2)
[2018-11-11 01:58] LABS: ANISOCYTOSIS 3+; POLYCHROMASIA 2+
[2018-11-11 01:59] LABS: HYPOCHROMASIA 1+
[2018-11-11 02:00] LABS: PLATELET COMMENT ADEQUATE
[2018-11-11 02:06] LABS: WHITE BLOOD COUNT 48.6 10^3/uL (4.0-10.5)
--- NOTE | 2018-11-11 04:03 | RADIOLOGY REPORT (SQ) ---
CLINICAL HISTORY: RLQ TTP COMPARISON: None. TECHNIQUE: CT ABDOMEN PELVIS WITH IV CONTRAST on 11/11/2018 2:32 AM CDT This exam was performed according to our departmental dose-optimization program, which includes automated exposure control, adjustment of the mA and/or kV according to patient size and/or use of iterative reconstruction technique. FINDINGS: There is mild bibasilar atelectasis. Abdomen: The liver is normal in appearance. There is no biliary dilatation. Cholecystectomy was performed. There is a small hiatal hernia. Spleen is enlarged measuring 17.9 cm. Pancreas is normal in appearance. Adrenal glands are normal. There is a small simple cyst in the upper pole the right kidney. The kidneys are mildly atrophic. Abdominal aorta is normal in course and caliber without aneurysm. There is no free air. There is no retroperitoneal adenopathy.Abdominal aorta is densely calcified without aneurysm. Pelvis: There is no bowel obstruction. Urinary bladder is unremarkable. There is no free fluid. Hysterectomy was performed. Appendix is not clearly seen. Skeleton: There are no acute osseous findings. No suspicious bony lesions. IMPRESSION: Splenomegaly. No definite acute inflammatory process or mass otherwise.
[2018-11-11 04:54] LABS: APPEARANCE,URINE SLIGHTLY-CLOUDY; BILIRUBIN,URINE NEGATIVE (NEGATIVE); COLOR,URINE YELLOW; GLUCOSE, URINE NEGATIVE (NEGATIVE); KETONES,URINE NEGATIVE (NEGATIVE); LEUKOCYTE ESTERASE,URINE LARGE (NEGATIVE); NITRITE,URINE NEGATIVE (NEGATIVE); PROTEIN,URINE NEGATIVE (NEGATIVE); URINE SPECIFIC GRAVITY 1.026; UROBILINOGEN,URINE NEGATIVE mg/dL (<2.0)
[2018-11-11] MEDS ORDERED: CEPHALEXIN 500 MG CAPSULE PO ONE (04:59)
--- NOTE | 2018-11-11 05:01 | ER Document Report ---
Entered by GLEN ALVAREZ SCRIBE 11/11/18 0257 Acting as scribe for:DWAYNE SHAIKH DO ED General - General Chief Complaint: Pain All Over Stated Complaint: PAIN ALL OVER Time Seen by Provider: 11/11/18 02:05 Primary Care Provider: SOFI GUERRIER MD [Primary Care Provider] - Follow up as needed Mode of Arrival: Ambulatory Information source: Patient Notes: 83 year old female with chronic leukocytosis that presents to the emergency department today with complaints of "pain all over" which she further describes as bilateral hands/feet/wrists for the last x24 hours. Patient describes her foot and wrist pain as "tingling". Patient states she has tried advil at home with minimal relief. Patient states that she has also noticed black stool recently. Patient denies any vomiting, diarrhea, or usage of new medication. TRAVEL OUTSIDE OF THE [place] IN LAST 30 DAYS: No - Related Data Allergies/Adverse Reactions: morphine Allergy (Mild, Verified 08/04/18 16:32) Past Medical History - General Information source: Patient - Social History Smoking Status: Never Smoker Cigarette use (# per day): No Frequency of alcohol use: None Drug Abuse: None Lives with: Family Family History: CAD, COPD, DM, Hyperlipidemia, Hypertension, Malignancy - Father with lung cancer. Cousin with leukemia. 3 brothers with unknown cancers. Mother also of unknown type of cancer., Other - Past Medical History Cardiac Medical History: Reports: Hx Congestive Heart Failure, Hx Coronary Artery Disease, Hx Heart Attack - x2, Hx Hypercholesterolemia, Hx Hypertension, Hx Pulmonary Embolism - Distant history Endocrine Medical History: Reports: Hx Diabetes Mellitus Type 2 Malignancy Medical History: Reports: Hx Skin Cancer - Excised from her nose. GI Medical History: Reports: Hx Gastroesophageal Reflux Disease Musculoskeletal Medical History: Reports Hx Arthritis, Reports Hx Musculoskeletal Deformity Psychiatric Medical History: Reports: Hx Anxiety, Hx Depression Infectious Medical History: Reports: Hx MRSA - remote history Past Surgical History: Reports: Hx Abdominal Surgery, Hx Appendectomy, Hx Cholecystectomy, Hx Hysterectomy, Hx Tonsillectomy, Hx Vascular Surgery, Other - Cardiac loop recorder, bilateral cataract surgery, hemorrhoidectomy - Immunizations Hx Diphtheria, Pertussis, Tetanus Vaccination: No Hx Pneumococcal Vaccination: 04/29/13 Review of Systems - Review of Systems Constitutional: No symptoms reported EENT: No symptoms reported Cardiovascular: No symptoms reported Respiratory: No symptoms reported Gastrointestinal: See HPI, Black stools. denies: Diarrhea, Vomiting Genitourinary: No symptoms reported Female Genitourinary: No symptoms reported Musculoskeletal: See HPI, Joint pain - bilateral feet, bilateral wrists, bilateral hands Skin: No symptoms reported Hematologic/Lymphatic: No symptoms reported Neurological/Psychological: No symptoms reported -: Yes All other systems reviewed and negative Physical Exam - Vital signs Vitals: Temp Pulse Resp BP Pulse Ox 98.6 F 104 H 18 138/63 H 100 11/11/18 00:41 11/11/18 00:41 11/11/18 00:41 11/11/18 00:41 11/11/18 00:41 - Notes Notes: PHYSICAL EXAM GENERAL: Alert, interacts well. No acute distress. HEAD: Normocephalic, atraumatic. EYES: Pupils equal, round, and reactive to light. Extraocular movements intact. ENT: Oral mucosa moist, tongue midline. NECK: Full range of motion. Supple. Trachea midline. LUNGS: Clear to auscultation bilaterally, no wheezes, rales, or rhonchi. No respiratory distress. HEART: Regular rate and rhythm. No murmurs, gallops, or rubs. ABDOMEN: Soft, mild right lower quadrant tenderness with palpation. Non- distended. Bowel sounds present in all 4 quadrants. No guarding, rigidity, or rebound. EXTREMITIES: Moves all 4 extremities spontaneously. No edema, radial and dorsalis pedis pulses 2/4 bilaterally. No cyanosis. NEUROLOGICAL: Alert and oriented x3. Normal speech. PSYCH: Normal affect, normal mood. SKIN: Warm, dry, normal turgor. No rashes or lesions noted. Course - Re-evaluation Re-evalutation: 11/11/18 04:06 CBC shows chronic leukocytosis of 48.6, this is consistent with her baseline for the past year. No anemia, platelets normal, chemistries show hyperglycemia otherwise grossly unremarkable, CK is normal at 23. Given the abdominal pain on examination CT scan of the abdomen pelvis was performed and it is negative for any acute intra-abdominal process. Aorta is normal caliber. Urinalysis is pending. At present I have no explanation for her diffuse body pain. 11/11/18 04:58 Urinalysis shows small blood, 11 RBCs and large leukocyte esterase, greater than 108 2. Only 3 squamous epithelial cells. Doubt contamination. This may be contributing to her fatigue and malaise. Patient will be treated with Keflex. Urine is sent for culture. Discharged home. - Vital Signs Vital signs: Temp Pulse Resp BP Pulse Ox 98.6 F 104 H 18 138/63 H 100 11/11/18 00:41 11/11/18 00:41 11/11/18 00:41 11/11/18 00:41 11/11/18 00:41 - Laboratory Result Diagrams: 11/11/18 01:17 11/11/18 01:17 Laboratory results interpreted by me: 11/11/18 11/11/18 11/11/18 01:17 01:17 01:17 WBC 48.6 H* RBC 7.04 H MCV 65 L MCH 19.9 L MCHC 30.5 L RDW 23.0 H Seg Neuts % (Manual) 94 H Lymphocytes % (Manual) 3 L Monocytes % (Manual) 2 L Abs Neuts (Manual) 45.7 H Glucose 254 H AST 59 H Alkaline Phosphatase 210 H Creatine Kinase 23 L Urine Blood Ur Leukocyte Esterase 11/11/18 04:33 WBC RBC MCV MCH MCHC RDW Seg Neuts % (Manual) Lymphocytes % (Manual) Monocytes % (Manual) Abs Neuts (Manual) Glucose AST Alkaline Phosphatase Creatine Kinase Urine Blood SMALL H Ur Leukocyte Esterase LARGE H Discharge - Discharge Clinical Impression: Myalgia, Marked leukocytosis Urinary tract infection Qualifiers: Urinary tract infection type: acute cystitis Hematuria presence: with hematuria Qualified Code(s): N30.01 - Acute cystitis with hematuria Condition: Stable Disposition: HOME, SELF-CARE Instructions: Urinary Tract Infection ([facility]) Prescriptions: Cephalexin Monohydrate [Keflex 500 mg Capsule] 500 mg PO Q6H 5 Days capsule Referrals: SOFI GUERRIER MD [Primary Care Provider] - Follow up as needed I personally performed the services described in the documentation, reviewed and edited the documentation which was dictated to the scribe in my presence, and it accurately records my words and actions.
[2018-11-11 05:32] VITALS: BP 132/65
== END 2018-11-11 06:33 | disposition home or self-care (01) ==
LOC: ER 00:29
DX: N30.01 Acute cystitis with hematuria (principal); D72.829 Elevated white blood cell count, unspecified; M79.10 Myalgia, unspecified site; R10.813 Right lower quadrant abdominal tenderness; M25.531 Pain in right wrist; M25.532 Pain in left wrist; M25.571 Pain in right ankle and joints of right foot; M25.572 Pain in left ankle and joints of left foot; M25.542 Pain in joints of left hand; M25.541 Pain in joints of right hand; R19.5 Other fecal abnormalities; E11.65 Type 2 diabetes mellitus with hyperglycemia; Z88.5 Allergy status to narcotic agent; I25.10 Atherosclerotic heart disease of native coronary artery without angina pectoris; I10 Essential (primary) hypertension; Z85.828 Personal history of other malignant neoplasm of skin
CPT/HCPCS: 99284; 36415; 87086; 82550; 85025; 87088; 80053; 81001; 87186; 74177; A9270

== ENCOUNTER 2018-11-27 20:49 | Emergency (ER) | payer MEDICARE, OTHER ==
[2018-11-27 21:44] LABS: ALANINE AMINOTRANSFERASE 14 U/L (9-52); ALBUMIN 4.2 g/dL (3.5-5.0); ALKALINE PHOSPHATASE 331 U/L (38-126); ANION GAP 13 (5-19); ASPARTATE AMINO TRANSFERASE 37 U/L (14-36); BILIRUBIN,DIRECT 0.7 mg/dL (0.0-0.4); BILIRUBIN,TOTAL 1.5 mg/dL (0.2-1.3); BLOOD UREA NITROGEN 25 mg/dL (7-20); CARBON DIOXIDE 27 mmol/L (22-30); CHLORIDE 99 mmol/L (98-107); POTASSIUM 4.5 mmol/L (3.6-5.0); SODIUM 139.1 mmol/L (137-145); TOTAL PROTEIN 8.8 g/dL (6.3-8.2)
[2018-11-27 21:50] LABS: CREATINE KINASE < 20 U/L (30-135)
[2018-11-27 21:52] LABS: GLUCOSE 480 mg/dL (75-110); HEMATOCRIT 54.2 % (36.0-47.0); HEMOGLOBIN 16.7 g/dL (12.0-15.5); MEAN CORPUSCULAR HEMOGLOBIN 20.9 pg (27.0-33.4); MEAN CORPUSCULAR HGB CONC 30.9 g/dL (32.0-36.0); MEAN CORPUSCULAR VOLUME 68 fl (80-97); PLATELET COUNT 251 10^3/uL (150-450); RED CELL DISTRIBUTION WIDTH 22.8 % (11.5-14.0)
[2018-11-27 21:55] LABS: CREATINE KINASE MB 0.48 ng/mL (<4.55); TROPONIN I 0.022 ng/mL
[2018-11-27] MEDS ORDERED: NORMAL SALINE 1000 ML 1,000 ML IV ONE (21:59)
[2018-11-27] MEDS ORDERED: INSULIN REG, HUMAN 100 UNIT/ML 3 ML VIAL (PYX) IV ONE (22:00)
--- NOTE | 2018-11-27 22:01 | ER Document Report ---
ED General - General Stated Complaint: WEAKNESS Time Seen by Provider: 11/27/18 21:59 Primary Care Provider: SOFI GUERRIER MD [Primary Care Provider] - Follow up as needed Mode of Arrival: Ambulatory Information source: Patient Notes: HISTORY OF PRESENT ILLNESS: Patient is a 83-year-old female with a significant past medical history of coronary artery disease and CHF who presents with chest pain and weakness for the past several days. Location: Middle of the chest Onset: 2-3 days ago Alleviation: None Provocation: None Quality: Tightness Radiation: None Severity: Moderate Timing: Intermittent History of CAD: Yes Associated symptoms: No shortness of breath, no fevers or chills REVIEW OF SYSTEMS: CONSTITUTIONAL : Denies fever or chills, no sweats. Denies recent illness. EENT: Denies eye, ear, throat, or mouth pain or symptoms. Denies nasal or sinus congestion. CARDIOVASCULAR: Positive for chest pain. Denies swelling of the legs. RESPIRATORY: Denies cough, cold, or chest congestion. Denies shortness of breath or difficulty breathing. Denies wheezing. GASTROINTESTINAL: Positive for abdominal pain. Denies nausea, vomiting, or diarrhea. Denies constipation. GENITOURINARY: Denies difficulty urinating, painful urination, burning, frequency, or blood in urine. MUSCULOSKELETAL: Denies neck or back pain or joint pain or swelling. SKIN: Denies rash or skin lesions. HEMATOLOGIC : Denies easy bruising or bleeding. LYMPHATIC: Denies swollen, enlarged glands. NEUROLOGICAL: Denies altered mental status or loss of consciousness. Denies headache. Denies weakness or paralysis or loss of use of either side. Denies problems with gait or speech. Denies sensory or motor loss. PSYCHIATRIC: Denies anxiety or stress or depression. All other systems reviewed and negative. PHYSICAL EXAMINATION: GENERAL: Well-appearing, well-nourished and in no acute distress. HEAD: Atraumatic, normocephalic. No scalp deformity, depression, or crepitance. EYES: Pupils are 3 mm and equal/round/reactive to light, extraocular movements intact, sclera anicteric, conjunctiva are normal. ENT: Nares patent bilaterally, oropharynx. Moist mucous membranes. No tonsil hypertrophy. NECK: Normal range of motion, supple without lymphadenopathy. LUNGS: Breath sounds present, equal, and clear to auscultation bilaterally. No wheezes, rales, or rhonchi. HEART: Regular rate and rhythm without murmurs, rubs, or gallops. 2+ peripheral pulses. Normal capillary refill. ABDOMEN: Soft, nontender, nondistended. Normoactive bowel sounds. No guarding, no rebound. No masses appreciated. BACK: Normal contour, no midline tenderness. Rectal exam deferred. GENITAL/PELVIC: Deferred. EXTREMITIES: Normal range of motion, no pitting or edema. No cyanosis. NEUROLOGICAL: No focal neurological deficits. Moves all extremities spontaneously and on command. PSYCH: Normal mood, normal affect. No suicidal thoughts/ideations. No homocidal thoughts/ideations. No hallucinations. SKIN: Warm, dry, normal turgor, no rashes or lesions noted. ASSESSMENT AND PLAN: This patient is a 83-year-old female who presents with chest and abdominal pain with weakness. Most concerning for cardiac etiology. 1. Will obtain labs, urine, cardiac enzymes, CT head, and admit to the hospital. 2. Will observe. TRAVEL OUTSIDE OF THE [place] IN LAST 30 DAYS: No - Related Data Allergies/Adverse Reactions: morphine Allergy (Mild, Verified 08/04/18 16:32) Past Medical History - General Information source: Patient - Social History Smoking Status: Never Smoker Chew tobacco use (# tins/day): No Frequency of alcohol use: None Drug Abuse: None Lives with: Family Family History: CAD, COPD, DM, Hyperlipidemia, Hypertension, Malignancy - Father with lung cancer. Cousin with leukemia. 3 brothers with unknown cancers. Mother also of unknown type of cancer., Other Patient has suicidal ideation: No Patient has homicidal ideation: No - Past Medical History Cardiac Medical History: Reports: Hx Atrial Fibrillation, Hx Congestive Heart Failure, Hx Coronary Artery Disease, Hx Heart Attack - x2, Hx Hypercholester olemia, Hx Hypertension, Hx Pulmonary Embolism - Distant history Pulmonary Medical History: Denies: Hx Asthma, Hx COPD EENT Medical History: Reports: None Neurological Medical History: Reports: None. Denies: Hx Seizures Endocrine Medical History: Reports: Hx Diabetes Mellitus Type 2. Denies: Hx Diabetes Mellitus Type 1, Hx Hyperthyroidism, Hx Hypothyroidism Renal/ Medical History: Reports: None. Denies: Hx Peritoneal Dialysis Malignancy Medical History: Reports: None, Hx Skin Cancer - Excised from her nose. GI Medical History: Reports: Hx Gastroesophageal Reflux Disease. Denies: Hx Cirrhosis, Hx Hepatitis Musculoskeletal Medical History: Reports Hx Arthritis, Denies Hx Gout, Reports Hx Musculoskeletal Deformity Skin Medical History: Reports None, Denies Hx Eczema, Denies Hx Psoriasis Psychiatric Medical History: Reports: Hx Anxiety, Hx Depression Traumatic Medical History: Reports: None Infectious Medical History: Reports: Hx MRSA - remote history. Denies: Hx Hepatitis Past Surgical History: Reports: Hx Abdominal Surgery, Hx Appendectomy, Hx Cholecystectomy, Hx Hysterectomy, Hx Tonsillectomy, Hx Vascular Surgery, Other - Cardiac loop recorder, bilateral cataract surgery, hemorrhoidectomy - Immunizations Hx Diphtheria, Pertussis, Tetanus Vaccination: No Hx Pneumococcal Vaccination: 04/29/13 Course - Re-evaluation Re-evalutation: 11/28/18 01:10 CT head is negative. Labs indicate elevated glucose without evidence of acute diabetic ketoacidosis. Cardiac enzymes are negative and EKG is remarkable only for tachycardia without acute ischemic changes. Patient is admitted to the hospital. - Laboratory Result Diagrams: 11/27/18 21:08 11/27/18 21:08 Laboratory results interpreted by me: 11/27/18 11/27/18 11/27/18 21:08 21:08 21:56 WBC 49.2 H* RBC 8.01 H Hgb 16.7 H Hct 54.2 H MCV 68 L MCH 20.9 L MCHC 30.9 L RDW 22.8 H Seg Neuts % (Manual) 86 H Lymphocytes % (Manual) 4 L Abs Neuts (Manual) 43.8 H Abs Monocytes (Manual) 1.5 H Absolute Eos (Manual) 2.0 H BUN 25 H Est GFR ( Amer) 59 L Est GFR (Non-Af Amer) 49 L Glucose 480 H* Calcium 11.0 H Total Bilirubin 1.5 H Direct Bilirubin 0.7 H AST 37 H Alkaline Phosphatase 331 H Creatine Kinase < 20 L Total Protein 8.8 H Urine Protein 30 H Urine Glucose (UA) >=500 H Urine Blood MODERATE H Ur Leukocyte Esterase TRACE H - Diagnostic Test Radiology reviewed: Image reviewed, Reports reviewed - EKG Interpretation by Me EKG shows normal: Sinus rhythm Rate: Tachycardia Rhythm: NSR [place]/QRS: No: Right axis deviation, Left axis deviation, RBBB, LBBB, IVCD, LAHB/LAFB, LPHB/LPFB, Bifasicular block Voltage: No: Increased voltage, Consistant with LVH, Decreased voltage, Throughout, Limb leads P Waves: No: NIGEL, LAE, Absent, AV Dissociation, Other Heart block present: No: 1st Degree, Mobitz 1, Mobitz 2, CHB (3rd degree block) When compared to previous EKG there are: No significant change - Consults Dr. Schaefer Time consulted: 01:10 - will admit Consulted provider: will come to ER Discharge - Discharge Clinical Impression: Hyperglycemia, Hypercalcemia, Weakness Chest pain Qualifiers: Chest pain type: unspecified Qualified Code(s): R07.9 - Chest pain, unspecified Abdominal pain Qualifiers: Abdominal location: generalized Qualified Code(s): R10.84 - Generalized abdominal pain Condition: Stable Disposition: ADMITTED INPATIENT Admitting Provider: Hospitalist Unit Admitted: Telemetry Referrals: SOFI GUERRIER MD [Primary Care Provider] - Follow up as needed
[2018-11-27 22:07] LABS: RED BLOOD COUNT 8.01 10^6/uL (3.72-5.28)
[2018-11-27 22:10] LABS: ABSOLUTE MONOCYTES # (MANUAL) 1.5 10^3/uL (0.1-1.4); ABSOLUTE NEUTROPHILS# (MANUAL) 43.8 10^3/uL (1.7-8.2); BAND NEUTROPHILS % (MANUAL) 3 % (3-5); BASOPHILS % (MANUAL) 0 % (0-2); EOSINOPHILS % (MANUAL) 4 % (0-6); LYMPHOCYTES % (MANUAL) 4 % (13-45); MONOCYTES % (MANUAL) 3 % (3-13); SEGMENTED NEUTROPHILS % (MAN) 86 % (42-78); TOTAL CELLS COUNTED 100
[2018-11-27 22:14] LABS: HYPOCHROMASIA 1+; TOXIC GRANULATION SLIGHT
[2018-11-27 22:16] LABS: ANISOCYTOSIS 3+; PLATELET COMMENT ADEQUATE; POIKILOCYTOSIS 1+
[2018-11-27 22:16] LABS: APPEARANCE,URINE SLIGHTLY-CLOUDY; BILIRUBIN,URINE NEGATIVE (NEGATIVE); COLOR,URINE YELLOW; GLUCOSE, URINE >=500 mg/dL (NEGATIVE); KETONES,URINE NEGATIVE (NEGATIVE); LEUKOCYTE ESTERASE,URINE TRACE (NEGATIVE); NITRITE,URINE NEGATIVE (NEGATIVE); PROTEIN,URINE 30 mg/dL (NEGATIVE); URINE SPECIFIC GRAVITY 1.018; UROBILINOGEN,URINE NEGATIVE mg/dL (<2.0)
[2018-11-27 22:25] LABS: WHITE BLOOD COUNT 49.2 10^3/uL (4.0-10.5)
--- NOTE | 2018-11-27 23:00 | RADIOLOGY REPORT (SQ) ---
EXAM DESCRIPTION: CT HEAD WITHOUT IV CONTRAST COMPLETED DATE/TME: 11/27/2018 22:00 CLINICAL HISTORY: 83 years, Female, Weakness COMPARISON: 08/09/2018 CT brain TECHNIQUE: 197 Images stored on PACS. All CT scanners at this facility use dose modulation, iterative reconstruction, and/or weight based dosing when appropriate to reduce radiation dose to as low as reasonably achievable (ALARA). [facility]: Dose Right [facility]: CareDose [facility]: Dose Right [facility]: Teradose 4D [facility]: [employer] LIMITATIONS: None. FINDINGS: The globes are intact. The paranasal sinuses and mastoid air cells are unremarkable. No displaced or depressed skull fracture. No intra or extra-axial hemorrhage. CT is limited for evaluation of acute infarct. No CT evidence for large or territorial acute infarct. No mass or midline shift. Diffuse atrophy. 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 Moderate small vessel ischemic change, as before IMPRESSION: Atrophy with small vessel ischemic change. Old right posterior parietal infarct. TECHNICAL DOCUMENTATION: Quality ID # 436: Final reports with documentation of one or more dose reduction techniques (e.g., Automated exposure control, adjustment of the mA and/or kV according to patient size, use of iterative reconstruction technique) copyright 2010 [employer]- All Rights Reserved
--- NOTE | 2018-11-28 00:22 | RADIOLOGY REPORT (SQ) ---
EXAM DESCRIPTION: XR CHEST 1 VIEW COMPLETED DATE/TME: 11/27/2018 23:52 CLINICAL HISTORY: 83 years, Female, Chest pain COMPARISON: 10/13/2018 chest NUMBER OF VIEWS: 1 TECHNIQUE: Portable chest LIMITATIONS: None. FINDINGS: Cardiomegaly with low lung lines. Atheromatous change thoracic aorta. No pneumothorax. Electronic device projects over the heart. Lungs are clear IMPRESSION: Cardiomegaly. Low lung volumes copyright 2010 [employer]- All Rights Reserved
--- NOTE | 2018-11-28 02:48 | RADIOLOGY REPORT (SQ) ---
EXAM: CT abdomen pelvis with IV contrast CLINICAL DATA: 83-year-old female with abdominal pain in the left lower quadrant. She has undergone a previous appendectomy, hysterectomy and cholecystectomy. TECHNICAL DATA: Axial CT imaging of the abdomen and pelvis was performed following the administration of intravenous contrast.. Sagittal and coronal reconstructed images were then performed. The CT study is performed according to ALARA (as low as reasonably achievable) or ALARA/IMAGE GENTLY, with automatic adjustment of mA and/or kV according to patient size. Performed on: 11/28/2018 at 1:33 AM. Comparison: Prior CT abdomen and pelvis performed on 11/11/2018. FINDINGS: Lung bases: The lung bases are clear. There is minimal bibasilar atelectasis and/or fibrosis. Liver: The liver is mildly enlarged and measures approximately 18 cm in craniocaudal dimension. No focal hepatic abnormalities are identified. Liver attenuation is within normal limits. Spleen: The spleen is enlarged and measures 17 cm in craniocaudal dimension. No focal splenic abnormalities are identified. Gallbladder and bile duct: The gallbladder is surgically absent. There is no biliary ductal dilatation. Pancreas: The pancreas is grossly normal in size and configuration. Adrenal Glands:The adrenal glands are normal in size and configuration. Kidneys:The kidneys are normal in size and configuration. There is no evidence of hydronephrosis. There is no evidence of nephrolithiasis. There is a stable 3.9 x 2.5 cm simple appearing cyst arising from the upper pole of the right kidney. There is stranding of the perinephric fat bilaterally which is nonspecific and can be seen with chronic medical renal disease. Stomach:The stomach is grossly normal. There is a small hiatal hernia. Bowel:The bowel gas pattern is non specific and non obstructive. There is a small fat-containing ventral umbilical hernia. Appendix: The appendix is surgically absent. Free air:There is no evidence of free air. Free fluid: There is no evidence of free fluid. Vasculature: The aorta is normal in caliber and contour. There are atherosclerotic calcifications along the abdominal aorta and major branch vessels. The inferior vena cava is grossly unremarkable. Lymphadenopathy: No pathologic lymphadenopathy is identified. Bladder: The bladder is well distended and smooth in contour. There is nonspecific slightly increased attenuation along the left posterior bladder wall. Reproductive: The uterus is surgically absent. Bones: No acute osseous abnormalities are identified. There is trace anterolisthesis of L3 relative to L4 and L4 relative to L5. There are degenerative changes of the facet joints at L3-L4, L4-L5 and L5-S1. Prominent degenerative spurring in the visualized lower thoracic spine. Soft tissues: No focal soft tissue abnormalities are identified. IMPRESSION: 1. No evidence of acute intra-abdominal or intrapelvic pathology. 2. Splenomegaly and borderline hepatomegaly. 3. Remote cholecystectomy, appendectomy and hysterectomy. 4. Stable simple appearing cyst arising from the upper pole of the right kidney. 5. Degenerative changes of the skeletal and vascular structures. 6. Nonspecific stranding of the perinephric fat bilaterally which can be seen with chronic medical renal disease. 7. Nonspecific slightly increased attenuation along the left posterior bladder wall.
[2018-11-28] MEDS ORDERED: NORMAL SALINE 1000 ML 1,000 ML IV ONE (04:06)
[2018-11-28 05:15] LABS: ANION GAP 12 (5-19); BLOOD UREA NITROGEN 22 mg/dL (7-20); CALCIUM 10.2 mg/dL (8.4-10.2); CARBON DIOXIDE 25 mmol/L (22-30); CHLORIDE 101 mmol/L (98-107); GLUCOSE 334 mg/dL (75-110); SODIUM 137.8 mmol/L (137-145)
[2018-11-28] MEDS ORDERED: METOPROLOL TARTRATE PF/INJ 5 MG/5 ML SDV IV ONE ×2 (05:57→06:55)
[2018-11-28] MEDS ORDERED: HYDRALAZINE HCL INJ/PF 20 MG/1 ML SDV IV ONE (06:33)
--- NOTE | 2018-11-28 07:00 | H&P/Discharge Summary ---
Discharge Summary Admission Date/PCP: 11/28/18 01:38 SOFI KAMARA MD Discharge Date: 11/28/18 Resuscitation Status: Full Code - Discharge Diagnosis (1) Abdominal pain Is this a current diagnosis for this admission?: Yes Summary: Abdominal pain without nausea vomiting or diarrhea with evidence of mild constipation by CT. No evidence to suggest ischemia or anginal equivalent. (2) Generalized weakness Is this a current diagnosis for this admission?: Yes Summary: Likely secondary to chronic deconditioning. Suggest outpatient follow-up with Dr. Kamara and consideration of physical therapy. (3) Hyperglycemia Is this a current diagnosis for this admission?: Yes Summary: No evidence of metabolic acidosis, recommend Accu-Cheks q. before meals and follow-up with primary care provider Dr. Kamara and 5-7 days. (4) Hypercalcemia Is this a current diagnosis for this admission?: Yes Summary: Possibly contributing to symptomology however most likely secondary to sedentary state versus milk-alkali syndrome. PTH normal, calcium corrects with fluid challenge. Follow-up chemistry 1-2 weeks. Home Medications: Aspirin [Aspirin EC] 81 mg PO DAILY 05/18/18 Buspirone HCl [Buspar 15 mg Tablet] 15 mg PO Q12 05/18/18 Clopidogrel Bisulfate [Plavix 75 mg Tablet] 75 mg PO DAILY 05/18/18 Gabapentin [Neurontin 300 mg Capsule] 300 mg PO Q12 05/18/18 Insulin Aspart Protam & Aspart [Novolog Mix 70-30 Vial] 65 unit SQ BID 05/18/18 Metoprolol Tartrate [Lopressor 50 mg Tablet] 50 mg PO Q12 05/18/18 Pantoprazole Sodium [Protonix] 40 mg PO DAILY 05/18/18 Ranolazine [Ranexa 500 mg Tab.sr] 500 mg PO Q8 05/18/18 Sertraline HCl [Zoloft] 25 mg PO DAILY 05/18/18 Sitagliptin Phosphate [Januvia] 100 mg PO DAILY 05/18/18 Allergies/Adverse Reactions: morphine Allergy (Mild, Verified 08/04/18 16:32) History of Present Illness Admission Date/PCP: 11/28/18 01:38 SOFI KAMARA MD Patient complains of: Generalized weakness History of Present Illness: ORACIO PEDROZA is a 83 year old female with a history of CLL, coronary artery disease, diabetes, hypertension, depression and chronic constipation. Patient presents with several days of generalized weakness. When CT imaging is unremarkable patient complains of abdominal pain. When CT abdomen returns patient complains of chest pain. ER provider and nurse describe reproducible nature. Patient is referred to hospitalist for observation stating concern for cardiac origin of pain however does not receive standard of care for anginal equivalent chest pain. Additionally, patient has had a negative cardiac stress test within 8 months. During prolonged ER visit patient does not receive home medication regiment for blood pressure resulting in elevated systolic blood pressure without symptoms she requires Lopressor and hydralazine. She denies chest pain palpitations shortness of breath nausea or vomiting. Repeated labs reveal correction of calcium, below detected level troponin and improved hyperglycemia. Subsequently patient is stable for discharge recommending follow-up with primary care provider in 5-7 days for chemistry and reporting Accu-Chek results Q AC. Past Medical History Cardiac Medical History: Reports: Atrial Fibrillation, Congestive Heart Failure, Coronary Artery Disease, Myocardial Infarction - x2, Hyperlipidema, Hypertension, Pulmonary Embolism - Distant history Pulmonary Medical History: Denies: Asthma, Chronic Obstructive Pulmonary Disease (COPD) EENT Medical History: Reports: None Neurological Medical History: Reports: None Denies: Seizures Endocrine Medical History: Reports: Diabetes Mellitus Type 2 Denies: Diabetes Mellitus Type 1, Hyperthyroidism, Hypothyroidism Renal/ Medical History: Reports: None Malignancy Medical History: Reports: None, Skin Cancer - Excised from her nose. 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 Cousin with leukemia. 3 brothers with unknown cancers. Mother also of unknown type of cancer., Other Parental Family History Reviewed: Yes Children Family History Reviewed: Yes Sibling(s) Family History Reviewed.: Yes Review of Systems Constitutional: ABSENT: chills, fever(s), headache(s), weight gain, weight loss Eyes: ABSENT: visual disturbances Ears: ABSENT: hearing changes Cardiovascular: ABSENT: chest pain, dyspnea on exertion, edema, orthropnea, palpitations Respiratory: ABSENT: cough, hemoptysis Gastrointestinal: ABSENT: abdominal pain, constipation, diarrhea, hematemesis, hematochezia, nausea, vomiting Genitourinary: ABSENT: dysuria, hematuria Musculoskeletal: ABSENT: joint swelling Integumentary: ABSENT: rash, wounds Neurological: ABSENT: abnormal gait, abnormal speech, confusion, dizziness, focal weakness, syncope Psychiatric: ABSENT: anxiety, depression, homidical ideation, suicidal ideation Endocrine: ABSENT: cold intolerance, heat intolerance, polydipsia, polyuria Hematologic/Lymphatic: ABSENT: easy bleeding, easy bruising Physical Exam Vital Signs: Temp Pulse Resp BP Pulse Ox 16 176/116 H 91 L 11/28/18 06:31 11/28/18 06:31 11/28/18 06:31 Intake & Output 11/26/18 11/27/18 11/28/18 11:59 11:59 11:59 Intake Total 1000 Balance 1000 Weight 88.541 kg General appearance: PRESENT: no acute distress, cooperative, obese, well- developed, well-nourished Head exam: PRESENT: atraumatic, normocephalic Eye exam: PRESENT: conjunctiva pink, EOMI, PERRLA. ABSENT: scleral icterus Ear exam: PRESENT: normal external ear exam Mouth exam: PRESENT: moist, tongue midline Neck exam: ABSENT: carotid bruit, JVD, lymphadenopathy, thyromegaly Respiratory exam: PRESENT: clear to auscultation carmen. ABSENT: rales, rhonchi, wheezes Cardiovascular exam: PRESENT: RRR. ABSENT: diastolic murmur, rubs, systolic murmur Pulses: PRESENT: normal dorsalis pedis pul Vascular exam: PRESENT: normal capillary refill GI/Abdominal exam: PRESENT: normal bowel sounds, soft. ABSENT: ascites, diminished bowel sounds, distended, guarding, mass, organolmegaly, rebound, tenderness Rectal exam: PRESENT: deferred Extremities exam: PRESENT: full ROM. ABSENT: calf tenderness, clubbing, pedal edema Neurological exam: PRESENT: alert, awake, oriented to person, oriented to place, oriented to time, oriented to situation, CN II-XII grossly intact. ABSENT: motor sensory deficit Psychiatric exam: PRESENT: appropriate affect, normal mood. ABSENT: homicidal ideation, suicidal ideation Focused psych exam: ABSENT: internal stimuli, paranoid, pressured speech, restlessness Skin exam: PRESENT: dry, intact, warm. ABSENT: cyanosis, rash Results Laboratory Results: 11/27/18 21:08 11/28/18 04:48 11/27/18 11/27/18 11/27/18 21:08 21:08 21:56 WBC 49.2 H* RBC 8.01 H Hgb 16.7 H Hct 54.2 H MCV 68 L MCH 20.9 L MCHC 30.9 L RDW 22.8 H Plt Count 251 Seg Neutrophils % Not Reportable Lymphocytes % Not Reportable Monocytes % Not Reportable Eosinophils % Not Reportable Basophils % Not Reportable Absolute Neutrophils Not Reportable Absolute Lymphocytes Not Reportable Absolute Monocytes Not Reportable Absolute Eosinophils Not Reportable Absolute Basophils Not Reportable Sodium 139.1 Potassium 4.5 Chloride 99 Carbon Dioxide 27 Anion Gap 13 BUN 25 H Creatinine 1.07 Est GFR ( Amer) 59 L Est GFR (Non-Af Amer) 49 L Glucose 480 H* Calcium 11.0 H Total Bilirubin 1.5 H AST 37 H ALT 14 Alkaline Phosphatase 331 H Total Protein 8.8 H Albumin 4.2 PTH Intact Urine Color YELLOW Urine Appearance SLIGHTLY-CLOUDY Urine pH 5.0 Ur Specific [place] 1.018 Urine Protein 30 H Urine Glucose (UA) >=500 H Urine Ketones NEGATIVE Urine Blood MODERATE H Urine Nitrite NEGATIVE Ur Leukocyte Esterase TRACE H Urine WBC (Auto) 6 Urine RBC (Auto) 18 11/28/18 11/28/18 04:48 04:48 WBC RBC Hgb Hct MCV MCH MCHC RDW Plt Count Seg Neutrophils % Lymphocytes % Monocytes % Eosinophils % Basophils % Absolute Neutrophils Absolute Lymphocytes Absolute Monocytes Absolute Eosinophils Absolute Basophils Sodium 137.8 Potassium 4.0 Chloride 101 Carbon Dioxide 25 Anion Gap 12 BUN 22 H Creatinine 0.90 Est GFR ( Amer) > 60 Est GFR (Non-Af Amer) > 60 Glucose 334 H Calcium 10.2 Total Bilirubin AST ALT Alkaline Phosphatase Total Protein Albumin PTH Intact 20.1 Urine Color Urine Appearance Urine pH Ur Specific [place] Urine Protein Urine Glucose (UA) Urine Ketones Urine Blood Urine Nitrite Ur Leukocyte Esterase Urine WBC (Auto) Urine RBC (Auto) 11/27/18 11/27/18 11/28/18 21:08 21:08 04:48 Creatine Kinase < 20 L CK-MB (CK-2) 0.48 Troponin I 0.022 < 0.012 Impressions: Head CT 11/27/18 22:00 IMPRESSION: Atrophy with small vessel ischemic change. Old right posterior parietal infarct. TECHNICAL DOCUMENTATION: Quality ID # 436: Final reports with documentation of one or more dose reduction techniques (e.g., Automated exposure control, adjustment of the mA and/or kV according to patient size, use of iterative reconstruction technique) copyright 2010 [employer]- All Rights Reserved Chest X-Ray 11/27/18 23:52 IMPRESSION: Cardiomegaly. Low lung volumes copyright 2010 [employer]- All Rights Reserved Abdomen/Pelvis CT 11/28/18 01:05 IMPRESSION: 1. No evidence of acute intra-abdominal or intrapelvic pathology. 2. Splenomegaly and borderline hepatomegaly. 3. Remote cholecystectomy, appendectomy and hysterectomy. 4. Stable simple appearing cyst arising from the upper pole of the right kidney. 5. Degenerative changes of the skeletal and vascular structures. 6. Nonspecific stranding of the perinephric fat bilaterally which can be seen with chronic medical renal disease. 7. Nonspecific slightly increased attenuation along the left posterior bladder wall. Qualifiers - * PATIENT BEING DISCHARGED WITH ANY OF THE FOLLOWING DIAGNOSIS: No Assessment & Plan - Time Time Spent: 50 to 70 Minutes - Plan Summary Plan Summary: Discharge home follow-up with primary care provider in 5-7 days for chemistry and with Accu-Chek results QIC. Continue home medication regiment, cardiac diet, activity as tolerated.
[2018-11-28] MEDS ORDERED: HYDRALAZINE HCL INJ/PF 20 MG/1 ML SDV ONE (07:30)
--- NOTE | 2018-11-28 08:01 | EKG REPORT ---
SEVERITY:- ABNORMAL ECG - SINUS TACHYCARDIA ATRIAL PREMATURE COMPLEX LEFT VENTRICULAR HYPERTROPHY ANTERIOR Q WAVES, POSSIBLY DUE TO LVH VERSUS OLD ANTERIOR VA : Confirmed by: Adam Bah MD 28-Nov-2018 08:00:48
[2018-11-28 09:19] VITALS: BP 142/77
== END 2018-11-28 09:38 | disposition home or self-care (01) ==
LOC: ER 20:49 → UNDOADMIN 11-28 01:38 → EH 11-28 01:38 → UNDODISIN 11-28 09:33 → ER 11-28 09:38
DX: R53.1 Weakness (principal); E83.52 Hypercalcemia; E11.65 Type 2 diabetes mellitus with hyperglycemia; R07.9 Chest pain, unspecified; R10.84 Generalized abdominal pain; I25.10 Atherosclerotic heart disease of native coronary artery without angina pectoris; I50.9 Heart failure, unspecified; E78.00 Pure hypercholesterolemia, unspecified; Z86.14 Personal history of Methicillin resistant Staphylococcus aureus infection; Z88.6 Allergy status to analgesic agent; Z90.49 Acquired absence of other specified parts of digestive tract; Z90.710 Acquired absence of both cervix and uterus; I25.2 Old myocardial infarction
CPT/HCPCS: 93005; 99285; 96360; 96361; 36415 ×2; 82553; 82550; 85025; 80048; 80053; 81001; 84484 ×2; 83970; 71045; 70450; 74177; 93010; J0360; J3490; A9270; J7030 ×2; J1815

== ENCOUNTER 2018-12-04 23:26 | Observation (INO) | payer MEDICARE, OTHER ==
--- NOTE | 2018-12-05 00:55 | ER Document Report ---
ED General - General Chief Complaint: Shortness Of Breath Stated Complaint: LOWER BACK PAIN Time Seen by Provider: 12/05/18 00:12 Primary Care Provider: SOFI GUERRIER MD [Primary Care Provider] - Follow up as needed TRAVEL OUTSIDE OF THE [place] IN LAST 30 DAYS: No - HPI Notes: Patient is a 83-year-old female that presents to the emergency department for chief complaint of pain in her lower extremities and shortness of breath. Patient has multiple complaints. She states most of this started after a fall a few days ago. She states she slipped in the shower and fell on the ground on her left side. She denied hitting her head or losing consciousness. She states it was a slip and not a syncopal episode. She denies being seen since her fall. Since then she is at increased pain in her feet and lower extremities. She states she has had increased edema in her lower extremities as well. Patient states she has had a pain in her mid back since the fall as well. Patient was recently seen in the hospital for chest pain and states she has continued to have chest pain since. She states the admitting doctor did not feel she needed to be admitted and she was discharged from the emergency room. She has not had follow-up with her PCP since being in the ER last. Her last episode of chest pain was yesterday. She describes it as "an elephant sitting on my chest". She denies known exacerbating relieving factors to the pain. She is not currently expressing any chest pain. She also endorses increased shortness of breath which is worse with reclined position. She denies wearing oxygen at home. She does report history of congestive heart failure. Past Medical History: CAD, CLL, CHF, DM Past Surgical History: Reviewed in chart Social History: Denies tobacco or alcohol use Family History: Reviewed and noncontributory for presenting illness Allergies: Reviewed, see documented allergy list. REVIEW OF SYSTEMS: CONSTITUTIONAL : No fever No chills No diaphoresis No recent illness EENT: No vision changes No congestion No sore throat CARDIOVASCULAR: chest pain No palpitations RESPIRATORY: shortness of breath No cough difficulty breathing GASTROINTESTINAL: No abdominal pain No nausea No vomiting No diarrhea GENITOURINARY: No dysuria No hematuria No difficulty urinating MUSCULOSKELETAL: back pain leg pain No arm pain SKIN: No rashes No lesions LYMPHATIC: No swollen, enlarged glands. NEUROLOGICAL: No lightheadedness No headache No weakness No paresthesias PSYCHIATRIC: No anxiety No depression PHYSICAL EXAMINATION: Vital signs reviewed, nursing noted reviewed. GENERAL: Well-appearing, obese ed and in no acute distress. HEAD: Atraumatic, normocephalic. EYES: Eyes appear normal, extraocular movements intact, sclera anicteric, conjunctiva are normal. ENT: nares patent, oropharynx clear without exudates. Moist mucous membranes. NECK: Normal range of motion, supple without lymphadenopathy LUNGS: Breath sounds clear to auscultation bilaterally and equal. No wheezes rales or rhonchi. HEART: Regular rate and rhythm without murmurs ABDOMEN: Protuberant, +2 pitting edema bilateral lower extremity left greater than soft, nontender, normoactive bowel sounds. No rebound, guarding, or rigidity. No masses appreciated. EXTREMITIES: Nontender, good range of motion, +2 pitting edema bilateral lower extremities. Tenderness to palpation in medial left ankle with overlying ecchymosis. Tenderness to palpation of proximal left fibular head. Normal range of motion and no deformity or effusion to the left knee. Ecchymosis to dorsal left foot with no underlying tenderness or bony deformity. No pain with range of motion of hips bilaterally and negative logroll to hips bilaterally. Pelvis stable. Back: No midline or paraspinal spinal tenderness, normal range of motion NEUROLOGICAL: No focal neurological deficits. Moves all extremities spontaneously Motor and sensory grossly intact on exam. PSYCH: Normal mood, normal affect. SKIN: Warm, Dry, normal turgor, no rashes or lesions noted on exposed skin - Related Data Allergies/Adverse Reactions: morphine Allergy (Mild, Verified 08/04/18 16:32) Past Medical History - Social History Smoking Status: Never Smoker Family History: CAD, COPD, DM, Hyperlipidemia, Hypertension, Malignancy - Father with lung cancer. Cousin with leukemia. 3 brothers with unknown cancers. Mother also of unknown type of cancer., Other Patient has suicidal ideation: No Patient has homicidal ideation: No - Past Medical History Cardiac Medical History: Reports: Hx Atrial Fibrillation, Hx Congestive Heart Failure, Hx Coronary Artery Disease, Hx Heart Attack - x2, Hx Hypercholesterolemia, Hx Hypertension, Hx Pulmonary Embolism - Distant history Pulmonary Medical History: Denies: Hx Asthma, Hx COPD Neurological Medical History: Denies: Hx Seizures Endocrine Medical History: Reports: Hx Diabetes Mellitus Type 2. Denies: Hx Diabetes Mellitus Type 1, Hx Hyperthyroidism, Hx Hypothyroidism Renal/ Medical History: Denies: Hx Peritoneal Dialysis Malignancy Medical History: Reports: Hx Skin Cancer - Excised from her nose. GI Medical History: Reports: Hx Gastroesophageal Reflux Disease. Denies: Hx Cirrhosis, Hx Hepatitis Musculoskeletal Medical History: Reports Hx Arthritis, Denies Hx Gout, Reports Hx Musculoskeletal Deformity Skin Medical History: Denies Hx Eczema, Denies Hx Psoriasis Psychiatric Medical History: Reports: Hx Anxiety, Hx Depression Infectious Medical History: Reports: Hx MRSA - remote history. Denies: Hx Hepatitis Past Surgical History: Reports: Hx Abdominal Surgery, Hx Appendectomy, Hx Cholecystectomy, Hx Hysterectomy, Hx Tonsillectomy, Hx Vascular Surgery, Other - Cardiac loop recorder, bilateral cataract surgery, hemorrhoidectomy - Immunizations Hx Diphtheria, Pertussis, Tetanus Vaccination: No Hx Pneumococcal Vaccination: 04/29/13 Physical Exam - Vital signs Vitals: Temp 98.0 F 12/04/18 23:27 Course - Re-evaluation Re-evalutation: 12/05/18 00:54 Vitals reviewed. Nursing notes reviewed. Patient is afebrile and nontoxic in appearance. [id number] glucose is elevated over 500. She was hypoxic on room air had placed on 4 L nasal cannula. While on the nasal cannula patient sat up and became more hypoxic. During my exam she is on 4 L and did have a decrease in oxygenation with movement however she did not drop below 96 when I had her sit up on the 4 L. She does not appear to be in any acute respiratory distress. She does have clear lung sounds bilaterally. 12/05/18 03:32 Patient's blood work shows a elevated leukocyte count consistent with her CLL. She has a normal troponin with no ischemic changes on her EKG. Chest x-ray shows no exacerbation of her heart failure. Patient does have a significant hyperglycemia with no anion gap or acidosis to suggest DKA. She was given IV fluids and insulin for her hyperglycemia. Patient has known CAD and recurrent chest pains. She will be admitted to the hospital for further cardiac management as well as glucose control. Patient in agreement with plan of care and stable at time of admission. Care discussed with Dr. Rinaldi Laboratory 12/05/18 12/05/18 12/05/18 01:30 02:19 02:19 WBC 47.9 H* RBC 6.98 H Hgb 14.6 Hct 47.5 H MCV 68 L MCH 21.0 L MCHC 30.8 L RDW 23.5 H Plt Count 270 Total Counted 100 Seg Neutrophils % Not Reportable Seg Neuts % (Manual) 98 H Lymphocytes % Not Reportable Lymphocytes % (Manual) 1 L Monocytes % Not Reportable Monocytes % (Manual) 1 L Eosinophils % Not Reportable Eosinophils % (Manual) 0 Basophils % Not Reportable Basophils % (Manual) 0 Absolute Neutrophils Not Reportable Abs Neuts (Manual) 46.9 H Absolute Lymphocytes Not Reportable Abs Lymphs (Manual) 0.5 Absolute Monocytes Not Reportable Abs Monocytes (Manual) 0.5 Absolute Eosinophils Not Reportable Absolute Eos (Manual) 0.0 Absolute Basophils Not Reportable Abs Basophils (Manual) 0.0 Toxic Granulation SLIGHT Toxic Vacuolation PRESENT Clumped Platelets PRESENT Giant Platelets PRESENT Platelet Comment ADEQUATE Poikilocytosis 2+ Anisocytosis 3+ Tear Drop Cells 1+ Ovalocytes 2+ Carbonic Acid HCO3/H2CO3 Ratio ABG pH ABG pCO2 ABG pO2 ABG HCO3 ABG Total CO2 ABG O2 Saturation ABG Base Excess FiO2 Sodium 133.0 L Potassium 4.5 Chloride 97 L Carbon Dioxide 27 Anion Gap 9 BUN 21 H Creatinine 0.94 Est GFR ( Amer) > 60 Est GFR (Non-Af Amer) 57 L Glucose 541 H* Calcium 8.7 Total Bilirubin 1.1 Direct Bilirubin 0.4 Neonat Total Bilirubin Not Reportable Neonat Direct Bilirubin Not Reportable Neonat Indirect Bili Not Reportable AST 28 ALT 15 Alkaline Phosphatase 327 H Troponin I NT-Pro-B Natriuret Pep Total Protein 7.4 Albumin 3.5 Urine Color YELLOW Urine Appearance CLEAR Urine pH 5.0 Ur Specific Jennings 1.018 Urine Protein NEGATIVE Urine Glucose (UA) >=500 H Urine Ketones NEGATIVE Urine Blood SMALL H Urine Nitrite NEGATIVE Urine Bilirubin NEGATIVE Urine Urobilinogen NEGATIVE Ur Leukocyte Esterase NEGATIVE Urine WBC (Auto) 6 Urine RBC (Auto) 3 Urine Bacteria (Auto) TRACE Squamous Epi Cells Auto 3 Urine Mucus (Auto) RARE Urine Ascorbic Acid NEGATIVE 12/05/18 12/05/18 02:19 03:10 WBC RBC Hgb Hct MCV MCH MCHC RDW Plt Count Total Counted Seg Neutrophils % Seg Neuts % (Manual) Lymphocytes % Lymphocytes % (Manual) Monocytes % Monocytes % (Manual) Eosinophils % Eosinophils % (Manual) Basophils % Basophils % (Manual) Absolute Neutrophils Abs Neuts (Manual) Absolute Lymphocytes Abs Lymphs (Manual) Absolute Monocytes Abs Monocytes (Manual) Absolute Eosinophils Absolute Eos (Manual) Absolute Basophils Abs Basophils (Manual) Toxic Granulation Toxic Vacuolation Clumped Platelets Giant Platelets Platelet Comment Poikilocytosis Anisocytosis Tear Drop Cells Ovalocytes Carbonic Acid 1.38 H HCO3/H2CO3 Ratio 20:1 ABG pH 7.40 ABG pCO2 45.7 H ABG pO2 87.9 ABG HCO3 27.7 H ABG Total CO2 29.1 H ABG O2 Saturation 96.7 ABG Base Excess 2.3 FiO2 36% Sodium Potassium Chloride Carbon Dioxide Anion Gap BUN Creatinine Est GFR ( Amer) Est GFR (Non-Af Amer) Glucose Calcium Total Bilirubin Direct Bilirubin Neonat Total Bilirubin Neonat Direct Bilirubin Neonat Indirect Bili AST ALT Alkaline Phosphatase Troponin I < 0.012 NT-Pro-B Natriuret Pep 555 H Total Protein Albumin Urine Color Urine Appearance Urine pH Ur Specific Jennings Urine Protein Urine Glucose (UA) Urine Ketones Urine Blood Urine Nitrite Urine Bilirubin Urine Urobilinogen Ur Leukocyte Esterase Urine WBC (Auto) Urine RBC (Auto) Urine Bacteria (Auto) Squamous Epi Cells Auto Urine Mucus (Auto) Urine Ascorbic Acid Chest X-Ray 12/05/18 00:25 IMPRESSION: No acute pulmonary findings. Ankle X-Ray 12/05/18 00:48 IMPRESSION: No acute fracture or dislocation copyright 2010 [email or web address]- All Rights Reserved Knee X-Ray 12/05/18 00:48 IMPRESSION: No acute osseous findings. who accepts admission. - Vital Signs Vital signs: Temp Pulse Resp BP Pulse Ox 98.0 F 17 136/55 H 94 12/04/18 23:27 12/05/18 02:01 12/05/18 02:01 12/05/18 02:01 - Laboratory Result Diagrams: 12/05/18 02:19 12/05/18 02:19 Laboratory results interpreted by me: 12/05/18 12/05/18 12/05/18 01:30 02:19 02:19 WBC 47.9 H* RBC 6.98 H Hct 47.5 H MCV 68 L MCH 21.0 L MCHC 30.8 L RDW 23.5 H Seg Neuts % (Manual) 98 H Lymphocytes % (Manual) 1 L Monocytes % (Manual) 1 L Abs Neuts (Manual) 46.9 H Carbonic Acid ABG pCO2 ABG HCO3 ABG Total CO2 Sodium 133.0 L Chloride 97 L BUN 21 H Est GFR (Non-Af Amer) 57 L Glucose 541 H* Alkaline Phosphatase 327 H NT-Pro-B Natriuret Pep Urine Glucose (UA) >=500 H Urine Blood SMALL H 12/05/18 12/05/18 02:19 03:10 WBC RBC Hct MCV MCH MCHC RDW Seg Neuts % (Manual) Lymphocytes % (Manual) Monocytes % (Manual) Abs Neuts (Manual) Carbonic Acid 1.38 H ABG pCO2 45.7 H ABG HCO3 27.7 H ABG Total CO2 29.1 H Sodium Chloride BUN Est GFR (Non-Af Amer) Glucose Alkaline Phosphatase NT-Pro-B Natriuret Pep 555 H Urine Glucose (UA) Urine Blood - EKG Interpretation by Me Additional EKG results interpreted by me: 12/05/18 00:55 Interpreted by myself [id number]: Normal sinus rhythm, rate 93, left axis, no ectopy, no STEMI, no significant change from 11/27/18 Discharge - Discharge Clinical Impression: Hyperglycemia, Leukocytosis Chest pain Qualifiers: Chest pain type: unspecified Qualified Code(s): R07.9 - Chest pain, unspecified Left ankle pain Qualifiers: Chronicity: acute Qualified Code(s): M25.572 - Pain in left ankle and joints of left foot Fall Qualifiers: Encounter type: initial encounter Qualified Code(s): W19.XXXA - Unspecified fall, initial encounter Condition: Stable Disposition: ADMITTED OBSERVATION Admitting Provider: [facility] (Hospitalist) Unit Admitted: Telemetry Referrals: SOFI GUERRIER MD [Primary Care Provider] - Follow up as needed
--- NOTE | 2018-12-05 01:42 | RADIOLOGY REPORT (SQ) ---
EXAM DESCRIPTION: [facility]: XR CHEST 1 VIEW CLINICAL HISTORY: 83 years Female, shortness of breath COMPARISON: 11/28/2018 FINDINGS: Lungs are clear, with no focal infiltrate, pneumothorax, or pleural effusion. Aortic calcifications are noted. A cardiac loop recorder is again noted. Heart size is within normal limits for this positioning. Bony structures are unremarkable. IMPRESSION: No acute pulmonary findings.
[2018-12-05 02:19] LABS: APPEARANCE,URINE CLEAR; BILIRUBIN,URINE NEGATIVE (NEGATIVE); COLOR,URINE YELLOW; GLUCOSE, URINE >=500 mg/dL (NEGATIVE); KETONES,URINE NEGATIVE (NEGATIVE); LEUKOCYTE ESTERASE,URINE NEGATIVE (NEGATIVE); NITRITE,URINE NEGATIVE (NEGATIVE); PROTEIN,URINE NEGATIVE (NEGATIVE); URINE SPECIFIC GRAVITY 1.018; UROBILINOGEN,URINE NEGATIVE mg/dL (<2.0)
[2018-12-05 02:42] LABS: HEMATOCRIT 47.5 % (36.0-47.0); HEMOGLOBIN 14.6 g/dL (12.0-15.5); MEAN CORPUSCULAR HGB CONC 30.8 g/dL (32.0-36.0); MEAN CORPUSCULAR VOLUME 68 fl (80-97); RED BLOOD COUNT 6.98 10^6/uL (3.72-5.28); RED CELL DISTRIBUTION WIDTH 23.5 % (11.5-14.0)
[2018-12-05] MEDS ORDERED: NORMAL SALINE 1000 ML 1,000 ML IV ONE (02:44)
[2018-12-05 02:57] LABS: ALANINE AMINOTRANSFERASE 15 U/L (9-52); ALBUMIN 3.5 g/dL (3.5-5.0); ALKALINE PHOSPHATASE 327 U/L (38-126); ANION GAP 9 (5-19); ASPARTATE AMINO TRANSFERASE 28 U/L (14-36); BILIRUBIN,DIRECT 0.4 mg/dL (0.0-0.4); BILIRUBIN,TOTAL 1.1 mg/dL (0.2-1.3); BLOOD UREA NITROGEN 21 mg/dL (7-20); CALCIUM 8.7 mg/dL (8.4-10.2); CARBON DIOXIDE 27 mmol/L (22-30); CHLORIDE 97 mmol/L (98-107); POTASSIUM 4.5 mmol/L (3.6-5.0); TOTAL PROTEIN 7.4 g/dL (6.3-8.2)
[2018-12-05 03:00] LABS: WHITE BLOOD COUNT 47.9 10^3/uL (4.0-10.5)
[2018-12-05 03:04] LABS: ABSOLUTE LYMPHOCYTES# (MANUAL) 0.5 10^3/uL (0.5-4.7); ABSOLUTE MONOCYTES # (MANUAL) 0.5 10^3/uL (0.1-1.4); ABSOLUTE NEUTROPHILS# (MANUAL) 46.9 10^3/uL (1.7-8.2); BASOPHILS % (MANUAL) 0 % (0-2); EOSINOPHILS % (MANUAL) 0 % (0-6); LYMPHOCYTES % (MANUAL) 1 % (13-45); MONOCYTES % (MANUAL) 1 % (3-13); SEGMENTED NEUTROPHILS % (MAN) 98 % (42-78); TOTAL CELLS COUNTED 100
[2018-12-05 03:05] LABS: TOXIC GRANULATION SLIGHT; TOXIC VACUOLATION PRESENT
--- NOTE | 2018-12-05 03:06 | RADIOLOGY REPORT (SQ) ---
CLINICAL HISTORY: trauma COMPARISON: None. TECHNIQUE: XR KNEE 4 OR MORE VIEWS 12/05/2018 12:48 AM CDT FINDINGS: There is no fracture. There is moderate narrowing of the medial knee compartment with mild narrowing of the patellofemoral and lateral knee compartment. There are vascular calcifications throughout. IMPRESSION: No acute osseous findings.
--- NOTE | 2018-12-05 03:07 | RADIOLOGY REPORT (SQ) ---
EXAM DESCRIPTION: XR ANKLE 3 OR MORE VIEWS COMPLETED DATE/TME: 12/05/2018 00:48 CLINICAL HISTORY: 83 years, Female, trauma COMPARISON: None. NUMBER OF VIEWS: Three TECHNIQUE: Three views of the left ankle LIMITATIONS: None. FINDINGS: There is no acute fracture or dislocation. The ankle mortise is intact. No large soft tissue swelling. Dorsal and plantar calcaneal spurs are noted. Vascular calcifications are present. IMPRESSION: No acute fracture or dislocation copyright 2010 [employer]- All Rights Reserved
[2018-12-05 03:09] LABS: NT PRO BNP 555 pg/mL (<450)
[2018-12-05 03:10] LABS: TROPONIN I < 0.012 ng/mL
[2018-12-05 03:11] LABS: ANISOCYTOSIS 3+; OVALOCYTES 2+; PLATELET CLUMPS PRESENT; PLATELET GIANT PRESENT; POIKILOCYTOSIS 2+; TEAR DROP CELLS 1+
[2018-12-05 03:12] LABS: GLUCOSE 541 mg/dL (75-110); PLATELET COMMENT ADEQUATE
[2018-12-05 03:13] LABS: PLATELET COUNT 270 10^3/uL (150-450)
[2018-12-05 03:17] LABS: ARTERIAL BLOOD BASE EXCESS 2.3 mmol/L; ARTERIAL BLOOD FIO2 36%; ARTERIAL BLOOD H2CO3 1.38 mmol/L (1.05-1.35); ARTERIAL BLOOD HCO3 27.7 mmol/L (20-24); ARTERIAL BLOOD O2 SATURATION 96.7 % (94-98); ARTERIAL BLOOD PCO2 45.7 mmHg (35-45); ARTERIAL BLOOD PO2 87.9 mmHg (80-100); ARTERIAL BLOOD TOTAL CO2 29.1 mmol/L (21-25)
[2018-12-05] MEDS ORDERED: INSULIN REG, HUMAN 100 UNIT/ML 3 ML VIAL (PYX) SUBCUT ONE (03:26)
[2018-12-05] MEDS ORDERED: DEXTROSE 40% GEL 15 GM TUBE PO PRN ×4 (04:52→05:56)
[2018-12-05] MEDS ORDERED: ZOLPIDEM TARTRATE 5 MG TABLET PO PRN (04:52)
[2018-12-05] MEDS ORDERED: DEXTROSE 50%-WATER 25 GM/50 ML DISP.SYRIN IV PRN ×4 (04:52→05:56)
[2018-12-05] MEDS ORDERED: ONDANSETRON HCL INJ/PF 4 MG/2 ML SDV IV PRN (04:52)
[2018-12-05] MEDS ORDERED: MAGNESIUM HYDROXIDE SUSP 30 ML UDCUP PO PRN (04:52)
[2018-12-05] MEDS ORDERED: MAG HYDROX/AL HYDROX/SIMETH SUSP 30 ML UDCUP PO PRN (04:52)
[2018-12-05] MEDS ORDERED: GLUCAGON,HUMAN RECOMB 1 MG INJ SUBCUT PRN (04:52)
[2018-12-05] MEDS ORDERED: ONDANSETRON 4 MG TAB.RAPDIS PO PRN (04:52)
[2018-12-05] MEDS ORDERED: ENOXAPARIN SODIUM INJ 40 MG/0.4 ML DISP.SYRIN SUBCUT SCH (05:15)
[2018-12-05 05:56] LABS: CHOLESTEROL 106.32 mg/dL (0-200); TRIGLYCERIDES 297 mg/dL (<150)
[2018-12-05] MEDS ORDERED: GLUCAGON,HUMAN RECOMB 1 MG INJ IM PRN (05:56)
--- NOTE | 2018-12-05 05:56 | PDOC H&P ---
History of Present Illness Admission Date/PCP: 12/05/18 03:41 SOFI GUERRIER MD Patient complains of: Fatigue, chest pain History of Present Illness: ORACIO PEDROZA is a 83 year old female with history of multiple medical problems that will be mentioned below who presented to the emergency room with acute onset of central chest pain with no radiation, felt like somebody sitting on her chest and graded 8/10 in severity of estimated nausea and mild diaphoresis as well as generalized fatigue. She has been having dry cough and occasional orthopnea. She denies any paroxysmal nocturnal dyspnea or worsening lower extremity edema. No fever or chills. No bleeding diathesis. No dysuria, oliguria or hematuria or flank pain. Upon presentation to the emergency room, blood pressure was 152/93 with a pulse of 97 respiratory rate of 20 temperature 98 and pulse oximetry of 86% on room air 93% on 4 L of O2 by nasal cannula. Labs revealed leukocytosis of 47.9 with her CLL , With hemoglobin of 14.6 and hematocrit 47.5 with platelets 270 and neutrophils 98% with absolute neutrophils 46.9%. ABG showed pH 7.4 with PCO2 45.7, PO2 of 87.9 bicarbonate 27.7 with O2 sat of 96.7% on 36% FiO2. His CMP revealed sodium of 133 with chloride of 97, BUN of 21 glucose of 541 with alk phos of 327. ProBNP 555 and troponin I less than 0.0 12. Urinalysis showed more than 500 glucose with 6 WBCs and 3 RBCsWe will continue on her current plan of care. No primary care visit brief respiratory arrest with history of alcohol and tobacco abuse who presented to the emergency room with acute onset of altered mental status with unresponsiveness and shallow breathing apparently followed by respiratory arrest and cyanosis for which EMS was called. Brief CPR was started and then the patient was given ammonia test that woke him up. Prior to that he has been drinking alcohol. He stated for beer and 2 liquor shots tonight. He has been having intermittent left parasternal chest pain that feels as pressure in sharp pain with diaphoresis and dyspnea as well as palpitations moderate in intensity and with radiation to his left neck as well as his left upper extremity. He denied any nausea or vomiting with it. He has been having cough productive of whitish sputum without wheezing. No dysuria, oliguria or hematuria or flank pain. No other bleeding diathesis. When he came to the emergency room his blood pressure was 143/91 with a pulse of 72 respiratory rate of 16 temperature 9097.6 and pulse oximetry is 98% on room air. Labs were exce pt for CO2 of 19 and serum alcohol of 133 with negative urine drug screen. The patient was given 1 L bolus of IV normal saline and 10 units of subcutaneous regular insulin. She would be admitted to an observation telemetry bed for further evaluation and management. Past Medical History Cardiac Medical History: Reports: Atrial Fibrillation, Congestive Heart Failure, Coronary Artery Disease, Myocardial Infarction - x2, Hyperlipidema, Hypertension, Pulmonary Embolism - Distant history Pulmonary Medical History: Denies: Asthma, Chronic Obstructive Pulmonary Disease (COPD) Neurological Medical History: Denies: Seizures Endocrine Medical History: Reports: Diabetes Mellitus Type 2 Denies: Diabetes Mellitus Type 1, Hyperthyroidism, Hypothyroidism Malignancy Medical History: Reports: Skin Cancer - Excised from her nose. 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 Past Surgical History Past Surgical History: Reports: Appendectomy, Cholecystectomy, Hysterectomy, Tonsillectomy, Vascular Surgery, Other - Cardiac loop recorder, bilateral cataract surgery, hemorrhoidectomy Social History Smoking Status: Never Smoker Frequency of Alcohol Use: None Hx Recreational Drug Use: No Drugs: None Hx Prescription Drug Abuse: No Family History Family History: CAD, COPD, DM, Hyperlipidemia, Hypertension, Malignancy - Father with lung cancer. Cousin with leukemia. 3 brothers with unknown cancers. Mother also of unknown type of cancer., Other Parental Family History Reviewed: Yes Children Family History Reviewed: Yes Sibling(s) Family History Reviewed.: Yes Medication/Allergy Home Medications: Aspirin [Ecotrin 81 mg EC Tablet] 81 mg PO DAILY 11/28/18 Buspirone HCl [Buspar 15 mg Tablet] 15 mg PO Q12 11/28/18 Clopidogrel Bisulfate [Plavix 75 mg Tablet] 75 mg PO DAILY 11/28/18 Furosemide [Lasix 40 mg Tablet] 40 mg PO DAILY 11/28/18 Gabapentin [Neurontin 300 mg Capsule] 300 mg PO Q12 11/28/18 Insulin Aspart Protam & Aspart [Novolog Mix 70-30 Vial] 65 units SQ Q12 11/28/18 Metoprolol Tartrate [Lopressor 50 mg Tablet] 50 mg PO Q12 11/28/18 Pantoprazole Sodium [Protonix [address] Tablet] 40 mg PO DAILY 11/28/18 Ranolazine [Ranexa 500 mg Tab.sr] 500 mg PO Q12 11/28/18 Sertraline HCl [Zoloft] 25 mg PO DAILY 11/28/18 Sitagliptin Phosphate [Januvia] 100 mg PO DAILY 11/28/18 Allergies/Adverse Reactions: morphine Allergy (Mild, Verified 08/04/18 16:32) Review of Systems Review of Systems: As per history of present illness. All pertinent systems were reviewed above. Constitutional, HEENT, cardiovascular, respiratory, GI, , musculoskeletal, neuro, psychiatric, endocrine, integumentary and hematologic systems were reviewed and are otherwise negative/unremarkable except for positive findings mentioned above in the HPI. Physical Exam Vital Signs: Temp Pulse Resp BP Pulse Ox 98.0 F 17 136/55 H 94 12/04/18 23:27 12/05/18 02:01 12/05/18 02:01 12/05/18 02:01 Intake & Output 12/03/18 12/04/18 12/05/18 06:59 06:59 06:59 Intake Total 416 Balance 416 Weight 83.2 kg Exam: Generally: Pleasant elderly female in no acute distress Vital signs-as listed Head - atraumatic, normocephalic. Pupils - equal, round and reactive to light and accommodation. Extraocular mov ements are intact. No scleral icterus. Oropharynx - moist mucous membranes and tongue. No pharyngeal erythema or exudate. Neck - supple. No JVD. Carotid pulses 2+ bilaterally. No carotid bruits. No pa lpable thyromegaly or lymphadenopathy. Cardiovascular - regular rate and rhythm. Normal S1 and S2. No murmurs, gallops or rubs. Lungs - clear to auscultation bilaterally. Abdomen - soft, distended and nontender. Positive bowel sounds. No palpable organomegaly or masses. Extremities - no pitting edema, clubbing or cyanosis. Neuro - grossly non-focal. Skin - no rashes. Breast, pelvic and rectal - deferred Results Laboratory Results: 12/05/18 02:19 12/05/18 02:19 12/05/18 12/05/18 12/05/18 01:30 02:19 02:19 WBC 47.9 H* RBC 6.98 H Hgb 14.6 Hct 47.5 H MCV 68 L MCH 21.0 L MCHC 30.8 L RDW 23.5 H Plt Count 270 Seg Neutrophils % Not Reportable Lymphocytes % Not Reportable Monocytes % Not Reportable Eosinophils % Not Reportable Basophils % Not Reportable Absolute Neutrophils Not Reportable Absolute Lymphocytes Not Reportable Absolute Monocytes Not Reportable Absolute Eosinophils Not Reportable Absolute Basophils Not Reportable Carbonic Acid HCO3/H2CO3 Ratio ABG pH ABG pCO2 ABG pO2 ABG HCO3 ABG O2 Saturation ABG Base Excess FiO2 Sodium 133.0 L Potassium 4.5 Chloride 97 L Carbon Dioxide 27 Anion Gap 9 BUN 21 H Creatinine 0.94 Est GFR ( Amer) > 60 Est GFR (Non-Af Amer) 57 L Glucose 541 H* Calcium 8.7 Total Bilirubin 1.1 AST 28 ALT 15 Alkaline Phosphatase 327 H Total Protein 7.4 Albumin 3.5 Urine Color YELLOW Urine Appearance CLEAR Urine pH 5.0 Ur Specific [place] 1.018 Urine Protein NEGATIVE Urine Glucose (UA) >=500 H Urine Ketones NEGATIVE Urine Blood SMALL H Urine Nitrite NEGATIVE Ur Leukocyte Esterase NEGATIVE Urine WBC (Auto) 6 Urine RBC (Auto) 3 12/05/18 03:10 WBC RBC Hgb Hct MCV MCH MCHC RDW Plt Count Seg Neutrophils % Lymphocytes % Monocytes % Eosinophils % Basophils % Absolute Neutrophils Absolute Lymphocytes Absolute Monocytes Absolute Eosinophils Absolute Basophils Carbonic Acid 1.38 H HCO3/H2CO3 Ratio 20:1 ABG pH 7.40 ABG pCO2 45.7 H ABG pO2 87.9 ABG HCO3 27.7 H ABG O2 Saturation 96.7 ABG Base Excess 2.3 FiO2 36% Sodium Potassium Chloride Carbon Dioxide Anion Gap BUN Creatinine Est GFR ( Amer) Est GFR (Non-Af Amer) Glucose Calcium Total Bilirubin AST ALT Alkaline Phosphatase Total Protein Albumin Urine Color Urine Appearance Urine pH Ur Specific [place] Urine Protein Urine Glucose (UA) Urine Ketones Urine Blood Urine Nitrite Ur Leukocyte Esterase Urine WBC (Auto) Urine RBC (Auto) 12/05/18 02:19 Troponin I < 0.012 NT-Pro-B Natriuret Pep 555 H Impressions: Chest X-Ray 12/05/18 00:25 IMPRESSION: No acute pulmonary findings. Ankle X-Ray 12/05/18 00:48 IMPRESSION: No acute fracture or dislocation copyright 2010 [employer]- All Rights Reserved Knee X-Ray 12/05/18 00:48 IMPRESSION: No acute osseous findings. Assessment and Plan - Diagnosis (1) Chest pain Qualifiers: Chest pain type: unspecified Qualified Code(s): R07.9 - Chest pain, unspecified Is this a current diagnosis for this admission?: Yes Plan: Chest pain, rule out acute coronary syndrome. The patient will be admitted to an observation telemetry bed. Will follow serial cardiac enzymes and EKGs. We will obtain a cardiology consult in a.m. for further cardiac risk stratification. The patient will be resumed on her Plavix and aspirin and p laced on p.r.n. sublingual nitroglycerin and Dilaudid for pain. (2) Uncontrolled type 2 diabetes mellitus Is this a current diagnosis for this admission?: Yes Plan: The patient will be placed on frequent fingerstick blood glucose measures with subcutaneous Humalog coverage. We will continue her basal coverage as well. Will hold off Januvia (3) Dyslipidemia Is this a current diagnosis for this admission?: Yes Plan: Fasting lipids will be obtained (4) CAD (coronary artery disease) Qualifiers: Coronary Disease-Associated Artery/Lesion type: [place] artery [place] vs. transplanted heart: jena heart Associated angina: without angina Qualified Code(s): I25.10 - Atherosclerotic heart disease of jena coronary artery without angina pectoris Is this a current diagnosis for this admission?: Yes Plan: Aspirin and Plavix as well as Ranexa and beta-lashell therapy will be resumed (5) Diastolic CHF Is this a current diagnosis for this admission?: Yes Plan: This is currently compensated. Her Lasix will be resumed. (6) HTN (hypertension) Qualifiers: Hypertension type: essential hypertension Qualified Code(s): I10 - Essential (primary) hypertension Is this a current diagnosis for this admission?: Yes Plan: Lopressor will be resumed (7) CLL (chronic lymphocytic leukemia) Is this a current diagnosis for this admission?: Yes Plan: No current flare (8) DVT prophylaxis Is this a current diagnosis for this admission?: Yes Plan: Subcutaneous Lovenox - Plan Summary Plan Summary: The plan of care was discussed in details with the patient. I answered all questions. The patient agreed to proceed with the above-mentioned plan. The patient is presumably full code. This note was created by [employer] software and may contain typo errors that may have not been proofread.
[2018-12-05 06:06] LABS: DIRECT LDL 44 mg/dL (<100)
[2018-12-05 06:15] LABS: VLDL CHOLESTEROL 59.4 mg/dL (10-31)
[2018-12-05] MEDS: PANTOPRAZOLE SODIUM 40 MG TABLET.DR PO SCH (06:56)
[2018-12-05] MEDS: INSULIN LISPRO 100 UNIT/ML 3 ML VIAL SUBCUT SCH ×6 (06:56→21:55)
[2018-12-05] MEDS: ENOXAPARIN SODIUM INJ 40 MG/0.4 ML DISP.SYRIN SUBCUT SCH (09:59)
[2018-12-05] MEDS ORDERED: PANTOPRAZOLE SODIUM 40 MG TABLET.DR PO SCH (10:00)
[2018-12-05] MEDS: HUM INSULIN NPH/REG INSULIN HM 100 UNIT/1 ML 3 ML SUBCUT SCH ×2 (10:04→21:56)
[2018-12-05] MEDS: BUSPIRONE HCL 10 MG TABLET PO SCH ×2 (10:59→21:55)
[2018-12-05] MEDS: RANOLAZINE 500 MG TAB.SR.12H PO SCH ×2 (10:59→21:55)
[2018-12-05] MEDS: SERTRALINE HCL 50 MG TABLET PO SCH (10:59)
[2018-12-05] MEDS: METOPROLOL TARTRATE 50 MG TABLET PO SCH ×2 (10:59→21:55)
[2018-12-05] MEDS: GABAPENTIN 300 MG CAPSULE PO SCH ×2 (11:00→21:55)
[2018-12-05] MEDS: ASPIRIN 81 MG TABLET, ENT COATED PO SCH (11:00)
[2018-12-05] MEDS: CLOPIDOGREL BISULFATE 75 MG TABLET PO SCH (11:00)
[2018-12-05] MEDS: FUROSEMIDE 40 MG TABLET PO SCH (11:00)
--- NOTE | 2018-12-06 00:07 | EKG REPORT ---
SEVERITY:- ABNORMAL ECG - SINUS RHYTHM LEFT AXIS DEVIATION CONSIDER ANTEROSEPTAL INFARCT : Confirmed by: Bud Medina 06-Dec-2018 00:06:52
--- NOTE | 2018-12-06 00:07 | EKG REPORT ---
SEVERITY:- ABNORMAL ECG - SINUS TACHYCARDIA WITH APCs BORDERLINE LEFT AXIS DEVIATION CONSIDER ANTEROSEPTAL INFARCT : Confirmed by: Bud Medina 06-Dec-2018 00:06:42
[2018-12-06] MEDS: PANTOPRAZOLE SODIUM 40 MG TABLET.DR PO SCH (05:30)
[2018-12-06 06:45] LABS: HEMATOCRIT 46.9 % (36.0-47.0); HEMOGLOBIN 14.6 g/dL (12.0-15.5); MEAN CORPUSCULAR HEMOGLOBIN 20.6 pg (27.0-33.4); MEAN CORPUSCULAR VOLUME 66 fl (80-97); PLATELET COUNT 274 10^3/uL (150-450); RED BLOOD COUNT 7.07 10^6/uL (3.72-5.28); RED CELL DISTRIBUTION WIDTH 23.1 % (11.5-14.0)
[2018-12-06 06:56] LABS: ANION GAP 10 (5-19); BLOOD UREA NITROGEN 18 mg/dL (7-20); CALCIUM 8.8 mg/dL (8.4-10.2); CARBON DIOXIDE 25 mmol/L (22-30); CHLORIDE 104 mmol/L (98-107); GLUCOSE 100 mg/dL (75-110); POTASSIUM 4.1 mmol/L (3.6-5.0); SODIUM 139.4 mmol/L (137-145)
[2018-12-06] MEDS: INSULIN LISPRO 100 UNIT/ML 3 ML VIAL SUBCUT SCH ×4 (07:23→21:30)
[2018-12-06 08:12] LABS: WHITE BLOOD COUNT 48.1 10^3/uL (4.0-10.5)
[2018-12-06 08:14] LABS: ABSOLUTE LYMPHOCYTES# (MANUAL) 1.4 10^3/uL (0.5-4.7); ABSOLUTE NEUTROPHILS# (MANUAL) 45.2 10^3/uL (1.7-8.2); BAND NEUTROPHILS % (MANUAL) 2 % (3-5); BASOPHILS % (MANUAL) 0 % (0-2); EOSINOPHILS % (MANUAL) 1 % (0-6); LYMPHOCYTES % (MANUAL) 3 % (13-45); MONOCYTES % (MANUAL) 2 % (3-13); SEGMENTED NEUTROPHILS % (MAN) 92 % (42-78); TOTAL CELLS COUNTED 100
[2018-12-06 08:20] LABS: TOXIC GRANULATION SLIGHT; TOXIC VACUOLATION PRESENT
[2018-12-06 08:21] LABS: ANISOCYTOSIS 3+; OVALOCYTES 1+; PLATELET COMMENT ADEQUATE; PLATELET GIANT PRESENT; POIKILOCYTOSIS 1+
[2018-12-06] MEDS: HUM INSULIN NPH/REG INSULIN HM 100 UNIT/1 ML 3 ML SUBCUT SCH ×2 (09:54→21:30)
[2018-12-06] MEDS: SERTRALINE HCL 50 MG TABLET PO SCH (09:55)
[2018-12-06] MEDS: METOPROLOL TARTRATE 50 MG TABLET PO SCH ×2 (09:55→21:30)
[2018-12-06] MEDS: ASPIRIN 81 MG TABLET, ENT COATED PO SCH (09:55)
[2018-12-06] MEDS: FUROSEMIDE 40 MG TABLET PO SCH (09:55)
[2018-12-06] MEDS: CLOPIDOGREL BISULFATE 75 MG TABLET PO SCH (09:55)
[2018-12-06] MEDS: BUSPIRONE HCL 10 MG TABLET PO SCH ×2 (09:55→21:30)
[2018-12-06] MEDS: GABAPENTIN 300 MG CAPSULE PO SCH ×2 (09:56→21:30)
[2018-12-06] MEDS: ENOXAPARIN SODIUM INJ 40 MG/0.4 ML DISP.SYRIN SUBCUT SCH (09:56)
[2018-12-06] MEDS: RANOLAZINE 500 MG TAB.SR.12H PO SCH ×2 (10:21→21:30)
[2018-12-06] MEDS: ACETAMINOPHEN 325 MG TABLET PO PRN (13:00)
--- NOTE | 2018-12-06 16:53 | PDOC PROGRESS REPORT ---
Subjective Progress Note for:: 12/06/18 Subjective:: No adverse events overnight. No new complaints. Vital signs are stable. No chest pain or shortness of breath. Reason For Visit: CHEST PAIN Physical Exam Vital Signs: Temp Pulse Resp BP Pulse Ox 97.5 F 87 18 127/52 H 96 12/06/18 11:24 12/06/18 14:00 12/06/18 11:24 12/06/18 11:24 12/06/18 11:24 Intake & Output 12/05/18 12/06/18 12/07/18 06:59 06:59 06:59 Intake Total 1000 540 Balance 1000 540 Weight 83.2 kg 83.2 kg General appearance: PRESENT: no acute distress, cooperative, disheveled, obese Respiratory exam: PRESENT: clear to auscultation carmen, symmetrical, unlabored. ABSENT: accessory muscle use, crackles, prolonged expiratory phas, rhonchi, tachypnea, wheezes Cardiovascular exam: PRESENT: RRR, +S1, +S2 Pulses: PRESENT: normal carotid pulses Vascular exam: PRESENT: normal capillary refill GI/Abdominal exam: PRESENT: normal bowel sounds, soft. ABSENT: distended, g uarding, rebound, tenderness Extremities exam: ABSENT: clubbing, pedal edema Musculoskeletal exam: PRESENT: normal inspection. ABSENT: deformity Neurological exam: PRESENT: alert, awake, oriented to person, oriented to place, oriented to time, oriented to situation Psychiatric exam: PRESENT: flat affect Skin exam: PRESENT: dry, warm Results Laboratory Results: 12/06/18 05:17 12/06/18 05:17 12/06/18 12/06/18 05:17 05:17 WBC 48.1 H* RBC 7.07 H Hgb 14.6 Hct 46.9 MCV 66 L MCH 20.6 L MCHC 31.0 L RDW 23.1 H Plt Count 274 Seg Neutrophils % Not Reportable Lymphocytes % Not Reportable Monocytes % Not Reportable Eosinophils % Not Reportable Basophils % Not Reportable Absolute Neutrophils Not Reportable Absolute Lymphocytes Not Reportable Absolute Monocytes Not Reportable Absolute Eosinophils Not Reportable Absolute Basophils Not Reportable Sodium 139.4 Potassium 4.1 Chloride 104 Carbon Dioxide 25 Anion Gap 10 BUN 18 Creatinine 0.86 Est GFR ( Amer) > 60 Est GFR (Non-Af Amer) > 60 Glucose 100 Calcium 8.8 12/05/18 12/06/18 02:19 10:20 Troponin I < 0.012 < 0.012 NT-Pro-B Natriuret Pep 555 H Impressions: Chest X-Ray 12/05/18 00:25 IMPRESSION: No acute pulmonary findings. Ankle X-Ray 12/05/18 00:48 IMPRESSION: No acute fracture or dislocation copyright 2010 [employer]- All Rights Reserved Knee X-Ray 12/05/18 00:48 IMPRESSION: No acute osseous findings. Assessment and Plan - Diagnosis (1) Chest pain Qualifiers: Chest pain type: other chest pain Qualified Code(s): R07.89 - Other chest pain; R07.8 - Other chest pain Is this a current diagnosis for this admission?: Yes Plan: Troponins negative. She had a negative stress test at the end of March 2018. No further workup indicated per cardiology. (2) CLL (chronic lymphocytic leukemia) Is this a current diagnosis for this admission?: Yes Plan: Counts are stable in the usual range, she will follow-up with oncology as an outpatient (3) Hyperglycemia Is this a current diagnosis for this admission?: Yes Plan: Control has improved substantially on current medication regimen. Noncompliance at home is suspected. - Time Time Spent with patient: 15-24 minutes - Plan Summary Plan Summary: Discharge home in the morning
[2018-12-07] MEDS: PANTOPRAZOLE SODIUM 40 MG TABLET.DR PO SCH (05:14)
[2018-12-07 06:23] LABS: HEMATOCRIT 46.3 % (36.0-47.0); HEMOGLOBIN 14.3 g/dL (12.0-15.5); MEAN CORPUSCULAR HEMOGLOBIN 20.8 pg (27.0-33.4); MEAN CORPUSCULAR HGB CONC 30.8 g/dL (32.0-36.0); MEAN CORPUSCULAR VOLUME 68 fl (80-97); PLATELET COUNT 296 10^3/uL (150-450); RED BLOOD COUNT 6.86 10^6/uL (3.72-5.28); RED CELL DISTRIBUTION WIDTH 23.5 % (11.5-14.0)
[2018-12-07 06:42] LABS: ANION GAP 11 (5-19); BLOOD UREA NITROGEN 21 mg/dL (7-20); CALCIUM 8.8 mg/dL (8.4-10.2); CARBON DIOXIDE 25 mmol/L (22-30); CHLORIDE 103 mmol/L (98-107); GLUCOSE 72 mg/dL (75-110); POTASSIUM 4.1 mmol/L (3.6-5.0); SODIUM 138.6 mmol/L (137-145)
[2018-12-07 08:00] LABS: ABSOLUTE MONOCYTES # (MANUAL) 1.5 10^3/uL (0.1-1.4); ABSOLUTE NEUTROPHILS# (MANUAL) 45.7 10^3/uL (1.7-8.2); BAND NEUTROPHILS % (MANUAL) 1 % (3-5); BASOPHILS % (MANUAL) 0 % (0-2); EOSINOPHILS % (MANUAL) 0 % (0-6); LYMPHOCYTES % (MANUAL) 4 % (13-45); MONOCYTES % (MANUAL) 3 % (3-13); SEGMENTED NEUTROPHILS % (MAN) 92 % (42-78); TOTAL CELLS COUNTED 100
[2018-12-07 08:02] LABS: ANISOCYTOSIS 3+; HYPOCHROMASIA 2+; OVALOCYTES 1+; PLATELET COMMENT ADEQUATE; POIKILOCYTOSIS 1+; POLYCHROMASIA 1+; TOXIC VACUOLATION PRESENT
[2018-12-07 08:03] LABS: WHITE BLOOD COUNT 49.1 10^3/uL (4.0-10.5)
[2018-12-07] MEDS: INSULIN LISPRO 100 UNIT/ML 3 ML VIAL SUBCUT SCH ×3 (08:18→17:22)
[2018-12-07] MEDS: RANOLAZINE 500 MG TAB.SR.12H PO SCH (09:26)
[2018-12-07] MEDS: ACETAMINOPHEN 325 MG TABLET PO PRN (09:26)
[2018-12-07] MEDS: ASPIRIN 81 MG TABLET, ENT COATED PO SCH (09:26)
[2018-12-07] MEDS: BUSPIRONE HCL 10 MG TABLET PO SCH (09:26)
[2018-12-07] MEDS: FUROSEMIDE 40 MG TABLET PO SCH (09:27)
[2018-12-07] MEDS: METOPROLOL TARTRATE 50 MG TABLET PO SCH (09:27)
[2018-12-07] MEDS: GABAPENTIN 300 MG CAPSULE PO SCH (09:27)
[2018-12-07] MEDS: HUM INSULIN NPH/REG INSULIN HM 100 UNIT/1 ML 3 ML SUBCUT SCH (09:27)
[2018-12-07] MEDS: CLOPIDOGREL BISULFATE 75 MG TABLET PO SCH (09:27)
[2018-12-07] MEDS: SERTRALINE HCL 50 MG TABLET PO SCH (09:27)
[2018-12-07] MEDS: ENOXAPARIN SODIUM INJ 40 MG/0.4 ML DISP.SYRIN SUBCUT SCH (09:30)
[2018-12-07] MEDS ORDERED: IBUPROFEN 800 MG TABLET PO ONE (12:15)
[2018-12-07 17:04] VITALS: BP 151/64
--- NOTE | 2018-12-07 19:42 | PDOC DISCHARGE SUMMARY ---
General - Admit/Disc Date/PCP Admission Date/Primary Care Provider: 12/05/18 03:41 SOFI GUERRIER MD Discharge Date: 12/07/18 - Discharge Diagnosis (1) Chest pain Is this a current diagnosis for this admission?: Yes Summary: Likely noncardiac. She had negative troponins and a recent negative stress test. Now resolved. (2) CLL (chronic lymphocytic leukemia) Is this a current diagnosis for this admission?: Yes Summary: White blood cell count is been stable in its usual range for her. (3) Hyperglycemia Is this a current diagnosis for this admission?: Yes Summary: Blood sugar initially was greater than 500, treated with insulin sliding scale in the carbohydrate controlled diet. Blood sugars have been much more reasonable since she was admitted. - Additional Information Discharge Diet: As Tolerated, Cardiac, Diabetic Discharge Activity: Activity As Tolerated Home Medications: Aspirin [Aspirin 81 mg Chewable Tablet] 81 mg PO DAILY 12/05/18 Buspirone HCl [Buspar 15 mg Tablet] 15 mg PO Q12 12/05/18 Clopidogrel Bisulfate [Plavix 75 mg Tablet] 75 mg PO DAILY 12/05/18 Docusate Sodium [Stool Softener] 100 mg PO DAILY 12/05/18 Furosemide [Lasix 40 mg Tablet] 40 mg PO DAILY 12/05/18 Hydroxyzine Pamoate [Vistaril 25 mg Capsule] 25 mg PO Q6HP PRN 12/05/18 Metoprolol Tartrate [Lopressor 50 mg Tablet] 50 mg PO Q12 12/05/18 Pantoprazole Sodium [Protonix [address] Tablet] 40 mg PO DAILY 12/05/18 Ranolazine [Ranexa 500 mg Tab.sr] 500 mg PO Q12 12/05/18 Sertraline HCl [Zoloft] 25 mg PO DAILY 12/05/18 Sitagliptin Phosphate [Januvia] 100 mg PO DAILY 12/05/18 Trazodone HCl [Desyrel 50 mg Tablet] 50 mg PO HSP PRN 12/05/18 History of Present Illness History of Present Illness: ORACIO PEDROZA is a 83 year old female with history of multiple medical problems that will be mentioned below who presented to the emergency room with acute onset of central chest pain with no radiation, felt like somebody sitting on her chest and graded 8/10 in severity of estimated nausea and mild diaphores is as well as generalized fatigue. She has been having dry cough and occasional orthopnea. She denies any paroxysmal nocturnal dyspnea or worsening lower extremity edema. No fever or chills. No bleeding diathesis. No dysuria, oliguria or hematuria or flank pain. Upon presentation to the emergency room, blood pressure was 152/93 with a pulse of 97 respiratory rate of 20 temperature 98 and pulse oximetry of 86% on room air 93% on 4 L of O2 by nasal cannula. Labs revealed leukocytosis of 47.9 with her CLL , With hemoglobin of 14.6 and hematocrit 47.5 with platelets 270 and neutrophils 98% with absolute neutrophils 46.9%. ABG showed pH 7.4 with PCO2 45.7, PO2 of 87.9 bicarbonate 27.7 with O2 sat of 96.7% on 36% FiO2. His CMP revealed sodium of 133 with chloride of 97, BUN of 21 glucose of 541 with alk phos of 327. ProBNP 555 and troponin I less than 0.0 12. Urinalysis showed more than 500 glucose with 6 WBCs and 3 RBCsWe will continue on her current plan of care. No primary care visit brief respiratory arrest with history of alcohol and tobacco abuse who presented to the emergency room with acute onset of altered mental status with unresponsiveness and shallow breathing apparently followed by respiratory arrest and cyanosis for which EMS was called. Brief CPR was started and then the patient was given ammonia test that woke him up. Prior to that he has been drinking alcohol. He stated for beer and 2 liquor shots tonight. He has been having intermittent left parasternal chest pain that feels as pressure in sharp pain with diaphoresis and dyspnea as well as palpitations moderate in intensity and with radiation to his left neck as well as his left upper extremity. He denied any nausea or vomiting with it. He has been having cough productive of whitish sputum without wheezing. No dysuria, oliguria or hematuria or flank pain. No other bleeding diathesis. When he came to the emergency room his blood pressure was 143/91 with a pulse of 72 respiratory rate of 16 temperature 9097.6 and pulse oximetry is 98% on room air. Labs were except for CO2 of 19 and serum alcohol of 133 with negative urine drug screen. The patient was given 1 L bolus of IV normal saline and 10 units of subcutaneous regular insulin. She would be admitted to an observation telemetry bed for further evaluation and management. Hospital Course Hospital Course: She was monitored and her troponins trended and they were negative. She had a recent negative stress test a few months ago. She did have a substantially elevated glucose when she first came in, but we just put her on a sliding scale and a consistent carbohydrate diet and her blood sugars were very well controlled, so I suspect that there is a bit of noncompliance, and she may have missed some of her insulin as well. Her white blood count was elevated but because of her CLL is always elevated and so it was stable in his usual range. Her labs and examination were reassuring she was discharged in good condition. Physical Exam Vital Signs: Temp Pulse Resp BP Pulse Ox 98.4 F 87 16 151/64 H 98 12/07/18 17:02 12/07/18 17:02 12/07/18 17:02 12/07/18 17:02 12/07/18 17:02 Intake & Output 12/06/18 12/07/18 12/08/18 06:59 06:59 06:59 Intake Total 112 250 4826 Balance 050 511 4610 Weight 83.2 kg 83.2 kg General appearance: PRESENT: no acute distress, cooperative, disheveled, obese Respiratory exam: PRESENT: clear to auscultation carmen, symmetrical, unlabored. ABSENT: accessory muscle use, crackles, prolonged expiratory phas, rhonchi, tachypnea, wheezes Cardiovascular exam: PRESENT: RRR, +S1, +S2 Pulses: PRESENT: normal carotid pulses Vascular exam: PRESENT: normal capillary refill GI/Abdominal exam: PRESENT: normal bowel sounds, soft. ABSENT: distended, guarding, rebound, tenderness Extremities exam: ABSENT: clubbing, pedal edema Musculoskeletal exam: PRESENT: normal inspection. ABSENT: deformity Neurological exam: PRESENT: alert, awake, oriented to person, oriented to place, oriented to time, oriented to situation Psychiatric exam: PRESENT: flat affect Skin exam: PRESENT: dry, warm Results Laboratory Results: 12/07/18 05:22 12/07/18 05:22 12/07/18 12/07/18 05:22 05:22 WBC 49.1 H* RBC 6.86 H Hgb 14.3 Hct 46.3 MCV 68 L MCH 20.8 L MCHC 30.8 L RDW 23.5 H Plt Count 296 Seg Neutrophils % Not Reportable Lymphocytes % Not Reportable Monocytes % Not Reportable Eosinophils % Not Reportable Basophils % Not Reportable Absolute Neutrophils Not Reportable Absolute Lymphocytes Not Reportable Absolute Monocytes Not Reportable Absolute Eosinophils Not Reportable Absolute Basophils Not Reportable Sodium 138.6 Potassium 4.1 Chloride 103 Carbon Dioxide 25 Anion Gap 11 BUN 21 H Creatinine 1.03 Est GFR ( Amer) > 60 Est GFR (Non-Af Amer) 51 L Glucose 72 L Calcium 8.8 12/05/18 01:30 Catheterized Urine Urine Culture - Final Lactobacillus (Vaginal Neelam) 12/05/18 12/06/18 02:19 10:20 Troponin I < 0.012 < 0.012 NT-Pro-B Natriuret Pep 555 H Impressions: Chest X-Ray 12/05/18 00:25 IMPRESSION: No acute pulmonary findings. Ankle X-Ray 12/05/18 00:48 IMPRESSION: No acute fracture or dislocation copyright 2011 [employer]- All Rights Reserved Knee X-Ray 12/05/18 00:48 IMPRESSION: No acute osseous findings. Qualifiers - * PATIENT BEING DISCHARGED WITH ANY OF THE FOLLOWING DIAGNOSIS: No Plan Time Spent: Greater than 30 Minutes
== END 2018-12-07 17:45 | disposition home or self-care (01) ==
LOC: ER 23:26 → EH 12-05 03:41 → 4W 12-05 06:21
PROVIDERS: ADMIT Family Medicine; ATTEND Family Medicine
DX: R07.89 Other chest pain (principal); C91.10 Chronic lymphocytic leukemia of B-cell type not having achieved remission; E11.65 Type 2 diabetes mellitus with hyperglycemia; R11.0 Nausea; R61 Generalized hyperhidrosis; R05 Cough; R06.01 Orthopnea; M25.572 Pain in left ankle and joints of left foot; E78.5 Hyperlipidemia, unspecified; I11.0 Hypertensive heart disease with heart failure; I50.30 Unspecified diastolic (congestive) heart failure; I25.10 Atherosclerotic heart disease of native coronary artery without angina pectoris; M54.5 Low back pain; W18.2XXA Fall in (into) shower or empty bathtub, initial encounter; E66.9 Obesity, unspecified; S90.02XA Contusion of left ankle, initial encounter; R09.02 Hypoxemia; I25.2 Old myocardial infarction; I48.91 Unspecified atrial fibrillation; K21.9 Gastro-esophageal reflux disease without esophagitis; Z79.899 Other long term (current) drug therapy; Z79.82 Long term (current) use of aspirin; Z79.02 Long term (current) use of antithrombotics/antiplatelets; Z82.49 Family history of ischemic heart disease and other diseases of the circulatory system; Z80.1 Family history of malignant neoplasm of trachea, bronchus and lung; Z79.4 Long term (current) use of insulin; Z86.711 Personal history of pulmonary embolism; Z90.49 Acquired absence of other specified parts of digestive tract
CPT/HCPCS: 93005 ×2; 94640; 99285; 96360; 96361; 51701; 36415 ×3; 87040; 87086; 82962 ×3; 82803; 85025 ×3; 80048 ×2; 80053; 81001; 84484 ×2; 80061; 83880; 73610; 71045; 73564; 93010; 36600; G0378 ×4; A9270 ×34; J1650 ×3; J7030; J3490; J1815

== ENCOUNTER 2018-12-12 17:29 | Emergency (ER) | payer MEDICARE, OTHER ==
[2018-12-12 18:43] LABS: HEMATOCRIT 48.1 % (36.0-47.0); HEMOGLOBIN 14.9 g/dL (12.0-15.5); MEAN CORPUSCULAR HEMOGLOBIN 21.1 pg (27.0-33.4); MEAN CORPUSCULAR VOLUME 68 fl (80-97); PLATELET COUNT 453 10^3/uL (150-450)
[2018-12-12 18:48] LABS: RED BLOOD COUNT 7.07 10^6/uL (3.72-5.28)
[2018-12-12 18:57] LABS: ALANINE AMINOTRANSFERASE 18 U/L (9-52); ALBUMIN 3.7 g/dL (3.5-5.0); ALKALINE PHOSPHATASE 290 U/L (38-126); ANION GAP 11 (5-19); ASPARTATE AMINO TRANSFERASE 37 U/L (14-36); BILIRUBIN,DIRECT 0.6 mg/dL (0.0-0.4); BILIRUBIN,TOTAL 1.5 mg/dL (0.2-1.3); BLOOD UREA NITROGEN 18 mg/dL (7-20); CALCIUM 9.9 mg/dL (8.4-10.2); CARBON DIOXIDE 26 mmol/L (22-30); CHLORIDE 99 mmol/L (98-107); POTASSIUM 4.2 mmol/L (3.6-5.0); SODIUM 136.1 mmol/L (137-145); TOTAL PROTEIN 7.9 g/dL (6.3-8.2)
[2018-12-12 18:58] LABS: ALCOHOL < 10 mg/dL (NONE DETECTED)
[2018-12-12 19:06] LABS: ABSOLUTE LYMPHOCYTES# (MANUAL) 0.9 10^3/uL (0.5-4.7); ABSOLUTE MONOCYTES # (MANUAL) 0.9 10^3/uL (0.1-1.4); ABSOLUTE NEUTROPHILS# (MANUAL) 43.4 10^3/uL (1.7-8.2); BAND NEUTROPHILS % (MANUAL) 3 % (3-5); BASOPHILS % (MANUAL) 0 % (0-2); EOSINOPHILS % (MANUAL) 1 % (0-6); LYMPHOCYTES % (MANUAL) 2 % (13-45); MONOCYTES % (MANUAL) 2 % (3-13); SEGMENTED NEUTROPHILS % (MAN) 92 % (42-78); TOTAL CELLS COUNTED 100
[2018-12-12 19:07] LABS: PLATELET COMMENT INCREASED
[2018-12-12 19:08] LABS: OVALOCYTES SLIGHT; PLATELET LARGE PRESENT; POIKILOCYTOSIS SLIGHT; TOXIC VACUOLATION PRESENT
[2018-12-12 19:10] LABS: ANISOCYTOSIS 3+; POLYCHROMASIA SLIGHT
[2018-12-12 19:14] LABS: GLUCOSE 422 mg/dL (75-110); WHITE BLOOD COUNT 45.7 10^3/uL (4.0-10.5)
[2018-12-12] MEDS ORDERED: NORMAL SALINE 500 ML IV ONE (19:35)
[2018-12-12] MEDS ORDERED: ONDANSETRON HCL INJ/PF 4 MG/2 ML SDV IV ONE (19:35)
[2018-12-12 19:46] LABS: APPEARANCE,URINE TURBID; BILIRUBIN,URINE NEGATIVE (NEGATIVE); COLOR,URINE YELLOW; GLUCOSE, URINE >=500 mg/dL (NEGATIVE); KETONES,URINE NEGATIVE (NEGATIVE); LEUKOCYTE ESTERASE,URINE MODERATE (NEGATIVE); NITRITE,URINE NEGATIVE (NEGATIVE); PROTEIN,URINE 100 mg/dL (NEGATIVE); URINE SPECIFIC GRAVITY 1.016
--- NOTE | 2018-12-12 19:51 | EKG REPORT ---
SEVERITY:- ABNORMAL ECG - SINUS TACHYCARDIA WITH IRREGULAR RATE 86-153 LEFT VENTRICULAR HYPERTROPHY ANTERIOR INFARCT, AGE INDETERMINATE BORDERLINE PROLONGED QT INTERVAL : Confirmed by: Seble Miguel MD 12-Dec-2018 19:50:19
[2018-12-12] MEDS ORDERED: CEFTRIAXONE 1 GM/D5W RTU 1 GM/50 ML RTUPB IV ONE (19:57)
--- NOTE | 2018-12-12 22:19 | ER Document Report ---
ED General - General Chief Complaint: Weakness Stated Complaint: FATIGUE Time Seen by Provider: 12/12/18 18:29 Primary Care Provider: SOFI GUERRIER MD [Primary Care Provider] - Follow up in 3-5 days Notes: Patient is a 83-year-old female with diabetes mellitus that presents to the emergency department for chief complaint of dysuria and weakness. Patient reports his been having some burning in her urine last few days, decreased appetite and nausea and has felt more weak. She decided to come to the emergency department to be evaluated. She denies having any fevers, chills, night sweats, chest pain, shortness of breath, difficulty breathing, vomiting or diarrhea. Reports prior history of urinary tract infections. She denies having any pain at this time as well. Past Medical History: Diabetes mellitus, hypertension, history of chronic leukocytosis, at one point was treated with chemotherapy. Past Surgical History: Hysterectomy, appendectomy Social History: Denies tobacco, alcohol or drug use. Family History: Reviewed and noncontributory for presenting illness Allergies: Reviewed, see documented allergy list. REVIEW OF SYSTEMS: Other than noted above, the 12 point review of systems was reviewed with the patient and were negative, all pertinent findings are included in the HPI. PHYSICAL EXAMINATION: Vital signs reviewed, nursing noted reviewed. GENERAL: Elderly female, no acute distress HEAD: Atraumatic, normocephalic. EYES: Eyes appear normal, extraocular movements intact, sclera anicteric, conjunctiva are normal. ENT: nares patent, oropharynx clear without exudates. Moist mucous membranes. NECK: Normal range of motion, supple without lymphadenopathy LUNGS: Breath sounds clear to auscultation bilaterally and equal. No wheezes rales or rhonchi. HEART: Heart rate mildly tachycardic, regular rhythm, no audible murmur ABDOMEN: Soft, suprapubic tenderness with palpation, no CVA tenderness, normoactive bowel sounds. No rebound, guarding, or rigidity. No masses appreciated. EXTREMITIES: Nontender, good range of motion, no pitting or edema. NEUROLOGICAL: No focal neurological deficits. Moves all extremities spontaneously Motor and sensory grossly intact on exam. PSYCH: Normal mood, normal affect. SKIN: Warm, Dry, normal turgor, no rashes or lesions noted on exposed skin TRAVEL OUTSIDE OF THE [place] IN LAST 30 DAYS: No - Related Data Allergies/Adverse Reactions: morphine Allergy (Mild, Verified 08/04/18 16:32) Past Medical History - Social History Smoking Status: Never Smoker Chew tobacco use (# tins/day): No Frequency of alcohol use: None Drug Abuse: None Family History: CAD, COPD, DM, Hyperlipidemia, Hypertension, Malignancy - Father with lung cancer. Cousin with leukemia. 3 brothers with unknown cancers. Mother also of unknown type of cancer., Other Patient has suicidal ideation: No Patient has homicidal ideation: No - Past Medical History Cardiac Medical History: Reports: Hx Atrial Fibrillation, Hx Congestive Heart Failure, Hx Coronary Artery Disease, Hx Heart Attack - x2, Hx Hypercholesterolemia, Hx Hypertension, Hx Pulmonary Embolism - Distant history Pulmonary Medical History: Denies: Hx Asthma, Hx COPD Neurological Medical History: Denies: Hx Seizures Endocrine Medical History: Reports: Hx Diabetes Mellitus Type 2. Denies: Hx Diabetes Mellitus Type 1, Hx Hyperthyroidism, Hx Hypothyroidism Renal/ Medical History: Denies: Hx Peritoneal Dialysis Malignancy Medical History: Reports: Hx Skin Cancer - Excised from her nose. GI Medical History: Reports: Hx Gastroesophageal Reflux Disease. Denies: Hx Cirrhosis, Hx Hepatitis Musculoskeletal Medical History: Reports Hx Arthritis, Denies Hx Gout, Reports Hx Musculoskeletal Deformity Skin Medical History: Denies Hx Eczema, Denies Hx Psoriasis Psychiatric Medical History: Reports: Hx Anxiety, Hx Depression Infectious Medical History: Reports: Hx MRSA - remote history. Denies: Hx Hepatitis Past Surgical History: Reports: Hx Abdominal Surgery, Hx Appendectomy, Hx Cholecystectomy, Hx Hysterectomy, Hx Tonsillectomy, Hx Vascular Surgery, Other - Cardiac loop recorder, bilateral cataract surgery, hemorrhoidectomy - Immunizations Hx Diphtheria, Pertussis, Tetanus Vaccination: No Hx Pneumococcal Vaccination: 04/29/13 Physical Exam - Vital signs Vitals: Temp Pulse Resp BP Pulse Ox 98.2 F 104 H 16 148/60 H 92 12/12/18 17:55 12/12/18 17:55 12/12/18 17:55 12/12/18 17:55 12/12/18 17:55 Course - Re-evaluation Re-evalutation: Patient seen and examined vital signs reviewed. Laboratory data and/or imaging were ordered as appropriate for the patient's presenting symptoms and complaint, with consideration of any critical or life threatening conditions that may be associated with their obtained history and exam as noted above. Patient was treated with IV fluids, started on IV Rocephin 1 g, after review of UA concerning for urinary tract infection, prior cultures were reviewed, patient is growing E. coli and enterococcus in the past. Patient was also noted to be hyperglycemic, she was given IV fluids, her repeat glucose was less than 400. She did not receive her evening Lantus, she was given this dose of 65 units prior to discharge. She was noted to have a significantly elevated leukocytosis, which upon review of labs she has had chronically for a very long time, and the patient did refer to this upon discussion of her past medical history. The patient was re-evaluated and was stable and she felt much improved Evaluation was most consistent with UTI, mild dehydration, patient will be discharged home on Augmentin, based on prior labs and sensitivities this would fit both the E. coli, and the Enterococcus she has grown in the past. Results were discussed with the patient at this point, after careful consideration I feel that that patient can be discharged from the emergency department, the patient was educated treatments and reasons to return to the emergency department based on their presumed diagnosis as noted above, they were advised to followup with a primary care physician in 2-3 days. Patient was agreeable to plan of care. *Note is created using voice recognition software and may contain spelling, syntax or grammatical errors. Laboratory 12/12/18 12/12/18 12/12/18 18:03 18:03 18:39 WBC 45.7 H* RBC 7.07 H Hgb 14.9 Hct 48.1 H MCV 68 L MCH 21.1 L MCHC 31.0 L RDW 23.0 H Plt Count 453 H Total Counted 100 Seg Neutrophils % Not Reportable Seg Neuts % (Manual) 92 H Band Neutrophils % 3 Lymphocytes % Not Reportable Lymphocytes % (Manual) 2 L Monocytes % Not Reportable Monocytes % (Manual) 2 L Eosinophils % Not Reportable Eosinophils % (Manual) 1 Basophils % Not Reportable Basophils % (Manual) 0 Absolute Neutrophils Not Reportable Abs Neuts (Manual) 43.4 H Absolute Lymphocytes Not Reportable Abs Lymphs (Manual) 0.9 Absolute Monocytes Not Reportable Abs Monocytes (Manual) 0.9 Absolute Eosinophils Not Reportable Absolute Eos (Manual) 0.5 Absolute Basophils Not Reportable Abs Basophils (Manual) 0.0 Toxic Vacuolation PRESENT Large Platelets PRESENT Platelet Comment INCREASED Polychromasia SLIGHT Poikilocytosis SLIGHT Anisocytosis 3+ Microcytosis 3+ Ovalocytes SLIGHT Sodium 136.1 L Potassium 4.2 Chloride 99 Carbon Dioxide 26 Anion Gap 11 BUN 18 Creatinine 0.88 Est GFR ( Amer) > 60 Est GFR (Non-Af Amer) > 60 Glucose 422 H* POC Glucose Calcium 9.9 Magnesium 1.8 Total Bilirubin 1.5 H Direct Bilirubin 0.6 H Neonat Total Bilirubin Not Reportable Neonat Direct Bilirubin Not Reportable Neonat Indirect Bili Not Reportable AST 37 H ALT 18 Alkaline Phosphatase 290 H Total Protein 7.9 Albumin 3.7 Urine Color YELLOW Urine Appearance TURBID Urine pH 5.0 Ur Specific [place] 1.016 Urine Protein 100 H Urine Glucose (UA) >=500 H Urine Ketones NEGATIVE Urine Blood MODERATE H Urine Nitrite NEGATIVE Urine Bilirubin NEGATIVE Urine Urobilinogen 2.0 H Ur Leukocyte Esterase MODERATE H Urine WBC (Auto) >182 Urine RBC (Auto) 25 Urine Bacteria (Auto) 2+ Squamous Epi Cells Auto 46 Urine Ascorbic Acid NEGATIVE Serum Alcohol < 10 12/12/18 22:27 WBC RBC Hgb Hct MCV MCH MCHC RDW Plt Count Total Counted Seg Neutrophils % Seg Neuts % (Manual) Band Neutrophils % Lymphocytes % Lymphocytes % (Manual) Monocytes % Monocytes % (Manual) Eosinophils % Eosinophils % (Manual) Basophils % Basophils % (Manual) Absolute Neutrophils Abs Neuts (Manual) Absolute Lymphocytes Abs Lymphs (Manual) Absolute Monocytes Abs Monocytes (Manual) Absolute Eosinophils Absolute Eos (Manual) Absolute Basophils Abs Basophils (Manual) Toxic Vacuolation Large Platelets Platelet Comment Polychromasia Poikilocytosis Anisocytosis Microcytosis Ovalocytes Sodium Potassium Chloride Carbon Dioxide Anion Gap BUN Creatinine Est GFR ( Amer) Est GFR (Non-Af Amer) Glucose POC Glucose 378 H Calcium Magnesium Total Bilirubin Direct Bilirubin Neonat Total Bilirubin Neonat Direct Bilirubin Neonat Indirect Bili AST ALT Alkaline Phosphatase Total Protein Albumin Urine Color Urine Appearance Urine pH Ur Specific [place] Urine Protein Urine Glucose (UA) Urine Ketones Urine Blood Urine Nitrite Urine Bilirubin Urine Urobilinogen Ur Leukocyte Esterase Urine WBC (Auto) Urine RBC (Auto) Urine Bacteria (Auto) Squamous Epi Cells Auto Urine Ascorbic Acid Serum Alcohol - Vital Signs Vital signs: Temp Pulse Resp BP Pulse Ox 98.7 F 106 H 18 122/64 95 12/12/18 22:51 12/12/18 22:51 12/12/18 22:51 12/12/18 22:51 12/12/18 22:51 - Laboratory Result Diagrams: 12/12/18 18:03 12/12/18 18:03 Laboratory results interpreted by me: 12/12/18 12/12/18 12/12/18 18:03 18:03 18:39 WBC 45.7 H* RBC 7.07 H Hct 48.1 H MCV 68 L MCH 21.1 L MCHC 31.0 L RDW 23.0 H Plt Count 453 H Seg Neuts % (Manual) 92 H Lymphocytes % (Manual) 2 L Monocytes % (Manual) 2 L Abs Neuts (Manual) 43.4 H Sodium 136.1 L Glucose 422 H* POC Glucose Total Bilirubin 1.5 H Direct Bilirubin 0.6 H AST 37 H Alkaline Phosphatase 290 H Urine Protein 100 H Urine Glucose (UA) >=500 H Urine Blood MODERATE H Urine Urobilinogen 2.0 H Ur Leukocyte Esterase MODERATE H 12/12/18 22:27 WBC RBC Hct MCV MCH MCHC RDW Plt Count Seg Neuts % (Manual) Lymphocytes % (Manual) Monocytes % (Manual) Abs Neuts (Manual) Sodium Glucose POC Glucose 378 H Total Bilirubin Direct Bilirubin AST Alkaline Phosphatase Urine Protein Urine Glucose (UA) Urine Blood Urine Urobilinogen Ur Leukocyte Esterase - EKG Interpretation by Me Additional EKG results interpreted by me: EKG demonstrates sinus tachycardia with a ventricular rate of 111 bpm, left axis deviation, QTC 489 ms, Q waves noted in V2 and V3, this is compared to prior EKG from 12/05/2018, without significant change. Discharge - Discharge Clinical Impression: Hyperglycemia UTI (urinary tract infection) Qualifiers: Urinary tract infection type: site unspecified Hematuria presence: with hematuria Qualified Code(s): N39.0 - Urinary tract infection, site not specified; R31.9 - Hematuria, unspecified Leukocytosis Qualifiers: Leukocytosis type: unspecified Qualified Code(s): D72.829 - Elevated white blood cell count, unspecified Condition: Stable Disposition: HOME, SELF-CARE Instructions: Urinary Tract Infection ([facility]) Additional Instructions: Please complete the entire course of antibiotics as prescribed, a total of 6 day s, please continue to maintain hydration, and drink plenty of fluid, for the UTI. Prescriptions: Amox Tr/Potassium Clavulanate [Augmentin 875-125 Tablet] 1 tab PO BID 6 Days #12 tablet Referrals: SOFI GUERRIER MD [Primary Care Provider] - Follow up in 3-5 days
[2018-12-12] MEDS ORDERED: INSULIN GLARGINE,HUM.REC.ANLOG 1,000 UNIT/10 ML VIAL SUBCUT ONE ×2 (22:39→22:42)
[2018-12-12 23:02] VITALS: BP 122/64
== END 2018-12-12 23:02 | disposition home or self-care (01) ==
LOC: ER 17:29
DX: N39.0 Urinary tract infection, site not specified (principal); R31.9 Hematuria, unspecified; E11.65 Type 2 diabetes mellitus with hyperglycemia; Z79.4 Long term (current) use of insulin; R53.1 Weakness; R63.0 Anorexia; R11.0 Nausea; D72.829 Elevated white blood cell count, unspecified; E11.9 Type 2 diabetes mellitus without complications; I25.10 Atherosclerotic heart disease of native coronary artery without angina pectoris; I10 Essential (primary) hypertension; Z92.21 Personal history of antineoplastic chemotherapy; Z87.440 Personal history of urinary (tract) infections; Z88.5 Allergy status to narcotic agent; Z85.828 Personal history of other malignant neoplasm of skin
CPT/HCPCS: 93005; 99285; 96361; 96375; 96365; 36415; 87086; 82962; 80307; 83735; 85025; 87088; 80053; 81001; 87186; 93010; A9270; J2405; J7040; J0696; J1815

== ENCOUNTER 2018-12-20 19:14 | Emergency (ER) | payer MEDICARE, OTHER ==
--- NOTE | 2018-12-20 20:11 | ER Document Report ---
ED General - General Chief Complaint: General Weakness Stated Complaint: FAILURE TO THRIVE Time Seen by Provider: 12/20/18 19:33 Primary Care Provider: SOFI GUERRIER MD [Primary Care Provider] - Follow up as needed TRAVEL OUTSIDE OF THE [place] IN LAST 30 DAYS: No - HPI Notes: Patient is a 83-year-old female that presents to the emergency department for chief complaint of nausea and vomiting. Patient presented by EMS from home. Her daughter called the ambulance when she had one episode of emesis today. She states she began to get nauseated this evening and has only thrown up one time. She denies any associated abdominal pain, diarrhea, fevers or chills. She denies any chest pain or shortness of breath. Patient states she told her daughter she did not want to come to the emergency room but her daughter insisted. She states that since she is here she is okay with being evaluated. Patient does state that she has been compliant with her medications. She states that she finished the course of antibiotics she was recently prescribed in the ER for UTI. Past Medical History: CHF, CAD, diabetes, CKD, hyperlipidemia, hypertension Past Surgical History: Reviewed in chart Social History: Reviewed in chart Family History: Reviewed and noncontributory for presenting illness Allergies: Reviewed, see documented allergy list. REVIEW OF SYSTEMS: CONSTITUTIONAL : No fever No chills No diaphoresis No recent illness EENT: No vision changes No congestion No sore throat CARDIOVASCULAR: No chest pain No palpitations RESPIRATORY: No shortness of breath No cough No difficulty breathing GASTROINTESTINAL: No abdominal pain nausea vomiting No diarrhea GENITOURINARY: No dysuria No hematuria No difficulty urinating MUSCULOSKELETAL: No back pain No leg pain No arm pain SKIN: No rashes No lesions LYMPHATIC: No swollen, enlarged glands. NEUROLOGICAL: No lightheadedness No headache No weakness No paresthesias PSYCHIATRIC: No anxiety No depression PHYSICAL EXAMINATION: Vital signs reviewed, nursing noted reviewed. GENERAL: Well-appearing, obese and in no acute distress. HEAD: Atraumatic, normocephalic. EYES: Eyes appear normal, extraocular movements intact, sclera anicteric, conjunctiva are normal. ENT: nares patent, oropharynx clear without exudates. Moist mucous membranes. NECK: Normal range of motion, supple without lymphadenopathy LUNGS: Breath sounds clear to auscultation bilaterally and equal. No wheezes rales or rhonchi. HEART: Tachycardic rate and regular rhythm without murmurs ABDOMEN: Soft, nontender, normoactive bowel sounds. No rebound, guarding, or rigidity. No masses appreciated. EXTREMITIES: Nontender, good range of motion, trace pretibial edema bilaterally NEUROLOGICAL: No focal neurological deficits. Moves all extremities spontaneously Motor and sensory grossly intact on exam. PSYCH: Normal mood, normal affect. SKIN: Warm, Dry, normal turgor, no rashes or lesions noted on exposed skin - Related Data Allergies/Adverse Reactions: morphine Allergy (Mild, Verified 08/04/18 16:32) Past Medical History - Social History Smoking Status: Never Smoker Family History: CAD, COPD, DM, Hyperlipidemia, Hypertension, Malignancy - Father with lung cancer. Cousin with leukemia. 3 brothers with unknown cancers. Mother also of unknown type of cancer., Other - Past Medical History Cardiac Medical History: Reports: Hx Atrial Fibrillation, Hx Congestive Heart Failure, Hx Coronary Artery Disease, Hx Heart Attack - x2, Hx Hypercholesterolemia, Hx Hypertension, Hx Pulmonary Embolism - Distant history Pulmonary Medical History: Denies: Hx Asthma, Hx COPD Neurological Medical History: Denies: Hx Seizures Endocrine Medical History: Reports: Hx Diabetes Mellitus Type 2. Denies: Hx Diabetes Mellitus Type 1, Hx Hyperthyroidism, Hx Hypothyroidism Renal/ Medical History: Denies: Hx Peritoneal Dialysis Malignancy Medical History: Reports: Hx Skin Cancer - Excised from her nose. GI Medical History: Reports: Hx Gastroesophageal Reflux Disease. Denies: Hx Cirrhosis, Hx Hepatitis Musculoskeletal Medical History: Reports Hx Arthritis, Denies Hx Gout, Reports Hx Musculoskeletal Deformity Skin Medical History: Denies Hx Eczema, Denies Hx Psoriasis Psychiatric Medical History: Reports: Hx Anxiety, Hx Depression Infectious Medical History: Reports: Hx MRSA - remote history. Denies: Hx Hepatitis Past Surgical History: Reports: Hx Abdominal Surgery, Hx Appendectomy, Hx Cholecystectomy, Hx Hysterectomy, Hx Tonsillectomy, Hx Vascular Surgery, Other - Cardiac loop recorder, bilateral cataract surgery, hemorrhoidectomy - Immunizations Hx Diphtheria, Pertussis, Tetanus Vaccination: No Hx Pneumococcal Vaccination: 04/29/13 Physical Exam - Vital signs Vitals: Temp Pulse Resp BP Pulse Ox 98.3 F 108 H 16 129/73 H 91 L 12/20/18 19:30 12/20/18 19:30 12/20/18 19:30 12/20/18 19:30 12/20/18 19:30 Course - Re-evaluation Re-evalutation: 12/20/18 21:13 Vitals reviewed. Nursing notes reviewed. Patient is mildly tachycardic at presentation and given IV fluids. 12/20/18 22:25 Patient's lab work shows baseline elevation in her WBC count. There is no acute anemia. She does still have the urinary tract infection. I reviewed her culture results from last week which shows it was sensitive to the Augmentin she had been prescribed. My suspicion is that patient has not been receiving her home medications including the antibiotic. I did order her a dose of Rocephin in the ER. Since she states she finished the course of antibiotics and still having UTI she will be switched to Macrobid. She does not appear toxic and is afebrile. She is not currently septic. Patient's heart rate has improved with IV hydration. She was found to be hyperglycemic and was ordered insulin. She is not acidotic or in DKA. I suspect noncompliance with home diabetes medication as well. Patient does not wish to be in the hospital. She would like to be discharged home and states she did not want to come in in the first place. She does have capacity to understand her current medical situation. She is aware of her home medications and can list them to me, she was encouraged to follow with her primary care provider or return to the emergency room for new concerning symptoms. Plan to discharge home if glucose is improved. Laboratory 12/20/18 12/20/18 12/20/18 21:19 21:19 21:19 WBC 43.3 H* RBC 7.19 H Hgb 15.2 Hct 48.3 H MCV 67 L MCH 21.2 L MCHC 31.5 L RDW 22.2 H Plt Count 332 Total Counted 100 Seg Neutrophils % Not Reportable Seg Neuts % (Manual) 95 H Lymphocytes % Not Reportable Lymphocytes % (Manual) 2 L Monocytes % Not Reportable Monocytes % (Manual) 2 L Eosinophils % Not Reportable Eosinophils % (Manual) 0 Basophils % Not Reportable Basophils % (Manual) 1 Absolute Neutrophils Not Reportable Abs Neuts (Manual) 41.1 H Absolute Lymphocytes Not Reportable Abs Lymphs (Manual) 0.9 Absolute Monocytes Not Reportable Abs Monocytes (Manual) 0.9 Absolute Eosinophils Not Reportable Absolute Eos (Manual) 0.0 Absolute Basophils Not Reportable Abs Basophils (Manual) 0.4 H Toxic Granulation SLIGHT Toxic Vacuolation PRESENT Platelet Comment ADEQUATE Polychromasia SLIGHT Hypochromasia 2+ Poikilocytosis 1+ Anisocytosis 3+ Microcytosis 2+ Tear Drop Cells SLIGHT Ovalocytes SLIGHT VBG pH VBG pCO2 VBG HCO3 VBG Base Excess Sodium 134.4 L Potassium 4.1 Chloride 100 Carbon Dioxide 26 Anion Gap 8 BUN 14 Creatinine 0.83 Est GFR ( Amer) > 60 Est GFR (Non-Af Amer) > 60 Glucose 445 H* Calcium 9.3 Total Bilirubin 1.2 Direct Bilirubin 0.3 Neonat Total Bilirubin Not Reportable Neonat Direct Bilirubin Not Reportable Neonat Indirect Bili Not Reportable AST 20 ALT 15 Alkaline Phosphatase 291 H Troponin I < 0.012 Total Protein 7.6 Albumin 3.6 Urine Color Urine Appearance Urine pH Ur Specific [place] Urine Protein Urine Glucose (UA) Urine Ketones Urine Blood Urine Nitrite Urine Bilirubin Urine Urobilinogen Ur Leukocyte Esterase Urine WBC (Auto) Urine RBC (Auto) Urine Bacteria (Auto) Urine WBC Clumps Squamous Epi Cells Auto U Non-Squamous Epis Auto Urine Mucus (Auto) Urine Ascorbic Acid 12/20/18 12/20/18 21:19 21:19 WBC RBC Hgb Hct MCV MCH MCHC RDW Plt Count Total Counted Seg Neutrophils % Seg Neuts % (Manual) Lymphocytes % Lymphocytes % (Manual) Monocytes % Monocytes % (Manual) Eosinophils % Eosinophils % (Manual) Basophils % Basophils % (Manual) Absolute Neutrophils Abs Neuts (Manual) Absolute Lymphocytes Abs Lymphs (Manual) Absolute Monocytes Abs Monocytes (Manual) Absolute Eosinophils Absolute Eos (Manual) Absolute Basophils Abs Basophils (Manual) Toxic Granulation Toxic Vacuolation Platelet Comment Polychromasia Hypochromasia Poikilocytosis Anisocytosis Microcytosis Tear Drop Cells Ovalocytes VBG pH 7.43 H VBG pCO2 40.9 VBG HCO3 26.5 VBG Base Excess 2.0 Sodium Potassium Chloride Carbon Dioxide Anion Gap BUN Creatinine Est GFR ( Amer) Est GFR (Non-Af Amer) Glucose Calcium Total Bilirubin Direct Bilirubin Neonat Total Bilirubin Neonat Direct Bilirubin Neonat Indirect Bili AST ALT Alkaline Phosphatase Troponin I Total Protein Albumin Urine Color DARK YELLOW Urine Appearance CLOUDY Urine pH 6.0 Ur Specific [place] 1.017 Urine Protein 100 H Urine Glucose (UA) >=500 H Urine Ketones NEGATIVE Urine Blood SMALL H Urine Nitrite NEGATIVE Urine Bilirubin NEGATIVE Urine Urobilinogen NEGATIVE Ur Leukocyte Esterase LARGE H Urine WBC (Auto) >182 Urine RBC (Auto) 7 Urine Bacteria (Auto) TRACE Urine WBC Clumps MOD Squamous Epi Cells Auto 15 U Non-Squamous Epis Auto 1 Urine Mucus (Auto) RARE Urine Ascorbic Acid NEGATIVE Chest X-Ray 12/20/18 19:33 IMPRESSION: No acute cardiopulmonary abnormalities. copyright 2010 [employer]- All Rights Reserved - Vital Signs Vital signs: Temp Pulse Resp BP Pulse Ox 98.3 F 108 H 16 129/73 H 91 L 12/20/18 19:30 12/20/18 19:30 12/20/18 19:30 12/20/18 19:30 12/20/18 19:30 - Laboratory Result Diagrams: 12/20/18 21:19 12/20/18 21:19 Laboratory results interpreted by me: 12/20/18 12/20/18 12/20/18 21:19 21:19 21:19 WBC 43.3 H* RBC 7.19 H Hct 48.3 H MCV 67 L MCH 21.2 L MCHC 31.5 L RDW 22.2 H Seg Neuts % (Manual) 95 H Lymphocytes % (Manual) 2 L Monocytes % (Manual) 2 L Abs Neuts (Manual) 41.1 H Abs Basophils (Manual) 0.4 H VBG pH 7.43 H Sodium 134.4 L Glucose 445 H* Alkaline Phosphatase 291 H Urine Protein Urine Glucose (UA) Urine Blood Ur Leukocyte Esterase 12/20/18 21:19 WBC RBC Hct MCV MCH MCHC RDW Seg Neuts % (Manual) Lymphocytes % (Manual) Monocytes % (Manual) Abs Neuts (Manual) Abs Basophils (Manual) VBG pH Sodium Glucose Alkaline Phosphatase Urine Protein 100 H Urine Glucose (UA) >=500 H Urine Blood SMALL H Ur Leukocyte Esterase LARGE H - EKG Interpretation by Me Additional EKG results interpreted by me: 12/20/18 20:10 Interpreted by myself 1943: Sinus tachycardia, rate 106, normal axis, no ectopy, no STEMI Discharge - Discharge Clinical Impression: Hyperglycemia, Dehydration, Nausea, Acute UTI Condition: Stable Disposition: HOME, SELF-CARE Instructions: Urinary Tract Infection ([facility]), Nitrofurantoin ([facility]), Hyperglycemia ([facility]) Additional Instructions: Please return to the emergency department if you have any worsening, or concern of your symptoms. Please return to the emergency department if you develop chest pain, difficulty breathing, severe abdominal pain, or ongoing vomiting. Please follow-up with your primary care physician in 2-3 days and any other recommended physicians. If prescribed, take all medications as directed. If you have any questions or concerns do not hesitate to return the emergency department for evaluation. Prescriptions: Nitrofurantoin Macrocrystal [Macrodantin] 100 mg PO BID #14 capsule Referrals: SOFI GUERRIER MD [Primary Care Provider] - Follow up in 3-5 days
[2018-12-20] MEDS ORDERED: NORMAL SALINE 1000 ML 1,000 ML IV ONE (21:10)
[2018-12-20] MEDS ORDERED: ONDANSETRON HCL INJ/PF 4 MG/2 ML SDV IV ONE (21:13)
[2018-12-20 21:43] LABS: VENOUS BLOOD HCO3 26.5 mmol/L (20-32); VENOUS BLOOD PCO2 40.9 mmHg (35-63); VENOUS BLOOD PH 7.43 (7.30-7.42)
[2018-12-20 21:51] LABS: HEMATOCRIT 48.3 % (36.0-47.0); HEMOGLOBIN 15.2 g/dL (12.0-15.5); MEAN CORPUSCULAR HEMOGLOBIN 21.2 pg (27.0-33.4); MEAN CORPUSCULAR HGB CONC 31.5 g/dL (32.0-36.0); MEAN CORPUSCULAR VOLUME 67 fl (80-97); PLATELET COUNT 332 10^3/uL (150-450); RED CELL DISTRIBUTION WIDTH 22.2 % (11.5-14.0)
--- NOTE | 2018-12-20 21:54 | RADIOLOGY REPORT (SQ) ---
EXAM DESCRIPTION: XR CHEST 1 VIEW COMPLETED DATE/TME: 12/20/2018 19:33 CLINICAL HISTORY: 83 years, Female, chest pain COMPARISON: None. NUMBER OF VIEWS: 1 TECHNIQUE: Single view, AP portable chest was obtained. LIMITATIONS: None. FINDINGS: Stable prominent cardiac and mediastinal silhouette. Heart size is top normal. Peripancreatic overlies the cardiac silhouette. Tortuous atherosclerotic thoracic aorta. Lungs are clear without focal opacity, pneumothorax or pleural effusions. LEFT linear basilar opacity may be secondary to subsegmental atelectasis or scarring. The visualized bones reveal degenerative change. IMPRESSION: No acute cardiopulmonary abnormalities. copyright 2010 [employer]- All Rights Reserved
[2018-12-20 22:06] LABS: ALANINE AMINOTRANSFERASE 15 U/L (9-52); ALBUMIN 3.6 g/dL (3.5-5.0); ALKALINE PHOSPHATASE 291 U/L (38-126); ANION GAP 8 (5-19); ASPARTATE AMINO TRANSFERASE 20 U/L (14-36); BILIRUBIN,DIRECT 0.3 mg/dL (0.0-0.4); BILIRUBIN,TOTAL 1.2 mg/dL (0.2-1.3); BLOOD UREA NITROGEN 14 mg/dL (7-20); CALCIUM 9.3 mg/dL (8.4-10.2); CARBON DIOXIDE 26 mmol/L (22-30); CHLORIDE 100 mmol/L (98-107); POTASSIUM 4.1 mmol/L (3.6-5.0); SODIUM 134.4 mmol/L (137-145); TOTAL PROTEIN 7.6 g/dL (6.3-8.2)
[2018-12-20] MEDS ORDERED: INSULIN REG, HUMAN 100 UNIT/ML 3 ML VIAL (PYX) SUBCUT ONE ×2 (22:08→22:11)
[2018-12-20 22:09] LABS: GLUCOSE 445 mg/dL (75-110); RED BLOOD COUNT 7.19 10^6/uL (3.72-5.28)
[2018-12-20 22:12] LABS: ABSOLUTE LYMPHOCYTES# (MANUAL) 0.9 10^3/uL (0.5-4.7); ABSOLUTE MONOCYTES # (MANUAL) 0.9 10^3/uL (0.1-1.4); ABSOLUTE NEUTROPHILS# (MANUAL) 41.1 10^3/uL (1.7-8.2); BASOPHILS % (MANUAL) 1 % (0-2); EOSINOPHILS % (MANUAL) 0 % (0-6); LYMPHOCYTES % (MANUAL) 2 % (13-45); MONOCYTES % (MANUAL) 2 % (3-13); SEGMENTED NEUTROPHILS % (MAN) 95 % (42-78); TOTAL CELLS COUNTED 100
[2018-12-20 22:14] LABS: ANISOCYTOSIS 3+; HYPOCHROMASIA 2+; POLYCHROMASIA SLIGHT; TOXIC GRANULATION SLIGHT; TOXIC VACUOLATION PRESENT
[2018-12-20 22:15] LABS: OVALOCYTES SLIGHT; PLATELET COMMENT ADEQUATE; POIKILOCYTOSIS 1+; TEAR DROP CELLS SLIGHT
[2018-12-20 22:16] LABS: APPEARANCE,URINE CLOUDY; BILIRUBIN,URINE NEGATIVE (NEGATIVE); GLUCOSE, URINE >=500 mg/dL (NEGATIVE); KETONES,URINE NEGATIVE (NEGATIVE); LEUKOCYTE ESTERASE,URINE LARGE (NEGATIVE); NITRITE,URINE NEGATIVE (NEGATIVE); PROTEIN,URINE 100 mg/dL (NEGATIVE); URINE SPECIFIC GRAVITY 1.017; UROBILINOGEN,URINE NEGATIVE mg/dL (<2.0)
[2018-12-20 22:18] LABS: COLOR,URINE DARK YELLOW; WHITE BLOOD COUNT 43.3 10^3/uL (4.0-10.5)
[2018-12-20] MEDS ORDERED: CEFTRIAXONE INJ 1000 MG VIAL IV ONE (22:20)
--- NOTE | 2018-12-21 08:58 | EKG REPORT ---
SEVERITY:- OTHERWISE NORMAL ECG - SINUS TACHYCARDIA PACS : Confirmed by: Adam Bah MD 21-Dec-2018 08:58:09
[2018-12-21 10:26] VITALS: BP 167/84
== END 2018-12-21 10:26 | disposition home or self-care (01) ==
LOC: ER 19:14
DX: R11.0 Nausea (principal); N39.0 Urinary tract infection, site not specified; E86.0 Dehydration; E11.65 Type 2 diabetes mellitus with hyperglycemia; I50.9 Heart failure, unspecified; I48.91 Unspecified atrial fibrillation; Z86.14 Personal history of Methicillin resistant Staphylococcus aureus infection; Z90.49 Acquired absence of other specified parts of digestive tract
CPT/HCPCS: 93005; 99285; 96361; 96375; 96365; 36415; 87086; 82962; 85025; 87088; 80053; 81001; 84484; 87186; 82803; 71045; 93010; A9270; J0696; J2405; J7030; J1815

== ENCOUNTER 2018-12-25 12:03 | Inpatient (IN) | payer MEDICARE, OTHER ==
[2018-12-25 12:48] LABS: HEMOGLOBIN 14.9 g/dL (12.0-15.5); MEAN CORPUSCULAR HEMOGLOBIN 21.2 pg (27.0-33.4); MEAN CORPUSCULAR VOLUME 68 fl (80-97); PLATELET COUNT 279 10^3/uL (150-450); RED BLOOD COUNT 7.02 10^6/uL (3.72-5.28); RED CELL DISTRIBUTION WIDTH 22.3 % (11.5-14.0)
[2018-12-25 13:06] LABS: ALANINE AMINOTRANSFERASE 20 U/L (9-52); ALBUMIN 3.7 g/dL (3.5-5.0); ALKALINE PHOSPHATASE 324 U/L (38-126); ANION GAP 14 (5-19); ASPARTATE AMINO TRANSFERASE 23 U/L (14-36); BILIRUBIN,DIRECT 0.4 mg/dL (0.0-0.4); BILIRUBIN,TOTAL 1.3 mg/dL (0.2-1.3); BLOOD UREA NITROGEN 19 mg/dL (7-20); CALCIUM 9.5 mg/dL (8.4-10.2); CARBON DIOXIDE 30 mmol/L (22-30); CHLORIDE 91 mmol/L (98-107); POTASSIUM 4.7 mmol/L (3.6-5.0); SODIUM 134.5 mmol/L (137-145); TOTAL PROTEIN 7.7 g/dL (6.3-8.2)
[2018-12-25 13:12] LABS: CREATINE KINASE < 20 U/L (30-135)
[2018-12-25 13:13] LABS: GLUCOSE 552 mg/dL (75-110)
[2018-12-25 13:16] LABS: WHITE BLOOD COUNT 41.3 10^3/uL (4.0-10.5)
[2018-12-25 13:18] LABS: ABSOLUTE LYMPHOCYTES# (MANUAL) 0.8 10^3/uL (0.5-4.7); ABSOLUTE MONOCYTES # (MANUAL) 1.2 10^3/uL (0.1-1.4); ABSOLUTE NEUTROPHILS# (MANUAL) 38.4 10^3/uL (1.7-8.2); BAND NEUTROPHILS % (MANUAL) 2 % (3-5); BASOPHILS % (MANUAL) 1 % (0-2); CREATINE KINASE MB 0.29 ng/mL (<4.55); EOSINOPHILS % (MANUAL) 1 % (0-6); LYMPHOCYTES % (MANUAL) 1 % (13-45); MONOCYTES % (MANUAL) 3 % (3-13); SEGMENTED NEUTROPHILS % (MAN) 91 % (42-78); TOTAL CELLS COUNTED 100
[2018-12-25 13:20] LABS: TROPONIN I < 0.012 ng/mL
[2018-12-25 13:26] LABS: ANISOCYTOSIS 3+; HYPOCHROMASIA 2+; OVALOCYTES SLIGHT; POIKILOCYTOSIS SLIGHT; POLYCHROMASIA 1+; SMUDGE CELLS PRESENT; TEAR DROP CELLS SLIGHT; TOXIC VACUOLATION PRESENT
[2018-12-25 13:27] LABS: PLATELET COMMENT ADEQUATE
[2018-12-25] MEDS ORDERED: INSULIN REG, HUMAN 100 UNIT/ML 3 ML VIAL (PYX) IV ONE ×2 (16:00→22:00)
[2018-12-25 16:51] LABS: APPEARANCE,URINE CLOUDY; BILIRUBIN,URINE NEGATIVE (NEGATIVE); COLOR,URINE YELLOW; GLUCOSE, URINE >=500 mg/dL (NEGATIVE); KETONES,URINE NEGATIVE (NEGATIVE); LEUKOCYTE ESTERASE,URINE MODERATE (NEGATIVE); NITRITE,URINE NEGATIVE (NEGATIVE); PROTEIN,URINE NEGATIVE (NEGATIVE); URINE SPECIFIC GRAVITY 1.023; UROBILINOGEN,URINE NEGATIVE mg/dL (<2.0)
[2018-12-25] MEDS ORDERED: NORMAL SALINE 1000 ML 1,000 ML IV ONE (17:20)
[2018-12-25] MEDS ORDERED: CEFTRIAXONE 1 GM/D5W RTU 1 GM/50 ML RTUPB IV ONE (17:21)
[2018-12-25] MEDS ORDERED: LEVALBUTEROL HCL NEB 0.63 MG/3 ML AMPUL NEB PRN (17:49)
[2018-12-25] MEDS ORDERED: ACETAMINOPHEN 325 MG TABLET PO PRN (17:49)
--- NOTE | 2018-12-25 17:49 | ER Document Report ---
Entered by GLEN ALVAREZ SCRIBE 12/25/18 1217 Acting as scribe for:DREA MURPHY MD ED General - General Stated Complaint: WEAKNESS Time Seen by Provider: 12/25/18 12:07 Primary Care Provider: SOFI GUERRIER MD [Primary Care Provider] - Follow up as needed Mode of Arrival: Medic Information source: Patient Notes: Patient is an 83 year old female that presents to the emergency department today with complaints of "not feeling too well". History is extremely limited as the patient is not a good historian and no family is here with her. Patient is unable to describe the "not feeling too well" feeling. EMS reports that when they arrived on scene, family stated that the patient was "not speaking too well" this morning. Patient has been seen here in this ED several times over the last month, with the last time being for complaints of "failure to thrive". The patient's daughter arrived and reports that the patient fell twice yesterd ay. This morning she was confused, unable to use her left upper extremity, and her speech was thick. Patient has been to our emergency room on 5 separate occasions in the past 4 weeks including one that resulted in an admission. She was admitted here on 10/13/2018 through 10/18/2018. According to her daughter she was discharged to [facility] for rehabilitation. Daughter feels that she did not stay at the rehab center long enough. TRAVEL OUTSIDE OF THE [place] IN LAST 30 DAYS: No - Related Data Allergies/Adverse Reactions: morphine Allergy (Mild, Verified 08/04/18 16:32) Past Medical History - General Information source: Patient, Emergency Med Personnel, [facility], [facility] Records - Social History Smoking Status: Former Smoker Cigarette use (# per day): No Frequency of alcohol use: None Drug Abuse: None Lives with: Family Family History: Reviewed & Not Pertinent, CAD, COPD, DM, Hyperlipidemia, H ypertension, Malignancy - Father with lung cancer. Cousin with leukemia. 3 brothers with unknown cancers. Mother also of unknown type of cancer., Other - Past Medical History Cardiac Medical History: Reports: Hx Atrial Fibrillation, Hx Congestive Heart F ailure, Hx Coronary Artery Disease, Hx Heart Attack - x2, Hx Hypercholesterolemia, Hx Hypertension, Hx Pulmonary Embolism - Distant history Endocrine Medical History: Reports: Hx Diabetes Mellitus Type 2 Malignancy Medical History: Reports: Hx Skin Cancer - Excised from her nose. GI Medical History: Reports: Hx Gastroesophageal Reflux Disease Musculoskeletal Medical History: Reports Hx Arthritis, Reports Hx Musculoskeletal Deformity Psychiatric Medical History: Reports: Hx Anxiety, Hx Depression Infectious Medical History: Reports: Hx MRSA - remote history Past Surgical History: Reports: Hx Abdominal Surgery, Hx Appendectomy, Hx Cholecystectomy, Hx Hysterectomy, Hx Tonsillectomy, Hx Vascular Surgery, Other - Cardiac loop recorder, bilateral cataract surgery, hemorrhoidectomy - Immunizations Hx Diphtheria, Pertussis, Tetanus Vaccination: No Hx Pneumococcal Vaccination: 04/29/13 Review of Systems - Review of Systems -: Yes ROS unobtainable due to patient's medical condition Physical Exam - Vital signs Vitals: Resp 5 L 12/25/18 12:06 - Notes Notes: PHYSICAL EXAMINATION: GENERAL: Well-appearing, well-nourished and in no acute distress. HEAD: Atraumatic, normocephalic. EYES: Pupils equal round and reactive to light, extraocular movements intact, sclera anicteric, conjunctiva are normal. ENT: nares patent, oropharynx clear without exudates. Moist mucous membranes. NECK: Normal range of motion, supple without lymphadenopathy LUNGS: Breath sounds clear to auscultation bilaterally and equal. No wheezes rales or rhonchi. HEART: Regular rate and rhythm without murmurs ABDOMEN: Soft, nontender, normoactive bowel sounds. Obese. No guarding, no jonathan ound. No masses appreciated. EXTREMITIES: Extremities are grossly normal. There is some lower extremity edema. No cyanosis. NEUROLOGICAL: Cranial nerves grossly intact. Speech may be a little thick, but I do not think it is significantly different from what she is normally like. I have seen her in the emergency room off and on for several years, and recognized her immediately upon entering the room. 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 There is no facial motor weakness noted. PSYCH: Normal mood, normal affect. SKIN: Warm, Dry, normal turgor, no rashes or lesions noted. Course - Vital Signs Vital signs: Temp Pulse Resp BP Pulse Ox 98.4 F 88 17 147/124 H 93 12/25/18 12:22 12/25/18 12:22 12/25/18 16:01 12/25/18 16:01 12/25/18 16:01 - Laboratory Result Diagrams: 12/25/18 12:29 12/25/18 12:29 Laboratory results interpreted by me: 12/25/18 12/25/18 12/25/18 12:08 12:29 12:29 WBC 41.3 H* RBC 7.02 H Hct 48.0 H MCV 68 L MCH 21.2 L MCHC 31.0 L RDW 22.3 H Seg Neuts % (Manual) 91 H Band Neutrophils % 2 L Lymphocytes % (Manual) 1 L Abs Neuts (Manual) 38.4 H Abs Basophils (Manual) 0.4 H Sodium 134.5 L Chloride 91 L Est GFR (Non-Af Amer) 56 L Glucose 552 H* POC Glucose 501 H* Alkaline Phosphatase 324 H Creatine Kinase < 20 L Urine Glucose (UA) Ur Leukocyte Esterase 12/25/18 12/25/18 16:24 17:09 WBC RBC Hct MCV MCH MCHC RDW Seg Neuts % (Manual) Band Neutrophils % Lymphocytes % (Manual) Abs Neuts (Manual) Abs Basophils (Manual) Sodium Chloride Est GFR (Non-Af Amer) Glucose POC Glucose 516 H* Alkaline Phosphatase Creatine Kinase Urine Glucose (UA) >=500 H Ur Leukocyte Esterase MODERATE H - EKG Interpretation by Me EKG shows normal: Sinus rhythm, Tanner, Intervals, ST-T Waves. abnormal: QRS Complexes - Old anterior [place] Rate: Normal - 87 Rhythm: NSR, APC's When compared to previous EKG there are: No significant change - Consults Dr. Beckett Consulted provider: will come to ER Discharge - Discharge Clinical Impression: Urinary tract infection Qualifiers: Urinary tract infection type: site unspecified Hematuria presence: without hematuria Qualified Code(s): N39.0 - Urinary tract infection, site not specified Altered mental status Qualifiers: Altered mental status type: unspecified Qualified Code(s): R41.82 - Altered mental status, unspecified Hyperglycemia due to type 2 diabetes mellitus Qualifiers: Diabetes mellitus correction insulin use: with correction use Qualified Code(s): E11.65 - Type 2 diabetes mellitus with hyperglycemia; Z79.4 - 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 I personally performed the services described in the documentation, reviewed and edited the documentation which was dictated to the scribe in my presence, and it accurately records my words and actions.
[2018-12-25] MEDS ORDERED: TRAZODONE HCL 50 MG TABLET PO PRN (17:53)
[2018-12-25] MEDS ORDERED: HYDROXYZINE PAMOATE 25 MG CAPSULE PO PRN (17:53)
[2018-12-25] MEDS ORDERED: DEXTROSE 40% GEL 15 GM TUBE PO PRN ×2 (17:55)
[2018-12-25] MEDS ORDERED: DEXTROSE 50%-WATER 25 GM/50 ML DISP.SYRIN IV PRN ×2 (17:55)
[2018-12-25] MEDS ORDERED: GLUCAGON,HUMAN RECOMB 1 MG INJ IM PRN (17:55)
[2018-12-25] MEDS ORDERED: (PENDING PHARMACY ID) (Sertraline Hcl [Zoloft] 25 MG) PO SCH (18:00)
--- NOTE | 2018-12-25 18:14 | PDOC H&P ---
History of Present Illness Admission Date/PCP: SOFI GUERRIER MD Patient complains of: History of falls twice since yesterday. Urinary symptoms. History of Present Illness: ORACIO PEDROZA is a 83 year old female with history of CLL, diabetes mellitus, hypertension, hyperlipidemia, history of multiple strokes, history of pulmonary embolism, history of recurrent UTI, depression, anxiety, congestive heart failure, atrial fibrillation brought to the emergency room for the family members with history of falls twice since yesterday. As per the daughter every time the patient tried to stand up knees are giving away and sliding onto the floor and patient is spending most of her time in the bed for the last 1 month decreased appetite associated with the decreased urinary output and confusion she is also telling me she vomited a couple of times yesterday and today on noticed left-sided weakness decided to brought her to the emergency room for further evaluation. Daughter is the power of engineer exhauster. She said her mom expressed her wishes to be a DNR/DNI. Work-up was done in the emergency room found to have WBC count of more than 40,000 probably secondary to CLL , UTI with WBC count of more than 180 in the urine, blood sugar was more than 500 oxygen was found to be upper 80s on room air she was placed on 4 L oxygen, without oxygen pulse ox are dropping back to less than 88. medical consult was called for admission. Patient in the bed morning unable to give any history. Most of the history obtained from the daughter Leigh who is the power of engineer exhauster. Past Medical History Cardiac Medical History: Reports: Atrial Fibrillation, Congestive Heart Failure, Coronary Artery Disease, Myocardial Infarction - x2, Hyperlipidema, Hypertension, Pulmonary Embolism - Distant history Pulmonary Medical History: Denies: Asthma, Chronic Obstructive Pulmonary Disease (COPD) Neurological Medical History: Denies: Seizures Endocrine Medical History: Reports: Diabetes Mellitus Type 2 Denies: Diabetes Mellitus Type 1, Hyperthyroidism, Hypothyroidism Malignancy Medical History: Reports: Skin Cancer - Excised from her nose., Other - Chronic lymphocytic leukemia 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 Past Surgical History Past Surgical History: Reports: Appendectomy, Cholecystectomy, Hysterectomy, Tonsillectomy, Vascular Surgery, Other - Cardiac loop recorder, bilateral cataract surgery, hemorrhoidectomy Social History Lives with: Family Smoking Status: Former Smoker Frequency of Alcohol Use: None Hx Recreational Drug Use: No Drugs: None Hx Prescription Drug Abuse: No - Advance Directive Resuscitation Status: Do Not Resuscitate Family History Family History: Reviewed & Not Pertinent, CAD, COPD, DM, Hyperlipidemia, Hypertension, Malignancy - Father with lung cancer. Cousin with leukemia. 3 brothers with unknown cancers. Mother also of unknown type of cancer., Other Parental Family History Reviewed: Yes - Family history of heart disease and d iabetes mellitus Children Family History Reviewed: Yes Sibling(s) Family History Reviewed.: Yes Medication/Allergy Home Medications: Aspirin [Aspirin 81 mg Chewable Tablet] 81 mg PO DAILY 12/05/18 Buspirone HCl [Buspar 15 mg Tablet] 15 mg PO Q12 12/05/18 Clopidogrel Bisulfate [Plavix 75 mg Tablet] 75 mg PO DAILY 12/05/18 Docusate Sodium [Stool Softener] 100 mg PO DAILY 12/05/18 Furosemide [Lasix 40 mg Tablet] 40 mg PO DAILY 12/05/18 Hydroxyzine Pamoate [Vistaril 25 mg Capsule] 25 mg PO Q6HP PRN 12/05/18 Metoprolol Tartrate [Lopressor 50 mg Tablet] 50 mg PO Q12 12/05/18 Pantoprazole Sodium [Protonix [address] Tablet] 40 mg PO DAILY 12/05/18 Ranolazine [Ranexa 500 mg Tab.sr] 500 mg PO Q12 12/05/18 Sertraline HCl [Zoloft] 25 mg PO DAILY 12/05/18 Sitagliptin Phosphate [Januvia] 100 mg PO DAILY 12/05/18 Trazodone HCl [Desyrel 50 mg Tablet] 50 mg PO HSP PRN 12/05/18 Amox Tr/Potassium Clavulanate [Augmentin 875-125 Tablet] 1 tab PO BID 6 Days #12 tablet 12/12/18 Nitrofurantoin Macrocrystal [Macrodantin] 100 mg PO BID #14 capsule 12/20/18 Allergies/Adverse Reactions: morphine Allergy (Mild, Verified 08/04/18 16:32) Review of Systems Constitutional: PRESENT: fatigue, weakness. ABSENT: fever(s), headache(s) Eyes: ABSENT: visual disturbances Ears: ABSENT: hearing changes Nose, Mouth, and Throat: ABSENT: sore throat Cardiovascular: PRESENT: edema Respiratory: PRESENT: dyspnea Gastrointestinal: PRESENT: nausea, vomiting Genitourinary: PRESENT: dysuria Neurological: PRESENT: dizziness, frequent falls, weakness Psychiatric: PRESENT: anxiety, depression Physical Exam Vital Signs: Temp Pulse Resp BP Pulse Ox 98.4 F 88 17 147/124 H 93 12/25/18 12:22 12/25/18 12:22 12/25/18 16:01 12/25/18 16:01 12/25/18 16:01 Intake & Output 12/24/18 12/25/18 12/26/18 06:59 06:59 06:59 Weight 89.6 kg General appearance: PRESENT: mild distress, obese Head exam: PRESENT: atraumatic Eye exam: PRESENT: PERRLA Mouth exam: PRESENT: moist, tongue midline Teeth exam: PRESENT: poor dentation Neck exam: ABSENT: carotid bruit, JVD, lymphadenopathy, thyromegaly Respiratory exam: PRESENT: decreased breath sounds Cardiovascular exam: PRESENT: RRR. ABSENT: diastolic murmur, rubs, systolic murmur GI/Abdominal exam: PRESENT: other - Obese abdomen soft nontender no organomegaly Rectal exam: PRESENT: deferred Neurological exam: PRESENT: alert, awake, CN II-XII grossly intact. ABSENT: motor sensory deficit Psychiatric exam: PRESENT: anxious Results Laboratory Results: 12/25/18 12:29 12/25/18 12:29 12/25/18 12/25/18 12/25/18 12:29 12:29 16:24 WBC 41.3 H* RBC 7.02 H Hgb 14.9 Hct 48.0 H MCV 68 L MCH 21.2 L MCHC 31.0 L RDW 22.3 H Plt Count 279 Seg Neutrophils % Not Reportable Lymphocytes % Not Reportable Monocytes % Not Reportable Eosinophils % Not Reportable Basophils % Not Reportable Absolute Neutrophils Not Reportable Absolute Lymphocytes Not Reportable Absolute Monocytes Not Reportable Absolute Eosinophils Not Reportable Absolute Basophils Not Reportable Sodium 134.5 L Potassium 4.7 Chloride 91 L Carbon Dioxide 30 Anion Gap 14 BUN 19 Creatinine 0.96 Est GFR ( Amer) > 60 Est GFR (Non-Af Amer) 56 L Glucose 552 H* Calcium 9.5 Total Bilirubin 1.3 AST 23 ALT 20 Alkaline Phosphatase 324 H Total Protein 7.7 Albumin 3.7 Urine Color YELLOW Urine Appearance CLOUDY Urine pH 6.0 Ur Specific [place] 1.023 Urine Protein NEGATIVE Urine Glucose (UA) >=500 H Urine Ketones NEGATIVE Urine Blood NEGATIVE Urine Nitrite NEGATIVE Ur Leukocyte Esterase MODERATE H Urine WBC (Auto) >182 Urine RBC (Auto) 8 12/25/18 12/25/18 12:29 12:29 Creatine Kinase < 20 L CK-MB (CK-2) 0.29 Troponin I < 0.012 Assessment and Plan - Diagnosis (1) Fall Qualifiers: Encounter type: initial encounter Qualified Code(s): W19.XXXA - Unspecified fall, initial encounter Is this a current diagnosis for this admission?: Yes Plan: Patient is admitted for multiple falls. No obvious injuries. She is going to be placed in the medical floor because patient is DNR/DNI. PT consult OT consult was requested. Aspiration fall seizure precautions are requested. CT head was requested to rule out any injuries. GI prophylaxis DVT prophylaxis provided. (3) Urinary tract infection Qualifiers: Urinary tract infection type: site unspecified Hematuria presence: without hematuria Qualified Code(s): N39.0 - Urinary tract infection, site not specified Is this a current diagnosis for this admission?: Yes Plan: 12/25/2018-patient has history of recurrent UTIs. Plan to do the urine culture blood culture started on IV levofloxacin 500 mg daily. Falls may be secondary to recurrent UTI. (4) Diabetes Qualifiers: Diabetes mellitus type: type 2 Diabetes mellitus terminal superintendent insulin use: unspecified terminal superintendent insulin use status Diabetes mellitus complication status: with unspecified complications Qualified Code(s): E11.8 - Type 2 diabetes mellitus with unspecified complications Is this a current diagnosis for this admission?: No Plan: 12/25/2018-patient has history of type 2 diabetes mellitus. On Januvia at home. Plan to start her on insulin sliding scale insulin at bedtime started on diabetic diet and started on Lantus 10 units twice a day. To check for hemoglobin A1c tomorrow. (5) CAD (coronary artery disease) Qualifiers: Coronary Disease-Associated Artery/Lesion type: [place] artery [place] vs. transplanted heart: [place] heart Associated angina: without angina Qualified Code(s): I25.10 - Atherosclerotic heart disease of [place] coronary artery without angina pectoris Is this a current diagnosis for this admission?: No Plan: 12/25/2018-patient has history of coronary artery disease and heart attacks. No complaints of chest pain at the time of admission. (6) Atrial fibrillation Is this a current diagnosis for this admission?: No Plan: 12/25/2018-patient has history of atrial fibrillation not on anticoagulation. EKG shows sinus rhythm. (7) CLL (chronic lymphocytic leukemia) Is this a current diagnosis for this admission?: No Plan: 12/25/2018-patient has history of CLL. WBC is more than 40,000. Not on any treatment at this point. (8) Chronic diastolic (congestive) heart failure Is this a current diagnosis for this admission?: No Plan: 12/25/2018-patient has history of chronic diastolic heart failure. On examination patient has slight pedal edema. Chest examination no evidence of any pulmonary edema. No chest congestion no crepitations no rales are present. Plan to check a BNP tomorrow. - Time Time Spent with patient: 25-34 minutes Medications reviewed and adjusted accordingly: Yes Anticipated discharge: SNF
--- NOTE | 2018-12-25 18:22 | ADVANCED CARE ---
- Diagnosis (2) Fall Diagnosis Current: Yes (3) UTI (urinary tract infection) Diagnosis Current: Yes (4) Diabetes Diagnosis Current: Yes (5) CAD (coronary artery disease) Diagnosis Current: Yes (6) Atrial fibrillation Diagnosis Current: No (7) CLL (chronic lymphocytic leukemia) Diagnosis Current: Yes (8) Chronic diastolic (congestive) heart failure Diagnosis Current: Yes Resuscitation Status: Do Not Resuscitate Discussion: 12/25/2018-patient's medical condition prognosis discussed with the power of transactional attorney Wood Abraham. He is the power of transactional attorney she understood her mom's poor prognosis and she told me her mom wishes are that she wants to be DNR/DNI. Care Planning Goals: Power of transactional attorney Leigh Muir is a requesting her mom to be placed in long- term care facility. Time Spent: More than 30 minutes
--- NOTE | 2018-12-25 18:34 | RADIOLOGY REPORT (SQ) ---
EXAM DESCRIPTION: CHEST SINGLE VIEW COMPLETED DATE/TIME: 12/25/2018 6:19 pm REASON FOR STUDY: hypoxia COMPARISON: 12/20/2018 EXAM PARAMETERS: NUMBER OF VIEWS: One view. TECHNIQUE: Single frontal radiographic view of the chest acquired. RADIATION DOSE: NA LIMITATIONS: None. FINDINGS: LUNGS AND PLEURA: No opacities, masses or pneumothorax. No pleural effusion. MEDIASTINUM AND HILAR STRUCTURES: No masses. Contour normal. HEART AND VASCULAR STRUCTURES: Heart normal in size. Normal vasculature. BONES: No acute findings. HARDWARE: Loop recorder. OTHER: No other significant finding. IMPRESSION: NO ACUTE RADIOGRAPHIC FINDING IN THE CHEST. TECHNICAL DOCUMENTATION: JOB ID: [id number] [employer]- All Rights Reserved Reading location - IP/workstation name: [email or web address]
--- NOTE | 2018-12-25 18:37 | RADIOLOGY REPORT (SQ) ---
EXAM DESCRIPTION: CT HEAD WITHOUT COMPLETED DATE/TIME: 12/25/2018 6:20 pm REASON FOR STUDY: stroke COMPARISON: 11/27/2018 TECHNIQUE: Axial images acquired through the brain without intravenous contrast. Images reviewed wi th bone, brain and subdural windows. Additional sagittal and coronal reconstructions were generated. Images stored on PACS. All CT scanners at this facility use dose modulation, iterative reconstruction, and/or weight based d osing when appropriate to reduce radiation dose to as low as reasonably achievable (ALARA). [facility]: Dose Right [facility]: CareDose [facility]: Dose Right [facility]: Teradose 4D [facility]: [employer] RADIATION DOSE: CT Rad equipment meets quality standard of care and radiation dose reduction techniq ues were employed. CTDIvol: 53.2 mGy. DLP: 1017 mGy-cm. mGy. LIMITATIONS: None. FINDINGS: VENTRICLES: Normal size and contour. 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 No hemorrhage. No midline shift. No mass. Few s cattered areas of low density in the white matter most likely chronic small vessel ischemic changes. CEREBELLUM: No masses. No hemorrhage. No alteration of density. No evidence for acute infarction. EXTRAAXIAL SPACES: No fluid collections. No masses. ORBITS AND GLOBE: No intra- or extraconal masses. Normal contour of globe without masses. CALVARIUM: No fracture. PARANASAL SINUSES: No fluid or mucosal thickening. SOFT TISSUES: No mass or hematoma. OTHER: No other significant finding. IMPRESSION: Chronic microvascular ischemia with no acute intracranial imaging findings. 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 EVIDENCE OF ACUTE STROKE: NO. COMMENT: Quality ID # [id number]: Final reports with documentation of one or more dose reduction techniques (e.g., Automated exposure control, adjustment of the mA and/or kV according to patient size, use of iterative reconstruction technique) TECHNICAL DOCUMENTATION: JOB ID: [id number] [employer]- All Rights Reserved Reading location - IP/workstation name: [email or web address]
[2018-12-25] MEDS: INSULIN LISPRO 100 UNIT/ML 3 ML VIAL SUBCUT SCH ×2 (19:03→21:42)
[2018-12-25] MEDS: ENOXAPARIN SODIUM INJ 30 MG/0.3 ML DISP.SYRIN SUBCUT SCH (19:04)
[2018-12-25] MEDS: RANOLAZINE 500 MG TAB.SR.12H PO SCH (19:05)
[2018-12-25] MEDS: PANTOPRAZOLE SODIUM 40 MG TABLET.DR PO SCH (19:05)
[2018-12-25] MEDS: SERTRALINE HCL 50 MG TABLET PO SCH (19:05)
[2018-12-25] MEDS: METOPROLOL TARTRATE 50 MG TABLET PO SCH (19:07)
[2018-12-25] MEDS: FAMOTIDINE 20 MG TABLET PO SCH (19:07)
[2018-12-25] MEDS: CLOPIDOGREL BISULFATE 75 MG TABLET PO SCH (19:07)
[2018-12-25] MEDS: ASPIRIN 81 MG TABLET, CHEWABLE PO SCH (19:08)
[2018-12-25] MEDS: BUSPIRONE HCL 10 MG TABLET PO SCH (19:08)
--- NOTE | 2018-12-25 19:33 | EKG REPORT ---
SEVERITY:- ABNORMAL ECG - SINUS RHYTHM ATRIAL PREMATURE COMPLEX PROBABLE INFERIOR INFARCT, OLD ANTERIOR INFARCT, AGE INDETERMINATE : Confirmed by: Bud Medina 25-Dec-2018 19:32:34
[2018-12-25] MEDS ORDERED: INSULIN GLARGINE,HUM.REC.ANLOG 1,000 UNIT/10 ML VIAL (PYX) SUBCUT ONE (21:35)
[2018-12-25] MEDS: LEVOFLOXACIN 500 MG/D5W RTU 500 MG/100 ML RTUPB IV SCH (21:41)
[2018-12-25] MEDS: INSULIN GLARGINE,HUM.REC.ANLOG 1,000 UNIT/10 ML VIAL SUBCUT SCH (21:43)
[2018-12-26] MEDS: BUSPIRONE HCL 10 MG TABLET PO SCH ×2 (05:35→17:01)
[2018-12-26] MEDS: FAMOTIDINE 20 MG TABLET PO SCH ×2 (05:35→17:01)
[2018-12-26] MEDS: METOPROLOL TARTRATE 50 MG TABLET PO SCH ×2 (05:35→17:01)
[2018-12-26] MEDS: NORMAL SALINE 1000 ML 1,000 ML IV PRN ×2 (05:35→13:53)
[2018-12-26] MEDS: RANOLAZINE 500 MG TAB.SR.12H PO SCH ×2 (05:36→17:01)
[2018-12-26] MEDS: INSULIN LISPRO 100 UNIT/ML 3 ML VIAL SUBCUT SCH ×5 (07:00→22:39)
[2018-12-26 08:08] LABS: HEMATOCRIT 50.8 % (36.0-47.0); HEMOGLOBIN 15.5 g/dL (12.0-15.5); MEAN CORPUSCULAR HEMOGLOBIN 20.7 pg (27.0-33.4); MEAN CORPUSCULAR HGB CONC 30.5 g/dL (32.0-36.0); MEAN CORPUSCULAR VOLUME 68 fl (80-97); PLATELET COUNT 279 10^3/uL (150-450); RED CELL DISTRIBUTION WIDTH 22.5 % (11.5-14.0)
[2018-12-26 08:38] LABS: RED BLOOD COUNT 7.49 10^6/uL (3.72-5.28)
[2018-12-26 08:48] LABS: ALANINE AMINOTRANSFERASE 12 U/L (9-52); ALBUMIN 3.6 g/dL (3.5-5.0); ALKALINE PHOSPHATASE 268 U/L (38-126); ANION GAP 13 (5-19); ASPARTATE AMINO TRANSFERASE 22 U/L (14-36); BILIRUBIN,DIRECT 0.5 mg/dL (0.0-0.4); BLOOD UREA NITROGEN 18 mg/dL (7-20); CALCIUM 9.1 mg/dL (8.4-10.2); CARBON DIOXIDE 29 mmol/L (22-30); CHLORIDE 96 mmol/L (98-107); CHOLESTEROL 107.05 mg/dL (0-200); CREATINE KINASE 70 U/L (30-135); GLUCOSE 336 mg/dL (75-110); POTASSIUM 4.9 mmol/L (3.6-5.0); SODIUM 138.4 mmol/L (137-145); TOTAL PROTEIN 7.3 g/dL (6.3-8.2); TRIGLYCERIDES 250 mg/dL (<150)
[2018-12-26 08:51] LABS: ABSOLUTE LYMPHOCYTES# (MANUAL) 1.2 10^3/uL (0.5-4.7); ABSOLUTE MONOCYTES # (MANUAL) 0.8 10^3/uL (0.1-1.4); ABSOLUTE NEUTROPHILS# (MANUAL) 35.4 10^3/uL (1.7-8.2); BAND NEUTROPHILS % (MANUAL) 3 % (3-5); BASOPHILS % (MANUAL) 1 % (0-2); EOSINOPHILS % (MANUAL) 2 % (0-6); LYMPHOCYTES % (MANUAL) 3 % (13-45); MONOCYTES % (MANUAL) 2 % (3-13); SEGMENTED NEUTROPHILS % (MAN) 89 % (42-78); TOTAL CELLS COUNTED 100
[2018-12-26 08:54] LABS: ANISOCYTOSIS 3+; HYPOCHROMASIA SLIGHT; OVALOCYTES SLIGHT; POIKILOCYTOSIS SLIGHT; POLYCHROMASIA 1+; TEAR DROP CELLS SLIGHT; TOXIC VACUOLATION PRESENT
[2018-12-26 08:55] LABS: NT PRO BNP 372 pg/mL (<450); PLATELET COMMENT ADEQUATE; PLATELET LARGE PRESENT; WHITE BLOOD COUNT 38.5 10^3/uL (4.0-10.5)
[2018-12-26 08:58] LABS: DIRECT LDL 38 mg/dL (<100); TROPONIN I < 0.012 ng/mL
[2018-12-26] MEDS: CLOPIDOGREL BISULFATE 75 MG TABLET PO SCH (09:37)
[2018-12-26] MEDS: SERTRALINE HCL 50 MG TABLET PO SCH (09:37)
[2018-12-26] MEDS: INSULIN GLARGINE,HUM.REC.ANLOG 1,000 UNIT/10 ML VIAL SUBCUT SCH ×2 (09:37→22:38)
[2018-12-26] MEDS: PANTOPRAZOLE SODIUM 40 MG TABLET.DR PO SCH (09:37)
[2018-12-26] MEDS: ENOXAPARIN SODIUM INJ 30 MG/0.3 ML DISP.SYRIN SUBCUT SCH (09:37)
[2018-12-26] MEDS: ASPIRIN 81 MG TABLET, CHEWABLE PO SCH (09:37)
--- NOTE | 2018-12-26 14:53 | EKG REPORT ---
SEVERITY:- ABNORMAL ECG - SINUS RHYTHM ATRIAL PREMATURE COMPLEX PROBABLE LEFT ATRIAL ABNORMALITY CONSIDER ANTEROSEPTAL INFARCT : Confirmed by: Bud Medina 26-Dec-2018 14:52:48
[2018-12-26] MEDS: LEVOFLOXACIN 500 MG/D5W RTU 500 MG/100 ML RTUPB IV SCH (17:01)
[2018-12-26] MEDS: ONDANSETRON HCL INJ/PF 4 MG/2 ML SDV IV PRN (22:46)
[2018-12-27] MEDS: NORMAL SALINE 1000 ML 1,000 ML IV PRN ×2 (06:20→16:49)
[2018-12-27] MEDS: METOPROLOL TARTRATE 50 MG TABLET PO SCH ×2 (06:21→17:10)
[2018-12-27] MEDS: BUSPIRONE HCL 10 MG TABLET PO SCH ×2 (06:21→17:09)
[2018-12-27] MEDS: FAMOTIDINE 20 MG TABLET PO SCH ×2 (06:21→17:10)
[2018-12-27] MEDS: RANOLAZINE 500 MG TAB.SR.12H PO SCH ×2 (06:22→17:19)
[2018-12-27] MEDS: INSULIN LISPRO 100 UNIT/ML 3 ML VIAL SUBCUT SCH ×5 (07:36→22:19)
[2018-12-27] MEDS: ASPIRIN 81 MG TABLET, CHEWABLE PO SCH (09:18)
[2018-12-27] MEDS: CLOPIDOGREL BISULFATE 75 MG TABLET PO SCH (09:18)
[2018-12-27] MEDS: PANTOPRAZOLE SODIUM 40 MG TABLET.DR PO SCH (09:18)
[2018-12-27] MEDS: SERTRALINE HCL 50 MG TABLET PO SCH (09:18)
[2018-12-27] MEDS: INSULIN GLARGINE,HUM.REC.ANLOG 1,000 UNIT/10 ML VIAL SUBCUT SCH ×2 (09:19→22:19)
[2018-12-27] MEDS: ENOXAPARIN SODIUM INJ 30 MG/0.3 ML DISP.SYRIN SUBCUT SCH (09:19)
[2018-12-27 11:33] LABS: ANION GAP 9 (5-19); BLOOD UREA NITROGEN 16 mg/dL (7-20); CALCIUM 8.8 mg/dL (8.4-10.2); CARBON DIOXIDE 29 mmol/L (22-30); CHLORIDE 101 mmol/L (98-107); GLUCOSE 399 mg/dL (75-110); SODIUM 138.9 mmol/L (137-145)
[2018-12-27] MEDS: LEVOFLOXACIN 500 MG/D5W RTU 500 MG/100 ML RTUPB IV SCH (17:16)
[2018-12-28] MEDS: FAMOTIDINE 20 MG TABLET PO SCH ×2 (06:06→19:52)
[2018-12-28] MEDS: RANOLAZINE 500 MG TAB.SR.12H PO SCH ×2 (06:06→19:52)
[2018-12-28] MEDS: METOPROLOL TARTRATE 50 MG TABLET PO SCH ×2 (06:06→19:53)
[2018-12-28] MEDS: BUSPIRONE HCL 10 MG TABLET PO SCH ×2 (06:07→19:52)
[2018-12-28] MEDS: NORMAL SALINE 1000 ML 1,000 ML IV PRN (06:11)
--- NOTE | 2018-12-28 06:54 | PDOC PROGRESS REPORT ---
Subjective Progress Note for:: 12/26/18 Subjective:: The patient is complaining of nausea without vomiting and headache. She still feels weak. Urine in the Silva catheter is cloudy but her culture is negative so far. Reason For Visit: URINARY TRACT INFECTION, ALTERED MENTAL STATUS, Physical Exam Vital Signs: Temp Pulse Resp BP Pulse Ox 98 F 78 14 111/48 L 99 12/26/18 08:44 12/26/18 08:44 12/26/18 08:44 12/26/18 08:44 12/26/18 08:44 Intake & Output 12/25/18 12/26/18 12/27/18 06:59 06:59 06:59 Intake Total 1350 1462 Output Total 1100 400 Balance 250 1062 Weight 89.6 kg 89.6 kg General appearance: PRESENT: cooperative, mild distress, obese, well-developed Head exam: PRESENT: atraumatic, normocephalic Eye exam: PRESENT: conjunctiva pink Respiratory exam: PRESENT: clear to auscultation carmen, symmetrical, unlabored. ABSENT: accessory muscle use, rales, rhonchi, wheezes Cardiovascular exam: PRESENT: RRR, +S1, +S2 GI/Abdominal exam: PRESENT: normal bowel sounds, soft, tenderness - Especially right side. ABSENT: guarding Rectal exam: PRESENT: deferred Extremities exam: ABSENT: pedal edema Musculoskeletal exam: PRESENT: other - Bruise on right knee Neurological exam: PRESENT: alert, awake, oriented to person, oriented to place, oriented to situation, CN II-XII grossly intact Psychiatric exam: PRESENT: flat affect. ABSENT: agitated, anxious Focused psych exam: ABSENT: delusional, restlessness Results Laboratory Results: 12/26/18 07:39 12/26/18 07:39 12/26/18 12/26/18 12/26/18 07:39 07:39 07:39 WBC 38.5 H* RBC 7.49 H Hgb 15.5 Hct 50.8 H MCV 68 L MCH 20.7 L MCHC 30.5 L RDW 22.5 H Plt Count 279 Seg Neutrophils % Not Reportable Lymphocytes % Not Reportable Monocytes % Not Reportable Eosinophils % Not Reportable Basophils % Not Reportable Absolute Neutrophils Not Reportable Absolute Lymphocytes Not Reportable Absolute Monocytes Not Reportable Absolute Eosinophils Not Reportable Absolute Basophils Not Reportable Sodium 138.4 Potassium 4.9 Chloride 96 L Carbon Dioxide 29 Anion Gap 13 BUN 18 Creatinine 0.85 Est GFR ( Amer) > 60 Est GFR (Non-Af Amer) > 60 Glucose 336 H Calcium 9.1 Magnesium 1.9 Total Bilirubin 1.0 AST 22 ALT 12 Alkaline Phosphatase 268 H Total Protein 7.3 Albumin 3.6 Triglycerides 250 H Cholesterol 107.05 LDL Cholesterol Direct 38 VLDL Cholesterol 50.0 H HDL Cholesterol 25 L TSH 2.42 12/25/18 12/25/18 12/25/18 12:29 12:29 19:10 Creatine Kinase < 20 L 36 CK-MB (CK-2) 0.29 Troponin I < 0.012 NT-Pro-B Natriuret Pep 12/25/18 12/26/18 12/26/18 19:10 00:45 00:45 Creatine Kinase < 20 L CK-MB (CK-2) Troponin I < 0.012 < 0.012 NT-Pro-B Natriuret Pep 12/26/18 12/26/18 07:39 07:39 Creatine Kinase 70 CK-MB (CK-2) Troponin I < 0.012 NT-Pro-B Natriuret Pep 372 Impressions: Chest X-Ray 12/25/18 00:00 IMPRESSION: NO ACUTE RADIOGRAPHIC FINDING IN THE CHEST. Head CT 12/25/18 00:00 IMPRESSION: Chronic microvascular ischemia with no acute intracranial imaging findings. 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 EVIDENCE OF ACUTE STROKE: NO. Assessment and Plan - Diagnosis (1) Fall Qualifiers: Encounter type: initial encounter Qualified Code(s): W19.XXXA - Unspecified fall, initial encounter Is this a current diagnosis for this admission?: Yes Plan: The patient has had multiple falls. She is working with physical and occupational therapy. Both support need for [facility] discharge. Because the patient has had multiple falls this is not unreasonable. (2) Urinary tract infection Qualifiers: Urinary tract infection type: site unspecified Hematuria presence: without hematuria Qualified Code(s): N39.0 - Urinary tract infection, site not specified Is this a current diagnosis for this admission?: Yes Plan: The urine appears to be improved on antibiotic therapy. Cultures are still pending. 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 Possibly due to infection. The patient is on Lantus and sliding scale coverage. Will adjust based on fingersticks. (4) Coronary artery disease Qualifiers: Coronary Disease-Associated Artery/Lesion type: [place] artery Is this a current diagnosis for this admission?: Yes Plan: Patient has been asymptomatic on her current regimen including Plavix, aspirin and metoprolol. We will continue the same and monitor for any signs of acute coronary issues. Serial troponins were negative. (5) Atrial fibrillation Qualifiers: Atrial fibrillation type: paroxysmal Qualified Code(s): I48.0 - Paroxysmal atrial fibrillation Is this a current diagnosis for this admission?: Yes Plan: The patient appears to be in sinus rhythm by telemetry. We will continue telemetry monitoring. Because of her multiple falls she is not on anticoagulation therapy. (6) CLL (chronic lymphocytic leukemia) Is this a current diagnosis for this admission?: Yes Plan: White blood cell count is elevated so it is difficult to tell if there is a reaction to her infection or not. She is not on active treatment at this time. We will continue to monitor white blood cell count. (7) Chronic diastolic (congestive) heart failure Is this a current diagnosis for this admission?: Yes Plan: She does not appear to be symptomatic at this time. We are monitoring her intake and output. Diuretic therapy will be administered if needed. (8) Depression Qualifiers: Depression Type: unspecified Qualified Code(s): F32.9 - Major depressive disorder, single episode, unspecified Is this a current diagnosis for this admission?: Yes Plan: Patient does tend to have a flat affect. She appears stable on her Zoloft and trazodone. She is also on BuSpar which we will continue. - Time Time Spent with patient: 15-24 minutes Medications reviewed and adjusted accordingly: Yes Anticipated discharge: SNF
--- NOTE | 2018-12-28 08:20 | PDOC PROGRESS REPORT ---
Subjective Progress Note for:: 12/27/18 Subjective:: Appears slightly better today but still experiencing some nausea. She does admit that when sitting upright this is less of an issue. Reason For Visit: URINARY TRACT INFECTION, ALTERED MENTAL STATUS, Physical Exam Vital Signs: Temp Pulse Resp BP Pulse Ox 98.4 F 78 18 151/69 H 99 12/27/18 09:00 12/27/18 09:00 12/27/18 09:00 12/27/18 09:00 12/27/18 09:00 Intake & Output 12/26/18 12/27/18 12/28/18 06:59 06:59 06:59 Intake Total 1350 3042 Output Total 1100 2820 Balance 250 222 Weight 89.6 kg 92.8 kg General appearance: PRESENT: no acute distress, cooperative, well-developed Head exam: PRESENT: atraumatic, normocephalic Respiratory exam: PRESENT: clear to auscultation carmen, symmetrical, unlabored. ABSENT: rales, rhonchi, wheezes Cardiovascular exam: PRESENT: RRR, +S1, +S2 GI/Abdominal exam: PRESENT: distended - Protuberant abdomen, normal bowel sounds, soft. ABSENT: tenderness Rectal exam: PRESENT: deferred Gentrourinary exam: PRESENT: indwelling catheter - Urine appears to be clearing. Extremities exam: ABSENT: pedal edema Neurological exam: PRESENT: alert, awake, oriented to person, oriented to place, oriented to situation, CN II-XII grossly intact Psychiatric exam: PRESENT: flat affect. ABSENT: agitated, anxious Focused psych exam: ABSENT: delusional, restlessness Skin exam: PRESENT: other - Still with abrasion on right knee. Appears to be improving. Results Laboratory Results: 12/26/18 07:39 12/26/18 07:39 12/25/18 12/25/18 12/25/18 12:29 12:29 19:10 Creatine Kinase < 20 L 36 CK-MB (CK-2) 0.29 Troponin I < 0.012 NT-Pro-B Natriuret Pep 12/25/18 12/26/18 12/26/18 19:10 00:45 00:45 Creatine Kinase < 20 L CK-MB (CK-2) Troponin I < 0.012 < 0.012 NT-Pro-B Natriuret Pep 12/26/18 12/26/18 07:39 07:39 Creatine Kinase 70 CK-MB (CK-2) Troponin I < 0.012 NT-Pro-B Natriuret Pep 372 Impressions: Chest X-Ray 12/25/18 00:00 IMPRESSION: NO ACUTE RADIOGRAPHIC FINDING IN THE CHEST. Head CT 12/25/18 00:00 IMPRESSION: Chronic microvascular ischemia with no acute intracranial imaging findings. 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 EVIDENCE OF ACUTE STROKE: NO. Assessment and Plan - Diagnosis (1) Fall Qualifiers: Encounter type: initial encounter Qualified Code(s): W19.XXXA - Unspecified fall, initial encounter Is this a current diagnosis for this admission?: Yes Plan: The patient is still at high risk for falls. She has been admitted multiple times recently. In this case despite her ambulating 40 feet and utilizing some assistive devices to work with her lower extremities with regard to ADLs, the safest plan is short-term rehab. She would like to go to [facility] and I believe they have a bed. She is certainly stable enough to transfer today if a bed is available. (2) UTI (urinary tract infection) Qualifiers: Urinary tract infection type: acute cystitis Is this a current diagnosis for this admission?: Yes Plan: Pure yeast identified and with clinical picture I felt prudent to treat the patient. (3) Diabetes Qualifiers: Diabetes mellitus type: type 2 Diabetes mellitus long-term insulin use: unspecified long-term insulin use status Diabetes mellitus complication status: with unspecified complications Qualified Code(s): E11.8 - Type 2 diabetes mellitus with unspecified complications Is this a current diagnosis for this admission?: Yes Plan: He did increase the aggressiveness of the sliding scale. Her numbers are still all above 200. I will increase her Lantus. (4) CAD (coronary artery disease) Qualifiers: Coronary Disease-Associated Artery/Lesion type: [place] artery [place] vs. transplanted heart: [place] heart Associated angina: without angina Qualified Code(s): I25.10 - Atherosclerotic heart disease of [place] coronary artery without angina pectoris Is this a current diagnosis for this admission?: No Plan: Continues to not have any acute coronary symptoms. Continue same treatment regimen. (5) Atrial fibrillation Qualifiers: Atrial fibrillation type: paroxysmal Qualified Code(s): I48.0 - Paroxysmal atrial fibrillation Is this a current diagnosis for this admission?: Yes Plan: Remains in sinus rhythm. Continue metoprolol. Coagulation due to multiple falls. (6) CLL (chronic lymphocytic leukemia) Is this a current diagnosis for this admission?: Yes Plan: Despite her white blood cell count being chronically elevated it has decreased somewhat with antibiotic therapy. (7) Chronic diastolic (congestive) heart failure Is this a current diagnosis for this admission?: Yes Plan: Continue to monitor intake and output. She has had a relatively neutral fluid balance to this point. - Time Time Spent with patient: 15-24 minutes Medications reviewed and adjusted accordingly: Yes Anticipated discharge: SNF
[2018-12-28] MEDS: INSULIN LISPRO 100 UNIT/ML 3 ML VIAL SUBCUT SCH ×3 (08:24→16:44)
[2018-12-28] MEDS ORDERED: INSULIN GLARGINE,HUM.REC.ANLOG 1,000 UNIT/10 ML VIAL SUBCUT SCH (10:00)
[2018-12-28] MEDS ORDERED: FLUCONAZOLE 100 MG TABLET PO SCH (10:00)
[2018-12-28] MEDS: ENOXAPARIN SODIUM INJ 30 MG/0.3 ML DISP.SYRIN SUBCUT SCH (10:27)
[2018-12-28] MEDS: ASPIRIN 81 MG TABLET, CHEWABLE PO SCH (10:27)
[2018-12-28] MEDS: SERTRALINE HCL 50 MG TABLET PO SCH (10:27)
[2018-12-28] MEDS: PANTOPRAZOLE SODIUM 40 MG TABLET.DR PO SCH (10:27)
[2018-12-28] MEDS: CLOPIDOGREL BISULFATE 75 MG TABLET PO SCH (10:27)
--- NOTE | 2018-12-28 14:20 | PDOC TRANSFER SUMMARY ---
General - Admit/Disc Date/PCP Admission Date/Primary Care Provider: 12/25/18 18:08 SOFI GUERRIER MD Discharge Date: 12/28/18 - Discharge Diagnosis (1) Fall Is this a current diagnosis for this admission?: Yes Summary: The patient has had multiple falls prior to this admission. She has a small bruise on her right knee. She has been working with physical and occupational therapy. She is making some progress and she will definitely benefit from ongoing therapy at a detention facility in an effort to get her stronger for home. (2) UTI (urinary tract infection) Is this a current diagnosis for this admission?: Yes Summary: Yeast cystitis. The patient had a pure culture of yeast. All things consider ed, this was the only identifiable source of infection and therefore I have opted to treat with fluconazole. (3) Diabetes Is this a current diagnosis for this admission?: Yes Summary: The patient was on Januvia at home. Currently were using Lantus and a sliding scale. Despite this the patient still has elevated sugars. I recently increased her Lantus yesterday. I am hoping that we will slowly get her back to reasonable range. I would adjust the Lantus based on the sliding scale requirements. We have held her Januvia during this admission. I will defer to the attending physician with regard to resuming her Januvia. (4) CAD (coronary artery disease) Is this a current diagnosis for this admission?: Yes Summary: Patient has a history of coronary artery disease. She is maintained on her home medication regimen with the exception of furosemide. I would consider resuming at 20 or 40 mg daily in light of her blood pressure. She has been asymptomatic with regard to acute coronary symptoms. (5) Atrial fibrillation Is this a current diagnosis for this admission?: Yes Summary: She has been in sinus rhythm during her stay. She is not on anticoagulation. This is reasonable especially considering her recent falls. (6) CLL (chronic lymphocytic leukemia) Is this a current diagnosis for this admission?: Yes Summary: History of chronic lymphocytic leukemia with persistent elevated white blood cell count. No active treatment at this time. We have continue to monitor her laboratory studies. (7) Chronic diastolic (congestive) heart failure Is this a current diagnosis for this admission?: Yes Summary: As noted above the patient has had a relatively neutral fluid balance. She is not exhibited marked signs of congestive failure. Consider resuming furosemide either at 20 mg or the full 40 mg dose. - Additional Information Resuscitation Status: Do Not Resuscitate Discharge Diet: Cardiac, Diabetic Discharge Activity: Balance Activity w/Rest Home Medications: Aspirin [Aspirin 81 mg Chewable Tablet] 81 mg PO DAILY 12/05/18 Buspirone HCl [Buspar 15 mg Tablet] 15 mg PO Q12 12/05/18 Clopidogrel Bisulfate [Plavix 75 mg Tablet] 75 mg PO DAILY 12/05/18 Docusate Sodium [Stool Softener] 100 mg PO DAILY 12/05/18 Hydroxyzine Pamoate [Vistaril 25 mg Capsule] 25 mg PO Q6HP PRN 12/05/18 Metoprolol Tartrate [Lopressor 50 mg Tablet] 50 mg PO Q12 12/05/18 Pantoprazole Sodium [Protonix [address] Tablet] 40 mg PO DAILY 12/05/18 Ranolazine [Ranexa 500 mg Tab.sr] 500 mg PO Q12 12/05/18 Sertraline HCl [Zoloft] 25 mg PO DAILY 12/05/18 Trazodone HCl [Desyrel 50 mg Tablet] 50 mg PO HSP PRN 12/05/18 Acetaminophen [Tylenol 325 mg Tablet] 650 mg PO Q4HP PRN tablet 12/28/18 Fluconazole [Diflucan 100 mg Tablet] 100 mg PO DAILY tablet 12/28/18 Furosemide [Lasix 40 mg Tablet] 40 mg PO DAILY #0 12/28/18 Insulin Glargine,Hum.rec.anlog [Lantus Insulin 100 Unit/1 ml 10 ml] 16 unit SUBCUT Q12 unit 12/28/18 Insulin Lispro [Humalog Insulin (Lispro) 100 unit/mL] 0 - 16 unit SUBCUT ACHS unit 12/28/18 Sitagliptin Phosphate [Januvia] 100 mg PO DAILY #0 12/28/18 History of Present Illness Admission Date/PCP: 12/25/18 18:08 SOFI GUERRIER MD Patient complains of: The patient was brought to the emergency room by her f lexi. In addition to multiple falls they have noticed a decline recently. She has remained in bed with decreased activity. History of Present Illness: ORACIO PEDROZA is a 83 year old female with multiple medical comorbidities. The family states that they have noticed a decline over the last month. She has grown weaker. She has been less active and remains in bed most of the time. On presentation to the emergency department she was noted to be markedly hyperglycemic with increased white blood cells in her urine suggestive of infection. She was quite weak. CT scan of her head revealed an old stroke but no acute pathology. She required oxygen for room air hypoxia. Other than her loop recorder chest x-ray was unremarkable. She has chronic lymphocytic leukemia and therefore white blood cell count is always significantly elevated. She was referred to the hospital service for admission. Hospital Course Hospital Course: As noted above the patient had a relatively uneventful hospital course. Urine culture did finally grow purulent yeast and is being treated. Silva catheter is out at this time. Levofloxacin was discontinued as there is no bacteria present. Her sugars have slowly been getting better and we have been increasing her Lantus. Januvia has been on hold. Her Lasix has been on hold but her blood pressure is slightly increased and so I will defer to the attending physician with regard to resuming her furosemide either at 20 mg daily or the previous dose of 40 mg daily. She is still weak. Physical therapy has walked with her and occupational therapy has been working with her as well. She will benefit from short-term detention facility placement with ongoing physical and occupational therapy. She will also need monitoring of her diabetes, blood pressure, intake and output and cardiac status. Physical Exam Vital Signs: Temp Pulse Resp BP Pulse Ox 99.2 F 102 H 16 146/93 H 97 12/28/18 11:29 12/28/18 11:29 12/28/18 11:29 12/28/18 11:29 12/28/18 11:29 Intake & Output 12/27/18 12/28/18 12/29/18 06:59 06:59 06:59 Intake Total 3042 3711 118 Output Total 2820 3800 Balance 222 -89 118 Weight 92.8 kg 94.9 kg General appearance: PRESENT: no acute distress, cooperative, well-developed Head exam: PRESENT: atraumatic, normocephalic Respiratory exam: PRESENT: clear to auscultation carmen, symmetrical, unlabored. ABSENT: accessory muscle use, rales, rhonchi, tachypnea, wheezes Cardiovascular exam: PRESENT: RRR, +S1, +S2 GI/Abdominal exam: PRESENT: normal bowel sounds, soft. ABSENT: distended, tenderness Gentrourinary exam: ABSENT: indwelling catheter Neurological exam: PRESENT: alert, awake, oriented to person, oriented to place, oriented to situation Psychiatric exam: PRESENT: flat affect. ABSENT: agitated, anxious Focused psych exam: ABSENT: delusional, restlessness Skin exam: PRESENT: other - Healing abrasion on right knee Results Laboratory Results: 12/26/18 07:39 12/27/18 10:55 12/25/18 16:24 Catheterized Urine Urine Culture - Final C.albicans/C.dubliniensis 12/25/18 12/25/18 12/25/18 12:29 12:29 19:10 Creatine Kinase < 20 L 36 CK-MB (CK-2) 0.29 Troponin I < 0.012 NT-Pro-B Natriuret Pep 12/25/18 12/26/18 12/26/18 19:10 00:45 00:45 Creatine Kinase < 20 L CK-MB (CK-2) Troponin I < 0.012 < 0.012 NT-Pro-B Natriuret Pep 12/26/18 12/26/18 07:39 07:39 Creatine Kinase 70 CK-MB (CK-2) Troponin I < 0.012 NT-Pro-B Natriuret Pep 372 Impressions: Chest X-Ray 12/25/18 00:00 IMPRESSION: NO ACUTE RADIOGRAPHIC FINDING IN THE CHEST. Head CT 12/25/18 00:00 IMPRESSION: Chronic microvascular ischemia with no acute intracranial imaging findings. 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 EVIDENCE OF ACUTE STROKE: NO. Transfer Plan - Disposition Transfer Plan: Transfer to [facility] for short-term therapy and medical management. - Time Spent with Patient Time spent with patient: Greater than 30 Minutes Qualifiers - * PATIENT BEING DISCHARGED WITH ANY OF THE FOLLOWING DIAGNOSIS: No Acute Heart Failure Is this a Heart Failure Patient?: No Plan Discharge Plan: The patient's chronic diastolic failure is stable. She is asymptomatic at this time. No changes were made to her current medical regimen. Time Spent: Greater than 30 Minutes
[2018-12-28 15:56] VITALS: BP 152/87
[2018-12-28] MEDS: ONDANSETRON HCL INJ/PF 4 MG/2 ML SDV IV PRN (19:23)
== END 2018-12-28 20:00 | DRG 758 ==
LOC: ER 12:03 → EH 18:08 → 4N 20:40
PROVIDERS: ADMIT Internal Medicine; ATTEND Internal Medicine
DX: B37.41 Candidal cystitis and urethritis (principal); C91.10 Chronic lymphocytic leukemia of B-cell type not having achieved remission; I50.32 Chronic diastolic (congestive) heart failure; Z66 Do not resuscitate; E11.65 Type 2 diabetes mellitus with hyperglycemia; I11.0 Hypertensive heart disease with heart failure; E78.5 Hyperlipidemia, unspecified; I25.10 Atherosclerotic heart disease of native coronary artery without angina pectoris; M19.90 Unspecified osteoarthritis, unspecified site; K21.9 Gastro-esophageal reflux disease without esophagitis; Z79.02 Long term (current) use of antithrombotics/antiplatelets; I48.0 Paroxysmal atrial fibrillation; F32.9 Major depressive disorder, single episode, unspecified; S80.211A Abrasion, right knee, initial encounter; W19.XXXA Unspecified fall, initial encounter; Z91.81 History of falling; Z79.82 Long term (current) use of aspirin; Z79.899 Other long term (current) drug therapy; Z79.4 Long term (current) use of insulin; Z86.73 Personal history of transient ischemic attack (TIA), and cerebral infarction without residual deficits; Z86.14 Personal history of Methicillin resistant Staphylococcus aureus infection; Z90.49 Acquired absence of other specified parts of digestive tract; Z88.6 Allergy status to analgesic agent; Z87.440 Personal history of urinary (tract) infections
CPT/HCPCS: 36415; 51701; 70450; 71045; 80048; 80053; 80061; 81001; 82550; 82553; 82962; 83036; 83735; 83880; 84443; 84484; 85025; 87040; 87086; 93005; 93010; 96365; 99285; J0696; J1650; J1815; J1956; J2405; J3490; J7030

== ENCOUNTER 2019-01-26 14:26 | Emergency (ER) | payer MEDICARE, OTHER ==
--- NOTE | 2019-01-26 16:42 | ER Document Report ---
ED Medical Screen (RME) - General Chief Complaint: Back Pain Stated Complaint: BACK,HEAD,LEG PAIN Time Seen by Provider: 01/26/19 16:28 Primary Care Provider: SOFI GUERRIER MD [Primary Care Provider] - Follow up as needed TRAVEL OUTSIDE OF THE [place] IN LAST 30 DAYS: No - HPI Notes: 01/26/19 16:39 Patient is an 83-year-old female with previous history of failure to thrive, more betes, coronary disease, A. fib, CLL, CHF, hypertension, chronic back and leg pains who presents complaining of having 2 falls over the past couple days at home. Patient is complaining of headache, neck pain, and some mild pain in her pelvis. Patient states that her rug is slippery on the other side of her bed when she is trying to stand which is causing her falls. Patient states that she does have an occasional dizzy episode in does feel generally weak. She is still able to eat and drink without difficulty. She is urinating normally. Patient states that she is able to ambulate with the aid of a Rollator. Denies any fever, changes in vision/speech/mentation/hearing, URI, sore throat, chest pain, palpitations, syncope, cough, shortness of breath, wheeze, dyspnea, abdominal pain, nausea/vomiting/diarrhea, urinary retention, dysuria, hematuria, loss of control of bowel or bladder, numbness/tingling, saddle anesthesia, muscle paralysis/weakness, or rash. I have treated and performed a rapid initial assessment of this patient. A comprehensive ED assessment and evaluation of the patient, analysis of test results and completion of medical decision making process will be conducted by additional ED providers. PHYSICAL EXAMINATION: accompanied by female nurse GENERAL: Well-appearing, well-nourished and in no acute distress. A&Ox3. Answers questions appropriately. HEAD: Atraumatic, normocephalic. Non-tender. No ma sign EYES: Pupils equal round and reactive to light, extraocular movements intact, sclera anicteric, conjunctiva are normal. No raccoon eyes/entrapment ENT: EAC clear b/l. TM's intact b/l without erythema, fluid, or perforation. Nares patent and without discharge. oropharynx clear without exudates. No tonsilar hypertrophy or erythema. Moist mucous membranes. No sinus tenderness. No hemotympanum/CSF discharge. NECK: No rigidity. + mild midline tenderness. LUNGS: Breath sounds clear to auscultation bilaterally and equal. No wheezes ra les or rhonchi. HEART: Regular rate and rhythm without murmurs, rubs, gallops. Musculoskeletal: Ext's b/l: FROM to passive/active. Strength 5+/5. No deficits noted. No bony tenderness of extremities. + mild tenderness pelvis b/l. N/V intact distal to extremities. Back: FROM to passive/active. Strength 5+/5. No vertebral point tenderness, stepoffs, or deformities. No other bony tenderness or ecchymosis. Extremities: No cyanosis, clubbing, or edema b/l. Peripheral pulses 2+. Capillary refill less than 2 seconds. NEUROLOGICAL: NIH 0. GCS 15. Cranial nerves grossly intact. Normal speech. Normal sensory, motor exams. Reflexes 2+ b/l. ANIVAL's negative. Pronator drift negative. Heel/yap, finger/nose wnl. PSYCH: Normal mood, normal affect. SKIN: Warm, Dry, normal turgor, no rashes or lesions noted. - Related Data Allergies/Adverse Reactions: morphine Allergy (Mild, Verified 01/26/19 14:30) Past Medical History - Social History Chew tobacco use (# tins/day): No Frequency of alcohol use: None Drug Abuse: None - Past Medical History Cardiac Medical History: Reports: Hx Atrial Fibrillation, Hx Congestive Heart Failure, Hx Coronary Artery Disease, Hx Heart Attack - x2, Hx Hypercholesterolemia, Hx Hypertension, Hx Pulmonary Embolism - Distant history Pulmonary Medical History: Denies: Hx Asthma, Hx COPD Neurological Medical History: Denies: Hx Seizures Endocrine Medical History: Reports: Hx Diabetes Mellitus Type 1, Hx Diabetes Mellitus Type 2. Denies: Hx Hyperthyroidism, Hx Hypothyroidism Renal/ Medical History: Denies: Hx Peritoneal Dialysis Malignancy Medical History: Reports: Hx Skin Cancer - Excised from her nose. GI Medical History: Reports: Hx Gastroesophageal Reflux Disease. Denies: Hx Cirrhosis, Hx Hepatitis Musculoskeltal Medical History: Reports Hx Arthritis, Denies Hx Gout, Reports Hx Musculoskeletal Deformity Skin Medical History: Denies Hx Eczema, Denies Hx Psoriasis Psychiatric Medical History: Reports: Hx Anxiety, Hx Depression Infectious Medical History: Reports: Hx MRSA - remote history. Denies: Hx Hepatitis Past Surgical History: Reports: Hx Abdominal Surgery, Hx Appendectomy, Hx Cholecystectomy, Hx Hysterectomy, Hx Tonsillectomy, Hx Vascular Surgery, Other - Cardiac loop recorder, bilateral cataract surgery, hemorrhoidectomy - Immunizations Hx Diphtheria, Pertussis, Tetanus Vaccination: No History of Influenza Vaccine for 05/2017 - 10/2017 Season: Yes Influenza Administration Date for 05/2017 - 10/2017 Season: 05/29/17 Doctor's Discharge - Discharge Referrals: SOFI GUERRIER MD [Primary Care Provider] - Follow up as needed
--- NOTE | 2019-01-26 17:07 | RADIOLOGY REPORT (SQ) ---
EXAM DESCRIPTION: PELVIS AP COMPLETED DATE/TIME: 01/26/2019 4:55 pm REASON FOR STUDY: pain s/p fall COMPARISON: 07/05/2016 AND 07/06/2015 NUMBER OF VIEWS: One view TECHNIQUE: AP Pelvis LIMITATIONS: None. FINDINGS: MINERALIZATION: Normal. HIPS: No acute fracture or dislocation. No worrisome bone lesions. PELVIS AND SACRUM: No acute fracture or dislocation. No worrisome bone lesions. Note is again made o f sclerosis and irregularity of the left sacroiliac joint with sclerosis of the right sacroiliac join t. PUBIS AND ISCHIUM: No acute fracture. LOWER LUMBAR SPINE: No significant findings as visualized. SOFT TISSUES: No findings. OTHER: No other significant finding. IMPRESSION: Stable radiographic appearance of the pelvis. No evidence of acute osseous injury. COMMENT: Pelvic fractures are often occult on plain radiographs. If strong clinical suspicion for f racture, recommend CT or MR. TECHNICAL DOCUMENTATION: JOB ID: [id number] [employer]- All Rights Reserved Reading location - IP/workstation name: [email or web address]
[2019-01-26 17:30] LABS: HEMATOCRIT 50.8 % (36.0-47.0); HEMOGLOBIN 15.3 g/dL (12.0-15.5); MEAN CORPUSCULAR HGB CONC 30.1 g/dL (32.0-36.0); MEAN CORPUSCULAR VOLUME 66 fl (80-97)
--- NOTE | 2019-01-26 17:30 | RADIOLOGY REPORT (SQ) ---
EXAM DESCRIPTION: CT CERVICAL SPINE WITHOUT COMPLETED DATE/TIME: 01/26/2019 5:03 pm REASON FOR STUDY: pain s/p fall COMPARISON: 08/09/2018 TECHNIQUE: Axial images acquired through the cervical spine without intravenous contrast. Images re viewed with lung, soft tissue and bone windows. Reconstructed coronal and sagittal MPR images review ed. Images stored on PACS. All CT scanners at this facility use dose modulation, iterative reconstruction, and/or weight based d osing when appropriate to reduce radiation dose to as low as reasonably achievable (ALARA). [facility]: Dose Right [facility]: CareDose [facility]: Dose Right [facility]: Teradose 4D [facility]: Smart [employer] RADIATION DOSE: CT Rad equipment meets quality standard of care and radiation dose reduction techniq ues were employed. CTDIvol: 20.1 mGy. DLP: 393 mGy-cm. mGy. LIMITATIONS: None. FINDINGS: ALIGNMENT: Anatomic. MINERALIZATION: Normal. VERTEBRAL BODIES: No fractures or dislocation. DISCS: Multilevel disc space narrowing with osteophytes. FACETS, LATERAL MASSES, POSTERIOR ELEMENTS: Facet arthropathy. No fractures. No dislocation. No ac eagle findings. HARDWARE: None in the spine. VISUALIZED RIBS: No fractures. LUNG APICES AND SOFT TISSUES: No significant or acute findings. OTHER: No other significant finding. IMPRESSION: CHRONIC DEGENERATIVE CHANGES. NO ACUTE FINDINGS. TECHNICAL DOCUMENTATION: JOB ID: [id number] Quality ID # [id number]: Final reports with documentation of one or more dose reduction techniques (e.g., Au tomated exposure control, adjustment of the mA and/or kV according to patient size, use of iterative reconstruction technique) 2010 [employer]- All Rights Reserved Reading location - IP/workstation name: [email or web address]
[2019-01-26 17:31] LABS: APPEARANCE,URINE CLOUDY; BILIRUBIN,URINE NEGATIVE (NEGATIVE); COLOR,URINE AMBER; GLUCOSE, URINE 50 mg/dL (NEGATIVE); KETONES,URINE NEGATIVE (NEGATIVE); LEUKOCYTE ESTERASE,URINE LARGE (NEGATIVE); NITRITE,URINE NEGATIVE (NEGATIVE); PROTEIN,URINE NEGATIVE (NEGATIVE); URINE SPECIFIC GRAVITY 1.013; UROBILINOGEN,URINE NEGATIVE mg/dL (<2.0)
[2019-01-26 17:37] LABS: INTERNATIONAL RATION (INR) 1.14; PROTHROMBIN TIME 15.2 SEC (11.4-15.4)
[2019-01-26 17:38] LABS: PARTIAL THROMBOPLASTIN TIME 43.3 SEC (23.5-35.8)
[2019-01-26 17:51] LABS: ALANINE AMINOTRANSFERASE 11 U/L (9-52); ALBUMIN 4.2 g/dL (3.5-5.0); ALKALINE PHOSPHATASE 239 U/L (38-126); ANION GAP 10 (5-19); ASPARTATE AMINO TRANSFERASE 20 U/L (14-36); BILIRUBIN,DIRECT 0.4 mg/dL (0.0-0.4); BILIRUBIN,TOTAL 1.1 mg/dL (0.2-1.3); BLOOD UREA NITROGEN 24 mg/dL (7-20); CARBON DIOXIDE 30 mmol/L (22-30); CHLORIDE 102 mmol/L (98-107); GLUCOSE 265 mg/dL (75-110); POTASSIUM 4.9 mmol/L (3.6-5.0); SODIUM 142.2 mmol/L (137-145); TOTAL PROTEIN 8.3 g/dL (6.3-8.2)
[2019-01-26 17:59] LABS: PLATELET COUNT 528 10^3/uL (150-450)
[2019-01-26 18:01] LABS: RED BLOOD COUNT 7.65 10^6/uL (3.72-5.28)
[2019-01-26 18:04] LABS: WHITE BLOOD COUNT 39.5 10^3/uL (4.0-10.5)
[2019-01-26 18:08] LABS: ABSOLUTE LYMPHOCYTES# (MANUAL) 2.8 10^3/uL (0.5-4.7); ABSOLUTE MONOCYTES # (MANUAL) 0.4 10^3/uL (0.1-1.4); ABSOLUTE NEUTROPHILS# (MANUAL) 35.6 10^3/uL (1.7-8.2); BASOPHILS % (MANUAL) 1 % (0-2); EOSINOPHILS % (MANUAL) 1 % (0-6); LYMPHOCYTES % (MANUAL) 7 % (13-45); MONOCYTES % (MANUAL) 1 % (3-13); SEGMENTED NEUTROPHILS % (MAN) 77 % (42-78); TOTAL CELLS COUNTED 100
[2019-01-26 18:13] LABS: PLATELET COMMENT INCREASED; PLATELET GIANT PRESENT; PLATELET LARGE PRESENT
[2019-01-26 18:15] LABS: ANISOCYTOSIS 2+; POIKILOCYTOSIS SLIGHT; TEAR DROP CELLS SLIGHT
[2019-01-26 18:16] LABS: TARGET CELLS SLIGHT
[2019-01-26 18:18] LABS: BAND NEUTROPHILS % (MANUAL) 13 % (3-5)
--- NOTE | 2019-01-26 19:11 | RADIOLOGY REPORT (SQ) ---
EXAM DESCRIPTION: CT HEAD WITHOUT COMPLETED DATE/TIME: 01/26/2019 5:03 pm REASON FOR STUDY: pain s/p fall COMPARISON: 12/25/2018 TECHNIQUE: Axial images acquired through the brain without intravenous contrast. Images reviewed wi th bone, brain and subdural windows. Additional sagittal and coronal reconstructions were generated. Images stored on PACS. All CT scanners at this facility use dose modulation, iterative reconstruction, and/or weight based d osing when appropriate to reduce radiation dose to as low as reasonably achievable (ALARA). [facility]: Dose Right [facility]: CareDose [facility]: Dose Right [facility]: Teradose 4D [facility]: Smart [employer] RADIATION DOSE: CT Rad equipment meets quality standard of care and radiation dose reduction techniq ues were employed. CTDIvol: 53.2 mGy. DLP: 991 mGy-cm. mGy. LIMITATIONS: None. FINDINGS: VENTRICLES: Normal size and configuration. CEREBRUM: No masses. No hemorrhage. No midline shift. Focal encephalomalacia involving the bilater al parietal lobes (right greater than left), unchanged. Additional areas of low density in the white matter most likely due to chronic micro-vascular ischemic change. No evidence for acute infarction. CEREBELLUM: No masses. No hemorrhage. No alteration of density. No evidence for acute infarction. EXTRAAXIAL SPACES: Mild age-related involutional change. No fluid collections. No masses. ORBITS AND GLOBE: No intra- or extraconal masses. Normal contour of globe without masses. CALVARIUM: No fracture. PARANASAL SINUSES: No fluid or mucosal thickening. SOFT TISSUES: No mass or hematoma. OTHER: No other significant finding. IMPRESSION: Stable CT appearance of the brain demonstrating bilateral parietal encephalomalacia on a background of chronic microvascular ischemic changes. No evidence of calvarial injury or intracrani al hemorrhage. EVIDENCE OF ACUTE STROKE: NO. TECHNICAL DOCUMENTATION: JOB ID: [id number] Quality ID # [id number]: Final reports with documentation of one or more dose reduction techniques (e.g., Au tomated exposure control, adjustment of the mA and/or kV according to patient size, use of iterative reconstruction technique) 2010 [employer]- All Rights Reserved Reading location - IP/workstation name: [email or web address]
[2019-01-26] MEDS ORDERED: CEPHALEXIN 500 MG CAPSULE PO ONE (20:50)
[2019-01-26] MEDS ORDERED: NITROFURANTOIN MONOHYD/M-CRYST 100 MG CAPSULE PO ONE (20:51)
--- NOTE | 2019-01-26 20:57 | ER Document Report ---
ED General - General Chief Complaint: Back Pain Stated Complaint: BACK,HEAD,LEG PAIN Time Seen by Provider: 01/26/19 16:28 Primary Care Provider: SOFI GUERRIER MD [Primary Care Provider] - Follow up in 3-5 days Notes: Patient is an 83-year-old female with previous history of failure to thrive, diabetes, coronary disease, A. fib, CLL, CHF, hypertension, chronic back and leg pains who presents complaining of having 2 falls over the past couple days at home. Patient is complaining of headache, neck pain, and some mild pain in her pelvis. Pain is a throbbing, moderate intensity, aching, constant discomfort. Nothing improves or worsens the pain. Patient states that her rug is slippery on the other side of her bed when she is trying to stand which is causing her falls. Patient states that she does have an occasional dizzy episode in does feel generally weak. She is still able to eat and drink without difficulty. She is urinating normally. Patient states that she is able to ambulate with the aid of a Rollator. TRAVEL OUTSIDE OF THE [place] IN LAST 30 DAYS: No - Related Data Allergies/Adverse Reactions: morphine Allergy (Mild, Verified 01/26/19 18:37) Penicillins Allergy (Verified 01/26/19 18:37) Past Medical History - General Information source: Patient - Social History Smoking Status: Never Smoker Chew tobacco use (# tins/day): No Frequency of alcohol use: None Drug Abuse: None Lives with: Family Family History: Reviewed & Not Pertinent, CAD, COPD, DM, Hyperlipidemia, Hypertension, Malignancy - Father with lung cancer. Cousin with leukemia. 3 brothers with unknown cancers. Mother also of unknown type of cancer., Other Patient has suicidal ideation: No Patient has homicidal ideation: No - Past Medical History Cardiac Medical History: Reports: Hx Atrial Fibrillation, Hx Congestive Heart Failure, Hx Coronary Artery Disease, Hx Heart Attack - x2, Hx Hypercholesterolemia, Hx Hypertension, Hx Pulmonary Embolism - Distant history Pulmonary Medical History: Denies: Hx Asthma, Hx COPD Neurological Medical History: Denies: Hx Seizures Endocrine Medical History: Reports: Hx Diabetes Mellitus Type 1, Hx Diabetes M ellitus Type 2. Denies: Hx Hyperthyroidism, Hx Hypothyroidism Renal/ Medical History: Denies: Hx Peritoneal Dialysis Malignancy Medical History: Reports: Hx Skin Cancer - Excised from her nose. GI Medical History: Reports: Hx Gastroesophageal Reflux Disease. Denies: Hx Cirrhosis, Hx Hepatitis Musculoskeletal Medical History: Reports Hx Arthritis, Denies Hx Gout, Reports Hx Musculoskeletal Deformity Skin Medical History: Denies Hx Eczema, Denies Hx Psoriasis Psychiatric Medical History: Reports: Hx Anxiety, Hx Depression Infectious Medical History: Reports: Hx MRSA - remote history. Denies: Hx Hepatitis Past Surgical History: Reports: Hx Abdominal Surgery, Hx Appendectomy, Hx Cholecystectomy, Hx Hysterectomy, Hx Tonsillectomy, Hx Vascular Surgery, Other - Cardiac loop recorder, bilateral cataract surgery, hemorrhoidectomy - Immunizations Hx Diphtheria, Pertussis, Tetanus Vaccination: No Hx Pneumococcal Vaccination: 04/29/13 Review of Systems - Review of Systems Notes: Constitutional: Negative for fever. HENT: Negative for sore throat. Eyes: Negative for visual changes. Cardiovascular: Negative for chest pain. Respiratory: Negative for shortness of breath. Gastrointestinal: Negative for abdominal pain, vomiting or diarrhea. Genitourinary: Negative for dysuria. Musculoskeletal: Positive for chronic low back pain and chronic bilateral lower extremity pain Skin: Negative for rash. Neurological: Positive for head pain 10 point ROS negative except as marked above and in HPI. Physical Exam - Vital signs Vitals: Temp Pulse Resp BP Pulse Ox 98.0 F 88 18 146/64 H 99 01/26/19 18:36 01/26/19 18:36 01/26/19 18:36 01/26/19 18:36 01/26/19 18:36 Interpretation: Hypertensive Notes: PHYSICAL EXAMINATION: GENERAL: Well-appearing, well-nourished and in no acute distress. HEAD: Atraumatic, normocephalic. EYES: Pupils equal round and reactive to light, extraocular movements intact, sclera anicteric, conjunctiva are normal. ENT: nares patent, oropharynx clear without exudates. Moist mucous membranes. NECK: Normal range of motion, supple without lymphadenopathy LUNGS: Breath sounds clear to auscultation bilaterally and equal. No wheezes rales or rhonchi. HEART: Regular rate and rhythm without murmurs ABDOMEN: Soft, nontender, normoactive bowel sounds. No guarding, no rebound. No masses appreciated. EXTREMITIES: Normal range of motion, no pitting or edema. No cyanosis. NEUROLOGICAL: Face symmetric. Tongue protrudes midline. Extraocular motions intact. Pupils are 2 mm and equally reactive. Normal speech. 5 out of 5 strength in both the distal and proximal upper and lower extremities bilaterally. Sensation is grossly intact throughout. PSYCH: Normal mood, normal affect. SKIN: Warm, Dry, normal turgor, no rashes or lesions noted. Course - Re-evaluation Re-evalutation: 01/26/19 20:54 Presentation of a well appearing elderly patient in no acute distress, vitals within normal limits after a mechanical fall. Patient denies a syncopal episode as the cause for today's fall. No focal neurologic deficits on exam, no evidence of basilar skull fracture on exam without evidence of hemotympanum, raccoon eyes, or periauricular hematoma. No papilledema. Patient is not on anticoagulation. GCS is 15. No loss of consciousness. No episodes of vomiting. However, based on patient's age a CT of the head has been obtained which is negative for any acute intracranial bleed. Likewise, patient was unable to be clinically cleared due to age by [place] cervical spine criteria. A CT of the cervical spine was also obtained and likewise is negative for any acute fracture. No indication for further imaging of the cervical spine. Patient has no focal deformities or limited range of motion in any joint space. Chest and abdominal exam are benign without any focal tenderness, shortness of breath, or bruising over the chest or abdominal wall. Patient has no flank tenderness. Labs notable for chronic leukocytosis unchanged secondary to patient's underlying CLL. Patient's labs also demonstrate findings consistent with a urinary tract infection possibly pyelonephritis given white blood cell clumps. Urine culture has been sent and based on sensitivities from previous UTI patient has been started on nitrofurantoin although given lack of kidney penetration for this drug cephalexin has also been added for additional coverage. The patient does feel very comfortable discharge home states that she has a preference for discharge home. She states that she has been able to ambulate today without dif ficulties. At this time will discharge with return precautions and follow-up recommendations. Verbal discharge instructions given a the bedside and opportunity for questions given. Medication warnings reviewed. Patient is in agreement with this plan and has verbalized understanding of return precautions and the need for primary care follow-up in the next 24-72 hours. - Vital Signs Vital signs: Temp Pulse Resp BP Pulse Ox 98.0 F 88 18 146/64 H 99 01/26/19 18:36 01/26/19 18:36 01/26/19 18:36 01/26/19 18:36 01/26/19 18:36 - Laboratory Result Diagrams: 01/26/19 17:15 01/26/19 17:15 Laboratory results interpreted by me: 01/26/19 01/26/19 01/26/19 17:15 17:15 17:15 WBC 39.5 H* RBC 7.65 H Hct 50.8 H MCV 66 L MCH 20.0 L MCHC 30.1 L RDW 22.0 H Plt Count 528 H Band Neutrophils % 13 H Lymphocytes % (Manual) 7 L Monocytes % (Manual) 1 L Abs Neuts (Manual) 35.6 H Abs Basophils (Manual) 0.4 H APTT 43.3 H BUN 24 H Est GFR ( Amer) 55 L Est GFR (Non-Af Amer) 46 L Glucose 265 H Alkaline Phosphatase 239 H Total Protein 8.3 H Urine Glucose (UA) Urine Blood Ur Leukocyte Esterase 01/26/19 17:15 WBC RBC Hct MCV MCH MCHC RDW Plt Count Band Neutrophils % Lymphocytes % (Manual) Monocytes % (Manual) Abs Neuts (Manual) Abs Basophils (Manual) APTT BUN Est GFR ( Amer) Est GFR (Non-Af Amer) Glucose Alkaline Phosphatase Total Protein Urine Glucose (UA) 50 H Urine Blood SMALL H Ur Leukocyte Esterase LARGE H - Diagnostic Test Radiology reviewed: Image reviewed, Reports reviewed Radiology results interpreted by me: 01/26/19 20:55 CT head: No acute intracranial bleed or mass Discharge - Discharge Clinical Impression: Falls Qualifiers: Encounter type: initial encounter Qualified Code(s): W19.XXXA - Unspecified fall, initial encounter Head trauma Qualifiers: Encounter type: initial encounter Qualified Code(s): S09.90XA - Unspecified injury of head, initial encounter Urinary tract infection Qualifiers: Urinary tract infection type: acute cystitis Hematuria presence: without hematuria Qualified Code(s): N30.00 - Acute cystitis without hematuria Condition: Stable Disposition: HOME, SELF-CARE Additional Instructions: Your urine shows findings consistent with a urinary tract infection. Please take all the antibiotics as directed even if your symptoms have improved. Return to emergency room if you develop fever >101F, persistent vomiting, become lethargic, have severe pain in your sides, or any other symptoms that are concerning to you. You have been seen in the Emergency Department (ED) today following a fall. Your workup today did not reveal any injuries that require you to stay in the hospital. You can expect, though, to be stiff and sore for the next several days. You can take Tylenol 1000 mg every 6 hours as needed for pain. You can apply a hot pack or electric heating pad to the sore areas. You can also use topical "Aspercreme with lidocaine" to sore areas as needed. Please follow up with your primary care doctor as soon as possible regarding today's ED visit and your recent fall. Call your doctor or return to the ED if you develop a sudden or severe headache, confusion, slurred speech, facial droop, weakness or numbness in any arm or leg, extreme fatigue, vomiting more than two times, severe abdominal pain, or other symptoms that concern you. Prescriptions: Cephalexin Monohydrate [Keflex 500 mg Capsule] 500 mg PO Q6H 7 Days capsule Nitrofurantoin/Nitrofuran Mac [Macrobid 100 mg Capsule] 1 tab PO BID #14 capsule Referrals: SOFI GUERRIER MD [Primary Care Provider] - Follow up in 3-5 days
[2019-01-27 04:50] VITALS: BP 126/50
== END 2019-01-26 21:55 | disposition home or self-care (01) ==
LOC: ER 14:26
DX: S09.90XA Unspecified injury of head, initial encounter (principal); M54.2 Cervicalgia; R51 Headache; W01.0XXA Fall on same level from slipping, tripping and stumbling without subsequent striking against object, initial encounter; Y92.003 Bedroom of unspecified non-institutional (private) residence as the place of occurrence of the external cause; N30.00 Acute cystitis without hematuria; C91.10 Chronic lymphocytic leukemia of B-cell type not having achieved remission; R10.2 Pelvic and perineal pain; R42 Dizziness and giddiness; R53.1 Weakness; M54.5 Low back pain; M79.604 Pain in right leg; M79.605 Pain in left leg; G89.29 Other chronic pain; E11.9 Type 2 diabetes mellitus without complications; I25.10 Atherosclerotic heart disease of native coronary artery without angina pectoris; I10 Essential (primary) hypertension; Z88.5 Allergy status to narcotic agent; Z88.0 Allergy status to penicillin
CPT/HCPCS: 99284; 36415; 87086; 83735; 85025; 85610; 85730; 80053; 81001; 72170; 70450; 72125; A9270 ×2; J8499

== ENCOUNTER → 2019-03-23 | Outpatient (CLI) | payer MEDICARE, OTHER ==
[2019-03-23 11:00] LABS: HEMATOCRIT 48.9 % (36.0-47.0); HEMOGLOBIN 14.8 g/dL (12.0-15.5); MEAN CORPUSCULAR HEMOGLOBIN 19.5 pg (27.0-33.4); MEAN CORPUSCULAR HGB CONC 30.2 g/dL (32.0-36.0); MEAN CORPUSCULAR VOLUME 65 fl (80-97); PLATELET COUNT 386 10^3/uL (150-450); RED BLOOD COUNT 7.58 10^6/uL (3.72-5.28); RED CELL DISTRIBUTION WIDTH 22.9 % (11.5-14.0)
[2019-03-23 11:19] LABS: ALANINE AMINOTRANSFERASE 15 U/L (9-52); ALBUMIN 3.9 g/dL (3.5-5.0); ALKALINE PHOSPHATASE 231 U/L (38-126); ANION GAP 11 (5-19); ASPARTATE AMINO TRANSFERASE 27 U/L (14-36); BILIRUBIN,DIRECT 0.4 mg/dL (0.0-0.4); BILIRUBIN,TOTAL 1.1 mg/dL (0.2-1.3); BLOOD UREA NITROGEN 24 mg/dL (7-20); CARBON DIOXIDE 25 mmol/L (22-30); CHLORIDE 104 mmol/L (98-107); GLUCOSE 204 mg/dL (75-110); TOTAL PROTEIN 7.8 g/dL (6.3-8.2); TRIGLYCERIDES 231 mg/dL (<150)
[2019-03-23 11:24] LABS: POTASSIUM 4.9 mmol/L (3.6-5.0); VLDL CHOLESTEROL 46.2 mg/dL (10-31)
[2019-03-23 11:32] LABS: DIRECT LDL 45 mg/dL (<100)
[2019-03-23 11:43] LABS: ABSOLUTE LYMPHOCYTES# (MANUAL) 3.3 10^3/uL (0.5-4.7); ABSOLUTE MONOCYTES # (MANUAL) 3.3 10^3/uL (0.1-1.4); ANISOCYTOSIS 3+; BASOPHILS % (MANUAL) 1 % (0-2); EOSINOPHILS % (MANUAL) 1 % (0-6); LYMPHOCYTES % (MANUAL) 6 % (13-45); MONOCYTES % (MANUAL) 6 % (3-13); PLATELET COMMENT ADEQUATE; SEGMENTED NEUTROPHILS % (MAN) 86 % (42-78); TOTAL CELLS COUNTED 100
[2019-03-23 11:44] LABS: PLATELET LARGE PRESENT; TOXIC VACUOLATION PRESENT
[2019-03-23 11:45] LABS: OVALOCYTES 1+; POLYCHROMASIA 1+
[2019-03-23 14:14] LABS: WHITE BLOOD COUNT 54.2 10^3/uL (4.0-10.5)
[2019-03-24 11:37] LABS: CREATININE URINE 56.8 mg/dL (Not Estab.); MICROALBUMIN URINE 74.5 ug/mL (Not Estab.)
== END ==
LOC: OD 09:29
PROVIDERS: ATTEND Family Medicine Geriatric Medicine
DX: I25.10 Atherosclerotic heart disease of native coronary artery without angina pectoris (principal); E11.9 Type 2 diabetes mellitus without complications; I10 Essential (primary) hypertension; E78.5 Hyperlipidemia, unspecified; Z79.899 Other long term (current) drug therapy
CPT/HCPCS: 36415; 80053; 80061; 82043; 82570; 83036; 85025

== ENCOUNTER 2019-03-24 01:03 | Emergency (ER) | payer MEDICARE ==
[2019-03-24 02:56] LABS: HEMOGLOBIN 13.7 g/dL (12.0-15.5); MEAN CORPUSCULAR HEMOGLOBIN 19.6 pg (27.0-33.4); MEAN CORPUSCULAR HGB CONC 30.4 g/dL (32.0-36.0); MEAN CORPUSCULAR VOLUME 65 fl (80-97); PLATELET COUNT 391 10^3/uL (150-450); RED BLOOD COUNT 6.98 10^6/uL (3.72-5.28); RED CELL DISTRIBUTION WIDTH 22.2 % (11.5-14.0)
[2019-03-24 03:09] LABS: ALANINE AMINOTRANSFERASE 14 U/L (9-52); ALBUMIN 3.6 g/dL (3.5-5.0); ALKALINE PHOSPHATASE 195 U/L (38-126); ANION GAP 11 (5-19); ASPARTATE AMINO TRANSFERASE 23 U/L (14-36); BILIRUBIN,DIRECT 0.3 mg/dL (0.0-0.4); BILIRUBIN,TOTAL 0.7 mg/dL (0.2-1.3); BLOOD UREA NITROGEN 34 mg/dL (7-20); CALCIUM 8.8 mg/dL (8.4-10.2); CARBON DIOXIDE 24 mmol/L (22-30); CHLORIDE 108 mmol/L (98-107); GLUCOSE 87 mg/dL (75-110); POTASSIUM 4.8 mmol/L (3.6-5.0); TOTAL PROTEIN 7.3 g/dL (6.3-8.2)
[2019-03-24 03:26] LABS: ABSOLUTE LYMPHOCYTES# (MANUAL) 2.9 10^3/uL (0.5-4.7); ABSOLUTE MONOCYTES # (MANUAL) 1.5 10^3/uL (0.1-1.4); BAND NEUTROPHILS % (MANUAL) 1 % (3-5); BASOPHILS % (MANUAL) 0 % (0-2); EOSINOPHILS % (MANUAL) 1 % (0-6); LYMPHOCYTES % (MANUAL) 4 % (13-45); MONOCYTES % (MANUAL) 3 % (3-13); SEGMENTED NEUTROPHILS % (MAN) 89 % (42-78); TOTAL CELLS COUNTED 100
[2019-03-24 03:27] LABS: ANISOCYTOSIS 3+; PLATELET COMMENT ADEQUATE; PLATELET LARGE PRESENT; POLYCHROMASIA SLIGHT; TOXIC VACUOLATION PRESENT
[2019-03-24 03:41] LABS: WHITE BLOOD COUNT 48.9 10^3/uL (4.0-10.5)
[2019-03-24 04:06] LABS: INTERNATIONAL RATION (INR) 1.27; PROTHROMBIN TIME 15.9 SEC (11.4-15.4)
[2019-03-24 04:07] LABS: PARTIAL THROMBOPLASTIN TIME 41.1 SEC (23.5-35.8)
[2019-03-24 04:25] LABS: APPEARANCE,URINE CLOUDY; BILIRUBIN,URINE NEGATIVE (NEGATIVE); CALCIUM OXALATE CRYSTALS,URINE MODERATE /HPF; COLOR,URINE YELLOW; GLUCOSE, URINE NEGATIVE (NEGATIVE); KETONES,URINE NEGATIVE (NEGATIVE); LEUKOCYTE ESTERASE,URINE LARGE (NEGATIVE); NITRITE,URINE NEGATIVE (NEGATIVE); PROTEIN,URINE NEGATIVE (NEGATIVE); URINE SPECIFIC GRAVITY 1.013; UROBILINOGEN,URINE NEGATIVE mg/dL (<2.0)
[2019-03-24 04:29] LABS: CREATINE KINASE MB 1.21 ng/mL (<4.55); TROPONIN I 0.022 ng/mL
--- NOTE | 2019-03-24 04:57 | RADIOLOGY REPORT (SQ) ---
CLINICAL HISTORY: fatigue, nausea COMPARISON: December 16 2018. TECHNIQUE: XR CHEST 2 VIEWS 03/24/2019 3:49 AM CDT FINDINGS: Cardiac silhouette is normal in size. Lungs are clear without consolidation, atelectasis, mass or edema. There is no pleural effusion. There is no pneumothorax. There are no acute osseous findings. IMPRESSION: Clear lungs.
[2019-03-24] MEDS ORDERED: SULFAMETHOXAZOLE/TRIMETHOPRIM 800-160 MG TABLET PO ONE (06:56)
--- NOTE | 2019-03-24 07:07 | ER Document Report ---
Entered by GLEN ALVAREZ SCRIBE 03/24/19 0338 Acting as scribe for:DWAYNE SHAIKH DO ED General - General Chief Complaint: Abnormal Lab Results Stated Complaint: ABNORMAL LABS Time Seen by Provider: 03/24/19 03:35 Primary Care Provider: SOFI KAMARA MD [Primary Care Provider] - Follow up as needed Information source: Patient, [facility] Records Notes: Patient is an 83-year-old female who presents to the emergency department today with complaints of an elevated white blood cell count on outpatient labs. Patient states her primary care physician, Dr. Kamara, called her and told her that her white blood cell count was 10 times higher than it is ever been and she needed to come in to the emergency department to be evaluated. Upon review of [facility] records, there is mention of the patient having CLL. Patient was asked about this mention of CLL however she denies this saying she was seen by hematology/oncology, Dr. Mercer, who told her that she did not have CLL and he was unsure why her white blood cell count was always elevated. Patient states she has been feeling generally unwell recently which she further describes as shortness of breath, headaches, body aches, low-grade fevers, diaphoresis, diarrhea, and nausea. Patient denies any vomiting, abdominal pain, or chest pain. TRAVEL OUTSIDE OF THE [place] IN LAST 30 DAYS: No - Related Data Allergies/Adverse Reactions: morphine Allergy (Mild, Verified 01/26/19 18:37) Penicillins Allergy (Verified 01/26/19 18:37) Past Medical History - General Information source: Patient, [facility] Records - Social History Smoking Status: Never Smoker Cigarette use (# per day): No Chew tobacco use (# tins/day): No Frequency of alcohol use: None Drug Abuse: None Lives with: Family Family History: Reviewed & Not Pertinent, CAD, COPD, DM, Hyperlipidemia, Hypertension, Malignancy - Father with lung cancer. Cousin with leukemia. 3 brothers with unknown cancers. Mother also of unknown type of cancer., Other - Past Medical History Cardiac Medical History: Reports: Hx Atrial Fibrillation, Hx Congestive Heart Failure, Hx Coronary Artery Disease, Hx Heart Attack - x2, Hx Hypercholesterolemia, Hx Hypertension, Hx Pulmonary Embolism - Distant history Endocrine Medical History: Reports: Hx Diabetes Mellitus Type 2 Malignancy Medical History: Reports: Hx Skin Cancer - Excised from her nose GI Medical History: Reports: Hx Gastroesophageal Reflux Disease Musculoskeletal Medical History: Reports Hx Arthritis, Reports Hx Musculoskeletal Deformity Psychiatric Medical History: Reports: Hx Anxiety, Hx Depression Infectious Medical History: Reports: Hx MRSA - remote history Past Surgical History: Reports: Hx Abdominal Surgery, Hx Appendectomy, Hx Cholecystectomy, Hx Hysterectomy, Hx Tonsillectomy, Hx Vascular Surgery, Other - Cardiac loop recorder, bilateral cataract surgery, hemorrhoidectomy - Immunizations Hx Diphtheria, Pertussis, Tetanus Vaccination: No Hx Pneumococcal Vaccination: 04/29/13 Review of Systems - Review of Systems Constitutional: See HPI, Chills, Diaphoresis, Fever, Malaise, Other - elevated WBC on outpatient labs EENT: No symptoms reported Cardiovascular: denies: Chest pain Respiratory: See HPI, Short of breath Gastrointestinal: See HPI, Diarrhea, Nausea. denies: Abdominal pain, Vomiting Genitourinary: No symptoms reported Female Genitourinary: No symptoms reported Musculoskeletal: See HPI, Muscle pain Skin: No symptoms reported Hematologic/Lymphatic: No symptoms reported Neurological/Psychological: See HPI, Headaches -: Yes All other systems reviewed and negative Physical Exam - Vital signs Vitals: Temp Pulse Resp BP Pulse Ox 98.2 F 93 18 133/58 H 94 03/24/19 01:10 03/24/19 01:10 03/24/19 01:10 03/24/19 01:10 03/24/19 01:10 - Notes Notes: PHYSICAL EXAM GENERAL: Alert, interacts well. No acute distress. Obese. HEAD: Normocephalic, atraumatic. EYES: Pupils equal, round, and reactive to light. Extraocular movements intact. ENT: Oral mucosa moist, tongue midline. NECK: Full range of motion. Supple. Trachea midline. LUNGS: Clear to auscultation bilaterally, no wheezes, rales, or rhonchi. No respiratory distress. HEART: Regular rate and rhythm. No murmurs, gallops, or rubs. ABDOMEN: Soft, non-tender. Non-distended. Bowel sounds present in all 4 quadrants. No guarding, rigidity, or rebound. EXTREMITIES: Moves all 4 extremities spontaneously. No edema, radial and dorsalis pedis pulses 2/4 bilaterally. No cyanosis. NEUROLOGICAL: Alert and oriented x3. Normal speech. PSYCH: Normal affect, normal mood. SKIN: Warm, dry, normal turgor. No rashes or lesions noted. Course - Re-evaluation Re-evalutation: 03/24/19 06:53 CBC shows marked leukocytosis of 49.8, earlier yesterday was 54.2, when I review her labs from the past several years she has had markedly elevated white blood cell counts at least back into 2016 and they have been as high as 75.3 in the past. Patient has had bone marrow biopsies that have shown no evidence of myeloproliferative disease. I did discuss this elevated white blood cell count with Dr. Mercer who agrees that there is no need to react to it acutely as it is not significantly outside of her normal. Patient does have a slight bump in her creatinine to 1.35, cardiac enzymes negative, urinalysis shows large leukocyte esterase and only 16 epithelial cells, urine culture has been sent. Chest x-ray shows no acute process. Patient will be treated with antibiotics for her urinary tract infection and follow-up with her primary care physician as an outpatient for her chronically elevated white blood cell count. - Vital Signs Vital signs: Temp Pulse Resp BP Pulse Ox 98.2 F 93 18 133/58 H 94 03/24/19 01:10 03/24/19 01:10 03/24/19 01:10 03/24/19 01:10 03/24/19 01:10 - Laboratory Result Diagrams: 03/24/19 02:35 03/24/19 02:35 Laboratory results interpreted by me: 03/24/19 03/24/19 03/24/19 02:35 02:35 02:35 WBC 48.9 H* RBC 6.98 H MCV 65 L MCH 19.6 L MCHC 30.4 L RDW 22.2 H Seg Neuts % (Manual) 89 H Band Neutrophils % 1 L Lymphocytes % (Manual) 4 L Abs Neuts (Manual) 44.0 H Abs Monocytes (Manual) 1.5 H PT APTT Chloride 108 H BUN 34 H Creatinine 1.35 H Est GFR ( Amer) 45 L Est GFR (Non-Af Amer) 37 L Alkaline Phosphatase 195 H Creatine Kinase < 20 L Urine Blood Ur Leukocyte Esterase 03/24/19 03/24/19 02:35 04:11 WBC RBC MCV MCH MCHC RDW Seg Neuts % (Manual) Band Neutrophils % Lymphocytes % (Manual) Abs Neuts (Manual) Abs Monocytes (Manual) PT 15.9 H APTT 41.1 H Chloride BUN Creatinine Est GFR ( Amer) Est GFR (Non-Af Amer) Alkaline Phosphatase Creatine Kinase Urine Blood SMALL H Ur Leukocyte Esterase LARGE H - EKG Interpretation by Me Additional EKG results interpreted by me: 03/24/19 06:54 EKG shows sinus rhythm rate of 87, left axis deviation, borderline prolonged QT interval, no ST segment elevations or depressions, no T wave inversions per my interpretation. Discharge - Discharge Clinical Impression: UTI (urinary tract infection) Qualifiers: Urinary tract infection type: acute cystitis Hematuria presence: without hematuria Qualified Code(s): N30.00 - Acute cystitis without hematuria Elevated white blood cell count Qualifiers: Leukocytosis type: unspecified Qualified Code(s): D72.829 - Elevated white blood cell count, unspecified Condition: Stable Disposition: HOME, SELF-CARE Additional Instructions: Today your white blood cell count was elevated. Looking back your white blood cell count has been this elevated in the past. There is no significant change from the past year. You do have a urinary tract infection which may be contributing to your fever. I have started you on antibiotics to treat this and sent her urine for culture. I have discussed her elevated white blood cell count with Dr. Mercer, the inseam trimmer. He agrees that your chronic elevation today is nothing to be acutely concerned about and you can continue to follow with Dr. Kamara as an outpatient. Prescriptions: Sulfamethoxazole/Trimethoprim [Bactrim Ds Tablet] 1 each PO BID #10 tablet Referrals: SOFI KAMARA MD [Primary Care Provider] - Follow up as needed I personally performed the services described in the documentation, reviewed and edited the documentation which was dictated to the scribe in my presence, and it accurately records my words and actions.
[2019-03-24 07:47] VITALS: BP 156/76
--- NOTE | 2019-03-24 23:26 | EKG REPORT ---
SEVERITY:- BORDERLINE ECG - SINUS RHYTHM PROBABLE LEFT ATRIAL ABNORMALITY BORDERLINE LEFT AXIS DEVIATION BORDERLINE PROLONGED QT INTERVAL CONSIDER ANTERIOR INFARCT OLD : Confirmed by: Bud Medina 24-Mar-2019 23:25:21
== END 2019-03-24 07:47 | disposition home or self-care (01) ==
LOC: ER 01:03
DX: N30.00 Acute cystitis without hematuria (principal); D72.829 Elevated white blood cell count, unspecified; I50.9 Heart failure, unspecified; I25.10 Atherosclerotic heart disease of native coronary artery without angina pectoris; I25.2 Old myocardial infarction; I11.0 Hypertensive heart disease with heart failure; E11.9 Type 2 diabetes mellitus without complications
CPT/HCPCS: 93005; 99283; 36415; 87040; 87086; 82553; 82550; 85025; 85610; 85730; 80053; 81001; 84484; 71046; 93010; A9270

== ENCOUNTER 2019-04-06 15:21 | Emergency (ER) | payer MEDICARE ==
[2019-04-06] MEDS ORDERED: ACETAMINOPHEN 325 MG TABLET PO ONE (15:59)
--- NOTE | 2019-04-06 16:02 | ER Document Report ---
ED Medical Screen (RME) - General Chief Complaint: Fall Stated Complaint: WRIST/FOOT PAIN Time Seen by Provider: 04/06/19 15:57 Primary Care Provider: SOFI GUERRIER MD [Primary Care Provider] - Follow up as needed Mode of Arrival: Wheelchair Information source: Patient Notes: 84-year-old female presented to ED for complaint of fall on Tuesday. She is on Plavix. She has a history of diabetes and multiple other chronic ailments. She fell landing on her right wrist hand ankle. She states she did hit her head and her neck. She is complaining of pain in her head and her neck. Her home health nurse is with her. She states that they called 911 when she fell but when the ambulance got there she told me she did not want to get in the truck so she did not come and get checked out. She states that the daughter has been putting some salve on the areas. The home health nurse stated that when she is saw the bruising and swelling to the wrist hand and ankle and foot she brought her into the emergency room. Patient is alert oriented respirations regular and unlabored answering questions appropriately. She states she would like some Tylenol for the discomfort. I have greeted and performed a rapid initial assessment of this patient. A comprehensive ED assessment and evaluation of the patient, analysis of test results and completion of medical decision making process will be conducted by an additional ED providers. Dictation of this chart was performed using voice recognition software; therefore, there may be some unintended grammatical errors. TRAVEL OUTSIDE OF THE [place] IN LAST 30 DAYS: No - Related Data Allergies/Adverse Reactions: morphine Allergy (Mild, Verified 04/06/19 15:24) Penicillins Allergy (Verified 04/06/19 15:24) Past Medical History - Social History Chew tobacco use (# tins/day): No Frequency of alcohol use: None Drug Abuse: None - Past Medical History Cardiac Medical History: Reports: Hx Atrial Fibrillation, Hx Congestive Heart Failure, Hx Coronary Artery Disease, Hx Heart Attack - x2, Hx Hypercholesterolemia, Hx Hypertension, Hx Pulmonary Embolism - Distant history Pulmonary Medical History: Denies: Hx Asthma, Hx COPD Neurological Medical History: Denies: Hx Seizures Endocrine Medical History: Reports: Hx Diabetes Mellitus Type 1, Hx Diabetes Mellitus Type 2. Denies: Hx Hyperthyroidism, Hx Hypothyroidism Renal/ Medical History: Denies: Hx Peritoneal Dialysis Malignancy Medical History: Reports: Hx Skin Cancer - Excised from her nose GI Medical History: Reports: Hx Gastroesophageal Reflux Disease. Denies: Hx Cirrhosis, Hx Hepatitis Musculoskeltal Medical History: Reports Hx Arthritis, Denies Hx Gout, Reports Hx Musculoskeletal Deformity Skin Medical History: Denies Hx Eczema, Denies Hx Psoriasis Psychiatric Medical History: Reports: Hx Anxiety, Hx Depression Infectious Medical History: Reports: Hx MRSA - remote history. Denies: Hx Hepatitis Past Surgical History: Reports: Hx Abdominal Surgery, Hx Appendectomy, Hx Cholecystectomy, Hx Hysterectomy, Hx Tonsillectomy, Hx Vascular Surgery, Other - Cardiac loop recorder, bilateral cataract surgery, hemorrhoidectomy - Immunizations Hx Diphtheria, Pertussis, Tetanus Vaccination: No History of Influenza Vaccine for 05/2017 - 10/2017 Season: Yes Influenza Administration Date for 05/2017 - 10/2017 Season: 05/29/17 Physical Exam - Vital signs Vitals: Temp Pulse Resp BP Pulse Ox 98.1 F 101 H 16 112/47 L 92 04/06/19 15:22 04/06/19 15:22 04/06/19 15:22 04/06/19 15:22 04/06/19 15:22 Course - Vital Signs Vital signs: Temp Pulse Resp BP Pulse Ox 98.1 F 101 H 16 112/47 L 92 04/06/19 15:22 04/06/19 15:22 04/06/19 15:22 04/06/19 15:22 04/06/19 15:22 Doctor's Discharge - Discharge Referrals: SOFI GUERRIER MD [Primary Care Provider] - Follow up as needed
--- NOTE | 2019-04-06 16:36 | RADIOLOGY REPORT (SQ) ---
EXAM DESCRIPTION: CT HEAD WITHOUT COMPLETED DATE/TIME: 04/06/2019 4:18 pm REASON FOR STUDY: fall pain head and neck COMPARISON: 01/26/2019 TECHNIQUE: Axial images acquired through the brain without intravenous contrast. Images reviewed wi th bone, brain and subdural windows. Additional sagittal and coronal reconstructions were generated. Images stored on PACS. All CT scanners at this facility use dose modulation, iterative reconstruction, and/or weight based d osing when appropriate to reduce radiation dose to as low as reasonably achievable (ALARA). [facility]: Dose Right [facility]: CareDose [facility]: Dose Right [facility]: Teradose 4D [facility]: [employer] RADIATION DOSE: CT Rad equipment meets quality standard of care and radiation dose reduction techniq ues were employed. CTDIvol: 53.2 mGy. DLP: 1017 mGy-cm.mGy. LIMITATIONS: None. FINDINGS: VENTRICLES: Prominent. CEREBRUM: No evidence of acute large vascular territory infarct. No evidence of intracranial hemorrh age. Stable chronic areas of hypoattenuation within the periventricular and subcortical white matter . Additional stable chronic areas of hypoattenuation within the left basal ganglia and bilateral par ietal lobes, right greater than left, compatible with prior infarcts. No masses or mass effect. CEREBELLUM: No masses. No hemorrhage. No alteration of density. No evidence for acute infarction. EXTRAAXIAL SPACES: Age-related involutional change. No fluid collections. No masses. ORBITS AND GLOBE: No intra- or extraconal masses. Normal contour of globe without masses. Bilateral cataract surgery. CALVARIUM: No fracture. PARANASAL SINUSES: No fluid or mucosal thickening. SOFT TISSUES: No mass or hematoma. OTHER: No other significant finding. IMPRESSION: 1. 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 No evidence of acute intracranial process. EVIDENCE OF ACUTE STROKE: NO. TECHNICAL DOCUMENTATION: JOB ID: [id number] Quality ID # [id number]: Final reports with documentation of one or more dose reduction techniques (e.g., Au tomated exposure control, adjustment of the mA and/or kV according to patient size, use of iterative reconstruction technique) 2010 [employer]- All Rights Reserved Reading location - IP/workstation name: [email or web address]
--- NOTE | 2019-04-06 16:42 | RADIOLOGY REPORT (SQ) ---
EXAM DESCRIPTION: CT CERVICAL SPINE WITHOUT COMPLETED DATE/TIME: 04/06/2019 4:18 pm REASON FOR STUDY: fall pain head and neck COMPARISON: 01/26/2019 TECHNIQUE: Axial images acquired through the cervical spine without intravenous contrast. Images re viewed with lung, soft tissue and bone windows. Reconstructed coronal and sagittal MPR images review ed. Images stored on PACS. All CT scanners at this facility use dose modulation, iterative reconstruction, and/or weight based d osing when appropriate to reduce radiation dose to as low as reasonably achievable (ALARA). [facility]: Dose Right [facility]: CareDose [facility]: Dose Right [facility]: Teradose 4D [facility]: [employer] RADIATION DOSE: CT Rad equipment meets quality standard of care and radiation dose reduction techniq ues were employed. CTDIvol: 20.5 mGy. DLP: 489 mGy-cm. mGy. LIMITATIONS: None. FINDINGS: ALIGNMENT: Straightening of the normal cervical lordosis. MINERALIZATION: Normal. VERTEBRAL BODIES: No fractures or dislocation. DISCS: Multilevel degenerative changes of the cervical spine with disc height loss and disc osteophyt e complex greatest at C4-C7. There are prominent posterior disc osteophyte complexes at C5-6 and C6- 7 with at least moderate canal stenosis. FACETS, LATERAL MASSES, POSTERIOR ELEMENTS: No fractures. No dislocation. No acute findings. HARDWARE: None in the spine. VISUALIZED RIBS: No fractures. LUNG APICES AND SOFT TISSUES: No significant or acute findings. OTHER: Scattered vascular calcifications. IMPRESSION: 1. No evidence of acute bony abnormality of the cervical spine. 2. Degenerative changes with prominent posterior disc osteophyte complexes at C5-6 and C6-7 with at least moderate canal stenosis, stable. TECHNICAL DOCUMENTATION: JOB ID: [id number] Quality ID # [id number]: Final reports with documentation of one or more dose reduction techniques (e.g., Au tomated exposure control, adjustment of the mA and/or kV according to patient size, use of iterative reconstruction technique) 2010 [employer]- All Rights Reserved Reading location - IP/workstation name: [email or web address]
--- NOTE | 2019-04-06 16:56 | RADIOLOGY REPORT (SQ) ---
EXAM DESCRIPTION: WRIST RIGHT 3 VIEWS COMPLETED DATE/TIME: 04/06/2019 4:47 pm REASON FOR STUDY: fall pain swelling bruising COMPARISON: None. NUMBER OF VIEWS: Three views. TECHNIQUE: AP, lateral, and oblique radiographic images acquired of the right wrist. LIMITATIONS: None. FINDINGS: MINERALIZATION: Normal. BONES: No acute fracture or dislocation. No worrisome bone lesions. Normal alignment. SOFT TISSUES: Soft tissue swelling. No foreign body. OTHER: Chondrocalcinosis in the region of the triangular fibrocartilage. Moderate joint space narro wing at the first carpal metacarpal joint. IMPRESSION: 1. Marked soft tissue swelling. Correlation suggested. 2. No acute osseous findings. 3. Degenerative changes at the first carpometacarpal joint. Chondrocalcinosis triangular fibrocarti kwan. TECHNICAL DOCUMENTATION: JOB ID: [id number] [employer]- All Rights Reserved Reading location - IP/workstation name: [email or web address]
--- NOTE | 2019-04-06 17:00 | RADIOLOGY REPORT (SQ) ---
EXAM DESCRIPTION: HAND RIGHT 3 VIEWS COMPLETED DATE/TIME: 04/06/2019 4:47 pm REASON FOR STUDY: fall pain swelling bruising COMPARISON: None. EXAM PARAMETERS: NUMBER OF VIEWS: Three views. TECHNIQUE: AP, lateral and oblique radiographic images acquired of the right hand. LIMITATIONS: None. FINDINGS: MINERALIZATION: Normal. BONES: No acute fracture or dislocation. Marked disc space narrowing and osteophytes at the distal i nterphalangeal joint right fifth digit. Mild interphalangeal joint space of the remaining digits. M ild to moderate degenerative changes at the first carpal metacarpal joint. JOINTS: No effusions. SOFT TISSUES: Moderate severe to marked soft tissue swelling ulnar aspect of the wrist. Calcinosis triangular fibrocartilage. OTHER: No other significant finding. IMPRESSION: 1. No acute osseous findings. 2. Marked soft tissue swelling and ulna aspect right wrist. 3. Marked arthrosis distal interphalangeal joint right fifth digit. Mild to moderate degenerative c hanges first carpometacarpal joint. TECHNICAL DOCUMENTATION: JOB ID: [id number] [employer]- All Rights Reserved Reading location - IP/workstation name: [email or web address]
--- NOTE | 2019-04-06 17:02 | RADIOLOGY REPORT (SQ) ---
EXAM DESCRIPTION: ANKLE RIGHT COMPLETE COMPLETED DATE/TIME: 04/06/2019 4:47 pm REASON FOR STUDY: fall pain swelling bruising COMPARISON: 08/09/2018 NUMBER OF VIEWS: Three views. TECHNIQUE: AP, lateral, and oblique radiographic images acquired of the right ankle. LIMITATIONS: None. FINDINGS: MINERALIZATION: Normal. BONES: No acute fracture or dislocation. Calcaneal spurs. JOINTS: No effusions. SOFT TISSUES: No soft tissue swelling. No foreign body. OTHER: No other significant finding. IMPRESSION: 1. No acute osseous findings. TECHNICAL DOCUMENTATION: JOB ID: [id number] [employer]- All Rights Reserved Reading location - IP/workstation name: [email or web address]
--- NOTE | 2019-04-06 17:04 | RADIOLOGY REPORT (SQ) ---
EXAM DESCRIPTION: FOOT RIGHT COMPLETE COMPLETED DATE/TIME: 04/06/2019 4:47 pm REASON FOR STUDY: fall pain swelling bruising COMPARISON: 09/25/2018 NUMBER OF VIEWS: Three views. TECHNIQUE: AP, lateral and oblique radiographic images acquired of the right foot. LIMITATIONS: None. FINDINGS: MINERALIZATION: Normal. BONES: No acute fracture or dislocation. Calcaneal spurs. JOINTS: No effusions. SOFT TISSUES: No soft tissue swelling. No foreign body. OTHER: No other significant finding. IMPRESSION: 1. No significant interval changes since the prior examination dated 09/25/2018. 2. No acute osseous findings. TECHNICAL DOCUMENTATION: JOB ID: [id number] [employer]- All Rights Reserved Reading location - IP/workstation name: [email or web address]
--- NOTE | 2019-04-06 20:27 | RADIOLOGY REPORT (SQ) ---
EXAM DESCRIPTION: XR HIP 2 OR MORE VIEWS COMPLETED DATE/TME: 04/06/2019 19:36 CLINICAL HISTORY: 84 years, Female, fall pain COMPARISON: 08/09/2018 FINDINGS: Single view of the pelvis and lateral view of the right hip. No acute fracture or dislocation. Normal osseous mineralization. Degenerative change of the spine and sacroiliac joints. Mild bilateral hip joint space narrowing. IMPRESSION: 1. No acute fracture or dislocation. copyright 2010 [employer]- All Rights Reserved
--- NOTE | 2019-04-06 20:32 | ER Document Report ---
ED Fall - General Chief Complaint: Fall Stated Complaint: WRIST/FOOT PAIN Time Seen by Provider: 04/06/19 15:57 Primary Care Provider: SOFI GUERRIER MD [Primary Care Provider] - Follow up as needed Mode of Arrival: Wheelchair Information source: Patient Notes: 84-year-old female patient emergency department via ambulance for evaluation of fall. States that she fell last week. Has continued to have pain in her right wrist, right ankle, right hip, head and back of her neck. Denies any loss of consciousness. States that she just lost her balance. Was seen by a physical therapist today for a little while and was recommended to come to the ER for evaluation. Patient states that she never lost consciousness. No persistent vomiting. No chest pain or abdominal pain. TRAVEL OUTSIDE OF THE [place] IN LAST 30 DAYS: No - HPI Occurred: Last week Where: Home Context: Slipped Associated symptoms: None Location of injury/pain: Other - Right wrist, right ankle, right hip, head and neck. - Related data Allergies/Adverse Reactions: morphine Allergy (Mild, Verified 04/06/19 15:24) Penicillins Allergy (Verified 04/06/19 15:24) Past Medical History - General Information source: Patient - Social History Smoking Status: Former Smoker Chew tobacco use (# tins/day): No Frequency of alcohol use: None Drug Abuse: None Family History: Reviewed & Not Pertinent, CAD, COPD, DM, Hyperlipidemia, Hypertension, Malignancy - Father with lung cancer. Cousin with leukemia. 3 brothers with unknown cancers. Mother also of unknown type of cancer., Other Patient has suicidal ideation: No Patient has homicidal ideation: No - Past Medical History Cardiac Medical History: Reports: Hx Atrial Fibrillation, Hx Congestive Heart Failure, Hx Coronary Artery Disease, Hx Heart Attack - x2, Hx Hypercholesterolemia, Hx Hypertension, Hx Pulmonary Embolism - Distant history Pulmonary Medical History: Denies: Hx Asthma, Hx COPD Neurological Medical History: Denies: Hx Seizures Endocrine Medical History: Reports: Hx Diabetes Mellitus Type 1, Hx Diabetes Mellitus Type 2. Denies: Hx Hyperthyroidism, Hx Hypothyroidism Renal/ Medical History: Denies: Hx Peritoneal Dialysis Malignancy Medical History: Reports: Hx Skin Cancer - Excised from her nose GI Medical History: Reports: Hx Gastroesophageal Reflux Disease. Denies: Hx Cirrhosis, Hx Hepatitis Musculoskeletal Medical History: Reports Hx Arthritis, Denies Hx Gout, Reports Hx Musculoskeletal Deformity Skin Medical History: Denies Hx Eczema, Denies Hx Psoriasis Psychiatric Medical History: Reports: Hx Anxiety, Hx Depression Infectious Medical History: Reports: Hx MRSA - remote history. Denies: Hx Hepatitis Past Surgical History: Reports: Hx Abdominal Surgery, Hx Appendectomy, Hx Cholecystectomy, Hx Hysterectomy, Hx Tonsillectomy, Hx Vascular Surgery, Other - Cardiac loop recorder, bilateral cataract surgery, hemorrhoidectomy - Immunizations Hx Diphtheria, Pertussis, Tetanus Vaccination: No Hx Pneumococcal Vaccination: 04/29/13 Review of Systems - Review of Systems Notes: Constitutional: denies: Chills, Diaphoresis, Fever, Malaise, Weakness EENT: denies: Eye discharge, Blurred vision, Tearing, Double vision, Nose congestion, Nose discharge, Throat swelling, Mouth pain Cardiovascular: denies: Palpitations, Heart racing, Orthopnea, Dyspnea, Chest pain Respiratory: denies: Cough, Hurts to breathe, Wheezing, Shortness of breath Gastrointestinal: denies: Abdominal pain, Diarrhea, Nausea, Vomiting, Black stools, bright red blood in stool Genitourinary: denies: Burning, Dysuria, Discharge, Frequency, Flank pain, Hematuria Musculoskeletal: Planing of pain in the right wrist, right ankle, right hip Hematologic/Lymphatic: denies: Anemia, Easy bleeding, Easy bruising, Blood clots Neurological/Psychological: denies: Confusion, Dementia, Depression, Loss of consciousness Skin: No lesions, no masses, no skin breakdown, no abscesses. Bruising to the right ankle and right wrist. Physical Exam - Vital signs Vitals: Temp Pulse Resp BP Pulse Ox 98.1 F 101 H 16 112/47 L 92 04/06/19 15:22 04/06/19 15:22 04/06/19 15:22 04/06/19 15:22 04/06/19 15:22 Interpretation: Normal - General General appearance: Appears well, Alert - HEENT Head: Normocephalic, Atraumatic Eyes: Normal Pupils: PERRL - Respiratory Respiratory status: No respiratory distress Chest status: Nontender Breath sounds: Normal Chest palpation: Normal - Cardiovascular Rhythm: Regular Heart sounds: Normal auscultation Murmur: No - Abdominal Inspection: Normal Distension: No distension Bowel sounds: Normal Tenderness: Nontender Organomegaly: No organomegaly - Back Back: Normal, Nontender - Extremities General upper extremity: Other - She has a large hematoma noted on the right ulnar styloid process. There appears to be a healing abrasion at that area as well. No active bleeding. Large amount of bruising to the hand. Full range of motion of the fingers. Tendons intact. Strength intact. General lower extremity: Other - Mild tenderness to palpation to the right lateral ankle. No significant tenderness to palpation to the feet bilaterally. Knees normal bilaterally. Right hip demonstrates tenderness to palpation. Does not appear to have an unstable pelvis. No obvious bruising to the hip.. No: Cynthia's sign - Neurological Neuro grossly intact: Yes Cognition: Normal Orientation: AAOx4 Ziyad Coma Scale Eye Opening: Spontaneous Diablo Coma Scale Verbal: Oriented Diablo Coma Scale Motor: Obeys Commands Diablo Coma Scale Total: 15 Speech: Normal Motor strength normal: LUE, RUE, LLE, RLE Sensory: Normal - Psychological Associated symptoms: Normal affect, Normal mood - Skin Skin Temperature: Warm Skin Moisture: Dry Skin Color: Other - Bruising to the right wrist. Abrasion to the right wrist. Course - Re-evaluation Re-evalutation: 04/06/19 20:30 Ankle X-Ray 04/06/19 15:57 IMPRESSION: 1. No acute osseous findings. Cervical Spine CT 04/06/19 15:57 IMPRESSION: 1. No evidence of acute bony abnormality of the cervical spine. 2. Degenerative changes with prominent posterior disc osteophyte complexes at C5-6 and C6-7 with at least moderate canal stenosis, stable. Foot X-Ray 04/06/19 15:57 IMPRESSION: 1. No significant interval changes since the prior examination dated 09/25/2018. 2. No acute osseous findings. Hand X-Ray 04/06/19 15:57 IMPRESSION: 1. No acute osseous findings. 2. Marked soft tissue swelling and ulna aspect right wrist. 3. Marked arthrosis distal interphalangeal joint right fifth digit. Mild to moderate degenerative changes first carpometacarpal joint. Head CT 04/06/19 15:57 IMPRESSION: 1. 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 No evidence of acute intracranial process. EVIDENCE OF ACUTE STROKE: NO. Wrist X-Ray 04/06/19 15:57 IMPRESSION: 1. Marked soft tissue swelling. Correlation suggested. 2. No acute osseous findings. 3. Degenerative changes at the first carpometacarpal joint. Chondrocalcinosis triangular fibrocartilage. Hip/Pelvis X-Ray 04/06/19 19:36 IMPRESSION: 1. No acute fracture or dislocation. copyright 2011 [employer]- All Rights Reserved 04/06/19 20:31 All x-rays were negative. A compression dressing was placed on the right wrist. Patient informed of results. At this time stable for discharge. - Vital Signs Vital signs: Temp Pulse Resp BP Pulse Ox 98.1 F 101 H 16 112/47 L 92 04/06/19 15:22 04/06/19 15:22 04/06/19 15:22 04/06/19 15:22 04/06/19 15:22 Discharge - Discharge Clinical Impression: Traumatic hematoma of right wrist Qualifiers: Encounter type: initial encounter Qualified Code(s): S60.211A - Contusion of right wrist, initial encounter Condition: Good Disposition: HOME, SELF-CARE Instructions: Hematoma ([facility]) Additional Instructions: All x-rays and imaging studies were negative today. No obvious fractures. You may wear the Ignacio wrap on the right wrist and that may help with the swelling. Follow-up with your regular doctor. Return for any worsening symptoms or osman rns. Continue all of your regular medications. Referrals: SOFI GUERRIER MD [Primary Care Provider] - Follow up as needed
[2019-04-06 20:45] VITALS: BP 140/85
== END 2019-04-06 20:45 | disposition home or self-care (01) ==
LOC: ER 15:21
DX: S60.211A Contusion of right wrist, initial encounter (principal); W19.XXXA Unspecified fall, initial encounter; M25.571 Pain in right ankle and joints of right foot; R51 Headache; M25.551 Pain in right hip; M54.2 Cervicalgia; I48.91 Unspecified atrial fibrillation; I50.9 Heart failure, unspecified; E78.00 Pure hypercholesterolemia, unspecified; I11.0 Hypertensive heart disease with heart failure; E11.9 Type 2 diabetes mellitus without complications; Z86.711 Personal history of pulmonary embolism; Z88.0 Allergy status to penicillin; Z88.6 Allergy status to analgesic agent; I25.2 Old myocardial infarction; Z86.14 Personal history of Methicillin resistant Staphylococcus aureus infection
CPT/HCPCS: 73610; 73630; 73130; 73502; 73110; 70450; 72125; A9270; 99284

== ENCOUNTER → 2019-04-13 | Outpatient (CLI) | payer MEDICARE ==
--- NOTE | 2019-04-13 14:13 | RADIOLOGY REPORT (SQ) ---
EXAM DESCRIPTION: ACUTE ABDOMEN SERIES COMPLETED DATE/TIME: 04/13/2019 10:33 am REASON FOR STUDY: CONSTIPATION, UNSPECIFIED,UTI,NAUSEA N39.0 URINARY TRACT INFECTION, SITE NOT SPEC IFIED K59.00 CONSTIPATION, UNSPECIFIED R11.0 NAUSEA COMPARISON: 10/14/2018 NUMBER OF VIEWS: Three views. TECHNIQUE: Frontal chest, supine abdomen and upright/decubitus abdomen radiographic images acquired. LIMITATIONS: None. FINDINGS: CHEST: Lungs clear of infiltrates. FREE AIR: None. No abnormal gas collections. BOWEL GAS PATTERN: Nonobstructive gas pattern. Large amount of retained stool. Large amount of stoo l in the rectum. CALCIFICATIONS: No suspicious calcifications. HARDWARE: None in the abdomen. SOFT TISSUES: No gross mass or suggestion of organomegaly. BONES: No acute fracture. No worrisome bone lesions. OTHER: No other significant finding. IMPRESSION: Constipation. Cannot exclude fecal impaction. TECHNICAL DOCUMENTATION: JOB ID: [id number] [employer]- All Rights Reserved Reading location - IP/workstation name: [email or web address]
== END ==
LOC: OD 10:01
PROVIDERS: ATTEND Family Medicine Geriatric Medicine
DX: N39.0 Urinary tract infection, site not specified (principal); K59.00 Constipation, unspecified; R11.0 Nausea
CPT/HCPCS: 74022; 87086; 87088; 87186

== ENCOUNTER 2019-06-11 07:45 | Inpatient (IN) | payer MEDICARE, OTHER ==
[2019-06-11] MEDS ORDERED: VANCOMYCIN HCL INJ 1000 MG VIAL IV ONE (07:54)
[2019-06-11] MEDS ORDERED: CEFEPIME INJ 1 GM VIAL IM ONE (07:54)
[2019-06-11] MEDS ORDERED: NORMAL SALINE 1000 ML 1,000 ML IV ONE (07:56)
--- NOTE | 2019-06-11 08:22 | ER Document Report ---
ED General - General Stated Complaint: LEFT FOOT PAIN Time Seen by Provider: 06/11/19 07:54 Primary Care Provider: SOFI GUERRIER MD [Primary Care Provider] - Follow up as needed Notes: 84-year-old female was brought into the emergency department for infection of the left foot fever tachycardia. EMS arrived to find the patient to be very w arm. Had a red swollen foot and tachycardia. They were concerned for sepsis and activated a sepsis alert. Patient is slightly confused is oriented to person and place but not really time. The patient denies chest pain denies shortness of breath complains of severe aching foot pain. Cannot really recall how long its been going on. TRAVEL OUTSIDE OF THE [place] IN LAST 30 DAYS: No - Related Data Allergies/Adverse Reactions: morphine Allergy (Mild, Verified 04/06/19 15:24) Penicillins Allergy (Verified 04/06/19 15:24) Past Medical History - Social History Smoking Status: Unknown if Ever Smoked Family History: Reviewed & Not Pertinent, CAD, COPD, DM, Hyperlipidemia, Hypertension, Malignancy - Father with lung cancer. Cousin with leukemia. 3 brothers with unknown cancers. Mother also of unknown type of cancer., Other - Past Medical History Cardiac Medical History: Reports: Hx Atrial Fibrillation, Hx Congestive Heart Failure, Hx Coronary Artery Disease, Hx Heart Attack - x2, Hx Hypercholesterolemia, Hx Hypertension, Hx Pulmonary Embolism - Distant history Pulmonary Medical History: Denies: Hx Asthma, Hx COPD Neurological Medical History: Denies: Hx Seizures Endocrine Medical History: Reports: Hx Diabetes Mellitus Type 1, Hx Diabetes Mellitus Type 2. Denies: Hx Hyperthyroidism, Hx Hypothyroidism Renal/ Medical History: Denies: Hx Peritoneal Dialysis Malignancy Medical History: Reports: Hx Skin Cancer - Excised from her nose GI Medical History: Reports: Hx Gastroesophageal Reflux Disease. Denies: Hx Cirrhosis, Hx Hepatitis Musculoskeletal Medical History: Reports Hx Arthritis, Denies Hx Gout, Reports Hx Musculoskeletal Deformity Skin Medical History: Denies Hx Eczema, Denies Hx Psoriasis Psychiatric Medical History: Reports: Hx Anxiety, Hx Depression Infectious Medical History: Reports: Hx MRSA - remote history. Denies: Hx Hepatitis Past Surgical History: Reports: Hx Abdominal Surgery, Hx Appendectomy, Hx Cholecystectomy, Hx Hysterectomy, Hx Tonsillectomy, Hx Vascular Surgery, Other - Cardiac loop recorder, bilateral cataract surgery, hemorrhoidectomy - Immunizations Hx Diphtheria, Pertussis, Tetanus Vaccination: No Hx Pneumococcal Vaccination: 04/29/13 Review of Systems - Review of Systems Constitutional: Chills, Fever, Malaise EENT: No symptoms reported Cardiovascular: denies: Chest pain Respiratory: denies: Hurts to breathe, Short of breath, Wheezing Gastrointestinal: denies: Abdominal pain, Diarrhea, Nausea, Vomiting Musculoskeletal: Joint pain. denies: Neck pain, Deformity Neurological/Psychological: Confusion, Dementia. denies: Headaches -: Yes All other systems reviewed and negative Physical Exam - Vital signs Vitals: Resp 16 06/11/19 08:01 - Notes Notes: GENERAL_APPEARANCE: well_nourished, alert, cooperative VITALS: reviewed, see vital signs table. HEAD: no_swelling\tenderness on the head. EYES: PERRL, EOMI, conjunctiva_clear. NOSE: no_nasal_discharge. MOUTH: (-)decreased moisture. THROAT: no_tonsilar_inflammation, no_airway_obstruction. no_lymphadenopathy NECK: supple, no_neck_tenderness, (-)thyromegaly. BACK: no_back_tenderness. CHEST_WALL: no_chest_tenderness. LUNGS: no_wheezing, no_rales, no_rhonchi, (-)accessory muscle use, good air exchange bilateral. HEART: normal_rate, normal_rhythm, normal_S1, normal_S2, (-)S3, (-)S4, no_murmur, no_rub. ABDOMEN: normal_BS, soft, no_abd_tenderness, (-)guarding, (-)rebound, no_organomegaly, no_abd_masses. EXTREMITIES: good pulses in all_extremities, right foot is warm to touch there is redness and blistering. Mainly over the sole and dorsum at the base of the great toe. Dorsalis pedis pulses posterior tibial pulses are intact, no_edema. SKIN: warm, dry, good_color, no_rash. MENTAL_STATUS: speech_clear, oriented_person and place but not time, normal _affect, responds_appropriately to questions. NEURO: Neg Motor or Sensory Deficits on exam, CN 2-12 intact, DTR 2+ symmetric x 4, No cerbellar signs Course - Re-evaluation Re-evalutation: 06/11/19 08:22 84-year-old female presents with concern for sepsis. Her left foot is infected. There is some blistering there. Pulses are present when I evaluate. Patient has a low-grade temp. We will get an x-ray CRP ESR. We will give broad- spectrum antibiotics for sepsis the patient is showing sirs criteria. 06/11/19 10:58 Patient does have an elevated lactic acid. She received a liter of IV fluids did not want a fluid overload her. Fluid resuscitation was based on ideal weight Patient received IV vancomycin and cefepime. She has not been hypotensive while she is been here. X-ray shows cellulitis no intra-planar air or anything to suggest necrotizing fasciitis. There is a fracture there which may be old. I have spoke with the hospital service for hospitalization. 06/11/19 10:59 White count is chronically elevated looking back on the last visit the white blood cell count was 40,000 also. - Vital Signs Vital signs: Temp Pulse Resp BP Pulse Ox 17 134/60 H 06/11/19 09:02 06/11/19 09:02 - Laboratory Result Diagrams: 06/11/19 08:05 06/11/19 08:05 Laboratory results interpreted by me: 06/11/19 06/11/19 06/11/19 07:58 08:05 08:05 WBC 45.4 H* RBC 6.26 H Hct 47.1 H MCV 75 L MCH 23.6 L MCHC 31.3 L RDW 25.6 H Plt Count 460 H Seg Neuts % (Manual) 88 H Lymphocytes % (Manual) 5 L Abs Neuts (Manual) 40.0 H Absolute Eos (Manual) 1.4 H Abs Basophils (Manual) 0.5 H ESR PT 17.0 H Sodium Chloride BUN Est GFR ( Amer) Est GFR (MDRD) Non-Af Glucose POC Glucose 245 H Lactic Acid Alkaline Phosphatase Urine Protein Urine Glucose (UA) Urine Blood Urine Urobilinogen Leukocyte Esterase Rfl 06/11/19 06/11/19 06/11/19 08:05 08:05 08:05 WBC RBC Hct MCV MCH MCHC RDW Plt Count Seg Neuts % (Manual) Lymphocytes % (Manual) Abs Neuts (Manual) Absolute Eos (Manual) Abs Basophils (Manual) ESR 51 H PT Sodium 134.9 L Chloride 97 L BUN 25 H Est GFR ( Amer) 59 L Est GFR (MDRD) Non-Af 49 L Glucose 377 H POC Glucose Lactic Acid 2.8 H Alkaline Phosphatase 312 H Urine Protein Urine Glucose (UA) Urine Blood Urine Urobilinogen Leukocyte Esterase Rfl 06/11/19 10:12 WBC RBC Hct MCV MCH MCHC RDW Plt Count Seg Neuts % (Manual) Lymphocytes % (Manual) Abs Neuts (Manual) Absolute Eos (Manual) Abs Basophils (Manual) ESR PT Sodium Chloride BUN Est GFR ( Amer) Est GFR (MDRD) Non-Af Glucose POC Glucose Lactic Acid Alkaline Phosphatase Urine Protein 30 H Urine Glucose (UA) >=500 H Urine Blood SMALL H Urine Urobilinogen 2.0 H Leukocyte Esterase Rfl LARGE H Critical Care Note - Critical Care Note Total time excluding time spent on procedures (mins): 32 Discharge - Discharge Clinical Impression: Cellulitis and abscess of foot Sepsis Qualifiers: Sepsis type: sepsis due to unspecified organism Acute respiratory failure type: unspecified Severe sepsis shock status: without septic shock Condition: Good Disposition: ADMITTED INPATIENT Admitting Provider: Candido (Hospitalist) Unit Admitted: Telemetry Referrals: SOFI GUERRIER MD [Primary Care Provider] - Follow up as needed
[2019-06-11 08:34] LABS: HEMATOCRIT 47.1 % (36.0-47.0); HEMOGLOBIN 14.8 g/dL (12.0-15.5); MEAN CORPUSCULAR HEMOGLOBIN 23.6 pg (27.0-33.4); MEAN CORPUSCULAR HGB CONC 31.3 g/dL (32.0-36.0); MEAN CORPUSCULAR VOLUME 75 fl (80-97); PLATELET COUNT 460 10^3/uL (150-450); RED BLOOD COUNT 6.26 10^6/uL (3.72-5.28); RED CELL DISTRIBUTION WIDTH 25.6 % (11.5-14.0)
[2019-06-11 08:37] LABS: INTERNATIONAL RATION (INR) 1.37
[2019-06-11 08:48] LABS: VENOUS BLOOD BASE EXCESS 1.7 mmol/L; VENOUS BLOOD PH 7.37 (7.30-7.42)
[2019-06-11 08:57] LABS: ALBUMIN 3.5 g/dL (3.5-5.0); ALKALINE PHOSPHATASE 312 U/L (38-126); ANION GAP 10 (5-19); ASPARTATE AMINO TRANSFERASE 24 U/L (14-36); BILIRUBIN,DIRECT 0.3 mg/dL (0.0-0.4); BILIRUBIN,TOTAL 0.9 mg/dL (0.2-1.3); BLOOD UREA NITROGEN 25 mg/dL (7-20); CARBON DIOXIDE 28 mmol/L (22-30); CHLORIDE 97 mmol/L (98-107); GLUCOSE 377 mg/dL (75-110); POTASSIUM 4.6 mmol/L (3.6-5.0); TOTAL PROTEIN 7.9 g/dL (6.3-8.2)
[2019-06-11 09:05] LABS: ABSOLUTE LYMPHOCYTES# (MANUAL) 2.3 10^3/uL (0.5-4.7); ABSOLUTE MONOCYTES # (MANUAL) 1.4 10^3/uL (0.1-1.4); BASOPHILS % (MANUAL) 1 % (0-2); EOSINOPHILS % (MANUAL) 3 % (0-6); LYMPHOCYTES % (MANUAL) 5 % (13-45); MONOCYTES % (MANUAL) 3 % (3-13); NUCLEATED RED BLOOD CELLS 1 /100 WBC (0); SEGMENTED NEUTROPHILS % (MAN) 88 % (42-78); TOTAL CELLS COUNTED 100
[2019-06-11 09:07] LABS: ANISOCYTOSIS 3+; PLATELET GIANT PRESENT; PLATELET LARGE PRESENT; POLYCHROMASIA 1+; TOXIC VACUOLATION PRESENT
[2019-06-11 09:08] LABS: PLATELET COMMENT INCREASED
[2019-06-11 09:09] LABS: WHITE BLOOD COUNT 45.4 10^3/uL (4.0-10.5)
--- NOTE | 2019-06-11 09:10 | RADIOLOGY REPORT (SQ) ---
EXAM DESCRIPTION: FOOT LEFT 2 VIEWS COMPLETED DATE/TIME: 06/11/2019 8:40 am REASON FOR STUDY: infection COMPARISON: 09/25/2018 NUMBER OF VIEWS: Three views. TECHNIQUE: AP, lateral and oblique radiographic images acquired of the left foot. LIMITATIONS: None. FINDINGS: MINERALIZATION: Osteopenia. BONES: Old fracture distal phalanx 2nd toe. Acute fracture distal margin proximal 2nd phalanx. JOINTS: Intact. SOFT TISSUES: Extensive subcutaneous gas forefoot. No foreign body. OTHER: No other significant finding. IMPRESSION: Cellulitis. Fracture proximal 2nd phalanx, possibly pathologic secondary to osteomyelit is. TECHNICAL DOCUMENTATION: JOB ID: [id number] [employer]- All Rights Reserved Reading location - IP/workstation name: [email or web address]
--- NOTE | 2019-06-11 09:11 | RADIOLOGY REPORT (SQ) ---
EXAM DESCRIPTION: CHEST SINGLE VIEW COMPLETED DATE/TIME: 06/11/2019 8:40 am REASON FOR STUDY: fever COMPARISON: 03/24/2019 NUMBER OF VIEWS: One view. TECHNIQUE: Single frontal radiographic view of the chest acquired. LIMITATIONS: Poor inspiratory effort. Overlying breast tissue. FINDINGS: LUNGS AND PLEURA: There is silhouetting of the left diaphragm which could be due to techni que/ overlying breast tissue however cannot exclude developing pneumonia. Right lung is clear. MEDIASTINUM AND HILAR STRUCTURES: No masses. Contour normal. HEART AND VASCULAR STRUCTURES: Heart enlarged without failure. Normal vasculature. BONES: No acute findings. HARDWARE: None in the chest. OTHER: No other significant finding. IMPRESSION: Possible infiltrate left lower lobe. TECHNICAL DOCUMENTATION: JOB ID: [id number] [employer]- All Rights Reserved Reading location - IP/workstation name: [email or web address]
[2019-06-11 10:31] LABS: APPEARANCE,URINE SLIGHTLY-CLOUDY; BILIRUBIN,URINE NEGATIVE (NEGATIVE); COLOR,URINE AMBER; GLUCOSE, URINE >=500 mg/dL (NEGATIVE); KETONES,URINE NEGATIVE (NEGATIVE); PROTEIN,URINE 30 mg/dL (NEGATIVE); URINE SPECIFIC GRAVITY 1.014
[2019-06-11] MEDS ORDERED: NORMAL SALINE 1000 ML 1,000 ML IV PRN (11:35)
[2019-06-11] MEDS ORDERED: RANOLAZINE 500 MG TAB.SR.12H PO ONE (11:43)
[2019-06-11] MEDS ORDERED: VANCOMYCIN HCL 0 MG in DEXTROSE 5%-WATER 250 ML IV NR (11:45)
[2019-06-11] MEDS ORDERED: DEXTROSE 40% GEL 15 GM TUBE PO PRN ×2 (12:07)
[2019-06-11] MEDS ORDERED: GLUCAGON,HUMAN RECOMB 1 MG INJ IM PRN (12:07)
[2019-06-11] MEDS ORDERED: DEXTROSE 50%-WATER 25 GM/50 ML DISP.SYRIN IV PRN ×2 (12:07)
--- NOTE | 2019-06-11 12:10 | PDOC H&P ---
History of Present Illness Admission Date/PCP: 06/11/19 11:44 SOFI GUERRIER MD Patient complains of: Left foot pain History of Present Illness: ORACIO MUIR is a 84 year old female with a history of diabetes. She states that she noticed some discomfort in the foot several days ago. The foot slowly worsen. Eventually there was swelling and redness. There was blood on the floor when she walked. She reports having had a fever but did not check her temperature. She has an elevated white count as well as what looks like a diabetic foot ulcer. She was referred to the hospitalist service and started on antibiotics in the emergency department. Past Medical History Cardiac Medical History: Reports: Atrial Fibrillation, Congestive Heart Failure, Coronary Artery Disease, Myocardial Infarction - x2, Hyperlipidema, Hypertension, Pulmonary Embolism - Distant history Pulmonary Medical History: Denies: Asthma, Chronic Obstructive Pulmonary Disease (COPD) Neurological Medical History: Denies: Seizures Endocrine Medical History: Reports: Diabetes Mellitus Type 2 Denies: Hyperthyroidism, Hypothyroidism Malignancy Medical History: Reports: Skin Cancer - Excised from her nose 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 Past Surgical History Past Surgical History: Reports: Appendectomy, Cholecystectomy, Hysterectomy, Tonsillectomy, Vascular Surgery, Other - Cardiac loop recorder, bilateral cataract surgery, hemorrhoidectomy Social History Information Source: Patient, [facility] Records Lives with: Family Smoking Status: Unknown if Ever Smoked Electronic Cigarette use?: No Frequency of Alcohol Use: None Hx Recreational Drug Use: No Drugs: None Hx Prescription Drug Abuse: No - Advance Directive Resuscitation Status: Do Not Resuscitate Surrogate healthcare decision maker:: Daughter is the Designated decision maker. Daughter Jaylyn Muir Family History Family History: CAD, COPD, DM, Hyperlipidemia, Hypertension, Malignancy - Father with lung cancer. Cousin with leukemia. 3 brothers with unknown cancers. Mother also of unknown type of cancer., Other Parental Family History Reviewed: Yes Children Family History Reviewed: Yes Sibling(s) Family History Reviewed.: Yes Medication/Allergy Home Medications: Aspirin [Aspirin 81 mg Chewable Tablet] 81 mg PO DAILY 12/05/18 Buspirone HCl [Buspar 15 mg Tablet] 15 mg PO Q12 12/05/18 Clopidogrel Bisulfate [Plavix 75 mg Tablet] 75 mg PO DAILY 12/05/18 Hydroxyzine Pamoate [Vistaril 25 mg Capsule] 25 mg PO Q6HP PRN 12/05/18 Metoprolol Tartrate [Lopressor 50 mg Tablet] 50 mg PO DAILY 12/05/18 Pantoprazole Sodium [Protonix [address] Tablet] 40 mg PO DAILY 12/05/18 Ranolazine [Ranexa 500 mg Tab.sr] 500 mg PO Q12 12/05/18 Sertraline HCl [Zoloft] 25 mg PO DAILY 12/05/18 Trazodone HCl [Desyrel 50 mg Tablet] 50 mg PO DAILY 12/05/18 Insulin Lispro [Humalog Insulin (Lispro) 100 unit/mL] 0 - 16 unit SUBCUT ACHS unit 12/28/18 Cephalexin Monohydrate [Keflex 500 mg Capsule] 500 mg PO Q6H 7 Days capsule 01/26/19 Diphenhydramine HCl [Benadryl] 25 mg PO Q6H PRN 01/26/19 Furosemide [Lasix 40 mg Tablet] 20 mg PO DAILY 01/26/19 Gabapentin [Neurontin 300 mg Capsule] 300 mg PO Q12 01/26/19 Ibuprofen [Motrin 400 mg Tablet] 400 mg PO Q6H PRN 01/26/19 Insulin Detemir [Levemir] 22 unit SQ BID 01/26/19 Loperamide HCl [Loperamide] 2 mg PO Q4H PRN 01/26/19 Nitrofurantoin/Nitrofuran Mac [Macrobid 100 mg Capsule] 1 tab PO BID #14 capsule 01/26/19 Nystatin [Mycostatin Topical Powder 15 gm] 1 applic TP BID 01/26/19 Sennosides [Senna] 8.6 mg PO DAILY 01/26/19 Sulfamethoxazole/Trimethoprim [Bactrim Ds Tablet] 1 each PO BID #10 tablet 03/24/19 Allergies/Adverse Reactions: morphine Allergy (Mild, Verified 04/06/19 15:24) Penicillins Allergy (Unknown, Verified 06/11/19 13:16) Review of Systems Constitutional: ABSENT: chills, fever(s), headache(s), night sweats Eyes: ABSENT: visual disturbances Ears: ABSENT: hearing changes Nose, Mouth, and Throat: ABSENT: mouth pain, sore throat Cardiovascular: ABSENT: chest pain, edema, palpitations Respiratory: ABSENT: cough, dyspnea, hemoptysis Gastrointestinal: ABSENT: abdominal pain, constipation, diarrhea, heartburn, nausea, vomiting Genitourinary: ABSENT: dysuria, hematuria Musculoskeletal: ABSENT: back pain, joint swelling, muscle weakness Integumentary: PRESENT: lesions - Scaley lesion on the dorsum of the right hand Neurological: ABSENT: abnormal movements, abnormal speech, syncope, tremor(s) Psychiatric: ABSENT: anxiety, depression, hallucinations Endocrine: ABSENT: cold intolerance, heat intolerance, polydipsia, polyuria Hematologic/Lymphatic: ABSENT: easy bleeding, easy bruising Physical Exam Vital Signs: Temp Pulse Resp BP Pulse Ox 100.1 F 19 126/58 H 06/11/19 12:02 06/11/19 11:18 06/11/19 11:18 Intake & Output 06/10/19 06/11/19 06/12/19 06:59 06:59 06:59 Intake Total 1000 Balance 1000 Weight 86.183 kg General appearance: PRESENT: no acute distress, cooperative, well-developed Head exam: PRESENT: atraumatic, normocephalic Eye exam: PRESENT: conjunctiva pink. ABSENT: scleral icterus Ear exam: PRESENT: normal external ear exam. ABSENT: bleeding, drainage Mouth exam: PRESENT: dry mucosa, tongue midline Respiratory exam: PRESENT: clear to auscultation carmen, unlabored. ABSENT: decreased breath sounds, rales, rhonchi, wheezes Cardiovascular exam: PRESENT: RRR, +S1, +S2 GI/Abdominal exam: PRESENT: normal bowel sounds, soft. ABSENT: guarding, tenderness Rectal exam: PRESENT: deferred Gentrourinary exam: ABSENT: indwelling catheter Extremities exam: PRESENT: other - Left foot with discoloration. Plantar wound with raised area and old blood under the epidermis. ABSENT: pedal edema Musculoskeletal exam: PRESENT: normal inspection Neurological exam: PRESENT: alert, awake, oriented to person, oriented to place, oriented to situation, CN II-XII grossly intact Psychiatric exam: PRESENT: appropriate affect. ABSENT: agitated, anxious Focused psych exam: ABSENT: delusional, restlessness Skin exam: PRESENT: rash - scaley lesion on the dorsum of the right hand (patient thinks bug bite), other - as above Results Laboratory Results: 06/11/19 08:05 06/11/19 08:05 06/11/19 06/11/19 06/11/19 08:05 08:05 08:05 WBC 45.4 H* RBC 6.26 H Hgb 14.8 Hct 47.1 H MCV 75 L MCH 23.6 L MCHC 31.3 L RDW 25.6 H Plt Count 460 H Seg Neutrophils % Not Reportable VBG pH VBG pCO2 VBG HCO3 VBG Base Excess Sodium 134.9 L Potassium 4.6 Chloride 97 L Carbon Dioxide 28 Anion Gap 10 BUN 25 H Creatinine 1.07 Est GFR ( Amer) 59 L Glucose 377 H Lactic Acid 2.8 H Calcium 9.0 Total Bilirubin 0.9 AST 24 Alkaline Phosphatase 312 H Total Protein 7.9 Albumin 3.5 Urine Color Urine Appearance Urine pH Ur Specific [place] Urine Protein Urine Glucose (UA) Urine Ketones Urine Blood Urine RBC (Auto) 06/11/19 06/11/19 08:05 10:12 WBC RBC Hgb Hct MCV MCH MCHC RDW Plt Count Seg Neutrophils % VBG pH 7.37 VBG pCO2 50.0 VBG HCO3 28.0 VBG Base Excess 1.7 Sodium Potassium Chloride Carbon Dioxide Anion Gap BUN Creatinine Est GFR ( Amer) Glucose Lactic Acid Calcium Total Bilirubin AST Alkaline Phosphatase Total Protein Albumin Urine Color CORBY Urine Appearance SLIGHTLY-CLOUDY Urine pH 5.0 Ur Specific [place] 1.014 Urine Protein 30 H Urine Glucose (UA) >=500 H Urine Ketones NEGATIVE Urine Blood SMALL H Urine RBC (Auto) 8 Impressions: Chest X-Ray 06/11/19 07:55 IMPRESSION: Possible infiltrate left lower lobe. Foot X-Ray 06/11/19 08:19 IMPRESSION: Cellulitis. Fracture proximal 2nd phalanx, possibly pathologic secondary to osteomyelitis. Assessment and Plan - Diagnosis (1) Cellulitis and abscess of foot Is this a current diagnosis for this admission?: Yes Plan: 06/11/2019-left foot with cellulitis and wound that patient is unaware of except noticing the bleeding. Vancomycin and cefepime for now and monitor renal function. Kristin need to unroof some epidermis. I did asked that the left foot be elevated when possible. There was a question of sepsis however the patient does not meet sepsis criteria. Lactic acid alone is not an indicator. We will continue fluids and monitor the lactic acid level. (2) Coronary artery disease Qualifiers: Coronary Disease-Associated Artery/Lesion type: unspecified vessel or lesion type [place] vs. transplanted heart: [place] heart Associated angina: with unspecified angina Qualified Code(s): I25.119 - Atherosclerotic heart disease of [place] coronary artery with unspecified angina pectoris Is this a current diagnosis for this admission?: Yes Plan: 06/11/2019-no chest pain at this time. Will need to continue her current medication regimen and monitor on telemetry. 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 (4) CLL (chronic lymphocytic leukemia) Is this a current diagnosis for this admission?: Yes Plan: 06/11/2019-no acute treatment at this time. White blood cell count cannot be used as an indicator for infection due to its chronic elevation. (5) Chronic diastolic (congestive) heart failure Is this a current diagnosis for this admission?: Yes Plan: 06/11/2019-we will continue to monitor. Continue current medications. The patient is receiving increase fluids for elevated lactic acid. We will closely watch intake and output and diuresis necessary. 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
[2019-06-11] MEDS ORDERED: NORMAL SALINE 1000 ML 500 ML IV ONE (12:26)
[2019-06-11] MEDS: INSULIN LISPRO 100 UNIT/ML 3 ML VIAL SUBCUT SCH (18:30)
[2019-06-11] MEDS: HEPARIN SOD (PORCINE) 5,000 UNIT/ML 1 ML VIAL SUBCUT SCH ×2 (18:31→22:49)
[2019-06-11] MEDS ORDERED: INSULIN GLARGINE,HUM.REC.ANLOG 1,000 UNIT/10 ML VIAL (PYX) SUBCUT ONE (22:36)
[2019-06-11] MEDS: CEFEPIME 1 GM/D5W RTU 1 GM/50 ML RTUPB IV SCH (22:43)
[2019-06-11] MEDS: METOPROLOL TARTRATE 50 MG TABLET PO SCH (22:48)
[2019-06-11] MEDS: INSULIN GLARGINE,HUM.REC.ANLOG 1,000 UNIT/10 ML VIAL SUBCUT SCH (22:49)
[2019-06-12] MEDS: INSULIN LISPRO 100 UNIT/ML 3 ML VIAL SUBCUT SCH ×6 (00:42→23:03)
[2019-06-12] MEDS: ACETAMINOPHEN 325 MG TABLET PO PRN ×2 (03:08→20:32)
[2019-06-12 05:28] LABS: HEMATOCRIT 47.3 % (36.0-47.0); HEMOGLOBIN 14.7 g/dL (12.0-15.5); MEAN CORPUSCULAR HEMOGLOBIN 23.1 pg (27.0-33.4); MEAN CORPUSCULAR HGB CONC 31.1 g/dL (32.0-36.0); MEAN CORPUSCULAR VOLUME 74 fl (80-97); PLATELET COUNT 400 10^3/uL (150-450); RED BLOOD COUNT 6.37 10^6/uL (3.72-5.28); RED CELL DISTRIBUTION WIDTH 24.8 % (11.5-14.0)
[2019-06-12 05:31] LABS: WHITE BLOOD COUNT 44.3 10^3/uL (4.0-10.5)
[2019-06-12] MEDS: PANTOPRAZOLE SODIUM 40 MG TABLET.DR PO SCH (05:41)
[2019-06-12] MEDS: VANCOMYCIN HCL 1,250 MG in DEXTROSE 5%-WATER 250 ML IV SCH (05:41)
[2019-06-12] MEDS: HEPARIN SOD (PORCINE) 5,000 UNIT/ML 1 ML VIAL SUBCUT SCH ×3 (05:41→23:04)
[2019-06-12 05:42] LABS: ABSOLUTE LYMPHOCYTES# (MANUAL) 3.1 10^3/uL (0.5-4.7); ABSOLUTE MONOCYTES # (MANUAL) 2.7 10^3/uL (0.1-1.4); ANISOCYTOSIS 3+; BAND NEUTROPHILS % (MANUAL) 5 % (3-5); BASOPHILS % (MANUAL) 0 % (0-2); EOSINOPHILS % (MANUAL) 0 % (0-6); LYMPHOCYTES % (MANUAL) 5 % (13-45); MONOCYTES % (MANUAL) 6 % (3-13); SEGMENTED NEUTROPHILS % (MAN) 82 % (42-78); TOTAL CELLS COUNTED 100
[2019-06-12 05:43] LABS: OVALOCYTES SLIGHT; PLATELET COMMENT ADEQUATE; PLATELET LARGE PRESENT; POLYCHROMASIA SLIGHT
[2019-06-12 05:44] LABS: ANION GAP 11 (5-19); BLOOD UREA NITROGEN 15 mg/dL (7-20); CALCIUM 8.4 mg/dL (8.4-10.2); CARBON DIOXIDE 25 mmol/L (22-30); CHLORIDE 102 mmol/L (98-107); GLUCOSE 213 mg/dL (75-110); POTASSIUM 4.6 mmol/L (3.6-5.0)
--- NOTE | 2019-06-12 10:10 | PDOC PROGRESS REPORT ---
Subjective Progress Note for:: 06/12/19 Subjective:: Patient is not feeling much better. She also reports discomfort in the groin area. Blister on the left foot is larger. Left foot looks more swollen. Reason For Visit: SEPSIS,CELLULITIS AND ABSCESS OF FOOT Physical Exam Vital Signs: Temp Pulse Resp BP Pulse Ox 97.9 F 104 H 20 151/83 H 93 06/12/19 07:00 06/12/19 07:00 06/12/19 07:00 06/12/19 07:00 06/12/19 07:00 Intake & Output 06/11/19 06/12/19 06/13/19 06:59 06:59 06:59 Intake Total 1410 250 Balance 1410 250 Weight 85.9 kg General appearance: PRESENT: cooperative, mild distress, well-developed Head exam: PRESENT: atraumatic, normocephalic Respiratory exam: PRESENT: chest wall tenderness, symmetrical, unlabored. ABSENT: accessory muscle use, rales, rhonchi, tachypnea, wheezes Cardiovascular exam: PRESENT: RRR, +S1, +S2. ABSENT: diastolic murmur, systolic murmur GI/Abdominal exam: PRESENT: normal bowel sounds, soft. ABSENT: distended, ten derness Rectal exam: PRESENT: deferred Extremities exam: PRESENT: other - Left foot still quite red and swollen. The fluid-filled bullous lesion is spreading. It extends medially to the medial aspect of the first met head joint. It is extending somewhat proximally and laterally. There is increased fluid collection. I was able to express some f luid and it was foul-smelling dark sanguinous fluid. Musculoskeletal exam: PRESENT: other - The left foot appears slightly more swollen and still reddish erythematous changes. Neurological exam: PRESENT: alert, awake, oriented to person, oriented to place, oriented to time, oriented to situation Psychiatric exam: PRESENT: appropriate affect. ABSENT: agitated, anxious Focused psych exam: ABSENT: delusional, restlessness Skin exam: PRESENT: rash - In the skin folds (left greater than right parenthesis of the groin there is an erythematous rash with sporadic areas of breakdown. These are likely small bullae. There is a foul odor to the rash. There is no collection of fluid. Results Laboratory Results: 06/12/19 04:19 06/12/19 04:19 06/11/19 06/11/19 06/12/19 10:12 15:11 04:19 WBC 44.3 H* RBC 6.37 H Hgb 14.7 Hct 47.3 H MCV 74 L MCH 23.1 L MCHC 31.1 L RDW 24.8 H Plt Count 400 Seg Neutrophils % Not Reportable Sodium Potassium Chloride Carbon Dioxide Anion Gap BUN Creatinine Est GFR ( Amer) Glucose Lactic Acid 1.7 Calcium Magnesium Urine Color CORBY Urine Appearance SLIGHTLY-CLOUDY Urine pH 5.0 Ur Specific [place] 1.014 Urine Protein 30 H Urine Glucose (UA) >=500 H Urine Ketones NEGATIVE Urine Blood SMALL H Urine RBC (Auto) 8 06/12/19 04:19 WBC RBC Hgb Hct MCV MCH MCHC RDW Plt Count Seg Neutrophils % Sodium 137.9 Potassium 4.6 Chloride 102 Carbon Dioxide 25 Anion Gap 11 BUN 15 Creatinine 0.77 Est GFR ( Amer) > 60 Glucose 213 H Lactic Acid Calcium 8.4 Magnesium 1.8 Urine Color Urine Appearance Urine pH Ur Specific [place] Urine Protein Urine Glucose (UA) Urine Ketones Urine Blood Urine RBC (Auto) Impressions: Chest X-Ray 06/11/19 07:55 IMPRESSION: Possible infiltrate left lower lobe. Foot X-Ray 06/11/19 08:19 IMPRESSION: Cellulitis. Fracture proximal 2nd phalanx, possibly pathologic secondary to osteomyelitis. Assessment and Plan - Diagnosis (1) Cellulitis and abscess of foot Is this a current diagnosis for this admission?: Yes Plan: 06/11/2019-left foot with cellulitis and wound that patient is unaware of except noticing the bleeding. Vancomycin and cefepime for now and monitor renal function. Kristin need to unroof some epidermis. I did asked that the left foot be elevated when possible. There was a question of sepsis however the patient does not meet sepsis criteria. Lactic acid alone is not an indicator. We will continue fluids and monitor the lactic acid level. 06/12/2019-the blister on the bottom of the foot expanded somewhat. I was able to express fluid and a culture was sent. Continue current antibiotic regimen. The Gram stain of the fluid revealed gram-positive cocci. This is likely strep or staph. Once identification and sensitivities are available I will be able to narrow the antibiotic spectrum. (2) Coronary artery disease Qualifiers: Coronary Disease-Associated Artery/Lesion type: unspecified vessel or lesion type [place] vs. transplanted heart: [place] heart Associated angina: with unspecified angina Qualified Code(s): I25.119 - Atherosclerotic heart disease of [place] coronary artery with unspecified angina pectoris Is this a current diagnosis for this admission?: Yes Plan: 06/11/2019-no chest pain at this time. Will need to continue her current medication regimen and monitor on telemetry. 06/12/2019-continue current regimen. No signs of any acute coronary issues. 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 06/12/2019-continue Accu-Cheks and current regimen. (4) CLL (chronic lymphocytic leukemia) Is this a current diagnosis for this admission?: Yes Plan: 06/11/2019-no acute treatment at this time. White blood cell count cannot be used as an indicator for infection due to its chronic elevation. 06/12/2019-continue to monitor. (5) Chronic diastolic (congestive) heart failure Is this a current diagnosis for this admission?: Yes Plan: 06/11/2019-we will continue to monitor. Continue current medications. The patient is receiving increase fluids for elevated lactic acid. We will closely watch intake and output and diuresis necessary. 06/12/2019-no change in current regimen. - Time Time Spent with patient: 15-24 minutes Medications reviewed and adjusted accordingly: Yes
[2019-06-12] MEDS: INSULIN GLARGINE,HUM.REC.ANLOG 1,000 UNIT/10 ML VIAL SUBCUT SCH ×2 (11:16→23:03)
[2019-06-12] MEDS: METOPROLOL TARTRATE 50 MG TABLET PO SCH ×2 (11:16→23:02)
[2019-06-12] MEDS: CEFEPIME 1 GM/D5W RTU 1 GM/50 ML RTUPB IV SCH ×2 (11:17→23:02)
[2019-06-12] MEDS: CLOTRIMAZOLE/BETAMETHASONE DIP CREAM 15 GM TOP SCH ×2 (14:22→19:51)
--- NOTE | 2019-06-12 21:44 | EKG REPORT ---
SEVERITY:- OTHERWISE NORMAL ECG - SINUS TACHYCARDIA : Confirmed by: Bud Medina 12-Jun-2019 21:43:49
[2019-06-13] MEDS: HEPARIN SOD (PORCINE) 5,000 UNIT/ML 1 ML VIAL SUBCUT SCH ×3 (05:32→22:12)
[2019-06-13] MEDS: VANCOMYCIN HCL 1,250 MG in DEXTROSE 5%-WATER 250 ML IV SCH (05:32)
[2019-06-13] MEDS: PANTOPRAZOLE SODIUM 40 MG TABLET.DR PO SCH (05:32)
[2019-06-13] MEDS: INSULIN LISPRO 100 UNIT/ML 3 ML VIAL SUBCUT SCH (05:46)
[2019-06-13 06:27] LABS: HEMATOCRIT 47.4 % (36.0-47.0); HEMOGLOBIN 14.9 g/dL (12.0-15.5); MEAN CORPUSCULAR HEMOGLOBIN 23.6 pg (27.0-33.4); MEAN CORPUSCULAR HGB CONC 31.4 g/dL (32.0-36.0); MEAN CORPUSCULAR VOLUME 75 fl (80-97); PLATELET COUNT 491 10^3/uL (150-450); RED BLOOD COUNT 6.32 10^6/uL (3.72-5.28)
[2019-06-13 06:37] LABS: WHITE BLOOD COUNT 40.6 10^3/uL (4.0-10.5)
[2019-06-13 06:45] LABS: ANION GAP 10 (5-19); BLOOD UREA NITROGEN 16 mg/dL (7-20); CALCIUM 8.8 mg/dL (8.4-10.2); CARBON DIOXIDE 25 mmol/L (22-30); CHLORIDE 103 mmol/L (98-107); GLUCOSE 305 mg/dL (75-110); POTASSIUM 4.6 mmol/L (3.6-5.0)
[2019-06-13 06:47] LABS: ABSOLUTE LYMPHOCYTES# (MANUAL) 2.4 10^3/uL (0.5-4.7); ABSOLUTE MONOCYTES # (MANUAL) 0.8 10^3/uL (0.1-1.4); BAND NEUTROPHILS % (MANUAL) 5 % (3-5); BASOPHILS % (MANUAL) 0 % (0-2); EOSINOPHILS % (MANUAL) 0 % (0-6); LYMPHOCYTES % (MANUAL) 6 % (13-45); MONOCYTES % (MANUAL) 2 % (3-13); SEGMENTED NEUTROPHILS % (MAN) 87 % (42-78); TOTAL CELLS COUNTED 100
[2019-06-13 06:48] LABS: ANISOCYTOSIS 3+; HYPERSEGMENTED NEUTROPHILS PRESENT; OVALOCYTES SLIGHT; POLYCHROMASIA 1+; TOXIC VACUOLATION PRESENT
[2019-06-13 06:49] LABS: PLATELET COMMENT INCREASED; PLATELET GIANT PRESENT; PLATELET LARGE PRESENT; TEAR DROP CELLS SLIGHT
[2019-06-13 07:03] LABS: ERYTHROCYTE SEDIMENTATION RATE 47 mm/hr (0-30)
[2019-06-13] MEDS: ACETAMINOPHEN 325 MG TABLET PO PRN ×2 (08:49→14:41)
--- NOTE | 2019-06-13 09:24 | PDOC PROGRESS REPORT ---
Subjective Subjective:: The patient is resting comfortably in bed. Review of the foot x-ray shows significant subcutaneous gas. Dr. Morrissey has seen the patient urgently. The patient is now n.p.o. and will go to the operating room shortly. Reason For Visit: SEPSIS,CELLULITIS AND ABSCESS OF FOOT Physical Exam Vital Signs: Temp Pulse Resp BP Pulse Ox 98.6 F 88 17 155/64 H 95 06/13/19 00:04 06/13/19 02:00 06/13/19 00:04 06/13/19 00:04 06/13/19 00:04 Intake & Output 06/12/19 06/13/19 06/14/19 06:59 06:59 06:59 Intake Total 1410 1366 50 Balance 1410 1366 50 Weight 85.9 kg 80.6 kg General appearance: PRESENT: cooperative, mild distress - Anxious about surgery, well-developed Head exam: PRESENT: atraumatic, normocephalic Eye exam: PRESENT: conjunctiva pink. ABSENT: scleral icterus Ear exam: PRESENT: normal external ear exam. ABSENT: bleeding, drainage Mouth exam: PRESENT: moist, tongue midline Respiratory exam: PRESENT: clear to auscultation carmen, symmetrical, unlabored. ABSENT: accessory muscle use, rales, rhonchi, tachypnea, wheezes Cardiovascular exam: PRESENT: RRR, +S1, +S2. ABSENT: diastolic murmur, systolic murmur GI/Abdominal exam: PRESENT: normal bowel sounds, soft. ABSENT: distended, tenderness Rectal exam: PRESENT: deferred Gentrourinary exam: ABSENT: indwelling catheter Extremities exam: PRESENT: pedal edema - Right foot still with erythema and swelling, tenderness - Left foot. ABSENT: joint swelling Neurological exam: PRESENT: alert, awake, oriented to person, oriented to place, oriented to situation, CN II-XII grossly intact Psychiatric exam: PRESENT: anxious. ABSENT: agitated Focused psych exam: ABSENT: delusional, restlessness Skin exam: PRESENT: erythema - Left foot Results Laboratory Results: 06/13/19 05:20 06/13/19 05:20 06/13/19 06/13/19 05:20 05:20 WBC 40.6 H* RBC 6.32 H Hgb 14.9 Hct 47.4 H MCV 75 L MCH 23.6 L MCHC 31.4 L RDW 25.0 H Plt Count 491 H Seg Neutrophils % Not Reportable Sodium 138.0 Potassium 4.6 Chloride 103 Carbon Dioxide 25 Anion Gap 10 BUN 16 Creatinine 0.89 Est GFR ( Amer) > 60 Glucose 305 H Calcium 8.8 Magnesium 1.9 06/11/19 10:12 Clean Catch Midstream Urine Culture - Final Mixed Urogenital [place] Impressions: Chest X-Ray 06/11/19 07:55 IMPRESSION: Possible infiltrate left lower lobe. Foot X-Ray 06/11/19 08:19 IMPRESSION: Cellulitis. Fracture proximal 2nd phalanx, possibly pathologic secondary to osteomyelitis. Assessment and Plan - Diagnosis (1) Cellulitis and abscess of foot Is this a current diagnosis for this admission?: Yes Plan: 06/11/2019-left foot with cellulitis and wound that patient is unaware of except noticing the bleeding. Vancomycin and cefepime for now and monitor renal function. Kristin need to unroof some epidermis. I did asked that the left foot be elevated when possible. There was a question of sepsis however the patient does not meet sepsis criteria. Lactic acid alone is not an indicator. We will continue fluids and monitor the lactic acid level. 06/12/2019-the blister on the bottom of the foot expanded somewhat. I was able to express fluid and a culture was sent. Continue current antibiotic regimen. The Gram stain of the fluid revealed gram-positive cocci. This is likely strep or staph. Once identification and sensitivities are available I will be able to narrow the antibiotic spectrum. 06/13/2019-no significant improvement in the foot despite several days of antibiotic therapy. X-rays reviewed. Due to the amount of gas surgery was cons ulted. Dr. Morrissey has seen the patient urgently and will be taking the patient to the operating room for debridement. Hopefully transmetatarsal amputation will not be necessary. Continue current antibiotic therapy. (2) Coronary artery disease Qualifiers: Coronary Disease-Associated Artery/Lesion type: unspecified vessel or lesion type [place] vs. transplanted heart: [place] heart Associated angina: with unspecified angina Qualified Code(s): I25.119 - Atherosclerotic heart disease of [place] coronary artery with unspecified angina pectoris Is this a current diagnosis for this admission?: Yes Plan: 06/11/2019-no chest pain at this time. Will need to continue her current medication regimen and monitor on telemetry. 06/12/2019-continue current regimen. No signs of any acute coronary issues. 06/13/2019-the patient is stable on her current regimen. No acute coronary issues since admission. 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 06/12/2019-continue Accu-Cheks and current regimen. 06/13/2019-increase Lantus to 20 units twice daily and change sliding scale to a less aggressive scale with regular insulin. (4) CLL (chronic lymphocytic leukemia) Is this a current diagnosis for this admission?: Yes Plan: 06/11/2019-no acute treatment at this time. White blood cell count cannot be used as an indicator for infection due to its chronic elevation. 06/12/2019-continue to monitor. 06/13/2019-white cell count still elevated. This is to be expected. (5) Chronic diastolic (congestive) heart failure Is this a current diagnosis for this admission?: Yes Plan: 06/11/2019-we will continue to monitor. Continue current medications. The patient is receiving increase fluids for elevated lactic acid. We will closely watch intake and output and diuresis necessary. 06/12/2019-no change in current regimen. 06/13/2019-continue to monitor intake and output. - Time Time Spent with patient: 15-24 minutes Medications reviewed and adjusted accordingly: Yes
[2019-06-13] MEDS ORDERED: INSULIN GLARGINE,HUM.REC.ANLOG 1,000 UNIT/10 ML VIAL (PYX) SUBCUT ONE (10:00)
[2019-06-13] MEDS: METOPROLOL TARTRATE 50 MG TABLET PO SCH ×2 (11:34→22:11)
[2019-06-13] MEDS: CLOTRIMAZOLE/BETAMETHASONE DIP CREAM 15 GM TOP SCH ×2 (11:34→20:20)
[2019-06-13] MEDS: CEFEPIME 1 GM/D5W RTU 1 GM/50 ML RTUPB IV SCH ×2 (11:35→22:10)
[2019-06-13] MEDS: INSULIN REG, HUMAN 100 UNIT/ML 3 ML VIAL (PYX) SUBCUT SCH ×3 (11:42→22:12)
[2019-06-13] MEDS: NORMAL SALINE 1000 ML 1,000 ML IV PRN ×2 (11:53→17:55)
[2019-06-13] MEDS ORDERED: FENTANYL CITRATE INJ/PF 100 MCG/2 ML AMPUL ONE (15:53)
[2019-06-13] MEDS ORDERED: MIDAZOLAM 2 MG/2 ML INJ ONE (15:54)
[2019-06-13] MEDS ORDERED: PROPOFOL INJ 200 MG/20 ML VIAL IV ONE ×2 (15:54→18:00)
[2019-06-13] MEDS ORDERED: FENTANYL CITRATE INJ/PF 100 MCG/2 ML AMPUL IV PRN ×3 (16:50)
[2019-06-13] MEDS ORDERED: OXYCODONE-ACETAMINOPHEN 5-325 MG TABLET PO PRN ×2 (16:50)
[2019-06-13] MEDS ORDERED: DIPHENHYDRAMINE HCL 50 MG/ML VIAL IV PRN (16:50)
[2019-06-13] MEDS ORDERED: MEPERIDINE HCL/PF INJ 25 MG/1 ML DISP.SYRIN IV PRN (16:50)
[2019-06-13] MEDS ORDERED: BUPIVACAINE HCL 0.5 % INJ/PF 30 ML SDV ONE (17:04)
[2019-06-13] MEDS: FENTANYL CITRATE INJ/PF 100 MCG/2 ML AMPUL ONE ×4 (18:15→18:35)
[2019-06-13] MEDS ORDERED: KETOROLAC TROMETHAMINE INJ/PF 30 MG/1 ML SDV ONE (18:48)
--- NOTE | 2019-06-13 19:21 | Operative Report ---
Operative Report DATE OF SURGERY: 06/13/19 PREOPERATIVE DIAGNOSIS: Abscess of left foot with osteomyelitis of the left sec ond and toe proximal phalange POSTOPERATIVE DIAGNOSIS: Same OPERATION: Debridement of left foot abscess with transmetatarsal amputation SURGEON: GODWIN RAY ANESTHESIA: LMAC TISSUE REMOVED OR ALTERED: Left toes and metatarsal heads COMPLICATIONS: None ESTIMATED BLOOD LOSS: 100 cc QUANTITATIVE BLOOD LOSS: 100 INTRAOPERATIVE FINDINGS: There is extensive purulent material on the plantar aspect of the left foot with the gas noted. There is extension of the abscess towards the base of the fourth toes the first of the fourth toe. There is also dark discoloration on the dorsum of the left foot and also dark to whitish discoloration on the left ankle on the medial side. There is fairly decent blood supply to the metatarsal area as. There is gangrenous changes on the skin from the medial side of the foot extending to the mid part were underneath was the abscess. PROCEDURE: After adequate IV sedation patient was placed in supine position in the left leg elevated on a wedge in the left foot and below the knee were then prepped and draped in the usual sterile fashion. Appropriate timeout was then called. Next local anesthesia with half percent Marcaine was then injected surrounding the abscess cavity and then also to the base of the toes and the metatarsal head areas and also on the dorsum. The gangrenous skin area was then excised and pus noted to get it was some gas. Cultures were then obtained. The necrotic tissue was debrided sharply and pulling some of the tendons posteriorly and cutting them with scissors. The abscess cavity appears to extend be extending to the base of the first second third and fourth toes. Because of this a transmetatarsal amputation was then done and the metatarsal head subsequently divided with the bone cutter and further divided proximally using a rondure. There was a fair amount of blood supply at the area of the metatarsal site. Unfortunately patient appears to be not tolerating the procedure well under local anesthesia and after most of the necrotic tissue that I can identify was removed the procedure was then terminated. Some of the oozing was controlled controlled with cautery and the wound subsequently wash with saline. The wound was left open in view of potential further infection and also the possibility of higher up amputation such as BKA. The area on the medial side of the ankle appears to have dark discoloration with some whitish and edema and able to squeeze out some clots towards the area of the amputation. Following this and after adequate hemostasis noted the stump was then dressed with dilated Betadine soaked 4 x 4 covered with ABD Kerlix and Ignacio bandage. Patient then brought to the recovery room in satisfactory condition. Needle instrument sponge count were all correct.
[2019-06-13] MEDS ORDERED: ACETAMINOPHEN INJ/PF 1000 MG/100 ML SDV IV PRN (20:07)
[2019-06-13] MEDS: INSULIN GLARGINE,HUM.REC.ANLOG 1,000 UNIT/10 ML VIAL SUBCUT SCH (22:11)
[2019-06-13] MEDS: KETOROLAC TROMETHAMINE INJ/PF 30 MG/1 ML SDV IV SCH (23:17)
[2019-06-14] MEDS: HEPARIN SOD (PORCINE) 5,000 UNIT/ML 1 ML VIAL SUBCUT SCH ×3 (05:38→21:13)
[2019-06-14] MEDS: PANTOPRAZOLE SODIUM 40 MG TABLET.DR PO SCH (05:44)
[2019-06-14] MEDS: KETOROLAC TROMETHAMINE INJ/PF 30 MG/1 ML SDV IV SCH ×3 (05:44→16:59)
[2019-06-14 06:37] LABS: HEMATOCRIT 40.8 % (36.0-47.0); MEAN CORPUSCULAR HEMOGLOBIN 23.1 pg (27.0-33.4); MEAN CORPUSCULAR HGB CONC 31.2 g/dL (32.0-36.0); MEAN CORPUSCULAR VOLUME 74 fl (80-97); PLATELET COUNT 472 10^3/uL (150-450); RED BLOOD COUNT 5.52 10^6/uL (3.72-5.28); RED CELL DISTRIBUTION WIDTH 24.5 % (11.5-14.0)
[2019-06-14 06:47] LABS: ANION GAP 9 (5-19); BLOOD UREA NITROGEN 17 mg/dL (7-20); CALCIUM 8.4 mg/dL (8.4-10.2); CARBON DIOXIDE 24 mmol/L (22-30); CHLORIDE 107 mmol/L (98-107); GLUCOSE 270 mg/dL (75-110)
[2019-06-14] MEDS: VANCOMYCIN HCL 1,250 MG in DEXTROSE 5%-WATER 250 ML IV SCH (06:49)
[2019-06-14 06:52] LABS: VANCOMYCIN,TROUGH 7.2 ug/mL (5.0-20.0)
[2019-06-14 06:54] LABS: WHITE BLOOD COUNT 36.9 10^3/uL (4.0-10.5)
[2019-06-14 06:55] LABS: HEMOGLOBIN 12.7 g/dL (12.0-15.5)
[2019-06-14 07:00] LABS: ABSOLUTE LYMPHOCYTES# (MANUAL) 1.8 10^3/uL (0.5-4.7); ABSOLUTE MONOCYTES # (MANUAL) 1.1 10^3/uL (0.1-1.4); BAND NEUTROPHILS % (MANUAL) 5 % (3-5); BASOPHILS % (MANUAL) 1 % (0-2); EOSINOPHILS % (MANUAL) 1 % (0-6); LYMPHOCYTES % (MANUAL) 5 % (13-45); MONOCYTES % (MANUAL) 3 % (3-13); SEGMENTED NEUTROPHILS % (MAN) 85 % (42-78); TOTAL CELLS COUNTED 100
[2019-06-14 07:01] LABS: ANISOCYTOSIS 3+; PLATELET COMMENT INCREASED; PLATELET LARGE PRESENT
[2019-06-14 07:22] LABS: POTASSIUM 4.3 mmol/L (3.6-5.0)
[2019-06-14] MEDS ORDERED: GLUCAGON,HUMAN RECOMB 1 MG INJ SUBCUT PRN (07:24)
[2019-06-14] MEDS ORDERED: DEXTROSE 50%-WATER 25 GM/50 ML DISP.SYRIN IV PRN ×2 (07:24)
[2019-06-14] MEDS ORDERED: DEXTROSE 40% GEL 15 GM TUBE PO PRN ×2 (07:24)
[2019-06-14] MEDS: METOPROLOL TARTRATE 50 MG TABLET PO SCH ×2 (09:44→21:14)
[2019-06-14] MEDS: CEFEPIME 1 GM/D5W RTU 1 GM/50 ML RTUPB IV SCH ×2 (09:45→21:18)
[2019-06-14] MEDS: INSULIN REG, HUMAN 100 UNIT/ML 3 ML VIAL (PYX) SUBCUT SCH ×4 (09:45→22:43)
[2019-06-14] MEDS: INSULIN GLARGINE,HUM.REC.ANLOG 1,000 UNIT/10 ML VIAL SUBCUT SCH ×2 (09:45→21:13)
[2019-06-14] MEDS: CLOTRIMAZOLE/BETAMETHASONE DIP CREAM 15 GM TOP SCH ×2 (09:52→16:59)
--- NOTE | 2019-06-14 10:41 | PDOC PROGRESS REPORT ---
Subjective Progress Note for:: 06/14/19 Subjective:: Patient has some complaints of foot pain. Uneventful night. Reason For Visit: SEPSIS,CELLULITIS AND ABSCESS OF FOOT Physical Exam Vital Signs: Temp Pulse Resp BP Pulse Ox 98.4 F 77 16 171/61 H 95 06/14/19 07:50 06/14/19 07:50 06/14/19 07:50 06/14/19 07:50 06/14/19 07:50 Intake & Output 06/13/19 06/14/19 06/15/19 06:59 06:59 06:59 Intake Total 1366 1636 300 Balance 1366 1636 300 Weight 80.6 kg 79.2 kg General appearance: PRESENT: no acute distress Musculoskeletal exam: PRESENT: other - Dressing removed; transmetatarsal wound cleaned with some clot, and small sign of active bleeding managed with silver nitrate. Foul smell or active drainage. The forefoot is room temperature, with fresh and pink Results Laboratory Results: 06/14/19 05:29 06/14/19 05:29 06/14/19 06/14/19 06/14/19 05:29 05:29 05:29 WBC 36.9 H* RBC 5.52 H Hgb 12.7 D Hct 40.8 MCV 74 L MCH 23.1 L MCHC 31.2 L RDW 24.5 H Plt Count 472 H Seg Neutrophils % Not Reportable Sodium 139.6 Potassium 4.3 Chloride 107 Carbon Dioxide 24 Anion Gap 9 BUN 17 Creatinine 0.86 0.84 Est GFR ( Amer) > 60 > 60 Glucose 270 H Calcium 8.4 06/12/19 09:50 Foot - Left Gram Stain - Final Impressions: Chest X-Ray 06/11/19 07:55 IMPRESSION: Possible infiltrate left lower lobe. Foot X-Ray 06/11/19 08:19 IMPRESSION: Cellulitis. Fracture proximal 2nd phalanx, possibly pathologic secondary to osteomyelitis. Assessment & Plan - Diagnosis (1) Cellulitis and abscess of foot Is this a current diagnosis for this admission?: Yes Plan: Impression: 12 hours status post left transmetatarsal amputation for a septic foot with acceptable condition of exposed skin and deep tissue at the open wound; persisting leukocytosis. No evidence of ascending cellulitis. Recommendations: 1. Wound redressed today. No indication for additional surgery today; I explained to the patient that additional event, possible below the knee amputation may be required in the future. 2. Continue local wound care; open wound dressed with Xeroform, 4 x 4's Kerlix. . Keep leg elevated. - Time Time Spent with patient: 15-24 minutes
[2019-06-14] MEDS: VANCOMYCIN HCL 750 MG in DEXTROSE 5%-WATER 250 ML IV SCH (16:59)
[2019-06-14] MEDS ORDERED: NITROGLYCERIN 0.4 MG/TAB 25 TAB/BOTTLE SL PRN ×2 (18:56→19:05)
--- NOTE | 2019-06-14 19:03 | PDOC PROGRESS REPORT ---
Subjective Progress Note for:: 06/14/19 Subjective:: ORACIO PEDROZA is a 84 year old female with a history of diabetes. She states that she noticed some discomfort in the foot several days ago. The foot slowly worsen. Eventually there was swelling and redness. There was blood on the floor when she walked. She reports having had a fever but did not check her temperature. She has an elevated white count as well as what looks like a diabetic foot ulcer. She was referred to the hospitalist service and started on antibiotics in the emergency department. no acute events overnight. Reason For Visit: SEPSIS,CELLULITIS AND ABSCESS OF FOOT Physical Exam Vital Signs: Temp Pulse Resp BP Pulse Ox 98.4 F 79 16 171/61 H 95 06/14/19 07:50 06/14/19 14:00 06/14/19 07:50 06/14/19 07:50 06/14/19 07:50 Intake & Output 06/13/19 06/14/19 06/15/19 06:59 06:59 06:59 Intake Total 1366 1636 1262 Balance 1366 1636 1262 Weight 80.6 kg 79.2 kg General appearance: PRESENT: obese Respiratory exam: PRESENT: clear to auscultation carmen. ABSENT: rales, rhonchi, wheezes Cardiovascular exam: PRESENT: RRR. ABSENT: diastolic murmur, rubs, systolic murmur GI/Abdominal exam: PRESENT: normal bowel sounds, soft. ABSENT: distended, guarding, mass, organolmegaly, rebound, tenderness Musculoskeletal exam: PRESENT: other - lt metatarsal ampuation. Neurological exam: PRESENT: alert, awake, oriented to person, oriented to place, oriented to time, oriented to situation, CN II-XII grossly intact. ABSENT: motor sensory deficit Skin exam: PRESENT: dry, intact, warm. ABSENT: cyanosis, rash Results Laboratory Results: 06/14/19 05:29 06/14/19 05:29 06/14/19 06/14/19 06/14/19 05:29 05:29 05:29 WBC 36.9 H* RBC 5.52 H Hgb 12.7 D Hct 40.8 MCV 74 L MCH 23.1 L MCHC 31.2 L RDW 24.5 H Plt Count 472 H Seg Neutrophils % Not Reportable Sodium 139.6 Potassium 4.3 Chloride 107 Carbon Dioxide 24 Anion Gap 9 BUN 17 Creatinine 0.86 0.84 Est GFR ( Amer) > 60 > 60 Glucose 270 H Calcium 8.4 06/12/19 09:50 Foot - Left Gram Stain - Final Impressions: Chest X-Ray 06/11/19 07:55 IMPRESSION: Possible infiltrate left lower lobe. Foot X-Ray 06/11/19 08:19 IMPRESSION: Cellulitis. Fracture proximal 2nd phalanx, possibly pathologic secondary to osteomyelitis. Assessment and Plan - Diagnosis (1) Diabetic infection of left foot Is this a current diagnosis for this admission?: Yes Plan: Left diabetic foot infection due to MRSA. Day 1 status post left TMA. Wound culture positive for gram-positive cocci. Pending sensitivity. Day 3 IV antibiotics. Day 3 IV cefepime. Day 3 IV vancomycin. Continue empiric IV antibiotics. Continue wound culture. Surgery following. Recommendations will be noted. (2) Cellulitis and abscess of foot Is this a current diagnosis for this admission?: Yes Plan: As above. (3) CAD (coronary artery disease) Qualifiers: Coronary Disease-Associated Artery/Lesion type: [place] artery [place] vs. transplanted heart: [place] heart Associated angina: without angina Qualified Code(s): I25.10 - Atherosclerotic heart disease of [place] coronary artery wit hout angina pectoris Is this a current diagnosis for this admission?: Yes Plan: Denies any anginal symptoms. Continue DAPT, statins, beta-blockers and ranolazine. Outpatient PCP and cardiology follow-up. (4) CLL (chronic lymphocytic leukemia) Is this a current diagnosis for this admission?: Yes Plan: History of myelodysplasia. 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 Chronic leukocytosis. Not on chemotherapy. Hematology consulted. No treatment planned at this point. Follow-up with hematology as outpatient. (5) Chronic diastolic (congestive) heart failure Is this a current diagnosis for this admission?: Yes Plan: Euvolemic. Does not appear to be exacerbated. History of diastolic heart failure. Continue cardiac diet, beta-blockers, and diuretics. 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 03/23/2019. Hemoglobin A1c 9.1. Home meds are Levemir 22 units subcutaneous twice daily, Januvia 100 mg p.o. daily. Continue basal, prandial and sliding scale insulin, Accu-Chek, hypoglycemia protocol, diabetic diet. Adjust dosage as needed. Restart home meds upon discharge, outpatient PCP follow-up.
[2019-06-14] MEDS: ASPIRIN 81 MG TABLET, ENT COATED PO SCH (20:18)
[2019-06-14] MEDS: GABAPENTIN 300 MG CAPSULE PO SCH (21:13)
[2019-06-14] MEDS: ATORVASTATIN CALCIUM 80 MG TABLET PO SCH (21:14)
[2019-06-14] MEDS: TRAZODONE HCL 50 MG TABLET PO SCH (21:14)
[2019-06-14] MEDS: RANOLAZINE 500 MG TAB.SR.12H PO SCH (21:14)
[2019-06-14] MEDS ORDERED: (PENDING PHARMACY ID) (Rosuvastatin Calcium [Crestor] 40 MG) PO SCH (22:00)
[2019-06-14] MEDS: ACETAMINOPHEN 325 MG TABLET PO PRN (22:42)
[2019-06-14] MEDS: HYDRALAZINE HCL INJ/PF 20 MG/1 ML SDV IV PRN (22:43)
[2019-06-15] MEDS: KETOROLAC TROMETHAMINE INJ/PF 30 MG/1 ML SDV IV SCH ×5 (00:27→23:43)
[2019-06-15] MEDS: HEPARIN SOD (PORCINE) 5,000 UNIT/ML 1 ML VIAL SUBCUT SCH ×3 (05:41→21:35)
[2019-06-15] MEDS: VANCOMYCIN HCL 750 MG in DEXTROSE 5%-WATER 250 ML IV SCH ×2 (05:41→17:12)
[2019-06-15] MEDS: PANTOPRAZOLE SODIUM 40 MG TABLET.DR PO SCH (05:42)
[2019-06-15 06:32] LABS: HEMATOCRIT 47.3 % (36.0-47.0); MEAN CORPUSCULAR HEMOGLOBIN 23.6 pg (27.0-33.4); MEAN CORPUSCULAR HGB CONC 31.5 g/dL (32.0-36.0); MEAN CORPUSCULAR VOLUME 75 fl (80-97); PLATELET COUNT 448 10^3/uL (150-450); RED BLOOD COUNT 6.32 10^6/uL (3.72-5.28); RED CELL DISTRIBUTION WIDTH 24.4 % (11.5-14.0)
[2019-06-15 06:35] LABS: WHITE BLOOD COUNT 34.3 10^3/uL (4.0-10.5)
[2019-06-15 06:37] LABS: HEMOGLOBIN 14.9 g/dL (12.0-15.5)
[2019-06-15 06:38] LABS: ALBUMIN 3.1 g/dL (3.5-5.0); ALKALINE PHOSPHATASE 251 U/L (38-126); ANION GAP 9 (5-19); ASPARTATE AMINO TRANSFERASE 25 U/L (14-36); BILIRUBIN,DIRECT 0.3 mg/dL (0.0-0.4); BILIRUBIN,TOTAL 0.6 mg/dL (0.2-1.3); BLOOD UREA NITROGEN 17 mg/dL (7-20); CARBON DIOXIDE 25 mmol/L (22-30); CHLORIDE 107 mmol/L (98-107); GLUCOSE 146 mg/dL (75-110); POTASSIUM 4.7 mmol/L (3.6-5.0); TOTAL PROTEIN 7.8 g/dL (6.3-8.2)
[2019-06-15 06:51] LABS: ABSOLUTE LYMPHOCYTES# (MANUAL) 1.7 10^3/uL (0.5-4.7); ABSOLUTE MONOCYTES # (MANUAL) 1.4 10^3/uL (0.1-1.4); ANISOCYTOSIS 3+; BAND NEUTROPHILS % (MANUAL) 4 % (3-5); BASOPHILS % (MANUAL) 0 % (0-2); EOSINOPHILS % (MANUAL) 4 % (0-6); LYMPHOCYTES % (MANUAL) 5 % (13-45); MONOCYTES % (MANUAL) 4 % (3-13); SEGMENTED NEUTROPHILS % (MAN) 83 % (42-78); TOTAL CELLS COUNTED 100
[2019-06-15 06:52] LABS: PLATELET COMMENT ADEQUATE
[2019-06-15] MEDS: INSULIN REG, HUMAN 100 UNIT/ML 3 ML VIAL (PYX) SUBCUT SCH ×4 (07:42→21:35)
[2019-06-15] MEDS: RANOLAZINE 500 MG TAB.SR.12H PO SCH ×2 (09:33→21:36)
[2019-06-15] MEDS: ASPIRIN 81 MG TABLET, ENT COATED PO SCH (09:33)
[2019-06-15] MEDS: FUROSEMIDE 40 MG TABLET PO SCH (09:34)
[2019-06-15] MEDS: GABAPENTIN 300 MG CAPSULE PO SCH ×2 (09:34→21:36)
[2019-06-15] MEDS: DOCUSATE SODIUM 100 MG CAPSULE PO SCH (09:34)
[2019-06-15] MEDS: METOPROLOL TARTRATE 50 MG TABLET PO SCH ×2 (09:34→21:35)
[2019-06-15] MEDS: CLOPIDOGREL BISULFATE 75 MG TABLET PO SCH (09:34)
[2019-06-15] MEDS: SITAGLIPTIN PHOSPHATE 50 MG TABLET PO SCH (09:35)
[2019-06-15] MEDS: CEFEPIME 1 GM/D5W RTU 1 GM/50 ML RTUPB IV SCH ×2 (09:36→21:34)
[2019-06-15] MEDS: SERTRALINE HCL 50 MG TABLET PO SCH (09:36)
[2019-06-15] MEDS: INSULIN GLARGINE,HUM.REC.ANLOG 1,000 UNIT/10 ML VIAL SUBCUT SCH ×2 (09:36→21:34)
[2019-06-15] MEDS: CLOTRIMAZOLE/BETAMETHASONE DIP CREAM 15 GM TOP SCH ×2 (09:37→17:12)
[2019-06-15] MEDS ORDERED: (PENDING PHARMACY ID) (Sertraline Hcl [Zoloft] 25 MG) PO SCH (10:00)
--- NOTE | 2019-06-15 11:56 | PDOC PROGRESS REPORT ---
Subjective Progress Note for:: 06/15/19 Subjective:: pains along TMA left foot Reason For Visit: SEPSIS,CELLULITIS AND ABSCESS OF FOOT Physical Exam Vital Signs: Temp Pulse Resp BP Pulse Ox 36.7 F L 97 16 140/80 H 98 06/15/19 04:26 06/15/19 07:00 06/14/19 16:51 06/15/19 04:35 06/15/19 04:26 Intake & Output 06/14/19 06/15/19 06/16/19 06:59 06:59 06:59 Intake Total 1636 1552 300 Balance 1636 1552 300 Weight 79.2 kg 81.1 kg Exam: Dressings changed. The stump look fairly vascularized but the foot and heel more edema and erythema. No gross drainage Results Laboratory Results: 06/15/19 05:39 06/15/19 05:39 06/15/19 06/15/19 05:39 05:39 WBC 34.3 H* RBC 6.32 H Hgb 14.9 D Hct 47.3 H MCV 75 L MCH 23.6 L MCHC 31.5 L RDW 24.4 H Plt Count 448 Seg Neutrophils % Not Reportable Sodium 141.0 Potassium 4.7 Chloride 107 Carbon Dioxide 25 Anion Gap 9 BUN 17 Creatinine 1.04 Est GFR ( Amer) > 60 Glucose 146 H Calcium 9.0 Magnesium 1.9 Total Bilirubin 0.6 AST 25 Alkaline Phosphatase 251 H Total Protein 7.8 Albumin 3.1 L 06/13/19 17:08 Foot - Left Gram Stain - Final 06/12/19 09:50 Foot - Left Gram Stain - Final Impressions: Chest X-Ray 06/11/19 07:55 IMPRESSION: Possible infiltrate left lower lobe. Foot X-Ray 06/11/19 08:19 IMPRESSION: Cellulitis. Fracture proximal 2nd phalanx, possibly pathologic secondary to osteomyelitis. Assessment & Plan - Diagnosis (1) Cellulitis and abscess of foot Is this a current diagnosis for this admission?: Yes (2) Sepsis Qualifiers: Sepsis type: sepsis due to unspecified organism Acute respiratory failure type: unspecified Severe sepsis shock status: without septic shock - Time Time Spent with patient: 15-24 minutes - Inpatient Certification Medical Necessity: Need Close Monitoring Due to Risk of Patient Decompensation, Need For IV Fluids, Need for IV Antibiotics - Plan Summary Plan Summary: POD 2 post left TMA WBC remains markedly elevated despite removing most of the infection with the TMA. Foot remains erythematous, not quite sure if WBC all due to the infection or underlying hematology dysfunction. Will consult Hematology Old records showed markedly elevated WBC
--- NOTE | 2019-06-15 17:12 | PDOC CONSULTATION ---
Consultation Consult Date: 06/15/19 Provider Consulted: LAUREN GRIMES Consult reason:: Hematology/Oncology consultation was requested for patient with chronic leukocytosis. History of Present Illness Admission Date/PCP: 06/11/19 11:44 SOFI GUERRIER MD History of Present Illness: ORACIO PEDROZA is a 84 year old female who underwent bone marrow biopsy 11/04/2017 which showed signs of early myelofibrosis. She has had an elevated WBC count in the 30-55 range over the last 2 years without much change. She was admitted to the hospital with pain in her foot and has now undergone partial left foot amputation for chronic diabetic ulcers. Today, she states that it is still painful and they are talking about taking her back to the OR to close the wound, which remains open. Otherwise, she has no new complaints. Past Medical History Cardiac Medical History: Reports: Atrial Fibrillation, Congestive Heart Failure, Coronary Artery Disease, Myocardial Infarction - x2, Hyperlipidema, Hypertension, Pulmonary Embolism - Distant history Pulmonary Medical History: Denies: Asthma, Chronic Obstructive Pulmonary Disease (COPD) Neurological Medical History: Denies: Seizures Endocrine Medical History: Reports: Diabetes Mellitus Type 1, Diabetes Mellitus Type 2 Denies: Hyperthyroidism, Hypothyroidism Malignancy Medical History: Reports: Skin Cancer - Excised from her nose 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 Past Surgical History Past Surgical History: Reports: Appendectomy, Cholecystectomy, Hysterectomy, Tonsillectomy, Vascular Surgery, Other - Cardiac loop recorder, bilateral cataract surgery, hemorrhoidectomy Social History Lives with: Family Smoking Status: Unknown if Ever Smoked Electronic Cigarette use?: - unknown Frequency of Alcohol Use: None Hx Recreational Drug Use: - unkown Drugs: None Hx Prescription Drug Abuse: - unknown - Advance Directive Resuscitation Status: Do Not Resuscitate Family History Family History: CAD, COPD, DM, Hyperlipidemia, Hypertension, Malignancy - Father with lung cancer. Cousin with leukemia. 3 brothers with unknown cancers. Mother also of unknown type of cancer., Other Parental Family History Reviewed: Yes - Father with DM, HTN, Lung cancer. Mother of old age. Children Family History Reviewed: Yes Sibling(s) Family History Reviewed.: Yes Medication/Allergy Home Medications: Aspirin [Ecotrin 81 mg EC Tablet] 81 mg PO DAILY 06/11/19 Buspirone HCl [Buspar 15 mg Tablet] 15 mg PO Q12 06/11/19 Clopidogrel Bisulfate [Plavix 75 mg Tablet] 75 mg PO DAILY 06/11/19 Docusate Sodium [Colace 100 mg Capsule] 100 mg PO DAILY 06/11/19 Furosemide [Lasix 40 mg Tablet] 40 mg PO DAILY 06/11/19 Gabapentin [Neurontin 300 mg Capsule] 300 mg PO Q12 06/11/19 Hydroxyzine HCl [Atarax 25 mg Tablet] 25 mg PO Q8 06/11/19 Insulin Detemir [Levemir] 22 units SQ BID 06/11/19 Loperamide HCl [Imodium 2 mg Capsule] 2 mg PO Q6HP PRN 06/11/19 Nitroglycerin 0.4 mg SL Q5MP PRN 06/11/19 Nystatin [Mycostatin Cream 15 gm] 1 applic TOP BID 06/11/19 Nystatin [Mycostatin Topical Powder 15 gm] 1 applic TOP BID 06/11/19 Ondansetron [Zofran Odt 4 mg Tablet] 4 mg PO Q8HP PRN 06/11/19 Pantoprazole Sodium [Protonix [address] Tablet] 40 mg PO DAILY 06/11/19 Polyethylene Glycol 3350 [Miralax Powder 17 gm/Packet] 17 gm PO DAILY 06/11/19 Ranolazine [Ranolazine ER] 500 mg PO Q12 06/11/19 Rosuvastatin Calcium [Crestor] 40 mg PO QHS 06/11/19 Sennosides/Docusate Sodium [Senna Plus 8.6-50 mg Tablet] 1 tab PO DAILYP PRN 06/11/19 Sertraline HCl [Zoloft] 25 mg PO DAILY 06/11/19 Sitagliptin Phosphate [Januvia] 100 mg PO DAILY 06/11/19 Trazodone HCl [Desyrel 50 mg Tablet] 50 mg PO QHS 06/11/19 Allergies/Adverse Reactions: morphine Allergy (Mild, Verified 04/06/19 15:24) Penicillins Allergy (Unknown, Verified 06/11/19 13:16) Review of Systems Constitutional: ABSENT: fever(s), headache(s) Eyes: ABSENT: visual disturbances Ears: ABSENT: hearing changes Nose, Mouth, and Throat: ABSENT: sore throat Cardiovascular: PRESENT: chest pain Respiratory: ABSENT: dyspnea Gastrointestinal: ABSENT: constipation, nausea Genitourinary: ABSENT: dysuria Musculoskeletal: PRESENT: as per HPI Integumentary: PRESENT: as per HPI Neurological: ABSENT: abnormal speech, memory loss Hematologic/Lymphatic: ABSENT: easy bruising Physical Exam Vital Signs: Temp Pulse Resp BP Pulse Ox 36.7 F L 86 16 140/80 H 98 06/15/19 04:26 06/15/19 14:00 06/14/19 16:51 06/15/19 04:35 06/15/19 04:26 Intake & Output 06/14/19 06/15/19 06/16/19 06:59 06:59 06:59 Intake Total 1636 1552 300 Balance 1636 1552 300 Weight 79.2 kg 81.1 kg General appearance: PRESENT: no acute distress, well-developed, well-nourished Exam: 84 year old female. Head exam: PRESENT: normocephalic Eye exam: PRESENT: EOMI Mouth exam: PRESENT: tongue midline Neck exam: ABSENT: lymphadenopathy, tenderness Respiratory exam: PRESENT: clear to auscultation carmen, unlabored Cardiovascular exam: PRESENT: irregular rhythm GI/Abdominal exam: PRESENT: normal bowel sounds, soft. ABSENT: tenderness Extremities exam: PRESENT: other - Left foot dressed. Right ankle with normal pulses. Neurological exam: PRESENT: alert, awake Psychiatric exam: PRESENT: appropriate affect Skin exam: PRESENT: normal color Results Laboratory Results: 06/15/19 05:39 06/15/19 05:39 06/15/19 06/15/19 05:39 05:39 WBC 34.3 H* RBC 6.32 H Hgb 14.9 D Hct 47.3 H MCV 75 L MCH 23.6 L MCHC 31.5 L RDW 24.4 H Plt Count 448 Seg Neutrophils % Not Reportable Sodium 141.0 Potassium 4.7 Chloride 107 Carbon Dioxide 25 Anion Gap 9 BUN 17 Creatinine 1.04 Est GFR ( Amer) > 60 Glucose 146 H Calcium 9.0 Magnesium 1.9 Total Bilirubin 0.6 AST 25 Alkaline Phosphatase 251 H Total Protein 7.8 Albumin 3.1 L 06/13/19 17:08 Foot - Left Gram Stain - Final 06/12/19 09:50 Foot - Left Gram Stain - Final Impressions: Chest X-Ray 06/11/19 07:55 IMPRESSION: Possible infiltrate left lower lobe. Foot X-Ray 06/11/19 08:19 IMPRESSION: Cellulitis. Fracture proximal 2nd phalanx, possibly pathologic secondary to osteomyelitis. Assessment & Plan - Diagnosis (1) Myelodysplasia (myelodysplastic syndrome) Is this a current diagnosis for this admission?: Yes Plan: She has chronic leukocytosis, usually PMNs with mild erythrocytosis as well. She has not yet been on Hydrea or other treatments for this. No treatment currently recommended. I would be happy to see her again as outpatient and re-evaluate at that time. Please call with any questions or concerns.
--- NOTE | 2019-06-15 17:44 | PDOC PROGRESS REPORT ---
Subjective Progress Note for:: 06/15/19 Subjective:: ORACIO PEDROZA is a 84 year old female with a history of diabetes. She states that she noticed some discomfort in the foot several days ago. The foot slowly worsen. Eventually there was swelling and redness. There was blood on the floor when she walked. She reports having had a fever but did not check her temperature. She has an elevated white count as well as what looks like a diabetic foot ulcer. She was referred to the hospitalist service and started on antibiotics in the emergency department. 06/15/2018. No acute events overnight. Reason For Visit: SEPSIS,CELLULITIS AND ABSCESS OF FOOT Physical Exam Vital Signs: Temp Pulse Resp BP Pulse Ox 36.7 F L 86 16 140/80 H 98 06/15/19 04:26 06/15/19 14:00 06/14/19 16:51 06/15/19 04:35 06/15/19 04:26 Intake & Output 06/14/19 06/15/19 06/16/19 06:59 06:59 06:59 Intake Total 1636 1552 300 Balance 1636 1552 300 Weight 79.2 kg 81.1 kg General appearance: PRESENT: no acute distress, well-developed, well-nourished Respiratory exam: PRESENT: clear to auscultation carmen. ABSENT: rales, rhonchi, wheezes Cardiovascular exam: PRESENT: RRR. ABSENT: diastolic murmur, rubs, systolic murmur GI/Abdominal exam: PRESENT: normal bowel sounds, soft. ABSENT: distended, guarding, mass, organolmegaly, rebound, tenderness Musculoskeletal exam: PRESENT: other - Left foot TMA. Open surgical wound, erythematous with some necrotic area tissue. No active discharge Results Laboratory Results: 06/15/19 05:39 06/15/19 05:39 06/15/19 06/15/19 05:39 05:39 WBC 34.3 H* RBC 6.32 H Hgb 14.9 D Hct 47.3 H MCV 75 L MCH 23.6 L MCHC 31.5 L RDW 24.4 H Plt Count 448 Seg Neutrophils % Not Reportable Sodium 141.0 Potassium 4.7 Chloride 107 Carbon Dioxide 25 Anion Gap 9 BUN 17 Creatinine 1.04 Est GFR ( Amer) > 60 Glucose 146 H Calcium 9.0 Magnesium 1.9 Total Bilirubin 0.6 AST 25 Alkaline Phosphatase 251 H Total Protein 7.8 Albumin 3.1 L 06/13/19 17:08 Foot - Left Gram Stain - Final 06/12/19 09:50 Foot - Left Gram Stain - Final Impressions: Chest X-Ray 06/11/19 07:55 IMPRESSION: Possible infiltrate left lower lobe. Foot X-Ray 06/11/19 08:19 IMPRESSION: Cellulitis. Fracture proximal 2nd phalanx, possibly pathologic secondary to osteomyelitis. Assessment and Plan - Diagnosis (1) Diabetic infection of left foot Is this a current diagnosis for this admission?: Yes Plan: Left diabetic foot infection due to MRSA. Day 2 status post left TMA. Wound culture positive for MRSA. Day 4 IV antibiotics. Received 4 days of IV cefepime. DC cefepime on 06/15/2019. Day 3 IV cefepime. Day 4 IV vancomycin. Continue empiric IV antibiotics. Continue wound culture. Surgery following. Recommendations will be noted. (2) Cellulitis and abscess of foot Is this a current diagnosis for this admission?: Yes Plan: As above. (3) CAD (coronary artery disease) Qualifiers: Coronary Disease-Associated Artery/Lesion type: [place] artery [place] vs. transplanted heart: [place] heart Associated angina: without angina Qualified Code(s): I25.10 - Atherosclerotic heart disease of [place] coronary artery with out angina pectoris Is this a current diagnosis for this admission?: Yes Plan: Denies any anginal symptoms. Continue DAPT, statins, beta-blockers and ranolazine. Outpatient PCP and cardiology follow-up. (4) CLL (chronic lymphocytic leukemia) Is this a current diagnosis for this admission?: Yes Plan: History of myelodysplasia. Bone marrow biopsy 11/04/2018 positive for myel ofibrosis. Chronic leukocytosis. Not on chemotherapy. Hematology consulted. No treatment planned at this point. Follow-up with hematology as outpatient. (5) Chronic diastolic (congestive) heart failure Is this a current diagnosis for this admission?: Yes Plan: Euvolemic. Does not appear to be exacerbated. History of diastolic heart failure. Continue cardiac diet, beta-blockers, and diuretics. 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 03/23/2019. Hemoglobin A1c 9.1. Home meds are Levemir 22 units subcutaneous twice daily, Januvia 100 mg p.o. daily. Continue basal, prandial and sliding scale insulin, Accu-Chek, hypoglycemia protocol, diabetic diet. Adjust dosage as needed. Restart home meds upon discharge, outpatient PCP follow-up.
[2019-06-15] MEDS: BUSPIRONE HCL 10 MG TABLET PO SCH (21:36)
[2019-06-15] MEDS: TRAZODONE HCL 50 MG TABLET PO SCH (21:36)
[2019-06-15] MEDS: ATORVASTATIN CALCIUM 80 MG TABLET PO SCH (21:36)
[2019-06-16] MEDS: ACETAMINOPHEN 325 MG TABLET PO PRN (01:30)
[2019-06-16] MEDS: HEPARIN SOD (PORCINE) 5,000 UNIT/ML 1 ML VIAL SUBCUT SCH ×3 (05:42→21:16)
[2019-06-16] MEDS: KETOROLAC TROMETHAMINE INJ/PF 30 MG/1 ML SDV IV SCH ×3 (05:47→18:54)
[2019-06-16] MEDS: PANTOPRAZOLE SODIUM 40 MG TABLET.DR PO SCH (05:48)
[2019-06-16] MEDS: VANCOMYCIN HCL 750 MG in DEXTROSE 5%-WATER 250 ML IV SCH ×2 (06:20→18:52)
[2019-06-16 06:35] LABS: HEMATOCRIT 42.1 % (36.0-47.0); HEMOGLOBIN 13.1 g/dL (12.0-15.5); MEAN CORPUSCULAR HEMOGLOBIN 22.9 pg (27.0-33.4); MEAN CORPUSCULAR HGB CONC 31.1 g/dL (32.0-36.0); MEAN CORPUSCULAR VOLUME 74 fl (80-97); PLATELET COUNT 427 10^3/uL (150-450); RED CELL DISTRIBUTION WIDTH 23.7 % (11.5-14.0)
[2019-06-16 06:54] LABS: ALBUMIN 2.8 g/dL (3.5-5.0); ALKALINE PHOSPHATASE 232 U/L (38-126); ANION GAP 9 (5-19); ASPARTATE AMINO TRANSFERASE 30 U/L (14-36); BILIRUBIN,DIRECT 0.4 mg/dL (0.0-0.4); BILIRUBIN,TOTAL 0.9 mg/dL (0.2-1.3); BLOOD UREA NITROGEN 22 mg/dL (7-20); CARBON DIOXIDE 24 mmol/L (22-30); CHLORIDE 106 mmol/L (98-107); GLUCOSE 148 mg/dL (75-110); POTASSIUM 4.7 mmol/L (3.6-5.0); TOTAL PROTEIN 7.3 g/dL (6.3-8.2)
[2019-06-16 06:55] LABS: VANCOMYCIN,TROUGH 16.8 ug/mL (5.0-20.0)
[2019-06-16 07:21] LABS: ABSOLUTE LYMPHOCYTES# (MANUAL) 0.9 10^3/uL (0.5-4.7); ABSOLUTE MONOCYTES # (MANUAL) 2.6 10^3/uL (0.1-1.4); ANISOCYTOSIS 3+; BAND NEUTROPHILS % (MANUAL) 4 % (3-5); BASOPHILS % (MANUAL) 0 % (0-2); EOSINOPHILS % (MANUAL) 1 % (0-6); LYMPHOCYTES % (MANUAL) 2 % (13-45); MONOCYTES % (MANUAL) 6 % (3-13); SEGMENTED NEUTROPHILS % (MAN) 87 % (42-78); TOTAL CELLS COUNTED 100
[2019-06-16 07:22] LABS: PLATELET COMMENT ADEQUATE
[2019-06-16] MEDS: INSULIN REG, HUMAN 100 UNIT/ML 3 ML VIAL (PYX) SUBCUT SCH ×4 (09:15→21:30)
[2019-06-16] MEDS: CEFEPIME 1 GM/D5W RTU 1 GM/50 ML RTUPB IV SCH (10:21)
[2019-06-16] MEDS: BUSPIRONE HCL 10 MG TABLET PO SCH ×2 (10:27→21:30)
[2019-06-16] MEDS: CLOPIDOGREL BISULFATE 75 MG TABLET PO SCH (10:27)
[2019-06-16] MEDS: SITAGLIPTIN PHOSPHATE 50 MG TABLET PO SCH (10:28)
[2019-06-16] MEDS: METOPROLOL TARTRATE 50 MG TABLET PO SCH (10:28)
[2019-06-16] MEDS: DOCUSATE SODIUM 100 MG CAPSULE PO SCH (10:28)
[2019-06-16] MEDS: ASPIRIN 81 MG TABLET, ENT COATED PO SCH (10:28)
[2019-06-16] MEDS: RANOLAZINE 500 MG TAB.SR.12H PO SCH ×2 (10:28→21:30)
[2019-06-16] MEDS: GABAPENTIN 300 MG CAPSULE PO SCH ×2 (10:28→21:30)
[2019-06-16] MEDS: SERTRALINE HCL 50 MG TABLET PO SCH (10:29)
[2019-06-16] MEDS: FUROSEMIDE 40 MG TABLET PO SCH (10:29)
[2019-06-16] MEDS: INSULIN GLARGINE,HUM.REC.ANLOG 1,000 UNIT/10 ML VIAL SUBCUT SCH ×2 (10:31→21:31)
[2019-06-16] MEDS: CLOTRIMAZOLE/BETAMETHASONE DIP CREAM 15 GM TOP SCH ×2 (10:36→18:55)
--- NOTE | 2019-06-16 12:35 | PDOC PROGRESS REPORT ---
Subjective Progress Note for:: 06/16/19 Subjective:: ORACIO PEDROZA is a 84 year old female with a history of diabetes. She states that she noticed some discomfort in the foot several days ago. The foot slowly worsen. Eventually there was swelling and redness. There was blood on the floor when she walked. She reports having had a fever but did not check her temperature. She has an elevated white count as well as what looks like a diabetic foot ulcer. She was referred to the hospitalist service and started on antibiotics in the emergency department. 06/15/2018. No acute events overnight. 06/16/2019. No acute events overnight. Denies any fever, chills, nausea, vomiting, diarrhea, constipation or any urinary symptoms. Left lower extremity pain improving. Patient is waiting for wound closure by surgery. Reason For Visit: SEPSIS,CELLULITIS AND ABSCESS OF FOOT Physical Exam Vital Signs: Temp Pulse Resp BP Pulse Ox 99.0 F 87 19 154/57 H 93 06/16/19 07:47 06/16/19 07:47 06/16/19 07:47 06/16/19 07:47 06/16/19 07:47 Intake & Output 06/15/19 06/16/19 06/17/19 06:59 06:59 06:59 Intake Total 1552 1823 250 Balance 1552 1823 250 Weight 81.1 kg 81.3 kg General appearance: PRESENT: obese Head exam: PRESENT: atraumatic, normocephalic Respiratory exam: PRESENT: clear to auscultation carmen. ABSENT: rales, rhonchi, wheezes Cardiovascular exam: PRESENT: RRR. ABSENT: diastolic murmur, rubs, systolic murmur GI/Abdominal exam: PRESENT: normal bowel sounds, soft. ABSENT: distended, guarding, mass, organolmegaly, rebound, tenderness Extremities exam: PRESENT: full ROM, other - Left foot TMA. Open surgical wound, erythematous with some necrotic area tissue. No active discharge. ABSENT: calf tenderness, clubbing, pedal edema Neurological exam: PRESENT: alert, awake, oriented to person, oriented to place, oriented to time, oriented to situation, CN II-XII grossly intact. ABSENT: jazmín r sensory deficit Results Laboratory Results: 06/16/19 06:01 06/16/19 06:01 06/16/19 06/16/1906/16/19 06:01 06:01 06:01 WBC 43.0 H* RBC 5.70 H Hgb 13.1 Hct 42.1 MCV 74 L MCH 22.9 L MCHC 31.1 L RDW 23.7 H Plt Count 427 Seg Neutrophils % Not Reportable Sodium 138.7 Potassium 4.7 Chloride 106 Carbon Dioxide 24 Anion Gap 9 BUN 22 H Creatinine Cancelled 1.04 Est GFR ( Amer) Cancelled > 60 Est GFR (Non-Af Amer) Cancelled Glucose 148 H Calcium 9.0 Magnesium 1.8 Total Bilirubin 0.9 AST 30 Alkaline Phosphatase 232 H Total Protein 7.3 Albumin 2.8 L 06/13/19 17:08 Foot - Left Gram Stain - Final 06/11/19 08:04 Blood Blood Culture - Final NO GROWTH IN 5 DAYS 06/11/19 08:05 Blood Blood Culture - Final NO GROWTH IN 5 DAYS 06/12/19 09:50 Foot - Left Gram Stain - Final Impressions: Chest X-Ray 06/11/19 07:55 IMPRESSION: Possible infiltrate left lower lobe. Foot X-Ray 06/11/19 08:19 IMPRESSION: Cellulitis. Fracture proximal 2nd phalanx, possibly pathologic secondary to osteomyelitis. Assessment and Plan - Diagnosis (1) Diabetic infection of left foot Is this a current diagnosis for this admission?: Yes Plan: Left diabetic foot infection due to MRSA. Day 3 status post left TMA. Wound culture positive for MRSA. Day 5 IV antibiotics. Received 4 days of IV cefepime. DC cefepime on 06/15/2019. Day 3 IV cefepime. Day 5 IV vancomycin. Pending wound reclosure by surgery. Patient could be switched to p.o. once surgery has signed off. Continue empiric IV antibiotics. Continue wound culture. Surgery following. Recommendations will be noted. (2) Cellulitis and abscess of foot Is this a current diagnosis for this admission?: Yes Plan: As above. (3) CAD (coronary artery disease) Qualifiers: Coronary Disease-Associated Artery/Lesion type: [place] artery [place] vs. transplanted heart: [place] heart Associated angina: without angina Qualified Code(s): I25.10 - Atherosclerotic heart disease of [place] coronary artery without angina pectoris Is this a current diagnosis for this admission?: Yes Plan: Denies any anginal symptoms. Continue DAPT, statins, beta-blockers, KIKE and ranolazine. Uptitrate beta-blockers and KIKE as tolerated. Outpatient PCP and cardiology follow-up. 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 Chronic leukocytosis. Not on chemotherapy. Hematology consulted. No treatment planned at this point. Follow-up with hematology as outpatient. (5) Chronic diastolic (congestive) heart failure Is this a current diagnosis for this admission?: Yes Plan: Euvolemic. Does not appear to be exacerbated. History of diastolic heart failure. Continue cardiac diet, beta-blockers, and diuretics. (6) Diabetes Qualifiers: Diabetes mellitus type: type 2 Diabetes mellitus nursing home insulin use: unspecified nursing home insulin use status Diabetes mellitus complication status: with hyperglycemia Qualified Code(s): E11.65 - Type 2 diabetes mellitus with hyperglycemia Is this a current diagnosis for this admission?: Yes Plan: Not controlled. 03/23/2019. Hemoglobin A1c 9.1. Home meds are Levemir 22 units subcutaneous twice daily, Januvia 100 mg p.o. daily. Continue basal, prandial and sliding scale insulin, Accu-Chek, hypoglycemia protocol, diabetic diet. Adjust dosage as needed. Restart home meds upon discharge, outpatient PCP follow-up.
[2019-06-16] MEDS: LISINOPRIL 5 MG TABLET PO SCH (13:33)
--- NOTE | 2019-06-16 18:29 | PDOC PROGRESS REPORT ---
Subjective Progress Note for:: 06/16/19 Subjective:: Pains along the left TMA Reason For Visit: SEPSIS,CELLULITIS AND ABSCESS OF FOOT Physical Exam Vital Signs: Temp Pulse Resp BP Pulse Ox 99.0 F 97 19 133/59 H 92 06/16/19 12:27 06/16/19 14:00 06/16/19 12:27 06/16/19 12:27 06/16/19 12:27 Intake & Output 06/15/19 06/16/19 06/17/19 06:59 06:59 06:59 Intake Total 1552 1823 726 Balance 1552 1823 726 Weight 81.1 kg 81.3 kg 81.3 kg Exam: Left TMA dressing removed. Is noted to be erythematous almost close to the ankle. The base of the plantar area has some necrotic area tissue. Her white count is noted to be markedly elevated more than yesterday. Results Laboratory Results: 06/16/19 06:01 06/16/19 06:01 06/16/19 06/16/19 06/16/19 06:01 06:01 06:01 WBC 43.0 H* RBC 5.70 H Hgb 13.1 Hct 42.1 MCV 74 L MCH 22.9 L MCHC 31.1 L RDW 23.7 H Plt Count 427 Seg Neutrophils % Not Reportable Sodium 138.7 Potassium 4.7 Chloride 106 Carbon Dioxide 24 Anion Gap 9 BUN 22 H Creatinine Cancelled 1.04 Est GFR ( Amer) Cancelled > 60 Est GFR (Non-Af Amer) Cancelled Glucose 148 H Calcium 9.0 Magnesium 1.8 Total Bilirubin 0.9 AST 30 Alkaline Phosphatase 232 H Total Protein 7.3 Albumin 2.8 L 06/13/19 17:08 Foot - Left Gram Stain - Final 06/11/19 08:04 Blood Blood Culture - Final NO GROWTH IN 5 DAYS 06/11/19 08:05 Blood Blood Culture - Final NO GROWTH IN 5 DAYS 06/12/19 09:50 Foot - Left Gram Stain - Final Impressions: Chest X-Ray 06/11/19 07:55 IMPRESSION: Possible infiltrate left lower lobe. Foot X-Ray 06/11/19 08:19 IMPRESSION: Cellulitis. Fracture proximal 2nd phalanx, possibly pathologic secondary to osteomyelitis. Assessment & Plan - Diagnosis (1) Cellulitis and abscess of foot Is this a current diagnosis for this admission?: Yes (2) Sepsis Qualifiers: Sepsis type: sepsis due to unspecified organism Acute respiratory failure type: unspecified Severe sepsis shock status: without septic shock Is this a current diagnosis for this admission?: Yes - Time Time Spent with patient: 15-24 minutes - Inpatient Certification Medical Necessity: Need for IV Antibiotics, Need for Surgery - Plan Summary Plan Summary: I have talked to her daughter who is a retired physical therapist about possible below-knee amputation. Since the foot itself is not getting any better I think we should think about below-knee amputation before the infection further extends higher. The daughter agrees to our plan to do below-knee amputation as early as tomorrow. We will keep her n.p.o. tonight and will reevaluate the wound with Dr. Garcia and possibly do a BKA
[2019-06-16] MEDS: METOPROLOL SUCCINATE 50 MG TAB.SR.24H PO SCH (21:30)
[2019-06-16] MEDS: TRAZODONE HCL 50 MG TABLET PO SCH (21:30)
[2019-06-16] MEDS: ATORVASTATIN CALCIUM 80 MG TABLET PO SCH (21:30)
[2019-06-16] MEDS ORDERED: PHYTONADIONE INJ 10 MG/1 ML AMPULE SUBCUT ONE (21:40)
[2019-06-17] MEDS: KETOROLAC TROMETHAMINE INJ/PF 30 MG/1 ML SDV IV SCH ×3 (00:49→14:09)
[2019-06-17 06:12] LABS: INTERNATIONAL RATION (INR) 1.36; PROTHROMBIN TIME 16.9 SEC (11.4-15.4)
[2019-06-17 06:16] LABS: HEMATOCRIT 41.6 % (36.0-47.0); MEAN CORPUSCULAR HEMOGLOBIN 23.3 pg (27.0-33.4); MEAN CORPUSCULAR HGB CONC 31.2 g/dL (32.0-36.0); MEAN CORPUSCULAR VOLUME 75 fl (80-97); PLATELET COUNT 463 10^3/uL (150-450); RED BLOOD COUNT 5.57 10^6/uL (3.72-5.28); RED CELL DISTRIBUTION WIDTH 23.9 % (11.5-14.0)
[2019-06-17] MEDS: HEPARIN SOD (PORCINE) 5,000 UNIT/ML 1 ML VIAL SUBCUT SCH ×3 (06:22→22:07)
[2019-06-17] MEDS: VANCOMYCIN HCL 750 MG in DEXTROSE 5%-WATER 250 ML IV SCH ×2 (06:23→17:44)
[2019-06-17] MEDS: PANTOPRAZOLE SODIUM 40 MG TABLET.DR PO SCH ×2 (06:24→06:27)
[2019-06-17 06:25] LABS: WHITE BLOOD COUNT 48.8 10^3/uL (4.0-10.5)
[2019-06-17 06:28] LABS: ANION GAP 9 (5-19); BLOOD UREA NITROGEN 26 mg/dL (7-20); CARBON DIOXIDE 25 mmol/L (22-30); CHLORIDE 107 mmol/L (98-107); GLUCOSE 168 mg/dL (75-110)
[2019-06-17 07:12] LABS: ABSOLUTE MONOCYTES # (MANUAL) 4.4 10^3/uL (0.1-1.4); BAND NEUTROPHILS % (MANUAL) 2 % (3-5); BASOPHILS % (MANUAL) 0 % (0-2); EOSINOPHILS % (MANUAL) 2 % (0-6); LYMPHOCYTES % (MANUAL) 2 % (13-45); MONOCYTES % (MANUAL) 9 % (3-13); SEGMENTED NEUTROPHILS % (MAN) 85 % (42-78); TOTAL CELLS COUNTED 100
[2019-06-17 07:14] LABS: ANISOCYTOSIS 3+; SMUDGE CELLS PRESENT
[2019-06-17 07:15] LABS: POLYCHROMASIA SLIGHT
[2019-06-17 07:28] LABS: PLATELET COMMENT INCREASED
[2019-06-17] MEDS ORDERED: NORMAL SALINE 250 ML IV PRN (07:44)
[2019-06-17] MEDS ORDERED: LIDOCAINE 2% INJ-PF (20 MG/ML) 10 ML AMPUL ONE (08:46)
[2019-06-17] MEDS ORDERED: MIDAZOLAM 2 MG/2 ML INJ ONE (08:47)
[2019-06-17] MEDS ORDERED: PROPOFOL INJ 200 MG/20 ML VIAL IV ONE (08:47)
[2019-06-17] MEDS ORDERED: LIDOCAINE 1% INJ-PF (10 MG/ML) 30 ML SDV ONE (09:00)
[2019-06-17] MEDS ORDERED: FENTANYL CITRATE INJ/PF 100 MCG/2 ML AMPUL ONE ×2 (10:14→11:47)
[2019-06-17] MEDS: INSULIN REG, HUMAN 100 UNIT/ML 3 ML VIAL (PYX) SUBCUT SCH ×4 (10:20→22:07)
[2019-06-17] MEDS: INSULIN GLARGINE,HUM.REC.ANLOG 1,000 UNIT/10 ML VIAL SUBCUT SCH ×2 (10:21→22:06)
[2019-06-17] MEDS: DOCUSATE SODIUM 100 MG CAPSULE PO SCH ×2 (10:21→17:45)
[2019-06-17] MEDS: SITAGLIPTIN PHOSPHATE 50 MG TABLET PO SCH (10:21)
[2019-06-17] MEDS: FUROSEMIDE 40 MG TABLET PO SCH (10:21)
[2019-06-17] MEDS: ASPIRIN 81 MG TABLET, ENT COATED PO SCH (10:21)
[2019-06-17] MEDS: BUSPIRONE HCL 10 MG TABLET PO SCH ×2 (10:21→22:06)
[2019-06-17] MEDS: RANOLAZINE 500 MG TAB.SR.12H PO SCH ×2 (10:22→22:08)
[2019-06-17] MEDS: GABAPENTIN 300 MG CAPSULE PO SCH ×2 (10:22→22:07)
[2019-06-17] MEDS: CLOTRIMAZOLE/BETAMETHASONE DIP CREAM 15 GM TOP SCH ×2 (10:22→17:54)
[2019-06-17] MEDS: SERTRALINE HCL 50 MG TABLET PO SCH (10:22)
[2019-06-17] MEDS ORDERED: FENTANYL CITRATE INJ/PF 100 MCG/2 ML AMPUL IV PRN ×2 (10:29)
[2019-06-17] MEDS ORDERED: DIPHENHYDRAMINE HCL 50 MG/ML VIAL IV PRN (10:29)
[2019-06-17] MEDS ORDERED: OXYCODONE-ACETAMINOPHEN 5-325 MG TABLET PO PRN (10:29)
[2019-06-17] MEDS ORDERED: MEPERIDINE HCL/PF INJ 25 MG/1 ML DISP.SYRIN IV PRN (10:29)
[2019-06-17] MEDS ORDERED: PROMETHAZINE HCL INJ 25 MG/1 ML VIAL IV PRN (10:29)
[2019-06-17] MEDS ORDERED: ONDANSETRON HCL INJ/PF 4 MG/2 ML SDV IV PRN (10:29)
--- NOTE | 2019-06-17 11:41 | Operative Report ---
Operative Report DATE OF SURGERY: 06/17/19 PREOPERATIVE DIAGNOSIS: Ischemic left transmetatarsal amputation, open. Myelof ibrosis syndrome POSTOPERATIVE DIAGNOSIS: Same OPERATION: Left below the knee amputation with primary closure SURGEON: LIA MERCADO ANESTHESIA: GA TISSUE REMOVED OR ALTERED: Left foot and lower leg COMPLICATIONS: None ESTIMATED BLOOD LOSS: 300 cc INTRAOPERATIVE FINDINGS: See below PROCEDURE: The patient was seen in the preop holding area with the left leg was marked. She was then taken to the operating room where general anesthesia was induced after several unsuccessful attempts by Dr. Lynn to establish spinal anesthesia. The left foot which was previously wrap was isolated, then the left leg was prepped and draped in sterile fashion with Betadine Surgical plan surgical timeout were conducted. Markings were made on the skin for a standard below the knee amputation, with the anterior incision one hand breath below the anterior tibial tuberosity, and the posterior flap approximately 2 and breaths below the popliteal fossa. The skin was incised with a 10 blade and the subcutaneous tissue divided as encountered. Fascia and muscle divided with electrocautery as encountered. Periosteum of the tibia stripped away with cautery and periosteal elevator. The tibia was transected several centimeters below the anterior tibial tuberosity with the oscillating saw. Further muscle was divided with electrocautery. Neurovascular pedicles were clamped and tied off with 0 silk as encountered. Fibula was exposed, periosteum stripped, and the fibula divided with a similar oscillating saw. The remaining posterior musculature of the lower leg was divided. The peroneal neurovascular bundle was diminutive. The leg was passed off to circulating nurse for eventual pathologic examination. We spent a fair amount of time controlling oozing primarily from venous bleeders. This is performed with 2-0 Vicryl suture. Bone wax was placed in the heel of the inspected tibia because of bleeding. Skin and muscle was viable, and there was no question about the suitability for closure. Rough edges to the inspected fibula smoothed out with Brown and respiratory file. We irrigated the stump again check for any mechanical bleeding there was none. A primary myodesis was performed across the length of the stump with 2-0 Vicryl suture. Subcutaneous tissue approximated with 2-0 Vicryl and skin closed with 3-0 Ethilon, vertical interrupted, and ciera. Xeroform 4 x 4's Kerlix and Ignacio wrap applied. Patient tolerated procedure well; patient had a Silva catheter inserted at the beginning the case with drainage of copious amounts of urine. She remained hemodynamically stable throughout the case and required no hemodynamic support other than IV fluid. She was extubated and taken to the recovery room stable condition. Estimated blood loss 300 cc.
[2019-06-17] MEDS: FENTANYL CITRATE INJ/PF 100 MCG/2 ML AMPUL IV PRN ×2 (11:50→12:05)
[2019-06-17] MEDS ORDERED: ACETAMINOPHEN 1,000 MG/100 ML RTUPB IV ONE (11:53)
[2019-06-17] MEDS ORDERED: HYDROMORPHONE HCL INJ/PF 2 MG/ML AMPULE ONE (12:09)
[2019-06-17 12:44] LABS: INTERNATIONAL RATION (INR) 1.35; PROTHROMBIN TIME 16.8 SEC (11.4-15.4)
[2019-06-17] MEDS: METOPROLOL SUCCINATE 50 MG TAB.SR.24H PO SCH ×2 (13:16→22:06)
[2019-06-17] MEDS: LISINOPRIL 5 MG TABLET PO SCH (13:16)
[2019-06-17] MEDS: CLOPIDOGREL BISULFATE 75 MG TABLET PO SCH (13:17)
[2019-06-17] MEDS: KETOROLAC TROMETHAMINE INJ/PF 30 MG/1 ML SDV IV PRN (13:34)
--- NOTE | 2019-06-17 14:29 | PDOC PROGRESS REPORT ---
Subjective Progress Note for:: 06/17/19 Subjective:: ORACIO PEDROZA is a 84 year old female with a history of diabetes. She states that she noticed some discomfort in the foot several days ago. The foot slowly worsen. Eventually there was swelling and redness. There was blood on the floor when she walked. She reports having had a fever but did not check her temperature. She has an elevated white count as well as what looks like a diabetic foot ulcer. She was referred to the hospitalist service and started on antibiotics in the emergency department. 06/15/2018. No acute events overnight. 06/16/2019. No acute events overnight. Denies any fever, chills, nausea, vomiting, diarrhea, constipation or any urinary symptoms. Left lower extremity pain improving. Patient is waiting for wound closure by surgery. 06/17/2019. No acute events overnight. Patient having left BKA today. Denies any fever, chills, nausea, vomiting, diarrhea, constipation or any urinary symptoms. Reason For Visit: SEPSIS,CELLULITIS AND ABSCESS OF FOOT Physical Exam Vital Signs: Temp Pulse Resp BP Pulse Ox 97.6 F 81 16 129/58 H 100 06/17/19 13:50 06/17/19 14:00 06/17/19 13:50 06/17/19 13:50 06/17/19 13:50 Intake & Output 06/16/19 06/17/19 06/18/19 06:59 06:59 06:59 Intake Total 1823 1711 1350 Output Total 1200 Balance 1823 1711 150 Weight 81.3 kg 83.5 kg General appearance: PRESENT: no acute distress, well-developed, well-nourished Head exam: PRESENT: atraumatic, normocephalic Neck exam: ABSENT: carotid bruit, JVD, lymphadenopathy, thyromegaly Respiratory exam: PRESENT: clear to auscultation carmen. ABSENT: rales, rhonchi, wheezes Cardiovascular exam: PRESENT: RRR. ABSENT: diastolic murmur, rubs, systolic murmur GI/Abdominal exam: PRESENT: normal bowel sounds, soft. ABSENT: distended, guarding, mass, organolmegaly, rebound, tenderness Musculoskeletal exam: PRESENT: other - Left foot TMA, open surgical wound, no drainage. Neurological exam: PRESENT: alert, awake, oriented to person, oriented to place, oriented to time, oriented to situation, CN II-XII grossly intact. ABSENT: motor sensory deficit Results Laboratory Results: 06/17/19 05:52 06/17/19 05:52 06/17/19 06/17/19 06/17/19 05:52 05:52 08:05 WBC 48.8 H* RBC 5.57 H Hgb 13.0 Hct 41.6 MCV 75 L MCH 23.3 L MCHC 31.2 L RDW 23.9 H Plt Count 463 H Seg Neutrophils % Not Reportable Sodium 140.6 Potassium 5.0 Chloride 107 Carbon Dioxide 25 Anion Gap 9 BUN 26 H Creatinine 1.16 Est GFR ( Amer) 54 L Glucose 168 H Calcium 9.0 Magnesium 1.8 Blood Type O NEGATIVE 06/13/19 17:08 Foot - Left Gram Stain - Final 06/13/19 17:08 Foot - Left Wound Culture - Final Mrsa (Meth Resis Staph Aureus) No Anaerobic Organisms 06/12/19 09:50 Foot - Left Gram Stain - Final 06/12/19 09:50 Foot - Left Wound Culture - Final Mrsa (Meth Resis Staph Aureus) Impressions: Chest X-Ray 06/11/19 07:55 IMPRESSION: Possible infiltrate left lower lobe. Foot X-Ray 06/11/19 08:19 IMPRESSION: Cellulitis. Fracture proximal 2nd phalanx, possibly pathologic secondary to osteomyelitis. Assessment and Plan - Diagnosis (1) Diabetic infection of left foot Is this a current diagnosis for this admission?: Yes (2) Cellulitis and abscess of foot Is this a current diagnosis for this admission?: Yes (3) CAD (coronary artery disease) Qualifiers: Coronary Disease-Associated Artery/Lesion type: [place] artery [place] vs. transplanted heart: [place] heart Associated angina: without angina Qualified Code(s): I25.10 - Atherosclerotic heart disease of [place] coronary artery without angina pectoris Is this a current diagnosis for this admission?: Yes (4) CLL (chronic lymphocytic leukemia) Is this a current diagnosis for this admission?: Yes (5) Chronic diastolic (congestive) heart failure Is this a current diagnosis for this admission?: Yes (6) Diabetes Qualifiers: Diabetes mellitus type: type 2 Diabetes mellitus long term care pharmacist insulin use: unspecified long term care pharmacist insulin use status Diabetes mellitus complication status: with hyperglycemia Qualified Code(s): E11.65 - Type 2 diabetes mellitus with hyperglycemia Is this a current diagnosis for this admission?: Yes
[2019-06-17] MEDS: ACETAMINOPHEN 325 MG TABLET PO PRN (17:48)
[2019-06-17] MEDS: ATORVASTATIN CALCIUM 80 MG TABLET PO SCH (22:05)
[2019-06-17] MEDS: TRAZODONE HCL 50 MG TABLET PO SCH (22:07)
[2019-06-18] MEDS: VANCOMYCIN HCL 750 MG in DEXTROSE 5%-WATER 250 ML IV SCH ×2 (05:18→17:35)
[2019-06-18] MEDS: ACETAMINOPHEN 325 MG TABLET PO PRN ×2 (05:18→18:39)
[2019-06-18] MEDS: PANTOPRAZOLE SODIUM 40 MG TABLET.DR PO SCH (05:19)
[2019-06-18] MEDS: HEPARIN SOD (PORCINE) 5,000 UNIT/ML 1 ML VIAL SUBCUT SCH ×3 (05:19→21:37)
[2019-06-18 05:46] LABS: HEMATOCRIT 35.4 % (36.0-47.0); MEAN CORPUSCULAR HEMOGLOBIN 23.3 pg (27.0-33.4); MEAN CORPUSCULAR VOLUME 75 fl (80-97); PLATELET COUNT 477 10^3/uL (150-450); RED BLOOD COUNT 4.73 10^6/uL (3.72-5.28); RED CELL DISTRIBUTION WIDTH 23.8 % (11.5-14.0)
[2019-06-18 05:48] LABS: WHITE BLOOD COUNT 40.7 10^3/uL (4.0-10.5)
[2019-06-18 06:07] LABS: ALBUMIN 2.4 g/dL (3.5-5.0); ALKALINE PHOSPHATASE 267 U/L (38-126); ANION GAP 9 (5-19); ASPARTATE AMINO TRANSFERASE 39 U/L (14-36); BILIRUBIN,DIRECT 0.2 mg/dL (0.0-0.4); BILIRUBIN,TOTAL 0.4 mg/dL (0.2-1.3); BLOOD UREA NITROGEN 26 mg/dL (7-20); CALCIUM 8.5 mg/dL (8.4-10.2); CARBON DIOXIDE 24 mmol/L (22-30); CHLORIDE 107 mmol/L (98-107); GLUCOSE 200 mg/dL (75-110); POTASSIUM 4.9 mmol/L (3.6-5.0); TOTAL PROTEIN 6.4 g/dL (6.3-8.2)
[2019-06-18 07:05] LABS: ABSOLUTE LYMPHOCYTES# (MANUAL) 1.6 10^3/uL (0.5-4.7); ABSOLUTE MONOCYTES # (MANUAL) 0.4 10^3/uL (0.1-1.4); BASOPHILS % (MANUAL) 0 % (0-2); EOSINOPHILS % (MANUAL) 1 % (0-6); LYMPHOCYTES % (MANUAL) 3 % (13-45); MONOCYTES % (MANUAL) 1 % (3-13); SEGMENTED NEUTROPHILS % (MAN) 94 % (42-78); TOTAL CELLS COUNTED 100
[2019-06-18 07:10] LABS: ANISOCYTOSIS 3+; OVALOCYTES SLIGHT; POIKILOCYTOSIS SLIGHT; POLYCHROMASIA SLIGHT; TEAR DROP CELLS SLIGHT
[2019-06-18 07:11] LABS: PLATELET COMMENT INCREASED; PLATELET LARGE PRESENT
[2019-06-18] MEDS: INSULIN REG, HUMAN 100 UNIT/ML 3 ML VIAL (PYX) SUBCUT SCH ×4 (10:35→21:40)
[2019-06-18] MEDS: RANOLAZINE 500 MG TAB.SR.12H PO SCH ×2 (10:35→21:36)
[2019-06-18] MEDS: DOCUSATE SODIUM 100 MG CAPSULE PO SCH ×3 (10:35→17:37)
[2019-06-18] MEDS: SITAGLIPTIN PHOSPHATE 50 MG TABLET PO SCH (10:36)
[2019-06-18] MEDS: FUROSEMIDE 40 MG TABLET PO SCH (10:36)
[2019-06-18] MEDS: ASPIRIN 81 MG TABLET, ENT COATED PO SCH (10:36)
[2019-06-18] MEDS: GABAPENTIN 300 MG CAPSULE PO SCH ×2 (10:36→21:37)
[2019-06-18] MEDS: SERTRALINE HCL 50 MG TABLET PO SCH (10:36)
[2019-06-18] MEDS: METOPROLOL SUCCINATE 50 MG TAB.SR.24H PO SCH ×2 (10:36→21:36)
[2019-06-18] MEDS: CLOPIDOGREL BISULFATE 75 MG TABLET PO SCH (10:37)
[2019-06-18] MEDS: LISINOPRIL 5 MG TABLET PO SCH (10:37)
[2019-06-18] MEDS: BUSPIRONE HCL 10 MG TABLET PO SCH ×2 (10:39→21:36)
[2019-06-18] MEDS: CLOTRIMAZOLE/BETAMETHASONE DIP CREAM 15 GM TOP SCH ×2 (10:40→17:36)
[2019-06-18] MEDS: INSULIN GLARGINE,HUM.REC.ANLOG 1,000 UNIT/10 ML VIAL SUBCUT SCH ×2 (10:40→21:40)
--- NOTE | 2019-06-18 13:57 | PDOC PROGRESS REPORT ---
Subjective Progress Note for:: 06/18/19 Subjective:: Complaining of right phantom limb. Mild pains along the right BKA stump Reason For Visit: SEPSIS,CELLULITIS AND ABSCESS OF FOOT Physical Exam Vital Signs: Temp Pulse Resp BP Pulse Ox 99.1 F 87 17 164/61 H 98 06/18/19 11:10 06/18/19 11:10 06/18/19 11:10 06/18/19 11:10 06/18/19 11:10 Intake & Output 06/17/19 06/18/19 06/19/19 06:59 06:59 06:59 Intake Total 1711 3500 846 Output Total 3750 700 Balance 1711 -250 146 Weight 83.5 kg 83.5 kg Exam: Right BKA stump dressing appeared to be dry. Results Laboratory Results: 06/18/19 05:25 06/18/19 05:25 06/17/19 06/18/19 06/18/19 08:05 05:25 05:25 WBC 40.7 H* RBC 4.73 Hgb 11.0 L Hct 35.4 L MCV 75 L MCH 23.3 L MCHC 31.0 L RDW 23.8 H Plt Count 477 H Seg Neutrophils % Not Reportable Sodium 139.8 Potassium 4.9 Chloride 107 Carbon Dioxide 24 Anion Gap 9 BUN 26 H Creatinine 1.11 Est GFR ( Amer) 57 L Glucose 200 H Calcium 8.5 Magnesium 1.8 Total Bilirubin 0.4 AST 39 H Alkaline Phosphatase 267 H Total Protein 6.4 Albumin 2.4 L Blood Type O NEGATIVE 06/13/19 17:08 Foot - Left Gram Stain - Final 06/13/19 17:08 Foot - Left Wound Culture - Final Mrsa (Meth Resis Staph Aureus) No Anaerobic Organisms 06/12/19 09:50 Foot - Left Gram Stain - Final 06/12/19 09:50 Foot - Left Wound Culture - Final Mrsa (Meth Resis Staph Aureus) Impressions: Chest X-Ray 06/11/19 07:55 IMPRESSION: Possible infiltrate left lower lobe. Foot X-Ray 06/11/19 08:19 IMPRESSION: Cellulitis. Fracture proximal 2nd phalanx, possibly pathologic secondary to osteomyelitis. Assessment & Plan - Diagnosis (1) Cellulitis and abscess of foot Is this a current diagnosis for this admission?: Yes (2) Sepsis Qualifiers: Sepsis type: sepsis due to unspecified organism Acute respiratory failure type: unspecified Severe sepsis shock status: without septic shock Is this a current diagnosis for this admission?: Yes - Time Time Spent with patient: 15-24 minutes - Inpatient Certification Medical Necessity: Need for IV Antibiotics - Plan Summary Plan Summary: Since the source of the infection has been removed with a below-knee amputation, patient does not need prolonged antibiotic therapy. Discharge planning nurse was consulted for placement and rehab. The right BKA stump dressing can be changed in the next 24 to 48 hours.
--- NOTE | 2019-06-18 16:38 | PDOC PROGRESS REPORT ---
Subjective Progress Note for:: 06/18/19 Subjective:: ORACIO PEDROZA is a 84 year old female with a history of diabetes. She states that she noticed some discomfort in the foot several days ago. The foot slowly worsen. Eventually there was swelling and redness. There was blood on the floor when she walked. She reports having had a fever but did not check her temperature. She has an elevated white count as well as what looks like a diabetic foot ulcer. She was referred to the hospitalist service and started on antibiotics in the emergency department. 06/15/2018. No acute events overnight. 06/16/2019. No acute events overnight. Denies any fever, chills, nausea, vomiting, diarrhea, constipation or any urinary symptoms. Left lower extremity pain improving. Patient is waiting for wound closure by surgery. 06/17/2019. No acute events overnight. Patient having left BKA today. Denies any fever, chills, nausea, vomiting, diarrhea, constipation or any urinary symptoms. 06/18/2019. Patient is day 1 status post right BKA. Complaining of itching on the surgical area and phantom pain. Denies any fever, chills, nausea, vomiting, diarrhea, constipation or any urinary symptoms. Patient could be sent to rehab antibiotics DC'd wants surgery signed off on her. Reason For Visit: SEPSIS,CELLULITIS AND ABSCESS OF FOOT Physical Exam Vital Signs: Temp Pulse Resp BP Pulse Ox 99.1 F 86 17 164/61 H 98 06/18/19 11:10 06/18/19 14:00 06/18/19 11:10 06/18/19 11:10 06/18/19 11:10 Intake & Output 06/17/19 06/18/19 06/19/19 06:59 06:59 06:59 Intake Total 1711 3500 846 Output Total 3750 700 Balance 1711 -250 146 Weight 83.5 kg 83.5 kg General appearance: PRESENT: no acute distress, well-developed, well-nourished Head exam: PRESENT: atraumatic, normocephalic Respiratory exam: PRESENT: clear to auscultation carmen. ABSENT: rales, rhonchi, wheezes Cardiovascular exam: PRESENT: RRR. ABSENT: diastolic murmur, rubs, systolic murmur GI/Abdominal exam: PRESENT: normal bowel sounds, soft. ABSENT: distended, guarding, mass, organolmegaly, rebound, tenderness Extremities exam: PRESENT: full ROM, other - Right BKA. Surgical wound looks clean.. ABSENT: calf tenderness, clubbing, pedal edema Neurological exam: PRESENT: alert, awake, oriented to person, oriented to place, oriented to time, oriented to situation, CN II-XII grossly intact. ABSENT: motor sensory deficit Results Laboratory Results: 06/18/19 05:25 06/18/19 05:25 06/17/19 06/18/19 06/18/19 08:05 05:25 05:25 WBC 40.7 H* RBC 4.73 Hgb 11.0 L Hct 35.4 L MCV 75 L MCH 23.3 L MCHC 31.0 L RDW 23.8 H Plt Count 477 H Seg Neutrophils % Not Reportable Sodium 139.8 Potassium 4.9 Chloride 107 Carbon Dioxide 24 Anion Gap 9 BUN 26 H Creatinine 1.11 Est GFR ( Amer) 57 L Glucose 200 H Calcium 8.5 Magnesium 1.8 Total Bilirubin 0.4 AST 39 H Alkaline Phosphatase 267 H Total Protein 6.4 Albumin 2.4 L Blood Type O NEGATIVE 06/13/19 17:08 Foot - Left Gram Stain - Final 06/13/19 17:08 Foot - Left Wound Culture - Final Mrsa (Meth Resis Staph Aureus) No Anaerobic Organisms Impressions: Chest X-Ray 06/11/19 07:55 IMPRESSION: Possible infiltrate left lower lobe. Foot X-Ray 06/11/19 08:19 IMPRESSION: Cellulitis. Fracture proximal 2nd phalanx, possibly pathologic secondary to osteomyelitis. Assessment and Plan - Diagnosis (1) Diabetic infection of left foot Is this a current diagnosis for this admission?: Yes Plan: Left diabetic foot infection due to MRSA. Day 1 status post left BKA. Initially had TMA 3 days prior to BKA. Wound culture positive for MRSA. Day 6 IV antibiotics. Received 4 days of IV cefepime. DC cefepime on 06/15/2019. Day 3 IV cefepime. Day 6 IV vancomycin. Pending wound reclosure by surgery. Patient IV antibiotics could be DC'd tomorrow since the source of infection has been moved. Patient will need to be sent to rehab after surgery has signed off. (2) Cellulitis and abscess of foot Is this a current diagnosis for this admission?: Yes Plan: As above. (3) CAD (coronary artery disease) Qualifiers: Coronary Disease-Associated Artery/Lesion type: [place] artery [place] vs. transplanted heart: [place] heart Associated angina: without angina Qualified Code(s): I25.10 - Atherosclerotic heart disease of [place] coronary artery without angina pectoris Is this a current diagnosis for this admission?: Yes Plan: Denies any anginal symptoms. Continue DAPT, statins, beta-blockers, KIKE and ranolazine. Uptitrate beta-blockers and KIKE as tolerated. Outpatient PCP and cardiology follow-up. 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 Chronic leukocytosis. Not on chemotherapy. Hematology consulted. No treatment planned at this point. Follow-up with hematology as outpatient. (5) Chronic diastolic (congestive) heart failure Is this a current diagnosis for this admission?: Yes Plan: Euvolemic. Does not appear to be exacerbated. History of diastolic heart failure. Continue cardiac diet, beta-blockers, and diuretics. (6) Diabetes Qualifiers: Diabetes mellitus type: type 2 Diabetes mellitus [facility] insulin use: unspecified [facility] insulin use status Diabetes mellitus complication status: with hyperglycemia Qualified Code(s): E11.65 - Type 2 diabetes mellitus with hyperglycemia Is this a current diagnosis for this admission?: Yes Plan: Not controlled. 03/23/2019. Hemoglobin A1c 9.1. Home meds are Levemir 22 units subcutaneous twice daily, Januvia 100 mg p.o. daily. Continue basal, prandial and sliding scale insulin, Accu-Chek, hypoglycemia protocol, diabetic diet. Adjust dosage as needed. Restart home meds upon discharge, outpatient PCP follow-up. (7) Hypotension Qualifiers: Hypotension type: hypotension due to drug Qualified Code(s): I95.2 - Hypotension due to drugs Is this a current diagnosis for this admission?: Yes Plan: Not optimized. Euvolemic. Continue metoprolol. Increase lisinopril to 5 mg p.o. daily from 2.5 mg p.o. daily. Continue PRN IV hydralazine. Adjust meds as needed. Outpatient PCP follow-up.
[2019-06-18 17:30] LABS: AMORPHOUS SEDIMENT,URINE TRACE /HPF; APPEARANCE,URINE CLOUDY; BILIRUBIN,URINE NEGATIVE (NEGATIVE); COLOR,URINE YELLOW; GLUCOSE, URINE NEGATIVE (NEGATIVE); KETONES,URINE NEGATIVE (NEGATIVE); PROTEIN,URINE NEGATIVE (NEGATIVE); URINE SPECIFIC GRAVITY 1.008; UROBILINOGEN,URINE NEGATIVE mg/dL (<2.0)
[2019-06-18] MEDS: ATORVASTATIN CALCIUM 80 MG TABLET PO SCH (21:36)
[2019-06-18] MEDS: TRAZODONE HCL 50 MG TABLET PO SCH (21:36)
[2019-06-19] MEDS: VANCOMYCIN HCL 750 MG in DEXTROSE 5%-WATER 250 ML IV SCH ×2 (05:13→17:58)
[2019-06-19] MEDS: PANTOPRAZOLE SODIUM 40 MG TABLET.DR PO SCH (05:13)
[2019-06-19] MEDS: HEPARIN SOD (PORCINE) 5,000 UNIT/ML 1 ML VIAL SUBCUT SCH ×3 (05:13→21:54)
[2019-06-19 05:31] LABS: HEMATOCRIT 35.9 % (36.0-47.0); HEMOGLOBIN 10.9 g/dL (12.0-15.5); MEAN CORPUSCULAR HEMOGLOBIN 23.3 pg (27.0-33.4); MEAN CORPUSCULAR HGB CONC 30.5 g/dL (32.0-36.0); MEAN CORPUSCULAR VOLUME 76 fl (80-97); PLATELET COUNT 502 10^3/uL (150-450); RED BLOOD COUNT 4.71 10^6/uL (3.72-5.28); RED CELL DISTRIBUTION WIDTH 23.6 % (11.5-14.0)
[2019-06-19 05:41] LABS: ALBUMIN 2.6 g/dL (3.5-5.0); ALKALINE PHOSPHATASE 252 U/L (38-126); ANION GAP 7 (5-19); ASPARTATE AMINO TRANSFERASE 37 U/L (14-36); BILIRUBIN,DIRECT 0.2 mg/dL (0.0-0.4); BILIRUBIN,TOTAL 0.5 mg/dL (0.2-1.3); BLOOD UREA NITROGEN 24 mg/dL (7-20); CALCIUM 8.6 mg/dL (8.4-10.2); CARBON DIOXIDE 26 mmol/L (22-30); CHLORIDE 104 mmol/L (98-107); GLUCOSE 250 mg/dL (75-110); POTASSIUM 5.5 mmol/L (3.6-5.0); TOTAL PROTEIN 6.7 g/dL (6.3-8.2)
[2019-06-19 05:57] LABS: WHITE BLOOD COUNT 33.9 10^3/uL (4.0-10.5)
[2019-06-19 06:00] LABS: ABSOLUTE MONOCYTES # (MANUAL) 3.1 10^3/uL (0.1-1.4); ANISOCYTOSIS 3+; BAND NEUTROPHILS % (MANUAL) 1 % (3-5); BASOPHILS % (MANUAL) 0 % (0-2); EOSINOPHILS % (MANUAL) 0 % (0-6); LYMPHOCYTES % (MANUAL) 6 % (13-45); MONOCYTES % (MANUAL) 9 % (3-13); OVALOCYTES 1+; PLATELET LARGE PRESENT; SEGMENTED NEUTROPHILS % (MAN) 84 % (42-78); TOTAL CELLS COUNTED 100
[2019-06-19 06:01] LABS: PLATELET COMMENT INCREASED
[2019-06-19] MEDS: KETOROLAC TROMETHAMINE INJ/PF 30 MG/1 ML SDV IV PRN (06:30)
[2019-06-19] MEDS: INSULIN REG, HUMAN 100 UNIT/ML 3 ML VIAL (PYX) SUBCUT SCH ×4 (08:40→21:52)
[2019-06-19] MEDS: SITAGLIPTIN PHOSPHATE 50 MG TABLET PO SCH (09:51)
[2019-06-19] MEDS: GABAPENTIN 300 MG CAPSULE PO SCH ×2 (09:52→21:54)
[2019-06-19] MEDS: METOPROLOL SUCCINATE 50 MG TAB.SR.24H PO SCH ×2 (09:52→21:54)
[2019-06-19] MEDS: LISINOPRIL 5 MG TABLET PO SCH (09:52)
[2019-06-19] MEDS: DOCUSATE SODIUM 100 MG CAPSULE PO SCH ×3 (09:53→17:57)
[2019-06-19] MEDS: BUSPIRONE HCL 10 MG TABLET PO SCH ×2 (09:53→21:54)
[2019-06-19] MEDS: ASPIRIN 81 MG TABLET, ENT COATED PO SCH (09:53)
[2019-06-19] MEDS: HYDRALAZINE HCL INJ/PF 20 MG/1 ML SDV IV PRN (09:53)
[2019-06-19] MEDS: RANOLAZINE 500 MG TAB.SR.12H PO SCH ×2 (09:53→21:54)
[2019-06-19] MEDS: CLOPIDOGREL BISULFATE 75 MG TABLET PO SCH (09:53)
[2019-06-19] MEDS: SERTRALINE HCL 50 MG TABLET PO SCH (09:53)
[2019-06-19] MEDS: FUROSEMIDE 40 MG TABLET PO SCH (09:53)
[2019-06-19] MEDS: INSULIN GLARGINE,HUM.REC.ANLOG 1,000 UNIT/10 ML VIAL SUBCUT SCH ×2 (10:10→21:59)
[2019-06-19 11:29] LABS: IRON(TIBC) 27.2 ug/dL (37-170)
[2019-06-19 11:32] LABS: ABSOLUTE RETICS # 0.108 10^6/uL (0.028-0.122); RETICULOCYTE COUNT (AUTO) 2.34 % (0.66-2.85)
[2019-06-19 12:36] LABS: FOLATE 7.92 ng/mL (>2.76)
[2019-06-19] MEDS: ACETAMINOPHEN 325 MG TABLET PO PRN ×2 (13:56→21:52)
[2019-06-19] MEDS: CLOTRIMAZOLE/BETAMETHASONE DIP CREAM 15 GM TOP SCH ×2 (14:35→17:58)
--- NOTE | 2019-06-19 17:14 | PDOC PROGRESS REPORT ---
Subjective Progress Note for:: 06/19/19 Subjective:: Mild pains along the right BKA stump Reason For Visit: SEPSIS,CELLULITIS AND ABSCESS OF FOOT Physical Exam Vital Signs: Temp Pulse Resp BP Pulse Ox 98.7 F 99 17 150/69 H 97 06/19/19 14:35 06/19/19 14:35 06/19/19 00:29 06/19/19 14:35 06/19/19 14:35 Intake & Output 06/18/19 06/19/19 06/20/19 06:59 06:59 06:59 Intake Total 3500 2385 Output Total 3750 3900 Balance -250 -1515 Weight 83.5 kg 82.9 kg Exam: BKA stump dressing removed and replaced with Xeroform gauze wrap with ABD pad Ambreen and Ignacio bandage. The stump appears to be viable with no evidence of infection. Results Laboratory Results: 06/19/19 03:58 06/19/19 14:25 06/18/19 06/19/19 06/19/19 17:00 03:58 03:58 WBC 33.9 H* RBC 4.71 Hgb 10.9 L Hct 35.9 L MCV 76 L MCH 23.3 L MCHC 30.5 L RDW 23.6 H Plt Count 502 H Seg Neutrophils % Not Reportable Retic Count (auto) Sodium 137.4 Potassium 5.5 H Chloride 104 Carbon Dioxide 26 Anion Gap 7 BUN 24 H Creatinine 1.14 Est GFR ( Amer) 55 L Glucose 250 H Calcium 8.6 Magnesium 1.6 Iron TIBC % Saturation Ferritin Total Bilirubin 0.5 AST 37 H Alkaline Phosphatase 252 H Total Protein 6.7 Albumin 2.6 L Vitamin B12 Folate Urine Color YELLOW Urine Appearance CLOUDY Urine pH 5.0 Ur Specific [place] 1.008 Urine Protein NEGATIVE Urine Glucose (UA) NEGATIVE Urine Ketones NEGATIVE Urine Blood MODERATE H Urine RBC (Auto) 3 06/19/19 06/19/19 06/19/19 03:58 03:58 14:25 WBC RBC Hgb Hct MCV MCH MCHC RDW Plt Count Seg Neutrophils % Retic Count (auto) 2.34 Sodium Potassium 5.0 Chloride Carbon Dioxide Anion Gap BUN Creatinine Est GFR ( Amer) Glucose Calcium Magnesium Iron 27.2 L TIBC 177 L % Saturation 15 Ferritin 115.00 Total Bilirubin AST Alkaline Phosphatase Total Protein Albumin Vitamin B12 > 1000.0 H Folate 7.92 Urine Color Urine Appearance Urine pH Ur Specific [place] Urine Protein Urine Glucose (UA) Urine Ketones Urine Blood Urine RBC (Auto) Impressions: Chest X-Ray 06/11/19 07:55 IMPRESSION: Possible infiltrate left lower lobe. Foot X-Ray 06/11/19 08:19 IMPRESSION: Cellulitis. Fracture proximal 2nd phalanx, possibly pathologic secondary to osteomyelitis. Assessment & Plan - Diagnosis (1) Cellulitis and abscess of foot Is this a current diagnosis for this admission?: Yes (2) Sepsis Qualifiers: Sepsis type: sepsis due to unspecified organism Acute respiratory failure type: unspecified Severe sepsis shock status: without septic shock Is this a current diagnosis for this admission?: Yes - Time Time Spent with patient: 15-24 minutes - Inpatient Certification Medical Necessity: Need for IV Antibiotics - Plan Summary Plan Summary: The right BKA stump appears to be coming along fine. Patient will need a prolonged IV antibiotic therapy since the source of the infection has been removed. Patient will need placement for rehab or fpc. Patient can be followed in the surgical clinic in about 3 weeks for removal of the ciera. We will sign off. Call for any questions.
--- NOTE | 2019-06-19 19:27 | PDOC PROGRESS REPORT ---
Subjective Progress Note for:: 06/19/19 Subjective:: Patient is doing well. Still complains of itching at site of surgical stump. Otherwise denies any significant pain at the region. Denies any fever or chills. Has not been able to ambulate but due to BKA. Reason For Visit: SEPSIS,CELLULITIS AND ABSCESS OF FOOT Physical Exam Vital Signs: Temp Pulse Resp BP Pulse Ox 98.7 F 99 17 150/69 H 97 06/19/19 14:35 06/19/19 14:35 06/19/19 00:29 06/19/19 14:35 06/19/19 14:35 Intake & Output 06/18/19 06/19/19 06/20/19 06:59 06:59 06:59 Intake Total 3500 2385 Output Total 3750 3900 Balance -250 -1515 Weight 83.5 kg 82.9 kg General appearance: PRESENT: no acute distress Head exam: PRESENT: atraumatic Eye exam: PRESENT: conjunctiva pink Ear exam: ABSENT: bleeding Mouth exam: PRESENT: moist Throat exam: ABSENT: tonsillogmegaly Neck exam: ABSENT: JVD Respiratory exam: PRESENT: clear to auscultation carmen. ABSENT: accessory muscle use Cardiovascular exam: PRESENT: +S1. ABSENT: diastolic murmur Vascular exam: ABSENT: pallor GI/Abdominal exam: PRESENT: normal bowel sounds, soft. ABSENT: tenderness Rectal exam: ABSENT: deferred Gentrourinary exam: ABSENT: ecchymosis Musculoskeletal exam: ABSENT: ambulatory Neurological exam: PRESENT: alert, awake, oriented to person, oriented to place Psychiatric exam: PRESENT: appropriate affect Results Laboratory Results: 06/19/19 03:58 06/19/19 14:25 06/19/19 06/19/19 06/19/19 03:58 03:58 03:58 WBC 33.9 H* RBC 4.71 Hgb 10.9 L Hct 35.9 L MCV 76 L MCH 23.3 L MCHC 30.5 L RDW 23.6 H Plt Count 502 H Seg Neutrophils % Not Reportable Retic Count (auto) 2.34 Sodium 137.4 Potassium 5.5 H Chloride 104 Carbon Dioxide 26 Anion Gap 7 BUN 24 H Creatinine 1.14 Est GFR ( Amer) 55 L Glucose 250 H Calcium 8.6 Magnesium 1.6 Iron TIBC % Saturation Ferritin Total Bilirubin 0.5 AST 37 H Alkaline Phosphatase 252 H Total Protein 6.7 Albumin 2.6 L Vitamin B12 Folate 06/19/19 06/19/19 03:58 14:25 WBC RBC Hgb Hct MCV MCH MCHC RDW Plt Count Seg Neutrophils % Retic Count (auto) Sodium Potassium 5.0 Chloride Carbon Dioxide Anion Gap BUN Creatinine Est GFR ( Amer) Glucose Calcium Magnesium Iron 27.2 L TIBC 177 L % Saturation 15 Ferritin 115.00 Total Bilirubin AST Alkaline Phosphatase Total Protein Albumin Vitamin B12 > 1000.0 H Folate 7.92 Impressions: Chest X-Ray 06/11/19 07:55 IMPRESSION: Possible infiltrate left lower lobe. Foot X-Ray 06/11/19 08:19 IMPRESSION: Cellulitis. Fracture proximal 2nd phalanx, possibly pathologic secondary to osteomyelitis. Assessment and Plan - Diagnosis (1) Diabetic infection of left foot Is this a current diagnosis for this admission?: Yes Plan: Left diabetic foot infection due to MRSA. Day 2 status post left BKA. Initially had TMA 3 days prior to BKA. Wound culture positive for MRSA. Blood cultures negative. Source of infection controlled with BKA Day 7 IV antibiotics. Received 4 days of IV cefepime. DC cefepime on 06/15/2019. Day 7 IV vancomycin. Surgical follow up with Dr Garrett in clinic for ciera removal. Patient will need to be sent to rehab -SW consulted (2) CAD (coronary artery disease) Qualifiers: Coronary Disease-Associated Artery/Lesion type: [place] artery [place] vs. 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 Chronic leukocytosis. No treatment planned at this point. Follow-up with hematology as outpatient. (4) Chronic diastolic CHF (congestive heart failure) Is this a current diagnosis for this admission?: No Plan: Stable (5) Diabetes mellitus type 2 in obese Is this a current diagnosis for this admission?: Yes (6) Hypertension Qualifiers: Hypertension type: essential hypertension Qualified Code(s): I10 - Essential (primary) hypertension Is this a current diagnosis for this admission?: Yes Plan: Monitor BP. Will work to optimize BP control. (7) Hyperkalemia Is this a current diagnosis for this admission?: Yes Plan: Likely secondary to skin breakdown from wound as well as some component from the increasing his lisinopril dose. Seems to be improving with subsequent's measurement. Continue with Lasix. Continue to monitor BMP. - Time Time Spent with patient: 25-34 minutes Anticipated discharge: SNF Within: within 24 hours
[2019-06-19] MEDS: TRAZODONE HCL 50 MG TABLET PO SCH (21:54)
[2019-06-19] MEDS: ATORVASTATIN CALCIUM 80 MG TABLET PO SCH (21:54)
[2019-06-19] MEDS: ONDANSETRON HCL INJ/PF 4 MG/2 ML SDV IV PRN (21:55)
[2019-06-20] MEDS: ACETAMINOPHEN 325 MG TABLET PO PRN ×2 (02:31→09:55)
[2019-06-20 04:30] LABS: HEMATOCRIT 33.7 % (36.0-47.0); HEMOGLOBIN 10.4 g/dL (12.0-15.5); MEAN CORPUSCULAR HEMOGLOBIN 23.2 pg (27.0-33.4); MEAN CORPUSCULAR HGB CONC 30.8 g/dL (32.0-36.0); MEAN CORPUSCULAR VOLUME 75 fl (80-97); PLATELET COUNT 453 10^3/uL (150-450); RED BLOOD COUNT 4.48 10^6/uL (3.72-5.28); RED CELL DISTRIBUTION WIDTH 23.6 % (11.5-14.0)
[2019-06-20 04:37] LABS: WHITE BLOOD COUNT 41.9 10^3/uL (4.0-10.5)
[2019-06-20 04:45] LABS: ANION GAP 8 (5-19); BLOOD UREA NITROGEN 24 mg/dL (7-20); CALCIUM 8.9 mg/dL (8.4-10.2); CARBON DIOXIDE 27 mmol/L (22-30); CHLORIDE 105 mmol/L (98-107); GLUCOSE 175 mg/dL (75-110); POTASSIUM 5.1 mmol/L (3.6-5.0)
[2019-06-20 04:55] LABS: ABSOLUTE LYMPHOCYTES# (MANUAL) 1.7 10^3/uL (0.5-4.7); ABSOLUTE MONOCYTES # (MANUAL) 4.2 10^3/uL (0.1-1.4); BASOPHILS % (MANUAL) 0 % (0-2); EOSINOPHILS % (MANUAL) 2 % (0-6); LYMPHOCYTES % (MANUAL) 2 % (13-45); MONOCYTES % (MANUAL) 10 % (3-13); SEGMENTED NEUTROPHILS % (MAN) 84 % (42-78); TOTAL CELLS COUNTED 100
[2019-06-20 04:56] LABS: ANISOCYTOSIS 3+; HYPOCHROMASIA 2+; OVALOCYTES 1+; PLATELET COMMENT INCREASED; PLATELET LARGE PRESENT; POIKILOCYTOSIS 2+; TARGET CELLS SLIGHT
[2019-06-20 04:58] LABS: POLYCHROMASIA SLIGHT
[2019-06-20] MEDS: HEPARIN SOD (PORCINE) 5,000 UNIT/ML 1 ML VIAL SUBCUT SCH ×3 (05:41→22:10)
[2019-06-20] MEDS: PANTOPRAZOLE SODIUM 40 MG TABLET.DR PO SCH (05:42)
[2019-06-20] MEDS: VANCOMYCIN HCL 750 MG in DEXTROSE 5%-WATER 250 ML IV SCH ×2 (05:42→19:01)
[2019-06-20] MEDS: INSULIN REG, HUMAN 100 UNIT/ML 3 ML VIAL (PYX) SUBCUT SCH ×4 (09:05→22:14)
[2019-06-20] MEDS: CLOPIDOGREL BISULFATE 75 MG TABLET PO SCH (09:55)
[2019-06-20] MEDS: BUSPIRONE HCL 10 MG TABLET PO SCH ×2 (09:56→22:15)
[2019-06-20] MEDS: GABAPENTIN 300 MG CAPSULE PO SCH ×2 (09:56→22:14)
[2019-06-20] MEDS: RANOLAZINE 500 MG TAB.SR.12H PO SCH ×2 (09:56→22:14)
[2019-06-20] MEDS: ASPIRIN 81 MG TABLET, ENT COATED PO SCH (09:56)
[2019-06-20] MEDS: SITAGLIPTIN PHOSPHATE 50 MG TABLET PO SCH (09:57)
[2019-06-20] MEDS: SERTRALINE HCL 50 MG TABLET PO SCH (09:57)
[2019-06-20] MEDS: DOCUSATE SODIUM 100 MG CAPSULE PO SCH ×3 (09:57→19:01)
[2019-06-20] MEDS: METOPROLOL SUCCINATE 50 MG TAB.SR.24H PO SCH ×2 (09:57→22:15)
[2019-06-20] MEDS: FUROSEMIDE 40 MG TABLET PO SCH (09:57)
[2019-06-20] MEDS: INSULIN GLARGINE,HUM.REC.ANLOG 1,000 UNIT/10 ML VIAL SUBCUT SCH ×2 (10:10→22:13)
[2019-06-20] MEDS: LISINOPRIL 5 MG TABLET PO SCH (10:10)
[2019-06-20] MEDS: CLOTRIMAZOLE/BETAMETHASONE DIP CREAM 15 GM TOP SCH ×2 (10:11→19:01)
--- NOTE | 2019-06-20 16:56 | PDOC PROGRESS REPORT ---
Subjective Progress Note for:: 06/20/19 Subjective:: Patient is doing well. Still complains of itching at site of surgical stump. Otherwise denies any significant pain at the region. Denies any fever or chills. Reason For Visit: SEPSIS,CELLULITIS AND ABSCESS OF FOOT Physical Exam Vital Signs: Temp Pulse Resp BP Pulse Ox 97.5 F 87 18 151/57 H 97 06/20/19 12:27 06/20/19 12:27 06/20/19 12:27 06/20/19 12:27 06/20/19 12:27 Intake & Output 06/19/19 06/20/19 06/21/19 06:59 06:59 06:59 Intake Total 2385 610 500 Output Total 3900 1600 500 Balance -1515 -990 0 Weight 82.9 kg 82.1 kg General appearance: PRESENT: no acute distress, cooperative Eye exam: PRESENT: EOMI Mouth exam: PRESENT: moist Neck exam: ABSENT: JVD Respiratory exam: PRESENT: clear to auscultation carmen Cardiovascular exam: PRESENT: RRR, +S1 Vascular exam: ABSENT: pallor GI/Abdominal exam: PRESENT: normal bowel sounds, soft. ABSENT: tenderness Extremities exam: PRESENT: other - Stump and clean dressing from BKA Results Laboratory Results: 06/20/19 04:11 06/20/19 04:11 06/20/19 06/20/19 04:11 04:11 WBC 41.9 H* RBC 4.48 Hgb 10.4 L Hct 33.7 L MCV 75 L MCH 23.2 L MCHC 30.8 L RDW 23.6 H Plt Count 453 H Seg Neutrophils % Not Reportable Sodium 139.6 Potassium 5.1 H Chloride 105 Carbon Dioxide 27 Anion Gap 8 BUN 24 H Creatinine 0.89 Est GFR ( Amer) > 60 Glucose 175 H Calcium 8.9 Impressions: Chest X-Ray 06/11/19 07:55 IMPRESSION: Possible infiltrate left lower lobe. Foot X-Ray 06/11/19 08:19 IMPRESSION: Cellulitis. Fracture proximal 2nd phalanx, possibly pathologic secondary to osteomyelitis. Assessment and Plan - Diagnosis (1) Diabetic infection of left foot Is this a current diagnosis for this admission?: Yes Plan: Left diabetic foot infection due to MRSA. Day 2 status post left BKA. Initially had TMA 3 days prior to BKA. Wound culture positive for MRSA. Blood cultures negative. Source of infection controlled with BKA Received 4 days of IV cefepime. DC cefepime on 06/15/2019. Day 8 IV vancomycin. Surgical follow up with Dr Garrett in clinic for ciera removal. Patient will need to be sent to rehab -SW consulted (2) CAD (coronary artery disease) Qualifiers: Coronary Disease-Associated Artery/Lesion type: [place] artery [place] vs. transplanted heart: [place] heart Associated angina: without angina Qualified Code(s): I25.10 - Atherosclerotic heart disease of [place] coronary artery without angina pectoris Is this a current diagnosis for this admission?: Yes Plan: Chronic (3) CLL (chronic lymphocytic leukemia) Is this a current diagnosis for this admission?: Yes Plan: Chronic leukocytosis. No treatment planned at this point. Follow-up with hematology as outpatient. (4) Chronic diastolic CHF (congestive heart failure) Is this a current diagnosis for this admission?: No Plan: Stable (5) Diabetes mellitus type 2 in obese Is this a current diagnosis for this admission?: Yes (6) Hypertension Qualifiers: Hypertension type: essential hypertension Qualified Code(s): I10 - Essential (primary) hypertension Is this a current diagnosis for this admission?: Yes Plan: Monitor BP. Will work to optimize BP control. Started on amlodipine and lisinopril discontinued due to hyperkalemia. (7) Hyperkalemia Is this a current diagnosis for this admission?: Yes Plan: Likely secondary to skin breakdown from wound as well as some component from the increasing his lisinopril dose. Lisinopril discontinued. continue with Lasix. Continue to monitor BMP. - Time Time Spent with patient: 15-24 minutes
[2019-06-20] MEDS ORDERED: NA PHOS,M-B/NA PHOS,DI-BA (ADULT) 133 ML ENEMA PR PRN (19:28)
[2019-06-20] MEDS: ONDANSETRON HCL INJ/PF 4 MG/2 ML SDV IV PRN (22:10)
[2019-06-20] MEDS: POLYETHYLENE GLYCOL 3350 POWDER 17 GM/1 PACKET PO SCH (22:13)
[2019-06-20] MEDS: TRAZODONE HCL 50 MG TABLET PO SCH (22:14)
[2019-06-20] MEDS: ATORVASTATIN CALCIUM 80 MG TABLET PO SCH (22:15)
[2019-06-21] MEDS: ACETAMINOPHEN 325 MG TABLET PO PRN ×3 (00:21→14:26)
[2019-06-21] MEDS: ONDANSETRON HCL INJ/PF 4 MG/2 ML SDV IV PRN (02:50)
[2019-06-21] MEDS: PANTOPRAZOLE SODIUM 40 MG TABLET.DR PO SCH (05:20)
[2019-06-21] MEDS: HEPARIN SOD (PORCINE) 5,000 UNIT/ML 1 ML VIAL SUBCUT SCH ×2 (05:20→13:15)
[2019-06-21] MEDS: VANCOMYCIN HCL 750 MG in DEXTROSE 5%-WATER 250 ML IV SCH (05:20)
[2019-06-21 07:10] LABS: ANION GAP 7 (5-19); BLOOD UREA NITROGEN 21 mg/dL (7-20); CALCIUM 8.6 mg/dL (8.4-10.2); CARBON DIOXIDE 31 mmol/L (22-30); CHLORIDE 101 mmol/L (98-107); GLUCOSE 138 mg/dL (75-110); POTASSIUM 5.3 mmol/L (3.6-5.0)
[2019-06-21] MEDS: INSULIN REG, HUMAN 100 UNIT/ML 3 ML VIAL (PYX) SUBCUT SCH ×2 (09:56→13:07)
[2019-06-21] MEDS: POLYETHYLENE GLYCOL 3350 POWDER 17 GM/1 PACKET PO SCH ×2 (09:58→10:01)
[2019-06-21] MEDS: INSULIN GLARGINE,HUM.REC.ANLOG 1,000 UNIT/10 ML VIAL SUBCUT SCH (09:58)
[2019-06-21] MEDS: SITAGLIPTIN PHOSPHATE 50 MG TABLET PO SCH (09:58)
[2019-06-21] MEDS: FUROSEMIDE 40 MG TABLET PO SCH (09:59)
[2019-06-21] MEDS: ASPIRIN 81 MG TABLET, ENT COATED PO SCH (09:59)
[2019-06-21] MEDS: RANOLAZINE 500 MG TAB.SR.12H PO SCH (09:59)
[2019-06-21] MEDS: GABAPENTIN 300 MG CAPSULE PO SCH (09:59)
[2019-06-21] MEDS: BUSPIRONE HCL 10 MG TABLET PO SCH (09:59)
[2019-06-21] MEDS: SERTRALINE HCL 50 MG TABLET PO SCH (09:59)
[2019-06-21] MEDS: METOPROLOL SUCCINATE 50 MG TAB.SR.24H PO SCH (09:59)
[2019-06-21] MEDS ORDERED: CHLORTHALIDONE 25 MG TABLET PO SCH (10:00)
[2019-06-21] MEDS: CLOPIDOGREL BISULFATE 75 MG TABLET PO SCH (10:00)
[2019-06-21] MEDS ORDERED: AMLODIPINE BESYLATE 5 MG TABLET PO SCH (10:00)
[2019-06-21] MEDS: DOCUSATE SODIUM 100 MG CAPSULE PO SCH (10:43)
[2019-06-21] MEDS: CLOTRIMAZOLE/BETAMETHASONE DIP CREAM 15 GM TOP SCH (10:45)
[2019-06-21 12:59] VITALS: BP 151/53
--- NOTE | 2019-06-21 13:22 | PDOC TRANSFER SUMMARY ---
Impression - Admit/DC Date/PCP Admission Date/Primary Care Provider: 06/11/19 11:44 SOFI GUERRIER MD Discharge Date: 06/21/19 - Discharge Diagnosis (1) Diabetic infection of left foot Is this a current diagnosis for this admission?: Yes (2) CAD (coronary artery disease) Is this a current diagnosis for this admission?: Yes (3) CLL (chronic lymphocytic leukemia) Is this a current diagnosis for this admission?: Yes (4) Chronic diastolic CHF (congestive heart failure) Is this a current diagnosis for this admission?: No (5) Diabetes mellitus type 2 in obese Is this a current diagnosis for this admission?: Yes (6) Hypertension Is this a current diagnosis for this admission?: Yes (7) Hyperkalemia Is this a current diagnosis for this admission?: Yes - Assessment Summary: Patient is an 84-year-old female with a history of diabetes who presented initially for pain in the left lower extremity specifically the foot. On admission she was found to have a infected diabetic foot ulcer. She was admitted and started on IV antibiotics. Blood cultures were obtained which were all negative. Wound culture revealed MRSA. She was seen by the surgical team. Patient subsequently had a below-knee amputation. She completed a 7-day course of vancomycin. Given source control she does not need any further days of ant ibiotics. During patient stay in the hospital she also had a blood pressure regimen changed to bed. She was noted to be hyperkalemic likely secondary to tissue damage from the BKA the leg wound. Patient's lisinopril was discontinued patient was started on chlorthalidone to help with optimization of blood pressure as well as lowering potassium level. Patient will need repeat measurement of a potassium level at care home facility. The last measurement was 5.3 today. Also monitor blood pressure given new medications. - Additional Information Resuscitation Status: Do Not Resuscitate Discharge Diet: Diabetic Discharge Activity: Other - Non weight bearing on left leg Referrals: LAUREN GRIMES MD [ACTIVE STAFF] - (6 weeks from discharge. Please call my office to arrange. ) [facility] [Provider Group] - 06/22/19 1:45 pm (DR. MENDOSA) Home Medications: Aspirin [Ecotrin 81 mg EC Tablet] 81 mg PO DAILY 06/11/19 Buspirone HCl [Buspar 15 mg Tablet] 15 mg PO Q12 06/11/19 Clopidogrel Bisulfate [Plavix 75 mg Tablet] 75 mg PO DAILY 06/11/19 Docusate Sodium [Colace 100 mg Capsule] 100 mg PO DAILY 06/11/19 Furosemide [Lasix 40 mg Tablet] 40 mg PO DAILY 06/11/19 Gabapentin [Neurontin 300 mg Capsule] 300 mg PO Q12 06/11/19 Hydroxyzine HCl [Atarax 25 mg Tablet] 25 mg PO Q8 06/11/19 Insulin Detemir [Levemir] 22 units SQ BID 06/11/19 Loperamide HCl [Imodium 2 mg Capsule] 2 mg PO Q6HP PRN 06/11/19 Nitroglycerin 0.4 mg SL Q5MP PRN 06/11/19 Nystatin [Mycostatin Topical Powder 15 gm] 1 applic TOP BID 06/11/19 Ondansetron [Zofran Odt 4 mg Tablet] 4 mg PO Q8HP PRN 06/11/19 Pantoprazole Sodium [Protonix [address] Tablet] 40 mg PO DAILY 06/11/19 Polyethylene Glycol 3350 [Miralax Powder 17 gm/Packet] 17 gm PO DAILY 06/11/19 Ranolazine [Ranolazine ER] 500 mg PO Q12 06/11/19 Rosuvastatin Calcium [Crestor] 40 mg PO QHS 06/11/19 Sennosides/Docusate Sodium [Senna Plus 8.6-50 mg Tablet] 1 tab PO DAILYP PRN 06/11/19 Sertraline HCl [Zoloft] 25 mg PO DAILY 06/11/19 Sitagliptin Phosphate [Januvia] 100 mg PO DAILY 06/11/19 Trazodone HCl [Desyrel 50 mg Tablet] 50 mg PO QHS 06/11/19 Acetaminophen [Tylenol 325 mg Tablet] 650 mg PO Q4HP PRN tablet 06/21/19 Chlorthalidone [Hygroton 25 mg Tablet] 25 mg PO DAILY tablet 06/21/19 Metoprolol Succinate [Toprol Xl 50 mg Tab.sr] 50 mg PO Q12 tab.sr.24h 06/21/19 History of Present Illiness History of Present Illness: ORACIO PEDROZA is a 84 year old female with a history of diabetes. She states that she has noticed some discomfort in the foot several days ago. Food slowly worsened. Eventually those swelling or redness in the area. There was blood on the floor when she walked. She reported having had a fever but did not check a temperature. She also had elevated white count as well as what looked like diabetic foot ulcer. She was referred to the hospitalist service and started on antibiotics in the emergency department. Physical Exam Vital Signs: Temp Pulse Resp BP Pulse Ox 98.2 F 87 17 151/53 H 94 06/21/19 11:24 06/21/19 11:24 06/21/19 00:04 06/21/19 11:24 06/21/19 11:24 Intake & Output 06/20/19 06/21/19 06/22/19 06:59 06:59 06:59 Intake Total 610 2088 250 Output Total 1600 2750 Balance -990 -662 250 Weight 82.1 kg 85.3 kg General appearance: PRESENT: no acute distress Head exam: PRESENT: atraumatic Eye exam: PRESENT: EOMI Mouth exam: PRESENT: moist Teeth exam: ABSENT: dental tenderness Neck exam: ABSENT: JVD, tracheal deviation Respiratory exam: PRESENT: clear to auscultation carmen. ABSENT: wheezes Cardiovascular exam: PRESENT: RRR, +S1 Vascular exam: ABSENT: pallor GI/Abdominal exam: PRESENT: normal bowel sounds, soft. ABSENT: tenderness Rectal exam: PRESENT: deferred Extremities exam: PRESENT: other - BKA with clean wound dressing left lower extremity Neurological exam: PRESENT: alert, awake - though occasionally deep sleeper, oriented to person, oriented to place, oriented to situation Psychiatric exam: PRESENT: normal mood. ABSENT: agitated Focused psych exam: ABSENT: internal stimuli Results Laboratory Results: WBC 41.9 10^3/uL (4.0-10.5) H* 06/20/19 04:11 RBC 4.48 10^6/uL (3.72-5.28) 06/20/19 04:11 Hgb 10.4 g/dL (12.0-15.5) L 06/20/19 04:11 Hct 33.7 % (36.0-47.0) L 06/20/19 04:11 MCV 75 fl (80-97) L 06/20/19 04:11 MCH 23.2 pg (27.0-33.4) L 06/20/19 04:11 MCHC 30.8 g/dL (32.0-36.0) L 06/20/19 04:11 RDW 23.6 % (11.5-14.0) H 06/20/19 04:11 Plt Count 453 10^3/uL (150-450) H 06/20/19 04:11 Lymph % (Auto) Not Reportable 06/20/19 04:11 [place] % (Auto) Not Reportable 06/20/19 04:11 Eos % (Auto) Not Reportable 06/20/19 04:11 Baso % (Auto) Not Reportable 06/20/19 04:11 Reticulocyte # 0.108 10^6/uL (0.028-0.122) 06/19/19 03:58 Absolute Neuts (auto) Not Reportable 06/20/19 04:11 Absolute Lymphs (auto) Not Reportable 06/20/19 04:11 Absolute Monos (auto) Not Reportable 06/20/19 04:11 Absolute Eos (auto) Not Reportable 06/20/19 04:11 Absolute Basos (auto) Not Reportable 06/20/19 04:11 Total Counted 100 06/20/19 04:11 Seg Neutrophils % Not Reportable 06/20/19 04:11 Seg Neuts % (Manual) 84 % (42-78) H 06/20/19 04:11 Band Neutrophils % 1 % (3-5) L 06/19/19 03:58 Lymphocytes % (Manual) 2 % (13-45) L 06/20/19 04:11 Atypical Lymphs % 2 % (0) 06/20/19 04:11 Monocytes % (Manual) 10 % (3-13) 06/20/19 04:11 Eosinophils % (Manual) 2 % (0-6) 06/20/19 04:11 Basophils % (Manual) 0 % (0-2) 06/20/19 04:11 Abs Neuts (Manual) 35.2 10^3/uL (1.7-8.2) H 06/20/19 04:11 Abs Lymphs (Manual) 1.7 10^3/uL (0.5-4.7) 06/20/19 04:11 Abs Monocytes (Manual) 4.2 10^3/uL (0.1-1.4) H 06/20/19 04:11 Absolute Eos (Manual) 0.8 10^3/uL (0.0-0.6) H 06/20/19 04:11 Abs Basophils (Manual) 0.0 10^3/uL (0.0-0.2) 06/20/19 04:11 Nucleated RBCs 1 /100 WBC (0) 06/11/19 08:05 Hypersegmented Neuts PRESENT 06/13/19 05:20 Smudge Cells PRESENT 06/17/19 05:52 Toxic Vacuolation PRESENT 06/13/19 05:20 Dohle Bodies PRESENT 06/11/19 08:05 Large Platelets PRESENT 06/20/19 04:11 Giant Platelets PRESENT 06/13/19 05:20 Platelet Comment INCREASED 06/20/19 04:11 Polychromasia SLIGHT 06/20/19 04:11 Hypochromasia 2+ 06/20/19 04:11 Poikilocytosis 2+ 06/20/19 04:11 Anisocytosis 3+ 06/20/19 04:11 Microcytosis 1+ 06/20/19 04:11 Target Cells SLIGHT 06/20/19 04:11 Tear Drop Cells SLIGHT 06/18/19 05:25 Ovalocytes 1+ 06/20/19 04:11 ESR 47 mm/hr (0-30) H 06/13/19 05:20 Retic Count (auto) 2.34 % (0.66-2.85) 06/19/19 03:58 PT 16.8 SEC (11.4-15.4) H 06/17/19 12:30 INR 1.35 06/17/19 12:30 VBG pH 7.37 (7.30-7.42) 06/11/19 08:05 VBG pCO2 50.0 mmHg (35-63) 06/11/19 08:05 VBG HCO3 28.0 mmol/L (20-32) 06/11/19 08:05 VBG Base Excess 1.7 mmol/L 06/11/19 08:05 Sodium 138.8 mmol/L (137-145) 06/21/19 06:08 Potassium 5.3 mmol/L (3.6-5.0) H 06/21/19 06:08 Chloride 101 mmol/L (98-107) 06/21/19 06:08 Carbon Dioxide 31 mmol/L (22-30) H 06/21/19 06:08 Anion Gap 7 (5-19) 06/21/19 06:08 BUN 21 mg/dL (7-20) H 06/21/19 06:08 Creatinine 1.17 mg/dL (0.52-1.25) 06/21/19 06:08 Est GFR ( Amer) 53 (>60) L 06/21/19 06:08 Est GFR (Non-Af Amer) Cancelled 06/16/19 06:01 Est GFR (MDRD) Non-Af 44 (>60) L 06/21/19 06:08 Glucose 138 mg/dL (75-110) H 06/21/19 06:08 POC Glucose 149 mg/dL (70-110) H 06/21/19 11:22 Lactic Acid 1.7 mmol/L (0.7-2.1) 06/11/19 15:11 Calcium 8.6 mg/dL (8.4-10.2) 06/21/19 06:08 Magnesium 1.6 mg/dL (1.6-2.3) 06/19/19 03:58 Iron 27.2 ug/dL (37-170) L 06/19/19 03:58 TIBC 177 ug/dL (250-450) L 06/19/19 03:58 % Saturation 15 % 06/19/19 03:58 Ferritin 115.00 ng/mL (11.1-264.0) 06/19/19 03:58 Total Bilirubin 0.5 mg/dL (0.2-1.3) 06/19/19 03:58 Direct Bilirubin 0.2 mg/dL (0.0-0.4) 06/19/19 03:58 Neonat Total Bilirubin Not Reportable 06/19/19 03:58 Neonat Direct Bilirubin Not Reportable 06/19/19 03:58 Neonat Indirect Bili Not Reportable 06/19/19 03:58 AST 37 U/L (14-36) H 06/19/19 03:58 ALT 15 U/L (<35) 06/19/19 03:58 Alkaline Phosphatase 252 U/L (38-126) H 06/19/19 03:58 C-React Prot High Sens > 15 mg/L (0.0-3.0) H 06/11/19 08:05 Total Protein 6.7 g/dL (6.3-8.2) 06/19/19 03:58 Albumin 2.6 g/dL (3.5-5.0) L 06/19/19 03:58 EGFR Cancelled 06/16/19 06:01 Vitamin B12 > 1000.0 pg/mL (239-931) H 06/19/19 03:58 Folate 7.92 ng/mL (>2.76) 06/19/19 03:58 Urine Color YELLOW 06/18/19 17:00 Urine Appearance CLOUDY 06/18/19 17:00 Urine pH 5.0 (5.0-9.0) 06/18/19 17:00 Ur Specific [place] 1.008 06/18/19 17:00 Urine Protein NEGATIVE mg/dL (NEGATIVE) 06/18/19 17:00 Urine Glucose (UA) NEGATIVE mg/dL (NEGATIVE) 06/18/19 17:00 Urine Ketones NEGATIVE mg/dL (NEGATIVE) 06/18/19 17:00 Urine Blood MODERATE (NEGATIVE) H 06/18/19 17:00 Urine Nitrite (Reflex) NEGATIVE (NEGATIVE) 06/18/19 17:00 Urine Bilirubin NEGATIVE (NEGATIVE) 06/18/19 17:00 Urine Urobilinogen NEGATIVE mg/dL (<2.0) 06/18/19 17:00 Leukocyte Esterase Rfl NEGATIVE (NEGATIVE) 06/18/19 17:00 Urine RBC (Auto) 3 /HPF 06/18/19 17:00 U Hyaline Cast (Auto) 5 /LPF 06/11/19 10:12 Urine Bacteria (Auto) 2+ /HPF 06/11/19 10:12 Urine WBC (Reflex) 4 /HPF 06/18/19 17:00 Squamous Epi Cells Auto 3 /HPF 06/18/19 17:00 U Non-Squamous Epis Auto 2 /HPF 06/11/19 10:12 Amorphous Sediment Auto TRACE /HPF 06/18/19 17:00 Urine Mucus (Auto) RARE /LPF 06/18/19 17:00 Urine Ascorbic Acid NEGATIVE (NEGATIVE) 06/18/19 17:00 Time Trough Drawn 0601 06/16/19 06:01 Vancomycin Trough 16.8 ug/mL (5.0-20.0) 06/16/19 06:01 Blood Type O NEGATIVE 06/17/19 08:05 Impressions: Chest X-Ray 06/11/19 07:55 IMPRESSION: Possible infiltrate left lower lobe. Foot X-Ray 06/11/19 08:19 IMPRESSION: Cellulitis. Fracture proximal 2nd phalanx, possibly pathologic secondary to osteomyelitis. Plan Health Concerns: Please monitor potassium level as it was noted to be elevated likely secondary to tissue breakdown from the wound at the BKA. Her last measurement was 5.3. Plan of Treatment: Diabetic infection of left foot: Completed 7 days of vancomycin for MRSA infection. Status post source control through BKA. Follow-up at [facility] for further evaluation and staple removal. Chronic lymphocytic leukemia: WBC count still in the 40s but stable. 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 Hypertension: Antihypertensives as prescribed. Diabetes mellitus type 2: Continue current regimen as prescribed Hyperkalemia: Secondary to tissue breakdown wound and surgery. Continue to monitor via Lab work. Increase diuretic if needed. CAD: Stable continue current regimen. Time Spent: Greater than 30 Minutes Stroke Is this a Stroke Patient?: No Acute Heart Failure - Is this a Heart Failure Patient?: Yes Documentation of LVEF assessment?: No, Document reason - Optimized on prior visits. Was not in any acute exacerbation LVEF < 40%?: No- if no continue to question #3 3. Anticoagulant therapy for permanect/persistent/paraoxysmal Afib or Aflutter: N/A
[2019-06-21] MEDS ORDERED: POLYETHYLENE GLYCOL 3350 POWDER 17 GM/1 PACKET PO SCH (14:00)
== END 2019-06-21 16:35 | DRG 239 ==
LOC: ER 07:45 → EH 11:44 → 5 13:00
PROVIDERS: ADMIT Hospitalist; ATTEND Hospitalist
PROC: 0Y6N0ZB Detachment at Left Foot, Partial 2nd Ray, Open Approach (ICD-10-PCS; 2019-06-13)
PROC: 0Y6N0ZC Detachment at Left Foot, Partial 3rd Ray, Open Approach (ICD-10-PCS; 2019-06-13)
PROC: 0Y6N0ZD Detachment at Left Foot, Partial 4th Ray, Open Approach (ICD-10-PCS; 2019-06-13)
PROC: 0Y6N0ZF Detachment at Left Foot, Partial 5th Ray, Open Approach (ICD-10-PCS; 2019-06-13)
PROC: 0HBNXZZ Excision of Left Foot Skin, External Approach (ICD-10-PCS; 2019-06-13)
PROC: 0Y6N0Z9 Detachment at Left Foot, Partial 1st Ray, Open Approach (ICD-10-PCS; principal; 2019-06-13 16:15)
PROC: 0Y6J0Z3 Detachment at Left Lower Leg, Low, Open Approach (ICD-10-PCS; 2019-06-17)
PROC: 30233K1 Transfusion of Nonautologous Frozen Plasma into Peripheral Vein, Percutaneous Approach (ICD-10-PCS; 2019-06-17)
DX: E11.52 Type 2 diabetes mellitus with diabetic peripheral angiopathy with gangrene (principal); A48.0 Gas gangrene; M86.9 Osteomyelitis, unspecified; L03.116 Cellulitis of left lower limb; L97.528 Non-pressure chronic ulcer of other part of left foot with other specified severity; I50.32 Chronic diastolic (congestive) heart failure; C91.10 Chronic lymphocytic leukemia of B-cell type not having achieved remission; D75.81 Myelofibrosis; E11.621 Type 2 diabetes mellitus with foot ulcer; L08.89 Other specified local infections of the skin and subcutaneous tissue; B95.62 Methicillin resistant Staphylococcus aureus infection as the cause of diseases classified elsewhere; E11.65 Type 2 diabetes mellitus with hyperglycemia; E11.628 Type 2 diabetes mellitus with other skin complications; I48.91 Unspecified atrial fibrillation; I25.10 Atherosclerotic heart disease of native coronary artery without angina pectoris; I11.0 Hypertensive heart disease with heart failure; K21.9 Gastro-esophageal reflux disease without esophagitis; D46.9 Myelodysplastic syndrome, unspecified; S92.515A Nondisplaced fracture of proximal phalanx of left lesser toe(s), initial encounter for closed fracture; E87.5 Hyperkalemia; I95.2 Hypotension due to drugs; T46.4X5A Adverse effect of angiotensin-converting-enzyme inhibitors, initial encounter; Y92.230 Patient room in hospital as the place of occurrence of the external cause; I25.2 Old myocardial infarction; Z79.4 Long term (current) use of insulin; Z86.711 Personal history of pulmonary embolism; Z86.14 Personal history of Methicillin resistant Staphylococcus aureus infection; Z79.01 Long term (current) use of anticoagulants; Z79.82 Long term (current) use of aspirin; Z79.899 Other long term (current) drug therapy
CPT/HCPCS: 01480; 01482; 36415; 36430; 71045; 80048; 80053; 80202; 81001; 82565; 82607; 82728; 82746; 82803; 82962; 83540; 83550; 83605; 83735; 84132; 85025; 85045; 85610; 85652; 86141; 86900; 86901; 87040; 87070; 87075; 87077; 87086; 87186; 87205; 88305; 88307; 88311; 93005; 93010; 96361; 96365; 96372; 99291; J0131; J0360; J0692; J1170; J1644; J1815; J1885; J2250; J2405; J2704; J3010; J3370; J3430; J3490; J7030; J7060; P9017

== ENCOUNTER 2019-07-30 13:52 | Inpatient (IN) | payer MEDICARE, OTHER ==
[2019-07-30] MEDS ORDERED: LIDOCAINE 1% INJ-PF (10 MG/ML) 30 ML SDV ONE ×2 (17:22→17:23)
[2019-07-30] MEDS ORDERED: MAGNESIUM HYDROXIDE SUSP 30 ML UDCUP PO PRN (17:51)
--- NOTE | 2019-07-30 18:12 | Operative Report ---
Operative Report DATE OF SURGERY: 07/30/19 PREOPERATIVE DIAGNOSIS: Status post left BKA with epidermal lysis and eschar POSTOPERATIVE DIAGNOSIS: Same; no evidence of active infection OPERATION: Excisional debridement of skin and subcutaneous tissue left below the knee amputation site closure SURGEON: LIA MERCADO ANESTHESIA: Local TISSUE REMOVED OR ALTERED: Devitalized skin and subcutaneous tissue COMPLICATIONS: None ESTIMATED BLOOD LOSS: Scant INTRAOPERATIVE FINDINGS: See below PROCEDURE: Patient was seen on the floor. Left stump was exposed. There were multiple small areas of epidermal lysis involving the posterior skin flap. Centrally on the posterior flap was a 2 x 2 area of eschar, partially opened. The surface of the stump was exposed, prepped with Betadine, anesthetized with1% plain lidocaine. All nonviable skin which amounted to an area 4 x 2 x 2 cm was sharply debrided with pickups, tenotomy scissors. Possible small debrided sites were probed, and there was no evidence of tracking. In the central posterior flap of a 2 x 2 area was opened and the subcutaneous tissue also debrided minimally. No tracking, or pus displayed. Overall the flaps are viable, and the majority of the closed incision remained intact at the skin level. There was no significant fascial dehiscence. Wounds irrigated, and the central open area packed with a small portion of gauze. The remainder of the postoperative incision was with Xeroform, 4 x 4's and Kerlix. Patient tolerated procedure well Recommendations: 1. We will start dressing changes, which have been ordered 2. Suspect poor wound healing due to relative malnutrition, and diabetes mellitus. 3. No indication for further excisional debridement. 4. The above discussed with Dr. Rey; we will follow the patient in consultation.
[2019-07-30] MEDS ORDERED: LOPERAMIDE HCL 2 MG CAPSULE PO PRN (18:16)
[2019-07-30] MEDS ORDERED: NITROGLYCERIN 0.4 MG/TAB 25 TAB/BOTTLE SL PRN (18:16)
[2019-07-30] MEDS ORDERED: ONDANSETRON 4 MG TAB.RAPDIS PO PRN (18:16)
[2019-07-30] MEDS ORDERED: SENNOSIDES/DOCUSATE 8.6-50 MG 1 EACH TABLET PO PRN (18:20)
[2019-07-30] MEDS ORDERED: DEXTROSE 40% GEL 15 GM TUBE PO PRN ×2 (18:24)
[2019-07-30] MEDS ORDERED: DEXTROSE 50%-WATER 25 GM/50 ML DISP.SYRIN IV PRN ×2 (18:24)
[2019-07-30] MEDS ORDERED: GLUCAGON,HUMAN RECOMB 1 MG INJ IM PRN (18:24)
[2019-07-30] MEDS ORDERED: FENTANYL CITRATE INJ/PF 100 MCG/2 ML AMPUL IV PRN (18:29)
--- NOTE | 2019-07-30 18:36 | PDOC H&P ---
History of Present Illness Admission Date/PCP: 07/30/19 13:52 SOFI GUERRIER MD Patient complains of: Dehiscence left below-knee amputation site History of Present Illness: ORACIO PEDROZA is a 84 year old female who underwent left below-knee amputation in May. She was seen in the outpatient surgical office today. There is wound dehiscence and concern for infection and so she was sent as a direct admission to the hospitalist service. She is a permanent resident at [facility]. Past Medical History Cardiac Medical History: Reports: Atrial Fibrillation, Congestive Heart Failure, Coronary Artery Disease, Myocardial Infarction - x2, Hyperlipidema, Hypertension, Pulmonary Embolism - Distant history Pulmonary Medical History: Denies: Asthma, Chronic Obstructive Pulmonary Disease (COPD) EENT Medical History: Reports: None Neurological Medical History: Denies: Seizures Endocrine Medical History: Reports: Diabetes Mellitus Type 2 Denies: Hyperthyroidism, Hypothyroidism Malignancy Medical History: Reports: Leukemia - Chronic lymphocytic leukemia, Skin Cancer - Excised from her nose GI Medical History: Reports: Gastroesophageal Reflux Disease Denies: Cirrhosis, Hepatitis Musculoskeltal Medical History: Reports: Arthritis Denies: Gout Skin Medical History: Denies: Eczema, Psoriasis Psychiatric Medical History: Reports: Depression - post Traumatic Medical History: Reports: None Hematology: Reports: Anemia Denies: Bleeding Tendencies Infectious Medical History: 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 Past Surgical History Past Surgical History: Reports: Appendectomy, Cholecystectomy, Hysterectomy, Orthopedic Surgery - Left below-knee amputation, Tonsillectomy, Vascular Surgery, Other - Cardiac loop recorder, bilateral cataract surgery, hemorrhoidectomy Social History Information Source: Patient - Patient has dementia so limited history., [facility] Records Lives with: Correction - [facility] Smoking Status: Former Smoker Electronic Cigarette use?: No Frequency of Alcohol Use: None Hx Recreational Drug Use: - unkown Drugs: None Hx Prescription Drug Abuse: - unknown - Advance Directive Resuscitation Status: Do Not Resuscitate Family History Family History: CAD, COPD, DM, Hyperlipidemia, Hypertension, Malignancy - Father with lung cancer. Cousin with leukemia. 3 brothers with unknown cancers. Mother also of unknown type of cancer., Other Parental Family History Reviewed: Yes Children Family History Reviewed: Yes Sibling(s) Family History Reviewed.: Yes Medication/Allergy Allergies/Adverse Reactions: morphine Allergy (Mild, Verified 04/06/19 15:24) Penicillins Allergy (Unknown, Verified 06/11/19 13:16) Review of Systems Constitutional: ABSENT: chills, fever(s), headache(s) Eyes: ABSENT: visual disturbances Ears: ABSENT: hearing changes Nose, Mouth, and Throat: ABSENT: sore throat Cardiovascular: ABSENT: chest pain, edema, palpitations Respiratory: ABSENT: cough, dyspnea Gastrointestinal: ABSENT: abdominal pain, constipation, diarrhea Genitourinary: ABSENT: dysuria, hematuria Musculoskeletal: PRESENT: deformity - Left below-knee amputation Integumentary: ABSENT: diaphoresis, pruritus Neurological: PRESENT: memory loss. ABSENT: abnormal speech, syncope Psychiatric: ABSENT: anxiety, depression Endocrine: ABSENT: cold intolerance, heat intolerance, polydipsia, polyuria Physical Exam Vital Signs: Temp Pulse Resp BP Pulse Ox 97.6 F 94 102/58 L 97 07/30/19 16:41 07/30/19 16:41 07/30/19 16:41 07/30/19 16:41 Assessment and Plan - Diagnosis (1) Wound dehiscence Is this a current diagnosis for this admission?: Yes Plan: 07/30/2019-the patient was seen with Dr. Garcia. There is dehiscence on the medial margin of the incision. At this time there is no purulent drainage. I did discuss the use of antibiotics with Dr. Garcia and at this time based on the clinical presentation of the wound we did not feel that it was appropriate. Because of the patient's CLL it is impossible to go by a white blood cell count. (2) IMANI (acute kidney injury) Is this a current diagnosis for this admission?: Yes Plan: 07/30/2019-we will utilize gentle IV fluids to return the kidney to normal function. (3) Hypokalemia Is this a current diagnosis for this admission?: Yes (4) Diabetes mellitus Qualifiers: Diabetes mellitus type: type 2 Diabetes mellitus complication status: with circulatory complication Diabetes mellitus complication detail: with other circulatory complications Is this a current diagnosis for this admission?: Yes Plan: 07/30/2019-we will obtain mealtime and bedtime Accu-Cheks. We will decrease the patient's long-acting insulin slightly and utilize a sliding scale. Some of her diabetes medications are not on formulary and so we will hold them for the time being. I anticipate a fairly short stay for this patient. (7) Depression Qualifiers: Depression Type: major depressive disorder Active/Remission status: currently active Major depression episode severity: moderate Is this a current diagnosis for this admission?: Yes Plan: 07/30/2019-her depression is well compensated with her medications. We will continue same. (8) Hypertension Qualifiers: Hypertension type: essential hypertension Qualified Code(s): I10 - Essential (primary) hypertension Is this a current diagnosis for this admission?: Yes Plan: 07/30/2019-continue current antihypertensives. - Plan Summary Summary: 07/30/2019-the dehisced area will be addressed. The patient can follow-up with the wound care clinic as the dehiscence should not need any major surgical intervention. No antibiotics at this time however if the patient is febrile and there is erythema and drainage antibiotics will be initiated. We will institute gentle IV fluids for the acute kidney injury. - Time Time Spent with patient: 35 or more minutes Medications reviewed and adjusted accordingly: Yes Anticipated discharge: SNF - Permanent resident of [facility] Within: within 48 hours
[2019-07-30] MEDS: TRAZODONE HCL 50 MG TABLET PO SCH (21:29)
[2019-07-30] MEDS: ATORVASTATIN CALCIUM 40 MG TABLET PO SCH (21:29)
[2019-07-30] MEDS: GABAPENTIN 300 MG CAPSULE PO SCH (21:29)
[2019-07-30] MEDS: HEPARIN SOD (PORCINE) 5,000 UNIT/ML 1 ML VIAL SUBCUT SCH (21:31)
[2019-07-30] MEDS: BUSPIRONE HCL 10 MG TABLET PO SCH (21:32)
[2019-07-30] MEDS: METOPROLOL SUCCINATE 50 MG TAB.SR.24H PO SCH (21:33)
[2019-07-30] MEDS: HYDROXYZINE HCL 10 MG TABLET PO SCH (21:34)
[2019-07-30] MEDS: INSULIN GLARGINE,HUM.REC.ANLOG 1,000 UNIT/10 ML VIAL SUBCUT SCH (21:35)
[2019-07-30] MEDS: RANOLAZINE 500 MG TAB.SR.12H PO SCH (21:36)
[2019-07-30] MEDS: INSULIN LISPRO 100 UNIT/ML 3 ML VIAL SUBCUT SCH (21:43)
[2019-07-31] MEDS: NORMAL SALINE 1000 ML 1,000 ML IV PRN ×2 (01:01→08:18)
[2019-07-31 06:11] LABS: HEMATOCRIT 31.8 % (36.0-47.0); HEMOGLOBIN 10.1 g/dL (12.0-15.5); MEAN CORPUSCULAR HEMOGLOBIN 22.6 pg (27.0-33.4); MEAN CORPUSCULAR HGB CONC 31.9 g/dL (32.0-36.0); MEAN CORPUSCULAR VOLUME 71 fl (80-97); PLATELET COUNT 446 10^3/uL (150-450); RED BLOOD COUNT 4.47 10^6/uL (3.72-5.28); RED CELL DISTRIBUTION WIDTH 20.2 % (11.5-14.0)
[2019-07-31 06:28] LABS: ANION GAP 9 (5-19); BLOOD UREA NITROGEN 43 mg/dL (7-20); CARBON DIOXIDE 37 mmol/L (22-30); CHLORIDE 92 mmol/L (98-107); GLUCOSE 88 mg/dL (75-110); POTASSIUM 3.1 mmol/L (3.6-5.0)
[2019-07-31] MEDS: HYDROXYZINE HCL 10 MG TABLET PO SCH ×3 (06:37→21:51)
[2019-07-31] MEDS: HEPARIN SOD (PORCINE) 5,000 UNIT/ML 1 ML VIAL SUBCUT SCH ×3 (06:37→21:48)
[2019-07-31] MEDS: PANTOPRAZOLE SODIUM 40 MG TABLET.DR PO SCH (06:38)
[2019-07-31 06:45] LABS: WHITE BLOOD COUNT 45.8 10^3/uL (4.0-10.5)
[2019-07-31] MEDS: INSULIN LISPRO 100 UNIT/ML 3 ML VIAL SUBCUT SCH ×4 (07:39→21:56)
--- NOTE | 2019-07-31 09:20 | PDOC PROGRESS REPORT ---
Subjective Progress Note for:: 07/31/19 Subjective:: No complaints. Reason For Visit: DEHISCED LEFT BKA INCISION Physical Exam Vital Signs: Temp Pulse Resp BP Pulse Ox 97.6 F 93 16 116/54 L 96 07/31/19 07:39 07/31/19 07:39 07/31/19 07:39 07/31/19 07:39 07/31/19 07:39 Intake & Output 07/30/19 07/31/19 08/01/19 06:59 06:59 06:59 Intake Total 476 728 Output Total 650 Balance -174 728 Weight 67.3 kg General appearance: PRESENT: no acute distress, cooperative Respiratory exam: PRESENT: clear to auscultation carmen Cardiovascular exam: PRESENT: RRR Extremities exam: PRESENT: other - Stump with area of dehiscence with exposed subcutaneous fat. Mild edema in the surrounding tissue but no erythema nor purulent drainage. Results Laboratory Results: 07/31/19 04:58 07/31/19 04:58 07/31/19 07/31/19 04:58 04:58 WBC 45.8 H* RBC 4.47 Hgb 10.1 L Hct 31.8 L MCV 71 L MCH 22.6 L MCHC 31.9 L RDW 20.2 H Plt Count 446 Sodium 137.6 Potassium 3.1 L Chloride 92 L Carbon Dioxide 37 H Anion Gap 9 BUN 43 H Creatinine 1.46 H Est GFR ( Amer) 41 L Glucose 88 Calcium 9.0 Magnesium 2.0 Assessment & Plan - Diagnosis (1) Wound dehiscence Is this a current diagnosis for this admission?: Yes Plan: Abscess stump partially. Will start Santyl ointment dressing changes. - Time Time Spent with patient: Less than 15 minutes
[2019-07-31] MEDS: COLLAGENASE CLOSTRIDIUM HIST. OINT 30 GM TOP SCH (09:42)
[2019-07-31] MEDS: BUSPIRONE HCL 10 MG TABLET PO SCH ×2 (10:44→21:52)
[2019-07-31] MEDS: CLOPIDOGREL BISULFATE 75 MG TABLET PO SCH (10:44)
[2019-07-31] MEDS: GABAPENTIN 300 MG CAPSULE PO SCH ×2 (10:44→21:54)
[2019-07-31] MEDS: POLYETHYLENE GLYCOL 3350 POWDER 17 GM/1 PACKET PO SCH (10:45)
[2019-07-31] MEDS: FUROSEMIDE 40 MG TABLET PO SCH (10:45)
[2019-07-31] MEDS: ASPIRIN 81 MG TABLET, ENT COATED PO SCH (10:45)
[2019-07-31] MEDS: DOCUSATE SODIUM 100 MG CAPSULE PO SCH (10:45)
[2019-07-31] MEDS: SERTRALINE HCL 50 MG TABLET PO SCH (10:45)
[2019-07-31] MEDS: METOPROLOL SUCCINATE 50 MG TAB.SR.24H PO SCH ×2 (10:45→22:00)
[2019-07-31] MEDS: RANOLAZINE 500 MG TAB.SR.12H PO SCH ×2 (10:46→21:55)
[2019-07-31] MEDS: CHLORTHALIDONE 25 MG TABLET PO SCH (10:46)
[2019-07-31] MEDS: SITAGLIPTIN PHOSPHATE 50 MG TABLET PO SCH (10:46)
[2019-07-31] MEDS: INSULIN GLARGINE,HUM.REC.ANLOG 1,000 UNIT/10 ML VIAL SUBCUT SCH ×2 (10:52→22:05)
[2019-07-31] MEDS ORDERED: NORMAL SALINE 1000 ML 1,000 ML IV PRN (11:45)
--- NOTE | 2019-07-31 16:14 | PDOC PROGRESS REPORT ---
Subjective Progress Note for:: 07/31/19 Subjective:: This is an 84-year-old female who underwent left below-knee amputation in May. She follow-up with surgery clinic yesterday and was noted to have a wound dehiscence hence was sent to the hospital for admission. She underwent excisional debridement by surgery yesterday. No acute event overnight. She denies acute complaints upon encounter. She is AO x 3. There is erythema on the site of dehiscence but no discharge. Reason For Visit: DEHISCED LEFT BKA INCISION Physical Exam Vital Signs: Temp Pulse Resp BP Pulse Ox 98.0 F 89 13 105/45 L 100 07/31/19 11:12 07/31/19 11:12 07/31/19 11:12 07/31/19 11:12 07/31/19 11:12 Intake & Output 07/30/19 07/31/19 08/01/19 06:59 06:59 06:59 Intake Total 476 1824 Output Total 650 Balance -174 1824 Weight 148 lb 5.938 oz General appearance: PRESENT: no acute distress, well-developed, well-nourished Head exam: PRESENT: atraumatic, normocephalic Eye exam: PRESENT: conjunctiva pink, EOMI, PERRLA. ABSENT: scleral icterus Ear exam: PRESENT: normal external ear exam Mouth exam: PRESENT: moist, tongue midline Neck exam: ABSENT: carotid bruit, JVD, lymphadenopathy, thyromegaly Respiratory exam: PRESENT: clear to auscultation carmen. ABSENT: rales, rhonchi, wheezes Cardiovascular exam: PRESENT: RRR. ABSENT: diastolic murmur, rubs, systolic murmur Pulses: PRESENT: normal dorsalis pedis pul GI/Abdominal exam: PRESENT: normal bowel sounds, soft. ABSENT: distended, guarding, mass, organolmegaly, rebound, tenderness Rectal exam: PRESENT: deferred Extremities exam: PRESENT: other - There is erythema on the site of dehiscence but no discharge. Neurological exam: PRESENT: alert, awake, oriented to person, oriented to place, oriented to time, CN II-XII grossly intact. ABSENT: motor sensory deficit Results Laboratory Results: 07/31/19 04:58 07/31/19 04:58 07/31/19 07/31/19 04:58 04:58 WBC 45.8 H* RBC 4.47 Hgb 10.1 L Hct 31.8 L MCV 71 L MCH 22.6 L MCHC 31.9 L RDW 20.2 H Plt Count 446 Sodium 137.6 Potassium 3.1 L Chloride 92 L Carbon Dioxide 37 H Anion Gap 9 BUN 43 H Creatinine 1.46 H Est GFR ( Amer) 41 L Glucose 88 Calcium 9.0 Magnesium 2.0 Assessment and Plan - Diagnosis (1) Wound dehiscence Is this a current diagnosis for this admission?: Yes Plan: S/P excisional debridement by alberta yesterday. Surgery does not recommend antibiotic therapy at this time. (2) Hypokalemia Is this a current diagnosis for this admission?: Yes Plan: Replace with PO and IV KCl. (3) IMNAI (acute kidney injury) Is this a current diagnosis for this admission?: Yes Plan: Start normal saline at 75 cc/hr. (4) CAD (coronary artery disease) Qualifiers: Coronary Disease-Associated Artery/Lesion type: [place] artery [place] vs. transplanted heart: [place] heart Associated angina: without angina Qualified Code(s): I25.10 - Atherosclerotic heart disease of [place] coronary artery without angina pectoris Is this a current diagnosis for this admission?: Yes (5) Hypertension Qualifiers: Hypertension type: essential hypertension Qualified Code(s): I10 - Essential (primary) hypertension Is this a current diagnosis for this admission?: Yes (6) Myelodysplasia (myelodysplastic syndrome) Is this a current diagnosis for this admission?: Yes - Plan Summary Summary: 07/30/2019-the dehisced area will be addressed. The patient can follow-up with the wound care clinic as the dehiscence should not need any major surgical intervention. No antibiotics at this time however if the patient is febrile and there is erythema and drainage antibiotics will be initiated. We will institute gentle IV fluids for the acute kidney injury. - Time Time Spent with patient: 25-34 minutes
[2019-07-31] MEDS ORDERED: POTASSIUM CHLORIDE 10 MEQ TABLET.ER PO ONE (17:30)
[2019-07-31] MEDS ORDERED: POTASSI CL 20 MEQ/50 ML RIDER 20 MEQ/50 ML RTUPB IV ONE (17:30)
--- NOTE | 2019-07-31 17:56 | RADIOLOGY REPORT (SQ) ---
EXAM DESCRIPTION: CHEST SINGLE VIEW COMPLETED DATE/TIME: 07/31/2019 5:31 pm REASON FOR STUDY: assess for congestion, CHF pxt getting IV fluids COMPARISON: None. EXAM PARAMETERS: NUMBER OF VIEWS: One view. TECHNIQUE: Single frontal radiographic view of the chest acquired. RADIATION DOSE: NA LIMITATIONS: None. FINDINGS: LUNGS AND PLEURA: No opacities, masses or pneumothorax. No pleural effusion. MEDIASTINUM AND HILAR STRUCTURES: No masses. Contour normal. HEART AND VASCULAR STRUCTURES: Heart normal in size. Normal vasculature. BONES: No acute findings. HARDWARE: Loop recorder. OTHER: No other significant finding. IMPRESSION: NO ACUTE RADIOGRAPHIC FINDING IN THE CHEST. TECHNICAL DOCUMENTATION: JOB ID: [id number] [employer]- All Rights Reserved Reading location - IP/workstation name: [email or web address]
[2019-07-31] MEDS: ATORVASTATIN CALCIUM 40 MG TABLET PO SCH (21:54)
[2019-07-31] MEDS: TRAZODONE HCL 50 MG TABLET PO SCH (21:54)
[2019-08-01 05:43] LABS: HEMATOCRIT 31.3 % (36.0-47.0); HEMOGLOBIN 9.7 g/dL (12.0-15.5); MEAN CORPUSCULAR HEMOGLOBIN 22.4 pg (27.0-33.4); MEAN CORPUSCULAR HGB CONC 30.9 g/dL (32.0-36.0); MEAN CORPUSCULAR VOLUME 73 fl (80-97); PLATELET COUNT 416 10^3/uL (150-450); RED BLOOD COUNT 4.31 10^6/uL (3.72-5.28); RED CELL DISTRIBUTION WIDTH 20.3 % (11.5-14.0)
[2019-08-01] MEDS: PANTOPRAZOLE SODIUM 40 MG TABLET.DR PO SCH (05:58)
[2019-08-01 05:59] LABS: ANION GAP 9 (5-19); BLOOD UREA NITROGEN 33 mg/dL (7-20); CALCIUM 8.8 mg/dL (8.4-10.2); CARBON DIOXIDE 36 mmol/L (22-30); CHLORIDE 93 mmol/L (98-107); GLUCOSE 94 mg/dL (75-110); POTASSIUM 3.6 mmol/L (3.6-5.0)
[2019-08-01] MEDS: HYDROXYZINE HCL 10 MG TABLET PO SCH ×3 (06:13→21:45)
[2019-08-01] MEDS: HEPARIN SOD (PORCINE) 5,000 UNIT/ML 1 ML VIAL SUBCUT SCH ×3 (06:15→21:45)
[2019-08-01 06:21] LABS: ABSOLUTE LYMPHOCYTES# (MANUAL) 1.5 10^3/uL (0.5-4.7); ABSOLUTE MONOCYTES # (MANUAL) 0.7 10^3/uL (0.1-1.4); BAND NEUTROPHILS % (MANUAL) 1 % (3-5); BASOPHILS % (MANUAL) 1 % (0-2); EOSINOPHILS % (MANUAL) 2 % (0-6); LYMPHOCYTES % (MANUAL) 4 % (13-45); MONOCYTES % (MANUAL) 2 % (3-13); SEGMENTED NEUTROPHILS % (MAN) 90 % (42-78); TOTAL CELLS COUNTED 100
[2019-08-01 06:24] LABS: ANISOCYTOSIS 2+; BURR CELLS SLIGHT; HYPOCHROMASIA 1+; OVALOCYTES SLIGHT; PLATELET COMMENT ADEQUATE; PLATELET LARGE PRESENT; POIKILOCYTOSIS SLIGHT; POLYCHROMASIA SLIGHT; TEAR DROP CELLS SLIGHT; TOXIC GRANULATION SLIGHT
[2019-08-01 06:25] LABS: WHITE BLOOD COUNT 36.6 10^3/uL (4.0-10.5)
[2019-08-01] MEDS: INSULIN LISPRO 100 UNIT/ML 3 ML VIAL SUBCUT SCH ×4 (07:39→21:44)
[2019-08-01] MEDS: SITAGLIPTIN PHOSPHATE 50 MG TABLET PO SCH (10:19)
[2019-08-01] MEDS: RANOLAZINE 500 MG TAB.SR.12H PO SCH ×2 (10:19→21:48)
[2019-08-01] MEDS: CHLORTHALIDONE 25 MG TABLET PO SCH (10:19)
[2019-08-01] MEDS: BUSPIRONE HCL 10 MG TABLET PO SCH ×2 (10:20→21:46)
[2019-08-01] MEDS: METOPROLOL SUCCINATE 50 MG TAB.SR.24H PO SCH ×2 (10:20→21:46)
[2019-08-01] MEDS: FUROSEMIDE 40 MG TABLET PO SCH (10:20)
[2019-08-01] MEDS: SERTRALINE HCL 50 MG TABLET PO SCH (10:20)
[2019-08-01] MEDS: ASPIRIN 81 MG TABLET, ENT COATED PO SCH (10:20)
[2019-08-01] MEDS: GABAPENTIN 300 MG CAPSULE PO SCH ×2 (10:21→21:46)
[2019-08-01] MEDS: COLLAGENASE CLOSTRIDIUM HIST. OINT 30 GM TOP SCH (10:21)
[2019-08-01] MEDS: CLOPIDOGREL BISULFATE 75 MG TABLET PO SCH (10:21)
[2019-08-01] MEDS: DOCUSATE SODIUM 100 MG CAPSULE PO SCH (10:24)
[2019-08-01] MEDS: POLYETHYLENE GLYCOL 3350 POWDER 17 GM/1 PACKET PO SCH (10:24)
[2019-08-01] MEDS: INSULIN GLARGINE,HUM.REC.ANLOG 1,000 UNIT/10 ML VIAL SUBCUT SCH ×2 (10:24→21:44)
[2019-08-01] MEDS: ACETAMINOPHEN 325 MG TABLET PO PRN (15:13)
[2019-08-01] MEDS ORDERED: DEXTROSE 40% GEL 15 GM TUBE PO PRN ×2 (15:32)
[2019-08-01] MEDS ORDERED: DEXTROSE 50%-WATER 25 GM/50 ML DISP.SYRIN IV PRN ×2 (15:32)
[2019-08-01] MEDS ORDERED: GLUCAGON,HUMAN RECOMB 1 MG INJ SUBCUT PRN (15:32)
[2019-08-01] MEDS ORDERED: VANCOMYCIN HCL 0 MG in DEXTROSE 5%-WATER 250 ML IV NR (15:45)
[2019-08-01] MEDS: NORMAL SALINE 1000 ML 1,000 ML IV PRN (16:14)
[2019-08-01] MEDS: VANCOMYCIN HCL 1,000 MG in DEXTROSE 5%-WATER 250 ML IV SCH (18:02)
--- NOTE | 2019-08-01 18:50 | PDOC PROGRESS REPORT ---
Subjective Progress Note for:: 08/01/19 Subjective:: 84-year-old female with dehiscence and necrotic tissue evident on her left BKA stump. She reports severe pain, even with light touch. She has purple discoloration of portions of the incision. She denies chest pain, shortness of breath, fevers, or chills. Reason For Visit: DEHISCED LEFT BKA INCISION Physical Exam Vital Signs: Temp Pulse Resp BP Pulse Ox 97.5 F 87 12 96/53 L 98 08/01/19 08:00 08/01/19 08:00 08/01/19 08:00 08/01/19 08:00 08/01/19 08:00 Intake & Output 07/31/19 08/01/19 08/02/19 06:59 06:59 06:59 Intake Total 476 3024 Output Total 650 Balance -174 3024 Weight 67.3 kg 72.1 kg General appearance: PRESENT: no acute distress Head exam: PRESENT: atraumatic, normocephalic Eye exam: PRESENT: EOMI, PERRLA Neck exam: ABSENT: tenderness, thyromegaly, tracheal deviation, tracheostomy Respiratory exam: PRESENT: unlabored. ABSENT: tachypnea, wheezes GI/Abdominal exam: PRESENT: soft. ABSENT: distended, tenderness Neurological exam: PRESENT: alert, awake, CN II-XII grossly intact Psychiatric exam: ABSENT: agitated, anxious Skin exam: PRESENT: cyanosis - Left BKA stump, erythema, mottled - left BKA stump Results Laboratory Results: 08/01/19 03:59 08/01/19 03:59 07/31/19 08/01/19 08/01/19 18:50 03:59 03:59 WBC 36.6 H* RBC 4.31 Hgb 9.7 L Hct 31.3 L MCV 73 L MCH 22.4 L MCHC 30.9 L RDW 20.3 H Plt Count 416 Seg Neutrophils % Not Reportable Sodium 138.1 Potassium 3.6 Chloride 93 L Carbon Dioxide 36 H Anion Gap 9 BUN 33 H Creatinine 1.18 Est GFR ( Amer) 53 L Glucose 94 Lactic Acid Calcium 8.8 C-Reactive Protein 39.6 H 08/01/19 16:39 WBC RBC Hgb Hct MCV MCH MCHC RDW Plt Count Seg Neutrophils % Sodium Potassium Chloride Carbon Dioxide Anion Gap BUN Creatinine Est GFR ( Amer) Glucose Lactic Acid 2.6 H Calcium C-Reactive Protein Impressions: Chest X-Ray 07/31/19 16:12 IMPRESSION: NO ACUTE RADIOGRAPHIC FINDING IN THE CHEST. Assessment & Plan - Diagnosis (2) Leukocytosis Qualifiers: Leukocytosis type: unspecified Qualified Code(s): D72.829 - Elevated white blood cell count, unspecified Is this a current diagnosis for this admission?: Yes - Time Time Spent with patient: Less than 15 minutes - Plan Summary Plan Summary: This is an 84-year-old female with a necrotic appearing left below-knee amputation stump. The tissue does not appear healthy in the base of the wound. With her high white count and severe tenderness, I am suspicious that the ne crosis extends far beneath the skin. I have recommended surgical exploration, with debridement of any nonviable or necrotic tissue. Ultimately, the patient may require a higher level of amputation. This was discussed with the patient's family, who is very concerned about her care. They have requested an infectious disease consultation and transfer to [facility]. These concerns were relay ed to and discussed with Dr. Motley, the patient's attending of record. N.p.o. after midnight. Plan for surgical exploration tomorrow, unless transfer plans are arranged before then.
[2019-08-01] MEDS: ATORVASTATIN CALCIUM 40 MG TABLET PO SCH (21:47)
[2019-08-01] MEDS: TRAZODONE HCL 50 MG TABLET PO SCH (21:47)
[2019-08-02] MEDS: ACETAMINOPHEN 325 MG TABLET PO PRN ×2 (01:41→09:07)
[2019-08-02] MEDS: HEPARIN SOD (PORCINE) 5,000 UNIT/ML 1 ML VIAL SUBCUT SCH ×3 (06:27→21:56)
[2019-08-02] MEDS: HYDROXYZINE HCL 10 MG TABLET PO SCH (06:30)
[2019-08-02] MEDS: PANTOPRAZOLE SODIUM 40 MG TABLET.DR PO SCH (06:31)
[2019-08-02 08:21] LABS: HEMATOCRIT 30.4 % (36.0-47.0); HEMOGLOBIN 9.5 g/dL (12.0-15.5); MEAN CORPUSCULAR HEMOGLOBIN 22.6 pg (27.0-33.4); MEAN CORPUSCULAR HGB CONC 31.3 g/dL (32.0-36.0); MEAN CORPUSCULAR VOLUME 72 fl (80-97); PLATELET COUNT 352 10^3/uL (150-450); RED BLOOD COUNT 4.22 10^6/uL (3.72-5.28); RED CELL DISTRIBUTION WIDTH 20.8 % (11.5-14.0)
[2019-08-02] MEDS: INSULIN LISPRO 100 UNIT/ML 3 ML VIAL SUBCUT SCH ×4 (08:31→21:54)
[2019-08-02 08:38] LABS: ABSOLUTE LYMPHOCYTES# (MANUAL) 0.7 10^3/uL (0.5-4.7); ABSOLUTE MONOCYTES # (MANUAL) 0.7 10^3/uL (0.1-1.4); ALBUMIN 2.6 g/dL (3.5-5.0); ALKALINE PHOSPHATASE 272 U/L (38-126); ANION GAP 9 (5-19); ASPARTATE AMINO TRANSFERASE 25 U/L (14-36); BAND NEUTROPHILS % (MANUAL) 1 % (3-5); BASOPHILS % (MANUAL) 2 % (0-2); BILIRUBIN,DIRECT 0.7 mg/dL (0.0-0.4); BILIRUBIN,TOTAL 1.4 mg/dL (0.2-1.3); BLOOD UREA NITROGEN 36 mg/dL (7-20); CALCIUM 8.4 mg/dL (8.4-10.2); CARBON DIOXIDE 32 mmol/L (22-30); CHLORIDE 96 mmol/L (98-107); EOSINOPHILS % (MANUAL) 1 % (0-6); GLUCOSE 114 mg/dL (75-110); LYMPHOCYTES % (MANUAL) 1 % (13-45); MONOCYTES % (MANUAL) 2 % (3-13); POTASSIUM 3.1 mmol/L (3.6-5.0); SEGMENTED NEUTROPHILS % (MAN) 92 % (42-78); TOTAL CELLS COUNTED 100; TOTAL PROTEIN 6.8 g/dL (6.3-8.2)
[2019-08-02 08:40] LABS: ANISOCYTOSIS 2+; POLYCHROMASIA 1+; TOXIC VACUOLATION PRESENT
[2019-08-02 08:41] LABS: PLATELET COMMENT ADEQUATE; PLATELET GIANT PRESENT; STOMATOCYTES 1+
[2019-08-02 08:42] LABS: WHITE BLOOD COUNT 36.4 10^3/uL (4.0-10.5)
[2019-08-02] MEDS: METOPROLOL SUCCINATE 50 MG TAB.SR.24H PO SCH (09:04)
[2019-08-02] MEDS: POLYETHYLENE GLYCOL 3350 POWDER 17 GM/1 PACKET PO SCH (09:04)
[2019-08-02] MEDS: DOCUSATE SODIUM 100 MG CAPSULE PO SCH (09:05)
[2019-08-02] MEDS: NORMAL SALINE 1000 ML 1,000 ML IV PRN ×2 (09:09→23:50)
[2019-08-02] MEDS ORDERED: POTASSIUM CHLORIDE 10 MEQ TABLET.ER PO ONE ×2 (10:00→13:00)
--- NOTE | 2019-08-02 10:32 | PDOC PROGRESS REPORT ---
Subjective Progress Note for:: 08/02/19 Subjective:: No complaints at this time. Patient denies any pain at her stump. Reason For Visit: DEHISCED LEFT BKA INCISION Physical Exam Vital Signs: Temp Pulse Resp BP Pulse Ox 98.2 F 76 16 83/56 L 94 08/02/19 07:40 08/02/19 07:40 08/02/19 07:40 08/02/19 07:40 08/02/19 07:40 Intake & Output 08/01/19 08/02/19 08/03/19 06:59 06:59 06:59 Intake Total 3024 2886 Balance 3024 2886 Weight 72.1 kg 72.6 kg General appearance: PRESENT: no acute distress, cooperative Respiratory exam: PRESENT: clear to auscultation carmen Cardiovascular exam: PRESENT: RRR Extremities exam: PRESENT: other - Stump wound at portion with very thin rim of dark discoloration, subtle erythema but the skin feels soft with no fluctuance. And today she is not tender. There is no active drainage. Results Laboratory Results: 08/02/19 07:55 08/02/19 07:55 08/01/19 08/02/19 08/02/19 16:39 07:55 07:55 WBC 36.4 H* RBC 4.22 Hgb 9.5 L Hct 30.4 L MCV 72 L MCH 22.6 L MCHC 31.3 L RDW 20.8 H Plt Count 352 Seg Neutrophils % Not Reportable Sodium 136.8 L Potassium 3.1 L Chloride 96 L Carbon Dioxide 32 H Anion Gap 9 BUN 36 H Creatinine 1.52 H Est GFR ( Amer) 39 L Glucose 114 H Lactic Acid 2.6 H Calcium 8.4 Total Bilirubin 1.4 H AST 25 Alkaline Phosphatase 272 H Total Protein 6.8 Albumin 2.6 L 08/02/19 07:55 WBC RBC Hgb Hct MCV MCH MCHC RDW Plt Count Seg Neutrophils % Sodium Potassium Chloride Carbon Dioxide Anion Gap BUN Creatinine Est GFR ( Amer) Glucose Lactic Acid 1.7 Calcium Total Bilirubin AST Alkaline Phosphatase Total Protein Albumin Impressions: Chest X-Ray 07/31/19 16:12 IMPRESSION: NO ACUTE RADIOGRAPHIC FINDING IN THE CHEST. Assessment & Plan - Diagnosis (1) Wound dehiscence Is this a current diagnosis for this admission?: Yes Plan: The necrotic tissue is a very thin rim of skin and I do not see underlying tissue necrosis and I see no evidence of an undrained abscess. Patient has had a chronic history of leukocytosis although CLL diagnosis has been questioned in the past. Her marked leukocytosis is chronic. In short I do not think she is septic from her stump. However she did have a hypotension yesterday and perhaps she had some ischemic related stump pain due to hypotension. The hospitalist wishes for us to hold off surgery today and observe her today and adjust her medications. I do not think her surgical debridement is urgent based on the exam I am getting today. I suspect that she dehisced her wound secondary to ischemia of the stump. Will obtain noninvasive vascular study today. If it does demonstrate evidence of severely impaired arterial flow to the stump, patient would benefit from a [id number] amputation. I have had a discussion with the patient's daughter who agreed with the above-mentioned plan to hold off any surgical intervention till tomorrow. - Time Time Spent with patient: Less than 15 minutes
[2019-08-02] MEDS: BUSPIRONE HCL 10 MG TABLET PO SCH ×2 (12:08→21:56)
[2019-08-02] MEDS: GABAPENTIN 300 MG CAPSULE PO SCH ×2 (12:08→21:56)
[2019-08-02] MEDS: SERTRALINE HCL 50 MG TABLET PO SCH (12:09)
[2019-08-02] MEDS: ASPIRIN 81 MG TABLET, ENT COATED PO SCH (12:09)
[2019-08-02] MEDS: SITAGLIPTIN PHOSPHATE 50 MG TABLET PO SCH (12:11)
[2019-08-02] MEDS: INSULIN GLARGINE,HUM.REC.ANLOG 1,000 UNIT/10 ML VIAL SUBCUT SCH ×2 (12:11→21:55)
--- NOTE | 2019-08-02 12:59 | XCELERA REPORT ---
[address] [address] Lower Extremity Arterial Evaluation Name: ORACIO PEDROZA Age: 84 yrs Gender: Female : 1935 Patient Status: Inpatient Patient Location: [address] [place], [place] [id number] Study Date: 08/02/2019 10:01 AM Procedure: A color flow and duplex scan of the lower extremity arteries was performed on the left with velocity and waveform anaylsis. 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 Left Side Arterial Evaluation Limited by a Below knee amputation. Normal velocity and triphasic waveforms noted in the Common Femoral artery/femoral. Biphasic with normal velocity in the Popliteal artery. Interpretation Summary Arterial disease with moderate hemodynamic consequence in the left Popliteal area. A left Below knee amputation is noted. Very limited study on the right may suggest significant disease. : MYA TURPIN > Simeon Pedroza
--- NOTE | 2019-08-02 13:35 | RADIOLOGY REPORT (SQ) ---
EXAM DESCRIPTION: CHEST SINGLE VIEW COMPLETED DATE/TIME: 08/02/2019 12:58 pm REASON FOR STUDY: assess for congestion COMPARISON: CT chest 08/04/2018 AP chest 07/31/2019, 08/04/2018 EXAM PARAMETERS: NUMBER OF VIEWS: One view. TECHNIQUE: Single frontal radiographic view of the chest acquired. RADIATION DOSE: NA LIMITATIONS: Portable film, rotated towards the NIGERIEN position FINDINGS: LUNGS AND PLEURA: No opacities, masses or pneumothorax. No pleural effusion. MEDIASTINUM AND HILAR STRUCTURES: No masses. Contour normal. HEART AND VASCULAR STRUCTURES: Heart normal in size. Normal vasculature. BONES: No acute findings. HARDWARE: Loop recorder over the anterior left chest OTHER: No other significant finding. IMPRESSION: NO ACUTE RADIOGRAPHIC FINDING IN THE CHEST. TECHNICAL DOCUMENTATION: JOB ID: [id number] [employer]- All Rights Reserved Reading location - IP/workstation name: [email or web address]
[2019-08-02] MEDS: HYDROXYZINE PAMOATE 25 MG CAPSULE PO SCH ×2 (14:10→21:57)
[2019-08-02] MEDS: POTASSI CL 20 MEQ/50 ML RIDER 20 MEQ/50 ML RTUPB IV SCH ×3 (14:37→20:28)
--- NOTE | 2019-08-02 16:35 | PDOC PROGRESS REPORT ---
Subjective Progress Note for:: 08/02/19 Subjective:: This is an 84-year-old female who underwent left below-knee amputation in May. She follow-up with surgery clinic yesterday and was noted to have a wound dehiscence hence was sent to the hospital for admission. She underwent excisional debridement by surgery yesterday. 07/31: She denies acute complaints upon encounter. She is AO x 3. There is erythema on the site of dehiscence but no discharge. 08/01: No acute event overnight. Denies acute complaints. Surgery evaluated her this morning and recommends possible I&D vs possible revision. 08/02: Patient apparently had episodes of hypotension yesterday afternoon. Blood pressures this morning running in the low normal end. Her creatinine did trend up to 1.5. Potassium trended down this morning. Recommend to hold off on surgery today. Reason For Visit: DEHISCED LEFT BKA INCISION Physical Exam Vital Signs: Temp Pulse Resp BP Pulse Ox 98.2 F 76 16 83/56 L 94 08/02/19 07:40 08/02/19 07:40 08/02/19 07:40 08/02/19 07:40 08/02/19 07:40 Intake & Output 08/01/19 08/02/19 08/03/19 06:59 06:59 06:59 Intake Total 3024 2886 Balance 3024 2886 Weight 158 lb 15.253 oz 160 lb 0.889 oz General appearance: PRESENT: no acute distress, well-developed, well-nourished Head exam: PRESENT: atraumatic, normocephalic Eye exam: PRESENT: conjunctiva pink, EOMI, PERRLA. ABSENT: scleral icterus Ear exam: PRESENT: normal external ear exam Mouth exam: PRESENT: moist, tongue midline Neck exam: ABSENT: carotid bruit, JVD, lymphadenopathy, thyromegaly Respiratory exam: PRESENT: clear to auscultation carmen. ABSENT: rales, rhonchi, wheezes Cardiovascular exam: PRESENT: RRR. ABSENT: diastolic murmur, rubs, systolic murmur Pulses: PRESENT: normal dorsalis pedis pul GI/Abdominal exam: PRESENT: normal bowel sounds, soft. ABSENT: distended, guarding, mass, organolmegaly, rebound, tenderness Rectal exam: PRESENT: deferred Extremities exam: PRESENT: other - There is erythema around the edges of the stump, no purulent discharge on decreased wound Neurological exam: PRESENT: alert, awake, oriented to person, CN II-XII grossly intact. ABSENT: motor sensory deficit Results Laboratory Results: 08/02/19 07:55 08/02/19 07:55 08/01/19 08/02/19 08/02/19 16:39 07:55 07:55 WBC 36.4 H* RBC 4.22 Hgb 9.5 L Hct 30.4 L MCV 72 L MCH 22.6 L MCHC 31.3 L RDW 20.8 H Plt Count 352 Seg Neutrophils % Not Reportable Sodium 136.8 L Potassium 3.1 L Chloride 96 L Carbon Dioxide 32 H Anion Gap 9 BUN 36 H Creatinine 1.52 H Est GFR ( Amer) 39 L Glucose 114 H Lactic Acid 2.6 H Calcium 8.4 Total Bilirubin 1.4 H AST 25 Alkaline Phosphatase 272 H Total Protein 6.8 Albumin 2.6 L 08/02/19 07:55 WBC RBC Hgb Hct MCV MCH MCHC RDW Plt Count Seg Neutrophils % Sodium Potassium Chloride Carbon Dioxide Anion Gap BUN Creatinine Est GFR ( Amer) Glucose Lactic Acid 1.7 Calcium Total Bilirubin AST Alkaline Phosphatase Total Protein Albumin Impressions: Chest X-Ray 07/31/19 16:12 IMPRESSION: NO ACUTE RADIOGRAPHIC FINDING IN THE CHEST. Assessment and Plan - Diagnosis (1) Wound dehiscence Is this a current diagnosis for this admission?: Yes Plan: 07/31: S/P excisional debridement by alberta yesterday. Surgery does not recommend antibiotic therapy at this time. 08/01: Surgery evaluated her this morning and recommends possible I&D vs possible revision. 08/02: There is erythema around the edges of the stump, no purulent discharge on dehesced wound. Her WBC is an unreliable indicator due to her CLL. She did have elevated CRP, ESR and lactic acid. Started patient on IV antibiotics. Will consult ID for further recommendations. (2) Hypokalemia Is this a current diagnosis for this admission?: Yes Plan: Replacement ordered. (3) IMANI (acute kidney injury) Is this a current diagnosis for this admission?: Yes Plan: 07/31: Start normal saline at 75 cc/hr. 08/01: Resolving with IV fluids. 08/02: Creatinine trended up again likely due to episodes of hypotension. Antihypertensives held. (4) Hypertension Qualifiers: Hypertension type: essential hypertension Qualified Code(s): I10 - Essential (primary) hypertension Is this a current diagnosis for this admission?: Yes Plan: Blood pressures running low. (5) CAD (coronary artery disease) Qualifiers: Coronary Disease-Associated Artery/Lesion type: [place] artery [place] vs. transplanted heart: [place] heart Associated angina: without angina Qualified Code(s): I25.10 - Atherosclerotic heart disease of [place] coronary artery without angina pectoris Is this a current diagnosis for this admission?: Yes (6) Myelodysplasia (myelodysplastic syndrome) Is this a current diagnosis for this admission?: Yes - Plan Summary Summary: 07/30/2019-the dehisced area will be addressed. The patient can follow-up with the wound care clinic as the dehiscence should not need any major surgical intervention. No antibiotics at this time however if the patient is febrile and there is erythema and drainage antibiotics will be initiated. We will institute gentle IV fluids for the acute kidney injury. - Time Time Spent with patient: 25-34 minutes
[2019-08-02 17:18] LABS: ANION GAP 6 (5-19); BLOOD UREA NITROGEN 32 mg/dL (7-20); CARBON DIOXIDE 33 mmol/L (22-30); CHLORIDE 96 mmol/L (98-107); GLUCOSE 149 mg/dL (75-110); POTASSIUM 3.4 mmol/L (3.6-5.0)
[2019-08-02] MEDS: CEFEPIME 1 GM/D5W RTU 1 GM/50 ML RTUPB IV SCH (17:22)
[2019-08-02] MEDS: VANCOMYCIN HCL 1,000 MG in DEXTROSE 5%-WATER 250 ML IV SCH (18:16)
[2019-08-02] MEDS: TRAZODONE HCL 50 MG TABLET PO SCH (21:55)
[2019-08-02] MEDS: ATORVASTATIN CALCIUM 40 MG TABLET PO SCH (21:55)
[2019-08-03] MEDS: HEPARIN SOD (PORCINE) 5,000 UNIT/ML 1 ML VIAL SUBCUT SCH ×3 (05:15→21:07)
--- NOTE | 2019-08-03 07:14 | Progress Note ---
Provider Note Provider Note: [facility] Telephone Advice Consultation Chart reviewed and discussed with attending physician. Patient is an 84-year-old woman with multiple comorbid conditions including MDS, DM, CAD s/p ME, atrial fibrillation, CHF, hyperlipidemia, hypertension, peripheral vascular disease and chronic DFIs s/p left BKA. She had osteomyelitis of the left foot with abscess and gas back in May. Wound cultures were positive for MRSA. The foot couldn't be salvaged, therefore a decision was made to proceed with BKA. On 07/31 patient was admitted due to wound dehiscence. Per first surgery note, there was necrotic tissue of the skin and subcutaneous tissue, no pus or sign of infection but ischemia. Patient had debridement of the wound, a culture is in process but GPC are seen in Gram stain. Further evaluation by surgery determined that the wound was not healing and that patient will require exploration of the wound in the OR to determine the extent of the wound and depth. She has MDS therefore, persistent leukocytos. Blood cultures from admission remain negative. ID consulted for recommendations. PMH: CAD DM Atrial fibrillation MDS CHF Hypertension PSH: BKA 05/2019 Allergies: morphine Allergy (Mild, Verified 04/06/19 15:24) Penicillins Allergy (Unknown, Verified 08/02/19 11:03) Medications: Acetaminophen [Tylenol 325 mg Tablet] 650 mg PO Q4HP PRN 07/31/19 Ascorbic Acid [Vitamin C 500 mg Tablet] 500 mg PO DAILY 07/31/19 Aspirin [Ecotrin 81 mg EC Tablet] 81 mg PO DAILY 07/31/19 Buspirone HCl [Buspar 15 mg Tablet] 1 tab PO BID 07/31/19 Chlorthalidone [Hygroton 25 mg Tablet] 25 mg PO DAILY 07/31/19 Clopidogrel Bisulfate [Plavix 75 mg Tablet] 75 mg PO DAILY 07/31/19 Docusate Sodium [Colace 100 mg Capsule] 100 mg PO DAILY 07/31/19 Furosemide [Lasix 40 mg Tablet] 40 mg PO DAILY 07/31/19 Gabapentin [Neurontin 300 mg Capsule] 300 mg PO Q12 07/31/19 Hydrocodone/Acetaminophen [[place]ita 5-325 mg Tablet] 1 tab PO Q6HP PRN 07/31/19 Hydroxyzine HCl [Atarax 25 mg Tablet] 1 tab PO Q8HP PRN 07/31/19 Insulin Detemir [Levemir Insulin 100 units/mL Insulin Pen] 22 unit SUBCUT DAILY 07/31/19 Insulin Detemir [Levemir Insulin 100 units/mL Insulin Pen] 25 unit SUBCUT QHS 07/31/19 Loperamide HCl [Imodium 2 mg Capsule] 2 mg PO Q6HP PRN 07/31/19 Metoprolol Succinate [Toprol Xl 50 mg Tab.sr] 50 mg PO Q12 07/31/19 Mirtazapine [Remeron 15 mg Tablet] 7.5 mg PO ACSUPPER 07/31/19 Multivitamin/Iron/Folic Acid [Cerovite Advanced Form Tab] 1 each PO DAILY 07/31/19 Mupirocin [Bactroban 2% Ointment 22 gm] 1 applic TP BID 07/31/19 Nitroglycerin [Nitrostat 0.4 mg (1/150 Gr) Tabs 25/Bottle] 1 tab SL Q5MP PRN 07/31/19 Nystatin [Mycostatin Topical Powder 15 gm] 1 applic TP BID 07/31/19 Ondansetron HCl [Zofran 4 mg Tablet] 1 tab PO Q8HP PRN 07/31/19 Pantoprazole Sodium [Protonix [address] Tablet] 40 mg PO Q6AM 07/31/19 Polyethylene Glycol 3350 [Miralax Powder 17 gm/Packet] 1 packet PO DAILY 07/31/19 Potassium Chloride [Klor-Con M20] 40 meq PO Q12 07/31/19 Ranolazine [Ranexa 500 mg Tab.sr] 500 mg PO Q12 07/31/19 Rosuvastatin Calcium [Crestor] 40 mg PO QHS 07/31/19 Sennosides/Docusate Sodium [Senna Plus 8.6-50 mg Tablet] 1 each PO DAILYP PRN 07/31/19 Sertraline HCl [Zoloft] 25 mg PO DAILY 07/31/19 Sitagliptin Phosphate [Januvia 50 mg Tablet] 50 mg PO DAILY 07/31/19 Trazodone HCl [Desyrel 50 mg Tablet] 50 mg PO QHS 07/31/19 Vital Signs Temp Pulse Resp BP Pulse Ox 97.2 F 75 12 90/45 L 100 08/02/19 14:00 08/02/19 14:00 08/02/19 14:00 08/02/19 14:00 08/02/19 14:00 Intake & Output 08/01/19 08/02/19 08/03/19 06:59 06:59 06:59 Intake Total 3024 2886 Balance 3024 2886 Weight 72.1 kg 72.6 kg Weight/Height Weight 72.6 kg Height 5 ft 5 in Laboratories: 08/02/19 07:55 08/02/19 07:55 MCV 72 fl (80-97) L 08/02/19 07:55 MCH 22.6 pg (27.0-33.4) L 08/02/19 07:55 MCHC 31.3 g/dL (32.0-36.0) L 08/02/19 07:55 RDW 20.8 % (11.5-14.0) H 08/02/19 07:55 Seg Neutrophils % Not Reportable 08/02/19 07:55 Chloride 96 mmol/L (98-107) L 08/02/19 07:55 Carbon Dioxide 32 mmol/L (22-30) H 08/02/19 07:55 Anion Gap 9 (5-19) 08/02/19 07:55 Est GFR ( Amer) 39 (>60) L 08/02/19 07:55 Glucose 114 mg/dL (75-110) H 08/02/19 07:55 Lactic Acid 1.7 mmol/L (0.7-2.1) 08/02/19 07:55 Calcium 8.4 mg/dL (8.4-10.2) 08/02/19 07:55 Magnesium 1.8 mg/dL (1.6-2.3) 08/02/19 07:55 Total Bilirubin 1.4 mg/dL (0.2-1.3) H 08/02/19 07:55 AST 25 U/L (14-36) 08/02/19 07:55 Alkaline Phosphatase 272 U/L (38-126) H 08/02/19 07:55 C-Reactive Protein 39.6 mg/L (<10.0) H 07/31/19 18:50 Total Protein 6.8 g/dL (6.3-8.2) 08/02/19 07:55 Albumin 2.6 g/dL (3.5-5.0) L 08/02/19 07:55 Microbiology: Blood culture 07/31 NGTD Wound culture 08/02 GPC Assessment and recommendations: Case reviewed for wound dehiscence suspected infected wound vs ischemia. Patient s/p BKA and dehiscence of the stump. Initially low suspicion for infection per surgery, but now concerned about worsening appearance of the wound that may be due to infection or peripheral vascular disease/ischemia. She was started on vancomycin which is appropriate considering his history of MRSA infection. Considering that she had surgery, she would be at risk of other infections as GNR and anaerobes, therefore consider adding cefepime (she tolerated cephalosporins in the past) and metronidazole until she is taken to the OR for exploration and deep tissue can be send for cultures. Duration of antibiotics will depend on the depth of the infection if there is an infection. If it is all due to ischemia, she might need further amputation (AKA). January Guaman MD [facility] [phone]
[2019-08-03] MEDS: CEFEPIME 1 GM/D5W RTU 1 GM/50 ML RTUPB IV SCH ×2 (07:26→17:48)
[2019-08-03] MEDS: PANTOPRAZOLE SODIUM 40 MG TABLET.DR PO SCH (07:26)
[2019-08-03] MEDS: HYDROXYZINE PAMOATE 25 MG CAPSULE PO SCH ×3 (07:26→21:09)
[2019-08-03 09:10] LABS: ANION GAP 7 (5-19); BLOOD UREA NITROGEN 24 mg/dL (7-20); CALCIUM 8.9 mg/dL (8.4-10.2); CARBON DIOXIDE 28 mmol/L (22-30); CHLORIDE 104 mmol/L (98-107); GLUCOSE 152 mg/dL (75-110); POTASSIUM 4.2 mmol/L (3.6-5.0)
--- NOTE | 2019-08-03 09:51 | PDOC PROGRESS REPORT ---
Subjective Progress Note for:: 08/03/19 Reason For Visit: DEHISCED LEFT BKA INCISION Physical Exam Vital Signs: Temp Pulse Resp BP Pulse Ox 98.7 F 103 H 18 144/62 H 100 08/03/19 03:13 08/03/19 03:13 08/03/19 03:13 08/03/19 03:13 08/03/19 03:13 Intake & Output 08/02/19 08/03/19 08/04/19 06:59 06:59 06:59 Intake Total 2886 1870 Output Total 811 Balance 2886 1059 Weight 72.6 kg 73.1 kg General appearance: PRESENT: no acute distress Head exam: PRESENT: normocephalic Eye exam: PRESENT: EOMI Mouth exam: PRESENT: moist Neck exam: PRESENT: full ROM Respiratory exam: PRESENT: clear to auscultation carmen Cardiovascular exam: PRESENT: RRR Pulses: PRESENT: normal femoral pulses Vascular exam: PRESENT: normal capillary refill GI/Abdominal exam: PRESENT: soft Rectal exam: PRESENT: deferred Extremities exam: PRESENT: other - Left BKA stump slight dehiscence with small 1 cm area of superficial necrosis the lateral aspect of the skin incision is granulating as is the medial aspect Psychiatric exam: PRESENT: appropriate affect Skin exam: PRESENT: dry Results Laboratory Results: 08/02/19 07:55 08/03/19 08:10 08/02/19 08/02/19 08/03/19 07:55 16:45 08:10 Sodium 134.7 L 138.9 Potassium 3.4 L 4.2 Chloride 96 L 104 Carbon Dioxide 33 H 28 Anion Gap 6 7 BUN 32 H 24 H Creatinine 1.13 0.79 Est GFR ( Amer) 56 L > 60 Glucose 149 H 152 H Calcium 8.0 L 8.9 Magnesium 1.8 Impressions: Chest X-Ray 08/02/19 00:00 IMPRESSION: NO ACUTE RADIOGRAPHIC FINDING IN THE CHEST. Assessment & Plan - Time Time Spent with patient: 25-34 minutes - Plan Summary Plan Summary: Patient's left BKA stump wound infection the wound appears to be granulating medially and laterally in the center of the wound there is still a 1 cm area of skin necrosis that is superficial. Discussed with daughter will start Santyl dressing changes graph the Doppler vascular exam from yesterday showed adequate flow to the stump.
[2019-08-03] MEDS: INSULIN LISPRO 100 UNIT/ML 3 ML VIAL SUBCUT SCH ×4 (10:33→21:07)
[2019-08-03] MEDS: DOCUSATE SODIUM 100 MG CAPSULE PO SCH (10:34)
[2019-08-03] MEDS: NORMAL SALINE 1000 ML 1,000 ML IV PRN (10:36)
[2019-08-03] MEDS: ASPIRIN 81 MG TABLET, ENT COATED PO SCH (10:37)
[2019-08-03] MEDS: GABAPENTIN 300 MG CAPSULE PO SCH ×2 (10:37→21:06)
[2019-08-03] MEDS: SERTRALINE HCL 50 MG TABLET PO SCH (10:38)
[2019-08-03] MEDS: BUSPIRONE HCL 10 MG TABLET PO SCH ×2 (10:38→21:06)
[2019-08-03] MEDS: POTASSIUM CHLORIDE 10 MEQ TABLET.ER PO SCH (10:38)
[2019-08-03] MEDS: POLYETHYLENE GLYCOL 3350 POWDER 17 GM/1 PACKET PO SCH (10:39)
[2019-08-03] MEDS: INSULIN GLARGINE,HUM.REC.ANLOG 1,000 UNIT/10 ML VIAL SUBCUT SCH ×2 (10:39→21:06)
[2019-08-03] MEDS: SITAGLIPTIN PHOSPHATE 50 MG TABLET PO SCH (10:39)
[2019-08-03] MEDS: ACETAMINOPHEN 325 MG TABLET PO PRN ×2 (12:23→21:08)
[2019-08-03] MEDS: COLLAGENASE CLOSTRIDIUM HIST. OINT 30 GM TP SCH ×2 (13:58→17:52)
[2019-08-03] MEDS: VANCOMYCIN HCL 1,000 MG in DEXTROSE 5%-WATER 250 ML IV SCH (19:13)
[2019-08-03] MEDS: ATORVASTATIN CALCIUM 40 MG TABLET PO SCH (21:06)
[2019-08-03] MEDS: TRAZODONE HCL 50 MG TABLET PO SCH (21:09)
[2019-08-03] MEDS ORDERED: TRAMADOL HCL 50 MG TABLET PO ONE (23:00)
[2019-08-04] MEDS: NORMAL SALINE 1000 ML 1,000 ML IV PRN (05:39)
[2019-08-04] MEDS: CEFEPIME 1 GM/D5W RTU 1 GM/50 ML RTUPB IV SCH ×2 (05:39→17:51)
[2019-08-04] MEDS: PANTOPRAZOLE SODIUM 40 MG TABLET.DR PO SCH (05:40)
[2019-08-04] MEDS: HYDROXYZINE PAMOATE 25 MG CAPSULE PO SCH ×3 (05:40→21:20)
[2019-08-04] MEDS: ACETAMINOPHEN 325 MG TABLET PO PRN ×3 (05:40→21:10)
[2019-08-04] MEDS: HEPARIN SOD (PORCINE) 5,000 UNIT/ML 1 ML VIAL SUBCUT SCH ×3 (05:41→21:12)
[2019-08-04] MEDS: INSULIN LISPRO 100 UNIT/ML 3 ML VIAL SUBCUT SCH ×4 (08:04→21:13)
--- NOTE | 2019-08-04 08:23 | PDOC PROGRESS REPORT ---
Subjective Progress Note for:: 08/04/19 Reason For Visit: DEHISCED LEFT BKA INCISION Patient had slightly increased pain with the use of Santyl on the stump yesterday. Physical Exam Vital Signs: Temp Pulse Resp BP Pulse Ox 98.4 F 120 H 17 123/51 L 98 08/03/19 23:42 08/03/19 23:42 08/03/19 23:42 08/03/19 23:42 08/03/19 23:42 Intake & Output 08/03/19 08/04/19 08/05/19 06:59 06:59 06:59 Intake Total 1870 3192 50 Output Total 811 3301 Balance 1059 -109 50 Weight 73.1 kg 67.7 kg General appearance: PRESENT: no acute distress Head exam: PRESENT: normocephalic Eye exam: PRESENT: EOMI Ear exam: PRESENT: normal external ear exam Mouth exam: PRESENT: moist Neck exam: PRESENT: full ROM Respiratory exam: PRESENT: clear to auscultation carmen Cardiovascular exam: PRESENT: RRR Pulses: PRESENT: normal radial pulses, normal femoral pulses Vascular exam: PRESENT: normal capillary refill GI/Abdominal exam: PRESENT: soft Rectal exam: PRESENT: deferred Extremities exam: PRESENT: other - The right BKA stump appears improved. The central 1 cm area of necrosis has improved since yesterday using the Santyl ointment. Minimal bedside treatment removed the subcutaneous necrotic tissue from the center of the BKA stump. The lateral aspects are granulating. Musculoskeletal exam: PRESENT: full ROM Neurological exam: PRESENT: alert, awake, oriented to person, oriented to place Psychiatric exam: PRESENT: anxious Results Laboratory Results: 08/02/19 07:55 08/03/19 08:10 08/03/19 08:10 Sodium 138.9 Potassium 4.2 Chloride 104 Carbon Dioxide 28 Anion Gap 7 BUN 24 H Creatinine 0.79 Est GFR ( Amer) > 60 Glucose 152 H Calcium 8.9 Impressions: Chest X-Ray 08/02/19 00:00 IMPRESSION: NO ACUTE RADIOGRAPHIC FINDING IN THE CHEST. Assessment & Plan - Time Time Spent with patient: 25-34 minutes - Plan Summary Plan Summary: Pression right BKA stump dehiscence. Now improving with dressing changes. Would DC the Santyl ointment and continue with wet-to-dry. Okay from surgical standpoint for patient to return to the nursing facility and followed in wound clinic.
[2019-08-04] MEDS: SERTRALINE HCL 50 MG TABLET PO SCH (09:34)
[2019-08-04] MEDS: GABAPENTIN 300 MG CAPSULE PO SCH ×2 (09:34→21:11)
[2019-08-04] MEDS: ASPIRIN 81 MG TABLET, ENT COATED PO SCH (09:34)
[2019-08-04] MEDS: DOCUSATE SODIUM 100 MG CAPSULE PO SCH (09:34)
[2019-08-04] MEDS: POTASSIUM CHLORIDE 10 MEQ TABLET.ER PO SCH (09:34)
[2019-08-04] MEDS: TRAMADOL HCL 50 MG TABLET PO PRN ×2 (09:35→17:51)
[2019-08-04] MEDS: BUSPIRONE HCL 10 MG TABLET PO SCH ×2 (09:35→21:11)
[2019-08-04] MEDS: POLYETHYLENE GLYCOL 3350 POWDER 17 GM/1 PACKET PO SCH (09:36)
[2019-08-04] MEDS: SITAGLIPTIN PHOSPHATE 50 MG TABLET PO SCH (09:36)
[2019-08-04] MEDS: INSULIN GLARGINE,HUM.REC.ANLOG 1,000 UNIT/10 ML VIAL SUBCUT SCH ×2 (09:39→21:12)
[2019-08-04] MEDS: COLLAGENASE CLOSTRIDIUM HIST. OINT 30 GM TP SCH ×2 (11:34→17:50)
[2019-08-04] MEDS: VANCOMYCIN HCL 1,000 MG in DEXTROSE 5%-WATER 250 ML IV SCH (19:27)
[2019-08-04] MEDS: TRAZODONE HCL 50 MG TABLET PO SCH (21:11)
[2019-08-04] MEDS: ATORVASTATIN CALCIUM 40 MG TABLET PO SCH (21:11)
[2019-08-05] MEDS: PANTOPRAZOLE SODIUM 40 MG TABLET.DR PO SCH (05:27)
[2019-08-05] MEDS: HEPARIN SOD (PORCINE) 5,000 UNIT/ML 1 ML VIAL SUBCUT SCH ×3 (05:27→21:21)
[2019-08-05] MEDS: CEFEPIME 1 GM/D5W RTU 1 GM/50 ML RTUPB IV SCH ×2 (05:27→17:17)
[2019-08-05] MEDS: HYDROXYZINE PAMOATE 25 MG CAPSULE PO SCH ×3 (05:28→21:27)
[2019-08-05] MEDS: TRAMADOL HCL 50 MG TABLET PO PRN ×3 (05:28→21:21)
--- NOTE | 2019-08-05 08:15 | PDOC PROGRESS REPORT ---
Subjective Progress Note for:: 08/05/19 Subjective:: feels better min pain in bka stump Reason For Visit: DEHISCED LEFT BKA INCISION Physical Exam Vital Signs: Temp Pulse Resp BP Pulse Ox 97.7 F 119 H 18 96/58 L 90 L 08/05/19 00:33 08/05/19 00:33 08/05/19 00:33 08/05/19 00:33 08/05/19 00:33 Intake & Output 08/04/19 08/05/19 08/06/19 06:59 06:59 06:59 Intake Total 3192 1982 Output Total 3301 4182 Balance -109 -2200 Weight 67.7 kg 67.8 kg General appearance: PRESENT: no acute distress Head exam: PRESENT: normocephalic Eye exam: PRESENT: EOMI Mouth exam: PRESENT: moist Neck exam: PRESENT: full ROM Respiratory exam: PRESENT: clear to auscultation carmen Cardiovascular exam: PRESENT: RRR Pulses: PRESENT: normal radial pulses, normal femoral pulses Vascular exam: PRESENT: normal capillary refill GI/Abdominal exam: PRESENT: soft Rectal exam: PRESENT: deferred Extremities exam: PRESENT: other - left bka stump dehissence looks much better no pain on palpation wound granulating with wet to dry dressing changes Neurological exam: PRESENT: alert, awake, oriented to person, oriented to place Psychiatric exam: PRESENT: appropriate affect Skin exam: PRESENT: dry Results Laboratory Results: 08/02/19 07:55 08/04/19 17:27 08/04/19 17:27 Creatinine 0.72 Est GFR ( Amer) > 60 Impressions: Chest X-Ray 08/02/19 00:00 IMPRESSION: NO ACUTE RADIOGRAPHIC FINDING IN THE CHEST. Assessment & Plan - Time Time Spent with patient: 35 or more minutes - Plan Summary Plan Summary: left bka stump dehissence looks much better no pain on palpation wound granulating with wet to dry dressing changes as discussed iwth Dr Parks, pt can be discharged from surgical standpt with bid wet to dry dressing changes with normal saline. pt can f/u in wound clinic next wk or in surgery clinic. please reconsult surgery as necessary.
[2019-08-05] MEDS: INSULIN LISPRO 100 UNIT/ML 3 ML VIAL SUBCUT SCH ×4 (08:37→21:22)
[2019-08-05] MEDS: POTASSIUM CHLORIDE 10 MEQ TABLET.ER PO SCH (09:27)
[2019-08-05] MEDS: DOCUSATE SODIUM 100 MG CAPSULE PO SCH (09:27)
[2019-08-05] MEDS: SITAGLIPTIN PHOSPHATE 50 MG TABLET PO SCH (09:27)
[2019-08-05] MEDS: METOPROLOL SUCCINATE 50 MG TAB.SR.24H PO SCH ×2 (09:28→21:19)
[2019-08-05] MEDS: BUSPIRONE HCL 10 MG TABLET PO SCH ×2 (09:28→21:19)
[2019-08-05] MEDS: SERTRALINE HCL 50 MG TABLET PO SCH (09:28)
[2019-08-05] MEDS: GABAPENTIN 300 MG CAPSULE PO SCH ×2 (09:28→21:19)
[2019-08-05] MEDS: ASPIRIN 81 MG TABLET, ENT COATED PO SCH (09:28)
[2019-08-05] MEDS: CHLORTHALIDONE 25 MG TABLET PO SCH (09:29)
[2019-08-05] MEDS: FUROSEMIDE 40 MG TABLET PO SCH (09:29)
[2019-08-05] MEDS: POLYETHYLENE GLYCOL 3350 POWDER 17 GM/1 PACKET PO SCH (09:29)
[2019-08-05] MEDS: INSULIN GLARGINE,HUM.REC.ANLOG 1,000 UNIT/10 ML VIAL SUBCUT SCH ×2 (09:30→21:22)
[2019-08-05] MEDS: RANOLAZINE 500 MG TAB.SR.12H PO SCH ×2 (09:33→21:23)
[2019-08-05 10:25] LABS: ANION GAP 7 (5-19); BLOOD UREA NITROGEN 15 mg/dL (7-20); C-REACTIVE PROTEIN 38.4 mg/L (<10.0); CALCIUM 9.3 mg/dL (8.4-10.2); CARBON DIOXIDE 28 mmol/L (22-30); CHLORIDE 103 mmol/L (98-107); GLUCOSE 199 mg/dL (75-110); POTASSIUM 4.7 mmol/L (3.6-5.0)
[2019-08-05 10:28] LABS: HEMATOCRIT 32.7 % (36.0-47.0); HEMOGLOBIN 9.9 g/dL (12.0-15.5); MEAN CORPUSCULAR HEMOGLOBIN 22.7 pg (27.0-33.4); MEAN CORPUSCULAR HGB CONC 30.2 g/dL (32.0-36.0); MEAN CORPUSCULAR VOLUME 75 fl (80-97); PLATELET COUNT 426 10^3/uL (150-450); RED BLOOD COUNT 4.35 10^6/uL (3.72-5.28)
[2019-08-05 11:05] LABS: ERYTHROCYTE SEDIMENTATION RATE 83 mm/hr (0-30)
[2019-08-05 11:08] LABS: ABSOLUTE LYMPHOCYTES# (MANUAL) 1.2 10^3/uL (0.5-4.7); ABSOLUTE MONOCYTES # (MANUAL) 0.8 10^3/uL (0.1-1.4); BASOPHILS % (MANUAL) 0 % (0-2); EOSINOPHILS % (MANUAL) 1 % (0-6); LYMPHOCYTES % (MANUAL) 3 % (13-45); MONOCYTES % (MANUAL) 2 % (3-13); SEGMENTED NEUTROPHILS % (MAN) 94 % (42-78); TOTAL CELLS COUNTED 100
[2019-08-05 11:10] LABS: ANISOCYTOSIS 3+; HYPOCHROMASIA 1+; PLATELET COMMENT ADEQUATE; PLATELET GIANT PRESENT; POLYCHROMASIA SLIGHT
[2019-08-05 11:12] LABS: WHITE BLOOD COUNT 40.1 10^3/uL (4.0-10.5)
[2019-08-05] MEDS ORDERED: METOPROLOL TARTRATE PF/INJ 5 MG/5 ML SDV IV PRN (11:19)
[2019-08-05] MEDS: ACETAMINOPHEN 325 MG TABLET PO PRN (11:35)
--- NOTE | 2019-08-05 12:07 | EKG REPORT ---
SEVERITY:- BORDERLINE ECG - SINUS TACHYCARDIA BORDERLINE R WAVE PROGRESSION, ANTERIOR LEADS : Confirmed by: Seble Miguel MD 05-Aug-2019 12:06:34
[2019-08-05] MEDS: NORMAL SALINE 1000 ML 1,000 ML IV PRN (13:01)
--- NOTE | 2019-08-05 13:53 | RADIOLOGY REPORT (SQ) ---
EXAM DESCRIPTION: CT LT LOWER EXTREMITY WITHOUT COMPLETED DATE/TIME: 08/05/2019 1:29 pm REASON FOR STUDY: chronic non healing stump wound, assess for osteo COMPARISON: None. TECHNIQUE: Axial imaging performed through the Left BKA with reformatted coronal and sagittal imaging windowed for bone and soft tissues. Images saved to PAC S. 3D IMAGING: Were 3D images as MIP, SSD, or volume rendering performed at the work station? No. LIMITATIONS: None. FINDINGS: SOFT TISSUES: No abscess or foreign body. BONY STRUCTURES: No abscess or periosteal reaction. MINERALIZATION: Normal. OTHER: No other significant finding. IMPRESSION: No evidence of osteomyelitis. Reading location - IP/workstation name: [email or web address]
--- NOTE | 2019-08-05 15:50 | PDOC PROGRESS REPORT ---
Subjective Progress Note for:: 08/05/19 Subjective:: This is an 84-year-old female who underwent left below-knee amputation in May. She follow-up with surgery clinic yesterday and was noted to have a wound dehiscence hence was sent to the hospital for admission. She underwent excisional debridement by surgery yesterday. 07/31: She denies acute complaints upon encounter. She is AO x 3. There is erythema on the site of dehiscence but no discharge. 08/01: No acute event overnight. Denies acute complaints. Surgery evaluated her this morning and recommends possible I&D vs possible revision. 08/02: Patient apparently had episodes of hypotension yesterday afternoon. Blood pressures this morning running in the low normal end. Her creatinine did trend up to 1.5. Potassium trended down this morning. Recommend to hold off on surgery today. 08/03: No issues overnight. Blood pressures have improved. Creatinine has trended back to normal. Hypokalemia was corrected. She appears more awake and conversant today. She says she feels better today. She denies chest pain or shortness of breath. Evaluated by surgery this morning. There is slight improvement in the erythema around the dehisced wound. 08/04: No acute event overnight. Wound shows improvement in terms of erythema and tenderness with IV antibiotics. She says she feels better today. Denies chest pain or shortness of breath. Wound cultures growing gram-positive cocci. Discussed with surgery again today. She does not need further surgery at this time. 08/05: No acute issues. Stump wound shows improvement with antibiotics. Wound culture grew MRSA. She has been cleared for discharge by surgery. Patient will be discharged back to [facility]. Reason For Visit: DEHISCED LEFT BKA INCISION Physical Exam Vital Signs: Temp Pulse Resp BP Pulse Ox 98.5 F 120 H 16 128/59 H 94 08/05/19 08:00 08/05/19 08:00 08/05/19 08:00 08/05/19 08:00 08/05/19 08:00 Intake & Output 08/04/19 08/05/19 08/06/19 06:59 06:59 06:59 Intake Total 3192 1982 Output Total 3301 4182 Balance -109 -2200 Weight 149 lb 4.047 oz 149 lb 7.574 oz General appearance: PRESENT: no acute distress, well-developed, well-nourished Head exam: PRESENT: atraumatic, normocephalic Eye exam: PRESENT: conjunctiva pink, EOMI, PERRLA. ABSENT: scleral icterus Ear exam: PRESENT: normal external ear exam Mouth exam: PRESENT: moist, tongue midline Neck exam: ABSENT: carotid bruit, JVD, lymphadenopathy, thyromegaly Respiratory exam: PRESENT: clear to auscultation carmen. ABSENT: rales, rhonchi, wheezes Cardiovascular exam: PRESENT: RRR. ABSENT: diastolic murmur, rubs, systolic murmur Pulses: PRESENT: normal dorsalis pedis pul GI/Abdominal exam: PRESENT: normal bowel sounds, soft. ABSENT: distended, guarding, mass, organolmegaly, rebound, tenderness Rectal exam: PRESENT: deferred Neurological exam: PRESENT: alert, awake, oriented to person, oriented to place, CN II-XII grossly intact. ABSENT: motor sensory deficit Results Laboratory Results: 08/05/19 09:50 08/04/19 08/05/19 17:27 09:50 Sodium 138.2 Potassium 4.7 Chloride 103 Carbon Dioxide 28 Anion Gap 7 BUN 15 Creatinine 0.72 0.66 Est GFR ( Amer) > 60 > 60 Glucose 199 H Calcium 9.3 C-Reactive Protein 38.4 H Impressions: Chest X-Ray 08/02/19 00:00 IMPRESSION: NO ACUTE RADIOGRAPHIC FINDING IN THE CHEST. Assessment and Plan - Diagnosis (1) Wound dehiscence Is this a current diagnosis for this admission?: Yes Plan: 07/31: S/P excisional debridement by alberta yesterday. Surgery does not recommend antibiotic therapy at this time. 08/01: Surgery evaluated her this morning and recommends possible I&D vs possible revision. 08/02: There is erythema around the edges of the stump, no purulent discharge on dehesced wound. Her WBC is an unreliable indicator due to her CLL. She did have elevated CRP, ESR and lactic acid. Started patient on IV antibiotics. Will consult ID for further recommendations. 08/03: Will pursue an MRI. 08/04: Wound shows improvement in terms of erythema and tenderness with IV antibiotics. Discussed with surgery again today. She does not need further surgery at this time. 08/05: CT did not show any osteomyelitis. Stump wound shows improvement with antibiotics. Wound culture grew MRSA. She has been cleared for discharge by surgery. Patient will be discharged back to [facility]. (2) Hypokalemia Is this a current diagnosis for this admission?: Yes Plan: Repleted. (3) IMANI (acute kidney injury) Is this a current diagnosis for this admission?: Yes Plan: 07/31: Start normal saline at 75 cc/hr. 08/01: Resolving with IV fluids. 08/02: Creatinine trended up again likely due to episodes of hypotension. Antihypertensives held. 08/03: Resolved with IV fluids. Creatinine back to baseline. Reduce IV fluids to 50 cc/hr. (4) Hypertension Qualifiers: Hypertension type: essential hypertension Qualified Code(s): I10 - Essential (primary) hypertension Is this a current diagnosis for this admission?: Yes Plan: Blood pressures running on the low normal end. (5) CAD (coronary artery disease) Qualifiers: Coronary Disease-Associated Artery/Lesion type: [place] artery [place] vs. transplanted heart: [place] heart Associated angina: without angina Qualified Code(s): I25.10 - Atherosclerotic heart disease of [place] coronary artery without angina pectoris Is this a current diagnosis for this admission?: Yes (6) Myelodysplasia (myelodysplastic syndrome) Is this a current diagnosis for this admission?: Yes - Plan Summary Summary: 07/30/2019-the dehisced area will be addressed. The patient can follow-up with the wound care clinic as the dehiscence should not need any major surgical intervention. No antibiotics at this time however if the patient is febrile and there is erythema and drainage antibiotics will be initiated. We will institute gentle IV fluids for the acute kidney injury. - Time Time Spent with patient: 25-34 minutes
[2019-08-05] MEDS: TRAZODONE HCL 50 MG TABLET PO SCH (21:18)
[2019-08-05] MEDS: ATORVASTATIN CALCIUM 40 MG TABLET PO SCH (21:21)
[2019-08-06] MEDS: HYDROXYZINE PAMOATE 25 MG CAPSULE PO SCH ×3 (05:14→22:25)
[2019-08-06] MEDS: CEFEPIME 1 GM/D5W RTU 1 GM/50 ML RTUPB IV SCH (05:14)
[2019-08-06] MEDS: PANTOPRAZOLE SODIUM 40 MG TABLET.DR PO SCH (05:14)
[2019-08-06] MEDS: HEPARIN SOD (PORCINE) 5,000 UNIT/ML 1 ML VIAL SUBCUT SCH ×3 (05:14→22:21)
[2019-08-06] MEDS: INSULIN LISPRO 100 UNIT/ML 3 ML VIAL SUBCUT SCH ×4 (07:51→22:24)
[2019-08-06] MEDS: TRAMADOL HCL 50 MG TABLET PO PRN ×2 (07:58→17:50)
--- NOTE | 2019-08-06 08:19 | PDOC DISCHARGE SUMMARY ---
<TAWANDA SELF - Last Filed: 08/06/19 08:19> Impression - Admit/DC Date/PCP Admission Date/Primary Care Provider: 07/30/19 15:00 SOFI GUERRIER MD Discharge Date: 08/06/19 - Discharge Diagnosis (1) Wound dehiscence Is this a current diagnosis for this admission?: Yes (2) Hypokalemia Is this a current diagnosis for this admission?: Yes (3) IMANI (acute kidney injury) Is this a current diagnosis for this admission?: Yes (4) Hypertension Is this a current diagnosis for this admission?: Yes (5) CAD (coronary artery disease) Is this a current diagnosis for this admission?: Yes (6) Myelodysplasia (myelodysplastic syndrome) Is this a current diagnosis for this admission?: Yes - Assessment Summary: 07/30/2019-the dehisced area will be addressed. The patient can follow-up with the wound care clinic as the dehiscence should not need any major surgical intervention. No antibiotics at this time however if the patient is febrile and there is erythema and drainage antibiotics will be initiated. We will institute gentle IV fluids for the acute kidney injury. - Additional Information Resuscitation Status: Do Not Resuscitate Referrals: [facility] [Outside] LIA MERCADO MD [ACTIVE STAFF] - 08/17/19 1:00 pm (07/30 LEFT BKA) Prescriptions: Sulfamethoxazole/Trimethoprim [Bactrim Ds Tablet] 1 each PO BID 7 Days #14 tablet Furosemide [Lasix 20 mg Tablet] 20 mg PO QAM #30 tablet Gabapentin [Neurontin 300 mg Capsule] 300 mg PO Q12 PRN #30 capsule PRN Reason: Home Medications: Acetaminophen [Tylenol 325 mg Tablet] 650 mg PO Q4HP PRN 07/31/19 Ascorbic Acid [Vitamin C 500 mg Tablet] 500 mg PO DAILY 07/31/19 Aspirin [Ecotrin 81 mg EC Tablet] 81 mg PO DAILY 07/31/19 Buspirone HCl [Buspar 15 mg Tablet] 1 tab PO BID 07/31/19 Clopidogrel Bisulfate [Plavix 75 mg Tablet] 75 mg PO DAILY 07/31/19 Docusate Sodium [Colace 100 mg Capsule] 100 mg PO DAILY 07/31/19 Gabapentin [Neurontin 300 mg Capsule] 300 mg PO Q12 07/31/19 Hydrocodone/Acetaminophen [[place] 5-325 mg Tablet] 1 tab PO Q6HP PRN 07/31/19 Hydroxyzine HCl [Atarax 25 mg Tablet] 1 tab PO Q8HP PRN 07/31/19 Insulin Detemir [Levemir Insulin 100 units/mL Insulin Pen] 22 unit SUBCUT DAILY 07/31/19 Insulin Detemir [Levemir Insulin 100 units/mL Insulin Pen] 25 unit SUBCUT QHS 07/31/19 Loperamide HCl [Imodium 2 mg Capsule] 2 mg PO Q6HP PRN 07/31/19 Metoprolol Succinate [Toprol Xl 50 mg Tab.sr] 50 mg PO Q12 07/31/19 Mirtazapine [Remeron 15 mg Tablet] 7.5 mg PO ACSUPPER 07/31/19 Multivitamin/Iron/Folic Acid [Cerovite Advanced Form Tab] 1 each PO DAILY 07/31/19 Mupirocin [Bactroban 2% Ointment 22 gm] 1 applic TP BID 07/31/19 Nitroglycerin [Nitrostat 0.4 mg (1/150 Gr) Tabs 25/Bottle] 1 tab SL Q5MP PRN 07/31/19 Nystatin [Mycostatin Topical Powder 15 gm] 1 applic TP BID 07/31/19 Ondansetron HCl [Zofran 4 mg Tablet] 1 tab PO Q8HP PRN 07/31/19 Pantoprazole Sodium [Protonix [address] Tablet] 40 mg PO Q6AM 07/31/19 Rosuvastatin Calcium [Crestor] 40 mg PO QHS 07/31/19 Sennosides/Docusate Sodium [Senna Plus 8.6-50 mg Tablet] 1 each PO DAILYP PRN 07/31/19 Sertraline HCl [Zoloft] 25 mg PO DAILY 07/31/19 Sitagliptin Phosphate [Januvia 50 mg Tablet] 50 mg PO DAILY 07/31/19 Trazodone HCl [Desyrel 50 mg Tablet] 50 mg PO QHS 07/31/19 Furosemide [Lasix 20 mg Tablet] 20 mg PO QAM #30 tablet 08/05/19 Gabapentin [Neurontin 300 mg Capsule] 300 mg PO Q12 PRN #30 capsule 08/05/19 Polyethylene Glycol 3350 [Miralax Powder 17 gm/Packet] 1 packet PO DAILY PRN #0 08/05/19 Potassium Chloride [Klor-Con M20] 20 meq PO DAILY #30 08/05/19 Ranolazine [Ranexa 500 mg Tab.sr] 250 mg PO Q12 #0 08/05/19 Sulfamethoxazole/Trimethoprim [Bactrim Ds Tablet] 1 each PO BID 7 Days #14 tablet 08/05/19 History of Present Illiness History of Present Illness: Admitting hospitalist's H&P: ORACIO PEDROZA is a 84 year old female who underwent left below-knee amputation in May. She was seen in the outpatient surgical office today. There is wound dehiscence and concern for infection and so she was sent as a direct admission to the hospitalist service. She is a permanent resident at [facility]. Hospital Course Hospital Course: This is an 84-year-old female who underwent left below-knee amputation in May. She follow-up with surgery clinic yesterday and was noted to have a wound dehiscence hence was sent to the hospital for admission. She underwent excisional debridement by surgery on 07/30. She was reassessed by surgery and was deeemed to require a repeat I&D and possible AKA. She did have IMANI which resolved with IV fluids. Her home antihypertensive regimen was adjusted as her blood pressures were running on the low normal end. Her Lasix was decreased to 20 mg daily and Ranexa decreased to 250 mg bid. She was started on IV antibiotics and the wound showed significant improvement with antibiotics. She was reassessed by surgicalist who deem she does not need any further surgical intervention. Wound culture grew MRSA. She will be discharged on PO Bactrim. She will closely follow up with the surgery clinic for reassessment of her wound healing. Physical Exam Vital Signs: Temp Pulse Resp BP Pulse Ox 98.4 F 96 17 134/52 H 91 L 08/05/19 23:45 08/06/19 02:00 08/05/19 23:45 08/05/19 23:45 08/05/19 23:45 Intake & Output 08/05/19 08/06/19 08/07/19 06:59 06:59 06:59 Intake Total 2982 1057 Output Total 1009 7355 Balance -1200 -693 Weight 149 lb 7.574 oz 151 lb 10.848 oz General appearance: PRESENT: no acute distress, well-developed, well-nourished Head exam: PRESENT: atraumatic, normocephalic Eye exam: PRESENT: conjunctiva pink, EOMI, PERRLA. ABSENT: scleral icterus Ear exam: PRESENT: normal external ear exam Mouth exam: PRESENT: moist, tongue midline Neck exam: ABSENT: carotid bruit, JVD, lymphadenopathy, thyromegaly Respiratory exam: PRESENT: clear to auscultation carmen. ABSENT: rales, rhonchi, wheezes Cardiovascular exam: PRESENT: RRR. ABSENT: diastolic murmur, rubs, systolic murmur Pulses: PRESENT: normal dorsalis pedis pul GI/Abdominal exam: PRESENT: normal bowel sounds, soft. ABSENT: distended, guarding, mass, organolmegaly, rebound, tenderness Rectal exam: PRESENT: deferred Extremities exam: PRESENT: other - wound stump singificantly less erythematous Neurological exam: PRESENT: alert, awake, oriented to person, oriented to place, CN II-XII grossly intact. ABSENT: motor sensory deficit Results Laboratory Results: WBC 40.1 10^3/uL (4.0-10.5) H* 08/05/19 09:50 RBC 4.35 10^6/uL (3.72-5.28) 08/05/19 09:50 Hgb 9.9 g/dL (12.0-15.5) L 08/05/19 09:50 Hct 32.7 % (36.0-47.0) L 08/05/19 09:50 MCV 75 fl (80-97) L 08/05/19 09:50 MCH 22.7 pg (27.0-33.4) L 08/05/19 09:50 MCHC 30.2 g/dL (32.0-36.0) L 08/05/19 09:50 RDW 21.0 % (11.5-14.0) H 08/05/19 09:50 Plt Count 426 10^3/uL (150-450) 08/05/19 09:50 Lymph % (Auto) Not Reportable 08/05/19 09:50 Schley % (Auto) Not Reportable 08/05/19 09:50 Eos % (Auto) Not Reportable 08/05/19 09:50 Baso % (Auto) Not Reportable 08/05/19 09:50 Absolute Neuts (auto) Not Reportable 08/05/19 09:50 Absolute Lymphs (auto) Not Reportable 08/05/19 09:50 Absolute Monos (auto) Not Reportable 08/05/19 09:50 Absolute Eos (auto) Not Reportable 08/05/19 09:50 Absolute Basos (auto) Not Reportable 08/05/19 09:50 Total Counted 100 08/05/19 09:50 Seg Neutrophils % Not Reportable 08/05/19 09:50 Seg Neuts % (Manual) 94 % (42-78) H 08/05/19 09:50 Band Neutrophils % 1 % (3-5) L 08/02/19 07:55 Lymphocytes % (Manual) 3 % (13-45) L 08/05/19 09:50 Atypical Lymphs % 1 % (0) 08/02/19 07:55 Monocytes % (Manual) 2 % (3-13) L 08/05/19 09:50 Eosinophils % (Manual) 1 % (0-6) 08/05/19 09:50 Basophils % (Manual) 0 % (0-2) 08/05/19 09:50 Abs Neuts (Manual) 37.7 10^3/uL (1.7-8.2) H 08/05/19 09:50 Abs Lymphs (Manual) 1.2 10^3/uL (0.5-4.7) 08/05/19 09:50 Abs Monocytes (Manual) 0.8 10^3/uL (0.1-1.4) 08/05/19 09:50 Absolute Eos (Manual) 0.4 10^3/uL (0.0-0.6) 08/05/19 09:50 Abs Basophils (Manual) 0.0 10^3/uL (0.0-0.2) 08/05/19 09:50 Toxic Granulation SLIGHT 08/01/19 03:59 Toxic Vacuolation PRESENT 08/02/19 07:55 Dohle Bodies PRESENT 08/02/19 07:55 Large Platelets PRESENT 08/01/19 03:59 Giant Platelets PRESENT 08/05/19 09:50 Platelet Comment ADEQUATE 08/05/19 09:50 Polychromasia SLIGHT 08/05/19 09:50 Hypochromasia 1+ 08/05/19 09:50 Poikilocytosis SLIGHT 08/01/19 03:59 Basophilic Stippling PRESENT 08/02/19 07:55 Anisocytosis 3+ 08/05/19 09:50 Microcytosis 1+ 08/05/19 09:50 Tear Drop Cells SLIGHT 08/01/19 03:59 Ovalocytes SLIGHT 08/01/19 03:59 Stomatocytes 1+ 08/02/19 07:55 Mary Cells SLIGHT 08/01/19 03:59 ESR 83 mm/hr (0-30) H 08/05/19 09:50 Sodium 138.2 mmol/L (137-145) 08/05/19 09:50 Potassium 4.7 mmol/L (3.6-5.0) 08/05/19 09:50 Chloride 103 mmol/L (98-107) 08/05/19 09:50 Carbon Dioxide 28 mmol/L (22-30) 08/05/19 09:50 Anion Gap 7 (5-19) 08/05/19 09:50 BUN 15 mg/dL (7-20) 08/05/19 09:50 Creatinine 0.66 mg/dL (0.52-1.25) 08/05/19 09:50 Est GFR ( Amer) > 60 (>60) 08/05/19 09:50 Est GFR (MDRD) Non-Af > 60 (>60) 08/05/19 09:50 Glucose 199 mg/dL (75-110) H 08/05/19 09:50 POC Glucose 184 mg/dL (70-110) H 08/06/19 06:14 Hemoglobin A1c % 7.7 % (4.7-6.0) H 08/05/19 09:50 Lactic Acid 1.7 mmol/L (0.7-2.1) 08/02/19 07:55 Calcium 9.3 mg/dL (8.4-10.2) 08/05/19 09:50 Magnesium 1.8 mg/dL (1.6-2.3) 08/02/19 07:55 Total Bilirubin 1.4 mg/dL (0.2-1.3) H 08/02/19 07:55 Direct Bilirubin 0.7 mg/dL (0.0-0.4) H 08/02/19 07:55 Neonat Total Bilirubin Not Reportable 08/02/19 07:55 Neonat Direct Bilirubin Not Reportable 08/02/19 07:55 Neonat Indirect Bili Not Reportable 08/02/19 07:55 AST 25 U/L (14-36) 08/02/19 07:55 ALT 9 U/L (<35) 08/02/19 07:55 Alkaline Phosphatase 272 U/L (38-126) H 08/02/19 07:55 C-Reactive Protein 38.4 mg/L (<10.0) H 08/05/19 09:50 Total Protein 6.8 g/dL (6.3-8.2) 08/02/19 07:55 Albumin 2.6 g/dL (3.5-5.0) L 08/02/19 07:55 Time Trough Drawn 1703 08/04/19 17:03 Vancomycin Trough 29.0 ug/mL (5.0-20.0) H 08/04/19 17:03 Impressions: Chest X-Ray 07/31/19 16:12 IMPRESSION: NO ACUTE RADIOGRAPHIC FINDING IN THE CHEST. Chest X-Ray 08/02/19 00:00 IMPRESSION: NO ACUTE RADIOGRAPHIC FINDING IN THE CHEST. Lower Extremity CT 08/05/19 11:03 IMPRESSION: No evidence of osteomyelitis. Stroke Is this a Stroke Patient?: No Acute Heart Failure - Is this a Heart Failure Patient?: No <DARI BARGER JR - Last Filed: 08/07/19 15:05> Impression - Admit/DC Date/PCP Admission Date/Primary Care Provider: 07/30/19 15:00 SOFI GUERRIER MD Discharge Date: 08/07/19 History of Present Illiness History of Present Illness: ORACIO PEDROZA is a 84 year old female Physical Exam Vital Signs: Temp Pulse Resp BP Pulse Ox 98.3 F 90 23 H 104/44 L 99 08/07/19 10:57 08/07/19 10:57 08/07/19 10:57 08/07/19 10:57 08/07/19 10:57 Intake & Output 08/06/19 08/07/19 08/08/19 06:59 06:59 06:59 Intake Total 1057 2210 Output Total 1750 3500 Balance -693 -1290 Weight 68.8 kg 69.1 kg Results Laboratory Results: WBC 40.1 10^3/uL (4.0-10.5) H* 08/05/19 09:50 RBC 4.35 10^6/uL (3.72-5.28) 08/05/19 09:50 Hgb 9.9 g/dL (12.0-15.5) L 08/05/19 09:50 Hct 32.7 % (36.0-47.0) L 08/05/19 09:50 MCV 75 fl (80-97) L 08/05/19 09:50 MCH 22.7 pg (27.0-33.4) L 08/05/19 09:50 MCHC 30.2 g/dL (32.0-36.0) L 08/05/19 09:50 RDW 21.0 % (11.5-14.0) H 08/05/19 09:50 Plt Count 426 10^3/uL (150-450) 08/05/19 09:50 Lymph % (Auto) Not Reportable 08/05/19 09:50 Schley % (Auto) Not Reportable 08/05/19 09:50 Eos % (Auto) Not Reportable 08/05/19 09:50 Baso % (Auto) Not Reportable 08/05/19 09:50 Absolute Neuts (auto) Not Reportable 08/05/19 09:50 Absolute Lymphs (auto) Not Reportable 08/05/19 09:50 Absolute Monos (auto) Not Reportable 08/05/19 09:50 Absolute Eos (auto) Not Reportable 08/05/19 09:50 Absolute Basos (auto) Not Reportable 08/05/19 09:50 Total Counted 100 08/05/19 09:50 Seg Neutrophils % Not Reportable 08/05/19 09:50 Seg Neuts % (Manual) 94 % (42-78) H 08/05/19 09:50 Band Neutrophils % 1 % (3-5) L 08/02/19 07:55 Lymphocytes % (Manual) 3 % (13-45) L 08/05/19 09:50 Atypical Lymphs % 1 % (0) 08/02/19 07:55 Monocytes % (Manual) 2 % (3-13) L 08/05/19 09:50 Eosinophils % (Manual) 1 % (0-6) 08/05/19 09:50 Basophils % (Manual) 0 % (0-2) 08/05/19 09:50 Abs Neuts (Manual) 37.7 10^3/uL (1.7-8.2) H 08/05/19 09:50 Abs Lymphs (Manual) 1.2 10^3/uL (0.5-4.7) 08/05/19 09:50 Abs Monocytes (Manual) 0.8 10^3/uL (0.1-1.4) 08/05/19 09:50 Absolute Eos (Manual) 0.4 10^3/uL (0.0-0.6) 08/05/19 09:50 Abs Basophils (Manual) 0.0 10^3/uL (0.0-0.2) 08/05/19 09:50 Toxic Granulation SLIGHT 08/01/19 03:59 Toxic Vacuolation PRESENT 08/02/19 07:55 Dohle Bodies PRESENT 08/02/19 07:55 Large Platelets PRESENT 08/01/19 03:59 Giant Platelets PRESENT 08/05/19 09:50 Platelet Comment ADEQUATE 08/05/19 09:50 Polychromasia SLIGHT 08/05/19 09:50 Hypochromasia 1+ 08/05/19 09:50 Poikilocytosis SLIGHT 08/01/19 03:59 Basophilic Stippling PRESENT 08/02/19 07:55 Anisocytosis 3+ 08/05/19 09:50 Microcytosis 1+ 08/05/19 09:50 Tear Drop Cells SLIGHT 08/01/19 03:59 Ovalocytes SLIGHT 08/01/19 03:59 Stomatocytes 1+ 08/02/19 07:55 [place] Cells SLIGHT 08/01/19 03:59 ESR 83 mm/hr (0-30) H 08/05/19 09:50 Sodium 138.2 mmol/L (137-145) 08/05/19 09:50 Potassium 4.7 mmol/L (3.6-5.0) 08/05/19 09:50 Chloride 103 mmol/L (98-107) 08/05/19 09:50 Carbon Dioxide 28 mmol/L (22-30) 08/05/19 09:50 Anion Gap 7 (5-19) 08/05/19 09:50 BUN 15 mg/dL (7-20) 08/05/19 09:50 Creatinine 0.66 mg/dL (0.52-1.25) 08/05/19 09:50 Est GFR ( Amer) > 60 (>60) 08/05/19 09:50 Est GFR (MDRD) Non-Af > 60 (>60) 08/05/19 09:50 Glucose 199 mg/dL (75-110) H 08/05/19 09:50 POC Glucose 208 mg/dL (70-110) H 08/07/19 10:57 Hemoglobin A1c % 7.7 % (4.7-6.0) H 08/05/19 09:50 Lactic Acid 1.7 mmol/L (0.7-2.1) 08/02/19 07:55 Calcium 9.3 mg/dL (8.4-10.2) 08/05/19 09:50 Magnesium 1.8 mg/dL (1.6-2.3) 08/02/19 07:55 Total Bilirubin 1.4 mg/dL (0.2-1.3) H 08/02/19 07:55 Direct Bilirubin 0.7 mg/dL (0.0-0.4) H 08/02/19 07:55 Neonat Total Bilirubin Not Reportable 08/02/19 07:55 Neonat Direct Bilirubin Not Reportable 08/02/19 07:55 Neonat Indirect Bili Not Reportable 08/02/19 07:55 AST 25 U/L (14-36) 08/02/19 07:55 ALT 9 U/L (<35) 08/02/19 07:55 Alkaline Phosphatase 272 U/L (38-126) H 08/02/19 07:55 C-Reactive Protein 38.4 mg/L (<10.0) H 08/05/19 09:50 Total Protein 6.8 g/dL (6.3-8.2) 08/02/19 07:55 Albumin 2.6 g/dL (3.5-5.0) L 08/02/19 07:55 Time Trough Drawn 1703 08/04/19 17:03 Vancomycin Trough 29.0 ug/mL (5.0-20.0) H 08/04/19 17:03 Impressions: Chest X-Ray 07/31/19 16:12 IMPRESSION: NO ACUTE RADIOGRAPHIC FINDING IN THE CHEST. Chest X-Ray 08/02/19 00:00 IMPRESSION: NO ACUTE RADIOGRAPHIC FINDING IN THE CHEST. Lower Extremity CT 08/05/19 11:03 IMPRESSION: No evidence of osteomyelitis. Chest X-Ray 08/06/19 00:00 IMPRESSION: CHF. Chest X-Ray 08/07/19 08:00 IMPRESSION: Enlarged cardiac silhouette without overt pulmonary edema. Ill-defined left retrocardiac opacity, similar to prior and possibly atelectasis or infection. Likely small left effusion.
[2019-08-06] MEDS: INSULIN GLARGINE,HUM.REC.ANLOG 1,000 UNIT/10 ML VIAL SUBCUT SCH ×2 (09:44→22:23)
[2019-08-06] MEDS: POLYETHYLENE GLYCOL 3350 POWDER 17 GM/1 PACKET PO SCH (09:46)
[2019-08-06] MEDS: CHLORTHALIDONE 25 MG TABLET PO SCH (09:47)
[2019-08-06] MEDS: BUSPIRONE HCL 10 MG TABLET PO SCH ×2 (09:51→22:22)
[2019-08-06] MEDS: GABAPENTIN 300 MG CAPSULE PO SCH ×2 (09:51→22:22)
[2019-08-06] MEDS: POTASSIUM CHLORIDE 10 MEQ TABLET.ER PO SCH (09:51)
[2019-08-06] MEDS: SITAGLIPTIN PHOSPHATE 50 MG TABLET PO SCH (09:52)
[2019-08-06] MEDS: DOCUSATE SODIUM 100 MG CAPSULE PO SCH (09:52)
[2019-08-06] MEDS: FUROSEMIDE 40 MG TABLET PO SCH (09:52)
[2019-08-06] MEDS: SERTRALINE HCL 50 MG TABLET PO SCH (09:52)
[2019-08-06] MEDS: ASPIRIN 81 MG TABLET, ENT COATED PO SCH (09:53)
[2019-08-06] MEDS: METOPROLOL SUCCINATE 25 MG TAB.SR.24H PO SCH ×2 (09:53→22:21)
--- NOTE | 2019-08-06 10:52 | RADIOLOGY REPORT (SQ) ---
EXAM DESCRIPTION: CHEST SINGLE VIEW COMPLETED DATE/TIME: 08/06/2019 10:28 am REASON FOR STUDY: decreased 02 saturation COMPARISON: 08/02/2019 EXAM PARAMETERS: NUMBER OF VIEWS: One view. TECHNIQUE: Single frontal radiographic view of the chest acquired. RADIATION DOSE: NA LIMITATIONS: Body habitus. Portable technique. FINDINGS: LUNGS AND PLEURA: Diffuse interstitial edema. No large effusions. MEDIASTINUM AND HILAR STRUCTURES: Stable. HEART AND VASCULAR STRUCTURES: Cardiomegaly. Vascular congestion. BONES: No acute findings. HARDWARE: child monitor. OTHER: No other significant finding. IMPRESSION: CHF. TECHNICAL DOCUMENTATION: JOB ID: [id number] [employer]- All Rights Reserved Reading location - IP/workstation name: [email or web address]
[2019-08-06] MEDS: FUROSEMIDE INJ/PF 20 MG/2 ML SDV IV SCH ×2 (12:40→22:22)
[2019-08-06] MEDS: ACETAMINOPHEN 325 MG TABLET PO PRN (13:24)
--- NOTE | 2019-08-06 16:21 | Progress Note ---
Provider Note Provider Note: Discharge deferred as later this morning, patient's resting O2 sat went down to 88%. She denies shortness of breath or chest pain. However, chest x-ray was done which showed new pulmonary congestion. Note that patient's Lasix was held a few days ago when she developed IMANI and hypotension. She was started on caut ious hydration with normal saline at 50 cc/hr. as she developed congestion from holding Lasix and IV fluids. Will have patient on IV Lasix 20 every 12. Will repeat chest x-ray for tomorrow morning.
[2019-08-06] MEDS ORDERED: VANCOMYCIN HCL 750 MG in DEXTROSE 5%-WATER 250 ML IV SCH (18:00)
[2019-08-06] MEDS: ATORVASTATIN CALCIUM 40 MG TABLET PO SCH (22:22)
[2019-08-06] MEDS: TRAZODONE HCL 50 MG TABLET PO SCH (22:22)
[2019-08-06] MEDS: RANOLAZINE 500 MG TAB.SR.12H PO SCH (22:25)
[2019-08-07] MEDS: HYDROXYZINE PAMOATE 25 MG CAPSULE PO SCH ×2 (05:16→14:22)
[2019-08-07] MEDS: PANTOPRAZOLE SODIUM 40 MG TABLET.DR PO SCH (05:16)
[2019-08-07] MEDS: HEPARIN SOD (PORCINE) 5,000 UNIT/ML 1 ML VIAL SUBCUT SCH ×2 (05:16→14:21)
[2019-08-07] MEDS: INSULIN LISPRO 100 UNIT/ML 3 ML VIAL SUBCUT SCH ×2 (08:01→12:22)
[2019-08-07] MEDS: FUROSEMIDE INJ/PF 20 MG/2 ML SDV IV SCH (09:27)
[2019-08-07] MEDS: DOCUSATE SODIUM 100 MG CAPSULE PO SCH (09:28)
[2019-08-07] MEDS: POLYETHYLENE GLYCOL 3350 POWDER 17 GM/1 PACKET PO SCH (09:28)
[2019-08-07] MEDS: ASPIRIN 81 MG TABLET, ENT COATED PO SCH (09:28)
[2019-08-07] MEDS: BUSPIRONE HCL 10 MG TABLET PO SCH (09:28)
[2019-08-07] MEDS: METOPROLOL SUCCINATE 25 MG TAB.SR.24H PO SCH (09:28)
[2019-08-07] MEDS: POTASSIUM CHLORIDE 10 MEQ TABLET.ER PO SCH (09:28)
[2019-08-07] MEDS: GABAPENTIN 300 MG CAPSULE PO SCH (09:28)
--- NOTE | 2019-08-07 09:28 | RADIOLOGY REPORT (SQ) ---
EXAM DESCRIPTION: CHEST SINGLE VIEW COMPLETED DATE/TIME: 08/07/2019 9:15 am REASON FOR STUDY: fluid evaluation/decreased oxygen saturation COMPARISON: None. EXAM PARAMETERS: NUMBER OF VIEWS: One view. TECHNIQUE: Single frontal radiographic view of the chest acquired. RADIATION DOSE: NA LIMITATIONS: None. FINDINGS: LUNGS AND PLEURA: Ill-defined left retrocardiac opacity with blunting of the costophrenic angle, similar to prior. Likely small left effusion. No pneumothorax. MEDIASTINUM AND HILAR STRUCTURES: No masses. Contour normal. HEART AND VASCULAR STRUCTURES: Enlarged cardiac silhouette, stable. No overt pulmonary edema. BONES: No acute findings. HARDWARE: Loop recorder overlies left chest. OTHER: No other significant finding. IMPRESSION: Enlarged cardiac silhouette without overt pulmonary edema. Ill-defined left retrocardiac opacity, similar to prior and possibly atelectasis or infection. Likel y small left effusion. TECHNICAL DOCUMENTATION: JOB ID: [id number] [employer]- All Rights Reserved Reading location - IP/workstation name: [email or web address]
[2019-08-07] MEDS: RANOLAZINE 500 MG TAB.SR.12H PO SCH (09:29)
[2019-08-07] MEDS: SITAGLIPTIN PHOSPHATE 50 MG TABLET PO SCH (09:29)
[2019-08-07] MEDS: INSULIN GLARGINE,HUM.REC.ANLOG 1,000 UNIT/10 ML VIAL SUBCUT SCH (09:30)
[2019-08-07] MEDS: SERTRALINE HCL 50 MG TABLET PO SCH (09:47)
[2019-08-07] MEDS: ACETAMINOPHEN 325 MG TABLET PO PRN (14:21)
--- NOTE | 2019-08-07 15:07 | Progress Note ---
Provider Note Provider Note: 08/07/2019 Chest x-ray has been reviewed, no sign of acute pulmonary edema, significant pleural effusion. She is medically stable to be discharged back to [facility].
[2019-08-07 15:50] VITALS: BP 133/53
== END 2019-08-07 17:36 | DRG 464 ==
LOC: 4N 13:52 → OBSVTOIN 15:00
PROVIDERS: ADMIT Hospitalist; ATTEND Hospitalist
PROC: 0JBP0ZZ Excision of Left Lower Leg Subcutaneous Tissue and Fascia, Open Approach (ICD-10-PCS; principal; 2019-07-30)
DX: T87.81 Dehiscence of amputation stump (principal); C91.10 Chronic lymphocytic leukemia of B-cell type not having achieved remission; N17.9 Acute kidney failure, unspecified; D46.9 Myelodysplastic syndrome, unspecified; E87.6 Hypokalemia; I48.91 Unspecified atrial fibrillation; I50.9 Heart failure, unspecified; I25.10 Atherosclerotic heart disease of native coronary artery without angina pectoris; I11.0 Hypertensive heart disease with heart failure; K21.9 Gastro-esophageal reflux disease without esophagitis; E11.8 Type 2 diabetes mellitus with unspecified complications; B95.62 Methicillin resistant Staphylococcus aureus infection as the cause of diseases classified elsewhere; F03.90 Unspecified dementia, unspecified severity, without behavioral disturbance, psychotic disturbance, mood disturbance, and anxiety; F32.9 Major depressive disorder, single episode, unspecified; I25.2 Old myocardial infarction; Y83.5 Amputation of limb(s) as the cause of abnormal reaction of the patient, or of later complication, without mention of misadventure at the time of the procedure; Y92.018 Other place in single-family (private) house as the place of occurrence of the external cause; Z66 Do not resuscitate; Z79.01 Long term (current) use of anticoagulants; Z79.82 Long term (current) use of aspirin; Z79.4 Long term (current) use of insulin; Z79.899 Other long term (current) drug therapy
CPT/HCPCS: 36415; 71045; 80048; 80053; 80202; 82565; 82962; 83036; 83605; 83735; 85025; 85027; 85652; 86140; 87040; 87070; 87077; 87186; 87205; 93005; 93010; 93926; G0378; G0379; J0692; J1644; J1815; J1940; J3010; J3370; J3480; J3490; J7030; J7060